=== PATIENT | female | born 1945 | race Caucasian/White ===

== ENCOUNTER → 2018-02-07 10:26 | Outpatient (CLI) | payer MEDICARE, MEDICAID, SELFPAY ==
[2018-02-07 11:43] LABS: Creatine Kinase 62 U/L (26-192)
[2018-02-07 11:50] LABS: Alanine Aminotransferase 19 U/L (12-78); Albumin Level 3.6 gm/dL (3.4-5.0); Albumin/Globulin Ratio 1.1 (1.1-1.8); Alkaline Phosphatase 76 U/L (46-116); Anion Gap 13.5 mEq/L (5-15); Aspartate Amino Transferase 15 U/L (15-37); Bilirubin,Total 0.4 mg/dL (0.2-1.0); Blood Urea Nitrogen 26 mg/dL (7-18); Calcium 8.5 mg/dL (8.5-10.1); Carbon Dioxide 26 mmol/L (21.0-32.0); Chloride 106 mmol/L (98-107); Chol/HDL Ratio 6.1 (1-3.5); Cholesterol 207 mg/dL (140-200); Creatinine,Serum 0.91 mg/dL (0.55-1.02); Estimated Glomerular Filt Rate 61 ml/min (>60); GFR (African American) 73 ML/MIN (>60); Globulin 3.3 gm/dl (1.3-3.2); Glucose 112 mg/dL (74-106); HDL Cholesterol 34 mg/dL (29-89); LDL Cholesterol 143 mg/dL (0-130); Potassium 4.5 mmoL/L (3.5-5.1); Sodium 141 mmol/L (136-145); Total Protein,Serum 6.9 gm/dL (6.4-8.2); Triglycerides 150 mg/dL (30-200); Uric Acid 8.5 mg/dL (2.6-7.2); VLDL Cholesterol 30 mg/dL (0-40)
[2018-02-07 13:13] LABS: Erythrocyte Sedimentation Rate 15 mm/hr (0-30)
[2018-02-08 18:13] LABS: RA Latex Turbid. <10.0 IU/mL (0.0-13.9)
[2018-02-11 09:02] LABS: Antinuclear Antibodies, IFA Negative (.)
== END ==
PROVIDERS: Visit Provider Family Medicine
DX: E03.9 Hypothyroidism, unspecified (principal); I10 Essential (primary) hypertension; M19.90 Unspecified osteoarthritis, unspecified site
CPT/HCPCS: 36415; 80053; 80061; 82550; 84436; 84443; 84550; 85651; 86038; 86431

== ENCOUNTER → 2018-03-10 12:50 | Outpatient (CLI) | payer MEDICARE, MEDICAID, SELFPAY ==
[2018-03-10 13:58] LABS: Basophils % 0.6 % (0.1-2.0); Eosinophils # 0.4 K/mm3 (0.0-0.4); Eosinophils % 7.1 % (0.1-12.0); Hematocrit 39.6 % (37.0-47.0); Hemoglobin 12.5 g/dL (12.2-16.2); Lymphocytes # 1.8 K/mm3 (0.7-4.5); Lymphocytes % 32.2 K/mm3 (10-50); Mean Corpuscular HGB Conc 31.7 g/dL (31.8-35.4); Mean Corpuscular Hemoglobin 26.9 pg (27.0-31.2); Mean Corpuscular Volume 84.8 fl (81-99); Mean Platelet Volume 8.9 fl (7.4-10.4); Monocytes # 0.3 K/mm3 (0.1-1.0); Monocytes % 6.1 % (1.7-9.3); Neutrophils # 2.9 K/mm3 (1.8-7.8); Platelet Count 172 K/mm3 (142-424); Red Blood Count 4.67 M/mm3 (4.20-5.40); Red Cell Distribution Width 16.3 % (11.5-17.5); White Blood Count 5.5 K/mm3 (4.8-10.8)
[2018-03-10 13:59] LABS: Alanine Aminotransferase 23 U/L (12-78); Albumin Level 3.8 gm/dL (3.4-5.0); Albumin/Globulin Ratio 1.2 (1.1-1.8); Alkaline Phosphatase 72 U/L (46-116); Anion Gap 10.7 mEq/L (5-15); Aspartate Amino Transferase 16 U/L (15-37); Bilirubin,Total 0.5 mg/dL (0.2-1.0); Blood Urea Nitrogen 15 mg/dL (7-18); Calcium 9.1 mg/dL (8.5-10.1); Carbon Dioxide 29 mmol/L (21.0-32.0); Chloride 107 mmol/L (98-107); Creatinine,Serum 0.86 mg/dL (0.55-1.02); Estimated Glomerular Filt Rate 65 ml/min (>60); GFR (African American) 78 ML/MIN (>60); Globulin 3.1 gm/dl (1.3-3.2); Glucose 102 mg/dL (74-106); Potassium 4.7 mmoL/L (3.5-5.1); Sodium 142 mmol/L (136-145); Total Protein,Serum 6.9 gm/dL (6.4-8.2)
[2018-03-10 14:54] LABS: Erythrocyte Sedimentation Rate 12 mm/hr (0-30)
[2018-03-11 15:28] LABS: Sjogren's Anti-SS-A <0.2 AI (0.0-0.9)
[2018-03-12 16:50] LABS: Antinuclear Antibodies, IFA Negative (.); RA Latex Turbid. <10.0 IU/mL (0.0-13.9); Sjogren's Anti-SS-B <0.2 AI (0.0-0.9)
== END ==
DX: R68.2 Dry mouth, unspecified (principal); K12.1 Other forms of stomatitis
CPT/HCPCS: 36415; 80053; 85025; 85651; 86038; 86235; 86431

== ENCOUNTER → 2018-11-07 15:35 | Outpatient (CLI) | payer MEDICARE, MEDICAID, SELFPAY ==
--- NOTE | 2018-11-07 15:43 | XR_ITS ---
EXAM: XR lumbar spine min 4V HISTORY: Low back pain ITS.REASON: L LUMBAR RADICULOPATHY ORDERING PHYSICIAN: Ted Matute MD PATIENT AGE: 73 years COMPARISON: 03/03/2009 FINDINGS: Mild levoscoliosis. There is degenerative disc disease from T12 to S1 at every level. Facet arthritic changes are present from L3 to S1. No acute fracture or dislocation evident. No lytic or blastic change. There is mild anterolisthesis of L5 on S1 of 9 mm. 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 IMPRESSION: Levoscoliosis with multilevel degenerative disc disease and facet arthritic change. These degenerative changes have progressed when compared to the previous exam. Tortuous and ectatic calcified splenic artery
--- NOTE | 2018-11-07 15:43 | XR_ITS ---
XR hip LT 2-3V w/pelvis HISTORY: ITS.REASON: L HIP PAIN ORDERING PHYSICIAN: Tde Matute MD PATIENT AGE: 73 years COMPARISON: None FINDINGS: Osteoarthritic changes involving both hips more severe on the right compared to left as seen on the AP view of the pelvis. There is a small sclerotic focus along the left ilium laterally at 10 mm possibly due to bone island. IMPRESSION: 1. No acute finding. 2. Osteoarthritic changes of the hips right more severe than left
== END ==
PROVIDERS: PCP Family Medicine; Visit Provider Family Medicine
DX: M54.16 Radiculopathy, lumbar region (principal)
CPT/HCPCS: 72110; 73502

== ENCOUNTER → 2018-11-20 11:59 | Outpatient (POV) | payer MEDICARE, MEDICAID, SELFPAY | PROVIDERS: Visit Provider Dentist | DX: Z00.00 Encounter for general adult medical examination without abnormal findings (principal) ==

== ENCOUNTER 2019-01-01 10:00 | Outpatient (RCR) | payer MEDICARE, MEDICAID, SELFPAY ==
--- NOTE | 2018-11-19 16:23 | HMH.PTOPEV ---
PT Outpatient Evaluation Rehab PT Outpatient Evaluation Start: 11/19/18 16:03 Freq: Status: Active Protocol: Document 11/19/18 16:03 TRISH (Rec: 11/19/18 16:18 PHORNE [id number]) Electronically Signed By Reno Ann, PT 11/19/18 16:03 Outpatient Therapy Subjective History Subjective History Pt is a 73 yowf with complaints of LBP. Pt reports pain began years ago for seemingly no reason and has gotten worse. Pt reports pain in the low back that shoots into BLEs L>R. Pt states pain is 2/10 at the moment, 2/10 at best and 10/10 at worst. Pain is dull and throbs from the low back into B feet. Pain is increased with all movements and decreased with rest and heat. Past surgeries include hysterectomy, rectal repair, sinus surgery, R TKA, bladder surgery and L knee torn ligament. Comorbidities include RA, osteoarthritis, history of breast cancer, and splenic aneurism. Pt demonstrates pain and swelling in BLEs. Chief Complaint Pain Symptom Type Throb Dull Numbness Symptoms Relieved By Rest/Positioning Heat Symptoms Aggravated By Prone Sitting Standing Bending/Stooping Physical Activity Twisting Walking Lifting Prior Functional Limitations Housework Sleeping Standing Sitting Recreation Activity Walking Stairs Balance Current Functional Limitations Housework Driving Sleeping Standing Sitting Squatting Recreation Activity
== END 2019-01-01 10:05 | disposition home or self-care (01) ==
LOC: PT 10:00
PROVIDERS: Visit Provider Family Medicine
DX: M54.16 Radiculopathy, lumbar region (principal)
CPT/HCPCS: 97010; 97033; 97110; 97140; 97163

== ENCOUNTER → 2019-02-17 12:59 | Outpatient (POV) | payer MEDICARE, MEDICAID, SELFPAY | PROVIDERS: Visit Provider Dermatology | DX: Z00.00 Encounter for general adult medical examination without abnormal findings (principal) ==

== ENCOUNTER → 2019-04-17 06:35 | Outpatient (CLI) | payer MEDICARE, MEDICAID, SELFPAY ==
--- NOTE | 2019-04-17 | CA_ITS ---
APPROVED REPORT Exam: Pharmacologic Technologist: Daya Canales, Ht: 5 ft 3 in Wt: 224 lbs BSA: 2.03 m2 HR: 47 bpm BP: 186/69 mmHg Medical History Medical History: CHEST PAIN,SOA,FATIGUE Medications: DITILAZEM,MOBIC,NADOLOL,LEVOTHYROXINE,ASA,ZYRTEC Allergies: NSAIDS,KEFELX,PAXIL,PCN,REGLAN Cardiac Risk Factors: HTN,FAMILY HX Stress Test Details Test: LEXISCAN HR Resting HR: 46 bpm Max Heart Rate (APMHR): 146 bpm Max HR Achieved: 61 bpm Target HR (85% APMHR): 124 bpm % of APMHR: 41 Recovery HR: 58 bpm BP Resting BP: 183/69 mmHg Max BP: 186/83 mmHg Recovery BP: 162.0/74.0 mmHg ECG Resting ECG: SINUS ANNA Clinical Exercise duration: 04:02 min Highest Stage Achieved: Exercise capacity: 1.0 METs Stress ECG Conclusion LEXISCAN PORTION COMPLETED. C/O STOMACH CRAMPS DURING PEAK INFUSION. NO CHEST PAIN OR SOA. STOMACH CRAMPS RESOLVED IN RECOVERY. OCCASIONAL PVC. OCCASIONAL PAC. LESS THAN 1.5MM ST DEPRESSION. IMAGES TO FOLLOW Electronically signed by : Harshal Alvarez, 04/17/2019 18:00:13
--- NOTE | 2019-04-17 06:42 | NM_ITS ---
APPROVED REPORT Exam: Nuclear Stress Test Indication: C.P., SOB, FATIQUE, FM HX, HTN Patient Location: C.P., SOB, FATIQUE, HTN, FM HX, Stress Tech: Carolee Canales [place] Tech:Nesha WellerRANDI hicks RT (R)(N)(M) Ht: 5 ft 3 in Wt: 224 lbs BSA: 2.03 m2 HR: 47 bpm BP: 186/69 mmHg BMI: 39.6 History: C.P., SOB, FATIQUE, FM HX, HTN Procedure: Patient received a 0.4 mg of intravenous Lexiscan, resting heart rate 47 bpm, resting blood pressure 186/69 mmHg, with Lexiscan maximum heart rate achived was 60 bpm which is Less than 85% % of the maximum predicted heart rate and blood pressure was 186/83 mmHg. With Lexiscan, patient denied any complaint of chest pain. Electrocardiogram Sinus rhythm, with Lexiscan there is less than 1.[address] segment depression noted from the baseline EKG. The EKG portion of the Lexiscan Myoview is nondiagnostic. Cardiac Stress and Resting SPECT Images: Cardiac Stress and Resting SPECT images were obtained using technetium 99m Myoview 29.4 mCi stress and 10.24 mCi at rest. Gated SPECT with analysis of segmental wall motion and calculation of the ejection fraction also done. Cardiac stress and resting SPECT images show a mild fixed defect in the anterior wall with normal perfusion of the apex and normal contractility on the gated SPECT is likely secondary to soft tissue attenuation, no reversible ischemia seen. Computer derived ejection fraction is 64% with no regional wall motion abnormality, right ventricle is normal size and contractility. Conclusion: 1. The EKG portion of the Lexiscan Myoview is nondiagnostic. 2. No scintigraphic evidence of reversible ischemia seen, a fixed defect in the anterior wall with normal perfusion of the apex and normal contractility and the gated SPECT is likely secondary to soft tissue attenuation. Computer derived ejection fraction is 64% with no regional wall motion abnormality, right ventricle is normal size and contractility. 3. Likely normal Lexiscan Myoview study. Electronically signed by : Harshal Alvarez, 04/17/2019 13:26:43
== END ==
PROVIDERS: PCP Family Medicine; Visit Provider Family Medicine
DX: R07.2 Precordial pain (principal)
CPT/HCPCS: 78452; 93017; A9502; J2785

== ENCOUNTER → 2019-05-15 10:25 | Outpatient (CLI) | payer MEDICARE, MEDICAID, SELFPAY ==
--- NOTE | 2019-05-15 10:27 | MM_ITS ---
PROCEDURE: MM DIG SCREENING MAMM BI W/CAD Patient Age:74Y CLINICAL INDICATION: SCREENING. No hormones but no new complaints. Noncontributory family history Previous excisional benign biopsy at the left breast. Scar beneath left breast, along the inferior left breast COMPARISON: [facility] DIG MAMM-SCREEN CONTRERAS from 03/13/2013 [facility] DIG MAMM-SCREEN CONTRERAS from 05/13/2014 [facility] DIG MAMM-SCREEN CONTRERAS from 05/18/2015 [facility] DIG MAMM-SCREEN CONTRERAS from 05/22/2016 TECHNIQUE: Standard CC and MLO images were obtained. R2 CAD reviewed. FINDINGS: Mild to moderate residual fibroglandular elements bilaterally extend towards upper-outer quadrant vascular calcifications bilateral. Right breast. Stable but follow-up 1 year recommended Left breast. Stable. No new areas of concern. Stable left axillary lymph node pattern Bilateral follow-up 1 year recommended IMPRESSION: Stable bilateral mammogram. No new areas of concern but follow-up 1 year recommended BI-RAD Category: 1 Negative FOLLOW-UP: 1YR 1 Year Follow-up (A letter has been sent to the patient regarding results of the study.) Dictated by: Primitivo Shelton MD 05/18/2019 16:00 Electronically signed by Primitivo Shelton MD in [place] 05/18/2019 16:00
== END ==
PROVIDERS: PCP Family Medicine; Visit Provider Family Medicine
DX: Z12.31 Encounter for screening mammogram for malignant neoplasm of breast (principal)
CPT/HCPCS: 77067

== ENCOUNTER → 2020-02-02 14:06 | Outpatient (CLI) | payer MEDICARE, MEDICAID, SELFPAY ==
--- NOTE | 2020-02-02 14:12 | CA_ITS ---
APPROVED REPORT EXAM: Comprehensive 2D, Doppler, and color-flow Echocardiogram Envelope Adjuster: Maday Acuna RDCS Ht: 5 ft 2 in Wt: 220lbs BSA: 1.99 BP: 130/74 mmHg Indications: MURMUR,PRE-OP,HTN,SOA TDS-PT UNABLE TO LAY ON SIDE 2D Dimensions LVOT 1.67 cm (M/F) 1.5-2.5 M-Mode Dimensions RVDd 3.48 cm (0.9-2.6) LVDd 4.64 cm (3.5-5.7) LVDs 3.22 cm (3.5-5.7) IVSd 1.47 cm (0.6-1.1) PWd 1.16 cm (0.6-1.1) EF (Teich) 58.10% FS 30.60% EDV (Teich) 99.30 mL ESV (Teich) 41.60 mL LV Diastology E/A Ratio 1.02 Aortic Valve LVOT Max 175.00 (70-110 cm/s) LVOT VTI 45.33 cm Mitral Valve MV A Velocity 90.00 (40-130 cm/s) Left Ventricle Left atrium is mildly enlarged, left ventricle is normal size, mild concentric left ventricular hypertrophy, visually estimated ejection fraction 55% with no regional wall motion abnormality, diastolic parameters are inconclusive. Right Ventricle Right atrium and right ventricular mildly enlarged with normal contractility. Aortic Valve Aortic valve is thickened and calcified leaflet chordae display mobility, the mean gradient across valve is 15 mmHg, valve area 1.5 cm??? represents mild aortic stenosis. There is no significant aortic insufficiency seen. Mitral Valve Mitral valve leaflets are minimally thickened, there is mild mitral regurgitation. Tricuspid Valve Tricuspid valve is grossly normal, there is mild tricuspid regurgitation, tricuspid regurgitation jet velocity is inadequate for calculation of the right ventricular systolic pressure. Pulmonic Valve Pulmonic valve is poorly visualized. Great Vessels Aortic root is normal size. Pericardium No significant pericardial effusion noted. Conclusion 1. Mildly enlarged left atrium, normal left ventricular size, mild concentric left ventricular hypertrophy, visually estimated ejection fraction 55% with no regional wall motion abnormality, diastolic parameters are inconclusive. 2. Thickened and calcified aortic valve with mild aortic stenosis, valve area is 1.5 cm???. There is no significant aortic insufficiency seen. 3. Mild mitral and tricuspid regurgitation. 4. No significant pericardial effusion noted. Electronically signed by : Harshal Alvarez, 02/02/2020 22:32:22
--- NOTE | 2020-02-02 14:12 | XR_ITS ---
PROCEDURE: XR CHEST 2V CLINICAL HISTORY: HTN COMPARISON: CXR CHEST(2 VIEWS-NOT PORTABLE) from 05/01/2014 FINDINGS: Heart enlarged and the lung roper are clear. There is mild degenerative scoliosis. Soft tissues are intact. IMPRESSION: Mild degenerative thoracic scoliosis, clear lung roper, cardiomegaly Dictated by: Juno Riley 02/02/2020 15:02 Electronically signed by Juno Riley in [place] 02/02/2020 15:02
--- NOTE | 2020-02-02 15:06 | ECG_ITS ---
APPROVED REPORT Exam: Resting ECG HR:52 bpm ECG Measurements Heart Rate 52 AXES IN 142 P -6 QRSd 78 QRS 1 QT 468 T 31 QTc 435 <Conclusion> Sinus bradycardia Late R-wave progression, previously noted Abnormal ECG Electronically signed by : Lance Santillan, 02/08/2020 12:07:54
[2020-02-02 15:32] LABS: Basophils # 0.1 K/mm3 (0-0.2); Basophils % 0.9 % (0.1-2.0); Eosinophils # 0.3 K/mm3 (0.0-0.4); Eosinophils % 4.4 % (0.1-12.0); Hematocrit 38.3 % (37.0-47.0); Hemoglobin 12.5 g/dL (12.2-16.2); Lymphocytes % 26.4 % (10-50); Mean Corpuscular HGB Conc 32.7 g/dL (31.8-35.4); Mean Corpuscular Hemoglobin 27.7 pg (27.0-31.2); Mean Corpuscular Volume 84.7 fl (81-99); Mean Platelet Volume 9.3 fl (7.4-10.4); Monocytes # 0.4 K/mm3 (0.1-1.0); Monocytes % 4.8 % (1.7-9.3); Neutrophils # 4.8 K/mm3 (1.8-7.8); Neutrophils % 63.6 % (37.0-80.0); Platelet Count 180 K/mm3 (142-424); Red Blood Count 4.52 M/mm3 (4.20-5.40); Red Cell Distribution Width 15.6 % (11.5-17.5); White Blood Count 7.5 K/mm3 (4.8-10.8)
[2020-02-02 15:48] LABS: Prothrombin Time 11.2 seconds (9.4-11.8)
[2020-02-02 15:49] LABS: Activated Partial Thrombo Time 23.6 seconds (23.6-34.0)
[2020-02-02 16:04] LABS: Alanine Aminotransferase 12 U/L (12-78); Albumin Level 4.1 g/dl (3.5-5.0); Albumin/Globulin Ratio 1.4 (1.1-1.8); Alkaline Phosphatase 81 U/L (38-126); Anion Gap 11.1 mEq/L (5-15); Aspartate Amino Transferase 20 U/L (14-36); Bilirubin,Total 0.7 mg/dl (0.2-1.3); Blood Urea Nitrogen 23 mg/dl (7-17); Calcium 9.9 mg/dl (8.4-10.2); Carbon Dioxide 29 mmol/L (22.0-30.0); Chloride 101 mmol/L (98-107); Estimated Glomerular Filt Rate 54 ml/min (>60); GFR (African American) 66 ML/MIN (>60); Globulin 2.9 g/dL (1.3-3.2); Glucose 111 mg/dl (74-100); Potassium 4.1 mmoL/L (3.5-5.1); Sodium 137 mmol/L (136-145)
[2020-02-02 16:21] LABS: T4 (Thyroxine) 9.9 ug/dl (5.53-11.0)
[2020-02-02 16:34] LABS: Thyroid Stimulating Hormone 1.21 uIU/mL (0.465-4.68)
== END ==
PROVIDERS: PCP Family Medicine; Visit Provider Family Medicine
DX: Z01.818 Encounter for other preprocedural examination (principal); R01.1 Cardiac murmur, unspecified; Z79.899 Other long term (current) drug therapy; Z51.81 Encounter for therapeutic drug level monitoring
CPT/HCPCS: 36415; 71046; 80053; 84436; 84443; 85025; 85610; 85730; 93005; 93306

== ENCOUNTER 2020-02-27 08:19 | Inpatient (IN) | payer MEDICARE, MEDICAID, SELFPAY ==
[2020-02-27] VITALS (9 sets, daily range): BP systolic 131–191; BP diastolic 50–75; PULSE 60–90; RESP 18–19; TEMP 36.6–37.8; O2SAT 90–97; BMI 38.9; BMI 39.4
--- NOTE | 2020-02-27 08:25 | PC.NURSE ---
Pt to restroom upon arrival to ED.
[2020-02-27 08:53] LABS: Basophils # 0.1 K/mm3 (0-0.2); Basophils % 0.7 % (0.1-2.0); Eosinophils # 0.1 K/mm3 (0.0-0.4); Eosinophils % 1.4 % (0.1-12.0); Hematocrit 37.9 % (37.0-47.0); Hemoglobin 12.4 g/dL (12.2-16.2); Lymphocytes # 1.1 K/mm3 (0.7-4.5); Lymphocytes % 12.3 % (10-50); Mean Corpuscular HGB Conc 32.8 g/dL (31.8-35.4); Mean Corpuscular Hemoglobin 27.9 pg (27.0-31.2); Mean Platelet Volume 9.4 fl (7.4-10.4); Monocytes # 0.5 K/mm3 (0.1-1.0); Monocytes % 5.6 % (1.7-9.3); Neutrophils # 7.2 K/mm3 (1.8-7.8); Neutrophils % 79.9 % (37.0-80.0); Platelet Count 156 K/mm3 (142-424); Red Blood Count 4.46 M/mm3 (4.20-5.40); Red Cell Distribution Width 15.5 % (11.5-17.5)
[2020-02-27 08:57] LABS: Chloride 101 mmol/L (98-107); Sodium 138 mmol/L (136-145)
--- NOTE | 2020-02-27 08:57 | HMH.EDGENADL ---
ED Disposition Clinical Impression: Weakness Community acquired pneumonia Qualifiers: Laterality: right Lung location: lower lobe of lung Qualified Code(s): J18.9 - Pneumonia, unspecified organism Vomiting Qualifiers: Vomiting type: unspecified Vomiting Intractability: non-intractable Nausea presence: with nausea Qualified Code(s): R11.2 - Nausea with vomiting, unspecified Disposition: Admitted as Observation Condition on Discharge: [facility] - Critical Care Critical Care Time: No Attestation: On 02/27/20, the high probability of a clinically significant, sudden or life threatening deterioration of the following system(s) required my full and direct attention, intervention and personal management. The time I documented below is in addition to time spent performing reported procedures but includes the following listed in this critical care notation. Medical Decision Making - [place] Inquiry Pt receiving controlled substance: No Vital Signs: 02/27/20 08:20 02/27/20 08:57 02/27/20 09:29 Temperature 100.1 F H Temperature Source Oral Pulse Rate Pulse Rate [Left Radial] 90 64 71 Respiratory Rate 18 Blood Pressure Blood Pressure [Right Arm] 191/75 H 140/50 L 146/55 H Blood Pressure Mean [Right Arm] 113 80 85 Blood Pressure Source [Right Arm] Automatic Cuff Automatic Cuff Blood Pressure Position Blood Pressure Position [Right Arm] Sitting Sitting Sitting 02 Sat by Pulse Oximetry 90 L 95 94 L Oxygen Delivery Method Room Air Room Air Room Air Oxygen Flow Rate (LPM) 02/27/20 10:13 02/27/20 10:33 02/27/20 14:00 Temperature Temperature Source Pulse Rate Pulse Rate [Left Radial] 64 64 Respiratory Rate Blood Pressure Blood Pressure [Right Arm] 137/53 L 162/63 H Blood Pressure Mean [Right Arm] 81 96 Blood Pressure Source [Right Arm] Automatic Cuff Automatic Cuff Blood Pressure Position Blood Pressure Position [Right Arm] Sitting Sitting 02 Sat by Pulse Oximetry 97 95 Oxygen Delivery Method Nasal Cannula Nasal Cannula Oxygen Flow Rate (LPM) 2 2 02/27/20 14:31 Temperature 98 F Temperature Source Oral Pulse Rate 78 Pulse Rate [Left Radial] Respiratory Rate 18 Blood Pressure 162/72 H Blood Pressure [Right Arm] Blood Pressure Mean [Right Arm] Blood Pressure Source [Right Arm] Blood Pressure Position Sitting Blood Pressure Position [Right Arm] 02 Sat by Pulse Oximetry Oxygen Delivery Method Nasal Cannula Oxygen Flow Rate (LPM) 2 - Lab Data Lab Results 02/27/20 08:40: WBC 9.0, RBC 4.46, Hgb 12.4, Hct 37.9, MCV 85.0, MCH 27.9, MCHC 32.8, RDW 15.5, Plt Count 156, MPV 9.4, Neut % (Auto) 79.9, Lymph % (Auto) 12.3, [place] % (Auto) 5.6, Eos % (Auto) 1.4, Baso % (Auto) 0.7, Neut # (Auto) 7.2, Lymph # (Auto) 1.1, [place] # (Auto) 0.5, Eos # (Auto) 0.1, Baso # (Auto) 0.1 02/27/20 08:40: Sodium 138, Potassium 4.2, Chloride 101, Carbon Dioxide 28, Anion Gap 13.2, BUN 22 H, Creatinine 0.80, Estimated Creat Clear 77, Estimated GFR 70, Est GFR ( Amer) 85, Glucose 127 H, Calcium 9.3, Total Bilirubin 0.7, AST 20, ALT 14, Alkaline Phosphatase 74, Total Protein 7.0, Albumin 4.0, Globulin 3.0, Albumin/Globulin Ratio 1.3 02/27/20 08:40: Lactate 1.0 02/27/20 08:40: SARS-CoV-2 IgG Ab (Rapid) Negative, SARS-CoV-2 IgM Ab (Rapid) Negative 02/27/20 09:47: Urine Color Yellow, Urine Appearance Clear, Urine pH 6.0, Ur Specific [place] 1.020, Urine Protein Negative, Urine Glucose (UA) Negative, Urine Ketones Negative, Urine Blood Trace-i, Urine Nitrate Positive, Urine Bilirubin Negative, Urine Urobilinogen 0.2, Ur Leukocyte Esterase Trace, Urine RBC 3-5, Urine WBC 3-5, Ur Squamous Epith Cells Occasional, Urine Bacteria 1+ 02/27/20 10:45: Chlamy pneumoniae PCR Not detected, Adenovirus (PCR) Not detected, B. pertussis DNA (PCR) Not detected, Coronavirus OC43 (PCR) Not detected, Coronavirus HKU1 (PCR) Not detected, Coronavirus 229E (PCR) Not detected, COVID-19 PCR Not detected, Coronavirus NL63 (PCR) N
[2020-02-27 08:58] LABS: Potassium 4.2 mmoL/L (3.5-5.1)
[2020-02-27 09:00] LABS: Alanine Aminotransferase 14 U/L (12-78); Albumin/Globulin Ratio 1.3 (1.1-1.8); Alkaline Phosphatase 74 U/L (38-126); Anion Gap 13.2 mEq/L (5-15); Aspartate Amino Transferase 20 U/L (14-36); Bilirubin,Total 0.7 mg/dl (0.2-1.3); Blood Urea Nitrogen 22 mg/dl (7-17); Calcium 9.3 mg/dl (8.4-10.2); Carbon Dioxide 28 mmol/L (22.0-30.0); Creatinine Clearance Estimated 77 mL/min (50-200); Estimated Glomerular Filt Rate 70 ml/min (>60); GFR (African American) 85 ML/MIN (>60); Glucose 127 mg/dl (74-100)
--- NOTE | 2020-02-27 09:03 | PC.NURSE ---
Pt's urine and stool sample mixed together, will attempt to collect again later.
--- NOTE | 2020-02-27 09:13 | ECG_ITS ---
APPROVED REPORT Exam: Resting ECG HR:68 bpm ECG Measurements Heart Rate [address] 160 P 33 QRSd 80 QRS -10 QT 428 T 26 QTc 455 <Conclusion> Normal sinus rhythm Nonspecific ST abnormality Abnormal ECG Electronically signed by : Lance Santillan, 02/27/2020 16:51:24
--- NOTE | 2020-02-27 09:15 | XR_ITS ---
PROCEDURE: XR CHEST PORTABLE CLINICAL INDICATION: cough, cp, fever COMPARISON: CXR CHEST(2 VIEWS-NOT PORTABLE) from 05/01/2014 XR CHEST 2V from 02/02/2020 FINDINGS: There is mild cardiomegaly without failure. There is increased density in the right lung base suggesting atelectasis or infiltrate. Upper lobes are clear. Degenerative changes are present in the shoulders. IMPRESSION: Right basilar atelectasis or infiltrate. Dictated by: Ghassan Beth MD 02/27/2020 09:46 Electronically signed by Ghassan Beth MD in [place] 02/27/2020 09:46
--- NOTE | 2020-02-27 09:36 | PC.NURSE ---
Rad at bedside
[2020-02-27 09:45] LABS: Coronavirus 19 IgG Antibody Negative (Negative); Coronavirus 19 IgM Antibody Negative (Negative)
[2020-02-27 09:54] LABS: Microscopic, Urine URINE MICROSCOPIC (MICROSCOPIC)
[2020-02-27 09:56] LABS: Appearance,Urine CLEAR (Clear); Bilirubin,Urine Negative (Negative); Blood, Urine TRACE-I (Negative); Color,Urine YELLOW (Yellow); Glucose,Urine (UA) Negative (Negative); Ketones,Urine Negative (Negative); Leukocyte Esterase,Urine TRACE (Negative); Nitrate,Urine POSITIVE (Negative); Protein,Urine Negative (Negative); Urobilinogen,Urine 0.2 EU/dl (0.2)
[2020-02-27 10:03] LABS: Bacteria,Urine 1+ /lpf; Squamous Epithelial Cell,Urine Occasional #/hpf (0-5)
--- NOTE | 2020-02-27 10:33 | PC.NURSE ---
Notified lab of inpatient covided swab as ordered per ER MD, spoke with sandra-asked if we have okayed this through house father. I stated we have not but I will contact her now and call back to the lab once I have spoken with yoselyn. contacted house father r/t okaying inpatient rapid covid swab as ordered per ER . travel information center supervisor okayed swab. Notified her we plan to admit pt, states she will get pt a tentative bed assignment and we will await swab results, I will notify her when swab is resulted. Notified lab that house has okayed covid swab.
--- NOTE | 2020-02-27 10:38 | PC.NURSE ---
Dr Ramos ley.
--- NOTE | 2020-02-27 10:43 | PC.NURSE ---
Dr Beasley returned call
[2020-02-27 10:49] LABS: Adenovirus,PCR Not Detected (NotDetected); Bordetella Pertussis Not Detected (NotDetected); Chlamydophila Pneumoniae, PCR Not Detected (NotDetected); Coronavirus 19, PCR Not Detected (NotDetected); Coronavirus 229E Not Detected (NotDetected); Coronavirus NL63 Not Detected (NotDetected); Coronavirus OC43 Not Detected (NotDetected); Coronovirus HKU1,PCR Not Detected (NotDetected); Human Metapneumovirus Not Detected (NotDetected); Influenza A, PCR Not Detected (NotDetected); Influenza AH1, 2009 Not Detected (NotDetected); Influenza AH1, PCR Not Detected (NotDetected); Influenza AH3,PCR Not Detected (NotDetected); Influenza B, PCR Not Detected (NotDetected); Mycoplasma Pneumoniae, PCR Not Detected (NotDected); Parainfluenza 1, PCR Not Detected (NotDetected); Parainfluenza 2, PCR Not Detected (NotDetected); Parainfluenza 3, PCR Not Detected (NotDetected); Parainfluenza 4, PCR Not Detected (NotDetected); Respiratory Syncytial Virus Not Detected (NotDetected); Rhinovirus/Enterovirus Not Detected (NotDetected)
--- NOTE | 2020-02-27 10:49 | PC.NURSE ---
Pt to be admitted pending COVID results.
--- NOTE | 2020-02-27 11:07 | PC.NURSE ---
Pt has removed her own v/s monitors stating that the cuff hurts her too bad.
--- NOTE | 2020-02-27 16:02 | PC.NURSE ---
Pt was poor historian with med hx. Did pharm aware and update as well as possible with info given. Pt alert and oriented and resting in bed at this time. 02 on 2 L NC at this time. No complaints currently. CB in reach. MX continues.
--- NOTE | 2020-02-27 18:25 | PC.NURSE ---
Spoke with Dr. Beasley whom ordered am labs for cristiane am. Also gave orders to change diludid to prn, as well as methocarbamol and meclizine per mar to prn. Have sent to pharmacy. Pt continues on 2 L NC. Has refused teds. CB in reach. NAD at this time. Will cont to mx.
[2020-02-28] VITALS (8 sets, daily range): BP systolic 145–180; BP diastolic 69–90; PULSE 56–95; RESP 17–20; TEMP 36.5–36.8; O2SAT 90–96; BMI 39.2
--- NOTE | 2020-02-28 04:05 | PC.NURSE ---
A&OX4. PT TOLERATING 2LNC WELL T/O SHIFT. PT HAS HAD NO C/O NA/VO/DI T/O THIS SHIFT. PT HAS AMBULATED WELL TO AND FROM BATHROOM WITH STANDBY ASSIST. PT RESTING COMFORTABLY IN BED T/O MAJORITY OF SHIFT. VSS WILL CONTINUE TO MONITOR.
[2020-02-28 07:12] LABS: Basophils % 0.3 % (0.1-2.0); Eosinophils # 0.2 K/mm3 (0.0-0.4); Hematocrit 33.1 % (37.0-47.0); Lymphocytes # 1.1 K/mm3 (0.7-4.5); Lymphocytes % 21.1 % (10-50); Mean Corpuscular HGB Conc 32.5 g/dL (31.8-35.4); Mean Corpuscular Hemoglobin 27.4 pg (27.0-31.2); Mean Corpuscular Volume 84.3 fl (81-99); Mean Platelet Volume 9.3 fl (7.4-10.4); Monocytes # 0.3 K/mm3 (0.1-1.0); Monocytes % 5.4 % (1.7-9.3); Neutrophils # 3.6 K/mm3 (1.8-7.8); Neutrophils % 69.1 % (37.0-80.0); Platelet Count 115 K/mm3 (142-424); Red Blood Count 3.92 M/mm3 (4.20-5.40); Red Cell Distribution Width 15.6 % (11.5-17.5); White Blood Count 5.1 K/mm3 (4.8-10.8)
[2020-02-28 07:17] LABS: Hemoglobin 10.7 g/dL (12.2-16.2)
[2020-02-28 07:29] LABS: Chloride 106 mmol/L (98-107); Potassium 4.1 mmoL/L (3.5-5.1); Sodium 139 mmol/L (136-145)
[2020-02-28 07:32] LABS: Anion Gap 10.1 mEq/L (5-15); Blood Urea Nitrogen 17 mg/dl (7-17); Calcium 8.7 mg/dl (8.4-10.2); Carbon Dioxide 27 mmol/L (22.0-30.0); Creatinine Clearance Estimated 77 mL/min (50-200); Estimated Glomerular Filt Rate 70 ml/min (>60); GFR (African American) 85 ML/MIN (>60); Glucose 114 mg/dl (74-100)
--- NOTE | 2020-02-28 09:06 | HMH.HP ---
*Admission Date: 02/27/20 *Chief complaint: vomiting and weakness *History of present illness: Lian is a 75-year-old white female who started 2 nights ago with nausea and vomiting with some diffuse abdominal pain. No diarrhea. She went to bed that night and rested fairly well but when she awoke yesterday morning she remained nauseated and was very weak and had difficulty getting around. At that point she had her family bring her to the hospital. She was evaluated in the ER. Labs were fairly unremarkable. Chest x-ray showed an area of atelectasis versus early pneumonia. COVID testing was negative. She was subsequently admitted for IV hydration and IV antibiotics. At the time of my exam this morning she still feels weak. She has had no further vomiting since admission and has been able to tolerate her diet. She complains of some pain in her right knee which limits her activity but this is been a chronic issue. [facility] History Medical History: Reports:: Aneurysm (of splenic artery), Anxiety, Arrhythmia, Cancer (skin), Heart Murmur, Kidney Stones Denies:: Atherosclerotic Heart Disease, Diabetes Mellitus Type 1, Diabetes Mellitus Type 2, MRSA *Have you ever received a pneumonia vaccine?: No *Have you received a flu vaccine this season?: No Other Medical History: Reports: Arthritis, Hypothyroidism, Other (Multiple medication allergies; Narcolepsy) Laterality Cases: Right: Total Knee Replacement (2007), Bilateral: Carpal Tunnel Release Other Surgeries: Yes: Cholecystectomy, Hysterectomy-Total, Other (sinus surgery 2011; bladder suspension) - *Social History Last grade of school completed: High school graduate Smoking Status: Never smoker Alcohol Intake: never *Occupational Status:: disabled Housing: other *Travel in the last 8 weeks: None - Psychiatric History Pschychiatric History:: Reports:: Anxiety Family Hx:: Coronary Artery Disease Review of Systems - Constitutional Reports daytime sleepiness, Denies body ache(s), Denies weight loss - Eyes Denies blurry vision, Denies change in vision - ENT Reports nasal obstruction (Follows with ENT for chronic sinus problems), Denies hearing loss - *Cardiovascular Reports chest pain at rest (History of normal stress test Apr 2019; recent echo with minor findings), Denies chest pain with activity, Denies generalized swelling, Denies shortness of breath when lying down - *Respiratory Reports cough, Denies coughing up blood - *Gastrointestinal Reports other (See HPI) - *Genitourinary Denies abnormal vaginal bleeding, Denies painful urination, Denies urinary incontinence - *Musculoskeletal Reports joint pain, Denies body aches - Integumentary/Breasts Denies hair loss, Denies skin ulcer - *Neurologic Reports dizziness, Reports weakness, Denies memory loss, Denies seizure-like activity - Psychiatric Reports abnormal sleep pattern, Reports lack of enjoyment - Endocrine Denies cold intolerance - Hematologic/Lymphatic Reports easy bruising - Allergic/Immunologic Reports seasonal runny nose Meds Home Medications Medication Instructions Recorded Confirmed Type aspirin 81 mg tablet,delayed 81 mg PO DAILY 02/16/20 02/27/20 History release cetirizine 10 mg capsule 10 mg PO DAILY cap 02/16/20 02/27/20 History diltiazem HCl 180 mg 180 mg PO DAILY 02/16/20 02/27/20 History capsule,extended release 24 hr furosemide 20 mg tablet 20 mg PO DAILY PRN 02/16/20 02/27/20 History hydrochlorothiazide 25 mg tablet 25 mg PO DAILY PRN 02/16/20 02/27/20 History hydromorphone 2 mg tablet 2 mg PO Q4H PRN 02/16/20 02/27/20 History levothyroxine 25 mcg tablet 25 mcg PO DAILY 02/16/20 02/27/20 History meclizine 25 mg tablet 25 mg PO TIDP PRN 02/16/20 02/28/20 History meloxicam 15 mg tablet 15 mg PO DAILY 02/16/20 02/27/20 History nadolol 80 mg tablet 80 mg PO DAILY 02/16/20 02/27/20 History sertraline 100 mg tablet 100 mg PO DAILY 02/16/20 02/27/20 History Allergies Allergy/Adv
--- NOTE | 2020-02-28 11:20 | P.CONPHA_ITS ---
[facility] Pharmacy VTE Monitoring - Patient Demographics Admission date: 02/28/20 Report Date: 02/28/20 Time: 11:20 Allergies/Adverse Reactions: Patient Allergies pseudoephedrine Allergy (Severe, Verified 02/16/20 14:45) Difficulty Breathing azithromycin Allergy (Unknown, Verified 02/16/20 14:45) Unknown allergy reaction Cephalosporins Allergy (Unknown, Verified 02/16/20 14:45) Gastrointestinal Upset chocolate flavor Allergy (Unknown, Verified 02/16/20 14:45) Unknown allergy reaction clarithromycin Allergy (Unknown, Verified 02/16/20 14:45) Unknown allergy reaction erythromycin base Allergy (Unknown, Verified 02/16/20 14:45) Rash guaifenesin Allergy (Unknown, Verified 02/16/20 14:45) Unknown allergy reaction montelukast Allergy (Unknown, Verified 02/16/20 14:45) Numbness nabumetone [From Relafen] Allergy (Unknown, Verified 02/16/20 14:45) Rash nitrofurantoin Allergy (Unknown, Verified 02/16/20 14:45) Unknown allergy reaction NSAIDS (Non-Steroidal Anti-Inflamma Allergy (Unknown, Verified 02/16/20 14:45) Unknown allergy reaction Penicillins Allergy (Unknown, Verified 02/16/20 14:45) Unknown allergy reaction prednisone Allergy (Unknown, Verified 02/16/20 14:45) Unknown allergy reaction Sulfa (Sulfonamide Antibiotics) Allergy (Unknown, Verified 02/16/20 14:45) Unknown allergy reaction clindamycin Adverse Reaction (Unknown, Verified 02/16/20 14:45) Gastrointestinal Upset codeine Adverse Reaction (Unknown, Verified 02/16/20 14:45) Gastrointestinal Upset doxycycline Adverse Reaction (Unknown, Verified 02/16/20 14:45) MAKES THE BACKS OF EYES HURT fexofenadine [From Sudha] Adverse Reaction (Unknown, Verified 02/16/20 14:45) INFLAMED INSIDE OF NOSE fluticasone [From Advair Diskus] Adverse Reaction (Unknown, Verified 02/16/20 14:45) HURTS IN THE INSIDE OF NOSE imipramine Adverse Reaction (Unknown, Verified 02/16/20 14:45) BLADDER PAIN/SLOW DRAINAGE metoclopramide [From Reglan] Adverse Reaction (Unknown, Verified 02/16/20 14:45) Gastrointestinal Upset mometasone furoate [From Nasonex] Adverse Reaction (Unknown, Verified 02/16/20 14:45) Cough paroxetine [From Paxil] Adverse Reaction (Unknown, Verified 02/16/20 14:45) Agitated salmeterol [From Advair Diskus] Adverse Reaction (Unknown, Verified 02/16/20 14:45) HURTS IN THE INSIDE OF NOSE tramadol Adverse Reaction (Unknown, Verified 02/16/20 14:45) Dizziness acetaminophen [From Lortab] Adverse Reaction (Verified 02/16/20 14:45) Gastrointestinal Upset hydrocodone [From Lortab] Adverse Reaction (Verified 02/16/20 14:45) Gastrointestinal Upset Height: 1.6 m Weight: 100.499 kg Patient Problems: Current Active Problems Community acquired pneumonia (Acute) Weakness (Acute) Vomiting (Acute) - VTE Risk Labs: VTE Related Lab Results Hgb 10.7 g/dL (12.2-16.2) L D 02/28/20 06:59 Hct 33.1 % (37.0-47.0) L 02/28/20 06:59 Plt Count 115 K/mm3 (142-424) L D 02/28/20 06:59 BUN 17 mg/dl (7-17) 02/28/20 06:59 Creatinine 0.80 mg/dl (0.52-1.04) 02/28/20 06:59 Estimated Creat Clear 77 mL/min (50-200) 02/28/20 06:59 - Prophylaxis Types of VTE Prophylaxis: TEDS Knee High (SHAINA HOSE ORDERED)
--- NOTE | 2020-02-28 15:58 | PC.NURSE ---
Pt alert and oriented and able to make needs known. RR even and unlabored. Has had no c/o this shift and states she is feeling better than she was. Have been unable to wean 02 to RA at this time and sats remain WNL. Pt did have a basin bath. Have applied powder to abd folds. Pt is sitting up to chair at this time. Have encouraged use of incentive spirometer. Will cont to mx this shift. VSS.
--- NOTE | 2020-02-28 17:45 | PC.NURSE ---
Spoke with Will RT and he stated he will come and give PRN neb. Primitivo from pharmacy called and wants to ensure md is ok with pt taking albuterol in RE to allergies listed in particular salmeterol and pseudoephedrine. Dr. Beasley has been made aware at this time and he stated it is ok to use albuterol. NOted and will make pharm aware.
[2020-02-29] VITALS (11 sets, daily range): BP systolic 130–184; BP diastolic 63–100; PULSE 56–70; RESP 16–20; TEMP 36.5–37.1; O2SAT 88–97; BMI 39.2; BMI 39.0
--- NOTE | 2020-02-29 03:16 | PC.NURSE ---
A&OX4. PT TOLERATING 2LNBC T/O SHIFT. PT ONLY C/O BOYD X1 THIS SHIFT TX WITH TYLENOL PER OCT. ON REASSESSMENT, PT RESTING IN BED WITH EYES CLOSED. PT ALSO C/O FEELING JITTERY AND JUST BAD AT BEGINNING OF SHIFT. I EXPLAINED THE EFFECTS OF ALBUTEROL TO PT. PT REPORTS THIS FEELING GOING AWAY T/O SHIFT. PT HAS NOT SLEPT WELL THIS SHIFT. HAS BEEN UP TO BATHROOM QUITE A FEW TIMES. NO OTHER C/O THUS FAR, VSS WILL CONTINUE TO MONITOR.
--- NOTE | 2020-02-29 06:23 | PC.NURSE ---
Patient refused prn breathing treatment for SOB. Respiratory therapist administered a sodium chloride neb but still unable to obtain a sputum at this time.
--- NOTE | 2020-02-29 08:16 | XR_ITS ---
PROCEDURE: XR CHEST 2V CLINICAL HISTORY: F/u pneumonia COMPARISON: CXR CHEST(2 VIEWS-NOT PORTABLE) from 05/01/2014 XR CHEST 2V from 02/02/2020 XR CHEST PORTABLE from 02/27/2020 FINDINGS: Borderline cardiomegaly without failure. There remains patchy density in the right lower lobe which may be due to an area of infiltrate or atelectasis.. No acute bony abnormalities. IMPRESSION: No change right basilar atelectasis or infiltrate Dictated by: Ghassan Beth MD 02/29/2020 11:20 Electronically signed by Ghassan Beth MD in [place] 02/29/2020 11:20
--- NOTE | 2020-02-29 08:29 | [facility].ACPN2 ---
<Nettie Jay - Last Filed: 02/29/20 08:29> Internal Medicine - PN: Subj *Date: 02/29/20 *Time: 08:29 Interval history: pt generally does not feel well. She is short of breath. O2 sat on RA is 88% this AM. She describes chest tightness. She has been able to eat. She continues to have nausea but no vomiting. Bowels have moved. She is complaining of a headache. Exam Vital signs and Labs for Last 24 Hours: Temp Pulse Resp BP Pulse Ox 98.5 F 61 16 130/75 88 L 02/29/20 03:38 02/29/20 03:38 02/29/20 03:38 02/29/20 03:38 02/29/20 04:52 I & O for Last 24 hours: Intake & Output 02/26/20 02/27/20 02/28/20 02/29/20 11:59 11:59 11:59 11:59 Intake Total 2289 / 2289 2291 / 2291 Output Total 1050 / 1050 1750 / 1750 Balance 1239 / 1239 541 / 541 Weight 220 lb 221 lb 9 oz 221 lb 9 oz - Constitutional no acute distress - *Routine Respiratory Exam Comments: crackles on the right with end expiratory wheeze throughout - *Routine Cardiovascular Exam Present: RRR - *Routine Abdominal Exam Present: soft, normoactive bowel sounds. Absent: tenderness, distended - *Routine Extremities Exam Absent: edema, calf tenderness - *Routine Neurological Exam Present: alert, oriented X3 Assessment and Plan (1) Community acquired pneumonia Current visit: Yes Status: Acute Qualifiers: Laterality: right Lung location: lower lobe of lung Qualified Code(s): J18.9 - Pneumonia, unspecified organism Category: Medical Code(s): J18.9 - Pneumonia, unspecified organism (2) Nausea and vomiting Current visit: Yes Status: Acute Category: Medical Code(s): R11.2 - Nausea with vomiting, unspecified (3) Hypothyroidism Current visit: Yes Status: Acute Category: Medical Code(s): E03.9 - Hypothyroidism, unspecified (4) Narcolepsy Current visit: Yes Status: Acute Category: Medical Code(s): G47.419 - Narcolepsy without cataplexy (5) Multiple drug allergies Current visit: Yes Status: Acute Category: Medical Code(s): Z88.9 - Allergy status to unspecified drugs, medicaments and biological substances status (6) Seasonal allergies Current visit: Yes Status: Acute Category: Medical Code(s): J30.2 - Other seasonal allergic rhinitis (7) Osteoarthritis Current visit: Yes Status: Acute Category: Medical Code(s): M19.90 - Unspecified osteoarthritis, unspecified site (8) Migraine headache Current visit: Yes Status: Acute Category: Medical Code(s): G43.909 - Migraine, unspecified, not intractable, without status migrainosus - Assessment and plan all Dx Assessment and Plan for all problems:: will repeat CXR today. <Ted Matute - Last Filed: 03/01/20 07:58> Internal Medicine - PN: Subj *Date: 03/01/20 *Time: 07:57 Exam Vital signs and Labs for Last 24 Hours: Temp Pulse Resp BP Pulse Ox 97.9 F 60 20 143/72 H 94 L 03/01/20 04:00 03/01/20 05:58 03/01/20 04:00 03/01/20 04:00 03/01/20 04:00 I & O for Last 24 hours: Intake & Output 02/27/20 02/28/20 02/29/20 03/01/20 11:59 11:59 11:59 11:59 Intake Total 2289 / 2289 2651 / 2651 1711 / 1711 Output Total 1050 / 1050 1750 / 1750 Balance 1239 / 1239 901 / 901 1711 / 1711 Weight 220 lb 221 lb 9 oz 221 lb 9 oz 223 lb 2 oz Microbiology Reports for the Last 24 Hours: Microbiology 02/29/20 06:35 Sputum - Expectorated Sputum Gram Stain - Final 02/29/20 06:35 Sputum - Expectorated Sputum Sputum Culture - Preliminary 02/27/20 08:40 Blood Blood Culture - Preliminary NO GROWTH AFTER 48 HOURS 02/27/20 08:40 Blood Blood Culture - Preliminary NO GROWTH AFTER 48 HOURS Assessment and Plan (1) Community acquired pneumonia Current visit: Yes Status: Acute Qualifiers: Laterality: right Lung location: lower lobe of lung Qualified Code(s): J18.9 - Pneumonia, unspecified org
--- NOTE | 2020-02-29 09:50 | SW/DCPLANNER ---
Addendum entered by Meli Gee 03/01/20 09:14: I have informed Maria Luz from [facility] that this patient will discharge home today. O2 will be delivered to [facility] and home. Addendum entered by Meli Gee 02/29/20 11:04: Patient will qualify for home O2 at this time per Maria Luz with [facility]. Maria Luz has stated that portable O2 will be delivered to [facility] and concentrator to home. [facility] will continue to monitor this patient after discharge. Addendum entered by Meli Gee 02/29/20 10:54: Patient is now at 91% RA. Patient does NOT have a qualifying diagnosis for insurance to cover home O2. Patient continues to be on RA. I have cancelled home O2 order. Original Note: Patient information has been faxed to [facility] for this patient to have home O2. Patient RA is 88%. I will follow up with [facility] and patient once order is reviewed.
--- NOTE | 2020-02-29 10:22 | PC.NURSE ---
Room air sat at rest 91%.
--- NOTE | 2020-02-29 15:37 | PC.NURSE ---
Pt has been pleasant and cooperative this shift. A&O X4. No complaints of pain or SOA. Pt wears O2 @ 2 LPM via NC prn. Room air saturation after ambulation/exertion is noted to be 87%. Pt ambulates with a stand-by assist to/from the bathroom and throughout the room. Pt reports 1 BM this shift. Pt sat up in the chair for a few hours today. Lungs CTA. Skin is c/d/i. Generalized edema noted to BLE. 20 G peripheral IV in the LT hand patent and infusing NS @ 75 ML/HR. B/P has been slightly elevated, although other VSS. Call light within reach. Will continue to monitor.
--- NOTE | 2020-02-29 19:09 | PC.NURSE ---
report given to jamil
--- NOTE | 2020-02-29 19:57 | PC.NURSE ---
RT monitored pt during RA sat=89% at rest
--- NOTE | 2020-02-29 21:05 | PC.NURSE ---
charted on wrong patient
[2020-03-01] VITALS: BP 140/70; PULSE 58; RESP 20; TEMP 36.8; O2SAT 95
--- NOTE | 2020-03-01 00:12 | ECG_ITS ---
APPROVED REPORT Exam: Resting ECG HR:57 bpm ECG Measurements Heart Rate 57 AXES UT 168 P 20 QRSd 82 QRS -25 QT 458 T 32 QTc 445 <Conclusion> Sinus bradycardia Otherwise normal ECG Electronically signed by : Lance Santillan, 03/05/2020 08:13:36
[2020-03-01 04:00] VITALS: BP 143/72; PULSE 60; RESP 20; TEMP 36.6; O2SAT 94
[2020-03-01 05:00] VITALS: BMI 39.5
[2020-03-01 05:58] VITALS: PULSE 60
[2020-03-01 08:00] VITALS: BP 167/72; PULSE 58; RESP 19; TEMP 37.1; O2SAT 91
--- NOTE | 2020-03-01 08:20 | [facility].ACPN2 ---
<Nettie Jay - Last Filed: 03/01/20 08:20> Internal Medicine - PN: Subj *Date: 03/01/20 *Time: 08:20 Interval history: Patient does feel better this a.m. She did not sleep again last night. She is anxious to go home. She states her breathing is better. She has been able to eat without problems. She has been out of bed. Exam Vital signs and Labs for Last 24 Hours: Temp Pulse Resp BP Pulse Ox 97.9 F 60 20 143/72 H 94 L 03/01/20 04:00 03/01/20 05:58 03/01/20 04:00 03/01/20 04:00 03/01/20 04:00 I & O for Last 24 hours: Intake & Output 02/27/20 02/28/20 02/29/20 03/01/20 11:59 11:59 11:59 11:59 Intake Total 2289 / 2289 2651 / 2651 1711 / 1711 Output Total 1050 / 1050 1750 / 1750 Balance 1239 / 1239 901 / 901 1711 / 1711 Weight 220 lb 221 lb 9 oz 221 lb 9 oz 223 lb 2 oz Microbiology Reports for the Last 24 Hours: Microbiology 02/29/20 06:35 Sputum - Expectorated Sputum Gram Stain - Final 02/29/20 06:35 Sputum - Expectorated Sputum Sputum Culture - Preliminary 02/27/20 08:40 Blood Blood Culture - Preliminary NO GROWTH AFTER 48 HOURS 02/27/20 08:40 Blood Blood Culture - Preliminary NO GROWTH AFTER 48 HOURS - Constitutional no acute distress - *Routine Respiratory Exam Comments: Few bibasilar crackles. Rare scattered expiratory wheeze - *Routine Cardiovascular Exam Present: RRR, murmur - *Routine Abdominal Exam Present: soft, normoactive bowel sounds, obese. Absent: tenderness, distended - *Routine Extremities Exam Absent: edema, calf tenderness - *Routine Neurological Exam Present: alert, oriented X3 Assessment and Plan (1) Community acquired pneumonia Status: Acute Qualifiers: Laterality: right Lung location: lower lobe of lung Qualified Code(s): J18.9 - Pneumonia, unspecified organism Category: Medical Code(s): J18.9 - Pneumonia, unspecified organism (2) Nausea and vomiting Status: Acute Category: Medical Code(s): R11.2 - Nausea with vomiting, unspecified (3) Hypothyroidism Status: Acute Category: Medical Code(s): E03.9 - Hypothyroidism, unspecified (4) Narcolepsy Status: Acute Category: Medical Code(s): G47.419 - Narcolepsy without cataplexy (5) Multiple drug allergies Status: Acute Category: Medical Code(s): Z88.9 - Allergy status to unspecified drugs, medicaments and biological substances status (6) Seasonal allergies Status: Acute Category: Medical Code(s): J30.2 - Other seasonal allergic rhinitis (7) Osteoarthritis Status: Acute Category: Medical Code(s): M19.90 - Unspecified osteoarthritis, unspecified site (8) Migraine headache Status: Acute Category: Medical Code(s): G43.909 - Migraine, unspecified, not intractable, without status migrainosus - Assessment and plan all Dx Assessment and Plan for all problems:: We will discharge home today. She will use oxygen as needed. <Ted Matute - Last Filed: 03/01/20 12:31> Internal Medicine - PN: Subj *Date: 03/01/20 *Time: 12:28 Exam Vital signs and Labs for Last 24 Hours: Temp Pulse Resp BP Pulse Ox 98.7 F 58 L 19 167/72 H 91 L 03/01/20 08:00 03/01/20 08:00 03/01/20 08:00 03/01/20 08:00 03/01/20 08:00 I & O for Last 24 hours: Intake & Output 02/28/20 02/29/20 03/01/20 03/02/20 11:59 11:59 11:59 11:59 Intake Total 2289 / 2289 2651 / 2651 2070 Output Total 1050 / 1050 1750 / 1750 Balance 1239 / 1239 901 / 901 2070 Weight 221 lb 9 oz 221 lb 9 oz 223 lb 2 oz Microbiology Reports for the Last 24 Hours: Microbiology 02/29/20 06:35 Sputum - Expectorated Sputum Gram Stain - Final 02/29/20 06:35 Sputum - Expectorated Sputum Sputum Culture - Preliminary 02/27/20 08:40 Blood Blood Culture - Preliminary NO GROWTH AFTER 48 HOURS 02/27/20 08:40 Blood Blood
--- NOTE | 2020-03-01 09:43 | [facility].PHAINT ---
PATIENT WAS COUNSELED ON NEW MEDICATION: LEVOFLOXACIN. THE PATIENT WILL CONTINUE ALL HOME MEDICATIONS. THE PATIENT DID NOT HAVE ANY QUESTIONS. RX SENT TO CLINIC PHARMACY.
--- NOTE | 2020-03-02 16:43 | [facility].DCSUM ---
General - General Admission date:: 02/27/20 <Ted Matute - 03/21/20 08:04> 02/27/20 <AlfredFabio lunaa - 03/02/20 16:48> Discharge date: 03/01/20 <Alexandra Nguyen - 03/02/20 16:48> HPI HPI: Lian is a 75-year-old white female who started 2 nights ago with nausea and vomiting with some diffuse abdominal pain. No diarrhea. She went to bed that night and rested fairly well, but when she awoke yesterday morning she remained nauseated and was very weak and had difficulty getting around. At that point she had her family bring her to the hospital. She was evaluated in the ER. Labs were fairly unremarkable. Chest x-ray showed an area of atelectasis versus early pneumonia. COVID testing was negative. She was subsequently admitted for IV hydration and IV antibiotics. <AlfredAlexandra luna - 03/02/20 16:48> Hospital Course Hospital Course: The patient's chest x-ray showed a right basilar atelectasis versus infiltrate. She was started on IV hydration and IV antibiotics. Her gastroenteritis had improved and she was able to tolerate a diet with no further diarrhea. She had a repeat chest x-ray on 02/29/2020 which showed no change in the right basilar atelectasis versus infiltrate. She generally did not feel well and had some shortness of breath. Her oxygen on room air was 88%. She did have some chest tightness. She was able to tolerate somewhat of a diet, but continued with nausea and a headache. By 03/01/2020, she felt a little better. She was anxious to go home and stated her shortness of breath improved. She had been up and out of bed. Her blood culture showed no growth and her sputum did grow yeast. She was discharged home on antibiotics as well as home oxygen and will follow-up in the office in 3 days. <AlfredFabio lunaa - 03/02/20 16:48> Objective Vital signs: Temp Pulse Resp BP Pulse Ox 98.7 F 58 L 19 167/72 H 91 L 03/01/20 08:00 03/01/20 08:00 03/01/20 08:00 03/01/20 08:00 03/01/20 08:00 <Ted Matute - 03/21/20 08:04> Temp Pulse Resp BP Pulse Ox 98.7 F 58 L 19 167/72 H 91 L 03/01/20 08:00 03/01/20 08:00 03/01/20 08:00 03/01/20 08:00 03/01/20 08:00 <Alexandra Nguyen - 03/02/20 16:48> Narrative: - Constitutional no acute distress - *Routine Respiratory Exam Comments: Few bibasilar crackles. Rare scattered expiratory wheeze - *Routine Cardiovascular Exam Present: RRR, murmur - *Routine Abdominal Exam Present: soft, normoactive bowel sounds, obese. Absent: tenderness, distended - *Routine Extremities Exam Absent: edema, calf tenderness - *Routine Neurological Exam Present: alert, oriented X3 <Alexandra Nguyen - 03/02/20 16:48> Results Labs on day of discharge: Preliminary micro results at discharge 02/27/20 08:40 Blood Culture - Preliminary Blood NO GROWTH AFTER 48 HOURS 02/27/20 08:40 Blood Culture - Preliminary Blood NO GROWTH AFTER 48 HOURS <Alexandra Nguyen - 03/02/20 16:48> DS: Diagnosis - Discharge Diagnosis (1) Community acquired pneumonia Status: Acute (2) Nausea and vomiting Status: Acute (3) Hypothyroidism Status: Acute (4) Narcolepsy Status: Acute (5) Multiple drug allergies Status: Acute (6) Seasonal allergies Status: Acute (7) Osteoarthritis Status: Acute (8) Migraine headache Status: Acute <Alexandra Nguyen - 03/02/20 16:43> (1) Community acquired pneumonia Status: Acute (2) Nausea and vomiting Status: Acute (3) Hypothyroidism Status: Acute (4) Narcolepsy Status: Acute (5) Multiple drug allergies Status: Acute (6) Seasonal allergies Status: Acute (7) Osteoarthritis Status: Acute (8) Migraine headache Status: Acute <Ted Matute - 03/21/20 08:04> Discharge Plan - Patient Discharge Instructions ACTIVITY: Continue current activity <Alexandra Nguyen - 03/02/20 16:48> DIET: continue same d
== END 2020-03-01 09:40 | disposition home or self-care (01) | DRG 195 ==
LOC: ER 10:49 → 2ND 16:56
PROVIDERS: Admitting Provider Family Medicine; Emergency Provider Emergency Medicine; PCP Family Medicine; Visit Provider Family Medicine
DX: J18.9 Pneumonia, unspecified organism (principal); G47.419 Narcolepsy without cataplexy; G43.909 Migraine, unspecified, not intractable, without status migrainosus; E03.9 Hypothyroidism, unspecified; Z79.899 Other long term (current) drug therapy; J30.2 Other seasonal allergic rhinitis; Z88.0 Allergy status to penicillin; Z88.1 Allergy status to other antibiotic agents; Z88.2 Allergy status to sulfonamides; Z88.8 Allergy status to other drugs, medicaments and biological substances; Z79.82 Long term (current) use of aspirin
CPT/HCPCS: 71045; 71046; 80048; 80053; 81001; 83605; 85025; 86328; 87040; 87070; 87205; 87581; 87633; 87798; 93005; 94640; 94760; 96365; 96366; 96367; 96375; 99285; J1956; J2405

== ENCOUNTER → 2020-06-02 15:21 | Outpatient (CLI) | payer MEDICARE, MEDICAID, SELFPAY ==
--- NOTE | 2020-06-02 | XR_ITS ---
PROCEDURE: XR LUMBAR SPINE MIN 4V CLINICAL INDICATION: PAIN IN UNSPECIFIED HIP Chronic pain COMPARISON: CR [id number] XR lumbar spine min 4V from 11/07/2018 FINDINGS: Levoscoliosis of the lumbar spine with multilevel degenerative disc disease. Degenerative disc disease is present from L1-S1 worse at L2-L3 and L3-L4. There is 13 mm anterolisthesis of L5 on S1. No acute fracture or dislocation is evident. Facet arthritic changes are present from L2-S1. There is diffuse calcification of the splenic artery. IMPRESSION: Lumbar spondylosis with scoliosis. These findings are slightly worse when compared to the previous exam. Dictated by: Ghassan Beth MD 06/02/2020 20:40 Ghassan Beth MD in [place] 06/02/2020 20:40
--- NOTE | 2020-06-02 | XR_ITS ---
PROCEDURE: XR KNEE RT 3V CLINICAL INDICATION: Prepatellar bursitis Pain COMPARISON: No exams were available for comparison FINDINGS: Good alignment status post total knee replacement. No evidence of orthopedic complication. No acute fracture or dislocation. No lytic or blastic change. There is generalized vascular calcification IMPRESSION: Status post total knee replacement, no acute finding Dictated by: Ghassan Beth MD 06/02/2020 20:43 Ghassan Beth MD in [facility] 06/02/2020 20:43
--- NOTE | 2020-06-02 | XR_ITS ---
PROCEDURE: XR HIP RT 2-3V W/PELVIS CLINICAL INDICATION: PAIN IN UNSPECIFIED HIP Chronic pain COMPARISON: CR [id number] XR hip LT 2-3V w/pelvis from 11/07/2018 FINDINGS: There is severe osteoarthritic changes of the right hip which have progressed compared to the previous exam. There is some mild flattening of the femoral head which has developed in the interval. Subarticular cystic changes are present in the acetabular roof and in the femoral head. Hypertrophic changes are present at the greater trochanter with some heterotopic ossification at the greater trochanter. There is mild lateral subluxation of the right femoral head. IMPRESSION: Severe osteoarthritis with subarticular cystic changes and dysplastic changes of the right hip. These findings have progressed compared to the previous exam Dictated by: Ghassan Beth MD 06/02/2020 20:42 Ghassan Beth MD in [place] 06/02/2020 20:42
== END ==
PROVIDERS: PCP Family Medicine; Visit Provider Family Medicine
DX: M25.551 Pain in right hip (principal); M70.41 Prepatellar bursitis, right knee
CPT/HCPCS: 72110; 73502; 73562

== ENCOUNTER → 2020-06-20 13:13 | Outpatient (CLI) | payer MEDICARE, MEDICAID, SELFPAY ==
--- NOTE | 2020-06-20 13:18 | MR_ITS ---
PROCEDURE: MR LUMBAR SPINE WO CON CLINICAL INDICATION: LUMBAR RADICULOPATHY LOW BACK PAIN INTO RIGHT LEG, PRIOR XRAYS 06-02-20 COMPARISON: CR XR LUMBAR SPINE MIN 4V from 06/02/2020 TECHNIQUE: Standard multiplanar multiecho sequences are performed without contrast. 3-D MIP and myelographic images are also rendered and reviewed FINDINGS: There is normal alignment. The spinal cord ends at the L2 level. There is levoscoliosis measuring 20 degrees. Multilevel lumbar spondylosis is present as described below. T11-T12: Mild bulging disc. T12-L1: Mild degenerative disc disease. L1-L2: Degenerative disc disease with anterior osteophytes. L2-L3: Degenerative disc disease with anterior osteophytes with bulging disc along with facet and ligamentum hypertrophy with bilateral lateral recess narrowing slightly greater on the right compared to the left. 3 mm retrolisthesis of L2 on the right. L3-L4: Degenerative disc disease with bulging disc along with moderate facet and ligamentum hypertrophy. There is transverse narrowing of the canal at 8 mm. Facet and ligamentum hypertrophy are present with severe right-sided foraminal narrowing. There is 3 mm retrolisthesis of L3 on the right. L4-5: Degenerative disc disease with bulging disc. There is facet and ligamentum hypertrophy. There is a small broad-based left paracentral disc protrusion. There is asymmetric severe facet hypertrophic change also on the left with severe left-sided foraminal narrowing and severe left lateral recess narrowing with impingement upon the left L5 nerve root and the exiting left L4 nerve root. There is canal stenosis at this level. There is 3 mm retrolisthesis of L4. L5-S1: 5 mm anterolisthesis of L5 with bulging disc along with severe facet and ligamentum hypertrophy with severe bilateral foraminal narrowing and severe bilateral lateral recess narrowing with impingement upon the S1 nerve roots on both sides. There is severe transverse canal stenosis of 6 mm. No extruded herniated disc is evident. IMPRESSION: Abnormal MRI of the lumbar spine. There is multilevel lumbar spondylosis with scoliosis. Bulging disc along with facet and ligamentum hypertrophy is present with multilevel lateral recess and foraminal narrowing some of which is severe. Please see above for detailed description at each level. Dictated by: Ghassan Beth MD 06/21/2020 15:38 Ghassan Beth MD in [place] 06/21/2020 15:38
== END ==
PROVIDERS: PCP Family Medicine; Visit Provider Family Medicine
DX: M54.16 Radiculopathy, lumbar region (principal)
CPT/HCPCS: 72148; 76376

== ENCOUNTER → 2020-07-04 10:32 | Outpatient (CLI) | payer MEDICARE, MEDICAID, SELFPAY ==
--- NOTE | 2020-07-04 10:36 | MM_ITS ---
PROCEDURE: MM DIG SCREENING MAMM BI W/CAD Referring Doctor: Ted Matute Patient Age:75Y CLINICAL INDICATION: History sheet now available SCREENING 75-year-old . No hormones. No new complaints. The Patient has scar under the left breast from previous benign surgical excisional biopsy. Patient had difficulty positioning move the today due to issues with in her back limited mobility. COMPARISON: MG DIGMAMMS MAMMOGRAM SCREEN-CATERING CONVENTION SERVICES MANAGER N/C from 11/22/2009 MG DMSB DIGITAL MAMM-SCREEN BILATERAL from 01/18/2011 MG DMSB DIGITAL MAMM-SCREEN BILATERAL from 02/22/2012 MG DMDXUAVR DIG MAMM-DX UNIL ADD VIEWS-RT from 03/11/2012 MG DMSB DIG MAMM-SCREEN CONTRERAS from 03/13/2013 MG DMSB DIG MAMM-SCREEN CONTRERAS from 05/13/2014 MG DMSB DIG MAMM-SCREEN CONTRERAS from 05/18/2015 MG DMSB DIG MAMM-SCREEN CONTRERAS from 05/22/2016 MG MM DIG SCREENING MAMM BI W/CAD from 05/15/2019 TECHNIQUE: Standard CC and MLO images were obtained. R2 CAD reviewed. Bilateral digital breast tomosynthesis included. FINDINGS: Low-density breast with moderate generalized progressive fatty replacement bilaterally. Minimal residual fibroglandular elements bilaterally. Stable appearance to the breast with no dominant nor suspicious mass. No suspicious calcifications but vascular calcifications bilaterally noted Bilateral follow-up 1 year recommended IMPRESSION: Stable mammogram. No new areas of significant concern. Routine annual bilateral Follow-up recommended BI-RAD Category: 1 Negative FOLLOW-UP: 1YR 1 Year Follow-up (A letter has been sent to the patient regarding results of the study.) Dictated by: Primitivo Shelton MD 07/22/2020 10:18 Primitivo Shelton MD in [place] 07/22/2020 10:18
== END ==
PROVIDERS: PCP Family Medicine; Visit Provider Family Medicine
DX: Z12.31 Encounter for screening mammogram for malignant neoplasm of breast (principal)
CPT/HCPCS: 77063; 77067

== ENCOUNTER → 2020-08-16 12:42 | Outpatient (CLI) | payer MEDICARE, MEDICAID, SELFPAY ==
[2020-08-16 13:08] LABS: Basophils # 0.1 K/mm3 (0-0.2); Basophils % 0.7 % (0.1-2.0); Eosinophils # 0.4 K/mm3 (0.0-0.4); Eosinophils % 4.5 % (0.1-12.0); Hematocrit 39.3 % (37.0-47.0); Hemoglobin 12.7 g/dL (12.2-16.2); Lymphocytes # 1.6 K/mm3 (0.7-4.5); Lymphocytes % 20.1 % (10-50); Mean Corpuscular HGB Conc 32.4 g/dL (31.8-35.4); Mean Corpuscular Hemoglobin 26.9 pg (27.0-31.2); Mean Platelet Volume 9.1 fl (7.4-10.4); Monocytes # 0.4 K/mm3 (0.1-1.0); Neutrophils # 5.5 K/mm3 (1.8-7.8); Neutrophils % 69.6 % (37.0-80.0); Platelet Count 190 K/mm3 (142-424); Red Blood Count 4.73 M/mm3 (4.20-5.40); Red Cell Distribution Width 15.5 % (11.5-17.5); White Blood Count 7.9 K/mm3 (4.8-10.8)
[2020-08-16 13:52] LABS: Activated Partial Thrombo Time 24.2 seconds (23.6-34.0); INR 1.03 (0.9-1.1); Prothrombin Time 11.4 seconds (9.4-11.8)
[2020-08-16 14:04] LABS: Alanine Aminotransferase 11 U/L (12-78); Albumin Level 4.3 g/dl (3.5-5.0); Albumin/Globulin Ratio 1.4 (1.1-1.8); Alkaline Phosphatase 85 U/L (38-126); Anion Gap 15.2 mEq/L (5-15); Aspartate Amino Transferase 18 U/L (14-36); Bilirubin,Total 0.6 mg/dl (0.2-1.3); Blood Urea Nitrogen 36 mg/dl (7-17); Calcium 10.3 mg/dl (8.4-10.2); Carbon Dioxide 26 mmol/L (22.0-30.0); Chloride 104 mmol/L (98-107); Estimated Glomerular Filt Rate 54 ml/min (>60); GFR (African American) 65 ML/MIN (>60); Globulin 3.1 g/dL (1.3-3.2); Glucose 111 mg/dl (74-100); Potassium 4.2 mmoL/L (3.5-5.1); Sodium 141 mmol/L (136-145); Total Protein,Serum 7.4 g/dl (6.3-8.2)
--- NOTE | 2020-08-16 14:11 | XR_ITS ---
PROCEDURE: XR CHEST 2V CLINICAL HISTORY: HIGH BLOOD PRESSURE, ASTHMA COMPARISON: CR CXR CHEST(2 VIEWS-NOT PORTABLE) from 05/01/2014 CR XR CHEST 2V from 02/02/2020 CR XR CHEST PORTABLE from 02/27/2020 CR XR CHEST 2V from 02/29/2020 FINDINGS: There is cardiomegaly without failure. There is elevated right hemidiaphragm with atelectatic changes in the right middle lobe. The remaining Lungs are clear. Thoracic kyphosis. IMPRESSION: Cardiomegaly with chronic right middle lobe atelectatic changes. Dictated by: Ghassan Beth MD 08/16/2020 17:14 Ghassan Beth MD in [place] 08/16/2020 17:14
== END ==
PROVIDERS: PCP Family Medicine; Visit Provider Family Medicine
DX: Z01.818 Encounter for other preprocedural examination (principal); M25.551 Pain in right hip; Z51.81 Encounter for therapeutic drug level monitoring
CPT/HCPCS: 36415; 71046; 80053; 85025; 85610; 85730

== ENCOUNTER → 2020-08-25 11:11 | Outpatient (CLI) | payer MEDICARE, MEDICAID, SELFPAY ==
--- NOTE | 2020-08-25 | CA_ITS ---
APPROVED REPORT Exam: Pharmacologic Technologist: Lian Tran, Ht: 5 ft 3 in Wt: 210 lbs BSA: 1.97 m2 HR: 53 bpm BP: 159/66 mmHg Rhythm: Bradycardia Indications: PreOp hip replacement Medical History Medications: Asa,,,,, HCTZ,,,,, Cetrizine,,,,, Meclizine,,,,, Nadolol,,,,, DilTiazem,,,,, HydroMORPHine,,,,, LevothROXINE,,,,, SertraliINE,,,,, Meeloxicam,,,,, Stress Test Details Test: LEXISCAN HR Resting HR: 54 bpm Max Heart Rate (APMHR): 145 bpm Max HR Achieved: 81 bpm Target HR (85% APMHR): 123 bpm % of APMHR: 55 BP Resting BP: 159/66 mmHg Max BP: 168/78 mmHg Recovery BP: 161.0/77.0 mmHg ECG Clinical Reason for Termination: Completed protocol Exercise duration: 04:01 min Highest Stage Achieved: Exercise capacity: 1.0 METs Stress ECG Conclusion Brief SOA, BOYD, malaise - no chest pain. Occ. PVC. No significant changes. Unremarkable Lexiscan stress. Myoview images reported separately. Electronically signed by : Harshal Alvarez, 08/25/2020 16:14:55
--- NOTE | 2020-08-25 11:17 | NM_ITS ---
APPROVED REPORT Exam: Nuclear Stress Test Indication: short of breath..palpitations..fatigue Patient Location: Outpatient Stress Tech: Lian Tran DE Tech:RANDI Flores RT(R)(N) Ht: 5 ft 3 in Wt: 210 lbs Bra Size: c HR: 53 bpm BP: 159/66 mmHg BSA: 1.97 m2 BMI: 37.1 History: short of breath..palpitations..fatigue it took 3 people to get the patient on the table..pt refused to lay on her belly Procedure: Patient received a 0.4 mg of intravenous Lexiscan, resting heart rate 53 bpm, resting blood pressure 159/66 mmHg, with Lexiscan maximum heart rate achived was 63 bpm which is Less than 85 % of the maximum predicted heart rate and blood pressure was 162/76 mmHg. With Lexiscan, patient denied any complaint of chest pain. Electrocardiogram Resting electrocardiogram showed sinus rhythm, with Lexiscan there is less than 1.[address] segment depression noted from the baseline EKG. The EKG portion of the Lexiscan is nondiagnostic. Cardiac Stress and Resting SPECT Images: Cardiac Stress and Resting SPECT images were obtained using technetium 99m Myoview 32.7 mCi stress and 10.46 mCi at rest. Gated SPECT for analysis of segmental wall motion abnormality and calculation of the ejection fraction also done, prone images were not obtained due to patient's refusal to lay on her belly. Cardiac stress and resting SPECT images show a mild fixed defect involving the mid anterior wall and posterolateral wall with normal contractility on the gated SPECT is likely secondary to soft tissue attenuation, no reversible ischemia seen, computer derived ejection fraction is 58% with no regional wall motion abnormality, right ventricle is normal size and contractility. Conclusion: 1. The EKG portion of the Lexiscan Myoview is nondiagnostic. 2. No scintigraphic evidence of reversible ischemia seen, fixed defect in the mid anterior wall and posterolateral wall with normal contractility on the gated SPECT is likely secondary to soft tissue attenuation, computer derived ejection fraction is 58% with no regional wall motion abnormality, right ventricle is normal size and contractility. 3. Likely normal Lexiscan Myoview study. Electronically signed by : Harshal Alvarez, 08/25/2020 16:19:37
== END ==
PROVIDERS: PCP Family Medicine; Visit Provider Urology
DX: I35.0 Nonrheumatic aortic (valve) stenosis (principal); Z01.810 Encounter for preprocedural cardiovascular examination
CPT/HCPCS: 78452; 93017; A9502; J2785

== ENCOUNTER → 2020-09-19 14:24 | Outpatient (CLI) | payer MEDICARE, MEDICAID, SELFPAY ==
--- NOTE | 2020-09-19 14:31 | XR_ITS ---
PROCEDURE: XR HIP RT 2-3V W/PELVIS CLINICAL INDICATION: RT hip pain/ surgery planning COMPARISON: CR XR HIP RT 2-3V W/PELVIS from 06/02/2020 FINDINGS: There remains severe osteoarthritic changes of the right with subarticular cystic changes and dysplastic changes of the right femoral head. There is cortical collapse of the superior lateral aspect of the right femoral head which has developed since the previous exam with mild lateral subluxation of the right hip. A marker device is in place for surgical planning. Hypertrophic changes are present at the greater trochanter. Subchondral cystic changes are present in the acetabular roof. IMPRESSION: Progressive osteoarthritic change of the right hip with interval development of cortical collapse of the right femoral head superiorly and laterally also with subchondral cystic changes of the acetabulum. Dictated by: Ghassan Beth MD 09/19/2020 16:41 Ghassan Beth MD in [place] 09/19/2020 16:41
[2020-09-19 16:08] LABS: MANUAL DIFFERENTIAL MANUAL DIFFERENTIAL (MANUAL DIFF)
[2020-09-19 17:46] LABS: Basophils # 0.1 K/mm3 (0-0.2); Basophils % 0.7 % (0.1-2.0); Eosinophils # 0.4 K/mm3 (0.0-0.4); Eosinophils % 5.7 % (0.1-12.0); Hematocrit 37.8 % (37.0-47.0); Hemoglobin 11.9 g/dL (12.2-16.2); Lymphocytes # 1.7 K/mm3 (0.7-4.5); Lymphocytes % 25.6 % (10-50); Mean Corpuscular HGB Conc 31.5 g/dL (31.8-35.4); Mean Corpuscular Hemoglobin 26.4 pg (27.0-31.2); Mean Corpuscular Volume 83.8 fl (81-99); Monocytes # 0.4 K/mm3 (0.1-1.0); Monocytes % 6.3 % (1.7-9.3); Neutrophils # 4.2 K/mm3 (1.8-7.8); Neutrophils % 61.7 % (37.0-80.0); Platelet Count 173 K/mm3 (142-424); Red Blood Count 4.52 M/mm3 (4.20-5.40); Red Cell Distribution Width 15.3 % (11.5-17.5); White Blood Count 6.7 K/mm3 (4.8-10.8)
[2020-09-19 17:49] LABS: Anion Gap 9.6 mEq/L (5-15); Blood Urea Nitrogen 25 mg/dl (7-17); Calcium 9.8 mg/dl (8.4-10.2); Carbon Dioxide 31 mmol/L (22.0-30.0); Chloride 103 mmol/L (98-107); Estimated Glomerular Filt Rate 61 ml/min (>60); GFR (African American) 74 ML/MIN (>60); Glucose 106 mg/dl (74-100); Potassium 4.6 mmoL/L (3.5-5.1); Sodium 139 mmol/L (136-145)
[2020-09-19 17:56] LABS: Activated Partial Thrombo Time 25.3 seconds (23.6-34.0); INR 1.02 (0.9-1.1); Prothrombin Time 11.3 seconds (9.4-11.8)
[2020-09-19 23:02] LABS: Eosinophils % 7 % (0-3); Lymphocytes % 26 % (10-50); Monocytes % 6 % (2-9); Neutrophils % 61 % (42-76); Platelet Estimate Normal; RBC Morphology Normal; Total Cells Counted 100
== END ==
PROVIDERS: PCP Family Medicine; Visit Provider Orthopaedic Surgery
DX: M25.551 Pain in right hip (principal)
CPT/HCPCS: 36415; 73502; 80048; 85007; 85014; 85018; 85048; 85049; 85610; 85730; 86850; 87081

== ENCOUNTER → 2020-09-19 16:01 | Outpatient (CLI) | payer MEDICARE, MEDICAID, SELFPAY | PROVIDERS: Visit Provider Orthopaedic Surgery | DX: Z01.818 Encounter for other preprocedural examination (principal); M16.11 Unilateral primary osteoarthritis, right hip; Z51.81 Encounter for therapeutic drug level monitoring | CPT/HCPCS: 36415; 73502; 80048; 85007; 85014; 85018; 85048; 85049; 85610; 85730; 86850; 87081 ==

== ENCOUNTER → 2020-10-14 14:08 | Outpatient (CLI) | payer MEDICARE, MEDICAID, SELFPAY ==
[2020-10-14 14:54] LABS: Basophils # 0.1 K/mm3 (0-0.2); Eosinophils # 0.3 K/mm3 (0.0-0.4); Eosinophils % 4.3 % (0.1-12.0); Hematocrit 36.3 % (37.0-47.0); Hemoglobin 11.8 g/dL (12.2-16.2); Lymphocytes # 1.6 K/mm3 (0.7-4.5); Lymphocytes % 25.3 % (10-50); Mean Corpuscular HGB Conc 32.5 g/dL (31.8-35.4); Mean Platelet Volume 9.7 fl (7.4-10.4); Monocytes # 0.4 K/mm3 (0.1-1.0); Neutrophils # 4.1 K/mm3 (1.8-7.8); Neutrophils % 63.5 % (37.0-80.0); Platelet Count 163 K/mm3 (142-424); Red Blood Count 4.38 M/mm3 (4.20-5.40); Red Cell Distribution Width 15.5 % (11.5-17.5); White Blood Count 6.5 K/mm3 (4.8-10.8)
[2020-10-14 15:11] LABS: C-Reactive Protein 3.9 mg/L (0-4)
[2020-10-14 15:18] LABS: Erythrocyte Sedimentation Rate 17 mm/hr (0-30)
[2020-10-14 15:49] LABS: Microscopic, Urine URINE MICROSCOPIC (MICROSCOPIC)
[2020-10-14 16:08] LABS: Appearance,Urine CLEAR (Clear); Bilirubin,Urine Negative (Negative); Blood, Urine Negative (Negative); Color,Urine YELLOW (Yellow); Glucose,Urine (UA) Negative (Negative); Ketones,Urine Negative (Negative); Leukocyte Esterase,Urine Negative (Negative); Nitrate,Urine POSITIVE (Negative); Protein,Urine Negative (Negative); Specific Gravity, Urine 1.025 (1.005-1.030); Urobilinogen,Urine 0.2 EU/dl (0.2)
[2020-10-14 16:19] LABS: Bacteria,Urine 2+ /lpf
== END ==
PROVIDERS: Visit Provider Orthopaedic Surgery
DX: Z01.818 Encounter for other preprocedural examination (principal); M16.11 Unilateral primary osteoarthritis, right hip; R30.9 Painful micturition, unspecified
CPT/HCPCS: 36415; 81001; 85025; 85651; 86140; 87086; 87088; 87186

== ENCOUNTER → 2020-10-20 15:52 | Outpatient (CLI) | payer MEDICARE, MEDICAID, SELFPAY ==
--- NOTE | 2020-10-20 16:02 | CT_ITS ---
PROCEDURE: CT HIP RT WO CON CLINICAL HISTORY: PREOP FOR TOTAL HIP Rt hip pain Total rt hip replacement for arthritis Pt unable to straighten right leg COMPARISON: CT ABDPELW/O CT ABD PELVIS W/O CONTRAST from 01/28/2014 CR XR HIP RT 2-3V W/PELVIS from 09/19/2020 TECHNIQUE: Axial images obtained with sagittal and coronal reformats. All CT scans at the facility use one or more dose reduction, viz: automated exposure control, ma/kV adjustment per patient size (including targeted exams where dose is matched to indication, i.e. head), or iterative reconstruction technique. FINDINGS: There are severe osteoarthritic changes of the right hip with loss of joint space and osteophyte formation. Severe subchondral cystic changes are present. There is some mild fragmentation of the femoral head superiorly with mild lateral subluxation. Subchondral cystic changes involve both the femoral head and the acetabulum. No acute fracture or dislocation is evident. There is a small hip joint effusion. There is diffuse vascular calcification. IMPRESSION: Severe osteoarthritic change of the right hip with subchondral cystic changes mild lateral femoral subluxation, mild fragmentation of the femoral head with small hip joint effusion Dictated by: Ghassan Beth MD 10/21/2020 09:42 Ghassan Beth MD in [place] 10/21/2020 09:42
== END ==
PROVIDERS: PCP Family Medicine; Visit Provider Orthopaedic Surgery
DX: M16.11 Unilateral primary osteoarthritis, right hip (principal); Z01.818 Encounter for other preprocedural examination
CPT/HCPCS: 73700

== ENCOUNTER → 2020-10-24 13:12 | Outpatient (CLI) | payer MEDICARE, MEDICAID, SELFPAY ==
[2020-10-24 16:35] LABS: INR 0.94 (0.9-1.1); Prothrombin Time 11.1 seconds (9.4-11.8)
== END ==
PROVIDERS: Visit Provider Orthopaedic Surgery
DX: Z01.818 Encounter for other preprocedural examination (principal); R06.02 Shortness of breath
CPT/HCPCS: 36415; 85610; 86850; U0003

== ENCOUNTER → 2020-10-24 13:23 | Outpatient (CLI) | payer MEDICARE, MEDICAID, SELFPAY | PROVIDERS: PCP Family Medicine; Visit Provider Orthopaedic Surgery | DX: Z20.822 Contact with and (suspected) exposure to COVID-19 (principal) ==

== ENCOUNTER 2020-10-25 10:50 | Inpatient (IN) | payer MEDICARE, MEDICAID, SELFPAY ==
--- NOTE | 2020-09-23 11:34 | SW/DCPLANNER ---
Addendum entered by [facility] 10/31/20 09:38: I have notified Heidi with [facility]: patient will discharge SNF level of care, COVID swab is NOT needed and will need to continue IV Invanz. Dr Hope has agreed to follow at [facility]. Heidi stated she will accept this patient for today. Patient will transport via ambulance. I have informed patients family. Addendum entered by [facility] 10/28/20 09:14: I have updated G[facility] regarding this patient: chest x ray and PICC line placement today. Patient will need IV antibiotics due to UTI at discharge. I will update patient and family as well. Addendum entered by [facility] 10/27/20 09:37: I have updated patients son this morning regarding acceptance to [facility]. I will speak with patient this morning. Patient continues to be a max assist per therapy. Addendum entered by [facility] 10/26/20 14:40: This patient has been accepted to [facility] per Ghislaine. Ghislaine has stated that she will not have a bed open till Saturday. I will relay information to patient/family. Discharge date is unknown. Addendum entered by [facility] 10/26/20 10:37: Patient is confused this morning: post op day 1 due to UTI. I have called and spoke with patients son regarding discharge plans. Son stated that patient does live alone but grandson lives close by patient. I explained to son that at this time therapy is stating that patient does not SNF level of care prior to returning home. Son is agreeable for me to fax patient information to [facility] at this time ofr Ghislaine to review. Patient information has been faxed to [facility]. Discharge date is unknown at this time. Original Note: I have spoke with this patient regarding discharge plans after her hip surgery scheduled for 09/27/20. Patient stated that she wants to return home after surgery. Patient stated that her son and his family lives within walking distance from her and checks in on her several times a day. Patient stated that she has a walker at home but may need a wheelchair. I did explain to patient that discharge plans would depend on how she does with PT after surgery. I will follow up with this patient once surgery and first PT evaluation is completed.
[2020-09-23 14:29] VITALS: BMI 37.2
[2020-10-24 10:15] VITALS: BMI 37.2
[2020-10-25] VITALS (17 sets, daily range): BP systolic 96–172; BP diastolic 40–76; PULSE 43–58; RESP 12–20; TEMP 35.7–38; O2SAT 89–100; BMI 38.9
--- NOTE | 2020-10-25 08:45 | HMH.ANESCL ---
[facility] Anesthesia Checklist - Patient Identification Patient Identification: Arm Band - Structural Data Admitted From: Home Planned Operative Procedure/s: Total hip arthroplasty Consent for Planned Operative Procedure(s) Verified: Yes - Additional verifications Anesthesia Reactions: No Hx Blood Transfusions: No Blood Transfusion Reaction: No - Airway Assessment C-Spine Mobility Assessed: Yes TMJ Mobility Assessed: Yes (Large tongue) Dentition: Edentulous - Neurological Assessment Level of Consciousness: Awake, Alert, Restless Hx Seizures: No Numbness or tingling in extremities: No - Anesthesia Plan Anesthesia Risk discussed: Yes Anesthesia Plan: Verified ASA Class: III Anesthesia Type: General [facility] History I have reviewed the patient's past medical history: Yes Medical History: Reports:: Aneurysm, Anxiety, Arrhythmia, 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 Denies: Blood Transfusion Reaction Comment:: AGUSTIN - No CPAP use Anesthesia experience/problems:: Spinal didn't take per patient Laterality Cases: Bilateral: Carpal Tunnel Release Other Surgeries: Yes: Cholecystectomy, Colonoscopy, Hysterectomy-Total, Other. No: Pacemaker Amputation: No Fractures: Yes (RIGHT ARM) - *Social History Last grade of school completed: High school graduate Smoking Status: Never smoker Alcohol Intake: never Substance Use Type: denies use *Occupational Status:: disabled Housing: apartment Household Members: other *Travel in the last 8 weeks: None - Psychiatric History Pschychiatric History:: Reports:: Anxiety Family Hx:: Diabetes, Heart Attack, Hypertension, Thyroid Disorder
[2020-10-25 09:13] LABS: Chloride 107 mmol/L (98-107); Potassium 3.9 mmoL/L (3.5-5.1); Sodium 138 mmol/L (136-145)
[2020-10-25 09:16] LABS: Anion Gap 8.9 mEq/L (5-15); Blood Urea Nitrogen 23 mg/dl (7-17); Carbon Dioxide 26 mmol/L (22.0-30.0); Creatinine Clearance Estimated 73 mL/min (50-200); Estimated Glomerular Filt Rate 61 ml/min (>60); GFR (African American) 74 ML/MIN (>60)
[2020-10-25 09:17] LABS: Calcium 9.3 mg/dl (8.4-10.2); Glucose 120 mg/dl (74-100)
--- NOTE | 2020-10-25 11:58 | SUR.OPER ---
1130-family updated at this time
--- NOTE | 2020-10-25 13:44 | P.CONPHA_ITS ---
[facility] Pharmacy VTE Monitoring - Patient Demographics Admission date: 10/25/20 Report Date: 10/25/20 Time: 13:44 Allergies/Adverse Reactions: Patient Allergies pseudoephedrine Allergy (Severe, Verified 10/25/20 08:32) Difficulty Breathing azithromycin Allergy (Unknown, Verified 10/25/20 08:32) Unknown allergy reaction Cephalosporins Allergy (Unknown, Verified 10/25/20 08:32) Gastrointestinal Upset chocolate flavor Allergy (Unknown, Verified 10/25/20 08:32) Unknown allergy reaction clarithromycin Allergy (Unknown, Verified 10/25/20 08:32) Unknown allergy reaction erythromycin base Allergy (Unknown, Verified 10/25/20 08:32) Rash guaifenesin Allergy (Unknown, Verified 10/25/20 08:32) Unknown allergy reaction montelukast Allergy (Unknown, Verified 10/25/20 08:32) Numbness nabumetone [From Relafen] Allergy (Unknown, Verified 10/25/20 08:32) Rash nitrofurantoin Allergy (Unknown, Verified 10/25/20 08:32) Unknown allergy reaction NSAIDS (Non-Steroidal Anti-Inflamma Allergy (Unknown, Verified 10/25/20 08:32) Unknown allergy reaction Penicillins Allergy (Unknown, Verified 10/25/20 08:32) Unknown allergy reaction prednisone Allergy (Unknown, Verified 10/25/20 08:32) Unknown allergy reaction Sulfa (Sulfonamide Antibiotics) Allergy (Unknown, Verified 10/25/20 08:32) Unknown allergy reaction clindamycin Adverse Reaction (Unknown, Verified 10/25/20 08:32) Gastrointestinal Upset codeine Adverse Reaction (Unknown, Verified 10/25/20 08:32) Gastrointestinal Upset doxycycline Adverse Reaction (Unknown, Verified 10/25/20 08:32) MAKES THE BACKS OF EYES HURT fexofenadine [From Sudha] Adverse Reaction (Unknown, Verified 10/25/20 08:32) INFLAMED INSIDE OF NOSE fluticasone [From Advair Diskus] Adverse Reaction (Unknown, Verified 10/25/20 08:32) HURTS IN THE INSIDE OF NOSE imipramine Adverse Reaction (Unknown, Verified 10/25/20 08:32) BLADDER PAIN/SLOW DRAINAGE metoclopramide [From Reglan] Adverse Reaction (Unknown, Verified 10/25/20 08:32) Gastrointestinal Upset mometasone furoate [From Nasonex] Adverse Reaction (Unknown, Verified 10/25/20 08:32) Cough paroxetine [From Paxil] Adverse Reaction (Unknown, Verified 10/25/20 08:32) Agitated salmeterol [From Advair Diskus] Adverse Reaction (Unknown, Verified 10/25/20 08:32) HURTS IN THE INSIDE OF NOSE tramadol Adverse Reaction (Unknown, Verified 10/25/20 08:32) Dizziness acetaminophen [From Lortab] Adverse Reaction (Verified 10/25/20 08:32) Gastrointestinal Upset hydrocodone [From Lortab] Adverse Reaction (Verified 10/25/20 08:32) Gastrointestinal Upset Height: 1.6 m Weight: 95.254 kg - VTE Risk Labs: VTE Related Lab Results BUN 23 mg/dl (7-17) H 10/25/20 09:02 Creatinine 0.90 mg/dl (0.52-1.04) 10/25/20 09:02 Estimated Creat Clear 73 mL/min (50-200) 10/25/20 09:02 Clinical Trial Participant: No - Prophylaxis VTE Prophylaxis Ordered?: Yes Types of VTE Prophylaxis: TEDS Knee High
--- NOTE | 2020-10-25 14:47 | SUR.OPER ---
1448- updated family at this time
--- NOTE | 2020-10-25 15:10 | XR_ITS ---
PROCEDURE: XR HIP RT 2-3V W/PELVIS CLINICAL INDICATION: post op right hip total arthroplasty COMPARISON: CR XR HIP RT 2-3V W/PELVIS from 09/19/2020 FINDINGS: S/p total hip replacement with good alignment. There is a cerclage wire at the trochanteric region. Postsurgical gas and clips are present. IMPRESSION: Good alignment status post total right hip replacement Dictated by: Ghassan Beth MD 10/25/2020 15:49 Ghassan Beth MD in [place] 10/25/2020 15:49
--- NOTE | 2020-10-25 15:25 | HMH.ANESI ---
[facility] Anesthesia Record Part I Intake, IV Amount: 2,500 Estimated blood loss (mL): 1,800 Urine output (mL): 250 Blood Pressure: 96/40 SaO2: 100 Pulse Rate: 43 Respiratory Rate: 12 Temperature: 97.5 F Patient is:: Awake, Stable Stable to PACU at:: 15:20
--- NOTE | 2020-10-25 15:30 | HMH.OPNOTE ---
Date of procedure: 10/25/20 Pre-op Diagnosis:: R hip degenerative joint disease Post-op Diagnosis:: R hip degenerative joint disease Procedure performed:: R total hip arthroplasty Surgeon:: Yuki Zavala MD Nuclear Physics Teacher(s):: Ramona Henson GOVERNMENT AFFAIRS FELLOW:: Dawood Landaverde Anesthesia: MAC, spinal Estimated blood loss (mL): 500 Clinical Note:: 75-year-old female with severe degenerative joint disease R hip, reports pain x1 year. No prior surgeries on this hip reported. She takes meloxicam and po dilaudid for pain relief, which is felt to be effective. She is on a daily aspirin but no anticoagulants. Past surgeries include tooth extraction and right total knee arthroplasty. She rates her current hip pain as 10 out of 10 both at rest and with activity. Ambulation, getting in and out of vehicles, on and off the toilet seat, as well as activities of daily living are becoming more of a struggle for her. I recommended total hip arthroplasty and she is in agreement with the procedure: she was medically cleared by both cardiology and her primary care physician. She denies any recent chest pain, shortness of breath, exposure to COVID-19. I discussed the risks and benefits of total hip arthroplasty with the pateint at length, in addition to the expected perioperative course, hospital stay and need for postoperative physical therapy. We also discussed the risks of surgery, which include but are not limited to: bleeding, infection, intraoperative fracture, neurovascular damage including postoperative foot drop, periprosthetic fracture postoperatively, postoperative hip dislocation, need for possible revision surgery in the future, wound healing complications, and the possibility of continued pain and/or disability despite surgery. The patient vocalized understanding and provided informed consent. Operative findings:: IMPLANTS: [employer] Redapt acetabular shell, 56mm OD OR3O bearings; 28mm +0 inner head Synergy stem, press fit size 14 standard neck/standard offset cable x1 suture anchor x3 (nair medical x1, arthrex x2) Operative note:: The patient was identified in preoperative holding and the R hip signed by myself. Consent was verified with the patient and all questions answered. She was then taken to the operating room where spinal anesthesia was administered by GOVERNMENT AFFAIRS FELLOW while the patient remained on her cart. After the spinal was completed she was transferred to the OR table and placed in the left lateral decubitus position; all bony prominences were well-padded. 1750mg vancomycin were infused intravenously and sedation administered to the patient. SCD was placed on the bottom non-operative leg, and the right hip was prepped and draped in the usual sterile fashion. Timeout was performed, identifying the correct patient, correct procedure and correct site. Just prior to incision, the first dose of tranexamic acid was administered. The procedure was begun by making a longitudinal, curvilinear incision over the posterolateral aspect the the R hip, centered over the greater trochanter. Subcutaneous tissue was dissected with cautery until fascia was encountered. The fascia was incised in line with the shaft of the femur distally and curved proximally; fibers of the gluteus holli were bluntly spread with finger dissection. Underlying abductors were scarred and adhered to the overlying fascia and they were inadvertently transected; they were repaired at the end of the case. Charnley retractor was placed under the fascia. The short external rotators were identified and the piriformis tagged and reflected off the femur. Capsulotomy was completed and leaflets tagged; the capsule was scarred to the femoral neck and there was a moderate sized hemorrhagic effusion. Femoral neck cut was made one fingerbreadth superior to the lesser trochanter, using the patient's natural neck angle. The head was removed intact and noted to be yellowish, soft, nearly rectangular and with mul
--- NOTE | 2020-10-25 15:31 | HMH.HP ---
*Admission Date: 10/25/20 *Chief complaint: R hip DJD *History of present illness: 75-year-old female with severe degenerative joint disease R hip, reports pain x1 year. No prior surgeries on this hip reported. She takes meloxicam and po dilaudid for pain relief, which is felt to be effective. She is on a daily aspirin but no anticoagulants. Past surgeries include tooth extraction and right total knee arthroplasty. She rates her current hip pain as 10 out of 10 both at rest and with activity. Ambulation, getting in and out of vehicles, on and off the toilet seat, as well as activities of daily living are becoming more of a struggle for her. I recommended total hip arthroplasty and she is in agreement with the procedure: she was medically cleared by both cardiology and her primary care physician. She denies any recent chest pain, shortness of breath, exposure to COVID-19. I discussed the risks and benefits of total hip arthroplasty with the pateint at length, in addition to the expected perioperative course, hospital stay and need for postoperative physical therapy. We also discussed the risks of surgery, which include but are not limited to: bleeding, infection, intraoperative fracture, neurovascular damage including postoperative foot drop, periprosthetic fracture postoperatively, postoperative hip dislocation, need for possible revision surgery in the future, wound healing complications, and the possibility of continued pain and/or disability despite surgery. The patient vocalized understanding and provided informed consent. 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 Denies: Blood Transfusion Reaction Anesthesia experience/problems:: Spinal didn't take per patient Laterality Cases: Bilateral: Carpal Tunnel Release Other Surgeries: Yes: Cholecystectomy, Colonoscopy, Hysterectomy-Total, Other. No: Pacemaker Amputation: No Fractures: Yes (RIGHT ARM) - *Social History Last grade of school completed: High school graduate Smoking Status: Never smoker Alcohol Intake: never Substance Use Type: denies use *Occupational Status:: disabled Housing: apartment Household Members: other *Travel in the last 8 weeks: None - Psychiatric History Pschychiatric History:: Reports:: Anxiety Family Hx:: Diabetes, Heart Attack, Hypertension, Thyroid Disorder Review of Systems - Review of Systems Review of systems:: pertinent systems reviewed and negative unless documented below Meds Home Medications Medication Instructions Recorded Confirmed Type aspirin 81 mg tablet,delayed 81 mg PO DAILY 02/16/20 10/25/20 History release cetirizine 10 mg capsule 10 mg PO DAILY cap 02/16/20 10/25/20 History diltiazem HCl 180 mg 180 mg PO DAILY 02/16/20 10/25/20 History capsule,extended release 24 hr hydrochlorothiazide 25 mg tablet 25 mg PO DAILY PRN 02/16/20 10/25/20 History hydromorphone 2 mg tablet 2 mg PO Q4H PRN 02/16/20 10/25/20 History levothyroxine 25 mcg tablet 25 mcg PO DAILY 02/16/20 10/25/20 History meclizine 25 mg tablet 25 mg PO TIDP PRN 02/16/20 10/25/20 History meloxicam 15 mg tablet 15 mg PO DAILY 02/16/20 10/25/20 History nadolol 80 mg tablet 80 mg PO DAILY 02/16/20 10/25/20 History sertraline 100 mg tablet 100 mg PO DAILY 02/16/20 10/25/20 History ciprofloxacin HCl 500 mg tablet 500 mg PO BID 7 Days #14 tab 10/15/20 10/25/20 Rx Allergies Allergy/AdvReac Type Severity Reaction Status
[2020-10-25 15:44] LABS: Hematocrit 28.3 % (37.0-47.0)
--- NOTE | 2020-10-25 15:57 | PC.NURSE ---
Pt arrived to the floor at this time.
[2020-10-25 16:07] LABS: Microscopic,Cath URINE MICROSCOPIC (MICROSCOPIC)
[2020-10-25 16:11] LABS: Appearance,Urine/Cath CLEAR (Clear); Bilirubin,Cath Negative (Negative); Blood, Urine/Cath Negative (Negative); Color,Urine/Cath YELLOW (Yellow); Glucose,Urine/Cath (UA) Negative (Negative); Ketones,Urine/Cath Negative (Negative); Leukocyte Esterase,Cath Negative (Negative); Nitrate,Cath Negative (Negative); Protein,Urine/Cath Negative (Negative); Urobilinogen,Cath 0.2 EU/dl (0.2)
--- NOTE | 2020-10-25 16:12 | SUR.PHASEI ---
1548: pt. stable in PACU. No complaints of pain. Pt. unable to wiggle toes or feel touch on feet. Right hip dressing remains CDI, and abduction pillow secure. reported H&H to Dr. Zavala. Pt responds well to questions asked but states she is sleepy. V/S stable. Report called to Jackeline Landry RN.
[2020-10-25 16:22] LABS: Bacteria,Urine/Cath 3+ /lpf
--- NOTE | 2020-10-25 20:01 | PC.NURSE ---
PT IS RESTING IN BED. WHEN PT ARRIVED TO THE FLOOR SHE HAD A LOW GRADE TEMP OF 96.3 AXILLARY. PT WAS COVERED WITH WARM BLANKETS. POLAR PACK WAS NOT APPLIED INITIALLY B/C TEMP WAS LOW. PT HAD A LARGE BOWEL MOVEMENT AT 1800 AND WAS MEDICATED FOR PAIN. ATTEMPTED TO APPLY POLAR PACK TO THE RT HIP AND PT STATED SHE DID NOT WANT IT RIGHT NOW B/C SHE WAS FREEZING. PT'S 1800 TEMP WAS 97.6. ABDUCTOR PILLOW IN PLACE. JOCELYN NOTED TO LLE. DRESSING TO THE RT HIP C/D/I. PT NEEDS ENCOURAGEMENT TO TURN AND REPOSITION IN BED. REPORT HAND OFF TO KANDI MIRELES RN.
[2020-10-26] VITALS (9 sets, daily range): BP systolic 100–139; BP diastolic 49–75; PULSE 54–65; RESP 16–20; TEMP 36.1–37.8; O2SAT 91–97
--- NOTE | 2020-10-26 03:24 | PC.NURSE ---
Pt A&O x4 and has slept well through the night. Adductor pillow is in place, pt has refused turns tonight. Pt has c/o of pain in the left hip, dilaudid has been given x1 with desired effects. lungs are CTA, on room air. bowel sounds x4, abd soft and nontender. pt is voiding clear/yellow urine via [place]. pt has been tolerating diet well. VSS, call light in reach, no concerns at this time.
--- NOTE | 2020-10-26 05:31 | PC.NURSE ---
PT IS IN A NON-WEIGHING BED . UNABLE TO OBTAIN WEIGHT
--- NOTE | 2020-10-26 08:51 | HMH.ACPN2 ---
<Nettie Jay - Last Filed: 10/26/20 11:50> Internal Medicine - PN: Subj *Date: 10/26/20 *Time: 11:50 Interval history: Ms thank. see is a 75-year-old female with a history of chronic sinusitis, migraine headache, anxiety, depression, osteoarthritis, left ventricular hypertrophy, mitral valve regurgitation, and narcolepsy who had a planned right total hip arthroplasty per Dr. Mendoza yesterday 10/25/2020.. This is postop day #1. She is noted to have multiple med and food allergies which are listed under summary. She has been receiving p.o. Dilaudid q4h prn at home for the pain. Patient currently is miserable. She states she is dying because she hurts so much around the right hip.. She denies chest pain and shortness of breath. Exam Vital signs and Labs for Last 24 Hours: Temp Pulse Resp BP Pulse Ox 100.0 F H 64 16 132/75 91 L 10/26/20 08:00 10/26/20 08:00 10/26/20 08:00 10/26/20 08:00 10/26/20 08:00 Laboratory Results - last 24 hr 10/25/20 09:02: Sodium 138, Potassium 3.9, Chloride 107, Carbon Dioxide 26, Anion Gap 8.9, BUN 23 H, Creatinine 0.90, Estimated Creat Clear 73, Estimated GFR 61, Est GFR ( Amer) 74, Glucose 120 H, Calcium 9.3 10/25/20 15:30: Hgb 9.0 L, Hct 28.3 L 10/25/20 : Urine Color Yellow, Urine Appearance Clear, Urine pH 6.0, Ur Specific [place] 1.020, Urine Protein Negative, Urine Glucose (UA) Negative, Urine Ketones Negative, Urine Blood Negative, Urine Nitrate Negative, Urine Bilirubin Negative, Urine Urobilinogen 0.2, Ur Leukocyte Esterase Negative, Urine RBC 5-10, Urine WBC 10-20 A, Ur Squamous Epith Cells 3-5, Urine Bacteria 3+ A I & O for Last 24 hours: Intake & Output 10/23/20 10/24/20 10/25/20 10/26/20 11:59 11:59 11:59 11:59 Intake Total 2740 / 2740 Output Total 700 / 700 Balance 2039 / 2039 Weight 210 lb 220 lb Microbiology Reports for the Last 24 Hours: Microbiology 10/25/20 Unknown Urine,Catheterized Urine Culture - Preliminary Gram Negative Rods - Constitutional no acute distress Comments: Sitting up in a chair with legs elevated with wedge between the legs. Constantly communicating that she is hurting. - *Routine Respiratory Exam Present: CTA bilaterally (Very poor inspiratory effort) - *Routine Cardiovascular Exam Present: RRR - *Routine Abdominal Exam Present: soft, normoactive bowel sounds. Absent: tenderness - *Routine Extremities Exam Present: pulses intact. Absent: edema Comments: Wedge between legs. Dressing over right hip is clean and dry. - *Routine Neurological Exam Present: alert, oriented X3 Assessment and Plan (1) Hypothyroidism Status: Acute Category: Medical Code(s): E03.9 - Hypothyroidism, unspecified (2) Osteoarthritis Status: Acute Category: Medical Code(s): M19.90 - Unspecified osteoarthritis, unspecified site (3) Atrial fibrillation Status: Chronic Qualifiers: Atrial fibrillation type: paroxysmal Qualified Code(s): I48.0 - Paroxysmal atrial fibrillation Category: Medical Code(s): I48.91 - Unspecified atrial fibrillation (4) Narcolepsy Status: Acute Category: Medical Code(s): G47.419 - Narcolepsy without cataplexy (5) Multiple drug allergies Status: Acute Category: Medical Code(s): Z88.9 - Allergy status to unspecified drugs, medicaments and biological substances (6) Anxiety Status: Acute Category: Medical Code(s): F41.9 - Anxiety disorder, unspecified (7) Pain due to total hip replacement Status: Acute Category: Medical Code(s): T84.84XA - Pain due to internal orthopedic prosthetic devices, implants and grafts, initial encounter; Z96.649 - Presence of unspecified artificial hip joint (8) Aftercare following hip joint replacement surgery Status: Acute Category: Medical Code(s): Z47.1 - Aftercare following joint replacement surgery; Z96.649 - Presence of unspecified artificial hip joint
--- NOTE | 2020-10-26 09:16 | HMH.OTEV ---
OT Inpatient Evaluation Rehab OT IP Evaluation Start: 10/25/20 15:20 Freq: ONCE Status: Complete Protocol: [facility]20 [facility] (Rec: 10/26/20 09:15 [facility] [id number]) Rehab OT IP Assessment Subjective History Pt oriented x2 on arrival. Pt agreeable to engage in therapy evaluation. Pt was admitted on 10/25/20 following a R hip total arthroplasty due to R hip DJD. Pt has a past medical history of Aneurysm, Anxiety, Arrhythmia, CA, GERD, HTN, and MRSA. Pt reports prior to surgery she lived in a house. Pt claims her family lives beside her and they check on her daily. Pt claims she is independent with ADLs such as feeding, sponge bathing, and dressing. Her family completes all IADLs. Pt did use a rolling walker prior to surgery. Subjective I'm in hell. Objective Patient Orientation Person,Birthday Upper Extremity Gross ROM WFL Bed Mobility bed mobility-scooting,bed mobility - supine/sit,bed mobility - rolling Assist Level Maximum x 2 (75% assist) Transfer Training Sit/Stand/Pivot Transfer Assist Level Maximum x 2 (75% assist) Chair Transfer Ability Maximum x 2 (75% assist) Chair Transfer Technique Squat Pivot Rehab OT IP prob,goals,plan Problems Date of Evaluation: 10/26/20 OT IP Problems Bed Mobility,Transfers,Gait, Balance,Self care,Safety Rehab Potential Rehab Potential Good Equipment Needs Assistive Devices Rolling / Wheeled Walker Plan OT intervention Plan Bed Mobility,Transfers,Gait, Balance,Self care,Safety, Therapeutic Exercise OT Plan Frequency Daily Duration LOS Discharge Goals Bed Mobility Ability Assistance x1 Sit to Stand Chair Transfer Ability Moderate x 1 (50% assist) Chair Transfer Ability Moderate x 1 (50% assist) Chair Transfer Technique Sit to/from Ambulatory Chair Transfer Assistive Devices Rolling Walker Feeding Ability Assist with Tray Set Up Lower Body Dressing Ability Assistance X1 Upper Body Dressing Ability
--- NOTE | 2020-10-26 09:20 | HMH.PTEV ---
Physical Therapy Evaluation Rehab PT IP Evaluation Start: 10/25/20 15:20 Freq: ONCE Status: Active Protocol: Document 10/26/20 09:11 [facility] (Rec: 10/26/20 09:20 [facility] [id number]) Subjective/History History History This is the initial IP PT evaluation for Lian Bliss. Pt is a 75 y/o female admitted to [facility] s/p R VISHAL due to severe degenerative changes and loss of function. Pt lives in home w/ family support from close by. Pt was very sarcastic and dfficult to get straight answers out of. Subjective Subjective Pt c/o severe pain Rehab PT IP Eval Objective Appearance Patient Behavior Dependent,Guarded Patient Orientation Name,Birthday Difficulty following instructions mild Speech Pattern Clear Ambulation Patient Able to Ambulate No Balance Ability to Arise Unable Sitting Balance Leans or slides in chair Standing Balance Unsteady Dynamic Sitting Balance Ability Fair Dynamic Standing Balance Ability Poor Transfers Bed Transfer Ability Maximum x 2 (75% assist) Chair Transfer Ability Maximum x 2 (75% assist) Sit to Stand Bed Transfer Ability Maximum x 2 (75% assist) Sit to Stand Chair Transfer Ability Maximum x 2 (75% assist) ROM RLE PT ROM Status ABN Abnormal ROM Comment severe limit due to pain MMT RLE PT MMT ABN Abnormal MMT Grade severe limit due to pain Rehab PT IP prob,goals,plan Problems Date of Evaluation: 10/26/20 PT IP Problems Bed Mobility,Transfers,Gait, Balance,Self care,Safety Rehab Potential Rehab Potential Poor Equipment Needs Assistive Devices Rolling / Wheeled Walker, Wheelchair Plan PT Intervention Plan Bed Mobility,Transfers,Gait, Balance,Self care,Safety, Therapeutic Exercise PT Plan Frequency BID Duration LOS Discharge Goals Bed Transfer Ability Maximum x 2 (75% assist) Sit to Stand Chair Transfer Ability Maximum x 2 (75% assist) Ambulation Assistive Device Rolling Walker Ambulation Distance (feet) 2 Discharge Plan PT Discharge Plan Pt to need skilled therapy at SNF for return to improved level of function and improved indepen
[2020-10-26 09:51] LABS: Basophils % 0.3 % (0.1-2.0); Eosinophils % 0.2 % (0.1-12.0); Hematocrit 26.9 % (37.0-47.0); Hemoglobin 8.8 g/dL (12.2-16.2); Lymphocytes # 1.1 K/mm3 (0.7-4.5); Lymphocytes % 10.2 % (10-50); Mean Corpuscular HGB Conc 32.5 g/dL (31.8-35.4); Mean Corpuscular Hemoglobin 26.5 pg (27.0-31.2); Mean Corpuscular Volume 81.4 fl (81-99); Mean Platelet Volume 9.7 fl (7.4-10.4); Monocytes # 0.7 K/mm3 (0.1-1.0); Neutrophils # 8.8 K/mm3 (1.8-7.8); Neutrophils % 82.4 % (37.0-80.0); Platelet Count 149 K/mm3 (142-424); Red Blood Count 3.31 M/mm3 (4.20-5.40); Red Cell Distribution Width 15.5 % (11.5-17.5); White Blood Count 10.6 K/mm3 (4.8-10.8)
[2020-10-26 10:00] LABS: Chloride 111 mmol/L (98-107); Potassium 3.8 mmoL/L (3.5-5.1); Sodium 136 mmol/L (136-145)
[2020-10-26 10:02] LABS: Alanine Aminotransferase 15 U/L (12-78); Aspartate Amino Transferase 32 U/L (14-36); Blood Urea Nitrogen 22 mg/dl (7-17); Creatinine Clearance Estimated 77 mL/min (50-200); Estimated Glomerular Filt Rate 61 ml/min (>60); GFR (African American) 74 ML/MIN (>60)
[2020-10-26 10:03] LABS: Albumin/Globulin Ratio 1.2 (1.1-1.8); Alkaline Phosphatase 57 U/L (38-126); Anion Gap 8.8 mEq/L (5-15); Bilirubin,Total 0.5 mg/dl (0.2-1.3); Calcium 8.4 mg/dl (8.4-10.2); Carbon Dioxide 20 mmol/L (22.0-30.0); Globulin 2.6 g/dL (1.3-3.2); Glucose 160 mg/dl (74-100); Total Protein,Serum 5.6 g/dl (6.3-8.2)
--- NOTE | 2020-10-26 13:11 | HMH.ORTHPN ---
Subjective Date: 10/26/20 Time: 12:30 Principal diagnosis: Status post total hip arthroplasty, right Interval history: Patient is status post right total hip arthroplasty post op day #1. Patient is sitting out in the chair. She says she is having a lot of pain around the right hip and at the back of the right knee. Nursing staff reports that they have been giving her regular IV Dilaudid which is making her drowsy. She has not been receiving any oral pain medication. No history of any nausea or vomiting. No history of any cough, chest pain, shortness of breath or palpitations. No history of any distal tingling or numbness. PN: Obj Ex Vital signs: Temp Pulse Resp BP Pulse Ox 98.4 F 64 16 125/49 L 91 L 10/26/20 11:12 10/26/20 11:12 10/26/20 11:12 10/26/20 11:12 10/26/20 11:12 Narrative: Laboratory Results - last 24 hr 10/25/20 15:30: Hgb 9.0 L, Hct 28.3 L 10/25/20 : Urine Color Yellow, Urine Appearance Clear, Urine pH 6.0, Ur Specific [place] 1.020, Urine Protein Negative, Urine Glucose (UA) Negative, Urine Ketones Negative, Urine Blood Negative, Urine Nitrate Negative, Urine Bilirubin Negative, Urine Urobilinogen 0.2, Ur Leukocyte Esterase Negative, Urine RBC 5-10, Urine WBC 10-20 A, Ur Squamous Epith Cells 3-5, Urine Bacteria 3+ A 10/26/20 09:40: WBC 10.6, RBC 3.31 L, Hgb 8.8 L, Hct 26.9 L, MCV 81.4, MCH 26.5 L, MCHC 32.5, RDW 15.5, Plt Count 149, MPV 9.7, Neut % (Auto) 82.4 H, Lymph % (Auto) 10.2, [place] % (Auto) 7.0, Eos % (Auto) 0.2, Baso % (Auto) 0.3, Neut # (Auto) 8.8 H, Lymph # (Auto) 1.1, [place] # (Auto) 0.7, Eos # (Auto) 0.0, Baso # (Auto) 0.0 10/26/20 09:40: Sodium 136, Potassium 3.8, Chloride 111 H, Carbon Dioxide 20 L D, Anion Gap 8.8, BUN 22 H, Creatinine 0.90, Estimated Creat Clear 77, Estimated GFR 61, Est GFR ( Amer) 74, Glucose 160 H, Calcium 8.4, Total Bilirubin 0.5, AST 32, ALT 15, Alkaline Phosphatase 57, Total Protein 5.6 L, Albumin 3.0 L, Globulin 2.6, Albumin/Globulin Ratio 1.2 Intake & Output 10/24/20 10/25/20 10/26/20 10/27/20 11:59 11:59 11:59 11:59 Intake Total 2740 / 2740 Output Total 700 / 700 Balance 2039 / 2039 Weight 210 lb 220 lb Exam General appearance: Drowsy; answering questions appropriately but dozing off between conversation; no acute distress Cardiovascular: regular rate & rhythm, normal peripheral pulses Respiratory: No respiratory distress noted ABD: soft and non tender Neuro: alert, drowsy but arousable easily On examination of the lower extremities the limb lengths are equal. Thigh and calf are soft and nontender. On examination of the right hip the dressings are clean, dry and intact. No soakage or strikethrough noted. Distal pulses are 2+. Distal sensation is intact to light touch throughout. Actively moving the foot and ankle bilaterally. - Urinary Catheter Management Condom Cath placed during this visit: no Ag Cath placed during this visit: no Progress Note: A&P (1) Hypothyroidism Status: Acute (2) Osteoarthritis Status: Acute (3) Atrial fibrillation Status: Chronic (4) Narcolepsy Status: Acute (5) Multiple drug allergies Status: Acute (6) Anxiety Status: Acute (7) Pain due to total hip replacement Status: Acute (8) Aftercare following hip joint replacement surgery Status: Acute (9) Migraine headache Status: Chronic Assessment and Plan for All Diagnoses:: I have reviewed the clinical findings and progress with the patient. Patient is overall doing well but reports significant right hip and right knee pain. She is getting IV Dilaudid almost every 3 hours but has not been receiving any oral pain medication. I have discussed the pain management with the nursing staff and recommended as needed oral pain medication along with as needed Tylenol. He should only get the IV pain medication for break through pain as needed in between her oral pain medication. Continue PT OT and toe-touch
--- NOTE | 2020-10-26 15:08 | PC.NURSE ---
SHE HAS REFUSED POLAR PACK MULTIPLE TIMES THIS SHIFT, SHE IS AOX4 IS DELAYED AT TIMES N HER RESPONDE IN HER RESPONSE, SHE HAS REQUIRED O2 SUPPORT T/O SHIFT, LUNGS REMAIN CTA, INCENTIVE SPIROMETER AT BEDSIDE AND PT WAS EDUCATED ON USE, HER ABDOMEN IS SOFT ROUND AND NON-TENDER WITH ACTIVE BOWEL SOUNDS ON AUSCULTATION, SHE HAS SLEPT FOR MOST OF THIS NURSES SHIFT, SHE DID GET UP TO THE CHAIR BUT WAS A MAX ASSIST AND DID NOT TAKE STEPS, LIFT PAD HAS BEEN PLACED UNDER PT RECOMMENDED BY PHYSICAL THERAPY DEPT.
--- NOTE | 2020-10-26 15:38 | HMH.PHAINT ---
VERIFIED HOME MED LIST USING OUTPATIENT PHARMACY LIST
--- NOTE | 2020-10-26 17:29 | P.PN_ITS ---
[facility] Anesthesia Record Part II Discharge Time: 15:50 Destination: Medical Surgical Department PACU nurse assessment reviewed?: Yes Patient Condition:: Good Anesthesia Complications:: None Swallowing reflex intact?: Yes Cyanosis?: No Blood Pressure: 100/52 Pulse Rate: 54 Temperature: 97 F Mental Status: Alert & Oriented Pain level:: 0 Nausea and/or vomitting:: None Intake, IV Amount: 0
--- NOTE | 2020-10-26 18:57 | PC.NURSE ---
PUREWICK APPLIED TO PROMOTE PT COMFORT.
--- NOTE | 2020-10-26 20:24 | PC.NURSE ---
RA SATS 83% . RETURN PT TO 2L N/C
[2020-10-27] VITALS (18 sets, daily range): BP systolic 120–148; BP diastolic 43–85; PULSE 62–68; RESP 17–19; TEMP 36.5–37.6; O2SAT 87–98
[2020-10-27 06:46] LABS: Basophils % 0.2 % (0.1-2.0); Eosinophils % 0.4 % (0.1-12.0); Lymphocytes # 1.1 K/mm3 (0.7-4.5); Mean Corpuscular HGB Conc 32.2 g/dL (31.8-35.4); Mean Corpuscular Hemoglobin 26.5 pg (27.0-31.2); Mean Corpuscular Volume 82.4 fl (81-99); Mean Platelet Volume 9.8 fl (7.4-10.4); Monocytes # 0.6 K/mm3 (0.1-1.0); Neutrophils # 7.4 K/mm3 (1.8-7.8); Neutrophils % 80.4 % (37.0-80.0); Platelet Count 126 K/mm3 (142-424); Red Blood Count 2.83 M/mm3 (4.20-5.40); Red Cell Distribution Width 15.8 % (11.5-17.5); White Blood Count 9.2 K/mm3 (4.8-10.8)
[2020-10-27 06:57] LABS: Anion Gap 9.6 mEq/L (5-15); Blood Urea Nitrogen 26 mg/dl (7-17); Calcium 8.3 mg/dl (8.4-10.2); Carbon Dioxide 22 mmol/L (22.0-30.0); Chloride 106 mmol/L (98-107); Creatinine Clearance Estimated 77 mL/min (50-200); Estimated Glomerular Filt Rate 54 ml/min (>60); GFR (African American) 65 ML/MIN (>60); Glucose 118 mg/dl (74-100); Potassium 3.6 mmoL/L (3.5-5.1); Sodium 134 mmol/L (136-145)
[2020-10-27 07:13] LABS: Hematocrit 23.3 % (37.0-47.0); Hemoglobin 7.5 g/dL (12.2-16.2)
--- NOTE | 2020-10-27 07:36 | PC.NURSE ---
@ [address] Zavala of critical HgB & Hct of 7.5 and 23.3. ordered 1 units of PRBC with 1 hr post H&H. order placed in computer and updated oncoming RN, Gaudencio Barone
--- NOTE | 2020-10-27 08:30 | HMH.ACPN2 ---
<Alexandra Nguyen - Last Filed: 10/27/20 08:30> Internal Medicine - PN: Subj *Date: 10/27/20 *Time: 08:30 Interval history: Patient states she feels very lethargic right now. She just had some pain medication and says her leg is not hurting. She was trying to eat breakfast before she received pain medication, but now just wants to sleep. Exam Vital signs and Labs for Last 24 Hours: Temp Pulse Resp BP Pulse Ox 97.7 F 68 19 127/56 L 97 10/27/20 07:21 10/27/20 07:21 10/27/20 07:21 10/27/20 07:21 10/27/20 07:21 Laboratory Results - last 24 hr 10/26/20 09:40: WBC 10.6, RBC 3.31 L, Hgb 8.8 L, Hct 26.9 L, MCV 81.4, MCH 26.5 L, MCHC 32.5, RDW 15.5, Plt Count 149, MPV 9.7, Neut % (Auto) 82.4 H, Lymph % (Auto) 10.2, [place] % (Auto) 7.0, Eos % (Auto) 0.2, Baso % (Auto) 0.3, Neut # (Auto) 8.8 H, Lymph # (Auto) 1.1, [place] # (Auto) 0.7, Eos # (Auto) 0.0, Baso # (Auto) 0.0 10/26/20 09:40: Sodium 136, Potassium 3.8, Chloride 111 H, Carbon Dioxide 20 L D, Anion Gap 8.8, BUN 22 H, Creatinine 0.90, Estimated Creat Clear 77, Estimated GFR 61, Est GFR ( Amer) 74, Glucose 160 H, Calcium 8.4, Total Bilirubin 0.5, AST 32, ALT 15, Alkaline Phosphatase 57, Total Protein 5.6 L, Albumin 3.0 L, Globulin 2.6, Albumin/Globulin Ratio 1.2 10/27/20 06:18: WBC 9.2, RBC 2.83 L, Hgb 7.5 L*, Hct 23.3 L*, MCV 82.4, MCH 26.5 L, MCHC 32.2, RDW 15.8, Plt Count 126 L, MPV 9.8, Neut % (Auto) 80.4 H, Lymph % (Auto) 12.0, [place] % (Auto) 7.0, Eos % (Auto) 0.4, Baso % (Auto) 0.2, Neut # (Auto) 7.4, Lymph # (Auto) 1.1, [place] # (Auto) 0.6, Eos # (Auto) 0.0, Baso # (Auto) 0.0 10/27/20 06:18: Sodium 134 L, Potassium 3.6, Chloride 106, Carbon Dioxide 22, Anion Gap 9.6, BUN 26 H, Creatinine 1.00, Estimated Creat Clear 77, Estimated GFR 54 L, Est GFR ( Amer) 65, Glucose 118 H D, Calcium 8.3 L I & O for Last 24 hours: Intake & Output 10/24/20 10/25/20 10/26/20 10/27/20 11:59 11:59 11:59 11:59 Intake Total 2740 / 2740 1780 / 1780 Output Total 700 / 700 700 / 700 Balance 2040 / 2040 1080 / 1080 Weight 210 lb 220 lb Microbiology Reports for the Last 24 Hours: Microbiology 10/25/20 Unknown Urine,Catheterized Urine Culture - Preliminary Gram Negative Rods - Constitutional no acute distress - *Routine Respiratory Exam Present: CTA bilaterally - *Routine Cardiovascular Exam Present: RRR - *Routine Abdominal Exam Present: soft, normoactive bowel sounds. Absent: tenderness - *Routine Extremities Exam Absent: cyanosis, clubbing, edema - *Routine Neurological Exam Present: alert, oriented X3 Assessment and Plan (1) Hypothyroidism Status: Acute Category: Medical Code(s): E03.9 - Hypothyroidism, unspecified (2) Osteoarthritis Status: Acute Category: Medical Code(s): M19.90 - Unspecified osteoarthritis, unspecified site (3) Atrial fibrillation Status: Chronic Qualifiers: Atrial fibrillation type: paroxysmal Qualified Code(s): I48.0 - Paroxysmal atrial fibrillation Category: Medical Code(s): I48.91 - Unspecified atrial fibrillation (4) Narcolepsy Status: Acute Category: Medical Code(s): G47.419 - Narcolepsy without cataplexy (5) Multiple drug allergies Status: Acute Category: Medical Code(s): Z88.9 - Allergy status to unspecified drugs, medicaments and biological substances (6) Anxiety Status: Acute Category: Medical Code(s): F41.9 - Anxiety disorder, unspecified (7) Pain due to total hip replacement Status: Acute Category: Medical Code(s): T84.84XA - Pain due to internal orthopedic prosthetic devices, implants and grafts, initial encounter; Z96.649 - Presence of unspecified artificial hip joint (8) Aftercare following hip joint replacement surgery Status: Acute Category: Medical Code(s): Z47.1 - Aftercare following joint replacement surgery; Z96.649 - Presence of unspecified artificial hip joint (9) Migraine headache Status
--- NOTE | 2020-10-27 08:32 | PC.NURSE ---
PT IS AGREEABLE TO TRANSFUSION OF PACKED RED BLOOD CELLS, SHE ASKED THAT HER SON LUISA CURRY BE INFORMED OF SITUATION AND VERBAL CONSENT WAS OBTAINED FROM HIM WELL.
--- NOTE | 2020-10-27 11:15 | HMH.ORTHPN ---
Subjective Date: 10/27/20 Time: 11:00 Principal diagnosis: Status post total hip arthroplasty, right Interval history: The patient has a hemoglobin of 7.5 this morning, transfusion started. UTI present, culture with E. Coli resistant to levofloxacin and ciprofloxacin. With her many drug allergies, there are no oral options for treating this; invanz has been ordered, levoquin stopped. PN: Obj Ex Vital signs: Temp Pulse Resp BP Pulse Ox 98.3 F 67 18 131/48 L 98 10/27/20 10:07 10/27/20 10:07 10/27/20 10:07 10/27/20 10:07 10/27/20 10:07 - Constitutional no acute distress - Routine HEENT Exam Head: Present: normocephalic Eye: Present: EOMI ENT: Present: mucous membranes moist - Routine Respiratory Exam Absent: respiratory distress, wheezes - Routine Cardiovascular Exam Present: RRR - Routine Abdominal Exam Present: soft. Absent: tenderness - Routine Extremities Exam Comments: R hip dressing c/d/i, no strikethrough +DF/PF/EHL RLE SILT distally RLE in all distributions palpable pedal pulses RLE, foot pink/warm R calf soft, non-tender; negative Homans - Routine Skin Exam Present: warm - Routine Neurological Exam Present: alert, oriented X3, moving all extremities, normal tone, vision grossly intact, hearing grossly intact, normal speech. Absent: sensory deficit, motor deficit, altered mental status - Urinary Catheter Management Condom Cath placed during this visit: no Ag Cath placed during this visit: no Progress Note: A&P (1) Hypothyroidism Status: Acute (2) Osteoarthritis Status: Acute (3) Atrial fibrillation Status: Chronic (4) Narcolepsy Status: Acute (5) Multiple drug allergies Status: Acute (6) Anxiety Status: Acute (7) Pain due to total hip replacement Status: Acute (8) Aftercare following hip joint replacement surgery Status: Acute (9) Migraine headache Status: Chronic (10) UTI (urinary tract infection) Status: Acute (11) Postoperative anemia Status: Acute Assessment and Plan for All Diagnoses:: 75yo F POD 2 s/p R VISHAL -- hemoglobin 7.5 this morning, 1 unit PRBC started -- out of bed with assistance, continue TTWB RLE and posterior hip precautions -- hip abduction pillow while in bed -- PT/OT to continue; TTWB RLE -- ice pack R hip as needed -- DVT prophy: continue aspirin x6 weeks -- pain control: IV dilaudid, oral oxy; if oxycodone not effective, may restart home oral dilaudid -- SCDs BLE -- encourage IS 10x/hr while awake -- Dr. Matute on consult for medical management -- d/c levofloxacin, started invanz for UTI -- care management consult for dispo planning; anticipate d/c to SNF possibly tomorrow
--- NOTE | 2020-10-27 13:58 | PC.NURSE ---
NADOLOL WAS ADMIN LATE AT PT REQUEST. DURING AM MED PASS PT DID NOT WANT IT. PT WAS ASKED LATER IN SHIFT AND AGREED TO TAKE MEDICATION.
[2020-10-27 14:28] LABS: Hematocrit 26.4 % (37.0-47.0)
[2020-10-27 14:35] LABS: Hemoglobin 8.5 g/dL (12.2-16.2)
--- NOTE | 2020-10-27 16:18 | PC.NURSE ---
SHE IS MORE ALERT AND RESPONSIVE TODAY THAN YESTERDAY, SHE HAS BEEN MEDICATED *2 WITH PRN OXYCODONE WITH GOOD EFFECTIVENESS NOTED, SHE WAS UP TO CHAIR SOME THIS SHIFT BUT WAS A TOTAL ASSIST TRANSFERRING FROM BED TO CHAIR, THE [employer] WAS UTILIZED BY PHYSICAL THERAPY TO PLACE PT BACK IN BED, PT WILL NOT ATTEMPT TO TAKE STEPS, SHE HAS TOLERATED DIET WELL AND HAS DRANK MORE TODAY, 1 UNIT PRBCS ADMIN AND PT TOLERATED WELL WITH NO COMPLICATIONS, PT DID REFUSE TO TAKE BP MEDS THIS AM BUT WHEN PT WAS ASKED THIS AFTERNOON SHE AGREED, SCDS REMAIN IN PLACE TO LEFT LEG WITH ABDUCTOR PILLOW IN PLACE WELL. PUREWICK IS IN PLACE TO PROMOTE PT COMFORT AND IS DRAINING CLEAR YELLOW URINE, SHE HAS REFUSED TO BE TURNED IN THE BED AND BECOMES AGITATED WHEN STAFF ATTEMPTS TO REPOSITION HER, O2 SUPPORT WAS TITRATED TO 1LNC, VITAL SIGNS HAVE BEEN WNL T/O SHIFT, NO NEEDS AT THIS TIME WILL CONTINUE TO MONITOR.
--- NOTE | 2020-10-27 18:28 | PC.NURSE ---
PT WAS ON 1L VIA N/C INCREASED TO 2L N/C
[2020-10-28] VITALS (7 sets, daily range): BP systolic 123–150; BP diastolic 54–65; PULSE 61–68; RESP 17–20; TEMP 36.7–37; O2SAT 90–96
--- NOTE | 2020-10-28 04:55 | PC.NURSE ---
Patient has been resting with eyes closed most of the shift with no complaints of pain; easily aroused, opens eyes with sound of voice but closes them immediately appearing to be drowsy. Patient more alert at 0400 stating she is hungry, snacks provided. Patient complains of pain 9 requesting pain medication. Oxycodone 10mg given at 0413; reassessed at 0443 patient resting with eyes closed with no c/o pain at this time. Patient needs encouragement to do things for herself; relies on staff to do simple tasks. Call light within reach, bed in lowest position for safety will continue to monitor.
--- NOTE | 2020-10-28 05:25 | PC.NURSE ---
pt is in a non weigh bed.
--- NOTE | 2020-10-28 08:21 | XR_ITS ---
PROCEDURE: XR CHEST PORTABLE CLINICAL HISTORY: hypoxemia COMPARISON: CR XR CHEST PORTABLE from 02/27/2020 CR XR CHEST 2V from 02/29/2020 DX XR CHEST 2V from 08/16/2020 FINDINGS: Cardiomegaly without failure. Right hemidiaphragm is elevated with right basilar atelectasis. The remaining lungs are clear. No acute bony finding. IMPRESSION: Cardiomegaly with right basilar atelectasis Dictated by: Ghassan Beth MD 10/28/2020 16:56 Ghassan Beth MD in [facility] 10/28/2020 16:56
--- NOTE | 2020-10-28 08:48 | XR_ITS ---
PROCEDURE: XR CHEST PORTABLE PICC PLAC CLINICAL HISTORY: Confirm PICC line placement COMPARISON: CR XR CHEST 2V from 02/29/2020 DX XR CHEST 2V from 08/16/2020 CR XR CHEST PORTABLE from 10/28/2020 FINDINGS: The cardiomediastinal silhouette and pulmonary vascularity are within normal limits.A PICC line has been inserted by the left subclavian approach. The tip is in satisfactory position in the region of the superior vena cava. There are low lung volumes with mild atelectatic changes in the lung bases. No acute bony abnormalities. IMPRESSION: A PICC line has been inserted by the left upper extremity approach. The tip is in satisfactory position in the region of the superior vena cava. Dictated by: Ghassan Beth MD 10/28/2020 14:30 Ghassan Beth MD in [facility] 10/28/2020 14:30
--- NOTE | 2020-10-28 08:49 | HMH.ACPN2 ---
<Alexandra Nguyen - Last Filed: 10/28/20 08:49> Internal Medicine - PN: Subj *Date: 10/28/20 *Time: 08:49 Interval history: Patient's oxygen saturations have decreased and oxygen was placed at 2 L nasal cannula. The patient states her pain is bad this morning. She states she feels awful. She slept off and on and only ate a few bites of her breakfast. Exam Vital signs and Labs for Last 24 Hours: Temp Pulse Resp BP Pulse Ox 98.1 F 65 17 130/65 90 L 10/28/20 04:00 10/28/20 04:00 10/28/20 04:00 10/28/20 04:00 10/28/20 04:00 Laboratory Results - last 24 hr 10/27/20 08:00: Blood Type O Negative, Antibody Screen Negative, Crossmatch (AHG) See Detail 10/27/20 13:50: Hgb 8.5 L D, Hct 26.4 L I & O for Last 24 hours: Intake & Output 10/25/20 10/26/20 10/27/20 10/28/20 11:59 11:59 11:59 11:59 Intake Total 2740 / 2740 1900 / 1900 932 / 932 Output Total 700 / 700 700 / 700 450 / 450 Balance 2040 / 2040 1200 / 1200 482 / 482 Weight 220 lb Microbiology Reports for the Last 24 Hours: Microbiology 10/25/20 Unknown Urine,Catheterized Urine Culture - Final Escherichia coli - Constitutional no acute distress - *Routine Respiratory Exam Present: decreased breath sounds - *Routine Cardiovascular Exam Present: RRR - *Routine Abdominal Exam Present: soft, normoactive bowel sounds. Absent: tenderness - *Routine Extremities Exam Absent: cyanosis, clubbing, edema - *Routine Skin Exam Present: warm. Absent: rash - *Routine Neurological Exam Present: alert, oriented X3 Assessment and Plan (1) Hypothyroidism Status: Acute Category: Medical Code(s): E03.9 - Hypothyroidism, unspecified (2) Osteoarthritis Status: Acute Category: Medical Code(s): M19.90 - Unspecified osteoarthritis, unspecified site (3) Atrial fibrillation Status: Chronic Qualifiers: Atrial fibrillation type: paroxysmal Qualified Code(s): I48.0 - Paroxysmal atrial fibrillation Category: Medical Code(s): I48.91 - Unspecified atrial fibrillation (4) Narcolepsy Status: Acute Category: Medical Code(s): G47.419 - Narcolepsy without cataplexy (5) Multiple drug allergies Status: Acute Category: Medical Code(s): Z88.9 - Allergy status to unspecified drugs, medicaments and biological substances (6) Anxiety Status: Acute Category: Medical Code(s): F41.9 - Anxiety disorder, unspecified (7) Pain due to total hip replacement Status: Acute Category: Medical Code(s): T84.84XA - Pain due to internal orthopedic prosthetic devices, implants and grafts, initial encounter; Z96.649 - Presence of unspecified artificial hip joint (8) Aftercare following hip joint replacement surgery Status: Acute Category: Medical Code(s): Z47.1 - Aftercare following joint replacement surgery; Z96.649 - Presence of unspecified artificial hip joint (9) Migraine headache Status: Chronic Category: Medical Code(s): G43.909 - Migraine, unspecified, not intractable, without status migrainosus (10) UTI (urinary tract infection) Status: Acute Category: Medical Code(s): N39.0 - Urinary tract infection, site not specified (11) Postoperative anemia Status: Acute Category: Medical Code(s): D64.9 - Anemia, unspecified (12) E. coli UTI Status: Acute Category: Medical Code(s): N39.0 - Urinary tract infection, site not specified; B96.20 - Unspecified Escherichia coli [E. coli] as the cause of diseases classified elsewhere - Assessment and plan all Dx Assessment and Plan for all problems:: H&H has improved slightly after transfusion. The patient's antibiotics had to be switched due to resistance with her urinary tract infection. Her oxygen saturations have been low. We will get a chest x-ray today. We will also place a PICC line for continued IV antibiotics. <Ted Matute - Last Filed: 10/28/20 16:55> Internal Medicine - P
[2020-10-28 08:52] LABS: Basophils % 0.2 % (0.1-2.0); Eosinophils # 0.1 K/mm3 (0.0-0.4); Eosinophils % 0.7 % (0.1-12.0); Hematocrit 24.6 % (37.0-47.0); Hemoglobin 8.1 g/dL (12.2-16.2); Lymphocytes # 1.3 K/mm3 (0.7-4.5); Mean Corpuscular HGB Conc 32.7 g/dL (31.8-35.4); Mean Corpuscular Hemoglobin 26.7 pg (27.0-31.2); Mean Corpuscular Volume 81.5 fl (81-99); Mean Platelet Volume 9.8 fl (7.4-10.4); Monocytes # 0.6 K/mm3 (0.1-1.0); Monocytes % 5.3 % (1.7-9.3); Neutrophils # 8.7 K/mm3 (1.8-7.8); Neutrophils % 81.8 % (37.0-80.0); Platelet Count 157 K/mm3 (142-424); Red Blood Count 3.02 M/mm3 (4.20-5.40); Red Cell Distribution Width 16.3 % (11.5-17.5); White Blood Count 10.6 K/mm3 (4.8-10.8)
--- NOTE | 2020-10-28 11:47 | PC.NURSE ---
Pt has been reminded hourly to use IS. IS @ best 250 cc's
--- NOTE | 2020-10-28 16:21 | HMH.ORTHPN ---
Subjective Date: 10/28/20 Time: 12:00 Principal diagnosis: Status post total hip arthroplasty, right Interval history: The patient reports feeling horrible this morning. She refused to get out of bed with physical therapy. She reports pain in the right hip and lower back. When asked to dorsiflex/plantarflex her R ankle she resists, saying it hurts the bottom of her foot. Her oxygen saturation decreased this morning, necessitating supplemental oxygen; currently on 2L via nasal cannula. She has occasionally used her incentive spirometer but has had some difficulty with using it. Continues to refuse polar care device because the cold is uncomfortable. UTI found to be resistant to cipro and levaquin; due to her multiple documented allergies there is very little left to treat the infection with, all IV. PICC line has been ordered. PN: Obj Ex Vital signs: Temp Pulse Resp BP Pulse Ox 98.2 F 68 20 150/60 H 91 L 10/28/20 15:59 10/28/20 15:59 10/28/20 15:59 10/28/20 15:59 10/28/20 15:59 - Constitutional no acute distress - Routine HEENT Exam Head: Present: normocephalic Eye: Present: EOMI ENT: Present: mucous membranes moist - Routine Neck Exam Present: trachea midline - Routine Respiratory Exam Absent: respiratory distress, wheezes - Routine Cardiovascular Exam Present: RRR - Routine Abdominal Exam Present: soft. Absent: tenderness - Routine Extremities Exam Comments: R hip dressing c/d/i, no strikethrough +DF/PF/EHL RLE SILT distally RLE in all distributions palpable pedal pulses RLE, foot pink/warm R calf soft, non-tender; negative Homans - Routine Skin Exam Present: warm - Routine Neurological Exam Present: alert, oriented X3, moving all extremities, normal tone, vision grossly intact, hearing grossly intact, normal speech. Absent: sensory deficit, motor deficit, altered mental status - Urinary Catheter Management Condom Cath placed during this visit: no Urethral indwelling: No Ag Cath placed during this visit: yes, but has since been removed by the nurse Urethral indwelling: No Insertion date: 10/25/20 Removal date: 10/26/20 Progress Note: A&P (1) Hypothyroidism Status: Acute (2) Osteoarthritis Status: Acute (3) Atrial fibrillation Status: Chronic (4) Narcolepsy Status: Acute (5) Multiple drug allergies Status: Acute (6) Anxiety Status: Acute (7) Pain due to total hip replacement Status: Acute (8) Aftercare following hip joint replacement surgery Status: Acute (9) Migraine headache Status: Chronic (10) UTI (urinary tract infection) Status: Acute (11) Postoperative anemia Status: Acute (12) E. coli UTI Status: Acute Assessment and Plan for All Diagnoses:: 75yo F POD 3 s/p R VISHAL -- acute blood loss anemia post-operatively: hemoglobin 7.5 yesterday, increased to 8.5 after 1 unit PRBC, 8.1 this morning. Continue to monitor. -- out of bed with assistance, continue TTWB RLE and posterior hip precautions --> strongly encouraged the patient to participate with physical therapy, and observed while nursing got the patient out of bed with a lift and into a bedside chair with a lift device -- hip abduction pillow while in bed -- PT/OT to continue; TTWB RLE, posterior hip precautions -- ice pack R hip as needed -- encouraged the patient to use her polar care device, as multiple modalities may better control her pain -- DVT prophy: continue aspirin x6 weeks -- pain control: IV dilaudid, oral oxy; if oxycodone not effective, may restart home oral dilaudid -- SCDs BLE -- encourage IS 10x/hr while awake -- Dr. Matute on consult for medical management -- continue invanz for UTI, continue via PICC after d/c; will leave length of treatment up to Dr. Matute -- care management consult for dispo planning; anticipate d/c to SNF but not today, possibly over weekend but likely Saturday
--- NOTE | 2020-10-28 17:47 | PC.NURSE ---
pt RA stat was 91%. placed pt back on 2L NC.
--- NOTE | 2020-10-28 18:25 | PC.NURSE ---
Pt has been oriented to self most of this shift. Ot has c/o of leg and hip pain the majority of the morning and has been medicated per OCT, pt has been very groggy and fatigued since PRN pain meds. VSS. Pt has been a total assist this shift, and has required the Iglesia lift for transfers. Pt currently has polar pack placed to rt hip. Pt has been encouraged to use IS hourly while awake, IS @ best remains 250 cc's. No other acute changes or complaints at this time.
[2020-10-29] VITALS (24 sets, daily range): BP systolic 132–186; BP diastolic 54–80; PULSE 18–92; RESP 16–21; TEMP 36.3–37.1; O2SAT 90–98
--- NOTE | 2020-10-29 03:53 | PC.NURSE ---
Pt has been alert to self for most of the night. She was able to name the month but did not know where she was or what procedure she had done. Pt has c/o hip and leg pain, 10 of Oxy has been given per mar. Pt has been unwilling to do simple tasks for herself and refuses turns. PT has been encouraged to move in bed and use IS every hour. PT has slept for most of the shift. Drsg on incision is c/d/i. Bowel sounds x4, and soft and nontender. Lungs CTA, on 2L NC. VSS, call light in reach, no concerns at this time.
--- NOTE | 2020-10-29 06:39 | PC.NURSE ---
Pt weight cannot be obtained due to pt being non-weight baring and not in a weigh bed. RN aware.
[2020-10-29 07:16] LABS: Basophils % 0.2 % (0.1-2.0); Eosinophils # 0.1 K/mm3 (0.0-0.4); Eosinophils % 1.4 % (0.1-12.0); Lymphocytes # 1.3 K/mm3 (0.7-4.5); Lymphocytes % 13.5 % (10-50); Mean Corpuscular HGB Conc 32.3 g/dL (31.8-35.4); Mean Corpuscular Hemoglobin 25.9 pg (27.0-31.2); Mean Corpuscular Volume 80.3 fl (81-99); Mean Platelet Volume 9.7 fl (7.4-10.4); Monocytes # 0.6 K/mm3 (0.1-1.0); Neutrophils # 7.5 K/mm3 (1.8-7.8); Neutrophils % 78.9 % (37.0-80.0); Platelet Count 179 K/mm3 (142-424); Red Blood Count 2.93 M/mm3 (4.20-5.40); Red Cell Distribution Width 16.4 % (11.5-17.5); White Blood Count 9.6 K/mm3 (4.8-10.8)
[2020-10-29 07:23] LABS: Hematocrit 23.5 % (37.0-47.0); Hemoglobin 7.6 g/dL (12.2-16.2)
[2020-10-29 07:34] LABS: Anion Gap 10.2 mEq/L (5-15); Blood Urea Nitrogen 22 mg/dl (7-17); Calcium 8.4 mg/dl (8.4-10.2); Carbon Dioxide 22 mmol/L (22.0-30.0); Chloride 108 mmol/L (98-107); Creatinine Clearance Estimated 77 mL/min (50-200); Estimated Glomerular Filt Rate 70 ml/min (>60); GFR (African American) 85 ML/MIN (>60); Glucose 102 mg/dl (74-100); Potassium 3.2 mmoL/L (3.5-5.1); Sodium 137 mmol/L (136-145)
--- NOTE | 2020-10-29 08:45 | HMH.ACPN2 ---
Internal Medicine - PN: Subj *Date: 10/29/20 *Time: 08:45 Interval history: She sat up for 2 hours in the chair yesterday but required a Iglesia lift for transfers as she would not stand or ambulate on her own. She denies shortness of breath, chest pain, abdominal pain, or nausea. She had 2 bowel movements yesterday. She is tolerating her diet. Exam Vital signs and Labs for Last 24 Hours: Temp Pulse Resp BP Pulse Ox 98.7 F 59 L 19 153/64 H 97 10/29/20 08:00 10/29/20 08:00 10/29/20 08:00 10/29/20 08:00 10/29/20 08:00 Laboratory Results - last 24 hr 10/28/20 08:43: WBC 10.6, RBC 3.02 L, Hgb 8.1 L, Hct 24.6 L, MCV 81.5, MCH 26.7 L, MCHC 32.7, RDW 16.3, Plt Count 157, MPV 9.8, Neut % (Auto) 81.8 H, Lymph % (Auto) 12.0, Hitchcock % (Auto) 5.3, Eos % (Auto) 0.7, Baso % (Auto) 0.2, Neut # (Auto) 8.7 H, Lymph # (Auto) 1.3, Hitchcock # (Auto) 0.6, Eos # (Auto) 0.1, Baso # (Auto) 0.0 10/29/20 06:50: WBC 9.6, RBC 2.93 L, Hgb 7.6 L*, Hct 23.5 L*, MCV 80.3 L, MCH 25.9 L, MCHC 32.3, RDW 16.4, Plt Count 179, MPV 9.7, Neut % (Auto) 78.9, Lymph % (Auto) 13.5, Hitchcock % (Auto) 6.0, Eos % (Auto) 1.4, Baso % (Auto) 0.2, Neut # (Auto) 7.5, Lymph # (Auto) 1.3, Hitchcock # (Auto) 0.6, Eos # (Auto) 0.1, Baso # (Auto) 0.0 10/29/20 06:50: Sodium 137, Potassium 3.2 L, Chloride 108 H, Carbon Dioxide 22, Anion Gap 10.2, BUN 22 H, Creatinine 0.80, Estimated Creat Clear 77, Estimated GFR 70, Est GFR ( Amer) 85 D, Glucose 102 H, Calcium 8.4 I & O for Last 24 hours: Intake & Output 10/26/20 10/27/20 10/28/20 10/29/20 11:59 11:59 11:59 11:59 Intake Total 2740 / 2740 1900 / 1900 1172 / 1172 360 / 360 Output Total 700 / 700 700 / 700 450 / 450 300 / 300 Balance 2040 / 2040 1200 / 1200 722 / 722 60 / 60 Weight 220 lb Microbiology Reports for the Last 24 Hours: Microbiology 10/28/20 11:06 Nasopharyngeal Coronavirus COVID-19 PCR - Final Narrative: She is lying in bed and appears in no distress. Color is slightly pale. Lungs are clear anteriorly. Heart is regular with no ectopy. Abdomen obese, soft, nontender. Extremities no edema. Hemoglobin decreased to 7.6 this morning Chest x-ray shows some right basilar atelectasis. Assessment and Plan (1) Hypothyroidism Status: Acute Category: Medical Code(s): E03.9 - Hypothyroidism, unspecified (2) Osteoarthritis Status: Acute Category: Medical Code(s): M19.90 - Unspecified osteoarthritis, unspecified site (3) Atrial fibrillation Status: Chronic Qualifiers: Atrial fibrillation type: paroxysmal Qualified Code(s): I48.0 - Paroxysmal atrial fibrillation Category: Medical Code(s): I48.91 - Unspecified atrial fibrillation (4) Narcolepsy Status: Acute Category: Medical Code(s): G47.419 - Narcolepsy without cataplexy (5) Multiple drug allergies Status: Acute Category: Medical Code(s): Z88.9 - Allergy status to unspecified drugs, medicaments and biological substances (6) Anxiety Status: Acute Category: Medical Code(s): F41.9 - Anxiety disorder, unspecified (7) Pain due to total hip replacement Status: Acute Category: Medical Code(s): T84.84XA - Pain due to internal orthopedic prosthetic devices, implants and grafts, initial encounter; Z96.649 - Presence of unspecified artificial hip joint (8) Aftercare following hip joint replacement surgery Status: Acute Category: Medical Code(s): Z47.1 - Aftercare following joint replacement surgery; Z96.649 - Presence of unspecified artificial hip joint (9) Migraine headache Status: Chronic Category: Medical Code(s): G43.909 - Migraine, unspecified, not intractable, without status migrainosus (10) UTI (urinary tract infection) Status: Acute Category: Medical Code(s): N39.0 - Urinary tract infection, site not specified (11) Postoperative anemia Status: Acute Category: Medical Code(s): D64.9 - Anemia, unspecified (12) E. coli UTI Status: Acute Category: Medical
--- NOTE | 2020-10-29 16:05 | PC.WOUNDNOTE ---
Wound Location: rt heel Length:1.5 in Width:1 in Inflammation/swelling Y/N:yes Pain and/or tenderness Y/N:yes Color: Clear purple
--- NOTE | 2020-10-29 17:56 | PC.NURSE ---
Addendum entered by Karolina Powell RN 10/29/20 18:41: Pt did receive x2 units of PRBC this shift. VSS the duration and post-transfusion. No SOB noted. Post H/H ordered for 1849 Original Note: Pt has been A&Ox4 most of this shift, but has been confused at times but easily redirected. Pt has been willing to work w/ PT more and has less pain while moving rt leg. Pt has only been medicated w/ Tylenol this shift for mild pain w/ favorable results. PICC line dressing was changed this shift and remains intact. Large blistered area noted to rt heel this shift. Dressing in place and heel floated in bed. Purewick remains in place for comfort, urine is dark flakita in color. No other acute changes or complaints.
--- NOTE | 2020-10-29 18:27 | HMH.ORTHPN ---
Subjective Date: 10/29/20 Time: 18:00 Principal diagnosis: Status post total hip arthroplasty, right Interval history: Patient is status post right total hip arthroplasty, post op day #4. Patient is lying down in the bed she says she is doing well. She says she has pain in both lower extremities, around the right hip and lower back. No history of any nausea or vomiting. No history of any cough, chest pain or palpitations. Nursing staff reports that she is eating and drinking well. They also report that she has been more alert today compared to yesterday and has been on room air for most of the day today. She received 2 units of PRBC earlier today for low H&H; repeat H&H awaited. PN: Obj Ex Vital signs: Temp Pulse Resp BP Pulse Ox 98.0 F 63 20 157/64 H 92 L 10/29/20 16:50 10/29/20 16:50 10/29/20 16:50 10/29/20 16:50 10/29/20 16:50 Narrative: Laboratory Results - last 24 hr 10/27/20 08:00: Blood Type O Negative, Antibody Screen Negative, Crossmatch (AHG) See Detail 10/29/20 06:50: WBC 9.6, RBC 2.93 L, Hgb 7.6 L*, Hct 23.5 L*, MCV 80.3 L, MCH 25.9 L, MCHC 32.3, RDW 16.4, Plt Count 179, MPV 9.7, Neut % (Auto) 78.9, Lymph % (Auto) 13.5, Barron % (Auto) 6.0, Eos % (Auto) 1.4, Baso % (Auto) 0.2, Neut # (Auto) 7.5, Lymph # (Auto) 1.3, Barron # (Auto) 0.6, Eos # (Auto) 0.1, Baso # (Auto) 0.0 10/29/20 06:50: Sodium 137, Potassium 3.2 L, Chloride 108 H, Carbon Dioxide 22, Anion Gap 10.2, BUN 22 H, Creatinine 0.80, Estimated Creat Clear 77, Estimated GFR 70, Est GFR ( Amer) 85 D, Glucose 102 H, Calcium 8.4 Exam General appearance: alert, active, awake, no acute distress Cardiovascular: regular rate & rhythm, normal peripheral pulses Respiratory: No respiratory distress noted, speaks in full sentences ABD: soft and non tender Neuro: alert, awake and oriented On examination of the lower extremities the limb lengths are equal. Thigh and calf are soft and nontender. On examination of the right hip, she has Silverlon surgical dressing in place. The dressings are clean, dry and intact. Distal pulses are 1+ bilaterally. Foot is warm and pink. Homans' sign negative. Distal sensation is intact to light touch throughout. She is able to actively wiggle the right foot and ankle. - Urinary Catheter Management Condom Cath placed during this visit: no Urethral indwelling: No Ag Cath placed during this visit: yes, but has since been removed by the nurse Urethral indwelling: No Insertion date: 10/25/20 Removal date: 10/26/20 Progress Note: A&P (1) Hypothyroidism Status: Acute (2) Osteoarthritis Status: Acute (3) Atrial fibrillation Status: Chronic (4) Narcolepsy Status: Acute (5) Multiple drug allergies Status: Acute (6) Anxiety Status: Acute (7) Pain due to total hip replacement Status: Acute (8) Aftercare following hip joint replacement surgery Status: Acute (9) Migraine headache Status: Chronic (10) UTI (urinary tract infection) Status: Acute (11) Postoperative anemia Status: Acute (12) E. coli UTI Status: Acute (13) Pulmonary atelectasis Status: Acute Assessment and Plan for All Diagnoses:: I have reviewed the clinical findings and progress with the patient. Patient is doing very well and reports no problems. Patient is still very slow with mobilization. She says she wants to sit up in a chair now. Continue DVT prophylaxis as ordered. Continue abduction pillow when in bed and continue standard precautions for the posterior approach hip replacement. Continue regular icing/polar pack device, as needed pain medication, incentive spirometry and antibiotics for UTI. Continue medical management as per Dr. Matute.
[2020-10-29 19:05] LABS: Hemoglobin 9.5 g/dL (12.2-16.2)
--- NOTE | 2020-10-30 01:08 | PC.WOUNDNOTE ---
Wound Location: right hip Inflammation/swelling Y/N: no Pain and/or tenderness Y/N: yes Exudate: serous blister Color: Clear Red Odor Y/N:
[2020-10-30 03:46] VITALS: BP 144/51; PULSE 64; RESP 27; TEMP 36.6; O2SAT 96
--- NOTE | 2020-10-30 03:47 | PC.NURSE ---
Pt has been alert to self for a majority of the shift. Pt was able to state the month but didnt know place or her situation. Lungs are diminished, on 2L NC. Pt has been turned q2h. Drsg on hip incision was redressed, skin under the previous dressing had serous blisters, pics in chart. Pt c/o of hip pain after being turned and bed changed, 10mg Oxy was administered with desired effects. Bowel sounds x4, abd soft and nontender. Pt incontinent of urine, purwick in place. Polar pac applied to rt hip. VSS, call light in reach, no concern at this time.
--- NOTE | 2020-10-30 05:08 | PC.NURSE ---
unable to weigh patient. patient in not ambulatory at this time and patient is not in a weigh bed. RN Aware.
[2020-10-30 06:36] LABS: Basophils % 0.3 % (0.1-2.0); Eosinophils # 0.2 K/mm3 (0.0-0.4); Eosinophils % 2.7 % (0.1-12.0); Hemoglobin 9.2 g/dL (12.2-16.2); Lymphocytes # 1.2 K/mm3 (0.7-4.5); Lymphocytes % 14.4 % (10-50); Mean Corpuscular Hemoglobin 26.3 pg (27.0-31.2); Mean Corpuscular Volume 82.2 fl (81-99); Mean Platelet Volume 9.1 fl (7.4-10.4); Monocytes # 0.6 K/mm3 (0.1-1.0); Monocytes % 7.2 % (1.7-9.3); Neutrophils # 6.1 K/mm3 (1.8-7.8); Neutrophils % 75.4 % (37.0-80.0); Platelet Count 188 K/mm3 (142-424); Red Blood Count 3.49 M/mm3 (4.20-5.40); Red Cell Distribution Width 16.5 % (11.5-17.5); White Blood Count 8.1 K/mm3 (4.8-10.8)
[2020-10-30 06:38] LABS: Chloride 109 mmol/L (98-107); Hematocrit 28.6 % (37.0-47.0); Potassium 3.6 mmoL/L (3.5-5.1); Sodium 137 mmol/L (136-145)
[2020-10-30 06:41] LABS: Anion Gap 7.6 mEq/L (5-15); Blood Urea Nitrogen 22 mg/dl (7-17); Calcium 8.4 mg/dl (8.4-10.2); Carbon Dioxide 24 mmol/L (22.0-30.0); Creatinine Clearance Estimated 77 mL/min (50-200); Estimated Glomerular Filt Rate 70 ml/min (>60); GFR (African American) 85 ML/MIN (>60); Glucose 108 mg/dl (74-100)
[2020-10-30 08:00] VITALS: BP 135/63; PULSE 52; RESP 16; TEMP 36.7; O2SAT 95; O2SAT 96
--- NOTE | 2020-10-30 08:55 | HMH.ACPN2 ---
Internal Medicine - PN: Subj *Date: 10/30/20 *Time: 08:16 Interval history: She rested better last night. No new complaints this morning. Pain seems better controlled. She received 2 units of blood yesterday Exam Vital signs and Labs for Last 24 Hours: Temp Pulse Resp BP Pulse Ox 98.1 F 52 L 16 135/63 95 10/30/20 08:00 10/30/20 08:00 10/30/20 08:00 10/30/20 08:00 10/30/20 08:00 Laboratory Results - last 24 hr 10/27/20 08:00: Blood Type O Negative, Antibody Screen Negative, Crossmatch (AHG) See Detail 10/29/20 18:50: Hgb 9.5 L D, Hct 30.0 L 10/30/20 06:05: WBC 8.1, RBC 3.49 L, Hgb 9.2 L, Hct 28.6 L, MCV 82.2, MCH 26.3 L, MCHC 32.0, RDW 16.5, Plt Count 188, MPV 9.1, Neut % (Auto) 75.4, Lymph % (Auto) 14.4, [place] % (Auto) 7.2, Eos % (Auto) 2.7, Baso % (Auto) 0.3, Neut # (Auto) 6.1, Lymph # (Auto) 1.2, [place] # (Auto) 0.6, Eos # (Auto) 0.2, Baso # (Auto) 0.0 10/30/20 06:05: Sodium 137, Potassium 3.6, Chloride 109 H, Carbon Dioxide 24, Anion Gap 7.6, BUN 22 H, Creatinine 0.80, Estimated Creat Clear 77, Estimated GFR 70, Est GFR ( Amer) 85, Glucose 108 H, Calcium 8.4 I & O for Last 24 hours: Intake & Output 10/27/20 10/28/20 10/29/20 10/30/20 11:59 11:59 11:59 11:59 Intake Total 1900 / 1900 1172 / 1172 590 / 590 2105.35 / 2105.35 Output Total 700 / 700 450 / 450 300 / 300 850 / 850 Balance 1200 / 1200 722 / 722 290 / 290 1255.35 / 1255.35 Narrative: She is awake and alert. Color is improved. Chest with occasional rhonchi. No wheezes. Heart tones are distant but regular. Abdomen is obese, soft, nondistended and nontender. Lower extremities show no edema. No calf tenderness. She has a decubitus of the right heel (see photos in chart) Assessment and Plan (1) Hypothyroidism Status: Acute Category: Medical Code(s): E03.9 - Hypothyroidism, unspecified (2) Osteoarthritis Status: Acute Category: Medical Code(s): M19.90 - Unspecified osteoarthritis, unspecified site (3) Atrial fibrillation Status: Chronic Qualifiers: Atrial fibrillation type: paroxysmal Qualified Code(s): I48.0 - Paroxysmal atrial fibrillation Category: Medical Code(s): I48.91 - Unspecified atrial fibrillation (4) Narcolepsy Status: Acute Category: Medical Code(s): G47.419 - Narcolepsy without cataplexy (5) Multiple drug allergies Status: Acute Category: Medical Code(s): Z88.9 - Allergy status to unspecified drugs, medicaments and biological substances (6) Anxiety Status: Acute Category: Medical Code(s): F41.9 - Anxiety disorder, unspecified (7) Pain due to total hip replacement Status: Acute Category: Medical Code(s): T84.84XA - Pain due to internal orthopedic prosthetic devices, implants and grafts, initial encounter; Z96.649 - Presence of unspecified artificial hip joint (8) Aftercare following hip joint replacement surgery Status: Acute Category: Medical Code(s): Z47.1 - Aftercare following joint replacement surgery; Z96.649 - Presence of unspecified artificial hip joint (9) Migraine headache Status: Chronic Category: Medical Code(s): G43.909 - Migraine, unspecified, not intractable, without status migrainosus (10) UTI (urinary tract infection) Status: Acute Category: Medical Code(s): N39.0 - Urinary tract infection, site not specified (11) Postoperative anemia Status: Acute Category: Medical Code(s): D64.9 - Anemia, unspecified (12) E. coli UTI Status: Acute Category: Medical Code(s): N39.0 - Urinary tract infection, site not specified; B96.20 - Unspecified Escherichia coli [E. coli] as the cause of diseases classified elsewhere (13) Pulmonary atelectasis Status: Acute Category: Medical Code(s): J98.11 - Atelectasis (14) Decubitus ulcer, heel Status: Acute Qualifiers: Laterality: right Category: Medical Code(s): L89.609 - Pressure ulcer of unspecified heel, unspecified stage - Assessment and plan all
--- NOTE | 2020-10-30 10:02 | HMH.ACPN ---
Internal Medicine - PN: Subj *Date: 10/30/20 *Time: 10:02 Exam Vital signs and Labs for Last 24 Hours: Temp Pulse Resp BP Pulse Ox 98.1 F 52 L 16 135/63 95 10/30/20 08:00 10/30/20 08:00 10/30/20 08:00 10/30/20 08:00 10/30/20 08:00 Laboratory Results - last 24 hr 10/27/20 08:00: Blood Type O Negative, Antibody Screen Negative, Crossmatch (AHG) See Detail 10/29/20 18:50: Hgb 9.5 L D, Hct 30.0 L 10/30/20 06:05: WBC 8.1, RBC 3.49 L, Hgb 9.2 L, Hct 28.6 L, MCV 82.2, MCH 26.3 L, MCHC 32.0, RDW 16.5, Plt Count 188, MPV 9.1, Neut % (Auto) 75.4, Lymph % (Auto) 14.4, [place] % (Auto) 7.2, Eos % (Auto) 2.7, Baso % (Auto) 0.3, Neut # (Auto) 6.1, Lymph # (Auto) 1.2, [place] # (Auto) 0.6, Eos # (Auto) 0.2, Baso # (Auto) 0.0 10/30/20 06:05: Sodium 137, Potassium 3.6, Chloride 109 H, Carbon Dioxide 24, Anion Gap 7.6, BUN 22 H, Creatinine 0.80, Estimated Creat Clear 77, Estimated GFR 70, Est GFR ( Amer) 85, Glucose 108 H, Calcium 8.4 I & O for Last 24 hours: Intake & Output 10/27/20 10/28/20 10/29/20 10/30/20 23:59 23:59 23:59 23:59 Intake Total 1435 / 1435 1292 / 1292 1975.35 / 1975.35 480 / 480 Output Total 700 / 700 450 / 750 750 / 1150 400 / 400 Balance 735 / 735 842 / 542 1225.35 / 825.35 80 / 80 Assessment and Plan (1) Hypothyroidism Status: Acute Category: Medical Code(s): E03.9 - Hypothyroidism, unspecified (2) Osteoarthritis Status: Acute Category: Medical Code(s): M19.90 - Unspecified osteoarthritis, unspecified site (3) Atrial fibrillation Status: Chronic Qualifiers: Atrial fibrillation type: paroxysmal Qualified Code(s): I48.0 - Paroxysmal atrial fibrillation Category: Medical Code(s): I48.91 - Unspecified atrial fibrillation (4) Narcolepsy Status: Acute Category: Medical Code(s): G47.419 - Narcolepsy without cataplexy (5) Multiple drug allergies Status: Acute Category: Medical Code(s): Z88.9 - Allergy status to unspecified drugs, medicaments and biological substances (6) Anxiety Status: Acute Category: Medical Code(s): F41.9 - Anxiety disorder, unspecified (7) Pain due to total hip replacement Status: Acute Category: Medical Code(s): T84.84XA - Pain due to internal orthopedic prosthetic devices, implants and grafts, initial encounter; Z96.649 - Presence of unspecified artificial hip joint (8) Aftercare following hip joint replacement surgery Status: Acute Category: Medical Code(s): Z47.1 - Aftercare following joint replacement surgery; Z96.649 - Presence of unspecified artificial hip joint (9) Migraine headache Status: Chronic Category: Medical Code(s): G43.909 - Migraine, unspecified, not intractable, without status migrainosus (10) UTI (urinary tract infection) Status: Acute Category: Medical Code(s): N39.0 - Urinary tract infection, site not specified (11) Postoperative anemia Status: Acute Category: Medical Code(s): D64.9 - Anemia, unspecified (12) E. coli UTI Status: Acute Category: Medical Code(s): N39.0 - Urinary tract infection, site not specified; B96.20 - Unspecified Escherichia coli [E. coli] as the cause of diseases classified elsewhere (13) Pulmonary atelectasis Status: Acute Category: Medical Code(s): J98.11 - Atelectasis (14) Decubitus ulcer, heel Status: Acute Qualifiers: Laterality: right Category: Medical Code(s): L89.609 - Pressure ulcer of unspecified heel, unspecified stage The patient's infection will respond to the chosen ABx?: Yes Is the patient receiving the right drug, dose, and route?: Yes Could a more targeted ABx be ordered?: No
[2020-10-30 12:00] VITALS: BP 145/57; PULSE 56; RESP 18; TEMP 36.6; O2SAT 92
[2020-10-30 16:00] VITALS: BP 157/62; PULSE 58; RESP 16; TEMP 36.8; O2SAT 95
--- NOTE | 2020-10-30 16:30 | PC.NURSE ---
PT IS SITTING UP IN THE CAHIR. IT TOOK THE LIFT TO GET PT OOB B/C PT STATES SHE CANNOT STAND AT ALL. WHEN THERAPY CAME PT WAS WILLING TO DO SOME EXERCISES IN THE BED WITH SOME ENCOURAGEMENT. PT HAS TO BE ENCOURAGED TO TURN AND REPOSITION IN BED FREQUENTLY. PT HAS BEEN EDUCATED ON WHY IT IS SO IMPORTANT TO BE OOB SITTING UP IN THE CHAIR AND AT LEAST ATTEMPTING TO AMBULATE AND SHE STATES I JUST CAN'T DO IT B/C IT HURTS AND YOU ALL ARE JUST MEAN PT HAS BEEN MEDICATED PER MAR FOR PAIN. INCISION NOTED TO THE RT HIP WITH DRESSING. PT HAS SOME BLISTERS NOTED AROUND INCISION WITH SOME DRAINAGE. PT HAS A WOUND NOTED TO THE RT HEEL THAT HAS BEEN KEPT FLOATED IN THE BED. PT YELLS WHENEVER STAFF ATTEMPTS TO MOVE HER LEGS. PT HAS BEEN USING THE PURWICK TO VOID AND HAS BEEN INCONTINENT OF STOOL. PT DID SIT ON THE BEDPAN ONE TIME THIS SHIFT AND WAS UNABLE TO TOLERATE. VSS. WILL CONTINUE TO MONITOR.
--- NOTE | 2020-10-30 19:24 | HMH.ORTHPN ---
Subjective Date: 10/30/20 Time: 18:30 Principal diagnosis: Status post total hip arthroplasty, right Interval history: Patient is status post right total hip arthroplasty, post op day # 5. Patient is lying down in the bed she says she is doing well. She says her pain is better controlled today. No history of any nausea or vomiting. No history of any cough, chest pain or palpitations. Nursing staff reports that she is eating and drinking well. They also report that she sat out in the chair for few hours today but still is not bearing weight on the right lower extremity. The dressings were changed overnight by the nursing staff. PN: Obj Ex Vital signs: Temp Pulse Resp BP Pulse Ox 98.2 F 58 L 16 157/62 H 95 10/30/20 16:00 10/30/20 16:00 10/30/20 16:00 10/30/20 16:00 10/30/20 16:00 Narrative: Laboratory Results - last 24 hr 10/30/20 06:05: WBC 8.1, RBC 3.49 L, Hgb 9.2 L, Hct 28.6 L, MCV 82.2, MCH 26.3 L, MCHC 32.0, RDW 16.5, Plt Count 188, MPV 9.1, Neut % (Auto) 75.4, Lymph % (Auto) 14.4, [place] % (Auto) 7.2, Eos % (Auto) 2.7, Baso % (Auto) 0.3, Neut # (Auto) 6.1, Lymph # (Auto) 1.2, [place] # (Auto) 0.6, Eos # (Auto) 0.2, Baso # (Auto) 0.0 10/30/20 06:05: Sodium 137, Potassium 3.6, Chloride 109 H, Carbon Dioxide 24, Anion Gap 7.6, BUN 22 H, Creatinine 0.80, Estimated Creat Clear 77, Estimated GFR 70, Est GFR ( Amer) 85, Glucose 108 H, Calcium 8.4 Exam General appearance: alert, active, awake, no acute distress Cardiovascular: regular rate & rhythm, normal peripheral pulses Respiratory: No respiratory distress noted, speaks in full sentences ABD: soft and non tender Neuro: alert, awake and oriented On examination of the lower extremities the limb lengths are equal. Thigh and calf are soft and nontender. On examination of the right hip, there is soakage of the dressings with serous fluid. I have changed the dressings today and noted multiple blisters. The blister at the proximal end of the incision has ruptured with the exposed area. The incision appears clean and healthy. There is small amount of serous fluid leaking from the suture line. Sterile dressings applied with Xeroform, 4 x 4, ABDs and transpore tape. Distal pulses are 1+ bilaterally. Foot is warm and pink. There is a large blister over the right heel. Homans' sign negative. Distal sensation is intact to light touch throughout. She is able to actively wiggle the right foot and ankle. - Urinary Catheter Management Condom Cath placed during this visit: no Urethral indwelling: No Ag Cath placed during this visit: yes, but has since been removed by the nurse Urethral indwelling: No Insertion date: 10/25/20 Removal date: 10/26/20 Progress Note: A&P (1) Hypothyroidism Status: Acute (2) Osteoarthritis Status: Acute (3) Atrial fibrillation Status: Chronic (4) Narcolepsy Status: Acute (5) Multiple drug allergies Status: Acute (6) Anxiety Status: Acute (7) Pain due to total hip replacement Status: Acute (8) Aftercare following hip joint replacement surgery Status: Acute (9) Migraine headache Status: Chronic (10) UTI (urinary tract infection) Status: Acute (11) Postoperative anemia Status: Acute (12) E. coli UTI Status: Acute (13) Pulmonary atelectasis Status: Acute (14) Decubitus ulcer, heel Status: Acute Assessment and Plan for All Diagnoses:: I have reviewed the clinical findings and progress with the patient. She has been sitting out in the chair intermittently and needing help with transfers. Continue PT/OT and mobilization toe-touch weightbearing on the right lower extremity as able. Continue DVT prophylaxis as ordered. Continue abduction pillow when in bed and continue standard precautions for the posterior approach hip replacement. Continue regular icing/polar pack device, as needed pain medication, incentive spirometry and antibiotics for UTI. Continue me
[2020-10-30 20:00] VITALS: BP 197/65; PULSE 64; RESP 25; TEMP 36.5; O2SAT 92
[2020-10-30 20:48] VITALS: BP 152/84
[2020-10-31 03:43] VITALS: BP 156/70; PULSE 61; RESP 23; TEMP 36.7; O2SAT 98
--- NOTE | 2020-10-31 05:16 | PC.NURSE ---
unable to weigh patient. patient in not ambulatory at this time and patient is not in a weigh bed. RN Aware.
--- NOTE | 2020-10-31 07:03 | PC.NURSE ---
Addendum entered by Yuliana Shoemaker RN 10/31/20 07:06: 0500- REPORT GIVEN TO Doyle CORNELL RN Original Note: PT. C/O PAIN X2, TX WITH OXY AND TYLENOL. PT. DID NOT C/O N/V/D, OR DIZZINESS. SOA REPORTED WITH O2 SAT 89-91% ON RA, PLACE 2L NC FOR COMFORT WITH O2 SAT 98%; EXPIRATORY WHEEZES NOTED BILAT LUNGS. Q2H T/R. BLE +2 PITTING EDEMA, ELEVATED. R HIP DSG IN PLACE C/D/I
[2020-10-31 07:55] LABS: Hematocrit 28.4 % (37.0-47.0)
[2020-10-31 08:00] VITALS: BP 157/63; PULSE 58; RESP 19; TEMP 37; O2SAT 97
--- NOTE | 2020-10-31 08:17 | HMH.ACPN2 ---
<Nettie Jay - Last Filed: 10/31/20 08:17> Internal Medicine - PN: Subj *Date: 10/31/20 *Time: 08:17 Interval history: Patient states she is having diarrhea now. She has a pure wick to catch her urine. She states she set up in a chair. She seemed very proud of this. Had to use the left because she states she could not bear weight. She states she will try to do this today. She uses her incentive spirometer very poorly. She was able to assist with exam. She feels she is eating okay. She continues with nasal oxygen. H&H this morning are 9.0 and 28.4. Exam Vital signs and Labs for Last 24 Hours: Temp Pulse Resp BP Pulse Ox 98.0 F 61 23 156/70 H 98 10/31/20 03:43 10/31/20 03:43 10/31/20 03:43 10/31/20 03:43 10/31/20 03:43 Laboratory Results - last 24 hr 10/31/20 06:58: Hgb 9.0 L, Hct 28.4 L I & O for Last 24 hours: Intake & Output 10/28/20 10/29/20 10/30/20 10/31/20 11:59 11:59 11:59 11:59 Intake Total 1172 / 1172 590 / 590 2105.35 / 2105.35 480 / 480 Output Total 450 / 450 300 / 300 850 / 850 Balance 722 / 722 290 / 290 1255.35 / 1255.35 480 / 480 - Constitutional no acute distress Comments: Talkative - *Routine Respiratory Exam Present: CTA bilaterally (Anteriorly and posteriorly) - *Routine Cardiovascular Exam Present: RRR - *Routine Abdominal Exam Present: soft, normoactive bowel sounds. Absent: tenderness - *Routine Extremities Exam Absent: edema Comments: Dressing on the right hip is clean and dry Assessment and Plan (1) Hypothyroidism Status: Acute Category: Medical Code(s): E03.9 - Hypothyroidism, unspecified (2) Osteoarthritis Status: Acute Category: Medical Code(s): M19.90 - Unspecified osteoarthritis, unspecified site (3) Atrial fibrillation Status: Chronic Qualifiers: Atrial fibrillation type: paroxysmal Qualified Code(s): I48.0 - Paroxysmal atrial fibrillation Category: Medical Code(s): I48.91 - Unspecified atrial fibrillation (4) Narcolepsy Status: Acute Category: Medical Code(s): G47.419 - Narcolepsy without cataplexy (5) Multiple drug allergies Status: Acute Category: Medical Code(s): Z88.9 - Allergy status to unspecified drugs, medicaments and biological substances (6) Anxiety Status: Acute Category: Medical Code(s): F41.9 - Anxiety disorder, unspecified (7) Pain due to total hip replacement Status: Acute Category: Medical Code(s): T84.84XA - Pain due to internal orthopedic prosthetic devices, implants and grafts, initial encounter; Z96.649 - Presence of unspecified artificial hip joint (8) Aftercare following hip joint replacement surgery Status: Acute Category: Medical Code(s): Z47.1 - Aftercare following joint replacement surgery; Z96.649 - Presence of unspecified artificial hip joint (9) Migraine headache Status: Chronic Category: Medical Code(s): G43.909 - Migraine, unspecified, not intractable, without status migrainosus (10) UTI (urinary tract infection) Status: Acute Category: Medical Code(s): N39.0 - Urinary tract infection, site not specified (11) Postoperative anemia Status: Acute Category: Medical Code(s): D64.9 - Anemia, unspecified (12) E. coli UTI Status: Acute Category: Medical Code(s): N39.0 - Urinary tract infection, site not specified; B96.20 - Unspecified Escherichia coli [E. coli] as the cause of diseases classified elsewhere (13) Pulmonary atelectasis Status: Acute Category: Medical Code(s): J98.11 - Atelectasis (14) Decubitus ulcer, heel Status: Acute Qualifiers: Laterality: right Category: Medical Code(s): L89.609 - Pressure ulcer of unspecified heel, unspecified stage - Assessment and plan all Dx Assessment and Plan for all problems:: Continue with current postop care. She is ready for discharge to [facility] for ongoing rehab. She will continue with IV antibiotics per PICC
[2020-10-31 08:40] LABS: Adenovirus F 40/41, stool Not Detected (NotDetected); Astrovirus Not Detected (NotDetected); Campylobacter Not Detected (NotDetected); Clostridium Difficile A/B, PCR Not Detected (NotDetected); Cryptosporidium Not Detected (NotDetected); Cyclospora Cayetanesis Not Detected (NotDetected); Entamoeba histolytica Not Detected (NotDetected); Enteroaggregative E coli Not Detected (NotDetected); Enteropathogenic E coli Not Detected (NotDetected); Enterotoxigenic E coli Not Detected (NotDetected); Giardia lamblia Not Detected (NotDetected); Norovirus Not Detected (NotDetected); Plesimonas Shigalloides, PCR Not Detected (NotDetected); Rotavirus A Not Detected (NotDetected); Salmonella, PCR Not Detected (NotDetected); Sapovirus Not Detected (NotDetected); Shiga-like toxin E coli Not Detected (NotDetected); Shigella Enterovasive E coli Not Detected (NotDetected); Vibrio Cholerae Not Detected (NotDetected); Vibrio, PCR Not Detected (NotDetected); Yersinia Entercolitica, PCR Not Detected (NotDetected)
--- NOTE | 2020-10-31 09:01 | HMH.DCSUM ---
General - General Admission date:: 10/25/20 <Ted Matute - 11/26/20 22:52> 10/25/20 <MistyNettie - 10/31/20 09:23> Discharge date: 10/31/20 <MistyCarinaNettie - 10/31/20 09:23> HPI HPI: 75-year-old female with severe degenerative joint disease R hip, reports pain x1 year. No prior surgeries on this hip reported. She takes meloxicam and po dilaudid for pain relief, which is felt to be effective. She is on a daily aspirin but no anticoagulants. Past surgeries include tooth extraction and right total knee arthroplasty. She rates her current hip pain as 10 out of 10 both at rest and with activity. Ambulation, getting in and out of vehicles, on and off the toilet seat, as well as activities of daily living are becoming more of a struggle for her. I recommended total hip arthroplasty and she is in agreement with the procedure: she was medically cleared by both cardiology and her primary care physician. She denies any recent chest pain, shortness of breath, exposure to COVID-19. I discussed the risks and benefits of total hip arthroplasty with the pateint at length, in addition to the expected perioperative course, hospital stay and need for postoperative physical therapy. We also discussed the risks of surgery, which include but are not limited to: bleeding, infection, intraoperative fracture, neurovascular damage including postoperative foot drop, periprosthetic fracture postoperatively, postoperative hip dislocation, need for possible revision surgery in the future, wound healing complications, and the possibility of continued pain and/or disability despite surgery. The patient vocalized understanding and provided informed consent. R VISHAL was performed this afternoon, EBL 500cc <MistyCarinaNettie - 10/31/20 09:23> Hospital Course Hospital Course: Patient had the following procedure: Date of procedure: 10/25/20 Pre-op Diagnosis:: R hip degenerative joint disease Post-op Diagnosis:: R hip degenerative joint disease Procedure performed:: R total hip arthroplasty Surgeon:: Yuki Zavala MD Program Evaluation Consultant(s):: Ramona Henson MOLD YARD WORKER:: Dawood Landaverde Anesthesia: MAC, spinal Estimated blood loss (mL): 500 Patient was found to have a urinary tract infection With E. coli and was initially started on Levaquin to which it was resistant and switched to Invanz. Please note patient's multiple allergies which limited antibiotic choices. She did require 3 units of packed red blood cells with stabilization of H&H at 928.4 today. She also had difficulty with pain management and received IV Dilaudid as well as p.o. oxycodone. PT/OT did get her out of bed on first postop day but after this she either refused or stated that she was unable to stand. Today she agrees to try and stand. She has been getting out of bed with a [place] left. Physical therapy has been working with her with exercises in the bed. She has been eating without difficulty. She did develop a diarrhea during the night. She is noted to have frequent diarrhea issues at home as well. Chest x-ray did show some atelectasis and incentive spirometer has been encouraged. On 10/31/2020 patient was stable to be discharged home. She will continue on IV antibiotics for 5 additional doses. She will have physical therapy and Occupational Therapy. She will be followed by physician at [facility]. She will also have a follow-up appointment with Dr. Navarro on 11/18/2020. See medication reconciliation sheet for other meds. She will need repeat CBC in 3 days. She was discharged [facility] in stable and satisfactory condition. <Nettie Jay - 10/31/20 09:23> Objective Vital signs: Temp Pulse Resp BP Pulse Ox 98.6 F 58 L 19 157/63 H 97 10/31/20 08:00 10/31/20 08:00 10/31/20 08:00 10/31/20 08:00 10/31/20 08:00 <Ted Matute - 11/26/20 22:52> Temp Pulse Resp BP Pulse Ox 98.6 F 58
--- NOTE | 2020-10-31 11:03 | HMH.ORTHPN ---
Subjective Date: 10/31/20 Time: 11:00 Principal diagnosis: Status post total hip arthroplasty, right Interval history: The patient appears comfortable, groggy/sedated. Reports horrible pain, has not been willing to participate with PT or transfers with nursing. Does not like ice pack on R hip because too cold. Received 2 units PRBC over the weekend. She's reported diarrhea, infectious panel this morning negative. PN: Obj Ex Vital signs: Temp Pulse Resp BP Pulse Ox 98.6 F 58 L 19 157/63 H 97 10/31/20 08:00 10/31/20 08:00 10/31/20 08:00 10/31/20 08:00 10/31/20 08:00 - Constitutional no acute distress, morbidly obese - Routine HEENT Exam Head: Present: normocephalic Eye: Present: EOMI ENT: Present: mucous membranes moist - Routine Neck Exam Present: trachea midline - Routine Respiratory Exam Absent: respiratory distress, wheezes - Routine Cardiovascular Exam Present: RRR - Routine Abdominal Exam Present: soft. Absent: tenderness - Routine Extremities Exam Comments: R hip dressing c/d/i, no strikethrough +DF/PF/EHL RLE SILT distally RLE in all distributions palpable pedal pulses RLE, foot pink/warm R calf soft, non-tender; negative Homans - Routine Skin Exam Present: warm - Urinary Catheter Management Condom Cath placed during this visit: no Urethral indwelling: No Ag Cath placed during this visit: yes, but has since been removed by the nurse Urethral indwelling: No Insertion date: 10/25/20 Removal date: 10/26/20 Progress Note: A&P (1) Hypothyroidism Status: Acute (2) Osteoarthritis Status: Acute (3) Atrial fibrillation Status: Chronic (4) Narcolepsy Status: Acute (5) Multiple drug allergies Status: Acute (6) Anxiety Status: Acute (7) Pain due to total hip replacement Status: Acute (8) Aftercare following hip joint replacement surgery Status: Acute (9) Migraine headache Status: Chronic (10) UTI (urinary tract infection) Status: Acute (11) Postoperative anemia Status: Acute (12) E. coli UTI Status: Acute (13) Pulmonary atelectasis Status: Acute (14) Decubitus ulcer, heel Status: Acute Assessment and Plan for All Diagnoses:: 75yo F POD 6 s/p R VISHAL -- out of bed with assistance, continue TTWB RLE and posterior hip precautions -- hip abduction pillow while in bed -- PT/OT to continue; TTWB RLE, posterior hip precautions -- ice pack R hip as needed -- DVT prophy: continue aspirin x6 weeks -- pain control: percocet 10/325mg Q4-6 hours PRN -- SCDs BLE -- encourage IS 10x/hr while awake -- Dr. Matute on consult for medical management -- continue invanz for UTI, continue via PICC after d/c; will leave length of treatment up to Dr. Matute -- care management consult for dispo planning; d/c to SNF today, follow-up with me in 2 weeks
== END 2020-10-31 16:02 | DRG 470 ==
LOC: 2ND 10:52
PROVIDERS: Nurse Practitioner Family; Admitting Provider Orthopaedic Surgery; PCP Family Medicine; Visit Provider Orthopaedic Surgery
PROC: 0SR904A Replacement of Right Hip Joint with Ceramic on Polyethylene Synthetic Substitute, Uncemented, Open Approach (ICD-10-PCS; CPT 27130; principal; 2020-10-25 09:45)
DX: M16.11 Unilateral primary osteoarthritis, right hip; G47.419 Narcolepsy without cataplexy; Z79.82 Long term (current) use of aspirin; Z79.899 Other long term (current) drug therapy; Z88.0 Allergy status to penicillin; Z88.1 Allergy status to other antibiotic agents; Z88.2 Allergy status to sulfonamides; E03.9 Hypothyroidism, unspecified; J98.11 Atelectasis; B96.20 Unspecified Escherichia coli [E. coli] as the cause of diseases classified elsewhere; I10 Essential (primary) hypertension; I48.0 Paroxysmal atrial fibrillation; Z91.018 Allergy to other foods; G43.909 Migraine, unspecified, not intractable, without status migrainosus; N39.0 Urinary tract infection, site not specified; Z88.8 Allergy status to other drugs, medicaments and biological substances; L89.619 Pressure ulcer of right heel, unspecified stage; D64.9 Anemia, unspecified
CPT/HCPCS: 27130; 36415; 36569; 71045; 73502; 80048; 80053; 81001; 85014; 85018; 85025; 85610; 86850; 87086; 87088; 87186; 87506; 94761; 97110; 97162; 97166; 97530; 97535; C1713; C1751; C1776; J1335; J1956; J3370; P9016; U0003

== ENCOUNTER 2020-11-17 08:27 | Outpatient (CLI) | payer MEDICARE, MEDICAID, SELFPAY ==
[2020-11-17] VITALS (22 sets, daily range): BP systolic 119–154; BP diastolic 62–90; PULSE 56–67; RESP 16–18; TEMP 36.3–36.8; O2SAT 96–99; BMI 37.3
[2020-11-17 09:09] LABS: Hemoglobin 8.4 g/dL (12.2-16.2)
--- NOTE | 2020-11-17 16:14 | PC.NURSE ---
1130 Initiation of transfusion of 1st unit of PRBC at this time. Instructed patient regarding s/s of transfusion reaction, with patient verbalizing understanding/will reinforce. IV patent. Resp easy/reg. O2 in use at 3lpm per nc/pt O2 dependent. Lungs slightly diminished in bilateral bases. Vital signs stable. 1230 Patient tolerating blood well with no s/s transfusion reaction noted. Patient states relief of R hip pain after receiving Oxycodone as ordered. Resp easy/reg. IV patent. vital signs stable. 1335 1st unit of PRBC complete at this time. Vital signs stable. Resp easy/reg. IV patent. IV patent. Lungs consistent with baseline assessment. Tolerated blood well with no s/s transfusion reaction or problems noted.
--- NOTE | 2020-11-17 16:21 | PC.NURSE ---
1358 Initiation of transfusion of 2nd unit PRBC at this time. Reviewed/reinforced s/s transfusion reaction at this time with patient verbalizing understanding/reinforcement as needed. IV patent. Resp easy/reg. O2 in use. IV patent. 1458 Patient tolerating blood well with no s/s transfusion reaction noted. VSS. IV patent. Resp easy/reg. Denies complaints at this time. Lungs consistent with baseline assessment. 1558 Patient tolerating blood well, almost complete at this time. No s/s transfusion reaction or problems noted. 1602 2nd unit PRBC complete/ VSS/ no problems noted. Will obtain one hour post transfusion H&H.
--- NOTE | 2020-11-17 17:08 | PC.NURSE ---
1702 One hour post transfusion H&H collected at this time. Patient has tolerated blood transfusion well with no s/s transfusion reaction. VSS. Resp easy/reg. Dressing to R hip CDI. Patient without complaints at this time. Lungs consistent with baseline assessment.
[2020-11-17 17:13] LABS: Hematocrit 32.1 % (37.0-47.0)
[2020-11-17 17:14] LABS: Hemoglobin 10.2 g/dL (12.2-16.2)
--- NOTE | 2020-11-17 17:33 | PC.NURSE ---
1728 Report called to Susan Vang RN at [facility]. Patient remains stable. VSS. No s/s transfusion reaction noted. Post transfusion H&H 10.2/32.1.
--- NOTE | 2020-11-17 18:18 | PC.NURSE ---
1810 Patient transported at this time return to [facility] via ambulance. VSS. Patient stable with no s/s transfusion reaction or problems noted. report given to EMS.
== END 2020-11-17 18:10 ==
LOC: INF 08:27
PROVIDERS: Visit Provider Nurse Practitioner Family
DX: D64.9 Anemia, unspecified (principal)
CPT/HCPCS: 36415; 36430; 85014; 85018; 86850; P9016

== ENCOUNTER 2020-11-18 16:45 | Inpatient (IN) | payer MEDICARE, MEDICAID, SELFPAY ==
[2020-11-18] VITALS (13 sets, daily range): BP systolic 157–187; BP diastolic 63–91; PULSE 56–68; RESP 18–20; TEMP 36.3–37; O2SAT 91–98; BMI 37.2; BMI 37.3
--- NOTE | 2020-11-18 | XR_ITS ---
PROCEDURE: XR HIP RT 2-3V W/PELVIS CLINICAL INDICATION: Prosthesis dislocation COMPARISON: No exams were available for comparison FINDINGS: There has been a prior total hip replacement. The femoral component of the prosthesis is dislocated superior to the acetabular cup not significantly changed from most recent exam 11/18/2020. Skin clips are present along the lateral thigh. No acute fractures evident. IMPRESSION: Dislocated right hip prosthesis Dictated by: Ghassan Beth MD 11/19/2020 07:28 Ghassan Beth MD in [place] 11/19/2020 07:28
--- NOTE | 2020-11-18 14:46 | XR_ITS ---
PROCEDURE: XR HIP RT 2-3V W/PELVIS CLINICAL INDICATION: s/p RT VISHAL Follow-up hip replacement COMPARISON: CR XR HIP RT 2-3V W/PELVIS from 10/25/2020 FINDINGS: There is superior dislocation of the right femoral stem. The femoral head lies 7 cm cephalad to the central aspect of the acetabular cup. Skin clips are present. No acute fracture apparent. There are mild osteoarthritic changes of the left hip with a small sclerotic focus overlying the left ilium laterally and diffuse vascular calcification. IMPRESSION: Status post total right hip replacement with superior dislocation of the femoral stem Dictated by: Ghassan Beth MD 11/18/2020 15:55 Ghassan Beth MD in [place] 11/18/2020 15:55
[2020-11-18 16:53] LABS: Adenovirus,PCR Not Detected (NotDetected); Bordetella Pertussis Not Detected (NotDetected); Chlamydophila Pneumoniae, PCR Not Detected (NotDetected); Coronavirus 19, PCR Not Detected (NotDetected); Coronavirus 229E Not Detected (NotDetected); Coronavirus NL63 Not Detected (NotDetected); Coronavirus OC43 Not Detected (NotDetected); Coronovirus HKU1,PCR Not Detected (NotDetected); Human Metapneumovirus Not Detected (NotDetected); Influenza A, PCR Not Detected (NotDetected); Influenza AH1, 2009 Not Detected (NotDetected); Influenza AH1, PCR Not Detected (NotDetected); Influenza AH3,PCR Not Detected (NotDetected); Influenza B, PCR Not Detected (NotDetected); Mycoplasma Pneumoniae, PCR Not Detected (NotDetected); Parainfluenza 1, PCR Not Detected (NotDetected); Parainfluenza 2, PCR Not Detected (NotDetected); Parainfluenza 3, PCR Not Detected (NotDetected); Parainfluenza 4, PCR Not Detected (NotDetected); Respiratory Syncytial Virus Not Detected (NotDetected); Rhinovirus/Enterovirus Not Detected (NotDetected)
--- NOTE | 2020-11-18 17:51 | PC.NURSE ---
Pt arrived to the floor at this time.
--- NOTE | 2020-11-18 18:17 | SUR.PHASEII ---
1740: decision to admit made by Dr. Zavala due to unsuccessful right hip closed reduction. Plans for surgery to follow. Report given to Jackeline Fernandez RN.
--- NOTE | 2020-11-18 18:57 | XR_ITS ---
PROCEDURE: XR CHEST PORTABLE CLINICAL HISTORY: pre-op COMPARISON: DX XR CHEST 2V from 08/16/2020 CR XR CHEST PORTABLE PICC PLAC from 10/28/2020 CR XR CHEST PORTABLE from 10/28/2020 FINDINGS: The cardiomediastinal silhouette and pulmonary vascularity are within normal limits. The lungs are clear without infiltrates, suspicious nodules, or pleural effusions. No acute bony abnormalities. IMPRESSION: No acute findings. Dictated by: Ghassan Beth MD 11/19/2020 07:38 Ghassan Beth MD in [place] 11/19/2020 07:38
--- NOTE | 2020-11-18 19:55 | HMH.HP ---
*Admission Date: 11/18/20 *Chief complaint: dislocation right hip, recent right hip replacement *History of present illness: Patient is a 75-year-old white female, status post right total hip arthroplasty on October 25. She was discharged to a residential for physical therapy. During the course of her stay there she sustained an injury during physical therapy. On follow-up today with Dr. Mendoza she was found to have a superior dislocation of the femoral stem on the right side. A closed reduction was attempted. The plan for her is to go to the OR for an open reduction. Patient is noted to have some cellulitis along the incision line on the right. This extends onto the right lateral buttocks. There is warmth and redness. Que remain in the skin. Patient also has a pressure decubitus to the right heel which was mentioned in progress notes during her stay here in October. She has been nonambulatory and bedbound. The patient had had a UTI on her previous stay, this cultured E. coli. The patient was transfused in the previous postoperative period. Patient has multiple drug allergies. [facility] History Medical History: Reports:: Aneurysm, Anxiety, Arrhythmia, Atrial Fibrillation, Gastroesophageal Reflux Disease(GERD), Heart Murmur, Hypertension, Kidney Stones, MRSA, Palpitations Denies:: Atherosclerotic Heart Disease, Cancer, Diabetes Mellitus Type 1, Diabetes Mellitus Type 2, Internal Pacemaker, Seizures *Have you ever received a pneumonia vaccine?: No *Have you received a flu vaccine this season?: No Other Medical History: Reports: Anemia, Arthritis, Hypothyroidism, Sinus Problems, Thyroid Disease, Other. Denies: Blood Transfusion Reaction Laterality Cases: Left: Arthroscopy Knee, Right: Total Hip Replacement, Bilateral: Carpal Tunnel Release Other Surgeries: Yes: Appendectomy, Cholecystectomy, Colonoscopy, Hysterectomy-Total, Other. No: Pacemaker Amputation: No Fractures: Yes (RIGHT ARM) - *Social History Smoking Status: Never smoker Alcohol Intake: never Substance Use Type: denies use *Occupational Status:: disabled Housing: residential Household Members: other *Travel in the last 8 weeks: None - Psychiatric History Pschychiatric History:: Reports:: Anxiety Family Hx:: Diabetes, Heart Attack, Hypertension Review of Systems - Constitutional Reports weakness - Eyes Denies change in vision - ENT Denies abnormal hearing - *Cardiovascular Reports leg sores, Denies chest pain, Denies chest pain at rest, Denies shortness of breath when lying down - *Respiratory Denies chest congestion, Denies shortness of breath - *Gastrointestinal Denies abdominal pain - *Genitourinary Denies painful urination - *Musculoskeletal Reports abnormal walking, Reports joint pain, Reports decreased muscle mass, Reports muscle weakness - Integumentary/Breasts Reports change in skin color, Reports redness, Reports lesions, Reports skin ulcer, Denies yellowing of the skin - *Neurologic Reports weakness - Psychiatric Reports anxiety - Endocrine Denies increased thirst, Denies increased hunger - Hematologic/Lymphatic Denies easy bleeding - Allergic/Immunologic Denies hives Meds Home Medications Medication Instructions Recorded Confirmed Type aspirin 81 mg tablet,delayed 81 mg PO DAILY 02/16/20 11/18/20 History release hydrochlorothiazide 25 mg tablet 25 mg PO DAILY PRN 02/16/20 11/18/20 History meloxicam 15 mg tablet 15 mg PO DAILY 02/16/20 11/18/20 History Aspirin [Aspirin 81mg EC Tab] 81 mg PO BID tablet. 10/31/20 11/18/20 Rx Ertapenem Sodium [Invanz 1gm Vial] 1 gm IV Q24H 5 Days #5 vial 10/31/20 11/18/20 Rx oxycodone 10 mg tablet 10 mg PO Q6H PRN #120 tab 11/07/20 11/18/20 Rx acetaminophen 500 mg tablet 500 mg PO Q6HP PRN 30 Days #90 tab 11/18/20 Rx cetirizine 10 mg capsule 10 mg PO DAILY #30 cap 11/18/20 Rx diltiazem HCl 180 mg 180 mg PO DAILY #30 cap 11/18/20 Rx capsule,extended release 24 hr levoth
[2020-11-18 20:33] LABS: Chloride 102 mmol/L (98-107)
[2020-11-18 20:34] LABS: Potassium 4.2 mmoL/L (3.5-5.1); Sodium 135 mmol/L (136-145)
[2020-11-18 20:35] LABS: Basophils % 0.4 % (0.1-2.0); Eosinophils # 0.4 K/mm3 (0.0-0.4); Eosinophils % 5.2 % (0.1-12.0); Hematocrit 33.6 % (37.0-47.0); Hemoglobin 10.8 g/dL (12.2-16.2); Lymphocytes # 1.2 K/mm3 (0.7-4.5); Mean Corpuscular Hemoglobin 26.3 pg (27.0-31.2); Mean Platelet Volume 9.2 fl (7.4-10.4); Monocytes # 0.5 K/mm3 (0.1-1.0); Monocytes % 5.9 % (1.7-9.3); Neutrophils # 5.5 K/mm3 (1.8-7.8); Neutrophils % 72.5 % (37.0-80.0); Platelet Count 220 K/mm3 (142-424); White Blood Count 7.6 K/mm3 (4.8-10.8)
[2020-11-18 20:36] LABS: Blood Urea Nitrogen 19 mg/dl (7-17); Creatinine Clearance Estimated 73 mL/min (50-200); Estimated Glomerular Filt Rate 82 ml/min (>60); GFR (African American) 99 ML/MIN (>60)
[2020-11-18 20:37] LABS: Alanine Aminotransferase 9 U/L (12-78); Albumin Level 3.1 g/dl (3.5-5.0); Alkaline Phosphatase 92 U/L (38-126); Anion Gap 8.2 mEq/L (5-15); Aspartate Amino Transferase 22 U/L (14-36); Bilirubin,Total 1.2 mg/dl (0.2-1.3); Calcium 8.8 mg/dl (8.4-10.2); Carbon Dioxide 29 mmol/L (22.0-30.0); Glucose 115 mg/dl (74-100); Total Protein,Serum 6.1 g/dl (6.3-8.2)
[2020-11-18 20:46] LABS: INR 1.07 (0.9-1.1); Prothrombin Time 12.6 seconds (10.1-12.5)
--- NOTE | 2020-11-18 21:26 | PC.NURSE ---
Med req done 3 meds unable to confirm per oct.Dr. Carrillo has been in and ordered meds on pt this evening. This RN did request orders on pt per Dr. Zavala and she stated she plans to put in surgery oeders this evening. Dr. Carrillo did place some orders as well. Pt is alert with confusion and does c/o of pain in R hip. Heels floated and pt encouraged to turn as able. CB in reach.
--- NOTE | 2020-11-18 21:49 | HMH.OPNOTE ---
Date of procedure: 11/18/20 Pre-op Diagnosis:: R total hip arthroplasty (VISHAL) dislocation Post-op Diagnosis:: R total hip arthroplasty (VISHAL) dislocation Procedure performed:: closed reduction R hip Surgeon:: Yuki Zavala MD Game Operator(s):: none PET CARE ASSISTANT:: Dawood Landaverde Anesthesia: MAC Estimated blood loss (mL): 0 Clinical Note:: 75-year-old female status post right total hip arthroplasty performed 10/25/2020. Arthroplasty was uncomplicated but a small fracture of the greater trochanter was encountered, nondisplaced and treated with a single cable. Weightbearing was protected postoperatively but the patient refused to walk with physical therapy. She was transferred to a SNF for PT was to be continued, but the patient says she has not been walking. It is thought that she fell on 11/12/2020, but the circumstances around this event are unclear. She presented today to the outpatient clinic for routine postoperative follow-up, and no reports were sent from the senior living about her fall. No x-ray was done at the senior living after her fall. She is neurovascularly intact. The decision was made to take her immediately from clinic to the surgical department for close reduction of the right hip with sedation. I discussed the importance of prompt reduction of her hip, and if this is unsuccessful and the need for open reduction possible VISHAL revision. I discussed the risks of the procedure with the patient, including respiratory depression necessitating intubation, failure of closed reduction of the hip, possible acetabular femoral fracture, possible loosening of VISHAL components. The patient vocalized understanding and provided informed consent for the procedure. Operative findings:: unable to reduce R VISHAL Operative note:: The patient was identified in preoperative holding and the right hip identified and marked by myself. Consent was reviewed and discussed with the patient, all questions answered. Timeout was performed. Sedation was administered by the PET CARE ASSISTANT; for drug cocktail please see his detailed records. Once the patient was appropriately sedated, closed reduction of the right hip was attempted. Particularly, longitudinal traction was applied, in addition to internal/external rotation of the hip and anteriorly directed traction. Despite forceful traction and counterpressure from the second assistant warehouse manager, I was unable to reduce the hip. Further attempts were aborted and plans made for open reduction with possible revision VISHAL tomorrow. The patient then emerged from her sedation with no complications and was transferred to the MedSurg floor for admission. Tourniquet time (min): 0 Condition: stable Disposition: floor Specimens:: none Complications:: unable to reduce hip
--- NOTE | 2020-11-18 21:55 | PC.WOUNDNOTE ---
Wound Location: R Heel Length:5.5 Width:5.5 Depth: Undermining Y/N: Tunneling cm: Granulation %: Slough/necrotic tissue %: Inflammation/swelling Y/N: Pain and/or tenderness Y/N: Exudate: No Serosanguinous Sanguinous Serosanguinous Seropurulent Purulent Color:Black Clear Tara Cloudy/milky [place] Red Green Yellow Brown Qiu Blue Consistency: Thick Thin Amount: None Scant Small Moderate Large Odor Y/N:
--- NOTE | 2020-11-18 21:57 | HMH.ORTHOCON ---
*Admission Date: 11/18/20 *Reason for consult:: R VISHAL dislocation *History of present illness: 75 year-old female admitted this evening after failed attempt at closed reduction of a R VISHAL dislocation. She presented to my office this afternoon for her first postoperative follow-up status post right total hip arthroplasty performed 10/25/2020. Postoperatively she did require transfusion of packed red blood cells due to acute blood loss anemia. She had a small fracture of the greater trochanter that was cabled and weightbearing was protected. Due to pain, she refused to participate with physical therapy while admitted, saying it hurt too much to move. A lift was needed to get her out of bed and she put forth minimal effort in doing anything after surgery. We had a long discussion about goals of treatment and participation with therapy, and she was adamant she would do therapy at the nursing facility she was transferred to. Over the last 2 weeks we had not heard anything from the assisted and have assumed she has been doing well. Today she says she is still not walking because it hurts to put weight on her leg. No information was transferred with her from the assisted today, and aid with her does not know about her history. X-rays today were reviewed and showed a dislocated prosthesis. The patient denies any falls at the assisted, but phone calls to the assisted today reveal a story that the patient attempted to get out of bed to use the bathroom and fell. According to her nurse, her admitting physician was notified and no new orders were given. The patient denies this, and says instead, an aide was attempting to lift her when he fell backward, and pulled her down with him. It is thought that this is when the hip dislocated, and this was on around 11/12/2020. The patient also reports pain on her right heel and says she is started to develop a wound there from laying in bed at the assisted. Despite all of the above, it has been communicated to me that there are plans to discharge her home from the assisted on Saturday. It is unclear if she has been seen by medical provider during her stay there. Attempt was made to close reduction of the right hip this afternoon with sedation, but I was unable to reduce the prosthesis. This is a modular dual mobility implant and as such, reduction in a closed fashion may be very difficult. Also, she has likely been dislocated around 6 days and there is likely muscular contracture around the implant making reduction difficult. She will require open reduction with possible revision of her components tomorrow. [facility] History I have reviewed the patient's past medical history: Yes Medical History: Reports:: Aneurysm, Anxiety, Arrhythmia, Atrial Fibrillation, Gastroesophageal Reflux Disease(GERD), Heart Murmur, Hypertension, Kidney Stones, MRSA, Palpitations Denies:: Atherosclerotic Heart Disease, Cancer, Diabetes Mellitus Type 1, Diabetes Mellitus Type 2, Internal Pacemaker, Seizures *Have you ever received a pneumonia vaccine?: No *Have you received a flu vaccine this season?: No Other Medical History: Reports: Anemia, Arthritis, Hypothyroidism, Sinus Problems, Thyroid Disease, Other. Denies: Blood Transfusion Reaction Laterality Cases: Left: Arthroscopy Knee, Right: Total Hip Replacement, Bilateral: Carpal Tunnel Release Other Surgeries: Yes: Appendectomy, Cholecystectomy, Colonoscopy, Hysterectomy-Total, Other. No: Pacemaker Amputation: No Fractures: Yes (RIGHT ARM) - *Social History Smoking Status: Never smoker Alcohol Intake: never Substance Use Type: denies use *Occupational Status:: disabled Housing: assisted Household Members: other *Travel in the last 8 weeks: None - Psychiatric History Pschychiatric History:: Reports:: Anxiety Family Hx:: Diabetes, Heart Attack, Hypertension Review of Systems - Review of Systems Review of systems:: pertinent systems reviewed and negative unless documented
--- NOTE | 2020-11-18 22:03 | PC.WOUNDNOTE ---
Wound Location: Abd folds R side Length: Width: Depth: Undermining Y/N: N Tunneling cm: Granulation %: Slough/necrotic tissue %: Inflammation/swelling Y/N:Y Pain and/or tenderness Y/N:N Exudate:No Serosanguinous Sanguinous Serosanguinous Seropurulent Purulent Color: Red -pink/irritated Clear Tara Cloudy/milky [place] Red Green Yellow Brown Qiu Blue Consistency: Thick Thin Amount: None NO Scant Small Moderate Large Odor Y/N:NO
--- NOTE | 2020-11-18 22:04 | PC.WOUNDNOTE ---
Wound Location: R hip, sutures in place Length: Width: Depth: Undermining Y/N: No Tunneling cm: Granulation %:No Slough/necrotic tissue %: Inflammation/swelling Y/N: Pain and/or tenderness Y/N: Exudate: NO Serosanguinous Sanguinous Serosanguinous Seropurulent Purulent Color: Red Clear Tara Cloudy/milky [place] Red Green Yellow Brown Qiu Blue Consistency: Thick Thin Amount:N None None Scant Small Moderate Large Odor Y/N:N
--- NOTE | 2020-11-18 22:28 | ECG_ITS ---
APPROVED REPORT Exam: Resting ECG HR:70 bpm ECG Measurements Heart Rate 70 AXES MD 136 P 27 QRSd 82 QRS -23 QT 418 T 42 QTc 451 Conclusion Normal sinus rhythm Normal ECG Electronically signed by : Lance Santillan, 11/19/2020 08:39:10
[2020-11-18 23:52] LABS: Microscopic, Urine URINE MICROSCOPIC (MICROSCOPIC)
--- NOTE | 2020-11-18 23:58 | PC.NURSE ---
Received call from Gaudencio in the lab and he stated that the patient has 2 units of blood available for patient's surgery 11/19/20.
[2020-11-19] VITALS (25 sets, daily range): BP systolic 107–182; BP diastolic 41–81; PULSE 49–69; RESP 14–20; TEMP 35.8–36.9; O2SAT 91–100; BMI 36.8
[2020-11-19 00:06] LABS: Appearance,Urine SL CLOUDY (Clear); Bilirubin,Urine Negative (Negative); Blood, Urine Negative (Negative); Color,Urine YELLOW (Yellow); Glucose,Urine (UA) Negative (Negative); Ketones,Urine Negative (Negative); Leukocyte Esterase,Urine TRACE (Negative); Nitrate,Urine POSITIVE (Negative); Protein,Urine TRACE (Negative)
[2020-11-19 00:20] LABS: Bacteria,Urine 4+ /lpf; WBC,Urine 20-50 #/hpf (0-3)
[2020-11-19 07:15] LABS: Basophils % 0.4 % (0.1-2.0); Eosinophils # 0.4 K/mm3 (0.0-0.4); Eosinophils % 5.9 % (0.1-12.0); Hematocrit 32.9 % (37.0-47.0); Hemoglobin 10.7 g/dL (12.2-16.2); Lymphocytes # 1.2 K/mm3 (0.7-4.5); Lymphocytes % 17.9 % (10-50); Mean Corpuscular HGB Conc 32.5 g/dL (31.8-35.4); Mean Corpuscular Hemoglobin 26.8 pg (27.0-31.2); Mean Corpuscular Volume 82.5 fl (81-99); Mean Platelet Volume 8.7 fl (7.4-10.4); Monocytes # 0.4 K/mm3 (0.1-1.0); Monocytes % 6.4 % (1.7-9.3); Neutrophils # 4.5 K/mm3 (1.8-7.8); Neutrophils % 69.5 % (37.0-80.0); Platelet Count 199 K/mm3 (142-424); Red Blood Count 3.99 M/mm3 (4.20-5.40); Red Cell Distribution Width 16.1 % (11.5-17.5); White Blood Count 6.4 K/mm3 (4.8-10.8)
--- NOTE | 2020-11-19 07:39 | PC.NURSE ---
PT left the floor for Surgery at 0700 escorted by Anesthesiology.
--- NOTE | 2020-11-19 07:56 | SUR.PREOP ---
Pt's son called. Son stated he was not aware that his mother would be going to surgery today. Pt spoke to him on the phone. Told son that I would update him once we started her surgery.
--- NOTE | 2020-11-19 08:38 | PC.NURSE ---
THIS RN LEFT MESSAGES FOR PT EVALUATION ON THE FOLLOWIN: LORE 0817: RAMYA 0820: ZABRINA. NO CALL BACKS
--- NOTE | 2020-11-19 09:09 | HMH.ANESCL ---
[facility] Anesthesia Checklist - Patient Identification Patient Identification: Arm Band - Structural Data Admitted From: Inpatient Planned Operative Procedure/s: Right Hip Open Reduction, Possible VISHAL Consent for Planned Operative Procedure(s) Verified: Yes Verified Documents: Surgical Consent, History and Physical - NPO Status Verified Time NPO: 00:00 - Additional verifications Anesthesia Reactions: No Hx Blood Transfusions: No Blood Transfusion Reaction: No - Airway Assessment C-Spine Mobility Assessed: Yes (mp2) TMJ Mobility Assessed: Yes Dentition: Edentulous - Neurological Assessment Level of Consciousness: Awake, Alert - Anesthesia Plan Anesthesia Risk discussed: Yes Anesthesia Plan: Verified ASA Class: III Anesthesia Type: General [facility] History I have reviewed the patient's past medical history: Yes Medical History: Reports:: Aneurysm, Anxiety, Arrhythmia, Atrial Fibrillation, Gastroesophageal Reflux Disease(GERD), Heart Murmur, Hypertension, Kidney Stones, MRSA, Palpitations Denies:: Atherosclerotic Heart Disease, Cancer, Diabetes Mellitus Type 1, Diabetes Mellitus Type 2, Internal Pacemaker, Seizures *Have you ever received a pneumonia vaccine?: No *Have you received a flu vaccine this season?: No Other Medical History: Reports: Anemia, Arthritis, Hypothyroidism, Sinus Problems, Thyroid Disease, Other. Denies: Blood Transfusion Reaction Anesthesia experience/problems:: nac Laterality Cases: Left: Arthroscopy Knee, Right: Total Hip Replacement, Bilateral: Carpal Tunnel Release Other Surgeries: Yes: Appendectomy, Cholecystectomy, Colonoscopy, Hysterectomy-Total, Other. No: Pacemaker Amputation: No Fractures: Yes (RIGHT ARM) - *Social History Smoking Status: Never smoker Alcohol Intake: never Substance Use Type: denies use *Occupational Status:: disabled Housing: assisted Household Members: other *Travel in the last 8 weeks: None - Psychiatric History Pschychiatric History:: Reports:: Anxiety Family Hx:: Diabetes, Heart Attack, Hypertension
--- NOTE | 2020-11-19 10:21 | PC.NURSE ---
Pt down for surgery at 0722. Made Hudson aware paper work hadnt been completed, he stated [facility] would take care of it.
--- NOTE | 2020-11-19 10:31 | SUR.OPER ---
reddened open areas along right buttocks and near incision sites. see pictures in chart. Blackened right heel---pictures taken placed in chart
[2020-11-19 10:52] LABS: Chloride 102 mmol/L (98-107); Potassium 4.1 mmoL/L (3.5-5.1); Sodium 136 mmol/L (136-145)
[2020-11-19 10:55] LABS: Blood Urea Nitrogen 15 mg/dl (7-17); Creatinine Clearance Estimated 72 mL/min (50-200); Estimated Glomerular Filt Rate 82 ml/min (>60); GFR (African American) 99 ML/MIN (>60)
[2020-11-19 10:56] LABS: Anion Gap 9.1 mEq/L (5-15); Calcium 8.7 mg/dl (8.4-10.2); Carbon Dioxide 29 mmol/L (22.0-30.0); Glucose 85 mg/dl (74-100)
--- NOTE | 2020-11-19 11:20 | P.PN_ITS ---
[facility] Anesthesia Record Part I Intake, IV Amount: 1,000 Estimated blood loss (mL): 200 Urine output (mL): 500 Blood Pressure: 166/79 SaO2: 99 Pulse Rate: 54 Respiratory Rate: 16 Temperature: 98.1 F Patient is:: Drowsy, Stable Stable to PACU at:: 11:15
--- NOTE | 2020-11-19 11:33 | XR_ITS ---
PROCEDURE: XR HIP RT 2-3V W/PELVIS CLINICAL INDICATION: s/p R VISHAL revision COMPARISON: CR XR HIP RT 2-3V W/PELVIS from 11/18/2020 FINDINGS: There has been interval revision of the right hip the femoral stem with a larger femoral head prosthesis. Femoral head has been relocated. Postsurgical gas is noted. There is good alignment. IMPRESSION: Revision a relocation of the right femoral head prosthesis Dictated by: Ghassan Beth MD 11/19/2020 12:33 Ghassan Beth MD in [place] 11/19/2020 12:33
--- NOTE | 2020-11-19 11:49 | SUR.PHASEI ---
1115-pt to pacu via bed. Report received from Lilly NINO. Pt is sleeping comfortably. Easy to arouse. 1125- @ bs. No new orders. 1145-xray @ bedside for ap/lateral right hip. Pt cooperative and tolerated well. 1150-attempted report called. nurse will call back.
--- NOTE | 2020-11-19 12:12 | HMH.OPNOTE ---
Date of procedure: 11/19/20 Pre-op Diagnosis:: R total hip arthroplasty (VISHAL) dislocation Post-op Diagnosis:: R total hip arthroplasty (VISHAL) dislocation Procedure performed:: R total hip arthroplasty (VISHAL) revision (revision of bearing surface only, no change to acetabular or femoral components) Surgeon:: Yuki Zavala MD Zinc Etcher(s):: Ramona Jansen [employer] OPERATOR:: Loki Melton Anesthesia: GETA Estimated blood loss (mL): 200 Clinical Note:: 75 year-old female admitted last night after failed attempt at closed reduction of a R VISHAL dislocation. She presented to my office that afternoon for her first postoperative follow-up status post right total hip arthroplasty performed 10/25/2020. Postoperatively she did require transfusion of packed red blood cells due to acute blood loss anemia. She had a small fracture of the greater trochanter that was cabled and weightbearing was protected. Due to pain, she refused to participate with physical therapy while admitted, saying it hurt too much to move. A lift was needed to get her out of bed and she put forth minimal effort in doing anything after surgery. We had a long discussion about goals of treatment and participation with therapy, and she was adamant she would do therapy at the nursing facility she was transferred to. Over the last 2 weeks we had not heard anything from the half-way and have assumed she has been doing well. Today she says she is still not walking because it hurts to put weight on her leg. I spoke with her son this morning and he says she was participating with PT until 1 week ago, when she started to have severe pain and inability to ambulate. No information was transferred with her from the half-way yesterday. X-rays yesterday showed a dislocated prosthesis. The patient denies any falls at the half-way, but the half-way reports a fall on 11/12/20 when the patient attempted to use the bathroom unassisted. The patient says instead, an aide was attempting to lift her when he fell backward, and pulled her down with him. It is thought that this is when the hip dislocated, and this was on around 11/12/2020. The patient also reports pain on her right heel and says she is started to develop a wound there from laying in bed at the half-way. Attempt was made at closed reduction of the right hip last night but I was unable to reduce the prosthesis. I discussed the importance of prosthesis reduction with the patient; she cannot stay dislocated and I was unable to reduce this in a closed fashion. As such, she will require open reduction with possible revision of her VISHAL components. I discussed the risks of the procedure with the patient, including bleeding, infection, fracture, repeat dislocation, possible need for hip abduction orthosis, risk of DVT/PE, risk of persistent pain and risks of anesthesia. The patient vocalized understanding and provided informed consent for the procedure. Operative findings:: [employer] OR3O oxinium head, polyethylene insert and metal acetabular liner were all removed implanted: [employer] 56mm constrained liner, 22 +0 oxinium head Operative note:: The patient was identified in preoperative holding and the R hip signed by myself. Consent was verified with the patient and all questions answered. She was then taken to the operating room where she was transferred to the operative table. 2 grams vancomycin was infused intravenously and general anesthesia induced. The patient was then placed in the left lateral decubitus position; all bony prominences were well-padded. SCD was placed on the bottom non-operative leg, and the right hip was prepped and draped in the usual sterile fashion. Prior to prepping her daniele were removed. It should be noted that the incision was intact without drainage but mild erythema around staple holes. The posterior buttock was red and raw, consistent with an early decubitus ulcer. Red rashes were noted in her skin folds at the pannus
--- NOTE | 2020-11-19 12:26 | SUR.PHASEI ---
1200-detailed report called to gian hall RN. Pt transported via bed to 2nd floor per Zeinab CORRALES & Cherri. Datascope and ipc hooked to pt. VSS. Left in care of Kuldeep CORRALES. Son @ .
--- NOTE | 2020-11-19 12:40 | HMH.PHAVTE ---
[facility] Pharmacy VTE Monitoring - Patient Demographics Admission date: 11/18/20 Report Date: 11/19/20 Time: 12:40 Allergies/Adverse Reactions: Patient Allergies pseudoephedrine Allergy (Severe, Verified 11/18/20 15:47) Difficulty Breathing azithromycin Allergy (Unknown, Verified 11/18/20 15:47) Unknown allergy reaction Cephalosporins Allergy (Unknown, Verified 11/18/20 15:47) Gastrointestinal Upset chocolate flavor Allergy (Unknown, Verified 11/18/20 15:47) Unknown allergy reaction clarithromycin Allergy (Unknown, Verified 11/18/20 15:47) Unknown allergy reaction erythromycin base Allergy (Unknown, Verified 11/18/20 15:47) Rash guaifenesin Allergy (Unknown, Verified 11/18/20 15:47) Unknown allergy reaction montelukast Allergy (Unknown, Verified 11/18/20 15:47) Numbness nabumetone [From Relafen] Allergy (Unknown, Verified 11/18/20 15:47) Rash nitrofurantoin Allergy (Unknown, Verified 11/18/20 15:47) Unknown allergy reaction NSAIDS (Non-Steroidal Anti-Inflamma Allergy (Unknown, Verified 11/18/20 15:47) Unknown allergy reaction Penicillins Allergy (Unknown, Verified 11/18/20 15:47) Unknown allergy reaction prednisone Allergy (Unknown, Verified 11/18/20 15:47) Unknown allergy reaction Sulfa (Sulfonamide Antibiotics) Allergy (Unknown, Verified 11/18/20 15:47) Unknown allergy reaction clindamycin Adverse Reaction (Unknown, Verified 11/18/20 15:47) Gastrointestinal Upset codeine Adverse Reaction (Unknown, Verified 11/18/20 15:47) Gastrointestinal Upset doxycycline Adverse Reaction (Unknown, Verified 11/18/20 15:47) MAKES THE BACKS OF EYES HURT fexofenadine [From Sudha] Adverse Reaction (Unknown, Verified 11/18/20 15:47) INFLAMED INSIDE OF NOSE fluticasone [From Advair Diskus] Adverse Reaction (Unknown, Verified 11/18/20 15:47) HURTS IN THE INSIDE OF NOSE imipramine Adverse Reaction (Unknown, Verified 11/18/20 15:47) BLADDER PAIN/SLOW DRAINAGE metoclopramide [From Reglan] Adverse Reaction (Unknown, Verified 11/18/20 15:47) Gastrointestinal Upset mometasone furoate [From Nasonex] Adverse Reaction (Unknown, Verified 11/18/20 15:47) Cough paroxetine [From Paxil] Adverse Reaction (Unknown, Verified 11/18/20 15:47) Agitated salmeterol [From Advair Diskus] Adverse Reaction (Unknown, Verified 11/18/20 15:47) HURTS IN THE INSIDE OF NOSE tramadol Adverse Reaction (Unknown, Verified 11/18/20 15:47) Dizziness acetaminophen [From Lortab] Adverse Reaction (Verified 11/18/20 15:47) Gastrointestinal Upset hydrocodone [From Lortab] Adverse Reaction (Verified 11/18/20 15:47) Gastrointestinal Upset Height: 1.6 m Weight: 94.376 kg Patient Problems: Current Active Problems Weakness (Chronic) Hypothyroidism (Chronic) Multiple drug allergies (Chronic) Osteoarthritis (Chronic) Anxiety (Chronic) Aftercare following hip joint replacement surgery (Acute) Decubitus ulcer, heel (Acute) Dislocation closed, hip (Acute) Cellulitis (Acute) History of hip replacement (Acute) History of knee joint replacement (Chronic) Atrial fibrillation (Chronic) - VTE Risk Labs: VTE Related Lab Results Hgb 10.7 g/dL (12.2-16.2) L 11/19/20 07:00 Hct 32.9 % (37.0-47.0) L 11/19/20 07:00 Plt Count 199 K/mm3 (142-424) 11/19/20 07:00 PT 12.6 seconds (10.1-12.5) H 11/18/20 20:20 INR 1.07 (0.9-1.1) 11/18/20 20:20 BUN 15 mg/dl (7-17) 11/19/20 07:00 Creatinine 0.70 mg/dl (0.52-1.04) 11/19/20 07:00 Estimated Creat Clear 72 mL/min (50-200) 11/19/20 07:00 - Prophylaxis VTE Prophylaxis Ordered?: Yes Types of VTE Prophylaxis: IPCS Thigh High Location of Applied Device: Bilateral Lower Extremeties
--- NOTE | 2020-11-19 12:51 | HMH.ORTHPN ---
Subjective Date: 11/19/20 Time: 12:30 Principal diagnosis: R VISHAL dislocation Interval history: The patient underwent R VISHAL revision this morning without complication. The previous MDM bearings were removed and a constrained liner placed. EBL 200cc. PN: Obj Ex Vital signs: Temp Pulse Resp BP Pulse Ox 96.5 F L 49 L 20 149/69 H 98 11/19/20 12:15 11/19/20 12:15 11/19/20 12:15 11/19/20 12:15 11/19/20 12:15 - Constitutional no acute distress - Routine HEENT Exam Head: Present: normocephalic Eye: Present: EOMI ENT: Present: mucous membranes moist - Routine Neck Exam Present: trachea midline - Routine Respiratory Exam Absent: respiratory distress, wheezes - Routine Cardiovascular Exam Present: RRR - Routine Abdominal Exam Present: soft. Absent: tenderness - Routine Extremities Exam Comments: R hip dressing c/d/i, no strikethrough +DF/PF/EHL RLE SILT distally RLE in all distributions palpable pedal pulses RLE, foot pink/warm R calf soft, non-tender; negative Homans - Routine Skin Exam Present: warm - Routine Neurological Exam Present: alert, oriented X3, moving all extremities. Absent: sensory deficit, motor deficit - Urinary Catheter Management Ag Cath placed during this visit: no Progress Note: A&P (1) Dislocation closed, hip Status: Acute (2) Cellulitis Status: Acute (3) Aftercare following hip joint replacement surgery Status: Acute (4) Anxiety Status: Chronic (5) Decubitus ulcer, heel Status: Acute (6) Hypothyroidism Status: Chronic (7) Multiple drug allergies Status: Chronic (8) Osteoarthritis Status: Chronic (9) Weakness Status: Chronic (10) Atrial fibrillation Status: Chronic (11) History of hip replacement Status: Acute (12) History of knee joint replacement Status: Chronic Assessment and Plan for All Diagnoses:: 75yo F POD 0 s/p R VISHAL revision for irreducible dislocation; primary VISHAL 10/25/20 -- WBAT RLE, out of bed with assistance -- PT to eval; posterior hip precautions -- hip abduction pillow while in bed -- ice pack R hip as needed -- DVT prophy: restart aspirin, continue SCDs -- pain control, encourage IS -- continue IV antibiotics pending blood/urine cultures and intraoperative cultures -- medical management per Dr. Carrillo -- care management consult for dispo planning
--- NOTE | 2020-11-19 13:22 | HMH.PHACONS ---
- Pharmacy Consult Date: 11/19/20 Time: 13:22 Referring provider: DR. DAVIS Reason for Consult:: VANCOMYCIN DOSING Allergies and ADEs:: Allergies Allergy/AdvReac Type Severity Reaction Status Date / Time pseudoephedrine Allergy Severe Difficulty Verified 11/18/20 15:47 Breathing azithromycin Allergy Unknown Unknown Verified 11/18/20 15:47 allergy reaction Cephalosporins Allergy Unknown Gastrointestinal Verified 11/18/20 15:47 Upset chocolate flavor Allergy Unknown Unknown Verified 11/18/20 15:47 allergy reaction clarithromycin Allergy Unknown Unknown Verified 11/18/20 15:47 allergy reaction erythromycin base Allergy Unknown Rash Verified 11/18/20 15:47 guaifenesin Allergy Unknown Unknown Verified 11/18/20 15:47 allergy reaction montelukast Allergy Unknown Numbness Verified 11/18/20 15:47 nabumetone [From Relafen] Allergy Unknown Rash Verified 11/18/20 15:47 nitrofurantoin Allergy Unknown Unknown Verified 11/18/20 15:47 allergy reaction NSAIDS (Non-Steroidal Allergy Unknown Unknown Verified 11/18/20 15:47 Anti-Inflamma allergy reaction Penicillins Allergy Unknown Unknown Verified 11/18/20 15:47 allergy reaction prednisone Allergy Unknown Unknown Verified 11/18/20 15:47 allergy reaction Sulfa (Sulfonamide Allergy Unknown Unknown Verified 11/18/20 15:47 Antibiotics) allergy reaction clindamycin AdvReac Unknown Gastrointestinal Verified 11/18/20 15:47 Upset codeine AdvReac Unknown Gastrointestinal Verified 11/18/20 15:47 Upset doxycycline AdvReac Unknown MAKES THE Verified 11/18/20 15:47 BACKS OF EYES HURT fexofenadine [From Sudha] AdvReac Unknown INFLAMED Verified 11/18/20 15:47 INSIDE OF NOSE fluticasone AdvReac Unknown HURTS IN Verified 11/18/20 15:47 [From Advair Diskus] THE INSIDE OF NOSE imipramine AdvReac Unknown BLADDER Verified 11/18/20 15:47 PAIN/SLOW DRAINAGE metoclopramide [From Reglan] AdvReac Unknown Gastrointestinal Verified 11/18/20 15:47 Upset mometasone furoate AdvReac Unknown Cough Verified 11/18/20 15:47 [From Nasonex] paroxetine [From Paxil] AdvReac Unknown Agitated Verified 11/18/20 15:47 salmeterol AdvReac Unknown HURTS IN Verified 11/18/20 15:47 [From Advair Diskus] THE INSIDE OF NOSE tramadol AdvReac Unknown Dizziness Verified 11/18/20 15:47 acetaminophen [From Lortab] AdvReac Gastrointestinal Verified 11/18/20 15:47 Upset hydrocodone [From Lortab] AdvReac Gastrointestinal Verified 11/18/20 15:47 Upset Home Medications:: Home Medications Medication Instructions Recorded Confirmed Type aspirin 81 mg tablet,delayed 81 mg PO DAILY 02/16/20 11/18/20 History release hydrochlorothiazide 25 mg tablet 25 mg PO DAILY PRN 02/16/20 11/18/20 History meloxicam 15 mg tablet 15 mg PO DAILY 02/16/20 11/18/20 History Aspirin [Aspirin 81mg EC Tab] 81 mg PO BID tablet. 10/31/20 11/18/20 Rx Ertapenem Sodium [Invanz 1gm Vial] 1 gm IV Q24H 5 Days #5 vial 10/31/20 11/18/20 Rx oxycodone 10 mg tablet 10 mg PO Q6H PRN #120 tab 11/07/20 11/18/20 Rx acetaminophen 500 mg tablet 500 mg PO Q6HP PRN 30 Days #90 tab 11/18/20 11/18/20 Rx cetirizine 10 mg capsule 10 mg PO DAILY #30 cap 11/18/20 11/18/20 Rx diltiazem HCl 180 mg 180 mg PO DAILY #30 cap 11/18/20 Rx capsule,extended release 24 hr levothyroxine 25 mcg tablet 25 mcg PO DAILY #30 tab 11/18/20 11/18/20 Rx nadolol 80 mg tablet 80 mg PO DAILY #30 tab 11/18/20 Rx sertraline 100 mg tablet 150 mg PO DAILY #45 tab 11/18/20 11/18/20 Rx Height: 1.6 m Weight: 94.376 kg Laboratory Results:: Laboratory Results - last 24 hr 11/18/20 16:49: Chlamy pneumoniae PCR Not detected, Adenovirus (PCR) Not detected, B. pertussis DNA (PCR) Not detected, Coronavirus OC43 (PCR) Not detected, Coronavirus HKU1 (PCR) Not detected, Coronavirus 229E (PCR) Not detected, SARS-CoV-2 (PCR) Not detected,
--- NOTE | 2020-11-19 13:30 | HMH.PHAINT ---
MEDICATION RECONCILIATION COMPLETED ON PATIENT USING EXTERNAL FILL HISTORY FROM PHARMACY AND DISCHARGE SUMMARY FROM PREVIOUS ADMISSION. -FARHAD MCLAUGHLIND
--- NOTE | 2020-11-19 14:12 | HMH.ACPN2 ---
Internal Medicine - PN: Subj *Date: 11/19/20 *Time: 14:15 Interval history: Patient went to the operating room this morning, operative notes are reviewed. She is groggy from the anesthesia but speaking clearly. Ag is in place, appearance of the urine is suggestive for UTI. Urine culture is pending. Invanz is on board, as well as vancomycin. Exam Vital signs and Labs for Last 24 Hours: Temp Pulse Resp BP Pulse Ox 97.9 F 53 L 18 156/54 H 99 11/19/20 12:45 11/19/20 12:45 11/19/20 12:45 11/19/20 12:45 11/19/20 12:45 Laboratory Results - last 24 hr 11/18/20 16:49: Chlamy pneumoniae PCR Not detected, Adenovirus (PCR) Not detected, B. pertussis DNA (PCR) Not detected, Coronavirus OC43 (PCR) Not detected, Coronavirus HKU1 (PCR) Not detected, Coronavirus 229E (PCR) Not detected, SARS-CoV-2 (PCR) Not detected, Coronavirus NL63 (PCR) Not detected, Human Metapneumovir PCR Not detected, Influenza A (H1) PCR Not detected, Influ A (H1N1/09) PCR Not detected, Influenza A (H3) PCR Not detected, Influenza Type A (PCR) Not detected, Influenza Type B (PCR) Not detected, M. pneumoniae (PCR) Not detected, Parainfluenza 1 (PCR) Not detected, Parainfluenza 2 (PCR) Not detected, Parainfluenza 3 (PCR) Not detected, Parainfluenza 4 (PCR) Not detected, RSV (PCR) Not detected, Entero/Rhino (PCR) Not detected 11/18/20 20:20: WBC 7.6, RBC 4.10 L, Hgb 10.8 L, Hct 33.6 L, MCV 82.0, MCH 26.3 L, MCHC 32.0, RDW 16.0, Plt Count 220, MPV 9.2, Neut % (Auto) 72.5, Lymph % (Auto) 16.0, [place] % (Auto) 5.9, Eos % (Auto) 5.2, Baso % (Auto) 0.4, Neut # (Auto) 5.5, Lymph # (Auto) 1.2, [place] # (Auto) 0.5, Eos # (Auto) 0.4, Baso # (Auto) 0.0 11/18/20 20:20: PT 12.6 H, INR 1.07 11/18/20 20:20: Sodium 135 L, Potassium 4.2, Chloride 102, Carbon Dioxide 29, Anion Gap 8.2, BUN 19 H, Creatinine 0.70, Estimated Creat Clear 73, Estimated GFR 82, Est GFR ( Amer) 99, Glucose 115 H, Calcium 8.8, Total Bilirubin 1.2, AST 22, ALT 9 L, Alkaline Phosphatase 92, Total Protein 6.1 L, Albumin 3.1 L, Globulin 3.0, Albumin/Globulin Ratio 1.0 L 11/18/20 22:30: Blood Type O Negative, Antibody Screen Negative, Crossmatch (AHG) See Detail 11/18/20 23:18: Urine Color Yellow, Urine Appearance Sl cloudy, Urine pH 7.0, Ur Specific [place] 1.020, Urine Protein Trace, Urine Glucose (UA) Negative, Urine Ketones Negative, Urine Blood Negative, Urine Nitrate Positive, Urine Bilirubin Negative, Urine Urobilinogen 4.0, Ur Leukocyte Esterase Trace, Urine RBC None, Urine WBC 20-50, Ur Squamous Epith Cells 5-10, Urine Bacteria 4+ 11/19/20 07:00: WBC 6.4, RBC 3.99 L, Hgb 10.7 L, Hct 32.9 L, MCV 82.5, MCH 26.8 L, MCHC 32.5, RDW 16.1, Plt Count 199, MPV 8.7, Neut % (Auto) 69.5, Lymph % (Auto) 17.9, [place] % (Auto) 6.4, Eos % (Auto) 5.9, Baso % (Auto) 0.4, Neut # (Auto) 4.5, Lymph # (Auto) 1.2, [place] # (Auto) 0.4, Eos # (Auto) 0.4, Baso # (Auto) 0.0 11/19/20 07:00: Sodium 136, Potassium 4.1, Chloride 102, Carbon Dioxide 29, Anion Gap 9.1, BUN 15, Creatinine 0.70, Estimated Creat Clear 72, Estimated GFR 82, Est GFR ( Amer) 99, Glucose 85 D, Calcium 8.7 I & O for Last 24 hours: Intake & Output 11/16/20 11/17/20 11/18/20 11/19/20 23:59 23:59 23:59 23:59 Intake Total 1610 / 1610 Output Total 700 / 700 Balance 910 / 910 Weight 211 lb 208 lb 1 oz Microbiology Reports for the Last 24 Hours: Microbiology 11/19/20 Unknown Hip,Right - Right Gram Stain - Final 11/19/20 Unknown Hip,Right Gram Stain - Final 11/18/20 23:18 Urine,Clean Catch Urine Culture - Preliminary - Constitutional no acute distress, morbidly obese - *Routine HEENT Exam Head: Present: normocephalic Eye: Present: EOMI, PERRL ENT: Present: mucous membranes moist - *Routine Neck Exam Present: supple. Absent: lymphadenopathy - *Routine Respiratory Exam Present: CTA bilaterally - *Routine Cardiovascular Exam Present: RRR, murmur - *Routine Abdominal Exam Present: soft, normoactive bowel sounds. Ab
--- NOTE | 2020-11-19 14:18 | HMH.ANESII ---
[facility] Anesthesia Record Part II Discharge Time: 12:05 Destination: Medical Surgical Department PACU nurse assessment reviewed?: Yes Patient Condition:: Good Anesthesia Complications:: None Swallowing reflex intact?: Yes Cyanosis?: No Blood Pressure: 115/48 Pulse Rate: 56 Temperature: 98.2 F Mental Status: Alert & Oriented Pain level:: 0 Nausea and/or vomitting:: None Intake, IV Amount: 0
--- NOTE | 2020-11-19 17:16 | HMH.PTEV ---
Physical Therapy Evaluation Rehab PT IP Evaluation Start: 11/19/20 12:02 Freq: ONCE Status: Active Protocol: Document 11/19/20 12:02 ADALID (Rec: 11/19/20 17:16 ADALID [id number]) Subjective/History History History Patient is 75 year old female admitted to [facility] 11/18/20. She was transported from [facility] to [facility] for follow-up after R VISHAL performed 10/25/20. It was found that her prosthesis had dislocated. Closed reduction unsuccessful. ORIF performed 11/19/20. She has been non- ambulatory since initial VISHAL. Subjective Subjective My hip hurts and I'm reall drowsy. Rehab PT IP Eval Objective Appearance Patient Behavior Cooperative Patient Orientation Person,Place,Birthday Difficulty following instructions mild Speech Pattern Slurred Ambulation Patient Able to Ambulate No Balance Ability to Arise Unable Sitting Balance Leans or slides in chair Dynamic Sitting Balance Ability Fair Transfers Bed Transfer Ability Maximum x 1 (75% assist) Pain right hip Pain Intensity 8 ROM RLE PT ROM Status ABN Abnormal ROM Comment 90 deg hip flex ortho precaution MMT RLE PT MMT ABN Abnormal MMT Grade 3-/5 Rehab PT IP prob,goals,plan Problems Date of Evaluation: 11/19/20 PT IP Problems Bed Mobility,Transfers,Gait, Balance,Self care,Safety Rehab Potential Rehab Potential Fair Plan PT Intervention Plan Bed Mobility,Transfers,Gait, Balance,Self care,Safety, Therapeutic Exercise PT Plan Frequency BID Duration LOS Discharge Goals Bed Transfer Ability Moderate x 1 (50% assist) Sit to Stand Chair Transfer Ability Moderate x 1 (50% assist) Ambulation Assistive Device Rolling Walker Ambulation Distance (feet) 10 Discharge Plan PT Discharge Plan Patient to discharge back to SNF for continued rehab services once medically stable . G -code Required No Eval Complexity Eval Charge Codes 33367 - High Complexity PHYSICIAN CERTIFICATION: I certify the specified therapy services for
--- NOTE | 2020-11-19 18:17 | PC.NURSE ---
Pt post op from R hip surgery. Dsg cdi. Pt has slept and been slighty drowsy since returning to the floor at 1215. Pt will wake up and speak and is currently now eating supper. VSS. Pt was seen by PT this afternoon- see their notes. CB in reach. Have turned and repositioned, and heels floated. Ag in place and draining yellow urine without difficulty. Mx continues.
--- NOTE | 2020-11-19 19:23 | PC.NURSE ---
THIS RN PROVIDED REPORT TO JIHAN, SRNA
--- NOTE | 2020-11-19 21:00 | PC.NURSE ---
DID ROUNDING WITH THE TECHS,EMPYTIED TRASH,AND LINENS,PASSED SNACKS. PATIENT HAD NO NEEDS AT THIS TIME.SamaraM
[2020-11-20] VITALS (7 sets, daily range): BP systolic 111–155; BP diastolic 41–59; PULSE 64–71; RESP 16–18; TEMP 36.5–36.9; O2SAT 89–97; BMI 37.0
--- NOTE | 2020-11-20 04:13 | PC.NURSE ---
Pt had Sx to Repair RLE hip hardware that had become dislodged. Pt remains anxious regarding rehab and walking on RLE. Patient is had Invanv and Vanc during this shift, no reaction noted. Patient received pain Rx X 2. Inquired about additional doses of pain medicine and patient refused. Educated patient on the importance of pain medicine/relief and that break through pain was difficult to control. Patient verbalized understanding. Will continue to monitor for any acute changes.
--- NOTE | 2020-11-20 05:00 | PC.NURSE ---
EMPTIED TRASH AND LINENS REFILLED ICE PITCHERS. PT HAD NO NEEDS AT THIS TIME.Maxim
[2020-11-20 07:40] LABS: Basophils % 0.3 % (0.1-2.0); Eosinophils # 0.2 K/mm3 (0.0-0.4); Hematocrit 27.6 % (37.0-47.0); Hemoglobin 8.8 g/dL (12.2-16.2); Lymphocytes # 1.1 K/mm3 (0.7-4.5); Mean Corpuscular HGB Conc 31.9 g/dL (31.8-35.4); Mean Corpuscular Hemoglobin 26.6 pg (27.0-31.2); Mean Corpuscular Volume 83.3 fl (81-99); Monocytes # 0.5 K/mm3 (0.1-1.0); Monocytes % 7.7 % (1.7-9.3); Neutrophils # 4.5 K/mm3 (1.8-7.8); Neutrophils % 72.1 % (37.0-80.0); Platelet Count 225 K/mm3 (142-424); Red Blood Count 3.31 M/mm3 (4.20-5.40); Red Cell Distribution Width 16.2 % (11.5-17.5); White Blood Count 6.2 K/mm3 (4.8-10.8)
[2020-11-20 07:42] LABS: Chloride 103 mmol/L (98-107)
[2020-11-20 07:43] LABS: Potassium 3.8 mmoL/L (3.5-5.1); Sodium 134 mmol/L (136-145)
[2020-11-20 07:45] LABS: Alanine Aminotransferase 9 U/L (12-78); Alkaline Phosphatase 82 U/L (38-126); Aspartate Amino Transferase 20 U/L (14-36); Bilirubin,Total 0.8 mg/dl (0.2-1.3); Blood Urea Nitrogen 17 mg/dl (7-17); Creatinine Clearance Estimated 73 mL/min (50-200); Estimated Glomerular Filt Rate 82 ml/min (>60); GFR (African American) 99 ML/MIN (>60)
[2020-11-20 07:46] LABS: Albumin Level 2.6 g/dl (3.5-5.0); Anion Gap 5.8 mEq/L (5-15); Calcium 7.9 mg/dl (8.4-10.2); Carbon Dioxide 29 mmol/L (22.0-30.0); Globulin 2.6 g/dL (1.3-3.2); Glucose 104 mg/dl (74-100); Total Protein,Serum 5.2 g/dl (6.3-8.2)
--- NOTE | 2020-11-20 10:49 | HMH.ORTHPN ---
Subjective Date: 11/20/20 Time: 10:30 Principal diagnosis: R VISHAL dislocation Interval history: The patient is doing well this morning. No acute events reported overnight. Afebrile, vitals stable, though HR in the 50's a good portion of yesterday. The patient complains of some dizziness. Hgb 8.8 this morning. No drainage from the hip, no numbness or tingling in the RLE. She participated with PT yesterday and put forth very good effort, though still needed quite a bit of help. She still has pain in the R hip today, though it is improved from pre-operatively. She appears to still have a UTI; she has chronic UTIs and incontinence, 2 prior surgeries on her bladded. Her urologist is Dr. Munroe. PN: Obj Ex Vital signs: Temp Pulse Resp BP Pulse Ox 98.0 F 71 18 122/58 L 96 11/20/20 07:29 11/20/20 07:29 11/20/20 07:29 11/20/20 07:29 11/20/20 07:29 - Constitutional no acute distress, morbidly obese - Routine HEENT Exam Head: Present: normocephalic Eye: Present: EOMI ENT: Present: mucous membranes moist - Routine Neck Exam Present: supple, trachea midline - Routine Respiratory Exam Absent: respiratory distress, wheezes - Routine Cardiovascular Exam Present: RRR - Routine Abdominal Exam Present: soft. Absent: tenderness - Routine Extremities Exam Comments: R hip dressing c/d/i, no strikethrough +DF/PF/EHL RLE SILT distally RLE in all distributions palpable pedal pulses RLE, foot pink/warm R calf soft, non-tender; negative Homans - Routine Skin Exam Present: warm - Routine Neurological Exam Present: alert, oriented X3, moving all extremities, normal tone, vision grossly intact, hearing grossly intact, normal speech. Absent: sensory deficit, motor deficit, altered mental status - Routine Psychiatric Exam Present: normal affect - Urinary Catheter Management Ag Cath placed during this visit: yes Urethral indwelling: Yes Reason for continuing: Surgical procedure Insertion date: 11/18/20 Progress Note: A&P (1) Dislocation closed, hip Status: Acute (2) Cellulitis Status: Acute (3) Aftercare following hip joint replacement surgery Status: Acute (4) Anxiety Status: Chronic (5) Decubitus ulcer, heel Status: Acute (6) Hypothyroidism Status: Chronic (7) Multiple drug allergies Status: Chronic (8) Osteoarthritis Status: Chronic (9) Weakness Status: Chronic (10) Atrial fibrillation Status: Chronic (11) History of hip replacement Status: Acute (12) History of knee joint replacement Status: Chronic (13) UTI (urinary tract infection) Status: Acute Assessment and Plan for All Diagnoses:: 75yo F POD 1 s/p R VISHAL revision for irreducible dislocation; primary VISHAL 10/25/20 -- WBAT RLE, out of bed with assistance -- PT to continue, posterior hip precautions -- hip abduction pillow while in bed -- ice pack R hip as needed; encouraged cryotherapy -- DVT prophy: restart aspirin today, continue SCDs -- pain control, encourage IS -- continue IV antibiotics pending blood/urine cultures and intraoperative cultures; preliminary urine culture GNR -- medical management per Dr. Carrillo -- care management consult for dispo planning
--- NOTE | 2020-11-20 13:28 | HMH.ACPN2 ---
Internal Medicine - PN: Subj *Date: 11/20/20 *Time: 13:28 Interval history: Conferred with Dr. Mendoza earlier this morning. She is pleased with the course of her surgery yesterday. Patient is more alert today. Diminished appetite. Good pain control. UTI, currently on Invanz. She is growing a gram-negative sara. Previous urine culture sprouted E. coli. Hemoglobin today is 8.8. Exam Vital signs and Labs for Last 24 Hours: Temp Pulse Resp BP Pulse Ox 98.4 F 64 18 130/51 L 89 L 11/20/20 11:30 11/20/20 11:30 11/20/20 11:30 11/20/20 11:30 11/20/20 11:30 Laboratory Results - last 24 hr 11/18/20 23:18: Urine Color Yellow, Urine Appearance Sl cloudy, Urine pH 7.0, Ur Specific [place] 1.020, Urine Protein Trace, Urine Glucose (UA) Negative, Urine Ketones Negative, Urine Blood Negative, Urine Nitrate Positive, Urine Bilirubin Negative, Urine Urobilinogen 4.0, Ur Leukocyte Esterase Trace, Urine RBC None, Urine WBC 20-50, Ur Squamous Epith Cells 5-10, Urine Bacteria 4+ 11/20/20 07:12: WBC 6.2, RBC 3.31 L, Hgb 8.8 L, Hct 27.6 L, MCV 83.3, MCH 26.6 L, MCHC 31.9, RDW 16.2, Plt Count 225, MPV 9.0, Neut % (Auto) 72.1, Lymph % (Auto) 17.0, [place] % (Auto) 7.7, Eos % (Auto) 3.0, Baso % (Auto) 0.3, Neut # (Auto) 4.5, Lymph # (Auto) 1.1, [place] # (Auto) 0.5, Eos # (Auto) 0.2, Baso # (Auto) 0.0 11/20/20 07:12: Sodium 134 L, Potassium 3.8, Chloride 103, Carbon Dioxide 29, Anion Gap 5.8, BUN 17, Creatinine 0.70, Estimated Creat Clear 73, Estimated GFR 82, Est GFR ( Amer) 99, Glucose 104 H, Calcium 7.9 L, Total Bilirubin 0.8, AST 20, ALT 9 L, Alkaline Phosphatase 82, Total Protein 5.2 L, Albumin 2.6 L D, Globulin 2.6, Albumin/Globulin Ratio 1.0 L I & O for Last 24 hours: Intake & Output 11/17/20 11/18/20 11/19/20 11/20/20 23:59 23:59 23:59 23:59 Intake Total 1970 / 2445 1555 / 1555 Output Total 800 / 1250 750 / 750 Balance 1170 / 1195 805 / 805 Weight 211 lb 208 lb 1 oz 209 lb 7.026 oz Microbiology Reports for the Last 24 Hours: Microbiology 11/19/20 Unknown Hip,Right Gram Stain - Final 11/19/20 Unknown Hip,Right Wound Culture - Preliminary NO GROWTH AFTER 24 HOURS 11/19/20 Unknown Hip,Right - Right Gram Stain - Final 11/19/20 Unknown Hip,Right - Right Wound Culture - Preliminary NO GROWTH AFTER 24 HOURS 11/19/20 Unknown Hip,Right Gram Stain - Final 11/18/20 23:18 Urine,Clean Catch Urine Culture - Preliminary Gram Negative Rods - Constitutional no acute distress, obese, cooperative - *Routine HEENT Exam Head: Present: normocephalic Eye: Present: EOMI, PERRL ENT: Present: mucous membranes moist - *Routine Neck Exam Present: supple. Absent: lymphadenopathy - *Routine Respiratory Exam Present: CTA bilaterally - *Routine Cardiovascular Exam Present: RRR, murmur - *Routine Abdominal Exam Present: soft, normoactive bowel sounds. Absent: tenderness - *Routine Extremities Exam Present: tenderness - *Routine Skin Exam Present: lesions, wounds. Absent: pallor, jaundice - *Routine Neurological Exam Present: alert, vision grossly intact, hearing grossly intact. Absent: facial asymmetry Assessment and Plan (1) Dislocation closed, hip Status: Acute Category: Medical Code(s): S73.006A - Unspecified dislocation of unspecified hip, initial encounter (2) Cellulitis Status: Acute Qualifiers: Site of cellulitis: extremity Laterality: right Category: Medical Code(s): L03.90 - Cellulitis, unspecified (3) Aftercare following hip joint replacement surgery Status: Acute Qualifiers: Laterality: right Qualified Code(s): Z47.1 - Aftercare following joint replacement surgery; Z96.641 - Presence of right artificial hip joint Category: Medical Code(s): Z47.1 - Aftercare following joint replacement surgery; Z96.649 - Presence of unspecified artificial hip
--- NOTE | 2020-11-20 15:47 | PC.NURSE ---
Pt is alert and oriented and able to make needs known. Pts tejada was removed this am, awaiting pt to void. Dsg to R hip is cdi. Abductor pillow in place. Educated pt on importance of positioning and no 90 degree bending. Scud to LLE. Have floated heels. Pt has a cardiac consult for tomorrow. Heart murmur noted. Lungs cta. VSS. Turned q 2 hrs.
--- NOTE | 2020-11-20 18:28 | PC.NURSE ---
Pt's catheter removed and hasnt voided at this point. Abd soft and non tender at this time. Mx continues
--- NOTE | 2020-11-20 19:11 | PC.NURSE ---
THIS RN PROVIDED WC REPORT TO KENNETH WHITE.
[2020-11-21] VITALS (25 sets, daily range): BP systolic 109–154; BP diastolic 46–82; PULSE 51–66; RESP 16–18; TEMP 36.4–36.9; O2SAT 90–97; BMI 37.0
--- NOTE | 2020-11-21 04:50 | PC.NURSE ---
pt stated pain through most of shift. prn med given with some relief. pt is on a pressure relieving mattress. heels are floated. abductor pillow in place, but was removed at times for patient comfort. ice pack applied per patient request. iv patent and infusing per order. vss. pt currently resting after iv pain medication. call light in reach. will continue to monitor
[2020-11-21 06:05] LABS: Basophils % 0.6 % (0.1-2.0); Eosinophils # 0.3 K/mm3 (0.0-0.4); Eosinophils % 4.4 % (0.1-12.0); Lymphocytes # 1.3 K/mm3 (0.7-4.5); Lymphocytes % 22.7 % (10-50); Mean Corpuscular HGB Conc 31.7 g/dL (31.8-35.4); Mean Corpuscular Hemoglobin 26.3 pg (27.0-31.2); Mean Corpuscular Volume 83.1 fl (81-99); Mean Platelet Volume 8.9 fl (7.4-10.4); Monocytes # 0.5 K/mm3 (0.1-1.0); Monocytes % 8.2 % (1.7-9.3); Neutrophils # 3.7 K/mm3 (1.8-7.8); Neutrophils % 64.1 % (37.0-80.0); Platelet Count 201 K/mm3 (142-424); Red Blood Count 2.86 M/mm3 (4.20-5.40); Red Cell Distribution Width 16.2 % (11.5-17.5); White Blood Count 5.7 K/mm3 (4.8-10.8)
[2020-11-21 06:08] LABS: Chloride 104 mmol/L (98-107); Sodium 134 mmol/L (136-145)
[2020-11-21 06:09] LABS: Potassium 3.9 mmoL/L (3.5-5.1)
[2020-11-21 06:11] LABS: Alanine Aminotransferase 7 U/L (12-78); Albumin Level 2.4 g/dl (3.5-5.0); Alkaline Phosphatase 75 U/L (38-126); Anion Gap 5.9 mEq/L (5-15); Aspartate Amino Transferase 18 U/L (14-36); Bilirubin,Total 0.6 mg/dl (0.2-1.3); Blood Urea Nitrogen 16 mg/dl (7-17); Calcium 7.8 mg/dl (8.4-10.2); Carbon Dioxide 28 mmol/L (22.0-30.0); Creatinine Clearance Estimated 73 mL/min (50-200); Estimated Glomerular Filt Rate 82 ml/min (>60); GFR (African American) 99 ML/MIN (>60); Globulin 2.5 g/dL (1.3-3.2); Glucose 93 mg/dl (74-100); Total Protein,Serum 4.9 g/dl (6.3-8.2)
[2020-11-21 06:41] LABS: Thyroid Stimulating Hormone 1.33 uIU/mL (0.465-4.68)
[2020-11-21 07:04] LABS: Hematocrit 23.7 % (37.0-47.0); Hemoglobin 7.5 g/dL (12.2-16.2)
--- NOTE | 2020-11-21 08:16 | XR_ITS ---
PROCEDURE: XR CHEST PORTABLE PICC PLAC CLINICAL HISTORY: Confirm PICC line placement COMPARISON: CR XR CHEST PORTABLE PICC PLAC from 10/28/2020 CR XR CHEST PORTABLE from 10/28/2020 CR XR CHEST PORTABLE from 11/18/[address] ANGIO CHEST from 11/21/2020 FINDINGS: A PICC line has been inserted by the left subclavian approach. The tip is in satisfactory position in the region of the superior vena cava Borderline cardiomegaly without failure. Lungs are clear. Degenerative changes are present in the right AC joint IMPRESSION: A PICC line has been inserted by the left subclavian approach. The tip is in satisfactory position in the region of the superior vena cava Dictated by: Ghassan Beth MD 11/21/2020 14:29 Ghassan Beth MD in [facility] 11/21/2020 14:29
--- NOTE | 2020-11-21 09:14 | CT_ITS ---
PROCEDURE: CT ANGIO CHEST CLINCIAL INDICATION: needing o2,hip repair Shortness of air, recent hip surgery COMPARISON: No exams were available for comparison TECHNIQUE: IV Contrast: 70ML Isovue 370 Axial images obtained with sagittal and coronal reformats. All CT scans at the facility use one or more dose reduction, viz: automated exposure control, ma/kV adjustment per patient size (including targeted exams where dose is matched to indication, i.e. head), or iterative reconstruction technique. FINDINGS: HEART AND MEDIASTINAL STRUCTURES: No evidence of pulmonary embolus, aortic aneurysm, or aortic dissection. There are mildly prominent lymph nodes in the subcarinal region nonspecific measuring up to 1.5 x 0.8 cm. There is mild cardiomegaly. Coronary artery calcifications are present LUNGS AND PLEURAL SPACES: Subpleural nodule noted in the right lower lobe anteriorly and laterally at 6 mm possibly due to an area of subpleural atelectasis or scarring. Atelectatic changes are present in the lower lobes, right middle lobe and lingula. Parenchymal opacity is present within the right middle lobe somewhat irregular in nature measuring 2 x 1.3 cm. This may only be due to an area of atelectatic change. Follow-up may confirm stability. No pleural effusions. No lobar consolidation or collapse. BONY STRUCTURES: Mild degenerative changes thoracic spine UPPER ABDOMEN: Borderline splenomegaly. 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 ADDITIONAL FINDINGS: No other significant abnormalities. IMPRESSION: 1. No evidence of acute pulmonary embolus. 2. Bilateral lower lobe atelectatic changes. 3. Parenchymal opacity within the lingula which may be due to an area of atelectatic or fibrotic change. Follow-up suggested to confirm stability as pulmonary nodule cannot be excluded 4. Cardiomegaly with coronary artery calcifications. 5. Mild subcarinal adenopathy Dictated by: Ghassan Beth MD 11/21/2020 11:21 Ghassan Beth MD in [facility] 11/21/2020 11:21
--- NOTE | 2020-11-21 09:14 | CA_ITS ---
APPROVED REPORT EXAM: Comprehensive 2D, Doppler, and color-flow Echocardiogram Card Puncher: Agnes Euceda RT(R) Ht: 5 ft 3 in Wt: 210lbs BSA: 1.97 BP: 131/54 mmHg Indications: Murmur, HTN, palpitations, AFIB, GERD 2D Dimensions LVOT 2.03 cm (M/F) 1.5-2.5 M-Mode Dimensions RVDd 3.02 cm (0.9-2.6) LA Diam 4.20 cm (1.9-4.0) LVDd 4.47 cm (3.5-5.7) Ao Diam 1.98 cm (2.0-3.7) LVDs 3.50 cm (3.5-5.7) IVSd 1.29 cm (0.6-1.1) PWd 1.09 cm (0.6-1.1) EF (Teich) 44.10% FS 21.70% EDV (Teich) 91.00 mL ESV (Teich) 50.90 mL LV Diastology E Decel Time 350.00 (160-240 msec) E/A Ratio 0.90 MED E' 8.70 (< 7 cm/sec) E'/MED E' Ratio 12.21 (>14) LAT E' 8.90 (<10 cm/sec) E/LAT E' Ratio 11.93 (>14) Aortic Valve LVOT Max 128.00 (70-110 cm/s) LVOT VTI 28.13 cm AoV Peak Pravin. 266.00 (50-130 cm/s) AO Peak GR. 28.50 mmHg AO Mean GR. 13.90 (<5 mmHg) AO VTI 55.32 (18-25 cm) ABHI (VTI) 1.65 (2.5-4.5 cm2) Mitral Valve MV A Velocity 117.00 (40-130 cm/s) E/A Ratio 0.90 MV Decel. Time 350.00 (160-240 ms) Tricuspid Valve TR P. Velocity 252.00 cm/s RAP Estimate 10.00 mmHg RVSP 35.40 mmHg Left Ventricle Left atrium is mildly enlarged, left ventricle is normal size, mild concentric left ventricular hypertrophy, grade 2 diastolic dysfunction seen visually estimated ejection fraction 55%, there is no tissue Doppler evidence of raise left atrial pressure. Right Ventricle Right atrium right ventricle mildly enlarged with normal contractility. Aortic Valve Aortic valve is thickened and calcified with mean gradient across valve of 15 mmHg represents mild reticulocyte stenosis, there is no aortic insufficiency. Mitral Valve Mitral valve leaflets are minimally thickened, there is mild mitral regurgitation. Tricuspid Valve Tricuspid grossly normal, there is mild tricuspid regurgitation, tricuspid regurgitation jet velocity is inadequate for calculation of the right ventricular systolic pressure. Pulmonic Valve Pulmonic valve is poorly visualized. Great Vessels Aortic root is normal size. Pericardium No significant pericardial effusion noted. Conclusion 1. Mild biatrial alignment, normal left ventricular size, mild concentric left ventricular hypertrophy, visually estimated ejection fraction 55% with no regional wall motion abnormality, grade 2 diastolic dysfunction seen without tissue Doppler evidence of raise left atrial pressure. 2. Mildly enlarged right ventricle with normal contractility. 3. Thickened and calcified aortic valve with mean gradient across valve of 15 mmHg, represents mild aortic stenosis, there is no aortic insufficiency. 4. Mild mitral and tricuspid regurgitation. 5. No significant pericardial effusion noted. Electronically signed by : Harshal Alvarez, 11/21/2020 21:45:02
--- NOTE | 2020-11-21 09:16 | HMH.ACPN2 ---
Internal Medicine - PN: Subj *Date: 11/21/20 *Time: 09:16 Interval history: pt laying in bed, pt cries when spoken to, pt asking if she has pneumonia r/t needing o2. Exam Vital signs and Labs for Last 24 Hours: Temp Pulse Resp BP Pulse Ox 98.2 F 62 16 131/54 L 95 11/21/20 07:44 11/21/20 07:44 11/21/20 07:44 11/21/20 07:44 11/21/20 07:44 Laboratory Results - last 24 hr 11/18/20 22:30: Crossmatch (AHG) See Detail 11/21/20 05:45: WBC 5.7, RBC 2.86 L, Hgb 7.5 L*, Hct 23.7 L*, MCV 83.1, MCH 26.3 L, MCHC 31.7 L, RDW 16.2, Plt Count 201, MPV 8.9, Neut % (Auto) 64.1, Lymph % (Auto) 22.7, [place] % (Auto) 8.2, Eos % (Auto) 4.4, Baso % (Auto) 0.6, Neut # (Auto) 3.7, Lymph # (Auto) 1.3, [place] # (Auto) 0.5, Eos # (Auto) 0.3, Baso # (Auto) 0.0 11/21/20 05:45: Sodium 134 L, Potassium 3.9, Chloride 104, Carbon Dioxide 28, Anion Gap 5.9, BUN 16, Creatinine 0.70, Estimated Creat Clear 73, Estimated GFR 82, Est GFR ( Amer) 99, Glucose 93, Calcium 7.8 L, Total Bilirubin 0.6, AST 18, ALT 7 L, Alkaline Phosphatase 75, Total Protein 4.9 L, Albumin 2.4 L, Globulin 2.5, Albumin/Globulin Ratio 1.0 L, TSH 1.33 I & O for Last 24 hours: Intake & Output 11/18/20 11/19/20 11/20/20 11/21/20 11:59 11:59 11:59 11:59 Intake Total 1250 / 1250 2925 / 2925 1730 / 1730 Output Total 700 / 700 850 / 850 Balance 550 / 550 2075 / 2075 1730 / 1730 Weight 208 lb 1 oz 209 lb 7.026 oz 209 lb 7.026 oz Microbiology Reports for the Last 24 Hours: Microbiology 11/19/20 Unknown Hip,Right Gram Stain - Final 11/19/20 Unknown Hip,Right Surgical Biopsy Culture - Preliminary 11/18/20 23:18 Urine,Clean Catch Urine Culture - Final Escherichia coli 11/18/20 20:20 Blood Blood Culture - Preliminary NO GROWTH AFTER 48 HOURS 11/18/20 20:20 Blood Blood Culture - Preliminary NO GROWTH AFTER 48 HOURS 11/19/20 Unknown Hip,Right Gram Stain - Final 11/19/20 Unknown Hip,Right Wound Culture - Preliminary NO GROWTH AFTER 24 HOURS 11/19/20 Unknown Hip,Right - Right Gram Stain - Final 11/19/20 Unknown Hip,Right - Right Wound Culture - Preliminary NO GROWTH AFTER 24 HOURS - Constitutional no acute distress, obese - *Routine HEENT Exam Head: Present: normocephalic Eye: Present: PERRL ENT: Present: mucous membranes moist - *Routine Neck Exam Present: supple. Absent: lymphadenopathy - *Routine Respiratory Exam Present: decreased breath sounds, CTA bilaterally - *Routine Cardiovascular Exam Present: RRR, murmur - *Routine Abdominal Exam Present: soft, normoactive bowel sounds. Absent: tenderness - *Routine Extremities Exam Present: normal capillary refill. Absent: cyanosis, clubbing, edema - *Routine Skin Exam Present: warm, wounds. Absent: rash Comments: dressing to rt hip. rt heel with large purple unstagable - *Routine Neurological Exam Present: alert, oriented X3 - Routine Psychiatric Exam Present: depressed Assessment and Plan (1) Dislocation closed, hip Status: Acute Category: Medical Code(s): S73.006A - Unspecified dislocation of unspecified hip, initial encounter (2) Cellulitis Status: Acute Qualifiers: Site of cellulitis: extremity Laterality: right Category: Medical Code(s): L03.90 - Cellulitis, unspecified (3) Aftercare following hip joint replacement surgery Status: Acute Qualifiers: Laterality: right Qualified Code(s): Z47.1 - Aftercare following joint replacement surgery; Z96.641 - Presence of right artificial hip joint Category: Medical Code(s): Z47.1 - Aftercare following joint replacement surgery; Z96.649 - Presence of unspecified artificial hip joint (4) Anxiety Status: Chronic Category: Medical Code(s): F41.9 - Anxiety disorder, unspecified (5) Decubitus ulcer, heel Status:
--- NOTE | 2020-11-21 09:35 | HMH.CNCARD ---
History of Present Illness Consult date: 11/21/20 Requesting physician: Sylvester Carrillo Chief complaint: Murmur, atrial fib History of present illness: 75-year-old male presented to [facility] with dislocated right femoral on 11/18/2020. Patient had a recent right hip replacement in October 2019 and had been recuperating at a local facility. While at this facility patient fell landing on her right hip. Patient was taken to the OR for open reduction by Ortho. Cardiology was consulted due to patient having history of atrial fibrillation and heart murmur. Patient is alert and oriented x2. Patient denies chest pain, tightness or pressure. Patient denies shortness of breath. Swelling noted of the lower extremities. Patient states she had recently had some pain medication was feeling drowsy. Patient states history of paroxysmal atrial fibrillation. Patient is not on anticoagulation due to history of falls. Patient does have history of heart murmur. History of hypertension. Patient noted to be in sinus rhythm with heart rate of 70 bpm. BP is stable. Discussed plan of care with Dr. Barbosa. Will obtain echocardiogram to assess for LV function and valve status. Patient does have history of a heart murmur and PAF. Pending on the results of the echocardiogram, medications and therapy changes may be recommended. Thank you for allowing cardiology to participate in the care of this patient. [facility] History I have reviewed the patient's past medical history: Yes Medical History: Reports:: Aneurysm, Anxiety, Arrhythmia, Atrial Fibrillation, Gastroesophageal Reflux Disease(GERD), Heart Murmur, Hypertension, Kidney Stones, MRSA, Palpitations Denies:: Atherosclerotic Heart Disease, Cancer, Diabetes Mellitus Type 1, Diabetes Mellitus Type 2, Internal Pacemaker, Seizures *Have you ever received a pneumonia vaccine?: No *Have you received a flu vaccine this season?: No Other Medical History: Reports: Anemia, Arthritis, Hypothyroidism, Sinus Problems, Thyroid Disease, Other. Denies: Blood Transfusion Reaction Anesthesia experience/problems:: nac Laterality Cases: Left: Arthroscopy Knee, Right: Total Hip Replacement, Bilateral: Carpal Tunnel Release Other Surgeries: Yes: Appendectomy, Cholecystectomy, Colonoscopy, Hysterectomy-Total, Other. No: Pacemaker Amputation: No Fractures: Yes (RIGHT ARM) - *Social History Smoking Status: Never smoker Alcohol Intake: never Substance Use Type: denies use *Occupational Status:: disabled Housing: [facility] Household Members: other *Travel in the last 8 weeks: None - Psychiatric History Pschychiatric History:: Reports:: Anxiety Family Hx:: Diabetes, Heart Attack, Hypertension Meds Home Medications Medication Instructions Recorded Confirmed Type hydrochlorothiazide 25 mg tablet 25 mg PO DAILYP PRN 02/16/20 11/19/20 History meloxicam 15 mg tablet 15 mg PO DAILY 02/16/20 11/18/20 History Aspirin [Aspirin 81mg EC Tab] 81 mg PO BID tablet. 10/31/20 11/18/20 Rx oxycodone 10 mg tablet 10 mg PO Q6H PRN #120 tab 11/07/20 11/18/20 Rx acetaminophen 500 mg tablet 500 mg PO Q6HP PRN 30 Days #90 tab 11/18/20 11/18/20 Rx cetirizine 10 mg capsule 10 mg PO DAILY #30 cap 11/18/20 11/18/20 Rx diltiazem HCl 180 mg 180 mg PO DAILY #30 cap 11/18/20 11/19/20 Rx capsule,extended release 24 hr levothyroxine 25 mcg tablet 25 mcg PO DAILY #30 tab 11/18/20 11/18/20 Rx nadolol 80 mg tablet 80 mg PO DAILY #30 tab 11/18/20 11/19/20 Rx sertraline 100 mg tablet 150 mg PO DAILY #45 tab 11/18/20 11/18/20 Rx Allergies Allergy/AdvReac Type Severity Reaction Status Date / Time pseudoephedrine Allergy Severe Difficulty Verified 11/18/20 15:47 Breathing azithromycin Allergy Unknown Unknown Verified 11/18/20 15:47 allergy reaction Cephalosporins Allergy Unknown Gastrointestinal Verified 11/18/20 15:47 Upset chocolate flavor Allergy Unknown Unknown Verified 11/18/20 15:47 allergy
--- NOTE | 2020-11-21 10:39 | SW/DCPLANNER ---
Addendum entered by Meli Gee 11/23/20 10:15: This patient will discharge to [facility] today. Tara with [facility] and family are agreeable with plan. COVID is negative. Discharge information will be faxed to Tara with [facility]. Addendum entered by Meli Gee 11/22/20 11:18: This patient has been accepted to [facility] pending negative COVID. COVID has been ordered. Shawn is planning to discharge this patient tomorrow pending no setbacks. Tara with [facility] is aware: I will also inform patient/family of situation. Addendum entered by Meli Gee 11/22/20 09:51: Tara with [facility] is continuing to review patient information. Addendum entered by Meli [facility] 11/21/20 12:14: I have spoke with patients son (Jarrod). Jarrod stated that he does not want this patient to return to [facility] at time of discharge. Jarrod has stated that if patient shows improvement during hospital stay he would like to take her home. Jarrod is also agreeable for me to fax patient information to Tara at [facility] incase of further placement is needed at time of discharge. I will continue to follow up with: patient, MD, family and Tara with [facility]. Original Note: This patient was admitted from [facility]. I spoke with patient regarding plans once ready for discharge: patient stated that she intends on returning home with family. I have also spoke with Ghislaine from [facility] whom states family wants patient to return at time of discharge. I have attempted to contact patients son (Jarrod) regarding plans: no answer VM left. I will follow up with patient once I speak with her son. Discharge date is unknown at this time.
--- NOTE | 2020-11-21 11:52 | HMH.PTWOUND ---
Rehab Inpt Wound Evaluation Rehab IP Wound Evaluation Start: 11/18/20 22:12 Freq: ONCE Status: Active Protocol: Document 11/21/20 11:24 KIRILL (Rec: 11/21/20 11:27 [email or web address] [id number]) Rehab PT Wound Assessment Patient Status Premedicated Prior to Dressing Change No Subjective Subjective Pt has no complaints of wound - reports she has pain in L hip Wound Right Heel Wound Type Pressure Ulcer Wound Staging Unstageable Query Text:Stage I - Unbroken, red skin, no blanching. Stage II - Skin broken, superficial skin loss involving epidermis alone or also dermis. Partial loss of skin layers. Stage III - Pressure area involves epidermis, dermis and subcutaneous tissue, full thickness skin loss. Stage IV - Pressure area involves epidermis, subcutaneous tissue, bone and other supportive tissue. Full thickness skin loss with extensive destruction of underlying tissue and structures. Wound Length (cm) 8.0 Wound Width (cm) 8.0 Wound Bed Appearance Eschar Percentage Granulated (%) 0 Percentage of Slough (%) 100 Percentage of Eschar (Black) (%) 100 Wound Margins Description Well Defined Surrounding Tissue Temperature Warm Wound Drainage Description None Drainage Amount None Drainage Odor No Odor Dressing Status Open to Air Plan/Recommendation Comment off load heel w/ heel protectors - place silver polymem to soften eschar change Q3D Eval Complexity Eval Charge Codes 21193 - Moderate Complexity G-codes PT Current Status Other PT/OT Status PT Current Status Modifier CN-At least 100% impaired, limited or restricted PT Goal Status Other PT/OT Status PT Goal Status Modifer CN-At least 100% impaired, limited or restricted PHYSICIAN CERTIFICATION: I certify the specified therapy services for Lian Bliss are required, authorized, and reviewed every 30 days.
--- NOTE | 2020-11-21 12:16 | PC.WOUNDNOTE ---
Wound Location: right heel, after debriedment by pt/wound care
--- NOTE | 2020-11-21 13:35 | HMH.ORTHPN ---
Subjective Date: 11/21/20 Time: 11:30 Principal diagnosis: R VISHAL dislocation Interval history: The patient is doing well today. She is sitting in the bedside chair awaiting lunch. Hemoglobin is 7.5 this morning, she is currently being transfused. Pain is still present in the right hip, though it remains improved from preoperatively. Her heel wound is currently being evaluated by the wound care service. PN: Obj Ex Vital signs: Temp Pulse Resp BP Pulse Ox 97.8 F 51 L 16 111/47 L 97 11/21/20 11:45 11/21/20 11:45 11/21/20 11:45 11/21/20 11:45 11/21/20 11:45 - Constitutional no acute distress, morbidly obese - Routine HEENT Exam Head: Present: normocephalic Eye: Present: EOMI ENT: Present: mucous membranes moist - Routine Neck Exam Present: supple, trachea midline - Routine Respiratory Exam Absent: respiratory distress, wheezes - Routine Cardiovascular Exam Present: RRR - Routine Abdominal Exam Present: soft. Absent: tenderness - Routine Extremities Exam Comments: R hip dressing c/d/i, no strikethrough +DF/PF/EHL RLE SILT distally RLE in all distributions palpable pedal pulses RLE, foot pink/warm R calf soft, non-tender; negative Homans R heel wound = appears consistent with blister filled with coagulated blood, dry skin dry skin peeled back by myself and wound care, hematoma evacuated; dressed by WC - Routine Skin Exam Present: warm - Routine Neurological Exam Present: alert, oriented X3, moving all extremities, normal tone, vision grossly intact, hearing grossly intact, normal speech. Absent: sensory deficit, motor deficit, altered mental status - Urinary Catheter Management Ag Cath placed during this visit: yes, but has since been removed by the nurse Urethral indwelling: No Insertion date: 11/18/20 Removal date: 11/20/20 Progress Note: A&P (1) Dislocation closed, hip Status: Acute (2) Cellulitis Status: Acute (3) Aftercare following hip joint replacement surgery Status: Acute (4) Anxiety Status: Chronic (5) Decubitus ulcer, heel Status: Acute (6) Hypothyroidism Status: Chronic (7) Multiple drug allergies Status: Chronic (8) Osteoarthritis Status: Chronic (9) Weakness Status: Chronic (10) Atrial fibrillation Status: Chronic (11) History of hip replacement Status: Acute (12) History of knee joint replacement Status: Chronic (13) UTI (urinary tract infection) Status: Acute (14) Depression Status: Acute Assessment and Plan for All Diagnoses:: 75yo F POD 2 s/p R VISHAL revision for irreducible dislocation; primary VISHAL 10/25/20 -- acute blood loss anemia from surgery; being transfused currently -- continue wound care for R heel -- offload B/L heels, turn patient frequently in bed; encourage ambulation and frequent motion -- WBAT RLE, out of bed with assistance -- PT to continue, posterior hip precautions -- hip abduction pillow while in bed -- ice pack R hip as needed; encouraged cryotherapy -- DVT prophy: continue aspirin + SCDs -- pain control, encourage IS -- continue IV antibiotics pending blood/urine cultures and intraoperative cultures; urine culture positive for E. coli, hip cultures no growth to date -- medical management per Dr. Carrillo -- care management consult for dispo planning
--- NOTE | 2020-11-21 13:42 | PC.NURSE ---
Atif Curry RN here to insert PICC
[2020-11-21 14:14] LABS: Vancomycin,Trough 18.5 ug/mL (5.0-10.0)
--- NOTE | 2020-11-21 14:37 | HMH.PHACONS ---
- Pharmacy Consult Date: 11/21/20 Time: 14:37 Referring provider: DR. DAVIS Reason for Consult:: VANCOMYCIN TROUGH LEVEL Allergies and ADEs:: Allergies Allergy/AdvReac Type Severity Reaction Status Date / Time pseudoephedrine Allergy Severe Difficulty Verified 11/18/20 15:47 Breathing azithromycin Allergy Unknown Unknown Verified 11/18/20 15:47 allergy reaction Cephalosporins Allergy Unknown Gastrointestinal Verified 11/18/20 15:47 Upset chocolate flavor Allergy Unknown Unknown Verified 11/18/20 15:47 allergy reaction clarithromycin Allergy Unknown Unknown Verified 11/18/20 15:47 allergy reaction erythromycin base Allergy Unknown Rash Verified 11/18/20 15:47 guaifenesin Allergy Unknown Unknown Verified 11/18/20 15:47 allergy reaction montelukast Allergy Unknown Numbness Verified 11/18/20 15:47 nabumetone [From Relafen] Allergy Unknown Rash Verified 11/18/20 15:47 nitrofurantoin Allergy Unknown Unknown Verified 11/18/20 15:47 allergy reaction NSAIDS (Non-Steroidal Allergy Unknown Unknown Verified 11/18/20 15:47 Anti-Inflamma allergy reaction Penicillins Allergy Unknown Unknown Verified 11/18/20 15:47 allergy reaction prednisone Allergy Unknown Unknown Verified 11/18/20 15:47 allergy reaction Sulfa (Sulfonamide Allergy Unknown Unknown Verified 11/18/20 15:47 Antibiotics) allergy reaction clindamycin AdvReac Unknown Gastrointestinal Verified 11/18/20 15:47 Upset codeine AdvReac Unknown Gastrointestinal Verified 11/18/20 15:47 Upset doxycycline AdvReac Unknown MAKES THE Verified 11/18/20 15:47 BACKS OF EYES HURT fexofenadine [From Sudha] AdvReac Unknown INFLAMED Verified 11/18/20 15:47 INSIDE OF NOSE fluticasone AdvReac Unknown HURTS IN Verified 11/18/20 15:47 [From Advair Diskus] THE INSIDE OF NOSE imipramine AdvReac Unknown BLADDER Verified 11/18/20 15:47 PAIN/SLOW DRAINAGE metoclopramide [From Reglan] AdvReac Unknown Gastrointestinal Verified 11/18/20 15:47 Upset mometasone furoate AdvReac Unknown Cough Verified 11/18/20 15:47 [From Nasonex] paroxetine [From Paxil] AdvReac Unknown Agitated Verified 11/18/20 15:47 salmeterol AdvReac Unknown HURTS IN Verified 11/18/20 15:47 [From Advair Diskus] THE INSIDE OF NOSE tramadol AdvReac Unknown Dizziness Verified 11/18/20 15:47 acetaminophen [From Lortab] AdvReac Gastrointestinal Verified 11/18/20 15:47 Upset hydrocodone [From Lortab] AdvReac Gastrointestinal Verified 11/18/20 15:47 Upset Home Medications:: Home Medications Medication Instructions Recorded Confirmed Type hydrochlorothiazide 25 mg tablet 25 mg PO DAILYP PRN 02/16/20 11/19/20 History meloxicam 15 mg tablet 15 mg PO DAILY 02/16/20 11/18/20 History Aspirin [Aspirin 81mg EC Tab] 81 mg PO BID tablet. 10/31/20 11/18/20 Rx oxycodone 10 mg tablet 10 mg PO Q6H PRN #120 tab 11/07/20 11/18/20 Rx acetaminophen 500 mg tablet 500 mg PO Q6HP PRN 30 Days #90 tab 11/18/20 11/18/20 Rx cetirizine 10 mg capsule 10 mg PO DAILY #30 cap 11/18/20 11/18/20 Rx diltiazem HCl 180 mg 180 mg PO DAILY #30 cap 11/18/20 11/19/20 Rx capsule,extended release 24 hr levothyroxine 25 mcg tablet 25 mcg PO DAILY #30 tab 11/18/20 11/18/20 Rx nadolol 80 mg tablet 80 mg PO DAILY #30 tab 11/18/20 11/19/20 Rx sertraline 100 mg tablet 150 mg PO DAILY #45 tab 11/18/20 11/18/20 Rx Height: 1.6 m Weight: 95 kg Laboratory Results:: Laboratory Results - last 24 hr 11/18/20 22:30: Blood Type O Negative, Antibody Screen Negative, Crossmatch (AHG) See Detail 11/21/20 05:45: WBC 5.7, RBC 2.86 L, Hgb 7.5 L*, Hct 23.7 L*, MCV 83.1, MCH 26.3 L, MCHC 31.7 L, RDW 16.2, Plt Count 201, MPV 8.9, Neut % (Auto) 64.1, Lymph % (Auto) 22.7, Phillips % (Auto) 8.2, Eos % (Auto) 4.4, Baso % (Auto) 0.6, Neut # (Auto) 3.7, Lymph # (Auto) 1.3, Phillips # (Auto) 0.5, Eos # (Auto) 0.3, Baso # (Auto)
--- NOTE | 2020-11-21 17:18 | PC.NURSE ---
Pt was alert and oriented x4 on morning assessment. As the shift went on pt slowly became more confused. webfed offset press operator MD (Lucinda) notified. Pt had been given 2 doses of prn pain meds per mar for report of severe hip pain. She has her 2nd unit of PRBC's transfusing at this time. Son is at bedside. MD requested to be updated on pts neurological status and notified of changes. She has been using a brief due to incontinence. She was up to the chair for a few hours and tolerated fair. Dressing to right hip and dressing to rt heel are clean, dry and intact. Abductor pillow is in place and bilateral heels are floated. Nystatin applied to folds per oct. Will continue to monitor.
[2020-11-21 18:56] LABS: Hematocrit 29.3 % (37.0-47.0)
[2020-11-21 19:09] LABS: Hemoglobin 9.5 g/dL (12.2-16.2)
[2020-11-22 03:38] VITALS: BP 144/59; PULSE 60; RESP 19; TEMP 36.8; O2SAT 90
--- NOTE | 2020-11-22 03:45 | PC.NURSE ---
Pt resting comfortably with eyes closed and in no acute distress. Patient requested pain medicine X 1 which was effective AEB pti resting with eyes closed and no c.o of additional pain. Patient on 50 ml maintenance fluids and reced 1 GRAM INVANZ. Will continue to monitor for any acute changes.
[2020-11-22 05:00] VITALS: BMI 38.2
[2020-11-22 05:25] LABS: Chloride 103 mmol/L (98-107); Sodium 134 mmol/L (136-145)
[2020-11-22 05:26] LABS: Basophils % 0.5 % (0.1-2.0); Eosinophils # 0.4 K/mm3 (0.0-0.4); Eosinophils % 5.8 % (0.1-12.0); Hematocrit 29.6 % (37.0-47.0); Hemoglobin 9.4 g/dL (12.2-16.2); Lymphocytes # 1.2 K/mm3 (0.7-4.5); Lymphocytes % 19.3 % (10-50); Mean Corpuscular HGB Conc 31.7 g/dL (31.8-35.4); Mean Corpuscular Volume 85.3 fl (81-99); Mean Platelet Volume 8.7 fl (7.4-10.4); Monocytes # 0.4 K/mm3 (0.1-1.0); Monocytes % 5.6 % (1.7-9.3); Neutrophils # 4.3 K/mm3 (1.8-7.8); Neutrophils % 68.9 % (37.0-80.0); Platelet Count 209 K/mm3 (142-424); Red Blood Count 3.47 M/mm3 (4.20-5.40); White Blood Count 6.2 K/mm3 (4.8-10.8)
[2020-11-22 05:28] LABS: Blood Urea Nitrogen 15 mg/dl (7-17); Creatinine Clearance Estimated 75 mL/min (50-200); Estimated Glomerular Filt Rate 97 ml/min (>60); GFR (African American) 118 ML/MIN (>60)
[2020-11-22 05:29] LABS: Calcium 7.9 mg/dl (8.4-10.2); Carbon Dioxide 28 mmol/L (22.0-30.0); Glucose 96 mg/dl (74-100)
[2020-11-22 07:44] VITALS: BP 138/52; PULSE 62; RESP 18; TEMP 37.2; O2SAT 92
--- NOTE | 2020-11-22 09:29 | HMH.PNCARD ---
Subjective Date: 11/22/20 Time: 09:00 Principal diagnosis: R VISHAL dislocation Interval history: Cardiology was consulted yesterday due to patient having history of atrial fibrillation and heart murmur. Patient is alert and oriented x2. Patient denies chest pain, tightness or pressure. Patient denies shortness of breath. Swelling noted of the lower extremities. Patient states she had recently had some pain medication was feeling drowsy. Patient states history of paroxysmal atrial fibrillation. Patient is not on anticoagulation due to history of falls. Patient does have history of heart murmur. History of hypertension. Patient noted to be in sinus rhythm with heart rate of 75 bpm. BP is stable. Echocardiogram was performed. Conclusion 1. Mild biatrial alignment, normal left ventricular size, mild concentric left ventricular hypertrophy, visually estimated ejection fraction 55% with no regional wall motion abnormality, grade 2 diastolic dysfunction seen without tissue Doppler evidence of raise left atrial pressure. 2. Mildly enlarged right ventricle with normal contractility. 3. Thickened and calcified aortic valve with mean gradient across valve of 15 mmHg, represents mild aortic stenosis, there is no aortic insufficiency. 4. Mild mitral and tricuspid regurgitation. 5. No significant pericardial effusion noted. Discussed plan of care with Dr. Barbosa. No further cardiac testing is recommended at this time. Continue current medications. Please notify cardiology of any changes in patient status. Thank you for allowing cardiology to participate in the care of this patient. Exam Vital signs and Labs for Last 24 Hours: Temp Pulse Resp BP Pulse Ox 99.0 F 62 18 138/52 L 92 L 11/22/20 07:44 11/22/20 07:44 11/22/20 07:44 11/22/20 07:44 11/22/20 07:44 Laboratory Results - last 24 hr 11/18/20 22:30: Blood Type O Negative, Antibody Screen Negative, Crossmatch (AHG) See Detail 11/21/20 13:12: Vancomycin Trough 18.5 H 11/21/20 18:36: Hgb 9.5 L D, Hct 29.3 L 11/22/20 05:00: WBC 6.2, RBC 3.47 L, Hgb 9.4 L, Hct 29.6 L, MCV 85.3, MCH 27.0, MCHC 31.7 L, RDW 16.0, Plt Count 209, MPV 8.7, Neut % (Auto) 68.9, Lymph % (Auto) 19.3, [place]cleod % (Auto) 5.6, Eos % (Auto) 5.8, Baso % (Auto) 0.5, Neut # (Auto) 4.3, Lymph # (Auto) 1.2, Mcleod # (Auto) 0.4, Eos # (Auto) 0.4, Baso # (Auto) 0.0 11/22/20 05:00: Sodium 134 L, Potassium 4.0, Chloride 103, Carbon Dioxide 28, Anion Gap 7.0, BUN 15, Creatinine 0.60, Estimated Creat Clear 75, Estimated GFR 97, Est GFR ( Amer) 118, Glucose 96, Calcium 7.9 L I & O for Last 24 hours: Intake & Output 11/19/20 11/20/20 11/21/20 11/22/20 23:59 23:59 23:59 23:59 Intake Total 2620 / 3095 2925 / 3285 1794 / 2319 1525 / 1525 Output Total 800 / 1250 750 / 750 200 / 200 Balance 1820 / 1845 2175 / 2535 1794 / 2319 1325 / 1325 Weight 208 lb 1 oz 209 lb 7.026 oz 209 lb 7.026 oz 216 lb Microbiology Reports for the Last 24 Hours: Microbiology 11/19/20 Unknown Hip,Right Gram Stain - Final 11/19/20 Unknown Hip,Right Surgical Biopsy Culture - Preliminary 11/19/20 Unknown Hip,Right - Right Gram Stain - Final 11/19/20 Unknown Hip,Right - Right Wound Culture - Preliminary NO GROWTH AFTER 48 HOURS 11/19/20 Unknown Hip,Right Gram Stain - Final 11/19/20 Unknown Hip,Right Wound Culture - Preliminary NO GROWTH AFTER 48 HOURS 11/18/20 23:18 Urine,Clean Catch Urine Culture - Final Escherichia coli - Constitutional no acute distress, obese, cooperative - *Routine HEENT Exam Head: Present: normocephalic ENT: Present: mucous membranes moist - *Routine Neck Exam Present: supple, full ROM, normal carotid upstroke. Absent: JVD, carotid bruit, lymphadenopathy - *Routine Respiratory Exam Present: accessory muscle use, CTA bilaterally. Absent: wheezes, crackles - *Routine Cardio
[2020-11-22 11:01] VITALS: RESP 16
--- NOTE | 2020-11-22 11:12 | HMH.ACPN ---
Internal Medicine - PN: Subj *Date: 11/22/20 *Time: 11:12 Exam Vital signs and Labs for Last 24 Hours: Temp Pulse Resp BP Pulse Ox 99.0 F 62 16 138/52 L 92 L 11/22/20 07:44 11/22/20 07:44 11/22/20 11:01 11/22/20 07:44 11/22/20 07:44 Laboratory Results - last 24 hr 11/18/20 22:30: Blood Type O Negative, Antibody Screen Negative, Crossmatch (AHG) See Detail 11/21/20 13:12: Vancomycin Trough 18.5 H 11/21/20 18:36: Hgb 9.5 L D, Hct 29.3 L 11/22/20 05:00: WBC 6.2, RBC 3.47 L, Hgb 9.4 L, Hct 29.6 L, MCV 85.3, MCH 27.0, MCHC 31.7 L, RDW 16.0, Plt Count 209, MPV 8.7, Neut % (Auto) 68.9, Lymph % (Auto) 19.3, [place] % (Auto) 5.6, Eos % (Auto) 5.8, Baso % (Auto) 0.5, Neut # (Auto) 4.3, Lymph # (Auto) 1.2, [place] # (Auto) 0.4, Eos # (Auto) 0.4, Baso # (Auto) 0.0 11/22/20 05:00: Sodium 134 L, Potassium 4.0, Chloride 103, Carbon Dioxide 28, Anion Gap 7.0, BUN 15, Creatinine 0.60, Estimated Creat Clear 75, Estimated GFR 97, Est GFR ( Amer) 118, Glucose 96, Calcium 7.9 L I & O for Last 24 hours: Intake & Output 11/19/20 11/20/20 11/21/20 11/22/20 23:59 23:59 23:59 23:59 Intake Total 2620 / 3095 2925 / 3285 1794 / 2319 1525 / 1525 Output Total 800 / 1250 750 / 750 200 / 200 Balance 1820 / 1845 2175 / 2535 1794 / 2319 1325 / 1325 Weight 94.376 kg 95 kg 95 kg 97.976 kg Microbiology Reports for the Last 24 Hours: Microbiology 11/19/20 Unknown Hip,Right Gram Stain - Final 11/19/20 Unknown Hip,Right Surgical Biopsy Culture - Preliminary 11/19/20 Unknown Hip,Right - Right Gram Stain - Final 11/19/20 Unknown Hip,Right - Right Wound Culture - Preliminary NO GROWTH AFTER 48 HOURS 11/19/20 Unknown Hip,Right Gram Stain - Final 11/19/20 Unknown Hip,Right Wound Culture - Preliminary NO GROWTH AFTER 48 HOURS Assessment and Plan (1) Dislocation closed, hip Status: Acute Category: Medical Code(s): S73.006A - Unspecified dislocation of unspecified hip, initial encounter (2) Cellulitis Status: Acute Qualifiers: Site of cellulitis: extremity Laterality: right Category: Medical Code(s): L03.90 - Cellulitis, unspecified (3) Aftercare following hip joint replacement surgery Status: Acute Qualifiers: Laterality: right Qualified Code(s): Z47.1 - Aftercare following joint replacement surgery; Z96.641 - Presence of right artificial hip joint Category: Medical Code(s): Z47.1 - Aftercare following joint replacement surgery; Z96.649 - Presence of unspecified artificial hip joint (4) Anxiety Status: Chronic Category: Medical Code(s): F41.9 - Anxiety disorder, unspecified (5) Decubitus ulcer, heel Status: Acute Qualifiers: Pressure injury stage: unspecified pressure injury stage Laterality: right Qualified Code(s): L89.619 - Pressure ulcer of right heel, unspecified stage Category: Medical Code(s): L89.609 - Pressure ulcer of unspecified heel, unspecified stage (6) Hypothyroidism Status: Chronic Qualifiers: Hypothyroidism type: acquired Qualified Code(s): E03.9 - Hypothyroidism, unspecified Category: Medical Code(s): E03.9 - Hypothyroidism, unspecified (7) Multiple drug allergies Status: Chronic Category: Medical Code(s): Z88.9 - Allergy status to unspecified drugs, medicaments and biological substances (8) Osteoarthritis Status: Chronic Qualifiers: Osteoarthritis location: multiple joints Category: Medical Code(s): M19.90 - Unspecified osteoarthritis, unspecified site (9) Weakness Status: Chronic Category: Medical Code(s): R53.1 - Weakness (10) Atrial fibrillation Status: Chronic Qualifiers: Atrial fibrillation type: paroxysmal Qualified Code(s): I48.0 - Paroxysmal atrial fibrillation Category: Medical Code(s): I48.91 - Unspecified atrial fibrillation (11) History of hip replacement Status: Acute Qualifiers
--- NOTE | 2020-11-22 11:50 | HMH.ACPN2 ---
Internal Medicine - PN: Subj *Date: 11/22/20 *Time: 09:04 Interval history: 75-year-old female patient resting in bed quietly, respirations easy even. Hemoglobin this morning 9.5 after 2 units of packed red blood cells yesterday. She reports she is feeling better today than yesterday. Elastoplast dressing clean,dry, and intact to right hip. Wedge between patient's bilateral lower extremities in place. She does report pain is at a tolerable level. Exam Vital signs and Labs for Last 24 Hours: Temp Pulse Resp BP Pulse Ox 99.0 F 62 16 138/52 L 92 L 11/22/20 07:44 11/22/20 07:44 11/22/20 11:01 11/22/20 07:44 11/22/20 07:44 Laboratory Results - last 24 hr 11/18/20 22:30: Blood Type O Negative, Antibody Screen Negative, Crossmatch (AHG) See Detail 11/21/20 13:12: Vancomycin Trough 18.5 H 11/21/20 18:36: Hgb 9.5 L D, Hct 29.3 L 11/22/20 05:00: WBC 6.2, RBC 3.47 L, Hgb 9.4 L, Hct 29.6 L, MCV 85.3, MCH 27.0, MCHC 31.7 L, RDW 16.0, Plt Count 209, MPV 8.7, Neut % (Auto) 68.9, Lymph % (Auto) 19.3, [place] % (Auto) 5.6, Eos % (Auto) 5.8, Baso % (Auto) 0.5, Neut # (Auto) 4.3, Lymph # (Auto) 1.2, [place] # (Auto) 0.4, Eos # (Auto) 0.4, Baso # (Auto) 0.0 11/22/20 05:00: Sodium 134 L, Potassium 4.0, Chloride 103, Carbon Dioxide 28, Anion Gap 7.0, BUN 15, Creatinine 0.60, Estimated Creat Clear 75, Estimated GFR 97, Est GFR ( Amer) 118, Glucose 96, Calcium 7.9 L I & O for Last 24 hours: Intake & Output 11/19/20 11/20/20 11/21/20 11/22/20 23:59 23:59 23:59 23:59 Intake Total 2620 / 3095 2925 / 3285 1794 / 2319 1525 / 1525 Output Total 800 / 1250 750 / 750 200 / 200 Balance 1820 / 1845 2175 / 2535 1794 / 2319 1325 / 1325 Weight 208 lb 1 oz 209 lb 7.026 oz 209 lb 7.026 oz 216 lb Microbiology Reports for the Last 24 Hours: Microbiology 11/19/20 Unknown Hip,Right Gram Stain - Final 11/19/20 Unknown Hip,Right Surgical Biopsy Culture - Preliminary 11/19/20 Unknown Hip,Right - Right Gram Stain - Final 11/19/20 Unknown Hip,Right - Right Wound Culture - Preliminary NO GROWTH AFTER 48 HOURS 11/19/20 Unknown Hip,Right Gram Stain - Final 11/19/20 Unknown Hip,Right Wound Culture - Preliminary NO GROWTH AFTER 48 HOURS - Constitutional no acute distress - *Routine HEENT Exam Head: Present: normocephalic Eye: Present: EOMI ENT: Present: mucous membranes moist - *Routine Respiratory Exam Present: CTA bilaterally. Absent: accessory muscle use - *Routine Cardiovascular Exam Present: RRR, murmur - *Routine Abdominal Exam Present: soft, normoactive bowel sounds. Absent: tenderness, rigid - *Routine Extremities Exam Present: pulses intact, calf tenderness. Absent: cyanosis, clubbing - *Routine Skin Exam Present: dry, warm, wounds. Absent: cyanosis, erythema Comments: Elastoplast dressing to right hip clean, dry, and intact - *Routine Neurological Exam Present: alert, oriented X3. Absent: altered mental status, hemineglect - Routine Psychiatric Exam Present: normal affect, normal thought process. Absent: auditory hallucinations, visual hallucinations Assessment and Plan (1) Dislocation closed, hip Status: Acute Category: Medical Code(s): S73.006A - Unspecified dislocation of unspecified hip, initial encounter (2) Cellulitis Status: Acute Qualifiers: Site of cellulitis: extremity Laterality: right Category: Medical Code(s): L03.90 - Cellulitis, unspecified (3) Aftercare following hip joint replacement surgery Status: Acute Qualifiers: Laterality: right Qualified Code(s): Z47.1 - Aftercare following joint replacement surgery; Z96.641 - Presence of right artificial hip joint Category: Medical Code(s): Z47.1 - Aftercare following joint replacement surgery; Z96.649 - Presence of unspecified artificial hip joint (4) Anxiety Status: Chronic Category: Medical Code(s): F41.9 - An
--- NOTE | 2020-11-22 12:05 | HMH.ORTHPN ---
Subjective Date: 11/22/20 Time: 11:30 Principal diagnosis: R VISHAL dislocation Interval history: The patient appears well this morning. Hemoglobin is stabilized after transfusion and vitals remained stable. She reports some subjective dizziness. Was unable to do therapy this morning because echocardiogram was being done during her therapy time. PN: Obj Ex Vital signs: Temp Pulse Resp BP Pulse Ox 99.0 F 62 16 138/52 L 92 L 11/22/20 07:44 11/22/20 07:44 11/22/20 11:01 11/22/20 07:44 11/22/20 07:44 - Constitutional no acute distress - Routine HEENT Exam Head: Present: normocephalic Eye: Present: EOMI ENT: Present: mucous membranes moist - Routine Neck Exam Present: trachea midline - Routine Respiratory Exam Absent: respiratory distress - Routine Cardiovascular Exam Present: RRR - Routine Abdominal Exam Present: soft - Routine Extremities Exam Comments: R hip dressing c/d/i, no strikethrough Dressing removed and changed, Prineo dressing has peeled off the wound, mild serous drainage No periwound erythema, no foul odor or purulence +DF/PF/EHL RLE SILT distally RLE in all distributions palpable pedal pulses RLE, foot pink/warm R calf soft, non-tender; negative Homans - Routine Skin Exam Present: warm - Routine Neurological Exam Present: alert, oriented X3 - Urinary Catheter Management Ag Cath placed during this visit: yes, but has since been removed by the nurse Urethral indwelling: No Insertion date: 11/18/20 Removal date: 11/20/20 Progress Note: A&P (1) Dislocation closed, hip Status: Acute (2) Cellulitis Status: Acute (3) Aftercare following hip joint replacement surgery Status: Acute (4) Anxiety Status: Chronic (5) Decubitus ulcer, heel Status: Acute (6) Hypothyroidism Status: Chronic (7) Multiple drug allergies Status: Chronic (8) Osteoarthritis Status: Chronic (9) Weakness Status: Chronic (10) Atrial fibrillation Status: Chronic (11) History of hip replacement Status: Acute (12) History of knee joint replacement Status: Chronic (13) UTI (urinary tract infection) Status: Acute (14) Depression Status: Acute Assessment and Plan for All Diagnoses:: 75yo F POD 3 s/p R VISHAL revision for irreducible dislocation; primary VISHAL 10/25/20 -- continue wound care for R heel -- offload B/L heels, turn patient frequently in bed; encourage ambulation and frequent motion -- WBAT RLE, out of bed with assistance -- PT to continue, posterior hip precautions -- hip abduction pillow while in bed -- ice pack R hip as needed; encouraged cryotherapy -- DVT prophy: continue aspirin + SCDs -- pain control, encourage IS -- continue IV antibiotics pending blood/urine cultures and intraoperative cultures; urine culture positive for E. coli, hip cultures no growth to date -- medical management per Dr. Carrillo -- care management consult for dispo planning; okay to DC to SNF from Ortho standpoint whenever medically cleared
--- NOTE | 2020-11-22 14:21 | PC.NURSE ---
Pt transferred back to bed by physical therapy. SRNA states that it took four attempts to get pt up from chair, w/ use of walker to get pt back in bed. When repositioned in bed, and rolled to left side noted that pt's dressing was saturated and serosang drainage was oozing out of dressing. Dr. Zavala notified of this. MD states to remove dressing and replace w/ new island dressing, may also use gauze and foam tape to reinforce if needed.
[2020-11-22 14:46] VITALS: RESP 16
--- NOTE | 2020-11-22 14:50 | HMH.BHCONS ---
*Admission Date: 11/18/20 *Reason for consult:: depression *History of present illness: Patient interviewed at bedside on 11/21/2020. Her nurse is in the room administering blood at this time. -Patient is not alert and oriented -she states that she is at [employer] -she is not sure of the year -not sure of the date -not sure of the day of week -states that the president is Honey; then says no not honey; it is bider. -she nods off several times in the session and I have to keep saying her name or repeating the question -she states that she is really tired -she states that she was at a snf but it was not a good place so she will not be going back there -she did come from [employer] -when asked how she feels she will reply that she is tired; or she is in pain -when asked about depression she states that 'wouldn't anyone have it in my condition' -it is hard to obtain any information from her -not sure if this is memory deficit or groggy from medications -nurse says that she did give her oxycontin 10mg about 20 minutes ago I am unable to do an assessment on her related to sedation. Would be more than happy to attempt at a later date. TIME IN: 1629 TIME OUT: 1644 [facility] History Medical History: Reports:: Aneurysm, Anxiety, Arrhythmia, Atrial Fibrillation, Gastroesophageal Reflux Disease(GERD), Heart Murmur, Hypertension, Kidney Stones, MRSA, Palpitations Denies:: Atherosclerotic Heart Disease, Cancer, Diabetes Mellitus Type 1, Diabetes Mellitus Type 2, Internal Pacemaker, Seizures *Have you ever received a pneumonia vaccine?: No *Have you received a flu vaccine this season?: No Other Medical History: Reports: Anemia, Arthritis, Hypothyroidism, Sinus Problems, Thyroid Disease, Other. Denies: Blood Transfusion Reaction Anesthesia experience/problems:: nac Laterality Cases: Left: Arthroscopy Knee, Right: Total Hip Replacement, Bilateral: Carpal Tunnel Release Other Surgeries: Yes: Appendectomy, Cholecystectomy, Colonoscopy, Hysterectomy-Total, Other. No: Pacemaker Amputation: No Fractures: Yes (RIGHT ARM) - *Social History Smoking Status: Never smoker Alcohol Intake: never Substance Use Type: denies use *Occupational Status:: disabled Housing: snf Household Members: other *Travel in the last 8 weeks: None - Psychiatric History Pschychiatric History:: Reports:: Anxiety Family Hx:: Diabetes, Heart Attack, Hypertension Review of Systems - *Neurologic Reports abnormal walking, Reports weakness, Denies abnormal hearing Meds Home Medications Medication Instructions Recorded Confirmed Type hydrochlorothiazide 25 mg tablet 25 mg PO DAILYP PRN 02/16/20 11/19/20 History meloxicam 15 mg tablet 15 mg PO DAILY 02/16/20 11/18/20 History Aspirin [Aspirin 81mg EC Tab] 81 mg PO BID tablet. 10/31/20 11/18/20 Rx oxycodone 10 mg tablet 10 mg PO Q6H PRN #120 tab 11/07/20 11/18/20 Rx acetaminophen 500 mg tablet 500 mg PO Q6HP PRN 30 Days #90 tab 11/18/20 11/18/20 Rx cetirizine 10 mg capsule 10 mg PO DAILY #30 cap 11/18/20 11/18/20 Rx diltiazem HCl 180 mg 180 mg PO DAILY #30 cap 11/18/20 11/19/20 Rx capsule,extended release 24 hr levothyroxine 25 mcg tablet 25 mcg PO DAILY #30 tab 11/18/20 11/18/20 Rx nadolol 80 mg tablet 80 mg PO DAILY #30 tab 11/18/20 11/19/20 Rx sertraline 100 mg tablet 150 mg PO DAILY #45 tab 11/18/20 11/18/20 Rx Allergies Allergy/AdvReac Type Severity Reaction Status Date / Time pseudoephedrine Allergy Severe Difficulty Verified 11/18/20 15:47 Breathing azithromycin Allergy Unknown Unknown Verified 11/18/20 15:47 allergy reaction Cephalosporins Allergy Unknown Gastrointestinal Verified 11/18/20 15:47 Upset chocolate flavor Allergy Unknown Unknown Verified 11/18/20 15:47 allergy reaction clarithromycin Allergy Unknown Unknown Verified 11/18/20 15:47 allergy reaction erythromycin base Allergy Unknown Rash Verified 11/18/20 15:47 guaifenesin All
[2020-11-22 15:03] VITALS: BP 127/47; PULSE 57; RESP 20; TEMP 36.6; O2SAT 92
--- NOTE | 2020-11-22 16:15 | PC.NURSE ---
Addendum entered by Edelmira Sheldon RN 11/22/20 16:52: Pt more alert this shift, is able to tell me her name, , location, month and year. Original Note: No acute changes. Pt remains on room air. No c/o being SOA. Abdomen soft, non-tender w/ active BS in all quads. No BM this shift, is passing flatus. Continues to be incontinent of urine, purewick in place.Urine is clear and flakita in color. No edema present. (R) ankle dressed and covered w/ jesse wrap, is C/D/I. Bilat pulses palpable, cap refill <3 sec. Dressing to (R) hip is intact this time w/ shadowing noted at top of island dressing. R Buttock noted to be excoriated in appearance, not open @ this time. Pt was a mas assist up to chair this shift. Pt c/o dizziness and overall weakness w/ transfers, aware as she was @ bedside @ time of transfer. PT sat up for about 1.5 hours, tolerating well, she at her lunch up in chair. Pt was medicated per OCT for pain. Call brar is w/in reach. Pt lying in bed watching tv @ this time.
[2020-11-22 20:00] VITALS: BP 137/63; PULSE 64; RESP 20; TEMP 36.8; O2SAT 92
[2020-11-23 00:46] LABS: Vancomycin,Trough 21.7 ug/mL (5.0-10.0)
--- NOTE | 2020-11-23 03:22 | PC.NURSE ---
No acute changes overnight. Pt A&O x4, but has periods of confusion and believes she is still in the residential. Lungs are diminished, on room air. pt has c/o incision pain, pain meds given per mar with desired effects. Incision on right hip and RLE are CDI. Bowel sounds x4, abd soft and nontender. Adductor pillow in place while in bed. VSS, call light in reach, no concerns at this time.
[2020-11-23 04:00] VITALS: BP 130/48; PULSE 58; RESP 19; TEMP 36.8; O2SAT 91
[2020-11-23 05:00] VITALS: BMI 38.3
[2020-11-23 06:32] LABS: Chloride 102 mmol/L (98-107); Potassium 3.9 mmoL/L (3.5-5.1); Sodium 133 mmol/L (136-145)
[2020-11-23 06:35] LABS: Anion Gap 6.9 mEq/L (5-15); Blood Urea Nitrogen 11 mg/dl (7-17); Carbon Dioxide 28 mmol/L (22.0-30.0); Creatinine Clearance Estimated 75 mL/min (50-200); Estimated Glomerular Filt Rate 97 ml/min (>60); GFR (African American) 118 ML/MIN (>60)
[2020-11-23 06:36] LABS: Calcium 8.1 mg/dl (8.4-10.2); Glucose 100 mg/dl (74-100)
[2020-11-23 06:37] LABS: Basophils % 0.5 % (0.1-2.0); Eosinophils # 0.4 K/mm3 (0.0-0.4); Eosinophils % 6.4 % (0.1-12.0); Hematocrit 28.7 % (37.0-47.0); Hemoglobin 9.3 g/dL (12.2-16.2); Lymphocytes # 1.4 K/mm3 (0.7-4.5); Mean Corpuscular HGB Conc 32.4 g/dL (31.8-35.4); Mean Corpuscular Hemoglobin 26.7 pg (27.0-31.2); Mean Corpuscular Volume 82.5 fl (81-99); Monocytes # 0.4 K/mm3 (0.1-1.0); Monocytes % 6.8 % (1.7-9.3); Neutrophils # 4.3 K/mm3 (1.8-7.8); Neutrophils % 65.3 % (37.0-80.0); Platelet Count 245 K/mm3 (142-424); Red Blood Count 3.48 M/mm3 (4.20-5.40); Red Cell Distribution Width 15.8 % (11.5-17.5); White Blood Count 6.5 K/mm3 (4.8-10.8)
[2020-11-23 08:00] VITALS: BP 117/48; PULSE 57; RESP 19; TEMP 36.9; O2SAT 92
--- NOTE | 2020-11-23 08:16 | HMH.DCSUM ---
General - General Admission date:: 11/18/20 Discharge date: 11/23/20 HPI HPI: Patient is a 75-year-old white female, status post right total hip arthroplasty on October 25. She was discharged to a care home for physical therapy. During the course of her stay there she sustained an injury during physical therapy. On follow-up today with Dr. Mendoza she was found to have a superior dislocation of the femoral stem on the right side. A closed reduction was attempted. The plan for her is to go to the OR for an open reduction. Patient is noted to have some cellulitis along the incision line on the right. This extends onto the right lateral buttocks. There is warmth and redness. Que remain in the skin. Patient also has a pressure decubitus to the right heel which was mentioned in progress notes during her stay here in October. She has been nonambulatory and bedbound. The patient had had a UTI on her previous stay, this cultured E. coli. The patient was transfused in the previous postoperative period. Patient has multiple drug allergies. Hospital Course Hospital Course: Patient is a 75-year-old white female, status post right total hip arthroplasty on October 25. She was discharged to a care home for physical therapy. During the course of her stay there she sustained an injury during physical therapy. On follow-up today with Dr. Mendoza she was found to have a superior dislocation of the femoral stem on the right side. A closed reduction was attempted. The plan for her is to go to the OR for an open reduction. Patient is noted to have some cellulitis along the incision line on the right. This extends onto the right lateral buttocks. There is warmth and redness. [place] remain in the skin. Patient also has a pressure decubitus to the right heel which was mentioned in progress notes during her stay here in October. She has been nonambulatory and bedbound. 11/19/20 R total hip arthroplasty (VISHAL) revision During her stay H&H dropped to 7.5/23.7, after 2 units of packed red blood cells hemoglobin/hematocrit josé to 9.5/29.3 Ortho has seen and Rec: -- continue wound care for R heel -- offload B/L heels, turn patient frequently in bed; encourage ambulation and frequent motion -- WBAT RLE, out of bed with assistance -- PT to continue, posterior hip precautions. Limit hip flexion to 90 degrees due to constrained liner. -- hip abduction pillow while in bed -- ice pack R hip as needed; encouraged cryotherapy -- DVT prophy: continue aspirin + SCDs -- pain control, encourage IS -- continue IV antibiotics pending blood/urine cultures and intraoperative cultures; urine culture positive for E. coli, hip cultures no growth to date --> continuation of IV antibiotics at discharge per Dr. Carrillo, will f/u hip cultures -- care management consult for dispo planning; to d/c to SNF today, follow-up with me in the office 11/01/20 35-year-old female patient sitting up in bed resting quietly with eyes closed, awakens to verbal stimuli. She denies any chest pain or shortness of breath over the night, reports pain is at a tolerable level. Discussed discharge to [facility] she is in agreement to this. Again explained importance of wedge between legs, she verbalizes understanding and will maintain as ordered. PLAN: 1. We will discharge to [facility] 2. Follow-up with Ortho, appointment scheduled 3. Follow-up with PCP in 2 weeks 4. Continue Invanz and vancomycin IV x4 days Objective Vital signs: Temp Pulse Resp BP Pulse Ox 98.3 F 58 L 19 130/48 L 91 L 11/23/20 04:00 11/23/20 04:00 11/23/20 04:00 11/23/20 04:00 11/23/20 04:00 no acute distress, obese - *Routine HEENT Exam Head: Present: normocephalic Eye: Present: EOMI ENT: Present: mucous membranes moist - *Routine Neck Exam Present: supple, trachea midline. Absent: JVD, tracheal deviation - *Routine Respiratory Exam Present: CTA bila
--- NOTE | 2020-11-23 10:02 | HMH.ORTHPN ---
Subjective Date: 11/23/20 Time: 10:00 Principal diagnosis: R VISHAL dislocation Interval history: The patient is doing well this morning, pain controlled with medication. She is to be discharged to SNF today. No fevers or chills, no chest pain or shortness of breath. PN: Obj Ex Vital signs: Temp Pulse Resp BP Pulse Ox 98.4 F 57 L 19 117/48 L 92 L 11/23/20 08:00 11/23/20 08:00 11/23/20 08:00 11/23/20 08:00 11/23/20 08:00 - Constitutional no acute distress - Routine HEENT Exam Head: Present: normocephalic Eye: Present: EOMI ENT: Present: mucous membranes moist - Routine Neck Exam Present: trachea midline - Routine Respiratory Exam Absent: respiratory distress, wheezes - Routine Cardiovascular Exam Present: RRR - Routine Abdominal Exam Present: soft. Absent: tenderness - Routine Extremities Exam Comments: R hip dressing c/d/i, no strikethrough +DF/PF/EHL RLE SILT distally RLE in all distributions palpable pedal pulses RLE, foot pink/warm R calf soft, non-tender; negative Homans - Routine Skin Exam Present: warm - Routine Neurological Exam Present: alert, oriented X3, moving all extremities, normal tone, vision grossly intact, hearing grossly intact, normal speech. Absent: sensory deficit, motor deficit, altered mental status - Routine Psychiatric Exam Present: normal affect - Urinary Catheter Management Ag Cath placed during this visit: yes, but has since been removed by the nurse Urethral indwelling: No Insertion date: 11/18/20 Removal date: 11/20/20 Progress Note: A&P (1) Dislocation closed, hip Status: Acute (2) Cellulitis Status: Acute (3) Aftercare following hip joint replacement surgery Status: Acute (4) Anxiety Status: Chronic (5) Decubitus ulcer, heel Status: Acute (6) Hypothyroidism Status: Chronic (7) Multiple drug allergies Status: Chronic (8) Osteoarthritis Status: Chronic (9) Weakness Status: Chronic (10) Atrial fibrillation Status: Chronic (11) History of hip replacement Status: Acute (12) History of knee joint replacement Status: Chronic (13) UTI (urinary tract infection) Status: Acute (14) Depression Status: Acute Assessment and Plan for All Diagnoses:: 75yo F POD 4 s/p R VISHAL revision for irreducible dislocation; primary VISHAL 10/25/20 -- continue wound care for R heel -- offload B/L heels, turn patient frequently in bed; encourage ambulation and frequent motion -- WBAT RLE, out of bed with assistance -- PT to continue, posterior hip precautions. Limit hip flexion to 90 degrees due to constrained liner. -- hip abduction pillow while in bed -- ice pack R hip as needed; encouraged cryotherapy -- DVT prophy: continue aspirin + SCDs -- pain control, encourage IS -- continue IV antibiotics pending blood/urine cultures and intraoperative cultures; urine culture positive for E. coli, hip cultures no growth to date --> continuation of IV antibiotics at discharge per Dr. Carrillo, will f/u hip cultures -- care management consult for dispo planning; to d/c to SNF today, follow-up with me in the office 11/01/20
--- NOTE | 2020-11-23 10:49 | HMH.PHACONS ---
- Pharmacy Consult Date: 11/23/20 Time: 10:49 Referring provider: DR. DAVIS Reason for Consult:: VANCOMYCIN TROUGH LEVEL Allergies and ADEs:: Allergies Allergy/AdvReac Type Severity Reaction Status Date / Time pseudoephedrine Allergy Severe Difficulty Verified 11/18/20 15:47 Breathing azithromycin Allergy Unknown Unknown Verified 11/18/20 15:47 allergy reaction Cephalosporins Allergy Unknown Gastrointestinal Verified 11/18/20 15:47 Upset chocolate flavor Allergy Unknown Unknown Verified 11/18/20 15:47 allergy reaction clarithromycin Allergy Unknown Unknown Verified 11/18/20 15:47 allergy reaction erythromycin base Allergy Unknown Rash Verified 11/18/20 15:47 guaifenesin Allergy Unknown Unknown Verified 11/18/20 15:47 allergy reaction montelukast Allergy Unknown Numbness Verified 11/18/20 15:47 nabumetone [From Relafen] Allergy Unknown Rash Verified 11/18/20 15:47 nitrofurantoin Allergy Unknown Unknown Verified 11/18/20 15:47 allergy reaction NSAIDS (Non-Steroidal Allergy Unknown Unknown Verified 11/18/20 15:47 Anti-Inflamma allergy reaction Penicillins Allergy Unknown Unknown Verified 11/18/20 15:47 allergy reaction prednisone Allergy Unknown Unknown Verified 11/18/20 15:47 allergy reaction Sulfa (Sulfonamide Allergy Unknown Unknown Verified 11/18/20 15:47 Antibiotics) allergy reaction clindamycin AdvReac Unknown Gastrointestinal Verified 11/18/20 15:47 Upset codeine AdvReac Unknown Gastrointestinal Verified 11/18/20 15:47 Upset doxycycline AdvReac Unknown MAKES THE Verified 11/18/20 15:47 BACKS OF EYES HURT fexofenadine [From Sudha] AdvReac Unknown INFLAMED Verified 11/18/20 15:47 INSIDE OF NOSE fluticasone AdvReac Unknown HURTS IN Verified 11/18/20 15:47 [From Advair Diskus] THE INSIDE OF NOSE imipramine AdvReac Unknown BLADDER Verified 11/18/20 15:47 PAIN/SLOW DRAINAGE metoclopramide [From Reglan] AdvReac Unknown Gastrointestinal Verified 11/18/20 15:47 Upset mometasone furoate AdvReac Unknown Cough Verified 11/18/20 15:47 [From Nasonex] paroxetine [From Paxil] AdvReac Unknown Agitated Verified 11/18/20 15:47 salmeterol AdvReac Unknown HURTS IN Verified 11/18/20 15:47 [From Advair Diskus] THE INSIDE OF NOSE tramadol AdvReac Unknown Dizziness Verified 11/18/20 15:47 acetaminophen [From Lortab] AdvReac Gastrointestinal Verified 11/18/20 15:47 Upset hydrocodone [From Lortab] AdvReac Gastrointestinal Verified 11/18/20 15:47 Upset Home Medications:: Home Medications Medication Instructions Recorded Confirmed Type hydrochlorothiazide 25 mg tablet 25 mg PO DAILYP PRN 02/16/20 11/19/20 History meloxicam 15 mg tablet 15 mg PO DAILY 02/16/20 11/18/20 History Aspirin [Aspirin 81mg EC Tab] 81 mg PO BID tablet. 10/31/20 11/18/20 Rx oxycodone 10 mg tablet 10 mg PO Q6H PRN #120 tab 11/07/20 11/18/20 Rx acetaminophen 500 mg tablet 500 mg PO Q6HP PRN 30 Days #90 tab 11/18/20 11/18/20 Rx cetirizine 10 mg capsule 10 mg PO DAILY #30 cap 11/18/20 11/18/20 Rx diltiazem HCl 180 mg 180 mg PO DAILY #30 cap 11/18/20 11/19/20 Rx capsule,extended release 24 hr levothyroxine 25 mcg tablet 25 mcg PO DAILY #30 tab 11/18/20 11/18/20 Rx nadolol 80 mg tablet 80 mg PO DAILY #30 tab 11/18/20 11/19/20 Rx sertraline 100 mg tablet 150 mg PO DAILY #45 tab 11/18/20 11/18/20 Rx Oxycodone HCl/Acetaminophen 1 each PO Q4-6H PRN #30 tab 11/23/20 Rx [Percocet 7.5-325 mg Tablet] Height: 1.6 m Weight: 98.118 kg Laboratory Results:: Laboratory Results - last 24 hr 11/23/20 00:12: Vancomycin Trough 21.7 H 11/23/20 06:14: WBC 6.5, RBC 3.48 L, Hgb 9.3 L, Hct 28.7 L, MCV 82.5, MCH 26.7 L, MCHC 32.4, RDW 15.8, Plt Count 245, MPV 9.0, Neut % (Auto) 65.3, Lymph % (Auto) 21.0, [place] % (Auto) 6.8, Eos % (Auto) 6.4, Baso % (Auto) 0.5, Neut # (Auto) 4.3, Lymph # (Auto) 1
--- NOTE | 2020-11-23 16:29 | PC.NURSE ---
PT HAS BEEN RESTING IN BED T/O THE SHIFT. MEDICATED FOR PAIN NEEDED. PT NEEDS CONSTANT ENCOURAGEMENT TO TURN AND REPOSITION IN BED. DRESSING TO THE RIGHT HIP WAS CHANGED THIS SHIFT. PT HAD SOME MILD DRAINAGE NOTED. NOTIFIED BEFORE PT WAS DISCHARGED TO ASK IF A MORE ABSORBENT DRESSING COULD BE APPLIED AND SHE STATED YES. DRESSING IS 4X4/ABD PADS/TAPE. SWELLING/REDNESS NOTED AROUND INCISION. DRESSING TO THE RT HEEL C/D/I. HEELS WERE KEPT ELEVATED T/O THE SHIFT. ABDUCTOR PILLOW IN PLACE AND WAS SENT WITH AMBULANCE TO TAKE TO [facility]. PT HAD A TOTAL BATH BEFORE DISCHARGE. NYSTATIN CREAM AND POWDER APPLIED. VSS. PT WAS AN AMBULANCE TRANSPORT TO [facility].
== END 2020-11-23 15:30 | DRG 467 ==
LOC: 2ND 16:51
PROVIDERS: Nurse Practitioner Family; Admitting Provider Family Medicine; PCP Family Medicine; Referring Provider Orthopaedic Surgery; Visit Provider Family Medicine
PROC: 0SWRXJZ Revision of Synthetic Substitute in Right Hip Joint, Femoral Surface, External Approach (ICD-10-PCS; principal; 2020-11-18 17:00)
PROC: (CPT 27130; principal; 2020-11-19 08:00)
DX: T84.020A Dislocation of internal right hip prosthesis, initial encounter (principal); N39.0 Urinary tract infection, site not specified; D62 Acute posthemorrhagic anemia; L03.317 Cellulitis of buttock; L03.115 Cellulitis of right lower limb; Z91.81 History of falling; I10 Essential (primary) hypertension; I25.10 Atherosclerotic heart disease of native coronary artery without angina pectoris; K21.9 Gastro-esophageal reflux disease without esophagitis; E03.9 Hypothyroidism, unspecified; Z79.82 Long term (current) use of aspirin; Z88.1 Allergy status to other antibiotic agents; Z88.8 Allergy status to other drugs, medicaments and biological substances; Z91.018 Allergy to other foods; Z88.5 Allergy status to narcotic agent; Z88.0 Allergy status to penicillin; Z88.2 Allergy status to sulfonamides; F41.9 Anxiety disorder, unspecified; M19.90 Unspecified osteoarthritis, unspecified site; L89.619 Pressure ulcer of right heel, unspecified stage; R32 Unspecified urinary incontinence; F32.9 Major depressive disorder, single episode, unspecified; Z96.651 Presence of right artificial knee joint; Z74.01 Bed confinement status; W19.XXXA Unspecified fall, initial encounter; I48.0 Paroxysmal atrial fibrillation; M89.49 Other hypertrophic osteoarthropathy, multiple sites; B96.20 Unspecified Escherichia coli [E. coli] as the cause of diseases classified elsewhere
CPT/HCPCS: 27137; 27266; 36415; 36430; 36569; 71045; 71275; 73502; 80048; 80053; 80202; 81001; 84443; 85014; 85018; 85025; 85610; 86850; 87040; 87070; 87075; 87086; 87088; 87186; 87205; 87581; 87633; 87798; 93005; 93306; 97110; 97163; 97530; C1751; C1776; J0131; J1335; J2405; J3370; P9016; Q9967; U0003

== ENCOUNTER 2020-11-30 17:03 | Emergency (ER) | payer MEDICARE, MEDICAID, SELFPAY ==
[2020-11-30] VITALS (8 sets, daily range): BP systolic 125–137; BP diastolic 42–84; PULSE 54–87; RESP 16–18; TEMP 36.8; O2SAT 93–98; BMI 35.4
--- NOTE | 2020-11-30 17:28 | HMH.EDGENADL ---
ED Disposition Condition on Discharge: Good - Critical Care Critical Care Time: No <Emir Calvert - Last Filed: 11/30/20 20:19> <Denton Hope - Last Filed: 11/30/20 21:42> Clinical Impression: Wound dehiscence Disposition: Xfer SNF Instructions: DI for Wound Infection Additional Instructions: Prevena wound vac placed per orthopedic surgery. This should remain plugged-in unless patient is mobile or battery pack will continue our unit. If any issues call Ted the rep at [phone]. You should be contacted by orthopedic surgery to confirm follow-up. This does not require dressing changes or other maintenance per detention staff. Please have patient brought back to the emergency department if issues with wound VAC after talking to Ted, fever/chills, worsening pain to right hip, or other new concerning symptoms. Needs to be on antifungals until told to stop. Prescription provided. Prescriptions: Fluconazole 400 mg PO DAILY 13 Days #26 tab Prescription Printed Referrals: PCP,No [Non-Staff] - Attestation: On 11/30/20, the high probability of a clinically significant, sudden or life threatening deterioration of the following system(s) required my full and direct attention, intervention and personal management. The time I documented below is in addition to time spent performing reported procedures but includes the following listed in this critical care notation. Medical Decision Making - Medical Records Medical records reviewed: Yes: I reviewed the patient's medical records. - [place] Inquiry Pt receiving controlled substance: No <Emir Calvert - Last Filed: 11/30/20 20:19> - Lab Data Result diagrams: 11/30/20 20:05 11/30/20 20:05 <Denton Hope - Last Filed: 11/30/20 21:42> Vital Signs: 11/30/20 17:03 11/30/20 18:04 11/30/20 20:31 Temperature 98.3 F Temperature Source Oral Pulse Rate 54 L 54 L Pulse Rate [Right] 87 Respiratory Rate 18 16 Blood Pressure 134/55 L 134/49 L Blood Pressure [Right Arm] 136/46 L Blood Pressure Mean 66 Blood Pressure Mean [Right Arm] 76 Blood Pressure Source Automatic Cuff 02 Sat by Pulse Oximetry 98 93 L 95 Oxygen Delivery Method Room Air 11/30/20 20:45 Temperature Temperature Source Pulse Rate 56 L Pulse Rate [Right] Respiratory Rate 18 Blood Pressure 134/49 L Blood Pressure [Right Arm] Blood Pressure Mean Blood Pressure Mean [Right Arm] Blood Pressure Source 02 Sat by Pulse Oximetry 95 Oxygen Delivery Method - Lab Data Lab Results 11/30/20 20:05: WBC 11.3 H, RBC 4.07 L, Hgb 10.6 L, Hct 33.9 L, MCV 83.4, MCH 26.1 L, MCHC 31.3 L, RDW 16.1, Plt Count 276, MPV 8.7, Neut % (Auto) 71.1, Lymph % (Auto) 19.7, [place] % (Auto) 5.7, Eos % (Auto) 3.0, Baso % (Auto) 0.6, Neut # (Auto) 8.0 H, Lymph # (Auto) 2.2, [place] # (Auto) 0.6, Eos # (Auto) 0.3, Baso # (Auto) 0.1 11/30/20 20:05: Sodium 135 L, Potassium 3.2 L, Chloride 104, Carbon Dioxide 25, Anion Gap 9.2, BUN 21 H, Creatinine 0.80, Estimated Creat Clear 70, Estimated GFR 70, Est GFR ( Amer) 85, Glucose 109 H, Calcium 8.9, C-Reactive Protein 58.2 H Orders (Tests/Meds): ED MEDICATIONS Discontinued Medications Generic Name Dose Route Start Last Admin Trade Name Freq PRN Reason Stop Dose Admin Fluconazole 800 mg 11/30/20 20:29 11/30/20 20:44 Fluconazole 100mg Tablet PO 11/30/20 20:30 800 mg ONCE ONE Administration Protocol ORDERS Category Date Time Status XR hip RT 2-3V w/pelvis Stat Exams 11/30/20 18:50 Taken Complete Blood Count Auto Diff Stat Lab 11/30/20 20:05 Results Erythrocyte Sedimentation Rate Stat Lab 11/30/20 20:05 Results Medical Decision Narrative: Patient presents the emergency department due to concern for right hip wound dehiscence. Patient had a total hip replacement done that had to be revised secondary to dislocation. Orthopedic surgery aware of patient's presentation to the emergency departm
--- NOTE | 2020-11-30 17:32 | PC.NURSE ---
MD Mendoza at bedside
--- NOTE | 2020-11-30 18:17 | PC.NURSE ---
request to speak with stephan at [facility] about this pt.
--- NOTE | 2020-11-30 18:38 | HMH.ORTHOCON ---
*Admission Date: 11/30/20 *Reason for consult:: R hip incisional redness, drainage *History of present illness: 75-year-old female well-known to me, status post right total hip arthroplasty 10/25/2020, followed by revision to a constrained liner for dislocation on 11/18/2020. She was transferred to the ER this evening for persistent drainage and redness around her incision. Drainage has been described as bloody and serosanguineous, no purulence or foul odor. No increased erythema about the incision, but there has been some erythema even prior to her revision due to persistent pressure from lying in bed. There has been some superficial skin breakdown but nothing that appears infectious. No fevers or chills reported at the long-term, no nausea, vomiting or diarrhea. She is participating physical therapy but has not had the strength to walk yet. She reports having been out of bed and into a bedside chair. No significant complaints of pain at this time. [facility] History I have reviewed the patient's past medical history: Yes Medical History: Reports:: Aneurysm, Anxiety, Arrhythmia, Atrial Fibrillation, Gastroesophageal Reflux Disease(GERD), Heart Murmur, Hypertension, Kidney Stones, MRSA, Palpitations Denies:: Atherosclerotic Heart Disease, Cancer, Diabetes Mellitus Type 1, Diabetes Mellitus Type 2, Internal Pacemaker, Seizures *Have you ever received a pneumonia vaccine?: No *Have you received a flu vaccine this season?: Yes Other Medical History: Reports: Anemia, Arthritis, Hypothyroidism, Sinus Problems, Thyroid Disease, Other. Denies: Blood Transfusion Reaction Laterality Cases: Left: Arthroscopy Knee, Right: Total Hip Replacement, Bilateral: Carpal Tunnel Release Other Surgeries: Yes: Appendectomy, Cholecystectomy, Colonoscopy, Hysterectomy-Total, Other. No: Pacemaker Amputation: No Fractures: Yes (RIGHT ARM) - *Social History Smoking Status: Never smoker Alcohol Intake: never Substance Use Type: denies use *Occupational Status:: disabled Housing: long-term Household Members: other *Travel in the last 8 weeks: None - Psychiatric History Pschychiatric History:: Reports:: Anxiety Family Hx:: Diabetes, Heart Attack, Hypertension Review of Systems - Constitutional Reports headache(s), Reports weakness, Denies anorexia, Denies chills, Denies fever(s) - Eyes Denies blurry vision, Denies change in vision - ENT Denies abnormal hearing - *Cardiovascular Denies chest pain, Denies shortness of breath - *Respiratory Denies cough, Denies shortness of breath - *Gastrointestinal Reports loose stools, Denies abdominal pain - *Musculoskeletal Reports muscle weakness Meds Home Medications Medication Instructions Recorded Confirmed Type hydrochlorothiazide 25 mg tablet 25 mg PO DAILYP PRN 02/16/20 11/19/20 History acetaminophen 500 mg tablet 500 mg PO Q6HP PRN 30 Days #90 tab 11/18/20 11/18/20 Rx cetirizine 10 mg capsule 10 mg PO DAILY #30 cap 11/18/20 11/18/20 Rx diltiazem HCl 180 mg 180 mg PO DAILY #30 cap 11/18/20 11/19/20 Rx capsule,extended release 24 hr levothyroxine 25 mcg tablet 25 mcg PO DAILY #30 tab 11/18/20 11/18/20 Rx nadolol 80 mg tablet 80 mg PO DAILY #30 tab 11/18/20 11/19/20 Rx sertraline 100 mg tablet 150 mg PO DAILY #45 tab 11/18/20 11/18/20 Rx Aspirin [Aspirin 325mg Tab] 325 mg PO DAILY tab 11/23/20 Rx Ertapenem Sodium [Invanz 1gm Vial] 1 gm IV Q24H 4 Days #4 vial 11/23/20 Rx Nystatin [Nystatin Cr 100,000 0 gm TP QID tube 11/23/20 Rx Units/GM 30GM] Oxycodone HCl/Acetaminophen 1 each PO Q4-6H PRN #30 tab 11/23/20 Rx [Percocet 7.5-325 mg Tablet] Vancomycin HCl [Vancomycin 1000mg 1,750 mg IV Q24H 4 Days #8 vial 11/23/20 Rx vial] Fluconazole 400 mg PO DAILY 13 Days #26 tab 11/30/20 Rx Allergies Allergy/AdvReac Type Severity Reaction Status Date / Time pseudoephedrine Allergy Severe Difficulty Verified 11/18/20 15:47 Breathing azithromycin Allergy Unknown Unknown Verified 11/18
--- NOTE | 2020-11-30 18:50 | XR_ITS ---
PROCEDURE: XR HIP RT 2-3V W/PELVIS CLINICAL INDICATION: s/p R hip revision Pain COMPARISON: CR XR HIP RT 2-3V W/PELVIS from 11/18/2020 CR XR HIP RT 2-3V W/PELVIS from 11/19/2020 FINDINGS: Total right hip prosthesis is present which appears to be in good position. No evidence of dislocation or acute fracture. There is some soft tissue gas noted in the proximal laterally. Vascular calcification noted. IMPRESSION: Status post total right hip prosthesis placement. No evidence dislocation. There is some soft tissue gas in the proximal thigh laterally which may be residual from the previous surgery. The soft tissue gas has decreased in amount compared to the previous exam. Please correlate with clinical parameters as 1 cannot exclude the possibility of infection. Dictated by: Ghassan Beth MD 12/01/2020 05:36 Ghassan Beth MD in [place] 12/01/2020 05:36
[2020-11-30 20:19] LABS: Basophils # 0.1 K/mm3 (0-0.2); Basophils % 0.6 % (0.1-2.0); Eosinophils # 0.3 K/mm3 (0.0-0.4); Hematocrit 33.9 % (37.0-47.0); Hemoglobin 10.6 g/dL (12.2-16.2); Lymphocytes # 2.2 K/mm3 (0.7-4.5); Lymphocytes % 19.7 % (10-50); Mean Corpuscular HGB Conc 31.3 g/dL (31.8-35.4); Mean Corpuscular Hemoglobin 26.1 pg (27.0-31.2); Mean Corpuscular Volume 83.4 fl (81-99); Mean Platelet Volume 8.7 fl (7.4-10.4); Monocytes # 0.6 K/mm3 (0.1-1.0); Monocytes % 5.7 % (1.7-9.3); Neutrophils % 71.1 % (37.0-80.0); Platelet Count 276 K/mm3 (142-424); Red Blood Count 4.07 M/mm3 (4.20-5.40); Red Cell Distribution Width 16.1 % (11.5-17.5); White Blood Count 11.3 K/mm3 (4.8-10.8)
[2020-11-30 20:22] LABS: Chloride 104 mmol/L (98-107)
[2020-11-30 20:23] LABS: Potassium 3.2 mmoL/L (3.5-5.1); Sodium 135 mmol/L (136-145)
[2020-11-30 20:25] LABS: Blood Urea Nitrogen 21 mg/dl (7-17); Creatinine Clearance Estimated 70 mL/min (50-200); Estimated Glomerular Filt Rate 70 ml/min (>60); GFR (African American) 85 ML/MIN (>60)
[2020-11-30 20:26] LABS: Anion Gap 9.2 mEq/L (5-15); Calcium 8.9 mg/dl (8.4-10.2); Carbon Dioxide 25 mmol/L (22.0-30.0); Glucose 109 mg/dl (74-100)
[2020-11-30 20:31] LABS: C-Reactive Protein 58.2 mg/L (0-4)
[2020-11-30 22:41] LABS: Erythrocyte Sedimentation Rate 44 mm/hr (0-30)
== END 2020-11-30 23:02 ==
PROVIDERS: Emergency Provider Emergency Medicine; PCP Family Medicine
DX: T81.31XA Disruption of external operation (surgical) wound, not elsewhere classified, initial encounter (principal); Z96.641 Presence of right artificial hip joint; I48.91 Unspecified atrial fibrillation; K21.9 Gastro-esophageal reflux disease without esophagitis; I10 Essential (primary) hypertension; F41.9 Anxiety disorder, unspecified; E03.9 Hypothyroidism, unspecified; Z88.0 Allergy status to penicillin; Z88.2 Allergy status to sulfonamides; Z88.5 Allergy status to narcotic agent; Z88.8 Allergy status to other drugs, medicaments and biological substances
CPT/HCPCS: 73502; 80048; 85025; 85651; 86140; 99282

== ENCOUNTER → 2020-12-08 13:56 | Outpatient (CLI) | payer MEDICARE, MEDICAID, SELFPAY ==
--- NOTE | 2020-12-08 14:00 | XR_ITS ---
PROCEDURE: XR HIP RT 2-3V W/PELVIS CLINICAL INDICATION: s/p RT hip revision COMPARISON: CT ABDPELW/O CT ABD PELVIS W/O CONTRAST from 01/28/2014 CR XR HIP RT 2-3V W/PELVIS from 11/30/2020 FINDINGS: S/p total hip replacement. Good alignment. No evidence of orthopedic complication. There is generalized vascular calcification and mild osteoarthritic changes of the left hip. Sclerotic density overlies the left ilium laterally nonspecific as previously described IMPRESSION: No acute findings. S/p total hip replacement. Good alignment. No evidence of orthopedic complication. Dictated by: Ghassan Beth MD 12/08/2020 17:44 Ghassan Beth MD in [place] 12/08/2020 17:44
== END ==
PROVIDERS: PCP Family Medicine; Visit Provider Orthopaedic Surgery
DX: T84.028A Dislocation of other internal joint prosthesis, initial encounter (principal); Z09 Encounter for follow-up examination after completed treatment for conditions other than malignant neoplasm; Z96.649 Presence of unspecified artificial hip joint
CPT/HCPCS: 73502

== ENCOUNTER 2020-12-19 17:27 | Observation (INO) | payer MEDICARE, MEDICAID, SELFPAY ==
--- NOTE | 2020-12-19 17:47 | P.PCN_ITS ---
[facility] Procedure Note Procedure Note:: Date of Procedure: December 19, 2020 Pre-procedure diagnosis: persistent wound drainage s/p R VISHAL revision, r/o periprosthetic joint infection Post-procedure diagnosis: same Procedure: R hip aspiration Performed by: Yuki Zavala MD Commercial Energy Auditor/s: none Anesthesia: none Estimated Blood Loss: none Procedure Note: The patient presented to the radiology department and changed into a gown, exposing the affected R hip. Consent was reviewed and signed by both myself and the patient, all questions were answered. The patient was placed supine on the fluoroscopy table and the R hip exposed. The anterior groin/hip and proximal thigh were prepped with chlorhexidine. Timeout was performed. Next, the fluoro machine was brought in over the patient?s hip and a picture taken to confirm adequate visualization of the joint. I donned a pair of sterile surgical gloves; the remainder of the procedure was performed in a sterile fashion. An 18G spinal needle was held over the hip to approximate my desired entry point on the skin. Once this was established, a 25G needle was used to infiltrate injection site and estimated needle track with 5cc 1% lidocaine w/o epinephrine. Once the injection site was anesthetized, the spinal needle was advanced through the same puncture site and deeper towards the hip joint. Using fluoro, it was confirmed that the needle was advanced until it was at the level of the femoral prosthesis neck. The stylus was removed from the spinal needle and a 20cc syringe attached to the needle. The plunger of the syringe was drawn back but no fluid returned. The needle was repositioned several times, at the level of the head, neck and greater trochanter, but no fluid obtained. The procedure was aborted and the decision made to proceed with ultrasound of the R hip tomorrow with aspiration of fluid collection if seen. The spinal needle was removed and a band-aid was placed over the aspiration site. Specimens: none Condition/Disposition: good / admit to surgical floor Complications: none
--- NOTE | 2020-12-19 17:47 | HMH.HP ---
*Admission Date: 12/19/20 *Chief complaint: persistent drainage R VISHAL incision *History of present illness: 75yo F who presented to my office this afternoon for postoperative follow-up status post right total hip arthroplasty revision performed 11/19/20. This was preceded by a primary VISHAL on 10/25/2020 that dislocated at the custodial postoperatively. She was revised to a constrained liner. During the first week after revision, she had a superficial wound dehiscence with wound drainage, which was treated with a incisional wound VAC. She has had persistent drainage despite continued use of the VAC. No fevers or chills have been reported at the custodial. Her most recent set of labs show a white blood cell count of 8.3, hemoglobin 10.8, ESR 36, CRP 82.7 mg/L. Intraoperative cultures were taken during the revision, of both the superficial seroma and deep hematoma seen time; both were negative for bacterial growth. Deep tissue culture was positive for yeast, but the specimen was discarded prior to requesting speciation. I saw her for wound VAC placement in the ER on 11/30/2020; at that time I requested initiation of fluconazole, but this was never done. She currently does not report significant pain in the hip but has been unable to ambulate. She has yet to ambulate since prior to her initial surgery in October. 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 She currently reports being unable to ambulate due to nausea and weakness. She has had skin breakdown in the folds of her pannus in the skin around her incision has been of poor quality as well. Right heel ulcer has developed, in addition to a sacral decubitus ulcer. 10/25/20 primary R VISHAL; [employer] (synergy stem, redapt cup, OR3O bearing) 11/12/20 fall [facility]; unreported to my office, no XR 11/18/20 routine post-operative follow-up, XR reveals R VISHAL dislocation. Closed reduction attempted, unsuccessful. 11/19/20 R VISHAL revision; [employer] (kept stem/cup; swapped OR3O for constrained liner) 11/30/20 presented to ER with serous wound drainage and superficial dehiscence; Prevena incisional wound vac applied by myself. 12/08/20 new prevena applied The patient's wound continues to drain 1 month after her total hip revision and I am now very concerned she may be infected. If the wound is continuing to during this far out from surgery washout may be indicated, and very likely two-stage revision. Prior to considering any further surgical intervention, however, I would like to confirm the diagnosis of periprosthetic joint infection as well as try to isolate an organism prior to initiation of antibiotic therapy. The patient was taken to radiology today, where the right hip was aspirated using sterile technique. I was unable to aspirate any fluid from the hip. This was done with an 18-gauge spinal needle placed directly at level of the neck of the prosthesis, intracapsular. No fluid was returned. I will admit the patient to the hospital overnight and have radiology do an ultrasound-guided aspiration in the morning. After that broad-spectrum antibiotics will be started and she will be discharged back to the assisted facility. I have spoken with a colleague in [place], Dr. Schmid, who is a revision arthroplasty specialist and has agreed to evaluate the patient. We will be referring the patient to Dr. Schmid on an outpatient basis and transferring her records to him; once culture results are available they will be forwarded as well. This has also been communicated to Dr. Santillan. [facility] History I have reviewed the patient's past medical history: Yes Medical History: Reports:: Aneurysm, Anxiety, Arrhythmia, Atrial Fibrillation, Gastroesophageal Reflux Disease(GERD), Heart Murmur, Hypertension, Kidney Stones, MRSA, Palpitations Denies:: Atherosclerotic Heart Disease, Cancer, Diabetes Mellitus Type 1, Diabetes Mellitus
--- NOTE | 2020-12-19 17:54 | XR_ITS ---
PROCEDURE INFORMATION: Exam: XR Right Hip Exam date and time: 12/19/2020 5:54 PM Age: 75 years old Clinical indication: Swelling or effusion of joint; Prior surgery; Surgery date: 1-6 months; Surgery type: Right joshua; Additional info: R joshua; R/O infection TECHNIQUE: Imaging protocol: XR Right hip. Views: 2 or 3 views hip with pelvis when performed. COMPARISON: CR XR HIP RT 2-3V W/PELVIS 12/08/2020 2:12 PM FINDINGS: Bones/joints: There is a unipolar right hip arthroplasty in position. No periprosthetic fracture or dislocation is seen. The visualized bony pelvic structures are grossly intact. Soft tissues: Unremarkable. IMPRESSION: Unipolar right hip arthroplasty in position without an acute fracture or dislocation identified.
[2020-12-19 18:02] VITALS: BP 140/69; PULSE 57; RESP 17; TEMP 36.6; O2SAT 96; BMI 31.4
[2020-12-19 18:42] LABS: Adenovirus,PCR Not Detected (NotDetected); Bordetella Pertussis Not Detected (NotDetected); Chlamydophila Pneumoniae, PCR Not Detected (NotDetected); Coronavirus 19, PCR Not Detected (NotDetected); Coronavirus 229E Not Detected (NotDetected); Coronavirus NL63 Not Detected (NotDetected); Coronavirus OC43 Not Detected (NotDetected); Coronovirus HKU1,PCR Not Detected (NotDetected); Human Metapneumovirus Not Detected (NotDetected); Influenza A, PCR Not Detected (NotDetected); Influenza AH1, 2009 Not Detected (NotDetected); Influenza AH1, PCR Not Detected (NotDetected); Influenza AH3,PCR Not Detected (NotDetected); Influenza B, PCR Not Detected (NotDetected); Mycoplasma Pneumoniae, PCR Not Detected (NotDetected); Parainfluenza 1, PCR Not Detected (NotDetected); Parainfluenza 2, PCR Not Detected (NotDetected); Parainfluenza 3, PCR Not Detected (NotDetected); Parainfluenza 4, PCR Not Detected (NotDetected); Respiratory Syncytial Virus Not Detected (NotDetected); Rhinovirus/Enterovirus Not Detected (NotDetected)
[2020-12-19 18:45] LABS: Basophils # 0.1 K/mm3 (0-0.2); Basophils % 0.5 % (0.1-2.0); Eosinophils # 0.4 K/mm3 (0.0-0.4); Eosinophils % 2.8 % (0.1-12.0); Hematocrit 35.2 % (37.0-47.0); Hemoglobin 11.1 g/dL (12.2-16.2); Lymphocytes # 1.9 K/mm3 (0.7-4.5); Lymphocytes % 14.7 % (10-50); Mean Corpuscular HGB Conc 31.5 g/dL (31.8-35.4); Mean Corpuscular Hemoglobin 24.9 pg (27.0-31.2); Mean Platelet Volume 8.6 fl (7.4-10.4); Monocytes # 0.6 K/mm3 (0.1-1.0); Monocytes % 4.9 % (1.7-9.3); Neutrophils # 9.8 K/mm3 (1.8-7.8); Platelet Count 329 K/mm3 (142-424); Red Blood Count 4.45 M/mm3 (4.20-5.40); Red Cell Distribution Width 16.1 % (11.5-17.5); White Blood Count 12.8 K/mm3 (4.8-10.8)
[2020-12-19 18:52] LABS: Alanine Aminotransferase 8 U/L (12-78); Albumin Level 2.9 g/dl (3.5-5.0); Albumin/Globulin Ratio 0.9 (1.1-1.8); Alkaline Phosphatase 138 U/L (38-126); Anion Gap 11.5 mEq/L (5-15); Aspartate Amino Transferase 23 U/L (14-36); Bilirubin,Total 0.5 mg/dl (0.2-1.3); Blood Urea Nitrogen 14 mg/dl (7-17); Carbon Dioxide 23 mmol/L (22.0-30.0); Chloride 102 mmol/L (98-107); Creatinine Clearance Estimated 62 mL/min (50-200); Estimated Glomerular Filt Rate 97 ml/min (>60); GFR (African American) 118 ML/MIN (>60); Globulin 3.3 g/dL (1.3-3.2); Glucose 125 mg/dl (74-100); Lactic Acid 0.8 mmol/L (0.7-2.1); Magnesium 1.4 mg/dl (1.6-2.3); Phosphorous 3.4 mg/dl (2.5-4.5); Potassium 3.5 mmoL/L (3.5-5.1); Sodium 133 mmol/L (136-145); Total Protein,Serum 6.2 g/dl (6.3-8.2)
[2020-12-19 18:57] LABS: C-Reactive Protein 56.3 mg/L (0-4)
[2020-12-19 18:58] LABS: Hemoglobin A1C 5.3 % (4.0-6.0)
[2020-12-19 19:20] LABS: Erythrocyte Sedimentation Rate 56 mm/hr (0-30)
[2020-12-19 20:00] VITALS: BP 129/66; PULSE 56; RESP 24; TEMP 36.8; O2SAT 94
[2020-12-19 20:50] LABS: POC Glucose,Bedside 98 (70-110)
--- NOTE | 2020-12-20 | US_ITS ---
PROCEDURE: US EXTREMITY RT LIMITED CLINICAL INDICATION: R VISHAL fluid collection COMPARISON: No exams were available for comparison FINDINGS: There is a focal fluid collection noted adjacent to the right hip prosthesis measuring approximately 10.7 times 2.8 centimeters. Heterogeneous echogenicity is noted within the joint space. After explanation of the risks and benefits to the patient. A 20 gauge spinal needle was utilized to aspirate 2 mL of slightly blood stained fluid from the collection in conjunction with Dr. Zavala. Patient tolerated the procedure well. No immediate complications. IMPRESSION: FNA of the soft tissue fluid collection adjacent to the surgical site. Dictated by: Radha Novak 12/20/2020 15:36 Radha Novak in [place] 12/20/2020 15:36 CORRINE
--- NOTE | 2020-12-20 03:46 | PC.NURSE ---
pt stated minimal discomfort and prn given. pt sleeping at this time. turned q2h. iv infiltrated and pt refused to have new iv placed. stated that this last iv was the most painful yet. IS given and instructed on use and frequency. vss. call light in reach. pt is alert and oriented. incontinent. bm this shift. will continue to monitor
[2020-12-20 04:00] VITALS: BP 130/60; PULSE 54; RESP 24; TEMP 36.8; O2SAT 95
[2020-12-20 05:20] VITALS: BMI 31.2
[2020-12-20 06:13] LABS: POC Glucose,Bedside 93 (70-110)
--- NOTE | 2020-12-20 07:25 | HMH.PHAVTE ---
[facility] Pharmacy VTE Monitoring - Patient Demographics Admission date: 12/19/20 Report Date: 12/20/20 Time: 07:25 Allergies/Adverse Reactions: Patient Allergies pseudoephedrine Allergy (Severe, Verified 12/19/20 15:02) Difficulty Breathing azithromycin Allergy (Unknown, Verified 12/19/20 15:02) Unknown allergy reaction Cephalosporins Allergy (Unknown, Verified 12/19/20 15:02) Gastrointestinal Upset chocolate flavor Allergy (Unknown, Verified 12/19/20 15:02) Unknown allergy reaction clarithromycin Allergy (Unknown, Verified 12/19/20 15:02) Unknown allergy reaction erythromycin base Allergy (Unknown, Verified 12/19/20 15:02) Rash guaifenesin Allergy (Unknown, Verified 12/19/20 15:02) Unknown allergy reaction montelukast Allergy (Unknown, Verified 12/19/20 15:02) Numbness nabumetone [From Relafen] Allergy (Unknown, Verified 12/19/20 15:02) Rash nitrofurantoin Allergy (Unknown, Verified 12/19/20 15:02) Unknown allergy reaction NSAIDS (Non-Steroidal Anti-Inflamma Allergy (Unknown, Verified 12/19/20 15:02) Unknown allergy reaction Penicillins Allergy (Unknown, Verified 12/19/20 15:02) Unknown allergy reaction prednisone Allergy (Unknown, Verified 12/19/20 15:02) Unknown allergy reaction Sulfa (Sulfonamide Antibiotics) Allergy (Unknown, Verified 12/19/20 15:02) Unknown allergy reaction clindamycin Adverse Reaction (Unknown, Verified 12/19/20 15:02) Gastrointestinal Upset codeine Adverse Reaction (Unknown, Verified 12/19/20 15:02) Gastrointestinal Upset doxycycline Adverse Reaction (Unknown, Verified 12/19/20 15:02) MAKES THE BACKS OF EYES HURT fexofenadine [From Sudha] Adverse Reaction (Unknown, Verified 12/19/20 15:02) INFLAMED INSIDE OF NOSE fluticasone [From Advair Diskus] Adverse Reaction (Unknown, Verified 12/19/20 15:02) HURTS IN THE INSIDE OF NOSE imipramine Adverse Reaction (Unknown, Verified 12/19/20 15:02) BLADDER PAIN/SLOW DRAINAGE metoclopramide [From Reglan] Adverse Reaction (Unknown, Verified 12/19/20 15:02) Gastrointestinal Upset mometasone furoate [From Nasonex] Adverse Reaction (Unknown, Verified 12/19/20 15:02) Cough paroxetine [From Paxil] Adverse Reaction (Unknown, Verified 12/19/20 15:02) Agitated salmeterol [From Advair Diskus] Adverse Reaction (Unknown, Verified 12/19/20 15:02) HURTS IN THE INSIDE OF NOSE tramadol Adverse Reaction (Unknown, Verified 12/19/20 15:02) Dizziness acetaminophen [From Lortab] Adverse Reaction (Verified 12/19/20 15:02) Gastrointestinal Upset hydrocodone [From Lortab] Adverse Reaction (Verified 12/19/20 15:02) Gastrointestinal Upset Height: 1.6 m Weight: 80.059 kg Patient Problems: Current Active Problems Multiple drug allergies (Chronic) Decubitus ulcer, heel (Acute) History of revision of total hip arthroplasty (Acute) Postoperative wound dehiscence (Acute) - VTE Risk Labs: VTE Related Lab Results Hgb 11.1 g/dL (12.2-16.2) L 12/19/20 18:30 Hct 35.2 % (37.0-47.0) L 12/19/20 18:30 Plt Count 329 K/mm3 (142-424) 12/19/20 18:30 BUN 14 mg/dl (7-17) 12/19/20 18:30 Creatinine 0.60 mg/dl (0.52-1.04) 12/19/20 18:30 Estimated Creat Clear 62 mL/min (50-200) 12/19/20 18:30 VTE Score: 6 VTE Risk Level: Moderate Risk - Prophylaxis VTE Prophylaxis Ordered?: Yes Types of VTE Prophylaxis: IPCS Thigh High Location of Applied Device: Bilateral Lower Extremeties
--- NOTE | 2020-12-20 07:39 | XR_ITS ---
PROCEDURE: XR CHEST PORTABLE PICC PLAC CLINICAL HISTORY: Confirm PICC line placement COMPARISON: CR XR CHEST PORTABLE PICC PLAC from 10/28/2020 CR XR CHEST PORTABLE from 11/18/2020 CR XR CHEST PORTABLE PICC PLAC from 11/21/[address] ANGIO CHEST from 11/21/2020 FINDINGS: Left subclavian PICC line with its tip overlying the SVC is noted. No focal consolidation, pleural effusions or pneumothorax. The cardiac size and central pulmonary vasculature within normal limits. Tortuous descending thoracic aorta is noted. Degenerative changes of the visualized thoracic spine. IMPRESSION: No acute abnormality. Dictated by: Radha Novak 12/20/2020 14:05 Radha Novak in [place] 12/20/2020 14:05
[2020-12-20 08:00] VITALS: BP 149/66; PULSE 55; RESP 19; TEMP 36.5; O2SAT 94
--- NOTE | 2020-12-20 11:13 | HMH.ORTHPN ---
Subjective Date: 12/20/20 Time: 07:30 Principal diagnosis: drainage R VISHAL incision Interval history: The patient is well this morning though her IV infiltrated overnight. That was placed under ultrasound guidance; the patient has issues with difficult access. Repeat IV was refused by the patient. She reports nausea this morning and says she believes she has thrush; her throat is sore. Otherwise no new complaints. PN: Obj Ex Vital signs: Temp Pulse Resp BP Pulse Ox 97.7 F 55 L 19 149/66 H 94 L 12/20/20 08:00 12/20/20 08:00 12/20/20 08:00 12/20/20 08:00 12/20/20 08:00 - Constitutional no acute distress - Routine HEENT Exam Head: Present: normocephalic Eye: Present: EOMI ENT: Present: mucous membranes moist - Routine Neck Exam Present: supple - Routine Respiratory Exam Absent: respiratory distress - Routine Cardiovascular Exam Present: RRR - Routine Abdominal Exam Present: soft. Absent: tenderness - Routine Extremities Exam Comments: Awake, alert, oriented, in no obvious distress the patient presents via wheelchair with her son R hip surgical incision closed, 2-3 pinpoint areas of drainage c/w sinus tracts periwound skin irritation/pink; no cellulitis or clinical suspicion for infection. R hip ROM 0-90 degrees without pain +DF/PF/EHL RLE SILT all distributions L3-S1, normal reflexes RLE Palpable pedal pulses, warm well-perfused extremity RLE R heel with dark red/black eschar, smaller in size than previous exam stage 1-2 decub sacrum - Routine Skin Exam Present: warm - Routine Neurological Exam Present: alert, oriented X3 Progress Note: A&P (1) Decubitus ulcer, heel Status: Acute (2) History of revision of total hip arthroplasty Status: Acute (3) Postoperative wound dehiscence Status: Acute (4) Multiple drug allergies Status: Chronic Assessment and Plan for All Diagnoses:: 75yo F with persistently draining wound s/p R VISHAL revision 11/19/20; preceded by primary VISHAL 10/25/20 complicated by post-operative dislocation. -- PICC line ordered, straight cath for urine cx -- continue accuchecks + SSI -- SCDs BLE -- encourage IS 10x/hr while awake -- WBC mildly elevated; ESR mildly elevated, CRP significantly elevated -- offload B/L heels at all times -- wound care R heel -- keep R VISHAL incision covered with ABD + paper tape, change as needed -- restart home meds NO antibiotics until after hip aspirated -- continue percocet for pain control, IV PRN for breakthrough -- Dr. Santillan/Lucinda on consult for medical management -- to radiology for ultrasound of R hip this morning and aspiration of fluid collection if present
--- NOTE | 2020-12-20 12:11 | PC.NURSE ---
spoke with rom burnett this morning regarding PICC line placement, she stated it would be this afternoon.
--- NOTE | 2020-12-20 13:01 | CT_ITS ---
PROCEDURE: CT HIP RT WO/W CON CLINICAL HISTORY: fluid collection R VISHAL COMPARISON: CT CT HIP RT WO CON from 10/20/2020 TECHNIQUE: Axial images obtained with sagittal and coronal reformats. All CT scans at the facility use one or more dose reduction, viz: automated exposure control, ma/kV adjustment per patient size (including targeted exams where dose is matched to indication, i.e. head), or iterative reconstruction technique. FINDINGS: Total right hip arthroplasty is noted. There is beam hardening artifact from the right hip prosthesis limits evaluation. There is a focal collection noted in the subcutaneous soft tissues of adjacent to the right hip measuring approximately 4.8 x 2.6 x 16 cm This is incompletely evaluated on the current study. On the background of extensive beam hardening artifact it is difficult to evaluate for joint effusion. Minor subcutaneous soft tissue stranding, likely secondary to recent surgery. The intrapelvic structures are unremarkable. Vascular calcification is noted. IMPRESSION: Focal collection in the right subcutaneous soft tissues measuring 4.8 x 2.6 x 16 centimeters. Beam hardening artifact limits evaluation for extension into the joint space. Dictated by: Radha Novak 12/20/2020 14:42 Radha Novak in [place] 12/20/2020 14:42
--- NOTE | 2020-12-20 13:03 | P.PCN_ITS ---
[facility] Procedure Note Procedure Note:: Date of Procedure: December 20, 2020 Pre-procedure diagnosis: persistent wound drainage s/p R VISHAL revision, r/o periprosthetic joint infection Post-procedure diagnosis: same Procedure: ultrasound-guided aspiration fluid collection R hip Performed by: Yuki Zavala MD Book Jacket Cover Machine Operator/s: none Anesthesia: none Estimated Blood Loss: none Procedure Note: The patient presented to the radiology department and changed into a gown, exposing the affected R hip. Consent was reviewed and signed by the patient, all questions were answered. The patient was placed into left lateral decubitus position and ultrasound examination of the R hip performed. A 6-7cm fluid collection was seen in the subcutaneous tissues around 7cm deep to the incision. No deep fluid collection or collection adjacent to or communicating with the hip or prosthesis was seen. The lateral R hip/buttock was prepped with chlorhexidine and betadine. Timeout was performed. Next, the ultrasound was used to visualize the fluid collection and an 18G spinal needle inserted using sterild technique until it was seen within the fluid collection. A 20cc syringe was attached and aspirated, with return of 2cc bloody fluid. The needle was repositioned but no further fluid was aspirated. No purulence seen; the fluid was bloody with a slightly cloudy tint, no foul odor. The needle was withdrawn and band-aid was placed over the aspiration site. The patient tolerated the procedure well. Specimens: fluid aspirate R hip, sent for culture Condition/Disposition: good / return to surgical floor Complications: none
--- NOTE | 2020-12-20 13:55 | HMH.PHAINT ---
MEDICATION RECONCILIATION COMPLETED ON PATIENT USING MAR FROM [facility]. -ELIO MARTINEZ, FARHADD
[2020-12-20 15:33] LABS: Microscopic, Urine URINE MICROSCOPIC (MICROSCOPIC)
[2020-12-20 15:36] LABS: Appearance,Urine CLEAR (Clear); Blood, Urine Negative (Negative); Color,Urine YELLOW (Yellow); Glucose,Urine (UA) Negative (Negative); Ketones,Urine TRACE (Negative); Leukocyte Esterase,Urine TRACE (Negative); Nitrate,Urine Negative (Negative); Protein,Urine TRACE (Negative); Specific Gravity, Urine 1.025 (1.005-1.030); Urobilinogen,Urine 0.2 EU/dl (0.2)
[2020-12-20 15:45] LABS: Bilirubin,Urine 2+ (Negative)
[2020-12-20 15:46] LABS: Bacteria,Urine 1+ /lpf; Mucus,Urine 1+ /lpf; RBC,Urine Occasional #/hpf (0-3); Squamous Epithelial Cell,Urine Occasional #/hpf (0-5)
[2020-12-20 15:58] VITALS: BP 154/60; PULSE 61; RESP 19; TEMP 36.8; O2SAT 96
[2020-12-20 16:08] LABS: POC Glucose,Bedside 85 (70-110)
--- NOTE | 2020-12-20 17:16 | PC.NURSE ---
NO C/O PAIN OR NAUSEA THIS SHIFT. PT TURNED Q2HR WHEN SHE ALLOWS STAFF. HEELS ARE FLOATED OFF BED. PICC TO BEKA IS PATENT. NS INFUSING AT 50ML/HR PER ORDER. CALL LIGHT WITHIN REACH. VSS.
--- NOTE | 2020-12-20 17:39 | HMH.ACPN2 ---
Internal Medicine - PN: Subj *Date: 12/20/20 *Time: 17:39 Interval history: Note serves as medical consult to assist in comanagement of patient. Medicine consulted by orthopedic surgery to assist with management of chronic conditions, infectious conditions, and nonsurgical complaints. On assessment this morning, Ms. Bliss is pleasant and appeared comfortable. Continues to have complaint of oral pain and sore throat. Voice is hoarse on interview and this has been going on for several weeks per her report. She reports previously being treated for thrush at her assisted but not having resolution of her sore throat or mouth tenderness. Is currently n.p.o. awaiting ultrasound-guided aspiration of her right hip. Patient is afebrile, denies chest pain or shortness of breath. Continues to have right hip pain. No diarrhea or vomiting. Exam Vital signs and Labs for Last 24 Hours: Temp Pulse Resp BP Pulse Ox 98.2 F 61 19 154/60 H 96 12/20/20 15:58 12/20/20 15:58 12/20/20 15:58 12/20/20 15:58 12/20/20 15:58 Laboratory Results - last 24 hr 12/19/20 18:30: WBC 12.8 H, RBC 4.45, Hgb 11.1 L, Hct 35.2 L, MCV 79.0 L, MCH 24.9 L, MCHC 31.5 L, RDW 16.1, Plt Count 329, MPV 8.6, Neut % (Auto) 77.0, Lymph % (Auto) 14.7, [place] % (Auto) 4.9, Eos % (Auto) 2.8, Baso % (Auto) 0.5, Neut # (Auto) 9.8 H, Lymph # (Auto) 1.9, [place] # (Auto) 0.6, Eos # (Auto) 0.4, Baso # (Auto) 0.1 12/19/20 18:30: Sodium 133 L, Potassium 3.5, Chloride 102, Carbon Dioxide 23, Anion Gap 11.5, BUN 14, Creatinine 0.60, Estimated Creat Clear 62, Estimated GFR 97, Est GFR ( Amer) 118, Glucose 125 H, Calcium 9.0, Phosphorus 3.4, Magnesium 1.4 L, Total Bilirubin 0.5, AST 23, ALT 8 L, Alkaline Phosphatase 138 H, C-Reactive Protein 56.3 H, Total Protein 6.2 L D, Albumin 2.9 L, Globulin 3.3 H, Albumin/Globulin Ratio 0.9 L 12/19/20 18:30: Lactate 0.8 12/19/20 18:30: ESR 56 H 12/19/20 18:30: Hemoglobin A1c 5.3 12/19/20 18:30: Chlamy pneumoniae PCR Not detected, Adenovirus (PCR) Not detected, B. pertussis DNA (PCR) Not detected, Coronavirus OC43 (PCR) Not detected, Coronavirus HKU1 (PCR) Not detected, Coronavirus 229E (PCR) Not detected, SARS-CoV-2 (PCR) Not detected, Coronavirus NL63 (PCR) Not detected, Human Metapneumovir PCR Not detected, Influenza A (H1) PCR Not detected, Influ A (H1N1/09) PCR Not detected, Influenza A (H3) PCR Not detected, Influenza Type A (PCR) Not detected, Influenza Type B (PCR) Not detected, M. pneumoniae (PCR) Not detected, Parainfluenza 1 (PCR) Not detected, Parainfluenza 2 (PCR) Not detected, Parainfluenza 3 (PCR) Not detected, Parainfluenza 4 (PCR) Not detected, RSV (PCR) Not detected, Entero/Rhino (PCR) Not detected 12/19/20 20:31: POC Glucose 98 12/20/20 06:00: POC Glucose 93 12/20/20 15:56: POC Glucose 85 12/20/20 : Urine Color Yellow, Urine Appearance Clear, Urine pH 6.0, Ur Specific [place] 1.025, Urine Protein Trace, Urine Glucose (UA) Negative, Urine Ketones Trace, Urine Blood Negative, Urine Nitrate Negative, Urine Bilirubin 2+ A, Urine Urobilinogen 0.2, Ur Leukocyte Esterase Trace, Urine RBC Occasional, Urine WBC 3-5, Ur Squamous Epith Cells Occasional, Urine Bacteria 1+, Urine Mucus 1+ I & O for Last 24 hours: Intake & Output 12/17/20 12/18/20 12/19/20 12/20/20 23:59 23:59 23:59 23:59 Intake Total 110 / 110 Output Total 0 / 0 Balance 110 / 110 Weight 80.428 kg 80.059 kg - Constitutional no acute distress, obese, chronically ill appearing, cooperative - *Routine HEENT Exam Head: Present: normocephalic Eye: Present: EOMI, PERRL ENT: Present: mucous membranes dry. Absent: dentition normal Comments: Erythema of oral mucosa, multiple patchy wounds on tongue and palate, cheilitis bilaterally. - *Routine Neck Exam Present: supple. Absent: lymphadenopathy - *Routine Respiratory Exam Present: CTA bilaterally - *Routine Cardiovascular Exam Present: RRR - *Routine Abdominal Exam Present: soft, normoactive b
[2020-12-20 20:00] VITALS: BP 152/62; PULSE 62; RESP 26; TEMP 36.6; O2SAT 95
[2020-12-21 00:37] LABS: POC Glucose,Bedside 109 (70-110)
--- NOTE | 2020-12-21 03:22 | PC.NURSE ---
shift summary pts lung sounds are clear with sats maintained 95% or above on room air, with a rate ranging from 18-26. pt is alert and oriented X4. pt is able to void per bedpan. pt denies any pain, nausea, vomiting, or diarrhea. dressing in place are cdi.
[2020-12-21 04:00] VITALS: BP 139/65; PULSE 69; RESP 24; TEMP 37.1; O2SAT 92
[2020-12-21 05:46] VITALS: BMI 31.9
[2020-12-21 06:18] LABS: POC Glucose,Bedside 91 (70-110)
[2020-12-21 07:50] LABS: Basophils # 0.1 K/mm3 (0-0.2); Basophils % 0.7 % (0.1-2.0); Eosinophils # 0.3 K/mm3 (0.0-0.4); Eosinophils % 2.8 % (0.1-12.0); Hematocrit 33.2 % (37.0-47.0); Hemoglobin 10.5 g/dL (12.2-16.2); Lymphocytes # 1.9 K/mm3 (0.7-4.5); Lymphocytes % 17.2 % (10-50); Mean Corpuscular HGB Conc 31.8 g/dL (31.8-35.4); Mean Corpuscular Hemoglobin 25.6 pg (27.0-31.2); Mean Corpuscular Volume 80.4 fl (81-99); Mean Platelet Volume 9.2 fl (7.4-10.4); Monocytes # 0.4 K/mm3 (0.1-1.0); Neutrophils # 8.2 K/mm3 (1.8-7.8); Neutrophils % 75.4 % (37.0-80.0); Platelet Count 293 K/mm3 (142-424); Red Blood Count 4.12 M/mm3 (4.20-5.40); Red Cell Distribution Width 16.1 % (11.5-17.5); White Blood Count 10.9 K/mm3 (4.8-10.8)
[2020-12-21 07:56] LABS: Alanine Aminotransferase 7 U/L (12-78); Albumin Level 2.7 g/dl (3.5-5.0); Albumin/Globulin Ratio 0.9 (1.1-1.8); Alkaline Phosphatase 122 U/L (38-126); Anion Gap 10.2 mEq/L (5-15); Aspartate Amino Transferase 18 U/L (14-36); Bilirubin,Total 0.4 mg/dl (0.2-1.3); Blood Urea Nitrogen 10 mg/dl (7-17); Calcium 8.5 mg/dl (8.4-10.2); Carbon Dioxide 25 mmol/L (22.0-30.0); Chloride 104 mmol/L (98-107); Creatinine Clearance Estimated 63 mL/min (50-200); Estimated Glomerular Filt Rate 97 ml/min (>60); GFR (African American) 118 ML/MIN (>60); Glucose 97 mg/dl (74-100); Magnesium 1.5 mg/dl (1.6-2.3); Potassium 3.2 mmoL/L (3.5-5.1); Sodium 136 mmol/L (136-145); Total Protein,Serum 5.7 g/dl (6.3-8.2)
[2020-12-21 08:00] VITALS: BP 165/74; PULSE 69; RESP 17; TEMP 36.9; O2SAT 96
--- NOTE | 2020-12-21 08:17 | HMH.ACPN2 ---
Internal Medicine - PN: Subj *Date: 12/21/20 *Time: 08:17 Interval history: Internal medicine follow-up consult note: Patient is alert, pleasant and talkative. States that she feels nauseated. This is been a chronic problem for her over the past couple of weeks. Receiving doxycycline intravenously and fluconazole intravenously. Awaiting results of hip aspiration that will occur later today. Exam Vital signs and Labs for Last 24 Hours: Temp Pulse Resp BP Pulse Ox 98.8 F 69 24 139/65 92 L 12/21/20 04:00 12/21/20 04:00 12/21/20 04:00 12/21/20 04:00 12/21/20 04:00 Laboratory Results - last 24 hr 12/20/20 15:56: POC Glucose 85 12/20/20 21:24: POC Glucose 109 12/20/20 : Urine Color Yellow, Urine Appearance Clear, Urine pH 6.0, Ur Specific [place] 1.025, Urine Protein Trace, Urine Glucose (UA) Negative, Urine Ketones Trace, Urine Blood Negative, Urine Nitrate Negative, Urine Bilirubin 2+ A, Urine Urobilinogen 0.2, Ur Leukocyte Esterase Trace, Urine RBC Occasional, Urine WBC 3-5, Ur Squamous Epith Cells Occasional, Urine Bacteria 1+, Urine Mucus 1+ 12/21/20 06:10: POC Glucose 91 12/21/20 07:42: WBC 10.9 H, RBC 4.12 L, Hgb 10.5 L, Hct 33.2 L, MCV 80.4 L, MCH 25.6 L, MCHC 31.8, RDW 16.1, Plt Count 293, MPV 9.2, Neut % (Auto) 75.4, Lymph % (Auto) 17.2, Iron % (Auto) 4.0, Eos % (Auto) 2.8, Baso % (Auto) 0.7, Neut # (Auto) 8.2 H, Lymph # (Auto) 1.9, Iron # (Auto) 0.4, Eos # (Auto) 0.3, Baso # (Auto) 0.1 12/21/20 07:42: Sodium 136, Potassium 3.2 L, Chloride 104, Carbon Dioxide 25, Anion Gap 10.2, BUN 10 D, Creatinine 0.60, Estimated Creat Clear 63, Estimated GFR 97, Est GFR ( Amer) 118, Glucose 97, Calcium 8.5, Magnesium 1.5 L, Total Bilirubin 0.4, AST 18, ALT 7 L, Alkaline Phosphatase 122, Total Protein 5.7 L, Albumin 2.7 L, Globulin 3.0, Albumin/Globulin Ratio 0.9 L I & O for Last 24 hours: Intake & Output 12/18/20 12/19/20 12/20/20 12/21/20 11:59 11:59 11:59 11:59 Intake Total 110 / 110 360 / 360 Output Total 0 / 0 0 / 0 Balance 110 / 110 360 / 360 Weight 176 lb 8 oz 180 lb 3 oz Narrative: Lungs with good air movement, heart rate regular. Abdomen is soft. No distal edema. PICC line looks good. Assessment and Plan (1) Decubitus ulcer, heel Status: Acute Qualifiers: Pressure injury stage: unspecified pressure injury stage Laterality: right Qualified Code(s): L89.619 - Pressure ulcer of right heel, unspecified stage Category: Medical Code(s): L89.609 - Pressure ulcer of unspecified heel, unspecified stage (2) History of revision of total hip arthroplasty Status: Acute Category: Surgical Code(s): Z96.649 - Presence of unspecified artificial hip joint (3) Postoperative wound dehiscence Status: Acute Category: Medical Code(s): T81.31XA - Disruption of external operation (surgical) wound, not elsewhere classified, initial encounter (4) Multiple drug allergies Status: Chronic Category: Medical Code(s): Z88.9 - Allergy status to unspecified drugs, medicaments and biological substances (5) Hypothyroidism Status: Chronic Qualifiers: Hypothyroidism type: acquired Qualified Code(s): E03.9 - Hypothyroidism, unspecified Category: Medical Code(s): E03.9 - Hypothyroidism, unspecified (6) Anxiety Status: Chronic Category: Medical Code(s): F41.9 - Anxiety disorder, unspecified (7) Atrial fibrillation Status: Chronic Qualifiers: Atrial fibrillation type: paroxysmal Qualified Code(s): I48.0 - Paroxysmal atrial fibrillation Category: Medical Code(s): I48.91 - Unspecified atrial fibrillation (8) Oral ulceration Status: Acute Category: Medical Code(s): K12.1 - Other forms of stomatitis - Assessment and plan all Dx Assessment and Plan for all problems:: Agree with orthopedic plan, continue IV fluconazole on discharge at 200 mg IV daily. Would add proton pump inhibitor on discharge, would recommend Protonix 40 m
--- NOTE | 2020-12-21 09:39 | HMH.ORTHPN ---
Subjective Date: 12/21/20 Time: 09:00 Principal diagnosis: drainage R VISHAL incision Interval history: The patient is well this morning, no fevers or chills reported overnight. Chief complaint remains nausea and difficulty eating. No results on her fluid cultures thus far. No leukocytosis. PN: Obj Ex Vital signs: Temp Pulse Resp BP Pulse Ox 98.8 F 69 24 139/65 92 L 12/21/20 04:00 12/21/20 04:00 12/21/20 04:00 12/21/20 04:00 12/21/20 04:00 - Constitutional no acute distress, morbidly obese - Routine HEENT Exam Head: Present: normocephalic Eye: Present: EOMI ENT: Present: mucous membranes moist - Routine Neck Exam Present: trachea midline - Routine Respiratory Exam Absent: respiratory distress - Routine Cardiovascular Exam Present: RRR - Routine Abdominal Exam Present: soft. Absent: tenderness - Routine Extremities Exam Comments: Awake, alert, oriented, in no obvious distress the patient presents via wheelchair with her son R hip surgical incision closed, 2-3 pinpoint areas of drainage c/w sinus tracts periwound skin irritation/pink; no cellulitis or clinical suspicion for infection. R hip ROM 0-90 degrees without pain +DF/PF/EHL RLE SILT all distributions L3-S1, normal reflexes RLE Palpable pedal pulses, warm well-perfused extremity RLE R heel with dark red/black eschar, smaller in size than previous exam stage 1-2 decub sacrum - Routine Skin Exam Present: warm - Routine Neurological Exam Present: alert, oriented X3, moving all extremities, normal tone, vision grossly intact, hearing grossly intact, normal speech. Absent: sensory deficit, motor deficit, altered mental status Progress Note: A&P (1) Decubitus ulcer, heel Status: Acute (2) History of revision of total hip arthroplasty Status: Acute (3) Postoperative wound dehiscence Status: Acute (4) Multiple drug allergies Status: Chronic (5) Hypothyroidism Status: Chronic (6) Anxiety Status: Chronic (7) Atrial fibrillation Status: Chronic (8) Oral ulceration Status: Acute Assessment and Plan for All Diagnoses:: 75yo F with persistently draining wound s/p R VISHAL revision 11/19/20; preceded by primary VISHAL 10/25/20 complicated by post-operative dislocation. -- ultrasound yesterday did identify a fluid collection but only 2cc bloody fluid aspirated from the region; sent for culture but results pending -- CT scan with contrast confirms fluid collection but difficult to discern whether or not this communicated with the prosthesis or is confined to subcutaneous, extra-fascial tissue plane. -- IV doxycycline and fluconazole started, continue at skilled nursing. doxycycline IV 100mg q12 hours; fluocnazole 400mg IV daily. -- monitor weekly CBC, BMP, ESR, CRP -- SCDs BLE, encourage IS 10x/hr while awake -- offload B/L heels at all times, continue wound care R heel -- keep R VISHAL incision covered with ABD + paper tape, change as needed -- continue percocet for pain control, IV PRN for breakthrough -- Dr. Santillan/Lucinda on consult for medical management -- will d/c back to SNF today and arrange outpatient follow-up with infectious disease and revision arthroplasty specialists
--- NOTE | 2020-12-21 09:47 | HMH.DCSUM ---
General - General Admission date:: 12/19/20 Discharge date: 12/21/20 HPI HPI: 75yo F who presented to my office this afternoon for postoperative follow-up status post right total hip arthroplasty revision performed 11/19/20. This was preceded by a primary VISHAL on 10/25/2020 that dislocated at the assisted postoperatively. She was revised to a constrained liner. During the first week after revision, she had a superficial wound dehiscence with wound drainage, which was treated with a incisional wound VAC. She has had persistent drainage despite continued use of the VAC. No fevers or chills have been reported at the assisted. Her most recent set of labs show a white blood cell count of 8.3, hemoglobin 10.8, ESR 36, CRP 82.7 mg/L. Intraoperative cultures were taken during the revision, of both the superficial seroma and deep hematoma seen time; both were negative for bacterial growth. Deep tissue culture was positive for yeast, but the specimen was discarded prior to requesting speciation. I saw her for wound VAC placement in the ER on 11/30/2020; at that time I requested initiation of fluconazole, but this was never done. She currently does not report significant pain in the hip but has been unable to ambulate. She has yet to ambulate since prior to her initial surgery in October. 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 She currently reports being unable to ambulate due to nausea and weakness. She has had skin breakdown in the folds of her pannus in the skin around her incision has been of poor quality as well. Right heel ulcer has developed, in addition to a sacral decubitus ulcer. 10/25/20 primary R VISHAL; [employer] (synergy stem, redapt cup, OR3O bearing) 11/12/20 fall at SNF; unreported to my office, no XR 11/18/20 routine post-operative follow-up, XR reveals R VISHAL dislocation. Closed reduction attempted, unsuccessful. 11/19/20 R VISHAL revision; [employer] (kept stem/cup; swapped OR3O for constrained liner) 11/30/20 presented to ER with serous wound drainage and superficial dehiscence; Prevena incisional wound vac applied by myself. 12/08/20 new prevena applied The patient's wound continues to drain 1 month after her total hip revision and I am now very concerned she may be infected. If the wound is continuing to during this far out from surgery washout may be indicated, and very likely two-stage revision. Prior to considering any further surgical intervention, however, I would like to confirm the diagnosis of periprosthetic joint infection as well as try to isolate an organism prior to initiation of antibiotic therapy. The patient was taken to radiology today, where the right hip was aspirated using sterile technique. I was unable to aspirate any fluid from the hip. This was done with an 18-gauge spinal needle placed directly at level of the neck of the prosthesis, intracapsular. No fluid was returned. I will admit the patient to the hospital overnight and have radiology do an ultrasound-guided aspiration in the morning. After that broad-spectrum antibiotics will be started and she will be discharged back to the snf facility. I have spoken with a colleague in [place], Dr. Schmid, who is a revision arthroplasty specialist and has agreed to evaluate the patient. We will be referring the patient to Dr. Schmid on an outpatient basis and transferring her records to him; once culture results are available they will be forwarded as well. This has also been communicated to Dr. Santillan. Hospital Course Hospital Course: Patient was admitted to the medical/surgical floor and pain medication restarted. Bilateral heels were offloaded and SCDs placed on bilateral lower extremities. Incentive spirometry was encouraged frequently. No antibiotics were started until after fluid was aspirated from the hip. On the morning of 12/20/2020 ultrasound
[2020-12-21 14:18] LABS: Prealbumin 11 mg/dL (9-32)
--- NOTE | 2020-12-22 06:44 | SW/DCPLANNER ---
THIS PATIENT DISCHARGED TO [facility] WHERE SHE WAS ALREADY ESTABLISHED... SHE WILL BE SKILLED UNDER HER MEDICARE BENEFIT.... PATIENT AND FAMILY AWARE OF DISCHARGE...
== END 2020-12-21 11:44 ==
LOC: 2ND 17:27
PROVIDERS: Internal Medicine Adolescent Medicine; Admitting Provider Orthopaedic Surgery; PCP Internal Medicine Adolescent Medicine; Visit Provider Orthopaedic Surgery
DX: T81.31XA Disruption of external operation (surgical) wound, not elsewhere classified, initial encounter (principal); T81.89XA Other complications of procedures, not elsewhere classified, initial encounter; E03.9 Hypothyroidism, unspecified; Z87.442 Personal history of urinary calculi; I10 Essential (primary) hypertension; Y83.1 Surgical operation with implant of artificial internal device as the cause of abnormal reaction of the patient, or of later complication, without mention of misadventure at the time of the procedure; L89.610 Pressure ulcer of right heel, unstageable; I48.0 Paroxysmal atrial fibrillation; F41.9 Anxiety disorder, unspecified; F32.9 Major depressive disorder, single episode, unspecified; K12.1 Other forms of stomatitis; L89.151 Pressure ulcer of sacral region, stage 1; K21.9 Gastro-esophageal reflux disease without esophagitis; Z79.899 Other long term (current) drug therapy; Z88.8 Allergy status to other drugs, medicaments and biological substances
CPT/HCPCS: 20610 ×2; 10005; 36415; 36569; 71045; 73502; 73702; 76882; 77002; 80053; 81001; 82962; 83036; 83605; 83735; 84100; 84134; 85025; 85651; 86140; 87040; 87070; 87086; 87581; 87633; 87798; C1751; G0378; J1450; J2405

== ENCOUNTER → 2021-07-19 14:23 | Outpatient (CLI) | payer MEDICARE, MEDICAID, SELFPAY | PROVIDERS: Visit Provider Otolaryngology | DX: J32.9 Chronic sinusitis, unspecified (principal); B95.8 Unspecified staphylococcus as the cause of diseases classified elsewhere | CPT/HCPCS: 87070; 87077; 87186 ==

== ENCOUNTER 2021-09-06 06:40 | Emergency (ER) | payer MEDICARE, MEDICAID, SELFPAY ==
[2021-09-06] VITALS (8 sets, daily range): BP systolic 115–177; BP diastolic 52–94; PULSE 51–64; RESP 17–24; TEMP 37.2–37.3; O2SAT 90–95; BMI 42.5
--- NOTE | 2021-09-06 06:44 | ECG_ITS ---
APPROVED REPORT Exam: Resting ECG HR:57 bpm ECG Measurements Heart Rate 57 AXES AZ 139 P 30 QRSd 87 QRS -19 QT 406 T 33 QTc 400 Conclusion SINUS BRADYCARDIA NONSPECIFIC T-WAVE ABNORMALITY BORDERLINE ECG UNCONFIRMED REPORT Electronically signed by : Lance Santillan MD 09/11/2021 17:35:58
--- NOTE | 2021-09-06 07:15 | XR_ITS ---
FINAL REPORT CLINICAL HISTORY: chest pain COMPARISON: December 20, 2020 FINDINGS: The heart size is normal. The mediastinum is normal. There is elevation of the right hemidiaphragm. There is patchy airspace opacity in the right perihilar region. There is atelectasis in the right lung base. There is no pneumothorax. There is no osseous abnormality. IMPRESSION: Elevated right hemidiaphragm with right lower lobe atelectasis. Patchy airspace opacity in the right perihilar region. Reviewed, Interpreted and Dictated by Nadir Hall MD Transcribed by Rony Barrios Authenticated by Nadir Hall MD on 09/06/2021 08:27:03 AM [facility]
[2021-09-06 07:19] LABS: Influenza A, PCR Not Detected (NotDetected); Influenza B, PCR Not Detected (NotDetected)
--- NOTE | 2021-09-06 07:20 | HMH.EDCP ---
ED Disposition Clinical Impression: COVID-19 Chest pain Qualifiers: Chest pain type: unspecified Qualified Code(s): R07.9 - Chest pain, unspecified Aortic stenosis Qualifiers: Cardiac valve disease etiology: nonrheumatic Qualified Code(s): I35.0 - Nonrheumatic aortic (valve) stenosis Disposition: Home, Self-Care Condition on Discharge: Good Instructions: DI for Atypical Chest Pain, DI for COVID-19 (Suspected or Confirmed ) Additional Instructions: resume prev care at [facility] Referrals: Lance Santillan MD [Primary Care Provider] - - Critical Care Critical Care Time: No Attestation: On 09/06/21, the high probability of a clinically significant, sudden or life threatening deterioration of the following system(s) required my full and direct attention, intervention and personal management. The time I documented below is in addition to time spent performing reported procedures but includes the following listed in this critical care notation. Medical Decision Making - Medical Records Medical records reviewed: Yes: I reviewed the patient's medical records. - [place] Inquiry Pt receiving controlled substance: No Vital Signs: 09/06/21 06:25 09/06/21 07:46 09/06/21 08:00 Temperature 99.1 F Temperature Source Rectal Pulse Rate 56 L 51 L Pulse Rate [Apical] 51 L Respiratory Rate 20 Blood Pressure 165/58 H 150/56 H Blood Pressure [Right Arm] 177/52 H Blood Pressure Mean Blood Pressure Mean [Right Arm] 93 Blood Pressure Source Automatic Cuff Blood Pressure Source [Right Arm] Automatic Cuff Blood Pressure Position Sitting Blood Pressure Position [Right Arm] Sitting 02 Sat by Pulse Oximetry 92 L 91 L 90 L Oxygen Delivery Method Room Air Room Air 09/06/21 08:30 09/06/21 09:00 09/06/21 10:15 Temperature Temperature Source Pulse Rate 64 57 L 55 L Pulse Rate [Apical] Respiratory Rate 24 Blood Pressure 133/76 143/94 H 150/60 H Blood Pressure [Right Arm] Blood Pressure Mean Blood Pressure Mean [Right Arm] Blood Pressure Source Blood Pressure Source [Right Arm] Blood Pressure Position Blood Pressure Position [Right Arm] 02 Sat by Pulse Oximetry 93 L 90 L 95 Oxygen Delivery Method 09/06/21 11:00 Temperature Temperature Source Pulse Rate 58 L Pulse Rate [Apical] Respiratory Rate 18 Blood Pressure 155/55 H Blood Pressure [Right Arm] Blood Pressure Mean 110 Blood Pressure Mean [Right Arm] Blood Pressure Source Blood Pressure Source [Right Arm] Blood Pressure Position Blood Pressure Position [Right Arm] 02 Sat by Pulse Oximetry 95 Oxygen Delivery Method - Lab Data Lab results reviewed: Yes: I reviewed the patient's lab results. Lab Results 09/06/21 06:52: WBC 3.4 L, RBC 4.26, Hgb 11.6 L, Hct 37.1, MCV 87.1, MCH 27.3, MCHC 31.3 L, RDW 16.6, Plt Count 132 L, MPV 10.4, Neut % (Auto) 53.5, Lymph % (Auto) 32.5, [place] % (Auto) 9.2, Eos % (Auto) 4.9, Baso % (Auto) 4.6 H, Neut # (Auto) 1.8, Lymph # (Auto) 1.1, [place] # (Auto) 0.3, Eos # (Auto) 0.2, Baso # (Auto) 0.2, ESR 24 09/06/21 06:52: Sodium 140, Potassium 4.4, Chloride 105, Carbon Dioxide 30, Anion Gap 9.4, BUN 24 H, Creatinine 1.00, Estimated Creat Clear 40, Estimated GFR 54 L, Est GFR ( Amer) 65, Glucose 98, Calcium 9.0, Total Bilirubin 0.3, AST 33, ALT 18, Alkaline Phosphatase 64, Troponin I < 0.01, C-Reactive Protein 13.7 H, Total Protein 6.9, Albumin 4.1, Globulin 2.8, Albumin/Globulin Ratio 1.5, Procalcitonin 0.090, TSH 2.58, Thyroxine (T4) 5.5 L 09/06/21 06:52: SARS-CoV-2 (PCR) Detected A, Influenza A Untype (PCR) Not detected, Influenza Type B (PCR) Not detected 09/06/21 10:30: Troponin I < 0.01 Result diagrams: 09/06/21 06:52 09/06/21 06:52 Orders (Tests/Meds): ED MEDICATIONS Discontinued Medications Generic Name Dose Route Start Last Admin Trade Name Freq PRN Reason Stop Dose Admin Aspirin 324 mg 09/06/21 07:14 09/06/21 07:48 Aspirin 81mg Chewable Tabl
[2021-09-06 07:35] LABS: Basophils # 0.2 K/mm3 (0-0.2); Basophils % 4.6 % (0.1-2.0); Eosinophils # 0.2 K/mm3 (0.0-0.4); Eosinophils % 4.9 % (0.1-12.0); Hematocrit 37.1 % (37.0-47.0); Hemoglobin 11.6 g/dL (12.2-16.2); Lymphocytes # 1.1 K/mm3 (0.7-4.5); Lymphocytes % 32.5 % (10-50); Mean Corpuscular HGB Conc 31.3 g/dL (31.8-35.4); Mean Corpuscular Hemoglobin 27.3 pg (27.0-31.2); Mean Corpuscular Volume 87.1 fl (81-99); Mean Platelet Volume 10.4 fl (7.4-10.4); Monocytes # 0.3 K/mm3 (0.1-1.0); Monocytes % 9.2 % (1.7-9.3); Neutrophils # 1.8 K/mm3 (1.8-7.8); Neutrophils % 53.5 % (37.0-80.0); Platelet Count 132 K/mm3 (142-424); Red Blood Count 4.26 M/mm3 (4.20-5.40); Red Cell Distribution Width 16.6 % (11.5-17.5); White Blood Count 3.4 K/mm3 (4.8-10.8)
[2021-09-06 07:40] LABS: Alanine Aminotransferase 18 U/L (12-78); Albumin Level 4.1 g/dl (3.5-5.0); Albumin/Globulin Ratio 1.5 (1.1-1.8); Alkaline Phosphatase 64 U/L (38-126); Anion Gap 9.4 mEq/L (5-15); Aspartate Amino Transferase 33 U/L (14-36); Bilirubin,Total 0.3 mg/dl (0.2-1.3); Blood Urea Nitrogen 24 mg/dl (7-17); Carbon Dioxide 30 mmol/L (22.0-30.0); Chloride 105 mmol/L (98-107); Creatinine Clearance Estimated 40 mL/min (50-200); Estimated Glomerular Filt Rate 54 ml/min (>60); GFR (African American) 65 ML/MIN (>60); Globulin 2.8 g/dL (1.3-3.2); Glucose 98 mg/dl (74-100); Potassium 4.4 mmoL/L (3.5-5.1); Sodium 140 mmol/L (136-145); Total Protein,Serum 6.9 g/dl (6.3-8.2)
[2021-09-06 07:45] LABS: C-Reactive Protein 13.7 mg/L (0-4)
--- NOTE | 2021-09-06 07:55 | CT_ITS ---
PROCEDURE INFORMATION: Exam: CTA Chest With Contrast Exam date and time: 09/06/2021 7:55 AM Age: 76 years old Clinical indication: Pain; Angina pectoris; Additional info: Covid +, chest pain TECHNIQUE: Imaging protocol: Computed tomographic angiography of the chest with contrast. 3D rendering (Not supervised by radiologist): MIP and/or 3D reconstructed images were created by the technologist. Radiation optimization: All CT scans at this facility use at least one of these dose optimization techniques: automated exposure control; mA and/or kV adjustment per patient size (includes targeted exams where dose is matched to clinical indication); or iterative reconstruction. Contrast material: ISOVUE 370; Contrast volume: 75 ml; Contrast route: INTRAVENOUS (IV); COMPARISON: CT ANGIO CHEST 11/21/2020 10:04 AM FINDINGS: Pulmonary arteries: Normal. No pulmonary emboli. Aorta: Unremarkable. No aortic aneurysm. No aortic dissection. 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 Lungs: No focal airspace consolidation. Stable 6 mm subpleural right lower lobe pulmonary nodule on series 5, image 43. Pleural spaces: Unremarkable. No pneumothorax. No pleural effusion. Heart: Unremarkable. No cardiomegaly. No pericardial effusion. Lymph nodes: Unremarkable. No enlarged lymph nodes. Gallbladder and bile ducts: Cholecystectomy. Bones/joints: Unremarkable. No acute fracture. Soft tissues: Unremarkable. IMPRESSION: No pulmonary emboli or other acute cardiopulmonary pathology identified.
--- NOTE | 2021-09-06 07:57 | PC.NURSE ---
notified rad of CT order, spoke with amita
[2021-09-06 08:00] LABS: T4 (Thyroxine) 5.5 ug/dl (5.53-11.0)
--- NOTE | 2021-09-06 08:06 | PC.NURSE ---
Pt to rad.
[2021-09-06 08:13] LABS: Thyroid Stimulating Hormone 2.58 uIU/mL (0.465-4.68)
--- NOTE | 2021-09-06 08:26 | PC.NURSE ---
back from CT
[2021-09-06 08:27] LABS: Coronavirus 19, PCR Detected (NotDetected); Erythrocyte Sedimentation Rate 24 mm/hr (0-30)
[2021-09-06 08:38] LABS: Troponin I < 0.01 ng/ml (0.00-0.034)
[2021-09-06 11:09] LABS: Troponin I < 0.01 ng/ml (0.00-0.034)
== END 2021-09-06 11:59 | disposition home or self-care (01) ==
PROVIDERS: Emergency Provider Emergency Medicine; PCP Internal Medicine Adolescent Medicine
DX: U07.1 COVID-19 (principal); R07.9 Chest pain, unspecified; I35.0 Nonrheumatic aortic (valve) stenosis; E11.9 Type 2 diabetes mellitus without complications; K21.9 Gastro-esophageal reflux disease without esophagitis; E78.5 Hyperlipidemia, unspecified; I10 Essential (primary) hypertension; I48.0 Paroxysmal atrial fibrillation
CPT/HCPCS: 36415; 71045; 71275; 80053; 84145; 84436; 84443; 84484; 85025; 85651; 86140; 93005; 96365; 99283; C9803; Q9967; U0003; U0005

== ENCOUNTER → 2021-10-13 09:21 | Outpatient (CLI) | payer MEDICARE, MEDICAID, SELFPAY ==
--- NOTE | 2021-10-13 09:31 | MR_ITS ---
FINAL REPORT CLINICAL HISTORY: CELLULITIS OF RT HEEL. UNABLE TO HEAL. FINDINGS: Multiplanar MR imaging of the right foot was performed without contrast. There are moderate degenerative changes. Calcaneal spurs are identified. There is mild bone marrow edema in the inferior calcaneal tuberosity, favor reactive. There is no evidence of marrow replacement to suggest osteomyelitis. There is soft tissue edema or cellulitis involving the posterior heel pad. No fluid collection is seen to suggest an abscess. The flexor and extensor tendons are intact. No ligamentous injury is identified. The musculature is intact. The plantar aponeurosis is intact. No soft tissue mass or cyst is identified. IMPRESSION: No MR evidence to suggest osteomyelitis. Soft tissue edema or cellulitis of the heel pad. Reviewed, Interpreted and Dictated by Ulises Izaguirre III, MD Transcribed by Nettie Cornell Authenticated by Ulises Izaguirre III, MD on 10/13/2021 01:13:25 PM [facility]
== END ==
PROVIDERS: PCP Internal Medicine Adolescent Medicine; Visit Provider Internal Medicine Adolescent Medicine
DX: L03.115 Cellulitis of right lower limb (principal)
CPT/HCPCS: 73718

== ENCOUNTER 2021-12-05 11:35 | Emergency (ER) | payer MEDICARE, MEDICAID, SELFPAY ==
[2021-12-05 11:21] VITALS: BP 149/56; PULSE 66; RESP 24; TEMP 36.7; O2SAT 96; BMI 34.2
--- NOTE | 2021-12-05 11:30 | ECG_ITS ---
APPROVED REPORT Exam: Resting ECG HR:65 bpm ECG Measurements Heart Rate 65 AXES QRSd 84 QRS -20 QT 389 T 25 QTc 400 Conclusion ATRIAL FIBRILLATION ABNORMAL RHYTHM ECG UNCONFIRMED REPORT Electronically signed by : Lance Santillan MD 12/07/2021 08:04:46
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
--- NOTE | 2021-12-05 11:47 | PC.NURSE ---
radiology at bedside
--- NOTE | 2021-12-05 11:48 | PC.NURSE ---
radiology done at bedside
[2021-12-05 11:58] LABS: Chloride 111 mmol/L (98-107); Potassium 4.7 mmoL/L (3.5-5.1); Sodium 140 mmol/L (136-145)
[2021-12-05 12:01] LABS: Alanine Aminotransferase 15 U/L (12-78); Albumin Level 3.8 g/dl (3.5-5.0); Albumin/Globulin Ratio 1.3 (1.1-1.8); Alkaline Phosphatase 84 U/L (38-126); Anion Gap 9.7 mEq/L (5-15); Aspartate Amino Transferase 21 U/L (14-36); Basophils % 0.4 % (0.1-2.0); Bilirubin,Total 0.6 mg/dl (0.2-1.3); Blood Urea Nitrogen 25 mg/dl (7-17); Carbon Dioxide 24 mmol/L (22.0-30.0); Creatinine Clearance Estimated 66 mL/min (50-200); Eosinophils # 0.2 K/mm3 (0.0-0.4); Eosinophils % 3.8 % (0.1-12.0); Estimated Glomerular Filt Rate 54 ml/min (>60); GFR (African American) 65 ML/MIN (>60); Globulin 2.9 g/dL (1.3-3.2); Hematocrit 37.7 % (37.0-47.0); Lymphocytes # 1.1 K/mm3 (0.7-4.5); Lymphocytes % 17.6 % (10-50); Mean Corpuscular HGB Conc 31.9 g/dL (31.8-35.4); Mean Corpuscular Hemoglobin 27.4 pg (27.0-31.2); Mean Corpuscular Volume 85.9 fl (81-99); Mean Platelet Volume 9.1 fl (7.4-10.4); Monocytes # 0.4 K/mm3 (0.1-1.0); Neutrophils # 4.5 K/mm3 (1.8-7.8); Neutrophils % 72.3 % (37.0-80.0); Platelet Count 162 K/mm3 (142-424); Red Blood Count 4.38 M/mm3 (4.20-5.40); Red Cell Distribution Width 15.9 % (11.5-17.5); Total Protein,Serum 6.7 g/dl (6.3-8.2); White Blood Count 6.2 K/mm3 (4.8-10.8)
[2021-12-05 12:02] LABS: Calcium 9.5 mg/dl (8.4-10.2); Glucose 116 mg/dl (74-100)
--- NOTE | 2021-12-05 12:06 | PC.NURSE ---
notified RT of orders on pt
--- NOTE | 2021-12-05 12:11 | PC.WOUNDNOTE ---
RT at BS
[2021-12-05 12:21] VITALS: BP 150/76; PULSE 72; RESP 20; O2SAT 94
[2021-12-05 12:23] LABS: Carboxyhemoglobin 0.6 (0.0-5.0)
[2021-12-05 12:39] LABS: Troponin I < 0.01 ng/ml (0.00-0.034)
--- NOTE | 2021-12-05 12:43 | PC.NURSE ---
pt voided per bedpan at this time. ordered pt lunch tray (okayed per ER MD) will continue to monitor
--- NOTE | 2021-12-05 13:12 | PC.NURSE ---
pt eating lunch tray
--- NOTE | 2021-12-05 13:43 | PC.NURSE ---
pt sitting up in wheelchair, waiting on family to pick her up. Pt states no needs at this time
[2021-12-05 14:37] VITALS: BP 150/76; PULSE 68; RESP 20; TEMP 36.8; O2SAT 98
== END 2021-12-05 14:39 | disposition home or self-care (01) ==
PROVIDERS: Emergency Provider Emergency Medicine; PCP Emergency Medicine
DX: T59.811A Toxic effect of smoke, accidental (unintentional), initial encounter (principal); I48.91 Unspecified atrial fibrillation; Z88.0 Allergy status to penicillin; Z88.1 Allergy status to other antibiotic agents; Z88.3 Allergy status to other anti-infective agents; Z88.5 Allergy status to narcotic agent; Z88.6 Allergy status to analgesic agent; Z88.8 Allergy status to other drugs, medicaments and biological substances; Z91.018 Allergy to other foods
CPT/HCPCS: 71045; 80053; 82375; 84484; 85025; 93005; 99285

== ENCOUNTER → 2022-02-14 13:33 | Outpatient (CLI) | payer MEDICARE, MEDICAID, SELFPAY ==
--- NOTE | 2022-02-14 13:41 | XR_ITS ---
FINAL REPORT CLINICAL HISTORY: heel ulcer FINDINGS: RIGHT ANKLE: Three views of the right ankle were obtained. There is no acute fracture or dislocation. The bones are osteopenic. There is mild degenerative change. There are calcaneal spurs. Soft tissue swelling is present. There is vascular calcification. IMPRESSION: Soft tissue swelling with mild degenerative change. Reviewed, Interpreted and Dictated by Ulises Izaguirre III, MD Transcribed by Rony Barrios Authenticated and [facility]
--- NOTE | 2022-02-14 13:41 | XR_ITS ---
FINAL REPORT CLINICAL HISTORY: heel ulcer FINDINGS: 3 cm elated weight-bearing views of the right foot were obtained. There is no acute fracture or dislocation. The bones are osteopenic. There are mild degenerative changes. There are no bony erosions. There are calcaneal spurs. Vascular calcifications are present. IMPRESSION: Mild degenerative change. No bony erosions. Reviewed, Interpreted and Dictated by Ulises Izaguirre III, MD Transcribed by Rony Barrios Authenticated and [facility]
[2022-02-14 14:29] LABS: Basophils % 0.4 % (0.1-2.0); Eosinophils # 0.4 K/mm3 (0.0-0.4); Hematocrit 36.2 % (37.0-47.0); Hemoglobin 11.7 g/dL (12.2-16.2); Lymphocytes % 17.2 % (10-50); Mean Corpuscular HGB Conc 32.3 g/dL (31.8-35.4); Mean Corpuscular Hemoglobin 26.3 pg (27.0-31.2); Mean Corpuscular Volume 81.4 fl (81-99); Mean Platelet Volume 9.2 fl (7.4-10.4); Monocytes # 0.3 K/mm3 (0.1-1.0); Monocytes % 5.8 % (1.7-9.3); Neutrophils # 4.1 K/mm3 (1.8-7.8); Neutrophils % 70.6 % (37.0-80.0); Platelet Count 178 K/mm3 (142-424); Red Blood Count 4.45 M/mm3 (4.20-5.40); White Blood Count 5.8 K/mm3 (4.8-10.8)
[2022-02-14 14:56] LABS: Alanine Aminotransferase 11 U/L (12-78); Albumin Level 3.7 g/dl (3.5-5.0); Albumin/Globulin Ratio 1.3 (1.1-1.8); Alkaline Phosphatase 88 U/L (38-126); Anion Gap 9.6 mEq/L (5-15); Aspartate Amino Transferase 17 U/L (14-36); Bilirubin,Total 0.2 mg/dl (0.2-1.3); Blood Urea Nitrogen 23 mg/dl (7-17); Calcium 8.9 mg/dl (8.4-10.2); Carbon Dioxide 27 mmol/L (22.0-30.0); Chloride 108 mmol/L (98-107); Estimated Glomerular Filt Rate 54 ml/min (>60); GFR (African American) 65 ML/MIN (>60); Globulin 2.8 g/dL (1.3-3.2); Glucose 106 mg/dl (74-100); Potassium 4.6 mmoL/L (3.5-5.1); Sodium 140 mmol/L (136-145); Total Protein,Serum 6.5 g/dl (6.3-8.2)
[2022-02-14 15:01] LABS: C-Reactive Protein 5.9 mg/L (0-4)
[2022-02-14 15:43] LABS: Erythrocyte Sedimentation Rate 17 mm/hr (0-30)
== END ==
PROVIDERS: PCP Internal Medicine Adolescent Medicine; Visit Provider Nurse Practitioner Family
DX: Z51.89 Encounter for other specified aftercare (principal); T59.811A Toxic effect of smoke, accidental (unintentional), initial encounter
CPT/HCPCS: 36415; 73610; 73630; 80053; 85025; 85651; 86140; 87070; 87077; 87186; 87205

== ENCOUNTER → 2022-02-14 16:56 | Outpatient (CLI) | payer MEDICARE, MEDICAID, SELFPAY | PROVIDERS: Visit Provider Podiatrist | DX: L03.115 Cellulitis of right lower limb (principal) ==

== ENCOUNTER → 2022-02-15 14:18 | Outpatient (CLI) | payer MEDICARE, MEDICAID, SELFPAY | PROVIDERS: PCP Physician Assistant; Visit Provider Physician Assistant | DX: R06.02 Shortness of breath (principal) | CPT/HCPCS: 93306 ==

== ENCOUNTER 2022-02-18 12:46 | Observation (INO) | payer MEDICARE, MEDICAID, SELFPAY ==
[2022-02-18] VITALS (10 sets, daily range): BP systolic 97–180; BP diastolic 53–139; PULSE 52–60; RESP 17–22; TEMP 36.7–37.1; O2SAT 94–99; BMI 42.5; BMI 37.2
--- NOTE | 2022-02-18 12:44 | ECG_ITS ---
APPROVED REPORT Exam: Resting ECG HR:55 bpm ECG Measurements Heart Rate 55 AXES AZ 181 P 56 QRSd 89 QRS -18 QT 423 T 30 QTc 411 Conclusion SINUS BRADYCARDIA BORDERLINE ECG UNCONFIRMED REPORT Electronically signed by : Lance Santillan MD 02/19/2022 14:01:28
--- NOTE | 2022-02-18 12:48 | HMH.EDGENADL ---
ED Disposition Clinical Impression: Chronic wound of extremity, Wound infection Congestive heart failure Qualifiers: Heart failure type: unspecified Heart failure chronicity: acute Qualified Code(s): I50.9 - Heart failure, unspecified Disposition: Admitted as Observation Condition on Discharge: Fair - Critical Care Critical Care Time: No Attestation: On , the high probability of a clinically significant, sudden or life threatening deterioration of the following system(s) required my full and direct attention, intervention and personal management. The time I documented below is in addition to time spent performing reported procedures but includes the following listed in this critical care notation. Medical Decision Making - Medical Records Medical records reviewed: Yes: I reviewed the patient's medical records. MR Comment: Reviewed clinic note from [facility] 02/06/2022. Patient presented with shortness of breath, congestion, nonhealing wound on her right heel. Referred to podiatry and wound care. Echocardiogram ordered. Started on Levaquin for congestion. She did follow-up with podiatry on 02/15/2022. Note reviewed. Wound culture obtained at that time. Reviewed result. Positive for Pseudomonas, sensitive to Levaquin. - [place] Inquiry Pt receiving controlled substance: No Vital Signs: 02/18/22 12:47 02/18/22 13:01 02/18/22 13:31 Temperature 98.8 F Temperature Source Oral Pulse Rate 57 L 54 L Pulse Rate [Right] 57 L Respiratory Rate 22 Blood Pressure 142/60 H 148/62 H Blood Pressure [Right Arm] 160/53 H Blood Pressure Mean 116 105 Blood Pressure Mean [Right Arm] 88 Blood Pressure Source [Right Arm] Automatic Cuff Blood Pressure Position [Right Arm] Sitting 02 Sat by Pulse Oximetry 94 L 98 99 Oxygen Delivery Method Room Air Oxygen Flow Rate (LPM) 02/18/22 14:01 02/18/22 14:30 02/18/22 15:01 Temperature Temperature Source Pulse Rate 52 L 58 L 60 Pulse Rate [Right] Respiratory Rate Blood Pressure 146/59 H 157/68 H 155/64 H Blood Pressure [Right Arm] Blood Pressure Mean 108 97 94 Blood Pressure Mean [Right Arm] Blood Pressure Source [Right Arm] Blood Pressure Position [Right Arm] 02 Sat by Pulse Oximetry 97 97 98 Oxygen Delivery Method Nasal Cannula Oxygen Flow Rate (LPM) 2 02/18/22 16:01 Temperature Temperature Source Pulse Rate 57 L Pulse Rate [Right] Respiratory Rate Blood Pressure 167/139 H Blood Pressure [Right Arm] Blood Pressure Mean 148 Blood Pressure Mean [Right Arm] Blood Pressure Source [Right Arm] Blood Pressure Position [Right Arm] 02 Sat by Pulse Oximetry 95 Oxygen Delivery Method Oxygen Flow Rate (LPM) - Lab Data Lab Results 02/18/22 12:54: SARS-CoV-2 (PCR) Not detected, Influenza A Untype (PCR) Not detected, Influenza Type B (PCR) Not detected 02/18/22 13:00: WBC 5.7, RBC 4.35, Hgb 11.4 L, Hct 37.5, MCV 86.3, MCH 26.1 L, MCHC 30.3 L, RDW 16.1, Plt Count 174, MPV 9.8, Neut % (Auto) 67.8, Lymph % (Auto) 18.3, [place] % (Auto) 6.2, Eos % (Auto) 6.3, Baso % (Auto) 1.6, Neut # (Auto) 3.8, Lymph # (Auto) 1.0, [place] # (Auto) 0.4, Eos # (Auto) 0.4, Baso # (Auto) 0.1 02/18/22 13:00: Sodium 138, Potassium 5.2 H, Chloride 108 H, Carbon Dioxide 26, Anion Gap 9.2, BUN 20 H, Creatinine 1.10 H, Estimated Creat Clear 35, Estimated GFR 48 L, Est GFR ( Amer) 58 L, Glucose 132 H, Calcium 8.9, Total Bilirubin 0.4, AST 19, ALT 11 L, Alkaline Phosphatase 76, Troponin I < 0.01, Total Protein 6.5, Albumin 3.7, Globulin 2.8, Albumin/Globulin Ratio 1.3 02/18/22 13:00: Lactate 0.8 02/18/22 16:15: Troponin I < 0.01 02/18/22 16:15: NT-Pro-B Natriuret Pep 1110 H Result diagrams: 02/18/22 13:00 02/18/22 13:00 Orders (Tests/Meds): ED MEDICATIONS Generic Name Dose Route Start Last Admin Trade Name Freq PRN Reason Stop Dose Admin Sodium Chloride 10 ml 02/18/22 12:57 02/18/22 13:01 Sodium Chloride 0.9% 10ml Flush Syringe I
--- NOTE | 2022-02-18 12:57 | XR_ITS ---
PROCEDURE INFORMATION: Exam: XR Chest Exam date and time: 02/18/2022 1:04 PM Age: 77 years old Clinical indication: Cough and shortness of breath; Additional info: Soa/cough TECHNIQUE: Imaging protocol: Radiologic exam of the chest. Views: 1 view. COMPARISON: CR XR CHEST PORTABLE 12/05/2021 11:42 AM FINDINGS: Lungs: Chronic elevation of the right hemidiaphragm with contiguous atelectasis. Atelectasis or infiltrate in the left lung base. Pleural spaces: Unremarkable. No pleural effusion. No pneumothorax. Heart/Mediastinum: Heart is enlarged. Vasculature: Calcification within thoracic aorta. Bones/joints: Acromioclavicular arthropathy. IMPRESSION: 1. Chronic elevation of the right hemidiaphragm with contiguous atelectasis. 2. Atelectasis or infiltrate in the left lung base. 3. Cardiomegaly.
--- NOTE | 2022-02-18 12:58 | PC.NURSE ---
Entered room to assess patient and noted she had audible wheezing. Duoneb administered per ER staff, pt advises she is feeling somewhat better during and after treatment. Pt legs are bandaged and she advises that they are tender and painful. Pt lower legs propped up on pillow for comfort.
[2022-02-18 13:03] LABS: Coronavirus 19, PCR Not Detected (NotDetected); Influenza A, PCR Not Detected (NotDetected); Influenza B, PCR Not Detected (NotDetected)
[2022-02-18 13:23] LABS: Chloride 108 mmol/L (98-107); Potassium 5.2 mmoL/L (3.5-5.1); Sodium 138 mmol/L (136-145)
[2022-02-18 13:26] LABS: Alanine Aminotransferase 11 U/L (12-78); Albumin Level 3.7 g/dl (3.5-5.0); Albumin/Globulin Ratio 1.3 (1.1-1.8); Alkaline Phosphatase 76 U/L (38-126); Anion Gap 9.2 mEq/L (5-15); Aspartate Amino Transferase 19 U/L (14-36); Bilirubin,Total 0.4 mg/dl (0.2-1.3); Blood Urea Nitrogen 20 mg/dl (7-17); Calcium 8.9 mg/dl (8.4-10.2); Carbon Dioxide 26 mmol/L (22.0-30.0); Creatinine Clearance Estimated 35 mL/min (50-200); Estimated Glomerular Filt Rate 48 ml/min (>60); GFR (African American) 58 ML/MIN (>60); Globulin 2.8 g/dL (1.3-3.2); Glucose 132 mg/dl (74-100); Total Protein,Serum 6.5 g/dl (6.3-8.2)
[2022-02-18 13:27] LABS: Lactic Acid 0.8 mmol/L (0.7-2.1)
--- NOTE | 2022-02-18 13:28 | PC.NURSE ---
Assisted pt with use of BSC. Pt had BM and urinated. Assisted pt back into bed. Warm blankets provided. No other needs at this time
[2022-02-18 13:30] LABS: Basophils # 0.1 K/mm3 (0-0.2); Basophils % 1.6 % (0.1-2.0); Eosinophils # 0.4 K/mm3 (0.0-0.4); Eosinophils % 6.3 % (0.1-12.0); Hematocrit 37.5 % (37.0-47.0); Hemoglobin 11.4 g/dL (12.2-16.2); Lymphocytes % 18.3 % (10-50); Mean Corpuscular HGB Conc 30.3 g/dL (31.8-35.4); Mean Corpuscular Hemoglobin 26.1 pg (27.0-31.2); Mean Corpuscular Volume 86.3 fl (81-99); Mean Platelet Volume 9.8 fl (7.4-10.4); Monocytes # 0.4 K/mm3 (0.1-1.0); Monocytes % 6.2 % (1.7-9.3); Neutrophils # 3.8 K/mm3 (1.8-7.8); Neutrophils % 67.8 % (37.0-80.0); Platelet Count 174 K/mm3 (142-424); Red Blood Count 4.35 M/mm3 (4.20-5.40); Red Cell Distribution Width 16.1 % (11.5-17.5); White Blood Count 5.7 K/mm3 (4.8-10.8)
[2022-02-18 13:40] LABS: Troponin I < 0.01 ng/ml (0.00-0.034)
--- NOTE | 2022-02-18 13:46 | PC.NURSE ---
Family at BS
--- NOTE | 2022-02-18 13:49 | PC.NURSE ---
Updated son and pt on results that have returned
--- NOTE | 2022-02-18 14:27 | CT_ITS ---
PROCEDURE INFORMATION: Exam: CTA Chest With Contrast Exam date and time: 02/18/2022 2:44 PM Age: 77 years old Clinical indication: Shortness of breath; Additional info: SOA TECHNIQUE: Imaging protocol: Computed tomographic angiography of the chest with contrast. 3D rendering (Not supervised by radiologist): MIP and/or 3D reconstructed images were created by the technologist. Radiation optimization: All CT scans at this facility use at least one of these dose optimization techniques: automated exposure control; mA and/or kV adjustment per patient size (includes targeted exams where dose is matched to clinical indication); or iterative reconstruction. Contrast material: ISOVUE; Contrast volume: 70 ml; Contrast route: INTRAVENOUS (IV); COMPARISON: CR XR CHEST PORTABLE 02/18/2022 1:04 PM FINDINGS: Pulmonary arteries: There is no filling defect within the main pulmonary trunk, main right or left pulmonary arteries or their 1st order branches. Distal to this, artifact precludes precise exclusion of pulmonary embolism. Aorta: No evidence of aortic dissection. Ascending thoracic aorta is 3.5 cm in cross-section. Descending thoracic aorta is 3.3 cm in cross a.m.. There are calcifications within thoracic aorta, carotid and coronary arteries. Celiac trunk and mesenteric arteries: Densely calcified splenic artery aneurysms. Thyroid: 1.8 cm nodule left lobe of thyroid. Follow-up with thyroid ultrasound. Lungs: Evaluation of the lung parenchyma reveals patchy ground-glass infiltrates scattered throughout the bilateral lungs concerning for multifocal pneumonia as can be seen with viral infection and Covid 19. Fluid overload or congestive failure mechanism could present in a similar fashion. Clinical correlation is needed. Follow-up is recommended. Elevated right hemidiaphragm with contiguous atelectasis. Pleural spaces: Unremarkable. No pneumothorax. No pleural effusion. Heart: The heart is enlarged. Lymph nodes: A few prominent prevascular and pretracheal lymph nodes without nika mediastinal adenopathy. Diaphragm: Sliding hiatal hernia. Gallbladder and bile ducts: Gallbladder is surgically absent. No pathologic dilation of the biliary tree is appreciated. Spleen: Punctate calcified granulomas within the otherwise unremarkable spleen. Stomach and bowel: Diverticular disease is present within the descending colon. No surrounding inflammation or fluid. Bones/joints: Degenerative spondylosis, mild rotoscoliosis and facet arthropathy within the spine. Diffuse bone demineralization. Soft tissues: Ovoid soft tissue prominence of the anterior superior aspect of the right kidney is suspicious for underlying mass lesion. Follow-up with contrast-enhanced CT, MRI or ultrasound. IMPRESSION: 1. Patchy ground-glass infiltrates scattered throughout the bilateral lungs concerning for multifocal pneumonia as can be seen with viral infection and Covid 19. Fluid overload or congestive failure mechanism could present in a similar fashion. Clinical correlation is needed. Follow-up is recommended. 2. There is no filling defect within the main pulmonary trunk, main right or left pulmonary arteries or their 1st order branches. Distal to this, artifact precludes precise exclusion of pulmonary embolism. 3. No evidence of aortic dissection. Ascending thoracic aorta is 3.5 cm in cross-section. Descending thoracic aorta is 3.3 cm in cross-section. 4. 1.8 cm nodule left lobe of thyroid. Follow-up with thyroid ultrasound. 5. Cardiomegaly. 6. Ovoid soft tissue prominence of the anterior superior aspect of the right kidney is suspicious for underlying mass lesion. Follow-up with c
--- NOTE | 2022-02-18 14:42 | PC.NURSE ---
pt to CT with bradley linebacker crewmember by juliette
--- NOTE | 2022-02-18 15:14 | PC.NURSE ---
pt resting in bed at this time. No new needs.
--- NOTE | 2022-02-18 15:31 | PC.NURSE ---
pt was uncomfortable in the bed and asked to sit in a wheelchair. Assisted patient to a wheelchair and she was hooked back up to the monitor. She is on her phone at this time, no other needs. Call light within reach
--- NOTE | 2022-02-18 15:57 | PC.NURSE ---
Updated son and pt that MD would be reviewing all results and be in to speak with them and go over POC. Both agreeable. Warm blankets given to pt. No other needs at this time
--- NOTE | 2022-02-18 16:11 | PC.NURSE ---
notified lab of the added bnp
[2022-02-18 17:06] LABS: NT Pro Brain Natriuretic Pep. 1110 pg/mL (0-450)
[2022-02-18 17:07] LABS: Troponin I < 0.01 ng/ml (0.00-0.034)
--- NOTE | 2022-02-18 17:15 | PC.NURSE ---
speaking with Dr. Carrillo
--- NOTE | 2022-02-18 17:29 | PC.NURSE ---
Spoke to DEREJE Shah regarding patient admission
--- NOTE | 2022-02-18 17:33 | PC.NURSE ---
MD at bedside discussing POC with pt
--- NOTE | 2022-02-18 17:39 | PC.NURSE ---
speaking with Dr. Matute
--- NOTE | 2022-02-18 18:19 | PC.NURSE ---
Went in with list of meds that were in the computer, pt confirmed these were the correct medications with the correct doses, updated MED REC
--- NOTE | 2022-02-18 18:31 | PC.NURSE ---
Dietary brought tray to patient; helped assist her setting it up
--- NOTE | 2022-02-18 18:42 | PC.NURSE ---
Called report to Lian Florez
[2022-02-18 19:44] LABS: Troponin I < 0.01 ng/ml (0.00-0.034)
--- NOTE | 2022-02-18 22:58 | PC.WOUNDNOTE ---
Right heel chronic ulcer
--- NOTE | 2022-02-18 22:59 | PC.WOUNDNOTE ---
Scar on right hip from previous surgery
[2022-02-19 04:00] VITALS: BP 137/54; PULSE 52; RESP 18; TEMP 36.6; O2SAT 96
--- NOTE | 2022-02-19 04:53 | PC.NURSE ---
Pt is A/O x4. Pt has rested well throughout shift. Pt had 1,250ml in output thus far in shift. Urine has been clear and yellow. Lung sounds have improved at reassessment, no wheezing present. Pt remains on 2L NC, tolerating well with O2 96-98%. Pictures of wounds in chart. Reapplied dressing to right heel, 4x4 with betadine and kerlix wrap.
[2022-02-19 05:00] VITALS: BMI 37.2
[2022-02-19 07:08] LABS: Anion Gap 9.7 mEq/L (5-15); Blood Urea Nitrogen 21 mg/dl (7-17); Calcium 8.6 mg/dl (8.4-10.2); Carbon Dioxide 28 mmol/L (22.0-30.0); Chloride 106 mmol/L (98-107); Creatinine Clearance Estimated 64 mL/min (50-200); Estimated Glomerular Filt Rate 48 ml/min (>60); GFR (African American) 58 ML/MIN (>60); Glucose 101 mg/dl (74-100); Potassium 4.7 mmoL/L (3.5-5.1); Sodium 139 mmol/L (136-145)
--- NOTE | 2022-02-19 07:25 | P.CONPHA_ITS ---
[facility] Pharmacy VTE Monitoring - Patient Demographics Admission date: 02/19/22 Report Date: 02/19/22 Time: 07:25 Allergies/Adverse Reactions: Patient Allergies azithromycin Allergy (Verified 02/14/22 13:06) cefdinir Allergy (Verified 02/14/22 13:06) rash, itching Cephalosporins Allergy (Verified 02/14/22 13:06) chocolate flavor Allergy (Verified 02/14/22 13:06) clarithromycin Allergy (Verified 02/14/22 13:06) clindamycin Allergy (Verified 02/14/22 13:06) codeine Allergy (Verified 02/14/22 13:06) doxycycline Allergy (Verified 02/14/22 13:06) erythromycin base Allergy (Verified 02/14/22 13:06) fexofenadine Allergy (Verified 02/14/22 13:06) fluticasone [From Advair Diskus] Allergy (Verified 02/14/22 13:06) guaifenesin Allergy (Verified 02/14/22 13:06) hydrocodone Allergy (Verified 02/14/22 13:06) imipramine Allergy (Verified 02/14/22 13:06) metoclopramide [From Reglan] Allergy (Verified 02/14/22 13:06) mometasone furoate [From Nasonex] Allergy (Verified 02/14/22 13:06) montelukast [From Singulair] Allergy (Verified 02/14/22 13:06) nabumetone Allergy (Verified 02/14/22 13:06) nitrofurantoin Allergy (Verified 02/14/22 13:06) NSAIDS (Non-Steroidal Anti-Inflamma Allergy (Verified 02/14/22 13:06) paroxetine [From Paxil] Allergy (Verified 02/14/22 13:06) Penicillins Allergy (Verified 02/14/22 13:06) prednisone Allergy (Verified 02/14/22 13:06) pseudoephedrine Allergy (Verified 02/14/22 13:06) salmeterol [From Advair Diskus] Allergy (Verified 02/14/22 13:06) Sulfa (Sulfonamide Antibiotics) Allergy (Verified 02/14/22 13:06) tramadol Allergy (Verified 02/14/22 13:06) Height: 1.6 m Weight: 95.3 kg Patient Problems: Current Active Problems Congestive heart failure (Acute) Chronic wound of extremity (Acute) Wound infection (Acute) - VTE Risk Labs: VTE Related Lab Results Hgb 11.4 g/dL (12.2-16.2) L 02/18/22 13:00 Hct 37.5 % (37.0-47.0) 02/18/22 13:00 Plt Count 174 K/mm3 (142-424) 02/18/22 13:00 BUN 21 mg/dl (7-17) H 02/19/22 06:38 Creatinine 1.10 mg/dl (0.52-1.04) H 02/19/22 06:38 Estimated Creat Clear 64 mL/min (50-200) 02/19/22 06:38 VTE Score: 4 VTE Risk Level: Low Risk Clinical Trial Participant: No - Prophylaxis VTE Prophylaxis Ordered?: Yes Types of VTE Prophylaxis: TEDS Knee High
[2022-02-19 08:00] VITALS: BP 153/68; PULSE 62; RESP 18; TEMP 36.9; O2SAT 95
--- NOTE | 2022-02-19 08:45 | US_ITS ---
FINAL REPORT CLINICAL HISTORY: decreases pedal pulses, non healing wound FINDINGS: ANKLE-BRACHIAL PRESSURE INDICES Pressure indices are as follows: RIGHT LOWER EXTREMITY: Ankle-brachial pressure index: 1.05 Comments: Normal LEFT LOWER EXTREMITY: Ankle-brachial pressure index: 1.20 Comments: Normal IMPRESSION: No evidence of significant obstructive peripheral vascular disease of the lower extremities Reviewed, Interpreted and Dictated by Nadir Hall MD Transcribed by Noni Overton Authenticated and [facility]
--- NOTE | 2022-02-19 08:50 | MR_ITS ---
FINAL REPORT CLINICAL HISTORY: right heel pain, non healing wound, FINDINGS: Multiplanar MR imaging of the right foot was performed without contrast. The bony structures are intact without evidence of fracture, bone bruise or marrow edema. The flexor and extensor tendons are intact. The musculature is intact. The plantar aponeurosis is intact. There is soft tissue inflammation posterior to the calcaneus consistent with a history of a nonhealing wound. A moderate plantar spur is present. IMPRESSION: Soft tissue ulceration posterior to the calcaneus. No evidence of underlying osteomyelitis. Reviewed, Interpreted and Dictated by Nadir Hall MD Transcribed by Rony Barrios Authenticated and [facility]
--- NOTE | 2022-02-19 08:54 | P.CONS_ITS ---
*Admission Date: 02/19/22 <Laura Banegas 02/19/22 09:30> *Reason for consult:: infected chronic wound right foot/heel <Laura Banegas 02/19/22 09:30> *History of present illness: Patient is a 77 -year-old female who was seen and evaluated by podiatry on 02/14/22 for right heel chronic wound. She was admitted on 02/18/22 for heart failure and infected chronic wound right foot. PCP team consulted podiatry for continued ongoing wound management of her right heel. Patient is resting in bed. Alert and oriented. No acute distress noted. Right foot and ankle x-rays results discussed with pain at bedside, she continues to have pain with palpation on right foot and heel, we will obtain MRI /without contrast of right foot, patient has decreased pedal pulses and skin changes to b/l lower extremities, we will obtain KRISS. Labs and wound culture results discusses with patient. No wound debridement until MRI and X-ray results obtained. <UliаннаcarlotaLaura 02/19/22 10:32> [facility] History Medical History: Reports:: Anxiety, Arrhythmia, Cancer (skin cancer), Congestive Heart Failure, Coronary Artery Disease, Depression, Gastroesophageal Reflux Disease(GERD), Heart Murmur Denies:: Diabetes Mellitus Type 1, Diabetes Mellitus Type 2, MRSA <UliаннаcarlotaLaura 02/19/22 09:30> *Have you ever received a pneumonia vaccine?: No <UlimichaelLaura 02/19/22 0 9:30> *Have you received a flu vaccine this season?: No <UlimichaelLaura 02/19/22 09:30> Other Medical History: Reports: Arthritis, Sinus Problems, Thyroid Disease <UlimichaelLaura 02/19/22 09:30> Laterality Cases: Left: Lumpectomy, Right: Total Hip Replacement, Total Knee Replacement, Bilateral: Carpal Tunnel Release <DaLaura andujar 02/19/22 09:30> Other Surgeries: Yes: Cholecystectomy, Hysterectomy-Total, Other <DaLaura andujar 02/19/22 09:30> Amputation: No <Laura Banegas 02/19/22 09:30> [facility]ures: Yes [facility] 09:30> - *Social History Last grade of school completed: High school graduate <[facility] 02/19/22 09:30> Smoking Status: Never smoker <[facility] 02/19/22 09:30> Alcohol Intake: never <[facility] 02/19/22 09:30> *Occupational Status:: retired <[facility] 02/19/22 09:30> Housing: house <[facility] 02/19/22 09:30> *Travel in the last 8 weeks: None <[facility] 02/19/22 09:30> - Psychiatric History Pschychiatric History:: Reports:: Anxiety, Depression <[facility] 02/19/22 09:30> Family Hx:: Coronary Artery Disease, Diabetes, Hypertension, Kidney Disease <[facility] 02/19/22 09:30> Meds Home Medications Medication Instructions Recorded Confirmed Type furosemide 20 mg tablet 20 mg PO DAILY PRN #30 tab 02/07/22 02/18/22 Rx potassium chloride 10 mEq 10 meq PO DAILY 02/14/22 02/19/22 History tablet,extended release Buspirone HCl [Buspirone 7.5mg 7.5 mg PO BID 02/18/22 02/18/22 History tablets] Cetirizine HCl 10 mg PO DAILY 02/18/22 02/18/22 History Famotidine [Acid Insurance Premium Auditor] 20 mg PO DAILY 02/18/22 02/18/22 History Levothyroxine Sodium [Synthroid 25 mcg PO DAILY 02/18/22 02/18/22 History 25mcg (0.025mg) tablet] Mirtazapine 15 mg PO HS 02/18/22 02/19/22 History Pantoprazole Sodium 40 mg PO DAILY 02/18/22 02/18/22 History Sertraline HCl [Zoloft] 100 mg PO DAILY 02/18/22 02/18/22 History dilTIAZem HCl [Diltiazem 180mg 180 mg PO DAILY 02/18/22 02/18/22 History 24Hr ER Cap] nadoloL [Nadolol] 80 mg PO DAILY 02/18/22 02/18/22 History <Melvi Virgen - Vic
--- NOTE | 2022-02-19 08:54 | HMH.ORTHOCON ---
*Admission Date: 02/19/22 <Laura Bangeas 02/19/22 09:30> *Reason for consult:: infected chronic wound right foot/heel <UliаннаLaura van 02/19/22 09:30> *History of present illness: Patient is a 77 -year-old female who was seen and evaluated by podiatry on 02/14/22 for right heel chronic wound. She was admitted on 02/18/22 for heart failure and infected chronic wound right foot. PCP team consulted podiatry for continued ongoing wound management of her right heel. Patient is resting in bed. Alert and oriented. No acute distress noted. Right foot and ankle x-rays results discussed with pain at bedside, she continues to have pain with palpation on right foot and heel, we will obtain MRI /without contrast of right foot, patient has decreased pedal pulses and skin changes to b/l lower extremities, we will obtain KRISS. Labs and wound culture results discusses with patient. No wound debridement until MRI and X-ray results obtained. <DalucascarlotaLaura 02/19/22 10:32> [facility] History Medical History: Reports:: Anxiety, Arrhythmia, Cancer (skin cancer), Congestive Heart Failure, Coronary Artery Disease, Depression, Gastroesophageal Reflux Disease(GERD), Heart Murmur Denies:: Diabetes Mellitus Type 1, Diabetes Mellitus Type 2, MRSA <DaconLaura 02/19/22 09:30> *Have you ever received a pneumonia vaccine?: No <DaLaura andujar 02/19/22 09:30> *Have you received a flu vaccine this season?: No <Laura Banegas 02/19/22 09:30> Other Medical History: Reports: Arthritis, Sinus Problems, Thyroid Disease <Laura Banegas 02/19/22 09:30> Laterality Cases: Left: Lumpectomy, Right: Total Hip Replacement, Total Knee Replacement, Bilateral: Carpal Tunnel Release <Laura Banegas 02/19/22 09:30> Other Surgeries: Yes: Cholecystectomy, Hysterectomy-Total, Other <Laura Banegas 02/19/22 09:30> Amputation: No <Laura Banegas 02/19/22 09:30> Fractures: Yes <Pebbles Banegasher 02/19/22 09:30> - *Social History Last grade of school completed: High school graduate <[facility] 02/19/22 09:30> Smoking Status: Never smoker <[facility] 02/19/22 09:30> Alcohol Intake: never <[facility] 02/19/22 09:30> *Occupational Status:: retired <[facility] 02/19/22 09:30> Housing: house <[facility] 02/19/22 09:30> *Travel in the last 8 weeks: None <[facility] 02/19/22 09:30> - Psychiatric History Pschychiatric History:: Reports:: Anxiety, Depression <[facility] 02/19/22 09:30> Family Hx:: Coronary Artery Disease, Diabetes, Hypertension, Kidney Disease <[facility] 02/19/22 09:30> Meds Home Medications Medication Instructions Recorded Confirmed Type furosemide 20 mg tablet 20 mg PO DAILY PRN #30 tab 02/07/22 02/18/22 Rx potassium chloride 10 mEq 10 meq PO DAILY 02/14/22 02/19/22 History tablet,extended release Buspirone HCl [Buspirone 7.5mg 7.5 mg PO BID 02/18/22 02/18/22 History tablets] Cetirizine HCl 10 mg PO DAILY 02/18/22 02/18/22 History Famotidine [Acid Fabric Worker Fitter] 20 mg PO DAILY 02/18/22 02/18/22 History Levothyroxine Sodium [Synthroid 25 mcg PO DAILY 02/18/22 02/18/22 History 25mcg (0.025mg) tablet] Mirtazapine 15 mg PO HS 02/18/22 02/19/22 History Pantoprazole Sodium 40 mg PO DAILY 02/18/22 02/18/22 History Sertraline HCl [Zoloft] 100 mg PO DAILY 02/18/22 02/18/22 History dilTIAZem HCl [Diltiazem 180mg 180 mg PO DAILY 02/18/22 02/18/22 History 24Hr ER Cap] nadoloL [Nadolol] 80 mg PO DAILY 02/18/22 02/18/22 History <Melvi Virgen - 02/19/22 11:47> Allergies Allergy/AdvReac Type Severity Reaction Status Date / Time azithromycin Allergy Verified 02/14/22 13:06 cefdinir Allergy rash, Verified 02/14/22 13:06 itching Cephalosporins Allergy Verified 02/14/22 13:06 chocolate flavor Allergy Verified 02/14/22 13:06 clarithromycin Allergy Verified 02/14/22 13:06 clindamycin Allergy Verified 02/14/22 13:06 codeine Allergy Verified 02/14/22 13:06
--- NOTE | 2022-02-19 08:57 | HMH.HP ---
*Admission Date: 02/19/22 <Nettie Jay - 02/19/22 08:58> *Chief complaint: Shortness of breath <Nettie Jay - 02/19/22 08:58> *History of present illness: Ms. Hickman is a 77-year-old female with a history of anxiety/depression, osteoarthritis, left ventricular hypertrophy, mitral valve regurgitation, narcolepsy, and history of right hip postoperative infection who presented to [facility] emergency room with increasing shortness of breath. Patient gives a history of being in a nursing facility for greater than a year after revisions of her right hip and ultimate removal due to infection for ongoing rehabilitation. She has been out of the rehab center for greater than a month and living in a small home with her son and grandson caring for her. She also has an ongoing chronic heel wound which has persisted since her hip surgery about a year ago. She did have a podiatry appointment last week for evaluation of the heel wound. With evaluation in the emergency room she had a CTA of the chest which revealed the following: IMPRESSION: 1. Patchy ground-glass infiltrates scattered throughout the bilateral lungs concerning for multifocal pneumonia as can be seen with viral infection and Covid 19. Fluid overload or congestive failure mechanism could present in a similar fashion. Clinical correlation is needed. Follow-up is recommended. 2. There is no filling defect within the main pulmonary trunk, main right or left pulmonary arteries or their 1st order branches. Distal to this, artifact precludes precise exclusion of pulmonary embolism. 3. No evidence of aortic dissection. Ascending thoracic aorta is 3.5 cm in cross-section. Descending thoracic aorta is 3.3 cm in cross-section. 4. 1.8 cm nodule left lobe of thyroid. Follow-up with thyroid ultrasound. 5. Cardiomegaly. 6. Ovoid soft tissue prominence of the anterior superior aspect of the right kidney is suspicious for underlying mass lesion. Follow-up with contrast-enhanced CT, MRI or ultrasound. 7. Diverticular disease is present within the descending colon. No surrounding inflammation or fluid. 8. Gallbladder is surgically absent. No pathologic dilation of the biliary tree is appreciated. COVID test was negative. CBC showed a normal white blood cell count of 5700. Blood chemistries show a potassium of 5.2 with a BUN of 20 and creatinine of 1.10. BNP was 1110. She received 40 mg of Lasix IV and DuoNeb treatment and started on IV Levaquin in the ER. Patient is noted to have multiple medication allergies and/or intolerances. This a.m. Dr. Virgen is currently evaluating the wound with application of dressing. Patient states she is breathing much better since receiving the Lasix. <Nettie Jay 02/19/22 15:25> [facility] History Medical History: Reports:: Anxiety, Arrhythmia, Cancer (skin cancer), Congestive Heart Failure, Coronary Artery Disease, Depression, Gastroesophageal Reflux Disease(GERD), Heart Murmur, Migraine Denies:: Diabetes Mellitus Type 1, Diabetes Mellitus Type 2, MRSA <Nettie Jay 02/19/22 15:16> *Have you ever received a pneumonia vaccine?: No <Nettie Jay 02/19/22 08:58> *Have you received a flu vaccine this season?: No <Nettie Jay 02/19/22 08:58> Other Medical History: Reports: Arthritis, Sinus Problems, Thyroid Disease <Nettie Jay 02/19/22 08:58> Laterality Cases: Left: Lumpectomy, Right: Total Hip Replacement, Total Knee Replacement, Bilateral: Carpal Tunnel Release <Nettie Jay 02/19/22 08:58> Other Surgeries: Yes: Cholecystectomy, Hysterectomy-Total, Other <Nettie Jay 02/19/22 08:58> Amputation: No <Nettie Jay 02/19/22 08:58> Fractures: Yes <Nettie Jay 02/19/22 08:58> Comment: 3 right hip surgeries; kidney stone extraction. <Nettie Jay 02/19/22 15:16> - *Social History Last grade of school completed: High school graduate <Nettie Jay 02/19/22 08:58> Smoking Status: Rich
--- NOTE | 2022-02-19 09:17 | HMH.PHAINT ---
home medication list verified using list from outpatient pharmacy
[2022-02-19 11:26] VITALS: BMI 37.2
[2022-02-19 16:00] VITALS: BP 135/64; PULSE 54; RESP 19; TEMP 36.7; O2SAT 96
[2022-02-19 20:00] VITALS: BP 110/44; PULSE 75; RESP 16; TEMP 37.1; O2SAT 96
[2022-02-20 04:00] VITALS: BP 157/83; PULSE 51; RESP 16; TEMP 36.6; O2SAT 94
--- NOTE | 2022-02-20 05:38 | PC.NURSE ---
pt rested some through the night with mild complaints of pain to BLE; dressing to right foot CDI, no drainage noted; pt up to chair this evening requiring 2 assist and non weight bearing to RLE; pt x&o x4; lung sounds diminished with 02 at 2L pnc, and sats 94-96%; no changes from previous assessment, VSS; no other issues or concerns at this time.
[2022-02-20 05:45] VITALS: BMI 36.6
[2022-02-20 08:00] VITALS: BP 130/57; PULSE 57; RESP 18; TEMP 36.8; O2SAT 93
--- NOTE | 2022-02-20 08:07 | INFXCTL.NOTE ---
Spoke with Stephania Fernandez RN regarding patients recent outpatient leg wound culture results that are positive for MRSA. Placed patient in contact precautions.
--- NOTE | 2022-02-20 08:22 | HMH.ORTHPN ---
Subjective Date: 02/20/22 <Laura Banegas 02/20/22 08:55> Time: 08:00 <Laura Banegas 02/20/22 08:55> Principal diagnosis: Infected chronic wound right foot <Laura Banegas 02/20/22 08:55> Interval history: I was present for bedside wound evaluation and debridement. All orders per Dr. Virgen. Recommend adding Vanco for MRSA coverage, Wcx from 02/14/22. <Melvi Virgen - 02/20/22 13:18> Patient lying in bed alert and oriented. No acute distress noted. Complaining of leg cramps and b/l calf tenderness with palpation. Right foot MRI and KRISS results discussed with patient. Patient made no request. <Laura Banegas - 02/20/22 08:55> PN: Obj Ex Vital signs: Temp Pulse Resp BP Pulse Ox 98.2 F 62 18 130/57 L 93 L 02/20/22 08:00 02/20/22 10:01 02/20/22 08:00 02/20/22 08:00 02/20/22 08:00 <PromiseMelvi - 02/20/22 13:18> Temp Pulse Resp BP Pulse Ox 97.8 F 51 L 16 157/83 H 94 L 02/20/22 04:00 02/20/22 04:00 02/20/22 04:00 02/20/22 04:00 02/20/22 04:00 <Laura Banegas 02/20/22 08:55> - Constitutional no acute distress <Laura Banegas 02/20/22 08:55> - Routine HEENT Exam Head: Present: normocephalic <Laura Banegas 02/20/22 08:55> Eye: Present: EOMI, PERRL <Laura Banegas 02/20/22 08:55> ENT: Present: mucous membranes moist <Laura Banegas 02/20/22 08:55> - Routine Neck Exam Present: supple <Laura Banegas 02/20/22 08:55> - Routine Respiratory Exam Absent: accessory muscle use <Laura Banegas 02/20/22 08:55> - Routine Cardiovascular Exam Present: RRR <Pebbles Banegasher 02/20/22 08:55> - Routine Abdominal Exam Present: soft <Pebbles Banegasher 02/20/22 08:55> - Routine Extremities Exam Present: edema, pulses intact, calf tenderness <Laura Banegas 02/20/22 08:55> - Detailed Lower Extremity Exam Lower leg: Bilateral swelling, Bilateral tenderness <MakenzieLaura 02/20/22 08:55> Foot/Toes: Right calcaneal tenderness, Right erythema, Right swelling, Right tenderness, Right wound (posterior calcaneus), Right pain with passive ROM, Bilateral nail abnormalities <Pebbles Banegasher 02/20/22 08:55> Leg image: 1 - Right posterior calcaneus chronic open wound cleansed, utilizing a curette, the wound was excisionally debrided through skin into sub q layer. Biofilm and fibrotic slough were debrided. There was no drainage or purulence noted. Post debridement the wound measured 2.0 cm x 1.8 cm x 0.3 cm, wound bed was 30 % granular and 70 % yellow fibrotic. <Laura Banegas 02/20/22 08:55> Progress Note: A&P (1) Congestive heart failure Status: Acute (2) Hypothyroidism Status: Acute (3) Pneumonia Status: Acute (4) Cellulitis of right heel Start date: 02/20/22 Start time: 08:00 Status: Acute (5) Renal mass Status: Acute (6) Chronic wound of extremity Start date: 02/20/22 Start time: 08:00 Status: Acute <Laura Banegas 02/20/22 08:22> (1) Congestive heart failure Status: Acute (2) Hypothyroidism Status: Acute (3) Pneumonia Status: Acute (4) Cellulitis of right heel Status: Acute (5) Renal mass Status: Acute (6) Chronic wound of extremity Status: Acute <Melvi Virgen - 02/20/22 13:18> Assessment and Plan for All Diagnoses:: Date of Service: 02/19/22. Procedure(s): MR foot RT wo con. FINDINGS: Multiplanar MR imaging of the right foot was performed without contrast. The bony structures are intact without evidence of fracture, bone bruise or marrow edema. The flexor and extensor tendons are intact. The musculature is intact. The plantar aponeurosis is intact. There is soft tissue inflammation posterior to the calcaneus consistent with a history of a nonhealing wound. A moderate plantar spur is present. IMPRESSION: Soft tissue ulceration posterior to the calcaneus. No evidence of underlying os
--- NOTE | 2022-02-20 09:03 | HMH.PHACONS ---
- Pharmacy Consult Date: 02/20/22 Time: 09:03 Referring provider: DR SYLVESTER Reason for Consult:: VANCOMYCIN DOSING CONSULT Allergies and ADEs:: Allergies Allergy/AdvReac Type Severity Reaction Status Date / Time azithromycin Allergy Verified 02/14/22 13:06 cefdinir Allergy rash, Verified 02/14/22 13:06 itching Cephalosporins Allergy Verified 02/14/22 13:06 chocolate flavor Allergy Verified 02/14/22 13:06 clarithromycin Allergy Verified 02/14/22 13:06 clindamycin Allergy Verified 02/14/22 13:06 codeine Allergy Verified 02/14/22 13:06 doxycycline Allergy Verified 02/14/22 13:06 erythromycin base Allergy Verified 02/14/22 13:06 fexofenadine Allergy Verified 02/14/22 13:06 fluticasone Allergy Verified 02/14/22 13:06 [From Advair Diskus] guaifenesin Allergy Verified 02/14/22 13:06 hydrocodone Allergy Verified 02/14/22 13:06 imipramine Allergy Verified 02/14/22 13:06 metoclopramide [From Reglan] Allergy Verified 02/14/22 13:06 mometasone furoate Allergy Verified 02/14/22 13:06 [From Nasonex] montelukast [From Singulair] Allergy Verified 02/14/22 13:06 nabumetone Allergy Verified 02/14/22 13:06 nitrofurantoin Allergy Verified 02/14/22 13:06 NSAIDS (Non-Steroidal Allergy Verified 02/14/22 13:06 Anti-Inflamma paroxetine [From Paxil] Allergy Verified 02/14/22 13:06 Penicillins Allergy Verified 02/14/22 13:06 prednisone Allergy Verified 02/14/22 13:06 pseudoephedrine Allergy Verified 02/14/22 13:06 salmeterol Allergy Verified 02/14/22 13:06 [From Advair Diskus] Sulfa (Sulfonamide Allergy Verified 02/14/22 13:06 Antibiotics) tramadol Allergy Verified 02/14/22 13:06 Home Medications:: Home Medications Medication Instructions Recorded Confirmed Type furosemide 20 mg tablet 20 mg PO DAILY PRN #30 tab 02/07/22 02/18/22 Rx potassium chloride 10 mEq 10 meq PO DAILY 02/14/22 02/19/22 History tablet,extended release Buspirone HCl [Buspirone 7.5mg 7.5 mg PO BID 02/18/22 02/18/22 History tablets] Cetirizine HCl 10 mg PO DAILY 02/18/22 02/18/22 History Famotidine [Acid Epitaxial Reactor Operator] 20 mg PO DAILY 02/18/22 02/18/22 History Levothyroxine Sodium [Synthroid 25 mcg PO DAILY 02/18/22 02/18/22 History 25mcg (0.025mg) tablet] Mirtazapine 15 mg PO HS 02/18/22 02/19/22 History Pantoprazole Sodium 40 mg PO DAILY 02/18/22 02/18/22 History Sertraline HCl [Zoloft] 100 mg PO DAILY 02/18/22 02/18/22 History dilTIAZem HCl [Diltiazem 180mg 180 mg PO DAILY 02/18/22 02/18/22 History 24Hr ER Cap] nadoloL [Nadolol] 80 mg PO DAILY 02/18/22 02/18/22 History Height: 1.6 m Weight: 93.758 kg Medical History: Reports:: Anxiety, Arrhythmia, Cancer (skin cancer), Congestive Heart Failure, Coronary Artery Disease, Depression, Gastroesophageal Reflux Disease(GERD), Heart Murmur, Migraine Denies:: Diabetes Mellitus Type 1, Diabetes Mellitus Type 2, MRSA Assessment and Plan (1) Congestive heart failure Status: Acute Qualifiers: Heart failure type: unspecified Heart failure chronicity: acute Qualified Code(s): I50.9 - Heart failure, unspecified Category: Medical Code(s): I50.9 - Heart failure, unspecified (2) Hypothyroidism Status: Acute Category: Medical Code(s): E03.9 - Hypothyroidism, unspecified (3) Pneumonia Status: Acute Category: Medical Code(s): J18.9 - Pneumonia, unspecified organism (4) Cellulitis of right heel Start date: 02/20/22 Start time: 08:00 Status: Acute Category: Medical Code(s): L03.115 - Cellulitis of right lower limb (5) Renal mass Status: Acute Category: Medical Code(s): N28.89 - Other specified disorders of kidney and ureter (6) Chronic wound of extremity Start date: 07/12/22 Start time: 08:00 Status: Acute Category: Medical - Assessment and plan all Dx Assessment and Plan for all problems:: Pharmacokinetic dosing service Objective:
--- NOTE | 2022-02-20 09:05 | US_ITS ---
FINAL REPORT TECHNIQUE: Ultrasound images of the kidneys and bladder were obtained. CLINICAL HISTORY: right renal mass FINDINGS: The right kidney measures 10.9 cm in length. It is normal in echogenicity. There is no hydronephrosis. The left kidney measures 9.3 cm in length. It is normal in echogenicity. There is no hydronephrosis. The spleen measures 14.7 cm. IMPRESSION: Splenomegaly. Reviewed, Interpreted and Dictated by Nadir Hall MD Transcribed by Nettie Cornell Authenticated and [facility]
--- NOTE | 2022-02-20 09:06 | XR_ITS ---
FINAL REPORT CLINICAL HISTORY: f/u, atelectasis COMPARISON: 02/18/2022 FINDINGS: TWO-VIEW CHEST The heart size is normal. The mediastinum is normal. The lungs are underinflated with bibasilar scar or atelectasis, stable. There is no pneumothorax. IMPRESSION: Stable bibasilar scar or atelectasis. Reviewed, Interpreted and Dictated by Nadir Hall MD Transcribed by Nettie Cornell Authenticated and [facility]
--- NOTE | 2022-02-20 09:30 | HMH.ACPN2 ---
<Nettie Jay - Last Filed: 02/20/22 09:30> Internal Medicine - PN: Subj *Date: 02/20/22 *Time: 09:30 Interval history: Patient states her right heel aches. She also has a headache this morning. She was able to eat a little breakfast. She has had no respiratory distress. She continues to diurese with the Lasix. She was out of bed and sat in the wheelchair yesterday. Renal function is stable and electrolytes are normal This a.m..MRI of the right foot showed soft tissue ulceration posterior to the calcaneus with no evidence of underlying osteomyelitis. Extremity KRISS reveals no evidence of significant obstruction of the peripheral vascular of the lower extremities. Patient has been seen this a.m. by podiatry with dressing changes.Patient has been started on vancomycin for previous cultures revealing MRSA. Exam Vital signs and Labs for Last 24 Hours: Temp Pulse Resp BP Pulse Ox 98.2 F 57 L 18 130/57 L 93 L 02/20/22 08:00 02/20/22 08:00 02/20/22 08:00 02/20/22 08:00 02/20/22 08:00 I & O for Last 24 hours: Intake & Output 02/17/22 02/18/22 02/19/22 02/20/22 11:59 11:59 11:59 11:59 Intake Total 120 / 120 960 / 960 Output Total 1250 / 1250 500 / 500 Balance -1130 / -1130 460 / 460 Weight 210 lb 1.608 oz 206 lb 11.2 oz - Constitutional no acute distress - *Routine Respiratory Exam Present: crackles (Bibasilar) - *Routine Cardiovascular Exam Present: RRR - *Routine Abdominal Exam Present: soft, normoactive bowel sounds. Absent: tenderness, distended - *Routine Extremities Exam Absent: edema Comments: Right heel dressing is new and is clean and dry - *Routine Neurological Exam Present: alert, oriented X3 Assessment and Plan (1) Congestive heart failure Status: Acute Qualifiers: Heart failure type: unspecified Heart failure chronicity: acute Qualified Code(s): I50.9 - Heart failure, unspecified Category: Medical Code(s): I50.9 - Heart failure, unspecified (2) Hypothyroidism Status: Acute Category: Medical Code(s): E03.9 - Hypothyroidism, unspecified (3) Pneumonia Status: Acute Category: Medical Code(s): J18.9 - Pneumonia, unspecified organism (4) Cellulitis of right heel Start date: 02/20/22 Start time: 08:00 Status: Acute Category: Medical Code(s): L03.115 - Cellulitis of right lower limb (5) Renal mass Status: Acute Category: Medical Code(s): N28.89 - Other specified disorders of kidney and ureter (6) Chronic wound of extremity Start date: 02/20/22 Start time: 08:00 Status: Acute Category: Medical - Assessment and plan all Dx Assessment and Plan for all problems:: To continue with wound care. We will have a repeat chest x-ray today. <Ted Matute - Last Filed: 02/20/22 17:45> Internal Medicine - PN: Subj *Date: 02/20/22 *Time: 17:42 Exam Vital signs and Labs for Last 24 Hours: Temp Pulse Resp BP Pulse Ox 98.6 F 48 L 18 132/52 L 96 02/20/22 15:36 02/20/22 15:36 02/20/22 15:36 02/20/22 15:36 02/20/22 15:36 I & O for Last 24 hours: Intake & Output 02/18/22 02/19/22 02/20/22 02/21/22 11:59 11:59 11:59 11:59 Intake Total 120 / 120 960 / 960 420 / 420 Output Total 1250 / 1250 500 / 500 700 / 700 Balance -1130 / -1130 460 / 460 -280 / -280 Weight 210 lb 1.608 oz 206 lb 11.2 oz Microbiology Reports for the Last 24 Hours: Microbiology 02/18/22 13:00 Blood Blood Culture - Preliminary NO GROWTH AFTER 48 HOURS 02/18/22 13:04 Blood Blood Culture - Preliminary NO GROWTH AFTER 48 HOURS Assessment and Plan (1) Congestive heart failure Status: Acute Qualifiers: Heart failure type: unspecified Heart failure chronicity: acute Qualified Code(s): I50.9 - Heart failure, unspecified Category: Medical Code(s): I50.9 - Heart failure, unspecified (2) Hypothyroidism St
[2022-02-20 10:01] VITALS: PULSE 62
--- NOTE | 2022-02-20 10:25 | PC.NURSE ---
Pt off floor for cxr at this time.
[2022-02-20 15:36] VITALS: BP 132/52; PULSE 48; RESP 18; TEMP 37; O2SAT 96
--- NOTE | 2022-02-20 19:33 | PC.NURSE ---
Pt a/o x 4. NAD at this time. Pt placed in contact precautions for MRSA. Sign on door. Pt's dsg to rle was changed this shift. Pt did have a BM as well this shift and has been up out of bed. CB in reach. VSS
[2022-02-20 20:00] VITALS: BP 124/56; PULSE 61; RESP 20; TEMP 37; O2SAT 95
[2022-02-21 04:00] VITALS: BP 101/72; PULSE 56; RESP 18; TEMP 36.7; O2SAT 97
[2022-02-21 04:28] VITALS: BMI 36.1
--- NOTE | 2022-02-21 05:25 | PC.NURSE ---
pt has been restless most of the night and has been up on side of bed reading her bible for quite some time; pt very pleasant and conversational; pt has been up and down several times through the night; pt stated that tylenol makes her that way but she wanted it for pain; VSS; dressing to RLE CDI; + pedal pulses noted; pt with purewick in place for stress and urge incontinence; pt alert and oriented x4; skin pwd; moderate 2+ edema noted to BLE; no other issues or concerns noted at this time.
[2022-02-21 06:55] LABS: MANUAL DIFFERENTIAL MANUAL DIFFERENTIAL (MANUAL DIFF)
[2022-02-21 07:00] LABS: Basophils # 0.1 K/mm3 (0-0.2); Eosinophils # 0.3 K/mm3 (0.0-0.4); Eosinophils % 6.4 % (0.1-12.0); Hematocrit 34.6 % (37.0-47.0); Hemoglobin 10.6 g/dL (12.2-16.2); Lymphocytes # 1.2 K/mm3 (0.7-4.5); Lymphocytes % 23.1 % (10-50); Mean Corpuscular HGB Conc 30.8 g/dL (31.8-35.4); Mean Corpuscular Hemoglobin 26.3 pg (27.0-31.2); Mean Corpuscular Volume 85.3 fl (81-99); Mean Platelet Volume 9.7 fl (7.4-10.4); Monocytes # 0.4 K/mm3 (0.1-1.0); Monocytes % 8.3 % (1.7-9.3); Neutrophils # 3.2 K/mm3 (1.8-7.8); Neutrophils % 61.1 % (37.0-80.0); Platelet Count 165 K/mm3 (142-424); Red Blood Count 4.05 M/mm3 (4.20-5.40); Red Cell Distribution Width 16.3 % (11.5-17.5); White Blood Count 5.3 K/mm3 (4.8-10.8)
[2022-02-21 07:05] LABS: Chloride 104 mmol/L (98-107)
[2022-02-21 07:06] LABS: Potassium 4.4 mmoL/L (3.5-5.1); Sodium 138 mmol/L (136-145)
[2022-02-21 07:09] LABS: Anion Gap 9.4 mEq/L (5-15); Blood Urea Nitrogen 25 mg/dl (7-17); Calcium 8.7 mg/dl (8.4-10.2); Carbon Dioxide 29 mmol/L (22.0-30.0); Creatinine Clearance Estimated 53 mL/min (50-200); Estimated Glomerular Filt Rate 40 ml/min (>60); GFR (African American) 48 ML/MIN (>60); Glucose 140 mg/dl (74-100)
[2022-02-21 07:59] LABS: Anisocytosis 1+; Hypochromasia 1+; Lymphocytes % 28 % (10-50); Monocytes % 2 % (2-9); Neutrophils % 70 % (42-76); Platelet Estimate Normal; Total Cells Counted 100
[2022-02-21 08:00] VITALS: BP 154/64; PULSE 55; RESP 18; TEMP 36.9; O2SAT 94
--- NOTE | 2022-02-21 08:10 | HMH.ACPN2 ---
<Alexandra Nguyen - Last Filed: 02/21/22 08:10> Internal Medicine - PN: Subj *Date: 02/21/22 *Time: 08:10 Interval history: Patient states she is discombobulated this morning. She states she is having pain in her right hip and leg, she has been agitated all morning, and she is just generally not feeling well. Exam Vital signs and Labs for Last 24 Hours: Temp Pulse Resp BP Pulse Ox 98.0 F 56 L 18 101/72 L 97 02/21/22 04:00 02/21/22 04:00 02/21/22 04:00 02/21/22 04:00 02/21/22 04:00 Laboratory Results - last 24 hr 02/21/22 06:40: WBC 5.3, RBC 4.05 L, Hgb 10.6 L, Hct 34.6 L, MCV 85.3, MCH 26.3 L, MCHC 30.8 L, RDW 16.3, Plt Count 165, MPV 9.7, Neut % (Auto) 61.1, Lymph % (Auto) 23.1, Mason % (Auto) 8.3, Eos % (Auto) 6.4, Baso % (Auto) 1.0, Neut # (Auto) 3.2, Lymph # (Auto) 1.2, Mason # (Auto) 0.4, Eos # (Auto) 0.3, Baso # (Auto) 0.1, Total Counted 100, Neutrophils % (Manual) 70, Lymphocytes % (Manual) 28, Monocytes % (Manual) 2, Platelet Estimate Normal, Hypochromasia 1+, Anisocytosis 1+ 02/21/22 06:40: Sodium 138, Potassium 4.4, Chloride 104, Carbon Dioxide 29, Anion Gap 9.4, BUN 25 H, Creatinine 1.30 H, Estimated Creat Clear 53, Estimated GFR 40 L, Est GFR ( Amer) 48 L, Glucose 140 H, Calcium 8.7 I & O for Last 24 hours: Intake & Output 02/18/22 02/19/22 02/20/22 02/21/22 11:59 11:59 11:59 11:59 Intake Total 120 / 120 960 / 960 660 / 660 Output Total 1250 / 1250 500 / 500 700 / 700 Balance -1130 / -1130 460 / 460 -40 / -40 Weight 210 lb 1.608 oz 206 lb 11.2 oz 203 lb 9 oz Microbiology Reports for the Last 24 Hours: Microbiology 02/18/22 13:00 Blood Blood Culture - Preliminary NO GROWTH AFTER 48 HOURS 02/18/22 13:04 Blood Blood Culture - Preliminary NO GROWTH AFTER 48 HOURS - Constitutional no acute distress - *Routine Respiratory Exam Present: CTA bilaterally - *Routine Cardiovascular Exam Present: RRR - *Routine Abdominal Exam Present: soft, normoactive bowel sounds. Absent: tenderness - *Routine Extremities Exam Present: edema. Absent: cyanosis, clubbing - *Routine Skin Exam Present: warm. Absent: rash Comments: Dressing in place on right foot - *Routine Neurological Exam Present: alert, oriented X3 Assessment and Plan (1) Congestive heart failure Status: Acute Qualifiers: Heart failure type: unspecified Heart failure chronicity: acute Qualified Code(s): I50.9 - Heart failure, unspecified Category: Medical Code(s): I50.9 - Heart failure, unspecified (2) Hypothyroidism Status: Acute Category: Medical Code(s): E03.9 - Hypothyroidism, unspecified (3) Pneumonia Status: Acute Category: Medical Code(s): J18.9 - Pneumonia, unspecified organism (4) Cellulitis of right heel Start date: 02/20/22 Start time: 08:00 Status: Acute Category: Medical Code(s): L03.115 - Cellulitis of right lower limb (5) Renal mass Status: Acute Category: Medical Code(s): N28.89 - Other specified disorders of kidney and ureter (6) Chronic wound of extremity Start date: 02/20/22 Start time: 08:00 Status: Acute Category: Medical - Assessment and plan all Dx Assessment and Plan for all problems:: Respiratory status is stable. Renal function has increased slightly. Blood cultures have showed no growth at 48 hours. Renal ultrasound showed only splenomegaly. Chest x-ray showed stable bibasilar scarring versus atelectasis. Will discuss further care with Dr. Matute. <Ted Matute - Last Filed: 02/21/22 12:11> Internal Medicine - PN: Subj *Date: 02/21/22 *Time: 12:10 Exam Vital signs and Labs for Last 24 Hours: Temp Pulse Resp BP Pulse Ox 98.4 F 55 L 18 154/64 H 94 L 02/21/22 08:00 02/21/22 08:00 02/21/22 08:00 02/21/22 08:00 02/21/22 08:00 Laboratory Results - last 24 hr 02/21/22 06:40: WBC 5.3, RBC 4.05 L, Hgb 10.6 L
--- NOTE | 2022-02-21 09:04 | HMH.ORTHPN ---
Subjective Date: 02/21/22 <Laura Banegas - 02/21/22 09:30> Time: 08:00 <Laura Banegas - 02/21/22 09:30> Principal diagnosis: Infected chronic wound right foot <Laura Banegas - 02/21/22 09:30> Interval history: Patient seen and evaluated by SLIDE DEVELOPER and myself. Nails trimmed x10. Wound debrided sharply excisionally with curette through skin only. See wound measurements for details. Stable for podiatry discharge. Has follow-up scheduled 03/01/[address] Virgen. Home health care orders: Optifoam silver (dispensed remaining packaged to patient) apply to right heel wound followed by dry sterile dressing. Dressing changes Saturday/3 times weekly. Okay to weight-bear as tolerated in a postop surgical shoe with walker. <Melvi Virgen - 02/21/22 10:51> Patient resting in bed. Has no complaints this morning. No acute distress noted. Right heel wound care and toenails trimmed. Discharge instruction on wound dressing change done by . Patient made no request. <Laura Banegas - 02/21/22 09:30> PN: Obj Ex Vital signs: Temp Pulse Resp BP Pulse Ox 98.4 F 55 L 18 154/64 H 94 L 02/21/22 08:00 02/21/22 08:00 02/21/22 08:00 02/21/22 08:00 02/21/22 08:00 <Melvi Virgen - 02/21/22 10:51> Temp Pulse Resp BP Pulse Ox 98.4 F 55 L 18 154/64 H 94 L 02/21/22 08:00 02/21/22 08:00 02/21/22 08:00 02/21/22 08:00 02/21/22 08:00 <Laura Banegas - 02/21/22 09:30> - Constitutional no acute distress <Laura Banegas - 02/21/22 09:30> - Routine HEENT Exam Head: Present: normocephalic <UliаннаLaura van - 02/21/22 09:30> - Routine Neck Exam Present: supple <Laura Banegas 02/21/22 09:30> - Routine Respiratory Exam Absent: accessory muscle use <Pebbles Banegasher 02/21/22 09:30> - Routine Cardiovascular Exam Present: RRR <Pebbles Banegasher 02/21/22 09:30> - Routine Abdominal Exam Present: soft <Pebbles Banegasher 02/21/22 09:30> - Routine Extremities Exam Present: pulses intact, tenderness. Absent: cyanosis <Pebbles Banegasher 02/21/22 09:30> - Detailed Lower Extremity Exam Foot/Toes: Right calcaneal tenderness (right heel wound), Right wound, Right pain with passive ROM, Bilateral nail abnormalities <Laura Banegas 02/21/22 09:30> Leg image: 1 - Right posterior calcaneus chronic open wound cleansed, utilizing a curette, the wound was excisionally debrided through skin into sub q layer. Biofilm and fibrotic slough were debrided. There was no drainage or purulence noted. Post debridement the wound measured 2.0 cm x 1.8 cm x 0.3 cm, wound bed was 50% granular and 50 % yellow fibrotic. Silver Ag+ dressing applied. <Laura Banegas 02/21/22 09:30> Progress Note: A&P (1) Congestive heart failure Status: Acute (2) Hypothyroidism Status: Acute (3) Pneumonia Status: Acute (4) Cellulitis of right heel Start date: 02/21/22 Start time: 08:00 Status: Acute (5) Renal mass Status: Acute (6) Chronic wound of extremity Start date: 02/21/22 Start time: 08:00 Status: Acute (7) Onychodystrophy Start date: 02/21/22 Start time: 08:00 Status: Acute (8) Cellulitis of left anterior lower leg Start date: 02/21/22 Start time: 08:00 Status: Acute (9) Open wound of left lower leg Start date: 02/21/22 Start time: 08:00 Status: Acute (10) Edema of both lower extremities Start date: 02/21/22 Start time: 08:00 Status: Acute (11) Open wound of right heel Start date: 02/21/22 Start time: 08:00 Status: Acute <Laura Banegas - 02/21/22 10:09> (1) Congestive heart failure Status: Acute (2) Hypothyroidism Status: Acute (3) Pneumonia Status: Acute (4) Cellulitis of right heel Status: Acute (5) Renal mass Status: Acute (6) Chronic wound of extremity Status: Acute (7) Onychodystr
--- NOTE | 2022-02-21 09:06 | SW/DCPLANNER ---
Addendum entered by Meli Gee 02/21/22 10:38: Mojgan stated that patient information/order has been reviewed and services will be resumed and dressing changes started. Original Note: [facility] The plan is for this patient to return back home today. Dr Virgen stated that patient will require dressing changes at time of discharge. Patient information/order for dressing changes will be faxed to Mojgan whyte/ [employer] I will follow up with Mojgan when patient information/order is reviewed.
--- NOTE | 2022-02-21 09:51 | PC.NURSE ---
pt recieving iv abx prior to dc
--- NOTE | 2022-02-21 11:50 | PC.NURSE ---
thoroughly went over dc packet with pt, questions and concerns addressed, pharmacy spoke with pt also. awaiting for pts ride
--- NOTE | 2022-02-21 12:11 | PC.NURSE ---
pt took to vehicle via wheelchair
--- NOTE | 2022-02-21 12:16 | PC.NURSE ---
Pt sent home with optical silver and post op shoe.
--- NOTE | 2022-02-21 12:18 | CARE MANAGER ---
I spoke with patient this morning in regards to needing a walker. Patient states that she has a rollator, but the seat is broken. I spoke with Jordy [facility], insurance paid for the rollator in 2018 so insurance will not pay for another walker of any kind at this time. Rolling Walker is $65 and rollator is $80. Patient states that she will not be able to purchase, she will try to use her rollator that she has at home. Jordy is looking into what a seat will cost to replace the broken one that she has. Patient is discharged, Jordy will contact patient with seat cost.
--- NOTE | 2022-02-22 14:41 | CARE MANAGER ---
Contacted patient related to follow up from hospital discharge. Patient states she is having shortness of breath but not as bad as it was. She hasn't picked up her antibiotics yet, but will today. She is aware of her follow up appointments and denies any questions or concerns. SAVANNA Shields
--- NOTE | 2022-02-22 23:44 | HMH.DCSUM ---
General - General Admission date:: 02/18/22 <Ted Matute - 02/27/22 22:05> 02/18/22 <Alexandra Nguyen - 02/22/22 23:53> Discharge date: 02/21/22 <Alexandra Nguyen - 02/22/22 23:53> HPI HPI: Ms. Bliss is a 77-year-old female with a history of anxiety/depression, osteoarthritis, left ventricular hypertrophy, mitral valve regurgitation, narcolepsy, and history of right hip postoperative infection who presented to [facility] emergency room with increasing shortness of breath. Patient gives a history of being in a nursing facility for greater than a year after revisions of her right hip and ultimate removal due to infection for ongoing rehabilitation. She has been out of the rehab center for greater than a month and living in a small home with her son and grandson caring for her. She also has an ongoing chronic heel wound which has persisted since her hip surgery about a year ago. She did have a podiatry appointment last week for evaluation of the heel wound. With evaluation in the emergency room she had a CTA of the chest which revealed the following: IMPRESSION: 1. Patchy ground-glass infiltrates scattered throughout the bilateral lungs concerning for multifocal pneumonia as can be seen with viral infection and Covid 19. Fluid overload or congestive failure mechanism could present in a similar fashion. Clinical correlation is needed. Follow-up is recommended. 2. There is no filling defect within the main pulmonary trunk, main right or left pulmonary arteries or their 1st order branches. Distal to this, artifact precludes precise exclusion of pulmonary embolism. 3. No evidence of aortic dissection. Ascending thoracic aorta is 3.5 cm in cross-section. Descending thoracic aorta is 3.3 cm in cross-section. 4. 1.8 cm nodule left lobe of thyroid. Follow-up with thyroid ultrasound. 5. Cardiomegaly. 6. Ovoid soft tissue prominence of the anterior superior aspect of the right kidney is suspicious for underlying mass lesion. Follow-up with contrast-enhanced CT, MRI or ultrasound. 7. Diverticular disease is present within the descending colon. No surrounding inflammation or fluid. 8. Gallbladder is surgically absent. No pathologic dilation of the biliary tree is appreciated. COVID test was negative. CBC showed a normal white blood cell count of 5700. Blood chemistries show a potassium of 5.2 with a BUN of 20 and creatinine of 1.10. BNP was 1110. She received 40 mg of Lasix IV and DuoNeb treatment and started on IV Levaquin in the ER. Patient is noted to have multiple medication allergies and/or intolerances. This a.m. Dr. Virgen is currently evaluating the wound with application of dressing. Patient states she is breathing much better since receiving the Lasix. <Alexandra Nguyen - 02/22/22 23:53> Hospital Course Hospital Course: An KRISS and additional imaging was ordered of her right heel wound and she was continued on antibiotics for pneumonia. She did feel better after diuresis with Lasix. Her outpatient echocardiogram report is still pending. Dr. Matute reviewed the CT of her chest and felt the infiltrates were likely from pulmonary edema rather than from a pneumonia as she was afebrile and her white count was normal. Her COVID test was negative. She was on Levaquin primarily for her heel wound. Her CT scan also suggested a mass in the right kidney, therefore an ultrasound was ordered. Dr. Virgen performed a wound evaluation and debridement and recommended adding vancomycin for MRSA coverage. The MRI of her foot showed no evidence of fracture, bone bruise, or marrow edema. There was soft tissue inflammation posterior to the calcaneus consistent with a history of a nonhealing wound. There was no underlying osteomyelitis. Her KRISS showed no evidence of significant obstructive peripheral vascular disease. She had a renal ultrasound which showed splenomegaly but no kidney
== END 2022-02-21 12:12 | disposition home health service (06) ==
LOC: ER 13:25 → 2ND 18:10
PROVIDERS: Podiatrist; Admitting Provider Family Medicine; Emergency Provider Emergency Medicine; PCP Physician Assistant; Visit Provider Family Medicine
DX: J18.9 Pneumonia, unspecified organism (principal); I51.7 Cardiomegaly; G47.419 Narcolepsy without cataplexy; I50.9 Heart failure, unspecified; I25.10 Atherosclerotic heart disease of native coronary artery without angina pectoris; I34.1 Nonrheumatic mitral (valve) prolapse; I11.0 Hypertensive heart disease with heart failure; K21.9 Gastro-esophageal reflux disease without esophagitis; E03.9 Hypothyroidism, unspecified; L03.115 Cellulitis of right lower limb; Z79.899 Other long term (current) drug therapy; L97.411 Non-pressure chronic ulcer of right heel and midfoot limited to breakdown of skin; Z88.8 Allergy status to other drugs, medicaments and biological substances; Z82.49 Family history of ischemic heart disease and other diseases of the circulatory system; Z20.822 Contact with and (suspected) exposure to COVID-19
CPT/HCPCS: 11042; G0378; 36415; 71045; 71046; 71275; 73718; 76770; 80048; 80053; 83605; 83880; 84484; 85007; 85014; 85018; 85025; 85048; 85049; 87040; 93005; 93923; 99285; C9803; J1956; Q9967; U0003; U0005

== ENCOUNTER 2022-05-25 14:38 | Emergency (ER) | payer MEDICARE, MEDICAID, SELFPAY ==
[2022-05-25] VITALS (9 sets, daily range): BP systolic 151–167; BP diastolic 52–72; PULSE 52–57; RESP 16–20; TEMP 37; O2SAT 93–95; BMI 36.3
--- NOTE | 2022-05-25 14:38 | ECG_ITS ---
APPROVED REPORT Exam: Resting ECG HR:53 bpm ECG Measurements Heart Rate 53 AXES SC 162 P 39 QRSd 85 QRS -17 QT 442 T 14 QTc 425 Conclusion SINUS BRADYCARDIA BORDERLINE ECG UNCONFIRMED REPORT Electronically signed by : Lance Santillan MD 05/26/2022 08:30:07
--- NOTE | 2022-05-25 14:53 | HMH.EDGENADL ---
Discharge Plan Disposition Patient Disposition: Home, Self-Care Condition: Good Prescriptions Prescriptions: New levofloxacin 500 mg tablet 500 mg PO DAILY 7 Days Qty: 7 0RF No Action gabapentin 100 mg capsule 100 mg PO DAILY loratadine 10 mg tablet 10 mg PO DAILY famotidine 20 mg tablet 20 mg PO DAILY levothyroxine [Synthroid] 25 mcg tablet 25 mcg PO DAILY Qty: 30 0RF sertraline 100 mg tablet 150 mg PO DAILY Qty: 45 0RF buspirone 5 MG tablet 5 mg PO BID mirtazapine 15 MG tablet 7.5 mg PO HS diltiazem HCl 180 MG capsule,extended release 24hr 180 mg PO DAILY nadolol 80 MG tablet 80 mg PO DAILY pantoprazole 40 MG tablet,delayed release (DR/EC) 40 mg PO DAILY Referrals Follow up/Referrals: Alexandra Nguyen PA [Primary Care Provider] - See instructions Activity Restrictions/Add. Instructions Additional Instructions/Restrictions: Levaquin as prescribed. Follow-up with primary care provider next week, call Saturday to make appointment. Additional instructions for CHEST PAIN: See your physician as soon as possible for further evaluation. Return immediately if worsening chest pain, vomiting, shortness of breath, fever, coughing of blood. Clinical Impressions Clinical Impression: Atypical chest pain, Congestive heart failure, Acute left otitis media Discharge ED Provider: Jerad Davila General Adult HPI General Chief complaint: Chest Pain Stated complaint: cp Time Seen by Provider: 05/25/22 15:40 History of Present Illness HPI narrative: The patient is sent to the emergency department by Alexandra Nguyen for chest pain. Patient states that my heart has been hurting for 2 to 3 weeks. She says she has a constant hurt in her left inframammary area. She also says that she has a left earache for the past 2 to 3 weeks, a cough, and a sore throat. Denies fever. Denies sputum production. States that she has chronic sinus problems and has to get her nose cleaned out by her ENT every month but the last time she missed it because she was in the hospital. She says that she was hospitalized a month ago for congestive heart failure. Related Data Home Medications Medication Instructions Recorded Confirmed buspirone 5 mg tablet 5 mg PO BID Anxiety 12/20/20 12/20/21 diltiazem HCl 180 mg 180 mg PO DAILY afib 12/20/20 12/20/21 capsule,extended release 24 hr mirtazapine 15 mg tablet 7.5 mg PO HS Appetite suppressant 12/20/20 12/20/21 nadolol 80 mg tablet 80 mg PO DAILY Hypertension 12/20/20 12/20/21 pantoprazole 40 mg tablet,delayed 40 mg PO DAILY GERD 09/06/21 12/20/21 release famotidine 20 mg tablet 20 mg PO DAILY 12/20/21 12/20/21 gabapentin 100 mg capsule 100 mg PO DAILY 12/20/21 12/20/21 loratadine 10 mg tablet 10 mg PO DAILY 12/20/21 12/20/21 Previous Rx's Medication Instructions Recorded levothyroxine 25 mcg tablet 25 mcg PO DAILY hypothyroidism #30 11/18/20 (Synthroid) tabs sertraline 100 mg tablet 150 mg PO DAILY Depression #45 tabs 11/18/20 levofloxacin 500 mg tablet 500 mg PO DAILY 7 days #7 tabs 05/25/22 Allergies Allergy/AdvReac Type Severity Reaction Status Date / Time pseudoephedrine Allergy Severe Difficulty Verified 12/20/21 13:31 Breathing azithromycin Allergy Unknown Unknown Verified 12/20/21 13:31 allergy reaction Cephalosporins Allergy Unknown Gastrointestinal Verified 12/20/21 13:31 Upset chocolate flavor Allergy Unknown Unknown Verified 12/20/21 13:31 allergy reaction clarithromycin Allergy Unknown Unknown Verified 12/20/21 13:31 allergy reaction erythromycin base Allergy Unknown Rash Verified 12/20/21 13:31 guaifenesin Allergy Unknown Unknown Verified 12/20/21 13:31 allergy reaction montelukast Allergy Unknown Numbness Verified 12/20/21 13:31 nabumetone [From Relafen] Allergy Unknown Rash Verified 12/20/21 13:31 nitrofurantoin Allergy Unknown Unknown Verif
--- NOTE | 2022-05-25 14:57 | XR_ITS ---
FINAL REPORT CLINICAL HISTORY: chest pain COMPARISON: 02/20/2022 FINDINGS: ABDOMEN SINGLE VIEW There is cardiomegaly with worsening pulmonary vascular congestion. An elevated right hemidiaphragm is again identified. There are right base opacities, favor atelectasis. No abnormal calcification is seen. IMPRESSION: Cardiomegaly with worsening pulmonary vascular congestion. Right base opacities, favor atelectasis. Reviewed, Interpreted and Dictated by Ulises Izaguirre III, MD Transcribed by Nettie Cornell Authenticated and [facility]
--- NOTE | 2022-05-25 14:57 | PC.NURSE ---
IV established and blood sent to the lab
[2022-05-25 15:03] LABS: Basophils # 0.1 K/mm3 (0-0.2); Eosinophils # 0.4 K/mm3 (0.0-0.4); Eosinophils % 6.4 % (0.1-12.0); Hematocrit 35.7 % (37.0-47.0); Hemoglobin 11.6 g/dL (12.2-16.2); Lymphocytes # 1.3 K/mm3 (0.7-4.5); Lymphocytes % 20.8 % (10-50); Mean Corpuscular HGB Conc 32.3 g/dL (31.8-35.4); Mean Corpuscular Volume 80.5 fl (81-99); Mean Platelet Volume 9.8 fl (7.4-10.4); Monocytes # 0.4 K/mm3 (0.1-1.0); Monocytes % 5.7 % (1.7-9.3); Neutrophils # 4.2 K/mm3 (1.8-7.8); Neutrophils % 66.1 % (37.0-80.0); Platelet Count 189 K/mm3 (142-424); Red Blood Count 4.44 M/mm3 (4.20-5.40); Red Cell Distribution Width 17.1 % (11.5-17.5); White Blood Count 6.3 K/mm3 (4.8-10.8)
[2022-05-25 15:04] LABS: Chloride 103 mmol/L (98-107); Sodium 141 mmol/L (136-145)
[2022-05-25 15:07] LABS: Blood Urea Nitrogen 24 mg/dl (7-17); Carbon Dioxide 30 mmol/L (22.0-30.0); Creatinine Clearance Estimated 69 mL/min (50-200); Estimated Glomerular Filt Rate 61 ml/min (>60); GFR (African American) 73 ML/MIN (>60)
[2022-05-25 15:08] LABS: Calcium 8.7 mg/dl (8.4-10.2); Glucose 99 mg/dl (74-100)
[2022-05-25 15:30] LABS: Troponin I < 0.01 ng/ml (0.00-0.034)
--- NOTE | 2022-05-25 15:55 | PC.NURSE ---
PT SITTING UP ON SIDE OF BED PER PT REQUEST
[2022-05-25 16:40] LABS: NT Pro Brain Natriuretic Pep. 995 pg/mL (0-450)
--- NOTE | 2022-05-25 16:53 | PC.NURSE ---
TALKING TO DR PATEL ABOUT PT
[2022-05-25 18:14] LABS: Troponin I < 0.01 ng/ml (0.00-0.034)
== END 2022-05-25 19:03 | disposition home or self-care (01) ==
PROVIDERS: Emergency Provider Emergency Medicine; PCP Physician Assistant
DX: I50.9 Heart failure, unspecified; H66.92 Otitis media, unspecified, left ear
CPT/HCPCS: 71045; 80048; 83880; 84484; 85025; 93005; 96374; 99284

== ENCOUNTER 2022-07-17 12:11 | Inpatient (IN) | payer MEDICARE, MEDICAID, SELFPAY ==
[2022-07-17] VITALS (10 sets, daily range): BP systolic 129–168; BP diastolic 55–98; PULSE 50–86; RESP 16–21; TEMP 36.7–36.9; O2SAT 88–96; BMI 41.6; BMI 39.4
--- NOTE | 2022-07-17 12:12 | ECG_ITS ---
APPROVED REPORT Exam: Resting ECG HR:57 bpm ECG Measurements Heart Rate 57 AXES CA 167 P 46 QRSd 100 QRS -20 QT 420 T 39 QTc 415 Conclusion SINUS BRADYCARDIA WITH SINUS ARRHYTHMIA BORDERLINE ECG UNCONFIRMED REPORT Electronically signed by : Lance Santillan MD 07/17/2022 20:55:28
--- NOTE | 2022-07-17 12:14 | XR_ITS ---
FINAL REPORT CLINICAL HISTORY: chest pain COMPARISON: 05/25/2022 FINDINGS: A single portable view of the chest was obtained. The heart size and pulmonary vascularity are within normal limits. The mediastinum is within normal limits. There is right lung base opacity, favor atelectasis. The bony thorax is intact. IMPRESSION: Right lung base opacity, favor atelectasis. Reviewed, Interpreted and Dictated by Ulises Izaguirre III, MD Transcribed by Maryjo Baltazar Authenticated and [facility]
--- NOTE | 2022-07-17 12:21 | XR_ITS ---
FINAL REPORT CLINICAL HISTORY: leg wounds, swelling reddness FINDINGS: Two views of the right tibia-fibula demonstrate no acute fracture or dislocation. The bones are osteopenic. There are mild degenerative changes. There is no acute bony erosion. There has been knee arthroplasty. Vascular calcifications are present. IMPRESSION: Degenerative and postoperative changes. Reviewed, Interpreted and Dictated by Ulises Izaguirre III, MD Transcribed by Rony Barrios Authenticated and . [facility]
--- NOTE | 2022-07-17 12:21 | XR_ITS ---
FINAL REPORT CLINICAL HISTORY: leg wounds, redness swelling, edema FINDINGS: LEFT TIBIA FIBULA 2 views were obtained. There is no acute fracture or dislocation. There are mild degenerative changes in the knee. There are vascular calcifications. There is no acute bony erosion. IMPRESSION: No acute bony erosion. Reviewed, Interpreted and Dictated by Ulises Izaguirre III, MD Transcribed by Maryjo Baltazar Authenticated and . [facility]
[2022-07-17 12:25] LABS: Basophils # 0.1 K/mm3 (0-0.2); Basophils % 1.1 % (0.1-2.0); Eosinophils # 0.6 K/mm3 (0.0-0.4); Eosinophils % 8.7 % (0.1-12.0); Hematocrit 34.7 % (37.0-47.0); Hemoglobin 10.9 g/dL (12.2-16.2); Lymphocytes # 1.1 K/mm3 (0.7-4.5); Lymphocytes % 15.8 % (10-50); Mean Corpuscular HGB Conc 31.6 g/dL (31.8-35.4); Mean Corpuscular Hemoglobin 26.3 pg (27.0-31.2); Mean Corpuscular Volume 83.4 fl (81-99); Mean Platelet Volume 9.6 fl (7.4-10.4); Monocytes # 0.3 K/mm3 (0.1-1.0); Monocytes % 4.3 % (1.7-9.3); Neutrophils % 70.1 % (37.0-80.0); Platelet Count 197 K/mm3 (142-424); Red Blood Count 4.16 M/mm3 (4.20-5.40); Red Cell Distribution Width 17.2 % (11.5-17.5); White Blood Count 7.1 K/mm3 (4.8-10.8)
--- NOTE | 2022-07-17 12:25 | PC.NURSE ---
called RT for abg
[2022-07-17 12:39] LABS: ABG Base Excess -4.7 mmol/L (-2.4-2.3); ABG HCO3 21.7 mmhg (22.0-26.0); ABG Oxygen Saturation 90 % (90-100); ABG PCO2 44.3 mmhg (35.0-45.0); ABG PH 7.31 mmol/L (7.35-7.45); ABG PO2 59.3 mmhg (80-100)
[2022-07-17 12:39] LABS: Chloride 111 mmol/L (98-107); Sodium 139 mmol/L (136-145)
[2022-07-17 12:40] LABS: Potassium 4.4 mmoL/L (3.5-5.1)
[2022-07-17 12:42] LABS: Alanine Aminotransferase 10 U/L (12-78); Albumin Level 3.8 g/dl (3.5-5.0); Albumin/Globulin Ratio 1.3 (1.1-1.8); Alkaline Phosphatase 99 U/L (38-126); Anion Gap 7.4 mEq/L (5-15); Aspartate Amino Transferase 18 U/L (14-36); Bilirubin,Total 0.3 mg/dl (0.2-1.3); Blood Urea Nitrogen 26 mg/dl (7-17); Carbon Dioxide 25 mmol/L (22.0-30.0); Creatinine Clearance Estimated 32 mL/min (50-200); Estimated Glomerular Filt Rate 44 ml/min (>60); GFR (African American) 53 ML/MIN (>60); Globulin 2.9 g/dL (1.3-3.2); Glucose 98 mg/dl (74-100); Total Protein,Serum 6.7 g/dl (6.3-8.2)
[2022-07-17 12:42] LABS: Oxygen Room Air %
[2022-07-17 12:43] LABS: Allen's Test Acceptable; Source Left Radial
[2022-07-17 12:52] LABS: NT Pro Brain Natriuretic Pep. 1640 pg/mL (0-450)
--- NOTE | 2022-07-17 12:52 | HMH.EDGENADL ---
Discharge Plan Disposition Patient Disposition: Admitted As Inpatient Condition: Good Clinical Impressions Clinical Impression: CHF (congestive heart failure) Discharge ED Provider: Melba Vaughn Adult HPI General Chief complaint: PAIN Stated complaint: chest pain Time Seen by Provider: 07/17/22 12:12 Mode of Arrival: Wheelchair Source of Information: Patient Limitations: No Limitations Description of Symptoms (Recalled from ER Triage Doc. by RN): pt to ed c/o pain all over her chest and back. pt states she has been hurting all week. pt reports she has been short of air all week. History of Present Illness HPI narrative: Ms. Bliss is a 77-year-old female past medical history for A. fib, CHF, aortic stenosis, mitral valve regurgitation, venous insufficiency, presenting to the emergency department with chest pain and dyspnea for two weeks. Also reports progressively worsening BLE swelling. Patient reports due to the increased fluids in her LE, she now has wounds on her legs that appeared 2 weeks prior. + non productive cough, but denies fevers or other infectious like symptoms. Patient takes her diuretic as prescribed w/ copious urine output. MD complaint: dyspnea, LE swelling Related Data Home Medications Medication Instructions Recorded Confirmed nadolol 80 mg tablet 80 mg PO DAILY Hypertension 12/20/20 07/18/22 diltiazem HCl 180 mg 180 mg PO DAILY heart rate 02/18/22 07/18/22 capsule,extended release 24 hr famotidine 20 mg tablet 20 mg PO DAILY acid reflux 02/18/22 07/18/22 mirtazapine 15 mg tablet 15 mg PO HS MOOD 02/18/22 07/18/22 pantoprazole 40 mg tablet,delayed 40 mg PO DAILY GERD 02/18/22 07/18/22 release sertraline 100 mg tablet 150 mg PO DAILY MOOD 02/18/22 07/18/22 buspirone 7.5 mg tablet 7.5 mg PO BID Anxiety 06/06/22 07/18/22 cetirizine 10 mg tablet 10 mg PO DAILY Allergy symptoms 06/06/22 07/18/22 furosemide 20 mg tablet 20 mg PO DAILY Fluid 06/06/22 07/18/22 meloxicam 7.5 mg tablet 7.5 mg PO DAILY Pain 06/06/22 07/18/22 potassium chloride 10 mEq 10 meq PO DAILY Supplement 06/06/22 07/18/22 tablet,extended release Previous Rx's Medication Instructions Recorded levothyroxine 25 mcg tablet 25 mcg PO DAILY hypothyroidism #30 11/18/20 (Synthroid) tabs Allergies Allergy/AdvReac Type Severity Reaction Status Date / Time pseudoephedrine Allergy Severe Difficulty Verified 06/27/22 15:22 Breathing azithromycin Allergy Unknown Unknown Verified 06/27/22 15:22 allergy reaction Cephalosporins Allergy Unknown Gastrointestinal Verified 06/27/22 15:22 Upset chocolate flavor Allergy Unknown Unknown Verified 06/27/22 15:22 allergy reaction clarithromycin Allergy Unknown Unknown Verified 06/27/22 15:22 allergy reaction erythromycin base Allergy Unknown Rash Verified 06/27/22 15:22 guaifenesin Allergy Unknown Unknown Verified 06/27/22 15:22 allergy reaction montelukast Allergy Unknown Numbness Verified 06/27/22 15:22 nabumetone [From Relafen] Allergy Unknown Rash Verified 06/27/22 15:22 nitrofurantoin Allergy Unknown Unknown Verified 06/27/22 15:22 allergy reaction NSAIDS (Non-Steroidal Allergy Unknown Unknown Verified 06/27/22 15:22 Anti-Inflamma allergy reaction Penicillins Allergy Unknown Unknown Verified 06/27/22 15:22 allergy reaction prednisone Allergy Unknown Unknown Verified 06/27/22 15:22 allergy reaction Sulfa (Sulfonamide Allergy Unknown Unknown Verified 06/27/22 15:22 Antibiotics) allergy reaction cefdinir Allergy rash, Verified 06/27/22 15:22 itching clindamycin AdvReac Unknown Gastrointestinal Verified 06/27/22 15:22 Upset codeine AdvReac Unknown Gastrointestinal Verified 06/27/22 15:22 Upset doxycycline AdvReac Unknown MAKES THE Verified 06/27/22 15:22 BACKS OF EYES HURT fexofenadine [From Sudha] AdvReac Unknown INFLAMED Verified 06/27/22 15:22 INS
[2022-07-17 12:59] LABS: Troponin I < 0.01 ng/ml (0.00-0.034)
[2022-07-17 13:06] LABS: Coronavirus 19, PCR Not Detected (NotDetected); Influenza A, PCR Not Detected (NotDetected); Influenza B, PCR Not Detected (NotDetected)
--- NOTE | 2022-07-17 14:29 | PC.NURSE ---
DR CM SPEAKING WITH DR PATEL FOR POSSIBLE ADMISSION OF DR FRIED'S PT
[2022-07-17 15:41] LABS: Troponin I < 0.01 ng/ml (0.00-0.034)
--- NOTE | 2022-07-17 15:53 | PC.NURSE ---
called report to lex springer
--- NOTE | 2022-07-17 17:48 | EXP.HP ---
History of Present Illness *Admission Date: 07/17/22 *Reason for visit:: Chest pain and congestive heart failure *History of present illness: Ms. Bliss is a 77-year-old female with a history of chronic sinusitis, migraine headache, anxiety, depression, osteoarthritis, moderate MR, left ventricular hypertrophy, mitral valve regurgitation, splenic artery aneurysm, narcolepsy who presented to the office of [facility] today complaining of a 2-week history of left-sided chest pain associated with increasing shortness of breath, dyspnea on exertion and swelling in her legs. She also described a slight cough but no fever. She had developed sores on her legs from the swelling. She had had no source of transportation to get to the office until today. On exam and [facility] she feels mildly dyspneic. She was noted to have a grade 1/6 systolic murmur. Lungs had slightly diminished breath sounds in the bases. Extremities reveal 2-3+ pretibial edema. Legs were wrapped with Christian bandages. Left leg showed 2 to 4 cm areas of denuded skin when bandage was removed. She was thus sent to the emergency room for probable admission. With evaluation in the ER she was found to be afebrile with a blood pressure 145/61. O2 sats were 95%. Laboratory data showed white blood cell count of 7100 with a hemoglobin of 10.9 hematocrit of 34.7. BUN and creatinine were elevated at 26/1.20. Potassium was 4.4. ABGs on room air showed a pH of 7.31 PCO2 of 44.3 PO2 of 59.3 with a bicarb of 21.7. COVID and flu were negative. Troponin I was 0.01. Chest x-ray showed right lung base opacity favoring atelectasis she had an x-ray of her left tibia-fibula which showed no acute bony erosion right tibia-fibula x-ray showed degenerative and postop changes. [facility] Disclaimer: The information contained in this section may have been updated after the patient was seen, as this information can be updated by other users. Medical History Aneurysm Anxiety Anxiety Arrhythmia Arrhythmia Atrial fibrillation Cancer Cancer Chronic sinusitis Congestive heart failure Coronary artery disease Depression GERD (gastroesophageal reflux disease) GERD (gastroesophageal reflux disease) Heart murmur Heart murmur HLD (hyperlipidemia) HTN (hypertension), benign Kidney stone Migraine Palpitations T2DM (type 2 diabetes mellitus) Surgical History H/O arthroscopy of left knee H/O total hysterectomy History of carpal tunnel release of both wrists History of carpal tunnel release of both wrists History of cholecystectomy History of lumpectomy of left breast History of total right hip replacement History of total right hip replacement Family History Other Coronary artery disease Diabetes Hypertension Kidney disease Social History (Updated 07/17/22 @ 17:10 by Amisha Durant RN) Smoking Status: Never smoker second hand exposure: No alcohol intake: never substance use type: denies use current occupational status: retired and disabled Travel in the last 8 weeks: None household members: other housing: house caffeine: Yes Review of Systems Constitutional Constitutional: Denies chills, Reports fatigue, Denies fever(s) and Denies headache(s) Eyes Eyes: Denies change in vision ENT Ears, Nose, Mouth, and Throat: Denies otalgia, Denies headache(s), Reports post nasal drip (Chronic) and Denies sore throat *Cardiovascular Cardiovascular: Reports chest pain (Left anterior chest discomfort), Reports chest pain at rest, Reports dyspnea and Reports leg edema *Respiratory Respiratory: Reports chest congestion, Reports cough and Reports dyspnea *Gastrointestinal Gastrointestinal: Reports diarrhea, Reports heartburn, Reports hematemesis, Reports nausea and Reports vomiting *Genitourinary Genitou
[2022-07-17 19:18] LABS: Troponin I < 0.01 ng/ml (0.00-0.034)
--- NOTE | 2022-07-17 20:17 | PC.NURSE ---
Pt new admit. 2 L NC applied for sats in low 's. VSS. CB in reach. Dsg's applied to ble.
[2022-07-18] VITALS (9 sets, daily range): BP systolic 101–143; BP diastolic 46–70; PULSE 48–70; RESP 17–20; TEMP 36.4–37.1; O2SAT 93–97; BMI 35.4; BMI 35.2
--- NOTE | 2022-07-18 00:29 | PC.NURSE ---
spoke with MD Kailash guerrero pt c/o pain in hip and chest. ordered tylenol. acetaminophen (from lortab) is in the pt allergy list, pt states she can take tylenol.
[2022-07-18 06:32] LABS: MANUAL DIFFERENTIAL MANUAL DIFFERENTIAL (MANUAL DIFF)
[2022-07-18 06:46] LABS: Basophils # 0.1 K/mm3 (0-0.2); Basophils % 0.8 % (0.1-2.0); Eosinophils # 0.5 K/mm3 (0.0-0.4); Eosinophils % 8.2 % (0.1-12.0); Hematocrit 32.3 % (37.0-47.0); Hemoglobin 10.3 g/dL (12.2-16.2); Lymphocytes # 1.1 K/mm3 (0.7-4.5); Lymphocytes % 18.9 % (10-50); Mean Corpuscular Hemoglobin 26.2 pg (27.0-31.2); Mean Corpuscular Volume 81.8 fl (81-99); Mean Platelet Volume 9.2 fl (7.4-10.4); Monocytes # 0.4 K/mm3 (0.1-1.0); Neutrophils % 66.1 % (37.0-80.0); Platelet Count 166 K/mm3 (142-424); Red Blood Count 3.94 M/mm3 (4.20-5.40); Red Cell Distribution Width 17.1 % (11.5-17.5)
[2022-07-18 06:49] LABS: Chloride 108 mmol/L (98-107); Potassium 4.6 mmoL/L (3.5-5.1); Sodium 141 mmol/L (136-145)
[2022-07-18 06:52] LABS: Alanine Aminotransferase 8 U/L (12-78); Albumin Level 3.3 g/dl (3.5-5.0); Albumin/Globulin Ratio 1.3 (1.1-1.8); Alkaline Phosphatase 87 U/L (38-126); Anion Gap 8.6 mEq/L (5-15); Aspartate Amino Transferase 17 U/L (14-36); Bilirubin,Total 0.4 mg/dl (0.2-1.3); Blood Urea Nitrogen 24 mg/dl (7-17); Carbon Dioxide 29 mmol/L (22.0-30.0); Creatinine Clearance Estimated 68 mL/min (50-200); Estimated Glomerular Filt Rate 54 ml/min (>60); GFR (African American) 65 ML/MIN (>60); Globulin 2.6 g/dL (1.3-3.2); Total Protein,Serum 5.9 g/dl (6.3-8.2)
[2022-07-18 06:53] LABS: Calcium 8.9 mg/dl (8.4-10.2); Glucose 94 mg/dl (74-100)
[2022-07-18 07:58] LABS: Erythrocyte Sedimentation Rate 18 mm/hr (0-30)
[2022-07-18 08:01] LABS: C-Reactive Protein 11.4 mg/L (0-4)
--- NOTE | 2022-07-18 08:02 | EXP.ACUTE.PN ---
Subjective *Date: 07/18/22 *Time: 08:15 Interval history: Patient states she is feeling about the same today. She denies any shortness of breath. She states she did not sleep all night but she is trying to eat this morning. She denies any pain. She has multiple abrasions on her legs and is unsure where they came from. Medical Exam Vital signs and Labs for Last 24 Hours: Vital Signs Temp Pulse Pulse Resp BP BP Pulse Ox 07/18/22 07:45 98.4 F 53 L 17 137/69 94 L 07/18/22 04:00 50 L 07/18/22 04:00 98.2 F 64 18 143/47 H 93 L 07/18/22 00:00 70 07/17/22 20:00 50 L 07/17/22 23:45 98.5 F 66 16 129/59 L 92 L 07/17/22 20:00 98.0 F 86 16 136/70 94 L 07/17/22 17:33 98.5 F 58 L 16 162/55 H 92 L 07/17/22 16:56 98.2 F 59 L 20 146/56 H 07/17/22 15:01 56 L 20 160/87 H 96 07/17/22 14:31 61 18 133/98 H 95 07/17/22 14:03 61 20 168/84 H 96 07/17/22 13:00 60 16 151/60 H 95 07/17/22 12:31 59 L 21 145/61 H 88 L 07/17/22 12:18 98.2 F 60 20 144/78 H 92 L Intake and Output 07/17/22 07/18/22 07/18/22 19:59 03:59 11:59 Intake Total 360 / 480 120 / 480 Output Total 1200 / 2000 800 / 2000 Balance 360 / -1520 -1200 / -1520 -680 / -1520 Intake: Intake, Oral Amount 360 / 480 120 / 480 Output: Output, Urine Amount 1200 / 2000 800 / 2000 Other: Number of Unmeasured Voids 0 Weight 222 lb 7 oz 200 lb 5 oz Patient Weight 07/18/22 11:59 Weight 200 lb 5 oz Laboratory Results - last 24 hr 07/17/22 12:15: WBC 7.1, RBC 4.16 L, Hgb 10.9 L, Hct 34.7 L, MCV 83.4, MCH 26.3 L, MCHC 31.6 L, RDW 17.2, Plt Count 197, MPV 9.6, Neut % (Auto) 70.1, Lymph % (Auto) 15.8, [place] % (Auto) 4.3, Eos % (Auto) 8.7, Baso % (Auto) 1.1, Neut # (Auto) 5.0, Lymph # (Auto) 1.1, [place] # (Auto) 0.3, Eos # (Auto) 0.6 H, Baso # (Auto) 0.1 07/17/22 12:15: Sodium 139, Potassium 4.4, Chloride 111 H, Carbon Dioxide 25, Anion Gap 7.4, BUN 26 H, Creatinine 1.20 H, Estimated Creat Clear 32, Estimated GFR 44 L, Est GFR ( Amer) 53 L, Glucose 98, Calcium 9.0, Total Bilirubin 0.3, AST 18, ALT 10 L, Alkaline Phosphatase 99, Troponin I < 0.01, Total Protein 6.7, Albumin 3.8, Globulin 2.9, Albumin/Globulin Ratio 1.3 07/17/22 12:15: NT-Pro-B Natriuret Pep 1640 H 07/17/22 12:20: Specimen Source Left radial, O2 % Room air, ABG pH 7.31 L, ABG pCO2 44.3, ABG pO2 59.3 L, ABG HCO3 21.7 L, ABG Total CO2 23.0, ABG O2 Saturation 90, ABG Base Excess -4.7 L, Ghassan Test Acceptable 07/17/22 12:45: SARS-CoV-2 (PCR) Not detected, Influenza A Untype (PCR) Not detected, Influenza Type B (PCR) Not detected 07/17/22 15:06: Troponin I < 0.01 07/17/22 18:20: Troponin I < 0.01 07/18/22 06:24: WBC 6.0, RBC 3.94 L, Hgb 10.3 L, Hct 32.3 L, MCV 81.8, MCH 26.2 L, MCHC 32.0, RDW 17.1, Plt Count 166, MPV 9.2, Neut % (Auto) 66.1, Lymph % (Auto) 18.9, [place] % (Auto) 6.0, Eos % (Auto) 8.2, Baso % (Auto) 0.8, Neut # (Auto) 4.0, Lymph # (Auto) 1.1, [place] # (Auto) 0.4, Eos # (Auto) 0.5 H, Baso # (Auto) 0.1 07/18/22 06:24: Sodium 141, Potassium 4.6, Chloride 108 H, Carbon Dioxide 29, Anion Gap 8.6, BUN 24 H, Creatinine 1.00, Estimated Creat Clear 68, Estimated GFR 54 L, Est GFR ( Amer) 65 D, Glucose 94, Calcium 8.9, Total Bilirubin 0.4, AST 17, ALT 8 L, Alkaline Phosphatase 87, Total Protein 5.9 L, Albumin 3.3 L D, Globulin 2.6, Albumin/Globulin Ratio 1.3 07/18/22 06:24: ESR 18 I & O for Labs for Last 24 Hours: Intake & Output 07/15/22 07/16/22 07/17/22 07/18/22 11:59 11:59 11:59 11:59 Intake Total 480 / 480 Output Total 1999 / 1999 Balance -1520 / -1520 Weight 200 lb 5 oz Constitutional: Present no acute distress Respiratory: Present decreased breath sounds Cardiac: Present Reg Rate and Rhythm GI: Present soft; Absent distention, tenderness or guarding Extremities: Present edema (Less edema, multiple open wounds on the lower legs) Neuro: Present alert and awake Assess
--- NOTE | 2022-07-18 08:11 | HMH.PHAINT1 ---
Pharmacy Intervention Comments: MEDICATION RECONCILIATION COMPLETED ON PATIENT USING EXTERNAL FILL HISTORY FROM PHARMACY AND LIST FROM [facility] OFFICE. -FARHAD MCLAUGHLIND
--- NOTE | 2022-07-18 08:32 | EXP.ORTH.CON ---
Documented by User: Laura Banegas, JONES 07/18/22 10:39 History of Present Illness *Admission Date: 07/17/22 *History of present illness: Patient is a 77-year-old non diabetic female past medical history for A. fib, CHF, aortic stenosis presenting to the emergency department with chest pain, back pain and dyspnea for the last week. Patient was admitted for inpatient management of congestive heart failure. Patient was also found to have b/l lower extremity edema, ulcers, mild cellulitis and right heel chronic pressure ulcer. Podiatry was consulted for an evaluation and treatment of lower legs and right heel ulcer. Patient is well known to podiatry, last office visit was 06/27/22. The wound to right heel was healed. Last MRI of right foot did not show osteomyelitis. Patient was sitting up in bed alert and oriented and eating breakfast. We will obtain wound culture and order labs: ESR and CRP and treat accordingly. [facility] Disclaimer: The information contained in this section may have been updated after the patient was seen, as this information can be updated by other users. Medical History Aneurysm Anxiety Anxiety Arrhythmia Arrhythmia Atrial fibrillation Cancer Cancer Chronic sinusitis Congestive heart failure Coronary artery disease Depression GERD (gastroesophageal reflux disease) GERD (gastroesophageal reflux disease) Heart murmur Heart murmur HLD (hyperlipidemia) HTN (hypertension), benign Kidney stone Migraine Palpitations T2DM (type 2 diabetes mellitus) Surgical History H/O arthroscopy of left knee H/O total hysterectomy History of carpal tunnel release of both wrists History of carpal tunnel release of both wrists History of cholecystectomy History of lumpectomy of left breast History of total right hip replacement History of total right hip replacement Family History Other Coronary artery disease Diabetes Hypertension Kidney disease Social History Smoking Status: Never smoker second hand exposure: No alcohol intake: never substance use type: denies use current occupational status: retired and disabled Travel in the last 8 weeks: None household members: other housing: house caffeine: Yes Review of Systems Constitutional Constitutional: Denies headache(s) ENT Ears, Nose, Mouth, and Throat: Denies headache(s) *Musculoskeletal Musculoskeletal: Reports abnormal gait (Uses motorized wheelchair for ambulation) *Neurologic Neurologic: Reports abnormal gait (Uses motorized wheelchair for ambulation) and Denies headache(s) Meds Home Medications and Allergies Home Medications Medication Instructions Recorded Confirmed Type levothyroxine 25 mcg tablet 25 mcg PO DAILY hypothyroidism #30 11/18/20 07/18/22 Rx (Synthroid) tabs nadolol 80 mg tablet 80 mg PO DAILY Hypertension 12/20/20 07/18/22 History diltiazem HCl 180 mg 180 mg PO DAILY heart rate 02/18/22 07/18/22 History capsule,extended release 24 hr famotidine 20 mg tablet 20 mg PO DAILY acid reflux 02/18/22 07/18/22 History mirtazapine 15 mg tablet 15 mg PO HS MOOD 02/18/22 07/18/22 History pantoprazole 40 mg tablet,delayed 40 mg PO DAILY GERD 02/18/22 07/18/22 History release sertraline 100 mg tablet 150 mg PO DAILY MOOD 02/18/22 07/18/22 History buspirone 7.5 mg tablet 7.5 mg PO BID Anxiety 06/06/22 07/18/22 History cetirizine 10 mg tablet 10 mg PO DAILY Allergy symptoms 06/06/22 07/18/22 History furosemide 20 mg tablet 20 mg PO DAILY Fluid 06/06/22 07/18/22 History meloxicam 7.5 mg tablet 7.5 mg PO DAILY Pain 06/06/22 07/18/22 History potassium chloride 10 mEq 10 meq PO DAILY Supplement 06/06/22 07/18/22 History tablet,extended release New Prescriptions to Start Prescriptions: Allergies Allergy/Adv
[2022-07-18 10:24] LABS: Eosinophils % 5 % (0-3); Hypochromasia 1+; Lymphocytes % 23 % (10-50); Monocytes % 6 % (2-9); Neutrophils % 65 % (42-76); Platelet Estimate Normal; Total Cells Counted 100
[2022-07-18 10:25] LABS: Microcytosis 1+
--- NOTE | 2022-07-18 16:57 | PC.NURSE ---
gian noble called rt @ 16:50 for and ekg
--- NOTE | 2022-07-18 17:16 | ECG_ITS ---
APPROVED REPORT Exam: Resting ECG HR:48 bpm ECG Measurements Heart Rate 48 AXES OK 107 P -70 QRSd 102 QRS -28 QT 435 T 56 QTc 403 Conclusion JUNCTIONAL BRADYCARDIA BORDERLINE LEFT AXIS DEVIATION [QRS AXIS < -20] ABNORMAL RHYTHM ECG UNCONFIRMED REPORT Electronically signed by : Lance Santillan MD 07/19/2022 20:17:24
--- NOTE | 2022-07-18 22:47 | PC.NURSE ---
Pt is A/Ox4. She had a Bm in [facility]. She has tolerated diet well this shift. She complained of itching and was given vistaril. She has no complaints nor issues at this time.
[2022-07-19] VITALS (7 sets, daily range): BP systolic 110–155; BP diastolic 32–67; PULSE 48–59; RESP 16–20; TEMP 36.4–37.1; O2SAT 90–97; BMI 35.1
--- NOTE | 2022-07-19 06:03 | PC.NURSE ---
WOUND CARE TO BLE XERFORMAND HERMINIO DRSG. 02 AT 2LNC. 02 SATS AT 97%. NO C/O SOA. NO COUGH. NO RESP DISTRESS.TELE MONOTORING SINUS ANNA ALTERNATING WITH JUNCTIONAL RHYTHM ON OCCASSION. LUNGS C/D BILAT. MEDICATED WITH TYLENOL FOR ACHING IN LEGS AND HYDROXYZINE FOR ITCHING.
--- NOTE | 2022-07-19 07:23 | EXP.ACUTE.PN ---
Subjective *Date: 07/19/22 *Time: 07:23 Interval history: Patient reports itching of skin that started yesterday, hydoxyzine helps a little. Medical Exam Vital signs and Labs for Last 24 Hours: Vital Signs Temp Pulse Pulse Resp BP Pulse Ox 07/19/22 04:00 50 L 07/19/22 04:00 97.9 F 48 L 18 110/32 L 97 07/19/22 00:00 56 L 07/19/22 00:00 97.9 F 52 L 20 120/47 L 94 L 07/18/22 20:00 48 L 07/18/22 20:00 94 L 07/18/22 20:00 97.5 F L 56 L 20 101/46 L 94 L 07/18/22 16:00 51 L 07/18/22 12:00 62 07/18/22 08:00 63 07/18/22 15:36 98.7 F 53 L 18 139/70 97 07/18/22 11:12 98.8 F 56 L 17 143/68 H 97 07/18/22 07:45 98.4 F 53 L 17 137/69 94 L Intake and Output 07/18/22 07/18/22 07/19/22 15:59 23:59 07:59 Intake Total 480 / 840 240 / 840 Output Total 1000 / 2650 850 / 2650 0 / 0 Balance -520 / -1810 -610 / -1810 0 / 0 Intake: Intake, Oral Amount 480 / 840 240 / 840 Output: Output, Urine Amount 1000 / 2650 850 / 2650 0 / 0 Other: Number of Unmeasured Voids 0 0 Weight 198 lb 6.656 oz 198 lb 2 oz Patient Weight 07/19/22 23:59 Weight 198 lb 2 oz Laboratory Results - last 24 hr 07/18/22 06:24: Total Counted 100, Neutrophils % (Manual) 65, Band Neutrophils % 1.0, Lymphocytes % (Manual) 23, Monocytes % (Manual) 6, Eosinophils % (Manual) 5 H, Platelet Estimate Normal, Hypochromasia 1+, Microcytosis 1+ 07/18/22 06:24: ESR 18 07/18/22 06:24: C-Reactive Protein 11.4 H I & O for Labs for Last 24 Hours: Intake & Output 07/16/22 07/17/22 07/18/22 12/08/22 23:59 23:59 23:59 23:59 Intake Total 360 / 360 840 / 840 Output Total 1200 / 1200 2650 / 2650 0 / 0 Balance -840 / -840 -1810 / -1810 0 / 0 Weight 222 lb 7 oz 198 lb 6.656 oz 198 lb 2 oz Microbiology Reports for the Last 24 Hours: Microbiology 07/18/22 Unknown Leg,Right Gram Stain - Final 07/18/22 Unknown Leg,Left Gram Stain - Final Constitutional: Present no acute distress Respiratory: Present decreased breath sounds Cardiac: Present Reg Rate and Rhythm GI: Present soft; Absent distention, tenderness or guarding Extremities: Present edema (Less edema, dressings in place over wounds) Neuro: Present alert and awake Assessment and Plan *Assessment and plan (1) CHF (congestive heart failure): Status: Acute Category: Medical Code(s): I50.9 - Heart failure, unspecified (2) Edema of both lower extremities: Status: Acute Category: Medical Code(s): R60.0 - Localized edema (3) Open wound of right heel: Status: Acute Qualifiers: Encounter type: subsequent encounter Qualified Code(s): S91.301D - Unspecified open wound, right foot, subsequent encounter Category: Medical Code(s): S91.301A - Unspecified open wound, right foot, initial encounter (4) Chronic wound of extremity: Status: Acute Category: Medical (5) Hypothyroidism: Status: Acute Category: Medical Code(s): E03.9 - Hypothyroidism, unspecified (6) Chronic sinusitis: Status: Acute Category: Medical Code(s): J32.9 - Chronic sinusitis, unspecified (7) Narcolepsy: Status: Acute Category: Medical Code(s): G47.419 - Narcolepsy without cataplexy (8) Osteoarthritis: Status: Chronic Qualifiers: Osteoarthritis location: multiple joints Category: Medical Code(s): M19.90 - Unspecified osteoarthritis, unspecified site (9) Migraine headache: Status: Chronic Category: Medical Code(s): G43.909 - Migraine, unspecified, not intractable, without status migrainosus (10) Depression: Status: Acute Qualifiers: Depression Type: reactive depression Qualified Code(s): F32.9 - Major depressive disorder, single episode, unspecified Category: Medical Code(s): F32.9 - Major depressive di
[2022-07-19 08:06] LABS: Basophils # 0.1 K/mm3 (0-0.2); Basophils % 0.9 % (0.1-2.0); Eosinophils # 0.6 K/mm3 (0.0-0.4); Eosinophils % 9.4 % (0.1-12.0); Hematocrit 33.9 % (37.0-47.0); Hemoglobin 10.9 g/dL (12.2-16.2); Lymphocytes # 1.5 K/mm3 (0.7-4.5); Lymphocytes % 23.2 % (10-50); Mean Corpuscular HGB Conc 32.2 g/dL (31.8-35.4); Mean Corpuscular Hemoglobin 26.2 pg (27.0-31.2); Mean Corpuscular Volume 81.5 fl (81-99); Mean Platelet Volume 9.5 fl (7.4-10.4); Monocytes # 0.3 K/mm3 (0.1-1.0); Monocytes % 5.1 % (1.7-9.3); Neutrophils % 61.4 % (37.0-80.0); Platelet Count 174 K/mm3 (142-424); Red Blood Count 4.16 M/mm3 (4.20-5.40); Red Cell Distribution Width 17.1 % (11.5-17.5); White Blood Count 6.5 K/mm3 (4.8-10.8)
[2022-07-19 08:26] LABS: Chloride 102 mmol/L (98-107); Sodium 140 mmol/L (136-145)
[2022-07-19 08:27] LABS: Potassium 4.3 mmoL/L (3.5-5.1)
[2022-07-19 08:30] LABS: Anion Gap 13.3 mEq/L (5-15); Blood Urea Nitrogen 31 mg/dl (7-17); Calcium 8.7 mg/dl (8.4-10.2); Carbon Dioxide 29 mmol/L (22.0-30.0); Creatinine Clearance Estimated 61 mL/min (50-200); Estimated Glomerular Filt Rate 48 ml/min (>60); GFR (African American) 58 ML/MIN (>60); Glucose 113 mg/dl (74-100)
--- NOTE | 2022-07-19 19:47 | PC.NURSE ---
pt left the floor at 1946.
--- NOTE | 2022-07-23 14:21 | CARE MANAGER ---
Attempted to contact patient related to hospital discharge x 2. Left VM. SAVANNA Shields
--- NOTE | 2022-07-23 15:12 | EXP.DC.SUM ---
General Admission date:: 07/17/22 Discharge date: 07/19/22 HPI HPI HPI: History of present illness: Ms. Bliss is a 77-year-old female with a history of chronic sinusitis, migraine headache, anxiety, depression, osteoarthritis, moderate MR, left ventricular hypertrophy, mitral valve regurgitation, splenic artery aneurysm, narcolepsy who presented to the office of [facility] complaining of a 2-week history of left-sided chest pain associated with increasing shortness of breath, dyspnea on exertion and swelling in her legs.? She also described a slight cough but no fever.? She had developed sores on her legs from the swelling.? She had no source of transportation to get to the office until this presentation.? On exam in [facility] she felt mildly dyspneic.? She was noted to have a grade 1/6 systolic murmur.? Lungs had slightly diminished breath sounds in the bases.? Extremities revealed 2-3+ pretibial edema.? Legs were wrapped with Christian bandages.? Left leg showed 2 to 4 cm areas of denuded skin when bandage was removed.? She was thus sent to the emergency room for probable admission. With evaluation in the ER she was found to be afebrile with a blood pressure 145/61.? O2 sats were 95%.? Laboratory data showed white blood cell count of 7100 with a hemoglobin of 10.9 hematocrit of 34.7.? BUN and creatinine were elevated at 26/1.20.? Potassium was 4.4.? ABGs on room air showed a pH of 7.31 PCO2 of 44.3 PO2 of 59.3 with a bicarb of 21.7.? COVID and flu were negative.? Troponin I was 0.01.? Chest x-ray showed right lung base opacity favoring atelectasis. She had an x-ray of her left tibia-fibula which showed no acute bony erosion;' right tibia-fibula x-ray showed degenerative and postop changes. Missy nirav was seen by Podiatry with the following notation: Patient is a 77-year-old non diabetic female past medical history for A. fib, CHF, aortic stenosis presenting to the emergency department with chest pain, back pain and dyspnea for the last week. Patient was admitted for inpatient management of congestive heart failure. Patient was also found to have b/l lower extremity edema, ulcers, mild cellulitis and right heel chronic pressure ulcer. Podiatry was consulted for an evaluation and treatment of lower legs and right heel ulcer. Patient is well known to podiatry, last office visit was 06/27/22. The wound to right heel was healed. Last MRI of right foot did not show osteomyelitis. Patient was sitting up in bed alert and oriented and eating breakfast. We will obtain wound culture and order labs: ESR and CRP and treat accordingly. Hospital Course Hospital Course Hospital Course: Patient was given IV Lasix in the emergency room and she did diurese from this. She was seen by wound care podiatry who treated multiple open wounds on bilateral lower legs. It is noted that this was caused by scratching itchy skin with fingernails. Yellow drainage was noted and wound culture was taken. Edema and cellulitis were noted. Right heel chronic pressure area callus was debrided. Patient was weaned off her supplemental oxygen. Labs were satisfactory. She did have some itchy skin for which hydroxyzine helped. Preliminary echocardiogram showed normal EF. On 07/19/2022 patient was stable to be discharged home. She was to follow-up with Dr. Matute in [address] Byers in 2 weeks. Exam Data for Last 24 hours Vital signs and Labs for Last 24 Hours: Temp Pulse Resp BP Pulse Ox 98.7 F 57 L 18 126/52 L 90 L 07/19/22 15:34 07/19/22 16:00 07/19/22 15:34 07/19/22 15:34 07/19/22 15:34 Microbiology Reports for the Last 24 Hours: Microbiology 07/18/22 Unknown Leg,Left Gram Stain - Final 07/18/22 Unknown Leg,Left Wound Culture - Final Staphylococcus aureus 07/18/22 Unknown Leg,Right Gram Stain - Final 07/18/22 Unknown Leg,Right Wound Culture - Final Staphylo
== END 2022-07-19 19:46 | disposition home or self-care (01) | DRG 264 ==
LOC: ER 13:13 → 2ND 15:28
PROVIDERS: Nurse Practitioner Family; Podiatrist; Admitting Provider Family Medicine; Emergency Provider Student in an Organized Health Care Education/Training Program; PCP Family Medicine; Visit Provider Family Medicine
DX: I11.0 Hypertensive heart disease with heart failure (principal); L89.613 Pressure ulcer of right heel, stage 3; I50.31 Acute diastolic (congestive) heart failure; L03.115 Cellulitis of right lower limb; L03.116 Cellulitis of left lower limb; I48.91 Unspecified atrial fibrillation; I08.0 Rheumatic disorders of both mitral and aortic valves; E78.5 Hyperlipidemia, unspecified; K21.9 Gastro-esophageal reflux disease without esophagitis; I25.10 Atherosclerotic heart disease of native coronary artery without angina pectoris; E11.9 Type 2 diabetes mellitus without complications; Z96.641 Presence of right artificial hip joint; G47.419 Narcolepsy without cataplexy; M15.9 Polyosteoarthritis, unspecified; F32.9 Major depressive disorder, single episode, unspecified; F41.9 Anxiety disorder, unspecified; E78.49 Other hyperlipidemia; E03.9 Hypothyroidism, unspecified; S91.301A Unspecified open wound, right foot, initial encounter; L89.519 Pressure ulcer of right ankle, unspecified stage
CPT/HCPCS: 11042; 36415; 71045; 73590; 80048; 80053; 82803; 83880; 84484; 85007; 85014; 85018; 85025; 85048; 85049; 85651; 86140; 87070; 87077; 87186; 87205; 93005; 93306; 94760; 94761; 99285; C9803; U0003; U0005

== ENCOUNTER → 2022-11-14 13:11 | Outpatient (CLI) | payer MEDICARE, MEDICAID, SELFPAY ==
[2022-11-14 13:19] LABS: Microscopic,Cath URINE MICROSCOPIC (MICROSCOPIC)
[2022-11-14 13:40] LABS: Appearance,Urine/Cath CLEAR (Clear); Bilirubin,Cath Negative (Negative); Blood, Urine/Cath Negative (Negative); Color,Urine/Cath YELLOW (Yellow); Glucose,Urine/Cath (UA) Negative (Negative); Ketones,Urine/Cath Negative (Negative); Leukocyte Esterase,Cath 1+ (Negative); Nitrate,Cath Negative (Negative); Protein,Urine/Cath Negative (Negative); Specific Gravity, Urine/Cath >= 1.030 (1.005-1.030); Urobilinogen,Cath 0.2 EU/dl (0.2)
== END ==
PROVIDERS: PCP Family Medicine; Visit Provider Family Medicine
DX: R30.0 Dysuria (principal); B96.4 Proteus (mirabilis) (morganii) as the cause of diseases classified elsewhere
CPT/HCPCS: 81001; 87086; 87088; 87186

== ENCOUNTER 2022-11-20 12:50 | Emergency (ER) | payer MEDICARE, MEDICAID, SELFPAY ==
[2022-11-20] VITALS (8 sets, daily range): BP systolic 129–150; BP diastolic 46–100; PULSE 48–82; RESP 17–26; TEMP 36.7–36.8; O2SAT 92–95; BMI 37.2
--- NOTE | 2022-11-20 12:46 | ECG_ITS ---
APPROVED REPORT Exam: Resting ECG HR:48 bpm ECG Measurements Heart Rate 48 AXES OH 159 P 52 QRSd 84 QRS -23 QT 463 T 6 QTc 429 Conclusion SINUS BRADYCARDIA BORDERLINE LEFT AXIS DEVIATION [QRS AXIS < -20] BORDERLINE ECG UNCONFIRMED REPORT Electronically signed by : Lance Santillan MD 11/24/2022 08:35:21
--- NOTE | 2022-11-20 13:01 | XR_ITS ---
FINAL REPORT CLINICAL HISTORY: soa COMPARISON: 07/17/2022 FINDINGS: A single portable view of the chest was obtained. The heart size and pulmonary vascularity are within normal limits. The mediastinum is within normal limits. There are low lung volumes. There are bibasilar opacities favoring atelectasis over pneumonia. The bony thorax is intact. IMPRESSION: Low lung volumes with bibasilar opacities, favor atelectasis over pneumonia. Reviewed, Interpreted and Dictated by Ulises Izaguirre III, MD Transcribed by Maryjo Baltazar Authenticated and . [facility]
[2022-11-20 13:35] LABS: Basophils % 0.5 % (0.1-2.0); Eosinophils # 0.7 K/mm3 (0.0-0.4); Eosinophils % 11.2 % (0.1-12.0); Hematocrit 37.2 % (37.0-47.0); Hemoglobin 11.3 g/dL (12.2-16.2); Lymphocytes # 1.2 K/mm3 (0.7-4.5); Lymphocytes % 18.1 % (10-50); Mean Corpuscular HGB Conc 30.4 g/dL (31.8-35.4); Mean Corpuscular Hemoglobin 25.6 pg (27.0-31.2); Mean Corpuscular Volume 84.2 fl (81-99); Mean Platelet Volume 9.5 fl (7.4-10.4); Monocytes # 0.3 K/mm3 (0.1-1.0); Monocytes % 4.3 % (1.7-9.3); Neutrophils # 4.3 K/mm3 (1.8-7.8); Neutrophils % 65.8 % (37.0-80.0); Platelet Count 175 K/mm3 (142-424); Red Blood Count 4.42 M/mm3 (4.20-5.40); Red Cell Distribution Width 17.2 % (11.5-17.5); White Blood Count 6.6 K/mm3 (4.8-10.8)
[2022-11-20 13:40] LABS: Chloride 108 mmol/L (98-107); Potassium 4.8 mmoL/L (3.5-5.1); Sodium 141 mmol/L (136-145)
[2022-11-20 13:42] LABS: Blood Urea Nitrogen 30 mg/dl (7-17); Creatinine Clearance Estimated 64 mL/min (50-200); Estimated Glomerular Filt Rate 48 ml/min (>60); GFR (African American) 58 ML/MIN (>60)
[2022-11-20 13:43] LABS: Alanine Aminotransferase 9 U/L (12-78); Albumin Level 3.6 g/dl (3.5-5.0); Albumin/Globulin Ratio 1.2 (1.1-1.8); Alkaline Phosphatase 80 U/L (38-126); Anion Gap 10.8 mEq/L (5-15); Aspartate Amino Transferase 15 U/L (14-36); Bilirubin,Total 0.3 mg/dl (0.2-1.3); Carbon Dioxide 27 mmol/L (22.0-30.0); Globulin 2.9 g/dL (1.3-3.2); Glucose 101 mg/dl (74-100); Total Protein,Serum 6.5 g/dl (6.3-8.2)
[2022-11-20 13:57] LABS: NT Pro Brain Natriuretic Pep. 1130 pg/mL (0-450)
[2022-11-20 14:25] LABS: Microscopic, Urine URINE MICROSCOPIC (MICROSCOPIC)
[2022-11-20 14:42] LABS: Appearance,Urine CLEAR (Clear); Bilirubin,Urine Negative (Negative); Blood, Urine Negative (Negative); Color,Urine YELLOW (Yellow); Glucose,Urine (UA) Negative (Negative); Ketones,Urine Negative (Negative); Leukocyte Esterase,Urine Negative (Negative); Nitrate,Urine Negative (Negative); PH,Urine 5.5 (5.0-8.5); Protein,Urine Negative (Negative); Specific Gravity, Urine >= 1.030 (1.005-1.030); Urobilinogen,Urine 0.2 EU/dl (0.2)
[2022-11-20 15:04] LABS: Squamous Epithelial Cell,Urine Occasional #/hpf (0-5); WBC,Urine Occasional #/hpf (0-3)
--- NOTE | 2022-11-20 15:12 | HMH.EDGENADL ---
Discharge Plan Disposition Patient Disposition: Home, Self-Care Chief Complaint: Shortness of Breath/Dyspnea Prescriptions Prescriptions: No Action meloxicam 7.5 mg tablet 7.5 mg PO DAILY Label Comments: TAKE ONE TABLET BY MOUTH EVERY DAY --TAKE WITH FOOD-- furosemide 20 mg tablet 20 mg PO DAILY buspirone 7.5 mg tablet 7.5 mg PO BID Label Comments: TAKE ONE TABLET BY MOUTH TWICE DAILY potassium chloride 10 mEq tablet extended release 10 meq PO DAILY cetirizine 10 mg tablet 10 mg PO DAILY Label Comments: TAKE ONE TABLET BY MOUTH DAILY levothyroxine [Synthroid] 25 mcg tablet 25 mcg PO DAILY Qty: 30 0RF diltiazem HCl 180 MG capsule,extended release 24hr 180 mg PO DAILY sertraline 100 MG tablet 150 mg PO DAILY famotidine 20 MG tablet 20 mg PO DAILY pantoprazole 40 MG tablet,delayed release (DR/EC) 40 mg PO DAILY mirtazapine 15 MG tablet 15 mg PO HS nadolol 80 MG tablet 80 mg PO DAILY Activity Restrictions/Add. Instructions Additional Instructions/Restrictions: Follow-up with Dr. Munroe with urology in [place] in the next week or so for removal of the Ag catheter. Call [phone] for appointment. Clinical Impressions Clinical Impression: Acute urinary retention Discharge ED Provider: Trae Rutledge General Adult HPI General Chief complaint: Shortness of Breath/Dyspnea Stated complaint: shortness of air Time Seen by Provider: 11/20/22 13:00 Mode of Arrival: EMS Source of Information: Patient Limitations: No Limitations Description of Symptoms (Recalled from ER Triage Doc. by RN): pt to ED via EMS form home with SOB and urinary pain and retention x 2 weeks. pt stated i just dribble all day and cant get a good stream. pt reports its making me SOB. History of Present Illness HPI narrative: 77-year-old female presents with urinary retention for 2 weeks. She says she has had dribbling. She dribbles on herself all day. She has mild shortness of breath but this is stable over the last several weeks. She has known aortic stenosis and is being evaluated in the outpatient setting for echocardiogram. She has no chest pain today fever chills or cough. No nausea vomiting diarrhea abdominal pain. No dysuria or hematuria. Related Data Home Medications Medication Instructions Recorded Confirmed nadolol 80 mg tablet 80 mg PO DAILY Hypertension 12/20/20 11/14/22 diltiazem HCl 180 mg 180 mg PO DAILY heart rate 02/18/22 11/14/22 capsule,extended release 24 hr famotidine 20 mg tablet 20 mg PO DAILY acid reflux 02/18/22 11/14/22 mirtazapine 15 mg tablet 15 mg PO HS MOOD 02/18/22 11/14/22 pantoprazole 40 mg tablet,delayed 40 mg PO DAILY GERD 02/18/22 11/14/22 release sertraline 100 mg tablet 150 mg PO DAILY MOOD 02/18/22 11/14/22 buspirone 7.5 mg tablet 7.5 mg PO BID Anxiety 06/06/22 11/14/22 cetirizine 10 mg tablet 10 mg PO DAILY Allergy symptoms 06/06/22 11/14/22 furosemide 20 mg tablet 20 mg PO DAILY Fluid 06/06/22 11/14/22 meloxicam 7.5 mg tablet 7.5 mg PO DAILY Pain 06/06/22 11/14/22 potassium chloride 10 mEq 10 meq PO DAILY Supplement 06/06/22 11/14/22 tablet,extended release Previous Rx's Medication Instructions Recorded levothyroxine 25 mcg tablet 25 mcg PO DAILY hypothyroidism #30 11/18/20 (Synthroid) tabs Allergies Allergy/AdvReac Type Severity Reaction Status Date / Time pseudoephedrine Allergy Severe Difficulty Verified 11/14/22 16:30 Breathing azithromycin Allergy Unknown Unknown Verified 11/14/22 16:30 allergy reaction Cephalosporins Allergy Unknown Gastrointestinal Verified 11/14/22 16:30 Upset chocolate flavor Allergy Unknown Unknown Verified 11/14/22 16:30 allergy reaction clarithromycin Allergy Unknown Unknown Verified 11/14/22 16:30 allergy reaction erythromycin base Allergy Unknown Rash Verified 11/14/22 16:30 guaifenesin Allergy Unknown Un
--- NOTE | 2022-11-20 16:01 | PC.NURSE ---
pt is to be sent home with indwelling catheter per MD. pt offered leg bag but stated she wanted to keep the large tejada bag on because she doesnt want to have to empty it that much. pt reports she doesnt go many places and takes a fluid pill so she would like the bigger bag. this nurse sent pt home with 10ml syringe and educated the pt and pt family on how to use it to remove the catheter if needed before her follow up next week.
== END 2022-11-20 16:28 | disposition home or self-care (01) ==
PROVIDERS: Emergency Provider Emergency Medicine; PCP Family Medicine
DX: R06.02 Shortness of breath (principal); R33.9 Retention of urine, unspecified
CPT/HCPCS: 51702; 71045; 80053; 81001; 83880; 85025; 93005; 96374; 99284; 99285

== ENCOUNTER → 2022-12-05 12:27 | Outpatient (CLI) | payer MEDICARE, MEDICAID, SELFPAY | PROVIDERS: PCP Family Medicine; Visit Provider Physician Assistant | DX: R06.02 Shortness of breath (principal); R07.9 Chest pain, unspecified; I35.0 Nonrheumatic aortic (valve) stenosis; I50.30 Unspecified diastolic (congestive) heart failure | CPT/HCPCS: 78452; 93017; 93306; A9502; J0280; J2785 ==

== ENCOUNTER → 2022-12-22 08:42 | Outpatient (CLI) | payer MEDICARE, MEDICAID, SELFPAY ==
[2022-12-22 10:18] LABS: Anion Gap 16.5 mEq/L (5-15); Blood Urea Nitrogen 27 mg/dl (7-17); Calcium 8.6 mg/dl (8.4-10.2); Carbon Dioxide 26 mmol/L (22.0-30.0); Chloride 102 mmol/L (98-107); Estimated Glomerular Filt Rate 48 ml/min (>60); GFR (African American) 58 ML/MIN (>60); Glucose 96 mg/dl (74-100); Potassium 4.5 mmoL/L (3.5-5.1); Sodium 140 mmol/L (136-145)
== END ==
PROVIDERS: PCP Family Medicine; Visit Provider Physician Assistant
DX: E78.5 Hyperlipidemia, unspecified (principal); I50.9 Heart failure, unspecified; R06.02 Shortness of breath
CPT/HCPCS: 36415; 80048

== ENCOUNTER → 2023-02-07 12:21 | Outpatient (CLI) | payer MEDICARE, MEDICAID, SELFPAY ==
--- NOTE | 2023-02-07 12:40 | US_ITS ---
FINAL REPORT CLINICAL HISTORY: PVE, bilateral leg pain and edema, bilateral oozing wounds, HLD, HTN, CAD, FINDINGS: BILATERAL ANKLE BRACHIAL INDICES Pressure indices are as follows are: RIGHT LOWER EXTREMITY Ankle brachial pressure index: 1.8 Toe brachial pressure index: 0.8 LEFT LOWER EXTREMITY Ankle brachial pressure index: 1.8 Toe brachial pressure index: 0.8 IMPRESSION: Ankle-brachial indices consistent with noncompressible vessels. Reviewed, Interpreted and Dictated by Ulises Izaguirre III, MD Transcribed by Karena Wiseman Authenticated and [facility]
== END ==
PROVIDERS: PCP Family Medicine; Visit Provider Family Medicine
DX: R09.89 Other specified symptoms and signs involving the circulatory and respiratory systems (principal)
CPT/HCPCS: 93923

== ENCOUNTER 2023-03-26 06:48 | Day surgery (SDC) | payer MEDICARE, MEDICAID, SELFPAY ==
[2023-03-26] VITALS (12 sets, daily range): BP systolic 110–158; BP diastolic 38–80; PULSE 51–91; RESP 17–24; O2SAT 92–96; BMI 36.3
--- NOTE | 2023-03-26 07:03 | IR_ITS ---
APPROVED REPORT Patient Location: Outpatient PROCEDURES Right radial arterial access Catheter placement in the left external iliac artery Left external iliac artery antegrade angiogram with unilateral runoff to the left foot Catheter placement in the right common femoral artery Right common femoral artery antegrade angiogram with unilateral runoff to the right foot INDICATION Poorly healing lower extremity ulcers, Abnormal KRISS Informed consent was obtained prior to the procedure. COMPLICATIONS None Estimated Blood Loss: Less than 10 ml TECHNIQUE One percent lidocaine used to anesthetize the right anterior aspect of the wrist. The right radial artery was accessed via the Seldinger technique. A 6 Syriac sheath was placed in the right radial artery. 2.5 mg of Verapamil, 800 mcg of nitroglycerin, 1mg Lidocaine and 5000 U Heparin were given through the arterial sheath. A 5 Syriac trap catheter was placed in the transverse aorta and an advantage wire was placed in the descending aorta under fluoroscopic guidance. Following this a PV multi curve catheter was placed into the left external iliac artery were left external iliac artery antegrade angiography was performed with unilateral runoff to the left foot. Left common femoral artery was noted to have a +2 pulse therefore contrast was spared and aorta iliac angiography was not performed. This technique was repeated with the catheter being advanced into the right common femoral artery. After bilateral runoff was performed the apparatus was removed the sheath was removed and hemostasis was achieved using TR banding and the patient was transferred the postop putting in stable condition ANGIOGRAPHIC RESULTS By physical exam the bilateral common iliac arteries are noted to be widely patent Left internal and external iliac arteries are patent. Left common femoral arteries patent. Left profunda femoris artery is patent. Left superficial femoral artery is widely patent into the popliteal artery with three-vessel runoff below the knee on the left side Right common femoral artery, profunda femoris artery, superficial femoral artery, popliteal arteries are widely patent. There is three-vessel runoff below the right side IMPRESSION Patent arterial vasculature as described above Etiology for ulcers likely stems from venous insufficiency PLAN 1. Treatment of venous insufficiency Electronically signed by : Wild Barbosa MD 03/26/2023 13:32:53
[2023-03-26 08:17] LABS: Basophils % 0.2 % (0.1-2.0); Eosinophils # 0.6 K/mm3 (0.0-0.4); Eosinophils % 7.1 % (0.1-12.0); Hematocrit 34.4 % (37.0-47.0); Hemoglobin 10.9 g/dL (12.2-16.2); Lymphocytes # 1.2 K/mm3 (0.7-4.5); Lymphocytes % 13.7 % (10-50); Mean Corpuscular HGB Conc 31.8 g/dL (31.8-35.4); Mean Corpuscular Hemoglobin 25.4 pg (27.0-31.2); Mean Corpuscular Volume 80.1 fl (81-99); Mean Platelet Volume 9.1 fl (7.4-10.4); Monocytes # 0.4 K/mm3 (0.1-1.0); Monocytes % 4.6 % (1.7-9.3); Neutrophils # 6.4 K/mm3 (1.8-7.8); Neutrophils % 74.4 % (37.0-80.0); Platelet Count 193 K/mm3 (142-424); Red Blood Count 4.29 M/mm3 (4.20-5.40); Red Cell Distribution Width 18.1 % (11.5-17.5); White Blood Count 8.6 K/mm3 (4.8-10.8)
[2023-03-26 08:28] LABS: Anion Gap 16.8 mEq/L (5-15); Blood Urea Nitrogen 43 mg/dl (7-17); Calcium 8.8 mg/dl (8.4-10.2); Carbon Dioxide 21 mmol/L (22.0-30.0); Chloride 110 mmol/L (98-107); Creatinine Clearance Estimated 45 mL/min (50-200); Estimated Glomerular Filt Rate 34 ml/min (>60); GFR (African American) 41 ML/MIN (>60); Glucose 105 mg/dl (74-100); Potassium 5.8 mmoL/L (3.5-5.1); Sodium 142 mmol/L (136-145)
--- NOTE | 2023-03-26 14:21 | SUR.PHASEII ---
bilateral lower extremity dressing changes performed by Judi and Kalin. wounds irrigated and dressed with nonadherent bandages, kerlex and jesse wrap. PMS+ after dressig change. tolerated well
--- NOTE | 2023-03-26 14:41 | SUR.PHASEII ---
spoke with Faiza in care management about pt needing home health and wound care. reported they would come down and speak to her at bedside at this time
--- NOTE | 2023-03-26 14:54 | SW/DCPLANNER ---
[facility] is currently working to set this patient up with [facility].
== END 2023-03-26 14:50 | disposition home or self-care (01) ==
PROVIDERS: PCP Family Medicine; Visit Provider Internal Medicine
DX: I11.0 Hypertensive heart disease with heart failure (principal); E78.5 Hyperlipidemia, unspecified; I35.0 Nonrheumatic aortic (valve) stenosis; I48.91 Unspecified atrial fibrillation; I50.30 Unspecified diastolic (congestive) heart failure; I89.0 Lymphedema, not elsewhere classified; L03.115 Cellulitis of right lower limb; L03.116 Cellulitis of left lower limb; R06.02 Shortness of breath; R60.9 Edema, unspecified; I70.213 Atherosclerosis of native arteries of extremities with intermittent claudication, bilateral legs; Z79.899 Other long term (current) drug therapy; I77.1 Stricture of artery
CPT/HCPCS: 36247; 36248; 75716; 80048; 85025; 99152; 99153; C1725; C1769; C1894; J1644; Q9966

== ENCOUNTER → 2023-04-26 14:00 | Outpatient (CLI) | payer MEDICARE, MEDICAID, SELFPAY ==
--- NOTE | 2023-04-26 14:03 | US_ITS ---
FINAL REPORT TECHNIQUE: Real-time grayscale and color ultrasound of the thyroid was performed. CLINICAL HISTORY: THYROMEGALY COMPARISON: None FINDINGS: The thyroid gland measures 25 mm on the right and 38 mm on the left. The isthmus measures 3 mm. Nodules: Right 3 x 3 x 2 mm cystic TR 1 nodule. Left 25 x 16 x 16 cystic and solid isoechoic TR 2 nodule. IMPRESSION: Bilateral thyroid nodules with no follow-up required per TI-RADS criteria. Reviewed, Interpreted and Dictated by Ulises Izaguirre III, MD Transcribed by Faiza Morales Authenticated and . [facility]
== END ==
PROVIDERS: PCP Family Medicine; Visit Provider Family Medicine
DX: E01.0 Iodine-deficiency related diffuse (endemic) goiter (principal)
CPT/HCPCS: 76536

== ENCOUNTER 2023-05-29 15:30 | Outpatient (RCR) | payer MEDICARE, MEDICAID, SELFPAY ==
--- NOTE | 2023-04-22 16:02 | HMH.PTOPWND ---
Rehab Outpt Wound Evaluation Rehab OP Wound Evaluation Start: 04/22/23 14:09 Freq: Status: Active Protocol: Document 04/22/23 15:47 PHORJASMYN (Rec: 04/22/23 16:02 PHORNE [id number]) E-signed By Reno Ann, PT Subjective/History History History This is the initial PT eval for Lian Bliss, 78 yowf who presents with c/o B LE wounds and swelling x ~ 2 yrs with insidious onset of symptoms. She reports significant decrease in overall mobility due to mutliple medical problems, which compunds her problems with her legs. She reports significant pain in B LE. She also reports she spends most of her time sitting and can only stand for , long enough to get my clothes on or get over to the toilet. She reports she uses paper towels to cover her wounds due to the large amounts of weeping drainage. She has PMH of CHF, anxiety, a -fib, HLD, HTN, DM, PARVIZ, CCY, R VISHAL, R TKA, L breast lumpectomy. Subjective Subjective Pt presents with c/o 9/10 pain in B LE this date. 2+ pitting edema and 3/4 TTP noted to B lower legs. Severe blanchable erythema to B LE with multiple open sores noted. Only the largest of ~25 open wounds on each leg were measured. New diagnosis of cancer in past 12 No months? Wound Eval Wound Left Lower Leg Wound Type Stasis Ulcer Is This a Chronic Wound Yes Wound Length (cm) 2.0 Wound Width (cm) 1.3 Wound Depth (cm) 0.1 Wound Bed Appearance Beefy Red Wound Margins Description Indistinct Surrounding Tissue Appearance Bright Red Edema Type Pitting Edema Degree 2+ Query Text:1+ Trace, Barely Detectable, Rebound 15-30 seconds 2+ Moderate, Slight Indentation, Rebound 10-20 seconds 3+ Deep, Deeper Indentation, Rebound > 30 seconds 4+ Very Deep, Rebound > 60 seconds
--- NOTE | 2023-05-29 16:13 | HMH.RHREAS ---
Rehab Reassessment Rehab OP Re-assessment Start: 04/22/23 14:09 Freq: Status: Active Protocol: Document 05/29/23 16:07 TRISH (Rec: 05/29/23 16:13 PHORJASMYN [id number]) E-signed By Reno Ann, PT Rehab Re-assessment Subjective Subjective Pt reports, I couldn't make it because my buggy wouldn't drive for a while, it wouldn't charge the battery. She reports feeling better overall , but continued wound to the posterior R calf and new blister on the lateral L malagon. Objective Objective Notes R posterior calf wound: L= 1.2 cm, W= 1.0 cm, D= 0.1 cm Wound with minimal partial thickness depth and only mild serous drainage noted. L lateral malagon blister: L= 1.5 cm, W= 1.1 cm, D= 0 cm No open sore at this time, bullous area only noted without drainage. Assessment Progress Assessment Progressing as Expected Assessment Notes Pt has shown significant improvement in overall wound surface area. She has difficulty following HEP due to her baseline mobility issues. She continues to need skilled intervention to return to prior level of function. Patient goals met ST,2,3,4 LT,3,5 Goals Not Met LT,4,6,7 Plan Plan Cotninue per initial POC. Frequency of Therapy 1-2 x/wk Duration of therapy 4 wks Time and Billing Re-Eval Time 13 Re-Eval Billing Units 1 PHYSICIAN CERTIFICATION: I certify the specified therapy services for Lian Bliss are required, authorized, and reviewed every 30 days.
== END 2023-05-29 15:35 | disposition home or self-care (01) ==
LOC: PT 15:30
PROVIDERS: PCP Family Medicine; Visit Provider Nurse Practitioner Family
DX: I89.0 Lymphedema, not elsewhere classified (principal); L03.115 Cellulitis of right lower limb; L03.116 Cellulitis of left lower limb
CPT/HCPCS: 29580; 97140; 97163; 97164; 97597

== ENCOUNTER → 2023-06-28 11:49 | Outpatient (CLI) | payer MEDICARE, MEDICAID, SELFPAY ==
--- NOTE | 2023-06-28 11:54 | XR_ITS ---
FINAL REPORT CLINICAL HISTORY: BRONCHITIS COMPARISON: 11/20/2022 FINDINGS: 2 views of the chest were obtained . The heart is normal in size. There is been interval removal of PICC line. The mediastinum is within normal limits. The lungs are underinflated with right lower lobe atelectasis.. There is no pneumothorax. Osseous structures are unremarkable. IMPRESSION: Underinflation with right lower lobe atelectasis. Reviewed, Interpreted and Dictated by Nadir Hall MD Transcribed by Noni Overton Authenticated and [facility]
== END ==
PROVIDERS: PCP Family Medicine; Visit Provider Physician Assistant
DX: J40 Bronchitis, not specified as acute or chronic (principal)
CPT/HCPCS: 71046

== ENCOUNTER 2023-09-04 21:01 | Emergency (ER) | payer MEDICARE, MEDICAID, SELFPAY ==
[2023-09-04] VITALS (7 sets, daily range): BP systolic 126–156; BP diastolic 46–77; PULSE 73–82; RESP 16–20; TEMP 36.7; O2SAT 89–94; BMI 35.0
--- NOTE | 2023-09-04 21:08 | XR_ITS ---
PROCEDURE INFORMATION: Exam: XR Chest Exam date and time: 09/04/2023 9:12 PM Age: 78 years old Clinical indication: Pain; Chest pressure; Additional info: Cp TECHNIQUE: Imaging protocol: Radiologic exam of the chest. Views: 1 view. COMPARISON: CR XR CHEST 2V 06/28/2023 11:57 AM FINDINGS: Lungs: Low lung volumes with elevated right hemidiaphragm and mild right lung base atelectasis is unchanged. Pleural spaces: Normal No pleural effusion. No pneumothorax. Heart/Mediastinum: Mildly enlarged cardiac silhouette is likely artifactual and related to low lung volumes. Vasculature: Tortuous atherosclerotic thoracic aorta. Bones/joints: Thoracic spine and bilateral acromioclavicular joint degenerative change. IMPRESSION: Low lung volumes with elevated right hemidiaphragm and mild right lung base atelectasis is unchanged.
--- NOTE | 2023-09-04 21:11 | ECG_ITS ---
APPROVED REPORT Exam: Resting ECG HR:69 bpm ECG Measurements Heart Rate 69 AXES W[place] 161 P 71 QRSd 83 QRS -20 QT 386 T 43 QTc 406 Conclusion SINUS RHYTHM NORMAL ECG UNCONFIRMED REPORT Electronically signed by : Lance Santillan MD 09/06/2023 14:38:46
[2023-09-04 21:29] LABS: Basophils % 0.6 % (0.1-2.0); Eosinophils # 0.4 K/mm3 (0.0-0.4); Eosinophils % 7.6 % (0.1-12.0); Hemoglobin 10.9 g/dL (12.2-16.2); Lymphocytes % 18.1 % (10-50); Mean Corpuscular HGB Conc 32.1 g/dL (31.8-35.4); Mean Corpuscular Hemoglobin 27.1 pg (27.0-31.2); Mean Corpuscular Volume 84.4 fl (81-99); Mean Platelet Volume 10.8 fl (7.4-10.4); Monocytes # 0.3 K/mm3 (0.1-1.0); Monocytes % 5.6 % (1.7-9.3); Neutrophils # 3.9 K/mm3 (1.8-7.8); Neutrophils % 68.2 % (37.0-80.0); Platelet Count 145 K/mm3 (142-424); Red Blood Count 4.03 M/mm3 (4.20-5.40); Red Cell Distribution Width 18.1 % (11.5-17.5); White Blood Count 5.7 K/mm3 (4.8-10.8)
[2023-09-04 21:45] LABS: Chloride 107 mmol/L (98-107); Potassium 4.5 mmoL/L (3.5-5.1); Sodium 140 mmol/L (136-145)
[2023-09-04 21:48] LABS: Alanine Aminotransferase 14 U/L (12-78); Albumin Level 3.8 g/dl (3.5-5.0); Albumin/Globulin Ratio 1.3 (1.1-1.8); Anion Gap 12.5 mEq/L (5-15); Aspartate Amino Transferase 25 U/L (14-36); Blood Urea Nitrogen 20 mg/dl (7-17); Carbon Dioxide 25 mmol/L (22.0-30.0); Creatinine Clearance Estimated 55 mL/min (50-200); Estimated Glomerular Filt Rate 43 ml/min (>60); GFR (African American) 53 ML/MIN (>60); Total Protein,Serum 6.8 g/dl (6.3-8.2)
[2023-09-04 21:49] LABS: Calcium 8.7 mg/dl (8.4-10.2); Glucose 105 mg/dl (74-100)
[2023-09-04 22:03] LABS: Troponin I < 0.01 ng/ml (0.00-0.034)
[2023-09-04 22:44] LABS: Alkaline Phosphatase 74 U/L (38-126); Bilirubin,Total 0.6 mg/dl (0.2-1.3)
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
[2023-09-04] MEDS: ONDANSETRON 4MG/2ML VIAL 4 MG IV (23:56)
[2023-09-04] MEDS: MORPHINE 4MG/ML SYRINGE 2 MG IV (23:56)
[2023-09-04] MEDS: ACETAMINOPHEN 1,000MG/100ML VIAL 1000 MG IV (23:56)
[2023-09-05 00:02] VITALS: BP 178/75; PULSE 85; RESP 20; O2SAT 93
[2023-09-05 00:31] VITALS: BP 122/52; PULSE 77; O2SAT 95
[2023-09-05 00:38] LABS: Troponin I < 0.01 ng/ml (0.00-0.034)
[2023-09-05 01:04] VITALS: BP 132/43; PULSE 86; O2SAT 94
[2023-09-05 01:08] VITALS: BP 129/51; PULSE 78; RESP 16; TEMP 36.7; O2SAT 93
== END 2023-09-05 01:12 | disposition home or self-care (01) ==
PROVIDERS: Emergency Provider Emergency Medicine; PCP Family Medicine
DX: R07.9 Chest pain, unspecified (principal); M79.602 Pain in left arm; I11.0 Hypertensive heart disease with heart failure; I50.30 Unspecified diastolic (congestive) heart failure; I48.91 Unspecified atrial fibrillation; K21.9 Gastro-esophageal reflux disease without esophagitis; R01.1 Cardiac murmur, unspecified; E78.5 Hyperlipidemia, unspecified; E03.9 Hypothyroidism, unspecified; E11.9 Type 2 diabetes mellitus without complications
CPT/HCPCS: 71045; 80053; 84484; 85025; 93005; 96374; 96375; 99285; J0131; J2405

== ENCOUNTER 2024-03-13 09:07 | Outpatient (CLI) | payer MEDICARE, MEDICAID, SELFPAY ==
--- NOTE | 2024-03-13 09:14 | US_ITS ---
FINAL REPORT CLINICAL HISTORY: WOUNDS BILATERAL CALFS,WOUND RT HEEL X 2 YEARS,HTN,REST PAIN,CLAUDICATION COMPARISON: None FINDINGS: ANKLE-BRACHIAL PRESSURE INDICES This exam is extremely limited secondary to the patient's inability to tolerate examination of the calf and thigh indices. The exam compares ankle and toe indices. Pressure indices are as follows: RIGHT LOWER EXTREMITY: Ankle-brachial pressure index: 1.55 Comments: Normal LEFT LOWER EXTREMITY: Ankle-brachial pressure index: 1.41 Comments: Normal CONCLUSION: Extremely limited study as described, only evaluating the ankle and toe indices secondary to patient's inability to tolerate the procedure. No significant arterial disease is seen in the lower extremities at the level of the distal calf and foot. Reviewed, Interpreted and Dictated by Nadir Hall MD Transcribed by Cherelle Horowitz Authenticated and [facility]
== END 2024-03-13 23:59 | disposition home or self-care (01) ==
LOC: RT 09:10
PROVIDERS: PCP Nurse Practitioner Family; Visit Provider Nurse Practitioner
DX: I73.9 Peripheral vascular disease, unspecified (principal)
CPT/HCPCS: 93923

== ENCOUNTER 2024-07-03 12:33 | Inpatient (IN) | payer MEDICARE, SELFPAY ==
[2024-07-03] VITALS (16 sets, daily range): BP systolic 103–161; BP diastolic 40–77; PULSE 64–98; RESP 15–24; TEMP 36.4–37; O2SAT 90–100; BMI 31.8
--- NOTE | 2024-07-03 12:35 | ECG_ITS ---
APPROVED REPORT Exam: Resting ECG HR:75 bpm ECG Measurements Heart Rate 75 AXES VT 160 P 71 QRSd 87 QRS -22 QT 385 T 84 QTc 415 Conclusion SINUS RHYTHM WITH SINUS ARRHYTHMIA BORDERLINE LEFT AXIS DEVIATION [QRS AXIS < -20] NONSPECIFIC T-WAVE ABNORMALITY BORDERLINE ECG UNCONFIRMED REPORT Electronically signed by : LENIN ASHFORD, 07/04/2024 23:11:59
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
[2024-07-03 12:53] LABS: Adenovirus,PCR Not Detected (NotDetected); Bordetella Pertussis Not Detected (NotDetected); Chlamydophila Pneumoniae, PCR Not Detected (NotDetected); Coronavirus 19, PCR Not Detected (NotDetected); Coronavirus 229E Not Detected (NotDetected); Coronavirus NL63 Not Detected (NotDetected); Coronavirus OC43 Not Detected (NotDetected); Coronovirus HKU1,PCR Not Detected (NotDetected); Human Metapneumovirus Not Detected (NotDetected); Influenza A, PCR Not Detected (NotDetected); Influenza AH1, 2009 Not Detected (NotDetected); Influenza AH1, PCR Not Detected (NotDetected); Influenza AH3,PCR Not Detected (NotDetected); Influenza B, PCR Not Detected (NotDetected); Mycoplasma Pneumoniae, PCR Not Detected (NotDetected); Parainfluenza 1, PCR Not Detected (NotDetected); Parainfluenza 2, PCR Not Detected (NotDetected); Parainfluenza 3, PCR Not Detected (NotDetected); Parainfluenza 4, PCR Not Detected (NotDetected); Respiratory Syncytial Virus Not Detected (NotDetected); Rhinovirus/Enterovirus Not Detected (NotDetected)
[2024-07-03 12:55] LABS: Albumin Level 3.7 g/dl (3.5-5.0); Chloride 113 mmol/L (98-107); Potassium 4.9 mmoL/L (3.5-5.1); Sodium 142 mmol/L (136-145)
[2024-07-03 12:55] LABS: Lactate Venous 1.1 mmol/L (0.4-2.0); VBG Base Excess -6.8 mmol/L (-2.4-2.3); VBG HCO3 20.6 mmol/L (23-30); VBG Oxygen Saturation 87.3 % (50-70); VBG PCO2 49.2 mmol/L (35-51); VBG PH 7.24 mmol/L (7.31-7.41); VBG PO2 59.3 mmol/L (28-40); VBG Total CO2 22.1 mmol/L (23-27)
[2024-07-03 12:56] LABS: Basophils % 0.5 % (0.1-2.0); Eosinophils # 0.2 K/mm3 (0.0-0.4); Eosinophils % 3.2 % (0.1-12.0); Hematocrit 30.9 % (37.0-47.0); Hemoglobin 9.6 g/dL (12.2-16.2); Lymphocytes % 18.7 % (10-50); Mean Corpuscular HGB Conc 30.9 g/dL (31.8-35.4); Mean Corpuscular Hemoglobin 26.5 pg (27.0-31.2); Mean Corpuscular Volume 85.8 fl (81-99); Monocytes # 0.3 K/mm3 (0.1-1.0); Monocytes % 5.5 % (1.7-9.3); Neutrophils % 72.1 % (37.0-80.0); Platelet Count 138 K/mm3 (142-424); Red Cell Distribution Width 17.7 % (11.5-17.5); White Blood Count 5.5 K/mm3 (4.8-10.8)
[2024-07-03 12:57] LABS: Blood Urea Nitrogen 26 mg/dl (7-17); Creatinine Clearance Estimated 42 mL/min (50-200); Estimated Glomerular Filt Rate 36 ml/min (>60); GFR (African American) 44 ML/MIN (>60)
[2024-07-03] MEDS: IPRATROPIUM/ALBUTEROL 3 ML NEB IH ×2 (12:57→15:10)
[2024-07-03 12:58] LABS: Alanine Aminotransferase 9 U/L (12-78); Albumin/Globulin Ratio 1.4 (1.1-1.8); Alkaline Phosphatase 67 U/L (38-126); Anion Gap 8.9 mEq/L (5-15); Aspartate Amino Transferase 14 U/L (14-36); Bilirubin,Total 0.4 mg/dl (0.2-1.3); Calcium 8.7 mg/dl (8.4-10.2); Carbon Dioxide 25 mmol/L (22.0-30.0); Globulin 2.7 g/dL (1.3-3.2); Glucose 97 mg/dl (74-100); Total Protein,Serum 6.4 g/dl (6.3-8.2)
[2024-07-03 13:00] LABS: INR 0.98 (0.9-1.1)
[2024-07-03 13:08] LABS: NT Pro Brain Natriuretic Pep. 4940 pg/mL (0-450)
[2024-07-03 13:11] LABS: Troponin I 0.02 ng/ml (0.00-0.034)
--- NOTE | 2024-07-03 13:15 | XR_ITS ---
PROCEDURE INFORMATION: Exam: XR Chest Exam date and time: 07/03/2024 1:39 PM Age: 79 years old Clinical indication: Shortness of breath; Additional info: Acute hypoxemic respiratory failure TECHNIQUE: Imaging protocol: Radiologic exam of the chest. Views: 1 view. COMPARISON: CR XR CHEST PORTABLE 09/04/2023 9:12 PM FINDINGS: Lungs: Opacities in the left upper lobe and medial right lower lobe may represent multifocal pneumonia.. Pleural spaces: Unremarkable. No pleural effusion. No pneumothorax. Heart/Mediastinum: Mild cardiomegaly and prominent interstitial densities may represent interstitial edema.. Vasculature: Calcifications in the abdomen may represent splenic artery calcifications Bones/joints: Unremarkable. IMPRESSION: 1. Opacities in the left upper lobe and medial right lower lobe may represent multifocal pneumonia.. 2. Mild cardiomegaly and prominent interstitial densities may represent interstitial edema..
[2024-07-03 13:42] LABS: Procalcitonin 0.054 ng/mL (0.0-2.0)
[2024-07-03] MEDS: FUROSEMIDE 40MG/4ML VIAL 80 MG IV (14:09)
--- NOTE | 2024-07-03 14:13 | CA_ITS ---
APPROVED REPORT EXAM: Comprehensive 2D, Doppler, and color-flow Echocardiogram Client Service And Consulting Manager: Graciela Aggarwal RVT Ht: 5 ft 3 in Wt: 180lbs BSA: 1.85 BP: 132/48 mmHg Indications: SOA,CHF,HTN,HLD,DM,MURMUR 2D Dimensions IVSd 1.76 cm F: 0.6-1.0 LVEF (Visual) 84.70 % PWd 1.10 cm F: 0.6 - 1.0 LA Volume 122.80 mL LVDd 4.12 cm F: 3.9 - 5.3 LA Volume Index 66.38 mL/m2 (M/F) 16-34 LVDs 1.92 cm F: 2.2 - 3.5 M-Mode Dimensions RVDd 2.72 cm (0.9-2.6) LA Diam 5.25 cm (1.9-4.0) LVDd 4.02 cm (3.5-5.7) LVDs 2.55 cm (3.5-5.7) IVSd 1.25 cm (0.6-1.1) PWd 0.94 cm (0.6-1.1) EF (Teich) 66.90% FS 36.60% EDV (Teich) 70.80 mL TAPSE 2.35 (<1.7) ESV (Teich) 23.40 mL LV Diastology E Decel Time 187 (160-240 msec) E/A Ratio 1.1 Aortic Valve ABHI Index 0.74 cm2/m2 AoV Peak Pravin. 318.0 (50-130 cm/s) AO Peak GR. 40.60 mmHg AO Mean GR. 22.90 (<5 mmHg) AO VTI 77.3 (18-25 cm) ABHI (VTI) 1.39 (2.5-4.5 cm2) Mitral Valve MV E Max Pravin. 115.0 (40-130 cm/s) MV A Velocity 106.0 (40-130 cm/s) E/A Ratio 1.08 MV Mean Gr. 3.40 (<2mmHg) MV PHT 55.0 ms Tricuspid Valve TR P. Velocity 352.00 cm/s RAP Estimate 10.00 mmHg RVSP 59.60 mmHg Left Ventricle The left ventricle is normal size. The left ventricular systolic function is mildly reduced. There is increased LV wall thickness. Grade 2 diastolic dysfunction is present. LVEF is 45%. Right Ventricle The right ventricle is mildly dilated. Right ventricle is mildly hypokinetic. Atria Left atrium is moderately dilated. The right atrium size is normal. There is no Doppler evidence of interatrial shunt. Aortic Valve Aortic valve is moderately thickened. Moderate aortic stenosis is present. ABHI by continuity equation is 1.3 cm2. Peak velocity 3.0 m/s. Mean AV gradient 20 mmHg. Max AV gradient 35 mmHg. Mild aortic regurgitation. Mitral Valve The mitral valve leaflets are mildly thickened. No evidence of mitral valve stenosis. Mild mitral regurgitation. Tricuspid Valve The tricuspid valve leaflets are thin and pliable. Mild to moderate tricuspid regurgitation. RVSP is 50-55 mmHg. Pulmonic Valve The pulmonary valve is normal in structure. Mild pulmonic regurgitation. Great Vessels The aortic root is normal in size. The ascending aorta is not well-visualized. The IVC is dilated. Pericardium There is no pericardial effusion. Other Information Study Quality: Fair Conclusion Mild reduction in LV systolic function (LVEF 45%). Grade 2 diastolic dysfunction. Mild RV dilation with mild reduction in RV function. Biatrial dilation. Moderate (BAHI by continuity equation is 1.3 cm2. Peak velocity 3.0 m/s. Mean AV gradient 20 mmHg. Max AV gradient 35 mmHg). Mild to moderate TR. Mild AI, mild MR, mild PI. Markedly elevated RVSP 50-55 mmHg. Electronically signed by : Joceline Smyth MD 07/06/2024 00:45:25
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
--- NOTE | 2024-07-03 14:14 | PC.NURSE ---
HS aware of admission
[2024-07-03 15:06] LABS: Thyroid Stimulating Hormone 1.97 uIU/mL (0.465-4.68)
--- NOTE | 2024-07-03 15:16 | PC.NURSE ---
pt to 2nd floor via stretcher with Nurse and tech and RT.
--- NOTE | 2024-07-03 15:17 | PC.NURSE ---
arrived by stretcher from ED
[2024-07-03 15:37] LABS: Microscopic, Urine URINE MICROSCOPIC (MICROSCOPIC)
[2024-07-03 15:39] LABS: Appearance,Urine CLEAR (Clear); Bilirubin,Urine Negative (Negative); Blood, Urine Negative (Negative); Color,Urine YELLOW (Yellow); Glucose,Urine (UA) Negative (Negative); Ketones,Urine Negative (Negative); Leukocyte Esterase,Urine Negative (Negative); Nitrate,Urine POSITIVE (Negative); Protein,Urine Negative (Negative); Specific Gravity, Urine 1.025 (1.005-1.030); Urobilinogen,Urine 0.2 EU/dl (0.2)
[2024-07-03 15:55] LABS: Bacteria,Urine 4+ /lpf; Squamous Epithelial Cell,Urine Occasional #/hpf (0-5); WBC,Urine 20-50 #/hpf (0-3)
[2024-07-03 16:29] LABS: Lactate Venous 1.4 mmol/L (0.4-2.0); VBG Base Excess -2.1 mmol/L (-2.4-2.3); VBG HCO3 24.2 mmol/L (23-30); VBG Oxygen Saturation 58.8 % (50-70); VBG PH 7.31 mmol/L (7.31-7.41); VBG PO2 30.8 mmol/L (28-40); VBG Total CO2 25.7 mmol/L (23-27)
--- NOTE | 2024-07-03 16:37 | PC.WOUNDNOTE ---
right top calf
--- NOTE | 2024-07-03 16:37 | PC.WOUNDNOTE ---
right medial calf
[2024-07-03 16:51] LABS: Troponin I 0.02 ng/ml (0.00-0.034)
[2024-07-03] MEDS: ACETAMINOPHEN 325MG TAB 650 MG PO (17:39)
[2024-07-03] MEDS: CEFTRIAXONE SODIUM 1 GM in 0.9 % SODIUM CHLORIDE 50 ML IV (17:41)
[2024-07-03] MEDS: NYSTATIN TOPICAL POWDER 30GM TP ×2 (17:41→21:27)
[2024-07-03] MEDS: BUMETANIDE 1MG/4ML VIAL 2 MG IV (17:41)
[2024-07-03 18:48] LABS: HIV (1&2) Antibody Rapid NONREACTIVE (NONREACTIVE)
[2024-07-03 19:22] LABS: Troponin I 0.02 ng/ml (0.00-0.034)
[2024-07-03] MEDS: BUSPIRONE HCL 5 MG TABLET 7.5 MG PO (21:23)
[2024-07-03] MEDS: MIRTAZAPINE 15 MG TABLET PO (21:26)
[2024-07-03] MEDS: FAMOTIDINE 20MG TABLET 20 MG PO (21:26)
[2024-07-04] VITALS (9 sets, daily range): BP systolic 106–148; BP diastolic 49–78; PULSE 70–87; RESP 17–20; TEMP 36.4–37; O2SAT 90–94; BMI 33.0
[2024-07-04] MEDS: ACETAMINOPHEN 325MG TAB 650 MG PO (00:43)
[2024-07-04 06:32] LABS: Basophils % 0.4 % (0.1-2.0); Eosinophils # 0.2 K/mm3 (0.0-0.4); Eosinophils % 3.9 % (0.1-12.0); Hematocrit 31.2 % (37.0-47.0); Hemoglobin 9.7 g/dL (12.2-16.2); Lymphocytes % 18.7 % (10-50); Mean Corpuscular HGB Conc 30.9 g/dL (31.8-35.4); Mean Corpuscular Hemoglobin 26.2 pg (27.0-31.2); Mean Corpuscular Volume 84.8 fl (81-99); Mean Platelet Volume 10.2 fl (7.4-10.4); Monocytes # 0.3 K/mm3 (0.1-1.0); Monocytes % 6.1 % (1.7-9.3); Neutrophils # 3.9 K/mm3 (1.8-7.8); Neutrophils % 70.9 % (37.0-80.0); Platelet Count 141 K/mm3 (142-424); Red Blood Count 3.68 M/mm3 (4.20-5.40); Red Cell Distribution Width 17.7 % (11.5-17.5); White Blood Count 5.5 K/mm3 (4.8-10.8)
[2024-07-04] MEDS: LEVOTHYROXINE 25MCG (0.025MG) TAB 25 MCG PO (06:37)
--- NOTE | 2024-07-04 06:42 | PC.NURSE ---
Pt A/O x4. Pt has voiced c/o generalized pain and aching 1 x during shift. Tylenol administered. Pt continues to require 2 L nc, tolerating well with sat >90%. Pt was offered bath during shift multiple times but pt continually refused stating I will dirty. Ag catheter in place draining clear pale urine. Pt has had a total of 1470cc of urine output during shift. Call light within reach.
[2024-07-04 06:54] LABS: Alanine Aminotransferase 7 U/L (12-78); Albumin Level 3.4 g/dl (3.5-5.0); Albumin/Globulin Ratio 1.4 (1.1-1.8); Alkaline Phosphatase 67 U/L (38-126); Aspartate Amino Transferase 15 U/L (14-36); Bilirubin,Total 0.5 mg/dl (0.2-1.3); Blood Urea Nitrogen 27 mg/dl (7-17); Calcium 8.4 mg/dl (8.4-10.2); Carbon Dioxide 29 mmol/L (22.0-30.0); Chloride 110 mmol/L (98-107); Creatinine Clearance Estimated 44 mL/min (50-200); Estimated Glomerular Filt Rate 36 ml/min (>60); GFR (African American) 44 ML/MIN (>60); Globulin 2.4 g/dL (1.3-3.2); Glucose 89 mg/dl (74-100); Magnesium 1.8 mg/dl (1.6-2.3); Sodium 143 mmol/L (136-145); Total Protein,Serum 5.8 g/dl (6.3-8.2)
[2024-07-04 07:14] LABS: HCV Ab Non Reactive (Non Reactive)
--- NOTE | 2024-07-04 08:00 | P.PN_ITS ---
Subjective *Date: 07/04/24 *Time: 11:51 Interval history: Patient has diuresed well. Down 3 L since admission. Weaning oxygen. On 1 L this morning on rounds. O2 sat at rest on room air of 88%. Denies nausea or vomiting. Ag still in place, will remove today. Patient lives at home by herself, has a power chair. Family lives next-door. Therapy to evaluate today. Medical Exam Vital signs and Labs for Last 24 Hours: Vital Signs Temp Pulse Pulse Resp BP BP Pulse Ox 07/04/24 06:41 07/04/24 05:00 07/04/24 04:00 71 07/04/24 04:00 98.6 F 81 18 134/49 L 90 L 07/04/24 03:00 07/04/24 00:54 07/04/24 00:00 87 07/03/24 23:38 98.6 F 87 22 127/65 92 L 07/03/24 23:00 07/03/24 21:00 07/03/24 20:00 76 07/03/24 20:00 94 L 07/03/24 19:41 92 L 07/03/24 19:18 98.5 F 81 18 106/54 L 90 L 07/03/24 18:53 07/03/24 16:50 07/03/24 16:41 07/03/24 16:00 80 07/03/24 15:41 97.5 F L 71 15 121/69 100 07/03/24 15:28 80 07/03/24 15:26 98 H 24 161/77 H 93 L 07/03/24 15:02 70 103/40 L 93 L 07/03/24 14:45 98.4 F 68 18 103/40 L 07/03/24 14:31 74 123/50 L 93 L 07/03/24 14:01 78 150/72 H 93 L 07/03/24 13:31 64 132/48 L 96 07/03/24 13:30 07/03/24 13:01 73 132/46 L 99 07/03/24 12:33 97.9 F 81 20 136/58 L 92 L O2 Del Method O2 Flow Rate FiO2 07/04/24 06:41 Nasal Cannula 2 07/04/24 05:00 Nasal Cannula 2 07/04/24 04:00 07/04/24 04:00 Nasal Cannula 2 07/04/24 03:00 Nasal Cannula 07/04/24 00:54 Nasal Cannula 2 07/04/24 00:00 07/03/24 23:38 Nasal Cannula 2 07/03/24 23:00 Nasal Cannula 2 07/03/24 21:00 Nasal Cannula 2 07/03/24 20:00 07/03/24 20:00 Nasal Cannula 2 07/03/24 19:41 Nasal Cannula 2 07/03/24 19:18 Nasal Cannula 2 07/03/24 18:53 Nasal Cannula 2 07/03/24 16:50 Nasal Cannula 2 07/03/24 16:41 Nasal Cannula 2 07/03/24 16:00 07/03/24 15:41 Nasal Cannula 2 07/03/24 15:28 07/03/24 15:26 Nasal Cannula 2 07/03/24 15:02 Room Air 07/03/24 14:45 Room Air 07/03/24 14:31 Room Air 07/03/24 14:01 Room Air 07/03/24 13:31 Nasal Cannula 2 07/03/24 13:30 40 07/03/24 13:01 Nasal Cannula 2 07/03/24 12:33 Room Air Intake and Output 07/03/24 07/04/24 07/04/24 23:59 07:59 15:59 Intake Total 350 / 350 Output Total 1670 / 3520 1000 / 1000 Balance -1320 / -3170 -1000 / -1000 Intake: Intake, Oral Amount 350 / 350 Output: Output, Urine Amount 200 / 2050 850 / 850 Output, Urine Amount (Catheter) 1470 / 1470 150 / 150 Ag 1470 / 1470 150 / 150 Other: Number of Unmeasured Voids 0 0 Number of Bowel Movements 1 Weight 84.731 kg Patient Weight 07/04/24 23:59 Weight 84.731 kg Laboratory Results - last 24 hr 07/03/24 12:30: WBC 5.5, RBC 3.60 L, Hgb 9.6 L, Hct 30.9 L, MCV 85.8, MCH 26.5 L , MCHC 30.9 L, RDW 17.7 H, Plt Count 138 L, MPV 10.0, Neut % (Auto) 72.1, Lymph % (Auto) 18.7, [place] % (Auto) 5.5, Eos % (Auto) 3.2, Baso % (Auto) 0.5, Neut # (Auto) 4.0, Lymph # (Auto) 1.0, [place] # (Auto) 0.3, Eos # (Auto) 0.2, Baso # (A uto) 0.0, PT 11.0, INR 0.98, Sodium 142, Potassium 4.9, Chloride 113 H, Carbon Dioxide 25, Anion Gap 8.9, BUN 26 H, Creatinine 1.40 H, Estimated Creat Clear 42, Estimated GFR 36 L, Est GFR ( Amer) 44 L, Glucose 97, Calcium 8.7, Magnesium 2.0, Total Bilirubin 0.4, AST 14, ALT 9 L, Alkaline Phosphatase 67, Troponin I 0.02, NT-Pro-B Natriuret Pep 4940 H, Total Protein 6.4, Albumin 3.7, Globulin 2.7, Albumin/Globulin Ratio 1.4, Procalcitonin 0.054, TSH 1.97 07/03/24 12:48: VBG pH 7.24 L, VBG pCO2 49.2, VBG pO2 59.3 H, VBG HCO3 20.6 L, VBG Total CO2 22.1 L, VBG O2 Saturation 87.3 H, VBG Base Excess -6.8 L, VBG Lactic Acid 1.1 07/03/24 12:49: Chlamy pneumoniae PCR Not detected, Adenovirus (PCR) Not detected, B. pertussis DNA (PCR) Not detected, Coronavirus OC43 (PCR) Not detected, Coronavirus HKU1 (PCR) Not detected, Coronavirus 229E (PCR) Not detected, SARS-CoV-2 (PCR) Not detected, Coronavirus NL63 (PCR) Not detected, Human Metapneumovir PCR Not detected, Influenza A (H1) PCR Not detected, Influ A (H1N1/09) PCR Not detected, Influenza A (H3) PCR Not detected, Influenza Type A (PCR) Not detected, Influenza Type B (PCR) Not detected, M. pneumoniae (PCR) Not detected, Parainfluenza 1 (PCR) Not detected, Parainfluenza 2 (PCR) Not detect ed, Parainfluenza 3 (PCR) Not detected, Parainfluenza 4 (PCR) Not detected, RSV (PCR) Not detected, Entero/Rhino (PCR) Not detected 07/03/24 14:25: Urine Color Yellow, Urine Appearance Clear, Urine pH 6.0, Ur Specific [place] 1.025, Urine Protein Negative, Urine Glucose (UA) Negative, Urine Ketones Negative, Urine Blood Negative, Urine Nitrate Positive A, Urine Bilirubin Negative, Urine Urobilinogen 0.2, Ur Leukocyte Esterase Negative, Urine RBC 3-5, Urine WBC 20-50, Ur Squamous Epith Cells Occasional, Urine Bacteria 4+ 07/03/24 16:20: Troponin I 0.02, Hepatitis C Antibody Non reactive, HIV 1&2 Antibody Rapid Nonreactive 07/03/24 16:30: VBG pH 7.31, VBG pCO2 49.0, VBG pO2 30.8, VBG HCO3 24.2, VBG To archana CO2 25.7, VBG O2 Saturation 58.8, VBG Base Excess -2.1, VBG Lactic Acid 1.4 07/03/24 18:55: Troponin I 0.02 07/04/24 05:48: WBC 5.5, RBC 3.68 L, Hgb 9.7 L, Hct 31.2 L, MCV 84.8, MCH 26.2 L , MCHC 30.9 L, RDW 17.7 H, Plt Count 141 L, MPV 10.2, Neut % (Auto) 70.9, Lymph % (Auto) 18.7, [place] % (Auto) 6.1, Eos % (Auto) 3.9, Baso % (Auto) 0.4, Neut # (Auto) 3.9, Lymph # (Auto) 1.0, [place] # (Auto) 0.3, Eos # (Auto) 0.2, Baso # (Auto) 0.0, Sodium 143, Potassium 5.0, Chloride 110 H, Carbon Dioxide 29, Anion Gap 9.0, BUN 27 H, Creatinine 1.40 H, Estimated Creat Clear 44, Estimated GFR 36 L, Est GFR ( Amer) 44 L, Glucose 89, Calcium 8.4, Magnesium 1.8, Total Bilirubin 0.5, AST 15, ALT 7 L, Alkaline Phosphatase 67, Total Protein 5.8 L, Albumin 3.4 L, Globulin 2.4, Albumin/Globulin Ratio 1.4 I & O for Labs for Last 24 Hours: Intake & Output 07/01/24 07/02/24 07/03/24 07/04/24 23:59 23:59 23:59 23:59 Intake Total 350 / 350 Output Total 2670 / 3520 1000 / 1000 Balance -2320 / -3170 -1000 / -1000 Weight 81.647 kg 84.731 kg Constitutional: Present no acute distress, obese, chronically ill appearing and cooperative Head: Present atraumatic ENT: Present normal exam Comment:: edentulous Respiratory: Present crackles (Bases posterior lung field) and normal respiratory effort; Absent rhonchi or wheezes Cardiac: Present Reg Rate and Rhythm GI: Present soft and normal bowel sounds; Absent distention or tenderness Extremities: Present normal inspection, full ROM and edema (1+ bilateral lower extremities from knee down) Skin: Present intact; Absent erythema Comment:: Lesions on shins bilateral Neuro: Present Grossly Intact, alert, awake, oriented x 3 and moves all extremities Assessment and Plan *Assessment and plan (1) Acute on chronic heart failure with preserved ejection fraction: Status: Acute Category: Medical Code(s): I50.33 - Acute on chronic diastolic (congestive) heart failure (2) Acute hypoxemic respiratory failure: Status: Acute Category: Medical Code(s): J96.01 - Acute respiratory failure with hypoxia (3) Lymphedema: Status: Acute Category: Medical Code(s): I89.0 - Lymphedema, not elsewhere classified (4) Aortic stenosis: Status: Acute Qualifiers: Cardiac valve disease etiology: nonrheumatic Qualified Code(s): I35.0 - Nonrheumatic aortic (valve) stenosis Category: Medical Code(s): I35.0 - Nonrheumatic aortic (valve) stenosis (5) Open wound of right heel: Status: Acute Qualifiers: Encounter type: subsequent encounter Qualified Code(s): S91.301D - Unspecified open wound, right foot, subsequent encounter Category: Medical Code(s): S91.301A - Unspecified open wound, right foot, initial encounter (6) Hypothyroidism: Status: Acute Category: Medical Code(s): E03.9 - Hypothyroidism, unspecified (7) Anxiety: Status: Chronic Category: Medical Code(s): F41.9 - Anxiety disorder, unspecified Plan 79-year-old female with diastolic heart failure who presented with worsening shortness of breath over the past 2 months. Found to be in acute respiratory failure with new oxygen requirement. Workup in the ER concerning for CHF exacerbation. Discussed case with ER physician, request admission for diuresis and further management. I agreed to admit for further treatment. Echo obtained in the ER prior to admission, awaiting formal read. Responding to diuresis. Continue Bumex. Continues to require inpatient management. Problems addressed as follows: Acute on chronic heart failure with preserved ejection fraction Acute hypoxemic respiratory failure with hypercapnia -Reviewed patient's previous echo from 11/2022. Had grade 2 diastolic dysfun ction. Concern for aortic stenosis with her systolic murmur. -Repeat echo obtained, formal read pending -BNP elevated at 4940, troponin stable at 0.02 on serial monitoring. - Continue Bumex IV 1 mg twice daily - Repeat VBG yesterday afternoon showed improvement in pH to 7.3. pCO2 normal at 49. -Continue supplemental oxygen as needed for goal sats greater 90%. Currently on 1 L. -Holding on antibiotics given normal white count 5.5, low concern for infection. Dyspnea likely related to heart failure UTI: Urine growing gram-negative rods, speciation and sensitivity pending. Continue ceftriaxone 1 g daily SILVIA versus CKD -BUN 27, creatinine 1.4. Appears to be around patient's baseline. Monitor closely with diuresis. Electrolytes normal with potassium 5.0, no indication for replacement at this time. -Close monitoring with diuresis, repeat CBC, CMP, magnesium ordered for the morning. Anemia: Hemoglobin 9.7, platelets 141. Monitor for change with diuresis. No active sign of bleeding. Iron labs suggestive of deficiency, will consider iron infusion prior to discharge Hypothyroid: TSH 1.97. Continue levothyroxine 25 mcg daily. GERD: Continue famotidine 20 mg p.o. twice daily Anxiety/mood disorder: Continue Remeron 15 mg nightly, Zoloft 150 mg daily and BuSpar 7.5 mg twice daily Nystatin for rash Full code Lovenox 40 mg subcu daily
[2024-07-04] MEDS: IRBESARTAN 75MG TABLET 75 MG PO (08:42)
[2024-07-04] MEDS: BUMETANIDE 1MG/4ML VIAL 1 MG IV (08:42)
[2024-07-04] MEDS: SERTRALINE 100MG TABLET 150 MG PO (08:43)
[2024-07-04] MEDS: NYSTATIN TOPICAL POWDER 30GM TP ×4 (08:45→20:43)
[2024-07-04] MEDS: ENOXAPARIN 40MG/0.4ML SYRINGE 40 MG SUBCUT (08:45)
[2024-07-04] MEDS: BUSPIRONE HCL 5 MG TABLET 7.5 MG PO ×2 (08:56→20:42)
[2024-07-04 09:14] LABS: Iron 38 ug/dL (37-170)
[2024-07-04 09:23] LABS: Total Iron Binding Capacity 311 ug/dL (265-497)
[2024-07-04 09:50] LABS: Ferritin 16.1 ng/ml (11.1-264)
--- NOTE | 2024-07-04 10:33 | HMH.PTEV ---
Physical Therapy Evaluation Rehab PT IP Evaluation Start: 07/04/24 07:24 Freq: ONCE Status: Active Protocol: Document 07/04/24 10:15 BRIAN (Rec: 07/04/24 10:28 BRIAN [id number]) Subjective/History History History Per H&P: Ms. Bliss is a 79- year-old female who presented via EMS from her primary care provider's office. Patient was found to be hypoxemic and in acute respiratory distress. She has been having breathing difficulty for about 2 months per her report. Denies any history of nausea, vomiting, fever, productive cough. States she sees cardiology but has not seen them in about a year. Does not take a water pill regularly. Has been seeing wound care for lower extremity stasis wounds and edema. Has wraps on her legs at this time. Workup in the ER, patient found to be dyspneic with hypoxemia, respiratory acidosis. Initiated on BiPAP but intolerant of BiPAP. Workup concerning for CHF exacerbation with elevated BNP of 4900 and chest x-ray showing bilateral pulmonary edema. Medicine consulted for admission and further management. Received 80 mg Lasix IV x 1 in the ER. On evaluation after arriving to the floor, patient is currently on 2 L nasal cannula oxygen. Alert and oriented x 3. Poor insight into her heart function and heart failure. Voiding impressively with her first dose of diuretic, negative a liter already since administration of Lasix. Legs are sore and weeping. Currently has paper towels on her leg wounds that she cannot afford bandaging per her report. Afebrile. States that she is also been having some dysuria over the past few days to week. Thinks she might have a urinary tract infection. Ag draining clear urine. Crackles on bilateral lung exams. Subjective Subjective PLOF: Pt reports she was non- ambulatory prior to admission. Pt uses an electric w/c and was IND with transfers <> w/c. Pt IND with all w/c mobility as well. Home: Pt lives in a single- story home with no VANNA. Pt has a raised toilet seat and sleeps in a lift chair. Available assistance: Lives alone but reports her grandson is able to stay with her if needed. Pt reports her grandson lives next door and usually does her cooking and cleaning. New diagnosis of cancer in past 12 No months? Rehab PT IP Eval Objective Appearance Patient Behavior Appropriate,Cooperative Patient Orientation Person,Place,Situation Difficulty following instructions none Speech Pattern Clear Ambulation Patient Able to Ambulate No Balance Ability to Arise Able, uses arms to help Sitting Balance Steady, safe Standing Balance Steady, wide stance Dynamic Sitting Balance Ability Normal Dynamic Standing Balance Ability Fair Transfers Bed Transfer Ability Supervision/Stand by Chair Transfer Ability Supervision/Stand by Sit to Stand Bed Transfer Ability Supervision/Stand by Sit to Stand Chair Transfer Ability Supervision/Stand by Rehab PT IP prob,goals,plan Problems Date of Evaluation: 07/04/24 PT IP Problems Gait,Balance,Other Other Pt Problem Impaired LE strength and impaired endurance Rehab Potential Rehab Potential Good Plan PT Intervention Plan Gait,Balance,Therapeutic Exercise Other Intervention Plan 1-2 times PT Plan Frequency Daily Duration LOS Discharge Goals Bed Transfer Ability Independent Sit to Stand Chair Transfer Ability Independent Discharge Plan PT Discharge Plan Initial PT evaluation performed. Pt reports she was w/c level prior to admission and was able to perform transfers from chairs<>w/c without assistance. Pt is at baseline with her transfer mobility as she demonstrated ability to perform stand-step transfer EOB>recliner with supervision. Pt demo'd good safety awareness as she checked the recliner brakes and organized her lines and tubes prior to transfer without cueing. Pt safe to d/c home with care as needed by her grandson. PT recommending HH to address pt's strength deficits. Pt would benefit from skilled acute care PT to educate on repositioning and address her generalized strength and endurance deficits. Eval Complexity Eval Charge Codes 41848 - Moderate Complexity PHYSICIAN CERTIFICATION: I certify the specified therapy services for Lian Bliss are required, authorized, and reviewed every 30 days.
[2024-07-04] MEDS: CEFTRIAXONE SODIUM 1 GM in 0.9 % SODIUM CHLORIDE 50 ML IV (16:13)
[2024-07-04] MEDS: BUMETANIDE 1MG/4ML VIAL 2 MG IV (16:19)
--- NOTE | 2024-07-04 16:28 | PC.NURSE ---
PT IS SITTING UP IN THE CHAIR. ALERT AND ORIENTED X4. EATING AND DRINKING WELL. PT HAS TOLERATED SITTING UP IN THE CHAIR FOR MOST OF THE SHIFT. BATH AND LINEN CHANGE THIS SHIFT. PT HAS VOIDED SINCE CATHETER WAS DC'D AT 1330. 1 ASSIST TO GET OOB AND FROM CHAIR TO BSC. ULCERS NOTED TO BLE. DRESSING CHANGED THIS SHIFT. REDNESS NOTED TO ABDOMINAL FOLD. REDNESS/SMALL OPEN AREA NOTED TO BUTTOCKS. LUNG SOUNDS DIMINISHED WITH RT SIDED CRACKLES. ABDOMEN SOFT/NON TENDER WITH ACTIVE BOWEL SOUNDS. O2 SATURATION HAS MAINTAINED 90-92% ON 1 L NC. WILL CONTINUE TO MONITOR.
[2024-07-04] MEDS: FAMOTIDINE 20MG TABLET 20 MG PO (20:42)
[2024-07-04] MEDS: MIRTAZAPINE 15 MG TABLET PO (20:42)
[2024-07-05] VITALS: BP 136/74; PULSE 73; PULSE 77; RESP 18; TEMP 36.7; O2SAT 91
[2024-07-05] MEDS: ACETAMINOPHEN 325MG TAB 650 MG PO (00:03)
[2024-07-05 04:00] VITALS: BP 140/74; PULSE 61; PULSE 68; RESP 18; TEMP 36.8; O2SAT 97; BMI 32.1
--- NOTE | 2024-07-05 05:44 | PC.NURSE ---
Alert and oriented. Complained of leg pain one time, treated per oct. Purewick in place. Legs dressed, CDI. Lung sounds crackles in bases. Call light in reach. Bed alarm on.
[2024-07-05] MEDS: LEVOTHYROXINE 25MCG (0.025MG) TAB 25 MCG PO (06:24)
[2024-07-05 06:46] LABS: Basophils % 0.7 % (0.1-2.0); Eosinophils # 0.3 K/mm3 (0.0-0.4); Eosinophils % 5.2 % (0.1-12.0); Hematocrit 34.6 % (37.0-47.0); Lymphocytes # 1.5 K/mm3 (0.7-4.5); Mean Corpuscular HGB Conc 30.8 g/dL (31.8-35.4); Mean Corpuscular Volume 84.3 fl (81-99); Mean Platelet Volume 10.2 fl (7.4-10.4); Monocytes # 0.4 K/mm3 (0.1-1.0); Monocytes % 6.1 % (1.7-9.3); Neutrophils # 3.5 K/mm3 (1.8-7.8); Neutrophils % 61.9 % (37.0-80.0); Platelet Count 137 K/mm3 (142-424); Red Cell Distribution Width 17.4 % (11.5-17.5); White Blood Count 5.7 K/mm3 (4.8-10.8)
[2024-07-05 07:07] LABS: Albumin Level 3.3 g/dl (3.5-5.0); Chloride 102 mmol/L (98-107); Potassium 4.8 mmoL/L (3.5-5.1); Sodium 139 mmol/L (136-145)
[2024-07-05 07:10] LABS: Alanine Aminotransferase 6 U/L (12-78); Albumin/Globulin Ratio 1.3 (1.1-1.8); Anion Gap 12.8 mEq/L (5-15); Aspartate Amino Transferase 13 U/L (14-36); Blood Urea Nitrogen 35 mg/dl (7-17); Calcium 8.7 mg/dl (8.4-10.2); Carbon Dioxide 29 mmol/L (22.0-30.0); Creatinine Clearance Estimated 46 mL/min (50-200); Estimated Glomerular Filt Rate 40 ml/min (>60); GFR (African American) 48 ML/MIN (>60); Globulin 2.5 g/dL (1.3-3.2); Glucose 96 mg/dl (74-100); Total Protein,Serum 5.8 g/dl (6.3-8.2)
[2024-07-05 07:11] LABS: Alkaline Phosphatase 61 U/L (38-126); Bilirubin,Total 0.5 mg/dl (0.2-1.3); Magnesium 1.7 mg/dl (1.6-2.3)
--- NOTE | 2024-07-05 07:30 | P.DS_ITS ---
General Admission date:: 07/03/24 Discharge date: 07/05/24 HPI HPI HPI: Ms. Bliss is a 79-year-old female who presented via EMS from her primary care provider's office. Patient was found to be hypoxemic and in acute respiratory distress. She has been having breathing difficulty for about 2 months per her report. Denies any history of nausea, vomiting, fever, productive cough. States she sees cardiology but has not seen them in about a year. Does not take a water pill regularly. Has been seeing wound care for lower extremity stasis wounds and edema. Has wraps on her legs at this time. Workup in the ER, patient found to be dyspneic with hypoxemia, respiratory acidosis. Initiated on BiPAP but intolerant of BiPAP. Workup concerning for CHF exacerbation with elevated BNP of 4900 and chest x-ray showing bilateral pulmonary edema. Medicine consulted for admission and further management. Received 80 mg Lasix IV x 1 in the ER. On evaluation after arriving to the floor, patient is currently on 2 L nasal cannula oxygen. Alert and oriented x 3. Poor insight into her heart function and heart failure. Voiding impressively with her first dose of diuretic, negative a liter already since administration of Lasix. Legs are sore and weeping. Currently has paper towels on her leg wounds that she cannot afford bandaging per her report. Afebrile. States that she is also been having some dysuria over the past few days to week. Thinks she might have a urinary tract infection. Ag draining clear urine. Crackles on bilateral lung exams. Hospital Course Hospital Course Hospital Course: 79-year-old female with diastolic heart failure who presented with worsening shortness of breath over the past 2 months. Found to be in acute respiratory failure with new oxygen requirement. Workup in the ER concerning for CHF exacerbation. Discussed case with ER physician, request admission for diuresis and further management. I agreed to admit for further treatment. Echo obtained in the ER prior to admission, Mild reduction in EF of 45%. Grade 2 diastolic dysfunction with elevated RVSP of 50 to 55%. Responded well to diuresis. Weaned to 1 to 2 L oxygen. Continues to necessitate oxygen at discharge as her room air saturation at rest was 87%. Will continue 2 L via nasal cannula continuously. Continue Bumex. Recommend close outpatient follow-up with cardiology. Problems addressed as follows: Acute on chronic heart failure with preserved ejection fraction Acute hypoxemic respiratory failure with hypercapnia -Reviewed patient's previous echo from 11/2022. Had grade 2 diastolic dysfunction. Concern for aortic stenosis with her systolic murmur. Mild on echo with area of 1.3 cm2. Remainder of echo as above with slight reduction in EF of 45% and grade 2 diastolic dysfunction with elevated RVSP 50 to 55%. Initiated on aggressive diuresis due to BNP of 4900. Responded well, negative at least 4 L since admission. Oxygen requirement able to wean to 2 L by day of discharge. Patient very comfortable with no respiratory distress. Hypercapnia resolved. Referred to cardiology for follow-up. UTI: Urine growing gram-negative rods, speciation and sensitivity with Klebsiella. Transitioned from ceftriaxone to levofloxacin based on sensitivity to complete 7 days total of antibiotics. SILVIA versus CKD -BUN 27-35 and creatinine 1.3-1.5 during admission. This appears to be her baseline. Responding well to diuresis. Electrolytes otherwise stable with potassium 4.8, magnesium 1.7 on morning of discharge. Will need repeat labs at follow-up with PCP or cardiology given adjustment in diuretics. Anemia: Hemoglobin 9.7, platelets 141. Remained stable. No active signs of bleeding. Benefit from oral iron supplementation as an outpatient. Hypothyroid: TSH 1.97. Continue levothyroxine 25 mcg daily. GERD: Continue famotidine 20 mg p.o. twice daily Anxiety/mood disorder: Continue Remeron 15 mg nightly, Zoloft 150 mg daily and BuSpar 7.5 mg twice daily Nystatin for rash High risk for readmission. Patient adamant she is going home however and has what she needs with family close by, power chair, phone attached to her chair and a small 1 room house. No interest in placement. Total time spent on discharge 36 minutes in counseling, documentation, chart review, and direct care with patient. Exam Data for Last 24 hours Vital signs and Labs for Last 24 Hours: Temp Pulse Resp BP Pulse Ox O2 Del Method O2 Flow Rate 98.2 F 68 18 140/74 97 Nasal Cannula 2 07/05/24 04:00 07/05/24 04:00 07/05/24 04:00 07/05/24 04:00 07/05/24 04:00 07/05/24 06:45 07/05/24 06:45 FiO2 40 07/03/24 13:30 Laboratory Results - last 24 hr 07/03/24 14:25: Urine Color Yellow, Urine Appearance Clear, Urine pH 6.0, Ur Specific [place] 1.025, Urine Protein Negative, Urine Glucose (UA) Negative, Urine Ketones Negative, Urine Blood Negative, Urine Nitrate Positive A, Urine Bilirubin Negative, Urine Urobilinogen 0.2, Ur Leukocyte Esterase Negative, Urine RBC 3-5, Urine WBC 20-50, Ur Squamous Epith Cells Occasional, Urine Bacteria 4+ 07/04/24 05:48: Iron 38, TIBC 311, Iron Saturation 12.39107 L, Ferritin 16.1 07/05/24 05:42: WBC 5.7, RBC 4.10 L, Hct 34.6 L, MCV 84.3, MCH 26.0 L, MCHC 30.8 L, RDW 17.4, Plt Count 137 L, MPV 10.2, Neut % (Auto) 61.9, Lymph % (Auto) 26.0, [place] % (Auto) 6.1, Eos % (Auto) 5.2, Baso % (Auto) 0.7, Neut # (Auto) 3.5, Lymph # (Auto) 1.5, [place] # (Auto) 0.4, Eos # (Auto) 0.3, Baso # (Auto) 0.0, Sodium 139, Potassium 4.8, Chloride 102, Carbon Dioxide 29, Anion Gap 12.8, BUN 35 H D, Creatinine 1.30 H, Estimated Creat Clear 46, Estimated GFR 40 L, Est GFR (Afr ican Amer) 48 L, Glucose 96, Calcium 8.7, Magnesium 1.7, Total Bilirubin 0.5, AST 13 L, ALT 6 L, Alkaline Phosphatase 61, Total Protein 5.8 L, Albumin 3.3 L, Globulin 2.5, Albumin/Globulin Ratio 1.3 I & O for Last 24 hours: Intake & Output 07/02/24 07/03/24 07/04/24 07/05/24 23:59 23:59 23:59 23:59 Intake Total 350 / 350 1270 / 1270 Output Total 2670 / 3520 2100 / 2800 700 / 700 Balance -2320 / -3170 -830 / -1530 -700 / -700 Weight 81.647 kg 84.731 kg 82.236 kg Microbiology Reports for the Last 24 Hours: Microbiology 07/03/24 14:25 Urine,Clean Catch Urine Culture - Preliminary Gram Negative Rods Constitutional Constitutional: no acute distress, obese, chronically ill appearing and cooperative *Routine HEENT Exam Head: Present normocephalic Eye: Present EOMI and PERRL ENT: Present mucous membranes moist Comments: Edentulous *Routine Neck Exam Neck: Present supple; Absent lymphadenopathy *Routine Respiratory Exam Respiratory: Present prolonged expiratory phase, wheezes and crackles (Bases); Absent rhonchi *Routine Cardiovascular Exam Cardiovascular: Present RRR *Routine Abdominal Exam Abdominal: Present soft and normoactive bowel sounds; Absent tenderness *Routine Rectal Exam Patient deferred: visual exam *Routine Exam Patient deferred: external exam *Routine Extremities Exam Extremities: Present edema (1+ lower extremities.); Absent cyanosis or clubbing *Routine Skin Exam Skin: Present warm; Absent intact or rash Comments: Stasis wounds worse on right leg compared to left. Wraps in place. No signs of infection. *Routine Neurological Exam Neurological: Present alert, oriented X3 and moving all extremities; Absent altered mental status Results Data Completed and Pending Labs on day of discharge: Labs from last 24 hours 07/05/24 07/04/24 07/03/24 05:42 05:48 14:25 WBC 5.7 RBC 4.10 L Hct 34.6 L MCV 84.3 MCH 26.0 L MCHC 30.8 L RDW 17.4 Plt Count 137 L MPV 10.2 Neut % (Auto) 61.9 Lymph % (Auto) 26.0 [place] % (Auto) 6.1 Eos % (Auto) 5.2 Baso % (Auto) 0.7 Neut # (Auto) 3.5 Lymph # (Auto) 1.5 [place] # (Auto) 0.4 Eos # (Auto) 0.3 Baso # (Auto) 0.0 Sodium 139 Potassium 4.8 Chloride 102 Carbon Dioxide 29 Anion Gap 12.8 BUN 35 H D Creatinine 1.30 H Estimated Creat Clear 46 Estimated GFR 40 L Est GFR ( Amer) 48 L Glucose 96 Calcium 8.7 Magnesium 1.7 Iron 38 TIBC 311 Iron Saturation 12.95651 L Ferritin 16.1 Total Bilirubin 0.5 AST 13 L ALT 6 L Alkaline Phosphatase 61 Total Protein 5.8 L Albumin 3.3 L Globulin 2.5 Albumin/Globulin Ratio 1.3 Urine Color Yellow Urine Appearance Clear Urine pH 6.0 Ur Specific [place] 1.025 Urine Protein Negative Urine Glucose (UA) Negative Urine Ketones Negative Urine Blood Negative Urine Nitrate Positive A Urine Bilirubin Negative Urine Urobilinogen 0.2 Ur Leukocyte Esterase Negative Urine RBC 3-5 Urine WBC 20-50 Ur Squamous Epith Cells Occasional Urine Bacteria 4+ Preliminary micro results at discharge 07/03/24 14:25 Urine Culture - Preliminary Urine,Clean Catch Gram Negative Rods DS: Diagnosis Discharge Diagnosis (1) Acute on chronic heart failure with preserved ejection fraction: Status: Acute Code(s): I50.33 - Acute on chronic diastolic (congestive) heart failure (2) Acute hypoxemic respiratory failure: Status: Acute Code(s): J96.01 - Acute respiratory failure with hypoxia (3) Lymphedema: Status: Acute Code(s): I89.0 - Lymphedema, not elsewhere classified (4) Aortic stenosis: Status: Acute Code(s): I35.0 - Nonrheumatic aortic (valve) stenosis Qualifiers: Cardiac valve disease etiology: nonrheumatic Qualified Code(s): I35.0 - Nonrheumatic aortic (valve) stenosis (5) Open wound of right heel: Status: Acute Code(s): S91.301A - Unspecified open wound, right foot, initial encounter Qualifiers: Encounter type: subsequent encounter Qualified Code(s): S91.301D - Unspecified open wound, right foot, subsequent encounter (6) Hypothyroidism: Status: Acute Code(s): E03.9 - Hypothyroidism, unspecified (7) Anxiety: Status: Chronic Code(s): F41.9 - Anxiety disorder, unspecified Meds Home Medications and Allergies Home Medications ?Medication ?Instructions ?Recorded ?Confirmed ?Type famotidine 20 mg tablet 20 mg PO BID 02/18/22 07/03/24 History mirtazapine 15 mg tablet 15 mg PO HS 02/18/22 07/03/24 History pantoprazole 40 mg tablet,delayed 40 mg PO HS 02/18/22 07/03/24 History release sertraline 100 mg tablet 150 mg PO DAILY 02/18/22 07/03/24 History buspirone 7.5 mg tablet 7.5 mg PO BID 06/06/22 07/03/24 History meloxicam 7.5 mg tablet 7.5 mg PO DAILY 06/06/22 07/03/24 History levothyroxine 25 mcg tablet 25 mcg PO DAILY 07/03/24 07/03/24 History (Synthroid) valsartan 160 mg tablet 160 mg PO DAILY 07/03/24 07/03/24 History bumetanide 1 mg tablet 1 mg PO DAILY #30 tabs 07/05/24 Rx levofloxacin 750 mg tablet 750 mg PO ONCE #1 tab 07/05/24 Rx nystatin 100,000 unit/gram topical 1 applic topical QID 30 days #60 07/05/24 Rx powder grams New Prescriptions to Start Prescriptions: bumetanide Ryne Jane levofloxacin Lucinda,Ryne nystatin Lucinda,Ryne Allergies Allergy/AdvReac Type Severity Reaction Status Date / Time pseudoephedrine Allergy Severe Difficulty Verified 05/12/24 14:38 Breathing azithromycin Allergy Unknown Unknown Verified 05/12/24 14:38 allergy reaction Cephalosporins Allergy Unknown Gastrointestinal Verified 05/12/24 14:38 Upset chocolate flavor Allergy Unknown Unknown Verified 05/12/24 14:38 allergy reaction clarithromycin Allergy Unknown Unknown Verified 05/12/24 14:38 allergy reaction erythromycin base Allergy Unknown Rash Verified 05/12/24 14:38 guaifenesin Allergy Unknown Unknown Verified 05/12/24 14:38 allergy reaction montelukast Allergy Unknown Numbness Verified 05/12/24 14:38 nabumetone (From Relafen) Allergy Unknown Rash Verified 05/12/24 14:38 nitrofurantoin Allergy Unknown Unknown Verified 05/12/24 14:38 allergy reaction NSAIDS (Non-Steroidal Allergy Unknown Unknown Verified 05/12/24 14:38 Anti-Inflamma allergy reaction Penicillins Allergy Unknown Unknown Verified 05/12/24 14:38 allergy reaction prednisone Allergy Unknown Unknown Verified 05/12/24 14:38 allergy reaction Sulfa (Sulfonamide Allergy Unknown Unknown Verified 05/12/24 14:38 Antibiotics) allergy reaction cefdinir Allergy rash, Verified 05/12/24 14:38 itching clindamycin AdvReac Unknown Gastrointestinal Verified 05/12/24 14:38 Upset codeine AdvReac Unknown Gastrointestinal Verified 05/12/24 14:38 Upset doxycycline AdvReac Unknown MAKES THE Verified 05/12/24 14:38 BACKS OF EYES HURT fexofenadine (From Sudha) AdvReac Unknown INFLAMED Verified 05/12/24 14:38 INSIDE OF NOSE fluticasone (From Advair AdvReac Unknown HURTS IN Verified 05/12/24 14:38 Diskus) THE INSIDE OF NOSE imipramine AdvReac Unknown BLADDER Verified 05/12/24 14:38 PAIN/SLOW DRAINAGE metoclopramide (From Reglan) AdvReac Unknown Gastrointestinal Verified 05/12/24 14:38 Upset mometasone furoate (From AdvReac Unknown Cough Verified 05/12/24 14:38 Nasonex) paroxetine (From Paxil) AdvReac Unknown Agitated Verified 05/12/24 14:38 salmeterol (From Advair AdvReac Unknown HURTS IN Verified 05/12/24 14:38 Diskus) THE INSIDE OF NOSE tramadol AdvReac Unknown Dizziness Verified 05/12/24 14:38 acetaminophen (From Lortab) AdvReac Gastrointestinal Verified 05/12/24 14:38 Upset hydrocodone (From Lortab) AdvReac Gastrointestinal Verified 05/12/24 14:38 Upset Discharge Plan Disposition Patient Disposition: Home Health Service Discharge Order Discharge Orders: Discharge Order (Routine); Ordered 07/05/24 Ordered By: Ryne Jane Follow up Plan Follow up with: Maria Luz Johnson APRN [Primary Care Provider] - Enter time for follow up Lei Smyth MD [Staff Physician] - Enter time for follow up Prescriptions/Medication Reconciliation: New nystatin 100,000 unit/gram Powder 1 applic topical QID 30 Days Qty: 60 1RF bumetanide 1 mg tablet 1 mg PO DAILY Qty: 30 0RF levofloxacin 750 mg tablet 750 mg PO ONCE Qty: 1 0RF Rx Instructions: please take 07/07/24 Continued meloxicam 7.5 mg tablet 7.5 mg PO DAILY Patient Comments: TAKE ONE TABLET BY MOUTH EVERY DAY --TAKE WITH FOOD-- buspirone 7.5 mg tablet 7.5 mg PO BID Patient Comments: TAKE ONE TABLET BY MOUTH TWICE DAILY sertraline 100 MG tablet 150 mg PO DAILY famotidine 20 MG tablet 20 mg PO BID pantoprazole 40 MG tablet,delayed release (DR/EC) 40 mg PO HS mirtazapine 15 MG tablet 15 mg PO HS valsartan 160 mg tablet 160 mg PO DAILY Rx Instructions: TAKE ONE TABLET BY MOUTH EVERY DAY levothyroxine [Synthroid] 25 mcg tablet 25 mcg PO DAILY Problem Reconciliation Problems Reviewed?: Yes Patient Discharge Instructions ACTIVITY: Continue current activity DIET: continue same diet Patient Instructions: DI for Heart Failure, DI for Respiratory Failure Print Language: Sami Providers Primary Care Provider: Maria Luz Johnson Admit Provider: Ryne Jane Attending Provider: Ryne Jane
[2024-07-05 07:54] VITALS: BP 139/77; PULSE 78; RESP 20; TEMP 36.6; O2SAT 95
[2024-07-05 08:00] VITALS: PULSE 75
[2024-07-05 08:05] LABS: Hemoglobin 10.7 g/dL (12.2-16.2)
[2024-07-05] MEDS: ENOXAPARIN 40MG/0.4ML SYRINGE 40 MG SUBCUT (08:16)
[2024-07-05] MEDS: SERTRALINE 100MG TABLET 150 MG PO (08:17)
[2024-07-05] MEDS: IRBESARTAN 75MG TABLET 75 MG PO (08:17)
[2024-07-05] MEDS: BUSPIRONE HCL 5 MG TABLET 7.5 MG PO (08:17)
[2024-07-05] MEDS: BUMETANIDE 1MG/4ML VIAL 2 MG IV (08:33)
[2024-07-05] MEDS: NYSTATIN TOPICAL POWDER 30GM TP ×2 (08:33→12:06)
[2024-07-05] MEDS: LEVOFLOXACIN/D5W 750 MG/150 ML 750 MG/150 ML PIGGYBACK 100 MG IV (10:50)
[2024-07-05 12:00] VITALS: PULSE 85
--- NOTE | 2024-07-06 09:32 | SW/DCPLANNER ---
Addendum entered by Meli Gee 07/06/24 11:13: Patient information/order faxed to [facility]. Per Mojgan whyte/ [employer] services will start this week for this patient. Original Note: Spoke with patient on the phone. Talked to her about home health agencys and patient had no preference. Patient stated that things are going good and that she had no concerns or questions at this time. Rick Ambrocio
== END 2024-07-05 14:02 | disposition home health service (06) | DRG 291 ==
LOC: ER 13:02 → 2ND 14:18
PROVIDERS: Internal Medicine Pulmonary Disease; Physician Assistant; Admitting Provider Internal Medicine Adolescent Medicine; Emergency Provider Student in an Organized Health Care Education/Training Program; PCP Nurse Practitioner; Visit Provider Internal Medicine Adolescent Medicine
DX: I13.0 Hypertensive heart and chronic kidney disease with heart failure and stage 1 through stage 4 chronic kidney disease, or unspecified chronic kidney disease (principal); I50.33 Acute on chronic diastolic (congestive) heart failure; J96.01 Acute respiratory failure with hypoxia; J96.02 Acute respiratory failure with hypercapnia; N17.9 Acute kidney failure, unspecified; N39.0 Urinary tract infection, site not specified; N18.9 Chronic kidney disease, unspecified; I35.0 Nonrheumatic aortic (valve) stenosis; E03.9 Hypothyroidism, unspecified; F41.9 Anxiety disorder, unspecified; K21.9 Gastro-esophageal reflux disease without esophagitis; F32.A Depression, unspecified; E11.9 Type 2 diabetes mellitus without complications; D63.1 Anemia in chronic kidney disease
CPT/HCPCS: 36415; 51702; 71045; 80053; 81001; 82728; 82803; 83540; 83550; 83735; 83880; 84145; 84443; 84484; 85025; 85610; 86803; 87081; 87086; 87088; 87186; 87389; 87633; 93005; 93306; 97162; 99291; J0696; J1650; J1939; J1940; J1956; J7620

== ENCOUNTER 2024-10-01 17:14 | Emergency (ER) | payer MEDICARE, SELFPAY ==
[2024-10-01 17:20] VITALS: BP 127/69; PULSE 71; RESP 18; TEMP 36.9; O2SAT 97; BMI 32.9
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
--- NOTE | 2024-10-01 17:57 | PC.NURSE ---
PETEY Ramos at [facility] for pt eval
[2024-10-01 18:01] VITALS: BP 135/67; PULSE 87; O2SAT 93
[2024-10-01 18:36] VITALS: BP 134/73; PULSE 73; O2SAT 91
[2024-10-01 18:46] VITALS: BP 134/73; PULSE 76; RESP 19; TEMP 36.7
== END 2024-10-01 18:47 | disposition home or self-care (01) ==
LOC: ER 17:28
PROVIDERS: Emergency Provider Emergency Medicine
DX: I83.008 Varicose veins of unspecified lower extremity with ulcer other part of lower leg (principal); R89.5 Abnormal microbiological findings in specimens from other organs, systems and tissues
CPT/HCPCS: 87070; 87077; 87186; 87205; 99283

== ENCOUNTER 2024-10-02 10:41 | Outpatient (RCR) | payer MEDICARE, SELFPAY | END 2024-10-02 23:59 | disposition home or self-care (01) | LOC: PT 10:41 | PROVIDERS: PCP Nurse Practitioner; Visit Provider Nurse Practitioner | DX: L97.919 Non-pressure chronic ulcer of unspecified part of right lower leg with unspecified severity (principal); L97.929 Non-pressure chronic ulcer of unspecified part of left lower leg with unspecified severity | CPT/HCPCS: 97163 ==

== ENCOUNTER 2024-12-17 12:24 | Outpatient (CLI) | payer MEDICARE, MEDICAID, SELFPAY ==
--- NOTE | 2024-12-17 | CA_ITS ---
APPROVED REPORT Exam: Pharmacologic Technologist: Day Dumont Ht: 5 ft 2 in Wt: 185 lbs BSA: 1.85 m2 HR: 64 bpm BP: 154/67 mmHg Medical History Medical History: HTN, Hyperlipidemia, Diabetes Cardiac Risk Factors: HTN, Hyperlipidemia, Diabetes, FHX of CAD Stress Test Details Test: Lexiscan HR Resting HR: 64 bpm Max Heart Rate (APMHR): 141.652123 bpm Target HR (85% APMHR): 119.073869 bpm Recovery HR: 82 bpm BP Resting BP: 154.0/67.0 mmHg Max BP: 154.0/67.0 mmHg Recovery BP: 152.0/72.0 mmHg ECG Stress ECG Conclusion Pt had soa with Lexiscan Unremarkable with Lexiscan Electronically signed by : Joceline Smyth MD 12/20/2024 22:34:02
--- OUTSIDE RECORDS SUMMARY | 2024-12-17 12:27 | XMS_ITS | Data Portability ---
Author Organization [facility] [place], [facility] Lissie Address [address] [address] [place] [address] Assessment No assessment recorded. Plan of Treatment Reminders Order Date Submit Date Provider Last Modified By Organization Details Last Modified Time Details Appointments None recorded. Lab None recorded. Referral None recorded. Procedures None recorded. Surgeries None recorded. Imaging None recorded. Medication Orders Gemtesa 75 mg tablet 2022 023 [facility], [address] [place] [address] [address] [address] [place], [place], [id number], 4 16:34:23 oxybutynin chloride ER 15 mg tablet,exte nded release 24 hr [email or web address] [facility], [address] [place] [address] [facility] [place], [place], [id number], 3 12:46:59 Patient TargetsNo targets recorded. Patient InstructionsNo instructions recorded. Reason for Referral None Reported. Results Created Date Observation Date Name Description Value Unit Range Abnormal Flag Note LastModifiedBy Organization Detail LastModifiedTime Result Notes None recorded. Problems Name Problem SNOMED Code Status Onset Date Resolution Date Notes Provider Name and Address Organization Details Recorded Time Hypertensive disorder 21173297 Active 2022 HEENA Beasley [facility] [place] 3 11:52:53 Heart irregularly irregular 593173119 Active 2022 HEENA Beasley [facility] [place] 3 11:53:03 Thyroid eye disease 838624642 Active 2022 Cris gandara, HEE[facility] - [facility] [place] [facility] [place] 3 11:53:27 Environmental allergy 093344140 Active 2022 Cris gandara, [facility]EENA - [facility] [place] [facility] [place] 3 11:54:02 Sleep apnea 90963604 Active 2022 Cris gandara, [facility]EENA - [facility] [place] [facility] [place] 3 11:54:13 Gastroesophage al reflux disease 604456763 Active 2022 Cris gandara, [place] - [facility] [place] [facility] [place] 3 11:54:20 Gastric ulcer 225603579 Active 2022 Cris gandara, [facility]EENA - [facility] - [place] [facility] [place] 3 11:54:30 Kidney stone 35379355 Active 2022 Cris gandara, HEENA - [facility] - [place] [facility] [place] 3 11:54:41 Arthritis 7989604 Active 2022 Cris gandara, [place] - [facility] [place] [facility] [place] 3 11:54:50 Asthma 466029922 Active 2022 Cris gandara, HEENA - [facility] - [place] [facility] [place] 3 11:54:59 Problem Notes None recorded. Medical Equipment None Reported. Allergies Allergen ID Allergen Name Allergen Category Reaction Reaction Severity Criticality Documentation Date Start Date Code Code System Note Provider Name and Address Organization Details Recorded Time 62892 pseudoeph edrine Not available Not available Not available Not available 11/30/2022 8896 RxNorm Cris gandara, [facility] - [facility] [place] [facility] [place] 3 11:42:06 16083 azithromy quan medicatio n Not available Not available Not available 11/30/2022 15340 RxNorm Cris gandara, [facility] - [facility] - [place] [facility] [place] 3 11:42:16 36283 Medicinal product containin g cephalosp gibson and acting as antibacte rial agent (product) medicatio n Not available Not available Not available 11/30/2022 21721 9009 SNOMED Cris gandara, [place] - [facility] - [place] [facility] [place] 3 11:42:25 55914 chocolate flavor food,medi cation Not available Not available Not available 11/30/2022 86520 UNK Cris gandara, [place] - [facility] - [facility] & [place] 3 11:42:34 49380 clarithro mycin medicatio n Not available Not available Not available 11/30/2022 95787 RxNorm Cris gandara, [place] - [facility] - [facility] & [place] 3 11:42:46 33143 erythromy quan medicatio n Not available Not available Not available 11/30/2022 4053 RxNorm Cris gandara, [place] - [facility] - [facility] [place] 3 11:42:59 69870 guaifenes in medicatio n Not available Not available Not available 11/30/2022 5032 RxNorm Cris gandara, [place] - [facility] [place] [facility] [place] 3 11:43:[address] medicatio n Not available Not available Not available 11/30/2022 07839 RxNorm Cris gandara, [place] [facility] [place] [facility] [place] 3 11:43:25 65238 nabumeton e medicatio n Not available Not available Not available 11/30/2022 59315 RxNorm Cris gandara, [facility] - [facility] - [place] [facility] [place] 3 11:43:34 41171 nitrofura ntoin medicatio n Not available Not available Not available 11/30/2022 7454 RxNorm Cris gandara, [place] - [facility] - [place] [facility] [place] 3 11:44:13 52416 Non-stero idal anti-infl ammatory agent (product) medicatio n Not available Not available Not available 11/30/2022 13345 005 SNOMED Cris gandara, [place] - [facility] [place] [facility] [place] 3 11:44:28 25422 Product containin g penicilli n (product) medicatio n Not available Not available Not available 11/30/2022 15575 8001 SNOMED HEENA Beasley [facility] [place] 3 11:45:03 30826 prednison e medicatio n Not available Not available Not available 11/30/2022 8640 RxNorm HEENA Beasley [facility] [place] 3 11:45:21 56951 Substance with sulfonami de structure and antibacte rial mechanism of action (substanc e) medicatio n Not available Not available Not available 11/30/2022 08087 8003 SNOMED HEENA Beasley [facility] [place] 3 11:45:32 51812 cefdinir medicatio n Not available Not available Not available 11/30/2022 64769 RxNorm HEENA Beasley [facility] [place] 3 11:46:00 71091 clindamyc in Not available Not available Not available Not available 11/30/2022 2582 RxNorm HEENA Beasley [facility] [place] 3 11:47:22 69479 codeine medicatio n Not available Not available Not available 11/30/2022 2670 RxNorm HEENA Beasley [facility] [place] 3 11:47:39 68607 doxycycli ne Not available Not available Not available Not available 11/30/2022 3640 RxNorm HEENA Beasley [facility] [place] 3 11:47:52 03905 fexofenad ine medicatio n Not available Not available Not available 11/30/2022 36708 RxNorm HEENA Beasley [facility] [place] 3 11:49:06 47901 fluticaso ne Not available Not available Not available Not available 11/30/2022 05976 RxNorm HEENA Beasley [facility] [place] 3 11:49:17 81217 imipramin e Not available Not available Not available Not available 11/30/2022 5691 RxNorm HEENA Beasley [facility] [place] 3 11:50:02 81837 metoclopr amide Not available Not available Not available Not available 11/30/2022 6915 RxNorm HEENA Beasley [facility] [place] 3 11:50:17 71566 mometason e furoate medicatio n Not available Not available Not available 11/30/2022 15027 RxNorm HEENA Beasley [facility] [place] 3 11:50:34 87941 salmetero l medicatio n Not available Not available Not available 11/30/2022 41021 RxNorm HEENA Beasley [facility] [place] 3 11:51:00 82760 tramadol medicatio n Not available Not available Not available 11/30/2022 54761 RxNorm HEENA Beasley [facility] [place] 3 11:51:21 90545 acetamino phen medicatio n Not available Not available Not available 11/30/2022 161 RxNorm HEENA Beasley [facility] [place] 3 11:51:36 52414 hydrocodo ne Not available Not available Not available Not available 11/30/2022 5489 RxNorm HEENA Beasley [facility] [place] 3 11:51:53 Medications Name Sig Start Date Stop Date Status Note LastModified by Organization Details LastModified Time vit b12 1000mcg tr tab 75ct aba panfilo TAKE ONE TABLET BY MOUTH EVERY DAY active Not Available Not Available No t Available fluconazole 100 mg tablet TAKE ONE TABLET BY MOUTH ONCE DAILY FOR 7 DAYS -- FINISH ALL MEDICINE -- active Not Available Not Available No t Available oxybutynin chloride ER 15 mg tablet,exte nded release 24 hr Take 1 tablet every day by oral route. 2022 active Not Available Not Available Not Avai lable ipratropium 0.5 mg-albutero l 3 mg (2.5 mg base)/3 mL nebulizatio n soln USE 1 AMPULE IN NEBULIZER EVERY 6 HOURS NEEDED active Not Available Not Available No t Available nadolol 80 mg tablet TAKE ONE TABLET BY MOUTH EVERY DAY active Not Available Not Available No t Available cetirizine 10 mg tablet TAKE ONE TABLET BY MOUTH EVERY DAY active Not Available Not Available No t Available diltiazem CD 180 mg capsule,ext ended release 24 hr TAKE ONE CAPSULE BY MOUTH EVERY DAY active Not Available Not Available No t Available fluconazole 150 mg tablet TAKE ONE TABLET BY MOUTH A ONE-TIME DOSE active Not Available Not Available No t Available benzonatate 200 mg capsule TAKE ONE CAPSULE BY MOUTH THREE TIMES DAILY NEEDED -SWALLOW WHOLE. DO NOT CRUSH OR CHEW- active Not Available Not Available No t Available sertraline 100 mg tablet TAKE 1 AND 1/2 TABLET BY MOUTH EVERY DAY active Not Available Not Available No t Available potassium chloride ER 10 mEq tablet,exte nded release TAKE ONE TABLET BY MOUTH ONCE DAILY with furosemid e active Not Available Not Available No t Available levofloxaci n 250 mg tablet TAKE ONE TABLET BY MOUTH EVERY DAY FOR 7 DAYS -- FINISH ALL MEDICINE -- active Not Available Not Available No t Available ciprofloxac in 500 mg tablet TAKE ONE TABLET BY MOUTH EVERY TWELVE HOURS FOR 3 DAYS -- FINISH ALL MEDICINE -- active Not Available Not Available No t Available triamcinolo ne acetonide 0.1 % topical cream APPLY TOPICALLY TO THE AFFECTED AREA(S) TWICE DAILY -- FOR EXTERNAL USE ONLY-- active Not Available Not Available No t Available levothyroxi ne 25 mcg tablet TAKE ONE TABLET BY MOUTH EVERY DAY active Not Available Not Available No t Available meloxicam 7.5 mg tablet TAKE ONE TABLET BY MOUTH EVERY DAY --TAKE WITH FOOD-- active Not Available Not Available No t Available hydromorpho ne 2 mg tablet TAKE 1/2 TABLET BY MOUTH THREE TIMES DAILY NEEDED MAY CAUSE DROWSINES S active Not Available Not Available No t Available famotidine 20 mg tablet TAKE ONE TABLET BY MOUTH EVERY DAY active Not Available Not Available No t Available phenazopyri dine 100 mg tablet TAKE ONE TABLET BY MOUTH TWICE DAILY active Not Available Not Available No t Available pantoprazol e 40 mg tablet,matty yed release TAKE ONE TABLET BY MOUTH EVERY DAY active Not Available Not Available No t Available nystatin 100,000 unit/gram topical cream APPLY TOPICALLY TO THE AFFECTED AREA(S) THREE TIMES DAILY active Not Available Not Available No t Available buspirone 7.5 mg tablet TAKE ONE TABLET BY MOUTH TWICE DAILY active Not Available Not Available No t Available folic acid 1 mg tablet TAKE ONE TABLET BY MOUTH EVERY DAY active Not Available Not Available No t Available mupirocin 2 % topical ointment APPLY TOPICALLY TO THE AFFECTED AREA(S) EVERY DAY active Not Available Not Available No t Available furosemide 20 mg tablet TAKE TWO TABLETS BY MOUTH EVERY DAY FOR fluid active Not Available Not Available No t Available mirtazapine 15 mg tablet TAKE ONE TABLET BY MOUTH ONCE DAILY AT BEDTIME active Not Available Not Available No t Available nystatin 100,000 unit/gram topical powder APPLY TOPICALLY TO THE AFFECTED AREA(S) THREE TIMES DAILY DIRECTED -- FOR EXTERNAL USE ONLY-- active Not Available Not Available No t Available cefuroxime axetil 500 mg tablet TAKE ONE TABLET BY MOUTH EVERY TWELVE HOURS FOR 7 DAYS -- FINISH ALL MEDICINE -- active Not Available Not Available No t Available levofloxaci n 500 mg tablet TAKE ONE TABLET BY MOUTH EVERY DAY FOR 7 DAYS -- FINISH ALL MEDICINE -- active Not Available Not Available No t Available levofloxaci n 750 mg tablet TAKE ONE TABLET BY MOUTH EVERY DAY active Not Available Not Available No t Available albuterol sulfate HFA 90 mcg/actuati on aerosol inhaler INHALE 1 PUFF BY MOUTH EVERY 4 TO 6 HOURS NEEDED active Not Available Not Available No t Available cefdinir 300 mg capsule TAKE ONE CAPSULE BY MOUTH EVERY TWELVE HOURS FOR 10 DAYS -- FINISH ALL MEDICINE -- active Not Available Not Available No t Available sertraline 50 mg tablet TAKE ONE TABLET BY MOUTH EVERY DAY 02/06 completed Not Available Not Available Not Available cholecalcif richard (vitamin D3) 125 mcg (5,000 unit) capsule TAKE ONE CAPSULE BY MOUTH EVERY DAY active Not Available Not Available No t Available loratadine 10 mg tablet TAKE ONE TABLET BY MOUTH EVERY DAY active Not Available Not Available No t Available valsartan 160 mg tablet TAKE ONE TABLET BY MOUTH EVERY DAY active Not Available Not Available No t Available FeroSul 325 mg (65 mg iron) tablet TAKE ONE TABLET BY MOUTH 3 times a WEEK active Not Available Not Available No t Available Gemtesa 75 mg tablet TAKE ONE TABLET BY MOUTH EVERY DAY active Not Available Not Available No t Available Vitals Date Recorded Body height Body mass index (BMI) Body weight Body temperature Provider Name and Address Organization Details Last Updated DateTime 11/30/2022 160.02 cm 36.3 kg/m2 98747.44 g 97.1 [degF] Cris NAIK [facility] [place] 11/30/2022 11:40:11 Date Recorded Body height Body mass index (BMI) Body weight Body temperature Provider Name and Address Organization Details Last Updated DateTime 02/06/2023 160.02 cm 36.3 kg/m2 35979.44 g 97.5 [degF] Cris NAIK [facility] [place] 02/06/2023 10:54:02 Social History None recorded. Functional Status None recorded. Mental Status None recorded. Family History Relationship Description Onset Age of this Age Resolved Age Notes LastModified by Organization Details LastModified Time Father No current problems or disability [email or web address] Not available 11/30 11:52:00 Mother No current problems or disability [email or web address] Not available 11/30 11:52:00 Medical History No medical history recorded. Gynecological HistoryNo gynecological history recorded. Obstetrics History GPAL:G 0 P 0 0 0 0 Past Encounters Encounter ID Performer Location Encounter Start Date Encounter Closed Date Diagnosis/Indication Diagnosis SNOMED-CT Code Diagnosis ICD10 Code Diagnosis Note [id number] Iron Munroe Jr, [facility] [address] [address] 11/30/2022 11:24:47 11/30/2022 13:03:56 Mixed urinary incontinence 214251232 N39.46 patient is 77-year-ol d white female with recent lower urinary tract symptoms. Do not believe she had urinary retention at the time of her ER visit. She has mixed urinary incontinen ce some going to treat the urge component with oxybutynin 15 mg and we will see her back in the office in 6 weeks. We discussed that the stress incontinen ce component is a surgical fix. [id number] Iron Munroe Jr, MD [facility] [address] [address] 02/06/2023 10:50:33 02/06/2023 11:27:09 Urge incontinence of urine 68631172 N39.41 Patient with urge incontinen ce. She had some recent side effects 2 weeks ago where she felt dry and lost her sense of taste in urine output fell off. She stopped the oxybutynin in her incontinen ce has returned but the side effects resolved. It is robyn liz that she had no problems until 2 weeks ago. We will change her over to [place]. Health Concerns Section Related Observation LastModified by Organization Detai ls LastModified Time None Recorded Concern Status LastModified by Organization Details LastModified Time None Recorded Advance Directives Directive None Recorded Payers Insurance Date Sequence Insurance Name Policy Number Policy Mayorga Covered Member ID Mayorga Member ID Guarantor Name 08/18/2023 1 MEDICARE[place] (MEDICARE[place] Lian Bliss [id number] Lian Bliss 02/23/2023 2 MEDICAID-[facility] CHOICES - FFS/TRADITIO NAL Lian Bliss [id number] Lian Bliss Notes Date Note Type Note Provider Name and Address Organization Details Recorded Time 11/30/2022 text/html patient is a 77-year-old female with recent difficulty voiding. She was in the emergency room last week and a Ag catheter was placed. Postvoid residual not available. She states that she was just dribbling all day with a weak stream prior to her ER visit. her renal function is normal with creatinine is 1.1. Her urinalysis was unremarkable in the emergency room. Iron Munroe Jr, MD [address] [place] [address], [address], [place], [address], [place] - [facility] 12/13/2022 12:49:32 02/06/2023 text/html patient is a 78-year-old white female with history of urge incontinence. her oxybutynin was increased to 15 mg in November and she states that her leaking resolved at that time and was doing well. Two weeks ago however she had decreased urine output and lost her taste and smell and was very dry so she stopped the oxybutynin and her symptoms resolved. She has stayed off the oxybutynin and states that the leakage has returned. She is currently wearing 4 pull-ups a day. Iron Munroe Jr, MD [address] [place] [address], [address], [place], [address], [facility] [place] [facility] [place] 02/06/2023 12:10:21 OBGyn Episode No OBEpisode recorded.
--- NOTE | 2024-12-17 12:30 | NM_ITS ---
APPROVED REPORT Exam: Nuclear Stress Test Indication: Chest pain, SOB, HTN, High cholesterol, Family history Patient Location: Outpatient Stress Tech: Day Dumont [place] Tech:Alyssa Ponce RANDI RT(R)(N) Ht: 5 ft 2 in Wt: 185 lbs Bra Size: 42B HR: 75 bpm BP: 154/67 mmHg BSA: 1.85 m2 TID: 1.10 BMI: 33.8 History: Chest pain, SOB, HTN, High cholesterol, Family history Procedure: Patient received 0.4 mg of intravenous Lexiscan, resting heart rate 75 bpm, resting blood pressure 154/67 mmHg, with Lexiscan maximum heart rate achieved was 91 bpm which is % of the maximum predicted heart rate and blood pressure was 147/66 mmHg. With Lexiscan, patient denied any complaint of chest pain. Cardiac Stress and Resting SPECT Images: Cardiac Stress and Resting SPECT images were obtained using technetium 99m Myoview 30.9 mCi stress and 10.01 mCi at rest. The patient is unable to lie on her abdomen. Therefore, prone stress imaging could not be performed. This may affect the diagnostic interpretation of the study findings. Resting and stress imaging in supine positions demonstrate a medium sized, moderate, reversible perfusion defect in the basal to mid lateral LV alicea. Gated imaging demonstrates mild reduction in global LV systolic function. There is moderate hypokinesis of the basal lateral LV wall. LVEF is calculated 47%. Conclusion: Medium sized, moderate, reversible perfusion defect in the basal to mid lateral LV alicea. Findings are suggestive of reversible ischemia. Gated imaging demonstrates mild reduction in global LV systolic function. There is moderate hypokinesis of the basal lateral LV wall. LVEF is calculated 47%. Correlation of LV systolic function with new or recent TTE is suggested. Electronically signed by : Joceline Smyth MD 12/20/2024 22:31:37
[2024-12-17] MEDS: REGADENOSON 0.4MG/5ML SYRINGE 0.4 MG IV (14:35)
[2024-12-17] MEDS: ISOTOPE MYOVIEW (PER STUDY) 1 DOSE IV (14:35)
[2024-12-17] MEDS: SODIUM CHLORIDE 0.9% 10ML SYR (RAD ONLY) 10 ML IV ×2 (14:35)
== END 2024-12-17 23:59 | disposition home or self-care (01) ==
LOC: RAD 12:25
PROVIDERS: PCP Nurse Practitioner; Visit Provider Nurse Practitioner Family
DX: R07.9 Chest pain, unspecified (principal); I50.20 Unspecified systolic (congestive) heart failure; R60.9 Edema, unspecified; I48.0 Paroxysmal atrial fibrillation; I10 Essential (primary) hypertension; I35.0 Nonrheumatic aortic (valve) stenosis; I50.30 Unspecified diastolic (congestive) heart failure; I89.0 Lymphedema, not elsewhere classified; R06.02 Shortness of breath; E03.9 Hypothyroidism, unspecified
CPT/HCPCS: 78452; 93017; 93018; A9502; J2785

== ENCOUNTER 2024-12-21 11:03 | Outpatient (CLI) | payer MEDICARE, MEDICAID, SELFPAY ==
--- NOTE | 2024-12-21 11:05 | CA_ITS ---
APPROVED REPORT EXAM: Comprehensive 2D, Doppler, and color-flow Echocardiogram Mask Design Engineer: Graciela Aggarwal RVT Ht: 5 ft 2 in Wt: 190lbs BSA: 1.87 BP: 140/61 mmHg Indications: CP,HFrEF,A-FIB,,HTN,HLD,SOA,EDEMA TDS-PT CHEST VERY TENDER 2D Dimensions LA Volume 89.10 mL LA Volume Index 47.65 mL/m2 (M/F) 16-34 M-Mode Dimensions RVDd 3.38 cm (0.9-2.6) LA Diam 4.96 cm (1.9-4.0) LVDd 4.82 cm (3.5-5.7) LVDs 2.92 cm (3.5-5.7) IVSd 1.40 cm (0.6-1.1) PWd 0.38 cm (0.6-1.1) EF (Teich) 69.80% FS 39.40% EDV (Teich) 108.60 mL TAPSE 2.69 (<1.7) ESV (Teich) 32.80 mL LV Diastology E Decel Time 270 (160-240 msec) E/A Ratio 0.8 Aortic Valve ABHI Index 0.80 cm2/m2 AoV Peak Pravin. 342.0 (50-130 cm/s) AO Peak GR. 46.80 mmHg AO Mean GR. 26.50 (<5 mmHg) AO VTI 74.2 (18-25 cm) ABHI (VTI) 1.54 (2.5-4.5 cm2) Mitral Valve MV E Max Pravin. 106.0 (40-130 cm/s) MV A Velocity 133.0 (40-130 cm/s) E/A Ratio 0.80 MV PHT 79.0 ms Pulmonary Valve PV Peak Velocity 141.0 (50-150 cm/s) Tricuspid Valve TR P. Velocity 322.00 cm/s RAP Estimate 10.00 mmHg RVSP 51.60 mmHg Left Ventricle The left ventricle is normal size. The left ventricular systolic function is mildly reduced. There is increased LV wall thickness. There is severe hypokinesis of the LV apex. Grade 2 diastolic dysfunction is present. LVEF is 45-50%. Right Ventricle The right ventricle is not very well-visualized, but grossly appears mildly dilated with normal RV function. Atria The left ventricle is severely dilated. Right ventricle is mildly dilated. There is no Doppler evidence of interatrial shunt. Aortic Valve The aortic valve is moderately thickened. Moderate aortic stenosis is present. ABHI by continuity equation is 1.4 cm???. Mean peak velocity 3.4 m/s. Mean AV gradient 28 mmHg. Max AV gradient 47 mmHg. Trace aortic regurgitation. Mitral Valve The mitral valve leaflets are mildly thickened. No evidence of mitral valve stenosis. Trace mitral regurgitation. Tricuspid Valve Tricuspid valve is grossly normal in structure and function. Mild tricuspid regurgitation. RVSP is 30-35 mmHg. Pulmonic Valve The pulmonary valve is normal in structure. Trace pulmonic regurgitation. Great Vessels The aortic root is normal in size. IVC is normal in size and collapses >50% with inspiration. He Pericardium There is no pericardial effusion. Other Information Study Quality: Fair Conclusion Mild reduction in LV systolic function (LVEF 45-50%). Severe hypokinesis of the LV apical wall. Grade 2 diastolic dysfunction. Mild RV dilation with normal RV function. Biatrial dilation. Moderate (ABHI by continuity equation is 1.4 cm???. Mean peak velocity 3.4 m/s. Mean AV gradient 28 mmHg. Max AV gradient 47 mmHg). Mild TR. Electronically signed by : Joceline Smyth MD 12/24/2024 00:15:12
--- OUTSIDE RECORDS SUMMARY | 2024-12-21 11:05 | XMS_ITS | Data Portability ---
Author Organization [facility] [place], [facility] [place] Address [facility] [place] [address] Assessment No assessment recorded. Plan of Treatment Reminders Order Date Submit Date Provider Last Modified By Organization Details Last Modified Time Details Appointments None recorded. Lab None recorded. Referral None recorded. Procedures None recorded. Surgeries None recorded. Imaging None recorded. Medication Orders Gemtesa 75 mg tablet 2022 023 [facility], [address] [place] [address] [address] [address] [place], [place], [id number], 4 16:34:23 oxybutynin chloride ER 15 mg tablet,exte nded release 24 hr [email or web address] [facility], [address] [place] [address] [facility] [place], [place], [id number], 3 12:46:59 Patient TargetsNo targets recorded. Patient InstructionsNo instructions recorded. Reason for Referral None Reported. Results Created Date Observation Date Name Description Value Unit Range Abnormal Flag Note LastModifiedBy Organization Detail LastModifiedTime Result Notes None recorded. Problems Name Problem SNOMED Code Status Onset Date Resolution Date Notes Provider Name and Address Organization Details Recorded Time Hypertensive disorder 62807555 Active 2022 HEENA Beasley [facility] & [place] 3 11:52:53 Heart irregularly irregular 582008528 Active 2022 HEENA Beasley [facility] & [place] 3 11:53:03 Thyroid eye disease 342299524 Active 2022 Cris gandara, HEENA - [facility] [place] [facility] [place] 3 11:53:27 Environmental allergy 204316591 Active 2022 Cris gandara, HEENA - [facility] [place] [facility] [place] 3 11:54:02 Sleep apnea 82355563 Active 2022 Cris gandara, [place]EENA - [facility] - [place] [facility] [place] 3 11:54:13 Gastroesophage al reflux disease 172883901 Active 2022 Cris gandara, [place] - [facility] [place] [facility] [place] 3 11:54:20 Gastric ulcer 582788661 Active 2022 Cris gandara, [place]EENA - [facility] - [place] [facility] [place] 3 11:54:30 Kidney stone 54726387 Active 2022 Cris gandara, HEENA - [facility] - [place] [facility] [place] 3 11:54:41 Arthritis 9467830 Active 2022 Cris gandara, [place] - [facility] [place] [facility] [place] 3 11:54:50 Asthma 515051030 Active 2022 Cris gandara, HEENA - [facility] - [place] & [place] 3 11:54:59 Problem Notes None recorded. Medical Equipment None Reported. Allergies Allergen ID Allergen Name Allergen Category Reaction Reaction Severity Criticality Documentation Date Start Date Code Code System Note Provider Name and Address Organization Details Recorded Time 41546 pseudoeph edrine Not available Not available Not available Not available 11/30/2022 8896 RxNorm Cris gandara, [place]EE[place] - [facility] [place] [facility] [place] 3 11:42:06 97234 azithromy quan medicatio n Not available Not available Not available 11/30/2022 79997 RxNorm Cris gandara, [place]EE[place] - [facility] - [place] & [place] 3 11:42:16 61522 Medicinal product containin g cephalosp gibson and acting as antibacte rial agent (product) medicatio n Not available Not available Not available 11/30/2022 96471 9009 SNOMED Cris gandara, [place] - [facility] - [place] & [place] 3 11:42:25 95227 chocolate flavor food,medi cation Not available Not available Not available 11/30/2022 77586 UNK Cris gandara, [place] - [facility] - [facility] & [place] 3 11:42:34 50353 clarithro mycin medicatio n Not available Not available Not available 11/30/2022 16214 RxNorm Cris g[place]ara, [place] - [facility] [place] 3 11:42:46 77555 erythromy quan medicatio n Not available Not available Not available 11/30/2022 4053 RxNorm Cris gandara, [place]EE[place] - [facility] - [facility] & [place] 3 11:42:59 21012 guaifenes in medicatio n Not available Not available Not available 11/30/2022 5032 RxNorm Cris g[place]ara, [place] [facility] [place] [facility] [place] 3 11:43:[address] medicatio n Not available Not available Not available 11/30/2022 82334 RxNorm Cris g[place]ara[place] [facility] [place] [facility] [place] 3 11:43:25 86518 nabumeton e medicatio n Not available Not available Not available 11/30/2022 34366 RxNorm Cris gandara, [place]EE[place] - [facility] - [place] & [place] 3 11:43:34 73512 nitrofura ntoin medicatio n Not available Not available Not available 11/30/2022 7454 RxNorm Cris gandara, [place]EE[place] - [facility] - [place] & [place] 3 11:44:13 08741 Non-stero idal anti-infl ammatory agent (product) medicatio n Not available Not available Not available 11/30/2022 12731 005 SNOMED Cris g[place]ara, [place] [facility] [place] [facility] [place] 3 11:44:28 71196 Product containin g penicilli n (product) medicatio n Not available Not available Not available 11/30/2022 86315 8001 SNOMED HEENA Beasley [facility] [place] 3 11:45:03 13793 prednison e medicatio n Not available Not available Not available 11/30/2022 8640 RxNorm HEENA Beasley [facility] [place] 3 11:45:21 32470 Substance with sulfonami de structure and antibacte rial mechanism of action (substanc e) medicatio n Not available Not available Not available 11/30/2022 20617 8003 SNOMED HEENA Beasley [facility] [place] 3 11:45:32 30031 cefdinir medicatio n Not available Not available Not available 11/30/2022 73147 RxNorm HEENA Beasley [facility] [place] 3 11:46:00 83496 clindamyc in Not available Not available Not available Not available 11/30/2022 2582 RxNorm HEENA Beasley [facility] [place] 3 11:47:22 82238 codeine medicatio n Not available Not available Not available 11/30/2022 2670 RxNorm HEENA Beasley [facility] [place] 3 11:47:39 17515 doxycycli ne Not available Not available Not available Not available 11/30/2022 3640 RxNorm HEENA Beasley [facility] [place] 3 11:47:52 18200 fexofenad ine medicatio n Not available Not available Not available 11/30/2022 43170 RxNorm HEENA Beasley [facility] [place] 3 11:49:06 43243 fluticaso ne Not available Not available Not available Not available 11/30/2022 08918 RxNorm HEENA Beasley [facility] [place] 3 11:49:17 10121 imipramin e Not available Not available Not available Not available 11/30/2022 5691 RxNorm HEENA Beasley [facility] [place] 3 11:50:02 63619 metoclopr amide Not available Not available Not available Not available 11/30/2022 6915 RxNorm HEENA Beasley [facility] [place] 3 11:50:17 06215 mometason e furoate medicatio n Not available Not available Not available 11/30/2022 92604 RxNorm HEENA Beasley [facility] [place] 3 11:50:34 81547 salmetero l medicatio n Not available Not available Not available 11/30/2022 28744 RxNorm HEENA Beasley [facility] [place] 3 11:51:00 17009 tramadol medicatio n Not available Not available Not available 11/30/2022 79281 RxNorm HEENA Beasley [facility] [place] 3 11:51:21 48500 acetamino phen medicatio n Not available Not available Not available 11/30/2022 161 RxNorm HEENA Beasley [facility] [place] 3 11:51:36 26470 hydrocodo ne Not available Not available Not available Not available 11/30/2022 5489 RxNorm HEENA Beasley [facility] [place] 3 11:51:53 Medications Name Sig Start Date [...] Updated DateTime 11/30/2022 160.02 cm 36.3 kg/m2 49473.44 g 97.1 [degF] Cris NAIK [facility] [place] 11/30/2022 11:40:11 Date Recorded Body height Body mass index (BMI) Body weight Body temperature Provider Name and Address Organization Details Last Updated DateTime 02/06/2023 160.02 cm 36.3 kg/m2 21872.44 g 97.5 [degF] Cris NAIK [facility] [place] 02/06/2023 10:54:02 Social History None recorded. Functional Status None recorded. Mental Status None recorded. Family History Relationship Description Onset Age of this Age Resolved Age Notes LastModified by Organization Details LastModified Time Father No current problems or disability [email or web address] Not available 11/30 11:52:00 Mother No current problems or disability [email or web address] Not available 11/30 11:52:00 Medical History No medical history recorded. Gynecological HistoryNo gynecological history recorded. Obstetrics History GPAL:G 0 P 0 0 0 0 Past Encounters Encounter ID Performer Location Encounter Start Date Encounter Closed Date Diagnosis/Indication Diagnosis SNOMED-CT Code Diagnosis ICD10 Code Diagnosis Note [id number] [facility] [address] [address] 11/30/2022 11:24:47 11/30/2022 13:03:56 Mixed urinary incontinence 605737898 N39.46 patient is 77-year-ol d white female [...] incontinen ce component is a surgical fix. [id number] Iron Munroe Jr, MD [facility] [address] [address] 02/06/2023 10:50:33 02/06/2023 11:27:09 Urge incontinence of urine 74164772 N39.41 Patient with urge incontinen ce. She [...] Mayorga Member ID Guarantor Name 08/18/2023 1 [place] Lian Bliss [id number] Lian Bliss 02/23/2023 2 MEDICAID-[facility] CHOICES - FFS/TRADITIO NAL Lian Bliss [id number] Lian Bliss Notes Date Note Type Note [...] the emergency room. Iron Munroe Jr, MD [address] [place] [address], [address], [place], [address], [place] - [facility] 12/13/2022 12:49:32 02/06/2023 text/html patient is [...] pull-ups a day. Iron Munroe Jr, MD [address] [place] [address], [address], [place], [address], [facility] [place] & [place] 02/06/2023 12:10:21 OBGyn Episode No OBEpisode recorded.
== END 2024-12-21 23:59 | disposition home or self-care (01) ==
LOC: RT 11:03
PROVIDERS: PCP Nurse Practitioner; Visit Provider Nurse Practitioner Family
DX: I08.2 Rheumatic disorders of both aortic and tricuspid valves (principal); I11.0 Hypertensive heart disease with heart failure; I50.20 Unspecified systolic (congestive) heart failure; I50.30 Unspecified diastolic (congestive) heart failure; I89.0 Lymphedema, not elsewhere classified; E03.9 Hypothyroidism, unspecified; I48.91 Unspecified atrial fibrillation; E78.5 Hyperlipidemia, unspecified
CPT/HCPCS: 93306

== ENCOUNTER → 2025-01-06 09:05 | Day surgery (SDC) | payer MEDICARE, MEDICAID, SELFPAY ==
[2025-01-06] VITALS (10 sets, daily range): BP systolic 109–144; BP diastolic 47–94; PULSE 61–79; RESP 18–20; O2SAT 90–93; BMI 31.8
--- NOTE | 2025-01-06 07:40 | IR_ITS ---
APPROVED REPORT Patient Location: Outpatient PROCEDURES Left heart catheterization Left ventriculogram Selective coronary angiogram INDICATION Abnormal Myoview, Angina pectoris Informed consent was obtained prior to the procedure. COMPLICATIONS none Estimated Blood Loss: less than 10ml TECHNIQUE One percent lidocaine used to anesthetize the right anterior aspect of the wrist. The right radial artery was accessed via the Seldinger technique. A long hydrophilic 23 cm 6 Malay sheath was placed in the right radial artery. 2.5 mg of Verapamil, 800 mcg of nitroglycerin, 1mg Lidocaine and 5000 U Heparin were given through the arterial sheath. The JL3 catheter was also used to perform left heart catheterization, left ventriculogram and selective coronary angiogram. At the end of the procedure the sheath was removed good hemostasis was achieved using Traclet band, patient was transferred to the postop holding area in stable condition. ANGIOGRAPHIC RESULTS The left main artery Normal The left anterior descending artery Has proximal and mid vessel 10% diffuse luminal irregularities The circumflex artery Nondominant with diffuse 10 to 20% luminal irregularities The right coronary artery Dominant with proximal and mid vessel 10 to 20% luminal irregularities The FRANKLIN ventriculogram reveals Normal 65% The left ventricular end-diastolic pressure 15 to 20 mmHg IMPRESSION Mild nonflow limiting coronary artery disease Normal ejection fraction Borderline elevated LVEDP PLAN 1. Medical management with risk factor modification Electronically signed by : Wild Barbosa MD 01/06/2025 12:52:43
[2025-01-06 09:48] LABS: Anion Gap 9.7 mEq/L (5-15); Blood Urea Nitrogen 41 mg/dl (7-17); Calcium 8.5 mg/dl (8.4-10.2); Carbon Dioxide 26 mmol/L (22.0-30.0); Chloride 110 mmol/L (98-107); Creatinine Clearance Estimated 33 mL/min (50-200); Estimated Glomerular Filt Rate 29 ml/min (>60); GFR (African American) 35 ML/MIN (>60); Glucose 89 mg/dl (74-100); Potassium 5.7 mmoL/L (3.5-5.1); Sodium 140 mmol/L (136-145)
[2025-01-06 10:12] LABS: Basophils % 0.2 % (0.1-2.0); Eosinophils # 0.2 Kmm3 (0.0-0.4); Eosinophils % 4.1 % (0.1-12.0); Hematocrit 29.7 % (37.0-47.0); Immature Granulocytes # 0.02 10^3uL; Immature Granulocytes % 0.4 %; Lymphocytes # 0.9 K/mm3 (0.7-4.5); Lymphocytes % 15.5 % (10-50); Mean Corpuscular HGB Conc 30.3 g/dL (31.8-35.4); Mean Corpuscular Hemoglobin 27.6 pg (27.0-31.2); Mean Corpuscular Volume 91.1 fl (81-99); Mean Platelet Volume 13.2 fl (7.4-10.4); Monocytes # 0.5 K/mm3 (0.1-1.0); Monocytes % 8.1 % (1.7-9.3); Neutrophils % 71.7 % (37.0-80.0); Nucleated Red Blood Cells # 0 10^3/uL; Nucleated Red Blood Cells % 0 %; Platelet Count 142 K/mm3 (142-424); Red Blood Count 3.26 M/mm3 (4.20-5.40); Red Cell Distribution Width 16.8 % (11.5-17.5); Red Cell Distribution Width-SD 56.5 fL; White Blood Count 5.6 K/mm3 (4.8-10.8)
[2025-01-06] MEDS: HEPARIN 1,000 UNITS/500ML NS (CATH LAB) 3000 UNIT IV (11:44)
[2025-01-06] MEDS: VERAPAMIL 2.5MG/ML 2ML VIAL 2.5 MG IV (11:44)
[2025-01-06] MEDS: NITROGLYCERIN 800MCG/8ML SYR (CATH LAB) 800 MCG IA (11:44)
[2025-01-06] MEDS: LIDOCAINE 1% 10ML MDV 10 ML IJ (11:44)
[2025-01-06] MEDS: diphenhydrAMINE 50MG/ML VIAL 50 MG IV (11:45)
[2025-01-06] MEDS: 0.9 % SODIUM CHLORIDE 500 ML 25 ML IV (11:45)
[2025-01-06] MEDS: HEPARIN 1,000 UNITS/ML 10ML VIAL (CATH LAB) 5000 UNIT IV (11:45)
[2025-01-06] MEDS: MIDAZOLAM HCL 1MG/ML 5ML VIAL 1 MG IV (12:27)
[2025-01-06] MEDS: FENTANYL 100MCG/2ML VIAL 50 MCG IV (12:28)
[2025-01-06] MEDS: IOPAMIDOL-370 (76%);100ML BOTTLE 100 ML IV (13:34)
== END | disposition home or self-care (01) ==
PROVIDERS: PCP Nurse Practitioner; Visit Provider Internal Medicine
PROC: 4A023N7 Measurement of Cardiac Sampling and Pressure, Left Heart, Percutaneous Approach (ICD-10-PCS; CPT 93452; principal; 2025-01-06 09:15)
DX: I25.118 Atherosclerotic heart disease of native coronary artery with other forms of angina pectoris (principal); R93.1 Abnormal findings on diagnostic imaging of heart and coronary circulation; I50.42 Chronic combined systolic (congestive) and diastolic (congestive) heart failure; I13.0 Hypertensive heart and chronic kidney disease with heart failure and stage 1 through stage 4 chronic kidney disease, or unspecified chronic kidney disease; E11.22 Type 2 diabetes mellitus with diabetic chronic kidney disease; Z96.641 Presence of right artificial hip joint; I89.0 Lymphedema, not elsewhere classified; I35.0 Nonrheumatic aortic (valve) stenosis; I48.0 Paroxysmal atrial fibrillation; L03.115 Cellulitis of right lower limb; L03.116 Cellulitis of left lower limb; N18.2 Chronic kidney disease, stage 2 (mild); Z79.899 Other long term (current) drug therapy; Z88.0 Allergy status to penicillin; Z88.1 Allergy status to other antibiotic agents; Z88.2 Allergy status to sulfonamides; Z88.6 Allergy status to analgesic agent; Z88.5 Allergy status to narcotic agent; Z88.8 Allergy status to other drugs, medicaments and biological substances
CPT/HCPCS: 80048; 85025; 93458; 99152; C1725; C1769; J1200; J1644; J3010; Q9967

== ENCOUNTER 2025-01-13 10:47 | Outpatient (CLI) | payer MEDICARE, MEDICAID, SELFPAY ==
--- OUTSIDE RECORDS SUMMARY | 2025-01-13 10:50 | XMS_ITS | Data Portability ---
Author Organization [facility] & [place], [facility] [place] Address [facility] [place] [address] Assessment No assessment recorded. Plan of Treatment Reminders Order Date Submit Date Provider Last Modified By Organization Details Last Modified Time Details Appointments None recorded. Lab None recorded. Referral None recorded. Procedures None recorded. Surgeries None recorded. Imaging None recorded. Medication Orders Gemtesa 75 mg tablet 2022 023 [facility], [address] [place] [address] [address] [address] [place], [place], [id number], 4 16:34:23 oxybutynin chloride ER 15 mg tablet,exte nded release 24 hr [email or web address] [facility] [address] [facility], [address] [place] [address] [facility] [place], [place], [id number], 3 12:46:59 Patient TargetsNo targets recorded. Patient InstructionsNo instructions recorded. Reason for Referral None Reported. Results Created Date Observation Date Name Description Value Unit Range Abnormal Flag Note LastModifiedBy Organization Detail LastModifiedTime Result Notes None recorded. Problems Name Problem SNOMED Code Status Onset Date Resolution Date Notes Provider Name and Address Organization Details Recorded Time Hypertensive disorder 78319169 Active 2022 HEENA Beasley [facility] & [place] 3 11:52:53 Heart irregularly irregular 671330810 Active 2022 HEENA Beasley [facility] & [place] 3 11:53:03 Thyroid eye disease 471571833 Active 2022 Cris gandara, HEE[facility] - [facility] - [place] & [place] 3 11:53:27 Environmental allergy 235718238 Active 2022 Cris gandara, HEENA - [facility] - [place] & [place] 3 11:54:02 Sleep apnea 03939207 Active 2022 Cris gandara, HEENA - [facility] - [place] & [place] 3 11:54:13 Gastroesophage al reflux disease 561218675 Active 2022 Cris gandara, [place] - [facility] - [place] & [place] 3 11:54:20 Gastric ulcer 991594320 Active 2022 Cris gandara, HEENA - [facility] - [place] & [place] 3 11:54:30 Kidney stone 34523458 Active 2022 Cris gandara, HEENA - [facility] - [place] & [place] 3 11:54:41 Arthritis 3975128 Active 2022 Cris gandara, [place] - [facility] - [place] & [place] 3 11:54:50 Asthma 709194335 Active 2022 Cris gandara, HEENA - [facility] - [place] & [place] 3 11:54:59 Problem Notes None recorded. Medical Equipment None Reported. Allergies Allergen ID Allergen Name Allergen Category Reaction Reaction Severity Criticality Documentation Date Start Date Code Code System Note Provider Name and Address Organization Details Recorded Time 02809 pseudoeph edrine Not available Not available Not available Not available 11/30/2022 8896 RxNorm Cris gandara, [facility]EE[place] - [facility] - [place] & [place] 3 11:42:06 75440 azithromy quan medicatio n Not available Not available Not available 11/30/2022 82616 RxNorm Cris gandara, [place]EE[place] - [facility] - [place] & [place] 3 11:42:16 79795 Medicinal product containin g cephalosp gibson and acting as antibacte rial agent (product) medicatio n Not available Not available Not available 11/30/2022 60985 9009 SNOMED Cris gandara, [place] - [facility] - [place] & [place] 3 11:42:25 62519 chocolate flavor food,medi cation Not available Not available Not available 11/30/2022 86673 UNK Cris gandara, [place] - [facility] - [facility] & [place] 3 11:42:34 28335 clarithro mycin medicatio n Not available Not available Not available 11/30/2022 84150 RxNorm Cris gandara, [place] - [facility] - [facility] [place] & [place] 3 11:42:46 55174 erythromy quan medicatio n Not available Not available Not available 11/30/2022 4053 RxNorm Cris gandara, [place]EE[place] - [facility] - [facility] [place] & [place] 3 11:42:59 37083 guaifenes in medicatio n Not available Not available Not available 11/30/2022 5032 RxNorm Cris gandara, [place] - [facility] - [place] & [place] 3 11:43:[address] medicatio n Not available Not available Not available 11/30/2022 80490 RxNorm Cris gandara, [place] [facility] [place] & [place] 3 11:43:25 95013 nabumeton e medicatio n Not available Not available Not available 11/30/2022 52635 RxNorm Cris gandara, [place]EE[place] - [facility] - [place] & [place] 3 11:43:34 26916 nitrofura ntoin medicatio n Not available Not available Not available 11/30/2022 7454 RxNorm Cris gandara, [place]EE[place] - [facility] - [place] & [place] 3 11:44:13 72777 Non-stero idal anti-infl ammatory agent (product) medicatio n Not available Not available Not available 11/30/2022 25340 005 SNOMED Cris gandara, [place] - [facility] - [place] & [place] 3 11:44:28 11778 Product containin g penicilli n (product) medicatio n Not available Not available Not available 11/30/2022 08585 8001 SNOMED HEENA Beasley [facility] & [place] 3 11:45:03 86756 prednison e medicatio n Not available Not available Not available 11/30/2022 8640 RxNorm HEENA Beasley [facility] & [place] 3 11:45:21 37184 Substance with sulfonami de structure and antibacte rial mechanism of action (substanc e) medicatio n Not available Not available Not available 11/30/2022 66770 8003 SNOMED HEENA Beasley [facility] & [place] 3 11:45:32 10799 cefdinir medicatio n Not available Not available Not available 11/30/2022 70835 RxNorm HEENA Beasley [facility] & [place] 3 11:46:00 57548 clindamyc in Not available Not available Not available Not available 11/30/2022 2582 RxNorm HEENA Beasley [facility] & [place] 3 11:47:22 89265 codeine medicatio n Not available Not available Not available 11/30/2022 2670 RxNorm HEENA Beasley [facility] & [place] 3 11:47:39 55670 doxycycli ne Not available Not available Not available Not available 11/30/2022 3640 RxNorm HEENA Beasley [facility] & [place] 3 11:47:52 91097 fexofenad ine medicatio n Not available Not available Not available 11/30/2022 70608 RxNorm HEENA Beasley [facility] & [place] 3 11:49:06 52857 fluticaso ne Not available Not available Not available Not available 11/30/2022 51223 RxNorm HEENA Beasley [facility] & [place] 3 11:49:17 43846 imipramin e Not available Not available Not available Not available 11/30/2022 5691 RxNorm HEENA Beasley [facility] & [place] 3 11:50:02 83576 metoclopr amide Not available Not available Not available Not available 11/30/2022 6915 RxNorm HEENA Beasley [facility] & [place] 3 11:50:17 89366 mometason e furoate medicatio n Not available Not available Not available 11/30/2022 72284 RxNorm HEENA Beasley [facility] & [place] 3 11:50:34 51684 salmetero l medicatio n Not available Not available Not available 11/30/2022 51029 RxNorm HEENA Beasley [facility] & [place] 3 11:51:00 45662 tramadol medicatio n Not available Not available Not available 11/30/2022 55920 RxNorm HEENA Beasley [facility] & [place] 3 11:51:21 34105 acetamino phen medicatio n Not available Not available Not available 11/30/2022 161 RxNorm HEENA Beasley [facility] & [place] 3 11:51:36 39896 hydrocodo ne Not available Not available Not available Not available 11/30/2022 5489 RxNorm HEENA Beasley [facility] & [place] 3 11:51:53 Medications Name Sig Start Date [...] Updated DateTime 11/30/2022 160.02 cm 36.3 kg/m2 41259.44 g 97.1 [degF] Cris NAIK [facility] & [place] 11/30/2022 11:40:11 Date Recorded Body height Body mass index (BMI) Body weight Body temperature Provider Name and Address Organization Details Last Updated DateTime 02/06/2023 160.02 cm 36.3 kg/m2 39774.44 g 97.5 [degF] Cris NAIK [facility] & [place] 02/06/2023 10:54:02 Social History None recorded. Functional Status None recorded. Mental Status None recorded. Family History Relationship Description Onset Age of this Age Resolved Age Notes LastModified by Organization Details LastModified Time Father No current problems or disability [email or web address] Not available 11/30 11:52:00 Mother No current problems or disability [email or web address] Not available 11/30 11:52:00 Medical History No medical history recorded. Gynecological HistoryNo gynecological history recorded. Obstetrics History GPAL:G 0 P 0 0 0 0 Past Encounters Encounter ID Performer Location Encounter Start Date Encounter Closed Date Diagnosis/Indication Diagnosis SNOMED-CT Code Diagnosis ICD10 Code Diagnosis Note [id number] Iron Munroe Jr, MD [facility]3]y [address] [address] 11/30/2022 11:24:47 11/30/2022 13:03:56 Mixed urinary incontinence 981638087 N39.46 patient is 77-year-ol d white female [...] incontinen ce component is a surgical fix. [id number] Iron Munroe Jr, MD [facility] [address] [address] 02/06/2023 10:50:33 02/06/2023 11:27:09 Urge incontinence of urine 72189836 N39.41 Patient with urge incontinen ce. She [...] Mayorga Member ID Guarantor Name 08/18/2023 1 [place] Lian Bliss [id number] Lian Bliss 02/23/2023 2 MEDICAID-[facility] CHOICES - FFS/TRADITIO NAL Lian Bliss [id number] Lina Bliss Notes Date Note Type Note Provider [...] the emergency room. Iron Munroe Jr, MD [address] [place] [address], [address], [place], [address], [place] - [facility] 12/13/2022 12:49:32 02/06/2023 text/html patient is a [...] pull-ups a day. Iron Munroe Jr, MD [address] [place] [address], [address], [place], [address], [facility] - [place] & [place] 02/06/2023 12:10:21 OBGyn Episode No OBEpisode recorded.
[2025-01-13 11:14] LABS: Basophils % 0.5 % (0.1-2.0); Eosinophils # 0.3 Kmm3 (0.0-0.4); Eosinophils % 4.3 % (0.1-12.0); Hematocrit 29.6 % (37.0-47.0); Hemoglobin 8.8 g/dL (12.2-16.2); Immature Granulocytes # 0.03 10^3uL; Immature Granulocytes % 0.5 %; Lymphocytes # 1.1 K/mm3 (0.7-4.5); Lymphocytes % 17.7 % (10-50); Mean Corpuscular HGB Conc 29.7 g/dL (31.8-35.4); Mean Corpuscular Hemoglobin 26.9 pg (27.0-31.2); Mean Corpuscular Volume 90.5 fl (81-99); Mean Platelet Volume 12.3 fl (7.4-10.4); Monocytes # 0.4 K/mm3 (0.1-1.0); Monocytes % 6.6 % (1.7-9.3); Neutrophils # 4.5 K/mm3 (1.8-7.8); Neutrophils % 70.4 % (37.0-80.0); Nucleated Red Blood Cells # 0 10^3/uL; Nucleated Red Blood Cells % 0 %; Platelet Count 158 K/mm3 (142-424); Red Blood Count 3.27 M/mm3 (4.20-5.40); Red Cell Distribution Width 16.2 % (11.5-17.5); Red Cell Distribution Width-SD 54.4 fL; White Blood Count 6.3 K/mm3 (4.8-10.8)
[2025-01-13 11:38] LABS: Chloride 110 mmol/L (98-107); Sodium 140 mmol/L (136-145)
[2025-01-13 11:40] LABS: Blood Urea Nitrogen 44 mg/dl (7-17); Estimated Glomerular Filt Rate 24 ml/min (>60); GFR (African American) 29 ML/MIN (>60)
[2025-01-13 11:41] LABS: Alanine Aminotransferase 8 U/L (12-78); Alkaline Phosphatase 81 U/L (38-126); Aspartate Amino Transferase 16 U/L (14-36); Bilirubin,Direct 0.3 mg/dl (0.0-0.4); Bilirubin,Indirect 0.1 mg/dL (0.0-0.9); Bilirubin,Total 0.4 mg/dl (0.2-1.3); Bilirubin,Unconjugated 0.1 mg/dL (0.0-1.1); Calcium 8.7 mg/dl (8.4-10.2); Carbon Dioxide 24 mmol/L (22.0-30.0); Cholesterol 128 mg/dl (140-200); Glucose 91 mg/dl (74-100); Total Protein,Serum 6.8 g/dl (6.3-8.2); Triglycerides 102 mg/dl (30-150); VLDL Cholesterol 20 mg/dL (0-40)
[2025-01-13 11:42] LABS: HDL Cholesterol 32 mg/dl (40-60)
[2025-01-13 11:46] LABS: Anion Gap 13.3 mEq/L (5-15); Potassium 7.3 mmoL/L (3.5-5.1)
[2025-01-13 11:52] LABS: Direct LDL Cholesterol 65.75 mg/dL (100-129)
[2025-01-13 11:58] LABS: Free T4 (Free Thyroxine) 1.01 ng/dl (0.78-2.19)
[2025-01-13 12:13] LABS: Thyroid Stimulating Hormone 2.07 uIU/mL (0.465-4.68)
[2025-01-13 13:34] LABS: Potassium 6.7 mmoL/L (3.5-5.1)
== END 2025-01-13 23:59 | disposition home or self-care (01) ==
LOC: LAB 12:57
PROVIDERS: PCP Nurse Practitioner Family; Visit Provider Nurse Practitioner Family
DX: I35.0 Nonrheumatic aortic (valve) stenosis (principal); I10 Essential (primary) hypertension; E78.5 Hyperlipidemia, unspecified; E87.5 Hyperkalemia; R06.02 Shortness of breath
CPT/HCPCS: 36415; 80048; 80061; 80076; 83735; 84132; 84439; 84443; 85025

== ENCOUNTER 2025-01-13 13:41 | Inpatient (IN) | payer MEDICARE, SELFPAY ==
[2025-01-13] VITALS (8 sets, daily range): BP systolic 113–138; BP diastolic 50–81; PULSE 69–134; RESP 13–26; TEMP 36.7–37; O2SAT 90–100; BMI 31.8; BMI 31.0
--- NOTE | 2025-01-13 13:59 | ECG_ITS ---
APPROVED REPORT Exam: Resting ECG HR:65 bpm ECG Measurements Heart Rate 65 AXES TN 166 P 64 QRSd 89 QRS -19 QT 404 T 61 QTc 416 Conclusion SINUS RHYTHM WITH MARKED SINUS ARRHYTHMIA MODERATE ST DEPRESSION [0.05+ mV ST DEPRESSION] ABNORMAL ECG No STEMI Electronically signed by : MIA RAMIREZ, 01/14/2025 06:43:29
--- NOTE | 2025-01-13 14:04 | [facility]H.EDGENADL ---
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 Vital Signs: 01/13/25 13:44 01/13/25 14:30 01/13/25 15:00 Temperature 98.2 F Temperature Source Oral Pulse Rate 74 72 Pulse Rate [Right] 69 Respiratory Rate 18 18 15 Blood Pressure 130/80 132/67 Blood Pressure [Right Arm] 134/64 Blood Pressure Mean 96 88 Blood Pressure Mean [Right Arm] 87 Blood Pressure Source Blood Pressure Source [Right Arm] Blood Pressure Position 02 Sat by Pulse Oximetry 92 L 94 L 94 L Oxygen Delivery Method Room Air Oxygen Flow Rate (LPM) 01/13/25 15:31 01/13/25 15:50 01/13/25 16:00 Temperature Temperature Source Pulse Rate 85 129 H Pulse Rate [Right] Respiratory Rate 20 22 Blood Pressure 113/81 116/66 Blood Pressure [Right Arm] Blood Pressure Mean 89 82 Blood Pressure Mean [Right Arm] Blood Pressure Source Blood Pressure Source [Right Arm] Blood Pressure Position 02 Sat by Pulse Oximetry 100 90 L Oxygen Delivery Method Nasal Cannula Nasal Cannula Oxygen Flow Rate (LPM) 3 2 01/13/25 16:00 01/13/25 16:13 01/13/25 16:30 Temperature 98.4 F 98.1 F Temperature Source Oral Oral Pulse Rate 86 118 H Pulse Rate [Right] 134 H Respiratory Rate 26 H 19 22 Blood Pressure 116/66 116/50 L Blood Pressure [Right Arm] 116/50 L Blood Pressure Mean 72 Blood Pressure Mean [Right Arm] 72 Blood Pressure Source Automatic Cuff Blood Pressure Source [Right Arm] Automatic Cuff Blood Pressure Position Supine 02 Sat by Pulse Oximetry 95 91 L Oxygen Delivery Method Nasal Cannula Room Air Nasal Cannula Oxygen Flow Rate (LPM) 3 2 Lab Data Lab Results 01/13/25 14:12: WBC 6.6, RBC 3.24 L, Hgb 8.9 L, Hct 29.2 L, MCV 90.1, MCH 27.5, MCHC 30.5 L, RDW 16.4, Plt Count 140 L, MPV 13.3 H, Neut % (Auto) 69.9, Lymph % (Auto) 19.4, Mitchell % (Auto) 5.9, Eos % (Auto) 3.8, Baso % (Auto) 0.5, Neut # (Auto) 4.6, Lymph # (Auto) 1.3, Mitchell # (Auto) 0.4, Eos # (Auto) 0.3, Baso # (Auto) 0.0, Sodium 141, Potassium 6.8 H* 01/13/25 14:12: Potassium 7.1 H*, Chloride 110 H, Carbon Dioxide 23, Anion Gap 14.8, BUN 43 H, Creatinine 2.00 H, Estimated Creat Clear 29, Estimated GFR 24 L, Est GFR ( Amer) 29 L, Glucose 86, Uric Acid 9.6 H, Calcium 8.9, Phosphorus 3.4 01/13/25 14:12: Phosphorus 3.4, Magnesium 1.9, Total Bilirubin 0.5, AST 16, ALT 9 L, Alkaline Phosphatase 87, Lactate Dehydrogenase 194 L, Total Creatine Kinase 40, Total Protein 7.4, Albumin 4.1, Globulin 3.3 H, Albumin/Globulin Ratio 1.2, Lipase 144 01/13/25 14:21: VBG pH 7.28 L, VBG pCO2 46.7, VBG pO2 61.2 H, VBG HCO3 21.2 L, VBG Total CO2 22.6 L, VBG O2 Saturation 90.1 H, VBG Base Excess -5.6 L, VBG Lactic Acid 1.4 01/13/25 14:26: APTT 26.5 Orders (Tests/Meds): ED MEDICATIONS Generic Name Dose Route Start Last Admin Trade Name Freq PRN Reason Stop Dose Admin Aspirin 81 mg 01/14/25 09:00 Aspirin Ec 81mg Tablet PO 02/13/25 08:59 DAILY GLENNY Bumetanide 2 mg 01/14/25 09:00 Bumetanide 1 Mg Tablet PO 02/13/25 08:59 DAILY GLENNY Empagliflozin 10 mg 01/14/25 09:00 Empagliflozin 10mg Tablet PO 02/13/25 08:59 DAILY GLENNY Enoxaparin Sodium 30 mg 01/14/25 09:00 Enoxaparin 40mg/0.4ml Syringe SUBCUT 02/13/25 08:59 DAILY GLENNY Levothyroxine Sodium 25 mcg 01/14/25 09:00 Levothyroxine 25mcg (0.025mg) Tab PO 02/13/25 08:59 DAILY GLENNY Loratadine 10 mg 01/14/25 09:00 Loratadine 10mg Tablet PO 02/13/25 08:59 DAILY GLENNY Mirtazapine 15 mg 01/13/25 21:00 01/13/25 20:42 Mirtazapine 15 Mg Tablet PO 02/12/25 20:59 15 mg HS GLENNY Administration Non-Formulary Medication 75 mg 01/14/25 09:00 Vibegron [Gemtesa] PO 02/13/25 08:59 DAILY GLENNY Non-Formulary Medication 7.5 mg 01/13/25 21:00 01/13/25 20:41 Buspirone PO 02/12/25 20:59 7.5 mg BID GLENNY Administration Ondansetron HCl 4 mg 01/13/25 17:39 Ondansetron 4mg/2ml Vial IV 02/12/25 17:38 Q6HP PRN Nausea Pantoprazole Sodium 40 mg 01/13/25 21:00 01/13/25 20:43 Pantoprazole 40mg Tablet PO 02/12/25 20:59 40 mg HS GLENNY Administration Sertraline HCl 150 mg 01/14/25 09:00 Sertraline 100mg Tablet PO 02/13/25 08:59 DAILY GLENNY Sodium Bicarbonate 650 mg 01/13/25 17:45 01/13/25 20:43 Sodium Bicarbonate 650mg Tablet PO 02/12/25 17:44 Not Given TID GLENNY Sodium Polystyrene Sulfonate 15 gm 01/13/25 17:25 01/13/25 20:43 Sodium Poly Sulfon 15gm/60ml Oral.Susp RC 01/14/25 17:24 15 gm QID GLENNY Administration Sodium Zirconium Cyclosilicate 10 gm 01/13/25 15:45 01/13/25 16:11 Lokelma 5gm Packet PO 01/14/25 15:44 10 gm DAILY GLENNY Administration Discontinued Medications Generic Name Dose Route Start Last Admin Trade Name Freq PRN Reason Stop Dose Admin Albuterol Sulfate 10 mg 01/13/25 14:20 01/13/25 14:43 Albuterol 0.083% 2.5 Mg/3 Ml Neb IH 01/13/25 14:21 10 mg ONCE ONE Administration Bumetanide 1 mg 01/13/25 17:45 01/13/25 17:46 Bumetanide 1mg/4ml Vial IV 01/13/25 17:46 1 mg ONCE ONE Administration Dextrose 25 ml 01/13/25 14:20 01/13/25 14:43 Dextrose 50% 50ml Syringe (Crash Cart) IVP 01/13/25 14:21 25 ml ONCE ONE Administration Dextrose 50 ml 01/13/25 17:45 01/13/25 17:46 Dextrose 50% 50ml Syringe (Crash Cart) IV 01/13/25 17:46 50 ml ONCE ONE Administration Sodium Chloride 1,000 mls @ 999 mls/hr 01/13/25 14:07 01/13/25 14:44 Sod Chlor 0.9% 1000ml Bag IV 01/13/25 15:07 999 mls/hr .Q1H1M ONE Administration Calcium Gluconate/Sodium Chloride 1 gm in 50 mls @ 50 mls/hr 01/13/25 14:20 01/13/25 14:43 Calcium Gluconate 1,000mg/50ml Nacl Premix IV 01/13/25 15:19 50 mls/hr ONCE ONE Administration Insulin Human Lispro 10 unit 01/13/25 14:39 01/13/25 14:43 Humalog 100 Units/Ml 10ml Vial (Ssi) IV 01/13/25 14:40 10 unit ONCE ONE Administration Insulin Human Lispro 10 unit 01/13/25 17:30 01/13/25 17:45 Humalog 100 Units/Ml 10ml Vial (Ssi) IV 01/13/25 17:31 10 unit ONCE ONE Administration Morphine Sulfate 4 mg 01/13/25 16:04 01/13/25 16:12 Morphine 4mg/Ml Syringe IV 01/13/25 16:05 4 mg ONCE ONE Administration Ondansetron HCl 4 mg 01/13/25 16:04 01/13/25 16:12 Ondansetron 4mg/2ml Vial IV 01/13/25 16:05 4 mg ONCE ONE Administration ORDERS Category Date Time Status XR chest portable Stat Exams 01/13/25 15:13 Completed CBC [Complete Blood Count Auto Diff] Stat Lab 01/13/25 14:12 Completed Comprehensive Metabolic Panel Stat Lab 01/13/25 14:12 Completed Lipase Stat Lab 01/13/25 14:12 Completed Magnesium Stat Lab 01/13/25 14:12 Completed PHOS [Phosphorous] Stat Lab 01/13/25 14:12 Completed PTT [Activated Partial Thrombo Time] Stat Lab 01/13/25 14:26 Completed VBG [Venous Blood Gas] Stat RT 01/13/25 14:21 Completed ECG Data Tracing #1: I reviewed this ECG and interpreted as documented below: Sinus rhythm with sinus arrhythmia with a ventricular to [address] changes concerning for ischemia. No peaked T waves. Normal intervals ECG initial impression date: 01/13/25 ECG initial impression time: 14:10 Medical Decision Narrative: patient is a 79-year-old female presenting to the emergency department for evaluation of elevated potassium. She was sent from Dr. Barbosa's office for potassium of 6.7. Patient is hemodynamically stable and nontoxic-appearing upon arrival, afebrile. Differential diagnosis includes hyperkalemia, heart failure, COPD among other things. Workup will be conducted with hematologic labs, specific imaging due to cough. Initial inventions include calcium,, regular insulin, albuterol and dextrose to bring down her potassium. Initial workup reviewed by me potassium was 6.8, BUN and creatinine were 43 and 2 with a GFR of 29. Patient did asked me to look at her legs as they were painful. She has lesions, open wounds on her right leg that have been wrapped by home health. She says these have been like that for months. We have also given Lokelma here in the ED. Discussed with hospital medicine who accepted patient for hyperkalemia and SILVIA. Patient safe for admission. DO Joel: I was consulted by the JOSE GUADALUPE, and we discussed the complexity of the problems being addressed. I approved the treatment and management plan for this patient's care in the emergency department, thus performing a substantive portion of the medical decision making. Tara Maldonado DO Critical Care <Gill Galvez (ED), [facility] - Last Filed: 01/13/25 16:43> Critical Care Time Critical Care Time: No <Tara Maldonado DO - Last Filed: 01/14/25 07:07> Critical Care Time Critical Care Time: Yes Attestation: On 01/13/25, the high probability of a clinically significant, sudden or life threatening deterioration of the following system(s) required my full and direct attention, intervention and personal management. The time I documented below is in addition to time spent performing reported procedures but includes the following listed in this critical care notation. Total Time Total Critical Care Time: 35
[2025-01-13 14:27] LABS: Lactate Venous 1.4 mmol/L (0.4-2.0); VBG Base Excess -5.6 mmol/L (-2.4-2.3); VBG HCO3 21.2 mmol/L (23-30); VBG Oxygen Saturation 90.1 % (50-70); VBG PCO2 46.7 mmol/L (35-51); VBG PH 7.28 mmol/L (7.31-7.41); VBG PO2 61.2 mmol/L (28-40); VBG Total CO2 22.6 mmol/L (23-27)
[2025-01-13 14:29] LABS: Basophils % 0.5 % (0.1-2.0); Eosinophils # 0.3 Kmm3 (0.0-0.4); Eosinophils % 3.8 % (0.1-12.0); Hematocrit 29.2 % (37.0-47.0); Hemoglobin 8.9 g/dL (12.2-16.2); Immature Granulocytes # 0.03 10^3uL; Immature Granulocytes % 0.5 %; Lymphocytes # 1.3 K/mm3 (0.7-4.5); Lymphocytes % 19.4 % (10-50); Mean Corpuscular HGB Conc 30.5 g/dL (31.8-35.4); Mean Corpuscular Hemoglobin 27.5 pg (27.0-31.2); Mean Corpuscular Volume 90.1 fl (81-99); Mean Platelet Volume 13.3 fl (7.4-10.4); Monocytes # 0.4 K/mm3 (0.1-1.0); Monocytes % 5.9 % (1.7-9.3); Neutrophils # 4.6 K/mm3 (1.8-7.8); Neutrophils % 69.9 % (37.0-80.0); Nucleated Red Blood Cells # 0 10^3/uL; Nucleated Red Blood Cells % 0 %; Platelet Count 140 K/mm3 (142-424); Red Blood Count 3.24 M/mm3 (4.20-5.40); Red Cell Distribution Width 16.4 % (11.5-17.5); Red Cell Distribution Width-SD 54.3 fL; White Blood Count 6.6 K/mm3 (4.8-10.8)
[2025-01-13 14:40] LABS: Phosphorous 3.4 mg/dl (2.5-4.5)
[2025-01-13 14:41] LABS: Alanine Aminotransferase 9 U/L (12-78); Albumin Level 4.1 g/dl (3.5-5.0); Albumin/Globulin Ratio 1.2 (1.1-1.8); Alkaline Phosphatase 87 U/L (38-126); Anion Gap 14.8 mEq/L (5-15); Aspartate Amino Transferase 16 U/L (14-36); Bilirubin,Total 0.5 mg/dl (0.2-1.3); Blood Urea Nitrogen 43 mg/dl (7-17); Calcium 8.9 mg/dl (8.4-10.2); Carbon Dioxide 23 mmol/L (22.0-30.0); Chloride 110 mmol/L (98-107); Creatinine Clearance Estimated 29 mL/min (50-200); Estimated Glomerular Filt Rate 24 ml/min (>60); GFR (African American) 29 ML/MIN (>60); Globulin 3.3 g/dL (1.3-3.2); Glucose 86 mg/dl (74-100); Lipase 144 U/L (23-300); Magnesium 1.9 mg/dl (1.6-2.3); Sodium 141 mmol/L (136-145); Total Protein,Serum 7.4 g/dl (6.3-8.2)
[2025-01-13] MEDS: CALCIUM GLUC IN NACL, ISO-OSM 1 GM/50 ML BAG IV (14:43)
[2025-01-13] MEDS: humaLOG 100 UNITS/ML 10ML VIAL (SSI) 10 UNIT IV ×2 (14:43→17:45)
[2025-01-13] MEDS: DEXTROSE 50% 50ML SYRINGE (CRASH CART) 25 ML IVP (14:43)
[2025-01-13] MEDS: ALBUTEROL 0.083% 2.5 MG/3 ML NEB 10 MG IH (14:43)
[2025-01-13] MEDS: 0.9 % SODIUM CHLORIDE 1000ML 1,000 ML 999 ML IV (14:44)
[2025-01-13 14:46] LABS: Potassium 6.8 mmoL/L (3.5-5.1)
[2025-01-13 14:56] LABS: Activated Partial Thrombo Time 26.5 seconds (22.8-30.6)
--- NOTE | 2025-01-13 15:08 | PC.NURSE ---
wound dressed to rightm lower extremity, dressed with vaseline gauze and kerlex
--- NOTE | 2025-01-13 15:10 | PC.NURSE ---
patient also has open wound on right heel
--- NOTE | 2025-01-13 15:13 | XR_ITS ---
FINAL REPORT TECHNIQUE: Single view chest CLINICAL HISTORY: cough COMPARISON: 09/05/2023 FINDINGS: A single view of the chest was obtained. The heart and mediastinum are within normal limits. There are persistent low lung volumes. Bibasilar opacities likely represent atelectasis. There are questionable small pleural effusions. There is no pneumothorax. IMPRESSION: Bibasilar opacities, likely atelectasis with small pleural effusions. Reviewed, Interpreted and Dictated by Gayathri Brooks MD Transcribed by Noni Overton Authenticated and [facility]
--- NOTE | 2025-01-13 15:43 | PC.NURSE ---
HS notified of the need for a bed to admit to the hospitalist.
[2025-01-13] MEDS: LOKELMA 5GM PACKET 10 GM PO (16:11)
[2025-01-13] MEDS: ONDANSETRON 4MG/2ML VIAL 4 MG IV (16:12)
[2025-01-13] MEDS: MORPHINE 4MG/ML SYRINGE 4 MG IV (16:12)
--- NOTE | 2025-01-13 16:12 | PC.NURSE ---
report given [id number]
--- NOTE | 2025-01-13 16:28 | ECG_ITS ---
APPROVED REPORT Exam: Resting ECG HR:87 bpm ECG Measurements Heart Rate 87 AXES OR 147 P 76 QRSd 101 QRS -32 QT 342 T 76 QTc 386 Conclusion SINUS RHYTHM LEFT AXIS DEVIATION [QRS AXIS < -30] NONSPECIFIC ST & T-WAVE ABNORMALITY ABNORMAL ECG UNCONFIRMED REPORT Electronically signed by : Ryne Schaefer, 01/15/2025 23:05:02
--- NOTE | 2025-01-13 16:47 | PC.NURSE ---
went in to round on patient calcium gluc was locked and not infusing, started that back and patient was given morphine and zofran, shortly after she became 88%on room air heart rate irregular going to 130s- 80s, stopped the calcium gluc, applied 2 liters NC, she does report wearing 2liters NC at home when she needs to
[2025-01-13 17:00] LABS: Potassium 7.1 mmoL/L (3.5-5.1)
[2025-01-13] MEDS: SODIUM POLY SULFON 15GM/60ML ORAL.SUSP 15 GM RC ×2 (17:45→20:43)
[2025-01-13] MEDS: DEXTROSE 50% 50ML SYRINGE (CRASH CART) 50 ML IV (17:46)
[2025-01-13] MEDS: BUMETANIDE 1MG/4ML VIAL 1 MG IV (17:46)
--- NOTE | 2025-01-13 18:20 | PC.WOUNDNOTE ---
(R) heel with 3/4 in ulceration ulceration to RLE multiple ulcerations to RLE ulceration to RLE ulceration to LLE
[2025-01-13 18:21] LABS: POC Glucose,Bedside 96 (70-110)
[2025-01-13 18:31] LABS: Creatine Kinase 40 U/L (30-135); Phosphorous 3.4 mg/dl (2.5-4.5); Uric Acid 9.6 mg/dl (2.5-6.2)
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
--- NOTE | 2025-01-13 19:25 | PC.NURSE ---
Sodium bicarb not administered d/t med being unavailable. Roger aware and okayed it not being administered.
[2025-01-13] MEDS: PATIENT'S OWN HOME MEDICATION (Buspirone 7.5 mg tablet) 7.5 EACH PO (20:41)
[2025-01-13] MEDS: MIRTAZAPINE 15 MG TABLET PO (20:42)
[2025-01-13] MEDS: PANTOPRAZOLE 40MG TABLET 40 MG PO (20:43)
--- NOTE | 2025-01-13 20:59 | ECG_ITS ---
APPROVED REPORT Exam: Resting ECG HR:119 bpm ECG Measurements Heart Rate 119 AXES QRSd 90 QRS -45 QT 320 T 82 QTc 391 Conclusion ATRIAL FIBRILLATION WITH RAPID VENTRICULAR RESPONSE LEFT ANTERIOR FASCICULAR BLOCK [QRS AXIS <= -45, QR IN I, RS IN II] NONSPECIFIC ST & T-WAVE ABNORMALITY ABNORMAL ECG UNCONFIRMED REPORT Electronically signed by : Lance Santillan MD 01/14/2025 08:35:20
--- NOTE | 2025-01-13 21:00 | PC.NURSE ---
this RN noticed patient appeared to be in Afib with RVR on the tele monitor - primary nurse notified, EKG obtained and Afib confirmed per EKG.
[2025-01-13 21:55] LABS: Anion Gap 10.4 mEq/L (5-15); Blood Urea Nitrogen 39 mg/dl (7-17); Calcium 8.4 mg/dl (8.4-10.2); Carbon Dioxide 24 mmol/L (22.0-30.0); Chloride 112 mmol/L (98-107); Creatinine Clearance Estimated 30 mL/min (50-200); Estimated Glomerular Filt Rate 26 ml/min (>60); GFR (African American) 31 ML/MIN (>60); Glucose 95 mg/dl (74-100); Potassium 5.4 mmoL/L (3.5-5.1); Sodium 141 mmol/L (136-145)
[2025-01-13 22:28] LABS: Lactate Dehydrogenase 194 U/L (313-618)
--- NOTE | 2025-01-13 22:34 | PC.NURSE ---
EKG obtained by respiratory showing AFIB w/RVR. Notified provider by phone of rhythm change. Notified provider of pt history of AFIB and that 400mg PO amiodarone had been administered as scheduled on the OCT. Received no new orders from provider. Pt resting in bed with eyes closed, low, locked bed, and call light is in reach.
[2025-01-14] VITALS (11 sets, daily range): BP systolic 94–126; BP diastolic 52–89; PULSE 80–140; RESP 15–22; TEMP 36.6–37.1; O2SAT 92–95; BMI 30.5
--- NOTE | 2025-01-14 03:48 | PC.NURSE ---
Pt AOx4. Fine crackles throughout lungs upon auscultation. Pt is on 4L O2. Purewick in place and draining. 20g L wrist. Resting in bed with eyes closed at this time. Respirations even and unlabored. Bed is low, locked, and call light is in reach.
[2025-01-14 06:39] LABS: Albumin Level 3.3 g/dl (3.5-5.0); Chloride 112 mmol/L (98-107); Sodium 140 mmol/L (136-145)
[2025-01-14 06:41] LABS: Blood Urea Nitrogen 33 mg/dl (7-17); Creatinine Clearance Estimated 31 mL/min (50-200); Estimated Glomerular Filt Rate 27 ml/min (>60); GFR (African American) 33 ML/MIN (>60)
[2025-01-14 06:42] LABS: Alanine Aminotransferase 7 U/L (12-78); Albumin/Globulin Ratio 1.2 (1.1-1.8); Alkaline Phosphatase 73 U/L (38-126); Anion Gap 9.3 mEq/L (5-15); Aspartate Amino Transferase 18 U/L (14-36); Bilirubin,Total 0.3 mg/dl (0.2-1.3); Calcium 7.9 mg/dl (8.4-10.2); Carbon Dioxide 25 mmol/L (22.0-30.0); Globulin 2.7 g/dL (1.3-3.2); Glucose 99 mg/dl (74-100); Magnesium 1.8 mg/dl (1.6-2.3)
[2025-01-14 06:44] LABS: Basophils % 0.3 % (0.1-2.0); Eosinophils # 0.1 Kmm3 (0.0-0.4); Eosinophils % 2.3 % (0.1-12.0); Hematocrit 27.6 % (37.0-47.0); Hemoglobin 8.1 g/dL (12.2-16.2); Immature Granulocytes # 0.02 10^3uL; Immature Granulocytes % 0.3 %; Lymphocytes # 0.8 K/mm3 (0.7-4.5); Lymphocytes % 12.2 % (10-50); Mean Corpuscular HGB Conc 29.3 g/dL (31.8-35.4); Mean Platelet Volume 13.1 fl (7.4-10.4); Monocytes # 0.4 K/mm3 (0.1-1.0); Monocytes % 6.7 % (1.7-9.3); Neutrophils # 4.8 K/mm3 (1.8-7.8); Neutrophils % 78.2 % (37.0-80.0); Nucleated Red Blood Cells # 0 10^3/uL; Nucleated Red Blood Cells % 0 %; Platelet Count 146 K/mm3 (142-424); Red Cell Distribution Width 16.2 % (11.5-17.5); Red Cell Distribution Width-SD 54.5 fL; White Blood Count 6.1 K/mm3 (4.8-10.8)
[2025-01-14 06:47] LABS: Potassium 6.3 mmoL/L (3.5-5.1)
--- NOTE | 2025-01-14 07:38 | HMH.PHAINT1 ---
Pharmacy Intervention Comments: MEDICATION RECONCILIATION COMPLETED ON PATIENT USING EXTERNAL FILL HISTORY FROM PHARMACY AND LIST FROM CARDIOLOGY OFFICE. -ELIO MARTINEZ, FARHADD
--- NOTE | 2025-01-14 08:04 | SW/DCPLANNER ---
Addendum entered by Day Wilkes 01/14/25 11:07: Patient is established with [facility]. Rick Ambrocio Original Note: I spoke w/ patient this AM regarding discharge planning. Patient stated that she currently resides at home alone, wears home O2 and is established w/ home health. Patient is unsure of home health agency name but stated they are out of [facility]. PT has been ordered to evaluate patient today. I will follow up once evaluation is completed. Discharge date is unknown at this time.
[2025-01-14] MEDS: ENOXAPARIN 40MG/0.4ML SYRINGE 40 MG SUBCUT (08:55)
[2025-01-14] MEDS: LORATADINE 10MG TABLET 10 MG PO (08:56)
[2025-01-14] MEDS: BUMETANIDE 1 MG TABLET 2 MG PO (08:56)
[2025-01-14] MEDS: ASPIRIN EC 81MG TABLET 81 MG PO (08:56)
[2025-01-14] MEDS: SERTRALINE 100MG TABLET 150 MG PO (08:56)
[2025-01-14] MEDS: BUSPIRONE HCL 5 MG TABLET 7.5 MG PO ×2 (08:56→20:05)
[2025-01-14] MEDS: SODIUM POLY SULFON 15GM/60ML ORAL.SUSP 15 GM RC ×3 (08:57→16:02)
[2025-01-14] MEDS: EMPAGLIFLOZIN 10MG TABLET 10 MG PO (08:57)
[2025-01-14] MEDS: SODIUM BICARBONATE 650MG TABLET 650 MG PO ×3 (08:57→20:05)
[2025-01-14] MEDS: LOKELMA 5GM PACKET 10 GM PO (09:01)
[2025-01-14] MEDS: LEVOTHYROXINE 25MCG (0.025MG) TAB 25 MCG PO (09:04)
--- NOTE | 2025-01-14 09:35 | HMH.PTEV ---
Physical Therapy Evaluation Rehab PT IP Evaluation Start: 01/13/25 18:05 Freq: ONCE Status: Active Protocol: Document 01/14/25 09:27 BRIAN (Rec: 01/14/25 09:33 BRIAN Desktop) Subjective/History History History Per H&P: This is a 79-year-old female who has a past medical history significant for anemia, angina, heart failure reduced ejection fracture, hypertension, chronic wounds of lower extremities, migraine headache, heart murmur, GERD, depression, coronary artery disease, cancer, arrhythmia, anxiety, renal mass, COPD with as needed home O2 at 2 L, hyperlipidemia, hypertension, nephrolithiasis, diabetes , anxiety, osteoarthritis, narcolepsy, and hypothyroidism who presents due to abnormal lab values. Patient recently underwent left heart cath by Dr. Barbosa which revealed minimal coronary artery disease and borderline elevated left ventricular end-diastolic pressures. She was called by her primary cardiac interventionalists and was informed that her potassium was supratherapeutic. She presented to the emergency room for evaluation where she was found to have a potassium of 7. She was given Kevin cocktail and hospital medicine was contacted for further management. During my evaluation of the patient, patient states she has had no symptoms. She does mention that she was recently prescribed spironolactone and has taken it for the last 7 days. Patient has been prescribed valsartan for the last 3 months. She does mentions that she has been followed by wound care therapy and home health for bilateral lower extremity wounds. She states she has had a ultrasound performed that did not reveal any limited lower extremity flow. She does endorse having some wheezing and lightheadedness that is no more than normal. Currently, she denies any chest pain, dizziness, fever, chills, rigors, nausea, vomiting, or diarrhea. Review of chest x-ray shows small pleural effusion bilaterally. Additional pertinent labs obtained include a red blood cell count of 3.24, hemoglobin 8.9, hematocrit of 29.2, platelet count of 140, potassium of 7.1, chloride of 110, BUN of 43, creatinine of 2, GFR 24, and uric acid 9.6. EKG reveals a sinus arrhythmia, QTc of 496, left axis shift Subjective Subjective Pt lives at home alone. Pt reports she uses an electric w/c for all mobility. Pt is not ambulatory. Pt reports she sleeps in a recliner. Pt has a ramp. Pt uses an elevated toilet seat. Pt reports she is IND with w/c mobility, dressing, and transfers to/from w/c. Pt reports her grandson lives nearby and can check in as needed. New diagnosis of No cancer in past 12 months? [facility] How much help from another person do you currently need... Turning from your None back to your side while in a flat bed without using bedrails? Moving from lying on None back to sitting on the side of a flat bed without using bedrails? Moving to and from a None bed to a chair ( including a wheelchair)? Standing up from a None chair using your arms? (e.g., wheelchair, bedside chair) Walking in hospital A lot room? Climbing 3-5 steps A lot with a railing? Mobility Score [address] [facility] Mobility 6 Walk 10 steps or more Mobility Calculator Rehab PT IP Eval Objective Appearance Patient Behavior Appropriate,Cooperative Patient Orientation Person Difficulty following none instructions Speech Pattern Clear Ambulation Patient Able to No Ambulate Balance Ability to Arise Able, uses arms to help Sitting Balance Steady, safe Standing Balance Steady, wide stance Transfers Bed Transfer Ability Supervision/Stand by Sit to Stand Bed Supervision/Stand by,Contact Guard/Hand Hold Transfer Ability Sit to Stand Chair Contact Guard/Hand Hold Transfer Ability Rehab PT IP prob,goals,plan Problems Date of Evaluation: 01/14/25 PT IP Problems Bed Mobility,Transfers,Gait,Balance,Self care,Safety Rehab Potential Rehab Potential Good Plan PT Intervention Plan Bed Mobility,Transfers,Gait,Balance,Self care,Safety, Therapeutic Exercise Other Intervention 1-2 times Plan PT Plan Frequency Daily Duration LOS Discharge Goals Bed Transfer Ability Independent Sit to Stand Chair Independent Transfer Ability Discharge Plan PT Discharge Plan Pt presents near her baseline with mobility. Pt was able to transfer to chair with supervision and performed bed mobility without assistance. Pt performed 2 brief changes while standing and did not demo LOB. Pt reports she does well using her electric w/c at home . Pt would benefit from skilled acute care PT to encourage mobility and address generalized strength deficits. Pt most appropriate to d/c home with supervision or assistance as needed from family d/t mobility being at baseline. Recommending PT. Eval Complexity Eval Charge Codes 72643 - Moderate Complexity PHYSICIAN CERTIFICATION: I certify the specified therapy services for Lian Keenan Bliss are required, authorized, and reviewed every 30 days.
[2025-01-14 10:48] LABS: POC Glucose,Bedside 99 (70-110)
--- NOTE | 2025-01-14 11:52 | ECG_ITS ---
APPROVED REPORT Exam: Resting ECG HR:122 bpm ECG Measurements Heart Rate 122 AXES QRSd 122 QRS -39 QT 313 T 98 QTc 385 Conclusion ATRIAL FIBRILLATION WITH RAPID VENTRICULAR RESPONSE LEFT AXIS DEVIATION [QRS AXIS < -30] LEFT BUNDLE BRANCH BLOCK [120+ ms QRS DURATION, 80+ ms Q/S IN V1/V2, 85+ ms R IN I/aVL/V5/V6] Marked artifact ABNORMAL ECG UNCONFIRMED REPORT Electronically signed by : Lance Santillan MD 01/15/2025 08:22:50
[2025-01-14] MEDS: humaLOG 100 UNITS/ML 10ML VIAL (SSI) 10 UNIT SUBCUT (12:30)
[2025-01-14] MEDS: METOPROLOL TARTRATE 5MG/5ML VIAL 5 MG IV (12:30)
[2025-01-14] MEDS: DEXTROSE 50% 50ML SYRINGE (CRASH CART) 50 ML IVP ×3 (12:30→15:54)
[2025-01-14 12:46] LABS: POC Glucose,Bedside 111 (70-110)
[2025-01-14 13:09] LABS: POC Glucose,Bedside 168 (70-110)
[2025-01-14] MEDS: INSULIN HUMAN REGULAR 100 UNITS/ML 10ML VIAL 10 UNIT IVP (13:28)
[2025-01-14 14:28] LABS: POC Glucose,Bedside 70 (70-110)
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
[2025-01-14 15:30] LABS: Blood Urea Nitrogen 32 mg/dl (7-17); Calcium 8.2 mg/dl (8.4-10.2); Carbon Dioxide 28 mmol/L (22.0-30.0); Chloride 106 mmol/L (98-107); Creatinine Clearance Estimated 31 mL/min (50-200); Estimated Glomerular Filt Rate 27 ml/min (>60); GFR (African American) 33 ML/MIN (>60); Sodium 141 mmol/L (136-145)
[2025-01-14 15:33] LABS: Glucose 39 mg/dl (74-100)
[2025-01-14 15:49] LABS: POC Glucose,Bedside 51 (70-110)
[2025-01-14] MEDS: METOPROLOL SUCCINATE XL 25MG TABLET 12.5 MG PO (15:54)
[2025-01-14 16:36] LABS: POC Glucose,Bedside 150 (70-110)
--- NOTE | 2025-01-14 17:05 | PC.NURSE ---
Pt is A&Ox4. Vital signs stable on 3L NC at this time. Pt's HR elevated throughout shift. notified. EKG ordered showing a-fib RVR. Cardiology consulted. See MAR for medications ordered and given for HR and potassium level. Notified by lab of a critical glucose of 39 at 1532. Patient immediately assessed and given two orange juices. FSBS checked with glucometer showing 51. Dr. Duran notified of critical value and glucometer reading. D50 IVP ordered and administered- see MAR. Pt FSBS re-checked again at 1630 showing 150. Pt has been up to the [facility] this shift with assistance. Bilateral legs with ulcerations- dressings in place. Attempted to remove dressings and re-dress legs, pt did not want dressings changed. Pt resting comfortably with no further complaints voiced at this time. Call light within reach.
[2025-01-14 18:21] LABS: POC Glucose,Bedside 117 (70-110)
--- NOTE | 2025-01-14 18:21 | P.PN_ITS ---
Subjective *Date: 01/14/25 *Time: 18:21 Exam Data for Last 24 hours Vital signs and Labs for Last 24 Hours: Temp Pulse Resp BP Pulse Ox O2 Del Method O2 Flow Rate 97.8 F 90 18 124/66 93 L Nasal Cannula 3 01/14/25 15:58 01/14/25 16:00 01/14/25 15:58 01/14/25 15:58 01/14/25 15:58 01/14/25 17:00 01/14/25 17:00 Laboratory Results - last 24 hr 01/13/25 14:12: Uric Acid 9.6 H, Phosphorus 3.4, Lactate Dehydrogenase 194 L, Total Creatine Kinase 40 01/13/25 17:10: POC Glucose 96 01/13/25 21:18: Sodium 141, Potassium 5.4 H D, Chloride 112 H, Carbon Dioxide 24, Anion Gap 10.4, BUN 39 H, Creatinine 1.90 H, Estimated Creat Clear 30, Estimated GFR 26 L, Est GFR ( Amer) 31 L, Glucose 95, Calcium 8.4 01/14/25 05:55: WBC 6.1, RBC 3.00 L, Hgb 8.1 L, Hct 27.6 L, MCV 92.0, MCH 27.0, MCHC 29.3 L, RDW 16.2, Plt Count 146, MPV 13.1 H, Neut % (Auto) 78.2, Lymph % (Auto) 12.2, [place] % (Auto) 6.7, Eos % (Auto) 2.3, Baso % (Auto) 0.3, Neut # (Auto) 4.8, Lymph # (Auto) 0.8, [place] # (Auto) 0.4, Eos # (Auto) 0.1, Baso # (Auto) 0.0, Sodium 140, Potassium 6.3 H*, Chloride 112 H, Carbon Dioxide 25, Anion Gap 9.3, BUN 33 H, Creatinine 1.80 H, Estimated Creat Clear 31, Estimated GFR 27 L, Est GFR ( Amer) 33 L, Glucose 99, Calcium 7.9 L, Magnesium 1.8, Total Bilirubin 0.3, AST 18, ALT 7 L, Alkaline Phosphatase 73, Total Protein 6.0 L, Albumin 3.3 L D, Globulin 2.7, Albumin/Globulin Ratio 1.2 01/14/25 10:41: POC Glucose 99 01/14/25 12:29: POC Glucose 111 H 01/14/25 13:02: POC Glucose 168 H 01/14/25 14:22: POC Glucose 70 01/14/25 14:38: Sodium 141, Potassium 5.0 D, Chloride 106, Carbon Dioxide 28, Anion Gap 12.0, BUN 32 H, Creatinine 1.80 H, Estimated Creat Clear 31, Estimated GFR 27 L, Est GFR ( Amer) 33 L, Glucose 39 L* D, Calcium 8.2 L 01/14/25 15:35: POC Glucose 51 L 01/14/25 16:28: POC Glucose 150 H I & O for Last 24 hours: Intake & Output 01/11/25 01/12/25 01/13/25 01/14/25 23:59 23:59 23:59 23:59 Intake Total 700 / 700 Output Total 0 / 0 550 / 550 Balance 0 / 0 150 / 150 Weight 79.469 kg 78.16 kg Assessment and Plan *Assessment and plan (1) Acute hyperkalemia: Status: Acute Category: Medical Code(s): E87.5 - Hyperkalemia (2) Anemia: Status: Acute Qualifiers: Anemia type: unspecified type Qualified Code(s): D64.9 - Anemia, unspecified Category: Medical Code(s): D64.9 - Anemia, unspecified (3) Thrombocytopenia: Status: Acute Category: Medical Code(s): D69.6 - Thrombocytopenia, unspecified Plan Lian Bliss is a 79-year-old female who presented after found to be hyperkalemic to 7.3 on outpatient cardiology labs and was admitted for the same. #Paroxysmal A-fib RVR #Hyperkalemia ? Initially presented with potassium 7.3. In the setting of spironolactone, valsartan. Has been somewhat resistant to conventional treatments, but improving. ? Improved to 6.3 this morning, given additional regular insulin with D50 with improvement to 5.0. ? However, during this course patient went into A-fib RVR. Likely exacerbated by hyperkalemia but possibly also from overdiuresis, possible pneumonia. ? Will give 500 mL bolus challenge and follow-up on A-fib RVR response. ? Cardiology consulted, started metoprolol succinate 12.5 mg after HR improved to 90s earlier this afternoon, however back to RVR now. Has been in and out this afternoon. ? Will consider increasing metoprolol to tartrate 25 mg twice daily. Will hold on anticoagulation due to high fall risk. ? Continue Lokelma, Kayexalate, sodium bicarb. Wean as potassium continues to be downtrending. ? Follow-up TFTs. ? Follow-up repeat potassium at 9 PM. #Suspected pneumonia ? CXR shows bibasilar opacities which could be atelectasis, however patient has been feeling weak with cough recently. Will treat empirically. ? Started levofloxacin day 1. ? Follow-up sputum, blood cultures. #History of HFrEF #Moderate aortic stenosis ? Will reduce Bumex to 1 mg daily due to possible overdiuresis, continue Jardiance 10 mg. Continue metoprolol succinate. #Chronic normocytic anemia ? Hemoglobin 8.1, MCV 92. Around baseline. #CKD stage III ? Creatinine 1.8, GFR 27. Around baseline. #Suspected COPD ? Started on Anoro Ellipta. #GERD ? Continue home PPI. #Hypothyroidism ? Continue levothyroxine 25 mcg. Follow-up TFTs. Full code DVT prophylaxis: Lovenox 40 mg
[2025-01-14 19:51] LABS: POC Glucose,Bedside 119 (70-110)
[2025-01-14] MEDS: MIRTAZAPINE 15 MG TABLET PO (20:04)
[2025-01-14] MEDS: PANTOPRAZOLE 40MG TABLET 40 MG PO (20:05)
[2025-01-14] MEDS: 0.9 % SODIUM CHLORIDE 1000ML 500 ML 250 ML IV (20:06)
[2025-01-14] MEDS: levoFLOXacin 750 MG TABLET PO (21:46)
[2025-01-14 22:07] LABS: Potassium 4.8 mmoL/L (3.5-5.1)
[2025-01-14] MEDS: SODIUM CHLORIDE 3% 15ML NEB 3 ML IH (23:20)
[2025-01-15] VITALS: BP 91/56; PULSE 71; RESP 17; TEMP 37.9; O2SAT 96
[2025-01-15 01:33] VITALS: BP 103/54; TEMP 37.8
[2025-01-15 01:57] VITALS: BMI 29.8
--- NOTE | 2025-01-15 03:43 | PC.NURSE ---
Pt AOx4. 3L nasal cannula, potassium has decreased to 4.8. Pt had normal blood glucose of 119 HS. Pt has some wheezing upon auscultation. She is currently resting in bed with her eyes closed, respirations even and unlabored. Bed is low, locked, and call light is in reach.
[2025-01-15 03:59] LABS: Microscopic, Urine URINE MICROSCOPIC (MICROSCOPIC)
[2025-01-15 04:00] VITALS: BP 117/69; PULSE 62; RESP 15; TEMP 36.9; O2SAT 93
[2025-01-15 04:02] LABS: Appearance,Urine CLEAR (Clear); Bilirubin,Urine Negative (Negative); Blood, Urine Negative (Negative); Color,Urine YELLOW (Yellow); Glucose,Urine (UA) 1+ (Negative); Ketones,Urine Negative (Negative); Leukocyte Esterase,Urine Negative (Negative); Nitrate,Urine Negative (Negative); Protein,Urine Negative (Negative); Specific Gravity, Urine 1.015 (1.005-1.030); Urobilinogen,Urine 0.2 EU/dl (0.2)
[2025-01-15 04:06] LABS: Bacteria,Urine Trace /lpf; Squamous Epithelial Cell,Urine Occasional #/hpf (0-5)
[2025-01-15] MEDS: LEVOTHYROXINE 25MCG (0.025MG) TAB 25 MCG PO (06:05)
[2025-01-15 06:12] LABS: POC Glucose,Bedside 97 (70-110)
[2025-01-15 06:28] LABS: Basophils % 0.3 % (0.1-2.0); Eosinophils # 0.1 Kmm3 (0.0-0.4); Eosinophils % 1.6 % (0.1-12.0); Hemoglobin 7.9 g/dL (12.2-16.2); Immature Granulocytes # 0.04 10^3uL; Immature Granulocytes % 0.6 %; Lymphocytes # 0.8 K/mm3 (0.7-4.5); Lymphocytes % 11.9 % (10-50); Mean Corpuscular HGB Conc 29.3 g/dL (31.8-35.4); Mean Corpuscular Hemoglobin 26.7 pg (27.0-31.2); Mean Corpuscular Volume 91.2 fl (81-99); Mean Platelet Volume 13.2 fl (7.4-10.4); Monocytes # 0.6 K/mm3 (0.1-1.0); Monocytes % 8.1 % (1.7-9.3); Neutrophils # 5.4 K/mm3 (1.8-7.8); Neutrophils % 77.5 % (37.0-80.0); Nucleated Red Blood Cells # 0 10^3/uL; Nucleated Red Blood Cells % 0 %; Platelet Count 124 K/mm3 (142-424); Red Blood Count 2.96 M/mm3 (4.20-5.40); Red Cell Distribution Width-SD 53.5 fL
[2025-01-15 06:39] LABS: Chloride 107 mmol/L (98-107)
[2025-01-15 06:40] LABS: Albumin Level 3.1 g/dl (3.5-5.0); Potassium 4.7 mmoL/L (3.5-5.1); Sodium 137 mmol/L (136-145)
[2025-01-15 06:42] LABS: Anion Gap 4.7 mEq/L (5-15); Blood Urea Nitrogen 27 mg/dl (7-17); Carbon Dioxide 30 mmol/L (22.0-30.0); Creatinine Clearance Estimated 34 mL/min (50-200); Estimated Glomerular Filt Rate 31 ml/min (>60); GFR (African American) 38 ML/MIN (>60)
[2025-01-15 06:43] LABS: Alanine Aminotransferase 6 U/L (12-78); Albumin/Globulin Ratio 1.1 (1.1-1.8); Alkaline Phosphatase 73 U/L (38-126); Aspartate Amino Transferase 16 U/L (14-36); Bilirubin,Total 0.3 mg/dl (0.2-1.3); Calcium 8.1 mg/dl (8.4-10.2); Globulin 2.8 g/dL (1.3-3.2); Glucose 96 mg/dl (74-100); Magnesium 1.5 mg/dl (1.6-2.3); Total Protein,Serum 5.9 g/dl (6.3-8.2)
[2025-01-15 08:00] VITALS: BP 152/56; PULSE 90; RESP 18; TEMP 36.9; O2SAT 94
[2025-01-15] MEDS: MAGNESIUM SULFATE IN WATER 2 GM/50 ML PIGGYBACK IV (08:16)
[2025-01-15] MEDS: ENOXAPARIN 40MG/0.4ML SYRINGE 40 MG SUBCUT (08:18)
[2025-01-15] MEDS: SERTRALINE 100MG TABLET 150 MG PO (08:18)
[2025-01-15] MEDS: BUSPIRONE HCL 5 MG TABLET 7.5 MG PO (08:18)
[2025-01-15] MEDS: LORATADINE 10MG TABLET 10 MG PO (08:19)
[2025-01-15] MEDS: ASPIRIN EC 81MG TABLET 81 MG PO (08:19)
[2025-01-15] MEDS: EMPAGLIFLOZIN 10MG TABLET 10 MG PO (08:19)
[2025-01-15] MEDS: METOPROLOL SUCCINATE XL 25MG TABLET 12.5 MG PO ×2 (08:20→10:39)
--- NOTE | 2025-01-15 08:32 | PC.NURSE ---
Roger given only one dose of magnesium iv.
[2025-01-15] MEDS: UMECLIDINIUM/VILANTEROL 62.5/25MCG INHALER 1 PUFF IH (09:08)
[2025-01-15 09:09] VITALS: O2SAT 81
[2025-01-15 09:11] LABS: Adenovirus,PCR Not Detected (NotDetected); Bordetella Pertussis Not Detected (NotDetected); Chlamydophila Pneumoniae, PCR Not Detected (NotDetected); Coronavirus 19, PCR Not Detected (NotDetected); Coronavirus 229E Not Detected (NotDetected); Coronavirus NL63 Not Detected (NotDetected); Coronavirus OC43 Not Detected (NotDetected); Coronovirus HKU1,PCR Not Detected (NotDetected); Human Metapneumovirus Not Detected (NotDetected); Influenza A, PCR Not Detected (NotDetected); Influenza AH1, 2009 Not Detected (NotDetected); Influenza AH1, PCR Not Detected (NotDetected); Influenza AH3,PCR Not Detected (NotDetected); Influenza B, PCR Not Detected (NotDetected); Mycoplasma Pneumoniae, PCR Not Detected (NotDetected); Parainfluenza 1, PCR Not Detected (NotDetected); Parainfluenza 2, PCR Not Detected (NotDetected); Parainfluenza 3, PCR Not Detected (NotDetected); Parainfluenza 4, PCR Not Detected (NotDetected); Respiratory Syncytial Virus Not Detected (NotDetected); Rhinovirus/Enterovirus Not Detected (NotDetected)
--- NOTE | 2025-01-15 10:21 | P.PN_ITS ---
Subjective Subjective Date: 01/15/25 Time: 08:30 Principal diagnosis: Hyperkalemia and A-fib RVR Interval history: Patient sitting up on side of bed this morning asking to go home. She denies chest pain reports shortness of breath feels at baseline. Morning labs reviewed. Patient is in normal sinus rhythm this morning. Exam Data for Last 24 hours Vital signs and Labs for Last 24 Hours: Temp Pulse Resp BP Pulse Ox O2 Del Method O2 Flow Rate 98.4 F 90 18 152/56 H 81 L Nasal Cannula 2 01/15/25 08:00 01/15/25 08:00 01/15/25 08:00 01/15/25 08:00 01/15/25 09:09 01/15/25 09:54 01/15/25 09:54 Laboratory Results - last 24 hr 01/14/25 03:56: Urine Color Yellow, Urine Appearance Clear, Urine pH 6.0, Ur Specific [place] 1.015, Urine Protein Negative, Urine Glucose (UA) 1+, Urine Ketones Negative, Urine Blood Negative, Urine Nitrate Negative, Urine Bilirubin Negative, Urine Urobilinogen 0.2, Ur Leukocyte Esterase Negative, Ur Squamous Epith Cells Occasional, Urine Bacteria Trace 01/14/25 10:41: POC Glucose 99 01/14/25 12:29: POC Glucose 111 H 01/14/25 13:02: POC Glucose 168 H 01/14/25 14:22: POC Glucose 70 01/14/25 14:38: Sodium 141, Potassium 5.0 D, Chloride 106, Carbon Dioxide 28, Anion Gap 12.0, BUN 32 H, Creatinine 1.80 H, Estimated Creat Clear 31, Estimated GFR 27 L, Est GFR ( Amer) 33 L, Glucose 39 L* D, Calcium 8.2 L 01/14/25 15:35: POC Glucose 51 L 01/14/25 16:28: POC Glucose 150 H 01/14/25 18:14: POC Glucose 117 H 01/14/25 19:44: POC Glucose 119 H 01/14/25 21:35: Potassium 4.8 01/15/25 06:04: POC Glucose 97 01/15/25 06:06: WBC 7.0, RBC 2.96 L, Hgb 7.9 L, Hct 27.0 L, MCV 91.2, MCH 26.7 L , MCHC 29.3 L, RDW 16.0, Plt Count 124 L, MPV 13.2 H, Neut % (Auto) 77.5, Lymph % (Auto) 11.9, [place] % (Auto) 8.1, Eos % (Auto) 1.6, Baso % (Auto) 0.3, Neut # (Auto) 5.4, Lymph # (Auto) 0.8, [place] # (Auto) 0.6, Eos # (Auto) 0.1, Baso # (Auto) 0.0, Sodium 137, Potassium 4.7, Chloride 107, Carbon Dioxide 30, Anion Gap 4.7 L, BUN 27 H, Creatinine 1.60 H, Estimated Creat Clear 34, Estimated GFR 31 L, Est GFR ( Amer) 38 L, Glucose 96 D, Calcium 8.1 L, Magnesium 1.5 L D, Total Bilirubin 0.3, AST 16, ALT 6 L, Alkaline Phosphatase 73, Total Protein 5.9 L, Albumin 3.1 L, Globulin 2.8, Albumin/Globulin Ratio 1.1 I & O for Last 24 hours: Intake & Output 01/12/25 01/13/25 01/14/25 01/15/25 23:59 23:59 23:59 23:59 Intake Total 700 / 700 50 / 50 Output Total 0 / 0 550 / 800 500 / 500 Balance 0 / 0 150 / -100 -450 / -450 Weight 175 lb 3.2 oz 172 lb 5 oz 168 lb 8 oz Constitutional Constitutional: no acute distress *Routine Respiratory Exam Respiratory: Present CTA bilaterally, wheezes and symmetric chest movement *Routine Cardiovascular Exam Cardiovascular: Present RRR, Normal S1 and Normal S2 *Routine Abdominal Exam Abdominal: Present soft and normoactive bowel sounds; Absent tenderness *Routine Extremities Exam Extremities: Present full ROM and normal capillary refill; Absent edema *Routine Skin Exam Skin: Present intact, dry and warm Detailed Neck Exam: Thyroids Thyroid: Absent bruit Progress Note: A&P Assessment and plan (1) Acute hyperkalemia: Status: Acute (2) Anemia: Status: Acute (3) Thrombocytopenia: Status: Acute Assessment and Plan Assessment and Plan for All Diagnoses:: Acute hyperkalemia Aldactone and valsartan on hold Defer to primary care service Potassium was 7.3 and has trended down to 4.7 Restart irbesartan 75 mg p.o. daily Afib RVR, chadsvasc score 6 History of PAF Previously not on OAC Increase Toprol to 25 mg p.o. daily Start Eliquis 5 mg p.o. twice daily-patient family states that she usually is in a wheelchair and is not up walking around very much. It is documented that patient previously was not on anticoagulation due to fall risk, however, the risk of stroke is high. Cardiology recommends patient start OAC. History of HFrEF Moderate aortic stenosis Echo 12/2024 shows an EF of 45 to 50%, grade 2 diastolic dysfunction, mild RV dilation with mild RV function and moderate aortic stenosis Small pleural effusions noted on chest x-ray Patient was on guideline directed medical therapy and became hyperkalemic. Valsartan and Aldactone on hold Continue beta-cesilia Continue Bumex 2 mg p.o. daily Continue Jardiance 10 mg p.o. daily History of chronic anemia Thrombocytopenia Stable, no active bleeding noted History of chronic anemia noted Recommend outpatient evaluation with hematology Defer to primary care Acute on chronic kidney injury Creatinine 2 on admission down to 1.6 today Monitor CV summary 01/15/2025: Increase Toprol to 25 mg p.o. daily for A-fib rate control and add back irbesartan 75 mg p.o. daily for blood pressure control. Cardiology does recommend to start Eliquis despite concern for falls. Patient is at high risk for stroke.
--- NOTE | 2025-01-15 10:49 | ECG_ITS ---
APPROVED REPORT Exam: Resting ECG HR:66 bpm ECG Measurements Heart Rate 66 AXES IL 136 P 79 QRSd 85 QRS -27 QT 368 T 24 QTc 382 Conclusion SINUS RHYTHM BORDERLINE LEFT AXIS DEVIATION [QRS AXIS < -20] LEFT VENTRICULAR HYPERTROPHY AND ST-T CHANGE [VOLTAGE CRITERIA PLUS ST/T ABNORMALITY] ABNORMAL ECG UNCONFIRMED REPORT Electronically signed by : Lance Santillan MD 01/18/2025 08:44:48
[2025-01-15] MEDS: APIXABAN 5MG TABLET 5 MG PO (11:58)
[2025-01-15 12:00] VITALS: BP 118/51; PULSE 75; RESP 18; TEMP 37.1; O2SAT 95
--- NOTE | 2025-01-15 13:43 | EXP.DC.SUM ---
General Admission date:: 01/13/25 HPI HPI HPI: This is a 79-year-old female who has a past medical history significant for anemia, angina, heart failure reduced ejection fracture, hypertension, chronic wounds of lower extremities, migraine headache, heart murmur, GERD, depression, coronary artery disease, cancer, arrhythmia, anxiety, renal mass, COPD with as needed home O2 at 2 L, hyperlipidemia, hypertension, nephrolithiasis, diabetes, anxiety, osteoarthritis, narcolepsy, and hypothyroidism who presents due to abnormal lab values. Patient recently underwent left heart cath by Dr. Barbosa which revealed minimal coronary artery disease and borderline elevated left ventricular end-diastolic pressures. She was called by her primary cardiac interventionalists and was informed that her potassium was supratherapeutic. She presented to the emergency room for evaluation where she was found to have a potassium of 7. She was given Kevin cocktail and hospital medicine was contacted for further management. During my evaluation of the patient, patient states she has had no symptoms. She does mention that she was recently prescribed spironolactone and has taken it for the last 7 days. Patient has been prescribed valsartan for the last 3 months. She does mentions that she has been followed by wound care therapy and home health for bilateral lower extremity wounds. She states she has had a ultrasound performed that did not reveal any limited lower extremity flow. She does endorse having some wheezing and lightheadedness that is no more than normal. Currently, she denies any chest pain, dizziness, fever, chills, rigors, nausea, vomiting, or diarrhea. Review of chest x-ray shows small pleural effusion bilaterally. Additional pertinent labs obtained include a red blood cell count of 3.24, hemoglobin 8.9, hematocrit of 29.2, platelet count of 140, potassium of 7.1, chloride of 110, BUN of 43, creatinine of 2, GFR 24, and uric acid 9.6. EKG reveals a sinus arrhythmia, QTc of 496, left axis shift Hospital Course Hospital Course Hospital Course: Lian Bliss is a 79-year-old female who presented after found to be hyperkalemic to 7.3 on outpatient cardiology labs and was admitted for the same. #Paroxysmal A-fib RVR #Hyperkalemia ? Initially presented with potassium 7.3. In the setting of spironolactone, valsartan. Improved to 4.7 with insulin, Lokelma, Kayexalate, sodium bicarb, Bumex. ? However, during this course patient went into A-fib RVR. Likely exacerbated by hyperkalemia but possibly also from overdiuresis, possible pneumonia. ? RVR improved with fluid bolus, correcting hyperkalemia, treating pneumonia, and started metoprolol succinate 25 mg. ? Cardiology consulted, discharged with metoprolol succinate 25 mg daily and Eliquis 5 mg twice daily. Placed event monitor. Will follow-up with cardiology within 2 week. #Suspected pneumonia ? CXR shows bibasilar with fever of 100.3. Improved after starting levofloxacin. ? Discharged with levofloxacin 750 mg for 4 more days. ? Will follow-up on sputum culture. #History of HFrEF #Moderate aortic stenosis #Hypertension ? Continue Bumex 2 mg daily, Jardiance 10 mg. Continue metoprolol succinate. ? Will continue to hold valsartan in the setting of recent hyperkalemia, BP also stable at 118/51. #Chronic normocytic anemia ? Hemoglobin 7.9, MCV 92. Around baseline. #CKD stage III ? Creatinine 1.6, GFR 31. Around baseline. #Suspected COPD ? Started on Anoro Ellipta. #GERD ? Continue home PPI. #Hypothyroidism ? Continue levothyroxine 25 mcg. Total time spent on discharge: 32 minutes on chart review, counseling, documentation, and direct care with patient. Exam Data for Last 24 hours Vital signs and Labs for Last 24 Hours: Temp Pulse Resp BP Pulse Ox O2 Del Method O2 Flow Rate 98.8 F 75 18 118/51 L 95 Nasal Cannula 2 01/15/25 12:00 01/15/25 12:00 01/15/25 12:00 01/15/25 12:00 01/15/25 12:00 01/15/25 12:21 01/15/25 12:21 Laboratory Results - last 24 hr 01/14/25 03:56: Urine Color Yellow, Urine Appearance Clear, Urine pH 6.0, Ur Specific [place] 1.015, Urine Protein Negative, Urine Glucose (UA) 1+, Urine Ketones Negative, Urine Blood Negative, Urine Nitrate Negative, Urine Bilirubin Negative, Urine Urobilinogen 0.2, Ur Leukocyte Esterase Negative, Ur Squamous Epith Cells Occasional, Urine Bacteria Trace 01/14/25 14:22: POC Glucose 70 01/14/25 14:38: Sodium 141, Potassium 5.0 D, Chloride 106, Carbon Dioxide 28, Anion Gap 12.0, BUN 32 H, Creatinine 1.80 H, Estimated Creat Clear 31, Estimated GFR 27 L, Est GFR ( Amer) 33 L, Glucose 39 L* D, Calcium 8.2 L 01/14/25 15:35: POC Glucose 51 L 01/14/25 16:28: POC Glucose 150 H 01/14/25 18:14: POC Glucose 117 H 01/14/25 19:44: POC Glucose 119 H 01/14/25 21:35: Potassium 4.8 01/15/25 06:04: POC Glucose 97 01/15/25 06:06: WBC 7.0, RBC 2.96 L, Hgb 7.9 L, Hct 27.0 L, MCV 91.2, MCH 26.7 L, MCHC 29.3 L, RDW 16.0, Plt Count 124 L, MPV 13.2 H, Neut % (Auto) 77.5, Lymph % (Auto) 11.9, [place] % (Auto) 8.1, Eos % (Auto) 1.6, Baso % (Auto) 0.3, Neut # (Auto) 5.4, Lymph # (Auto) 0.8, [place] # (Auto) 0.6, Eos # (Auto) 0.1, Baso # (Auto) 0.0, Sodium 137, Potassium 4.7, Chloride 107, Carbon Dioxide 30, Anion Gap 4.7 L, BUN 27 H, Creatinine 1.60 H, Estimated Creat Clear 34, Estimated GFR 31 L, Est GFR ( Amer) 38 L, Glucose 96 D, Calcium 8.1 L, Magnesium 1.5 L D, Total Bilirubin 0.3, AST 16, ALT 6 L, Alkaline Phosphatase 73, Total Protein 5.9 L, Albumin 3.1 L, Globulin 2.8, Albumin/Globulin Ratio 1.1, Procalcitonin 0.120 01/15/25 09:07: Chlamy pneumoniae PCR Not detected, Adenovirus (PCR) Not detected, B. pertussis DNA (PCR) Not detected, Coronavirus OC43 (PCR) Not detected, Coronavirus HKU1 (PCR) Not detected, Coronavirus 229E (PCR) Not detected, SARS-CoV-2 (PCR) Not detected, Coronavirus NL63 (PCR) Not detected, Human Metapneumovir PCR Not detected, Influenza A (H1) PCR Not detected, Influ A (H1N1/09) PCR Not detected, Influenza A (H3) PCR Not detected, Influenza Type A (PCR) Not detected, Influenza Type B (PCR) Not detected, M. pneumoniae (PCR) Not detected, Parainfluenza 1 (PCR) Not detected, Parainfluenza 2 (PCR) Not detected, Parainfluenza 3 (PCR) Not detected, Parainfluenza 4 (PCR) Not detected, RSV (PCR) Not detected, Entero/Rhino (PCR) Not detected I & O for Last 24 hours: Intake & Output 01/12/25 01/13/25 01/14/25 01/15/25 23:59 23:59 23:59 23:59 Intake Total 700 / 700 550 / 550 Output Total 0 / 0 550 / 800 500 / 500 Balance 0 / 0 150 / -100 50 / 50 Weight 79.469 kg 78.16 kg 76.43 kg Constitutional Constitutional: no acute distress *Routine Respiratory Exam Respiratory: Present CTA bilaterally, wheezes and symmetric chest movement *Routine Cardiovascular Exam Cardiovascular: Present RRR, Normal S1 and Normal S2 *Routine Abdominal Exam Abdominal: Present soft and normoactive bowel sounds; Absent tenderness *Routine Extremities Exam Extremities: Present full ROM and normal capillary refill; Absent edema *Routine Skin Exam Skin: Present intact, dry and warm Detailed Neck Exam: Thyroids Thyroid: Absent bruit Results Data Completed and Pending Labs on day of discharge: Labs from last 24 hours 01/15/25 01/15/25 01/15/25 09:07 06:06 06:04 WBC 7.0 RBC 2.96 L Hgb 7.9 L Hct 27.0 L MCV 91.2 MCH 26.7 L MCHC 29.3 L RDW 16.0 Plt Count 124 L MPV 13.2 H Neut % (Auto) 77.5 Lymph % (Auto) 11.9 [place] % (Auto) 8.1 Eos % (Auto) 1.6 Baso % (Auto) 0.3 Neut # (Auto) 5.4 Lymph # (Auto) 0.8 [place] # (Auto) 0.6 Eos # (Auto) 0.1 Baso # (Auto) 0.0 Sodium 137 Potassium 4.7 Chloride 107 Carbon Dioxide 30 Anion Gap 4.7 L BUN 27 H Creatinine 1.60 H Estimated Creat Clear 34 Estimated GFR 31 L Est GFR ( Amer) 38 L Glucose 96 D POC Glucose 97 Calcium 8.1 L Magnesium 1.5 L D Total Bilirubin 0.3 AST 16 ALT 6 L Alkaline Phosphatase 73 Total Protein 5.9 L Albumin 3.1 L Globulin 2.8 Albumin/Globulin Ratio 1.1 Procalcitonin 0.120 Urine Color Urine Appearance Urine pH Ur Specific [place] Urine Protein Urine Glucose (UA) Urine Ketones Urine Blood Urine Nitrate Urine Bilirubin Urine Urobilinogen Ur Leukocyte Esterase Ur Squamous Epith Cells Urine Bacteria Chlamy pneumoniae PCR Not detected Adenovirus (PCR) Not detected B. pertussis DNA (PCR) Not detected Coronavirus OC43 (PCR) Not detected Coronavirus HKU1 (PCR) Not detected Coronavirus 229E (PCR) Not detected SARS-CoV-2 (PCR) Not detected Coronavirus NL63 (PCR) Not detected Human Metapneumovir PCR Not detected Influenza A (H1) PCR Not detected Influ A (H1N1/09) PCR Not detected Influenza A (H3) PCR Not detected Influenza Type A (PCR) Not detected Influenza Type B (PCR) Not detected M. pneumoniae (PCR) Not detected Parainfluenza 1 (PCR) Not detected Parainfluenza 2 (PCR) Not detected Parainfluenza 3 (PCR) Not detected Parainfluenza 4 (PCR) Not detected RSV (PCR) Not detected Entero/Rhino (PCR) Not detected 01/14/25 01/14/25 01/14/25 21:35 19:44 18:14 WBC RBC Hgb Hct MCV MCH MCHC RDW Plt Count MPV Neut % (Auto) Lymph % (Auto) [place] % (Auto) Eos % (Auto) Baso % (Auto) Neut # (Auto) Lymph # (Auto) [place] # (Auto) Eos # (Auto) Baso # (Auto) Sodium Potassium 4.8 Chloride Carbon Dioxide Anion Gap BUN Creatinine Estimated Creat Clear Estimated GFR Est GFR ( Amer) Glucose POC Glucose 119 H 117 H Calcium Magnesium Total Bilirubin AST ALT Alkaline Phosphatase Total Protein Albumin Globulin Albumin/Globulin Ratio Procalcitonin Urine Color Urine Appearance Urine pH Ur Specific [place] Urine Protein Urine Glucose (UA) Urine Ketones Urine Blood Urine Nitrate Urine Bilirubin Urine Urobilinogen Ur Leukocyte Esterase Ur Squamous Epith Cells Urine Bacteria Chlamy pneumoniae PCR Adenovirus (PCR) B. pertussis DNA (PCR) Coronavirus OC43 (PCR) Coronavirus HKU1 (PCR) Coronavirus 229E (PCR) SARS-CoV-2 (PCR) Coronavirus NL63 (PCR) Human Metapneumovir PCR Influenza A (H1) PCR Influ A () PCR Influenza A (H3) PCR Influenza Type A (PCR) Influenza Type B (PCR) M. pneumoniae (PCR) Parainfluenza 1 (PCR) Parainfluenza 2 (PCR) Parainfluenza 3 (PCR) Parainfluenza 4 (PCR) RSV (PCR) Entero/Rhino (PCR) 01/14/25 01/14/25 01/14/25 16:28 15:35 14:38 WBC RBC Hgb Hct MCV MCH MCHC RDW Plt Count MPV Neut % (Auto) Lymph % (Auto) [place] % (Auto) Eos % (Auto) Baso % (Auto) Neut # (Auto) Lymph # (Auto) [place] # (Auto) Eos # (Auto) Baso # (Auto) Sodium 141 Potassium 5.0 D Chloride 106 Carbon Dioxide 28 Anion Gap 12.0 BUN 32 H Creatinine 1.80 H Estimated Creat Clear 31 Estimated GFR 27 L Est GFR ( Amer) 33 L Glucose 39 L* D POC Glucose 150 H 51 L Calcium 8.2 L Magnesium Total Bilirubin AST ALT Alkaline Phosphatase Total Protein Albumin Globulin Albumin/Globulin Ratio Procalcitonin Urine Color Urine Appearance Urine pH Ur Specific [place] Urine Protein Urine Glucose (UA) Urine Ketones Urine Blood Urine Nitrate Urine Bilirubin Urine Urobilinogen Ur Leukocyte Esterase Ur Squamous Epith Cells Urine Bacteria Chlamy pneumoniae PCR Adenovirus (PCR) B. pertussis DNA (PCR) Coronavirus OC43 (PCR) Coronavirus HKU1 (PCR) Coronavirus 229E (PCR) SARS-CoV-2 (PCR) Coronavirus NL63 (PCR) Human Metapneumovir PCR Influenza A (H1) PCR Influ A () PCR Influenza A (H3) PCR Influenza Type A (PCR) Influenza Type B (PCR) M. pneumoniae (PCR) Parainfluenza 1 (PCR) Parainfluenza 2 (PCR) Parainfluenza 3 (PCR) Parainfluenza 4 (PCR) RSV (PCR) Entero/Rhino (PCR) 01/14/25 01/14/25 14:22 03:56 WBC RBC Hgb Hct MCV MCH MCHC RDW Plt Count MPV Neut % (Auto) Lymph % (Auto) [place] % (Auto) Eos % (Auto) Baso % (Auto) Neut # (Auto) Lymph # (Auto) [place] # (Auto) Eos # (Auto) Baso # (Auto) Sodium Potassium Chloride Carbon Dioxide Anion Gap BUN Creatinine Estimated Creat Clear Estimated GFR Est GFR ( Amer) Glucose POC Glucose 70 Calcium Magnesium Total Bilirubin AST ALT Alkaline Phosphatase Total Protein Albumin Globulin Albumin/Globulin Ratio Procalcitonin Urine Color Yellow Urine Appearance Clear Urine pH 6.0 Ur Specific [place] 1.015 Urine Protein Negative Urine Glucose (UA) 1+ Urine Ketones Negative Urine Blood Negative Urine Nitrate Negative Urine Bilirubin Negative Urine Urobilinogen 0.2 Ur Leukocyte Esterase Negative Ur Squamous Epith Cells Occasional Urine Bacteria Trace Chlamy pneumoniae PCR Adenovirus (PCR) B. pertussis DNA (PCR) Coronavirus OC43 (PCR) Coronavirus HKU1 (PCR) Coronavirus 229E (PCR) SARS-CoV-2 (PCR) Coronavirus NL63 (PCR) Human Metapneumovir PCR Influenza A (H1) PCR Influ A (H1N1/09) PCR Influenza A (H3) PCR Influenza Type A (PCR) Influenza Type B (PCR) M. pneumoniae (PCR) Parainfluenza 1 (PCR) Parainfluenza 2 (PCR) Parainfluenza 3 (PCR) Parainfluenza 4 (PCR) RSV (PCR) Entero/Rhino (PCR) DS: Diagnosis Discharge Diagnosis (1) Acute hyperkalemia: Status: Acute Code(s): E87.5 - Hyperkalemia (2) Anemia: Status: Acute Code(s): D64.9 - Anemia, unspecified Qualifiers: Anemia type: unspecified type Qualified Code(s): D64.9 - Anemia, unspecified (3) Thrombocytopenia: Status: Acute Code(s): D69.6 - Thrombocytopenia, unspecified Meds Home Medications and Allergies Home Medications ?Medication ?Instructions ?Recorded ?Confirmed ?Type famotidine 20 mg tablet 20 mg PO BID 02/18/22 01/13/25 History mirtazapine 15 mg tablet 15 mg PO HS 02/18/22 01/13/25 History pantoprazole 40 mg tablet,delayed 40 mg PO HS 02/18/22 01/13/25 History release sertraline 100 mg tablet 150 mg PO DAILY 02/18/22 01/13/25 History buspirone 7.5 mg tablet 7.5 mg PO BID 06/06/22 01/13/25 History meloxicam 7.5 mg tablet 7.5 mg PO DAILYP PRN Mild Pain 06/06/22 01/14/25 History (Scale Score 1-4) levothyroxine 25 mcg tablet 25 mcg PO DAILY 07/03/24 01/13/25 History (Synthroid) cetirizine 10 mg tablet 10 mg PO DAILY 12/02/24 01/13/25 History vibegron 75 mg tablet (Gemtesa) 75 mg PO DAILY 12/02/24 01/13/25 History aspirin 81 mg tablet,delayed 81 mg PO DAILY #30 tabs 12/24/24 01/13/25 Rx release (Adult Low Dose Aspirin) empagliflozin 10 mg tablet 10 mg PO DAILY #30 tabs 01/13/25 01/13/25 Rx (Jardiance) atorvastatin 20 mg tablet 20 mg PO DAILY 01/14/25 01/14/25 History apixaban 5 mg tablet (Eliquis) 5 mg PO BID 30 days #60 tabs 01/15/25 Rx bumetanide 1 mg tablet 2 mg (2 x 1 mg) PO DAILY #180 tabs 01/15/25 01/13/25 Rx levofloxacin 750 mg tablet 750 mg PO Q48H 4 days #2 tabs 01/15/25 Rx metoprolol succinate 25 mg 25 mg PO DAILY 30 days #30 tabs 01/15/25 Rx tablet,extended release 24 hr umeclidinium 62.5 mcg-vilanterol 1 inh inhalation DAILY 30 days #60 01/15/25 Rx 25 mcg/actuation powdr for ea inhalation (Anoro Ellipta) New Prescriptions to Start Prescriptions: apixaban [Eliquis] Gaudencio Duran levofloxacin Gaudencio Duran metoprolol succinate Gaudencio Duran umeclidinium-vilanterol [Anoro Ellipta] Gaudencio Duran Allergies Allergy/AdvReac Type Severity Reaction Status Date / Time pseudoephedrine Allergy Severe Difficulty Verified 01/13/25 10:12 Breathing azithromycin Allergy Unknown Unknown Verified 01/13/25 10:12 allergy reaction Cephalosporins Allergy Unknown Gastrointestinal Verified 01/13/25 10:12 Upset chocolate flavor Allergy Unknown Unknown Verified 01/13/25 10:12 allergy reaction clarithromycin Allergy Unknown Unknown Verified 01/13/25 10:12 allergy reaction erythromycin base Allergy Unknown Rash Verified 01/13/25 10:12 guaifenesin Allergy Unknown Unknown Verified 01/13/25 10:12 allergy reaction montelukast Allergy Unknown Numbness Verified 01/13/25 10:12 nabumetone (From Relafen) Allergy Unknown Rash Verified 01/13/25 10:12 nitrofurantoin Allergy Unknown Unknown Verified 01/13/25 10:12 allergy reaction NSAIDS (Non-Steroidal Allergy Unknown Unknown Verified 01/13/25 10:12 Anti-Inflamma allergy reaction Penicillins Allergy Unknown Unknown Verified 01/13/25 10:12 allergy reaction prednisone Allergy Unknown Unknown Verified 01/13/25 10:12 allergy reaction Sulfa (Sulfonamide Allergy Unknown Unknown Verified 01/13/25 10:12 Antibiotics) allergy reaction cefdinir Allergy rash, Verified 01/13/25 10:12 itching spironolactone AdvReac Severe Severe Verified 01/15/25 18:28 hyperkalemia clindamycin AdvReac Unknown Gastrointestinal Verified 01/13/25 10:12 Upset codeine AdvReac Unknown Gastrointestinal Verified 01/13/25 10:12 Upset doxycycline AdvReac Unknown MAKES THE Verified 01/13/25 10:12 BACKS OF EYES HURT fexofenadine (From Sudha) AdvReac Unknown INFLAMED Verified 01/13/25 10:12 INSIDE OF NOSE fluticasone (From Advair AdvReac Unknown HURTS IN Verified 01/13/25 10:12 Diskus) THE INSIDE OF NOSE imipramine AdvReac Unknown BLADDER Verified 01/13/25 10:12 PAIN/SLOW DRAINAGE metoclopramide (From Reglan) AdvReac Unknown Gastrointestinal Verified 01/13/25 10:12 Upset mometasone furoate (From AdvReac Unknown Cough Verified 01/13/25 10:12 Nasonex) paroxetine (From Paxil) AdvReac Unknown Agitated Verified 01/13/25 10:12 salmeterol (From Advair AdvReac Unknown HURTS IN Verified 01/13/25 10:12 Diskus) THE INSIDE OF NOSE tramadol AdvReac Unknown Dizziness Verified 01/13/25 10:12 acetaminophen (From Lortab) AdvReac Gastrointestinal Verified 01/13/25 10:12 Upset hydrocodone (From Lortab) AdvReac Gastrointestinal Verified 01/13/25 10:12 Upset Discharge Plan Disposition Patient Disposition: Home Health Service Condition: Fair Discharge Order Discharge Orders: Discharge Order (Routine); Ordered 01/15/25 Ordered By: Gaudencio Duran Follow up Plan Follow up with: Jennifer Arnold APRN [Nurse Practitioner, Cardiology] - 1 week Maria Luz Johnson APRN [Referring, Medical] - 01/22/25 11:00 am Prescriptions/Medication Reconciliation: New levofloxacin 750 mg Tablet 750 mg PO Q48H 4 Days Qty: 2 0RF Eliquis 5 mg Tablet 5 mg PO BID 30 Days Qty: 60 0RF metoprolol succinate 25 mg Tablet Extended Release 24 Hr 25 mg PO DAILY 30 Days Qty: 30 0RF umeclidinium-vilanterol [Anoro Ellipta] 62.5-25 mcg/actuation Blister With Device 1 inh inhalation DAILY 30 Days Qty: 60 0RF Continued meloxicam 7.5 mg tablet 7.5 mg PO DAILYP PRN (Reason: Mild Pain (Scale Score 1-4)) Patient Comments: TAKE ONE TABLET BY MOUTH EVERY DAY --TAKE WITH FOOD-- buspirone 7.5 mg tablet 7.5 mg PO BID Patient Comments: TAKE ONE TABLET BY MOUTH TWICE DAILY cetirizine 10 mg tablet 10 mg PO DAILY Patient Comments: TAKE ONE TABLET BY MOUTH EVERY DAY Gemtesa 75 mg tablet 75 mg PO DAILY Patient Comments: TAKE ONE TABLET BY MOUTH ONCE DAILY FOR 90 DAYS aspirin [Adult Low Dose Aspirin] 81 mg tablet,delayed release (DR/EC) 81 mg PO DAILY Qty: 30 5RF Jardiance 10 mg tablet 10 mg PO DAILY Qty: 30 5RF sertraline 100 MG tablet 150 mg PO DAILY famotidine 20 MG tablet 20 mg PO BID pantoprazole 40 MG tablet,delayed release (DR/EC) 40 mg PO HS mirtazapine 15 MG tablet 15 mg PO HS atorvastatin 20 mg tablet 20 mg PO DAILY bumetanide 1 mg tablet 2 mg PO DAILY Qty: 180 1RF levothyroxine [Synthroid] 25 mcg tablet 25 mcg PO DAILY Discontinued spironolactone [Aldactone] 25 mg tablet 25 mg PO DAILY Qty: 90 1RF valsartan 160 mg tablet 160 mg PO DAILY Problem Reconciliation Problems Reviewed?: Yes Patient Discharge Instructions Patient Instructions: DI for Hyperkalemia, DI for Acute Kidney Injury, Stop Light Pneumonia, Stop Light COPD, Stop Light Heart Failure Print Language: [place]itan Providers Primary Care Provider: Surekha Gordon Admit Provider: Gaudencio Duran Attending Provider: Gaudencio Duran
--- NOTE | 2025-01-15 15:04 | PC.NURSE ---
Pt. refused oxygen to wear off the floor and states she will be home soon.
--- NOTE | 2025-01-19 11:17 | SW/DCPLANNER ---
Phoned patient x2. No answer and left message with name and call back number. Rick IZAGUIRRE [employer] Worker
== END 2025-01-15 15:10 | disposition home health service (06) | DRG 640 ==
LOC: ER 14:11 → 2ND 15:49
PROVIDERS: Nurse Practitioner; Nurse Practitioner Family; Admitting Provider Student in an Organized Health Care Education/Training Program; Emergency Provider Emergency Medicine; PCP Nurse Practitioner Family; Visit Provider Student in an Organized Health Care Education/Training Program
DX: E87.5 Hyperkalemia (principal); J15.211 Pneumonia due to Methicillin susceptible Staphylococcus aureus; I13.0 Hypertensive heart and chronic kidney disease with heart failure and stage 1 through stage 4 chronic kidney disease, or unspecified chronic kidney disease; I50.22 Chronic systolic (congestive) heart failure; J44.0 Chronic obstructive pulmonary disease with (acute) lower respiratory infection; N17.9 Acute kidney failure, unspecified; Z16.11 Resistance to penicillins; Z16.29 Resistance to other single specified antibiotic; I48.0 Paroxysmal atrial fibrillation; N18.30 Chronic kidney disease, stage 3 unspecified; I35.0 Nonrheumatic aortic (valve) stenosis; D63.1 Anemia in chronic kidney disease; J44.9 Chronic obstructive pulmonary disease, unspecified; K21.9 Gastro-esophageal reflux disease without esophagitis; E03.9 Hypothyroidism, unspecified; D69.6 Thrombocytopenia, unspecified; F32.A Depression, unspecified; I25.10 Atherosclerotic heart disease of native coronary artery without angina pectoris; E11.22 Type 2 diabetes mellitus with diabetic chronic kidney disease; F41.9 Anxiety disorder, unspecified; Z99.81 Dependence on supplemental oxygen; Z79.82 Long term (current) use of aspirin; Z79.890 Hormone replacement therapy; Z79.899 Other long term (current) drug therapy; Z88.0 Allergy status to penicillin; Z88.2 Allergy status to sulfonamides; Z88.8 Allergy status to other drugs, medicaments and biological substances; Z88.6 Allergy status to analgesic agent; Z88.1 Allergy status to other antibiotic agents; Z91.02 Food additives allergy status; Z85.9 Personal history of malignant neoplasm, unspecified
CPT/HCPCS: 36415; 71045; 80048; 80053; 81001; 82550; 82803; 82962; 83615; 83690; 83735; 84100; 84132; 84145; 84550; 85025; 85730; 87040; 87070; 87077; 87186; 87205; 87633; 93005; 94640; 94761; 97162; 97530; J1650; J1939; J2270; J2405; J3475; J7030

== ENCOUNTER 2025-02-09 12:32 | Outpatient (CLI) | payer MEDICARE, SELFPAY ==
[2025-02-09 13:16] LABS: Hematocrit 29.7 % (37.0-47.0); Hemoglobin 8.6 g/dL (12.2-16.2); Immature Granulocytes % 0.4 %; Mean Corpuscular HGB Conc 29.0 g/dL (31.8-35.4); Mean Corpuscular Hemoglobin 26.0 pg (27.0-31.2); Mean Corpuscular Volume 89.7 fl (81-99); Nucleated Red Blood Cells % 0 %; Platelet Count 162 K/mm3 (142-424); Red Blood Count 3.31 M/mm3 (4.20-5.40); Red Cell Distribution Width-SD 51.1 fL; Reticulocyte % (Auto) 1.7 % (0.9-3.2); White Blood Count 7.4 K/mm3 (4.8-10.8)
[2025-02-09 13:42] LABS: Albumin Level 4.2 g/dl (3.5-5.0); Chloride 97 mmol/L (98-107); Potassium 4.9 mmoL/L (3.5-5.1); Sodium 138 mmol/L (136-145)
[2025-02-09 13:44] LABS: Blood Urea Nitrogen 55 mg/dl (7-17); Creatinine,Serum 2.10 mg/dl (0.52-1.04); Estimated Glomerular Filt Rate 23 ml/min (>60); GFR (African American) 27 ML/MIN (>60)
[2025-02-09 13:45] LABS: Alanine Aminotransferase 8 U/L (12-78); Albumin/Globulin Ratio 1.5 (1.1-1.8); Alkaline Phosphatase 72 U/L (38-126); Anion Gap 14.9 mEq/L (5-15); Aspartate Amino Transferase 20 U/L (14-36); Bilirubin,Total 0.6 mg/dl (0.2-1.3); Calcium 8.8 mg/dl (8.4-10.2); Carbon Dioxide 31 mmol/L (22.0-30.0); Globulin 2.8 g/dL (1.3-3.2); Glucose 94 mg/dl (74-100); Iron 46 ug/dL (37-170); Total Protein,Serum 7.0 g/dl (6.3-8.2)
[2025-02-09 13:56] LABS: Total Iron Binding Capacity 289 ug/dL (265-497)
[2025-02-09 14:20] LABS: Ferritin 49.7 ng/ml (11.1-264)
[2025-02-09 15:05] LABS: Folate 5.36 ng/mL
[2025-02-09 18:02] LABS: Vitamin B12 337 pg/mL (239-931)
== END 2025-02-09 23:59 | disposition home or self-care (01) ==
LOC: LAB 12:33
PROVIDERS: PCP Nurse Practitioner; Visit Provider Internal Medicine Medical Oncology
DX: D64.9 Anemia, unspecified (principal)
CPT/HCPCS: 36415; 80053; 81596; 82607; 82728; 82746; 83540; 83550; 83615; 85025; 85044; 86880

== ENCOUNTER 2025-04-07 20:14 | Inpatient (IN) | payer MEDICARE, SELFPAY ==
--- OUTSIDE RECORDS SUMMARY | 2025-03-08 20:00 | XMS_ITS | Clinical Summary ---
Author Organization Unknown Care Team Providers Care Farm Management Adviser Name Role Phone STEPHNO SHOE STOCK ASSOCIATE, ALBERTO Unavailable Unavailable JILL PT, MARK Unavailable Unavailable ROSHAN CAMPAIGN ADVISOR, REMI Unavailable Unavailable ROSSI OT, ROXANE Unavailable Unavailable AMINAH MERINO/BEVERLY, ABE Unavailable Un available LEE RN, JANET Unavailable Unavailable Payers Payer Name Policy Type Policy Number Effective Date Expira tion Date [facility] [id number] Problems Condition Name Condition Details Condition Category Status Onset Date Resolution Date Last Treatment Date Treating Clinician Comments VENOUS INSUFFICIENC Y (CHRONIC) (PERIPHERAL) Active 2023-08 00:00: 00 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 Active 09-07 00:00: 00 NON-PRS CHR ULCER OTH PRT L LOW LEG LIMITED TO BRKDWN SKIN Active 08-24 00:00: 00 NON-PRS CHRONIC ULCER OTH PRT R LOW LEG W FAT LAYER EXPOSED Active 2023-08 00:00: 00 LYMPHEDEMA, NOT ELSEWHERE CLASSIFIED Active 2023-08 00:00: 00 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-4/UNSP CHR KDNY Active 2023-08 00:00: 00 ACUTE ON CHRONIC DIASTOLIC (CONGESTIVE) HEART FAILURE Active 2023-08 00:00: 00 TYPE 2 DIABETES MELLITUS W DIABETIC CHRONIC KIDNEY DISEASE Active 2023-08 00:00: 00 CHRONIC KIDNEY DISEASE, STAGE 3 UNSPECIFIED Active 2023-08 00:00: 00 ANEMIA IN CHRONIC KIDNEY DISEASE Active 08-12 00:00: 00 CHRONIC OBSTRUCTIVE PULMONARY DISEASE, UNSPECIFIED Active 02-02 00:00: 00 ACUTE AND CHRONIC RESPIRATORY FAILURE WITH HYPERCAPNIA Active 2023-08 00:00: 00 ACUTE AND CHRONIC RESPIRATORY FAILURE WITH HYPOXIA Active 2023-08 00:00: 00 THROMBOCYTOP ENIA, UNSPECIFIED Active 02-02 00:00: 00 NONRHEUMATIC AORTIC (VALVE) STENOSIS Active 2023-08 00:00: 00 ATHSCL HEART DISEASE OF [place] CORONARY ARTERY W/O ANG PCTRS Active 08-12 00:00: 00 PAROXYSMAL ATRIAL FIBRILLATION Active 08-12 00:00: 00 ANXIETY DISORDER, UNSPECIFIED Active 08-12 00:00: 00 DEPRESSION, UNSPECIFIED Active 08-12 00:00: 00 PRIMARY OSTEOARTHRIT IS, UNSPECIFIED SITE Active 08-12 00:00: 00 GASTRO-ESOPH AGEAL REFLUX DISEASE WITHOUT ESOPHAGITIS Active 08-12 00:00: 00 HYPOTHYROIDI SM, UNSPECIFIED Active 08-12 00:00: 00 DEPENDENCE ON SUPPLEMENTAL OXYGEN Active 2023-08 00:00: 00 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 Active 02-02 00:00: 00 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 DRUGS Active 02-02 00:00: 00 Allergies, Adverse Reactions, Alerts Allergy Name Allergy Type Status Severity Reaction(s) Onset Date Inactive Date Treating Clinician Comments AZITHROMYCIN Propensity to adverse reactions Active 2023-08 16:05: 53 CEFDINIR Propensity to adverse reactions Active 2023-08 16:06: 02 CEPHALOSPORI NS Propensity to adverse reactions Active 2023-08 16:06: 08 CHOCOLATE FLAVOR Propensity to adverse reactions Active 2023-08 16:06: 17 CLARITHROMYC IN Propensity to adverse reactions Active 2023-08 16:06: 25 CLINDAMYCIN Propensity to adverse reactions Active 2023-08 16:06: 39 CODEINE Propensity to adverse reactions Active 2023-08 16:06: 45 DOXYCYCLINE Propensity to adverse reactions Active 2023-08 16:06: 56 ERTHROMYCIN BASE Propensity to adverse reactions Active 2023-08 16:07: 04 FEXOFENADINE Propensity to adverse reactions Active 2023-08 16:07: 11 FLUTICASONE Propensity to adverse reactions Active 2023-08 16:07: 19 GUAIFENESIN Propensity to adverse reactions Active 2023-08 16:07: 31 HYDROCODONE Propensity to adverse reactions Active 2023-08 16:07: 39 IMIPRAMINE Propensity to adverse reactions Active 2023-08 16:08: 06 METOCLOPRAMI DE Propensity to adverse reactions Active 2023-08 16:08: 13 MOMETASONE FUROATE Propensity to adverse reactions Active 2023-08 16:08: 32 MONTELUKAST Propensity to adverse reactions Active 2023-08 16:08: 39 NABUMETONE Propensity to adverse reactions Active 2023-08 16:08: 45 NSAIDS Propensity to adverse reactions Active 2023-08 16:08: 53 NITROFURANTO IN Propensity to adverse reactions Active 2023-08 16:08: 59 PAROXETINE Propensity to adverse reactions Active 2023-08 16:09: 06 PENICILLIN.. ...... Propensity to adverse reactions Active 2023-08 16:09: 14 PREDNISONE Propensity to adverse reactions Active 2023-08 16:09: 23 PSEUDOEPHEDR INE Propensity to adverse reactions Active 2023-08 16:09: 32 SALMETEROL Propensity to adverse reactions Active 2023-08 16:09: 45 SULFA DRUGS... Propensity to adverse reactions Active 2023-08 16:09: 55 TRAMADOL Propensity to adverse reactions Active 2023-08 16:10: 01 Medications Ordered Medication Name Filled Medication Name Start Date Stop Date Current Medication? Ordering Clinician Indication Dosage Frequency Signature (SIG) Comments Components vancomycin 1,000 mg intravenous injection 10-30 00:00: 00 11-07 23:59 :00 No [id number] INFECTION Per instruc tions DAILY Per instructio ns DAILY (route: intravenou s) Med Classific ation: Anti-Infe ctive Agents sertraline 100 mg tablet 11-14 00:00: 00 07-05 23:59 :00 No [id number] DEPRESSION 1 tablet DAILY 1 tablet DAILY (route: oral) Med Classific ation: Central Nervous System Agents levothyroxi ne 25 mcg tablet 11-14 00:00: 00 07-05 23:59 :00 No [id number] SUPPLEMENTA L 1 tablet DAILY 1 tablet DAILY (route: oral) Med Classific ation: Endocrine nadolol 40 mg tablet 11-14 00:00: 00 07-05 23:59 :00 No [id number] BP 1 tablet DAILY 1 tablet DAILY (route: oral) Med Classific ation: Cardiovas cular Therapy Agents diltiazem CD 180 mg capsule,ext ended release 24 hr 11-14 00:00: 00 07-05 23:59 :00 No [id number] BP 1 capsule DAILY 1 capsule DAILY (route: oral) Med Classific ation: Cardiovas cular Therapy Agents pantoprazol e 40 mg tablet,matty yed release 11-14 00:00: 00 07-05 23:59 :00 No [id number] STOMACH 1 tablet DAILY 1 tablet DAILY (route: oral) Med Classific ation: Gastroint estinal Therapy Agents famotidine 20 mg tablet 11-14 00:00: 00 07-05 23:59 :00 No [id number] STOMACH Per instruc tions DAILY Per instructio ns DAILY (route: oral) Med Classific ation: Gastroint estinal Therapy Agents sertraline 50 mg tablet 11-14 00:00: 00 07-05 23:59 :00 No [id number] ANXIETY 1 tablet DAILY 1 tablet DAILY (route: oral) Med Classific ation: Central Nervous System Agents gabapentin 100 mg capsule 11-14 00:00: 00 01-09 23:59 :00 No [id number] NERVE PAIN 1 capsule 2 TIMES DAILY 1 capsule 2 TIMES DAILY (route: oral) Med Classific ation: Central Nervous System Agents buspirone 7.5 mg tablet 11-14 00:00: 00 07-05 23:59 :00 No [id number] ANXIETY 1 tablet DAILY 1 tablet DAILY (route: oral) Med Classific ation: Central Nervous System Agents mirtazapine 15 mg tablet 11-14 00:00: 00 07-05 23:59 :00 No [id number] SLEEP 1 tablet 2 TIMES A WEEK 1 tablet 2 TIMES A WEEK (route: oral) Med Classific ation: Central Nervous System Agents cefdinir 300 mg capsule 01-02 00:00: 00 01-03 23:59 :00 No [id number] for cellulits/ infection to leg 1 capsule 2 TIMES DAILY 1 capsule 2 TIMES DAILY (route: oral) Med Classific ation: Anti-Infe ctive Agents Breo Ellipta 100 mcg-25 mcg/dose powder for inhalation 2021-08 00:00: 00 07-05 23:59 :00 No [id number] LUNGS 1 inhalat ion DAILY 1 inhalation DAILY (route: inhalation ) Med Classific ation: Respirato ry Therapy Agents nystatin 100,000 unit/gram topical powder 2023-08 00:00: 00 Yes [id number] UNDER BREAST AND ABDOMEN 1 unit 4 TIMES DAILY 1 unit 4 TIMES DAILY (route: topical) Med Classific ation: Dermatolo gical oxygen gas for inhalation 2023-08 00:00: 00 Yes [id number] SOA 2 Liter O2 - CONTINUOUS 2 Liter O2 - CONTINUOUS (route: inhalation ) Med Classific ation: Medical Supplies and Durable Medical Equipment (DME) bumetanide 1 mg tablet 2023-08 00:00: 00 Yes [id number] WATER PILL 1 tablet DAILY 1 tablet DAILY (route: oral) Med Classific ation: Cardiovas cular Therapy Agents buspirone 7.5 mg tablet 2020-08 00:00: 00 Yes [id number] MOOD 1 tablet 2 TIMES DAILY 1 tablet 2 TIMES DAILY (route: oral) Med Classific ation: Central Nervous System Agents Gemtesa 75 mg tablet 2020-08 00:00: 00 Yes [id number] URINARY 1 tablet DAILY 1 tablet DAILY (route: oral) Med Classific ation: Genitouri nary Therapy levothyroxi ne 25 mcg tablet 2020-08 00:00: 00 Yes [id number] THYROID 1 tablet DAILY 1 tablet DAILY (route: oral) Med Classific ation: Endocrine meloxicam 7.5 mg tablet 2020-08 00:00: 00 02-02 23:59 :00 No [id number] PAIN 1 tablet DAILY 1 tablet DAILY (route: oral) Med Classific ation: Analgesic , Anti-infl ammatory or Antipyret ic mirtazapine 15 mg tablet 2021-08 00:00: 00 Yes [id number] RLS 1 tablet BEDTIME 1 tablet BEDTIME (route: oral) Med Classific ation: Central Nervous System Agents pantoprazol e 40 mg tablet,matty yed release 2020-08 00:00: 00 Yes [id number] GERD 1 tablet BEDTIME 1 tablet BEDTIME (route: oral) Med Classific ation: Gastroint estinal Therapy Agents Pepcid 20 mg tablet 2021-08 00:00: 00 Yes [id number] GERD 1 tablet 2 TIMES DAILY 1 tablet 2 TIMES DAILY (route: oral) Med Classific ation: Gastroint estinal Therapy Agents sertraline 150 mg capsule 2020-08 00:00: 00 Yes [id number] MOOD 1 capsule DAILY 1 capsule DAILY (route: oral) Med Classific ation: Central Nervous System Agents valsartan 160 mg tablet 2021-08 00:00: 00 02-02 23:59 :00 No [id number] HEART 1 tablet DAILY 1 tablet DAILY (route: oral) Med Classific ation: Cardiovas cular Therapy Agents cyclobenzap rine 10 mg tablet 09-10 00:00: 00 02-02 23:59 :00 No [id number] PAIN 1 tablet 3 TIMES DAILY 1 tablet 3 TIMES DAILY (route: oral) Med Classific ation: Locomotor System Aspirin Childrens 81 mg chewable tablet 02-02 00:00: 00 Yes [id number] HEART 1 tablet DAILY 1 tablet DAILY (route: oral) Med Classific ation: Hematolog ical Agents atorvastati n 20 mg tablet 02-02 00:00: 00 Yes [id number] CHOLESTEROL 1 tablet DAILY 1 tablet DAILY (route: oral) Med Classific ation: Cardiovas cular Therapy Agents cetirizine 10 mg tablet 02-02 00:00: 00 Yes [id number] ALLERGIES 1 tablet BEDTIME 1 tablet BEDTIME (route: oral) Med Classific ation: Respirato ry Therapy Agents Eliquis 5 mg tablet 02-02 00:00: 00 Yes [id number] HEART 1 tablet 2 TIMES DAILY 1 tablet 2 TIMES DAILY (route: oral) Med Classific ation: Hematolog ical Agents Jardiance 10 mg tablet 02-02 00:00: 00 Yes [id number] DIABETES 1 tablet DAILY 1 tablet DAILY (route: oral) Med Classific ation: Endocrine metoprolol succinate ER 25 mg tablet,exte nded release 24 hr 02-02 00:00: 00 Yes [id number] HEART 1 tablet DAILY 1 tablet DAILY (route: oral) Med Classific ation: Cardiovas cular Therapy Agents Vital Signs Vital Name Observation Time Observation Value Commen ts Temperature 2025-03-09 14:17:00.000 98.3 [degF] Temperature 2025-03-04 17:34:00.000 97.2 [degF] Temperature 2025-03-01 10:41:00.000 97.9 [degF] Temperature 2025-02-26 09:33:00.000 97.9 [degF] Temperature 2025-02-22 10:23:00.000 97.8 [degF] Temperature 2025-02-20 11:18:00.000 97.8 [degF] Temperature 2025-02-13 09:20:00.000 97.8 [degF] Temperature 2025-02-11 13:11:00.000 97.8 [degF] Temperature 2025-02-02 10:58:00.000 98.6 [degF] Temperature 2025-01-11 09:27:00.000 97.8 [degF] Height 2025-02-02 10:18:40.000 63 [in_us] Pulse 2025-03-09 14:17:00.000 72 /min Pulse 2025-03-04 17:34:00.000 76 /min Pulse 2025-03-01 10:41:00.000 77 /min Pulse 2025-02-26 09:33:00.000 74 /min Pulse 2025-02-22 10:23:00.000 88 /min Pulse 2025-02-20 11:18:00.000 70 /min Pulse 2025-02-13 09:20:00.000 66 /min Pulse 2025-02-11 13:11:00.000 63 /min Pulse 2025-02-02 10:58:00.000 58 /min Pulse 2025-01-11 09:27:00.000 66 /min O2 Saturation (%) 2025-03-09 14:17:00.000 98 % O2 Saturation (%) 2025-03-04 17:34:00.000 93 % O2 Saturation (%) 2025-03-01 10:41:00.000 95 % O2 Saturation (%) 2025-02-26 09:33:00.000 94 % O2 Saturation (%) 2025-02-22 10:23:00.000 94 % O2 Saturation (%) 2025-02-20 11:18:00.000 91 % O2 Saturation (%) 2025-02-13 09:20:00.000 90 % O2 Saturation (%) 2025-02-11 13:11:00.000 93 % O2 Saturation (%) 2025-02-02 10:58:00.000 93 % O2 Saturation (%) 2025-01-11 09:27:00.000 95 % Respirations 2025-03-09 14:17:00.000 18 /min Respirations 2025-03-04 17:34:00.000 18 /min Respirations 2025-03-01 10:41:00.000 18 /min Respirations 2025-02-26 09:33:00.000 18 /min Respirations 2025-02-22 10:23:00.000 18 /min Respirations 2025-02-20 11:18:00.000 18 /min Respirations 2025-02-13 09:20:00.000 18 /min Respirations 2025-02-11 13:11:00.000 18 /min Respirations 2025-02-02 10:58:00.000 18 /min Respirations 2025-01-11 09:27:00.000 18 /min Weight (lbs) 2025-02-26 09:33:00.000 166.2 [lb_av] Weight (lbs) 2025-01-11 09:28:00.000 180 [lb_av] Systolic Blood Pressure 2025-03-09 14:17:00.000 126 mm [Hg] Systolic Blood Pressure 2025-03-04 17:34:00.000 128 mm [Hg] Systolic Blood Pressure 2025-03-01 10:41:00.000 132 mm [Hg] Systolic Blood Pressure 2025-02-26 09:33:00.000 128 mm [Hg] Systolic Blood Pressure 2025-02-22 10:23:00.000 136 mm [Hg] Systolic Blood Pressure 2025-02-20 11:18:00.000 138 mm [Hg] Systolic Blood Pressure 2025-02-13 09:20:00.000 152 mm [Hg] Systolic Blood Pressure 2025-02-11 13:11:00.000 119 mm [Hg] Systolic Blood Pressure 2025-02-02 10:58:00.000 135 mm [Hg] Systolic Blood Pressure 2025-01-11 09:27:00.000 117 mm [Hg] Diastolic Blood Pressure 2025-03-09 14:17:00.000 88 mm [Hg] Diastolic Blood Pressure 2025-03-04 17:34:00.000 76 mm [Hg] Diastolic Blood Pressure 2025-03-01 10:41:00.000 78 mm [Hg] Diastolic Blood Pressure 2025-02-26 09:33:00.000 72 mm [Hg] Diastolic Blood Pressure 2025-02-22 10:23:00.000 78 mm [Hg] Diastolic Blood Pressure 2025-02-20 11:18:00.000 82 mm [Hg] Diastolic Blood Pressure 2025-02-13 09:20:00.000 74 mm [Hg] Diastolic Blood Pressure 2025-02-11 13:11:00.000 50 mm [Hg] Diastolic Blood Pressure 2025-02-02 10:58:00.000 66 mm [Hg] Diastolic Blood Pressure 2025-01-11 09:27:00.000 65 mm [Hg] Plan of Treatment Planned Activity Planned Date Details Comments Future Scheduled Test RN TO OBSE RVE, ASSESS, EVALUATE, AND DEVELOP AN INDIVIDUALIZED PLAN OF CARE. AGENCY MAY ACCEPT ORDERS FROM CONSULTING PHYSICIANS ALBERTO SZYMANSKI. RN TO OBSERVE AND ASSESS, HEALTH SAFETY INSTRUCTOR/PROCEDURE MANAGER TO OBSERVE FOR RISK FOR FALLS AND INSTRUCT IN FALL PREVENTION, HOME SAFETY, MEDICATION MANAGEMENT, INFECTION PREVENTION, AND NUTRITION MANAGEMENT. RN/HEALTH SAFETY INSTRUCTOR/PROCEDURE MANAGER NURSE MAY PERFORM O2 SATURATION LEVEL ON ADMISSION AND PRN FOR DYSPNEA FOR RN TO ASSESS/HEALTH SAFETY INSTRUCTOR TO OBSERVE PATIENT, WITH NOTIFICATION TO THE PHYSICIAN IF SATURATION IS 90% IN THE ABSENCE OF MORE SPECIFIC PARAMETERS FROM THE PHYSICIAN. AGENCY MAY PERFORM A RESUMPTION OF CARE VISIT FOLLOWING ANY HOSPITAL ADMISSION. RN/HEALTH SAFETY INSTRUCTOR/PROCEDURE MANAGER TO MONITOR CO-MORBID CONDITIONS LISTED ON THE PLAN OF CARE AND ANY NEW CONDITIONS THAT PRESENT THEMSELVES DURING THIS EPISODE TO IDENTIFY CHANGES AND INTERVENE TO MINIMIZE COMPLICATIONS. [code = RN TO OBSERVE, ASSESS, EVALUATE, AND DEVELOP AN INDIVIDUALIZED PLAN OF CARE. AGENCY MAY ACCEPT ORDERS FROM CONSULTING PHYSICIANS ALBERTO SZYMANSKI. RN TO OBSERVE AND ASSESS, HEALTH SAFETY INSTRUCTOR/PROCEDURE MANAGER TO OBSERVE FOR RISK FOR FALLS AND INSTRUCT IN FALL PREVENTION, HOME SAFETY, MEDICATION MANAGEMENT, INFECTION PREVENTION, AND NUTRITION MANAGEMENT. RN/HEALTH SAFETY INSTRUCTOR/PROCEDURE MANAGER NURSE MAY PERFORM O2 SATURATION LEVEL ON ADMISSION AND PRN FOR DYSPNEA FOR RN TO ASSESS/HEALTH SAFETY INSTRUCTOR TO OBSERVE PATIENT, WITH NOTIFICATION TO THE PHYSICIAN IF SATURATION IS 90% IN THE ABSENCE OF MORE SPECIFIC PARAMETERS FROM THE PHYSICIAN. AGENCY MAY PERFORM A RESUMPTION OF CARE VISIT FOLLOWING ANY HOSPITAL ADMISSION. RN/HEALTH SAFETY INSTRUCTOR/PROCEDURE MANAGER TO MONITOR CO-MORBID CONDITIONS LISTED ON THE PLAN OF CARE AND ANY NEW CONDITIONS THAT PRESENT THEMSELVES DURING THIS EPISODE TO IDENTIFY CHANGES AND INTERVENE TO MINIMIZE COMPLICATIONS.] Future Scheduled Test RISK FOR H OSPITALIZATION; RN TO ASSESS/TEACH, PROCEDURE MANAGER/HEALTH SAFETY INSTRUCTOR TO OBSERVE/TEACH PATIENT/CAREGIVER ON RISK FOR HOSPITALIZATION/EMERGENCY ROOM VISITS, TEACH SIGNS AND SYMPTOMS THAT PUT PATIENT AT RISK, WHEN TO NOTIFY NURSE/PHYSICIAN OF COMPLICATIONS/DECLINE, AND WHEN TO CALL 911. [code = RISK FOR HOSPITALIZATION; RN TO ASSESS/TEACH, PROCEDURE MANAGER/HEALTH SAFETY INSTRUCTOR TO OBSERVE/TEACH PATIENT/CAREGIVER ON RISK FOR HOSPITALIZATION/EMERGENCY ROOM VISITS, TEACH SIGNS AND SYMPTOMS THAT PUT PATIENT AT RISK, WHEN TO NOTIFY NURSE/PHYSICIAN OF COMPLICATIONS/DECLINE, AND WHEN TO CALL 911.] Future Scheduled Test CARDIOVASC ULAR SYSTEM; RN TO ASSESS/TEACH, HEALTH SAFETY INSTRUCTOR/PROCEDURE MANAGER TO OBSERVE/TEACH RELATED TO ALTERED CARDIOVASCULAR STATUS TO MINIMIZE COMPLICATIONS AND REDUCE HOSPITALIZATION. [code = CARDIOVASCULAR SYSTEM; RN TO ASSESS/TEACH, HEALTH SAFETY INSTRUCTOR/PROCEDURE MANAGER TO OBSERVE/TEACH RELATED TO ALTERED CARDIOVASCULAR STATUS TO MINIMIZE COMPLICATIONS AND REDUCE HOSPITALIZATION.] Future Scheduled Test HEART FAIL URE; RN TO ASSESS/TEACH, HEALTH SAFETY INSTRUCTOR/PROCEDURE MANAGER TO OBSERVE/TEACH CARDIOPULMONARY SYSTEM TO IDENTIFY SIGNS OF DECOMPENSATION AND INTERVENE TO MINIMIZE THE SEVERITY OF FLUID OVERLOAD. OBSERVE PATIENT ABILITY TO MONITOR AND RECORD DAILY WEIGHTS AND VITAL SIGNS, INCLUDING PULSE AND BLOOD PRESSURE; RECORD PATIENT REPORTED WEIGHT, OR WEIGH PATIENT NEEDED. REPORT INCREASED EDEMA OR WEIGHT GAIN OF >2 LBS IN 1 DAY OR >5 LBS IN 1 WEEK OR 5LBS OR MORE OVER TARGET WEIGHT. MAY MEASURE ABDOMINAL GIRTH IF UNABLE TO WEIGH. SCALES AND BP MONITOR TO BE PROVIDED IF NEEDED. [code = HEART FAILURE; RN TO ASSESS/TEACH, HEALTH SAFETY INSTRUCTOR/PROCEDURE MANAGER TO OBSERVE/TEACH CARDIOPULMONARY SYSTEM TO IDENTIFY SIGNS OF DECOMPENSATION AND INTERVENE TO MINIMIZE THE SEVERITY OF FLUID OVERLOAD. OBSERVE PATIENT ABILITY TO MONITOR AND RECORD DAILY WEIGHTS AND VITAL SIGNS, INCLUDING PULSE AND BLOOD PRESSURE; RECORD PATIENT REPORTED WEIGHT, OR WEIGH PATIENT NEEDED. REPORT INCREASED EDEMA OR WEIGHT GAIN OF >2 LBS IN 1 DAY OR >5 LBS IN 1 WEEK OR 5LBS OR MORE OVER TARGET WEIGHT. MAY MEASURE ABDOMINAL GIRTH IF UNABLE TO WEIGH. SCALES AND BP MONITOR TO BE PROVIDED IF NEEDED.] Future Scheduled Test ARRHYTHMIA MANAGEMENT; RN TO ASSESS AND TEACH, HEALTH SAFETY INSTRUCTOR/PROCEDURE MANAGER TO OBSERVE AND TEACH WARNING SIGNS AND SYMPTOMS TO AVOID HOSPITALIZATION. [code = ARRHYTHMIA MANAGEMENT; RN TO ASSESS AND TEACH, HEALTH SAFETY INSTRUCTOR/PROCEDURE MANAGER TO OBSERVE AND TEACH WARNING SIGNS AND SYMPTOMS TO AVOID HOSPITALIZATION.] Future Scheduled Test RESPIRATOR Y SYSTEM MANAGEMENT; RN TO ASSESS AND TEACH, HEALTH SAFETY INSTRUCTOR/PROCEDURE MANAGER TO OBSERVE AND TEACH RELATED TO ALTERED RESPIRATORY STATUS TO MINIMIZE COMPLICATIONS AND REDUCE HOSPITALIZATION. [code = RESPIRATORY SYSTEM MANAGEMENT; RN TO ASSESS AND TEACH, HEALTH SAFETY INSTRUCTOR/PROCEDURE MANAGER TO OBSERVE AND TEACH RELATED TO ALTERED RESPIRATORY STATUS TO MINIMIZE COMPLICATIONS AND REDUCE HOSPITALIZATION.] Future Scheduled Test COPD MANAG EMENT; RN TO ASSESS AND TEACH, HEALTH SAFETY INSTRUCTOR/PROCEDURE MANAGER TO OBSERVE AND TEACH SIGNS/SYMPTOMS OF COPD EXACERBATION AND PROVIDE EARLY INTERVENTIONS TO MINIMIZE RISK OF HOSPITALIZATION. RN/HEALTH SAFETY INSTRUCTOR/PROCEDURE MANAGER TO INSTRUCT ON SELF-CARE MANAGEMENT INCLUDING BREATHING TECHNIQUES, AIRWAY CLEARANCE, AND PROPER USE OF COPD MEDICATIONS. RN TO ASSESS AND TEACH, HEALTH SAFETY INSTRUCTOR/PROCEDURE MANAGER TO OBSERVE AND TEACH PATIENT/CAREGIVER ABILITY TO MONITOR AND RECORD VITAL SIGNS INCLUDING PULSE OXIMETRY AND BLOOD PRESSURE. PULSE OXIMETER AND BP MONITOR TO BE PROVIDED IF NEEDED [code = COPD MANAGEMENT; RN TO ASSESS AND TEACH, HEALTH SAFETY INSTRUCTOR/PROCEDURE MANAGER TO OBSERVE AND TEACH SIGNS/SYMPTOMS OF COPD EXACERBATION AND PROVIDE EARLY INTERVENTIONS TO MINIMIZE RISK OF HOSPITALIZATION. RN/HEALTH SAFETY INSTRUCTOR/PROCEDURE MANAGER TO INSTRUCT ON SELF-CARE MANAGEMENT INCLUDING BREATHING TECHNIQUES, AIRWAY CLEARANCE, AND PROPER USE OF COPD MEDICATIONS. RN TO ASSESS AND TEACH, HEALTH SAFETY INSTRUCTOR/PROCEDURE MANAGER TO OBSERVE AND TEACH PATIENT/CAREGIVER ABILITY TO MONITOR AND RECORD VITAL SIGNS INCLUDING PULSE OXIMETRY AND BLOOD PRESSURE. PULSE OXIMETER AND BP MONITOR TO BE PROVIDED IF NEEDED ] Future Scheduled Test OXYGEN THE RAPY; RN/HEALTH SAFETY INSTRUCTOR/PROCEDURE MANAGER TO INSTRUCT ON OXYGEN MANAGEMENT INCLUDING: ADMINISTRATION AT 2 L/MIN VIA NC CONTINUOUS/PRN FOR , CARE OF EQUIPMENT AND SAFETY. [code = OXYGEN THERAPY; RN/HEALTH SAFETY INSTRUCTOR/PROCEDURE MANAGER TO INSTRUCT ON OXYGEN MANAGEMENT INCLUDING: ADMINISTRATION AT 2 L/MIN VIA NC CONTINUOUS/PRN FOR , CARE OF EQUIPMENT AND SAFETY.] Future Scheduled Test RN/HEALTH SAFETY INSTRUCTOR/PROCEDURE MANAGER TO PERFORM/TEACH VENOUS STASIS ULCER CARE TO BLE AREA: IRRIGATE/CLEANSE WITH NS APPLY VASELINE GAUZE, MAY APPLY SKIN BARRIER TO PERIWOUND AREA PRN TO PREVENT SKIN MACERATION AND PROTECT PERIWOUND COVER WITH 4X4 GAUZE SECURE WITH KERLIX, EVELIO BANDAGE. CHANGE DRESSING EVERY OTHER DAYS AND PRN FOR DISLODGED AND SOILED DRESSING CAREGIVER TO CHANGE BETWEEN SN VISITS [code = RN/HEALTH SAFETY INSTRUCTOR/PROCEDURE MANAGER TO PERFORM/TEACH VENOUS STASIS ULCER CARE TO BLE AREA: IRRIGATE/CLEANSE WITH NS APPLY VASELINE GAUZE, MAY APPLY SKIN BARRIER TO PERIWOUND AREA PRN TO PREVENT SKIN MACERATION AND PROTECT PERIWOUND COVER WITH 4X4 GAUZE SECURE WITH KERLIX, EVELIO BANDAGE. CHANGE DRESSING EVERY OTHER DAYS AND PRN FOR DISLODGED AND SOILED DRESSING CAREGIVER TO CHANGE BETWEEN SN VISITS ] Future Scheduled Test PAIN MANAG EMENT; RN TO ASSESS AND TEACH, PROCEDURE MANAGER/HEALTH SAFETY INSTRUCTOR TO OBSERVE AND TEACH AND PROVIDE EDUCATION ON PAIN MANAGEMENT TECHNIQUES. [code = PAIN MANAGEMENT; RN TO ASSESS AND TEACH, PROCEDURE MANAGER/HEALTH SAFETY INSTRUCTOR TO OBSERVE AND TEACH AND PROVIDE EDUCATION ON PAIN MANAGEMENT TECHNIQUES.] Future Scheduled Test DIABETES M ANAGEMENT; RN TO ASSESS AND TEACH, PROCEDURE MANAGER/HEALTH SAFETY INSTRUCTOR TO OBSERVE AND TEACH INSTRUCTIONS OF DIABETIC CARE TO INCLUDE: DIET LOW CARB SKIN CARE, SIGNS AND SYMPTOMS OF HYPO/HYPERGLYCEMIA, PROPER ADMINISTRATION OF DIABETIC MEDICATION. RN/PROCEDURE MANAGER/HEALTH SAFETY INSTRUCTOR TO INSTRUCT ON DIABETIC FOOT CARE AND MONITOR FOR SKIN LESIONS ON LOWER EXTREMITIES. BLOOD GLUCOSE TESTING DAILY FREQ. RN TO ASSESS AND TEACH, PROCEDURE MANAGER/HEALTH SAFETY INSTRUCTOR TO OBSERVE AND TEACH PATIENT/CAREGIVER ABILITY TO PERFORM AND RECORD BLOOD GLUCOSE TESTING ORDERED AND TO REPORT ABNORMAL FINDINGS TO PHYSICIAN. RN/PROCEDURE MANAGER/HEALTH SAFETY INSTRUCTOR MAY PERFORM BLOOD GLUCOSE TEST NEEDED. RN/PROCEDURE MANAGER/HEALTH SAFETY INSTRUCTOR TO REPORT TO PHYSICIAN BLOOD GLUCOSE READINGS GREATER THAN 400 OR LESS THAN 60 RN/PROCEDURE MANAGER/HEALTH SAFETY INSTRUCTOR TO INSTRUCT PATIENT ON IMPORTANCE OF HGBA1C MONITORING, KIDNEY FUNCTION TEST, EYE AND FOOT EXAMS. [code = DIABETES MANAGEMENT; RN TO ASSESS AND TEACH, PROCEDURE MANAGER/HEALTH SAFETY INSTRUCTOR TO OBSERVE AND TEACH INSTRUCTIONS OF DIABETIC CARE TO INCLUDE: DIET LOW CARB SKIN CARE, SIGNS AND SYMPTOMS OF HYPO/HYPERGLYCEMIA, PROPER ADMINISTRATION OF DIABETIC MEDICATION. RN/PROCEDURE MANAGER/HEALTH SAFETY INSTRUCTOR TO INSTRUCT ON DIABETIC FOOT CARE AND MONITOR FOR SKIN LESIONS ON LOWER EXTREMITIES. BLOOD GLUCOSE TESTING DAILY FREQ. RN TO ASSESS AND TEACH, PROCEDURE MANAGER/HEALTH SAFETY INSTRUCTOR TO OBSERVE AND TEACH PATIENT/CAREGIVER ABILITY TO PERFORM AND RECORD BLOOD GLUCOSE TESTING ORDERED AND TO REPORT ABNORMAL FINDINGS TO PHYSICIAN. RN/PROCEDURE MANAGER/HEALTH SAFETY INSTRUCTOR MAY PERFORM BLOOD GLUCOSE TEST NEEDED. RN/PROCEDURE MANAGER/HEALTH SAFETY INSTRUCTOR TO REPORT TO PHYSICIAN BLOOD GLUCOSE READINGS GREATER THAN 400 OR LESS THAN 60 RN/PROCEDURE MANAGER/HEALTH SAFETY INSTRUCTOR TO INSTRUCT PATIENT ON IMPORTANCE OF HGBA1C MONITORING, KIDNEY FUNCTION TEST, EYE AND FOOT EXAMS.] Future Scheduled Test FALL REDUC TION MANAGEMENT; RN TO ASSESS AND OBSERVE, HEALTH SAFETY INSTRUCTOR/PROCEDURE MANAGER TO OBSERVE FALL RISK FACTORS AND EDUCATE PATIENT/CAREGIVER ON STRATEGIES TO MINIMIZE THE RISK OF FALLING. [code = FALL REDUCTION MANAGEMENT; RN TO ASSESS AND OBSERVE, HEALTH SAFETY INSTRUCTOR/PROCEDURE MANAGER TO OBSERVE FALL RISK FACTORS AND EDUCATE PATIENT/CAREGIVER ON STRATEGIES TO MINIMIZE THE RISK OF FALLING.] Future Scheduled Test PRN VISITS ; NUMBER OF RN/HEALTH SAFETY INSTRUCTOR/PROCEDURE MANAGER VISITS: 2 RN/HEALTH SAFETY INSTRUCTOR/PROCEDURE MANAGER TO PERFORM: CARDIOPULMONARY ASSESSMENT AND WOUND ASSESSMENT FOR THE FOLLOWING REASONS: WOUND INFECTION, ODOR, REDDNESS [code = PRN VISITS; NUMBER OF RN/HEALTH SAFETY INSTRUCTOR/PROCEDURE MANAGER VISITS: 2 RN/HEALTH SAFETY INSTRUCTOR/PROCEDURE MANAGER TO PERFORM: CARDIOPULMONARY ASSESSMENT AND WOUND ASSESSMENT FOR THE FOLLOWING REASONS: WOUND INFECTION, ODOR, REDDNESS ] Goal 2025-03-09 Patient Goal - BREATH BETTER AND WALK Goal 2024-09-07 Patient Goal - BREATH BETTER AND WALK Goal 2024-11-06 Patient Goal - BREATH BETTER AND WALK Goal 2025-01-05 Patient Goal - BREATH BETTER AND WALK Goal 2025-02-02 Patient Goal - BREATH BETTER AND WALK Goal Provider Goal - A PLAN OF CARE WILL BE ESTABLISHED THAT MEETS THE PATIENTS NEEDS. PATIENT WILL DEMONSTRATE OXYGEN SATURATION WITHIN NORMAL LIMITS OR PATIENTS OPTIMAL LEVEL ESTABLISHED BY THE PHYSICIAN THROUGHOUT CARE. CHANGES TO CO-MORBID CONDITIONS AND ANY NEW CONDITIONS WILL BE IDENTIFIED AND REPORTED TO THE PHYSICIAN. Goal Provider Goal - PATIENT/CAREGIVER WILL VERBALIZE UNDERSTANDING OF SIGNS AND SYMPTOMS THAT PUT THE PATIENT AT RISK FOR HOSPITALIZATION /EMERGENCY ROOM VISITS, WHEN TO NOTIFY NURSE/PHYSICIAN OF COMPLICATIONS/DECLINE AND WHEN TO CALL 911. Goal Provider Goal - PATIENT / CAREGIVER WILL VERBALIZE/DEMONSTRATE UNDERSTANDING OF MEASURES TO MANAGE ALTERED CARDIOVASCULAR STATUS BY WEEK OF 03/07/25 Goal Provider Goal - PATIENT / CAREGIVER WILL VERBALIZE/DEMONSTRATE AN ABILITY TO ADHERE TO SELF-MANAGEMENT OF HF TO MINIMIZE COMPLICATIONS AND AVOID HOSPITALIZATION BY WEEK OF 03/07/25 Goal Provider Goal - PATIENT / CAREGIVER WILL VERBALIZE/DEMONSTRATE AN ABILITY TO ADHERE TO SELF-MANAGEMENT OF HEART ARRHYTHMIA TO MINIMIZE COMPLICATIONS AND AVOID HOSPITALIZATION BY WEEK OF 03/07/25 Goal Provider Goal - PATIENT / CAREGIVER WILL VERBALIZE/DEMONSTRATE UNDERSTANDING OF MEASURES TO MANAGE ALTERED RESPIRATORY STATUS BY WEEK OF 03/07/25 Goal Provider Goal - PATIENT / CAREGIVER WILL VERBALIZE/DEMONSTRATE AN ABILITY TO ADHERE TO SELF-MANAGEMENT OF COPD TO MINIMIZE COMPLICATIONS AND AVOID HOSPITALIZATION BY WEEK 03/07/25 Goal Provider Goal - PATIENT/CAREGIVER WILL VERBALIZE/DEMONSTRATE UNDERSTANDING OF CARE AND MANAGEMENT OF OXYGEN THERAPY BY WEEK OF 03/07/25 Goal Provider Goal - PATIENT / CAREGIVER WILL VERBALIZE UNDERSTANDING OF VENOUS STASIS ULCER INCLUDING BUT NOT LIMITED TO DEFINITION, SIGNS AND SYMPTOMS OF COMPLICATIONS AND PRESCRIBED TREATMENT REGIME BY WEEK OF 03/07/25 Goal Provider Goal - PATIENT / CAREGIVER WILL VERBALIZE / DEMONSTRATE UNDERSTANDING OF PAIN CONTROL MEASURES BY WEEK OF 03/07/25 Goal Provider Goal - PATIENT / CAREGIVER WILL VERBALIZE / DEMONSTRATE AN ABILITY TO ADHERE TO SELF-MANAGEMENT OF DIABETES MANAGEMENT BY WEEK OF 03/07/25 Goal Provider Goal - PATIENT/CAREGIVER WILL VERBALIZE/DEMONSTRATE UNDERSTANDING OF FALL RISK FACTORS AND IMPLEMENT STRATEGIES TO MINIMIZE FALL RISK. PATIENT/CAREGIVER WILL VERBALIZE/DEMONSTRATE AN ABILITY TO ADHERE TO FALL REDUCTION SELF-MANAGEMENT AND LIFE-STYLE CHANGES BY WEEK OF 03/07/25 Goal Provider Goal - Reason for Visit [facility] THE COMM[facility]ITY Encounters Start Date/Time End Date/Time Encounter Type Admission Type Attending [facility] Care Department Encounter ID Discharge Date Discharge Status Discharge Condition Discharge Reason Percent Goals Met 2025-01-10 00:00:00 2025-03-09 00:00:00 Outpatient RECERTIFIC ATION JANET [facility] [id number] 2025-03-09 00:00:00 DISCHARGE TO HOME OR SELF CARE [facility]DEPENDEN T IN THE COMMUNITY HH - NON COMPLIANT WITH PLAN OF TREATMENT 94.12
--- OUTSIDE RECORDS SUMMARY | 2025-03-08 20:00 | XMS_ITS | Clinical Summary ---
Author Organization Unknown Care Team Providers Care Oil Painter Name Role Phone STEPHON GARNETT FEEDER, ALBERTO Unavailable Unavailable JILL PT, MARK Unavailable Unavailable ROSHAN IT TRAINER, REMI Unavailable Unavailable ROSSI OT, ROXANE Unavailable Unavailable AMINAH MERINO/BEVERLY, ABE Unavailable Un available LEE RN, JANET Unavailable Unavailable Payers Payer Name Policy Type Policy Number Effective Date Expira tion Date [facility] [id number] Problems Condition Name Condition Details Condition Category [...] 2023-08 00:00: 00 ATHSCL HEART DISEASE OF [place] CORONARY ARTERY W/O ANG PCTRS Active 08-12 00:00: 00 PAROXYSMAL ATRIAL FIBRILLATION Active 08-12 00:00: 00 ANXIETY DISORDER, UNSPECIFIED Active 08-12 00:00: 00 DEPRESSION, UNSPECIFIED Active 08-12 00:00: 00 PRIMARY OSTEOARTHRIT IS, UNSPECIFIED SITE Active 08-12 00:00: 00 GASTRO-ESOPH AGEAL REFLUX DISEASE WITHOUT ESOPHAGITIS Active 08-12 00:00: 00 HYPOTHYROIDI SM, UNSPECIFIED Active 08-12 00:00: 00 DEPENDENCE ON SUPPLEMENTAL OXYGEN Active 2023-08 00:00: 00 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 Active 02-02 00:00: 00 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 Active [...] 10-30 00:00: 00 11-07 23:59 :00 No [id number] INFECTION Per instruc tions DAILY Per instructio ns DAILY (route: intravenou s) Med Classific ation: Anti-Infe ctive Agents sertraline 100 mg tablet 11-14 00:00: 00 07-05 23:59 :00 No [id number] DEPRESSION 1 tablet DAILY 1 tablet DAILY (route: oral) Med Classific ation: Central Nervous System Agents levothyroxi ne 25 mcg tablet 11-14 00:00: 00 07-05 23:59 :00 No [id number] SUPPLEMENTA L 1 tablet DAILY 1 tablet DAILY (route: oral) Med Classific ation: Endocrine nadolol 40 mg tablet 11-14 00:00: 00 07-05 23:59 :00 No [id number] BP 1 tablet DAILY 1 tablet DAILY (route: oral) Med Classific ation: Cardiovas cular Therapy Agents diltiazem CD 180 mg capsule,ext ended release 24 hr 11-14 00:00: 00 07-05 23:59 :00 No [id number] BP 1 capsule DAILY 1 capsule DAILY (route: oral) Med Classific ation: Cardiovas cular Therapy Agents pantoprazol e 40 mg tablet,matty yed release 11-14 00:00: 00 07-05 23:59 :00 No [id number] STOMACH 1 tablet DAILY 1 tablet DAILY (route: oral) Med Classific ation: Gastroint estinal Therapy Agents famotidine 20 mg tablet 11-14 00:00: 00 07-05 23:59 :00 No [id number] STOMACH Per instruc tions DAILY Per instructio ns DAILY (route: oral) Med Classific ation: Gastroint estinal Therapy Agents sertraline 50 mg tablet 11-14 00:00: 00 07-05 23:59 :00 No [id number] ANXIETY 1 tablet DAILY 1 tablet DAILY (route: oral) Med Classific ation: Central Nervous System Agents gabapentin 100 mg capsule 11-14 00:00: 00 01-09 23:59 :00 No [id number] NERVE PAIN 1 capsule 2 TIMES DAILY 1 capsule 2 TIMES DAILY (route: oral) Med Classific ation: Central Nervous System Agents buspirone 7.5 mg tablet 11-14 00:00: 00 07-05 23:59 :00 No [id number] ANXIETY 1 tablet DAILY 1 tablet DAILY (route: oral) Med Classific ation: Central Nervous System Agents mirtazapine 15 mg tablet 11-14 00:00: 00 07-05 23:59 :00 No [id number] SLEEP 1 tablet 2 TIMES A WEEK 1 tablet 2 TIMES A WEEK (route: oral) Med Classific ation: Central Nervous System Agents cefdinir 300 mg capsule 01-02 00:00: 00 01-03 23:59 :00 No [id number] for cellulits/ infection to leg 1 capsule 2 TIMES DAILY 1 capsule 2 TIMES DAILY (route: oral) Med Classific ation: Anti-Infe ctive Agents Breo Ellipta 100 mcg-25 mcg/dose powder for inhalation 2021-08 00:00: 00 07-05 23:59 :00 No [id number] LUNGS 1 inhalat ion DAILY 1 inhalation DAILY (route: inhalation ) Med Classific ation: Respirato ry Therapy Agents nystatin 100,000 unit/gram topical powder 2023-08 00:00: 00 Yes [id number] UNDER BREAST AND ABDOMEN 1 unit 4 TIMES DAILY 1 unit 4 TIMES DAILY (route: topical) Med Classific ation: Dermatolo gical oxygen gas for inhalation 2023-08 00:00: 00 Yes [id number] SOA 2 Liter O2 - CONTINUOUS 2 Liter O2 - CONTINUOUS (route: inhalation ) Med Classific ation: Medical Supplies and Durable Medical Equipment (DME) bumetanide 1 mg tablet 2023-08 00:00: 00 Yes [id number] WATER PILL 1 tablet DAILY 1 tablet DAILY (route: oral) Med Classific ation: Cardiovas cular Therapy Agents buspirone 7.5 mg tablet 2020-08 00:00: 00 Yes [id number] MOOD 1 tablet 2 TIMES DAILY 1 tablet 2 TIMES DAILY (route: oral) Med Classific ation: Central Nervous System Agents Gemtesa 75 mg tablet 2020-08 00:00: 00 Yes [id number] URINARY 1 tablet DAILY 1 tablet DAILY (route: oral) Med Classific ation: Genitouri nary Therapy levothyroxi ne 25 mcg tablet 2020-08 00:00: 00 Yes [id number] THYROID 1 tablet DAILY 1 tablet DAILY (route: oral) Med Classific ation: Endocrine meloxicam 7.5 mg tablet 2020-08 00:00: 00 02-02 23:59 :00 No [id number] PAIN 1 tablet DAILY 1 tablet DAILY (route: oral) Med Classific ation: Analgesic , Anti-infl ammatory or Antipyret ic mirtazapine 15 mg tablet 2021-08 00:00: 00 Yes [id number] RLS 1 tablet BEDTIME 1 tablet BEDTIME (route: oral) Med Classific ation: Central Nervous System Agents pantoprazol e 40 mg tablet,matty yed release 2020-08 00:00: 00 Yes [id number] GERD 1 tablet BEDTIME 1 tablet BEDTIME (route: oral) Med Classific ation: Gastroint estinal Therapy Agents Pepcid 20 mg tablet 2021-08 00:00: 00 Yes [id number] GERD 1 tablet 2 TIMES DAILY 1 tablet 2 TIMES DAILY (route: oral) Med Classific ation: Gastroint estinal Therapy Agents sertraline 150 mg capsule 2020-08 00:00: 00 Yes [id number] MOOD 1 capsule DAILY 1 capsule DAILY (route: oral) Med Classific ation: Central Nervous System Agents valsartan 160 mg tablet 2021-08 00:00: 00 02-02 23:59 :00 No [id number] HEART 1 tablet DAILY 1 tablet DAILY (route: oral) Med Classific ation: Cardiovas cular Therapy Agents cyclobenzap rine 10 mg tablet 09-10 00:00: 00 02-02 23:59 :00 No [id number] PAIN 1 tablet 3 TIMES DAILY 1 tablet 3 TIMES DAILY (route: oral) Med Classific ation: Locomotor System Aspirin Childrens 81 mg chewable tablet 02-02 00:00: 00 Yes [id number] HEART 1 tablet DAILY 1 tablet DAILY (route: oral) Med Classific ation: Hematolog ical Agents atorvastati n 20 mg tablet 02-02 00:00: 00 Yes [id number] CHOLESTEROL 1 tablet DAILY 1 tablet DAILY (route: oral) Med Classific ation: Cardiovas cular Therapy Agents cetirizine 10 mg tablet 02-02 00:00: 00 Yes [id number] ALLERGIES 1 tablet BEDTIME 1 tablet BEDTIME (route: oral) Med Classific ation: Respirato ry Therapy Agents Eliquis 5 mg tablet 02-02 00:00: 00 Yes [id number] HEART 1 tablet 2 TIMES DAILY 1 tablet 2 TIMES DAILY (route: oral) Med Classific ation: Hematolog ical Agents Jardiance 10 mg tablet 02-02 00:00: 00 Yes [id number] DIABETES 1 tablet DAILY 1 tablet DAILY (route: oral) Med Classific ation: Endocrine metoprolol succinate ER 25 mg tablet,exte nded release 24 hr 02-02 00:00: 00 Yes [id number] HEART 1 tablet DAILY 1 tablet DAILY [...] ALBERTO SZYMANSKI. RN TO OBSERVE AND ASSESS, NSH TEACHER/PROTOTYPE CARPENTER TO OBSERVE FOR RISK FOR FALLS AND INSTRUCT IN FALL PREVENTION, HOME SAFETY, MEDICATION MANAGEMENT, INFECTION PREVENTION, AND NUTRITION MANAGEMENT. RN/NSH TEACHER/PROTOTYPE CARPENTER NURSE MAY PERFORM O2 SATURATION LEVEL ON ADMISSION AND PRN FOR DYSPNEA FOR RN TO ASSESS/NSH TEACHER TO OBSERVE PATIENT, WITH NOTIFICATION TO THE PHYSICIAN IF SATURATION IS 90% IN THE ABSENCE OF MORE SPECIFIC PARAMETERS FROM THE PHYSICIAN. AGENCY MAY PERFORM A RESUMPTION OF CARE VISIT FOLLOWING ANY HOSPITAL ADMISSION. RN/NSH TEACHER/PROTOTYPE CARPENTER TO MONITOR CO-MORBID CONDITIONS LISTED ON THE PLAN OF CARE AND ANY NEW CONDITIONS THAT PRESENT THEMSELVES DURING THIS EPISODE TO IDENTIFY CHANGES AND INTERVENE TO MINIMIZE COMPLICATIONS. [code = RN TO OBSERVE, ASSESS, EVALUATE, AND DEVELOP AN INDIVIDUALIZED PLAN OF CARE. AGENCY MAY ACCEPT ORDERS FROM CONSULTING PHYSICIANS ALBERTO SZYMANSKI. RN TO OBSERVE AND ASSESS, NSH TEACHER/PROTOTYPE CARPENTER TO OBSERVE FOR RISK FOR FALLS AND INSTRUCT IN FALL PREVENTION, HOME SAFETY, MEDICATION MANAGEMENT, INFECTION PREVENTION, AND NUTRITION MANAGEMENT. RN/NSH TEACHER/PROTOTYPE CARPENTER NURSE MAY PERFORM O2 SATURATION LEVEL ON ADMISSION AND PRN FOR DYSPNEA FOR RN TO ASSESS/NSH TEACHER TO OBSERVE PATIENT, WITH NOTIFICATION TO THE PHYSICIAN IF SATURATION IS 90% IN THE ABSENCE OF MORE SPECIFIC PARAMETERS FROM THE PHYSICIAN. AGENCY MAY PERFORM A RESUMPTION OF CARE VISIT FOLLOWING ANY HOSPITAL ADMISSION. RN/NSH TEACHER/PROTOTYPE CARPENTER TO MONITOR CO-MORBID CONDITIONS LISTED ON THE PLAN OF CARE AND ANY NEW CONDITIONS THAT PRESENT THEMSELVES DURING THIS EPISODE TO IDENTIFY CHANGES AND INTERVENE TO MINIMIZE COMPLICATIONS.] Future Scheduled Test RISK FOR H OSPITALIZATION; RN TO ASSESS/TEACH, PROTOTYPE CARPENTER/NSH TEACHER TO OBSERVE/TEACH PATIENT/CAREGIVER ON RISK FOR HOSPITALIZATION/EMERGENCY ROOM VISITS, TEACH SIGNS AND SYMPTOMS THAT PUT PATIENT AT RISK, WHEN TO NOTIFY NURSE/PHYSICIAN OF COMPLICATIONS/DECLINE, AND WHEN TO CALL 911. [code = RISK FOR HOSPITALIZATION; RN TO ASSESS/TEACH, PROTOTYPE CARPENTER/NSH TEACHER TO OBSERVE/TEACH PATIENT/CAREGIVER ON RISK FOR HOSPITALIZATION/EMERGENCY ROOM VISITS, TEACH SIGNS AND SYMPTOMS THAT PUT PATIENT AT RISK, WHEN TO NOTIFY NURSE/PHYSICIAN OF COMPLICATIONS/DECLINE, AND WHEN TO CALL 911.] Future Scheduled Test CARDIOVASC ULAR SYSTEM; RN TO ASSESS/TEACH, NSH TEACHER/PROTOTYPE CARPENTER TO OBSERVE/TEACH RELATED TO ALTERED CARDIOVASCULAR STATUS TO MINIMIZE COMPLICATIONS AND REDUCE HOSPITALIZATION. [code = CARDIOVASCULAR SYSTEM; RN TO ASSESS/TEACH, NSH TEACHER/PROTOTYPE CARPENTER TO OBSERVE/TEACH RELATED TO ALTERED CARDIOVASCULAR STATUS TO MINIMIZE COMPLICATIONS AND REDUCE HOSPITALIZATION.] Future Scheduled Test HEART FAIL URE; RN TO ASSESS/TEACH, NSH TEACHER/PROTOTYPE CARPENTER TO OBSERVE/TEACH CARDIOPULMONARY SYSTEM TO IDENTIFY SIGNS [...] [code = HEART FAILURE; RN TO ASSESS/TEACH, NSH TEACHER/PROTOTYPE CARPENTER TO OBSERVE/TEACH CARDIOPULMONARY SYSTEM TO IDENTIFY SIGNS [...] ARRHYTHMIA MANAGEMENT; RN TO ASSESS AND TEACH, NSH TEACHER/PROTOTYPE CARPENTER TO OBSERVE AND TEACH WARNING SIGNS AND SYMPTOMS TO AVOID HOSPITALIZATION. [code = ARRHYTHMIA MANAGEMENT; RN TO ASSESS AND TEACH, NSH TEACHER/PROTOTYPE CARPENTER TO OBSERVE AND TEACH WARNING SIGNS AND SYMPTOMS TO AVOID HOSPITALIZATION.] Future Scheduled Test RESPIRATOR Y SYSTEM MANAGEMENT; RN TO ASSESS AND TEACH, NSH TEACHER/PROTOTYPE CARPENTER TO OBSERVE AND TEACH RELATED TO ALTERED RESPIRATORY STATUS TO MINIMIZE COMPLICATIONS AND REDUCE HOSPITALIZATION. [code = RESPIRATORY SYSTEM MANAGEMENT; RN TO ASSESS AND TEACH, NSH TEACHER/PROTOTYPE CARPENTER TO OBSERVE AND TEACH RELATED TO ALTERED RESPIRATORY STATUS TO MINIMIZE COMPLICATIONS AND REDUCE HOSPITALIZATION.] Future Scheduled Test COPD MANAG EMENT; RN TO ASSESS AND TEACH, NSH TEACHER/PROTOTYPE CARPENTER TO OBSERVE AND TEACH SIGNS/SYMPTOMS OF COPD EXACERBATION AND PROVIDE EARLY INTERVENTIONS TO MINIMIZE RISK OF HOSPITALIZATION. RN/NSH TEACHER/PROTOTYPE CARPENTER TO INSTRUCT ON SELF-CARE MANAGEMENT INCLUDING BREATHING TECHNIQUES, AIRWAY CLEARANCE, AND PROPER USE OF COPD MEDICATIONS. RN TO ASSESS AND TEACH, NSH TEACHER/PROTOTYPE CARPENTER TO OBSERVE AND TEACH PATIENT/CAREGIVER ABILITY TO MONITOR AND RECORD VITAL SIGNS INCLUDING PULSE OXIMETRY AND BLOOD PRESSURE. PULSE OXIMETER AND BP MONITOR TO BE PROVIDED IF NEEDED [code = COPD MANAGEMENT; RN TO ASSESS AND TEACH, NSH TEACHER/PROTOTYPE CARPENTER TO OBSERVE AND TEACH SIGNS/SYMPTOMS OF COPD EXACERBATION AND PROVIDE EARLY INTERVENTIONS TO MINIMIZE RISK OF HOSPITALIZATION. RN/NSH TEACHER/PROTOTYPE CARPENTER TO INSTRUCT ON SELF-CARE MANAGEMENT INCLUDING BREATHING TECHNIQUES, AIRWAY CLEARANCE, AND PROPER USE OF COPD MEDICATIONS. RN TO ASSESS AND TEACH, NSH TEACHER/PROTOTYPE CARPENTER TO OBSERVE AND TEACH PATIENT/CAREGIVER ABILITY TO MONITOR AND RECORD VITAL SIGNS INCLUDING PULSE OXIMETRY AND BLOOD PRESSURE. PULSE OXIMETER AND BP MONITOR TO BE PROVIDED IF NEEDED] Future Scheduled Test OXYGEN THE RAPY; RN/NSH TEACHER/PROTOTYPE CARPENTER TO INSTRUCT ON OXYGEN MANAGEMENT INCLUDING: ADMINISTRATION AT 2 L/MIN VIA NC CONTINUOUS/PRN FOR , CARE OF EQUIPMENT AND SAFETY. [code = OXYGEN THERAPY; RN/NSH TEACHER/PROTOTYPE CARPENTER TO INSTRUCT ON OXYGEN MANAGEMENT INCLUDING: ADMINISTRATION AT 2 L/MIN VIA NC CONTINUOUS/PRN FOR , CARE OF EQUIPMENT AND SAFETY.] Future Scheduled Test RN/NSH TEACHER/PROTOTYPE CARPENTER TO PERFORM/TEACH VENOUS STASIS ULCER CARE TO BLE AREA: IRRIGATE/CLEANSE WITH NS APPLY VASELINE GAUZE, MAY APPLY SKIN BARRIER TO PERIWOUND AREA PRN TO PREVENT SKIN MACERATION AND PROTECT PERIWOUND COVER WITH 4X4 GAUZE SECURE WITH KERLIX, EVELIO BANDAGE. CHANGE DRESSING EVERY OTHER DAYS AND PRN FOR DISLODGED AND SOILED DRESSING CAREGIVER TO CHANGE BETWEEN SN VISITS [code = RN/NSH TEACHER/PROTOTYPE CARPENTER TO PERFORM/TEACH VENOUS STASIS ULCER CARE TO BLE AREA: IRRIGATE/CLEANSE WITH NS APPLY VASELINE GAUZE, MAY APPLY SKIN BARRIER TO PERIWOUND AREA PRN TO PREVENT SKIN MACERATION AND PROTECT PERIWOUND COVER WITH 4X4 GAUZE SECURE WITH KERLIX, EVELIO BANDAGE. CHANGE DRESSING EVERY OTHER DAYS AND PRN FOR DISLODGED AND SOILED DRESSING CAREGIVER TO CHANGE BETWEEN SN VISITS] Future Scheduled Test PAIN MANAG EMENT; RN TO ASSESS AND TEACH, PROTOTYPE CARPENTER/NSH TEACHER TO OBSERVE AND TEACH AND PROVIDE EDUCATION ON PAIN MANAGEMENT TECHNIQUES. [code = PAIN MANAGEMENT; RN TO ASSESS AND TEACH, PROTOTYPE CARPENTER/NSH TEACHER TO OBSERVE AND TEACH AND PROVIDE EDUCATION ON PAIN MANAGEMENT TECHNIQUES.] Future Scheduled Test DIABETES M ANAGEMENT; RN TO ASSESS AND TEACH, PROTOTYPE CARPENTER/NSH TEACHER TO OBSERVE AND TEACH INSTRUCTIONS OF DIABETIC CARE TO INCLUDE: DIET LOW CARB SKIN CARE, SIGNS AND SYMPTOMS OF HYPO/HYPERGLYCEMIA, PROPER ADMINISTRATION OF DIABETIC MEDICATION. RN/PROTOTYPE CARPENTER/NSH TEACHER TO INSTRUCT ON DIABETIC FOOT CARE AND MONITOR FOR SKIN LESIONS ON LOWER EXTREMITIES. BLOOD GLUCOSE TESTING DAILY FREQ. RN TO ASSESS AND TEACH, PROTOTYPE CARPENTER/NSH TEACHER TO OBSERVE AND TEACH PATIENT/CAREGIVER ABILITY TO PERFORM AND RECORD BLOOD GLUCOSE TESTING ORDERED AND TO REPORT ABNORMAL FINDINGS TO PHYSICIAN. RN/PROTOTYPE CARPENTER/NSH TEACHER MAY PERFORM BLOOD GLUCOSE TEST NEEDED. RN/PROTOTYPE CARPENTER/NSH TEACHER TO REPORT TO PHYSICIAN BLOOD GLUCOSE READINGS GREATER THAN 400 OR LESS THAN 60 RN/PROTOTYPE CARPENTER/NSH TEACHER TO INSTRUCT PATIENT ON IMPORTANCE OF HGBA1C MONITORING, KIDNEY FUNCTION TEST, EYE AND FOOT EXAMS. [code = DIABETES MANAGEMENT; RN TO ASSESS AND TEACH, PROTOTYPE CARPENTER/NSH TEACHER TO OBSERVE AND TEACH INSTRUCTIONS OF DIABETIC CARE TO INCLUDE: DIET LOW CARB SKIN CARE, SIGNS AND SYMPTOMS OF HYPO/HYPERGLYCEMIA, PROPER ADMINISTRATION OF DIABETIC MEDICATION. RN/PROTOTYPE CARPENTER/NSH TEACHER TO INSTRUCT ON DIABETIC FOOT CARE AND MONITOR FOR SKIN LESIONS ON LOWER EXTREMITIES. BLOOD GLUCOSE TESTING DAILY FREQ. RN TO ASSESS AND TEACH, PROTOTYPE CARPENTER/NSH TEACHER TO OBSERVE AND TEACH PATIENT/CAREGIVER ABILITY TO PERFORM AND RECORD BLOOD GLUCOSE TESTING ORDERED AND TO REPORT ABNORMAL FINDINGS TO PHYSICIAN. RN/PROTOTYPE CARPENTER/NSH TEACHER MAY PERFORM BLOOD GLUCOSE TEST NEEDED. RN/PROTOTYPE CARPENTER/NSH TEACHER TO REPORT TO PHYSICIAN BLOOD GLUCOSE READINGS GREATER THAN 400 OR LESS THAN 60 RN/PROTOTYPE CARPENTER/NSH TEACHER TO INSTRUCT PATIENT ON IMPORTANCE OF HGBA1C MONITORING, KIDNEY FUNCTION TEST, EYE AND FOOT EXAMS.] Future Scheduled Test FALL REDUC TION MANAGEMENT; RN TO ASSESS AND OBSERVE, NSH TEACHER/PROTOTYPE CARPENTER TO OBSERVE FALL RISK FACTORS AND EDUCATE PATIENT/CAREGIVER ON STRATEGIES TO MINIMIZE THE RISK OF FALLING. [code = FALL REDUCTION MANAGEMENT; RN TO ASSESS AND OBSERVE, NSH TEACHER/PROTOTYPE CARPENTER TO OBSERVE FALL RISK FACTORS AND EDUCATE PATIENT/CAREGIVER ON STRATEGIES TO MINIMIZE THE RISK OF FALLING.] Future Scheduled Test PRN VISITS ; NUMBER OF RN/NSH TEACHER/PROTOTYPE CARPENTER VISITS: 2 RN/NSH TEACHER/PROTOTYPE CARPENTER TO PERFORM: CARDIOPULMONARY ASSESSMENT AND WOUND ASSESSMENT FOR THE FOLLOWING REASONS: WOUND INFECTION, ODOR, REDDNESS [code = PRN VISITS; NUMBER OF RN/NSH TEACHER/PROTOTYPE CARPENTER VISITS: 2 RN/NSH TEACHER/PROTOTYPE CARPENTER TO PERFORM: CARDIOPULMONARY ASSESSMENT AND WOUND ASSESSMENT FOR THE FOLLOWING REASONS: WOUND INFECTION, ODOR, REDDNESS] Goal 2025-03-09 Patient Goal - BREATH BETTER AND WALK Goal 2024-09-07 Patient Goal - BREATH BETTER AND WALK Goal 2024-11-06 Patient Goal - BREATH BETTER AND WALK Goal 2025-01-05 Patient Goal - BREATH BETTER AND WALK Goal 2025-02-02 Patient Goal - BREATH BETTER AND WALK Goal Provider Goal - A PLAN OF CARE WILL BE ESTABLISHED THAT MEETS THE PATIENT S NEEDS. PATIENT WILL DEMONSTRATE OXYGEN SATURATION WITHIN NORMAL LIMITS OR PATIENT S OPTIMAL LEVEL ESTABLISHED BY THE PHYSICIAN THROUGHOUT [...] End Date/Time Encounter Type Admission Type Attending [facility] Care Department Encounter ID Discharge Date Discharge Status Discharge Condition Discharge Reason Percent Goals Met 2025-01-10 00:00:00 2025-03-09 00:00:00 Outpatient RECERTIFIC JANET [facility] [id number] 2025-03-09 00:00:00 DISCHARGE TO HOME OR SELF CARE INDEPENDEN T IN THE COMMUNITY HH - NON COMPLIANT WITH PLAN OF TREATMENT 94.12
--- OUTSIDE RECORDS SUMMARY | 2025-03-08 20:00 | XMS_ITS | Clinical Summary ---
Author Organization Unknown Care Team Providers Care Book Author Name Role Phone STE[employer]ON [employer] COMMUNICATIONS MANAGER, ALBERTO Unavailable Unavailable JILL PT, MARK Unavailable Unavailable ROSHAN CERTIFIED OPHTHALMIC MEDICAL TECHNICIAN, REMI Unavailable Unavailable ROSSI OT, ROXANE Unavailable Unavailable AMINAH MERINO/BEVERLY, ABE Unavailable Un available LEE RN, JANET Unavailable Unavailable Payers Payer Name Policy Type Policy Number Effective Date Expira tion Date [employer] [id number] Problems Condition Name Condition Details Condition Category [...] 2023-08 00:00: 00 ATHSCL HEART DISEASE OF [place] CORONARY ARTERY W/O ANG PCTRS Active 08-12 00:00: 00 PAROXYSMAL ATRIAL FIBRILLATION Active 08-12 00:00: 00 ANXIETY DISORDER, UNSPECIFIED Active 08-12 00:00: 00 DEPRESSION, UNSPECIFIED Active 08-12 00:00: 00 PRIMARY OSTEOARTHRIT IS, UNSPECIFIED SITE Active 08-12 00:00: 00 GASTRO-ESOPH AGEAL REFLUX DISEASE WITHOUT ESOPHAGITIS Active 08-12 00:00: 00 HYPOTHYROIDI SM, UNSPECIFIED Active 08-12 00:00: 00 DEPENDENCE ON SUPPLEMENTAL OXYGEN Active 2023-08 00:00: 00 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 Active 02-02 00:00: 00 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 ORAL 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 DRUGS [...] 10-30 00:00: 00 11-07 23:59 :00 No [id number] INFECTION Per instruc tions DAILY Per instructio ns DAILY (route: intravenou s) Med Classific ation: Anti-Infe ctive Agents sertraline 100 mg tablet 11-14 00:00: 00 07-05 23:59 :00 No [id number] DEPRESSION 1 tablet DAILY 1 tablet DAILY (route: oral) Med Classific ation: Central Nervous System Agents levothyroxi ne 25 mcg tablet 11-14 00:00: 00 07-05 23:59 :00 No [id number] SUPPLEMENTA L 1 tablet DAILY 1 tablet DAILY (route: oral) Med Classific ation: Endocrine nadolol 40 mg tablet 11-14 00:00: 00 07-05 23:59 :00 No [id number] BP 1 tablet DAILY 1 tablet DAILY (route: oral) Med Classific ation: Cardiovas cular Therapy Agents diltiazem CD 180 mg capsule,ext ended release 24 hr 11-14 00:00: 00 07-05 23:59 :00 No [id number] BP 1 capsule DAILY 1 capsule DAILY (route: oral) Med Classific ation: Cardiovas cular Therapy Agents pantoprazol e 40 mg tablet,matty yed release 11-14 00:00: 00 07-05 23:59 :00 No [id number] STOMACH 1 tablet DAILY 1 tablet DAILY (route: oral) Med Classific ation: Gastroint estinal Therapy Agents famotidine 20 mg tablet 11-14 00:00: 00 07-05 23:59 :00 No [id number] STOMACH Per instruc tions DAILY Per instructio ns DAILY (route: oral) Med Classific ation: Gastroint estinal Therapy Agents sertraline 50 mg tablet 11-14 00:00: 00 07-05 23:59 :00 No [id number] ANXIETY 1 tablet DAILY 1 tablet DAILY (route: oral) Med Classific ation: Central Nervous System Agents gabapentin 100 mg capsule 11-14 00:00: 00 01-09 23:59 :00 No [id number] NERVE PAIN 1 capsule 2 TIMES DAILY 1 capsule 2 TIMES DAILY (route: oral) Med Classific ation: Central Nervous System Agents buspirone 7.5 mg tablet 11-14 00:00: 00 07-05 23:59 :00 No [id number] ANXIETY 1 tablet DAILY 1 tablet DAILY (route: oral) Med Classific ation: Central Nervous System Agents mirtazapine 15 mg tablet 11-14 00:00: 00 07-05 23:59 :00 No [id number] SLEEP 1 tablet 2 TIMES A WEEK 1 tablet 2 TIMES A WEEK (route: oral) Med Classific ation: Central Nervous System Agents cefdinir 300 mg capsule 01-02 00:00: 00 01-03 23:59 :00 No [id number] for cellulits/ infection to leg 1 capsule 2 TIMES DAILY 1 capsule 2 TIMES DAILY (route: oral) Med Classific ation: Anti-Infe ctive Agents Breo Ellipta 100 mcg-25 mcg/dose powder for inhalation 2021-08 00:00: 00 07-05 23:59 :00 No [id number] LUNGS 1 inhalat ion DAILY 1 inhalation DAILY (route: inhalation ) Med Classific ation: Respirato ry Therapy Agents nystatin 100,000 unit/gram topical powder 2023-08 00:00: 00 Yes [id number] UNDER BREAST AND ABDOMEN 1 unit 4 TIMES DAILY 1 unit 4 TIMES DAILY (route: topical) Med Classific ation: Dermatolo gical oxygen gas for inhalation 2023-08 00:00: 00 Yes [id number] SOA 2 Liter O2 - CONTINUOUS 2 Liter O2 - CONTINUOUS (route: inhalation ) Med Classific ation: Medical Supplies and Durable Medical Equipment (DME) bumetanide 1 mg tablet 2023-08 00:00: 00 Yes [id number] WATER PILL 1 tablet DAILY 1 tablet DAILY (route: oral) Med Classific ation: Cardiovas cular Therapy Agents buspirone 7.5 mg tablet 2020-08 00:00: 00 Yes [id number] MOOD 1 tablet 2 TIMES DAILY 1 tablet 2 TIMES DAILY (route: oral) Med Classific ation: Central Nervous System Agents Gemtesa 75 mg tablet 2020-08 00:00: 00 Yes [id number] URINARY 1 tablet DAILY 1 tablet DAILY (route: oral) Med Classific ation: Genitouri nary Therapy levothyroxi ne 25 mcg tablet 2020-08 00:00: 00 Yes [id number] THYROID 1 tablet DAILY 1 tablet DAILY (route: oral) Med Classific ation: Endocrine meloxicam 7.5 mg tablet 2020-08 00:00: 00 02-02 23:59 :00 No [id number] PAIN 1 tablet DAILY 1 tablet DAILY (route: oral) Med Classific ation: Analgesic , Anti-infl ammatory or Antipyret ic mirtazapine 15 mg tablet 2021-08 00:00: 00 Yes [id number] RLS 1 tablet BEDTIME 1 tablet BEDTIME (route: oral) Med Classific ation: Central Nervous System Agents pantoprazol e 40 mg tablet,matty yed release 2020-08 00:00: 00 Yes [id number] GERD 1 tablet BEDTIME 1 tablet BEDTIME (route: oral) Med Classific ation: Gastroint estinal Therapy Agents Pepcid 20 mg tablet 2021-08 00:00: 00 Yes [id number] GERD 1 tablet 2 TIMES DAILY 1 tablet 2 TIMES DAILY (route: oral) Med Classific ation: Gastroint estinal Therapy Agents sertraline 150 mg capsule 2020-08 00:00: 00 Yes [id number] MOOD 1 capsule DAILY 1 capsule DAILY (route: oral) Med Classific ation: Central Nervous System Agents valsartan 160 mg tablet 2021-08 00:00: 00 02-02 23:59 :00 No [id number] HEART 1 tablet DAILY 1 tablet DAILY (route: oral) Med Classific ation: Cardiovas cular Therapy Agents cyclobenzap rine 10 mg tablet 09-10 00:00: 00 02-02 23:59 :00 No [id number] PAIN 1 tablet 3 TIMES DAILY 1 tablet 3 TIMES DAILY (route: oral) Med Classific ation: Locomotor System Aspirin Childrens 81 mg chewable tablet 02-02 00:00: 00 Yes [id number] HEART 1 tablet DAILY 1 tablet DAILY (route: oral) Med Classific ation: Hematolog ical Agents atorvastati n 20 mg tablet 02-02 00:00: 00 Yes [id number] CHOLESTEROL 1 tablet DAILY 1 tablet DAILY (route: oral) Med Classific ation: Cardiovas cular Therapy Agents cetirizine 10 mg tablet 02-02 00:00: 00 Yes [id number] ALLERGIES 1 tablet BEDTIME 1 tablet BEDTIME (route: oral) Med Classific ation: Respirato ry Therapy Agents Eliquis 5 mg tablet 02-02 00:00: 00 Yes [id number] HEART 1 tablet 2 TIMES DAILY 1 tablet 2 TIMES DAILY (route: oral) Med Classific ation: Hematolog ical Agents Jardiance 10 mg tablet 02-02 00:00: 00 Yes [id number] DIABETES 1 tablet DAILY 1 tablet DAILY (route: oral) Med Classific ation: Endocrine metoprolol succinate ER 25 mg tablet,exte nded release 24 hr 02-02 00:00: 00 Yes [id number] HEART 1 tablet DAILY 1 tablet DAILY [...] ALBERTO SZYMANSKI. RN TO OBSERVE AND ASSESS, ONLINE PRODUCER/ELEMENTARY SCHOOL PROFESSIONAL TO OBSERVE FOR RISK FOR FALLS AND INSTRUCT IN FALL PREVENTION, HOME SAFETY, MEDICATION MANAGEMENT, INFECTION PREVENTION, AND NUTRITION MANAGEMENT. RN/ONLINE PRODUCER/ELEMENTARY SCHOOL PROFESSIONAL NURSE MAY PERFORM O2 SATURATION LEVEL ON ADMISSION AND PRN FOR DYSPNEA FOR RN TO ASSESS/ONLINE PRODUCER TO OBSERVE PATIENT, WITH NOTIFICATION TO THE PHYSICIAN IF SATURATION IS 90% IN THE ABSENCE OF MORE SPECIFIC PARAMETERS FROM THE PHYSICIAN. AGENCY MAY PERFORM A RESUMPTION OF CARE VISIT FOLLOWING ANY HOSPITAL ADMISSION. RN/ONLINE PRODUCER/ELEMENTARY SCHOOL PROFESSIONAL TO MONITOR CO-MORBID CONDITIONS LISTED ON THE PLAN OF CARE AND ANY NEW CONDITIONS THAT PRESENT THEMSELVES DURING THIS EPISODE TO IDENTIFY CHANGES AND INTERVENE TO MINIMIZE COMPLICATIONS. [code = RN TO OBSERVE, ASSESS, EVALUATE, AND DEVELOP AN INDIVIDUALIZED PLAN OF CARE. AGENCY MAY ACCEPT ORDERS FROM CONSULTING PHYSICIANS ALBERTO SZYMANSKI. RN TO OBSERVE AND ASSESS, ONLINE PRODUCER/ELEMENTARY SCHOOL PROFESSIONAL TO OBSERVE FOR RISK FOR FALLS AND INSTRUCT IN FALL PREVENTION, HOME SAFETY, MEDICATION MANAGEMENT, INFECTION PREVENTION, AND NUTRITION MANAGEMENT. RN/ONLINE PRODUCER/ELEMENTARY SCHOOL PROFESSIONAL NURSE MAY PERFORM O2 SATURATION LEVEL ON ADMISSION AND PRN FOR DYSPNEA FOR RN TO ASSESS/ONLINE PRODUCER TO OBSERVE PATIENT, WITH NOTIFICATION TO THE PHYSICIAN IF SATURATION IS 90% IN THE ABSENCE OF MORE SPECIFIC PARAMETERS FROM THE PHYSICIAN. AGENCY MAY PERFORM A RESUMPTION OF CARE VISIT FOLLOWING ANY HOSPITAL ADMISSION. RN/ONLINE PRODUCER/ELEMENTARY SCHOOL PROFESSIONAL TO MONITOR CO-MORBID CONDITIONS LISTED ON THE PLAN OF CARE AND ANY NEW CONDITIONS THAT PRESENT THEMSELVES DURING THIS EPISODE TO IDENTIFY CHANGES AND INTERVENE TO MINIMIZE COMPLICATIONS.] Future Scheduled Test RISK FOR H OSPITALIZATION; RN TO ASSESS/TEACH, ELEMENTARY SCHOOL PROFESSIONAL/ONLINE PRODUCER TO OBSERVE/TEACH PATIENT/CAREGIVER ON RISK FOR HOSPITALIZATION/EMERGENCY ROOM VISITS, TEACH SIGNS AND SYMPTOMS THAT PUT PATIENT AT RISK, WHEN TO NOTIFY NURSE/PHYSICIAN OF COMPLICATIONS/DECLINE, AND WHEN TO CALL 911. [code = RISK FOR HOSPITALIZATION; RN TO ASSESS/TEACH, ELEMENTARY SCHOOL PROFESSIONAL/ONLINE PRODUCER TO OBSERVE/TEACH PATIENT/CAREGIVER ON RISK FOR HOSPITALIZATION/EMERGENCY ROOM VISITS, TEACH SIGNS AND SYMPTOMS THAT PUT PATIENT AT RISK, WHEN TO NOTIFY NURSE/PHYSICIAN OF COMPLICATIONS/DECLINE, AND WHEN TO CALL 911.] Future Scheduled Test CARDIOVASC ULAR SYSTEM; RN TO ASSESS/TEACH, ONLINE PRODUCER/ELEMENTARY SCHOOL PROFESSIONAL TO OBSERVE/TEACH RELATED TO ALTERED CARDIOVASCULAR STATUS TO MINIMIZE COMPLICATIONS AND REDUCE HOSPITALIZATION. [code = CARDIOVASCULAR SYSTEM; RN TO ASSESS/TEACH, ONLINE PRODUCER/ELEMENTARY SCHOOL PROFESSIONAL TO OBSERVE/TEACH RELATED TO ALTERED CARDIOVASCULAR STATUS TO MINIMIZE COMPLICATIONS AND REDUCE HOSPITALIZATION.] Future Scheduled Test HEART FAIL URE; RN TO ASSESS/TEACH, ONLINE PRODUCER/ELEMENTARY SCHOOL PROFESSIONAL TO OBSERVE/TEACH CARDIOPULMONARY SYSTEM TO IDENTIFY SIGNS [...] [code = HEART FAILURE; RN TO ASSESS/TEACH, ONLINE PRODUCER/ELEMENTARY SCHOOL PROFESSIONAL TO OBSERVE/TEACH CARDIOPULMONARY SYSTEM TO IDENTIFY SIGNS [...] ARRHYTHMIA MANAGEMENT; RN TO ASSESS AND TEACH, ONLINE PRODUCER/ELEMENTARY SCHOOL PROFESSIONAL TO OBSERVE AND TEACH WARNING SIGNS AND SYMPTOMS TO AVOID HOSPITALIZATION. [code = ARRHYTHMIA MANAGEMENT; RN TO ASSESS AND TEACH, ONLINE PRODUCER/ELEMENTARY SCHOOL PROFESSIONAL TO OBSERVE AND TEACH WARNING SIGNS AND SYMPTOMS TO AVOID HOSPITALIZATION.] Future Scheduled Test RESPIRATOR Y SYSTEM MANAGEMENT; RN TO ASSESS AND TEACH, ONLINE PRODUCER/ELEMENTARY SCHOOL PROFESSIONAL TO OBSERVE AND TEACH RELATED TO ALTERED RESPIRATORY STATUS TO MINIMIZE COMPLICATIONS AND REDUCE HOSPITALIZATION. [code = RESPIRATORY SYSTEM MANAGEMENT; RN TO ASSESS AND TEACH, ONLINE PRODUCER/ELEMENTARY SCHOOL PROFESSIONAL TO OBSERVE AND TEACH RELATED TO ALTERED RESPIRATORY STATUS TO MINIMIZE COMPLICATIONS AND REDUCE HOSPITALIZATION.] Future Scheduled Test COPD MANAG EMENT; RN TO ASSESS AND TEACH, ONLINE PRODUCER/ELEMENTARY SCHOOL PROFESSIONAL TO OBSERVE AND TEACH SIGNS/SYMPTOMS OF COPD EXACERBATION AND PROVIDE EARLY INTERVENTIONS TO MINIMIZE RISK OF HOSPITALIZATION. RN/ONLINE PRODUCER/ELEMENTARY SCHOOL PROFESSIONAL TO INSTRUCT ON SELF-CARE MANAGEMENT INCLUDING BREATHING TECHNIQUES, AIRWAY CLEARANCE, AND PROPER USE OF COPD MEDICATIONS. RN TO ASSESS AND TEACH, ONLINE PRODUCER/ELEMENTARY SCHOOL PROFESSIONAL TO OBSERVE AND TEACH PATIENT/CAREGIVER ABILITY TO MONITOR AND RECORD VITAL SIGNS INCLUDING PULSE OXIMETRY AND BLOOD PRESSURE. PULSE OXIMETER AND BP MONITOR TO BE PROVIDED IF NEEDED [code = COPD MANAGEMENT; RN TO ASSESS AND TEACH, ONLINE PRODUCER/ELEMENTARY SCHOOL PROFESSIONAL TO OBSERVE AND TEACH SIGNS/SYMPTOMS OF COPD EXACERBATION AND PROVIDE EARLY INTERVENTIONS TO MINIMIZE RISK OF HOSPITALIZATION. RN/ONLINE PRODUCER/ELEMENTARY SCHOOL PROFESSIONAL TO INSTRUCT ON SELF-CARE MANAGEMENT INCLUDING BREATHING TECHNIQUES, AIRWAY CLEARANCE, AND PROPER USE OF COPD MEDICATIONS. RN TO ASSESS AND TEACH, ONLINE PRODUCER/ELEMENTARY SCHOOL PROFESSIONAL TO OBSERVE AND TEACH PATIENT/CAREGIVER ABILITY TO MONITOR AND RECORD VITAL SIGNS INCLUDING PULSE OXIMETRY AND BLOOD PRESSURE. PULSE OXIMETER AND BP MONITOR TO BE PROVIDED IF NEEDED ] Future Scheduled Test OXYGEN THE RAPY; RN/ONLINE PRODUCER/ELEMENTARY SCHOOL PROFESSIONAL TO INSTRUCT ON OXYGEN MANAGEMENT INCLUDING: ADMINISTRATION AT 2 L/MIN VIA NC CONTINUOUS/PRN FOR , CARE OF EQUIPMENT AND SAFETY. [code = OXYGEN THERAPY; RN/ONLINE PRODUCER/ELEMENTARY SCHOOL PROFESSIONAL TO INSTRUCT ON OXYGEN MANAGEMENT INCLUDING: ADMINISTRATION AT 2 L/MIN VIA NC CONTINUOUS/PRN FOR , CARE OF EQUIPMENT AND SAFETY.] Future Scheduled Test RN/ONLINE PRODUCER/ELEMENTARY SCHOOL PROFESSIONAL TO PERFORM/TEACH VENOUS STASIS ULCER CARE TO BLE AREA: IRRIGATE/CLEANSE WITH NS APPLY VASELINE GAUZE, MAY APPLY SKIN BARRIER TO PERIWOUND AREA PRN TO PREVENT SKIN MACERATION AND PROTECT PERIWOUND COVER WITH 4X4 GAUZE SECURE WITH KERLIX, EVELIO BANDAGE. CHANGE DRESSING EVERY OTHER DAYS AND PRN FOR DISLODGED AND SOILED DRESSING CAREGIVER TO CHANGE BETWEEN SN VISITS [code = RN/ONLINE PRODUCER/ELEMENTARY SCHOOL PROFESSIONAL TO PERFORM/TEACH VENOUS STASIS ULCER CARE TO [...] MANAG EMENT; RN TO ASSESS AND TEACH, ELEMENTARY SCHOOL PROFESSIONAL/ONLINE PRODUCER TO OBSERVE AND TEACH AND PROVIDE EDUCATION ON PAIN MANAGEMENT TECHNIQUES. [code = PAIN MANAGEMENT; RN TO ASSESS AND TEACH, ELEMENTARY SCHOOL PROFESSIONAL/ONLINE PRODUCER TO OBSERVE AND TEACH AND PROVIDE EDUCATION ON PAIN MANAGEMENT TECHNIQUES.] Future Scheduled Test DIABETES M ANAGEMENT; RN TO ASSESS AND TEACH, ELEMENTARY SCHOOL PROFESSIONAL/ONLINE PRODUCER TO OBSERVE AND TEACH INSTRUCTIONS OF DIABETIC CARE TO INCLUDE: DIET LOW CARB SKIN CARE, SIGNS AND SYMPTOMS OF HYPO/HYPERGLYCEMIA, PROPER ADMINISTRATION OF DIABETIC MEDICATION. RN/ELEMENTARY SCHOOL PROFESSIONAL/ONLINE PRODUCER TO INSTRUCT ON DIABETIC FOOT CARE AND MONITOR FOR SKIN LESIONS ON LOWER EXTREMITIES. BLOOD GLUCOSE TESTING DAILY FREQ. RN TO ASSESS AND TEACH, ELEMENTARY SCHOOL PROFESSIONAL/ONLINE PRODUCER TO OBSERVE AND TEACH PATIENT/CAREGIVER ABILITY TO PERFORM AND RECORD BLOOD GLUCOSE TESTING ORDERED AND TO REPORT ABNORMAL FINDINGS TO PHYSICIAN. RN/ELEMENTARY SCHOOL PROFESSIONAL/ONLINE PRODUCER MAY PERFORM BLOOD GLUCOSE TEST NEEDED. RN/ELEMENTARY SCHOOL PROFESSIONAL/ONLINE PRODUCER TO REPORT TO PHYSICIAN BLOOD GLUCOSE READINGS GREATER THAN 400 OR LESS THAN 60 RN/ELEMENTARY SCHOOL PROFESSIONAL/ONLINE PRODUCER TO INSTRUCT PATIENT ON IMPORTANCE OF HGBA1C MONITORING, KIDNEY FUNCTION TEST, EYE AND FOOT EXAMS. [code = DIABETES MANAGEMENT; RN TO ASSESS AND TEACH, ELEMENTARY SCHOOL PROFESSIONAL/ONLINE PRODUCER TO OBSERVE AND TEACH INSTRUCTIONS OF DIABETIC CARE TO INCLUDE: DIET LOW CARB SKIN CARE, SIGNS AND SYMPTOMS OF HYPO/HYPERGLYCEMIA, PROPER ADMINISTRATION OF DIABETIC MEDICATION. RN/ELEMENTARY SCHOOL PROFESSIONAL/ONLINE PRODUCER TO INSTRUCT ON DIABETIC FOOT CARE AND MONITOR FOR SKIN LESIONS ON LOWER EXTREMITIES. BLOOD GLUCOSE TESTING DAILY FREQ. RN TO ASSESS AND TEACH, ELEMENTARY SCHOOL PROFESSIONAL/ONLINE PRODUCER TO OBSERVE AND TEACH PATIENT/CAREGIVER ABILITY TO PERFORM AND RECORD BLOOD GLUCOSE TESTING ORDERED AND TO REPORT ABNORMAL FINDINGS TO PHYSICIAN. RN/ELEMENTARY SCHOOL PROFESSIONAL/ONLINE PRODUCER MAY PERFORM BLOOD GLUCOSE TEST NEEDED. RN/ELEMENTARY SCHOOL PROFESSIONAL/ONLINE PRODUCER TO REPORT TO PHYSICIAN BLOOD GLUCOSE READINGS GREATER THAN 400 OR LESS THAN 60 RN/ELEMENTARY SCHOOL PROFESSIONAL/ONLINE PRODUCER TO INSTRUCT PATIENT ON IMPORTANCE OF HGBA1C MONITORING, KIDNEY FUNCTION TEST, EYE AND FOOT EXAMS.] Future Scheduled Test FALL REDUC TION MANAGEMENT; RN TO ASSESS AND OBSERVE, ONLINE PRODUCER/ELEMENTARY SCHOOL PROFESSIONAL TO OBSERVE FALL RISK FACTORS AND EDUCATE PATIENT/CAREGIVER ON STRATEGIES TO MINIMIZE THE RISK OF FALLING. [code = FALL REDUCTION MANAGEMENT; RN TO ASSESS AND OBSERVE, ONLINE PRODUCER/ELEMENTARY SCHOOL PROFESSIONAL TO OBSERVE FALL RISK FACTORS AND EDUCATE PATIENT/CAREGIVER ON STRATEGIES TO MINIMIZE THE RISK OF FALLING.] Future Scheduled Test PRN VISITS ; NUMBER OF RN/ONLINE PRODUCER/ELEMENTARY SCHOOL PROFESSIONAL VISITS: 2 RN/ONLINE PRODUCER/ELEMENTARY SCHOOL PROFESSIONAL TO PERFORM: CARDIOPULMONARY ASSESSMENT AND WOUND ASSESSMENT FOR THE FOLLOWING REASONS: WOUND INFECTION, ODOR, REDDNESS [code = PRN VISITS; NUMBER OF RN/ONLINE PRODUCER/ELEMENTARY SCHOOL PROFESSIONAL VISITS: 2 RN/ONLINE PRODUCER/ELEMENTARY SCHOOL PROFESSIONAL TO PERFORM: CARDIOPULMONARY ASSESSMENT AND WOUND ASSESSMENT [...] 2025-03-09 00:00:00 Outpatient RECERTIFIC ATION JANET HOWARD [facility] [place] [id number] 2025-03-09 00:00:00 DISCHARGE TO HOME OR SELF CARE INDEPENDEN T IN THE [facility] - NON COMPLIANT WITH PLAN OF TREATMENT 94.12
--- OUTSIDE RECORDS SUMMARY | 2025-03-08 20:00 | XMS_ITS | Clinical Summary ---
Author Organization Unknown Care Team Providers Care Watch Case Polisher Name Role Phone STEPHON DESKTOP OPERATOR, ALBERTO Unavailable Unavailable JILL PT, MARK Unavailable Unavailable ROSHAN DOMESTIC HOUSEKEEPER, REMI Unavailable Unavailable ROSSI OT, ROXANE Unavailable Unavailable AMINAH MERINO/BEVERLY, ABE Unavailable Un available LEE RN, JANET Unavailable Unavailable Payers Payer Name Policy Type Policy Number Effective Date Expira tion Date [employer] .[id number] Problems Condition Name Condition Details Condition Category [...] 2023-08 00:00: 00 ATHSCL HEART DISEASE OF [place] CORONARY ARTERY W/O ANG PCTRS Active 08-12 00:00: 00 PAROXYSMAL ATRIAL FIBRILLATION Active 08-12 00:00: 00 ANXIETY DISORDER, UNSPECIFIED Active 08-12 00:00: 00 DEPRESSION, UNSPECIFIED Active 08-12 00:00: 00 PRIMARY OSTEOARTHRIT IS, UNSPECIFIED SITE Active 08-12 00:00: 00 GASTRO-ESOPH AGEAL REFLUX DISEASE WITHOUT ESOPHAGITIS Active 08-12 00:00: 00 HYPOTHYROIDI SM, UNSPECIFIED Active 08-12 00:00: 00 DEPENDENCE ON SUPPLEMENTAL OXYGEN Active 2023-08 00:00: 00 DOOR MANAGER (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 OF ANTICOAGULAN TS Active 02-02 00:00: 00 DOOR MANAGER (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 OF ORAL 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 DRUGS Active [...] 10-30 00:00: 00 11-07 23:59 :00 No [id number] INFECTION Per instruc tions DAILY Per instructio ns DAILY (route: intravenou s) Med Classific ation: Anti-Infe ctive Agents sertraline 100 mg tablet 11-14 00:00: 00 07-05 23:59 :00 No [id number] DEPRESSION 1 tablet DAILY 1 tablet DAILY (route: oral) Med Classific ation: Central Nervous System Agents levothyroxi ne 25 mcg tablet 11-14 00:00: 00 07-05 23:59 :00 No [id number] SUPPLEMENTA L 1 tablet DAILY 1 tablet DAILY (route: oral) Med Classific ation: Endocrine nadolol 40 mg tablet 11-14 00:00: 00 07-05 23:59 :00 No [id number] BP 1 tablet DAILY 1 tablet DAILY (route: oral) Med Classific ation: Cardiovas cular Therapy Agents diltiazem CD 180 mg capsule,ext ended release 24 hr 11-14 00:00: 00 07-05 23:59 :00 No [id number] BP 1 capsule DAILY 1 capsule DAILY (route: oral) Med Classific ation: Cardiovas cular Therapy Agents pantoprazol e 40 mg tablet,matty yed release 11-14 00:00: 00 07-05 23:59 :00 No [id number] STOMACH 1 tablet DAILY 1 tablet DAILY (route: oral) Med Classific ation: Gastroint estinal Therapy Agents famotidine 20 mg tablet 11-14 00:00: 00 07-05 23:59 :00 No [id number] STOMACH Per instruc tions DAILY Per instructio ns DAILY (route: oral) Med Classific ation: Gastroint estinal Therapy Agents sertraline 50 mg tablet 11-14 00:00: 00 07-05 23:59 :00 No [id number] ANXIETY 1 tablet DAILY 1 tablet DAILY (route: oral) Med Classific ation: Central Nervous System Agents gabapentin 100 mg capsule 11-14 00:00: 00 01-09 23:59 :00 No [id number] NERVE PAIN 1 capsule 2 TIMES DAILY 1 capsule 2 TIMES DAILY (route: oral) Med Classific ation: Central Nervous System Agents buspirone 7.5 mg tablet 11-14 00:00: 00 07-05 23:59 :00 No [id number] ANXIETY 1 tablet DAILY 1 tablet DAILY (route: oral) Med Classific ation: Central Nervous System Agents mirtazapine 15 mg tablet 11-14 00:00: 00 07-05 23:59 :00 No [id number] SLEEP 1 tablet 2 TIMES A WEEK 1 tablet 2 TIMES A WEEK (route: oral) Med Classific ation: Central Nervous System Agents cefdinir 300 mg capsule 01-02 00:00: 00 01-03 23:59 :00 No [id number] for cellulits/ infection to leg 1 capsule 2 TIMES DAILY 1 capsule 2 TIMES DAILY (route: oral) Med Classific ation: Anti-Infe ctive Agents Breo Ellipta 100 mcg-25 mcg/dose powder for inhalation 2021-08 00:00: 00 07-05 23:59 :00 No [id number] LUNGS 1 inhalat ion DAILY 1 inhalation DAILY (route: inhalation ) Med Classific ation: Respirato ry Therapy Agents nystatin 100,000 unit/gram topical powder 2023-08 00:00: 00 Yes [id number] UNDER BREAST AND ABDOMEN 1 unit 4 TIMES DAILY 1 unit 4 TIMES DAILY (route: topical) Med Classific ation: Dermatolo gical oxygen gas for inhalation 2023-08 00:00: 00 Yes [id number] SOA 2 Liter O2 - CONTINUOUS 2 Liter O2 - CONTINUOUS (route: inhalation ) Med Classific ation: Medical Supplies and Durable Medical Equipment (DME) bumetanide 1 mg tablet 2023-08 00:00: 00 Yes [id number] WATER PILL 1 tablet DAILY 1 tablet DAILY (route: oral) Med Classific ation: Cardiovas cular Therapy Agents buspirone 7.5 mg tablet 2020-08 00:00: 00 Yes [id number] MOOD 1 tablet 2 TIMES DAILY 1 tablet 2 TIMES DAILY (route: oral) Med Classific ation: Central Nervous System Agents Gemtesa 75 mg tablet 2020-08 00:00: 00 Yes [id number] URINARY 1 tablet DAILY 1 tablet DAILY (route: oral) Med Classific ation: Genitouri nary Therapy levothyroxi ne 25 mcg tablet 2020-08 00:00: 00 Yes [id number] THYROID 1 tablet DAILY 1 tablet DAILY (route: oral) Med Classific ation: Endocrine meloxicam 7.5 mg tablet 2020-08 00:00: 00 02-02 23:59 :00 No [id number] PAIN 1 tablet DAILY 1 tablet DAILY (route: oral) Med Classific ation: Analgesic , Anti-infl ammatory or Antipyret ic mirtazapine 15 mg tablet 2021-08 00:00: 00 Yes [id number] RLS 1 tablet BEDTIME 1 tablet BEDTIME (route: oral) Med Classific ation: Central Nervous System Agents pantoprazol e 40 mg tablet,matty yed release 2020-08 00:00: 00 Yes [id number] GERD 1 tablet BEDTIME 1 tablet BEDTIME (route: oral) Med Classific ation: Gastroint estinal Therapy Agents Pepcid 20 mg tablet 2021-08 00:00: 00 Yes [id number] GERD 1 tablet 2 TIMES DAILY 1 tablet 2 TIMES DAILY (route: oral) Med Classific ation: Gastroint estinal Therapy Agents sertraline 150 mg capsule 2020-08 00:00: 00 Yes [id number] MOOD 1 capsule DAILY 1 capsule DAILY (route: oral) Med Classific ation: Central Nervous System Agents valsartan 160 mg tablet 2021-08 00:00: 00 02-02 23:59 :00 No [id number] HEART 1 tablet DAILY 1 tablet DAILY (route: oral) Med Classific ation: Cardiovas cular Therapy Agents cyclobenzap rine 10 mg tablet 09-10 00:00: 00 02-02 23:59 :00 No [id number] PAIN 1 tablet 3 TIMES DAILY 1 tablet 3 TIMES DAILY (route: oral) Med Classific ation: Locomotor System Aspirin Childrens 81 mg chewable tablet 02-02 00:00: 00 Yes [id number] HEART 1 tablet DAILY 1 tablet DAILY (route: oral) Med Classific ation: Hematolog ical Agents atorvastati n 20 mg tablet 02-02 00:00: 00 Yes [id number] CHOLESTEROL 1 tablet DAILY 1 tablet DAILY (route: oral) Med Classific ation: Cardiovas cular Therapy Agents cetirizine 10 mg tablet 02-02 00:00: 00 Yes [id number] ALLERGIES 1 tablet BEDTIME 1 tablet BEDTIME (route: oral) Med Classific ation: Respirato ry Therapy Agents Eliquis 5 mg tablet 02-02 00:00: 00 Yes [id number] HEART 1 tablet 2 TIMES DAILY 1 tablet 2 TIMES DAILY (route: oral) Med Classific ation: Hematolog ical Agents Jardiance 10 mg tablet 02-02 00:00: 00 Yes [id number] DIABETES 1 tablet DAILY 1 tablet DAILY (route: oral) Med Classific ation: Endocrine metoprolol succinate ER 25 mg tablet,exte nded release 24 hr 02-02 00:00: 00 Yes [id number] HEART 1 tablet DAILY 1 tablet DAILY [...] ALBERTO SZYMANSKI. RN TO OBSERVE AND ASSESS, WELL SERVICES OPERATOR/STEERER TO OBSERVE FOR RISK FOR FALLS AND INSTRUCT IN FALL PREVENTION, HOME SAFETY, MEDICATION MANAGEMENT, INFECTION PREVENTION, AND NUTRITION MANAGEMENT. RN/WELL SERVICES OPERATOR/STEERER NURSE MAY PERFORM O2 SATURATION LEVEL ON ADMISSION AND PRN FOR DYSPNEA FOR RN TO ASSESS/WELL SERVICES OPERATOR TO OBSERVE PATIENT, WITH NOTIFICATION TO THE PHYSICIAN IF SATURATION IS 90% IN THE ABSENCE OF MORE SPECIFIC PARAMETERS FROM THE PHYSICIAN. AGENCY MAY PERFORM A RESUMPTION OF CARE VISIT FOLLOWING ANY HOSPITAL ADMISSION. RN/WELL SERVICES OPERATOR/STEERER TO MONITOR CO-MORBID CONDITIONS LISTED ON THE PLAN OF CARE AND ANY NEW CONDITIONS THAT PRESENT THEMSELVES DURING THIS EPISODE TO IDENTIFY CHANGES AND INTERVENE TO MINIMIZE COMPLICATIONS. [code = RN TO OBSERVE, ASSESS, EVALUATE, AND DEVELOP AN INDIVIDUALIZED PLAN OF CARE. AGENCY MAY ACCEPT ORDERS FROM CONSULTING PHYSICIANS ALBERTO SZYMANSKI. RN TO OBSERVE AND ASSESS, WELL SERVICES OPERATOR/STEERER TO OBSERVE FOR RISK FOR FALLS AND INSTRUCT IN FALL PREVENTION, HOME SAFETY, MEDICATION MANAGEMENT, INFECTION PREVENTION, AND NUTRITION MANAGEMENT. RN/WELL SERVICES OPERATOR/STEERER NURSE MAY PERFORM O2 SATURATION LEVEL ON ADMISSION AND PRN FOR DYSPNEA FOR RN TO ASSESS/WELL SERVICES OPERATOR TO OBSERVE PATIENT, WITH NOTIFICATION TO THE PHYSICIAN IF SATURATION IS 90% IN THE ABSENCE OF MORE SPECIFIC PARAMETERS FROM THE PHYSICIAN. AGENCY MAY PERFORM A RESUMPTION OF CARE VISIT FOLLOWING ANY HOSPITAL ADMISSION. RN/WELL SERVICES OPERATOR/STEERER TO MONITOR CO-MORBID CONDITIONS LISTED ON THE PLAN OF CARE AND ANY NEW CONDITIONS THAT PRESENT THEMSELVES DURING THIS EPISODE TO IDENTIFY CHANGES AND INTERVENE TO MINIMIZE COMPLICATIONS.] Future Scheduled Test RISK FOR H OSPITALIZATION; RN TO ASSESS/TEACH, STEERER/WELL SERVICES OPERATOR TO OBSERVE/TEACH PATIENT/CAREGIVER ON RISK FOR HOSPITALIZATION/EMERGENCY ROOM VISITS, TEACH SIGNS AND SYMPTOMS THAT PUT PATIENT AT RISK, WHEN TO NOTIFY NURSE/PHYSICIAN OF COMPLICATIONS/DECLINE, AND WHEN TO CALL 911. [code = RISK FOR HOSPITALIZATION; RN TO ASSESS/TEACH, STEERER/WELL SERVICES OPERATOR TO OBSERVE/TEACH PATIENT/CAREGIVER ON RISK FOR HOSPITALIZATION/EMERGENCY ROOM VISITS, TEACH SIGNS AND SYMPTOMS THAT PUT PATIENT AT RISK, WHEN TO NOTIFY NURSE/PHYSICIAN OF COMPLICATIONS/DECLINE, AND WHEN TO CALL 911.] Future Scheduled Test CARDIOVASC ULAR SYSTEM; RN TO ASSESS/TEACH, WELL SERVICES OPERATOR/STEERER TO OBSERVE/TEACH RELATED TO ALTERED CARDIOVASCULAR STATUS TO MINIMIZE COMPLICATIONS AND REDUCE HOSPITALIZATION. [code = CARDIOVASCULAR SYSTEM; RN TO ASSESS/TEACH, WELL SERVICES OPERATOR/STEERER TO OBSERVE/TEACH RELATED TO ALTERED CARDIOVASCULAR STATUS TO MINIMIZE COMPLICATIONS AND REDUCE HOSPITALIZATION.] Future Scheduled Test HEART FAIL URE; RN TO ASSESS/TEACH, WELL SERVICES OPERATOR/STEERER TO OBSERVE/TEACH CARDIOPULMONARY SYSTEM TO IDENTIFY SIGNS [...] [code = HEART FAILURE; RN TO ASSESS/TEACH, WELL SERVICES OPERATOR/STEERER TO OBSERVE/TEACH CARDIOPULMONARY SYSTEM TO IDENTIFY SIGNS [...] ARRHYTHMIA MANAGEMENT; RN TO ASSESS AND TEACH, WELL SERVICES OPERATOR/STEERER TO OBSERVE AND TEACH WARNING SIGNS AND SYMPTOMS TO AVOID HOSPITALIZATION. [code = ARRHYTHMIA MANAGEMENT; RN TO ASSESS AND TEACH, WELL SERVICES OPERATOR/STEERER TO OBSERVE AND TEACH WARNING SIGNS AND SYMPTOMS TO AVOID HOSPITALIZATION.] Future Scheduled Test RESPIRATOR Y SYSTEM MANAGEMENT; RN TO ASSESS AND TEACH, WELL SERVICES OPERATOR/STEERER TO OBSERVE AND TEACH RELATED TO ALTERED RESPIRATORY STATUS TO MINIMIZE COMPLICATIONS AND REDUCE HOSPITALIZATION. [code = RESPIRATORY SYSTEM MANAGEMENT; RN TO ASSESS AND TEACH, WELL SERVICES OPERATOR/STEERER TO OBSERVE AND TEACH RELATED TO ALTERED RESPIRATORY STATUS TO MINIMIZE COMPLICATIONS AND REDUCE HOSPITALIZATION.] Future Scheduled Test COPD MANAG EMENT; RN TO ASSESS AND TEACH, WELL SERVICES OPERATOR/STEERER TO OBSERVE AND TEACH SIGNS/SYMPTOMS OF COPD EXACERBATION AND PROVIDE EARLY INTERVENTIONS TO MINIMIZE RISK OF HOSPITALIZATION. RN/WELL SERVICES OPERATOR/STEERER TO INSTRUCT ON SELF-CARE MANAGEMENT INCLUDING BREATHING TECHNIQUES, AIRWAY CLEARANCE, AND PROPER USE OF COPD MEDICATIONS. RN TO ASSESS AND TEACH, WELL SERVICES OPERATOR/STEERER TO OBSERVE AND TEACH PATIENT/CAREGIVER ABILITY TO MONITOR AND RECORD VITAL SIGNS INCLUDING PULSE OXIMETRY AND BLOOD PRESSURE. PULSE OXIMETER AND BP MONITOR TO BE PROVIDED IF NEEDED [code = COPD MANAGEMENT; RN TO ASSESS AND TEACH, WELL SERVICES OPERATOR/STEERER TO OBSERVE AND TEACH SIGNS/SYMPTOMS OF COPD EXACERBATION AND PROVIDE EARLY INTERVENTIONS TO MINIMIZE RISK OF HOSPITALIZATION. RN/WELL SERVICES OPERATOR/STEERER TO INSTRUCT ON SELF-CARE MANAGEMENT INCLUDING BREATHING TECHNIQUES, AIRWAY CLEARANCE, AND PROPER USE OF COPD MEDICATIONS. RN TO ASSESS AND TEACH, WELL SERVICES OPERATOR/STEERER TO OBSERVE AND TEACH PATIENT/CAREGIVER ABILITY TO MONITOR AND RECORD VITAL SIGNS INCLUDING PULSE OXIMETRY AND BLOOD PRESSURE. PULSE OXIMETER AND BP MONITOR TO BE PROVIDED IF NEEDED] Future Scheduled Test OXYGEN THE RAPY; RN/WELL SERVICES OPERATOR/STEERER TO INSTRUCT ON OXYGEN MANAGEMENT INCLUDING: ADMINISTRATION AT 2 L/MIN VIA NC CONTINUOUS/PRN FOR , CARE OF EQUIPMENT AND SAFETY. [code = OXYGEN THERAPY; RN/WELL SERVICES OPERATOR/STEERER TO INSTRUCT ON OXYGEN MANAGEMENT INCLUDING: ADMINISTRATION AT 2 L/MIN VIA NC CONTINUOUS/PRN FOR , CARE OF EQUIPMENT AND SAFETY.] Future Scheduled Test RN/WELL SERVICES OPERATOR/STEERER TO PERFORM/TEACH VENOUS STASIS ULCER CARE TO BLE AREA: IRRIGATE/CLEANSE WITH NS APPLY VASELINE GAUZE, MAY APPLY SKIN BARRIER TO PERIWOUND AREA PRN TO PREVENT SKIN MACERATION AND PROTECT PERIWOUND COVER WITH 4X4 GAUZE SECURE WITH KERLIX, EVELIO BANDAGE. CHANGE DRESSING EVERY OTHER DAYS AND PRN FOR DISLODGED AND SOILED DRESSING CAREGIVER TO CHANGE BETWEEN SN VISITS [code = RN/WELL SERVICES OPERATOR/STEERER TO PERFORM/TEACH VENOUS STASIS ULCER CARE TO [...] MANAG EMENT; RN TO ASSESS AND TEACH, STEERER/WELL SERVICES OPERATOR TO OBSERVE AND TEACH AND PROVIDE EDUCATION ON PAIN MANAGEMENT TECHNIQUES. [code = PAIN MANAGEMENT; RN TO ASSESS AND TEACH, STEERER/WELL SERVICES OPERATOR TO OBSERVE AND TEACH AND PROVIDE EDUCATION ON PAIN MANAGEMENT TECHNIQUES.] Future Scheduled Test DIABETES M ANAGEMENT; RN TO ASSESS AND TEACH, STEERER/WELL SERVICES OPERATOR TO OBSERVE AND TEACH INSTRUCTIONS OF DIABETIC CARE TO INCLUDE: DIET LOW CARB SKIN CARE, SIGNS AND SYMPTOMS OF HYPO/HYPERGLYCEMIA, PROPER ADMINISTRATION OF DIABETIC MEDICATION. RN/STEERER/WELL SERVICES OPERATOR TO INSTRUCT ON DIABETIC FOOT CARE AND MONITOR FOR SKIN LESIONS ON LOWER EXTREMITIES. BLOOD GLUCOSE TESTING DAILY FREQ. RN TO ASSESS AND TEACH, STEERER/WELL SERVICES OPERATOR TO OBSERVE AND TEACH PATIENT/CAREGIVER ABILITY TO PERFORM AND RECORD BLOOD GLUCOSE TESTING ORDERED AND TO REPORT ABNORMAL FINDINGS TO PHYSICIAN. RN/STEERER/WELL SERVICES OPERATOR MAY PERFORM BLOOD GLUCOSE TEST NEEDED. RN/STEERER/WELL SERVICES OPERATOR TO REPORT TO PHYSICIAN BLOOD GLUCOSE READINGS GREATER THAN 400 OR LESS THAN 60 RN/STEERER/WELL SERVICES OPERATOR TO INSTRUCT PATIENT ON IMPORTANCE OF HGBA1C MONITORING, KIDNEY FUNCTION TEST, EYE AND FOOT EXAMS. [code = DIABETES MANAGEMENT; RN TO ASSESS AND TEACH, STEERER/WELL SERVICES OPERATOR TO OBSERVE AND TEACH INSTRUCTIONS OF DIABETIC CARE TO INCLUDE: DIET LOW CARB SKIN CARE, SIGNS AND SYMPTOMS OF HYPO/HYPERGLYCEMIA, PROPER ADMINISTRATION OF DIABETIC MEDICATION. RN/STEERER/WELL SERVICES OPERATOR TO INSTRUCT ON DIABETIC FOOT CARE AND MONITOR FOR SKIN LESIONS ON LOWER EXTREMITIES. BLOOD GLUCOSE TESTING DAILY FREQ. RN TO ASSESS AND TEACH, STEERER/WELL SERVICES OPERATOR TO OBSERVE AND TEACH PATIENT/CAREGIVER ABILITY TO PERFORM AND RECORD BLOOD GLUCOSE TESTING ORDERED AND TO REPORT ABNORMAL FINDINGS TO PHYSICIAN. RN/STEERER/WELL SERVICES OPERATOR MAY PERFORM BLOOD GLUCOSE TEST NEEDED. RN/STEERER/WELL SERVICES OPERATOR TO REPORT TO PHYSICIAN BLOOD GLUCOSE READINGS GREATER THAN 400 OR LESS THAN 60 RN/STEERER/WELL SERVICES OPERATOR TO INSTRUCT PATIENT ON IMPORTANCE OF HGBA1C MONITORING, KIDNEY FUNCTION TEST, EYE AND FOOT EXAMS.] Future Scheduled Test FALL REDUC TION MANAGEMENT; RN TO ASSESS AND OBSERVE, WELL SERVICES OPERATOR/STEERER TO OBSERVE FALL RISK FACTORS AND EDUCATE PATIENT/CAREGIVER ON STRATEGIES TO MINIMIZE THE RISK OF FALLING. [code = FALL REDUCTION MANAGEMENT; RN TO ASSESS AND OBSERVE, WELL SERVICES OPERATOR/STEERER TO OBSERVE FALL RISK FACTORS AND EDUCATE PATIENT/CAREGIVER ON STRATEGIES TO MINIMIZE THE RISK OF FALLING.] Future Scheduled Test PRN VISITS ; NUMBER OF RN/WELL SERVICES OPERATOR/STEERER VISITS: 2 RN/WELL SERVICES OPERATOR/STEERER TO PERFORM: CARDIOPULMONARY ASSESSMENT AND WOUND ASSESSMENT FOR THE FOLLOWING REASONS: WOUND INFECTION, ODOR, REDDNESS [code = PRN VISITS; NUMBER OF RN/WELL SERVICES OPERATOR/STEERER VISITS: 2 RN/WELL SERVICES OPERATOR/STEERER TO PERFORM: CARDIOPULMONARY ASSESSMENT AND WOUND ASSESSMENT [...] End Date/Time Encounter Type Admission Type Attending [facility] Care Department Encounter ID Discharge Date Discharge Status Discharge Condition Discharge Reason Percent Goals Met 2025-01-10 00:00:00 2025-03-09 00:00:00 Outpatient RECERTIFIC JANET RAJAN [facility] [id number] 2025-03-09 00:00:00 DISCHARGE TO HOME OR SELF CARE INDEPENDEN T IN THE [facility] - NON COMPLIANT WITH PLAN OF TREATMENT 94.12
[2025-04-07] VITALS (16 sets, daily range): BP systolic 131–156; BP diastolic 55–107; PULSE 60–75; RESP 12–33; TEMP 37.3–37.4; O2SAT 94–99; BMI 29.2
--- NOTE | 2025-04-07 20:14 | ECG_ITS ---
APPROVED REPORT Exam: Resting ECG HR:69 bpm ECG Measurements Heart Rate 69 AXES ME 168 P 66 QRSd 84 QRS -21 QT 393 T 8 QTc 413 Conclusion SINUS RHYTHM WITH OCCASIONAL SUPRAVENTRICULAR PREMATURE COMPLEXES BORDERLINE LEFT AXIS DEVIATION [QRS AXIS < -20] NONSPECIFIC T-WAVE ABNORMALITY BORDERLINE ECG UNCONFIRMED REPORT Electronically signed by : LENIN ASHFORD, 04/08/2025 06:56:51
--- NOTE | 2025-04-07 20:17 | HMH.EDGENADL ---
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 result showing a pH of 7.27 with a pCO2 of 57. On my examination of the patient she did have increased work of breathing even though she is still mentating properly and maintaining her airway. I placed the patient on 4 L of nasal cannula, her baseline is 2 L nasal cannula. This was for work of breathing not hypoxia. Given her VBG results I also contacted the respiratory therapy team to initiate BiPAP for the patient. In addition to this, I did perform a cardiac POCUS assessment of the patient and found that she had B-lines in her bilateral lung roper. No evidence of pleural effusion at this time. Limited cardiac echo was relatively unremarkable. My overall impression is this patient is likely experiencing a COPD exacerbation in conjunction with a congestive heart failure exacerbation with acute hypoxic respiratory failure. I ultimately had an interactive discussion with the internal medicine service who agreed to evaluate the patient in the emergency department. After our discussion of their evaluation they agreed to admit the patient to their service and accept primary responsibility of the patient moving forward. Procedures <Kelvin Roblero DO - Last Filed: 04/08/25 00:23> Miscellaneous Procedure Procedure Performed: Limited cardiac ultrasound note Indication: Shortness of breath Identified cardiac views: Cardiac parasternal long Cardiac parasternal short Cardiac apical four-chamber Findings: Cardiac activity: Present Gross wall motion: Normal Pericardial effusion: Absent Right heart strain: Absent Impression: Normal limited cardiac POCUS without evidence of pericardial effusion Images were saved to permanent archive This study was technically adequate CPT: 02789 This study was performed by me and I personally interpreted all images/videos. Based on my clinical judgment these images were adequate and did not necessitate further imaging. Limited lung ultrasound A focused ultrasound exam of the pleural spaces was performed to evaluate for pneumothorax, pulmonary edema, pleural effusion, and/or consolidation. The ultrasound was performed with the following indications as noted in the H&P: Dyspnea Identified structures: Right and left thoracic cavities were examined. Findings Lung sliding: Left and right present B-lines: Present left anterior and lateral Present right anterior and lateral Pleural effusion: Absent Impression: Pneumothorax left and right absent Pleural effusion left and right absent B-lines left and right present Patient does have B-lines in her bilateral lung roper. Images were saved to permanent archive This study was technically adequate CPT: 02513-57 This study was performed by me and I personally interpreted all images/videos. Based on my clinical judgment these images were adequate and did necessitate further imaging. Critical Care <Day Humphrey - Last Filed: 04/07/25 22:04> Critical Care Time Critical Care Time: No
--- OUTSIDE RECORDS SUMMARY | 2025-04-07 20:27 | XMS_ITS | Clinical Summary ---
Author Organization [facility] Address [address] [place] [address] Phone Care Team Providers Care Driveway Attendant Name Role Phone Unavailable Unavailable Conditions or Problems No information available. Medications No information available. Medications Administered No information available. Allergies, Adverse Reactions, Alerts No information available. Results No information available. Plan of Care No information available. Procedures No information available. Vital Signs No information available. Immunizations No information available. Advance Directives No information available.
--- OUTSIDE RECORDS SUMMARY | 2025-04-07 20:27 | XMS_ITS | Encounter Summary ---
Author Organization [employer] ([place], [place], [place], [place]) Address [address] [address] Care Team Providers Care Fisher Hand Line Name Role Phone Ted Matute MD Primary Care Provider [phone]- [phone] Ted Matute MD Unavailable [phone] Encounter Details Date Type Department Care Team (Late st Contact Info) Description 09/28/2024 Lab Requisition [facility] [address] [place] [address] Maria Luz Johnson, WEB PUBLISHER [address] [phone] Sepsis, unspecified organism (HCC) Social History Tobacco Use Types Packs/Day Years Used Date Smoking Tobacco: Never Assessed Comments Unknown Sex and Gender Information Value Date Recorded Sex Assigned at Not on file Legal Sex Female 3:57 PM CDT Gender Identity Not on file Sexual Orientation Not on file documented as of this encounter Plan of Treatment Scheduled Orders Name Type Priority Associated Diagnoses Orde r Schedule Wound Culture + Gram Stain Microbiology Sepsis, unspecified organism (HCC) Ordered: 09/28/2024 documented as of this encounter Visit Diagnoses Diagnosis Sepsis, unspecified organism (HCC) documented in this encounter Care Teams Fisher Hand Line Relationship Specialty Start Date End Date Ted Matute MD [facility] [address] [place] [id number] PCP - General Family Medicine 05/20/23 Ted Matute MD [address] [facility] [address] [place] [phone] Referring Physician Family Medicine 05/20/23 documented as of this encounter
--- OUTSIDE RECORDS SUMMARY | 2025-04-07 20:27 | XMS_ITS | Encounter Summary ---
Author Organization [employer] ([place], [place], [place], [place]) Address [address] [place] [address] Care Team Providers Care Physical Scientist Name Role Phone Ted Matute MD Primary Care Provider [phone] Ted Matute MD Unavailable [phone] Encounter Details Date Type Department Care Team (Late st Contact Info) Description 09/28/2024 Outside Orders [facility] Admitting [address] [place] [address] Maria Luz Johnson D, HOSPICE REGISTERED NURSE [address] [phone] Systemic infection (HCC) (Primary Dx) Social History Tobacco Use Types Packs/Day Years Used Date Smoking Tobacco: Never Assessed Comments Unknown Sex and Gender Information Value Date Recorded Sex Assigned at Not on file Legal Sex Female 3:57 PM CDT Gender Identity Not on file Sexual Orientation Not on file documented as of this encounter Plan of Treatment Not on file documented as of this encounter Procedures Procedure Name Priority Date/Time Associated Diagnosis Comments WOUND CULTURE + GRAM STAIN Routine 09/28/2024 12:00 PM EST Systemic infection (HCC) documented in this encounter Results * (ABNORMAL) Wound Culture + Gram Stain (09/28/2024 12:00 PM EST) Result Heavy Growth Enterobacter cloacae(A) 10/02/2024 7:43 AM EST [facility] Result Heavy Growth Staphylococcus aureus(A) 10/02/2024 7:43 AM EST [facility] Result Heavy Growth Streptococcus agalactiae(A) 10/02/2024 7:43 AM [facility] Result Heavy Growth Corynebacterium species(A) 10/02/2024 7:43 AM [facility] Comment: No further identification No susceptibility performed Gram Stain Result Moderate gram positive cocci in pairs 10/02/2024 7:43 AM EST [facility] Gram Stain Result Few gram positive rods 10/02/2024 7:43 AM EST [facility] Gram Stain Result Rare WBCs 025 7:43 AM [facility] Wound ABDOMEN / Unknown Collection / Unknown 09/28/2024 12:00 PM EST 09/28/2024 6:26 PM EST Narrative Organism Antibiotic Method Susceptibility Enterobacter cloacae Amikacin <=16: Susceptible Enterobacter cloacae Amoxicillin + Clavulanate >16/8: Resistant Enterobacter cloacae Ampicillin >16: Resistant Enterobacter cloacae Ampicillin + Sulbactam 16/8: Resistant Enterobacter cloacae Aztreonam <=4: Susceptible Enterobacter cloacae Cefazolin >16: Resistant Enterobacter cloacae Cefepime <=2: Susceptible Enterobacter cloacae Cefoxitin >16: Resistant Enterobacter cloacae Cefuroxime >16: Resistant Enterobacter cloacae Ciprofloxacin 1: Resistant Enterobacter cloacae Ertapenem <=0.5: Susceptible Enterobacter cloacae Gentamicin <=2: Susceptible Enterobacter cloacae Imipenem <=1: Susceptible Enterobacter cloacae Levofloxacin 1: Intermediate Enterobacter cloacae Meropenem <=1: Susceptible Enterobacter cloacae Minocycline 8: Intermediate Enterobacter cloacae Moxifloxacin >4: Resistant Enterobacter cloacae Piperacillin + Tazobactam <=8: Susceptible Enterobacter cloacae Tetracycline >8: Resistant Enterobacter cloacae Tigecycline <=2: Susceptible Enterobacter cloacae Tobramycin <=2: Susceptible Enterobacter cloacae Trimethoprim + Sulfamethoxazole <=0.5/9.5: Susceptible Staphylococcus aureus Amoxicillin + Clavulanate <=4/2: Susceptible Staphylococcus aureus Ampicillin >8: Beta-Lactamase Positive Staphylococcus aureus Ampicillin + Sulbactam <=8/4: Susceptible Staphylococcus aureus Azithromycin >4: Resistant Staphylococcus aureus Cefazolin <=8: Susceptible Staphylococcus aureus Cefepime <=4: Susceptible Staphylococcus aureus Cefotaxime <=8: Susceptible Staphylococcus aureus Cefoxitin Screen <=4: Negative Staphylococcus aureus Ceftaroline <=0.5: Susceptible Staphylococcus aureus Ceftriaxone <=4: Susceptible Staphylococcus aureus Ciprofloxacin >2: Resistant Staphylococcus aureus Clindamycin <=0.25: Susceptible Staphylococcus aureus Daptomycin <=0.5: Susceptible Staphylococcus aureus Erythromycin >4: Resistant Staphylococcus aureus Gentamicin <=4: Susceptible Staphylococcus aureus Imipenem <=4: Susceptible Staphylococcus aureus Inducible Clindamycin <=4/0.5: Negative Staphylococcus aureus Levofloxacin >4: Resistant Staphylococcus aureus Meropenem <=2: Susceptible Staphylococcus aureus Oxacillin 0.5: Susceptible Staphylococcus aureus Penicillin >2: Beta-Lactamase Positive Staphylococcus aureus Piperacillin + Tazobactam <=8: Susceptible Staphylococcus aureus Rifampin <=1: Susceptible Staphylococcus aureus Tetracycline <=4: Susceptible Staphylococcus aureus Trimethoprim + Sulfamethoxazole <=0.5/9.5: Susceptible Staphylococcus aureus Vancomycin 1: Susceptible Maria Luz Johnson HOSPICE REGISTERED NURSE MICROBIOLOGY - GENERAL ORD ERABLES Final Result [facility] [address] [place] [address], [facility] [[email or web address]] [phone] [facility] [address] [place] [address], [facility] [[email or web address]] [phone] documented in this encounter Visit Diagnoses Diagnosis Systemic infection (HCC)- Primary Unspecified septicemia documented in this encounter Care Teams Physical Scientist Relationship Specialty Start Date End Date Ted Matute MD [address] [facility] [address] [place] [phone] PCP - General Family Medicine 05/20/23 Ted Matute MD [address] [facility] [address] [place] [phone] Referring Physician Family Medicine 05/20/23 documented as of this encounter
--- OUTSIDE RECORDS SUMMARY | 2025-04-07 20:27 | XMS_ITS | Referral Summary ---
Author Organization [employer] ([place], [place], [place], [place]) Address [address] [place] [address] Care Team Providers Care Community Health Worker Name Role Phone Ted Matute MD Primary Care Provider [phone] Ted Matute MD Unavailable [phone] Social History Tobacco Use Types Packs/Day Years Used Date Smoking Tobacco: Never Assessed Comments Unknown Sex and Gender Information Value Date Recorded Sex Assigned at Not on file Legal Sex Female 3:57 PM CDT Gender Identity Not on file Sexual Orientation Not on file Plan of Treatment Not on file Insurance MEDICAID OF [place] [facility] Care Teams Community Health Worker Relationship Specialty Start Date End Date Ted Matute MD [address] [place] [address] PCP - General Family Medicine 05/20/23 Ted Matute MD [address] [facility] [facility] [address] [place] [phone] Referring Physician Family Medicine 05/20/23
--- OUTSIDE RECORDS SUMMARY | 2025-04-07 20:27 | XMS_ITS | Clinical Summary ---
Author Organization [employer] ([place], [place], [place], [place]) Address [address] [place] [address] Care Team Providers Care Pattern Hand Name Role Phone Ted Matute MD Primary Care Provider [phone] Ted Matute MD Unavailable [phone] Social History Tobacco Use Types Packs/Day Years Used Date Smoking Tobacco: Never Assessed Comments Unknown Sex and Gender Information Value Date Recorded Sex Assigned at Not on file Legal Sex Female 3:57 PM CDT Gender Identity Not on file Sexual Orientation Not on file Plan of Treatment Health Maintenance Due Date Last Done Comments DXA SCAN 1945 Depression Screening (12+) 1957 Tobacco Cessation Counseling and Screening (12+) 1957 DTAP/TDAP/TD VACCINES (1 - Tdap) 02/05/1964 Pneumococcal 50+ years (1 of 1 - PCV) 1995 Shingles Vaccine (Zoster) (1 of 2) 1995 Medicare Initial AWV [id number] 08/13/2005 Respiratory Syncytial Virus (RSV) Adult or (1 - 1-dose 75+ series) 02/05/2020 COVID-19 VACCINE (3 - season) 04/12/202402/2021, 11/15/2020 Falls Risk Screening 08/12/2024 Influenza Vaccine (#1) 2025 Insurance [place]ICAID [place] [id number] [facility] ADV Care Teams Pattern Hand Relationship Specialty Start Date End Date Ted Matute MD [address] [facility] [address] [place] [address] PCP - General Family Medicine 05/20/23 Ted Matute MD [address] [facility] [address] [place] [address] Referring Physician Family Medicine 05/20/23
--- OUTSIDE RECORDS SUMMARY | 2025-04-07 20:27 | XMS_ITS | Clinical Summary ---
Author Organization [facility] Address [address] [place] [address] Care Team Providers Care Roof Plumber Name Role Phone Ted Matute MD Primary Care Provider [phone] Family History Medical History Relation Name Comments Cardiac disorder Father Diabetes Father Hypertension Father Cardiac disorder Mother Conversions - Other Mother Hearing deficit Diabetes Mother Hypertension Mother Thyroid disease Mother Diabetes Sibling 1 Hypertension Sibling 2 Hypertension Sister 1 Thyroid disease Sister 2 Relation Name Status Comments Father Mother Sibling 1 Sibling 2 Sister 1 Sister 2 Social History Tobacco Use Types Packs/Day Years Used Date Smoking Tobacco: Never Alcohol Use Standard Drinks/Week Comments No 0 (1 standard drink = 0.6 oz pur e alcohol) Comments Unknown Sex and Gender Information Value Date Recorded Sex Assigned at Not on file Legal Sex Female 8:53 PM EDT Gender Identity Not on file Sexual Orientation Not on file Last Filed Vital Signs Vital Sign Reading Time Taken Comments Blood Pressure 188/84 07/23/2019 11:03 AM EST Pulse 51 07/23/2019 11:03 AM EST Temperature - - Respiratory Rate - - Oxygen Saturation - - Inhaled Oxygen Concentration - - Weight 102 kg (225 lb) 07/23/2019 11:03 AM EST Height 160 cm (5' 3 ) 07/23/2019 11:03 AM EST Body Mass Index 39.86 07/23/2019 11:03 AM EST Plan of Treatment Health Maintenance Due Date Last Done Comments [facility]-Bone Density Scan 1945 [facility]-Depression Screening 1945 [facility]-Infant/Child/Adol SDOH Screenings 1945 [facility]- SDOH Screenings 1963 [facility]-Adult SDOH Screenings 1963 [facility]-DTaP,Tdap,and Td Vaccine s (1 - Tdap) 02/05/1964 [facility]-Pneumococcal Vaccine: 50 + Years (1 of 1 - PCV) 1995 [facility]-Zoster Vaccines (1 of 2) 1995 [facility]-RSV Vaccine: 60+ Years o r (1 - 1-dose 75+ series) 02/05/2020 [id number] Vaccine (1 - 20 24-25 season) 2024 [facility]-Influenza Vaccine (#1) 2025 HPV Vaccines Aged Out No longer eligi ble based on patient's age to complete this topic [facility]-HIB Vaccines Aged Out No longer e ligible based on patient's age to complete this topic [facility]-Hepatitis A Vaccines Aged Out No longer eligible based on patient's age to complete this topic [facility]-IPV Vaccines Aged Out No longer e ligible based on patient's age to complete this topic [facility]-Rotavirus Vaccines Aged Out No lo nger eligible based on patient's age to complete this topic Insurance [place] MEDICARE Care Teams Roof Plumber Relationship Specialty Start Date End Date Ted Matute MD [facility] [place] [address] [facility] - General 12/23/20
--- OUTSIDE RECORDS SUMMARY | 2025-04-07 20:28 | XMS_ITS | Clinical Summary ---
Author Organization [facility] Address [address] [place] [address] Care Team Providers Care Application Lead Name Role Phone Lance Santillan MD Primary Care Provider [phone] Allergies Active Allergy Reactions Criticality Noted Date Comments Allopurinol Other (See Comments) Low 12/29/2020 Loss of control of bladder Azithromycin Unknown - Low Severity Low 12/27/2020 Baclofen Other (See Comments) Low 12/29/2020 Loss of control of bladder Cephalosporins Nausea And Vomiting Low 12/27/2020 Tolerated Ceftriaxone Clarithromycin Other (See Comments) Low 12/27/2020 nervousness Clindamycin/Lincomycin GI Intolerance,Provide r Review Needed Low 12/27/2020 Codeine Anxiety Low 12/27/2020 Colchicine Diarrhea Low 12/29/2020 Erythromycin Rash Low 12/27/2020 Fexofenadine Unknown - Low Severity Low 12/27/2020 Fluticasone Other (See Comments) Low 12/27/2020 makes arthritis worse Gabapentin Swelling Medium 12/29/2020 Leg swelling Guaifenesin & Derivatives Unknown - Low Severity Low 12/27/2020 Hydrocodone Anxiety Low 12/27/2020 Imipramine Other (See Comments) Low 12/27/2020 urinary retention Lisinopril Cough Low 12/29/2020 Montelukast Other (See Comments) Medium 12/27/2020 face red and numb Ibuprofen GI Intolerance Low 12/29/2020 Guaifenesin Er GI Intolerance Low 12/29/2020 Naproxen GI Intolerance Low 12/29/2020 Mometasone Other (See Comments) Low 12/27/2020 cough and sore throat Nitrofuran Derivatives Unknown - Low Severity Low 12/27/2020 Other Other (See Comments) Low 12/29/2020 Steroids - turns skin red Paroxetine Anxiety Low 12/27/2020 Penicillins Other (See Comments) Low 12/27/2020 Makes her bladder raw Prednisone Unknown - Low Severity Low 12/27/2020 Pseudoephedrine Unknown - Low Severity Low 12/27/2020 Metoclopramide Other (See Comments) Low 12/27/2020 Constipation Nabumetone GI Intolerance Low 12/27/2020 Sulfa Antibiotics Nausea And Vomiting Low Gatifloxacin GI Intolerance Low 12/29/2020 Tramadol Dizziness Low 12/27/2020 Febuxostat Other (See Comments) Low 12/29/2020 Weakness Medications cetirizine (zyrTEC) 10 MG tablet Take 10 mg by mouth Daily. Active dilTIAZem CD (CARDIZEM CD) 180 MG 24 hr capsule Take 180 mg by mouth Daily. Active docusate sodium (COLACE) 100 MG capsule Take 100 mg by mouth Daily. Active levothyroxine (SYNTHROID, LEVOTHROID) 25 MCG tablet Take 25 mcg by mouth Daily. Active nadolol (CORGARD) 80 MG tablet Take 80 mg by mouth Daily. Active sertraline (ZOLOFT) 100 MG tablet Take 100 mg by mouth Daily. Active sertraline (ZOLOFT) 50 MG tablet Take 50 mg by mouth Daily. Active busPIRone (BUSPAR) 5 MG tablet Take 5 mg by mouth 2 (two) times a day. Active ondansetron (ZOFRAN) 4 MG tablet Take 4 mg by mouth Every 8 (Eight) Hours As Needed for Nausea or Vomiting. Active mirtazapine (Remeron) 15 MG tablet Take 2 tablets by mouth Every Night. 1 Active pantoprazole (PROTONIX) 40 MG EC tablet Take 1 tablet by mouth 2 (Two) Times a Day. 1 Active lactobacillus acidophilus (RISAQUAD) capsule capsule Take 1 capsule by mouth Daily. 1 Active calcium carbonate (TUMS) 500 MG chewable tablet Chew 1,000 mg 3 (Three) Times a Day As Needed for Indigestion or Heartburn. 1 Active ondansetron (Zofran) 4 MG tablet Take 1 tablet by mouth Every 8 (Eight) Hours As Needed for Nausea or Vomiting. 1 Active miconazole (MICOTIN) 2 % powder Apply topically to the appropriate area as directed Every 12 (Twelve) Hours. 1 Active oxyCODONE (Roxicodone) 5 MG immediate release tabletIndication s:Infection of right prosthetic hip joint Take 2 tablets by mouth Every 4 (Four) Hours As Needed for Moderate Pain . 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 Never 12/27/2020 Average Number of Drinks Not on file 021 Frequency of Binge Drinking Not on file 12/10 Abuse Screen Answer Date Recorded Unsafe at Home or Work/School Not on file Feels Threatened by Someone? Not on file 06/2023 Does Anyone Keep You from Co ntacting Others or Doint Things Outside the Home? Not on file 05/22/2023 Physical Sign of Abuse Present Not on file 1 Housing Stability Answer Date Recorded Current Living Arrangements Not on file 05/12 Potentially Unsafe Housing Conditions Not on myesha e 05/22/2023 Family and Community Support Answer Geovani e Recorded Help with Day-to-Day Activities Not on file 05/22/2023 Lonely or Isolated Not on file 05/22/2023 Employment Answer Date Recorded Do you want help finding or keeping work or a genet b? Not on file 05/22/2023 Disabilities Answer Date Recorded Concentrating, Remembering, or Making Decisions Difficulty Not on file 05/22/2023 Doing Errands Independently Difficulty Not on fi le 05/22/2023 Education Answer Date Recorded Help with school or training? Not on file Preferred Language Not on file 05/22/2023 Comments No Sex and Gender Information Value Date Recorded Sex Assigned at Not on file Legal Sex Female 11:46 AM EDT Gender Identity Not on file Sexual Orientation Not on file Last Filed Vital Signs Vital Sign Reading Time Taken Comments Blood Pressure 165/92 01/12/2021 9:44 AM EDT Pulse 68 01/12/2021 9:44 AM EDT Temperature 36.6 C (97.9 F) 01/12/2021 8:32 AM EDT Respiratory Rate 18 01/12/2021 8:32 AM EDT Oxygen Saturation 94% 01/12/2021 8:32 AM EDT Inhaled Oxygen Concentration - - Weight 77.1 kg (170 lb) 12/29/2020 1:10 PM EDT Height 160 cm (5' 3 ) 12/29/2020 1:10 PM EDT Body Mass Index 30.11 12/29/2020 1:10 PM EDT Plan of Treatment Health Maintenance Due Date Last Done Comments DXA SCAN 1945 TDAP/TD VACCINES (1 - Tdap) 02/05/1964 Pneumococcal Vaccine 50+ (1 of 1 - PCV) 1995 ZOSTER VACCINE (1 of 2) 1995 RSV Vaccine - Adults (1 - 1-dose 75+ series) 0 ANNUAL PHYSICAL 12/27/2020 COVID-19 Vaccine (2 - season) 04/12/202402/2021 INFLUENZA VACCINE 05/12/2025 Medical Devices Implanted Type Area Oven Baker Device Identifier Shelf Expiration Date Model / Serial / Lot Implant Implant Description:Right hip and ri ght knee Sut Contrl Tiss Stratafix Spiral Pdo Bidir 1 [id number] - [id number] Implanted:Qty : 1 on 12/29/2020 by Seymour Schmid MD at [facility] Implant Right: Hip [employer] J AND J [id number] / / Cmt Bone Simplex/P Full Dose 10/Pk - [id number] Implanted:Qty : 3 on 12/29/2020 by Seymour Schmid MD at [facility] Implant Right: Hip AMARJIT ISI [id number] / / Description:Each batch mixed with 3 G vancomycin and 3.6 G tobramycin Stem Fem/Hip Versys Advocate Nonvlign Std/Offst Sz11 120mm - [id number] Implanted:Qty : 1 on 12/29/2020 by Seymour Schmid MD at [facility] Implant Right: Hip [employer] [id number] 05/11/2026 [id number] / / [id number] Hd Fem/Hip [place] Cocr 07/25tpr 36mm Pls6 Strl - [id number] Implanted:Qty : 1 on 12/29/2020 by Seymour Schmid MD at [facility] Implant Right: Hip [employer] [id number] 01/09/2030 [id number] / / [id number] Liner Hip [place] Cnstr Allpoly Std Face 54mm - [id number] Implanted:Qty : 1 on 12/29/2020 by Seymour Schmid MD at [facility] Implant Right: Hip [employer] [id number] / / [id number] Additional Health Concerns Infection Onset Date 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 12/27/2020 Insurance MEDICARE A & B [place] MEDICAID [place] Advance Directives * CPR (Attempt to Resuscitate) (Latest Code Status on File) Date Activated Date Inactivated Comments 12/29/2020 9:03 PM 01/12/2021 6:04 PM Question Answer Comments Code Status (Patient has no pulse and is not breathing): CPR (Attempt to Resuscitate) Medical Interventions (Patie nt has pulse or is breathing): Full Level Of Support Discussed With: Patient Care Teams Application Lead Relationship Specialty Start Date End Date Lance Santillan MD [address] [facility] [address] [facility] [place] [id number] PCP - General Adolescent Medicine 12/27/20
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
[2025-04-07 20:51] LABS: Hematocrit 26.7 % (37.0-47.0); Hemoglobin 7.9 g/dL (12.2-16.2); Immature Granulocytes % 0.4 %; Mean Corpuscular HGB Conc 29.6 g/dL (31.8-35.4); Mean Corpuscular Hemoglobin 25.6 pg (27.0-31.2); Mean Corpuscular Volume 86.7 fl (81-99); Nucleated Red Blood Cells % 0 %; Platelet Count 202 K/mm3 (142-424); Red Blood Count 3.08 M/mm3 (4.20-5.40); Red Cell Distribution Width-SD 51.2 fL; White Blood Count 6.7 K/mm3 (4.8-10.8)
[2025-04-07 20:57] LABS: Magnesium 2.1 mg/dl (1.6-2.3)
[2025-04-07 21:03] LABS: Coronavirus 19, PCR Not Detected (NotDetected); Influenza A, PCR Not Detected (NotDetected); Influenza B, PCR Not Detected (NotDetected)
[2025-04-07 21:07] LABS: NT Pro Brain Natriuretic Pep. 3760 pg/mL (0-450)
[2025-04-07 21:14] LABS: Troponin I < 0.01 ng/ml (0.00-0.034)
[2025-04-07 21:32] LABS: Lactate Venous 1.0 mmol/L (0.4-2.0); VBG HCO3 25.5 mmol/L (23-30); VBG PH 7.27 mmol/L (7.31-7.41); VBG PO2 62.1 mmol/L (28-40)
[2025-04-07] MEDS: IPRATROPIUM/ALBUTEROL 3 ML NEB IH (21:32)
[2025-04-07] MEDS: BACITRACIN ZINC OINT 30GM TUBE TP (21:33)
[2025-04-07 21:35] LABS: VBG PCO2 57.2 mmol/L (35-51)
[2025-04-07 22:11] LABS: Albumin Level 3.6 g/dl (3.5-5.0); Chloride 110 mmol/L (98-107); Potassium 5.0 mmoL/L (3.5-5.1); Sodium 141 mmol/L (136-145)
[2025-04-07 22:14] LABS: Alanine Aminotransferase 8 U/L (12-78); Albumin/Globulin Ratio 1.2 (1.1-1.8); Alkaline Phosphatase 78 U/L (38-126); Anion Gap 10.0 mEq/L (5-15); Aspartate Amino Transferase 29 U/L (14-36); Bilirubin,Total 0.3 mg/dl (0.2-1.3); Blood Urea Nitrogen 30 mg/dl (7-17); Carbon Dioxide 26 mmol/L (22.0-30.0); Creatinine Clearance Estimated 41 mL/min (50-200); Creatinine,Serum 1.30 mg/dl (0.52-1.04); Estimated Glomerular Filt Rate 39 ml/min (>60); GFR (African American) 48 ML/MIN (>60); Globulin 3.1 g/dL (1.3-3.2); Total Protein,Serum 6.7 g/dl (6.3-8.2)
[2025-04-07 22:15] LABS: Calcium 8.2 mg/dl (8.4-10.2); Glucose 123 mg/dl (74-100)
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
[2025-04-08] VITALS (19 sets, daily range): BP systolic 101–139; BP diastolic 42–90; PULSE 54–82; RESP 14–24; TEMP 36.7–37.2; O2SAT 91–96; BMI 31.0
--- NOTE | 2025-04-08 00:08 | PC.NURSE ---
pt to icu unit via stretcher at [id number]
[2025-04-08] MEDS: IPRATROPIUM/ALBUTEROL 3 ML NEB IH ×4 (00:30→19:11)
[2025-04-08] MEDS: SODIUM CHLORIDE 3% 15ML NEB 3 ML IH (00:30)
[2025-04-08 02:01] LABS: Troponin I < 0.01 ng/ml (0.00-0.034)
[2025-04-08 02:11] LABS: Lactate Venous 0.8 mmol/L (0.4-2.0); VBG HCO3 22.4 mmol/L (23-30); VBG PCO2 36.9 mmol/L (35-51); VBG PH 7.40 mmol/L (7.31-7.41); VBG PO2 157.6 mmol/L (28-40)
[2025-04-08 05:42] LABS: Hematocrit 24.6 % (37.0-47.0); Hemoglobin 7.2 g/dL (12.2-16.2); Immature Granulocytes % 0.5 %; Mean Corpuscular HGB Conc 29.3 g/dL (31.8-35.4); Mean Corpuscular Hemoglobin 25.3 pg (27.0-31.2); Mean Corpuscular Volume 86.3 fl (81-99); Nucleated Red Blood Cells % 0 %; Platelet Count 145 K/mm3 (142-424); Red Blood Count 2.85 M/mm3 (4.20-5.40); Red Cell Distribution Width-SD 50.6 fL; Reticulocyte % (Auto) 1.4 % (0.9-3.2); White Blood Count 6.1 K/mm3 (4.8-10.8)
[2025-04-08 05:53] LABS: Chloride 111 mmol/L (98-107); Potassium 4.9 mmoL/L (3.5-5.1); Sodium 143 mmol/L (136-145)
[2025-04-08 05:55] LABS: Blood Urea Nitrogen 27 mg/dl (7-17); Creatinine Clearance Estimated 43 mL/min (50-200); Creatinine,Serum 1.30 mg/dl (0.52-1.04); Estimated Glomerular Filt Rate 39 ml/min (>60); GFR (African American) 48 ML/MIN (>60); Iron 26 ug/dL (37-170)
[2025-04-08 05:56] LABS: Anion Gap 8.9 mEq/L (5-15); Calcium 8.3 mg/dl (8.4-10.2); Carbon Dioxide 28 mmol/L (22.0-30.0); Glucose 109 mg/dl (74-100)
[2025-04-08 06:06] LABS: Total Iron Binding Capacity 287 ug/dL (265-497)
[2025-04-08 06:12] LABS: POC Glucose,Bedside 127 gm/dL (70-110)
[2025-04-08 06:15] LABS: Procalcitonin 0.068 ng/mL (0.0-2.0)
[2025-04-08 06:32] LABS: Ferritin 17.7 ng/ml (11.1-264)
[2025-04-08 06:46] LABS: Vitamin B12 290 pg/mL (239-931)
[2025-04-08 07:11] LABS: Folate 3.90 ng/mL
[2025-04-08] MEDS: BUMETANIDE 1MG/4ML VIAL 1 MG IV ×2 (09:15→16:03)
--- NOTE | 2025-04-08 10:19 | HMH.PTEV ---
Physical Therapy Evaluation Rehab PT IP Evaluation Start: 04/08/25 00:46 Freq: ONCE Status: Active Protocol: Document 04/08/25 09:48 BRIAN (Rec: 04/08/25 10:19 BRIAN [id number]) Subjective/History History History Per H&P: This is an 80-year-old female who is well-known to our service line and has a past medical history significant for anemia, angina, HFrEF, hypertension, heart murmur, GERD, depression, coronary artery disease, cancer, arrhythmia, anxiety, renal mass , hyperlipidemia, hypertension, nephrolithiasis, type 2 diabetes, COVID-19 infection, depression, hypothyroidism, atrial fibrillation, and aortic stenosis who presents with a chief complaint of shortness of breath. Due to patient's symptoms, she presented to the emergency room for evaluation. While in emergency room, patient's venous blood gas revealed an elevated CO2 and chest x-ray revealed bibasilar atelectasis/pulmonary fibrosis. Patient was placed on the BiPAP and hospital medicine was consulted for further management. During my evaluation of the patient, patient states that she has had a 3-day history of worsening shortness of breath. She normally wears home O2 at 2 L intermittently. She reports taking her Bumex as prescribed. She also states that she has been having some lower edema swelling and difficulty laying flat. She is currently denying any chest pain, lightheadedness, dizziness, fever, chills, rigors, nausea, vomiting, or diarrhea. Additional pertinent values obtained include a red blood cell count of 3.08, hemoglobin is 7.9, hematocrit 26.7, pH is 7.27, pCO2 of 57.2, bicarb of 25.5, chloride of 110, BUN of 30, creatinine 1.30, GFR of 39, blood glucose 123, calcium 8.2, and BNP of 3760. Subjective Subjective Pt reports she normally uses an electric w/c for all functional mobility. Pt sleeps in a lift chair rather than a bed. Pt is normally IND with all functional transfers. Pt's family lives next door and they check in on her daily. New diagnosis of No cancer in past 12 months? [facility] How much help from another person do you currently need... Turning from your None back to your side while in a flat bed without using bedrails? Moving from lying on None back to sitting on the side of a flat bed without using bedrails? Moving to and from a None bed to a chair ( including a wheelchair)? Standing up from a None chair using your arms? (e.g., wheelchair, bedside chair) Walking in hospital A lot room? Climbing 3-5 steps A lot with a railing? Mobility Score 20 Mobility Level [facility] Mobility 6 Walk 10 steps or more Mobility Calculator Rehab PT IP Eval Objective Appearance Patient Behavior Appropriate,Cooperative Patient Orientation Person,Situation Difficulty following none instructions Speech Pattern Clear Ambulation Patient Able to No Ambulate Balance Ability to Arise Able, uses arms to help Sitting Balance Steady, safe Standing Balance Steady, wide stance Transfers Bed Transfer Ability Supervision/Stand by Sit to Stand Bed Supervision/Stand by Transfer Ability Rehab PT IP prob,goals,plan Problems Date of Evaluation: 04/08/25 Rehab Potential Rehab Potential Innapropriate for Skilled Therapy Discharge Plan PT Discharge Plan Pt presents at her baseline with mobility. Pt able to demo bed mobility and functional STS with IND-SUP. PT most appropriate to d/c home with assistance provided by family as needed. PT recommending PT services to address impaired strength/endurance. Eval Complexity Eval Charge Codes 44208 - Moderate Complexity PHYSICIAN CERTIFICATION: I certify the specified therapy services for Lian lBiss are required, authorized, and reviewed every 30 days.
--- NOTE | 2025-04-08 10:42 | HMH.OTEV ---
OT Inpatient Evaluation Rehab OT IP Evaluation Start: 04/08/25 00:46 Freq: ONCE Status: Active Protocol: Document 04/08/25 09:50 YOKO (Rec: 04/08/25 10:42 YOKO [id number]) Rehab OT IP Assessment Subjective History Per HPI narrative: 80-year-old female with a history of COPD and heart failure presents to the emergency department with complaints of shortness of breath. Patient wears 2 L nasal cannula intermittently as needed at home. Reports has been taking all of her medications including Bumex as prescribed. She denies fevers, nausea, vomiting, diarrhea. She also denies chest pain . Subjective They live pretty close. Pt supine in bed when therapy entered room. Pt orient x3. pt agreed to initial OT eval this AM. Pt reports they live 50 ft from grandson and mx family members check on her daily. Pt reports she normally uses an electric w/c for all functional mobility. Pt sleeps in a lift chair rather than a bed. Pt is normally IND with all functional transfers. Pt reports ind in ADLs and IADLs with some assist needed at times. Pt reports they do not drive and have family and a transportation service that will drive them to grocery and apts. Pt reports they are norm on 2 L O2 when needed. Pt reports they have a ramp entrance. Pt reports they have shower chair, but typically washes off with sponge bath due to mx sores on LE at times and fear of falling. Pt agreed to FM task. Pt went from supine to EOB with SUP. Pt then completed STS with SUP. Pt then sat back on EOB and went to supine position with SBA. Pt left with call light and all other needs within reach and nursing present upon therapy exiting room. Objective Patient Orientation Person,Place,Birthday Right Upper WFL Extremity Gross ROM Left Upper Extremity WFL Gross ROM Bed Mobility bed mobility-scooting,bed mobility - supine/sit Assist Level Supervision/Stand by Transfer Training Sit/Stand Transfer Assist Level Supervision/Stand by Chair Transfer Sit to/from Ambulatory Technique Chair Transfer None Assistive Devices Decrease in No Endurance Rehab OT IP prob,goals,plan Problems Date of Evaluation: 04/08/25 Rehab Potential Rehab Potential Innapropriate for Skilled Therapy Discharge Plan OT Discharge Plan At this time, Pt presents at her baseline with functional mobility and transfers and occupational performance. Pt most appropriate to d/c home with assistance provided by family as needed once medically stable. OT recommending OT services to address impaired strength/endurance further for improvement in QOL and to reach optimal occupational performance . Eval Complexity Eval Charge Codes 00515 - Moderate Complexity PHYSICIAN CERTIFICATION: I certify the specified therapy services for Lian Bliss are required, authorized, and reviewed every 30 days.
--- NOTE | 2025-04-08 11:14 | SW/DCPLANNER ---
Addendum entered by Day Wilkes 04/08/25 15:24: [facility] is able to accept patient. Rick IZAGUIRRE [facility] Superintendent Original Note: Spoke with patient regarding home health services once she is medically stable and ready for discharge. Patient stated that she was using [facility] and that they stopped coming. Spoke with a family member and she stated that she believes that the patient was refusing their services. Stated to the family member that it could be hard to sit the patient up with home health since she is refusing their services. I faxed patient's information to [facility] and will update once i hear back if they can accept patient or not. Rick Ambrocio
--- NOTE | 2025-04-08 11:29 | CA_ITS ---
APPROVED REPORT EXAM: Comprehensive 2D, Doppler, and color-flow Echocardiogram Lead Person: Agnes Euceda RT(R) Ht: 5 ft 2 in Wt: 175lbs BSA: 1.81 BP: 132/48 mmHg Indications: ordered as limited, CHF, SOA, hx mod . 2D Dimensions EF AP4 65.80 % GL Strain -19.3 % M-Mode Dimensions RVDd 3.95 cm (0.9-2.6) LVDd 5.09 cm (3.5-5.7) LVDs 3.76 cm (3.5-5.7) IVSd 0.99 cm (0.6-1.1) PWd 0.99 cm (0.6-1.1) EF (Teich) 51.00% FS 26.10% EDV (Teich) 123.20 mL ESV (Teich) 60.40 mL LV Diastology E Decel Time 200 (160-240 msec) E/A Ratio 1.1 Aortic Valve ABHI Index 0.61 cm2/m2 AoV Peak Pravin. 376.0 (50-130 cm/s) AO Peak GR. 56.60 mmHg AO Mean GR. 27.50 (<5 mmHg) AO VTI 91.7 (18-25 cm) ABHI (VTI) 1.12 (2.5-4.5 cm2) Mitral Valve MV E Max Pravin. 142.0 (40-130 cm/s) MV A Velocity 133.0 (40-130 cm/s) E/A Ratio 1.07 MV PHT 59.0 ms Other Information Study Quality: Fair Conclusion This is a limited TTE to evaluate for LV systolic function and severity of aortic stenosis. Limited windows are obtained. The left ventricle is normal in size. There is increased LV wall thickness. There is low-normal global LV systolic function. LVEF is 50%. Moderate aortic stenosis is present. ABHI by continuity equation is 1.2 cm2. Peak velocity 3.7 m/s. Mean AV gradient is 27 mmHg. Max AV gradient is 57 mmHg. Compared to prior study from 12/21/2024, the LV systolic function is unchanged. The moderate severity of is unchanged, but the peak velocity/gradients are slightly higher on this TTE. Electronically signed by : Joceline Smyth MD 04/08/2025 18:55:23
--- NOTE | 2025-04-08 11:44 | EXP.ACUTE.PN ---
Subjective *Date: 04/08/25 *Time: 11:44 Interval history: Patient resting in bed this morning. States that she feels very tired. Denies chest pain, abdominal pain. Patient appears to be chronically anemic, denies coffee-ground emesis, dark stools, bright red bleeding per rectum. Will give dose of Venofer IV. Will continue to diurese Bumex 1 mg twice daily. Pulmonology consulted for further respiratory recommendations. Patient is back to baseline 2 L nasal cannula. Patient does have venous stasis wounds bilateral lower extremity, wound care consulted. Medical Exam Vital signs and Labs for Last 24 Hours: Vital Signs Temp Pulse Pulse Resp BP BP Pulse Ox 04/08/25 11:18 66 04/08/25 11:18 68 04/08/25 11:18 95 04/08/25 11:00 04/08/25 10:01 98.3 F 60 17 116/90 96 04/08/25 08:27 04/08/25 08:00 61 04/08/25 08:00 112/62 04/08/25 08:00 63 20 92 L 04/08/25 08:00 92 L 04/08/25 07:01 59 L 20 94 L 04/08/25 07:01 102/46 L 04/08/25 07:00 04/08/25 06:38 82 04/08/25 06:38 65 04/08/25 06:38 94 L 04/08/25 06:00 63 16 125/63 94 L 04/08/25 05:00 04/08/25 04:00 54 L 14 110/50 L 93 L 04/08/25 04:00 55 L 14 110/50 L 92 L 04/08/25 04:00 54 L 04/08/25 03:00 04/08/25 02:55 94 L 04/08/25 02:00 57 L 18 101/57 L 94 L 04/08/25 02:00 57 L 18 101/57 L 94 L 04/08/25 02:00 93 L 04/08/25 01:00 04/08/25 00:30 62 18 04/08/25 00:30 62 04/08/25 00:30 56 L 04/08/25 00:30 95 04/08/25 00:08 98.5 F 62 24 123/81 91 L 04/07/25 23:46 60 04/07/25 23:24 99.3 F 70 14 132/107 H 04/07/25 23:16 94 L 04/07/25 23:15 66 20 96 04/07/25 23:12 04/07/25 23:00 70 14 132/107 H 97 04/07/25 22:31 29 H 135/55 L 04/07/25 22:00 131/73 04/07/25 21:35 131/60 04/07/25 21:35 73 19 94 L 04/07/25 21:30 14 04/07/25 21:15 68 16 96 04/07/25 21:01 156/60 H 04/07/25 20:32 75 04/07/25 20:31 152/67 H 04/07/25 20:30 70 12 96 04/07/25 20:25 99.2 F 75 14 155/61 H 95 O2 Del Method O2 Flow Rate FiO2 04/08/25 11:18 04/08/25 11:18 04/08/25 11:18 Nasal Cannula 2 04/08/25 11:00 Nasal Cannula 2 04/08/25 10:01 Nasal Cannula 2 04/08/25 08:27 Nasal Cannula 2 04/08/25 08:00 04/08/25 08:00 04/08/25 08:00 04/08/25 08:00 Nasal Cannula 2 04/08/25 07:01 04/08/25 07:01 04/08/25 07:00 Nasal Cannula 2 04/08/25 06:38 04/08/25 06:38 04/08/25 06:38 Nasal Cannula 2 04/08/25 06:00 Nasal Cannula 2 04/08/25 05:00 Nasal Cannula 2 04/08/25 04:00 Nasal Cannula 2 04/08/25 04:00 Nasal Cannula 2 04/08/25 04:00 04/08/25 03:00 Nasal Cannula 2 04/08/25 02:55 Nasal Cannula 2 04/08/25 02:00 BiPAP 04/08/25 02:00 BiPAP 04/08/25 02:00 BiPAP 04/08/25 01:00 BiPAP 04/08/25 00:30 04/08/25 00:30 04/08/25 00:30 04/08/25 00:30 BiPAP 04/08/25 00:08 Nasal Cannula 2 04/07/25 23:46 04/07/25 23:24 BiPAP 04/07/25 23:16 Nasal Cannula 2 04/07/25 23:15 04/07/25 23:12 30 04/07/25 23:00 04/07/25 22:31 04/07/25 22:00 04/07/25 21:35 04/07/25 21:35 04/07/25 21:30 04/07/25 21:15 04/07/25 21:01 04/07/25 20:32 04/07/25 20:31 04/07/25 20:30 04/07/25 20:25 Nasal Cannula Intake and Output 04/07/25 04/08/25 04/08/25 23:59 07:59 15:59 Intake Total 120 / 120 Output Total 0 / 0 400 / 400 Balance 0 / 0 -280 / -280 Intake: Intake, Oral Amount 120 / 120 Output: Output, Urine Amount 0 / 0 400 / 400 Other: Number of Unmeasured Voids 1 0 Number of Bowel Movements 1 Weight 74.843 kg 79.5 kg Patient Weight 04/08/25 23:59 Weight 79.5 kg Laboratory Results - last 24 hr 04/07/25 20:19: WBC 6.7, RBC 3.08 L, Hgb 7.9 L, Hct 26.7 L, MCV 86.7, MCH 25.6 L, MCHC 29.6 L, RDW 16.4, Plt Count 202, MPV 12.7 H, Neut % (Auto) 72.3, Lymph % (Auto) 14.6, [place] % (Auto) 7.1, Eos % (Auto) 5.3, Baso % (Auto) 0.3, Neut # (Auto) 4.9, Lymph # (Auto) 1.0, [place] # (Auto) 0.5, Eos # (Auto) 0.4, Baso # (Auto) 0.0, Sodium 141, Potassium 5.0, Chloride 110 H, Carbon Dioxide 26, Anion Gap 10.0, BUN 30 H, Creatinine 1.30 H, Estimated Creat Clear 41, Estimated GFR 39 L, Est GFR ( Amer) 48 L, Glucose 123 H, Lactate 1.0, Calcium 8.2 L, Magnesium 2.1, Total Bilirubin 0.3, AST 29, ALT 8 L, Alkaline Phosphatase 78, Troponin I < 0.01, NT-Pro-B Natriuret Pep 3760 H, Total Protein 6.7, Albumin 3.6, Globulin 3.1, Albumin/Globulin Ratio 1.2 04/07/25 21:00: VBG pH 7.27 L, VBG pCO2 57.2 H, VBG pO2 62.1 H, VBG HCO3 25.5, VBG Total CO2 27.3 H, VBG O2 Saturation 87.1 H, VBG Base Excess -1.5, VBG Lactic Acid 1.0, SARS-CoV-2 (PCR) Not detected, Influenza A Untype (PCR) Not detected, Influenza Type B (PCR) Not detected 04/08/25 00:12: Troponin I < 0.01 04/08/25 02:05: VBG pH 7.40, VBG pCO2 36.9, VBG pO2 157.6 H, VBG HCO3 22.4 L, VBG Total CO2 23.5, VBG O2 Saturation 99.2 H, VBG Base Excess -2.4, VBG Lactic Acid 0.8 04/08/25 05:15: WBC 6.1, RBC 2.85 L, Hgb 7.2 L, Hct 24.6 L, MCV 86.3, MCH 25.3 L, MCHC 29.3 L, RDW 16.2, Plt Count 145 D, MPV 12.7 H, Neut % (Auto) 71.3, Lymph % (Auto) 15.7, [place] % (Auto) 7.8, Eos % (Auto) 4.2, Baso % (Auto) 0.5, Neut # (Auto) 4.4, Lymph # (Auto) 1.0, [place] # (Auto) 0.5, Eos # (Auto) 0.3, Baso # (Auto) 0.0, Retic Count (auto) 1.4, Sodium 143, Potassium 4.9, Chloride 111 H, Carbon Dioxide 28, Anion Gap 8.9, BUN 27 H, Creatinine 1.30 H, Estimated Creat Clear 43, Estimated GFR 39 L, Est GFR ( Amer) 48 L, Glucose 109 H, Calcium 8.3 L, Iron 26 L, TIBC 287, Iron Saturation 9.21965 L, Ferritin 17.7 D, Vitamin B12 290, Folate 3.90, Procalcitonin 0.068 04/08/25 06:00: POC Glucose 127 H I & O for Labs for Last 24 Hours: Intake & Output 04/05/25 04/06/25 04/07/25 04/08/25 23:59 23:59 23:59 23:59 Intake Total 120 / 120 Output Total 0 / 0 400 / 400 Balance 0 / 0 -280 / -280 Weight 74.843 kg 79.5 kg Constitutional: Present no acute distress, chronically ill appearing and cooperative Head: Present atraumatic Eyes: Present as per HPI ENT: Present normal exam Neck: Present normal inspection and full ROM Respiratory: Present wheezes (Expiratory), crackles (Bilateral bases), normal respiratory effort, able to speak in complete sentences and symmetric chest movement Cardiac: Present Reg Rate and Rhythm and Audible Murmur GI: Present soft and normal bowel sounds; Absent distention or tenderness Rectal (female): Present deferred (female): Present deferred Extremities: Present full ROM and normal capillary refill; Absent edema or calf tenderness Comment:: Venous stasis wounds bilateral lower extremities, draining Skin: Present dry and wounds Comment:: Scattered scratches, bruising, Neuro: Present Weakness, oriented x 3 and moves all extremities Assessment and Plan *Assessment and plan (1) Acute on chronic systolic heart failure: Status: Acute Category: Medical Code(s): I50.23 - Acute on chronic systolic (congestive) heart failure (2) Acute on chronic respiratory failure with hypoxia and hypercapnia: Status: Acute Category: Medical Code(s): J96.21 - Acute and chronic respiratory failure with hypoxia; J96.22 - Acute and chronic respiratory failure with hypercapnia (3) COPD exacerbation: Status: Acute Category: Medical Code(s): J44.1 - Chronic obstructive pulmonary disease with (acute) exacerbation (4) CKD (chronic kidney disease): Status: Acute Qualifiers: Chronic kidney disease stage: unspecified stage Qualified Code(s): N18.9 - Chronic kidney disease, unspecified Category: Medical Code(s): N18.9 - Chronic kidney disease, unspecified (5) Hypervolemia: Status: Acute Qualifiers: Hypervolemia type: unspecified Qualified Code(s): E87.70 - Fluid overload, unspecified Category: Medical Code(s): E87.70 - Fluid overload, unspecified (6) Elevated brain natriuretic peptide (BNP) level: Status: Acute Category: Medical Code(s): R79.89 - Other specified abnormal findings of blood chemistry (7) Venous stasis ulcer: Status: Acute Category: Medical Code(s): I83.009 - Varicose veins of unspecified lower extremity with ulcer of unspecified site; L97.909 - Non-pressure chronic ulcer of unspecified part of unspecified lower leg with unspecified severity Plan Ms. Bliss is a 80-year-old female who came to the emergency department overnight due to respiratory distress and hypoxic respiratory failure. She does wear 2 L of oxygen as needed at baseline. She has a substantial medical history of chronic kidney disease, chronic respiratory failure, A-fib, lymphedema, aortic stenosis, venous stasis wounds bilateral lower extremities, hypothyroidism, anxiety, hyperlipidemia, hypothyroidism, HFrEF, COPD, and GERD. Patient states that she has been feeling worsening shortness of breath for approximately 3 days, she reports taking her Bumex 1 mg daily as prescribed. VBG was significant for pH of 7.27, pCO2 57.2, bicarb 25.5. Elevated kidney function BUN of 30, creatinine 1.30. Elevated BNP of 3760. Patient was initially placed on BiPAP and repeat VBG normalized. Patient transition to baseline of 2 L nasal cannula. The ER physician consulted hospital medicine for admission, plan of care was as follows: #Acute on chronic systolic heart failure, reduced EF of 45% #COPD exacerbation #Elevated BNP ? Patient currently on baseline 2 L nasal cannula, O2 saturation remains above 92%. ? Pulmonary consulted for further recommendations. DuoNebs every 6 hours, holding on steroids due to allergy. Sputum culture pending. ? Levaquin 500 milligrams daily. Procalcitonin 0.068. ? Chest x-ray shows poor lung expansion, bibasilar atelectasis, and pulmonary fibrosis. No leukocytosis, blood cultures pending. ? Patient BNP on admission 3760, crackles noted in lung bases. Increased Bumex 1 mg to twice daily. Patient is down approximately 1 L since admission, no edema noted in bilateral lower extremities. ? Echo in December 2024 shows LVEF 45 to 50%. Repeat limited echo pending. #Paroxysmal A-fib: Continue Eliquis 5 mg twice daily, aspirin 81 mg daily, metoprolol 25 mg daily #CKD: Patient baseline creatinine 1.3, continue to monitor. Continue Jardiance 10 mg daily. #Venous stasis ulcers ? Patient has bilateral lower extremity draining venous stasis ulcers. Patient states she did have home health coming, but she refused treatment. ? She is open to resuming home health. Wound consult pending. #Acute on chronic anemia:Patient hemoglobin 7.2, hematocrit 24.6. Patient does follow with hematology, iron 26, iron saturation 9.05. Ferritin low normal. Will transfuse Venofer IV. #Diabetes mellitus, type II: ACHS fingersticks, SSI. #Mood disorder: Continue sertraline 150 mg daily, Remeron 15 mg at bedtime, BuSpar 7.5 mg twice daily #GERD: Continue pantoprazole 40 mg at bedtime, continue Pepcid 20 mg twice daily #Hypothyroidism: Continue levothyroxine 25 mcg daily Full code Ambulate as tolerated VTE?Eliquis Diabetic diet
[2025-04-08 11:50] LABS: POC Glucose,Bedside 102 gm/dL (70-110)
[2025-04-08] MEDS: IRON SUCROSE COMPLEX 200 MG in 0.9 % SODIUM CHLORIDE 100 ML 220 MG IV (12:37)
--- OUTSIDE RECORDS SUMMARY | 2025-04-08 14:25 | XMS_ITS | Encounter Summary ---
Author Organization [employer] ([place], [place], [place], [place]) Address [address] [place] [address] Care Team Providers Care Stock Manager Name Role Phone Ted Matute MD Primary Care Provider [phone]- [phone] Ted Matute MD Unavailable [phone] Encounter Details Date Type Department Care Team (Late st Contact Info) Description 09/28/2024 Lab Requisition [facility] [address] [place] [address] Maria Luz Johnson, POUNCER [address] [phone] Sepsis, unspecified organism (HCC) Social History Tobacco [...] (HCC) documented in this encounter Care Teams Stock Manager Relationship Specialty Start Date End Date Ted Matute MD [facility] [address] [place] [id number] PCP - General Family Medicine 05/20/23 Ted Matute MD [address] [facility] [address] [place] [phone] Referring Physician Family Medicine 05/20/23 documented as of this encounter
--- OUTSIDE RECORDS SUMMARY | 2025-04-08 14:25 | XMS_ITS | Clinical Summary ---
Author Organization [facility] Address [address] [place] [address] Care Team Providers Care Frame Bender Name Role Phone Ted Matute MD Primary Care Provider [phone] Family History Medical History Relation Name Comments [...] r (1 - 1-dose 75+ series) 02/05/2020 [id number] Vaccine (1 - 20 24-25 season) 2024 [...] this topic Insurance [place] MEDICARE Care Teams Frame Bender Relationship Specialty Start Date End Date Ted Matute MD [facility] [place] [address] [facility] - General 12/23/20
--- OUTSIDE RECORDS SUMMARY | 2025-04-08 14:25 | XMS_ITS | Referral Summary ---
Author Organization [employer] ([place], [place], [place], [place]) Address [address] [place] [address] Care Team Providers Care Heel Cementer Name Role Phone Ted Matute MD Primary Care Provider [phone] Ted Matute MD Unavailable [phone] Social History Tobacco Use Types Packs/Day Years Used Date Smoking Tobacco: Never Assessed Comments Unknown Sex and Gender Information Value Date Recorded Sex Assigned at Not on file Legal Sex Female 3:57 PM CDT Gender Identity Not on file Sexual Orientation Not on file Plan of Treatment Not on file Insurance MEDICAID OF [place] [facility] Care Teams Heel Cementer Relationship Specialty Start Date End Date Ted Matute MD [address] [place] [id number] PCP - General Family Medicine 05/20/23 Ted Matute MD [address] [facility] [address] [place] [phone] Referring Physician Family Medicine 05/20/23
--- OUTSIDE RECORDS SUMMARY | 2025-04-08 14:25 | XMS_ITS | Encounter Summary ---
Author Organization [employer] ([place], [place], [place], [place]) Address [address] [place] [address] Care Team Providers Care Bell Ringer Name Role Phone Ted Matute MD Primary Care Provider [phone] Ted Matute MD Unavailable [phone] Encounter Details Date Type Department Care Team (Late st Contact Info) Description 09/28/2024 Outside Orders [facility] [address] [place] [address] Maria Luz Johnson D, ASSISTANT FOREMAN [address] [phone] Systemic infection (HCC) (Primary Dx) Social History [...] Growth Enterobacter cloacae(A) 10/02/2024 7:43 AM EST [facility] Result Heavy Growth Staphylococcus aureus(A) 10/02/2024 7:43 AM EST [facility] Result Heavy Growth Streptococcus agalactiae(A) 10/02/2024 7:43 AM [facility] Result Heavy Growth Corynebacterium species(A) 10/02/2024 7:43 AM [facility] Comment: No further identification No susceptibility performed Gram Stain Result Moderate gram positive cocci in pairs 10/02/2024 7:43 AM EST [facility] Gram Stain Result Few gram positive rods 10/02/2024 7:43 AM EST [facility] Gram Stain Result Rare WBCs 025 7:43 AM [facility] Wound ABDOMEN / Unknown Collection / [...] aureus Vancomycin 1: Susceptible Maria Luz Johnson ASSISTANT FOREMAN MICROBIOLOGY - GENERAL ORD ERABLES Final Result [facility] [address] [place] [address], [facility] [phone] [facility] [address] [place] [address], [facility] [phone] documented in this encounter Visit Diagnoses Diagnosis Systemic infection (HCC)- Primary Unspecified septicemia documented in this encounter Care Teams Bell Ringer Relationship Specialty Start Date End Date Ted Matute MD [address] [facility] [address] [place] [phone] PCP - General Family Medicine 05/20/23 Ted Matute MD [address] [facility] [address] [place] [phone] Referring Physician Family Medicine 05/20/23 documented as of this encounter
--- OUTSIDE RECORDS SUMMARY | 2025-04-08 14:25 | XMS_ITS | Clinical Summary ---
Author Organization [employer] ([place], [place], [place], [place]) Address [address] [place] [address] Care Team Providers Care Bridge Contractor Name Role Phone Ted Matute MD Primary Care Provider [phone] Ted Matute MD Unavailable [phone] Social History Tobacco Use Types Packs/Day Years [...] Vaccine (#1) 2025 Insurance [place] OF [place] [facility] Care Teams Bridge Contractor Relationship Specialty Start Date End Date Ted Matute MD [address] [facility] [address] [place] [id number] PCP - General Family Medicine 05/20/23 Ted Matute MD [address] [facility] [address] [place] [phone] Referring Physician Family Medicine 05/20/23
--- OUTSIDE RECORDS SUMMARY | 2025-04-08 14:25 | XMS_ITS | Clinical Summary ---
Author Organization [facility] Address [address] [place] [address] Care Team Providers Care Manager Universal Name Role Phone Lance Santillan MD Primary Care Provider [phone] Allergies Active Allergy Reactions Criticality Noted Date [...] VACCINE 05/12/2025 Medical Devices Implanted Type Area Director Clinical Research Device Identifier Shelf Expiration Date Model / Serial / Lot Implant Implant Description:Right hip and ri ght knee Sut Contrl Tiss Stratafix Spiral Pdo Bidir 1 [id number] - [id number] Implanted:Qty : 1 on 12/29/2020 by Seymour Schmid MD at [facility] Implant Right: Hip [employer] J AND J [id number] / / Cmt Bone Simplex/P Full Dose 10/Pk - [id number] Implanted:Qty : 3 on 12/29/2020 by Seymour Schmid MD at [facility] Implant Right: Hip AMARJIT ISI [id number] / / Description:Each batch mixed with 3 G vancomycin and 3.6 G tobramycin Stem Fem/Hip Versys Advocate Nonvlign Std/Offst Sz11 120mm - [id number] Implanted:Qty : 1 on 12/29/2020 by Seymour Schmid MD at [facility] Implant Right: Hip [employer] [id number] 05/11/2026 [id number] / / [id number] Hd Fem/Hip [place] Cocr 07/25tpr 36mm Pls6 Strl - [id number] Implanted:Qty : 1 on 12/29/2020 by Seymour Schmid MD at [facility] Implant Right: Hip [employer] [id number] 01/09/2030 [id number] / / [id number] Liner Hip Halifax Cnstr Allpoly Std Face 54mm - [id number] Implanted:Qty : 1 on 12/29/2020 by Seymour Schmid MD at [facility] Implant Right: Hip [employer] [id number] / / [id number] Additional Health Concerns Infection Onset Date Last [...] Of Support Discussed With: Patient Care Teams Manager Universal Relationship Specialty Start Date End Date Lance Santillan MD [address] [facility] [address] [facility] [place] [address] PCP - General Adolescent Medicine 12/27/20
--- OUTSIDE RECORDS SUMMARY | 2025-04-08 14:25 | XMS_ITS | Clinical Summary ---
Author Organization [facility] Address [address] [facility] [place] [address] Phone Care Team Providers Care Boilermaker Fitter Name Role Phone Unavailable Unavailable Conditions or Problems No information available. Medications No information available. Medications Administered No information available. Allergies, Adverse Reactions, Alerts No information available. Results No information available. Plan of Care No information available. Procedures No information available. Vital Signs No information available. Immunizations No information available. Advance Directives No information available.
[2025-04-08 16:20] LABS: POC Glucose,Bedside 94 gm/dL (70-110)
[2025-04-08 19:04] LABS: Microscopic, Urine URINE MICROSCOPIC (MICROSCOPIC)
[2025-04-08 19:05] LABS: Bilirubin,Urine Negative (Negative); Color,Urine YELLOW (Yellow); Glucose,Urine (UA) TRACE (Negative); Ketones,Urine Negative (Negative); Leukocyte Esterase,Urine TRACE (Negative); PH,Urine 5.5 (5.0-8.5); Protein,Urine Negative (Negative); Specific Gravity, Urine 1.010 (1.005-1.030); Urobilinogen,Urine 0.2 EU/dl (0.2)
[2025-04-08 19:18] LABS: Bacteria,Urine 4+ /lpf
[2025-04-08] MEDS: APIXABAN 5MG TABLET 5 MG PO (20:18)
[2025-04-08] MEDS: MIRTAZAPINE 15 MG TABLET PO (20:19)
[2025-04-08] MEDS: PANTOPRAZOLE 40MG TABLET 40 MG PO (20:19)
[2025-04-08] MEDS: FAMOTIDINE 20MG TABLET 20 MG PO (20:19)
[2025-04-08] MEDS: BUSPIRONE HCL 5 MG TABLET 7.5 MG PO (20:20)
[2025-04-08 20:45] LABS: POC Glucose,Bedside 137 gm/dL (70-110)
[2025-04-08] MEDS: ACETAMINOPHEN 325MG TAB 650 MG PO (22:48)
[2025-04-09] VITALS (8 sets, daily range): BP systolic 111–124; BP diastolic 54–82; PULSE 63–79; RESP 18–24; TEMP 36.6–37.1; O2SAT 86–99; BMI 30.1
[2025-04-09] MEDS: IPRATROPIUM/ALBUTEROL 3 ML NEB IH ×3 (00:45→11:36)
--- NOTE | 2025-04-09 05:06 | PC.NURSE ---
Pt. was transferred from the ICU to Med/surg at change of shift. Pt. was admitted for CHF exacerbation. Pt. is alert and orientated x 4. Pt. is on oxygen 2-3 liters per NC. Pt. has been anxious at times. Pt. very short of breath with any movements. Pt. attempted to get up to the BSC at start of this shift and Pt. was quite respiratory distressed, Pt was on 2 liters of oxygen and it was turned up to 3 liters. Pt. has BLE ulcers. Legs wrapped in dressings. Dressing clean, dry and intact. BLE extremities swollen . Pt. getting oral antibiotics. Personal items and call light in reach. Bed in low and locked position. safety measures in place.
[2025-04-09 06:11] LABS: POC Glucose,Bedside 101 gm/dL (70-110)
[2025-04-09 06:12] LABS: Hematocrit 26.7 % (37.0-47.0); Hemoglobin 7.6 g/dL (12.2-16.2); Immature Granulocytes % 0.7 %; Mean Corpuscular HGB Conc 28.5 g/dL (31.8-35.4); Mean Corpuscular Hemoglobin 24.6 pg (27.0-31.2); Mean Corpuscular Volume 86.4 fl (81-99); Nucleated Red Blood Cells % 0 %; Platelet Count 174 K/mm3 (142-424); Red Blood Count 3.09 M/mm3 (4.20-5.40); Red Cell Distribution Width-SD 50.9 fL; White Blood Count 5.7 K/mm3 (4.8-10.8)
[2025-04-09 06:22] LABS: Chloride 104 mmol/L (98-107); Sodium 138 mmol/L (136-145)
[2025-04-09 06:23] LABS: Potassium 4.3 mmoL/L (3.5-5.1)
[2025-04-09 06:25] LABS: Blood Urea Nitrogen 23 mg/dl (7-17); Creatinine Clearance Estimated 42 mL/min (50-200); Creatinine,Serum 1.30 mg/dl (0.52-1.04); Estimated Glomerular Filt Rate 39 ml/min (>60); GFR (African American) 48 ML/MIN (>60)
[2025-04-09 06:26] LABS: Anion Gap 5.3 mEq/L (5-15); Calcium 8.3 mg/dl (8.4-10.2); Carbon Dioxide 33 mmol/L (22.0-30.0); Glucose 97 mg/dl (74-100)
[2025-04-09] MEDS: METOPROLOL SUCCINATE XL 25MG TABLET 25 MG PO (09:03)
[2025-04-09] MEDS: LEVOTHYROXINE 25MCG (0.025MG) TAB 25 MCG PO (09:04)
[2025-04-09] MEDS: APIXABAN 5MG TABLET 5 MG PO (09:04)
[2025-04-09] MEDS: SERTRALINE 100MG TABLET 150 MG PO (09:04)
[2025-04-09] MEDS: BUMETANIDE 1MG/4ML VIAL 1 MG IV (09:04)
[2025-04-09] MEDS: BUSPIRONE HCL 5 MG TABLET 7.5 MG PO (09:04)
[2025-04-09] MEDS: ASPIRIN EC 81MG TABLET 81 MG PO (09:07)
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
[2025-04-09] MEDS: DOXYCYCLINE HYCL 100 MG TABLET PO (11:13)
[2025-04-09 11:24] LABS: POC Glucose,Bedside 111 gm/dL (70-110)
--- NOTE | 2025-04-09 11:56 | EXP.DC.SUM ---
General Admission date:: 04/07/25 HPI HPI HPI: This is an 80-year-old female who is well-known to our service line and has a past medical history significant for anemia, angina, HFrEF, hypertension, heart murmur, GERD, depression, coronary artery disease, cancer, arrhythmia, anxiety, renal mass, hyperlipidemia, hypertension, nephrolithiasis, type 2 diabetes, COVID-19 infection, depression, hypothyroidism, atrial fibrillation, and aortic stenosis who presents with a chief complaint of shortness of breath. Due to patient's symptoms, she presented to the emergency room for evaluation. While in emergency room, patient's venous blood gas revealed an elevated CO2 and chest x-ray revealed bibasilar atelectasis/pulmonary fibrosis. Patient was placed on the BiPAP and hospital medicine was consulted for further management. During my evaluation of the patient, patient states that she has had a 3-day history of worsening shortness of breath. She normally wears home O2 at 2 L intermittently. She reports taking her Bumex as prescribed. She also states that she has been having some lower edema swelling and difficulty laying flat. She is currently denying any chest pain, lightheadedness, dizziness, fever, chills, rigors, nausea, vomiting, or diarrhea. Additional pertinent values obtained include a red blood cell count of 3.08, hemoglobin is 7.9, hematocrit 26.7, pH is 7.27, pCO2 of 57.2, bicarb of 25.5, chloride of 110, BUN of 30, creatinine 1.30, GFR of 39, blood glucose 123, calcium 8.2, and BNP of 3760. Hospital Course Hospital Course Hospital Course: Patient states Ovidio makes her nose burn, will trial Symbicort. Exam Data for Last 24 hours Vital signs and Labs for Last 24 Hours: Temp Pulse Resp BP Pulse Ox O2 Del Method O2 Flow Rate 97.9 F 73 20 118/63 96 Nasal Cannula 3 04/09/25 08:00 04/09/25 11:37 04/09/25 08:00 04/09/25 08:00 04/09/25 11:37 04/09/25 11:37 04/09/25 11:37 FiO2 30 04/07/25 23:12 Laboratory Results - last 24 hr 04/07/25 18:19: Urine Color Yellow, Urine Appearance Clear, Urine pH 5.5, Ur Specific Trent 1.010, Urine Protein Negative, Urine Glucose (UA) Trace, Urine Ketones Negative, Urine Blood Negative, Urine Nitrate Positive A, Urine Bilirubin Negative, Urine Urobilinogen 0.2, Ur Leukocyte Esterase Trace, Urine RBC None, Urine WBC 3-5, Ur Squamous Epith Cells 3-5, Urine Bacteria 4+ 04/08/25 16:13: POC Glucose 94 04/08/25 20:31: POC Glucose 137 H 04/09/25 05:36: POC Glucose 101 04/09/25 05:46: WBC 5.7, RBC 3.09 L, Hgb 7.6 L, Hct 26.7 L, MCV 86.4, MCH 24.6 L, MCHC 28.5 L, RDW 16.2, Plt Count 174, MPV 12.9 H, Neut % (Auto) 74.6, Lymph % (Auto) 13.1, [place] % (Auto) 7.3, Eos % (Auto) 3.8, Baso % (Auto) 0.5, Neut # (Auto) 4.3, Lymph # (Auto) 0.8, [place] # (Auto) 0.4, Eos # (Auto) 0.2, Baso # (Auto) 0.0, Sodium 138, Potassium 4.3, Chloride 104, Carbon Dioxide 33 H, Anion Gap 5.3, BUN 23 H, Creatinine 1.30 H, Estimated Creat Clear 42, Estimated GFR 39 L, Est GFR ( Amer) 48 L, Glucose 97, Calcium 8.3 L 04/09/25 11:15: POC Glucose 111 H I & O for Last 24 hours: Intake & Output 04/06/25 04/07/25 04/08/25 04/09/25 23:59 23:59 23:59 23:59 Intake Total 430 / 680 490 / 490 Output Total 0 / 0 1500 / 1500 900 / 900 Balance 0 / 0 -1070 / -820 -410 / -410 Weight 74.843 kg 79.5 kg 77.111 kg Microbiology Reports for the Last 24 Hours: Microbiology 04/07/25 18:19 Urine,Clean Catch Urine Culture - Preliminary Gram Negative Rods 04/07/25 23:11 Blood Blood Culture - Preliminary NO GROWTH AFTER 24 HOURS 04/07/25 21:17 Blood Blood Culture - Preliminary NO GROWTH AFTER 24 HOURS Results Data Completed and Pending Labs on day of discharge: Labs from last 24 hours 04/09/25 04/09/25 04/09/25 11:15 05:46 05:36 WBC 5.7 RBC 3.09 L Hgb 7.6 L Hct 26.7 L MCV 86.4 MCH 24.6 L MCHC 28.5 L RDW 16.2 Plt Count 174 MPV 12.9 H Neut % (Auto) 74.6 Lymph % (Auto) 13.1 [place] % (Auto) 7.3 Eos % (Auto) 3.8 Baso % (Auto) 0.5 Neut # (Auto) 4.3 Lymph # (Auto) 0.8 [place] # (Auto) 0.4 Eos # (Auto) 0.2 Baso # (Auto) 0.0 Sodium 138 Potassium 4.3 Chloride 104 Carbon Dioxide 33 H Anion Gap 5.3 BUN 23 H Creatinine 1.30 H Estimated Creat Clear 42 Estimated GFR 39 L Est GFR ( Amer) 48 L Glucose 97 POC Glucose 111 H 101 Calcium 8.3 L Urine Color Urine Appearance Urine pH Ur Specific Trent Urine Protein Urine Glucose (UA) Urine Ketones Urine Blood Urine Nitrate Urine Bilirubin Urine Urobilinogen Ur Leukocyte Esterase Urine RBC Urine WBC Ur Squamous Epith Cells Urine Bacteria 04/08/25 04/08/25 04/07/25 20:31 16:13 18:19 WBC RBC Hgb Hct MCV MCH MCHC RDW Plt Count MPV Neut % (Auto) Lymph % (Auto) [place] % (Auto) Eos % (Auto) Baso % (Auto) Neut # (Auto) Lymph # (Auto) [place] # (Auto) Eos # (Auto) Baso # (Auto) Sodium Potassium Chloride Carbon Dioxide Anion Gap BUN Creatinine Estimated Creat Clear Estimated GFR Est GFR ( Amer) Glucose POC Glucose 137 H 94 Calcium Urine Color Yellow Urine Appearance Clear Urine pH 5.5 Ur Specific Trent 1.010 Urine Protein Negative Urine Glucose (UA) Trace Urine Ketones Negative Urine Blood Negative Urine Nitrate Positive A Urine Bilirubin Negative Urine Urobilinogen 0.2 Ur Leukocyte Esterase Trace Urine RBC None Urine WBC 3-5 Ur Squamous Epith Cells 3-5 Urine Bacteria 4+ Preliminary micro results at discharge 04/07/25 18:19 Urine Culture - Preliminary Urine,Clean Catch Gram Negative Rods 04/07/25 23:11 Blood Culture - Preliminary Blood NO GROWTH AFTER 24 HOURS 04/07/25 21:17 Blood Culture - Preliminary Blood NO GROWTH AFTER 24 HOURS DS: Diagnosis Discharge Diagnosis (1) Acute on chronic systolic heart failure: Status: Acute Code(s): I50.23 - Acute on chronic systolic (congestive) heart failure (2) Acute on chronic respiratory failure with hypoxia and hypercapnia: Status: Acute Code(s): J96.21 - Acute and chronic respiratory failure with hypoxia; J96.22 - Acute and chronic respiratory failure with hypercapnia (3) COPD exacerbation: Status: Acute Code(s): J44.1 - Chronic obstructive pulmonary disease with (acute) exacerbation (4) CKD (chronic kidney disease): Status: Acute Code(s): N18.9 - Chronic kidney disease, unspecified Qualifiers: Chronic kidney disease stage: unspecified stage Qualified Code(s): N18.9 - Chronic kidney disease, unspecified (5) Hypervolemia: Status: Acute Code(s): E87.70 - Fluid overload, unspecified Qualifiers: Hypervolemia type: unspecified Qualified Code(s): E87.70 - Fluid overload, unspecified (6) Elevated brain natriuretic peptide (BNP) level: Status: Acute Code(s): R79.89 - Other specified abnormal findings of blood chemistry (7) Venous stasis ulcer: Status: Acute Code(s): I83.009 - Varicose veins of unspecified lower extremity with ulcer of unspecified site; L97.909 - Non-pressure chronic ulcer of unspecified part of unspecified lower leg with unspecified severity Meds Home Medications and Allergies Home Medications ?Medication ?Instructions ?Recorded ?Confirmed ?Type famotidine 20 mg tablet 20 mg PO BID 02/18/22 04/08/25 History mirtazapine 15 mg tablet 15 mg PO HS 02/18/22 04/08/25 History pantoprazole 40 mg tablet,delayed 40 mg PO HS 02/18/22 04/08/25 History release sertraline 100 mg tablet 150 mg PO DAILY 02/18/22 04/08/25 History buspirone 7.5 mg tablet 7.5 mg PO BID 06/06/22 04/08/25 History levothyroxine 25 mcg tablet 25 mcg PO DAILY 07/03/24 04/08/25 History (Synthroid) aspirin 81 mg tablet,delayed 81 mg PO DAILY #30 tabs 12/24/24 04/08/25 Rx release (Adult Low Dose Aspirin) empagliflozin 10 mg tablet 10 mg PO DAILY #30 tabs 01/13/25 04/08/25 Rx (Jardiance) Held on 04/09/25. Instructions: Resume on 04/16/25. This medication can cause UTI, please follow-up with your PCP before restarting this medication. apixaban 5 mg tablet (Eliquis) 5 mg PO BID 30 days #60 tabs 01/15/25 04/08/25 Rx bumetanide 1 mg tablet 1 mg PO DAILY #90 tabs 01/26/25 04/08/25 Rx ergocalciferol (vitamin D2) 1,250 1,250 mcg PO MONTHLY 02/09/25 04/08/25 History mcg (50,000 unit) capsule (Vitamin D2) allopurinol 100 mg tablet 100 mg PO DAILY 03/03/25 04/08/25 History metoprolol succinate 25 mg 25 mg PO DAILY #30 tabs 03/03/25 04/08/25 Rx tablet,extended release 24 hr budesonide-formoterol HFA 80 1 puff inhalation BID #10.2 grams 04/09/25 Rx mcg-4.5 mcg/actuation aerosol inhaler (Symbicort) doxycycline hyclate 100 mg tablet 100 mg PO BID 7 days #13 tabs 04/09/25 Rx ferrous sulfate 325 mg (65 mg 325 mg PO BID #60 tabs 04/09/25 Rx iron) tablet levofloxacin 750 mg tablet 750 mg PO Q48H 4 days #3 tabs 04/09/25 Rx multivitamin 1 tab PO DAILY #30 tabs 04/09/25 Rx polyethylene glycol 3350 17 17 g PO DAILY #510 grams 04/09/25 Rx gram/dose oral powder (Miralax) spironolactone 25 mg tablet 25 mg PO DAILY #30 tabs 04/09/25 Rx New Prescriptions to Start Prescriptions: budesonide-formoterol [Symbicort] Gaudencio Duran doxycycline hyclate Gaudencio Duran ferrous sulfate Gaudencio Duran levofloxacin Gaudencio Duran multivitamin Roger,Gaudencio polyethylene glycol 3350 [Miralax] Gaudencio Duran spironolactGaudencio Gale Allergies Allergy/AdvReac Type Severity Reaction Status Date / Time pseudoephedrine Allergy Severe Difficulty Verified 04/07/25 20:31 Breathing azithromycin Allergy Unknown Unknown Verified 04/07/25 20:31 allergy reaction Cephalosporins Allergy Unknown Gastrointestinal Verified 04/07/25 20:31 Upset chocolate flavor Allergy Unknown Unknown Verified 04/07/25 20:31 allergy reaction clarithromycin Allergy Unknown Unknown Verified 04/07/25 20:31 allergy reaction erythromycin base Allergy Unknown Rash Verified 04/07/25 20:31 guaifenesin Allergy Unknown Unknown Verified 04/07/25 20:31 allergy reaction montelukast Allergy Unknown Numbness Verified 04/07/25 20:31 nabumetone (From Relafen) Allergy Unknown Rash Verified 04/07/25 20:31 nitrofurantoin Allergy Unknown Unknown Verified 04/07/25 20:31 allergy reaction NSAIDS (Non-Steroidal Allergy Unknown Unknown Verified 04/07/25 20:31 Anti-Inflamma allergy reaction Penicillins Allergy Unknown Unknown Verified 04/07/25 20:31 allergy reaction prednisone Allergy Unknown Unknown Verified 04/07/25 20:31 allergy reaction Sulfa (Sulfonamide Allergy Unknown Unknown Verified 04/07/25 20:31 Antibiotics) allergy reaction cefdinir Allergy rash, Verified 04/07/25 20:31 itching methylprednisolone (From Allergy Rash Verified 04/07/25 23:13 Solu-Medrol) spironolactone AdvReac Severe Severe Verified 04/07/25 20:31 hyperkalemia atorvastatin AdvReac Intermediate Muscle Pain Verified 04/09/25 14:42 clindamycin AdvReac Unknown Gastrointestinal Verified 04/07/25 20:31 Upset codeine AdvReac Unknown Gastrointestinal Verified 04/07/25 20:31 Upset doxycycline AdvReac Unknown MAKES THE Verified 04/07/25 20:31 BACKS OF EYES HURT fexofenadine (From Sudha) AdvReac Unknown INFLAMED Verified 04/07/25 20:31 INSIDE OF NOSE fluticasone (From Advair AdvReac Unknown HURTS IN Verified 04/07/25 20:31 Diskus) THE INSIDE OF NOSE imipramine AdvReac Unknown BLADDER Verified 04/07/25 20:31 PAIN/SLOW DRAINAGE metoclopramide (From Reglan) AdvReac Unknown Gastrointestinal Verified 04/07/25 20:31 Upset mometasone furoate (From AdvReac Unknown Cough Verified 04/07/25 20:31 Nasonex) paroxetine (From Paxil) AdvReac Unknown Agitated Verified 04/07/25 20:31 salmeterol (From Advair AdvReac Unknown HURTS IN Verified 04/07/25 20:31 Diskus) THE INSIDE OF NOSE tramadol AdvReac Unknown Dizziness Verified 04/07/25 20:31 acetaminophen (From Lortab) AdvReac Gastrointestinal Verified 04/07/25 20:31 Upset hydrocodone (From Lortab) AdvReac Gastrointestinal Verified 04/07/25 20:31 Upset Discharge Plan Disposition Patient Disposition: Home Health Service Condition: Fair Discharge Order Discharge Orders: Discharge Order (Routine); Ordered 04/09/25 Ordered By: Gaudencio Duran Follow up Plan Follow up with: Maria Luz Johnson APRN [Primary Care Provider, Medical] - 04/20/25 11:00 am Kolby Britton MD [Physician, Pulmonology] - 05/13/25 1:00 pm Prescriptions/Medication Reconciliation: New doxycycline hyclate 100 mg Tablet 100 mg PO BID 7 Days Qty: 13 0RF levofloxacin 750 mg tablet 750 mg PO Q48H 4 Days Qty: 3 0RF ferrous sulfate 325 mg (65 mg iron) tablet 325 mg PO BID Qty: 60 0RF polyethylene glycol 3350 [Miralax] 17 gram/dose powder 17 g PO DAILY Qty: 510 0RF spironolactone 25 mg tablet 25 mg PO DAILY Qty: 30 0RF multivitamin Tablet 1 tab PO DAILY Qty: 30 0RF budesonide-formoterol [Symbicort] 80-4.5 mcg/actuation HFA aerosol inhaler 1 puff inhalation BID Qty: 10.2 0RF Continued buspirone 7.5 mg tablet 7.5 mg PO BID Patient Comments: TAKE ONE TABLET BY MOUTH TWICE DAILY aspirin [Adult Low Dose Aspirin] 81 mg tablet,delayed release (DR/EC) 81 mg PO DAILY Qty: 30 5RF allopurinol 100 mg tablet 100 mg PO DAILY Patient Comments: TAKE ONE TABLET BY MOUTH EVERY DAY metoprolol succinate 25 mg tablet extended release 24 hr 25 mg PO DAILY Qty: 30 5RF ergocalciferol (vitamin D2) [Vitamin D2] 1,250 mcg (50,000 unit) capsule 1,250 mcg PO MONTHLY Patient Comments: Take 1 capsule by mouth once a month bumetanide 1 mg tablet 1 mg PO DAILY Qty: 90 1RF sertraline 100 MG tablet 150 mg PO DAILY famotidine 20 MG tablet 20 mg PO BID pantoprazole 40 MG tablet,delayed release (DR/EC) 40 mg PO HS mirtazapine 15 MG tablet 15 mg PO HS Eliquis 5 mg Tablet 5 mg PO BID 30 Days Qty: 60 0RF levothyroxine [Synthroid] 25 mcg tablet 25 mcg PO DAILY Held Jardiance 10 mg tablet 10 mg PO DAILY Qty: 30 5RF Hold Instructions: Resume on 04/16/25. This medication can cause UTI, please follow-up with your PCP before restarting this medication. Problem Reconciliation Problems Reviewed?: Yes Patient Discharge Instructions Patient Instructions: Heart Failure, Chronic Kidney Disease, Stop Light COPD, Stop Light Heart Failure Print Language: Nepali Providers Primary Care Provider: Maria Luz Johnson Admit Provider: Gaudencio Duran Attending Provider: Gaudencio Duran
--- NOTE | 2025-04-09 13:49 | HMH.PTWOUND ---
Rehab Inpt Wound Evaluation Rehab IP Wound Evaluation Start: 04/08/25 13:39 Freq: ONCE Status: Active Protocol: Document 04/09/25 13:43 TRISH (Rec: 04/09/25 13:49 TRISH [id number]) Rehab PT Wound Assessment Subjective Subjective 80-year-old female who is well-known to our service line and has a past medical history significant for anemia, angina, HFrEF, hypertension, heart murmur, GERD, depression, coronary artery disease, cancer, arrhythmia, anxiety, renal mass, hyperlipidemia, hypertension, nephrolithiasis, type 2 diabetes, COVID- 19 infection, depression, hypothyroidism, atrial fibrillation, and aortic stenosis who presents with a chief complaint of shortness of breath. Due to patient 's symptoms, she presented to the emergency room for evaluation. While in emergency room, patient's venous blood gas revealed an elevated CO2 and chest x-ray revealed bibasilar atelectasis/pulmonary fibrosis. Patient was placed on the BiPAP and hospital medicine was consulted for further management. Pt presents with B lower leg wounds upon admission. Wound Right Posterior Lateral Calf Wound Type Stasis Ulcer Is This a Chronic Yes Wound Wound Length (cm) 7.0 Wound Width (cm) 5.0 Wound Depth (cm) 0.1 Wound Bed Appearance Beefy Red Wound Margins Well Defined Description Surrounding Tissue Debary Appearance Edema Type Pitting Edema Degree 1+ Query Text:1+ Trace, Barely Detectable, Rebound 15-30 seconds 2+ Moderate, Slight Indentation, Rebound 10-20 seconds 3+ Deep, Deeper Indentation, Rebound > 30 seconds 4+ Very Deep, Rebound > 60 seconds Wound Drainage Yellow Description Drainage Amount Moderate Primary Dressing Biosynthetic Dressing Comment bordered foam Wound Secondary Gauze Roll/Wrap,Elastic Bandage Dressing Type Wound Debridement Gauze,Mechanical Method Wound Debridement Minimal Amount of Tissue Removed Dressing Change Tolerated Well Patient Tolerance Right Posterior Medial Calf Wound Type Stasis Ulcer Is This a Chronic Yes Wound Wound Length (cm) 7.4 Wound Width (cm) 3.4 Wound Depth (cm) 0.1 Wound Bed Appearance Beefy Red Wound Margins Well Defined Description Surrounding Tissue Debary Appearance Edema Type Pitting Edema Degree 1+ Query Text:1+ Trace, Barely Detectable, Rebound 15-30 seconds 2+ Moderate, Slight Indentation, Rebound 10-20 seconds 3+ Deep, Deeper Indentation, Rebound > 30 seconds 4+ Very Deep, Rebound > 60 seconds Wound Drainage Yellow Description Drainage Amount Moderate Wound Topical Saline Irrigant Solution/Irrigant Primary Dressing Composite Comment bordered foam Wound Secondary Gauze Roll/Wrap,Elastic Bandage Dressing Type Wound Debridement Gauze,Mechanical Method Wound Debridement Minimal Amount of Tissue Removed Dressing Change Tolerated Well Patient Tolerance Right Anterior Inferior Deal Wound Type Stasis Ulcer Is This a Chronic Yes Wound Wound Length (cm) 2.5 Wound Width (cm) 2.0 Wound Depth (cm) 0.1 Wound Bed Appearance Beefy Red Percentage 100 Granulated (%) Wound Margins Well Defined Description Edema Type Pitting Edema Degree 1+ Query Text:1+ Trace, Barely Detectable, Rebound 15-30 seconds 2+ Moderate, Slight Indentation, Rebound 10-20 seconds 3+ Deep, Deeper Indentation, Rebound > 30 seconds 4+ Very Deep, Rebound > 60 seconds Edema Appearance Weeping Wound Drainage Serosanguineous Description Drainage Amount Moderate Wound Topical Saline Irrigant Solution/Irrigant Primary Dressing Non-Adherent Gauze Pad Wound Secondary Gauze Roll/Wrap,Elastic Bandage Dressing Type Wound Debridement Gauze,Mechanical Method Dressing Change Tolerated Well Patient Tolerance Plan/Recommendation Comment Current dressings are appropriate at this time. Pt is minimally ambulatory and sis in her wheelchair with B LE in dependent position most of the time during the day. Recommend continued dressing changes with overlying compression from elastic bandage. Thank you for involving the wound care team in the care of this patient. Eval Complexity Eval Charge Codes 35359 - High Complexity PHYSICIAN CERTIFICATION: I certify the specified therapy services for Lian Bliss are required, authorized, and reviewed every 30 days.
== END 2025-04-09 14:30 | disposition home health service (06) | DRG 189 ==
LOC: ER 20:41 → ICU 04-08 06:09 → 2ND 04-08 17:44
PROVIDERS: Nurse Practitioner Family; Admitting Provider Student in an Organized Health Care Education/Training Program; Emergency Provider Student in an Organized Health Care Education/Training Program; PCP Nurse Practitioner; Visit Provider Student in an Organized Health Care Education/Training Program
DX: J96.22 Acute and chronic respiratory failure with hypercapnia (principal); I50.23 Acute on chronic systolic (congestive) heart failure; J44.1 Chronic obstructive pulmonary disease with (acute) exacerbation; I13.0 Hypertensive heart and chronic kidney disease with heart failure and stage 1 through stage 4 chronic kidney disease, or unspecified chronic kidney disease; L97.919 Non-pressure chronic ulcer of unspecified part of right lower leg with unspecified severity; L97.929 Non-pressure chronic ulcer of unspecified part of left lower leg with unspecified severity; N39.0 Urinary tract infection, site not specified; J96.21 Acute and chronic respiratory failure with hypoxia; I35.0 Nonrheumatic aortic (valve) stenosis; K21.9 Gastro-esophageal reflux disease without esophagitis; E78.5 Hyperlipidemia, unspecified; I25.10 Atherosclerotic heart disease of native coronary artery without angina pectoris; N18.9 Chronic kidney disease, unspecified; I48.0 Paroxysmal atrial fibrillation; Z86.16 Personal history of COVID-19; E03.9 Hypothyroidism, unspecified; F41.9 Anxiety disorder, unspecified; E11.22 Type 2 diabetes mellitus with diabetic chronic kidney disease; I83.009 Varicose veins of unspecified lower extremity with ulcer of unspecified site; D63.1 Anemia in chronic kidney disease; Z79.899 Other long term (current) drug therapy; Z79.890 Hormone replacement therapy; Z11.52 Encounter for screening for COVID-19; Z99.81 Dependence on supplemental oxygen; Z79.84 Long term (current) use of oral hypoglycemic drugs; Z79.82 Long term (current) use of aspirin
CPT/HCPCS: 71045; 80048; 80053; 81001; 82607; 82728; 82746; 82803; 82962; 83540; 83550; 83605; 83735; 83880; 84145; 84484; 84630; 85025; 85044; 87040; 87086; 87088; 87636; 89220; 93005; 93308; 94640; 94660; 94761; 97162; 97166; 99285; J1756; J1939

== ENCOUNTER 2025-05-05 11:34 | Outpatient (CLI) | payer MEDICARE, SELFPAY ==
--- OUTSIDE RECORDS SUMMARY | 2025-05-05 11:36 | XMS_ITS | Encounter Summary ---
Author Organization [employer] ([place], [place], [place], [place]) Address [address] [place] [address] Care Team Providers Care Paring Machine Operator Name Role Phone Ted Matute MD Primary Care Provider [phone]- [phone] Ted Matute MD Unavailable [phone] Encounter Details Date Type Department Care Team (Late st Contact Info) Description 09/28/2024 Lab Requisition [facility] [address] [place] [address] Maria Luz Johnson, PIGMENT AND LACQUER MIXER [address] [phone] Sepsis, unspecified organism (HCC) Social History Tobacco [...] (HCC) documented in this encounter Care Teams Paring Machine Operator Relationship Specialty Start Date End Date Ted Matute MD [facility]0 [facility] [address] [place] [id number] PCP - General Family Medicine 05/20/23 Ted Matute MD [address] [facility] [address] [place] [phone] Referring Physician Family Medicine 05/20/23 documented as of this encounter
--- OUTSIDE RECORDS SUMMARY | 2025-05-05 11:36 | XMS_ITS | Referral Summary ---
Author Organization [employer] ([place], [place], [place], [place]) Address [address] [place] [address] Care Team Providers Care Project Specialist Name Role Phone Ted Matute MD Primary Care Provider [phone] Ted Matute MD Unavailable [phone] Social History Tobacco Use Types Packs/Day Years Used Date Smoking Tobacco: Never Assessed Comments Unknown Sex and Gender Information Value Date Recorded Sex Assigned at Not on file Legal Sex Female 3:57 PM CDT Gender Identity Not on file Sexual Orientation Not on file Plan of Treatment Not on file Insurance MEDICA[place] OF [place] [facility] Care Teams Project Specialist Relationship Specialty Start Date End Date Ted Matute MD [address] [place] [id number] PCP - General Family Medicine 05/20/23 Ted Matute MD [address] [facility] [address] [place] [phone] Referring Physician Family Medicine 05/20/23
--- OUTSIDE RECORDS SUMMARY | 2025-05-05 11:36 | XMS_ITS | Clinical Summary ---
Author Organization [employer] ([place], [place], [place], [place]) Address [address] [place] [address] Care Team Providers Care Knockdown Worker Name Role Phone Ted Matute MD Primary Care Provider [phone] Ted Matute MD Unavailable [phone] Social History Tobacco Use Types Packs/Day Years [...] or (1 - 1-dose 75+ series) 02/05/2020 Falls Risk Screening 08/12/2024 COVID-19 VACCINE (3 - season) 04/12/202502/2021, 11/15/2020 Influenza Vaccine (#1) 2025 Insurance [place]ICA[place] OF [place] [facility] [place] [address] Care Teams Knockdown Worker Relationship Specialty Start Date End Date Ted Matute MD [address] [facility] [address] [place] [phone] PCP - General Family Medicine 05/20/23 Ted Matute MD [address] [facility] [address] [place] [address] Referring Physician Family Medicine 05/20/23
--- OUTSIDE RECORDS SUMMARY | 2025-05-05 11:36 | XMS_ITS | Encounter Summary ---
Author Organization [employer] ([place], [place], [place], [place]) Address [address] [place] [address] Care Team Providers Care Melter Supervisor Oxygen Furnace Name Role Phone Ted Matute MD Primary Care Provider [phone] Ted Matute MD Unavailable [phone] Encounter Details Date Type Department Care Team (Late st Contact Info) Description 09/28/2024 Outside Orders [facility] Admitting [address] [place] [address] Maria Luz Johnson D, FITNESS TEACHER [address] [phone] Systemic infection (HCC) (Primary Dx) Social History [...] Growth Enterobacter cloacae(A) 10/02/2024 7:43 AM EST [facility] Result Heavy Growth Staphylococcus aureus(A) 10/02/2024 7:43 AM EST [facility] Result Heavy Growth Streptococcus agalactiae(A) 10/02/2024 7:43 AM [facility] Result Heavy Growth Corynebacterium species(A) 10/02/2024 7:43 AM [facility] Comment: No further identification No susceptibility performed Gram Stain Result Moderate gram positive cocci in pairs 10/02/2024 7:43 AM EST [facility] Gram Stain Result Few gram positive rods 10/02/2024 7:43 AM EST [facility] Gram Stain Result Rare WBCs 025 7:43 AM [facility] Wound ABDOMEN / Unknown Collection [...] aureus Vancomycin 1: Susceptible Maria Luz Johnson FITNESS TEACHER MICROBIOLOGY - GENERAL ORD ERABLES Final Result [facility] [address] [place] [address], [facility] [phone] [facility] [address] [place] [address], [facility] [phone] documented in this encounter Visit Diagnoses Diagnosis Systemic infection (HCC)- Primary Unspecified septicemia documented in this encounter Care Teams Melter Supervisor Oxygen Furnace Relationship Specialty Start Date End Date Ted Matute MD [address] [facility] [address] [place] [phone] PCP - General Family Medicine 05/20/23 Ted Matute MD [address] [facility] [address] [place] [phone] Referring Physician Family Medicine 05/20/23 documented as of this encounter
--- OUTSIDE RECORDS SUMMARY | 2025-05-05 11:36 | XMS_ITS | Clinical Summary ---
Author Organization [facility] Address [address] [facility] [address] [place] [address] Phone Care Team Providers Care Preparation Department Supervisor Name Role Phone Unavailable Unavailable Conditions or Problems No information available. Medications No information available. Medications Administered No information available. Allergies, Adverse Reactions, Alerts No information available. Results No information available. Plan of Care No information available. Procedures No information available. Vital Signs No information available. Immunizations No information available. Advance Directives No information available.
--- NOTE | 2025-05-05 11:37 | XR_ITS ---
FINAL REPORT CLINICAL HISTORY: shortness of breath / BEST IMAGES POS DUE TO PT UNABLE TO STAND STILL COMPARISON: 04/07/2025 FINDINGS: PA and lateral views of the chest were obtained. The heart is mildly enlarged but stable. Lung volumes are very low. Pulmonary vascular congestion appears similar to the prior study. There is no pleural effusion or pneumothorax. There are several age-indeterminate thoracic compression deformities.. IMPRESSION: Stable exam. Reviewed, Interpreted and Dictated by Gayathri Brooks MD Transcribed by Faiza Morales Authenticated and [facility]
--- OUTSIDE RECORDS SUMMARY | 2025-05-05 11:37 | XMS_ITS | Clinical Summary ---
Author Organization Healthcare Address [address] [place] [address] Care Team Providers Care Cage Supervisor Name Role Phone Ted Matute MD Primary Care Provider [phone] Family History Medical History Relation Name Comments [...] r (1 - 1-dose 75+ series) 02/05/2020 [id number] Vaccine (1 - 20 24-25 season) 2025 [facility]-Influenza Vaccine (#1) 2025 HPV Vaccines Aged [...] this topic Insurance [place] MEDICARE Care Teams Cage Supervisor Relationship Specialty Start Date End Date Ted Matute MD [facility] [place] [address] [facility] - General 12/23/20
--- OUTSIDE RECORDS SUMMARY | 2025-05-05 11:37 | XMS_ITS | Clinical Summary ---
Author Organization [facility] Address [address] [place] [address] Care Team Providers Care School Services Officer Name Role Phone Lance Santillan MD Primary Care Provider [phone] Allergies Active Allergy Reactions Criticality Noted Date [...] 1-dose 75+ series) 0 ANNUAL PHYSICAL 12/27/2020 INFLUENZA VACCINE 03/12/2025 COVID-19 Vaccine (2 - season) 04/12/202502/2021 Medical Devices Implanted Type Area Renal Dialysis Technician Device Identifier Shelf Expiration Date Model / Serial / Lot Implant Implant Description:Right hip and ri ght knee Sut Contrl Tiss Stratafix Spiral Pdo Bidir 1 [id number] - [id number] Implanted:Qty : 1 on 12/29/2020 by Seymour Schmid MD at [facility] Implant Right: Hip [employer] DIV OF J AND J [id number] / / Cmt Bone Simplex/P Full Dose 10/Pk - [id number] Implanted:Qty : 3 on 12/29/2020 by Seymour Schmid MD at [facility] Implant Right: Hip AMARJIT ISI [id number] / / Description:Each batch mixed with 3 G vancomycin and 3.6 G tobramycin Stem Fem/Hip Versys Advocate Nonvlign Std/Offst Sz11 120mm - [id number] Implanted:Qty : 1 on 12/29/2020 by Seymour Schmid MD at [facility] Implant Right: Hip [employer] [id number] 05/11/2026 [id number] / / [id number] Hd Fem/Hip [place] Cocr 07/25tpr 36mm Pls6 Strl - [id number] Implanted:Qty : 1 on 12/29/2020 by Seymour Schmid MD at [facility] Implant Right: Hip [employer] [id number] 01/09/2030 [id number] / / [id number] Liner Hip [place] Cnstr Allpoly Std Face 54mm - [id number] Implanted:Qty : 1 on 12/29/2020 by Seymour Schmid MD at [facility] Implant Right: Hip [employer] [id number] / / [id number] Additional Health Concerns Infection Onset Date Last [...] Of Support Discussed With: Patient Care Teams School Services Officer Relationship Specialty Start Date End Date Lance Santillan MD [address] [facility] [address] [facility] [place] [address] PCP - General Adolescent Medicine 12/27/20
[2025-05-05 13:00] LABS: Iron 30 ug/dL (37-170)
[2025-05-05 13:09] LABS: Total Iron Binding Capacity 305 ug/dL (265-497)
[2025-05-05 13:10] LABS: Hematocrit 28.7 % (37.0-47.0); Hemoglobin 8.4 g/dL (12.2-16.2); Immature Granulocytes % 0.2 %; Mean Corpuscular HGB Conc 29.3 g/dL (31.8-35.4); Mean Corpuscular Hemoglobin 25.1 pg (27.0-31.2); Mean Corpuscular Volume 85.7 fl (81-99); Nucleated Red Blood Cells % 0 %; Platelet Count 188 K/mm3 (142-424); Red Blood Count 3.35 M/mm3 (4.20-5.40); Red Cell Distribution Width-SD 57.5 fL; White Blood Count 4.9 K/mm3 (4.8-10.8)
[2025-05-05 13:37] LABS: Ferritin 31.0 ng/ml (11.1-264)
== END 2025-05-05 23:59 | disposition home or self-care (01) ==
LOC: LAB 11:35
PROVIDERS: PCP Nurse Practitioner; Visit Provider Internal Medicine Medical Oncology
DX: D64.9 Anemia, unspecified (principal); R06.02 Shortness of breath; D69.6 Thrombocytopenia, unspecified
CPT/HCPCS: 36415; 71046; 82728; 83540; 83550; 85025

== ENCOUNTER 2025-06-07 11:54 | Observation (INO) | payer MEDICARE, SELFPAY ==
[2025-06-07] VITALS (24 sets, daily range): BP systolic 126–177; BP diastolic 52–128; PULSE 55–72; RESP 14–31; TEMP 36.7–36.9; O2SAT 91–98; BMI 29.4
--- OUTSIDE RECORDS SUMMARY | 2025-06-07 12:03 | XMS_ITS | Clinical Summary ---
Author Organization [facility] Address [address] [facility] [address] [place] [address] Phone Care Team Providers Care Filler Spreader Name Role Phone Unavailable Unavailable Conditions or Problems No information available. Medications No information available. Medications Administered No information available. Allergies, Adverse Reactions, Alerts No information available. Results No information available. Plan of Care No information available. Procedures No information available. Vital Signs No information available. Immunizations No information available. Advance Directives No information available.
--- OUTSIDE RECORDS SUMMARY | 2025-06-07 12:03 | XMS_ITS | Clinical Summary ---
Author Organization [facility] Address [address] [place] [address] Care Team Providers Care Therapeutic Consultant Name Role Phone Ted Matute MD Primary Care Provider [phone] Family History Medical History Relation Name Comments [...] [facility]-Bone Density Scan 1945 [facility]-Depression Screening 1945 [facility]-/Child/Adol SDOH Screenings 1945 [facility]- SDOH Screenings 1963 [facility]-Adult SDOH Screenings 1963 [facility]-DTaP,Tdap,and Td Vaccine s (1 - Tdap) 02/05/1964 [facility]-Pneumococcal Vaccine: 50 + Years (1 of 1 - PCV) 1995 [facility]-Zoster Vaccines (1 of 2) 1995 [facility]-RSV Vaccine: 60+ Years o r (1 - 1-dose 75+ series) 02/05/2020 [id number] Vaccine (1 - 20 24-25 season) 2025 [...] this topic Insurance [place] Care Teams Therapeutic Consultant Relationship Specialty Start Date End Date Ted Matute MD [facility] [place] [address] [facility] - General 12/23/20
--- OUTSIDE RECORDS SUMMARY | 2025-06-07 12:03 | XMS_ITS | Patient Health Record ---
Author Organization [facility] Address [address] [facility] [address] [place] [id number] Care Team Providers Care Merchandise Handler Name Role Phone Josee Matute Primary Care Provider [phone] Allergies Allergen (clinical drug ingredient) Drug/Non Drug Allergy documented on EMR Reaction Allergy Type Onset Date Status MIDRIN (uncoded) Unknown Allergy Act britney SELDANE (uncoded) Unknown Allergy Ac tive Steroids STEROIDS (uncoded) turns skin red Allergy Active Acetaminophen-Codei ne #3 GI Drug Allergy Active fluticasone / salmeterol Advair Diskus hurts nose Drug Allergy Active Sudha Allergy Unknown Drug Allergy A ctive allopurinol Allopurinol urinary incontinence Drug Allergy Active baclofen Baclofen unable to contro l bladder Drug Allergy Active Uqrrzearnb-UDR-Oamx eine Unknown Drug Allergy Active cephalexin Cephalexin Unknown Drug Allergy Activ e clarithromycin Clarithromycin nervousness Drug Allergy Active Claritin Unknown Drug Allergy Active colchicine Colcrys diarrhea Drug Allergy Active doxycycline Doxycycline Unknown Drug Allergy Act britney erythromycin Erythromycin rash Drug Allergy A ctive gabapentin Gabapentin swelling of legs Drug Allergy Active gatifloxacin Gatifloxacin GI Drug Allergy A ctive acetaminophen / hydrocodone HYDROcodone-Acetami nophen Unknown Drug Allergy Active Iodine Unknown Drug Allergy Active lisinopril Lisinopril cough Drug Allergy Activ e nitrofurantoin, macrocrystals / nitrofurantoin, monohydrate Macrobid Unknown Drug Allergy Active ibuprofen Motrin IB GI Drug Allergy Active guaifenesin Mucinex GI Drug Allergy Activ e naproxen Naprosyn GI Drug Allergy Active paroxetine Paxil nervousness Drug Allergy Acti ve probenecid Probenecid upset stomach Drug Allergy A ctive Pseudoephedrine-gua iFENesin Unknown Drug Allergy Active metoclopramide Reglan extreme constipation Drug Allergy Active nabumetone Relafen DS GI Drug Allergy Activ e montelukast Singulair red face and numb Drug Allergy Active febuxostat Uloric weakness Drug Allergy Active azithromycin Zithromax Unknown Drug Allergy Acti ve clindamycin Clindamycin GI Drug Allergy Act britney codeine Codeine nervous Drug Allergy Active fluticasone Fluticasone makes arthritis worse Drug Allergy Active imipramine Imipramine urinary retention Drug Allergy Active mometasone Mometasone cough and sore throat Drug Allergy Active Penicillin Unknown Drug Allergy Active propoxyphene Propoxyphene Unknown Drug Allergy A ctive Substance with sulfonamide structure and antibacterial mechanism of action (substance) Sulfa Antibiotics Unknown Drug Allergy Active tetracycline Tetracycline Unknown Drug Allergy A ctive tramadol traMADol dizzy Drug Allergy Active Medications Medication SIG (Take, Route, Frequency, Duration) Notes Start Date End Date Status Ferrous Sulfate 325 (65 Fe) MG 1 tablet Orally Three times a Week 08/12/2023 Active Benzonatate 200 MG 1 capsule Orally Thr ee times a day, prn 08/09/2023 Active Nebulizer - as directed 07/30/2023 Activ e Full Kit Nebulizer Set - as directed 07/30/2023 Active Adult Mask - as directed 07/30/2023 Acti ve Ipratropium-Albuterol 0.5-2.5 (3) MG/3ML 3 mL as needed Inhalation every 6 hrs 07/30/2023 Active Synthroid 25 MCG 1 tab(s) orally once a day; Duration: 90 Active Albuterol Sulfate HFA 108 (90 Base) MCG/ACT 1 puff as needed Inhalation every 4-6 hours prn 06/28/2023 Active Aspirin Adult Low Dose 81 MG 1 tab(s) orally once daily Active busPIRone HCl 7.5 MG 1 tab(s) orally 2 times a day; Duration: 90 days Active ROLLATOR WALKER DIRECTED DIRECTED 02/06/2018 Active Sertraline HCl 100 mg TAKE 1 AND 1/2 TAB LET BY MOUTH EVERY DAY; Duration: 90 Active Pantoprazole Sodium 40 mg TAKE ONE TABLE T BY MOUTH EVERY DAY; Duration: 30 Active Cetirizine HCl 10 mg TAKE ONE TABLET BY MOUTH DAILY; Duration: 30 Active Furosemide 20 MG 1 tab(s) orally once a day Active Triamcinolone Acetonide 0.1 % 1 heri applied topically 2 times a day 10/01/2022 Active Fluconazole 100 MG 1 tablet Orally once daily; Duration: 7 days 06/28/2023 Not-Taking Nyamyc 055168 UNIT/GM 1 heri applied topically 3 times a day 11/02/2022 Active Benzonatate 200 MG 1 capsule Orally Thr ee times a day, prn 06/28/2023 Not-Taking Nadolol 80 MG 1 tab(s) orally once daily Active Cipro 500 MG 1 tablet Orally ever y 12 hrs; Duration: 3 day(s) 07/30/2023 Not-Taking PRESSURE RELIEVING CUSHION DIRECTED 08/30/2022 Active HYDROmorphone HCl 2 MG 1/2 tab(s) orally three times a day as needed 11/01/2022 Not-Taking Wheelchair DIRECTED 08/30/2022 Active Multivitamin - 1 tab(s) orally once a day Not-Taking Nystatin 377840 UNIT/GM 1 heri applied topically 2 times a day 07/31/2022 Active Meloxicam 7.5 mg TAKE ONE TABLET BY MOUTH EVERY DAY --TAKE WITH FOOD--; Duration: 30 Active Breo Ellipta 100-25 MCG/ACT 1 puff(s) inhaled once a day 05/30/2022 Active Vitamin D3 125 MCG (5000 UT) 1 capsule Orally Once a day 08/12/2023 Active Vitamin B12 1000 MCG 1 tablet Orally Onc e a day; Duration: 30 day(s) 08/12/2023 Active Folic Acid 1 MG 1 tablet Orally Once a day 08/12/2023 Active Immunizations Vaccine Route Administration Date Status Comme nts COVID 19 Mily Unknown 11/16/2020 Administered Problems Problem Type SNOMED Code ICD Code Onset Dates Problem Status W/U Status Risk Notes Problem Anemia (604522455) Anemia (D64.9) Active confirmed Problem Peripheral venous insufficiency (74399970) Venous insufficiency (I87.2) Active confirmed Problem Skin ulcer (01658647) Skin ulcer (L98.499) Active confirmed Problem Skin ulcer of calf (216812458) 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) Active confirmed Problem Non-pressure chronic ulcer of unspecified part of right lower leg limited to breakdown of skin (L97.911) Active confirmed Problem Chronic ulcer of skin of lower leg (disorder) (5768603261020750 4) Non-pressure chronic ulcer of unspecified part of left lower leg limited to breakdown of skin (L97.921) Active confirmed Problem Peripheral vascular disease (512072093) Peripheral vascular disease (I73.9) Active confirmed Problem Sciatica (14504554) Sciatica of right side (M54.31) Active confirmed Problem Acquired hypothyroidism (995468199) Acquired hypothyroidism (E03.9) Active confirmed Problem Renal insufficiency (647393024) Renal insufficiency (N28.9) Active confirmed Problem Migraine (32488843) Migraine without status migrainosus, not intractable, unspecified migraine type (G43.909) Active confirmed Problem Herpes zoster without complication (439918211) Herpes zoster without complication (B02.9) Active confirmed Problem Osteoarthritis of knee (790597628) Primary osteoarthritis of both knees (M17.0) Active confirmed Problem Methicillin resistant Staphylococcus aureus infection (854047232) MRSA infection (A49.02) Active confirmed Problem Hypothyroidism (94378674) Hypothyroidism, unspecified type (E03.9) Active confirmed Problem Pulmonary atelectasis (28365020) Pulmonary atelectasis (J98.11) Active confirmed Problem Leg ulcer (74715311) Leg ulcer (L97.909) Active confirmed Problem Migraine variant with headache (disorder) (487938461) Migraine headache (G43.909) Active confirmed Problem Localized, primary osteoarthritis of the pelvic region and thigh (035488403) Primary osteoarthritis of right hip (M16.11) Active confirmed Problem Narcolepsy (76220485) 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) Active confirmed Problem Chronic sinusitis (06866773) Sinusitis, unspecified chronicity, unspecified location (J32.9) Active confirmed Problem Osteoarthritis (120582103) Osteoarthritis, unspecified osteoarthritis type, unspecified site (M19.90) Active confirmed Problem Allergic rhinitis (12350187) Perennial allergic rhinitis, unspecified allergic rhinitis trigger (J30.89) Active confirmed Problem Gingivitis (55104659) Gingivitis (K05.10) Active confirmed Problem Seasonal allergic rhinitis (511361460) Chronic seasonal allergic rhinitis, unspecified trigger (J30.2) Active confirmed Problem Heart failure (82262365) Congestive heart failure, unspecified HF chronicity, unspecified heart failure type (I50.9) Active confirmed Problem Narcolepsy without cataplexy (56908759829870) 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) Active confirmed Problem Drug allergy (511636208) Multiple drug allergies (Z88.9) Active confirmed Problem Arthritis of knee (680923142) Arthritis of knee (M17.10) Active confirmed Problem Pressure injury of right heel, stage 2 (L89.612) Active confirmed Plan Of Treatment No Information Insurance Providers Payer Name Payer Address Payer Phone Subscriber Number Group Number Insured Name Patient Relationship to Insured Coverage Start Date Coverage End Date MEDICARE PART B [address] [address] [place] [address] [id number] RUPESH CURRY Self - patient is the insured MEDICAID [employer] [address] [place] [address] [id number] RUPESH CURRY Self - patient is the insured Medications Administered Medication Instructions Date of Administration Dosage Notes Depo- Medrol 40 mg/ml 10/25/2015 1.5 mL Depo- Medrol 40 mg/ml 06/20/2018 1 mL Depo- Medrol 40 mg/ml 06/02/2020 1.5 mL Depo- Medrol 40 mg/ml 07/01/2020 1 mL Medical (General) History Medical History History ICD Code chronic sinusitis migraine headache anxiety depression OA Moderate MR by echo 06/12 cystocele carpal tunnel knee sx 05-11-08 Left Ventricular Hypertrophy mitral valve regurgitation splenic artery anuerysm, Dx 1998 Shingles 11/25, Shingles 03/27 Narcolepsy/ Dr. Ornelas Surgical History Surgery Date(Month/Year) Cholecystectomy bladder tuck x3 colon tacked up arthroscopy R knee right TKA 05-11-08 right and left carpal tunnel surgery Kidney stone removal R side but could no t find it 01-18 Sinus Endoscopy, repair of nasal Septum, ablation of turbinate 01/08/12 Hospitalization History Reason Date(Month/Year) migraine [facility] ER-nose bleeds 01/09/12 [facility] ER-nose bleed-transferred to [place], [facility] rt rate lowered 01/28/12 [facility] ER-Evaluation for DVT's 07/24/12 [facility] ER-mouth swollen [facility]-Pneumonia 02/26 to 03/01/2020
--- NOTE | 2025-06-07 12:04 | ECG_ITS ---
APPROVED REPORT Exam: Resting ECG HR:67 bpm ECG Measurements Heart Rate 67 AXES IL 141 P 51 QRSd 84 QRS -34 QT 381 T 56 QTc 397 Conclusion SINUS RHYTHM LEFT AXIS DEVIATION [QRS AXIS < -30] ABNORMAL ECG UNCONFIRMED REPORT Electronically signed by : LENIN ASHFORD, 06/08/2025 06:27:17
--- OUTSIDE RECORDS SUMMARY | 2025-06-07 12:04 | XMS_ITS | Clinical Summary ---
Author Organization [facility] Address [address] [place] [address] Care Team Providers Care School Cafeteria Cook Name Role Phone Lance Santlilan MD Primary Care Provider [phone] Allergies Active Allergy Reactions Criticality Noted Date [...] season) 04/12/202502/2021 Medical Devices Implanted Type Area Sliver Lapper Device Identifier Shelf Expiration Date Model / Serial / Lot Implant Implant Description:Right hip and ri ght knee Sut Contrl Tiss Stratafix Spiral Pdo Bidir 1 [id number] - [id number] Implanted:Qty : 1 on 12/29/2020 by Seymour Schmid MD at [facility] Implant Right: Hip [employer] DIV OF J AND J [id number] / / Cmt Bone Simplex/P Full Dose 10/Pk - [id number] Implanted:Qty : 3 on 12/29/2020 by Seymour Schmid MD at [facility] Implant Right: Hip AMARJIT ISI [id number] / / Description:Each batch mixed with 3 G vancomycin and 3.6 G tobramycin Stem Fem/Hip Versys Advocate Nonvlign Std/Offst Sz11 120mm - [id number] Implanted:Qty : 1 on 12/29/2020 by Seymour Schmid MD at [facility] Implant Right: Hip [employer] [id number] 05/11/2026 [id number] / / [id number] Hd Fem/Hip [place] Cocr 07/25tpr 36mm Pls6 Strl - [id number] Implanted:Qty : 1 on 12/29/2020 by Seymour Schmid MD at [facility] Implant Right: Hip [employer] [id number] 01/09/2030 [id number] / / [id number] Liner Hip [place] Cnstr Allpoly Std Face 54mm - [id number] Implanted:Qty : 1 on 12/29/2020 by Seymour Schmid MD at [facility] Implant Right: Hip [employer] [id number] / / [id number] Additional Health Concerns Infection Onset Date Last [...] Support Discussed With: Patient Care Teams School Cafeteria Cook Relationship Specialty Start Date End Date Lance Snatillan MD [address] [facility] [address] [facility] [place] [address] PCP - General Adolescent Medicine 12/27/20
--- NOTE | 2025-06-07 12:06 | XR_ITS ---
FINAL REPORT TECHNIQUE: Single view chest CLINICAL HISTORY: shortness of breath FINDINGS: A single view of the chest was obtained. The heart is mildly enlarged. The lungs are underinflated with chronic changes in the perihilar regions. There is no pneumothorax. IMPRESSION: Underinflation with chronic changes in the perihilar regions. Reviewed, Interpreted and Dictated by Nadir Hall MD Transcribed by Noni Overton Authenticated and [facility]
--- NOTE | 2025-06-07 12:08 | HMH.EDCP ---
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 Rate 59 L Pulse Rate [Right] Respiratory Rate 21 Blood Pressure 153/66 H Blood Pressure [Right Arm] Blood Pressure Mean 128 Blood Pressure Mean [Right Arm] Blood Pressure Source [Right Arm] Blood Pressure Position [Right Arm] 02 Sat by Pulse Oximetry 98 Oxygen Delivery Method Oxygen Flow Rate (LPM) Fraction of Inspired Oxygen Lab Data Labs: Lab Results 06/07/25 12:05: WBC 4.6 L, RBC 3.29 L, Hgb 8.1 L, Hct 27.8 L, MCV 84.5, MCH 24.6 L, MCHC 29.1 L, RDW 18.8 H, Plt Count 181, MPV 13.4 H, Neut % (Auto) 64.9, Lymph % (Auto) 19.2, Bureau % (Auto) 8.0, Eos % (Auto) 7.1, Baso % (Auto) 0.6, Neut # (Auto) 3.0, Lymph # (Auto) 0.9, Bureau # (Auto) 0.4, Eos # (Auto) 0.3, Baso # (Auto) 0.0, Sodium 137, Potassium 4.5, Chloride 104, Carbon Dioxide 30, Anion Gap 7.5, BUN 30 H, Creatinine 1.50 H, Estimated Creat Clear 36, Estimated GFR 33 L, Est GFR ( Amer) 40 L, Glucose 94, Calcium 8.3 L, Total Bilirubin 0.4, AST 19, ALT 10 L, Alkaline Phosphatase 98, Troponin I 0.01, NT-Pro-B Natriuret Pep 2730 H, Total Protein 6.8, Albumin 2.8 L, Globulin 4.0 H, Albumin/Globulin Ratio 0.7 L 06/07/25 12:15: VBG pH 7.29 L, VBG pCO2 56.8 H, VBG pO2 43.5 H, VBG HCO3 26.4, VBG Total CO2 28.1 H, VBG O2 Saturation 76.3 H, VBG Base Excess -0.3, VBG Lactic Acid 1.2 06/07/25 13:40: SARS-CoV-2 (PCR) Not detected, Influenza A Untype (PCR) Not detected, Influenza Type B (PCR) Not detected 06/07/25 14:30: VBG pH 7.29 L, VBG pCO2 52.0 H, VBG pO2 65.5 H, VBG HCO3 24.5, VBG Total CO2 26.1, VBG O2 Saturation 89.9 H, VBG Base Excess -2.1, VBG Lactic Acid 0.8 Response Orders (Tests/Meds): ED MEDICATIONS Generic Name Dose Route Start Last Admin Trade Name Freq PRN Reason Stop Dose Admin Acetaminophen 1,000 mg 06/07/25 15:14 Acetaminophen 325mg Tab PO 07/07/25 15:13 Q4HP PRN Fever or Mild Pain (1-3) Albuterol/Ipratropium 3 ml 06/07/25 18:00 06/07/25 18:05 Ipratropium/Albuterol 3 Ml Neb 07/07/25 17:59 3 ml Q4HWA GLENNY Administration Allopurinol 100 mg 06/08/25 09:00 Allopurinol 100mg Tablet PO 07/08/25 08:59 DAILY [facility] Apixaban 5 mg 06/07/25 21:00 Apixaban 5mg Tablet PO 07/07/25 20:59 BID GLENNY Ascorbic Acid 500 mg 06/08/25 09:00 Ascorbic Acid 500mg Tab PO 07/08/25 08:59 DAILY [facility] Aspirin 81 mg 06/08/25 09:00 Aspirin Ec 81mg Tablet PO 07/08/25 08:59 DAILY [facility] Bumetanide 1 mg 06/08/25 09:00 Bumetanide 1 Mg Tablet PO 07/08/25 08:59 DAILY [facility] Buspirone HCl 7.5 mg 06/07/25 21:00 Buspirone Hcl 5 Mg Tablet PO 07/07/25 20:59 BID [facility] Empagliflozin 10 mg 06/08/25 09:00 Empagliflozin 10mg Tablet PO 07/08/25 08:59 DAILY [facility] Ferrous Sulfate 325 mg 06/08/25 09:00 Ferrous Sulfate 325mg Tablet PO 07/08/25 08:59 DAILY [facility] Fluticasone/Umeclidinium/Vilanterol 1 puff 06/08/25 09:00 Fluticasone/Umeclidin/Vilanter 200/62.5/25mcg Inhaler IH 07/08/25 08:59 DAILY GLENNY Levothyroxine Sodium 25 mcg 06/08/25 07:00 Levothyroxine 25mcg (0.025mg) Tab PO 07/08/25 06:59 DAILYDM GLENNY Metoprolol Succinate 25 mg 06/08/25 09:00 Metoprolol Succinate Xl 25mg Tablet PO 07/08/25 08:59 DAILY GLENNY Pantoprazole Sodium 40 mg 06/07/25 21:00 Pantoprazole 40mg Tablet PO 07/07/25 20:59 HS GLENNY Discontinued Medications Generic Name Dose Route Start Last Admin Trade Name Freq PRN Reason Stop Dose Admin Albuterol/Ipratropium 9 ml 06/07/25 12:06 06/07/25 12:47 Ipratropium/Albuterol 3 Ml Neb IH 06/07/25 12:07 9 ml ONCE ONE Administration Magnesium Sulfate 2 gm in 50 mls @ 50 mls/hr 06/07/25 12:06 06/07/25 15:10 Magnesium Sulfate 2gm/50ml Premix IV 06/07/25 13:05 Infused ONCE ONE Infusion Irbesartan 75 mg 06/07/25 15:29 06/07/25 17:49 Irbesartan 75mg Tablet PO 06/07/25 15:30 75 mg ONCE ONE Administration ORDERS Category Date Time Status CXR --portable [XR chest portable] Stat Exams 06/07/25 12:06 Completed BNP [NT Pro Brain Natriuretic Pep.] Stat Lab 06/07/25 12:05 Completed Basic Metabolic Panel AMLAB Lab 06/08/25 06:00 Ordered CBC w/Auto Diff [Complete Blood Count Auto Diff] Stat Lab 06/07/25 12:05 Completed CMP [Comprehensive Metabolic Panel] Stat Lab 06/07/25 12:05 Completed Complete Blood Count Auto Diff AMLAB Lab 06/08/25 06:00 Ordered Magnesium AMLAB Lab 06/08/25 06:00 Ordered Rapid PCR Covid and Flu A/B Stat Lab 06/07/25 13:40 Completed Trop I [Troponin I] Stat Lab 06/07/25 12:05 Completed Troponin I Q3H Lab 06/07/25 16:24 Completed Troponin I Q3H Lab 06/07/25 19:44 Received VBG [Venous Blood Gas] Stat RT 06/07/25 12:15 Completed VBG [Venous Blood Gas] Stat RT 06/07/25 14:30 Completed
--- NOTE | 2025-06-07 12:16 | PC.NURSE ---
XR AT BEDSIDE
[2025-06-07 12:22] LABS: Hematocrit 27.8 % (37.0-47.0); Hemoglobin 8.1 g/dL (12.2-16.2); Immature Granulocytes % 0.2 %; Mean Corpuscular HGB Conc 29.1 g/dL (31.8-35.4); Mean Corpuscular Hemoglobin 24.6 pg (27.0-31.2); Mean Corpuscular Volume 84.5 fl (81-99); Nucleated Red Blood Cells % 0 %; Platelet Count 181 K/mm3 (142-424); Red Blood Count 3.29 M/mm3 (4.20-5.40); Red Cell Distribution Width-SD 58.0 fL; White Blood Count 4.6 K/mm3 (4.8-10.8)
[2025-06-07 12:22] LABS: Lactate Venous 1.2 mmol/L (0.4-2.0); VBG HCO3 26.4 mmol/L (23-30); VBG PH 7.29 mmol/L (7.31-7.41); VBG PO2 43.5 mmol/L (28-40)
[2025-06-07 12:25] LABS: VBG PCO2 56.8 mmol/L (35-51)
[2025-06-07 12:26] LABS: Albumin Level 2.8 g/dl (3.5-5.0); Chloride 104 mmol/L (98-107)
[2025-06-07 12:27] LABS: Potassium 4.5 mmoL/L (3.5-5.1); Sodium 137 mmol/L (136-145)
[2025-06-07 12:29] LABS: Blood Urea Nitrogen 30 mg/dl (7-17); Creatinine Clearance Estimated 36 mL/min (50-200); Creatinine,Serum 1.50 mg/dl (0.52-1.04); Estimated Glomerular Filt Rate 33 ml/min (>60); GFR (African American) 40 ML/MIN (>60)
[2025-06-07 12:30] LABS: Alanine Aminotransferase 10 U/L (12-78); Albumin/Globulin Ratio 0.7 (1.1-1.8); Alkaline Phosphatase 98 U/L (38-126); Anion Gap 7.5 mEq/L (5-15); Aspartate Amino Transferase 19 U/L (14-36); Bilirubin,Total 0.4 mg/dl (0.2-1.3); Calcium 8.3 mg/dl (8.4-10.2); Carbon Dioxide 30 mmol/L (22.0-30.0); Globulin 4.0 g/dL (1.3-3.2); Glucose 94 mg/dl (74-100); Total Protein,Serum 6.8 g/dl (6.3-8.2)
--- NOTE | 2025-06-07 12:34 | PC.NURSE ---
RESPIRATORY NOTIFIED OF BI-PAP ORDER
[2025-06-07 12:39] LABS: NT Pro Brain Natriuretic Pep. 2730 pg/mL (0-450)
[2025-06-07 12:47] LABS: Troponin I 0.01 ng/ml (0.00-0.034)
[2025-06-07] MEDS: IPRATROPIUM/ALBUTEROL 3 ML NEB 9 ML IH (12:47)
[2025-06-07] MEDS: MAGNESIUM SULFATE IN WATER 2 GM/50 ML PIGGYBACK IV (12:47)
[2025-06-07 13:46] LABS: Coronavirus 19, PCR Not Detected (NotDetected); Influenza A, PCR Not Detected (NotDetected); Influenza B, PCR Not Detected (NotDetected)
[2025-06-07 14:38] LABS: Lactate Venous 0.8 mmol/L (0.4-2.0); VBG HCO3 24.5 mmol/L (23-30); VBG PH 7.29 mmol/L (7.31-7.41); VBG PO2 65.5 mmol/L (28-40)
[2025-06-07 14:42] LABS: VBG PCO2 52.0 mmol/L (35-51)
--- NOTE | 2025-06-07 15:09 | PC.NURSE ---
DIRECTOR OF ROTC NOTIFIED OF ADMISSION
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
--- NOTE | 2025-06-07 16:05 | PC.NURSE ---
REPORT GIVEN TO SAVANNA FALLON FOR ROOM 261 IN ICU
[2025-06-07 17:21] LABS: Troponin I 0.02 ng/ml (0.00-0.034)
[2025-06-07] MEDS: IRBESARTAN 75MG TABLET 75 MG PO (17:49)
[2025-06-07] MEDS: IPRATROPIUM/ALBUTEROL 3 ML NEB IH ×2 (18:05→22:06)
--- NOTE | 2025-06-07 18:37 | PC.WOUNDNOTE ---
Right lower leg.
--- NOTE | 2025-06-07 18:38 | PC.WOUNDNOTE ---
width of sore on right lower leg
--- NOTE | 2025-06-07 18:39 | PC.WOUNDNOTE ---
right leg on the back side
--- NOTE | 2025-06-07 18:40 | PC.WOUNDNOTE ---
left leg width of sore
--- NOTE | 2025-06-07 20:05 | PC.NURSE ---
BLE wounds cleaned, non-adherent dsg applied to ulcerations, wrapped in kerlex with name/date/time. Redness noted to bottom, area is closed, optifoam in place for prevention. Yeasty, open reddened area under right abd fold - cleaned and powdered. Patient requested BiPAP back on.
[2025-06-07 20:30] LABS: Troponin I 0.02 ng/ml (0.00-0.034)
[2025-06-07] MEDS: PANTOPRAZOLE 40MG TABLET 40 MG PO (21:49)
[2025-06-07] MEDS: BUSPIRONE HCL 5 MG TABLET 7.5 MG PO (21:49)
[2025-06-07] MEDS: APIXABAN 5MG TABLET 5 MG PO (21:49)
[2025-06-08] VITALS (17 sets, daily range): BP systolic 111–141; BP diastolic 53–65; PULSE 55–70; RESP 13–31; TEMP 36.7–37.1; O2SAT 92–98; BMI 30.6; BMI 28.5
--- NOTE | 2025-06-08 05:28 | PC.NURSE ---
patient wanted to take BiPAP off - currently on 3L NC @ 93%
[2025-06-08] MEDS: IPRATROPIUM/ALBUTEROL 3 ML NEB IH (06:02)
[2025-06-08] MEDS: FLUTICASONE/UMECLIDIN/VILANTER 200/62.5/25MCG INHALER 1 PUFF IH (06:05)
[2025-06-08 06:20] LABS: Anion Gap 5.7 mEq/L (5-15); Blood Urea Nitrogen 27 mg/dl (7-17); Calcium 8.2 mg/dl (8.4-10.2); Carbon Dioxide 31 mmol/L (22.0-30.0); Chloride 106 mmol/L (98-107); Creatinine Clearance Estimated 40 mL/min (50-200); Creatinine,Serum 1.40 mg/dl (0.52-1.04); Estimated Glomerular Filt Rate 36 ml/min (>60); GFR (African American) 44 ML/MIN (>60); Glucose 93 mg/dl (74-100); Hematocrit 26.0 % (37.0-47.0); Hemoglobin 7.6 g/dL (12.2-16.2); Immature Granulocytes % 0.4 %; Magnesium 2.3 mg/dl (1.6-2.3); Mean Corpuscular HGB Conc 29.2 g/dL (31.8-35.4); Mean Corpuscular Hemoglobin 24.7 pg (27.0-31.2); Mean Corpuscular Volume 84.4 fl (81-99); Nucleated Red Blood Cells % 0 %; Platelet Count 158 K/mm3 (142-424); Potassium 5.7 mmoL/L (3.5-5.1); Red Blood Count 3.08 M/mm3 (4.20-5.40); Red Cell Distribution Width-SD 57.8 fL; Sodium 137 mmol/L (136-145); White Blood Count 4.5 K/mm3 (4.8-10.8)
[2025-06-08 06:27] LABS: C-Reactive Protein 8.3 mg/L (0-4)
[2025-06-08] MEDS: LEVOTHYROXINE 25MCG (0.025MG) TAB 25 MCG PO (07:19)
[2025-06-08 07:58] LABS: Lactate Venous 0.9 mmol/L (0.4-2.0); VBG HCO3 28.0 mmol/L (23-30); VBG PH 7.34 mmol/L (7.31-7.41); VBG PO2 142.1 mmol/L (28-40)
[2025-06-08 08:00] LABS: VBG PCO2 53.3 mmol/L (35-51)
[2025-06-08] MEDS: FERROUS SULFATE 325MG TABLET 325 MG PO (08:31)
[2025-06-08] MEDS: EMPAGLIFLOZIN 10MG TABLET 10 MG PO (08:31)
[2025-06-08] MEDS: ASPIRIN EC 81MG TABLET 81 MG PO (08:32)
[2025-06-08] MEDS: BUMETANIDE 1MG/4ML VIAL 2 MG IV ×2 (08:32→16:04)
[2025-06-08] MEDS: ALLOPURINOL 100MG TABLET 100 MG PO (08:32)
[2025-06-08] MEDS: BUSPIRONE HCL 5 MG TABLET 7.5 MG PO ×2 (08:32→21:59)
[2025-06-08] MEDS: APIXABAN 5MG TABLET 5 MG PO ×2 (08:33→21:59)
[2025-06-08] MEDS: METOPROLOL SUCCINATE XL 25MG TABLET 25 MG PO (09:01)
--- NOTE | 2025-06-08 09:04 | HMH.PTEV ---
Physical Therapy Evaluation Rehab PT IP Evaluation Start: 06/07/25 17:29 Freq: ONCE Status: Active Protocol: Document 06/08/25 08:59 BRIAN (Rec: 06/08/25 09:04 BRIAN [id number]) Subjective/History History History Per H&P: The patient is an 80-year-old female that presented to [facility] emergency department with shortness of air over several days not improving with home therapy. Her past medical history significant for COPD with 2 L of oxygen at baseline. It also includes congestive heart failure with reduced ejection fraction, hypertension and previously identified lung nodule. She reports dyspnea made worse with exertion associated croupy cough with no production. She denies hemoptysis, fever, chills, nausea, vomiting or diarrhea. She reports that she is out of her albuterol inhaler. Her ED provider identified and we discussed her greater than 25 medications on her allergy list with several of them prescribed currently. She declined IV or p.o. steroid therapy in the ED. Her admission VBG identified hypercapnia. Hospital medicine was asked to admit for presenting hypercapnia and COPD exacerbation. Subjective Subjective Pt reports she lives alone in a single-story home with ramped entrance. Pt normally IND with transfers to/from her electric w/c . Pt uses her electric w/c for all mobility. Pt reports one fall in the past 6 months d/t w/c getting caught. Pt reports I don't need any help getting around [facility] How much help from another person do you currently need... Turning from your None back to your side while in a flat bed without using bedrails? Moving from lying on None back to sitting on the side of a flat bed without using bedrails? Moving to and from a None bed to a chair ( including a wheelchair)? Standing up from a None chair using your arms? (e.g., wheelchair, bedside chair) Walking in hospital A lot room? Climbing 3-5 steps A lot with a railing? Mobility Score 20 Mobility Level [facility] Mobility 6 Walk 10 steps or more Mobility Calculator Rehab PT IP Eval Objective Appearance Patient Behavior Appropriate,Cooperative Patient Orientation Person,Place Difficulty following none instructions Speech Pattern Clear Ambulation Patient Able to No Ambulate Balance Ability to Arise Able, uses arms to help Sitting Balance Steady, safe Standing Balance Unsteady Dynamic Sitting Good Balance Ability Dynamic Standing Fair Balance Ability Transfers Bed Transfer Ability Supervision/Stand by Sit to Stand Bed Supervision/Stand by Transfer Ability Rehab PT IP prob,goals,plan Problems Date of Evaluation: 06/08/25 PT IP Problems Bed Mobility,Transfers,Gait,Balance,Self care,Safety Rehab Potential Rehab Potential Good Plan PT Intervention Plan Bed Mobility,Transfers,Gait,Balance,Self care,Safety, Therapeutic Exercise Other Intervention 1-2 times Plan PT Plan Frequency Daily Duration LOS Discharge Goals Bed Transfer Ability Independent Sit to Stand Chair Independent Transfer Ability Discharge Plan PT Discharge Plan Pt presents mildly below baseline in mobility and would benefit from skilled acute care therapy to address strength deficits and prevent further functional decline. Pt most appropriate for PT upon d/c from [facility]. Eval Complexity Eval Charge Codes 65947 - Moderate Complexity PHYSICIAN CERTIFICATION: I certify the specified therapy services for Lian Bliss are required, authorized, and reviewed every 30 days.
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
[2025-06-08 09:40] LABS: Hemoglobin A1C 4.7 % (4.0-6.0)
--- NOTE | 2025-06-08 09:59 | HMH.OTEV ---
OT Evaluation Rehab OT IP Evaluation Start: 06/07/25 17:29 Freq: ONCE Status: Active Protocol: Document 06/08/25 09:52 YOKO (Rec: 06/08/25 09:59 YOKO [id number]) Rehab OT IP Assessment Subjective History Per H&P: The patient is an 80-year-old female that presented to [facility] emergency department with shortness of air over several days not improving with home therapy. Her past medical history significant for COPD with 2 L of oxygen at baseline. It also includes congestive heart failure with reduced ejection fraction, hypertension and previously identified lung nodule. She reports dyspnea made worse with exertion associated croupy cough with no production. She denies hemoptysis, fever, chills, nausea, vomiting or diarrhea. She reports that she is out of her albuterol inhaler. Her ED provider identified and we discussed her greater than 25 medications on her allergy list with several of them prescribed currently. She declined IV or p.o. steroid therapy in the ED. Her admission VBG identified hypercapnia. Hospital medicine was asked to admit for presenting hypercapnia and COPD exacerbation. Subjective I do not have home health right now. Pt supine in bed when therapy arrived. Pt agreed to OT eval this AM. Pt reports she lives alone in a single- story home with ramped entrance. Pt reported normally IND with functional mobility and transfers to/from her electric w/c. Pt uses her electric w/c for all functional mobility. Pt reports one fall in the past 6 months d/t w/c getting caught with blanket and w/c. Pt went from supine to EOB with SUP/SBA. Pt then completed STS with SUP/SBA. Pt presented with unsteady balance and unable to tolerate static standing balance for over 30 secs. Pt then sat on EOB and went to supine position with SBA . Pt left supine in bed with call light and all other needs within reach. Objective Patient Orientation Person,Place,Birthday Right Upper WFL Extremity Gross ROM Left Upper Extremity WFL Gross ROM Bed Mobility bed mobility-scooting,bed mobility - supine/sit Assist Level Supervision/Stand by Transfer Training Sit/Stand Transfer Assist Level Supervision/Stand by Chair Transfer Sit to/from Ambulatory Technique Chair Transfer None Assistive Devices Feeding Ability Assist with Tray Set Up Decrease in Yes Endurance Rehab OT IP prob,goals,plan Problems Date of Evaluation: 06/08/25 OT IP Problems Bed Mobility,Transfers,Balance,Self care,Safety Rehab Potential Rehab Potential Good Equipment Needs Assistive Devices Wheelchair Plan OT intervention Plan Bed Mobility,Transfers,Balance,Self care,Safety, Therapeutic Exercise OT Plan Frequency Daily Duration LOS Discharge Goals Bed Mobility Ability Independent Sit to Stand Chair Independent Transfer Ability Chair Transfer Independent Ability Chair Transfer Sit to/from Ambulatory Technique Feeding Ability Assist with Tray Set Up Decrease in No Endurance Discharge Plan OT Discharge Plan At this time, pt would benefit from skilled acute OT services while admitted at [facility] to address functional decline in occupational performance. Once DC from [facility], pt could benefit from OT services to improve optimal occupational performance. Eval Complexity Eval Charge Codes 51767 - Moderate Complexity PHYSICIAN CERTIFICATION: I certify the specified therapy services for Lian Bliss are required, authorized, and reviewed every 30 days.
--- NOTE | 2025-06-08 10:11 | HMH.PHAINT1 ---
Pharmacy Intervention Comments: MEDICATION RECONCILIATION COMPLETED ON PATIENT USING EXTERNAL FILL HISTORY FROM PHARMACY, DISCHARGE SUMMARY FROM PREVIOUS ADMISSION, AND LIST FROM ONCOLOGY OFFICE. -ELIO MARTINEZ, PHARMD
--- NOTE | 2025-06-08 10:39 | CA_ITS ---
FINAL REPORT TECHNIQUE: Bilateral lower extremity venous duplex was performed with augmentation and compression. CLINICAL HISTORY: COPD, SOA FINDINGS: Proper flow is seen throughout the deep venous systems bilaterally. There is no evidence of deep venous thrombosis. IMPRESSION: No evidence of deep venous thrombosis. Reviewed, Interpreted and Dictated by Nadir Hall MD Transcribed by Noni Overton Authenticated and [facility]
--- NOTE | 2025-06-08 11:57 | CT_ITS ---
FINAL REPORT TECHNIQUE: The patient was injected with IV contrast. Axial images were obtained through the chest in a PE protocol. 3-D reconstruction images were also performed. Individualized dose reduction techniques using automated exposure control or adjustment of the MA and/or KV according to patient's size were employed. CLINICAL HISTORY: Hypoxia COMPARISON: 09/06/2021 FINDINGS: Mediastinal vasculature is adequately opacified. No pulmonary artery filling defects are identified to suggest PE. There is no aortic dissection. There is no axillary adenopathy. There is no hilar or mediastinal adenopathy. The heart size is normal. There are small bilateral effusions. Minimal pericardial effusion is identified. There is patchy bibasilar consolidation. Atelectasis seen at the bases. Limited images of the upper abdomen are unremarkable. IMPRESSION: No pulmonary embolism or dissection. Patchy bibasilar consolidation with small bilateral effusions. Reviewed, Interpreted and Dictated by Nadir Hall MD Transcribed by Nettie Cornell Authenticated and . [facility]
--- NOTE | 2025-06-08 11:59 | SW/DCPLANNER ---
Addendum entered by Day Wilkes 06/08/25 15:00: [facility] has accepted patient. Rick Ambrocio Original Note: Spoke with patient regarding home health once she is medically stable and ready for discharge. Patient stated that she is interested in home health and does not have a preference in what agency i send her information to. I will fax patient's information to [facility] and will update once i hear back if they can accept. Rick Ambrocio
[2025-06-08] MEDS: SODIUM CHLORIDE 0.9% 10ML SYR (RAD ONLY) 10 ML IV (13:03)
[2025-06-08] MEDS: 0.9 % SODIUM CHLORIDE 50 ML VIAL IV (13:03)
[2025-06-08] MEDS: IOPAMIDOL-370 (76%);100ML BOTTLE 70 ML IV (13:03)
--- NOTE | 2025-06-08 13:41 | HMH.SLDYSPHA ---
Speech & Language Evaluation Speech/Language Dysphagia Evaluation Start: 06/08/25 13:26 Freq: ONCE Status: Active Protocol: Document 06/08/25 13:26 ARSALANRAY (Rec: 06/08/25 13:41 [facility] [id number]) Dysphagia Assess/Goals/Plan Assessment Date of Evaluation: 06/08/25 Evaluation Type Initial Certification Assessment/Problems dysphagia per MD order Does Patient Qualify No for Service Qualify/Failure Based on clinical observation made throughout CSE, pt's Comment mastication and manipulation of bolus and swallowing were WFL given age and lack of dentition. Pt would benefit from downgraded diet 2' edentulous status, however, she was disagreeable to the clinical recommendation given by CAREER EDUCATION TEACHER therefore no further skilled speech therapy services are warranted at this time 2' noncompliance. Recommendations PHYSICIAN CERTIFICATION: The specified therapy services are required, authorized, and reviewed every 30 days. Diet Recommendations rec: MS sanchez, but pt noncomplaint and wishes to stay on regular Liquid Type Normal/Thin Recommendations SL Swallow Alt bite w/sip thru meal,Standard Aspiration Prec.,Eat Guidelines at slow rate,Reflux precautions Dysphagia Swallow Sitting Upright (90 deg),Small Bites and Sips,Alternate Precautions/ Liquids/Solids Strategies Plan Pt/Guardian verbally Yes ack understanding of dx/prognosis/ goals G -code Required No Education Instructions Discussed CSE results and diet recommendations with pt, provided nursing, and care management all of which expressed understanding. Pt/Caregiver able to Able to recall/restate recall information Reinforcement needed No Speech & Language HPI History Present Illness Description of CAREER EDUCATION TEACHER pulled following information from chart review and Patient Problem H&P, patient is an 80-year-old female that presented to [facility] emergency department with shortness of air over several days not improving with home therapy. Her past medical history significant for COPD with 2 L of oxygen at baseline. It also includes congestive heart failure with reduced ejection fraction, hypertension and previously identified lung nodule. She reports dyspnea made worse with exertion associated croupy cough with no production. She denies hemoptysis, fever, chills, nausea, vomiting or diarrhea. She reports that she is out of her albuterol inhaler. Her ED provider identified and we discussed her greater than 25 medications on her allergy list with several of them prescribed currently. She declined IV or p.o. steroid therapy in the ED. Her admission VBG identified hypercapnia. Hospital medicine was asked to admit for presenting hypercapnia and COPD exacerbation. CXR reports, FINDINGS: A single view of the chest was obtained. The heart is mildly enlarged. The lungs are underinflated with chronic changes in the perihilar regions. There is no pneumothorax. IMPRESSION: Underinflation with chronic changes in the perihilar regions. Nursing reports hiatal hernia Pt/Caregiver States she is only able to take pills in cheese and Concerns regurgitates. Reports hx of GERD. Rehab Services Speech therapy Assessed Language Primary Language Slovenian General Information General Current Food Regular,Thin Liquids Consistancy Dentition Edentulous Patient Orientation Person,Place,Time Ability to Follow Good Directions Communication Mild Impairment Ability Dysphagia:Food Presentation Evaluation Food Type Pureed,Mechanical Soft,Regular,Liquid Dysphagia Evaluation Pt was seen sitting upright in her chair this afternoon Summary eating her lunch. She was A&Ox3. She was observed drinking tea, pepsi, and water with both open cup and straw sips, chips, baked potato, peas, and pork. She also was observed eating ice cream. No overt s/sxs of aspiration were noted throughout the CSE. Pt was observed to have difficulty masticating and manipulating meat bolus. CAREER EDUCATION TEACHER attempted education for various diet texture types including mechanical soft chopped and ground meat diets that would be easier to chew. Pt was disagreeable and stated she would be noncompliant with these diets and wished to stay on regular diet. CAREER EDUCATION TEACHER provided education on standard aspiration precautions and pt expressed understanding. At this time, no further skilled speech therapy services are warranted at this time. Stroke Dysphagia Assessment PHYSICIAN CERTIFICATION: I certify the specified therapy services for Lian Bliss are required, authorized, and reviewed every 30 days.
--- NOTE | 2025-06-08 14:52 | PC.NURSE ---
Hospitalist Stefan Duran wanted a walk test done on patient. Patient does not walk she gets around in a motorized wheel chair at home. Stefan Duran is aware
--- NOTE | 2025-06-08 16:33 | EXP.PN ---
Subjective *Date: 06/08/25 *Time: 16:33 Interval history: Patient feels better today, will continue diuresis acute HFrEF. Started levofloxacin for lower extremity draining wounds. Exam Data for Last 24 hours Vital signs and Labs for Last 24 Hours: Temp Pulse Resp BP Pulse Ox O2 Del Method O2 Flow Rate 98.1 F 60 21 137/58 L 94 L Nasal Cannula 2 06/08/25 16:06 06/08/25 16:00 06/08/25 12:00 06/08/25 16:03 06/08/25 16:00 06/08/25 16:00 06/08/25 16:00 FiO2 30 06/08/25 04:01 Laboratory Results - last 24 hr 06/07/25 16:24: Troponin I 0.02 06/07/25 19:44: Troponin I 0.02 06/08/25 04:39: WBC 4.5 L, RBC 3.08 L, Hgb 7.6 L, Hct 26.0 L, MCV 84.4, MCH 24.7 L, MCHC 29.2 L, RDW 18.9 H, Plt Count 158, MPV TNP, Neut % (Auto) 69.2, Lymph % (Auto) 17.2, Gilmer % (Auto) 8.8, Eos % (Auto) 4.0, Baso % (Auto) 0.4, Neut # (Auto) 3.1, Lymph # (Auto) 0.8, Gilmer # (Auto) 0.4, Eos # (Auto) 0.2, Baso # (Auto) 0.0, ESR 23, Sodium 137, Potassium 5.7 H D, Chloride 106, Carbon Dioxide 31 H, Anion Gap 5.7, BUN 27 H, Creatinine 1.40 H, Estimated Creat Clear 40, Estimated GFR 36 L, Est GFR ( Amer) 44 L, Glucose 93, Hemoglobin A1c 4.7, Calcium 8.2 L, Magnesium 2.3, C-Reactive Protein 8.3 H 06/08/25 07:35: VBG pH 7.34, VBG pCO2 53.3 H, VBG pO2 142.1 H, VBG HCO3 28.0, VBG Total CO2 29.6 H, VBG O2 Saturation 98.7 H, VBG Base Excess 2.2, VBG Lactic Acid 0.9 I & O for Last 24 hours: Intake & Output 06/05/25 06/06/25 06/07/25 06/08/25 23:59 23:59 23:59 23:59 Intake Total 50 / 180 770 / 770 Output Total 120 / 120 1999 Balance -70 / 60 -1230 / -1230 Weight 75.296 kg 78.426 kg Constitutional Constitutional: no acute distress *Routine HEENT Exam Head: Present normocephalic Eye: Present EOMI and PERRL ENT: Present mucous membranes moist *Routine Neck Exam Neck: Present supple; Absent lymphadenopathy *Routine Respiratory Exam Respiratory: Present CTA bilaterally *Routine Cardiovascular Exam Cardiovascular: Present RRR *Routine Abdominal Exam Abdominal: Present soft and normoactive bowel sounds; Absent tenderness *Routine Extremities Exam Extremities: Present edema; Absent cyanosis or clubbing Comments: Lower extremity venous stasis wounds, open, draining. *Routine Skin Exam Skin: Present warm and lesions; Absent rash *Routine Neurological Exam Neurological: Present alert and oriented X3 Assessment and Plan *Assessment and plan (1) Acute on chronic respiratory failure with hypoxia and hypercapnia: Status: Acute Category: Medical Code(s): J96.21 - Acute and chronic respiratory failure with hypoxia; J96.22 - Acute and chronic respiratory failure with hypercapnia (2) COPD exacerbation: Status: Acute Category: Medical Code(s): J44.1 - Chronic obstructive pulmonary disease with (acute) exacerbation (3) Acute on chronic systolic heart failure: Status: Acute Category: Medical Code(s): I50.23 - Acute on chronic systolic (congestive) heart failure (4) Atrial fibrillation: Status: Acute Qualifiers: Atrial fibrillation type: paroxysmal Qualified Code(s): I48.0 - Paroxysmal atrial fibrillation Category: Medical Code(s): I48.91 - Unspecified atrial fibrillation (5) Hypothyroidism: Status: Acute Category: Medical Code(s): E03.9 - Hypothyroidism, unspecified (6) Chronic wound of extremity: Status: Acute Category: Medical (7) Lymphedema of both lower extremities: Status: Acute Category: Medical Code(s): I89.0 - Lymphedema, not elsewhere classified Plan This is an 80-year-old female who presents to the ED with shortness of air with chronic COPD on home oxygen 2 L. She reports running out of her medications and describes multiple allergies to medications. Problems addressed as follows: Of note, patient at baseline does not ambulate. She uses motorized wheelchair to get around at home. Acute on chronic hypoxic and hypercapnic respiratory failure COPD exacerbation Pulse oximetry monitoring Initial ED VBG with pH = 7.29, pCO2 = 52, pO2 = 65.5 ED chest x-ray with no acute disease and chronic changes noted Oxygen therapy to maintain appropriate oxygen saturations Currently requiring 3 L via nasal cannula (home O2 requirement 2 L) Initially was placed on BiPAP, no longer needed. Saturating appropriately on home 2 L nasal cannula with no respiratory distress. Kaia/Jimi inhalation therapy ICS/LABA/LAMA therapy ? Pulmonology consulted, advised to continue Trelegy 100. Obtained CTA chest which was suggestive of acute HFrEF. Will continue diuresis as below. Acute on chronic HFrEF (stage C/NYHA IV) Telemetry monitoring Accurate I's and O's Routine weights Sodium and fluid restriction LHC (01/06/2025: Normal ejection fraction with nonobstructive coronary artery disease Echo(04/08/2025): EF 50%, LVH, moderate aortic stenosis ECG: Sinus rhythm, LAD, rate 67 with QTc 397 MS ? Started IV Bumex 2 mg twice daily, has already had 2 L urine output. Follow-up electrolytes, RFT's. SGLT2 inhibitor therapy Beta-cesilia therapy ARB therapy MAR therapy precluded by patient reported allergen Trending labs and inflammatory markers ? Anticipate discharge in the morning once more euvolemic. #Dysphagia ? Patient states she often regurgitates, has dysphagia symptoms. Speech therapy consulted, recommended mechanical ground the patient refuses and instead wants regular meals. Atrial fibrillation Chronically anticoagulated with Eliquis Telemetry monitoring ECG with sinus rhythm Beta-cesilia therapy Hypothyroidism Levothyroxine replacement therapy Chronic RLE wound Chronic venous stasis Wound care Trending labs and inflammatory markers ? Started levofloxacin 750 mg daily, wound care consulted, pending recommendations.
--- NOTE | 2025-06-08 20:12 | PC.NURSE ---
Contacted respiratory about using BiPAP at night, stated she is not using the BiPAP at night.
--- NOTE | 2025-06-08 20:50 | PC.NURSE ---
Patient transfered to [facility] via wheelchair from ICU unit @20:22
[2025-06-08] MEDS: PANTOPRAZOLE 40MG TABLET 40 MG PO (21:59)
[2025-06-09] VITALS: BP 140/65; PULSE 64; RESP 16; TEMP 36.8; O2SAT 91
--- NOTE | 2025-06-09 00:50 | PC.NURSE ---
replaced dsg to BLE - applied nonadherent dsg to ulcerations to prevent sticking, kerlex with tape/name/date/time. Pending wound eval for guidance.
[2025-06-09] MEDS: MELATONIN 5MG TABLET 5 MG PO (02:48)
[2025-06-09] MEDS: ACETAMINOPHEN 325MG TAB 1000 MG PO (02:49)
[2025-06-09 04:00] VITALS: BP 128/56; PULSE 59; RESP 18; TEMP 36.8; O2SAT 92; BMI 28.8
[2025-06-09 06:18] LABS: Hematocrit 27.1 % (37.0-47.0); Hemoglobin 7.8 g/dL (12.2-16.2); Immature Granulocytes % 0.2 %; Mean Corpuscular HGB Conc 28.8 g/dL (31.8-35.4); Mean Corpuscular Hemoglobin 24.3 pg (27.0-31.2); Mean Corpuscular Volume 84.4 fl (81-99); Nucleated Red Blood Cells % 0 %; Platelet Count 165 K/mm3 (142-424); Red Blood Count 3.21 M/mm3 (4.20-5.40); Red Cell Distribution Width-SD 57.5 fL; White Blood Count 4.8 K/mm3 (4.8-10.8)
[2025-06-09 06:20] LABS: Alanine Aminotransferase 8 U/L (12-78); Albumin Level 2.5 g/dl (3.5-5.0); Anion Gap 8.4 mEq/L (5-15); Aspartate Amino Transferase 21 U/L (14-36); Bilirubin,Total 0.4 mg/dl (0.2-1.3); Blood Urea Nitrogen 35 mg/dl (7-17); Calcium 8.4 mg/dl (8.4-10.2); Carbon Dioxide 35 mmol/L (22.0-30.0); Chloride 98 mmol/L (98-107); Creatinine Clearance Estimated 35 mL/min (50-200); Creatinine,Serum 1.50 mg/dl (0.52-1.04); Estimated Glomerular Filt Rate 33 ml/min (>60); GFR (African American) 40 ML/MIN (>60); Glucose 95 mg/dl (74-100); Magnesium 1.9 mg/dl (1.6-2.3); Potassium 4.4 mmoL/L (3.5-5.1); Sodium 137 mmol/L (136-145); Total Protein,Serum 6.1 g/dl (6.3-8.2)
[2025-06-09 06:21] LABS: Albumin/Globulin Ratio 0.7 (1.1-1.8); Alkaline Phosphatase 88 U/L (38-126); Globulin 3.6 g/dL (1.3-3.2)
[2025-06-09] MEDS: LEVOTHYROXINE 25MCG (0.025MG) TAB 25 MCG PO (06:46)
[2025-06-09 08:00] VITALS: BP 113/49; PULSE 108; RESP 16; TEMP 36.7; O2SAT 91
[2025-06-09] MEDS: ASPIRIN EC 81MG TABLET 81 MG PO (08:44)
[2025-06-09] MEDS: BUMETANIDE 1 MG TABLET 2 MG PO (08:44)
[2025-06-09] MEDS: BUSPIRONE HCL 5 MG TABLET 7.5 MG PO (08:45)
[2025-06-09] MEDS: EMPAGLIFLOZIN 10MG TABLET 10 MG PO (08:45)
[2025-06-09] MEDS: ALLOPURINOL 100MG TABLET 100 MG PO (08:45)
[2025-06-09] MEDS: METOPROLOL SUCCINATE XL 25MG TABLET 25 MG PO (08:45)
[2025-06-09] MEDS: APIXABAN 5MG TABLET 5 MG PO (08:45)
[2025-06-09] MEDS: FERROUS SULFATE 325MG TABLET 325 MG PO (08:45)
[2025-06-09] MEDS: FLUTICASONE/UMECLIDIN/VILANTER 200/62.5/25MCG INHALER 1 PUFF IH (10:13)
--- NOTE | 2025-06-09 12:05 | EXP.DC.SUM ---
General Admission date:: 06/07/25 HPI HPI HPI: The patient is an 80-year-old female that presented to [facility] emergency department with shortness of air over several days not improving with home therapy. Her past medical history significant for COPD with 2 L of oxygen at baseline. It also includes congestive heart failure with reduced ejection fraction, hypertension and previously identified lung nodule. She reports dyspnea made worse with exertion associated croupy cough with no production. She denies hemoptysis, fever, chills, nausea, vomiting or diarrhea. She reports that she is out of her albuterol inhaler. Her ED provider identified and we discussed her greater than 25 medications on her allergy list with several of them prescribed currently. She declined IV or p.o. steroid therapy in the ED. Her admission [facility] identified hypercapnia. Hospital medicine was asked to admit for presenting hypercapnia and COPD exacerbation. Hospital Course Hospital Course Hospital Course: This is an 80-year-old female who presents to the ED with shortness of air with chronic COPD on home oxygen 2 L. She reports running out of her medications and describes multiple allergies to medications. Problems addressed as follows: Of note, patient at baseline does not ambulate. She uses motorized wheelchair to get around at home. Acute on chronic hypoxic and hypercapnic respiratory failure COPD exacerbation ? Presented with shortness of breath, found to be in acute hypercapnic respiratory failure which improved with breathing treatments. ? Clinically improved with DuoNebs, Pulmicort, steroids, levofloxacin. ? Pulmonology consulted, advised to continue Trelegy 100. CTA chest was obtained which showed acute HFpEF. ? Will follow-up with pulmonology within 2 weeks. Acute on chronic HFpEF (stage C/NYHA IV) ? Presented with shortness of breath, also found to be in acute HFpEF. ? Diuresed well with IV Bumex 2 mg twice daily. ? Discharged with increasing home Bumex from 1 mg to 2 mg daily, continue Jardiance 10 mg. #Dysphagia ? Patient states she often regurgitates, has dysphagia symptoms. Speech therapy consulted, recommended mechanical ground the patient refuses and instead wants regular meals. However, patient refused this diet. Atrial fibrillation Chronically anticoagulated with Eliquis ? Continue home metoprolol, Eliquis. Hypothyroidism Continue home levothyroxine 25 mcg. Chronic RLE open wounds Chronic venous stasis Discharged with levofloxacin 750 mg for 3 more doses. Follow-up home health with wound care. Total time spent on discharge: 32 minutes on chart review, counseling, documentation, and direct care with patient. Exam Data for Last 24 hours Vital signs and Labs for Last 24 Hours: Temp Pulse Resp BP Pulse Ox O2 Del Method O2 Flow Rate 98.1 F 108 H 16 113/49 L 91 L Nasal Cannula 2 06/09/25 08:00 06/09/25 08:00 06/09/25 08:00 06/09/25 08:00 06/09/25 08:00 06/09/25 11:53 06/09/25 11:53 FiO2 30 06/08/25 04:01 Laboratory Results - last 24 hr 06/09/25 05:27: WBC 4.8, RBC 3.21 L, Hgb 7.8 L, Hct 27.1 L, MCV 84.4, MCH 24.3 L, MCHC 28.8 L, RDW 18.9 H, Plt Count 165, MPV TNP, Neut % (Auto) 65.6, Lymph % (Auto) 18.6, Arthur % (Auto) 9.6 H, Eos % (Auto) 5.6, Baso % (Auto) 0.4, Neut # (Auto) 3.1, Lymph # (Auto) 0.9, Arthur # (Auto) 0.5, Eos # (Auto) 0.3, Baso # (Auto) 0.0, Sodium 137, Potassium 4.4 D, Chloride 98, Carbon Dioxide 35 H, Anion Gap 8.4, BUN 35 H D, Creatinine 1.50 H, Estimated Creat Clear 35, Estimated GFR 33 L, Est GFR ( Amer) 40 L, Glucose 95, Calcium 8.4, Magnesium 1.9 D, Total Bilirubin 0.4, AST 21, ALT 8 L, Alkaline Phosphatase 88, Total Protein 6.1 L, Albumin 2.5 L, Globulin 3.6 H, Albumin/Globulin Ratio 0.7 L I & O for Last 24 hours: Intake & Output 06/06/25 06/07/25 06/08/25 06/09/25 23:59 23:59 23:59 23:59 Intake Total 50 / 180 1510 / 1510 Output Total 120 / 120 3300 / 3300 75 / 75 Balance -70 / 60 -1790 / -1790 -75 / -75 Weight 75.296 kg 72.892 kg 73.709 kg Microbiology Reports for the Last 24 Hours: Microbiology 06/08/25 13:15 Leg,Right - Wound Gram Stain - Final 06/08/25 13:15 Leg,Right - Wound Wound Culture - Preliminary Constitutional Constitutional: no acute distress *Routine HEENT Exam Head: Present normocephalic Eye: Present EOMI and PERRL ENT: Present mucous membranes moist *Routine Neck Exam Neck: Present supple; Absent lymphadenopathy *Routine Respiratory Exam Respiratory: Present CTA bilaterally *Routine Cardiovascular Exam Cardiovascular: Present RRR *Routine Abdominal Exam Abdominal: Present soft and normoactive bowel sounds; Absent tenderness *Routine Extremities Exam Extremities: Present edema; Absent cyanosis or clubbing Comments: Lower extremity venous stasis wounds, open, draining. *Routine Skin Exam Skin: Present warm and lesions; Absent rash *Routine Neurological Exam Neurological: Present alert and oriented X3 Results Data Completed and Pending Labs on day of discharge: Labs from last 24 hours 06/09/25 05:27 WBC 4.8 RBC 3.21 L Hgb 7.8 L Hct 27.1 L MCV 84.4 MCH 24.3 L MCHC 28.8 L RDW 18.9 H Plt Count 165 MPV TNP Neut % (Auto) 65.6 Lymph % (Auto) 18.6 Arthur % (Auto) 9.6 H Eos % (Auto) 5.6 Baso % (Auto) 0.4 Neut # (Auto) 3.1 Lymph # (Auto) 0.9 Arthur # (Auto) 0.5 Eos # (Auto) 0.3 Baso # (Auto) 0.0 Sodium 137 Potassium 4.4 D Chloride 98 Carbon Dioxide 35 H Anion Gap 8.4 BUN 35 H D Creatinine 1.50 H Estimated Creat Clear 35 Estimated GFR 33 L Est GFR ( Amer) 40 L Glucose 95 Calcium 8.4 Magnesium 1.9 D Total Bilirubin 0.4 AST 21 ALT 8 L Alkaline Phosphatase 88 Total Protein 6.1 L Albumin 2.5 L Globulin 3.6 H Albumin/Globulin Ratio 0.7 L Preliminary micro results at discharge 06/08/25 13:15 Wound Culture - Preliminary Leg,Right - Wound DS: Diagnosis Discharge Diagnosis (1) Acute on chronic respiratory failure with hypoxia and hypercapnia: Status: Acute Code(s): J96.21 - Acute and chronic respiratory failure with hypoxia; J96.22 - Acute and chronic respiratory failure with hypercapnia (2) COPD exacerbation: Status: Acute Code(s): J44.1 - Chronic obstructive pulmonary disease with (acute) exacerbation (3) Acute on chronic systolic heart failure: Status: Acute Code(s): I50.23 - Acute on chronic systolic (congestive) heart failure (4) Atrial fibrillation: Status: Acute Code(s): I48.91 - Unspecified atrial fibrillation Qualifiers: Atrial fibrillation type: paroxysmal Qualified Code(s): I48.0 - Paroxysmal atrial fibrillation (5) Hypothyroidism: Status: Acute Code(s): E03.9 - Hypothyroidism, unspecified (6) Chronic wound of extremity: Status: Acute (7) Lymphedema of both lower extremities: Status: Acute Code(s): I89.0 - Lymphedema, not elsewhere classified Meds Home Medications and Allergies Home Medications ?Medication ?Instructions ?Recorded ?Confirmed ?Type famotidine 20 mg tablet 20 mg PO BID 02/18/22 06/07/25 History mirtazapine 15 mg tablet 15 mg PO HS 02/18/22 06/07/25 History pantoprazole 40 mg tablet,delayed 40 mg PO HS 02/18/22 06/07/25 History release buspirone 7.5 mg tablet 7.5 mg PO BID 06/06/22 06/07/25 History levothyroxine 25 mcg tablet 25 mcg PO DAILY 07/03/24 06/07/25 History (Synthroid) aspirin 81 mg tablet,delayed 81 mg PO DAILY #30 tabs 12/24/24 06/07/25 Rx release (Adult Low Dose Aspirin) apixaban 5 mg tablet (Eliquis) 5 mg PO BID 30 days #60 tabs 01/15/25 06/07/25 Rx ergocalciferol (vitamin D2) 1,250 1,250 mcg PO MONTHLY 02/09/25 06/07/25 History mcg (50,000 unit) capsule (Vitamin D2) allopurinol 100 mg tablet 100 mg PO DAILY 03/03/25 06/07/25 History metoprolol succinate 25 mg 25 mg PO DAILY #30 tabs 03/03/25 06/07/25 Rx tablet,extended release 24 hr ferrous sulfate 325 mg (65 mg 325 mg PO BID #60 tabs 04/09/25 06/07/25 Rx iron) tablet multivitamin 1 tab PO DAILY #30 tabs 04/09/25 06/07/25 Rx polyethylene glycol 3350 17 17 g PO DAILY #510 grams 04/09/25 06/07/25 Rx gram/dose oral powder (Miralax) fluticasone 100 mcg-salmeterol 50 1 inh inhalation BID #60 ea 04/15/25 06/07/25 Rx mcg/dose blistr powdr for inhalation (Advair Diskus) sodium ferric gluconate complex in 125 mg IV WEEKLY 4 weeks 05/11/25 06/07/25 Rx sucrose 62.5 mg/5 mL intravenous (Ferrlecit) empagliflozin 10 mg tablet 10 mg PO DAILY 06/08/25 06/08/25 History (Jardiance) bumetanide 2 mg tablet 2 mg PO DAILY 30 days #30 tabs 06/09/25 Rx levofloxacin 750 mg tablet 750 mg PO Q48H 5 days #3 tabs 06/09/25 Rx sertraline 100 mg tablet 100 mg PO DAILY 30 days #0 tabs 06/09/25 06/07/25 Rx New Prescriptions to Start Prescriptions: bumetanide Gaudencio Duran levofloxacin Gaudencio Duran Allergies Allergy/AdvReac Type Severity Reaction Status Date / Time pseudoephedrine Allergy Severe Difficulty Verified 05/18/25 14:37 Breathing azithromycin Allergy Unknown Unknown Verified 05/18/25 14:37 allergy reaction Cephalosporins Allergy Unknown Gastrointestinal Verified 05/18/25 14:37 Upset chocolate flavor Allergy Unknown Unknown Verified 05/18/25 14:37 allergy reaction clarithromycin Allergy Unknown Unknown Verified 05/18/25 14:37 allergy reaction erythromycin base Allergy Unknown Rash Verified 05/18/25 14:37 guaifenesin Allergy Unknown Unknown Verified 05/18/25 14:37 allergy reaction montelukast Allergy Unknown Numbness Verified 05/18/25 14:37 nabumetone (From Relafen) Allergy Unknown Rash Verified 05/18/25 14:37 nitrofurantoin Allergy Unknown Unknown Verified 05/18/25 14:37 allergy reaction NSAIDS (Non-Steroidal Allergy Unknown Unknown Verified 05/18/25 14:37 Anti-Inflamma allergy reaction Penicillins Allergy Unknown Unknown Verified 05/18/25 14:37 allergy reaction prednisone Allergy Unknown Unknown Verified 05/18/25 14:37 allergy reaction Sulfa (Sulfonamide Allergy Unknown Unknown Verified 05/18/25 14:37 Antibiotics) allergy reaction cefdinir Allergy rash, Verified 05/18/25 14:37 itching methylprednisolone (From Allergy Rash Verified 05/18/25 14:37 Solu-Medrol) spironolactone AdvReac Severe Severe Verified 05/18/25 14:37 hyperkalemia atorvastatin AdvReac Intermediate Muscle Pain Verified 05/18/25 14:37 clindamycin AdvReac Unknown Gastrointestinal Verified 05/18/25 14:37 Upset codeine AdvReac Unknown Gastrointestinal Verified 05/18/25 14:37 Upset doxycycline AdvReac Unknown MAKES THE Verified 05/18/25 14:37 BACKS OF EYES HURT fexofenadine (From Sudha) AdvReac Unknown INFLAMED Verified 05/18/25 14:37 INSIDE OF NOSE fluticasone (From Advair AdvReac Unknown HURTS IN Verified 05/18/25 14:37 Diskus) THE INSIDE OF NOSE imipramine AdvReac Unknown BLADDER Verified 05/18/25 14:37 PAIN/SLOW DRAINAGE metoclopramide (From Reglan) AdvReac Unknown Gastrointestinal Verified 05/18/25 14:37 Upset mometasone furoate (From AdvReac Unknown Cough Verified 05/18/25 14:37 Nasonex) paroxetine (From Paxil) AdvReac Unknown Agitated Verified 05/18/25 14:37 salmeterol (From Advair AdvReac Unknown HURTS IN Verified 05/18/25 14:37 Diskus) THE INSIDE OF NOSE tramadol AdvReac Unknown Dizziness Verified 05/18/25 14:37 acetaminophen (From Lortab) AdvReac Gastrointestinal Verified 05/18/25 14:37 Upset hydrocodone (From Lortab) AdvReac Gastrointestinal Verified 05/18/25 14:37 Upset Discharge Plan Disposition Patient Disposition: Home Health Service Condition: Fair Discharge Order Discharge Orders: Discharge Order (Routine); Ordered 06/09/25 Ordered By: Gaudencio Duran Follow up Plan Follow up with: Murphy Arnold PA [Physician [employer], Cardiology] - 06/16/25 1:15 pm Referral Note: Call for follow up Prescriptions/Medication Reconciliation: New levofloxacin 750 mg Tablet 750 mg PO Q48H 5 Days Qty: 3 0RF bumetanide 2 mg tablet 2 mg PO DAILY 30 Days Qty: 30 0RF Continued buspirone 7.5 mg tablet 7.5 mg PO BID Patient Comments: TAKE ONE TABLET BY MOUTH TWICE DAILY aspirin [Adult Low Dose Aspirin] 81 mg tablet,delayed release (DR/EC) 81 mg PO DAILY Qty: 30 5RF allopurinol 100 mg tablet 100 mg PO DAILY Patient Comments: TAKE ONE TABLET BY MOUTH EVERY DAY metoprolol succinate 25 mg tablet extended release 24 hr 25 mg PO DAILY Qty: 30 5RF ergocalciferol (vitamin D2) [Vitamin D2] 1,250 mcg (50,000 unit) capsule 1,250 mcg PO MONTHLY Patient Comments: Take 1 capsule by mouth once a month fluticasone propion-salmeterol [Advair Diskus] 100-50 mcg/dose blister with device 1 inh inhalation BID Qty: 60 3RF sodium ferric gluconat-sucrose [Ferrlecit] 62.5 mg/5 mL solution 125 mg IV WEEKLY 28 Days famotidine 20 MG tablet 20 mg PO BID pantoprazole 40 MG tablet,delayed release (DR/EC) 40 mg PO HS mirtazapine 15 MG tablet 15 mg PO HS Eliquis 5 mg Tablet 5 mg PO BID 30 Days Qty: 60 0RF levothyroxine [Synthroid] 25 mcg tablet 25 mcg PO DAILY ferrous sulfate 325 mg (65 mg iron) tablet 325 mg PO BID Qty: 60 0RF polyethylene glycol 3350 [Miralax] 17 gram/dose powder 17 g PO DAILY Qty: 510 0RF multivitamin Tablet 1 tab PO DAILY Qty: 30 0RF Jardiance 10 mg tablet 10 mg PO DAILY Patient Comments: TAKE ONE TABLET BY MOUTH EVERY DAY Changed sertraline 100 MG tablet 100 mg PO DAILY 30 Days Qty: 0 0RF Discontinued bumetanide 1 mg tablet 1 mg PO DAILY Qty: 90 1RF Problem Reconciliation Problems Reviewed?: Yes Patient Discharge Instructions Patient Instructions: DI for Chronic Obstructive Pulmonary Disease, Stop Light COPD Print Language: Romansh Providers Primary Care Provider: Maria Luz Johnson Admit Provider: Cuco Elizabeth Attending Provider: Cuco Elizabeth
--- NOTE | 2025-06-10 10:43 | SW/DCPLANNER ---
Spoke with patient on the phone. Patient stated that she is doing good. Patient's daughter jorge stated that she was able to get her new medicine picked up. Patient's daughter jorge stated that she is aware of her upcoming appointments. Patient's daughter jorge stated that she has no concerns or questions at this time. Rick Ambrocio
== END 2025-06-09 13:10 | disposition home health service (06) ==
LOC: ER 12:01 → ICU 16:09 → 2ND 06-08 19:54
PROVIDERS: Student in an Organized Health Care Education/Training Program; Admitting Provider Family Medicine; Emergency Provider Student in an Organized Health Care Education/Training Program; PCP Nurse Practitioner; Visit Provider Family Medicine
DX: J96.21 Acute and chronic respiratory failure with hypoxia (principal); J96.22 Acute and chronic respiratory failure with hypercapnia; J44.1 Chronic obstructive pulmonary disease with (acute) exacerbation; E03.9 Hypothyroidism, unspecified; I13.0 Hypertensive heart and chronic kidney disease with heart failure and stage 1 through stage 4 chronic kidney disease, or unspecified chronic kidney disease; I50.43 Acute on chronic combined systolic (congestive) and diastolic (congestive) heart failure; S81.801A Unspecified open wound, right lower leg, initial encounter; I25.10 Atherosclerotic heart disease of native coronary artery without angina pectoris; I89.0 Lymphedema, not elsewhere classified; R13.10 Dysphagia, unspecified; I48.0 Paroxysmal atrial fibrillation; R91.8 Other nonspecific abnormal finding of lung field; E87.5 Hyperkalemia; E87.4 Mixed disorder of acid-base balance; G43.909 Migraine, unspecified, not intractable, without status migrainosus; J44.89 Other specified chronic obstructive pulmonary disease; Z79.82 Long term (current) use of aspirin; Z79.51 Long term (current) use of inhaled steroids; Z79.01 Long term (current) use of anticoagulants; Z79.890 Hormone replacement therapy; Z79.899 Other long term (current) drug therapy; Z88.0 Allergy status to penicillin; Z88.1 Allergy status to other antibiotic agents; Z88.2 Allergy status to sulfonamides; Z88.5 Allergy status to narcotic agent; Z88.6 Allergy status to analgesic agent; Z88.8 Allergy status to other drugs, medicaments and biological substances; Z91.018 Allergy to other foods; Z91.02 Food additives allergy status; F32.9 Major depressive disorder, single episode, unspecified; I48.91 Unspecified atrial fibrillation; Z90.710 Acquired absence of both cervix and uterus; Z90.49 Acquired absence of other specified parts of digestive tract; Z96.641 Presence of right artificial hip joint; Z82.49 Family history of ischemic heart disease and other diseases of the circulatory system; R94.31 Abnormal electrocardiogram [ECG] [EKG]; Z96.652 Presence of left artificial knee joint
CPT/HCPCS: 36415; 71045; 71275; 80048; 80053; 82803; 83036; 83735; 83880; 84484; 85025; 85651; 86140; 87070; 87077; 87186; 87205; 87636; 92610; 93005; 93970; 94640; 96365; 96366; 96375; 96376; 97110; 97162; 97166; 99285; G0378; J1939; J3475; Q9967

== ENCOUNTER 2025-06-30 11:29 | Outpatient (CLI) | payer MEDICARE, SELFPAY ==
--- OUTSIDE RECORDS SUMMARY | 2025-06-23 19:00 | XMS_ITS | Clinical Summary ---
Author Organization Unknown Care Team Providers Care Tool And Die Technician Name Role Phone STEPHON LACEWORKER, ALBERTO Unavailable Unavailable SILVA RN, GALLO Unavailable Unavailable KODY PT, KILEY Unavailable Unavailable ARABELLA DURHAMN, JOSE ENRIQUE Unavailable Unavailable SALAZAR PARA PROFESSIONAL, RAMYA Unavailable Unavailabl e ROSSI OT, ROXANE Unavailable Unavailable ROMEL ANGELIQUE/PAUL, MARIEA Unavailable Unavail able Payers Payer Name Policy Type Policy Number Effective Date Expira tion Date [facility] [id number] Problems Condition Name Condition Details Condition Category Status Onset Date Resolution Date Last Treatment Date Treating Clinician Comments ACUTE AND CHRONIC RESPIRATORY FAILURE WITH HYPOXIA Active 2024-08 00:00: 00 CHRONIC OBSTRUCTIVE PULMONARY DISEASE W (ACUTE) EXACERBATION Active 2024-08 00:00: 00 Allergies, Adverse Reactions, Alerts Allergy Name Allergy Type Status Severity Reaction(s) Onset Date Inactive Date Treating Clinician Comments AZITHROMYCIN Propensity to adverse reactions Active 2024-08 19:46: 13 CEPHALOSPORI NS Propensity to adverse reactions Active 2024-08 19:46: 23 CLARITHROMYC IN Propensity to adverse reactions Active 2024-08 19:46: 34 ERYTHROMYCIN BASE Propensity to adverse reactions Active 2024-08 19:47: 08 GUAIFENESIN Propensity to adverse reactions Active 2024-08 19:47: 50 MONTELUKAST Propensity to adverse reactions Active 2024-08 19:47: 58 NSAIDS Propensity to adverse reactions Active 2024-08 19:48: 06 CEFDINIR Propensity to adverse reactions Active 2024-08 19:48: 19 SULFA DRUGS-- Propensity to adverse reactions Active 2024-08 19:48: 45 METHLPREDNIS OLONE Propensity to adverse reactions Active 2024-08 19:48: 58 METHYLPREDIS OLONE Propensity to adverse reactions Active 2024-08 19:49: 24 PENICILINS Propensity to adverse reactions Active 2024-08 19:49: 32 Medications Ordered Medication Name Filled Medication Name Start Date Stop Date Current Medication? Ordering Clinician Indication Dosage Frequency Signature (SIG) Comments Components vancomycin 1,000 mg intravenous injection 10-30 00:00: 00 11-07 23:59 :00 No [id number] INFECTION Per instruc tions DAILY Per instructio ns DAILY (route: intravenou s) Med Classific ation: Anti-Infe ctive Agents sertraline 100 mg tablet 11-14 00:00: 00 07-05 23:59 :00 No [id number] DEPRESSION 1 tablet DAILY 1 tablet DAILY (route: oral) Med Classific ation: Central Nervous System Agents levothyroxi ne 25 mcg tablet 11-14 00:00: 00 07-05 23:59 :00 No [id number] SUPPLEMENTA L 1 tablet DAILY 1 tablet DAILY (route: oral) Med Classific ation: Endocrine nadolol 40 mg tablet 11-14 00:00: 00 07-05 23:59 :00 No [id number] BP 1 tablet DAILY 1 tablet DAILY (route: oral) Med Classific ation: Cardiovas cular Therapy Agents diltiazem CD 180 mg capsule,ext ended release 24 hr 11-14 00:00: 00 07-05 23:59 :00 No [id number] BP 1 capsule DAILY 1 capsule DAILY (route: oral) Med Classific ation: Cardiovas cular Therapy Agents pantoprazol e 40 mg tablet,matty yed release 11-14 00:00: 00 07-05 23:59 :00 No [id number] STOMACH 1 tablet DAILY 1 tablet DAILY (route: oral) Med Classific ation: Gastroint estinal Therapy Agents famotidine 20 mg tablet 11-14 00:00: 00 07-05 23:59 :00 No [id number] STOMACH Per instruc tions DAILY Per instructio ns DAILY (route: oral) Med Classific ation: Gastroint estinal Therapy Agents sertraline 50 mg tablet 11-14 00:00: 00 07-05 23:59 :00 No [id number] ANXIETY 1 tablet DAILY 1 tablet DAILY (route: oral) Med Classific ation: Central Nervous System Agents gabapentin 100 mg capsule 11-14 00:00: 00 01-09 23:59 :00 No [id number] NERVE PAIN 1 capsule 2 TIMES DAILY 1 capsule 2 TIMES DAILY (route: oral) Med Classific ation: Central Nervous System Agents buspirone 7.5 mg tablet 11-14 00:00: 00 07-05 23:59 :00 No [id number] ANXIETY 1 tablet DAILY 1 tablet DAILY (route: oral) Med Classific ation: Central Nervous System Agents mirtazapine 15 mg tablet 11-14 00:00: 00 07-05 23:59 :00 No [id number] SLEEP 1 tablet 2 TIMES A WEEK 1 tablet 2 TIMES A WEEK (route: oral) Med Classific ation: Central Nervous System Agents cefdinir 300 mg capsule 01-02 00:00: 00 01-03 23:59 :00 No [id number] for cellulits/ infection to leg 1 capsule 2 TIMES DAILY 1 capsule 2 TIMES DAILY (route: oral) Med Classific ation: Anti-Infe ctive Agents Breo Ellipta 100 mcg-25 mcg/dose powder for inhalation 2021-08 00:00: 00 07-05 23:59 :00 No [id number] LUNGS 1 inhalat ion DAILY 1 inhalation DAILY (route: inhalation ) Med Classific ation: Respirato ry Therapy Agents nystatin 100,000 unit/gram topical powder 2023-08 00:00: 00 Yes [id number] UNDER BREAST AND ABDOMEN 1 unit 4 TIMES DAILY 1 unit 4 TIMES DAILY (route: topical) Med Classific ation: Dermatolo gical oxygen gas for inhalation 2023-08 00:00: 00 Yes [id number] SOA 2 Liter O2 - CONTINUOUS 2 Liter O2 - CONTINUOUS (route: inhalation ) Med Classific ation: Medical Supplies and Durable Medical Equipment (DME) bumetanide 1 mg tablet 2023-08 00:00: 00 Yes [id number] WATER PILL 1 tablet DAILY 1 tablet DAILY (route: oral) Med Classific ation: Cardiovas cular Therapy Agents buspirone 7.5 mg tablet 2020-08 00:00: 00 Yes [id number] MOOD 1 tablet 2 TIMES DAILY 1 tablet 2 TIMES DAILY (route: oral) Med Classific ation: Central Nervous System Agents Gemtesa 75 mg tablet 2020-08 00:00: 00 Yes [id number] URINARY 1 tablet DAILY 1 tablet DAILY (route: oral) Med Classific ation: Genitouri nary Therapy levothyroxi ne 25 mcg tablet 2020-08 00:00: 00 Yes [id number] THYROID 1 tablet DAILY 1 tablet DAILY (route: oral) Med Classific ation: Endocrine meloxicam 7.5 mg tablet 2020-08 00:00: 00 02-02 23:59 :00 No [id number] PAIN 1 tablet DAILY 1 tablet DAILY (route: oral) Med Classific ation: Analgesic , Anti-infl ammatory or Antipyret ic mirtazapine 15 mg tablet 2021-08 00:00: 00 Yes [id number] RLS 1 tablet BEDTIME 1 tablet BEDTIME (route: oral) Med Classific ation: Central Nervous System Agents pantoprazol e 40 mg tablet,matty yed release 2020-08 00:00: 00 Yes [id number] GERD 1 tablet BEDTIME 1 tablet BEDTIME (route: oral) Med Classific ation: Gastroint estinal Therapy Agents Pepcid 20 mg tablet 2021-08 00:00: 00 Yes [id number] GERD 1 tablet 2 TIMES DAILY 1 tablet 2 TIMES DAILY (route: oral) Med Classific ation: Gastroint estinal Therapy Agents sertraline 150 mg capsule 2020-08 00:00: 00 Yes [id number] MOOD 1 capsule DAILY 1 capsule DAILY (route: oral) Med Classific ation: Central Nervous System Agents valsartan 160 mg tablet 2021-08 00:00: 00 02-02 23:59 :00 No [id number] HEART 1 tablet DAILY 1 tablet DAILY (route: oral) Med Classific ation: Cardiovas cular Therapy Agents cyclobenzap rine 10 mg tablet 09-10 00:00: 00 02-02 23:59 :00 No [id number] PAIN 1 tablet 3 TIMES DAILY 1 tablet 3 TIMES DAILY (route: oral) Med Classific ation: Locomotor System Aspirin Childrens 81 mg chewable tablet 02-02 00:00: 00 Yes [id number] HEART 1 tablet DAILY 1 tablet DAILY (route: oral) Med Classific ation: Hematolog ical Agents atorvastati n 20 mg tablet 02-02 00:00: 00 Yes [id number] CHOLESTEROL 1 tablet DAILY 1 tablet DAILY (route: oral) Med Classific ation: Cardiovas cular Therapy Agents cetirizine 10 mg tablet 02-02 00:00: 00 Yes [id number] ALLERGIES 1 tablet BEDTIME 1 tablet BEDTIME (route: oral) Med Classific ation: Respirato ry Therapy Agents Eliquis 5 mg tablet 02-02 00:00: 00 Yes [id number] HEART 1 tablet 2 TIMES DAILY 1 tablet 2 TIMES DAILY (route: oral) Med Classific ation: Hematolog ical Agents Jardiance 10 mg tablet 02-02 00:00: 00 Yes [id number] DIABETES 1 tablet DAILY 1 tablet DAILY (route: oral) Med Classific ation: Endocrine metoprolol succinate ER 25 mg tablet,exte nded release 24 hr 02-02 00:00: 00 Yes [id number] HEART 1 tablet DAILY 1 tablet DAILY (route: oral) Med Classific ation: Cardiovas cular Therapy Agents Vital Signs Vital Name Observation Time Observation Value Commen ts Temperature 2025-06-24 15:47:00.000 97.5 [degF] Temperature 2025-06-21 16:42:00.000 98.9 [degF] Temperature 2025-06-18 13:56:00.000 98.4 [degF] Temperature 2025-06-17 15:16:00.000 97.8 [degF] Temperature 2025-06-17 14:22:00.000 97.8 [degF] Temperature 2025-06-16 16:42:00.000 97.9 [degF] Height 2025-06-16 16:42:00.000 63 [in_us] Pulse 2025-06-24 15:47:00.000 72 /min Pulse 2025-06-21 16:42:00.000 64 /min Pulse 2025-06-18 13:56:00.000 65 /min Pulse 2025-06-17 15:16:00.000 63 /min Pulse 2025-06-17 14:22:00.000 67 /min Pulse 2025-06-16 16:42:00.000 78 /min O2 Saturation (%) 2025-06-24 15:47:00.000 96 % O2 Saturation (%) 2025-06-21 16:42:00.000 95 % O2 Saturation (%) 2025-06-18 13:56:00.000 94 % O2 Saturation (%) 2025-06-17 15:16:00.000 98 % O2 Saturation (%) 2025-06-17 14:22:00.000 95 % O2 Saturation (%) 2025-06-16 16:42:00.000 97 % Respirations 2025-06-24 15:47:00.000 16 /min Respirations 2025-06-21 16:42:00.000 16 /min Respirations 2025-06-18 13:56:00.000 16 /min Respirations 2025-06-17 15:16:00.000 18 /min Respirations 2025-06-17 14:22:00.000 18 /min Respirations 2025-06-16 16:42:00.000 18 /min Weight (lbs) 2025-06-17 15:16:00.000 166 [lb_av] Weight (lbs) 2025-06-16 16:42:00.000 Systolic Blood Pressure 2025-06-24 15:47:00.000 112 mm [Hg] Systolic Blood Pressure 2025-06-21 16:42:00.000 114 mm [Hg] Systolic Blood Pressure 2025-06-18 13:56:00.000 122 mm [Hg] Systolic Blood Pressure 2025-06-17 15:16:00.000 120 mm [Hg] Systolic Blood Pressure 2025-06-17 14:22:00.000 121 mm [Hg] Systolic Blood Pressure 2025-06-16 16:42:00.000 125 mm [Hg] Diastolic Blood Pressure 2025-06-24 15:47:00.000 75 mm [Hg] Diastolic Blood Pressure 2025-06-21 16:42:00.000 62 mm [Hg] Diastolic Blood Pressure 2025-06-18 13:56:00.000 64 mm [Hg] Diastolic Blood Pressure 2025-06-17 15:16:00.000 70 mm [Hg] Diastolic Blood Pressure 2025-06-17 14:22:00.000 69 mm [Hg] Diastolic Blood Pressure 2025-06-16 16:42:00.000 70 mm [Hg] Plan of Treatment Planned Activity Planned Date Details Comments Future Scheduled Test RN TO OBSE RVE, ASSESS, EVALUATE, AND DEVELOP AN INDIVIDUALIZED PLAN OF CARE. AGENCY MAY ACCEPT ORDERS FROM CONSULTING PHYSICIANS ALBERTO SZYMANSKI RN TO OBSERVE AND ASSESS, HIDE CURER/ERP DEVELOPER TO OBSERVE FOR RISK FOR FALLS AND INSTRUCT IN FALL PREVENTION, HOME SAFETY, MEDICATION MANAGEMENT, INFECTION PREVENTION, AND NUTRITION MANAGEMENT. RN/HIDE CURER/ERP DEVELOPER NURSE MAY PERFORM O2 SATURATION LEVEL ON ADMISSION AND PRN FOR RN TO ASSESS/HIDE CURER TO OBSERVE PATIENT, WITH NOTIFICATION TO THE PHYSICIAN IF SATURATION IS 90% IN THE ABSENCE OF MORE SPECIFIC PARAMETERS FROM THE PHYSICIAN. AGENCY MAY PERFORM A RESUMPTION OF CARE VISIT FOLLOWING ANY HOSPITAL ADMISSION. RN/HIDE CURER/ERP DEVELOPER TO MONITOR CO-MORBID CONDITIONS LISTED ON THE PLAN OF CARE AND ANY NEW CONDITIONS THAT PRESENT THEMSELVES DURING THIS EPISODE TO IDENTIFY CHANGES AND INTERVENE TO MINIMIZE COMPLICATIONS. [code = RN TO OBSERVE, ASSESS, EVALUATE, AND DEVELOP AN INDIVIDUALIZED PLAN OF CARE. AGENCY MAY ACCEPT ORDERS FROM CONSULTING PHYSICIANS ALBERTO SZYMANSKI RN TO OBSERVE AND ASSESS, HIDE CURER/ERP DEVELOPER TO OBSERVE FOR RISK FOR FALLS AND INSTRUCT IN FALL PREVENTION, HOME SAFETY, MEDICATION MANAGEMENT, INFECTION PREVENTION, AND NUTRITION MANAGEMENT. RN/HIDE CURER/ERP DEVELOPER NURSE MAY PERFORM O2 SATURATION LEVEL ON ADMISSION AND PRN FOR RN TO ASSESS/HIDE CURER TO OBSERVE PATIENT, WITH NOTIFICATION TO THE PHYSICIAN IF SATURATION IS 90% IN THE ABSENCE OF MORE SPECIFIC PARAMETERS FROM THE PHYSICIAN. AGENCY MAY PERFORM A RESUMPTION OF CARE VISIT FOLLOWING ANY HOSPITAL ADMISSION. RN/HIDE CURER/ERP DEVELOPER TO MONITOR CO-MORBID CONDITIONS LISTED ON THE PLAN OF CARE AND ANY NEW CONDITIONS THAT PRESENT THEMSELVES DURING THIS EPISODE TO IDENTIFY CHANGES AND INTERVENE TO MINIMIZE COMPLICATIONS.] Future Scheduled Test MEDICATION MANAGEMENT; RN/HIDE CURER/ERP DEVELOPER TO REVIEW MEDICATIONS FOR INTERACTIONS, EFFECTIVENESS OF DRUG THERAPY, AND SIGNS/SYMPTOMS OF ADVERSE REACTIONS. MAY INSTRUCT AND REINFORCE MEDICATION TEACHING RELATED TO THE USE OF MEDICATIONS, DOSAGE, FREQUENCY, PURPOSE, SIDE EFFECTS, AND TO REPORT COMPLICATIONS. [code = MEDICATION MANAGEMENT; RN/HIDE CURER/ERP DEVELOPER TO REVIEW MEDICATIONS FOR INTERACTIONS, EFFECTIVENESS OF DRUG THERAPY, AND SIGNS/SYMPTOMS OF ADVERSE REACTIONS. MAY INSTRUCT AND REINFORCE MEDICATION TEACHING RELATED TO THE USE OF MEDICATIONS, DOSAGE, FREQUENCY, PURPOSE, SIDE EFFECTS, AND TO REPORT COMPLICATIONS.] Future Scheduled Test RESPIRATOR Y SYSTEM MANAGEMENT; RN TO ASSESS AND TEACH, HIDE CURER/ERP DEVELOPER TO OBSERVE AND TEACH RELATED TO ALTERED RESPIRATORY STATUS TO MINIMIZE COMPLICATIONS AND REDUCE HOSPITALIZATION. [code = RESPIRATORY SYSTEM MANAGEMENT; RN TO ASSESS AND TEACH, HIDE CURER/ERP DEVELOPER TO OBSERVE AND TEACH RELATED TO ALTERED RESPIRATORY STATUS TO MINIMIZE COMPLICATIONS AND REDUCE HOSPITALIZATION.] Future Scheduled Test COPD MANAG EMENT; RN TO ASSESS AND TEACH, HIDE CURER/ERP DEVELOPER TO OBSERVE AND TEACH SIGNS/SYMPTOMS OF COPD EXACERBATION AND PROVIDE EARLY INTERVENTIONS TO MINIMIZE RISK OF HOSPITALIZATION. RN/HIDE CURER/ERP DEVELOPER TO INSTRUCT ON SELF-CARE MANAGEMENT INCLUDING BREATHING TECHNIQUES, AIRWAY CLEARANCE, AND PROPER USE OF COPD MEDICATIONS. RN TO ASSESS AND TEACH, HIDE CURER/ERP DEVELOPER TO OBSERVE AND TEACH PATIENT/CAREGIVER ABILITY TO MONITOR AND RECORD VITAL SIGNS INCLUDING PULSE OXIMETRY AND BLOOD PRESSURE. PULSE OXIMETER AND BP MONITOR TO BE PROVIDED IF NEEDED [code = COPD MANAGEMENT; RN TO ASSESS AND TEACH, HIDE CURER/ERP DEVELOPER TO OBSERVE AND TEACH SIGNS/SYMPTOMS OF COPD EXACERBATION AND PROVIDE EARLY INTERVENTIONS TO MINIMIZE RISK OF HOSPITALIZATION. RN/HIDE CURER/ERP DEVELOPER TO INSTRUCT ON SELF-CARE MANAGEMENT INCLUDING BREATHING TECHNIQUES, AIRWAY CLEARANCE, AND PROPER USE OF COPD MEDICATIONS. RN TO ASSESS AND TEACH, HIDE CURER/ERP DEVELOPER TO OBSERVE AND TEACH PATIENT/CAREGIVER ABILITY TO MONITOR AND RECORD VITAL SIGNS INCLUDING PULSE OXIMETRY AND BLOOD PRESSURE. PULSE OXIMETER AND BP MONITOR TO BE PROVIDED IF NEEDED] Future Scheduled Test OXYGEN THE RAPY; RN/HIDE CURER/ERP DEVELOPER TO INSTRUCT ON OXYGEN MANAGEMENT INCLUDING: ADMINISTRATION AT 2L/MIN VIA CONTINUOUS/PRN FOR , CARE OF EQUIPMENT AND SAFETY. [code = OXYGEN THERAPY; RN/HIDE CURER/ERP DEVELOPER TO INSTRUCT ON OXYGEN MANAGEMENT INCLUDING: ADMINISTRATION AT 2L/MIN VIA CONTINUOUS/PRN FOR , CARE OF EQUIPMENT AND SAFETY.] Future Scheduled Test PHYSICAL T HERAPIST TO EVALUATE FOR STRENGTH, ENDURANCE, GAIT, BALANCE [code = PHYSICAL THERAPIST TO EVALUATE FOR STRENGTH, ENDURANCE, GAIT, BALANCE] Future Scheduled Test OCCUPATION AL THERAPIST TO EVALUATE FOR ADLS AND IADLS [code = OCCUPATIONAL THERAPIST TO EVALUATE FOR ADLS AND IADLS] Future Scheduled Test PRN VISITS ; NUMBER OF RN/HIDE CURER/ERP DEVELOPER VISITS: 2 RN/HIDE CURER/ERP DEVELOPER TO PERFORM: WOUND EVALUATE FOR THE FOLLOWING REASONS: OBSERVATION [code = PRN VISITS; NUMBER OF RN/HIDE CURER/ERP DEVELOPER VISITS: 2 RN/HIDE CURER/ERP DEVELOPER TO PERFORM: WOUND EVALUATE FOR THE FOLLOWING REASONS: OBSERVATION] Future Scheduled Test RN/HIDE CURER/ERP DEVELOPER TO PERFORM/TEACH ARTERIAL ULCER CARE TO RIGHT AND LEFT LEGS IRRIGATE/CLEANSE WITH WOUND CLEANZER APPLY CALCIUM SILVER ALGINATE SECURE WITH 4XR BORDER GAUZE CHANGE DRESSING EVERY 3 DAYS A WEEK FOR TWO WEEKS THEN 2 DAYS A WEEK TILL EOE DATE AND CHANGE PRN FOR DISLODGED DRESSING OR SOILING BY CAREGIVER AND PT IN BETWEEN NURSING VISITS [code = RN/HIDE CURER/ERP DEVELOPER TO PERFORM/TEACH ARTERIAL ULCER CARE TO RIGHT AND LEFT LEGS IRRIGATE/CLEANSE WITH WOUND CLEANZER APPLY CALCIUM SILVER ALGINATE SECURE WITH 4XR BORDER GAUZE CHANGE DRESSING EVERY 3 DAYS A WEEK FOR TWO WEEKS THEN 2 DAYS A WEEK TILL EOE DATE AND CHANGE PRN FOR DISLODGED DRESSING OR SOILING BY CAREGIVER AND PT IN BETWEEN NURSING VISITS] Future Scheduled Test OCCUPATION AL THERAPY EVALUATION PERFORMED. NO ADDITIONAL VISITS REQUIRED. PROVIDED SKILLED INTERVENTION INCLUDING ADL PERFORMANCE [code = OCCUPATIONAL THERAPY EVALUATION PERFORMED. NO ADDITIONAL VISITS REQUIRED. PROVIDED SKILLED INTERVENTION INCLUDING ADL PERFORMANCE] Future Scheduled Test PHYSICAL T HERAPY EVALUATION PERFORMED. NO ADDITIONAL VISITS REQUIRED. PROVIDED SKILLED INTERVENTION [code = PHYSICAL THERAPY EVALUATION PERFORMED. NO ADDITIONAL VISITS REQUIRED. PROVIDED SKILLED INTERVENTION] Goal 2025-06-24 Patient Goal - WOUNDS HEALED Goal Provider Goal - A PLAN OF CARE WILL BE ESTABLISHED THAT MEETS THE PATIENT S NEEDS. PATIENT WILL DEMONSTRATE OXYGEN SATURATION WITHIN NORMAL LIMITS OR PATIENT S OPTIMAL LEVEL ESTABLISHED BY THE PHYSICIAN THROUGHOUT CARE. CHANGES TO CO-MORBID CONDITIONS AND ANY NEW CONDITIONS WILL BE IDENTIFIED AND REPORTED TO THE PHYSICIAN. Goal Provider Goal - PATIENT/CAREGIVER TO VERBALIZE, AND CONSISTENTLY DEMONSTRATE EFFECTIVE, SAFE MANAGEMENT OF MEDICATION INCLUDING KNOWLEDGE OF EFFECTIVENESS, POTENTIAL SIDE EFFECTS AND DRUG REACTIONS AND WHEN TO CONTACT THE APPROPRIATE CARE PROVIDER. PATIENT/CAREGIVER WILL BE ABLE TO VERBALIZE UNDERSTANDING OF MEDICATION REGIMEN AND ACCURATELY TAKE MEDICATIONS PRESCRIBED WITHOUT ADVERSE EFFECTS BY 08/14/25 Goal Provider Goal - PATIENT / CAREGIVER WILL VERBALIZE/DEMONSTRATE UNDERSTANDING OF MEASURES TO MANAGE ALTERED RESPIRATORY STATUS BY 08/14/25 Goal Provider Goal - PATIENT / CAREGIVER WILL VERBALIZE/DEMONSTRATE AN ABILITY TO ADHERE TO SELF-MANAGEMENT OF COPD TO MINIMIZE COMPLICATIONS AND AVOID HOSPITALIZATION BY 08/14/25. Goal Provider Goal - PATIENT/CAREGIVER WILL VERBALIZE/DEMONSTRATE UNDERSTANDING OF CARE AND MANAGEMENT OF OXYGEN THERAPY BY 08/14/25 Goal Provider Goal - Goal Provider Goal - Goal Provider Goal - Goal Provider Goal - PATIENT / CAREGIVER WILL VERBALIZE UNDERSTANDING OF ARTERIAL ULCER CARE INCLUDING BUT NOT LIMITED TO DEFINITION, SIGNS AND SYMPTOMS OF COMPLICATIONS AND PRESCRIBED TREATMENT REGIME BY 08/14/25 Goal Provider Goal - PATIENT / CAREGIVER WITHIN 1 VISIT WILL BE ABLE TO VERBALIZE / DEMONSTRATE UNDERSTANDING OF SAFE ADL PERFORMANCE Goal Provider Goal - PATIENT / CAREGIVER WITHIN 1 VISIT WILL BE ABLE TO VERBALIZE / DEMONSTRATE UNDERSTANDING OF SAFE TRANSFERS Reason for Visit INDEPENDENT IN THE HOME Encounters Start Date/Time End Date/Time Encounter Type Admission Type Attending [facility] Care Department Encounter ID Discharge Date Discharge Status Discharge Condition Discharge Reason Percent Goals Met 2025-06-16 00:00:00 2025-06-24 00:00:00 Outpatient GALLO MOSELEY [facility] [id number] 2025-06-24 00:00:00 DISCHARGE TO HOME OR SELF CARE INDEPENDEN T IN THE HOME HH - NON COMPLIANT WITH PLAN OF TREATMENT 100.00
--- OUTSIDE RECORDS SUMMARY | 2025-06-23 19:00 | XMS_ITS | Clinical Summary ---
Author Organization Unknown Care Team Providers Care Bag Inspector Name Role Phone STEPHON DIE SET UP WORKER, ALBERTO Unavailable Unavailable SILVA RN, GALLO Unavailable Unavailable KODY PT, KILEY Unavailable Unavailable ARABELLA DURHAMN, JOSE ENRIQUE Unavailable Unavailable SALAZAR PHYSICS INSTRUCTOR, RAMYA Unavailable Unavailabl e ROSSI OT, ROXANE Unavailable Unavailable ROMEL ANGELIQUE/PAUL, MARIEA Unavailable Unavail able Payers Payer Name Policy Type Policy Number Effective Date Expira tion Date [facility] [id number] Problems Condition Name Condition Details Condition Category [...] 10-30 00:00: 00 11-07 23:59 :00 No [id number] INFECTION Per instruc tions DAILY Per instructio ns DAILY (route: intravenou s) Med Classific ation: Anti-Infe ctive Agents sertraline 100 mg tablet 11-14 00:00: 00 07-05 23:59 :00 No [id number] DEPRESSION 1 tablet DAILY 1 tablet DAILY (route: oral) Med Classific ation: Central Nervous System Agents levothyroxi ne 25 mcg tablet 11-14 00:00: 00 07-05 23:59 :00 No [id number] SUPPLEMENTA L 1 tablet DAILY 1 tablet DAILY (route: oral) Med Classific ation: Endocrine nadolol 40 mg tablet 11-14 00:00: 00 07-05 23:59 :00 No [id number] BP 1 tablet DAILY 1 tablet DAILY (route: oral) Med Classific ation: Cardiovas cular Therapy Agents diltiazem CD 180 mg capsule,ext ended release 24 hr 11-14 00:00: 00 07-05 23:59 :00 No [id number] BP 1 capsule DAILY 1 capsule DAILY (route: oral) Med Classific ation: Cardiovas cular Therapy Agents pantoprazol e 40 mg tablet,matty yed release 11-14 00:00: 00 07-05 23:59 :00 No [id number] STOMACH 1 tablet DAILY 1 tablet DAILY (route: oral) Med Classific ation: Gastroint estinal Therapy Agents famotidine 20 mg tablet 11-14 00:00: 00 07-05 23:59 :00 No [id number] STOMACH Per instruc tions DAILY Per instructio ns DAILY (route: oral) Med Classific ation: Gastroint estinal Therapy Agents sertraline 50 mg tablet 11-14 00:00: 00 07-05 23:59 :00 No [id number] ANXIETY 1 tablet DAILY 1 tablet DAILY (route: oral) Med Classific ation: Central Nervous System Agents gabapentin 100 mg capsule 11-14 00:00: 00 01-09 23:59 :00 No [id number] NERVE PAIN 1 capsule 2 TIMES DAILY 1 capsule 2 TIMES DAILY (route: oral) Med Classific ation: Central Nervous System Agents buspirone 7.5 mg tablet 11-14 00:00: 00 07-05 23:59 :00 No [id number] ANXIETY 1 tablet DAILY 1 tablet DAILY (route: oral) Med Classific ation: Central Nervous System Agents mirtazapine 15 mg tablet 11-14 00:00: 00 07-05 23:59 :00 No [id number] SLEEP 1 tablet 2 TIMES A WEEK 1 tablet 2 TIMES A WEEK (route: oral) Med Classific ation: Central Nervous System Agents cefdinir 300 mg capsule 01-02 00:00: 00 01-03 23:59 :00 No [id number] for cellulits/ infection to leg 1 capsule 2 TIMES DAILY 1 capsule 2 TIMES DAILY (route: oral) Med Classific ation: Anti-Infe ctive Agents Breo Ellipta 100 mcg-25 mcg/dose powder for inhalation 2021-08 00:00: 00 07-05 23:59 :00 No [id number] LUNGS 1 inhalat ion DAILY 1 inhalation DAILY (route: inhalation ) Med Classific ation: Respirato ry Therapy Agents nystatin 100,000 unit/gram topical powder 2023-08 00:00: 00 Yes [id number] UNDER BREAST AND ABDOMEN 1 unit 4 TIMES DAILY 1 unit 4 TIMES DAILY (route: topical) Med Classific ation: Dermatolo gical oxygen gas for inhalation 2023-08 00:00: 00 Yes [id number] SOA 2 Liter O2 - CONTINUOUS 2 Liter O2 - CONTINUOUS (route: inhalation ) Med Classific ation: Medical Supplies and Durable Medical Equipment (DME) bumetanide 1 mg tablet 2023-08 00:00: 00 Yes [id number] WATER PILL 1 tablet DAILY 1 tablet DAILY (route: oral) Med Classific ation: Cardiovas cular Therapy Agents buspirone 7.5 mg tablet 2020-08 00:00: 00 Yes [id number] MOOD 1 tablet 2 TIMES DAILY 1 tablet 2 TIMES DAILY (route: oral) Med Classific ation: Central Nervous System Agents Gemtesa 75 mg tablet 2020-08 00:00: 00 Yes [id number] URINARY 1 tablet DAILY 1 tablet DAILY (route: oral) Med Classific ation: Genitouri nary Therapy levothyroxi ne 25 mcg tablet 2020-08 00:00: 00 Yes [id number] THYROID 1 tablet DAILY 1 tablet DAILY (route: oral) Med Classific ation: Endocrine meloxicam 7.5 mg tablet 2020-08 00:00: 00 02-02 23:59 :00 No [id number] PAIN 1 tablet DAILY 1 tablet DAILY (route: oral) Med Classific ation: Analgesic , Anti-infl ammatory or Antipyret ic mirtazapine 15 mg tablet 2021-08 00:00: 00 Yes [id number] RLS 1 tablet BEDTIME 1 tablet BEDTIME (route: oral) Med Classific ation: Central Nervous System Agents pantoprazol e 40 mg tablet,matty yed release 2020-08 00:00: 00 Yes [id number] GERD 1 tablet BEDTIME 1 tablet BEDTIME (route: oral) Med Classific ation: Gastroint estinal Therapy Agents Pepcid 20 mg tablet 2021-08 00:00: 00 Yes [id number] GERD 1 tablet 2 TIMES DAILY 1 tablet 2 TIMES DAILY (route: oral) Med Classific ation: Gastroint estinal Therapy Agents sertraline 150 mg capsule 2020-08 00:00: 00 Yes [id number] MOOD 1 capsule DAILY 1 capsule DAILY (route: oral) Med Classific ation: Central Nervous System Agents valsartan 160 mg tablet 2021-08 00:00: 00 02-02 23:59 :00 No [id number] HEART 1 tablet DAILY 1 tablet DAILY (route: oral) Med Classific ation: Cardiovas cular Therapy Agents cyclobenzap rine 10 mg tablet 09-10 00:00: 00 02-02 23:59 :00 No [id number] PAIN 1 tablet 3 TIMES DAILY 1 tablet 3 TIMES DAILY (route: oral) Med Classific ation: Locomotor System Aspirin Childrens 81 mg chewable tablet 02-02 00:00: 00 Yes [id number] HEART 1 tablet DAILY 1 tablet DAILY (route: oral) Med Classific ation: Hematolog ical Agents atorvastati n 20 mg tablet 02-02 00:00: 00 Yes [id number] CHOLESTEROL 1 tablet DAILY 1 tablet DAILY (route: oral) Med Classific ation: Cardiovas cular Therapy Agents cetirizine 10 mg tablet 02-02 00:00: 00 Yes [id number] ALLERGIES 1 tablet BEDTIME 1 tablet BEDTIME (route: oral) Med Classific ation: Respirato ry Therapy Agents Eliquis 5 mg tablet 02-02 00:00: 00 Yes [id number] HEART 1 tablet 2 TIMES DAILY 1 tablet 2 TIMES DAILY (route: oral) Med Classific ation: Hematolog ical Agents Jardiance 10 mg tablet 02-02 00:00: 00 Yes [id number] DIABETES 1 tablet DAILY 1 tablet DAILY (route: oral) Med Classific ation: Endocrine metoprolol succinate ER 25 mg tablet,exte nded release 24 hr 02-02 00:00: 00 Yes [id number] HEART 1 tablet DAILY 1 tablet DAILY [...] ALBERTO SZYMANSKI RN TO OBSERVE AND ASSESS, EVP OF [employer]ER/LEAD SOFTWARE QA ENGINEER TO OBSERVE FOR RISK FOR FALLS AND INSTRUCT IN FALL PREVENTION, HOME SAFETY, MEDICATION MANAGEMENT, INFECTION PREVENTION, AND NUTRITION MANAGEMENT. RN/EVP [employer]OUNDER/LEAD SOFTWARE QA ENGINEER NURSE MAY PERFORM O2 SATURATION LEVEL ON ADMISSION AND PRN FOR RN TO ASSESS/EVP OF [employer] FOUNDER TO OBSERVE PATIENT, WITH NOTIFICATION TO THE PHYSICIAN IF SATURATION IS 90% IN THE ABSENCE OF MORE SPECIFIC PARAMETERS FROM THE PHYSICIAN. AGENCY MAY PERFORM A RESUMPTION OF CARE VISIT FOLLOWING ANY HOSPITAL ADMISSION. RN/EVP OF [employer] FOUNDER/LEAD SOFTWARE QA ENGINEER TO MONITOR CO-MORBID CONDITIONS LISTED ON THE PLAN OF CARE AND ANY NEW CONDITIONS THAT PRESENT THEMSELVES DURING THIS EPISODE TO IDENTIFY CHANGES AND INTERVENE TO MINIMIZE COMPLICATIONS. [code = RN TO OBSERVE, ASSESS, EVALUATE, AND DEVELOP AN INDIVIDUALIZED PLAN OF CARE. AGENCY MAY ACCEPT ORDERS FROM CONSULTING PHYSICIANS ALBERTO SZYMANSKI RN TO OBSERVE AND ASSESS, EVP OF [employer] FOUNDER/LEAD SOFTWARE QA ENGINEER TO OBSERVE FOR RISK FOR FALLS AND INSTRUCT IN FALL PREVENTION, HOME SAFETY, MEDICATION MANAGEMENT, INFECTION PREVENTION, AND NUTRITION MANAGEMENT. RN/EVP OF [employer] FOUNDER/LEAD SOFTWARE QA ENGINEER NURSE MAY PERFORM O2 SATURATION LEVEL ON ADMISSION AND PRN FOR RN TO ASSESS/EVP OF [employer] FOUNDER TO OBSERVE PATIENT, WITH NOTIFICATION TO THE PHYSICIAN IF SATURATION IS 90% IN THE ABSENCE OF MORE SPECIFIC PARAMETERS FROM THE PHYSICIAN. AGENCY MAY PERFORM A RESUMPTION OF CARE VISIT FOLLOWING ANY HOSPITAL ADMISSION. RN/EVP OF [employer] FOUNDER/LEAD SOFTWARE QA ENGINEER TO MONITOR CO-MORBID CONDITIONS LISTED ON THE PLAN OF CARE AND ANY NEW CONDITIONS THAT PRESENT THEMSELVES DURING THIS EPISODE TO IDENTIFY CHANGES AND INTERVENE TO MINIMIZE COMPLICATIONS.] Future Scheduled Test MEDICATION MANAGEMENT; RN/EVP OF [employer]OUNDER/LEAD SOFTWARE QA ENGINEER TO REVIEW MEDICATIONS FOR INTERACTIONS, EFFECTIVENESS OF DRUG THERAPY, AND SIGNS/SYMPTOMS OF ADVERSE REACTIONS. MAY INSTRUCT AND REINFORCE MEDICATION TEACHING RELATED TO THE USE OF MEDICATIONS, DOSAGE, FREQUENCY, PURPOSE, SIDE EFFECTS, AND TO REPORT COMPLICATIONS. [code = MEDICATION MANAGEMENT; RN/EVP OF [employer] FOUNDER/LEAD SOFTWARE QA ENGINEER TO REVIEW MEDICATIONS FOR INTERACTIONS, EFFECTIVENESS OF DRUG THERAPY, AND SIGNS/SYMPTOMS OF ADVERSE REACTIONS. MAY INSTRUCT AND REINFORCE MEDICATION TEACHING RELATED TO THE USE OF MEDICATIONS, DOSAGE, FREQUENCY, PURPOSE, SIDE EFFECTS, AND TO REPORT COMPLICATIONS.] Future Scheduled Test RESPIRATOR Y SYSTEM MANAGEMENT; RN TO ASSESS AND TEACH, EVP OF [employer] FOUNDER/LEAD SOFTWARE QA ENGINEER TO OBSERVE AND TEACH RELATED TO ALTERED RESPIRATORY STATUS TO MINIMIZE COMPLICATIONS AND REDUCE HOSPITALIZATION. [code = RESPIRATORY SYSTEM MANAGEMENT; RN TO ASSESS AND TEACH, EVP OF [employer] FOUNDER/LEAD SOFTWARE QA ENGINEER TO OBSERVE AND TEACH RELATED TO ALTERED RESPIRATORY STATUS TO MINIMIZE COMPLICATIONS AND REDUCE HOSPITALIZATION.] Future Scheduled Test COPD MANAG EMENT; RN TO ASSESS AND TEACH, EVP OF [employer] FOUNDER/LEAD SOFTWARE QA ENGINEER TO OBSERVE AND TEACH SIGNS/SYMPTOMS OF COPD EXACERBATION AND PROVIDE EARLY INTERVENTIONS TO MINIMIZE RISK OF HOSPITALIZATION. RN/EVP OF [employer] FOUNDER/LEAD SOFTWARE QA ENGINEER TO INSTRUCT ON SELF-CARE MANAGEMENT INCLUDING BREATHING TECHNIQUES, AIRWAY CLEARANCE, AND PROPER USE OF COPD MEDICATIONS. RN TO ASSESS AND TEACH, EVP OF [employer] FOUNDER/LEAD SOFTWARE QA ENGINEER TO OBSERVE AND TEACH PATIENT/CAREGIVER ABILITY TO MONITOR AND RECORD VITAL SIGNS INCLUDING PULSE OXIMETRY AND BLOOD PRESSURE. PULSE OXIMETER AND BP MONITOR TO BE PROVIDED IF NEEDED [code = COPD MANAGEMENT; RN TO ASSESS AND TEACH, EVP OF [employer] FOUNDER/LEAD SOFTWARE QA ENGINEER TO OBSERVE AND TEACH SIGNS/SYMPTOMS OF COPD EXACERBATION AND PROVIDE EARLY INTERVENTIONS TO MINIMIZE RISK OF HOSPITALIZATION. RN/EVP OF [employer] FOUNDER/LEAD SOFTWARE QA ENGINEER TO INSTRUCT ON SELF-CARE MANAGEMENT INCLUDING BREATHING TECHNIQUES, AIRWAY CLEARANCE, AND PROPER USE OF COPD MEDICATIONS. RN TO ASSESS AND TEACH, EVP OF [employer] FOUNDER/LEAD SOFTWARE QA ENGINEER TO OBSERVE AND TEACH PATIENT/CAREGIVER ABILITY TO MONITOR AND RECORD VITAL SIGNS INCLUDING PULSE OXIMETRY AND BLOOD PRESSURE. PULSE OXIMETER AND BP MONITOR TO BE PROVIDED IF NEEDED] Future Scheduled Test OXYGEN THE RAPY; RN/EVP OF [employer] FOUNDER/LEAD SOFTWARE QA ENGINEER TO INSTRUCT ON OXYGEN MANAGEMENT INCLUDING: ADMINISTRATION AT 2L/MIN VIA CONTINUOUS/PRN FOR , CARE OF EQUIPMENT AND SAFETY. [code = OXYGEN THERAPY; RN/EVP OF [employer] FOUNDER/LEAD SOFTWARE QA ENGINEER TO INSTRUCT ON OXYGEN MANAGEMENT INCLUDING: ADMINISTRATION [...] Scheduled Test PRN VISITS ; NUMBER OF RN/EVP OF [employer] FOUNDER/LEAD SOFTWARE QA ENGINEER VISITS: 2 RN/EVP OF [employer] FOUNDER/LEAD SOFTWARE QA ENGINEER TO PERFORM: WOUND EVALUATE FOR THE FOLLOWING REASONS: OBSERVATION [code = PRN VISITS; NUMBER OF RN/EVP OF [employer] FOUNDER/LEAD SOFTWARE QA ENGINEER VISITS: 2 RN/EVP OF [employer] FOUNDER/LEAD SOFTWARE QA ENGINEER TO PERFORM: WOUND EVALUATE FOR THE FOLLOWING REASONS: OBSERVATION] Future Scheduled Test RN/EVP OF [employer] FOUNDER/LEAD SOFTWARE QA ENGINEER TO PERFORM/TEACH ARTERIAL ULCER CARE TO RIGHT AND LEFT LEGS IRRIGATE/CLEANSE WITH WOUND CLEANZER APPLY CALCIUM SILVER ALGINATE SECURE WITH 4XR BORDER GAUZE CHANGE DRESSING EVERY 3 DAYS A WEEK FOR TWO WEEKS THEN 2 DAYS A WEEK TILL EOE DATE AND CHANGE PRN FOR DISLODGED DRESSING OR SOILING BY CAREGIVER AND PT IN BETWEEN NURSING VISITS [code = RN/EVP OF [employer] FOUNDER/LEAD SOFTWARE QA ENGINEER TO PERFORM/TEACH ARTERIAL ULCER CARE TO RIGHT [...] End Date/Time Encounter Type Admission Type Attending [facility] Care Department Encounter ID Discharge Date Discharge Status Discharge Condition Discharge Reason Percent Goals Met 2025-06-16 00:00:00 2025-06-24 00:00:00 Outpatient [facility] [id number] 2025-06-24 00:00:00 DISCHARGE TO HOME OR SELF CARE INDEPENDEN T IN THE HOME HH - NON COMPLIANT WITH PLAN OF TREATMENT [id number]
--- OUTSIDE RECORDS SUMMARY | 2025-06-23 19:00 | XMS_ITS | Clinical Summary ---
Author Organization Unknown Care Team Providers Care Visiting Housekeeper Name Role Phone STEPHON STORE CLERK CHECKER, ALBERTO Unavailable Unavailable SILVA RN, GALLO Unavailable Unavailable KODY PT, KILEY Unavailable Unavailable ARABELLA DURHAMN, JOSE ENRIQUE Unavailable Unavailable SALAZAR RETAIL MANAGER IN TRAINING, RAMYA Unavailable Unavailabl e ROSSI OT, ROXANE Unavailable Unavailable ROMEL ANGELIQUE/PAUL, MARIEA Unavailable Unavail able Payers Payer Name Policy Type Policy Number Effective Date [facility]pira [facility]ion Date [facility] [id number] Problems Condition Name Condition Details Condition Category [...] 10-30 00:00: 00 11-07 23:59 :00 No [id number] INFECTION Per instruc tions DAILY Per instructio ns DAILY (route: intravenou s) Med Classific ation: Anti-Infe ctive Agents sertraline 100 mg tablet 11-14 00:00: 00 07-05 23:59 :00 No [id number] DEPRESSION 1 tablet DAILY 1 tablet DAILY (route: oral) Med Classific ation: Central Nervous System Agents levothyroxi ne 25 mcg tablet 11-14 00:00: 00 07-05 23:59 :00 No [id number] SUPPLEMENTA L 1 tablet DAILY 1 tablet DAILY (route: oral) Med Classific ation: Endocrine nadolol 40 mg tablet 11-14 00:00: 00 07-05 23:59 :00 No [id number] BP 1 tablet DAILY 1 tablet DAILY (route: oral) Med Classific ation: Cardiovas cular Therapy Agents diltiazem CD 180 mg capsule,ext ended release 24 hr 11-14 00:00: 00 07-05 23:59 :00 No [id number] BP 1 capsule DAILY 1 capsule DAILY (route: oral) Med Classific ation: Cardiovas cular Therapy Agents pantoprazol e 40 mg tablet,matty yed release 11-14 00:00: 00 07-05 23:59 :00 No [id number] STOMACH 1 tablet DAILY 1 tablet DAILY (route: oral) Med Classific ation: Gastroint estinal Therapy Agents famotidine 20 mg tablet 11-14 00:00: 00 07-05 23:59 :00 No [id number] STOMACH Per instruc tions DAILY Per instructio ns DAILY (route: oral) Med Classific ation: Gastroint estinal Therapy Agents sertraline 50 mg tablet 11-14 00:00: 00 07-05 23:59 :00 No [id number] ANXIETY 1 tablet DAILY 1 tablet DAILY (route: oral) Med Classific ation: Central Nervous System Agents gabapentin 100 mg capsule 11-14 00:00: 00 01-09 23:59 :00 No [id number] NERVE PAIN 1 capsule 2 TIMES DAILY 1 capsule 2 TIMES DAILY (route: oral) Med Classific ation: Central Nervous System Agents buspirone 7.5 mg tablet 11-14 00:00: 00 07-05 23:59 :00 No [id number] ANXIETY 1 tablet DAILY 1 tablet DAILY (route: oral) Med Classific ation: Central Nervous System Agents mirtazapine 15 mg tablet 11-14 00:00: 00 07-05 23:59 :00 No [id number] SLEEP 1 tablet 2 TIMES A WEEK 1 tablet 2 TIMES A WEEK (route: oral) Med Classific ation: Central Nervous System Agents cefdinir 300 mg capsule 01-02 00:00: 00 01-03 23:59 :00 No [id number] for cellulits/ infection to leg 1 capsule 2 TIMES DAILY 1 capsule 2 TIMES DAILY (route: oral) Med Classific ation: Anti-Infe ctive Agents Breo Ellipta 100 mcg-25 mcg/dose powder for inhalation 2021-08 00:00: 00 07-05 23:59 :00 No [id number] LUNGS 1 inhalat ion DAILY 1 inhalation DAILY (route: inhalation ) Med Classific ation: Respirato ry Therapy Agents nystatin 100,000 unit/gram topical powder 2023-08 00:00: 00 Yes [id number] UNDER BREAST AND ABDOMEN 1 unit 4 TIMES DAILY 1 unit 4 TIMES DAILY (route: topical) Med Classific ation: Dermatolo gical oxygen gas for inhalation 2023-08 00:00: 00 Yes [id number] SOA 2 Liter O2 - CONTINUOUS 2 Liter O2 - CONTINUOUS (route: inhalation ) Med Classific ation: Medical Supplies and Durable Medical Equipment (DME) bumetanide 1 mg tablet 2023-08 00:00: 00 Yes [id number] WATER PILL 1 tablet DAILY 1 tablet DAILY (route: oral) Med Classific ation: Cardiovas cular Therapy Agents buspirone 7.5 mg tablet 2020-08 00:00: 00 Yes [id number] MOOD 1 tablet 2 TIMES DAILY 1 tablet 2 TIMES DAILY (route: oral) Med Classific ation: Central Nervous System Agents Gemtesa 75 mg tablet 2020-08 00:00: 00 Yes [id number] URINARY 1 tablet DAILY 1 tablet DAILY (route: oral) Med Classific ation: Genitouri nary Therapy levothyroxi ne 25 mcg tablet 2020-08 00:00: 00 Yes [id number] THYROID 1 tablet DAILY 1 tablet DAILY (route: oral) Med Classific ation: Endocrine meloxicam 7.5 mg tablet 2020-08 00:00: 00 02-02 23:59 :00 No [id number] PAIN 1 tablet DAILY 1 tablet DAILY (route: oral) Med Classific ation: Analgesic , Anti-infl ammatory or Antipyret ic mirtazapine 15 mg tablet 2021-08 00:00: 00 Yes [id number] RLS 1 tablet BEDTIME 1 tablet BEDTIME (route: oral) Med Classific ation: Central Nervous System Agents pantoprazol e 40 mg tablet,matty yed release 2020-08 00:00: 00 Yes [id number] GERD 1 tablet BEDTIME 1 tablet BEDTIME (route: oral) Med Classific ation: Gastroint estinal Therapy Agents Pepcid 20 mg tablet 2021-08 00:00: 00 Yes [id number] GERD 1 tablet 2 TIMES DAILY 1 tablet 2 TIMES DAILY (route: oral) Med Classific ation: Gastroint estinal Therapy Agents sertraline 150 mg capsule 2020-08 00:00: 00 Yes [id number] MOOD 1 capsule DAILY 1 capsule DAILY (route: oral) Med Classific ation: Central Nervous System Agents valsartan 160 mg tablet 2021-08 00:00: 00 02-02 23:59 :00 No [id number] HEART 1 tablet DAILY 1 tablet DAILY (route: oral) Med Classific ation: Cardiovas cular Therapy Agents cyclobenzap rine 10 mg tablet 09-10 00:00: 00 02-02 23:59 :00 No [id number] PAIN 1 tablet 3 TIMES DAILY 1 tablet 3 TIMES DAILY (route: oral) Med Classific ation: Locomotor System Aspirin Childrens 81 mg chewable tablet 02-02 00:00: 00 Yes [id number] HEART 1 tablet DAILY 1 tablet DAILY (route: oral) Med Classific ation: Hematolog ical Agents atorvastati n 20 mg tablet 02-02 00:00: 00 Yes [id number] CHOLESTEROL 1 tablet DAILY 1 tablet DAILY (route: oral) Med Classific ation: Cardiovas cular Therapy Agents cetirizine 10 mg tablet 02-02 00:00: 00 Yes [id number] ALLERGIES 1 tablet BEDTIME 1 tablet BEDTIME (route: oral) Med Classific ation: Respirato ry Therapy Agents Eliquis 5 mg tablet 02-02 00:00: 00 Yes [id number] HEART 1 tablet 2 TIMES DAILY 1 tablet 2 TIMES DAILY (route: oral) Med Classific ation: Hematolog ical Agents Jardiance 10 mg tablet 02-02 00:00: 00 Yes [id number] DIABETES 1 tablet DAILY 1 tablet DAILY (route: oral) Med Classific ation: Endocrine metoprolol succinate ER 25 mg tablet,exte nded release 24 hr 02-02 00:00: 00 Yes [id number] HEART 1 tablet DAILY 1 tablet DAILY [...] ALBERTO SZYMANSKI RN TO OBSERVE AND ASSESS, SHALLOT CLEANER/JAMMER HOOKER TO OBSERVE FOR RISK FOR FALLS AND INSTRUCT IN FALL PREVENTION, HOME SAFETY, MEDICATION MANAGEMENT, INFECTION PREVENTION, AND NUTRITION MANAGEMENT. RN/SHALLOT CLEANER/JAMMER HOOKER NURSE MAY PERFORM O2 SATURATION LEVEL ON ADMISSION AND PRN FOR RN TO ASSESS/SHALLOT CLEANER TO OBSERVE PATIENT, WITH NOTIFICATION TO THE PHYSICIAN IF SATURATION IS 90% IN THE ABSENCE OF MORE SPECIFIC PARAMETERS FROM THE PHYSICIAN. AGENCY MAY PERFORM A RESUMPTION OF CARE VISIT FOLLOWING ANY HOSPITAL ADMISSION. RN/SHALLOT CLEANER/JAMMER HOOKER TO MONITOR CO-MORBID CONDITIONS LISTED ON THE PLAN OF CARE AND ANY NEW CONDITIONS THAT PRESENT THEMSELVES DURING THIS EPISODE TO IDENTIFY CHANGES AND INTERVENE TO MINIMIZE COMPLICATIONS. [code = RN TO OBSERVE, ASSESS, EVALUATE, AND DEVELOP AN INDIVIDUALIZED PLAN OF CARE. AGENCY MAY ACCEPT ORDERS FROM CONSULTING PHYSICIANS ALBERTO SZYMANSKI RN TO OBSERVE AND ASSESS, SHALLOT CLEANER/JAMMER HOOKER TO OBSERVE FOR RISK FOR FALLS AND INSTRUCT IN FALL PREVENTION, HOME SAFETY, MEDICATION MANAGEMENT, INFECTION PREVENTION, AND NUTRITION MANAGEMENT. RN/SHALLOT CLEANER/JAMMER HOOKER NURSE MAY PERFORM O2 SATURATION LEVEL ON ADMISSION AND PRN FOR RN TO ASSESS/SHALLOT CLEANER TO OBSERVE PATIENT, WITH NOTIFICATION TO THE PHYSICIAN IF SATURATION IS 90% IN THE ABSENCE OF MORE SPECIFIC PARAMETERS FROM THE PHYSICIAN. AGENCY MAY PERFORM A RESUMPTION OF CARE VISIT FOLLOWING ANY HOSPITAL ADMISSION. RN/SHALLOT CLEANER/JAMMER HOOKER TO MONITOR CO-MORBID CONDITIONS LISTED ON THE PLAN OF CARE AND ANY NEW CONDITIONS THAT PRESENT THEMSELVES DURING THIS EPISODE TO IDENTIFY CHANGES AND INTERVENE TO MINIMIZE COMPLICATIONS.] Future Scheduled Test MEDICATION MANAGEMENT; RN/SHALLOT CLEANER/JAMMER HOOKER TO REVIEW MEDICATIONS FOR INTERACTIONS, EFFECTIVENESS OF DRUG THERAPY, AND SIGNS/SYMPTOMS OF ADVERSE REACTIONS. MAY INSTRUCT AND REINFORCE MEDICATION TEACHING RELATED TO THE USE OF MEDICATIONS, DOSAGE, FREQUENCY, PURPOSE, SIDE EFFECTS, AND TO REPORT COMPLICATIONS. [code = MEDICATION MANAGEMENT; RN/SHALLOT CLEANER/JAMMER HOOKER TO REVIEW MEDICATIONS FOR INTERACTIONS, EFFECTIVENESS OF DRUG THERAPY, AND SIGNS/SYMPTOMS OF ADVERSE REACTIONS. MAY INSTRUCT AND REINFORCE MEDICATION TEACHING RELATED TO THE USE OF MEDICATIONS, DOSAGE, FREQUENCY, PURPOSE, SIDE EFFECTS, AND TO REPORT COMPLICATIONS.] Future Scheduled Test RESPIRATOR Y SYSTEM MANAGEMENT; RN TO ASSESS AND TEACH, SHALLOT CLEANER/JAMMER HOOKER TO OBSERVE AND TEACH RELATED TO ALTERED RESPIRATORY STATUS TO MINIMIZE COMPLICATIONS AND REDUCE HOSPITALIZATION. [code = RESPIRATORY SYSTEM MANAGEMENT; RN TO ASSESS AND TEACH, SHALLOT CLEANER/JAMMER HOOKER TO OBSERVE AND TEACH RELATED TO ALTERED RESPIRATORY STATUS TO MINIMIZE COMPLICATIONS AND REDUCE HOSPITALIZATION.] Future Scheduled Test COPD MANAG EMENT; RN TO ASSESS AND TEACH, SHALLOT CLEANER/JAMMER HOOKER TO OBSERVE AND TEACH SIGNS/SYMPTOMS OF COPD EXACERBATION AND PROVIDE EARLY INTERVENTIONS TO MINIMIZE RISK OF HOSPITALIZATION. RN/SHALLOT CLEANER/JAMMER HOOKER TO INSTRUCT ON SELF-CARE MANAGEMENT INCLUDING BREATHING TECHNIQUES, AIRWAY CLEARANCE, AND PROPER USE OF COPD MEDICATIONS. RN TO ASSESS AND TEACH, SHALLOT CLEANER/JAMMER HOOKER TO OBSERVE AND TEACH PATIENT/CAREGIVER ABILITY TO MONITOR AND RECORD VITAL SIGNS INCLUDING PULSE OXIMETRY AND BLOOD PRESSURE. PULSE OXIMETER AND BP MONITOR TO BE PROVIDED IF NEEDED [code = COPD MANAGEMENT; RN TO ASSESS AND TEACH, SHALLOT CLEANER/JAMMER HOOKER TO OBSERVE AND TEACH SIGNS/SYMPTOMS OF COPD EXACERBATION AND PROVIDE EARLY INTERVENTIONS TO MINIMIZE RISK OF HOSPITALIZATION. RN/SHALLOT CLEANER/JAMMER HOOKER TO INSTRUCT ON SELF-CARE MANAGEMENT INCLUDING BREATHING TECHNIQUES, AIRWAY CLEARANCE, AND PROPER USE OF COPD MEDICATIONS. RN TO ASSESS AND TEACH, SHALLOT CLEANER/JAMMER HOOKER TO OBSERVE AND TEACH PATIENT/CAREGIVER ABILITY TO MONITOR AND RECORD VITAL SIGNS INCLUDING PULSE OXIMETRY AND BLOOD PRESSURE. PULSE OXIMETER AND BP MONITOR TO BE PROVIDED IF NEEDED] Future Scheduled Test OXYGEN THE RAPY; RN/SHALLOT CLEANER/JAMMER HOOKER TO INSTRUCT ON OXYGEN MANAGEMENT INCLUDING: ADMINISTRATION AT 2L/MIN VIA CONTINUOUS/PRN FOR , CARE OF EQUIPMENT AND SAFETY. [code = OXYGEN THERAPY; RN/SHALLOT CLEANER/JAMMER HOOKER TO INSTRUCT ON OXYGEN MANAGEMENT INCLUDING: ADMINISTRATION [...] Scheduled Test PRN VISITS ; NUMBER OF RN/SHALLOT CLEANER/JAMMER HOOKER VISITS: 2 RN/SHALLOT CLEANER/JAMMER HOOKER TO PERFORM: WOUND EVALUATE FOR THE FOLLOWING REASONS: OBSERVATION [code = PRN VISITS; NUMBER OF RN/SHALLOT CLEANER/JAMMER HOOKER VISITS: 2 RN/SHALLOT CLEANER/JAMMER HOOKER TO PERFORM: WOUND EVALUATE FOR THE FOLLOWING REASONS: OBSERVATION] Future Scheduled Test RN/SHALLOT CLEANER/JAMMER HOOKER TO PERFORM/TEACH ARTERIAL ULCER CARE TO RIGHT AND LEFT LEGS IRRIGATE/CLEANSE WITH WOUND CLEANZER APPLY CALCIUM SILVER ALGINATE SECURE WITH 4XR BORDER GAUZE CHANGE DRESSING EVERY 3 DAYS A WEEK FOR TWO WEEKS THEN 2 DAYS A WEEK TILL EOE DATE AND CHANGE PRN FOR DISLODGED DRESSING OR SOILING BY CAREGIVER AND PT IN BETWEEN NURSING VISITS [code = RN/SHALLOT CLEANER/JAMMER HOOKER TO PERFORM/TEACH ARTERIAL ULCER CARE TO RIGHT [...] End Date/Time Encounter Type Admission Type Attending [facility] Care Department Encounter ID Discharge Date Discharge Status Discharge Condition Discharge Reason Percent Goals Met 2025-06-16 00:00:00 2025-06-24 00:00:00 Outpatient [facility] [id number] 2025-06-24 00:00:00 DISCHARGE TO HOME OR SELF CARE INDEPENDEN T IN THE HOME HH - NON COMPLIANT WITH PLAN OF TREATMENT 100.00
--- OUTSIDE RECORDS SUMMARY | 2025-06-23 19:00 | XMS_ITS | Clinical Summary ---
Author Organization Unknown Care Team Providers Care Supervisor [employer]penters Name Role Phone TSEPHON PBX INSPECTOR, ALBERTO Unavailable Unavailable SILVA RN, GALLO Unavailable Unavailable KODY PT, KILEY Unavailable Unavailable ARABELLA DURHAMN, JOSE ENRIQUE Unavailable Unavailable SALAZAR TAIL SAWYER, RAMYA Unavailable Unavailabl e ROSSI OT, ROXANE Unavailable Unavailable ROMEL ANGELIQUE/PAUL, MARIEA Unavailable Unavail able Payers Payer Name Policy Type Policy Number Effective Date Expira tion Date [facility] [id number] Problems Condition Name Condition Details Condition Category [...] 10-30 00:00: 00 11-07 23:59 :00 No [id number] INFECTION Per instruc tions DAILY Per instructio ns DAILY (route: intravenou s) Med Classific ation: Anti-Infe ctive Agents sertraline 100 mg tablet 11-14 00:00: 00 07-05 23:59 :00 No [id number] DEPRESSION 1 tablet DAILY 1 tablet DAILY (route: oral) Med Classific ation: Central Nervous System Agents levothyroxi ne 25 mcg tablet 11-14 00:00: 00 07-05 23:59 :00 No [id number] SUPPLEMENTA L 1 tablet DAILY 1 tablet DAILY (route: oral) Med Classific ation: Endocrine nadolol 40 mg tablet 11-14 00:00: 00 07-05 23:59 :00 No [id number] BP 1 tablet DAILY 1 tablet DAILY (route: oral) Med Classific ation: Cardiovas cular Therapy Agents diltiazem CD 180 mg capsule,ext ended release 24 hr 11-14 00:00: 00 07-05 23:59 :00 No [id number] BP 1 capsule DAILY 1 capsule DAILY (route: oral) Med Classific ation: Cardiovas cular Therapy Agents pantoprazol e 40 mg tablet,matty yed release 11-14 00:00: 00 07-05 23:59 :00 No [id number] STOMACH 1 tablet DAILY 1 tablet DAILY (route: oral) Med Classific ation: Gastroint estinal Therapy Agents famotidine 20 mg tablet 11-14 00:00: 00 07-05 23:59 :00 No [id number] STOMACH Per instruc tions DAILY Per instructio ns DAILY (route: oral) Med Classific ation: Gastroint estinal Therapy Agents sertraline 50 mg tablet 11-14 00:00: 00 07-05 23:59 :00 No [id number] ANXIETY 1 tablet DAILY 1 tablet DAILY (route: oral) Med Classific ation: Central Nervous System Agents gabapentin 100 mg capsule 11-14 00:00: 00 01-09 23:59 :00 No [id number] NERVE PAIN 1 capsule 2 TIMES DAILY 1 capsule 2 TIMES DAILY (route: oral) Med Classific ation: Central Nervous System Agents buspirone 7.5 mg tablet 11-14 00:00: 00 07-05 23:59 :00 No [id number] ANXIETY 1 tablet DAILY 1 tablet DAILY (route: oral) Med Classific ation: Central Nervous System Agents mirtazapine 15 mg tablet 11-14 00:00: 00 07-05 23:59 :00 No [id number] SLEEP 1 tablet 2 TIMES A WEEK 1 tablet 2 TIMES A WEEK (route: oral) Med Classific ation: Central Nervous System Agents cefdinir 300 mg capsule 01-02 00:00: 00 01-03 23:59 :00 No [id number] for cellulits/ infection to leg 1 capsule 2 TIMES DAILY 1 capsule 2 TIMES DAILY (route: oral) Med Classific ation: Anti-Infe ctive Agents Breo Ellipta 100 mcg-25 mcg/dose powder for inhalation 2021-08 00:00: 00 07-05 23:59 :00 No [id number] LUNGS 1 inhalat ion DAILY 1 inhalation DAILY (route: inhalation ) Med Classific ation: Respirato ry Therapy Agents nystatin 100,000 unit/gram topical powder 2023-08 00:00: 00 Yes [id number] UNDER BREAST AND ABDOMEN 1 unit 4 TIMES DAILY 1 unit 4 TIMES DAILY (route: topical) Med Classific ation: Dermatolo gical oxygen gas for inhalation 2023-08 00:00: 00 Yes [id number] SOA 2 Liter O2 - CONTINUOUS 2 Liter O2 - CONTINUOUS (route: inhalation ) Med Classific ation: Medical Supplies and Durable Medical Equipment (DME) bumetanide 1 mg tablet 2023-08 00:00: 00 Yes [id number] WATER PILL 1 tablet DAILY 1 tablet DAILY (route: oral) Med Classific ation: Cardiovas cular Therapy Agents buspirone 7.5 mg tablet 2020-08 00:00: 00 Yes [id number] MOOD 1 tablet 2 TIMES DAILY 1 tablet 2 TIMES DAILY (route: oral) Med Classific ation: Central Nervous System Agents Gemtesa 75 mg tablet 2020-08 00:00: 00 Yes [id number] URINARY 1 tablet DAILY 1 tablet DAILY (route: oral) Med Classific ation: Genitouri nary Therapy levothyroxi ne 25 mcg tablet 2020-08 00:00: 00 Yes [id number] THYROID 1 tablet DAILY 1 tablet DAILY (route: oral) Med Classific ation: Endocrine meloxicam 7.5 mg tablet 2020-08 00:00: 00 02-02 23:59 :00 No [id number] PAIN 1 tablet DAILY 1 tablet DAILY (route: oral) Med Classific ation: Analgesic , Anti-infl ammatory or Antipyret ic mirtazapine 15 mg tablet 2021-08 00:00: 00 Yes [id number] RLS 1 tablet BEDTIME 1 tablet BEDTIME (route: oral) Med Classific ation: Central Nervous System Agents pantoprazol e 40 mg tablet,matty yed release 2020-08 00:00: 00 Yes [id number] GERD 1 tablet BEDTIME 1 tablet BEDTIME (route: oral) Med Classific ation: Gastroint estinal Therapy Agents Pepcid 20 mg tablet 2021-08 00:00: 00 Yes [id number] GERD 1 tablet 2 TIMES DAILY 1 tablet 2 TIMES DAILY (route: oral) Med Classific ation: Gastroint estinal Therapy Agents sertraline 150 mg capsule 2020-08 00:00: 00 Yes [id number] MOOD 1 capsule DAILY 1 capsule DAILY (route: oral) Med Classific ation: Central Nervous System Agents valsartan 160 mg tablet 2021-08 00:00: 00 02-02 23:59 :00 No [id number] HEART 1 tablet DAILY 1 tablet DAILY (route: oral) Med Classific ation: Cardiovas cular Therapy Agents cyclobenzap rine 10 mg tablet 09-10 00:00: 00 02-02 23:59 :00 No [id number] PAIN 1 tablet 3 TIMES DAILY 1 tablet 3 TIMES DAILY (route: oral) Med Classific ation: Locomotor System Aspirin Childrens 81 mg chewable tablet 02-02 00:00: 00 Yes [id number] HEART 1 tablet DAILY 1 tablet DAILY (route: oral) Med Classific ation: Hematolog ical Agents atorvastati n 20 mg tablet 02-02 00:00: 00 Yes [id number] CHOLESTEROL 1 tablet DAILY 1 tablet DAILY (route: oral) Med Classific ation: Cardiovas cular Therapy Agents cetirizine 10 mg tablet 02-02 00:00: 00 Yes [id number] ALLERGIES 1 tablet BEDTIME 1 tablet BEDTIME (route: oral) Med Classific ation: Respirato ry Therapy Agents Eliquis 5 mg tablet 02-02 00:00: 00 Yes [id number] HEART 1 tablet 2 TIMES DAILY 1 tablet 2 TIMES DAILY (route: oral) Med Classific ation: Hematolog ical Agents Jardiance 10 mg tablet 02-02 00:00: 00 Yes [id number] DIABETES 1 tablet DAILY 1 tablet DAILY (route: oral) Med Classific ation: Endocrine metoprolol succinate ER 25 mg tablet,exte nded release 24 hr 02-02 00:00: 00 Yes [id number] HEART 1 tablet DAILY 1 tablet DAILY [...] ALBERTO SZYMANSKI RN TO OBSERVE AND ASSESS, RISK LEAD/CASH APPLICATIONS ANALYST TO OBSERVE FOR RISK FOR FALLS AND INSTRUCT IN FALL PREVENTION, HOME SAFETY, MEDICATION MANAGEMENT, INFECTION PREVENTION, AND NUTRITION MANAGEMENT. RN/RISK LEAD/CASH APPLICATIONS ANALYST NURSE MAY PERFORM O2 SATURATION LEVEL ON ADMISSION AND PRN FOR RN TO ASSESS/RISK LEAD TO OBSERVE PATIENT, WITH NOTIFICATION TO THE PHYSICIAN IF SATURATION IS 90% IN THE ABSENCE OF MORE SPECIFIC PARAMETERS FROM THE PHYSICIAN. AGENCY MAY PERFORM A RESUMPTION OF CARE VISIT FOLLOWING ANY HOSPITAL ADMISSION. RN/RISK LEAD/CASH APPLICATIONS ANALYST TO MONITOR CO-MORBID CONDITIONS LISTED ON THE PLAN OF CARE AND ANY NEW CONDITIONS THAT PRESENT THEMSELVES DURING THIS EPISODE TO IDENTIFY CHANGES AND INTERVENE TO MINIMIZE COMPLICATIONS. [code = RN TO OBSERVE, ASSESS, EVALUATE, AND DEVELOP AN INDIVIDUALIZED PLAN OF CARE. AGENCY MAY ACCEPT ORDERS FROM CONSULTING PHYSICIANS ALBERTO SZYMANSKI RN TO OBSERVE AND ASSESS, RISK LEAD/CASH APPLICATIONS ANALYST TO OBSERVE FOR RISK FOR FALLS AND INSTRUCT IN FALL PREVENTION, HOME SAFETY, MEDICATION MANAGEMENT, INFECTION PREVENTION, AND NUTRITION MANAGEMENT. RN/RISK LEAD/CASH APPLICATIONS ANALYST NURSE MAY PERFORM O2 SATURATION LEVEL ON ADMISSION AND PRN FOR RN TO ASSESS/RISK LEAD TO OBSERVE PATIENT, WITH NOTIFICATION TO THE PHYSICIAN IF SATURATION IS 90% IN THE ABSENCE OF MORE SPECIFIC PARAMETERS FROM THE PHYSICIAN. AGENCY MAY PERFORM A RESUMPTION OF CARE VISIT FOLLOWING ANY HOSPITAL ADMISSION. RN/RISK LEAD/CASH APPLICATIONS ANALYST TO MONITOR CO-MORBID CONDITIONS LISTED ON THE PLAN OF CARE AND ANY NEW CONDITIONS THAT PRESENT THEMSELVES DURING THIS EPISODE TO IDENTIFY CHANGES AND INTERVENE TO MINIMIZE COMPLICATIONS.] Future Scheduled Test MEDICATION MANAGEMENT; RN/RISK LEAD/CASH APPLICATIONS ANALYST TO REVIEW MEDICATIONS FOR INTERACTIONS, EFFECTIVENESS OF DRUG THERAPY, AND SIGNS/SYMPTOMS OF ADVERSE REACTIONS. MAY INSTRUCT AND REINFORCE MEDICATION TEACHING RELATED TO THE USE OF MEDICATIONS, DOSAGE, FREQUENCY, PURPOSE, SIDE EFFECTS, AND TO REPORT COMPLICATIONS. [code = MEDICATION MANAGEMENT; RN/RISK LEAD/CASH APPLICATIONS ANALYST TO REVIEW MEDICATIONS FOR INTERACTIONS, EFFECTIVENESS OF DRUG THERAPY, AND SIGNS/SYMPTOMS OF ADVERSE REACTIONS. MAY INSTRUCT AND REINFORCE MEDICATION TEACHING RELATED TO THE USE OF MEDICATIONS, DOSAGE, FREQUENCY, PURPOSE, SIDE EFFECTS, AND TO REPORT COMPLICATIONS.] Future Scheduled Test RESPIRATOR Y SYSTEM MANAGEMENT; RN TO ASSESS AND TEACH, RISK LEAD/CASH APPLICATIONS ANALYST TO OBSERVE AND TEACH RELATED TO ALTERED RESPIRATORY STATUS TO MINIMIZE COMPLICATIONS AND REDUCE HOSPITALIZATION. [code = RESPIRATORY SYSTEM MANAGEMENT; RN TO ASSESS AND TEACH, RISK LEAD/CASH APPLICATIONS ANALYST TO OBSERVE AND TEACH RELATED TO ALTERED RESPIRATORY STATUS TO MINIMIZE COMPLICATIONS AND REDUCE HOSPITALIZATION.] Future Scheduled Test COPD MANAG EMENT; RN TO ASSESS AND TEACH, RISK LEAD/CASH APPLICATIONS ANALYST TO OBSERVE AND TEACH SIGNS/SYMPTOMS OF COPD EXACERBATION AND PROVIDE EARLY INTERVENTIONS TO MINIMIZE RISK OF HOSPITALIZATION. RN/RISK LEAD/CASH APPLICATIONS ANALYST TO INSTRUCT ON SELF-CARE MANAGEMENT INCLUDING BREATHING TECHNIQUES, AIRWAY CLEARANCE, AND PROPER USE OF COPD MEDICATIONS. RN TO ASSESS AND TEACH, RISK LEAD/CASH APPLICATIONS ANALYST TO OBSERVE AND TEACH PATIENT/CAREGIVER ABILITY TO MONITOR AND RECORD VITAL SIGNS INCLUDING PULSE OXIMETRY AND BLOOD PRESSURE. PULSE OXIMETER AND BP MONITOR TO BE PROVIDED IF NEEDED [code = COPD MANAGEMENT; RN TO ASSESS AND TEACH, RISK LEAD/CASH APPLICATIONS ANALYST TO OBSERVE AND TEACH SIGNS/SYMPTOMS OF COPD EXACERBATION AND PROVIDE EARLY INTERVENTIONS TO MINIMIZE RISK OF HOSPITALIZATION. RN/RISK LEAD/CASH APPLICATIONS ANALYST TO INSTRUCT ON SELF-CARE MANAGEMENT INCLUDING BREATHING TECHNIQUES, AIRWAY CLEARANCE, AND PROPER USE OF COPD MEDICATIONS. RN TO ASSESS AND TEACH, RISK LEAD/CASH APPLICATIONS ANALYST TO OBSERVE AND TEACH PATIENT/CAREGIVER ABILITY TO MONITOR AND RECORD VITAL SIGNS INCLUDING PULSE OXIMETRY AND BLOOD PRESSURE. PULSE OXIMETER AND BP MONITOR TO BE PROVIDED IF NEEDED] Future Scheduled Test OXYGEN THE RAPY; RN/RISK LEAD/CASH APPLICATIONS ANALYST TO INSTRUCT ON OXYGEN MANAGEMENT INCLUDING: ADMINISTRATION AT 2L/MIN VIA CONTINUOUS/PRN FOR , CARE OF EQUIPMENT AND SAFETY. [code = OXYGEN THERAPY; RN/RISK LEAD/CASH APPLICATIONS ANALYST TO INSTRUCT ON OXYGEN MANAGEMENT INCLUDING: ADMINISTRATION [...] Scheduled Test PRN VISITS ; NUMBER OF RN/RISK LEAD/CASH APPLICATIONS ANALYST VISITS: 2 RN/RISK LEAD/CASH APPLICATIONS ANALYST TO PERFORM: WOUND EVALUATE FOR THE FOLLOWING REASONS: OBSERVATION [code = PRN VISITS; NUMBER OF RN/RISK LEAD/CASH APPLICATIONS ANALYST VISITS: 2 RN/RISK LEAD/CASH APPLICATIONS ANALYST TO PERFORM: WOUND EVALUATE FOR THE FOLLOWING REASONS: OBSERVATION] Future Scheduled Test RN/RISK LEAD/CASH APPLICATIONS ANALYST TO PERFORM/TEACH ARTERIAL ULCER CARE TO RIGHT AND LEFT LEGS IRRIGATE/CLEANSE WITH WOUND CLEANZER APPLY CALCIUM SILVER ALGINATE SECURE WITH 4XR BORDER GAUZE CHANGE DRESSING EVERY 3 DAYS A WEEK FOR TWO WEEKS THEN 2 DAYS A WEEK TILL EOE DATE AND CHANGE PRN FOR DISLODGED DRESSING OR SOILING BY CAREGIVER AND PT IN BETWEEN NURSING VISITS [code = RN/RISK LEAD/CASH APPLICATIONS ANALYST TO PERFORM/TEACH ARTERIAL ULCER CARE TO RIGHT [...] End Date/Time Encounter Type Admission Type Attending [facility] Care Department Encounter ID Discharge Date Discharge Status Discharge Condition Discharge Reason Percent Goals Met 2025-06-16 00:00:00 2025-06-24 00:00:00 Outpatient GALLO MOSELEY [facility] [id number] 2025-06-24 00:00:00 DISCHARGE TO HOME OR SELF CARE INDEPENDEN T IN THE HOME HH - NON COMPLIANT WITH PLAN OF TREATMENT [id number]
--- OUTSIDE RECORDS SUMMARY | 2025-06-23 19:00 | XMS_ITS | Clinical Summary ---
Author Organization Unknown Care Team Providers Care Risk Management Analyst Name Role Phone STEPHON MODEL BUILDER, ALBERTO Unavailable Unavailable SILVA RN, GALLO Unavailable Unavailable KODY PT, KILEY Unavailable Unavailable ARABELLA DURHAMN, JOSE ENRIQUE Unavailable Unavailable SALAZAR FIELD CREW CHIEF, RAMYA Unavailable Unavailabl e ROSSI OT, ROXANE Unavailable Unavailable ROMEL ANGELIQUE/PAUL, MARIEA Unavailable Unavail able Payers Payer Name Policy Type Policy Number Effective Date [facility]pira tion Date [facility] [id number] Problems Condition Name Condition Details Condition Category [...] 10-30 00:00: 00 11-07 23:59 :00 No [id number] INFECTION Per instruc tions DAILY Per instructio ns DAILY (route: intravenou s) Med Classific ation: Anti-Infe ctive Agents sertraline 100 mg tablet 11-14 00:00: 00 07-05 23:59 :00 No [id number] DEPRESSION 1 tablet DAILY 1 tablet DAILY (route: oral) Med Classific ation: Central Nervous System Agents levothyroxi ne 25 mcg tablet 11-14 00:00: 00 07-05 23:59 :00 No [id number] SUPPLEMENTA L 1 tablet DAILY 1 tablet DAILY (route: oral) Med Classific ation: Endocrine nadolol 40 mg tablet 11-14 00:00: 00 07-05 23:59 :00 No [id number] BP 1 tablet DAILY 1 tablet DAILY (route: oral) Med Classific ation: Cardiovas cular Therapy Agents diltiazem CD 180 mg capsule,ext ended release 24 hr 11-14 00:00: 00 07-05 23:59 :00 No [id number] BP 1 capsule DAILY 1 capsule DAILY (route: oral) Med Classific ation: Cardiovas cular Therapy Agents pantoprazol e 40 mg tablet,matty yed release 11-14 00:00: 00 07-05 23:59 :00 No [id number] STOMACH 1 tablet DAILY 1 tablet DAILY (route: oral) Med Classific ation: Gastroint estinal Therapy Agents famotidine 20 mg tablet 11-14 00:00: 00 07-05 23:59 :00 No [id number] STOMACH Per instruc tions DAILY Per instructio ns DAILY (route: oral) Med Classific ation: Gastroint estinal Therapy Agents sertraline 50 mg tablet 11-14 00:00: 00 07-05 23:59 :00 No [id number] ANXIETY 1 tablet DAILY 1 tablet DAILY (route: oral) Med Classific ation: Central Nervous System Agents gabapentin 100 mg capsule 11-14 00:00: 00 01-09 23:59 :00 No [id number] NERVE PAIN 1 capsule 2 TIMES DAILY 1 capsule 2 TIMES DAILY (route: oral) Med Classific ation: Central Nervous System Agents buspirone 7.5 mg tablet 11-14 00:00: 00 07-05 23:59 :00 No [id number] ANXIETY 1 tablet DAILY 1 tablet DAILY (route: oral) Med Classific ation: Central Nervous System Agents mirtazapine 15 mg tablet 11-14 00:00: 00 07-05 23:59 :00 No [id number] SLEEP 1 tablet 2 TIMES A WEEK 1 tablet 2 TIMES A WEEK (route: oral) Med Classific ation: Central Nervous System Agents cefdinir 300 mg capsule 01-02 00:00: 00 01-03 23:59 :00 No [id number] for cellulits/ infection to leg 1 capsule 2 TIMES DAILY 1 capsule 2 TIMES DAILY (route: oral) Med Classific ation: Anti-Infe ctive Agents Breo Ellipta 100 mcg-25 mcg/dose powder for inhalation 2021-08 00:00: 00 07-05 23:59 :00 No [id number] LUNGS 1 inhalat ion DAILY 1 inhalation DAILY (route: inhalation ) Med Classific ation: Respirato ry Therapy Agents nystatin 100,000 unit/gram topical powder 2023-08 00:00: 00 Yes [id number] UNDER BREAST AND ABDOMEN 1 unit 4 TIMES DAILY 1 unit 4 TIMES DAILY (route: topical) Med Classific ation: Dermatolo gical oxygen gas for inhalation 2023-08 00:00: 00 Yes [id number] SOA 2 Liter O2 - CONTINUOUS 2 Liter O2 - CONTINUOUS (route: inhalation ) Med Classific ation: Medical Supplies and Durable Medical Equipment (DME) bumetanide 1 mg tablet 2023-08 00:00: 00 Yes [id number] WATER PILL 1 tablet DAILY 1 tablet DAILY (route: oral) Med Classific ation: Cardiovas cular Therapy Agents buspirone 7.5 mg tablet 2020-08 00:00: 00 Yes [id number] MOOD 1 tablet 2 TIMES DAILY 1 tablet 2 TIMES DAILY (route: oral) Med Classific ation: Central Nervous System Agents Gemtesa 75 mg tablet 2020-08 00:00: 00 Yes [id number] URINARY 1 tablet DAILY 1 tablet DAILY (route: oral) Med Classific ation: Genitouri nary Therapy levothyroxi ne 25 mcg tablet 2020-08 00:00: 00 Yes [id number] THYROID 1 tablet DAILY 1 tablet DAILY (route: oral) Med Classific ation: Endocrine meloxicam 7.5 mg tablet 2020-08 00:00: 00 02-02 23:59 :00 No [id number] PAIN 1 tablet DAILY 1 tablet DAILY (route: oral) Med Classific ation: Analgesic , Anti-infl ammatory or Antipyret ic mirtazapine 15 mg tablet 2021-08 00:00: 00 Yes [id number] RLS 1 tablet BEDTIME 1 tablet BEDTIME (route: oral) Med Classific ation: Central Nervous System Agents pantoprazol e 40 mg tablet,matty yed release 2020-08 00:00: 00 Yes [id number] GERD 1 tablet BEDTIME 1 tablet BEDTIME (route: oral) Med Classific ation: Gastroint estinal Therapy Agents Pepcid 20 mg tablet 2021-08 00:00: 00 Yes [id number] GERD 1 tablet 2 TIMES DAILY 1 tablet 2 TIMES DAILY (route: oral) Med Classific ation: Gastroint estinal Therapy Agents sertraline 150 mg capsule 2020-08 00:00: 00 Yes [id number] MOOD 1 capsule DAILY 1 capsule DAILY (route: oral) Med Classific ation: Central Nervous System Agents valsartan 160 mg tablet 2021-08 00:00: 00 02-02 23:59 :00 No [id number] HEART 1 tablet DAILY 1 tablet DAILY (route: oral) Med Classific ation: Cardiovas cular Therapy Agents cyclobenzap rine 10 mg tablet 09-10 00:00: 00 02-02 23:59 :00 No [id number] PAIN 1 tablet 3 TIMES DAILY 1 tablet 3 TIMES DAILY (route: oral) Med Classific ation: Locomotor System Aspirin Childrens 81 mg chewable tablet 02-02 00:00: 00 Yes [id number] HEART 1 tablet DAILY 1 tablet DAILY (route: oral) Med Classific ation: Hematolog ical Agents atorvastati n 20 mg tablet 02-02 00:00: 00 Yes [id number] CHOLESTEROL 1 tablet DAILY 1 tablet DAILY (route: oral) Med Classific ation: Cardiovas cular Therapy Agents cetirizine 10 mg tablet 02-02 00:00: 00 Yes [id number] ALLERGIES 1 tablet BEDTIME 1 tablet BEDTIME (route: oral) Med Classific ation: Respirato ry Therapy Agents Eliquis 5 mg tablet 02-02 00:00: 00 Yes [id number] HEART 1 tablet 2 TIMES DAILY 1 tablet 2 TIMES DAILY (route: oral) Med Classific ation: Hematolog ical Agents Jardiance 10 mg tablet 02-02 00:00: 00 Yes [id number] DIABETES 1 tablet DAILY 1 tablet DAILY (route: oral) Med Classific ation: Endocrine metoprolol succinate ER 25 mg tablet,exte nded release 24 hr 02-02 00:00: 00 Yes [id number] HEART 1 tablet DAILY 1 tablet DAILY [...] ALBERTO SZYMANSKI RN TO OBSERVE AND ASSESS, BALLER TENDER/BANQUET LINE COOK TO OBSERVE FOR RISK FOR FALLS AND INSTRUCT IN FALL PREVENTION, HOME SAFETY, MEDICATION MANAGEMENT, INFECTION PREVENTION, AND NUTRITION MANAGEMENT. RN/BALLER TENDER/BANQUET LINE COOK NURSE MAY PERFORM O2 SATURATION LEVEL ON ADMISSION AND PRN FOR RN TO ASSESS/BALLER TENDER TO OBSERVE PATIENT, WITH NOTIFICATION TO THE PHYSICIAN IF SATURATION IS 90% IN THE ABSENCE OF MORE SPECIFIC PARAMETERS FROM THE PHYSICIAN. AGENCY MAY PERFORM A RESUMPTION OF CARE VISIT FOLLOWING ANY HOSPITAL ADMISSION. RN/BALLER TENDER/BANQUET LINE COOK TO MONITOR CO-MORBID CONDITIONS LISTED ON THE PLAN OF CARE AND ANY NEW CONDITIONS THAT PRESENT THEMSELVES DURING THIS EPISODE TO IDENTIFY CHANGES AND INTERVENE TO MINIMIZE COMPLICATIONS. [code = RN TO OBSERVE, ASSESS, EVALUATE, AND DEVELOP AN INDIVIDUALIZED PLAN OF CARE. AGENCY MAY ACCEPT ORDERS FROM CONSULTING PHYSICIANS ALBERTO SZYMANSKI RN TO OBSERVE AND ASSESS, BALLER TENDER/BANQUET LINE COOK TO OBSERVE FOR RISK FOR FALLS AND INSTRUCT IN FALL PREVENTION, HOME SAFETY, MEDICATION MANAGEMENT, INFECTION PREVENTION, AND NUTRITION MANAGEMENT. RN/BALLER TENDER/BANQUET LINE COOK NURSE MAY PERFORM O2 SATURATION LEVEL ON ADMISSION AND PRN FOR RN TO ASSESS/BALLER TENDER TO OBSERVE PATIENT, WITH NOTIFICATION TO THE PHYSICIAN IF SATURATION IS 90% IN THE ABSENCE OF MORE SPECIFIC PARAMETERS FROM THE PHYSICIAN. AGENCY MAY PERFORM A RESUMPTION OF CARE VISIT FOLLOWING ANY HOSPITAL ADMISSION. RN/BALLER TENDER/BANQUET LINE COOK TO MONITOR CO-MORBID CONDITIONS LISTED ON THE PLAN OF CARE AND ANY NEW CONDITIONS THAT PRESENT THEMSELVES DURING THIS EPISODE TO IDENTIFY CHANGES AND INTERVENE TO MINIMIZE COMPLICATIONS.] Future Scheduled Test MEDICATION MANAGEMENT; RN/BALLER TENDER/BANQUET LINE COOK TO REVIEW MEDICATIONS FOR INTERACTIONS, EFFECTIVENESS OF DRUG THERAPY, AND SIGNS/SYMPTOMS OF ADVERSE REACTIONS. MAY INSTRUCT AND REINFORCE MEDICATION TEACHING RELATED TO THE USE OF MEDICATIONS, DOSAGE, FREQUENCY, PURPOSE, SIDE EFFECTS, AND TO REPORT COMPLICATIONS. [code = MEDICATION MANAGEMENT; RN/BALLER TENDER/BANQUET LINE COOK TO REVIEW MEDICATIONS FOR INTERACTIONS, EFFECTIVENESS OF DRUG THERAPY, AND SIGNS/SYMPTOMS OF ADVERSE REACTIONS. MAY INSTRUCT AND REINFORCE MEDICATION TEACHING RELATED TO THE USE OF MEDICATIONS, DOSAGE, FREQUENCY, PURPOSE, SIDE EFFECTS, AND TO REPORT COMPLICATIONS.] Future Scheduled Test RESPIRATOR Y SYSTEM MANAGEMENT; RN TO ASSESS AND TEACH, BALLER TENDER/BANQUET LINE COOK TO OBSERVE AND TEACH RELATED TO ALTERED RESPIRATORY STATUS TO MINIMIZE COMPLICATIONS AND REDUCE HOSPITALIZATION. [code = RESPIRATORY SYSTEM MANAGEMENT; RN TO ASSESS AND TEACH, BALLER TENDER/BANQUET LINE COOK TO OBSERVE AND TEACH RELATED TO ALTERED RESPIRATORY STATUS TO MINIMIZE COMPLICATIONS AND REDUCE HOSPITALIZATION.] Future Scheduled Test COPD MANAG EMENT; RN TO ASSESS AND TEACH, BALLER TENDER/BANQUET LINE COOK TO OBSERVE AND TEACH SIGNS/SYMPTOMS OF COPD EXACERBATION AND PROVIDE EARLY INTERVENTIONS TO MINIMIZE RISK OF HOSPITALIZATION. RN/BALLER TENDER/BANQUET LINE COOK TO INSTRUCT ON SELF-CARE MANAGEMENT INCLUDING BREATHING TECHNIQUES, AIRWAY CLEARANCE, AND PROPER USE OF COPD MEDICATIONS. RN TO ASSESS AND TEACH, BALLER TENDER/BANQUET LINE COOK TO OBSERVE AND TEACH PATIENT/CAREGIVER ABILITY TO MONITOR AND RECORD VITAL SIGNS INCLUDING PULSE OXIMETRY AND BLOOD PRESSURE. PULSE OXIMETER AND BP MONITOR TO BE PROVIDED IF NEEDED [code = COPD MANAGEMENT; RN TO ASSESS AND TEACH, BALLER TENDER/BANQUET LINE COOK TO OBSERVE AND TEACH SIGNS/SYMPTOMS OF COPD EXACERBATION AND PROVIDE EARLY INTERVENTIONS TO MINIMIZE RISK OF HOSPITALIZATION. RN/BALLER TENDER/BANQUET LINE COOK TO INSTRUCT ON SELF-CARE MANAGEMENT INCLUDING BREATHING TECHNIQUES, AIRWAY CLEARANCE, AND PROPER USE OF COPD MEDICATIONS. RN TO ASSESS AND TEACH, BALLER TENDER/BANQUET LINE COOK TO OBSERVE AND TEACH PATIENT/CAREGIVER ABILITY TO MONITOR AND RECORD VITAL SIGNS INCLUDING PULSE OXIMETRY AND BLOOD PRESSURE. PULSE OXIMETER AND BP MONITOR TO BE PROVIDED IF NEEDED] Future Scheduled Test OXYGEN THE RAPY; RN/BALLER TENDER/BANQUET LINE COOK TO INSTRUCT ON OXYGEN MANAGEMENT INCLUDING: ADMINISTRATION AT 2L/MIN VIA CONTINUOUS/PRN FOR , CARE OF EQUIPMENT AND SAFETY. [code = OXYGEN THERAPY; RN/BALLER TENDER/BANQUET LINE COOK TO INSTRUCT ON OXYGEN MANAGEMENT INCLUDING: ADMINISTRATION [...] Scheduled Test PRN VISITS ; NUMBER OF RN/BALLER TENDER/BANQUET LINE COOK VISITS: 2 RN/BALLER TENDER/BANQUET LINE COOK TO PERFORM: WOUND EVALUATE FOR THE FOLLOWING REASONS: OBSERVATION [code = PRN VISITS; NUMBER OF RN/BALLER TENDER/BANQUET LINE COOK VISITS: 2 RN/BALLER TENDER/BANQUET LINE COOK TO PERFORM: WOUND EVALUATE FOR THE FOLLOWING REASONS: OBSERVATION] Future Scheduled Test RN/BALLER TENDER/BANQUET LINE COOK TO PERFORM/TEACH ARTERIAL ULCER CARE TO RIGHT AND LEFT LEGS IRRIGATE/CLEANSE WITH WOUND CLEANZER APPLY CALCIUM SILVER ALGINATE SECURE WITH 4XR BORDER GAUZE CHANGE DRESSING EVERY 3 DAYS A WEEK FOR TWO WEEKS THEN 2 DAYS A WEEK TILL EOE DATE AND CHANGE PRN FOR DISLODGED DRESSING OR SOILING BY CAREGIVER AND PT IN BETWEEN NURSING VISITS [code = RN/BALLER TENDER/BANQUET LINE COOK TO PERFORM/TEACH ARTERIAL ULCER CARE TO RIGHT [...] End Date/Time Encounter Type Admission Type Attending [facility] Care Department Encounter ID Discharge Date Discharge Status Discharge Condition Discharge Reason Percent Goals Met 2025-06-16 00:00:00 2025-06-24 00:00:00 Outpatient G[facility] [id number] 2025-06-24 00:00:00 DISCHARGE TO HOME OR SELF CARE INDEPENDEN T IN THE HOME HH - NON COMPLIANT WITH PLAN OF TREATMENT [id number]
--- OUTSIDE RECORDS SUMMARY | 2025-06-23 19:00 | XMS_ITS | Clinical Summary ---
Author Organization Unknown Care Team Providers Care Healthcare Technician Name Role Phone STEPHON BOOM CONVEYOR OPERATOR, ALBERTO Unavailable Unavailable SILVA RN, GALLO Unavailable Unavailable KODY PT, KILEY Unavailable Unavailable ARABELLA DURHAMN, JOSE ENRIQUE Unavailable Unavailable SALAZAR DOCTOR ASSISTANT, RAMYA Unavailable Unavailabl e ROSSI OT, ROXANE Unavailable Unavailable ROMEL ANGELIQUE/PAUL, MARIEA Unavailable Unavail able Payers Payer Name Policy Type Policy Number Effective Date Expira tion Date [facility] [id number] Problems Condition Name Condition Details Condition Category [...] 10-30 00:00: 00 11-07 23:59 :00 No [id number] INFECTION Per instruc tions DAILY Per instructio ns DAILY (route: intravenou s) Med Classific ation: Anti-Infe ctive Agents sertraline 100 mg tablet 11-14 00:00: 00 07-05 23:59 :00 No [id number] DEPRESSION 1 tablet DAILY 1 tablet DAILY (route: oral) Med Classific ation: Central Nervous System Agents levothyroxi ne 25 mcg tablet 11-14 00:00: 00 07-05 23:59 :00 No [id number] SUPPLEMENTA L 1 tablet DAILY 1 tablet DAILY (route: oral) Med Classific ation: Endocrine nadolol 40 mg tablet 11-14 00:00: 00 07-05 23:59 :00 No [id number] BP 1 tablet DAILY 1 tablet DAILY (route: oral) Med Classific ation: Cardiovas cular Therapy Agents diltiazem CD 180 mg capsule,ext ended release 24 hr 11-14 00:00: 00 07-05 23:59 :00 No [id number] BP 1 capsule DAILY 1 capsule DAILY (route: oral) Med Classific ation: Cardiovas cular Therapy Agents pantoprazol e 40 mg tablet,matty yed release 11-14 00:00: 00 07-05 23:59 :00 No [id number] STOMACH 1 tablet DAILY 1 tablet DAILY (route: oral) Med Classific ation: Gastroint estinal Therapy Agents famotidine 20 mg tablet 11-14 00:00: 00 07-05 23:59 :00 No [id number] STOMACH Per instruc tions DAILY Per instructio ns DAILY (route: oral) Med Classific ation: Gastroint estinal Therapy Agents sertraline 50 mg tablet 11-14 00:00: 00 07-05 23:59 :00 No [id number] ANXIETY 1 tablet DAILY 1 tablet DAILY (route: oral) Med Classific ation: Central Nervous System Agents gabapentin 100 mg capsule 11-14 00:00: 00 01-09 23:59 :00 No [id number] NERVE PAIN 1 capsule 2 TIMES DAILY 1 capsule 2 TIMES DAILY (route: oral) Med Classific ation: Central Nervous System Agents buspirone 7.5 mg tablet 11-14 00:00: 00 07-05 23:59 :00 No [id number] ANXIETY 1 tablet DAILY 1 tablet DAILY (route: oral) Med Classific ation: Central Nervous System Agents mirtazapine 15 mg tablet 11-14 00:00: 00 07-05 23:59 :00 No [id number] SLEEP 1 tablet 2 TIMES A WEEK 1 tablet 2 TIMES A WEEK (route: oral) Med Classific ation: Central Nervous System Agents cefdinir 300 mg capsule 01-02 00:00: 00 01-03 23:59 :00 No [id number] for cellulits/ infection to leg 1 capsule 2 TIMES DAILY 1 capsule 2 TIMES DAILY (route: oral) Med Classific ation: Anti-Infe ctive Agents Breo Ellipta 100 mcg-25 mcg/dose powder for inhalation 2021-08 00:00: 00 07-05 23:59 :00 No [id number] LUNGS 1 inhalat ion DAILY 1 inhalation DAILY (route: inhalation ) Med Classific ation: Respirato ry Therapy Agents nystatin 100,000 unit/gram topical powder 2023-08 00:00: 00 Yes [id number] UNDER BREAST AND ABDOMEN 1 unit 4 TIMES DAILY 1 unit 4 TIMES DAILY (route: topical) Med Classific ation: Dermatolo gical oxygen gas for inhalation 2023-08 00:00: 00 Yes [id number] SOA 2 Liter O2 - CONTINUOUS 2 Liter O2 - CONTINUOUS (route: inhalation ) Med Classific ation: Medical Supplies and Durable Medical Equipment (DME) bumetanide 1 mg tablet 2023-08 00:00: 00 Yes [id number] WATER PILL 1 tablet DAILY 1 tablet DAILY (route: oral) Med Classific ation: Cardiovas cular Therapy Agents buspirone 7.5 mg tablet 2020-08 00:00: 00 Yes [id number] MOOD 1 tablet 2 TIMES DAILY 1 tablet 2 TIMES DAILY (route: oral) Med Classific ation: Central Nervous System Agents Gemtesa 75 mg tablet 2020-08 00:00: 00 Yes [id number] URINARY 1 tablet DAILY 1 tablet DAILY (route: oral) Med Classific ation: Genitouri nary Therapy levothyroxi ne 25 mcg tablet 2020-08 00:00: 00 Yes [id number] THYROID 1 tablet DAILY 1 tablet DAILY (route: oral) Med Classific ation: Endocrine meloxicam 7.5 mg tablet 2020-08 00:00: 00 02-02 23:59 :00 No [id number] PAIN 1 tablet DAILY 1 tablet DAILY (route: oral) Med Classific ation: Analgesic , Anti-infl ammatory or Antipyret ic mirtazapine 15 mg tablet 2021-08 00:00: 00 Yes [id number] RLS 1 tablet BEDTIME 1 tablet BEDTIME (route: oral) Med Classific ation: Central Nervous System Agents pantoprazol e 40 mg tablet,matty yed release 2020-08 00:00: 00 Yes [id number] GERD 1 tablet BEDTIME 1 tablet BEDTIME (route: oral) Med Classific ation: Gastroint estinal Therapy Agents Pepcid 20 mg tablet 2021-08 00:00: 00 Yes [id number] GERD 1 tablet 2 TIMES DAILY 1 tablet 2 TIMES DAILY (route: oral) Med Classific ation: Gastroint estinal Therapy Agents sertraline 150 mg capsule 2020-08 00:00: 00 Yes [id number] MOOD 1 capsule DAILY 1 capsule DAILY (route: oral) Med Classific ation: Central Nervous System Agents valsartan 160 mg tablet 2021-08 00:00: 00 02-02 23:59 :00 No [id number] HEART 1 tablet DAILY 1 tablet DAILY (route: oral) Med Classific ation: Cardiovas cular Therapy Agents cyclobenzap rine 10 mg tablet 09-10 00:00: 00 02-02 23:59 :00 No [id number] PAIN 1 tablet 3 TIMES DAILY 1 tablet 3 TIMES DAILY (route: oral) Med Classific ation: Locomotor System Aspirin Childrens 81 mg chewable tablet 02-02 00:00: 00 Yes [id number] HEART 1 tablet DAILY 1 tablet DAILY (route: oral) Med Classific ation: Hematolog ical Agents atorvastati n 20 mg tablet 02-02 00:00: 00 Yes [id number] CHOLESTEROL 1 tablet DAILY 1 tablet DAILY (route: oral) Med Classific ation: Cardiovas cular Therapy Agents cetirizine 10 mg tablet 02-02 00:00: 00 Yes [id number] ALLERGIES 1 tablet BEDTIME 1 tablet BEDTIME (route: oral) Med Classific ation: Respirato ry Therapy Agents Eliquis 5 mg tablet 02-02 00:00: 00 Yes [id number] HEART 1 tablet 2 TIMES DAILY 1 tablet 2 TIMES DAILY (route: oral) Med Classific ation: Hematolog ical Agents Jardiance 10 mg tablet 02-02 00:00: 00 Yes [id number] DIABETES 1 tablet DAILY 1 tablet DAILY (route: oral) Med Classific ation: Endocrine metoprolol succinate ER 25 mg tablet,exte nded release 24 hr 02-02 00:00: 00 Yes [id number] HEART 1 tablet DAILY 1 tablet DAILY [...] ALBERTO SZYMANSKI RN TO OBSERVE AND ASSESS, CEMENT FINISHER HELPER/ELECTRICAL PROSPECTING OPERATOR TO OBSERVE FOR RISK FOR FALLS AND INSTRUCT IN FALL PREVENTION, HOME SAFETY, MEDICATION MANAGEMENT, INFECTION PREVENTION, AND NUTRITION MANAGEMENT. RN/CEMENT FINISHER HELPER/ELECTRICAL PROSPECTING OPERATOR NURSE MAY PERFORM O2 SATURATION LEVEL ON ADMISSION AND PRN FOR RN TO ASSESS/CEMENT FINISHER HELPER TO OBSERVE PATIENT, WITH NOTIFICATION TO THE PHYSICIAN IF SATURATION IS 90% IN THE ABSENCE OF MORE SPECIFIC PARAMETERS FROM THE PHYSICIAN. AGENCY MAY PERFORM A RESUMPTION OF CARE VISIT FOLLOWING ANY HOSPITAL ADMISSION. RN/CEMENT FINISHER HELPER/ELECTRICAL PROSPECTING OPERATOR TO MONITOR CO-MORBID CONDITIONS LISTED ON THE PLAN OF CARE AND ANY NEW CONDITIONS THAT PRESENT THEMSELVES DURING THIS EPISODE TO IDENTIFY CHANGES AND INTERVENE TO MINIMIZE COMPLICATIONS. [code = RN TO OBSERVE, ASSESS, EVALUATE, AND DEVELOP AN INDIVIDUALIZED PLAN OF CARE. AGENCY MAY ACCEPT ORDERS FROM CONSULTING PHYSICIANS ALBERTO SZYMANSKI RN TO OBSERVE AND ASSESS, CEMENT FINISHER HELPER/ELECTRICAL PROSPECTING OPERATOR TO OBSERVE FOR RISK FOR FALLS AND INSTRUCT IN FALL PREVENTION, HOME SAFETY, MEDICATION MANAGEMENT, INFECTION PREVENTION, AND NUTRITION MANAGEMENT. RN/CEMENT FINISHER HELPER/ELECTRICAL PROSPECTING OPERATOR NURSE MAY PERFORM O2 SATURATION LEVEL ON ADMISSION AND PRN FOR RN TO ASSESS/CEMENT FINISHER HELPER TO OBSERVE PATIENT, WITH NOTIFICATION TO THE PHYSICIAN IF SATURATION IS 90% IN THE ABSENCE OF MORE SPECIFIC PARAMETERS FROM THE PHYSICIAN. AGENCY MAY PERFORM A RESUMPTION OF CARE VISIT FOLLOWING ANY HOSPITAL ADMISSION. RN/CEMENT FINISHER HELPER/ELECTRICAL PROSPECTING OPERATOR TO MONITOR CO-MORBID CONDITIONS LISTED ON THE PLAN OF CARE AND ANY NEW CONDITIONS THAT PRESENT THEMSELVES DURING THIS EPISODE TO IDENTIFY CHANGES AND INTERVENE TO MINIMIZE COMPLICATIONS.] Future Scheduled Test MEDICATION MANAGEMENT; RN/CEMENT FINISHER HELPER/ELECTRICAL PROSPECTING OPERATOR TO REVIEW MEDICATIONS FOR INTERACTIONS, EFFECTIVENESS OF DRUG THERAPY, AND SIGNS/SYMPTOMS OF ADVERSE REACTIONS. MAY INSTRUCT AND REINFORCE MEDICATION TEACHING RELATED TO THE USE OF MEDICATIONS, DOSAGE, FREQUENCY, PURPOSE, SIDE EFFECTS, AND TO REPORT COMPLICATIONS. [code = MEDICATION MANAGEMENT; RN/CEMENT FINISHER HELPER/ELECTRICAL PROSPECTING OPERATOR TO REVIEW MEDICATIONS FOR INTERACTIONS, EFFECTIVENESS OF DRUG THERAPY, AND SIGNS/SYMPTOMS OF ADVERSE REACTIONS. MAY INSTRUCT AND REINFORCE MEDICATION TEACHING RELATED TO THE USE OF MEDICATIONS, DOSAGE, FREQUENCY, PURPOSE, SIDE EFFECTS, AND TO REPORT COMPLICATIONS.] Future Scheduled Test RESPIRATOR Y SYSTEM MANAGEMENT; RN TO ASSESS AND TEACH, CEMENT FINISHER HELPER/ELECTRICAL PROSPECTING OPERATOR TO OBSERVE AND TEACH RELATED TO ALTERED RESPIRATORY STATUS TO MINIMIZE COMPLICATIONS AND REDUCE HOSPITALIZATION. [code = RESPIRATORY SYSTEM MANAGEMENT; RN TO ASSESS AND TEACH, CEMENT FINISHER HELPER/ELECTRICAL PROSPECTING OPERATOR TO OBSERVE AND TEACH RELATED TO ALTERED RESPIRATORY STATUS TO MINIMIZE COMPLICATIONS AND REDUCE HOSPITALIZATION.] Future Scheduled Test COPD MANAG EMENT; RN TO ASSESS AND TEACH, CEMENT FINISHER HELPER/ELECTRICAL PROSPECTING OPERATOR TO OBSERVE AND TEACH SIGNS/SYMPTOMS OF COPD EXACERBATION AND PROVIDE EARLY INTERVENTIONS TO MINIMIZE RISK OF HOSPITALIZATION. RN/CEMENT FINISHER HELPER/ELECTRICAL PROSPECTING OPERATOR TO INSTRUCT ON SELF-CARE MANAGEMENT INCLUDING BREATHING TECHNIQUES, AIRWAY CLEARANCE, AND PROPER USE OF COPD MEDICATIONS. RN TO ASSESS AND TEACH, CEMENT FINISHER HELPER/ELECTRICAL PROSPECTING OPERATOR TO OBSERVE AND TEACH PATIENT/CAREGIVER ABILITY TO MONITOR AND RECORD VITAL SIGNS INCLUDING PULSE OXIMETRY AND BLOOD PRESSURE. PULSE OXIMETER AND BP MONITOR TO BE PROVIDED IF NEEDED [code = COPD MANAGEMENT; RN TO ASSESS AND TEACH, CEMENT FINISHER HELPER/ELECTRICAL PROSPECTING OPERATOR TO OBSERVE AND TEACH SIGNS/SYMPTOMS OF COPD EXACERBATION AND PROVIDE EARLY INTERVENTIONS TO MINIMIZE RISK OF HOSPITALIZATION. RN/CEMENT FINISHER HELPER/ELECTRICAL PROSPECTING OPERATOR TO INSTRUCT ON SELF-CARE MANAGEMENT INCLUDING BREATHING TECHNIQUES, AIRWAY CLEARANCE, AND PROPER USE OF COPD MEDICATIONS. RN TO ASSESS AND TEACH, CEMENT FINISHER HELPER/ELECTRICAL PROSPECTING OPERATOR TO OBSERVE AND TEACH PATIENT/CAREGIVER ABILITY TO MONITOR AND RECORD VITAL SIGNS INCLUDING PULSE OXIMETRY AND BLOOD PRESSURE. PULSE OXIMETER AND BP MONITOR TO BE PROVIDED IF NEEDED] Future Scheduled Test OXYGEN THE RAPY; RN/CEMENT FINISHER HELPER/ELECTRICAL PROSPECTING OPERATOR TO INSTRUCT ON OXYGEN MANAGEMENT INCLUDING: ADMINISTRATION AT 2L/MIN VIA CONTINUOUS/PRN FOR , CARE OF EQUIPMENT AND SAFETY. [code = OXYGEN THERAPY; RN/CEMENT FINISHER HELPER/ELECTRICAL PROSPECTING OPERATOR TO INSTRUCT ON OXYGEN MANAGEMENT INCLUDING: ADMINISTRATION [...] Scheduled Test PRN VISITS ; NUMBER OF RN/CEMENT FINISHER HELPER/ELECTRICAL PROSPECTING OPERATOR VISITS: 2 RN/CEMENT FINISHER HELPER/ELECTRICAL PROSPECTING OPERATOR TO PERFORM: WOUND EVALUATE FOR THE FOLLOWING REASONS: OBSERVATION [code = PRN VISITS; NUMBER OF RN/CEMENT FINISHER HELPER/ELECTRICAL PROSPECTING OPERATOR VISITS: 2 RN/CEMENT FINISHER HELPER/ELECTRICAL PROSPECTING OPERATOR TO PERFORM: WOUND EVALUATE FOR THE FOLLOWING REASONS: OBSERVATION] Future Scheduled Test RN/CEMENT FINISHER HELPER/ELECTRICAL PROSPECTING OPERATOR TO PERFORM/TEACH ARTERIAL ULCER CARE TO RIGHT AND LEFT LEGS IRRIGATE/CLEANSE WITH WOUND CLEANZER APPLY CALCIUM SILVER ALGINATE SECURE WITH 4XR BORDER GAUZE CHANGE DRESSING EVERY 3 DAYS A WEEK FOR TWO WEEKS THEN 2 DAYS A WEEK TILL EOE DATE AND CHANGE PRN FOR DISLODGED DRESSING OR SOILING BY CAREGIVER AND PT IN BETWEEN NURSING VISITS [code = RN/CEMENT FINISHER HELPER/ELECTRICAL PROSPECTING OPERATOR TO PERFORM/TEACH ARTERIAL ULCER CARE TO RIGHT [...] Date/Time Encounter Type Admission Type Attending [facility] Care Department Encounter ID Discharge Date Discharge Status Discharge Condition Discharge Reason Percent Goals Met 2025-06-16 00:00:00 2025-06-24 00:00:00 Outpatient [facility] [id number] 2025-06-24 00:00:00 DISCHARGE TO HOME OR SELF CARE INDEPENDEN T IN THE HOME HH - NON COMPLIANT WITH PLAN OF TREATMENT [id number]
--- OUTSIDE RECORDS SUMMARY | 2025-06-23 19:00 | XMS_ITS | Clinical Summary ---
Author Organization Unknown Care Team Providers Care Cash Register Mechanic Name Role Phone STEPHON FISH CLEANER, ALBERTO Unavailable Unavailable SILVA RN, GALLO Unavailable Unavailable KODY PT, KILEY Unavailable Unavailable ARABELLA DURHAMN, JOSE ENRIQUE Unavailable Unavailable SALAZAR [employer] PIPE MANUFACTURING SUPERVISOR, RAMYA Unavailable Unavailabl e ROSSI OT, ROXANE Unavailable Unavailable ROMEL ANGELIQUE/PAUL, MARIEA Unavailable Unavail able Payers Payer Name Policy Type Policy Number Effective Date Expira [facility]ion Date [facility] [id number] Problems Condition Name Condition Details Condition Category [...] 10-30 00:00: 00 11-07 23:59 :00 No [id number] INFECTION Per instruc tions DAILY Per instructio ns DAILY (route: intravenou s) Med Classific ation: Anti-Infe ctive Agents sertraline 100 mg tablet 11-14 00:00: 00 07-05 23:59 :00 No [id number] DEPRESSION 1 tablet DAILY 1 tablet DAILY (route: oral) Med Classific ation: Central Nervous System Agents levothyroxi ne 25 mcg tablet 11-14 00:00: 00 07-05 23:59 :00 No [id number] SUPPLEMENTA L 1 tablet DAILY 1 tablet DAILY (route: oral) Med Classific ation: Endocrine nadolol 40 mg tablet 11-14 00:00: 00 07-05 23:59 :00 No [id number] BP 1 tablet DAILY 1 tablet DAILY (route: oral) Med Classific ation: Cardiovas cular Therapy Agents diltiazem CD 180 mg capsule,ext ended release 24 hr 11-14 00:00: 00 07-05 23:59 :00 No [id number] BP 1 capsule DAILY 1 capsule DAILY (route: oral) Med Classific ation: Cardiovas cular Therapy Agents pantoprazol e 40 mg tablet,matty yed release 11-14 00:00: 00 07-05 23:59 :00 No [id number] STOMACH 1 tablet DAILY 1 tablet DAILY (route: oral) Med Classific ation: Gastroint estinal Therapy Agents famotidine 20 mg tablet 11-14 00:00: 00 07-05 23:59 :00 No [id number] STOMACH Per instruc tions DAILY Per instructio ns DAILY (route: oral) Med Classific ation: Gastroint estinal Therapy Agents sertraline 50 mg tablet 11-14 00:00: 00 07-05 23:59 :00 No [id number] ANXIETY 1 tablet DAILY 1 tablet DAILY (route: oral) Med Classific ation: Central Nervous System Agents gabapentin 100 mg capsule 11-14 00:00: 00 01-09 23:59 :00 No [id number] NERVE PAIN 1 capsule 2 TIMES DAILY 1 capsule 2 TIMES DAILY (route: oral) Med Classific ation: Central Nervous System Agents buspirone 7.5 mg tablet 11-14 00:00: 00 07-05 23:59 :00 No [id number] ANXIETY 1 tablet DAILY 1 tablet DAILY (route: oral) Med Classific ation: Central Nervous System Agents mirtazapine 15 mg tablet 11-14 00:00: 00 07-05 23:59 :00 No [id number] SLEEP 1 tablet 2 TIMES A WEEK 1 tablet 2 TIMES A WEEK (route: oral) Med Classific ation: Central Nervous System Agents cefdinir 300 mg capsule 01-02 00:00: 00 01-03 23:59 :00 No [id number] for cellulits/ infection to leg 1 capsule 2 TIMES DAILY 1 capsule 2 TIMES DAILY (route: oral) Med Classific ation: Anti-Infe ctive Agents Breo Ellipta 100 mcg-25 mcg/dose powder for inhalation 2021-08 00:00: 00 07-05 23:59 :00 No [id number] LUNGS 1 inhalat ion DAILY 1 inhalation DAILY (route: inhalation ) Med Classific ation: Respirato ry Therapy Agents nystatin 100,000 unit/gram topical powder 2023-08 00:00: 00 Yes [id number] UNDER BREAST AND ABDOMEN 1 unit 4 TIMES DAILY 1 unit 4 TIMES DAILY (route: topical) Med Classific ation: Dermatolo gical oxygen gas for inhalation 2023-08 00:00: 00 Yes [id number] SOA 2 Liter O2 - CONTINUOUS 2 Liter O2 - CONTINUOUS (route: inhalation ) Med Classific ation: Medical Supplies and Durable Medical Equipment (DME) bumetanide 1 mg tablet 2023-08 00:00: 00 Yes [id number] WATER PILL 1 tablet DAILY 1 tablet DAILY (route: oral) Med Classific ation: Cardiovas cular Therapy Agents buspirone 7.5 mg tablet 2020-08 00:00: 00 Yes [id number] MOOD 1 tablet 2 TIMES DAILY 1 tablet 2 TIMES DAILY (route: oral) Med Classific ation: Central Nervous System Agents Gemtesa 75 mg tablet 2020-08 00:00: 00 Yes [id number] URINARY 1 tablet DAILY 1 tablet DAILY (route: oral) Med Classific ation: Genitouri nary Therapy levothyroxi ne 25 mcg tablet 2020-08 00:00: 00 Yes [id number] THYROID 1 tablet DAILY 1 tablet DAILY (route: oral) Med Classific ation: Endocrine meloxicam 7.5 mg tablet 2020-08 00:00: 00 02-02 23:59 :00 No [id number] PAIN 1 tablet DAILY 1 tablet DAILY (route: oral) Med Classific ation: Analgesic , Anti-infl ammatory or Antipyret ic mirtazapine 15 mg tablet 2021-08 00:00: 00 Yes [id number] RLS 1 tablet BEDTIME 1 tablet BEDTIME (route: oral) Med Classific ation: Central Nervous System Agents pantoprazol e 40 mg tablet,matty yed release 2020-08 00:00: 00 Yes [id number] GERD 1 tablet BEDTIME 1 tablet BEDTIME (route: oral) Med Classific ation: Gastroint estinal Therapy Agents Pepcid 20 mg tablet 2021-08 00:00: 00 Yes [id number] GERD 1 tablet 2 TIMES DAILY 1 tablet 2 TIMES DAILY (route: oral) Med Classific ation: Gastroint estinal Therapy Agents sertraline 150 mg capsule 2020-08 00:00: 00 Yes [id number] MOOD 1 capsule DAILY 1 capsule DAILY (route: oral) Med Classific ation: Central Nervous System Agents valsartan 160 mg tablet 2021-08 00:00: 00 02-02 23:59 :00 No [id number] HEART 1 tablet DAILY 1 tablet DAILY (route: oral) Med Classific ation: Cardiovas cular Therapy Agents cyclobenzap rine 10 mg tablet 09-10 00:00: 00 02-02 23:59 :00 No [id number] PAIN 1 tablet 3 TIMES DAILY 1 tablet 3 TIMES DAILY (route: oral) Med Classific ation: Locomotor System Aspirin Childrens 81 mg chewable tablet 02-02 00:00: 00 Yes [id number] HEART 1 tablet DAILY 1 tablet DAILY (route: oral) Med Classific ation: Hematolog ical Agents atorvastati n 20 mg tablet 02-02 00:00: 00 Yes [id number] CHOLESTEROL 1 tablet DAILY 1 tablet DAILY (route: oral) Med Classific ation: Cardiovas cular Therapy Agents cetirizine 10 mg tablet 02-02 00:00: 00 Yes [id number] ALLERGIES 1 tablet BEDTIME 1 tablet BEDTIME (route: oral) Med Classific ation: Respirato ry Therapy Agents Eliquis 5 mg tablet 02-02 00:00: 00 Yes [id number] HEART 1 tablet 2 TIMES DAILY 1 tablet 2 TIMES DAILY (route: oral) Med Classific ation: Hematolog ical Agents Jardiance 10 mg tablet 02-02 00:00: 00 Yes [id number] DIABETES 1 tablet DAILY 1 tablet DAILY (route: oral) Med Classific ation: Endocrine metoprolol succinate ER 25 mg tablet,exte nded release 24 hr 02-02 00:00: 00 Yes [id number] HEART 1 tablet DAILY 1 tablet DAILY [...] ALBERTO SZYMANSKI RN TO OBSERVE AND ASSESS, ORANGE PEEL OPERATOR/SENIOR SOFTWARE QUALITY ANALYST TO OBSERVE FOR RISK FOR FALLS AND INSTRUCT IN FALL PREVENTION, HOME SAFETY, MEDICATION MANAGEMENT, INFECTION PREVENTION, AND NUTRITION MANAGEMENT. RN/ORANGE PEEL OPERATOR/SENIOR SOFTWARE QUALITY ANALYST NURSE MAY PERFORM O2 SATURATION LEVEL ON ADMISSION AND PRN FOR RN TO ASSESS/ORANGE PEEL OPERATOR TO OBSERVE PATIENT, WITH NOTIFICATION TO THE PHYSICIAN IF SATURATION IS 90% IN THE ABSENCE OF MORE SPECIFIC PARAMETERS FROM THE PHYSICIAN. AGENCY MAY PERFORM A RESUMPTION OF CARE VISIT FOLLOWING ANY HOSPITAL ADMISSION. RN/ORANGE PEEL OPERATOR/SENIOR SOFTWARE QUALITY ANALYST TO MONITOR CO-MORBID CONDITIONS LISTED ON THE PLAN OF CARE AND ANY NEW CONDITIONS THAT PRESENT THEMSELVES DURING THIS EPISODE TO IDENTIFY CHANGES AND INTERVENE TO MINIMIZE COMPLICATIONS. [code = RN TO OBSERVE, ASSESS, EVALUATE, AND DEVELOP AN INDIVIDUALIZED PLAN OF CARE. AGENCY MAY ACCEPT ORDERS FROM CONSULTING PHYSICIANS ALBERTO SZYMANSKI RN TO OBSERVE AND ASSESS, ORANGE PEEL OPERATOR/SENIOR SOFTWARE QUALITY ANALYST TO OBSERVE FOR RISK FOR FALLS AND INSTRUCT IN FALL PREVENTION, HOME SAFETY, MEDICATION MANAGEMENT, INFECTION PREVENTION, AND NUTRITION MANAGEMENT. RN/ORANGE PEEL OPERATOR/SENIOR SOFTWARE QUALITY ANALYST NURSE MAY PERFORM O2 SATURATION LEVEL ON ADMISSION AND PRN FOR RN TO ASSESS/ORANGE PEEL OPERATOR TO OBSERVE PATIENT, WITH NOTIFICATION TO THE PHYSICIAN IF SATURATION IS 90% IN THE ABSENCE OF MORE SPECIFIC PARAMETERS FROM THE PHYSICIAN. AGENCY MAY PERFORM A RESUMPTION OF CARE VISIT FOLLOWING ANY HOSPITAL ADMISSION. RN/ORANGE PEEL OPERATOR/SENIOR SOFTWARE QUALITY ANALYST TO MONITOR CO-MORBID CONDITIONS LISTED ON THE PLAN OF CARE AND ANY NEW CONDITIONS THAT PRESENT THEMSELVES DURING THIS EPISODE TO IDENTIFY CHANGES AND INTERVENE TO MINIMIZE COMPLICATIONS.] Future Scheduled Test MEDICATION MANAGEMENT; RN/ORANGE PEEL OPERATOR/SENIOR SOFTWARE QUALITY ANALYST TO REVIEW MEDICATIONS FOR INTERACTIONS, EFFECTIVENESS OF DRUG THERAPY, AND SIGNS/SYMPTOMS OF ADVERSE REACTIONS. MAY INSTRUCT AND REINFORCE MEDICATION TEACHING RELATED TO THE USE OF MEDICATIONS, DOSAGE, FREQUENCY, PURPOSE, SIDE EFFECTS, AND TO REPORT COMPLICATIONS. [code = MEDICATION MANAGEMENT; RN/ORANGE PEEL OPERATOR/SENIOR SOFTWARE QUALITY ANALYST TO REVIEW MEDICATIONS FOR INTERACTIONS, EFFECTIVENESS OF DRUG THERAPY, AND SIGNS/SYMPTOMS OF ADVERSE REACTIONS. MAY INSTRUCT AND REINFORCE MEDICATION TEACHING RELATED TO THE USE OF MEDICATIONS, DOSAGE, FREQUENCY, PURPOSE, SIDE EFFECTS, AND TO REPORT COMPLICATIONS.] Future Scheduled Test RESPIRATOR Y SYSTEM MANAGEMENT; RN TO ASSESS AND TEACH, ORANGE PEEL OPERATOR/SENIOR SOFTWARE QUALITY ANALYST TO OBSERVE AND TEACH RELATED TO ALTERED RESPIRATORY STATUS TO MINIMIZE COMPLICATIONS AND REDUCE HOSPITALIZATION. [code = RESPIRATORY SYSTEM MANAGEMENT; RN TO ASSESS AND TEACH, ORANGE PEEL OPERATOR/SENIOR SOFTWARE QUALITY ANALYST TO OBSERVE AND TEACH RELATED TO ALTERED RESPIRATORY STATUS TO MINIMIZE COMPLICATIONS AND REDUCE HOSPITALIZATION.] Future Scheduled Test COPD MANAG EMENT; RN TO ASSESS AND TEACH, ORANGE PEEL OPERATOR/SENIOR SOFTWARE QUALITY ANALYST TO OBSERVE AND TEACH SIGNS/SYMPTOMS OF COPD EXACERBATION AND PROVIDE EARLY INTERVENTIONS TO MINIMIZE RISK OF HOSPITALIZATION. RN/ORANGE PEEL OPERATOR/SENIOR SOFTWARE QUALITY ANALYST TO INSTRUCT ON SELF-CARE MANAGEMENT INCLUDING BREATHING TECHNIQUES, AIRWAY CLEARANCE, AND PROPER USE OF COPD MEDICATIONS. RN TO ASSESS AND TEACH, ORANGE PEEL OPERATOR/SENIOR SOFTWARE QUALITY ANALYST TO OBSERVE AND TEACH PATIENT/CAREGIVER ABILITY TO MONITOR AND RECORD VITAL SIGNS INCLUDING PULSE OXIMETRY AND BLOOD PRESSURE. PULSE OXIMETER AND BP MONITOR TO BE PROVIDED IF NEEDED [code = COPD MANAGEMENT; RN TO ASSESS AND TEACH, ORANGE PEEL OPERATOR/SENIOR SOFTWARE QUALITY ANALYST TO OBSERVE AND TEACH SIGNS/SYMPTOMS OF COPD EXACERBATION AND PROVIDE EARLY INTERVENTIONS TO MINIMIZE RISK OF HOSPITALIZATION. RN/ORANGE PEEL OPERATOR/SENIOR SOFTWARE QUALITY ANALYST TO INSTRUCT ON SELF-CARE MANAGEMENT INCLUDING BREATHING TECHNIQUES, AIRWAY CLEARANCE, AND PROPER USE OF COPD MEDICATIONS. RN TO ASSESS AND TEACH, ORANGE PEEL OPERATOR/SENIOR SOFTWARE QUALITY ANALYST TO OBSERVE AND TEACH PATIENT/CAREGIVER ABILITY TO MONITOR AND RECORD VITAL SIGNS INCLUDING PULSE OXIMETRY AND BLOOD PRESSURE. PULSE OXIMETER AND BP MONITOR TO BE PROVIDED IF NEEDED] Future Scheduled Test OXYGEN THE RAPY; RN/ORANGE PEEL OPERATOR/SENIOR SOFTWARE QUALITY ANALYST TO INSTRUCT ON OXYGEN MANAGEMENT INCLUDING: ADMINISTRATION AT 2L/MIN VIA CONTINUOUS/PRN FOR , CARE OF EQUIPMENT AND SAFETY. [code = OXYGEN THERAPY; RN/ORANGE PEEL OPERATOR/SENIOR SOFTWARE QUALITY ANALYST TO INSTRUCT ON OXYGEN MANAGEMENT INCLUDING: [...] Scheduled Test PRN VISITS ; NUMBER OF RN/ORANGE PEEL OPERATOR/SENIOR SOFTWARE QUALITY ANALYST VISITS: 2 RN/ORANGE PEEL OPERATOR/SENIOR SOFTWARE QUALITY ANALYST TO PERFORM: WOUND EVALUATE FOR THE FOLLOWING REASONS: OBSERVATION [code = PRN VISITS; NUMBER OF RN/ORANGE PEEL OPERATOR/SENIOR SOFTWARE QUALITY ANALYST VISITS: 2 RN/ORANGE PEEL OPERATOR/SENIOR SOFTWARE QUALITY ANALYST TO PERFORM: WOUND EVALUATE FOR THE FOLLOWING REASONS: OBSERVATION] Future Scheduled Test RN/ORANGE PEEL OPERATOR/SENIOR SOFTWARE QUALITY ANALYST TO PERFORM/TEACH ARTERIAL ULCER CARE TO RIGHT AND LEFT LEGS IRRIGATE/CLEANSE WITH WOUND CLEANZER APPLY CALCIUM SILVER ALGINATE SECURE WITH 4XR BORDER GAUZE CHANGE DRESSING EVERY 3 DAYS A WEEK FOR TWO WEEKS THEN 2 DAYS A WEEK TILL EOE DATE AND CHANGE PRN FOR DISLODGED DRESSING OR SOILING BY CAREGIVER AND PT IN BETWEEN NURSING VISITS [code = RN/ORANGE PEEL OPERATOR/SENIOR SOFTWARE QUALITY ANALYST TO PERFORM/TEACH ARTERIAL ULCER CARE TO [...] Date/Time Encounter Type Admission Type Attending [facility] Care Department Encounter ID Discharge Date Discharge Status Discharge Condition Discharge Reason Percent Goals Met 2025-06-16 00:00:00 2025-06-24 00:00:00 Outpatient [facility] [id number] 2025-06-24 00:00:00 DISCHARGE TO HOME OR SELF CARE INDEPENDEN T IN THE HOME HH - NON COMPLIANT WITH PLAN OF TREATMENT 100.00
--- OUTSIDE RECORDS SUMMARY | 2025-06-23 19:00 | XMS_ITS | Clinical Summary ---
Author Organization Unknown Care Team Providers [employer] Test Technician Name Role Phone STEPHON TECHNICIAN [facility], ALBERTO Unavailable Unavailable SILVA RN, GALLO Unavailable Unavailable KODY PT, KILEY Unavailable Unavailable ARABELLA DURHAMN, JOSE ENRIQUE Unavailable Unavailable SALAZAR INDUSTRIAL ENG, RAMYA Unavailable Unavailabl e ROSSI OT, ROXANE Unavailable Unavailable ROMEL ANGELIQUE/PAUL, MARIEA Unavailable Unavail able Payers Payer Name Policy Type Policy Number Effective Date Expira [facility]ion Date [facility] [id number] Problems Condition Name Condition Details Condition Category [...] 10-30 00:00: 00 11-07 23:59 :00 No [id number] INFECTION Per instruc tions DAILY Per instructio ns DAILY (route: intravenou s) Med Classific ation: Anti-Infe ctive Agents sertraline 100 mg tablet 11-14 00:00: 00 07-05 23:59 :00 No [id number] DEPRESSION 1 tablet DAILY 1 tablet DAILY (route: oral) Med Classific ation: Central Nervous System Agents levothyroxi ne 25 mcg tablet 11-14 00:00: 00 07-05 23:59 :00 No [id number] SUPPLEMENTA L 1 tablet DAILY 1 tablet DAILY (route: oral) Med Classific ation: Endocrine nadolol 40 mg tablet 11-14 00:00: 00 07-05 23:59 :00 No [id number] BP 1 tablet DAILY 1 tablet DAILY (route: oral) Med Classific ation: Cardiovas cular Therapy Agents diltiazem CD 180 mg capsule,ext ended release 24 hr 11-14 00:00: 00 07-05 23:59 :00 No [id number] BP 1 capsule DAILY 1 capsule DAILY (route: oral) Med Classific ation: Cardiovas cular Therapy Agents pantoprazol e 40 mg tablet,matty yed release 11-14 00:00: 00 07-05 23:59 :00 No [id number] STOMACH 1 tablet DAILY 1 tablet DAILY (route: oral) Med Classific ation: Gastroint estinal Therapy Agents famotidine 20 mg tablet 11-14 00:00: 00 07-05 23:59 :00 No [id number] STOMACH Per instruc tions DAILY Per instructio ns DAILY (route: oral) Med Classific ation: Gastroint estinal Therapy Agents sertraline 50 mg tablet 11-14 00:00: 00 07-05 23:59 :00 No [id number] ANXIETY 1 tablet DAILY 1 tablet DAILY (route: oral) Med Classific ation: Central Nervous System Agents gabapentin 100 mg capsule 11-14 00:00: 00 01-09 23:59 :00 No [id number] NERVE PAIN 1 capsule 2 TIMES DAILY 1 capsule 2 TIMES DAILY (route: oral) Med Classific ation: Central Nervous System Agents buspirone 7.5 mg tablet 11-14 00:00: 00 07-05 23:59 :00 No [id number] ANXIETY 1 tablet DAILY 1 tablet DAILY (route: oral) Med Classific ation: Central Nervous System Agents mirtazapine 15 mg tablet 11-14 00:00: 00 07-05 23:59 :00 No [id number] SLEEP 1 tablet 2 TIMES A WEEK 1 tablet 2 TIMES A WEEK (route: oral) Med Classific ation: Central Nervous System Agents cefdinir 300 mg capsule 01-02 00:00: 00 01-03 23:59 :00 No [id number] for cellulits/ infection to leg 1 capsule 2 TIMES DAILY 1 capsule 2 TIMES DAILY (route: oral) Med Classific ation: Anti-Infe ctive Agents Breo Ellipta 100 mcg-25 mcg/dose powder for inhalation 2021-08 00:00: 00 07-05 23:59 :00 No [id number] LUNGS 1 inhalat ion DAILY 1 inhalation DAILY (route: inhalation ) Med Classific ation: Respirato ry Therapy Agents nystatin 100,000 unit/gram topical powder 2023-08 00:00: 00 Yes [id number] UNDER BREAST AND ABDOMEN 1 unit 4 TIMES DAILY 1 unit 4 TIMES DAILY (route: topical) Med Classific ation: Dermatolo gical oxygen gas for inhalation 2023-08 00:00: 00 Yes [id number] SOA 2 Liter O2 - CONTINUOUS 2 Liter O2 - CONTINUOUS (route: inhalation ) Med Classific ation: Medical Supplies and Durable Medical Equipment (DME) bumetanide 1 mg tablet 2023-08 00:00: 00 Yes [id number] WATER PILL 1 tablet DAILY 1 tablet DAILY (route: oral) Med Classific ation: Cardiovas cular Therapy Agents buspirone 7.5 mg tablet 2020-08 00:00: 00 Yes [id number] MOOD 1 tablet 2 TIMES DAILY 1 tablet 2 TIMES DAILY (route: oral) Med Classific ation: Central Nervous System Agents Gemtesa 75 mg tablet 2020-08 00:00: 00 Yes [id number] URINARY 1 tablet DAILY 1 tablet DAILY (route: oral) Med Classific ation: Genitouri nary Therapy levothyroxi ne 25 mcg tablet 2020-08 00:00: 00 Yes [id number] THYROID 1 tablet DAILY 1 tablet DAILY (route: oral) Med Classific ation: Endocrine meloxicam 7.5 mg tablet 2020-08 00:00: 00 02-02 23:59 :00 No [id number] PAIN 1 tablet DAILY 1 tablet DAILY (route: oral) Med Classific ation: Analgesic , Anti-infl ammatory or Antipyret ic mirtazapine 15 mg tablet 2021-08 00:00: 00 Yes [id number] RLS 1 tablet BEDTIME 1 tablet BEDTIME (route: oral) Med Classific ation: Central Nervous System Agents pantoprazol e 40 mg tablet,matty yed release 2020-08 00:00: 00 Yes [id number] GERD 1 tablet BEDTIME 1 tablet BEDTIME (route: oral) Med Classific ation: Gastroint estinal Therapy Agents Pepcid 20 mg tablet 2021-08 00:00: 00 Yes [id number] GERD 1 tablet 2 TIMES DAILY 1 tablet 2 TIMES DAILY (route: oral) Med Classific ation: Gastroint estinal Therapy Agents sertraline 150 mg capsule 2020-08 00:00: 00 Yes [id number] MOOD 1 capsule DAILY 1 capsule DAILY (route: oral) Med Classific ation: Central Nervous System Agents valsartan 160 mg tablet 2021-08 00:00: 00 02-02 23:59 :00 No [id number] HEART 1 tablet DAILY 1 tablet DAILY (route: oral) Med Classific ation: Cardiovas cular Therapy Agents cyclobenzap rine 10 mg tablet 09-10 00:00: 00 02-02 23:59 :00 No [id number] PAIN 1 tablet 3 TIMES DAILY 1 tablet 3 TIMES DAILY (route: oral) Med Classific ation: Locomotor System Aspirin Childrens 81 mg chewable tablet 02-02 00:00: 00 Yes [id number] HEART 1 tablet DAILY 1 tablet DAILY (route: oral) Med Classific ation: Hematolog ical Agents atorvastati n 20 mg tablet 02-02 00:00: 00 Yes [id number] CHOLESTEROL 1 tablet DAILY 1 tablet DAILY (route: oral) Med Classific ation: Cardiovas cular Therapy Agents cetirizine 10 mg tablet 02-02 00:00: 00 Yes [id number] ALLERGIES 1 tablet BEDTIME 1 tablet BEDTIME (route: oral) Med Classific ation: Respirato ry Therapy Agents Eliquis 5 mg tablet 02-02 00:00: 00 Yes [id number] HEART 1 tablet 2 TIMES DAILY 1 tablet 2 TIMES DAILY (route: oral) Med Classific ation: Hematolog ical Agents Jardiance 10 mg tablet 02-02 00:00: 00 Yes [id number] DIABETES 1 tablet DAILY 1 tablet DAILY (route: oral) Med Classific ation: Endocrine metoprolol succinate ER 25 mg tablet,exte nded release 24 hr 02-02 00:00: 00 Yes [id number] HEART 1 tablet DAILY 1 tablet DAILY [...] ALBERTO SZYMANSKI RN TO OBSERVE AND ASSESS, RECTIFIER OPERATOR/STRUCTURAL TEST ENGINEER TO OBSERVE FOR RISK FOR FALLS AND INSTRUCT IN FALL PREVENTION, HOME SAFETY, MEDICATION MANAGEMENT, INFECTION PREVENTION, AND NUTRITION MANAGEMENT. RN/RECTIFIER OPERATOR/STRUCTURAL TEST ENGINEER NURSE MAY PERFORM O2 SATURATION LEVEL ON ADMISSION AND PRN FOR RN TO ASSESS/RECTIFIER OPERATOR TO OBSERVE PATIENT, WITH NOTIFICATION TO THE PHYSICIAN IF SATURATION IS 90% IN THE ABSENCE OF MORE SPECIFIC PARAMETERS FROM THE PHYSICIAN. AGENCY MAY PERFORM A RESUMPTION OF CARE VISIT FOLLOWING ANY HOSPITAL ADMISSION. RN/RECTIFIER OPERATOR/STRUCTURAL TEST ENGINEER TO MONITOR CO-MORBID CONDITIONS LISTED ON THE PLAN OF CARE AND ANY NEW CONDITIONS THAT PRESENT THEMSELVES DURING THIS EPISODE TO IDENTIFY CHANGES AND INTERVENE TO MINIMIZE COMPLICATIONS. [code = RN TO OBSERVE, ASSESS, EVALUATE, AND DEVELOP AN INDIVIDUALIZED PLAN OF CARE. AGENCY MAY ACCEPT ORDERS FROM CONSULTING PHYSICIANS ALBERTO SZYMANSKI RN TO OBSERVE AND ASSESS, RECTIFIER OPERATOR/STRUCTURAL TEST ENGINEER TO OBSERVE FOR RISK FOR FALLS AND INSTRUCT IN FALL PREVENTION, HOME SAFETY, MEDICATION MANAGEMENT, INFECTION PREVENTION, AND NUTRITION MANAGEMENT. RN/RECTIFIER OPERATOR/STRUCTURAL TEST ENGINEER NURSE MAY PERFORM O2 SATURATION LEVEL ON ADMISSION AND PRN FOR RN TO ASSESS/RECTIFIER OPERATOR TO OBSERVE PATIENT, WITH NOTIFICATION TO THE PHYSICIAN IF SATURATION IS 90% IN THE ABSENCE OF MORE SPECIFIC PARAMETERS FROM THE PHYSICIAN. AGENCY MAY PERFORM A RESUMPTION OF CARE VISIT FOLLOWING ANY HOSPITAL ADMISSION. RN/RECTIFIER OPERATOR/STRUCTURAL TEST ENGINEER TO MONITOR CO-MORBID CONDITIONS LISTED ON THE PLAN OF CARE AND ANY NEW CONDITIONS THAT PRESENT THEMSELVES DURING THIS EPISODE TO IDENTIFY CHANGES AND INTERVENE TO MINIMIZE COMPLICATIONS.] Future Scheduled Test MEDICATION MANAGEMENT; RN/RECTIFIER OPERATOR/STRUCTURAL TEST ENGINEER TO REVIEW MEDICATIONS FOR INTERACTIONS, EFFECTIVENESS OF DRUG THERAPY, AND SIGNS/SYMPTOMS OF ADVERSE REACTIONS. MAY INSTRUCT AND REINFORCE MEDICATION TEACHING RELATED TO THE USE OF MEDICATIONS, DOSAGE, FREQUENCY, PURPOSE, SIDE EFFECTS, AND TO REPORT COMPLICATIONS. [code = MEDICATION MANAGEMENT; RN/RECTIFIER OPERATOR/STRUCTURAL TEST ENGINEER TO REVIEW MEDICATIONS FOR INTERACTIONS, EFFECTIVENESS OF DRUG THERAPY, AND SIGNS/SYMPTOMS OF ADVERSE REACTIONS. MAY INSTRUCT AND REINFORCE MEDICATION TEACHING RELATED TO THE USE OF MEDICATIONS, DOSAGE, FREQUENCY, PURPOSE, SIDE EFFECTS, AND TO REPORT COMPLICATIONS.] Future Scheduled Test RESPIRATOR Y SYSTEM MANAGEMENT; RN TO ASSESS AND TEACH, RECTIFIER OPERATOR/STRUCTURAL TEST ENGINEER TO OBSERVE AND TEACH RELATED TO ALTERED RESPIRATORY STATUS TO MINIMIZE COMPLICATIONS AND REDUCE HOSPITALIZATION. [code = RESPIRATORY SYSTEM MANAGEMENT; RN TO ASSESS AND TEACH, RECTIFIER OPERATOR/STRUCTURAL TEST ENGINEER TO OBSERVE AND TEACH RELATED TO ALTERED RESPIRATORY STATUS TO MINIMIZE COMPLICATIONS AND REDUCE HOSPITALIZATION.] Future Scheduled Test COPD MANAG EMENT; RN TO ASSESS AND TEACH, RECTIFIER OPERATOR/STRUCTURAL TEST ENGINEER TO OBSERVE AND TEACH SIGNS/SYMPTOMS OF COPD EXACERBATION AND PROVIDE EARLY INTERVENTIONS TO MINIMIZE RISK OF HOSPITALIZATION. RN/RECTIFIER OPERATOR/STRUCTURAL TEST ENGINEER TO INSTRUCT ON SELF-CARE MANAGEMENT INCLUDING BREATHING TECHNIQUES, AIRWAY CLEARANCE, AND PROPER USE OF COPD MEDICATIONS. RN TO ASSESS AND TEACH, RECTIFIER OPERATOR/STRUCTURAL TEST ENGINEER TO OBSERVE AND TEACH PATIENT/CAREGIVER ABILITY TO MONITOR AND RECORD VITAL SIGNS INCLUDING PULSE OXIMETRY AND BLOOD PRESSURE. PULSE OXIMETER AND BP MONITOR TO BE PROVIDED IF NEEDED [code = COPD MANAGEMENT; RN TO ASSESS AND TEACH, RECTIFIER OPERATOR/STRUCTURAL TEST ENGINEER TO OBSERVE AND TEACH SIGNS/SYMPTOMS OF COPD EXACERBATION AND PROVIDE EARLY INTERVENTIONS TO MINIMIZE RISK OF HOSPITALIZATION. RN/RECTIFIER OPERATOR/STRUCTURAL TEST ENGINEER TO INSTRUCT ON SELF-CARE MANAGEMENT INCLUDING BREATHING TECHNIQUES, AIRWAY CLEARANCE, AND PROPER USE OF COPD MEDICATIONS. RN TO ASSESS AND TEACH, RECTIFIER OPERATOR/STRUCTURAL TEST ENGINEER TO OBSERVE AND TEACH PATIENT/CAREGIVER ABILITY TO MONITOR AND RECORD VITAL SIGNS INCLUDING PULSE OXIMETRY AND BLOOD PRESSURE. PULSE OXIMETER AND BP MONITOR TO BE PROVIDED IF NEEDED] Future Scheduled Test OXYGEN THE RAPY; RN/RECTIFIER OPERATOR/STRUCTURAL TEST ENGINEER TO INSTRUCT ON OXYGEN MANAGEMENT INCLUDING: ADMINISTRATION AT 2L/MIN VIA CONTINUOUS/PRN FOR , CARE OF EQUIPMENT AND SAFETY. [code = OXYGEN THERAPY; RN/RECTIFIER OPERATOR/STRUCTURAL TEST ENGINEER TO INSTRUCT ON OXYGEN MANAGEMENT INCLUDING: [...] Scheduled Test PRN VISITS ; NUMBER OF RN/RECTIFIER OPERATOR/STRUCTURAL TEST ENGINEER VISITS: 2 RN/RECTIFIER OPERATOR/STRUCTURAL TEST ENGINEER TO PERFORM: WOUND EVALUATE FOR THE FOLLOWING REASONS: OBSERVATION [code = PRN VISITS; NUMBER OF RN/RECTIFIER OPERATOR/STRUCTURAL TEST ENGINEER VISITS: 2 RN/RECTIFIER OPERATOR/STRUCTURAL TEST ENGINEER TO PERFORM: WOUND EVALUATE FOR THE FOLLOWING REASONS: OBSERVATION] Future Scheduled Test RN/RECTIFIER OPERATOR/STRUCTURAL TEST ENGINEER TO PERFORM/TEACH ARTERIAL ULCER CARE TO RIGHT AND LEFT LEGS IRRIGATE/CLEANSE WITH WOUND CLEANZER APPLY CALCIUM SILVER ALGINATE SECURE WITH 4XR BORDER GAUZE CHANGE DRESSING EVERY 3 DAYS A WEEK FOR TWO WEEKS THEN 2 DAYS A WEEK TILL EOE DATE AND CHANGE PRN FOR DISLODGED DRESSING OR SOILING BY CAREGIVER AND PT IN BETWEEN NURSING VISITS [code = RN/RECTIFIER OPERATOR/STRUCTURAL TEST ENGINEER TO PERFORM/TEACH ARTERIAL ULCER CARE TO [...] 2025-06-16 00:00:00 2025-06-24 00:00:00 Outpatient GALLO MOSELEY [facility] [id number] 2025-06-24 00:00:00 DISCHARGE TO HOME OR SELF CARE INDEPENDEN T IN THE HOME HH - NON COMPLIANT WITH PLAN OF TREATMENT 100.00
--- OUTSIDE RECORDS SUMMARY | 2025-06-23 19:00 | XMS_ITS | Clinical Summary ---
Author Organization Unknown Care Team Providers Care Devil Dog Name Role Phone STEPHON MASON FOREMAN/SUPERINTENDANT, ALBERTO Unavailable Unavailable SILVA RN, GALLO Unavailable Unavailable KODY PT, KILEY Unavailable Unavailable ARABELLA DURHAMN, JOSE ENRIQUE Unavailable Unavailable [employer]ENT, RAMYA Unavailable Unavailabl e ROSSI OT, ROXANE Unavailable Unavailable ROMEL ANGELIQUE/PAUL, MARIEA Unavailable Unavail able Payers Payer Name Policy Type Policy Number Effective Date Expira tion Date [facility] [id number] Problems Condition Name Condition Details Condition Category [...] 10-30 00:00: 00 11-07 23:59 :00 No [id number] INFECTION Per instruc tions DAILY Per instructio ns DAILY (route: intravenou s) Med Classific ation: Anti-Infe ctive Agents sertraline 100 mg tablet 11-14 00:00: 00 07-05 23:59 :00 No [id number] DEPRESSION 1 tablet DAILY 1 tablet DAILY (route: oral) Med Classific ation: Central Nervous System Agents levothyroxi ne 25 mcg tablet 11-14 00:00: 00 07-05 23:59 :00 No [id number] SUPPLEMENTA L 1 tablet DAILY 1 tablet DAILY (route: oral) Med Classific ation: Endocrine nadolol 40 mg tablet 11-14 00:00: 00 07-05 23:59 :00 No [id number] BP 1 tablet DAILY 1 tablet DAILY (route: oral) Med Classific ation: Cardiovas cular Therapy Agents diltiazem CD 180 mg capsule,ext ended release 24 hr 11-14 00:00: 00 07-05 23:59 :00 No [id number] BP 1 capsule DAILY 1 capsule DAILY (route: oral) Med Classific ation: Cardiovas cular Therapy Agents pantoprazol e 40 mg tablet,matty yed release 11-14 00:00: 00 07-05 23:59 :00 No [id number] STOMACH 1 tablet DAILY 1 tablet DAILY (route: oral) Med Classific ation: Gastroint estinal Therapy Agents famotidine 20 mg tablet 11-14 00:00: 00 07-05 23:59 :00 No [id number] STOMACH Per instruc tions DAILY Per instructio ns DAILY (route: oral) Med Classific ation: Gastroint estinal Therapy Agents sertraline 50 mg tablet 11-14 00:00: 00 07-05 23:59 :00 No [id number] ANXIETY 1 tablet DAILY 1 tablet DAILY (route: oral) Med Classific ation: Central Nervous System Agents gabapentin 100 mg capsule 11-14 00:00: 00 01-09 23:59 :00 No [id number] NERVE PAIN 1 capsule 2 TIMES DAILY 1 capsule 2 TIMES DAILY (route: oral) Med Classific ation: Central Nervous System Agents buspirone 7.5 mg tablet 11-14 00:00: 00 07-05 23:59 :00 No [id number] ANXIETY 1 tablet DAILY 1 tablet DAILY (route: oral) Med Classific ation: Central Nervous System Agents mirtazapine 15 mg tablet 11-14 00:00: 00 07-05 23:59 :00 No [id number] SLEEP 1 tablet 2 TIMES A WEEK 1 tablet 2 TIMES A WEEK (route: oral) Med Classific ation: Central Nervous System Agents cefdinir 300 mg capsule 01-02 00:00: 00 01-03 23:59 :00 No [id number] for cellulits/ infection to leg 1 capsule 2 TIMES DAILY 1 capsule 2 TIMES DAILY (route: oral) Med Classific ation: Anti-Infe ctive Agents Breo Ellipta 100 mcg-25 mcg/dose powder for inhalation 2021-08 00:00: 00 07-05 23:59 :00 No [id number] LUNGS 1 inhalat ion DAILY 1 inhalation DAILY (route: inhalation ) Med Classific ation: Respirato ry Therapy Agents nystatin 100,000 unit/gram topical powder 2023-08 00:00: 00 Yes [id number] UNDER BREAST AND ABDOMEN 1 unit 4 TIMES DAILY 1 unit 4 TIMES DAILY (route: topical) Med Classific ation: Dermatolo gical oxygen gas for inhalation 2023-08 00:00: 00 Yes [id number] SOA 2 Liter O2 - CONTINUOUS 2 Liter O2 - CONTINUOUS (route: inhalation ) Med Classific ation: Medical Supplies and Durable Medical Equipment (DME) bumetanide 1 mg tablet 2023-08 00:00: 00 Yes [id number] WATER PILL 1 tablet DAILY 1 tablet DAILY (route: oral) Med Classific ation: Cardiovas cular Therapy Agents buspirone 7.5 mg tablet 2020-08 00:00: 00 Yes [id number] MOOD 1 tablet 2 TIMES DAILY 1 tablet 2 TIMES DAILY (route: oral) Med Classific ation: Central Nervous System Agents Gemtesa 75 mg tablet 2020-08 00:00: 00 Yes [id number] URINARY 1 tablet DAILY 1 tablet DAILY (route: oral) Med Classific ation: Genitouri nary Therapy levothyroxi ne 25 mcg tablet 2020-08 00:00: 00 Yes [id number] THYROID 1 tablet DAILY 1 tablet DAILY (route: oral) Med Classific ation: Endocrine meloxicam 7.5 mg tablet 2020-08 00:00: 00 02-02 23:59 :00 No [id number] PAIN 1 tablet DAILY 1 tablet DAILY (route: oral) Med Classific ation: Analgesic , Anti-infl ammatory or Antipyret ic mirtazapine 15 mg tablet 2021-08 00:00: 00 Yes [id number] RLS 1 tablet BEDTIME 1 tablet BEDTIME (route: oral) Med Classific ation: Central Nervous System Agents pantoprazol e 40 mg tablet,matty yed release 2020-08 00:00: 00 Yes [id number] GERD 1 tablet BEDTIME 1 tablet BEDTIME (route: oral) Med Classific ation: Gastroint estinal Therapy Agents Pepcid 20 mg tablet 2021-08 00:00: 00 Yes [id number] GERD 1 tablet 2 TIMES DAILY 1 tablet 2 TIMES DAILY (route: oral) Med Classific ation: Gastroint estinal Therapy Agents sertraline 150 mg capsule 2020-08 00:00: 00 Yes [id number] MOOD 1 capsule DAILY 1 capsule DAILY (route: oral) Med Classific ation: Central Nervous System Agents valsartan 160 mg tablet 2021-08 00:00: 00 02-02 23:59 :00 No [id number] HEART 1 tablet DAILY 1 tablet DAILY (route: oral) Med Classific ation: Cardiovas cular Therapy Agents cyclobenzap rine 10 mg tablet 09-10 00:00: 00 02-02 23:59 :00 No [id number] PAIN 1 tablet 3 TIMES DAILY 1 tablet 3 TIMES DAILY (route: oral) Med Classific ation: Locomotor System Aspirin Childrens 81 mg chewable tablet 02-02 00:00: 00 Yes [id number] HEART 1 tablet DAILY 1 tablet DAILY (route: oral) Med Classific ation: Hematolog ical Agents atorvastati n 20 mg tablet 02-02 00:00: 00 Yes [id number] CHOLESTEROL 1 tablet DAILY 1 tablet DAILY (route: oral) Med Classific ation: Cardiovas cular Therapy Agents cetirizine 10 mg tablet 02-02 00:00: 00 Yes [id number] ALLERGIES 1 tablet BEDTIME 1 tablet BEDTIME (route: oral) Med Classific ation: Respirato ry Therapy Agents Eliquis 5 mg tablet 02-02 00:00: 00 Yes [id number] HEART 1 tablet 2 TIMES DAILY 1 tablet 2 TIMES DAILY (route: oral) Med Classific ation: Hematolog ical Agents Jardiance 10 mg tablet 02-02 00:00: 00 Yes [id number] DIABETES 1 tablet DAILY 1 tablet DAILY (route: oral) Med Classific ation: Endocrine metoprolol succinate ER 25 mg tablet,exte nded release 24 hr 02-02 00:00: 00 Yes [id number] HEART 1 tablet DAILY 1 tablet DAILY [...] ALBERTO SZYMANSKI RN TO OBSERVE AND ASSESS, CHIEF MERCHANDISING OFFICER/ENVIRONMENTAL OFFICER TO OBSERVE FOR RISK FOR FALLS AND INSTRUCT IN FALL PREVENTION, HOME SAFETY, MEDICATION MANAGEMENT, INFECTION PREVENTION, AND NUTRITION MANAGEMENT. RN/CHIEF MERCHANDISING OFFICER/ENVIRONMENTAL OFFICER NURSE MAY PERFORM O2 SATURATION LEVEL ON ADMISSION AND PRN FOR RN TO ASSESS/CHIEF MERCHANDISING OFFICER TO OBSERVE PATIENT, WITH NOTIFICATION TO THE PHYSICIAN IF SATURATION IS 90% IN THE ABSENCE OF MORE SPECIFIC PARAMETERS FROM THE PHYSICIAN. AGENCY MAY PERFORM A RESUMPTION OF CARE VISIT FOLLOWING ANY HOSPITAL ADMISSION. RN/CHIEF MERCHANDISING OFFICER/ENVIRONMENTAL OFFICER TO MONITOR CO-MORBID CONDITIONS LISTED ON THE PLAN OF CARE AND ANY NEW CONDITIONS THAT PRESENT THEMSELVES DURING THIS EPISODE TO IDENTIFY CHANGES AND INTERVENE TO MINIMIZE COMPLICATIONS. [code = RN TO OBSERVE, ASSESS, EVALUATE, AND DEVELOP AN INDIVIDUALIZED PLAN OF CARE. AGENCY MAY ACCEPT ORDERS FROM CONSULTING PHYSICIANS ALBERTO SZYMANSKI RN TO OBSERVE AND ASSESS, CHIEF MERCHANDISING OFFICER/ENVIRONMENTAL OFFICER TO OBSERVE FOR RISK FOR FALLS AND INSTRUCT IN FALL PREVENTION, HOME SAFETY, MEDICATION MANAGEMENT, INFECTION PREVENTION, AND NUTRITION MANAGEMENT. RN/CHIEF MERCHANDISING OFFICER/ENVIRONMENTAL OFFICER NURSE MAY PERFORM O2 SATURATION LEVEL ON ADMISSION AND PRN FOR RN TO ASSESS/CHIEF MERCHANDISING OFFICER TO OBSERVE PATIENT, WITH NOTIFICATION TO THE PHYSICIAN IF SATURATION IS 90% IN THE ABSENCE OF MORE SPECIFIC PARAMETERS FROM THE PHYSICIAN. AGENCY MAY PERFORM A RESUMPTION OF CARE VISIT FOLLOWING ANY HOSPITAL ADMISSION. RN/CHIEF MERCHANDISING OFFICER/ENVIRONMENTAL OFFICER TO MONITOR CO-MORBID CONDITIONS LISTED ON THE PLAN OF CARE AND ANY NEW CONDITIONS THAT PRESENT THEMSELVES DURING THIS EPISODE TO IDENTIFY CHANGES AND INTERVENE TO MINIMIZE COMPLICATIONS.] Future Scheduled Test MEDICATION MANAGEMENT; RN/CHIEF MERCHANDISING OFFICER/ENVIRONMENTAL OFFICER TO REVIEW MEDICATIONS FOR INTERACTIONS, EFFECTIVENESS OF DRUG THERAPY, AND SIGNS/SYMPTOMS OF ADVERSE REACTIONS. MAY INSTRUCT AND REINFORCE MEDICATION TEACHING RELATED TO THE USE OF MEDICATIONS, DOSAGE, FREQUENCY, PURPOSE, SIDE EFFECTS, AND TO REPORT COMPLICATIONS. [code = MEDICATION MANAGEMENT; RN/CHIEF MERCHANDISING OFFICER/ENVIRONMENTAL OFFICER TO REVIEW MEDICATIONS FOR INTERACTIONS, EFFECTIVENESS OF DRUG THERAPY, AND SIGNS/SYMPTOMS OF ADVERSE REACTIONS. MAY INSTRUCT AND REINFORCE MEDICATION TEACHING RELATED TO THE USE OF MEDICATIONS, DOSAGE, FREQUENCY, PURPOSE, SIDE EFFECTS, AND TO REPORT COMPLICATIONS.] Future Scheduled Test RESPIRATOR Y SYSTEM MANAGEMENT; RN TO ASSESS AND TEACH, CHIEF MERCHANDISING OFFICER/ENVIRONMENTAL OFFICER TO OBSERVE AND TEACH RELATED TO ALTERED RESPIRATORY STATUS TO MINIMIZE COMPLICATIONS AND REDUCE HOSPITALIZATION. [code = RESPIRATORY SYSTEM MANAGEMENT; RN TO ASSESS AND TEACH, CHIEF MERCHANDISING OFFICER/ENVIRONMENTAL OFFICER TO OBSERVE AND TEACH RELATED TO ALTERED RESPIRATORY STATUS TO MINIMIZE COMPLICATIONS AND REDUCE HOSPITALIZATION.] Future Scheduled Test COPD MANAG EMENT; RN TO ASSESS AND TEACH, CHIEF MERCHANDISING OFFICER/ENVIRONMENTAL OFFICER TO OBSERVE AND TEACH SIGNS/SYMPTOMS OF COPD EXACERBATION AND PROVIDE EARLY INTERVENTIONS TO MINIMIZE RISK OF HOSPITALIZATION. RN/CHIEF MERCHANDISING OFFICER/ENVIRONMENTAL OFFICER TO INSTRUCT ON SELF-CARE MANAGEMENT INCLUDING BREATHING TECHNIQUES, AIRWAY CLEARANCE, AND PROPER USE OF COPD MEDICATIONS. RN TO ASSESS AND TEACH, CHIEF MERCHANDISING OFFICER/ENVIRONMENTAL OFFICER TO OBSERVE AND TEACH PATIENT/CAREGIVER ABILITY TO MONITOR AND RECORD VITAL SIGNS INCLUDING PULSE OXIMETRY AND BLOOD PRESSURE. PULSE OXIMETER AND BP MONITOR TO BE PROVIDED IF NEEDED [code = COPD MANAGEMENT; RN TO ASSESS AND TEACH, CHIEF MERCHANDISING OFFICER/ENVIRONMENTAL OFFICER TO OBSERVE AND TEACH SIGNS/SYMPTOMS OF COPD EXACERBATION AND PROVIDE EARLY INTERVENTIONS TO MINIMIZE RISK OF HOSPITALIZATION. RN/CHIEF MERCHANDISING OFFICER/ENVIRONMENTAL OFFICER TO INSTRUCT ON SELF-CARE MANAGEMENT INCLUDING BREATHING TECHNIQUES, AIRWAY CLEARANCE, AND PROPER USE OF COPD MEDICATIONS. RN TO ASSESS AND TEACH, CHIEF MERCHANDISING OFFICER/ENVIRONMENTAL OFFICER TO OBSERVE AND TEACH PATIENT/CAREGIVER ABILITY TO MONITOR AND RECORD VITAL SIGNS INCLUDING PULSE OXIMETRY AND BLOOD PRESSURE. PULSE OXIMETER AND BP MONITOR TO BE PROVIDED IF NEEDED] Future Scheduled Test OXYGEN THE RAPY; RN/CHIEF MERCHANDISING OFFICER/ENVIRONMENTAL OFFICER TO INSTRUCT ON OXYGEN MANAGEMENT INCLUDING: ADMINISTRATION AT 2L/MIN VIA CONTINUOUS/PRN FOR , CARE OF EQUIPMENT AND SAFETY. [code = OXYGEN THERAPY; RN/CHIEF MERCHANDISING OFFICER/ENVIRONMENTAL OFFICER TO INSTRUCT ON OXYGEN MANAGEMENT INCLUDING: ADMINISTRATION [...] Scheduled Test PRN VISITS ; NUMBER OF RN/CHIEF MERCHANDISING OFFICER/ENVIRONMENTAL OFFICER VISITS: 2 RN/CHIEF MERCHANDISING OFFICER/ENVIRONMENTAL OFFICER TO PERFORM: WOUND EVALUATE FOR THE FOLLOWING REASONS: OBSERVATION [code = PRN VISITS; NUMBER OF RN/CHIEF MERCHANDISING OFFICER/ENVIRONMENTAL OFFICER VISITS: 2 RN/CHIEF MERCHANDISING OFFICER/ENVIRONMENTAL OFFICER TO PERFORM: WOUND EVALUATE FOR THE FOLLOWING REASONS: OBSERVATION] Future Scheduled Test RN/CHIEF MERCHANDISING OFFICER/ENVIRONMENTAL OFFICER TO PERFORM/TEACH ARTERIAL ULCER CARE TO RIGHT AND LEFT LEGS IRRIGATE/CLEANSE WITH WOUND CLEANZER APPLY CALCIUM SILVER ALGINATE SECURE WITH 4XR BORDER GAUZE CHANGE DRESSING EVERY 3 DAYS A WEEK FOR TWO WEEKS THEN 2 DAYS A WEEK TILL EOE DATE AND CHANGE PRN FOR DISLODGED DRESSING OR SOILING BY CAREGIVER AND PT IN BETWEEN NURSING VISITS [code = RN/CHIEF MERCHANDISING OFFICER/ENVIRONMENTAL OFFICER TO PERFORM/TEACH ARTERIAL ULCER CARE TO RIGHT [...] End Date/Time Encounter Type Admission Type Attending [facility] Care Department Encounter ID Discharge Date Discharge Status Discharge Condition Discharge Reason Percent Goals Met 2025-06-16 00:00:00 2025-06-24 00:00:00 Outpatient GALLO [facility] [id number] 2025-06-24 00:00:00 DISCHARGE TO HOME OR SELF CARE INDEPENDEN T IN THE HOME HH - NON COMPLIANT WITH PLAN OF TREATMENT 100.00
--- OUTSIDE RECORDS SUMMARY | 2025-06-23 19:00 | XMS_ITS | Clinical Summary ---
Author Organization Unknown Care Team Providers Care Skill Training Program Coordinator Name Role Phone STEPHON ETHNOLOGY PROFESSOR, ALBERTO Unavailable Unavailable SILVA RN, GALLO Unavailable Unavailable KODY PT, KILEY Unavailable Unavailable ARABELLA DURHAMN, JOSE ENRIQUE Unavailable Unavailable SALAZAR CHASER HELPER, RAMYA Unavailable Unavailabl e ROSSI OT, ROXANE Unavailable Unavailable ROMEL ANGELIQUE/PAUL, MARIEA Unavailable Unavail able Payers Payer Name Policy Type Policy Number Effective Date Expira tion Date [facility] .C[facility] [id number] Problems Condition Name Condition Details Condition Category [...] 10-30 00:00: 00 11-07 23:59 :00 No [id number] INFECTION Per instruc tions DAILY Per instructio ns DAILY (route: intravenou s) Med Classific ation: Anti-Infe ctive Agents sertraline 100 mg tablet 11-14 00:00: 00 07-05 23:59 :00 No [id number] DEPRESSION 1 tablet DAILY 1 tablet DAILY (route: oral) Med Classific ation: Central Nervous System Agents levothyroxi ne 25 mcg tablet 11-14 00:00: 00 07-05 23:59 :00 No [id number] SUPPLEMENTA L 1 tablet DAILY 1 tablet DAILY (route: oral) Med Classific ation: Endocrine nadolol 40 mg tablet 11-14 00:00: 00 07-05 23:59 :00 No [id number] BP 1 tablet DAILY 1 tablet DAILY (route: oral) Med Classific ation: Cardiovas cular Therapy Agents diltiazem CD 180 mg capsule,ext ended release 24 hr 11-14 00:00: 00 07-05 23:59 :00 No [id number] BP 1 capsule DAILY 1 capsule DAILY (route: oral) Med Classific ation: Cardiovas cular Therapy Agents pantoprazol e 40 mg tablet,matty yed release 11-14 00:00: 00 07-05 23:59 :00 No [id number] STOMACH 1 tablet DAILY 1 tablet DAILY (route: oral) Med Classific ation: Gastroint estinal Therapy Agents famotidine 20 mg tablet 11-14 00:00: 00 07-05 23:59 :00 No [id number] STOMACH Per instruc tions DAILY Per instructio ns DAILY (route: oral) Med Classific ation: Gastroint estinal Therapy Agents sertraline 50 mg tablet 11-14 00:00: 00 07-05 23:59 :00 No [id number] ANXIETY 1 tablet DAILY 1 tablet DAILY (route: oral) Med Classific ation: Central Nervous System Agents gabapentin 100 mg capsule 11-14 00:00: 00 01-09 23:59 :00 No [id number] NERVE PAIN 1 capsule 2 TIMES DAILY 1 capsule 2 TIMES DAILY (route: oral) Med Classific ation: Central Nervous System Agents buspirone 7.5 mg tablet 11-14 00:00: 00 07-05 23:59 :00 No [id number] ANXIETY 1 tablet DAILY 1 tablet DAILY (route: oral) Med Classific ation: Central Nervous System Agents mirtazapine 15 mg tablet 11-14 00:00: 00 07-05 23:59 :00 No [id number] SLEEP 1 tablet 2 TIMES A WEEK 1 tablet 2 TIMES A WEEK (route: oral) Med Classific ation: Central Nervous System Agents cefdinir 300 mg capsule 01-02 00:00: 00 01-03 23:59 :00 No [id number] for cellulits/ infection to leg 1 capsule 2 TIMES DAILY 1 capsule 2 TIMES DAILY (route: oral) Med Classific ation: Anti-Infe ctive Agents Breo Ellipta 100 mcg-25 mcg/dose powder for inhalation 2021-08 00:00: 00 07-05 23:59 :00 No [id number] LUNGS 1 inhalat ion DAILY 1 inhalation DAILY (route: inhalation ) Med Classific ation: Respirato ry Therapy Agents nystatin 100,000 unit/gram topical powder 2023-08 00:00: 00 Yes [id number] UNDER BREAST AND ABDOMEN 1 unit 4 TIMES DAILY 1 unit 4 TIMES DAILY (route: topical) Med Classific ation: Dermatolo gical oxygen gas for inhalation 2023-08 00:00: 00 Yes [id number] SOA 2 Liter O2 - CONTINUOUS 2 Liter O2 - CONTINUOUS (route: inhalation ) Med Classific ation: Medical Supplies and Durable Medical Equipment (DME) bumetanide 1 mg tablet 2023-08 00:00: 00 Yes [id number] WATER PILL 1 tablet DAILY 1 tablet DAILY (route: oral) Med Classific ation: Cardiovas cular Therapy Agents buspirone 7.5 mg tablet 2020-08 00:00: 00 Yes [id number] MOOD 1 tablet 2 TIMES DAILY 1 tablet 2 TIMES DAILY (route: oral) Med Classific ation: Central Nervous System Agents Gemtesa 75 mg tablet 2020-08 00:00: 00 Yes [id number] URINARY 1 tablet DAILY 1 tablet DAILY (route: oral) Med Classific ation: Genitouri nary Therapy levothyroxi ne 25 mcg tablet 2020-08 00:00: 00 Yes [id number] THYROID 1 tablet DAILY 1 tablet DAILY (route: oral) Med Classific ation: Endocrine meloxicam 7.5 mg tablet 2020-08 00:00: 00 02-02 23:59 :00 No [id number] PAIN 1 tablet DAILY 1 tablet DAILY (route: oral) Med Classific ation: Analgesic , Anti-infl ammatory or Antipyret ic mirtazapine 15 mg tablet 2021-08 00:00: 00 Yes [id number] RLS 1 tablet BEDTIME 1 tablet BEDTIME (route: oral) Med Classific ation: Central Nervous System Agents pantoprazol e 40 mg tablet,matty yed release 2020-08 00:00: 00 Yes [id number] GERD 1 tablet BEDTIME 1 tablet BEDTIME (route: oral) Med Classific ation: Gastroint estinal Therapy Agents Pepcid 20 mg tablet 2021-08 00:00: 00 Yes [id number] GERD 1 tablet 2 TIMES DAILY 1 tablet 2 TIMES DAILY (route: oral) Med Classific ation: Gastroint estinal Therapy Agents sertraline 150 mg capsule 2020-08 00:00: 00 Yes [id number] MOOD 1 capsule DAILY 1 capsule DAILY (route: oral) Med Classific ation: Central Nervous System Agents valsartan 160 mg tablet 2021-08 00:00: 00 02-02 23:59 :00 No [id number] HEART 1 tablet DAILY 1 tablet DAILY (route: oral) Med Classific ation: Cardiovas cular Therapy Agents cyclobenzap rine 10 mg tablet 09-10 00:00: 00 02-02 23:59 :00 No [id number] PAIN 1 tablet 3 TIMES DAILY 1 tablet 3 TIMES DAILY (route: oral) Med Classific ation: Locomotor System Aspirin Childrens 81 mg chewable tablet 02-02 00:00: 00 Yes [id number] HEART 1 tablet DAILY 1 tablet DAILY (route: oral) Med Classific ation: Hematolog ical Agents atorvastati n 20 mg tablet 02-02 00:00: 00 Yes [id number] CHOLESTEROL 1 tablet DAILY 1 tablet DAILY (route: oral) Med Classific ation: Cardiovas cular Therapy Agents cetirizine 10 mg tablet 02-02 00:00: 00 Yes [id number] ALLERGIES 1 tablet BEDTIME 1 tablet BEDTIME (route: oral) Med Classific ation: Respirato ry Therapy Agents Eliquis 5 mg tablet 02-02 00:00: 00 Yes [id number] HEART 1 tablet 2 TIMES DAILY 1 tablet 2 TIMES DAILY (route: oral) Med Classific ation: Hematolog ical Agents Jardiance 10 mg tablet 02-02 00:00: 00 Yes [id number] DIABETES 1 tablet DAILY 1 tablet DAILY (route: oral) Med Classific ation: Endocrine metoprolol succinate ER 25 mg tablet,exte nded release 24 hr 02-02 00:00: 00 Yes [id number] HEART 1 tablet DAILY 1 tablet DAILY [...] ALBERTO SZYMANSKI RN TO OBSERVE AND ASSESS, GROUNDMAN/LINEMAN/CUT OFF TENDER GLASS TO OBSERVE FOR RISK FOR FALLS AND INSTRUCT IN FALL PREVENTION, HOME SAFETY, MEDICATION MANAGEMENT, INFECTION PREVENTION, AND NUTRITION MANAGEMENT. RN/GROUNDMAN/LINEMAN/CUT OFF TENDER GLASS NURSE MAY PERFORM O2 SATURATION LEVEL ON ADMISSION AND PRN FOR RN TO ASSESS/GROUNDMAN/LINEMAN TO OBSERVE PATIENT, WITH NOTIFICATION TO THE PHYSICIAN IF SATURATION IS 90% IN THE ABSENCE OF MORE SPECIFIC PARAMETERS FROM THE PHYSICIAN. AGENCY MAY PERFORM A RESUMPTION OF CARE VISIT FOLLOWING ANY HOSPITAL ADMISSION. RN/GROUNDMAN/LINEMAN/CUT OFF TENDER GLASS TO MONITOR CO-MORBID CONDITIONS LISTED ON THE PLAN OF CARE AND ANY NEW CONDITIONS THAT PRESENT THEMSELVES DURING THIS EPISODE TO IDENTIFY CHANGES AND INTERVENE TO MINIMIZE COMPLICATIONS. [code = RN TO OBSERVE, ASSESS, EVALUATE, AND DEVELOP AN INDIVIDUALIZED PLAN OF CARE. AGENCY MAY ACCEPT ORDERS FROM CONSULTING PHYSICIANS ALBERTO SZYMANSKI RN TO OBSERVE AND ASSESS, GROUNDMAN/LINEMAN/CUT OFF TENDER GLASS TO OBSERVE FOR RISK FOR FALLS AND INSTRUCT IN FALL PREVENTION, HOME SAFETY, MEDICATION MANAGEMENT, INFECTION PREVENTION, AND NUTRITION MANAGEMENT. RN/GROUNDMAN/LINEMAN/CUT OFF TENDER GLASS NURSE MAY PERFORM O2 SATURATION LEVEL ON ADMISSION AND PRN FOR RN TO ASSESS/GROUNDMAN/LINEMAN TO OBSERVE PATIENT, WITH NOTIFICATION TO THE PHYSICIAN IF SATURATION IS 90% IN THE ABSENCE OF MORE SPECIFIC PARAMETERS FROM THE PHYSICIAN. AGENCY MAY PERFORM A RESUMPTION OF CARE VISIT FOLLOWING ANY HOSPITAL ADMISSION. RN/GROUNDMAN/LINEMAN/CUT OFF TENDER GLASS TO MONITOR CO-MORBID CONDITIONS LISTED ON THE PLAN OF CARE AND ANY NEW CONDITIONS THAT PRESENT THEMSELVES DURING THIS EPISODE TO IDENTIFY CHANGES AND INTERVENE TO MINIMIZE COMPLICATIONS.] Future Scheduled Test MEDICATION MANAGEMENT; RN/GROUNDMAN/LINEMAN/CUT OFF TENDER GLASS TO REVIEW MEDICATIONS FOR INTERACTIONS, EFFECTIVENESS OF DRUG THERAPY, AND SIGNS/SYMPTOMS OF ADVERSE REACTIONS. MAY INSTRUCT AND REINFORCE MEDICATION TEACHING RELATED TO THE USE OF MEDICATIONS, DOSAGE, FREQUENCY, PURPOSE, SIDE EFFECTS, AND TO REPORT COMPLICATIONS. [code = MEDICATION MANAGEMENT; RN/GROUNDMAN/LINEMAN/CUT OFF TENDER GLASS TO REVIEW MEDICATIONS FOR INTERACTIONS, EFFECTIVENESS OF DRUG THERAPY, AND SIGNS/SYMPTOMS OF ADVERSE REACTIONS. MAY INSTRUCT AND REINFORCE MEDICATION TEACHING RELATED TO THE USE OF MEDICATIONS, DOSAGE, FREQUENCY, PURPOSE, SIDE EFFECTS, AND TO REPORT COMPLICATIONS.] Future Scheduled Test RESPIRATOR Y SYSTEM MANAGEMENT; RN TO ASSESS AND TEACH, GROUNDMAN/LINEMAN/CUT OFF TENDER GLASS TO OBSERVE AND TEACH RELATED TO ALTERED RESPIRATORY STATUS TO MINIMIZE COMPLICATIONS AND REDUCE HOSPITALIZATION. [code = RESPIRATORY SYSTEM MANAGEMENT; RN TO ASSESS AND TEACH, GROUNDMAN/LINEMAN/CUT OFF TENDER GLASS TO OBSERVE AND TEACH RELATED TO ALTERED RESPIRATORY STATUS TO MINIMIZE COMPLICATIONS AND REDUCE HOSPITALIZATION.] Future Scheduled Test COPD MANAG EMENT; RN TO ASSESS AND TEACH, GROUNDMAN/LINEMAN/CUT OFF TENDER GLASS TO OBSERVE AND TEACH SIGNS/SYMPTOMS OF COPD EXACERBATION AND PROVIDE EARLY INTERVENTIONS TO MINIMIZE RISK OF HOSPITALIZATION. RN/GROUNDMAN/LINEMAN/CUT OFF TENDER GLASS TO INSTRUCT ON SELF-CARE MANAGEMENT INCLUDING BREATHING TECHNIQUES, AIRWAY CLEARANCE, AND PROPER USE OF COPD MEDICATIONS. RN TO ASSESS AND TEACH, GROUNDMAN/LINEMAN/CUT OFF TENDER GLASS TO OBSERVE AND TEACH PATIENT/CAREGIVER ABILITY TO MONITOR AND RECORD VITAL SIGNS INCLUDING PULSE OXIMETRY AND BLOOD PRESSURE. PULSE OXIMETER AND BP MONITOR TO BE PROVIDED IF NEEDED [code = COPD MANAGEMENT; RN TO ASSESS AND TEACH, GROUNDMAN/LINEMAN/CUT OFF TENDER GLASS TO OBSERVE AND TEACH SIGNS/SYMPTOMS OF COPD EXACERBATION AND PROVIDE EARLY INTERVENTIONS TO MINIMIZE RISK OF HOSPITALIZATION. RN/GROUNDMAN/LINEMAN/CUT OFF TENDER GLASS TO INSTRUCT ON SELF-CARE MANAGEMENT INCLUDING BREATHING TECHNIQUES, AIRWAY CLEARANCE, AND PROPER USE OF COPD MEDICATIONS. RN TO ASSESS AND TEACH, GROUNDMAN/LINEMAN/CUT OFF TENDER GLASS TO OBSERVE AND TEACH PATIENT/CAREGIVER ABILITY TO MONITOR AND RECORD VITAL SIGNS INCLUDING PULSE OXIMETRY AND BLOOD PRESSURE. PULSE OXIMETER AND BP MONITOR TO BE PROVIDED IF NEEDED] Future Scheduled Test OXYGEN THE RAPY; RN/GROUNDMAN/LINEMAN/CUT OFF TENDER GLASS TO INSTRUCT ON OXYGEN MANAGEMENT INCLUDING: ADMINISTRATION AT 2L/MIN VIA CONTINUOUS/PRN FOR , CARE OF EQUIPMENT AND SAFETY. [code = OXYGEN THERAPY; RN/GROUNDMAN/LINEMAN/CUT OFF TENDER GLASS TO INSTRUCT ON OXYGEN MANAGEMENT INCLUDING: ADMINISTRATION [...] Scheduled Test PRN VISITS ; NUMBER OF RN/GROUNDMAN/LINEMAN/CUT OFF TENDER GLASS VISITS: 2 RN/GROUNDMAN/LINEMAN/CUT OFF TENDER GLASS TO PERFORM: WOUND EVALUATE FOR THE FOLLOWING REASONS: OBSERVATION [code = PRN VISITS; NUMBER OF RN/GROUNDMAN/LINEMAN/CUT OFF TENDER GLASS VISITS: 2 RN/GROUNDMAN/LINEMAN/CUT OFF TENDER GLASS TO PERFORM: WOUND EVALUATE FOR THE FOLLOWING REASONS: OBSERVATION] Future Scheduled Test RN/GROUNDMAN/LINEMAN/CUT OFF TENDER GLASS TO PERFORM/TEACH ARTERIAL ULCER CARE TO RIGHT AND LEFT LEGS IRRIGATE/CLEANSE WITH WOUND CLEANZER APPLY CALCIUM SILVER ALGINATE SECURE WITH 4XR BORDER GAUZE CHANGE DRESSING EVERY 3 DAYS A WEEK FOR TWO WEEKS THEN 2 DAYS A WEEK TILL EOE DATE AND CHANGE PRN FOR DISLODGED DRESSING OR SOILING BY CAREGIVER AND PT IN BETWEEN NURSING VISITS [code = RN/GROUNDMAN/LINEMAN/CUT OFF TENDER GLASS TO PERFORM/TEACH ARTERIAL ULCER CARE TO RIGHT [...] End Date/Time Encounter Type Admission Type Attending [facility] Care Department Encounter ID Discharge Date Discharge Status Discharge Condition Discharge Reason Percent Goals Met 2025-06-16 00:00:00 2025-06-24 00:00:00 Outpatient [facility] [id number] 2025-06-24 00:00:00 DISCHARGE TO HOME OR SELF CARE INDEPENDEN T IN THE HOME HH - NON COMPLIANT WITH PLAN OF TREATMENT 100.00
--- OUTSIDE RECORDS SUMMARY | 2025-06-23 19:00 | XMS_ITS | Clinical Summary ---
Author Organization Unknown Care Team Providers Care Stone Banker Name Role Phone STEPHON MASTER COOK, ALBERTO Unavailable Unavailable SILVA RN, GALLO Unavailable Unavailable KODY PT, KILEY Unavailable Unavailable ARABELLA DURHAMN, JOSE ENRIQUE Unavailable Unavailable SALAZAR CHILD CARE AIDE, RAMYA Unavailable Unavailabl e ROSSI OT, ROXANE Unavailable Unavailable ROMEL ANGELIQUE/PAUL, MARIEA Unavailable Unavail able Payers Payer Name Policy Type Policy Number Effective Date [facility]pira [facility]ion Date [facility] [id number] Problems Condition Name Condition Details Condition Category [...] 10-30 00:00: 00 11-07 23:59 :00 No [id number] INFECTION Per instruc tions DAILY Per instructio ns DAILY (route: intravenou s) Med Classific ation: Anti-Infe ctive Agents sertraline 100 mg tablet 11-14 00:00: 00 07-05 23:59 :00 No [id number] DEPRESSION 1 tablet DAILY 1 tablet DAILY (route: oral) Med Classific ation: Central Nervous System Agents levothyroxi ne 25 mcg tablet 11-14 00:00: 00 07-05 23:59 :00 No [id number] SUPPLEMENTA L 1 tablet DAILY 1 tablet DAILY (route: oral) Med Classific ation: Endocrine nadolol 40 mg tablet 11-14 00:00: 00 07-05 23:59 :00 No [id number] BP 1 tablet DAILY 1 tablet DAILY (route: oral) Med Classific ation: Cardiovas cular Therapy Agents diltiazem CD 180 mg capsule,ext ended release 24 hr 11-14 00:00: 00 07-05 23:59 :00 No [id number] BP 1 capsule DAILY 1 capsule DAILY (route: oral) Med Classific ation: Cardiovas cular Therapy Agents pantoprazol e 40 mg tablet,matty yed release 11-14 00:00: 00 07-05 23:59 :00 No [id number] STOMACH 1 tablet DAILY 1 tablet DAILY (route: oral) Med Classific ation: Gastroint estinal Therapy Agents famotidine 20 mg tablet 11-14 00:00: 00 07-05 23:59 :00 No [id number] STOMACH Per instruc tions DAILY Per instructio ns DAILY (route: oral) Med Classific ation: Gastroint estinal Therapy Agents sertraline 50 mg tablet 11-14 00:00: 00 07-05 23:59 :00 No [id number] ANXIETY 1 tablet DAILY 1 tablet DAILY (route: oral) Med Classific ation: Central Nervous System Agents gabapentin 100 mg capsule 11-14 00:00: 00 01-09 23:59 :00 No [id number] NERVE PAIN 1 capsule 2 TIMES DAILY 1 capsule 2 TIMES DAILY (route: oral) Med Classific ation: Central Nervous System Agents buspirone 7.5 mg tablet 11-14 00:00: 00 07-05 23:59 :00 No [id number] ANXIETY 1 tablet DAILY 1 tablet DAILY (route: oral) Med Classific ation: Central Nervous System Agents mirtazapine 15 mg tablet 11-14 00:00: 00 07-05 23:59 :00 No [id number] SLEEP 1 tablet 2 TIMES A WEEK 1 tablet 2 TIMES A WEEK (route: oral) Med Classific ation: Central Nervous System Agents cefdinir 300 mg capsule 01-02 00:00: 00 01-03 23:59 :00 No [id number] for cellulits/ infection to leg 1 capsule 2 TIMES DAILY 1 capsule 2 TIMES DAILY (route: oral) Med Classific ation: Anti-Infe ctive Agents Breo Ellipta 100 mcg-25 mcg/dose powder for inhalation 2021-08 00:00: 00 07-05 23:59 :00 No [id number] LUNGS 1 inhalat ion DAILY 1 inhalation DAILY (route: inhalation ) Med Classific ation: Respirato ry Therapy Agents nystatin 100,000 unit/gram topical powder 2023-08 00:00: 00 Yes [id number] UNDER BREAST AND ABDOMEN 1 unit 4 TIMES DAILY 1 unit 4 TIMES DAILY (route: topical) Med Classific ation: Dermatolo gical oxygen gas for inhalation 2023-08 00:00: 00 Yes [id number] SOA 2 Liter O2 - CONTINUOUS 2 Liter O2 - CONTINUOUS (route: inhalation ) Med Classific ation: Medical Supplies and Durable Medical Equipment (DME) bumetanide 1 mg tablet 2023-08 00:00: 00 Yes [id number] WATER PILL 1 tablet DAILY 1 tablet DAILY (route: oral) Med Classific ation: Cardiovas cular Therapy Agents buspirone 7.5 mg tablet 2020-08 00:00: 00 Yes [id number] MOOD 1 tablet 2 TIMES DAILY 1 tablet 2 TIMES DAILY (route: oral) Med Classific ation: Central Nervous System Agents Gemtesa 75 mg tablet 2020-08 00:00: 00 Yes [id number] URINARY 1 tablet DAILY 1 tablet DAILY (route: oral) Med Classific ation: Genitouri nary Therapy levothyroxi ne 25 mcg tablet 2020-08 00:00: 00 Yes [id number] THYROID 1 tablet DAILY 1 tablet DAILY (route: oral) Med Classific ation: Endocrine meloxicam 7.5 mg tablet 2020-08 00:00: 00 02-02 23:59 :00 No [id number] PAIN 1 tablet DAILY 1 tablet DAILY (route: oral) Med Classific ation: Analgesic , Anti-infl ammatory or Antipyret ic mirtazapine 15 mg tablet 2021-08 00:00: 00 Yes [id number] RLS 1 tablet BEDTIME 1 tablet BEDTIME (route: oral) Med Classific ation: Central Nervous System Agents pantoprazol e 40 mg tablet,matty yed release 2020-08 00:00: 00 Yes [id number] GERD 1 tablet BEDTIME 1 tablet BEDTIME (route: oral) Med Classific ation: Gastroint estinal Therapy Agents Pepcid 20 mg tablet 2021-08 00:00: 00 Yes [id number] GERD 1 tablet 2 TIMES DAILY 1 tablet 2 TIMES DAILY (route: oral) Med Classific ation: Gastroint estinal Therapy Agents sertraline 150 mg capsule 2020-08 00:00: 00 Yes [id number] MOOD 1 capsule DAILY 1 capsule DAILY (route: oral) Med Classific ation: Central Nervous System Agents valsartan 160 mg tablet 2021-08 00:00: 00 02-02 23:59 :00 No [id number] HEART 1 tablet DAILY 1 tablet DAILY (route: oral) Med Classific ation: Cardiovas cular Therapy Agents cyclobenzap rine 10 mg tablet 09-10 00:00: 00 02-02 23:59 :00 No [id number] PAIN 1 tablet 3 TIMES DAILY 1 tablet 3 TIMES DAILY (route: oral) Med Classific ation: Locomotor System Aspirin Childrens 81 mg chewable tablet 02-02 00:00: 00 Yes [id number] HEART 1 tablet DAILY 1 tablet DAILY (route: oral) Med Classific ation: Hematolog ical Agents atorvastati n 20 mg tablet 02-02 00:00: 00 Yes [id number] CHOLESTEROL 1 tablet DAILY 1 tablet DAILY (route: oral) Med Classific ation: Cardiovas cular Therapy Agents cetirizine 10 mg tablet 02-02 00:00: 00 Yes [id number] ALLERGIES 1 tablet BEDTIME 1 tablet BEDTIME (route: oral) Med Classific ation: Respirato ry Therapy Agents Eliquis 5 mg tablet 02-02 00:00: 00 Yes [id number] HEART 1 tablet 2 TIMES DAILY 1 tablet 2 TIMES DAILY (route: oral) Med Classific ation: Hematolog ical Agents Jardiance 10 mg tablet 02-02 00:00: 00 Yes [id number] DIABETES 1 tablet DAILY 1 tablet DAILY (route: oral) Med Classific ation: Endocrine metoprolol succinate ER 25 mg tablet,exte nded release 24 hr 02-02 00:00: 00 Yes [id number] HEART 1 tablet DAILY 1 tablet DAILY [...] ALBERTO SZYMANSKI RN TO OBSERVE AND ASSESS, CLINICAL RESEARCH TECHNICIAN/LANGUAGE ASSISTANT TO OBSERVE FOR RISK FOR FALLS AND INSTRUCT IN FALL PREVENTION, HOME SAFETY, MEDICATION MANAGEMENT, INFECTION PREVENTION, AND NUTRITION MANAGEMENT. RN/CLINICAL RESEARCH TECHNICIAN/LANGUAGE ASSISTANT NURSE MAY PERFORM O2 SATURATION LEVEL ON ADMISSION AND PRN FOR RN TO ASSESS/CLINICAL RESEARCH TECHNICIAN TO OBSERVE PATIENT, WITH NOTIFICATION TO THE PHYSICIAN IF SATURATION IS 90% IN THE ABSENCE OF MORE SPECIFIC PARAMETERS FROM THE PHYSICIAN. AGENCY MAY PERFORM A RESUMPTION OF CARE VISIT FOLLOWING ANY HOSPITAL ADMISSION. RN/CLINICAL RESEARCH TECHNICIAN/LANGUAGE ASSISTANT TO MONITOR CO-MORBID CONDITIONS LISTED ON THE PLAN OF CARE AND ANY NEW CONDITIONS THAT PRESENT THEMSELVES DURING THIS EPISODE TO IDENTIFY CHANGES AND INTERVENE TO MINIMIZE COMPLICATIONS. [code = RN TO OBSERVE, ASSESS, EVALUATE, AND DEVELOP AN INDIVIDUALIZED PLAN OF CARE. AGENCY MAY ACCEPT ORDERS FROM CONSULTING PHYSICIANS ALBERTO SZYMANSKI RN TO OBSERVE AND ASSESS, CLINICAL RESEARCH TECHNICIAN/LANGUAGE ASSISTANT TO OBSERVE FOR RISK FOR FALLS AND INSTRUCT IN FALL PREVENTION, HOME SAFETY, MEDICATION MANAGEMENT, INFECTION PREVENTION, AND NUTRITION MANAGEMENT. RN/CLINICAL RESEARCH TECHNICIAN/LANGUAGE ASSISTANT NURSE MAY PERFORM O2 SATURATION LEVEL ON ADMISSION AND PRN FOR RN TO ASSESS/CLINICAL RESEARCH TECHNICIAN TO OBSERVE PATIENT, WITH NOTIFICATION TO THE PHYSICIAN IF SATURATION IS 90% IN THE ABSENCE OF MORE SPECIFIC PARAMETERS FROM THE PHYSICIAN. AGENCY MAY PERFORM A RESUMPTION OF CARE VISIT FOLLOWING ANY HOSPITAL ADMISSION. RN/CLINICAL RESEARCH TECHNICIAN/LANGUAGE ASSISTANT TO MONITOR CO-MORBID CONDITIONS LISTED ON THE PLAN OF CARE AND ANY NEW CONDITIONS THAT PRESENT THEMSELVES DURING THIS EPISODE TO IDENTIFY CHANGES AND INTERVENE TO MINIMIZE COMPLICATIONS.] Future Scheduled Test MEDICATION MANAGEMENT; RN/CLINICAL RESEARCH TECHNICIAN/LANGUAGE ASSISTANT TO REVIEW MEDICATIONS FOR INTERACTIONS, EFFECTIVENESS OF DRUG THERAPY, AND SIGNS/SYMPTOMS OF ADVERSE REACTIONS. MAY INSTRUCT AND REINFORCE MEDICATION TEACHING RELATED TO THE USE OF MEDICATIONS, DOSAGE, FREQUENCY, PURPOSE, SIDE EFFECTS, AND TO REPORT COMPLICATIONS. [code = MEDICATION MANAGEMENT; RN/CLINICAL RESEARCH TECHNICIAN/LANGUAGE ASSISTANT TO REVIEW MEDICATIONS FOR INTERACTIONS, EFFECTIVENESS OF DRUG THERAPY, AND SIGNS/SYMPTOMS OF ADVERSE REACTIONS. MAY INSTRUCT AND REINFORCE MEDICATION TEACHING RELATED TO THE USE OF MEDICATIONS, DOSAGE, FREQUENCY, PURPOSE, SIDE EFFECTS, AND TO REPORT COMPLICATIONS.] Future Scheduled Test RESPIRATOR Y SYSTEM MANAGEMENT; RN TO ASSESS AND TEACH, CLINICAL RESEARCH TECHNICIAN/LANGUAGE ASSISTANT TO OBSERVE AND TEACH RELATED TO ALTERED RESPIRATORY STATUS TO MINIMIZE COMPLICATIONS AND REDUCE HOSPITALIZATION. [code = RESPIRATORY SYSTEM MANAGEMENT; RN TO ASSESS AND TEACH, CLINICAL RESEARCH TECHNICIAN/LANGUAGE ASSISTANT TO OBSERVE AND TEACH RELATED TO ALTERED RESPIRATORY STATUS TO MINIMIZE COMPLICATIONS AND REDUCE HOSPITALIZATION.] Future Scheduled Test COPD MANAG EMENT; RN TO ASSESS AND TEACH, CLINICAL RESEARCH TECHNICIAN/LANGUAGE ASSISTANT TO OBSERVE AND TEACH SIGNS/SYMPTOMS OF COPD EXACERBATION AND PROVIDE EARLY INTERVENTIONS TO MINIMIZE RISK OF HOSPITALIZATION. RN/CLINICAL RESEARCH TECHNICIAN/LANGUAGE ASSISTANT TO INSTRUCT ON SELF-CARE MANAGEMENT INCLUDING BREATHING TECHNIQUES, AIRWAY CLEARANCE, AND PROPER USE OF COPD MEDICATIONS. RN TO ASSESS AND TEACH, CLINICAL RESEARCH TECHNICIAN/LANGUAGE ASSISTANT TO OBSERVE AND TEACH PATIENT/CAREGIVER ABILITY TO MONITOR AND RECORD VITAL SIGNS INCLUDING PULSE OXIMETRY AND BLOOD PRESSURE. PULSE OXIMETER AND BP MONITOR TO BE PROVIDED IF NEEDED [code = COPD MANAGEMENT; RN TO ASSESS AND TEACH, CLINICAL RESEARCH TECHNICIAN/LANGUAGE ASSISTANT TO OBSERVE AND TEACH SIGNS/SYMPTOMS OF COPD EXACERBATION AND PROVIDE EARLY INTERVENTIONS TO MINIMIZE RISK OF HOSPITALIZATION. RN/CLINICAL RESEARCH TECHNICIAN/LANGUAGE ASSISTANT TO INSTRUCT ON SELF-CARE MANAGEMENT INCLUDING BREATHING TECHNIQUES, AIRWAY CLEARANCE, AND PROPER USE OF COPD MEDICATIONS. RN TO ASSESS AND TEACH, CLINICAL RESEARCH TECHNICIAN/LANGUAGE ASSISTANT TO OBSERVE AND TEACH PATIENT/CAREGIVER ABILITY TO MONITOR AND RECORD VITAL SIGNS INCLUDING PULSE OXIMETRY AND BLOOD PRESSURE. PULSE OXIMETER AND BP MONITOR TO BE PROVIDED IF NEEDED] Future Scheduled Test OXYGEN THE RAPY; RN/CLINICAL RESEARCH TECHNICIAN/LANGUAGE ASSISTANT TO INSTRUCT ON OXYGEN MANAGEMENT INCLUDING: ADMINISTRATION AT 2L/MIN VIA CONTINUOUS/PRN FOR , CARE OF EQUIPMENT AND SAFETY. [code = OXYGEN THERAPY; RN/CLINICAL RESEARCH TECHNICIAN/LANGUAGE ASSISTANT TO INSTRUCT ON OXYGEN MANAGEMENT INCLUDING: ADMINISTRATION [...] Scheduled Test PRN VISITS ; NUMBER OF RN/CLINICAL RESEARCH TECHNICIAN/LANGUAGE ASSISTANT VISITS: 2 RN/CLINICAL RESEARCH TECHNICIAN/LANGUAGE ASSISTANT TO PERFORM: WOUND EVALUATE FOR THE FOLLOWING REASONS: OBSERVATION [code = PRN VISITS; NUMBER OF RN/CLINICAL RESEARCH TECHNICIAN/LANGUAGE ASSISTANT VISITS: 2 RN/CLINICAL RESEARCH TECHNICIAN/LANGUAGE ASSISTANT TO PERFORM: WOUND EVALUATE FOR THE FOLLOWING REASONS: OBSERVATION] Future Scheduled Test RN/CLINICAL RESEARCH TECHNICIAN/LANGUAGE ASSISTANT TO PERFORM/TEACH ARTERIAL ULCER CARE TO RIGHT AND LEFT LEGS IRRIGATE/CLEANSE WITH WOUND CLEANZER APPLY CALCIUM SILVER ALGINATE SECURE WITH 4XR BORDER GAUZE CHANGE DRESSING EVERY 3 DAYS A WEEK FOR TWO WEEKS THEN 2 DAYS A WEEK TILL EOE DATE AND CHANGE PRN FOR DISLODGED DRESSING OR SOILING BY CAREGIVER AND PT IN BETWEEN NURSING VISITS [code = RN/CLINICAL RESEARCH TECHNICIAN/LANGUAGE ASSISTANT TO PERFORM/TEACH ARTERIAL ULCER CARE TO RIGHT [...] 2025-06-16 00:00:00 2025-06-24 00:00:00 Outpatient GALLO [facility]SE[facility] [id number] 2025-06-24 00:00:00 DISCHARGE TO HOME OR SELF CARE INDEPENDEN T IN THE HOME HH - NON COMPLIANT WITH PLAN OF TREATMENT 100.00
--- OUTSIDE RECORDS SUMMARY | 2025-06-23 19:00 | XMS_ITS | Clinical Summary ---
Author Organization Unknown Care Team Providers Care Production Maintenance Mechanic Name Role Phone [employer] COMPUTER SYSTEM VALIDATION SPECIALIST, ALBERTO Unavailable Unavailable SILVA RN, GALLO Unavailable Unavailable KODY PT, IKLEY Unavailable Unavailable ARABELLA DURHAMN, JOSE ENRIQUE Unavailable Unavailable SALAZAR PICKLE PROCESSOR, RAMYA Unavailable Unavailabl e ROSSI OT, ROXANE Unavailable Unavailable ROMEL ANGELIQUE/PAUL, MARIEA Unavailable Unavail able Payers Payer Name Policy Type Policy Number Effective Date Expira tion Date [facility] [id number] Problems Condition Name Condition Details Condition Category [...] 10-30 00:00: 00 11-07 23:59 :00 No [id number] INFECTION Per instruc tions DAILY Per instructio ns DAILY (route: intravenou s) Med Classific ation: Anti-Infe ctive Agents sertraline 100 mg tablet 11-14 00:00: 00 07-05 23:59 :00 No [id number] DEPRESSION 1 tablet DAILY 1 tablet DAILY (route: oral) Med Classific ation: Central Nervous System Agents levothyroxi ne 25 mcg tablet 11-14 00:00: 00 07-05 23:59 :00 No [id number] SUPPLEMENTA L 1 tablet DAILY 1 tablet DAILY (route: oral) Med Classific ation: Endocrine nadolol 40 mg tablet 11-14 00:00: 00 07-05 23:59 :00 No [id number] BP 1 tablet DAILY 1 tablet DAILY (route: oral) Med Classific ation: Cardiovas cular Therapy Agents diltiazem CD 180 mg capsule,ext ended release 24 hr 11-14 00:00: 00 07-05 23:59 :00 No [id number] BP 1 capsule DAILY 1 capsule DAILY (route: oral) Med Classific ation: Cardiovas cular Therapy Agents pantoprazol e 40 mg tablet,matty yed release 11-14 00:00: 00 07-05 23:59 :00 No [id number] STOMACH 1 tablet DAILY 1 tablet DAILY (route: oral) Med Classific ation: Gastroint estinal Therapy Agents famotidine 20 mg tablet 11-14 00:00: 00 07-05 23:59 :00 No [id number] STOMACH Per instruc tions DAILY Per instructio ns DAILY (route: oral) Med Classific ation: Gastroint estinal Therapy Agents sertraline 50 mg tablet 11-14 00:00: 00 07-05 23:59 :00 No [id number] ANXIETY 1 tablet DAILY 1 tablet DAILY (route: oral) Med Classific ation: Central Nervous System Agents gabapentin 100 mg capsule 11-14 00:00: 00 01-09 23:59 :00 No [id number] NERVE PAIN 1 capsule 2 TIMES DAILY 1 capsule 2 TIMES DAILY (route: oral) Med Classific ation: Central Nervous System Agents buspirone 7.5 mg tablet 11-14 00:00: 00 07-05 23:59 :00 No [id number] ANXIETY 1 tablet DAILY 1 tablet DAILY (route: oral) Med Classific ation: Central Nervous System Agents mirtazapine 15 mg tablet 11-14 00:00: 00 07-05 23:59 :00 No [id number] SLEEP 1 tablet 2 TIMES A WEEK 1 tablet 2 TIMES A WEEK (route: oral) Med Classific ation: Central Nervous System Agents cefdinir 300 mg capsule 01-02 00:00: 00 01-03 23:59 :00 No [id number] for cellulits/ infection to leg 1 capsule 2 TIMES DAILY 1 capsule 2 TIMES DAILY (route: oral) Med Classific ation: Anti-Infe ctive Agents Breo Ellipta 100 mcg-25 mcg/dose powder for inhalation 2021-08 00:00: 00 07-05 23:59 :00 No [id number] LUNGS 1 inhalat ion DAILY 1 inhalation DAILY (route: inhalation ) Med Classific ation: Respirato ry Therapy Agents nystatin 100,000 unit/gram topical powder 2023-08 00:00: 00 Yes [id number] UNDER BREAST AND ABDOMEN 1 unit 4 TIMES DAILY 1 unit 4 TIMES DAILY (route: topical) Med Classific ation: Dermatolo gical oxygen gas for inhalation 2023-08 00:00: 00 Yes [id number] SOA 2 Liter O2 - CONTINUOUS 2 Liter O2 - CONTINUOUS (route: inhalation ) Med Classific ation: Medical Supplies and Durable Medical Equipment (DME) bumetanide 1 mg tablet 2023-08 00:00: 00 Yes [id number] WATER PILL 1 tablet DAILY 1 tablet DAILY (route: oral) Med Classific ation: Cardiovas cular Therapy Agents buspirone 7.5 mg tablet 2020-08 00:00: 00 Yes [id number] MOOD 1 tablet 2 TIMES DAILY 1 tablet 2 TIMES DAILY (route: oral) Med Classific ation: Central Nervous System Agents Gemtesa 75 mg tablet 2020-08 00:00: 00 Yes [id number] URINARY 1 tablet DAILY 1 tablet DAILY (route: oral) Med Classific ation: Genitouri nary Therapy levothyroxi ne 25 mcg tablet 2020-08 00:00: 00 Yes [id number] THYROID 1 tablet DAILY 1 tablet DAILY (route: oral) Med Classific ation: Endocrine meloxicam 7.5 mg tablet 2020-08 00:00: 00 02-02 23:59 :00 No [id number] PAIN 1 tablet DAILY 1 tablet DAILY (route: oral) Med Classific ation: Analgesic , Anti-infl ammatory or Antipyret ic mirtazapine 15 mg tablet 2021-08 00:00: 00 Yes [id number] RLS 1 tablet BEDTIME 1 tablet BEDTIME (route: oral) Med Classific ation: Central Nervous System Agents pantoprazol e 40 mg tablet,matty yed release 2020-08 00:00: 00 Yes [id number] GERD 1 tablet BEDTIME 1 tablet BEDTIME (route: oral) Med Classific ation: Gastroint estinal Therapy Agents Pepcid 20 mg tablet 2021-08 00:00: 00 Yes [id number] GERD 1 tablet 2 TIMES DAILY 1 tablet 2 TIMES DAILY (route: oral) Med Classific ation: Gastroint estinal Therapy Agents sertraline 150 mg capsule 2020-08 00:00: 00 Yes [id number] MOOD 1 capsule DAILY 1 capsule DAILY (route: oral) Med Classific ation: Central Nervous System Agents valsartan 160 mg tablet 2021-08 00:00: 00 02-02 23:59 :00 No [id number] HEART 1 tablet DAILY 1 tablet DAILY (route: oral) Med Classific ation: Cardiovas cular Therapy Agents cyclobenzap rine 10 mg tablet 09-10 00:00: 00 02-02 23:59 :00 No [id number] PAIN 1 tablet 3 TIMES DAILY 1 tablet 3 TIMES DAILY (route: oral) Med Classific ation: Locomotor System Aspirin Childrens 81 mg chewable tablet 02-02 00:00: 00 Yes [id number] HEART 1 tablet DAILY 1 tablet DAILY (route: oral) Med Classific ation: Hematolog ical Agents atorvastati n 20 mg tablet 02-02 00:00: 00 Yes [id number] CHOLESTEROL 1 tablet DAILY 1 tablet DAILY (route: oral) Med Classific ation: Cardiovas cular Therapy Agents cetirizine 10 mg tablet 02-02 00:00: 00 Yes [id number] ALLERGIES 1 tablet BEDTIME 1 tablet BEDTIME (route: oral) Med Classific ation: Respirato ry Therapy Agents Eliquis 5 mg tablet 02-02 00:00: 00 Yes [id number] HEART 1 tablet 2 TIMES DAILY 1 tablet 2 TIMES DAILY (route: oral) Med Classific ation: Hematolog ical Agents Jardiance 10 mg tablet 02-02 00:00: 00 Yes [id number] DIABETES 1 tablet DAILY 1 tablet DAILY (route: oral) Med Classific ation: Endocrine metoprolol succinate ER 25 mg tablet,exte nded release 24 hr 02-02 00:00: 00 Yes [id number] HEART 1 tablet DAILY 1 tablet DAILY [...] ALBERTO SZYMANSKI RN TO OBSERVE AND ASSESS, CAR REPAIRER/LITHOGRAPHERS PRINTER TO OBSERVE FOR RISK FOR FALLS AND INSTRUCT IN FALL PREVENTION, HOME SAFETY, MEDICATION MANAGEMENT, INFECTION PREVENTION, AND NUTRITION MANAGEMENT. RN/CAR REPAIRER/LITHOGRAPHERS PRINTER NURSE MAY PERFORM O2 SATURATION LEVEL ON ADMISSION AND PRN FOR RN TO ASSESS/CAR REPAIRER TO OBSERVE PATIENT, WITH NOTIFICATION TO THE PHYSICIAN IF SATURATION IS 90% IN THE ABSENCE OF MORE SPECIFIC PARAMETERS FROM THE PHYSICIAN. AGENCY MAY PERFORM A RESUMPTION OF CARE VISIT FOLLOWING ANY HOSPITAL ADMISSION. RN/CAR REPAIRER/LITHOGRAPHERS PRINTER TO MONITOR CO-MORBID CONDITIONS LISTED ON THE PLAN OF CARE AND ANY NEW CONDITIONS THAT PRESENT THEMSELVES DURING THIS EPISODE TO IDENTIFY CHANGES AND INTERVENE TO MINIMIZE COMPLICATIONS. [code = RN TO OBSERVE, ASSESS, EVALUATE, AND DEVELOP AN INDIVIDUALIZED PLAN OF CARE. AGENCY MAY ACCEPT ORDERS FROM CONSULTING PHYSICIANS ALBERTO SZYMANSKI RN TO OBSERVE AND ASSESS, CAR REPAIRER/LITHOGRAPHERS PRINTER TO OBSERVE FOR RISK FOR FALLS AND INSTRUCT IN FALL PREVENTION, HOME SAFETY, MEDICATION MANAGEMENT, INFECTION PREVENTION, AND NUTRITION MANAGEMENT. RN/CAR REPAIRER/LITHOGRAPHERS PRINTER NURSE MAY PERFORM O2 SATURATION LEVEL ON ADMISSION AND PRN FOR RN TO ASSESS/CAR REPAIRER TO OBSERVE PATIENT, WITH NOTIFICATION TO THE PHYSICIAN IF SATURATION IS 90% IN THE ABSENCE OF MORE SPECIFIC PARAMETERS FROM THE PHYSICIAN. AGENCY MAY PERFORM A RESUMPTION OF CARE VISIT FOLLOWING ANY HOSPITAL ADMISSION. RN/CAR REPAIRER/LITHOGRAPHERS PRINTER TO MONITOR CO-MORBID CONDITIONS LISTED ON THE PLAN OF CARE AND ANY NEW CONDITIONS THAT PRESENT THEMSELVES DURING THIS EPISODE TO IDENTIFY CHANGES AND INTERVENE TO MINIMIZE COMPLICATIONS.] Future Scheduled Test MEDICATION MANAGEMENT; RN/CAR REPAIRER/LITHOGRAPHERS PRINTER TO REVIEW MEDICATIONS FOR INTERACTIONS, EFFECTIVENESS OF DRUG THERAPY, AND SIGNS/SYMPTOMS OF ADVERSE REACTIONS. MAY INSTRUCT AND REINFORCE MEDICATION TEACHING RELATED TO THE USE OF MEDICATIONS, DOSAGE, FREQUENCY, PURPOSE, SIDE EFFECTS, AND TO REPORT COMPLICATIONS. [code = MEDICATION MANAGEMENT; RN/CAR REPAIRER/LITHOGRAPHERS PRINTER TO REVIEW MEDICATIONS FOR INTERACTIONS, EFFECTIVENESS OF DRUG THERAPY, AND SIGNS/SYMPTOMS OF ADVERSE REACTIONS. MAY INSTRUCT AND REINFORCE MEDICATION TEACHING RELATED TO THE USE OF MEDICATIONS, DOSAGE, FREQUENCY, PURPOSE, SIDE EFFECTS, AND TO REPORT COMPLICATIONS.] Future Scheduled Test RESPIRATOR Y SYSTEM MANAGEMENT; RN TO ASSESS AND TEACH, CAR REPAIRER/LITHOGRAPHERS PRINTER TO OBSERVE AND TEACH RELATED TO ALTERED RESPIRATORY STATUS TO MINIMIZE COMPLICATIONS AND REDUCE HOSPITALIZATION. [code = RESPIRATORY SYSTEM MANAGEMENT; RN TO ASSESS AND TEACH, CAR REPAIRER/LITHOGRAPHERS PRINTER TO OBSERVE AND TEACH RELATED TO ALTERED RESPIRATORY STATUS TO MINIMIZE COMPLICATIONS AND REDUCE HOSPITALIZATION.] Future Scheduled Test COPD MANAG EMENT; RN TO ASSESS AND TEACH, CAR REPAIRER/LITHOGRAPHERS PRINTER TO OBSERVE AND TEACH SIGNS/SYMPTOMS OF COPD EXACERBATION AND PROVIDE EARLY INTERVENTIONS TO MINIMIZE RISK OF HOSPITALIZATION. RN/CAR REPAIRER/LITHOGRAPHERS PRINTER TO INSTRUCT ON SELF-CARE MANAGEMENT INCLUDING BREATHING TECHNIQUES, AIRWAY CLEARANCE, AND PROPER USE OF COPD MEDICATIONS. RN TO ASSESS AND TEACH, CAR REPAIRER/LITHOGRAPHERS PRINTER TO OBSERVE AND TEACH PATIENT/CAREGIVER ABILITY TO MONITOR AND RECORD VITAL SIGNS INCLUDING PULSE OXIMETRY AND BLOOD PRESSURE. PULSE OXIMETER AND BP MONITOR TO BE PROVIDED IF NEEDED [code = COPD MANAGEMENT; RN TO ASSESS AND TEACH, CAR REPAIRER/LITHOGRAPHERS PRINTER TO OBSERVE AND TEACH SIGNS/SYMPTOMS OF COPD EXACERBATION AND PROVIDE EARLY INTERVENTIONS TO MINIMIZE RISK OF HOSPITALIZATION. RN/CAR REPAIRER/LITHOGRAPHERS PRINTER TO INSTRUCT ON SELF-CARE MANAGEMENT INCLUDING BREATHING TECHNIQUES, AIRWAY CLEARANCE, AND PROPER USE OF COPD MEDICATIONS. RN TO ASSESS AND TEACH, CAR REPAIRER/LITHOGRAPHERS PRINTER TO OBSERVE AND TEACH PATIENT/CAREGIVER ABILITY TO MONITOR AND RECORD VITAL SIGNS INCLUDING PULSE OXIMETRY AND BLOOD PRESSURE. PULSE OXIMETER AND BP MONITOR TO BE PROVIDED IF NEEDED] Future Scheduled Test OXYGEN THE RAPY; RN/CAR REPAIRER/LITHOGRAPHERS PRINTER TO INSTRUCT ON OXYGEN MANAGEMENT INCLUDING: ADMINISTRATION AT 2L/MIN VIA CONTINUOUS/PRN FOR , CARE OF EQUIPMENT AND SAFETY. [code = OXYGEN THERAPY; RN/CAR REPAIRER/LITHOGRAPHERS PRINTER TO INSTRUCT ON OXYGEN MANAGEMENT INCLUDING: ADMINISTRATION [...] Scheduled Test PRN VISITS ; NUMBER OF RN/CAR REPAIRER/LITHOGRAPHERS PRINTER VISITS: 2 RN/CAR REPAIRER/LITHOGRAPHERS PRINTER TO PERFORM: WOUND EVALUATE FOR THE FOLLOWING REASONS: OBSERVATION [code = PRN VISITS; NUMBER OF RN/CAR REPAIRER/LITHOGRAPHERS PRINTER VISITS: 2 RN/CAR REPAIRER/LITHOGRAPHERS PRINTER TO PERFORM: WOUND EVALUATE FOR THE FOLLOWING REASONS: OBSERVATION] Future Scheduled Test RN/CAR REPAIRER/LITHOGRAPHERS PRINTER TO PERFORM/TEACH ARTERIAL ULCER CARE TO RIGHT AND LEFT LEGS IRRIGATE/CLEANSE WITH WOUND CLEANZER APPLY CALCIUM SILVER ALGINATE SECURE WITH 4XR BORDER GAUZE CHANGE DRESSING EVERY 3 DAYS A WEEK FOR TWO WEEKS THEN 2 DAYS A WEEK TILL EOE DATE AND CHANGE PRN FOR DISLODGED DRESSING OR SOILING BY CAREGIVER AND PT IN BETWEEN NURSING VISITS [code = RN/CAR REPAIRER/LITHOGRAPHERS PRINTER TO PERFORM/TEACH ARTERIAL ULCER CARE TO RIGHT [...] Date/Time Encounter Type Admission Type Attending [facility] Care Department Encounter ID Discharge Date Discharge Status Discharge Condition Discharge Reason Percent Goals Met 2025-06-16 00:00:00 2025-06-24 00:00:00 Outpatient GALLO MOSELEY [facility] [id number] 2025-06-24 00:00:00 DISCHARGE TO HOME OR SELF CARE INDEPENDEN T IN THE HOME HH - NON COMPLIANT WITH PLAN OF TREATMENT 100.00
--- OUTSIDE RECORDS SUMMARY | 2025-06-23 19:00 | XMS_ITS | Clinical Summary ---
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 TRUCK DRIVER, RAMYA Unavailable Unavailabl e ROSSI OT, ROXANE Unavailable Unavailable ROMEL ANGELIQUE/PAUL, MARIEA Unavailable Unavail able Payers Payer Name Policy Type Policy Number Effective Date Expira tion Date [facility] [id number] Problems Condition Name Condition Details Condition Category [...] 10-30 00:00: 00 11-07 23:59 :00 No [id number] INFECTION Per instruc tions DAILY Per instructio ns DAILY (route: intravenou s) Med Classific ation: Anti-Infe ctive Agents sertraline 100 mg tablet 11-14 00:00: 00 07-05 23:59 :00 No [id number] DEPRESSION 1 tablet DAILY 1 tablet DAILY (route: oral) Med Classific ation: Central Nervous System Agents levothyroxi ne 25 mcg tablet 11-14 00:00: 00 07-05 23:59 :00 No [id number] SUPPLEMENTA L 1 tablet DAILY 1 tablet DAILY (route: oral) Med Classific ation: Endocrine nadolol 40 mg tablet 11-14 00:00: 00 07-05 23:59 :00 No [id number] BP 1 tablet DAILY 1 tablet DAILY (route: oral) Med Classific ation: Cardiovas cular Therapy Agents diltiazem CD 180 mg capsule,ext ended release 24 hr 11-14 00:00: 00 07-05 23:59 :00 No [id number] BP 1 capsule DAILY 1 capsule DAILY (route: oral) Med Classific ation: Cardiovas cular Therapy Agents pantoprazol e 40 mg tablet,matty yed release 11-14 00:00: 00 07-05 23:59 :00 No [id number] STOMACH 1 tablet DAILY 1 tablet DAILY (route: oral) Med Classific ation: Gastroint estinal Therapy Agents famotidine 20 mg tablet 11-14 00:00: 00 07-05 23:59 :00 No [id number] STOMACH Per instruc tions DAILY Per instructio ns DAILY (route: oral) Med Classific ation: Gastroint estinal Therapy Agents sertraline 50 mg tablet 11-14 00:00: 00 07-05 23:59 :00 No [id number] ANXIETY 1 tablet DAILY 1 tablet DAILY (route: oral) Med Classific ation: Central Nervous System Agents gabapentin 100 mg capsule 11-14 00:00: 00 01-09 23:59 :00 No [id number] NERVE PAIN 1 capsule 2 TIMES DAILY 1 capsule 2 TIMES DAILY (route: oral) Med Classific ation: Central Nervous System Agents buspirone 7.5 mg tablet 11-14 00:00: 00 07-05 23:59 :00 No [id number] ANXIETY 1 tablet DAILY 1 tablet DAILY (route: oral) Med Classific ation: Central Nervous System Agents mirtazapine 15 mg tablet 11-14 00:00: 00 07-05 23:59 :00 No [id number] SLEEP 1 tablet 2 TIMES A WEEK 1 tablet 2 TIMES A WEEK (route: oral) Med Classific ation: Central Nervous System Agents cefdinir 300 mg capsule 01-02 00:00: 00 01-03 23:59 :00 No [id number] for cellulits/ infection to leg 1 capsule 2 TIMES DAILY 1 capsule 2 TIMES DAILY (route: oral) Med Classific ation: Anti-Infe ctive Agents Breo Ellipta 100 mcg-25 mcg/dose powder for inhalation 2021-08 00:00: 00 07-05 23:59 :00 No [id number] LUNGS 1 inhalat ion DAILY 1 inhalation DAILY (route: inhalation ) Med Classific ation: Respirato ry Therapy Agents nystatin 100,000 unit/gram topical powder 2023-08 00:00: 00 Yes [id number] UNDER BREAST AND ABDOMEN 1 unit 4 TIMES DAILY 1 unit 4 TIMES DAILY (route: topical) Med Classific ation: Dermatolo gical oxygen gas for inhalation 2023-08 00:00: 00 Yes [id number] SOA 2 Liter O2 - CONTINUOUS 2 Liter O2 - CONTINUOUS (route: inhalation ) Med Classific ation: Medical Supplies and Durable Medical Equipment (DME) bumetanide 1 mg tablet 2023-08 00:00: 00 Yes [id number] WATER PILL 1 tablet DAILY 1 tablet DAILY (route: oral) Med Classific ation: Cardiovas cular Therapy Agents buspirone 7.5 mg tablet 2020-08 00:00: 00 Yes [id number] MOOD 1 tablet 2 TIMES DAILY 1 tablet 2 TIMES DAILY (route: oral) Med Classific ation: Central Nervous System Agents Gemtesa 75 mg tablet 2020-08 00:00: 00 Yes [id number] URINARY 1 tablet DAILY 1 tablet DAILY (route: oral) Med Classific ation: Genitouri nary Therapy levothyroxi ne 25 mcg tablet 2020-08 00:00: 00 Yes [id number] THYROID 1 tablet DAILY 1 tablet DAILY (route: oral) Med Classific ation: Endocrine meloxicam 7.5 mg tablet 2020-08 00:00: 00 02-02 23:59 :00 No [id number] PAIN 1 tablet DAILY 1 tablet DAILY (route: oral) Med Classific ation: Analgesic , Anti-infl ammatory or Antipyret ic mirtazapine 15 mg tablet 2021-08 00:00: 00 Yes [id number] RLS 1 tablet BEDTIME 1 tablet BEDTIME (route: oral) Med Classific ation: Central Nervous System Agents pantoprazol e 40 mg tablet,matty yed release 2020-08 00:00: 00 Yes [id number] GERD 1 tablet BEDTIME 1 tablet BEDTIME (route: oral) Med Classific ation: Gastroint estinal Therapy Agents Pepcid 20 mg tablet 2021-08 00:00: 00 Yes [id number] GERD 1 tablet 2 TIMES DAILY 1 tablet 2 TIMES DAILY (route: oral) Med Classific ation: Gastroint estinal Therapy Agents sertraline 150 mg capsule 2020-08 00:00: 00 Yes [id number] MOOD 1 capsule DAILY 1 capsule DAILY (route: oral) Med Classific ation: Central Nervous System Agents valsartan 160 mg tablet 2021-08 00:00: 00 02-02 23:59 :00 No [id number] HEART 1 tablet DAILY 1 tablet DAILY (route: oral) Med Classific ation: Cardiovas cular Therapy Agents cyclobenzap rine 10 mg tablet 09-10 00:00: 00 02-02 23:59 :00 No [id number] PAIN 1 tablet 3 TIMES DAILY 1 tablet 3 TIMES DAILY (route: oral) Med Classific ation: Locomotor System Aspirin Childrens 81 mg chewable tablet 02-02 00:00: 00 Yes [id number] HEART 1 tablet DAILY 1 tablet DAILY (route: oral) Med Classific ation: Hematolog ical Agents atorvastati n 20 mg tablet 02-02 00:00: 00 Yes [id number] CHOLESTEROL 1 tablet DAILY 1 tablet DAILY (route: oral) Med Classific ation: Cardiovas cular Therapy Agents cetirizine 10 mg tablet 02-02 00:00: 00 Yes [id number] ALLERGIES 1 tablet BEDTIME 1 tablet BEDTIME (route: oral) Med Classific ation: Respirato ry Therapy Agents Eliquis 5 mg tablet 02-02 00:00: 00 Yes [id number] HEART 1 tablet 2 TIMES DAILY 1 tablet 2 TIMES DAILY (route: oral) Med Classific ation: Hematolog ical Agents Jardiance 10 mg tablet 02-02 00:00: 00 Yes [id number] DIABETES 1 tablet DAILY 1 tablet DAILY (route: oral) Med Classific ation: Endocrine metoprolol succinate ER 25 mg tablet,exte nded release 24 hr 02-02 00:00: 00 Yes [id number] HEART 1 tablet DAILY 1 tablet DAILY [...] ALBERTO SZYMANSKI RN TO OBSERVE AND ASSESS, HAND CROCHETER/PATENT LEATHER SORTER TO OBSERVE FOR RISK FOR FALLS AND INSTRUCT IN FALL PREVENTION, HOME SAFETY, MEDICATION MANAGEMENT, INFECTION PREVENTION, AND NUTRITION MANAGEMENT. RN/HAND CROCHETER/PATENT LEATHER SORTER NURSE MAY PERFORM O2 SATURATION LEVEL ON ADMISSION AND PRN FOR RN TO ASSESS/HAND CROCHETER TO OBSERVE PATIENT, WITH NOTIFICATION TO THE PHYSICIAN IF SATURATION IS 90% IN THE ABSENCE OF MORE SPECIFIC PARAMETERS FROM THE PHYSICIAN. AGENCY MAY PERFORM A RESUMPTION OF CARE VISIT FOLLOWING ANY HOSPITAL ADMISSION. RN/HAND CROCHETER/PATENT LEATHER SORTER TO MONITOR CO-MORBID CONDITIONS LISTED ON THE PLAN OF CARE AND ANY NEW CONDITIONS THAT PRESENT THEMSELVES DURING THIS EPISODE TO IDENTIFY CHANGES AND INTERVENE TO MINIMIZE COMPLICATIONS. [code = RN TO OBSERVE, ASSESS, EVALUATE, AND DEVELOP AN INDIVIDUALIZED PLAN OF CARE. AGENCY MAY ACCEPT ORDERS FROM CONSULTING PHYSICIANS ALBERTO SZYMANSKI RN TO OBSERVE AND ASSESS, HAND CROCHETER/PATENT LEATHER SORTER TO OBSERVE FOR RISK FOR FALLS AND INSTRUCT IN FALL PREVENTION, HOME SAFETY, MEDICATION MANAGEMENT, INFECTION PREVENTION, AND NUTRITION MANAGEMENT. RN/HAND CROCHETER/PATENT LEATHER SORTER NURSE MAY PERFORM O2 SATURATION LEVEL ON ADMISSION AND PRN FOR RN TO ASSESS/HAND CROCHETER TO OBSERVE PATIENT, WITH NOTIFICATION TO THE PHYSICIAN IF SATURATION IS 90% IN THE ABSENCE OF MORE SPECIFIC PARAMETERS FROM THE PHYSICIAN. AGENCY MAY PERFORM A RESUMPTION OF CARE VISIT FOLLOWING ANY HOSPITAL ADMISSION. RN/HAND CROCHETER/PATENT LEATHER SORTER TO MONITOR CO-MORBID CONDITIONS LISTED ON THE PLAN OF CARE AND ANY NEW CONDITIONS THAT PRESENT THEMSELVES DURING THIS EPISODE TO IDENTIFY CHANGES AND INTERVENE TO MINIMIZE COMPLICATIONS.] Future Scheduled Test MEDICATION MANAGEMENT; RN/HAND CROCHETER/PATENT LEATHER SORTER TO REVIEW MEDICATIONS FOR INTERACTIONS, EFFECTIVENESS OF DRUG THERAPY, AND SIGNS/SYMPTOMS OF ADVERSE REACTIONS. MAY INSTRUCT AND REINFORCE MEDICATION TEACHING RELATED TO THE USE OF MEDICATIONS, DOSAGE, FREQUENCY, PURPOSE, SIDE EFFECTS, AND TO REPORT COMPLICATIONS. [code = MEDICATION MANAGEMENT; RN/HAND CROCHETER/PATENT LEATHER SORTER TO REVIEW MEDICATIONS FOR INTERACTIONS, EFFECTIVENESS OF DRUG THERAPY, AND SIGNS/SYMPTOMS OF ADVERSE REACTIONS. MAY INSTRUCT AND REINFORCE MEDICATION TEACHING RELATED TO THE USE OF MEDICATIONS, DOSAGE, FREQUENCY, PURPOSE, SIDE EFFECTS, AND TO REPORT COMPLICATIONS.] Future Scheduled Test RESPIRATOR Y SYSTEM MANAGEMENT; RN TO ASSESS AND TEACH, HAND CROCHETER/PATENT LEATHER SORTER TO OBSERVE AND TEACH RELATED TO ALTERED RESPIRATORY STATUS TO MINIMIZE COMPLICATIONS AND REDUCE HOSPITALIZATION. [code = RESPIRATORY SYSTEM MANAGEMENT; RN TO ASSESS AND TEACH, HAND CROCHETER/PATENT LEATHER SORTER TO OBSERVE AND TEACH RELATED TO ALTERED RESPIRATORY STATUS TO MINIMIZE COMPLICATIONS AND REDUCE HOSPITALIZATION.] Future Scheduled Test COPD MANAG EMENT; RN TO ASSESS AND TEACH, HAND CROCHETER/PATENT LEATHER SORTER TO OBSERVE AND TEACH SIGNS/SYMPTOMS OF COPD EXACERBATION AND PROVIDE EARLY INTERVENTIONS TO MINIMIZE RISK OF HOSPITALIZATION. RN/HAND CROCHETER/PATENT LEATHER SORTER TO INSTRUCT ON SELF-CARE MANAGEMENT INCLUDING BREATHING TECHNIQUES, AIRWAY CLEARANCE, AND PROPER USE OF COPD MEDICATIONS. RN TO ASSESS AND TEACH, HAND CROCHETER/PATENT LEATHER SORTER TO OBSERVE AND TEACH PATIENT/CAREGIVER ABILITY TO MONITOR AND RECORD VITAL SIGNS INCLUDING PULSE OXIMETRY AND BLOOD PRESSURE. PULSE OXIMETER AND BP MONITOR TO BE PROVIDED IF NEEDED [code = COPD MANAGEMENT; RN TO ASSESS AND TEACH, HAND CROCHETER/PATENT LEATHER SORTER TO OBSERVE AND TEACH SIGNS/SYMPTOMS OF COPD EXACERBATION AND PROVIDE EARLY INTERVENTIONS TO MINIMIZE RISK OF HOSPITALIZATION. RN/HAND CROCHETER/PATENT LEATHER SORTER TO INSTRUCT ON SELF-CARE MANAGEMENT INCLUDING BREATHING TECHNIQUES, AIRWAY CLEARANCE, AND PROPER USE OF COPD MEDICATIONS. RN TO ASSESS AND TEACH, HAND CROCHETER/PATENT LEATHER SORTER TO OBSERVE AND TEACH PATIENT/CAREGIVER ABILITY TO MONITOR AND RECORD VITAL SIGNS INCLUDING PULSE OXIMETRY AND BLOOD PRESSURE. PULSE OXIMETER AND BP MONITOR TO BE PROVIDED IF NEEDED] Future Scheduled Test OXYGEN THE RAPY; RN/HAND CROCHETER/PATENT LEATHER SORTER TO INSTRUCT ON OXYGEN MANAGEMENT INCLUDING: ADMINISTRATION AT 2L/MIN VIA CONTINUOUS/PRN FOR , CARE OF EQUIPMENT AND SAFETY. [code = OXYGEN THERAPY; RN/HAND CROCHETER/PATENT LEATHER SORTER TO INSTRUCT ON OXYGEN MANAGEMENT INCLUDING: ADMINISTRATION [...] Scheduled Test PRN VISITS ; NUMBER OF RN/HAND CROCHETER/PATENT LEATHER SORTER VISITS: 2 RN/HAND CROCHETER/PATENT LEATHER SORTER TO PERFORM: WOUND EVALUATE FOR THE FOLLOWING REASONS: OBSERVATION [code = PRN VISITS; NUMBER OF RN/HAND CROCHETER/PATENT LEATHER SORTER VISITS: 2 RN/HAND CROCHETER/PATENT LEATHER SORTER TO PERFORM: WOUND EVALUATE FOR THE FOLLOWING REASONS: OBSERVATION] Future Scheduled Test RN/HAND CROCHETER/PATENT LEATHER SORTER TO PERFORM/TEACH ARTERIAL ULCER CARE TO RIGHT AND LEFT LEGS IRRIGATE/CLEANSE WITH WOUND CLEANZER APPLY CALCIUM SILVER ALGINATE SECURE WITH 4XR BORDER GAUZE CHANGE DRESSING EVERY 3 DAYS A WEEK FOR TWO WEEKS THEN 2 DAYS A WEEK TILL EOE DATE AND CHANGE PRN FOR DISLODGED DRESSING OR SOILING BY CAREGIVER AND PT IN BETWEEN NURSING VISITS [code = RN/HAND CROCHETER/PATENT LEATHER SORTER TO PERFORM/TEACH ARTERIAL ULCER CARE TO RIGHT [...] End Date/Time Encounter Type Admission Type Attending [facility] [place] Care Department Encounter ID Discharge Date Discharge Status Discharge Condition Discharge Reason Percent Goals Met 2025-06-16 00:00:00 2025-06-24 00:00:00 Outpatient GALLO [facility]SE[facility] [id number] 2025-06-24 00:00:00 DISCHARGE TO HOME OR SELF CARE INDEPENDEN T IN THE HOME HH - NON COMPLIANT WITH PLAN OF TREATMENT 100.00
--- OUTSIDE RECORDS SUMMARY | 2025-06-23 19:00 | XMS_ITS | Clinical Summary ---
Author Organization Unknown Care Team Providers Care Pan Cleaner Name Role Phone STEPHON CONSTRUCTION LABORER, ALBERTO Unavailable Unavailable SILVA RN, GALLO Unavailable Unavailable KODY PT, KILEY Unavailable Unavailable ARABELLA DURHAMN, JOSE ENRIQUE Unavailable Unavailable SALAZAR POLLUTION CONTROL TECHNICIAN, RAMYA Unavailable Unavailabl e ROSSI OT, ROXANE Unavailable Unavailable ROMEL ANGELIQUE/PAUL, MARIEA Unavailable Unavail able Payers Payer Name Policy Type Policy Number Effective Date Expira tion Date [facility] [id number] Problems Condition Name Condition Details Condition Category [...] 10-30 00:00: 00 11-07 23:59 :00 No [id number] INFECTION Per instruc tions DAILY Per instructio ns DAILY (route: intravenou s) Med Classific ation: Anti-Infe ctive Agents sertraline 100 mg tablet 11-14 00:00: 00 07-05 23:59 :00 No [id number] DEPRESSION 1 tablet DAILY 1 tablet DAILY (route: oral) Med Classific ation: Central Nervous System Agents levothyroxi ne 25 mcg tablet 11-14 00:00: 00 07-05 23:59 :00 No [id number] SUPPLEMENTA L 1 tablet DAILY 1 tablet DAILY (route: oral) Med Classific ation: Endocrine nadolol 40 mg tablet 11-14 00:00: 00 07-05 23:59 :00 No [id number] BP 1 tablet DAILY 1 tablet DAILY (route: oral) Med Classific ation: Cardiovas cular Therapy Agents diltiazem CD 180 mg capsule,ext ended release 24 hr 11-14 00:00: 00 07-05 23:59 :00 No [id number] BP 1 capsule DAILY 1 capsule DAILY (route: oral) Med Classific ation: Cardiovas cular Therapy Agents pantoprazol e 40 mg tablet,matty yed release 11-14 00:00: 00 07-05 23:59 :00 No [id number] STOMACH 1 tablet DAILY 1 tablet DAILY (route: oral) Med Classific ation: Gastroint estinal Therapy Agents famotidine 20 mg tablet 11-14 00:00: 00 07-05 23:59 :00 No [id number] STOMACH Per instruc tions DAILY Per instructio ns DAILY (route: oral) Med Classific ation: Gastroint estinal Therapy Agents sertraline 50 mg tablet 11-14 00:00: 00 07-05 23:59 :00 No [id number] ANXIETY 1 tablet DAILY 1 tablet DAILY (route: oral) Med Classific ation: Central Nervous System Agents gabapentin 100 mg capsule 11-14 00:00: 00 01-09 23:59 :00 No [id number] NERVE PAIN 1 capsule 2 TIMES DAILY 1 capsule 2 TIMES DAILY (route: oral) Med Classific ation: Central Nervous System Agents buspirone 7.5 mg tablet 11-14 00:00: 00 07-05 23:59 :00 No [id number] ANXIETY 1 tablet DAILY 1 tablet DAILY (route: oral) Med Classific ation: Central Nervous System Agents mirtazapine 15 mg tablet 11-14 00:00: 00 07-05 23:59 :00 No [id number] SLEEP 1 tablet 2 TIMES A WEEK 1 tablet 2 TIMES A WEEK (route: oral) Med Classific ation: Central Nervous System Agents cefdinir 300 mg capsule 01-02 00:00: 00 01-03 23:59 :00 No [id number] for cellulits/ infection to leg 1 capsule 2 TIMES DAILY 1 capsule 2 TIMES DAILY (route: oral) Med Classific ation: Anti-Infe ctive Agents Breo Ellipta 100 mcg-25 mcg/dose powder for inhalation 2021-08 00:00: 00 07-05 23:59 :00 No [id number] LUNGS 1 inhalat ion DAILY 1 inhalation DAILY (route: inhalation ) Med Classific ation: Respirato ry Therapy Agents nystatin 100,000 unit/gram topical powder 2023-08 00:00: 00 Yes [id number] UNDER BREAST AND ABDOMEN 1 unit 4 TIMES DAILY 1 unit 4 TIMES DAILY (route: topical) Med Classific ation: Dermatolo gical oxygen gas for inhalation 2023-08 00:00: 00 Yes [id number] SOA 2 Liter O2 - CONTINUOUS 2 Liter O2 - CONTINUOUS (route: inhalation ) Med Classific ation: Medical Supplies and Durable Medical Equipment (DME) bumetanide 1 mg tablet 2023-08 00:00: 00 Yes [id number] WATER PILL 1 tablet DAILY 1 tablet DAILY (route: oral) Med Classific ation: Cardiovas cular Therapy Agents buspirone 7.5 mg tablet 2020-08 00:00: 00 Yes [id number] MOOD 1 tablet 2 TIMES DAILY 1 tablet 2 TIMES DAILY (route: oral) Med Classific ation: Central Nervous System Agents Gemtesa 75 mg tablet 2020-08 00:00: 00 Yes [id number] URINARY 1 tablet DAILY 1 tablet DAILY (route: oral) Med Classific ation: Genitouri nary Therapy levothyroxi ne 25 mcg tablet 2020-08 00:00: 00 Yes [id number] THYROID 1 tablet DAILY 1 tablet DAILY (route: oral) Med Classific ation: Endocrine meloxicam 7.5 mg tablet 2020-08 00:00: 00 02-02 23:59 :00 No [id number] PAIN 1 tablet DAILY 1 tablet DAILY (route: oral) Med Classific ation: Analgesic , Anti-infl ammatory or Antipyret ic mirtazapine 15 mg tablet 2021-08 00:00: 00 Yes [id number] RLS 1 tablet BEDTIME 1 tablet BEDTIME (route: oral) Med Classific ation: Central Nervous System Agents pantoprazol e 40 mg tablet,matty yed release 2020-08 00:00: 00 Yes [id number] GERD 1 tablet BEDTIME 1 tablet BEDTIME (route: oral) Med Classific ation: Gastroint estinal Therapy Agents Pepcid 20 mg tablet 2021-08 00:00: 00 Yes [id number] GERD 1 tablet 2 TIMES DAILY 1 tablet 2 TIMES DAILY (route: oral) Med Classific ation: Gastroint estinal Therapy Agents sertraline 150 mg capsule 2020-08 00:00: 00 Yes [id number] MOOD 1 capsule DAILY 1 capsule DAILY (route: oral) Med Classific ation: Central Nervous System Agents valsartan 160 mg tablet 2021-08 00:00: 00 02-02 23:59 :00 No [id number] HEART 1 tablet DAILY 1 tablet DAILY (route: oral) Med Classific ation: Cardiovas cular Therapy Agents cyclobenzap rine 10 mg tablet 09-10 00:00: 00 02-02 23:59 :00 No [id number] PAIN 1 tablet 3 TIMES DAILY 1 tablet 3 TIMES DAILY (route: oral) Med Classific ation: Locomotor System Aspirin Childrens 81 mg chewable tablet 02-02 00:00: 00 Yes [id number] HEART 1 tablet DAILY 1 tablet DAILY (route: oral) Med Classific ation: Hematolog ical Agents atorvastati n 20 mg tablet 02-02 00:00: 00 Yes [id number] CHOLESTEROL 1 tablet DAILY 1 tablet DAILY (route: oral) Med Classific ation: Cardiovas cular Therapy Agents cetirizine 10 mg tablet 02-02 00:00: 00 Yes [id number] ALLERGIES 1 tablet BEDTIME 1 tablet BEDTIME (route: oral) Med Classific ation: Respirato ry Therapy Agents Eliquis 5 mg tablet 02-02 00:00: 00 Yes [id number] HEART 1 tablet 2 TIMES DAILY 1 tablet 2 TIMES DAILY (route: oral) Med Classific ation: Hematolog ical Agents Jardiance 10 mg tablet 02-02 00:00: 00 Yes [id number] DIABETES 1 tablet DAILY 1 tablet DAILY (route: oral) Med Classific ation: Endocrine metoprolol succinate ER 25 mg tablet,exte nded release 24 hr 02-02 00:00: 00 Yes [id number] HEART 1 tablet DAILY 1 tablet DAILY [...] ALBERTO SZYMANSKI RN TO OBSERVE AND ASSESS, HEMATOLOGY ONCOLOGY CONSULTANT/WINDOW DRESSER TO OBSERVE FOR RISK FOR FALLS AND INSTRUCT IN FALL PREVENTION, HOME SAFETY, MEDICATION MANAGEMENT, INFECTION PREVENTION, AND NUTRITION MANAGEMENT. RN/HEMATOLOGY ONCOLOGY CONSULTANT/WINDOW DRESSER NURSE MAY PERFORM O2 SATURATION LEVEL ON ADMISSION AND PRN FOR RN TO ASSESS/HEMATOLOGY ONCOLOGY CONSULTANT TO OBSERVE PATIENT, WITH NOTIFICATION TO THE PHYSICIAN IF SATURATION IS 90% IN THE ABSENCE OF MORE SPECIFIC PARAMETERS FROM THE PHYSICIAN. AGENCY MAY PERFORM A RESUMPTION OF CARE VISIT FOLLOWING ANY HOSPITAL ADMISSION. RN/HEMATOLOGY ONCOLOGY CONSULTANT/WINDOW DRESSER TO MONITOR CO-MORBID CONDITIONS LISTED ON THE PLAN OF CARE AND ANY NEW CONDITIONS THAT PRESENT THEMSELVES DURING THIS EPISODE TO IDENTIFY CHANGES AND INTERVENE TO MINIMIZE COMPLICATIONS. [code = RN TO OBSERVE, ASSESS, EVALUATE, AND DEVELOP AN INDIVIDUALIZED PLAN OF CARE. AGENCY MAY ACCEPT ORDERS FROM CONSULTING PHYSICIANS ALBERTO SZYMANSKI RN TO OBSERVE AND ASSESS, HEMATOLOGY ONCOLOGY CONSULTANT/WINDOW DRESSER TO OBSERVE FOR RISK FOR FALLS AND INSTRUCT IN FALL PREVENTION, HOME SAFETY, MEDICATION MANAGEMENT, INFECTION PREVENTION, AND NUTRITION MANAGEMENT. RN/HEMATOLOGY ONCOLOGY CONSULTANT/WINDOW DRESSER NURSE MAY PERFORM O2 SATURATION LEVEL ON ADMISSION AND PRN FOR RN TO ASSESS/HEMATOLOGY ONCOLOGY CONSULTANT TO OBSERVE PATIENT, WITH NOTIFICATION TO THE PHYSICIAN IF SATURATION IS 90% IN THE ABSENCE OF MORE SPECIFIC PARAMETERS FROM THE PHYSICIAN. AGENCY MAY PERFORM A RESUMPTION OF CARE VISIT FOLLOWING ANY HOSPITAL ADMISSION. RN/HEMATOLOGY ONCOLOGY CONSULTANT/WINDOW DRESSER TO MONITOR CO-MORBID CONDITIONS LISTED ON THE PLAN OF CARE AND ANY NEW CONDITIONS THAT PRESENT THEMSELVES DURING THIS EPISODE TO IDENTIFY CHANGES AND INTERVENE TO MINIMIZE COMPLICATIONS.] Future Scheduled Test MEDICATION MANAGEMENT; RN/HEMATOLOGY ONCOLOGY CONSULTANT/WINDOW DRESSER TO REVIEW MEDICATIONS FOR INTERACTIONS, EFFECTIVENESS OF DRUG THERAPY, AND SIGNS/SYMPTOMS OF ADVERSE REACTIONS. MAY INSTRUCT AND REINFORCE MEDICATION TEACHING RELATED TO THE USE OF MEDICATIONS, DOSAGE, FREQUENCY, PURPOSE, SIDE EFFECTS, AND TO REPORT COMPLICATIONS. [code = MEDICATION MANAGEMENT; RN/HEMATOLOGY ONCOLOGY CONSULTANT/WINDOW DRESSER TO REVIEW MEDICATIONS FOR INTERACTIONS, EFFECTIVENESS OF DRUG THERAPY, AND SIGNS/SYMPTOMS OF ADVERSE REACTIONS. MAY INSTRUCT AND REINFORCE MEDICATION TEACHING RELATED TO THE USE OF MEDICATIONS, DOSAGE, FREQUENCY, PURPOSE, SIDE EFFECTS, AND TO REPORT COMPLICATIONS.] Future Scheduled Test RESPIRATOR Y SYSTEM MANAGEMENT; RN TO ASSESS AND TEACH, HEMATOLOGY ONCOLOGY CONSULTANT/WINDOW DRESSER TO OBSERVE AND TEACH RELATED TO ALTERED RESPIRATORY STATUS TO MINIMIZE COMPLICATIONS AND REDUCE HOSPITALIZATION. [code = RESPIRATORY SYSTEM MANAGEMENT; RN TO ASSESS AND TEACH, HEMATOLOGY ONCOLOGY CONSULTANT/WINDOW DRESSER TO OBSERVE AND TEACH RELATED TO ALTERED RESPIRATORY STATUS TO MINIMIZE COMPLICATIONS AND REDUCE HOSPITALIZATION.] Future Scheduled Test COPD MANAG EMENT; RN TO ASSESS AND TEACH, HEMATOLOGY ONCOLOGY CONSULTANT/WINDOW DRESSER TO OBSERVE AND TEACH SIGNS/SYMPTOMS OF COPD EXACERBATION AND PROVIDE EARLY INTERVENTIONS TO MINIMIZE RISK OF HOSPITALIZATION. RN/HEMATOLOGY ONCOLOGY CONSULTANT/WINDOW DRESSER TO INSTRUCT ON SELF-CARE MANAGEMENT INCLUDING BREATHING TECHNIQUES, AIRWAY CLEARANCE, AND PROPER USE OF COPD MEDICATIONS. RN TO ASSESS AND TEACH, HEMATOLOGY ONCOLOGY CONSULTANT/WINDOW DRESSER TO OBSERVE AND TEACH PATIENT/CAREGIVER ABILITY TO MONITOR AND RECORD VITAL SIGNS INCLUDING PULSE OXIMETRY AND BLOOD PRESSURE. PULSE OXIMETER AND BP MONITOR TO BE PROVIDED IF NEEDED [code = COPD MANAGEMENT; RN TO ASSESS AND TEACH, HEMATOLOGY ONCOLOGY CONSULTANT/WINDOW DRESSER TO OBSERVE AND TEACH SIGNS/SYMPTOMS OF COPD EXACERBATION AND PROVIDE EARLY INTERVENTIONS TO MINIMIZE RISK OF HOSPITALIZATION. RN/HEMATOLOGY ONCOLOGY CONSULTANT/WINDOW DRESSER TO INSTRUCT ON SELF-CARE MANAGEMENT INCLUDING BREATHING TECHNIQUES, AIRWAY CLEARANCE, AND PROPER USE OF COPD MEDICATIONS. RN TO ASSESS AND TEACH, HEMATOLOGY ONCOLOGY CONSULTANT/WINDOW DRESSER TO OBSERVE AND TEACH PATIENT/CAREGIVER ABILITY TO MONITOR AND RECORD VITAL SIGNS INCLUDING PULSE OXIMETRY AND BLOOD PRESSURE. PULSE OXIMETER AND BP MONITOR TO BE PROVIDED IF NEEDED] Future Scheduled Test OXYGEN THE RAPY; RN/HEMATOLOGY ONCOLOGY CONSULTANT/WINDOW DRESSER TO INSTRUCT ON OXYGEN MANAGEMENT INCLUDING: ADMINISTRATION AT 2L/MIN VIA CONTINUOUS/PRN FOR , CARE OF EQUIPMENT AND SAFETY. [code = OXYGEN THERAPY; RN/HEMATOLOGY ONCOLOGY CONSULTANT/WINDOW DRESSER TO INSTRUCT ON OXYGEN MANAGEMENT INCLUDING: ADMINISTRATION [...] Scheduled Test PRN VISITS ; NUMBER OF RN/HEMATOLOGY ONCOLOGY CONSULTANT/WINDOW DRESSER VISITS: 2 RN/HEMATOLOGY ONCOLOGY CONSULTANT/WINDOW DRESSER TO PERFORM: WOUND EVALUATE FOR THE FOLLOWING REASONS: OBSERVATION [code = PRN VISITS; NUMBER OF RN/HEMATOLOGY ONCOLOGY CONSULTANT/WINDOW DRESSER VISITS: 2 RN/HEMATOLOGY ONCOLOGY CONSULTANT/WINDOW DRESSER TO PERFORM: WOUND EVALUATE FOR THE FOLLOWING REASONS: OBSERVATION] Future Scheduled Test RN/HEMATOLOGY ONCOLOGY CONSULTANT/WINDOW DRESSER TO PERFORM/TEACH ARTERIAL ULCER CARE TO RIGHT AND LEFT LEGS IRRIGATE/CLEANSE WITH WOUND CLEANZER APPLY CALCIUM SILVER ALGINATE SECURE WITH 4XR BORDER GAUZE CHANGE DRESSING EVERY 3 DAYS A WEEK FOR TWO WEEKS THEN 2 DAYS A WEEK TILL EOE DATE AND CHANGE PRN FOR DISLODGED DRESSING OR SOILING BY CAREGIVER AND PT IN BETWEEN NURSING VISITS [code = RN/HEMATOLOGY ONCOLOGY CONSULTANT/WINDOW DRESSER TO PERFORM/TEACH ARTERIAL ULCER CARE TO RIGHT [...] End Date/Time Encounter Type Admission Type Attending [facility] Care Department Encounter ID Discharge Date Discharge Status Discharge Condition Discharge Reason Percent Goals Met 2025-06-16 00:00:00 2025-06-24 00:00:00 Outpatient [facility] [id number] 2025-06-24 00:00:00 DISCHARGE TO HOME OR SELF CARE INDEPENDEN T IN THE HOME HH - NON COMPLIANT WITH PLAN OF TREATMENT 100.00
--- OUTSIDE RECORDS SUMMARY | 2025-06-23 19:00 | XMS_ITS | Clinical Summary ---
Author Organization Unknown Care Team Providers Care Human Resources Officer Name Role Phone STEPHON OUTDOOR EDUCATION TEACHER, ALBERTO Unavailable Unavailable SILVA RN, GALLO Unavailable Unavailable KODY PT, KILEY Unavailable Unavailable ARABELLA DURHAMN, JOSE ENRIQUE Unavailable Unavailable SALAZAR DOCUMENT MANAGEMENT ANALYST, RAMYA Unavailable Unavailabl e ROSSI OT, ROXANE Unavailable Unavailable ROMEL ANGELIQUE/PAUL, MARIEA Unavailable Unavail able Payers Payer Name Policy Type Policy Number Effective Date Expira tion Date [facility] [id number] Problems Condition Name Condition Details Condition Category [...] 10-30 00:00: 00 11-07 23:59 :00 No [id number] INFECTION Per instruc tions DAILY Per instructio ns DAILY (route: intravenou s) Med Classific ation: Anti-Infe ctive Agents sertraline 100 mg tablet 11-14 00:00: 00 07-05 23:59 :00 No [id number] DEPRESSION 1 tablet DAILY 1 tablet DAILY (route: oral) Med Classific ation: Central Nervous System Agents levothyroxi ne 25 mcg tablet 11-14 00:00: 00 07-05 23:59 :00 No [id number] SUPPLEMENTA L 1 tablet DAILY 1 tablet DAILY (route: oral) Med Classific ation: Endocrine nadolol 40 mg tablet 11-14 00:00: 00 07-05 23:59 :00 No [id number] BP 1 tablet DAILY 1 tablet DAILY (route: oral) Med Classific ation: Cardiovas cular Therapy Agents diltiazem CD 180 mg capsule,ext ended release 24 hr 11-14 00:00: 00 07-05 23:59 :00 No [id number] BP 1 capsule DAILY 1 capsule DAILY (route: oral) Med Classific ation: Cardiovas cular Therapy Agents pantoprazol e 40 mg tablet,matty yed release 11-14 00:00: 00 07-05 23:59 :00 No [id number] STOMACH 1 tablet DAILY 1 tablet DAILY (route: oral) Med Classific ation: Gastroint estinal Therapy Agents famotidine 20 mg tablet 11-14 00:00: 00 07-05 23:59 :00 No [id number] STOMACH Per instruc tions DAILY Per instructio ns DAILY (route: oral) Med Classific ation: Gastroint estinal Therapy Agents sertraline 50 mg tablet 11-14 00:00: 00 07-05 23:59 :00 No [id number] ANXIETY 1 tablet DAILY 1 tablet DAILY (route: oral) Med Classific ation: Central Nervous System Agents gabapentin 100 mg capsule 11-14 00:00: 00 01-09 23:59 :00 No [id number] NERVE PAIN 1 capsule 2 TIMES DAILY 1 capsule 2 TIMES DAILY (route: oral) Med Classific ation: Central Nervous System Agents buspirone 7.5 mg tablet 11-14 00:00: 00 07-05 23:59 :00 No [id number] ANXIETY 1 tablet DAILY 1 tablet DAILY (route: oral) Med Classific ation: Central Nervous System Agents mirtazapine 15 mg tablet 11-14 00:00: 00 07-05 23:59 :00 No [id number] SLEEP 1 tablet 2 TIMES A WEEK 1 tablet 2 TIMES A WEEK (route: oral) Med Classific ation: Central Nervous System Agents cefdinir 300 mg capsule 01-02 00:00: 00 01-03 23:59 :00 No [id number] for cellulits/ infection to leg 1 capsule 2 TIMES DAILY 1 capsule 2 TIMES DAILY (route: oral) Med Classific ation: Anti-Infe ctive Agents Breo Ellipta 100 mcg-25 mcg/dose powder for inhalation 2021-08 00:00: 00 07-05 23:59 :00 No [id number] LUNGS 1 inhalat ion DAILY 1 inhalation DAILY (route: inhalation ) Med Classific ation: Respirato ry Therapy Agents nystatin 100,000 unit/gram topical powder 2023-08 00:00: 00 Yes [id number] UNDER BREAST AND ABDOMEN 1 unit 4 TIMES DAILY 1 unit 4 TIMES DAILY (route: topical) Med Classific ation: Dermatolo gical oxygen gas for inhalation 2023-08 00:00: 00 Yes [id number] SOA 2 Liter O2 - CONTINUOUS 2 Liter O2 - CONTINUOUS (route: inhalation ) Med Classific ation: Medical Supplies and Durable Medical Equipment (DME) bumetanide 1 mg tablet 2023-08 00:00: 00 Yes [id number] WATER PILL 1 tablet DAILY 1 tablet DAILY (route: oral) Med Classific ation: Cardiovas cular Therapy Agents buspirone 7.5 mg tablet 2020-08 00:00: 00 Yes [id number] MOOD 1 tablet 2 TIMES DAILY 1 tablet 2 TIMES DAILY (route: oral) Med Classific ation: Central Nervous System Agents Gemtesa 75 mg tablet 2020-08 00:00: 00 Yes [id number] URINARY 1 tablet DAILY 1 tablet DAILY (route: oral) Med Classific ation: Genitouri nary Therapy levothyroxi ne 25 mcg tablet 2020-08 00:00: 00 Yes [id number] THYROID 1 tablet DAILY 1 tablet DAILY (route: oral) Med Classific ation: Endocrine meloxicam 7.5 mg tablet 2020-08 00:00: 00 02-02 23:59 :00 No [id number] PAIN 1 tablet DAILY 1 tablet DAILY (route: oral) Med Classific ation: Analgesic , Anti-infl ammatory or Antipyret ic mirtazapine 15 mg tablet 2021-08 00:00: 00 Yes [id number] RLS 1 tablet BEDTIME 1 tablet BEDTIME (route: oral) Med Classific ation: Central Nervous System Agents pantoprazol e 40 mg tablet,matty yed release 2020-08 00:00: 00 Yes [id number] GERD 1 tablet BEDTIME 1 tablet BEDTIME (route: oral) Med Classific ation: Gastroint estinal Therapy Agents Pepcid 20 mg tablet 2021-08 00:00: 00 Yes [id number] GERD 1 tablet 2 TIMES DAILY 1 tablet 2 TIMES DAILY (route: oral) Med Classific ation: Gastroint estinal Therapy Agents sertraline 150 mg capsule 2020-08 00:00: 00 Yes [id number] MOOD 1 capsule DAILY 1 capsule DAILY (route: oral) Med Classific ation: Central Nervous System Agents valsartan 160 mg tablet 2021-08 00:00: 00 02-02 23:59 :00 No [id number] HEART 1 tablet DAILY 1 tablet DAILY (route: oral) Med Classific ation: Cardiovas cular Therapy Agents cyclobenzap rine 10 mg tablet 09-10 00:00: 00 02-02 23:59 :00 No [id number] PAIN 1 tablet 3 TIMES DAILY 1 tablet 3 TIMES DAILY (route: oral) Med Classific ation: Locomotor System Aspirin Childrens 81 mg chewable tablet 02-02 00:00: 00 Yes [id number] HEART 1 tablet DAILY 1 tablet DAILY (route: oral) Med Classific ation: Hematolog ical Agents atorvastati n 20 mg tablet 02-02 00:00: 00 Yes [id number] CHOLESTEROL 1 tablet DAILY 1 tablet DAILY (route: oral) Med Classific ation: Cardiovas cular Therapy Agents cetirizine 10 mg tablet 02-02 00:00: 00 Yes [id number] ALLERGIES 1 tablet BEDTIME 1 tablet BEDTIME (route: oral) Med Classific ation: Respirato ry Therapy Agents Eliquis 5 mg tablet 02-02 00:00: 00 Yes [id number] HEART 1 tablet 2 TIMES DAILY 1 tablet 2 TIMES DAILY (route: oral) Med Classific ation: Hematolog ical Agents Jardiance 10 mg tablet 02-02 00:00: 00 Yes [id number] DIABETES 1 tablet DAILY 1 tablet DAILY (route: oral) Med Classific ation: Endocrine metoprolol succinate ER 25 mg tablet,exte nded release 24 hr 02-02 00:00: 00 Yes [id number] HEART 1 tablet DAILY 1 tablet DAILY [...] ALBERTO SZYMANSKI RN TO OBSERVE AND ASSESS, SUPERVISOR SAMPLE PREPARATION/MECHANIC DRIVER TO OBSERVE FOR RISK FOR FALLS AND INSTRUCT IN FALL PREVENTION, HOME SAFETY, MEDICATION MANAGEMENT, INFECTION PREVENTION, AND NUTRITION MANAGEMENT. RN/SUPERVISOR SAMPLE PREPARATION/MECHANIC DRIVER NURSE MAY PERFORM O2 SATURATION LEVEL ON ADMISSION AND PRN FOR RN TO ASSESS/SUPERVISOR SAMPLE PREPARATION TO OBSERVE PATIENT, WITH NOTIFICATION TO THE PHYSICIAN IF SATURATION IS 90% IN THE ABSENCE OF MORE SPECIFIC PARAMETERS FROM THE PHYSICIAN. AGENCY MAY PERFORM A RESUMPTION OF CARE VISIT FOLLOWING ANY HOSPITAL ADMISSION. RN/SUPERVISOR SAMPLE PREPARATION/MECHANIC DRIVER TO MONITOR CO-MORBID CONDITIONS LISTED ON THE PLAN OF CARE AND ANY NEW CONDITIONS THAT PRESENT THEMSELVES DURING THIS EPISODE TO IDENTIFY CHANGES AND INTERVENE TO MINIMIZE COMPLICATIONS. [code = RN TO OBSERVE, ASSESS, EVALUATE, AND DEVELOP AN INDIVIDUALIZED PLAN OF CARE. AGENCY MAY ACCEPT ORDERS FROM CONSULTING PHYSICIANS ALBERTO SZYMANSKI RN TO OBSERVE AND ASSESS, SUPERVISOR SAMPLE PREPARATION/MECHANIC DRIVER TO OBSERVE FOR RISK FOR FALLS AND INSTRUCT IN FALL PREVENTION, HOME SAFETY, MEDICATION MANAGEMENT, INFECTION PREVENTION, AND NUTRITION MANAGEMENT. RN/SUPERVISOR SAMPLE PREPARATION/MECHANIC DRIVER NURSE MAY PERFORM O2 SATURATION LEVEL ON ADMISSION AND PRN FOR RN TO ASSESS/SUPERVISOR SAMPLE PREPARATION TO OBSERVE PATIENT, WITH NOTIFICATION TO THE PHYSICIAN IF SATURATION IS 90% IN THE ABSENCE OF MORE SPECIFIC PARAMETERS FROM THE PHYSICIAN. AGENCY MAY PERFORM A RESUMPTION OF CARE VISIT FOLLOWING ANY HOSPITAL ADMISSION. RN/SUPERVISOR SAMPLE PREPARATION/MECHANIC DRIVER TO MONITOR CO-MORBID CONDITIONS LISTED ON THE PLAN OF CARE AND ANY NEW CONDITIONS THAT PRESENT THEMSELVES DURING THIS EPISODE TO IDENTIFY CHANGES AND INTERVENE TO MINIMIZE COMPLICATIONS.] Future Scheduled Test MEDICATION MANAGEMENT; RN/SUPERVISOR SAMPLE PREPARATION/MECHANIC DRIVER TO REVIEW MEDICATIONS FOR INTERACTIONS, EFFECTIVENESS OF DRUG THERAPY, AND SIGNS/SYMPTOMS OF ADVERSE REACTIONS. MAY INSTRUCT AND REINFORCE MEDICATION TEACHING RELATED TO THE USE OF MEDICATIONS, DOSAGE, FREQUENCY, PURPOSE, SIDE EFFECTS, AND TO REPORT COMPLICATIONS. [code = MEDICATION MANAGEMENT; RN/SUPERVISOR SAMPLE PREPARATION/MECHANIC DRIVER TO REVIEW MEDICATIONS FOR INTERACTIONS, EFFECTIVENESS OF DRUG THERAPY, AND SIGNS/SYMPTOMS OF ADVERSE REACTIONS. MAY INSTRUCT AND REINFORCE MEDICATION TEACHING RELATED TO THE USE OF MEDICATIONS, DOSAGE, FREQUENCY, PURPOSE, SIDE EFFECTS, AND TO REPORT COMPLICATIONS.] Future Scheduled Test RESPIRATOR Y SYSTEM MANAGEMENT; RN TO ASSESS AND TEACH, SUPERVISOR SAMPLE PREPARATION/MECHANIC DRIVER TO OBSERVE AND TEACH RELATED TO ALTERED RESPIRATORY STATUS TO MINIMIZE COMPLICATIONS AND REDUCE HOSPITALIZATION. [code = RESPIRATORY SYSTEM MANAGEMENT; RN TO ASSESS AND TEACH, SUPERVISOR SAMPLE PREPARATION/MECHANIC DRIVER TO OBSERVE AND TEACH RELATED TO ALTERED RESPIRATORY STATUS TO MINIMIZE COMPLICATIONS AND REDUCE HOSPITALIZATION.] Future Scheduled Test COPD MANAG EMENT; RN TO ASSESS AND TEACH, SUPERVISOR SAMPLE PREPARATION/MECHANIC DRIVER TO OBSERVE AND TEACH SIGNS/SYMPTOMS OF COPD EXACERBATION AND PROVIDE EARLY INTERVENTIONS TO MINIMIZE RISK OF HOSPITALIZATION. RN/SUPERVISOR SAMPLE PREPARATION/MECHANIC DRIVER TO INSTRUCT ON SELF-CARE MANAGEMENT INCLUDING BREATHING TECHNIQUES, AIRWAY CLEARANCE, AND PROPER USE OF COPD MEDICATIONS. RN TO ASSESS AND TEACH, SUPERVISOR SAMPLE PREPARATION/MECHANIC DRIVER TO OBSERVE AND TEACH PATIENT/CAREGIVER ABILITY TO MONITOR AND RECORD VITAL SIGNS INCLUDING PULSE OXIMETRY AND BLOOD PRESSURE. PULSE OXIMETER AND BP MONITOR TO BE PROVIDED IF NEEDED [code = COPD MANAGEMENT; RN TO ASSESS AND TEACH, SUPERVISOR SAMPLE PREPARATION/MECHANIC DRIVER TO OBSERVE AND TEACH SIGNS/SYMPTOMS OF COPD EXACERBATION AND PROVIDE EARLY INTERVENTIONS TO MINIMIZE RISK OF HOSPITALIZATION. RN/SUPERVISOR SAMPLE PREPARATION/MECHANIC DRIVER TO INSTRUCT ON SELF-CARE MANAGEMENT INCLUDING BREATHING TECHNIQUES, AIRWAY CLEARANCE, AND PROPER USE OF COPD MEDICATIONS. RN TO ASSESS AND TEACH, SUPERVISOR SAMPLE PREPARATION/MECHANIC DRIVER TO OBSERVE AND TEACH PATIENT/CAREGIVER ABILITY TO MONITOR AND RECORD VITAL SIGNS INCLUDING PULSE OXIMETRY AND BLOOD PRESSURE. PULSE OXIMETER AND BP MONITOR TO BE PROVIDED IF NEEDED] Future Scheduled Test OXYGEN THE RAPY; RN/SUPERVISOR SAMPLE PREPARATION/MECHANIC DRIVER TO INSTRUCT ON OXYGEN MANAGEMENT INCLUDING: ADMINISTRATION AT 2L/MIN VIA CONTINUOUS/PRN FOR , CARE OF EQUIPMENT AND SAFETY. [code = OXYGEN THERAPY; RN/SUPERVISOR SAMPLE PREPARATION/MECHANIC DRIVER TO INSTRUCT ON OXYGEN MANAGEMENT INCLUDING: ADMINISTRATION [...] Scheduled Test PRN VISITS ; NUMBER OF RN/SUPERVISOR SAMPLE PREPARATION/MECHANIC DRIVER VISITS: 2 RN/SUPERVISOR SAMPLE PREPARATION/MECHANIC DRIVER TO PERFORM: WOUND EVALUATE FOR THE FOLLOWING REASONS: OBSERVATION [code = PRN VISITS; NUMBER OF RN/SUPERVISOR SAMPLE PREPARATION/MECHANIC DRIVER VISITS: 2 RN/SUPERVISOR SAMPLE PREPARATION/MECHANIC DRIVER TO PERFORM: WOUND EVALUATE FOR THE FOLLOWING REASONS: OBSERVATION] Future Scheduled Test RN/SUPERVISOR SAMPLE PREPARATION/MECHANIC DRIVER TO PERFORM/TEACH ARTERIAL ULCER CARE TO RIGHT AND LEFT LEGS IRRIGATE/CLEANSE WITH WOUND CLEANZER APPLY CALCIUM SILVER ALGINATE SECURE WITH 4XR BORDER GAUZE CHANGE DRESSING EVERY 3 DAYS A WEEK FOR TWO WEEKS THEN 2 DAYS A WEEK TILL EOE DATE AND CHANGE PRN FOR DISLODGED DRESSING OR SOILING BY CAREGIVER AND PT IN BETWEEN NURSING VISITS [code = RN/SUPERVISOR SAMPLE PREPARATION/MECHANIC DRIVER TO PERFORM/TEACH ARTERIAL ULCER CARE TO RIGHT [...] 2025-06-16 00:00:00 2025-06-24 00:00:00 Outpatient [facility] [id number] 2025-06-24 00:00:00 DISCHARGE TO HOME OR SELF CARE INDEPENDEN T IN THE HOME HH - NON COMPLIANT WITH PLAN OF TREATMENT 100.00
--- OUTSIDE RECORDS SUMMARY | 2025-06-23 19:00 | XMS_ITS | Clinical Summary ---
Author Organization Unknown Care Team Providers Care Supervisor Power Reactor Name Role Phone STEPHON MICROBIAL SPECIALIST, ALBERTO Unavailable Unavailable SILVA RN, GALLO Unavailable Unavailable KODY PT, KILEY Unavailable Unavailable ARABELLA DURHAMN, JOSE ENRIQUE Unavailable Unavailable [employer] T[employer] PRINCIPAL, RAMYA Unavailable Unavailabl e ROSSI OT, ROXANE Unavailable Unavailable ROMEL ANGELIQUE/PAUL, MARIEA Unavailable Unavail able Payers Payer Name Policy Type Policy Number Effective Date Expira tion Date [facility] [id number] Problems Condition Name Condition Details Condition Category [...] 10-30 00:00: 00 11-07 23:59 :00 No [id number] INFECTION Per instruc tions DAILY Per instructio ns DAILY (route: intravenou s) Med Classific ation: Anti-Infe ctive Agents sertraline 100 mg tablet 11-14 00:00: 00 07-05 23:59 :00 No [id number] DEPRESSION 1 tablet DAILY 1 tablet DAILY (route: oral) Med Classific ation: Central Nervous System Agents levothyroxi ne 25 mcg tablet 11-14 00:00: 00 07-05 23:59 :00 No [id number] SUPPLEMENTA L 1 tablet DAILY 1 tablet DAILY (route: oral) Med Classific ation: Endocrine nadolol 40 mg tablet 11-14 00:00: 00 07-05 23:59 :00 No [id number] BP 1 tablet DAILY 1 tablet DAILY (route: oral) Med Classific ation: Cardiovas cular Therapy Agents diltiazem CD 180 mg capsule,ext ended release 24 hr 11-14 00:00: 00 07-05 23:59 :00 No [id number] BP 1 capsule DAILY 1 capsule DAILY (route: oral) Med Classific ation: Cardiovas cular Therapy Agents pantoprazol e 40 mg tablet,matty yed release 11-14 00:00: 00 07-05 23:59 :00 No [id number] STOMACH 1 tablet DAILY 1 tablet DAILY (route: oral) Med Classific ation: Gastroint estinal Therapy Agents famotidine 20 mg tablet 11-14 00:00: 00 07-05 23:59 :00 No [id number] STOMACH Per instruc tions DAILY Per instructio ns DAILY (route: oral) Med Classific ation: Gastroint estinal Therapy Agents sertraline 50 mg tablet 11-14 00:00: 00 07-05 23:59 :00 No [id number] ANXIETY 1 tablet DAILY 1 tablet DAILY (route: oral) Med Classific ation: Central Nervous System Agents gabapentin 100 mg capsule 11-14 00:00: 00 01-09 23:59 :00 No [id number] NERVE PAIN 1 capsule 2 TIMES DAILY 1 capsule 2 TIMES DAILY (route: oral) Med Classific ation: Central Nervous System Agents buspirone 7.5 mg tablet 11-14 00:00: 00 07-05 23:59 :00 No [id number] ANXIETY 1 tablet DAILY 1 tablet DAILY (route: oral) Med Classific ation: Central Nervous System Agents mirtazapine 15 mg tablet 11-14 00:00: 00 07-05 23:59 :00 No [id number] SLEEP 1 tablet 2 TIMES A WEEK 1 tablet 2 TIMES A WEEK (route: oral) Med Classific ation: Central Nervous System Agents cefdinir 300 mg capsule 01-02 00:00: 00 01-03 23:59 :00 No [id number] for cellulits/ infection to leg 1 capsule 2 TIMES DAILY 1 capsule 2 TIMES DAILY (route: oral) Med Classific ation: Anti-Infe ctive Agents Breo Ellipta 100 mcg-25 mcg/dose powder for inhalation 2021-08 00:00: 00 07-05 23:59 :00 No [id number] LUNGS 1 inhalat ion DAILY 1 inhalation DAILY (route: inhalation ) Med Classific ation: Respirato ry Therapy Agents nystatin 100,000 unit/gram topical powder 2023-08 00:00: 00 Yes [id number] UNDER BREAST AND ABDOMEN 1 unit 4 TIMES DAILY 1 unit 4 TIMES DAILY (route: topical) Med Classific ation: Dermatolo gical oxygen gas for inhalation 2023-08 00:00: 00 Yes [id number] SOA 2 Liter O2 - CONTINUOUS 2 Liter O2 - CONTINUOUS (route: inhalation ) Med Classific ation: Medical Supplies and Durable Medical Equipment (DME) bumetanide 1 mg tablet 2023-08 00:00: 00 Yes [id number] WATER PILL 1 tablet DAILY 1 tablet DAILY (route: oral) Med Classific ation: Cardiovas cular Therapy Agents buspirone 7.5 mg tablet 2020-08 00:00: 00 Yes [id number] MOOD 1 tablet 2 TIMES DAILY 1 tablet 2 TIMES DAILY (route: oral) Med Classific ation: Central Nervous System Agents Gemtesa 75 mg tablet 2020-08 00:00: 00 Yes [id number] URINARY 1 tablet DAILY 1 tablet DAILY (route: oral) Med Classific ation: Genitouri nary Therapy levothyroxi ne 25 mcg tablet 2020-08 00:00: 00 Yes [id number] THYROID 1 tablet DAILY 1 tablet DAILY (route: oral) Med Classific ation: Endocrine meloxicam 7.5 mg tablet 2020-08 00:00: 00 02-02 23:59 :00 No [id number] PAIN 1 tablet DAILY 1 tablet DAILY (route: oral) Med Classific ation: Analgesic , Anti-infl ammatory or Antipyret ic mirtazapine 15 mg tablet 2021-08 00:00: 00 Yes [id number] RLS 1 tablet BEDTIME 1 tablet BEDTIME (route: oral) Med Classific ation: Central Nervous System Agents pantoprazol e 40 mg tablet,matty yed release 2020-08 00:00: 00 Yes [id number] GERD 1 tablet BEDTIME 1 tablet BEDTIME (route: oral) Med Classific ation: Gastroint estinal Therapy Agents Pepcid 20 mg tablet 2021-08 00:00: 00 Yes [id number] GERD 1 tablet 2 TIMES DAILY 1 tablet 2 TIMES DAILY (route: oral) Med Classific ation: Gastroint estinal Therapy Agents sertraline 150 mg capsule 2020-08 00:00: 00 Yes [id number] MOOD 1 capsule DAILY 1 capsule DAILY (route: oral) Med Classific ation: Central Nervous System Agents valsartan 160 mg tablet 2021-08 00:00: 00 02-02 23:59 :00 No [id number] HEART 1 tablet DAILY 1 tablet DAILY (route: oral) Med Classific ation: Cardiovas cular Therapy Agents cyclobenzap rine 10 mg tablet 09-10 00:00: 00 02-02 23:59 :00 No [id number] PAIN 1 tablet 3 TIMES DAILY 1 tablet 3 TIMES DAILY (route: oral) Med Classific ation: Locomotor System Aspirin Childrens 81 mg chewable tablet 02-02 00:00: 00 Yes [id number] HEART 1 tablet DAILY 1 tablet DAILY (route: oral) Med Classific ation: Hematolog ical Agents atorvastati n 20 mg tablet 02-02 00:00: 00 Yes [id number] CHOLESTEROL 1 tablet DAILY 1 tablet DAILY (route: oral) Med Classific ation: Cardiovas cular Therapy Agents cetirizine 10 mg tablet 02-02 00:00: 00 Yes [id number] ALLERGIES 1 tablet BEDTIME 1 tablet BEDTIME (route: oral) Med Classific ation: Respirato ry Therapy Agents Eliquis 5 mg tablet 02-02 00:00: 00 Yes [id number] HEART 1 tablet 2 TIMES DAILY 1 tablet 2 TIMES DAILY (route: oral) Med Classific ation: Hematolog ical Agents Jardiance 10 mg tablet 02-02 00:00: 00 Yes [id number] DIABETES 1 tablet DAILY 1 tablet DAILY (route: oral) Med Classific ation: Endocrine metoprolol succinate ER 25 mg tablet,exte nded release 24 hr 02-02 00:00: 00 Yes [id number] HEART 1 tablet DAILY 1 tablet DAILY [...] ALBERTO SZYMANSKI RN TO OBSERVE AND ASSESS, PRODUCTION TROUBLESHOOTER/SPIRITS MODEL TO OBSERVE FOR RISK FOR FALLS AND INSTRUCT IN FALL PREVENTION, HOME SAFETY, MEDICATION MANAGEMENT, INFECTION PREVENTION, AND NUTRITION MANAGEMENT. RN/PRODUCTION TROUBLESHOOTER/SPIRITS MODEL NURSE MAY PERFORM O2 SATURATION LEVEL ON ADMISSION AND PRN FOR RN TO ASSESS/PRODUCTION TROUBLESHOOTER TO OBSERVE PATIENT, WITH NOTIFICATION TO THE PHYSICIAN IF SATURATION IS 90% IN THE ABSENCE OF MORE SPECIFIC PARAMETERS FROM THE PHYSICIAN. AGENCY MAY PERFORM A RESUMPTION OF CARE VISIT FOLLOWING ANY HOSPITAL ADMISSION. RN/PRODUCTION TROUBLESHOOTER/SPIRITS MODEL TO MONITOR CO-MORBID CONDITIONS LISTED ON THE PLAN OF CARE AND ANY NEW CONDITIONS THAT PRESENT THEMSELVES DURING THIS EPISODE TO IDENTIFY CHANGES AND INTERVENE TO MINIMIZE COMPLICATIONS. [code = RN TO OBSERVE, ASSESS, EVALUATE, AND DEVELOP AN INDIVIDUALIZED PLAN OF CARE. AGENCY MAY ACCEPT ORDERS FROM CONSULTING PHYSICIANS ALBERTO SZYMANSKI RN TO OBSERVE AND ASSESS, PRODUCTION TROUBLESHOOTER/SPIRITS MODEL TO OBSERVE FOR RISK FOR FALLS AND INSTRUCT IN FALL PREVENTION, HOME SAFETY, MEDICATION MANAGEMENT, INFECTION PREVENTION, AND NUTRITION MANAGEMENT. RN/PRODUCTION TROUBLESHOOTER/SPIRITS MODEL NURSE MAY PERFORM O2 SATURATION LEVEL ON ADMISSION AND PRN FOR RN TO ASSESS/PRODUCTION TROUBLESHOOTER TO OBSERVE PATIENT, WITH NOTIFICATION TO THE PHYSICIAN IF SATURATION IS 90% IN THE ABSENCE OF MORE SPECIFIC PARAMETERS FROM THE PHYSICIAN. AGENCY MAY PERFORM A RESUMPTION OF CARE VISIT FOLLOWING ANY HOSPITAL ADMISSION. RN/PRODUCTION TROUBLESHOOTER/SPIRITS MODEL TO MONITOR CO-MORBID CONDITIONS LISTED ON THE PLAN OF CARE AND ANY NEW CONDITIONS THAT PRESENT THEMSELVES DURING THIS EPISODE TO IDENTIFY CHANGES AND INTERVENE TO MINIMIZE COMPLICATIONS.] Future Scheduled Test MEDICATION MANAGEMENT; RN/PRODUCTION TROUBLESHOOTER/SPIRITS MODEL TO REVIEW MEDICATIONS FOR INTERACTIONS, EFFECTIVENESS OF DRUG THERAPY, AND SIGNS/SYMPTOMS OF ADVERSE REACTIONS. MAY INSTRUCT AND REINFORCE MEDICATION TEACHING RELATED TO THE USE OF MEDICATIONS, DOSAGE, FREQUENCY, PURPOSE, SIDE EFFECTS, AND TO REPORT COMPLICATIONS. [code = MEDICATION MANAGEMENT; RN/PRODUCTION TROUBLESHOOTER/SPIRITS MODEL TO REVIEW MEDICATIONS FOR INTERACTIONS, EFFECTIVENESS OF DRUG THERAPY, AND SIGNS/SYMPTOMS OF ADVERSE REACTIONS. MAY INSTRUCT AND REINFORCE MEDICATION TEACHING RELATED TO THE USE OF MEDICATIONS, DOSAGE, FREQUENCY, PURPOSE, SIDE EFFECTS, AND TO REPORT COMPLICATIONS.] Future Scheduled Test RESPIRATOR Y SYSTEM MANAGEMENT; RN TO ASSESS AND TEACH, PRODUCTION TROUBLESHOOTER/SPIRITS MODEL TO OBSERVE AND TEACH RELATED TO ALTERED RESPIRATORY STATUS TO MINIMIZE COMPLICATIONS AND REDUCE HOSPITALIZATION. [code = RESPIRATORY SYSTEM MANAGEMENT; RN TO ASSESS AND TEACH, PRODUCTION TROUBLESHOOTER/SPIRITS MODEL TO OBSERVE AND TEACH RELATED TO ALTERED RESPIRATORY STATUS TO MINIMIZE COMPLICATIONS AND REDUCE HOSPITALIZATION.] Future Scheduled Test COPD MANAG EMENT; RN TO ASSESS AND TEACH, PRODUCTION TROUBLESHOOTER/SPIRITS MODEL TO OBSERVE AND TEACH SIGNS/SYMPTOMS OF COPD EXACERBATION AND PROVIDE EARLY INTERVENTIONS TO MINIMIZE RISK OF HOSPITALIZATION. RN/PRODUCTION TROUBLESHOOTER/SPIRITS MODEL TO INSTRUCT ON SELF-CARE MANAGEMENT INCLUDING BREATHING TECHNIQUES, AIRWAY CLEARANCE, AND PROPER USE OF COPD MEDICATIONS. RN TO ASSESS AND TEACH, PRODUCTION TROUBLESHOOTER/SPIRITS MODEL TO OBSERVE AND TEACH PATIENT/CAREGIVER ABILITY TO MONITOR AND RECORD VITAL SIGNS INCLUDING PULSE OXIMETRY AND BLOOD PRESSURE. PULSE OXIMETER AND BP MONITOR TO BE PROVIDED IF NEEDED [code = COPD MANAGEMENT; RN TO ASSESS AND TEACH, PRODUCTION TROUBLESHOOTER/SPIRITS MODEL TO OBSERVE AND TEACH SIGNS/SYMPTOMS OF COPD EXACERBATION AND PROVIDE EARLY INTERVENTIONS TO MINIMIZE RISK OF HOSPITALIZATION. RN/PRODUCTION TROUBLESHOOTER/SPIRITS MODEL TO INSTRUCT ON SELF-CARE MANAGEMENT INCLUDING BREATHING TECHNIQUES, AIRWAY CLEARANCE, AND PROPER USE OF COPD MEDICATIONS. RN TO ASSESS AND TEACH, PRODUCTION TROUBLESHOOTER/SPIRITS MODEL TO OBSERVE AND TEACH PATIENT/CAREGIVER ABILITY TO MONITOR AND RECORD VITAL SIGNS INCLUDING PULSE OXIMETRY AND BLOOD PRESSURE. PULSE OXIMETER AND BP MONITOR TO BE PROVIDED IF NEEDED] Future Scheduled Test OXYGEN THE RAPY; RN/PRODUCTION TROUBLESHOOTER/SPIRITS MODEL TO INSTRUCT ON OXYGEN MANAGEMENT INCLUDING: ADMINISTRATION AT 2L/MIN VIA CONTINUOUS/PRN FOR , CARE OF EQUIPMENT AND SAFETY. [code = OXYGEN THERAPY; RN/PRODUCTION TROUBLESHOOTER/SPIRITS MODEL TO INSTRUCT ON OXYGEN MANAGEMENT INCLUDING: ADMINISTRATION [...] Scheduled Test PRN VISITS ; NUMBER OF RN/PRODUCTION TROUBLESHOOTER/SPIRITS MODEL VISITS: 2 RN/PRODUCTION TROUBLESHOOTER/SPIRITS MODEL TO PERFORM: WOUND EVALUATE FOR THE FOLLOWING REASONS: OBSERVATION [code = PRN VISITS; NUMBER OF RN/PRODUCTION TROUBLESHOOTER/SPIRITS MODEL VISITS: 2 RN/PRODUCTION TROUBLESHOOTER/SPIRITS MODEL TO PERFORM: WOUND EVALUATE FOR THE FOLLOWING REASONS: OBSERVATION] Future Scheduled Test RN/PRODUCTION TROUBLESHOOTER/SPIRITS MODEL TO PERFORM/TEACH ARTERIAL ULCER CARE TO RIGHT AND LEFT LEGS IRRIGATE/CLEANSE WITH WOUND CLEANZER APPLY CALCIUM SILVER ALGINATE SECURE WITH 4XR BORDER GAUZE CHANGE DRESSING EVERY 3 DAYS A WEEK FOR TWO WEEKS THEN 2 DAYS A WEEK TILL EOE DATE AND CHANGE PRN FOR DISLODGED DRESSING OR SOILING BY CAREGIVER AND PT IN BETWEEN NURSING VISITS [code = RN/PRODUCTION TROUBLESHOOTER/SPIRITS MODEL TO PERFORM/TEACH ARTERIAL ULCER CARE TO RIGHT [...] Date/Time Encounter Type Admission Type [facility]ending [facility] Care Department Encounter ID Discharge Date Discharge Status Discharge Condition Discharge Reason Percent Goals Met 2025-06-16 00:00:00 2025-06-24 00:00:00 Outpatient GALLO [facility]SE[facility] [id number] 2025-06-24 00:00:00 DISCHARGE TO HOME OR SELF CARE INDEPENDEN T IN THE HOME HH - NON COMPLIANT WITH PLAN OF TREATMENT [id number]
--- OUTSIDE RECORDS SUMMARY | 2025-06-23 19:00 | XMS_ITS | Clinical Summary ---
Author Organization Unknown Care Team Providers Care Aeronautical Products Sales Engineer Name Role Phone STEPHON COSTUME SEAMSTRESS, ALBERTO Unavailable Unavailable SILVA RN, GALLO Unavailable Unavailable KODY PT, KILEY Unavailable Unavailable ARABELLA DURHAMN, JOSE ENRIQUE Unavailable Unavailable SALAZAR STORE CLERK CHECKER, RAMYA Unavailable Unavailabl e ROSSI OT, ROXANE Unavailable Unavailable ROMEL ANGELIQUE/PAUL, MARIEA Unavailable Unavail able Payers Payer Name Policy Type Policy Number Effective Date Expira tion Date [facility] [id number] Problems Condition Name Condition Details Condition Category [...] 10-30 00:00: 00 11-07 23:59 :00 No [id number] INFECTION Per instruc tions DAILY Per instructio ns DAILY (route: intravenou s) Med Classific ation: Anti-Infe ctive Agents sertraline 100 mg tablet 11-14 00:00: 00 07-05 23:59 :00 No [id number] DEPRESSION 1 tablet DAILY 1 tablet DAILY (route: oral) Med Classific ation: Central Nervous System Agents levothyroxi ne 25 mcg tablet 11-14 00:00: 00 07-05 23:59 :00 No [id number] SUPPLEMENTA L 1 tablet DAILY 1 tablet DAILY (route: oral) Med Classific ation: Endocrine nadolol 40 mg tablet 11-14 00:00: 00 07-05 23:59 :00 No [id number] BP 1 tablet DAILY 1 tablet DAILY (route: oral) Med Classific ation: Cardiovas cular Therapy Agents diltiazem CD 180 mg capsule,ext ended release 24 hr 11-14 00:00: 00 07-05 23:59 :00 No [id number] BP 1 capsule DAILY 1 capsule DAILY (route: oral) Med Classific ation: Cardiovas cular Therapy Agents pantoprazol e 40 mg tablet,matty yed release 11-14 00:00: 00 07-05 23:59 :00 No [id number] STOMACH 1 tablet DAILY 1 tablet DAILY (route: oral) Med Classific ation: Gastroint estinal Therapy Agents famotidine 20 mg tablet 11-14 00:00: 00 07-05 23:59 :00 No [id number] STOMACH Per instruc tions DAILY Per instructio ns DAILY (route: oral) Med Classific ation: Gastroint estinal Therapy Agents sertraline 50 mg tablet 11-14 00:00: 00 07-05 23:59 :00 No [id number] ANXIETY 1 tablet DAILY 1 tablet DAILY (route: oral) Med Classific ation: Central Nervous System Agents gabapentin 100 mg capsule 11-14 00:00: 00 01-09 23:59 :00 No [id number] NERVE PAIN 1 capsule 2 TIMES DAILY 1 capsule 2 TIMES DAILY (route: oral) Med Classific ation: Central Nervous System Agents buspirone 7.5 mg tablet 11-14 00:00: 00 07-05 23:59 :00 No [id number] ANXIETY 1 tablet DAILY 1 tablet DAILY (route: oral) Med Classific ation: Central Nervous System Agents mirtazapine 15 mg tablet 11-14 00:00: 00 07-05 23:59 :00 No [id number] SLEEP 1 tablet 2 TIMES A WEEK 1 tablet 2 TIMES A WEEK (route: oral) Med Classific ation: Central Nervous System Agents cefdinir 300 mg capsule 01-02 00:00: 00 01-03 23:59 :00 No [id number] for cellulits/ infection to leg 1 capsule 2 TIMES DAILY 1 capsule 2 TIMES DAILY (route: oral) Med Classific ation: Anti-Infe ctive Agents Breo Ellipta 100 mcg-25 mcg/dose powder for inhalation 2021-08 00:00: 00 07-05 23:59 :00 No [id number] LUNGS 1 inhalat ion DAILY 1 inhalation DAILY (route: inhalation ) Med Classific ation: Respirato ry Therapy Agents nystatin 100,000 unit/gram topical powder 2023-08 00:00: 00 Yes [id number] UNDER BREAST AND ABDOMEN 1 unit 4 TIMES DAILY 1 unit 4 TIMES DAILY (route: topical) Med Classific ation: Dermatolo gical oxygen gas for inhalation 2023-08 00:00: 00 Yes [id number] SOA 2 Liter O2 - CONTINUOUS 2 Liter O2 - CONTINUOUS (route: inhalation ) Med Classific ation: Medical Supplies and Durable Medical Equipment (DME) bumetanide 1 mg tablet 2023-08 00:00: 00 Yes [id number] WATER PILL 1 tablet DAILY 1 tablet DAILY (route: oral) Med Classific ation: Cardiovas cular Therapy Agents buspirone 7.5 mg tablet 2020-08 00:00: 00 Yes [id number] MOOD 1 tablet 2 TIMES DAILY 1 tablet 2 TIMES DAILY (route: oral) Med Classific ation: Central Nervous System Agents Gemtesa 75 mg tablet 2020-08 00:00: 00 Yes [id number] URINARY 1 tablet DAILY 1 tablet DAILY (route: oral) Med Classific ation: Genitouri nary Therapy levothyroxi ne 25 mcg tablet 2020-08 00:00: 00 Yes [id number] THYROID 1 tablet DAILY 1 tablet DAILY (route: oral) Med Classific ation: Endocrine meloxicam 7.5 mg tablet 2020-08 00:00: 00 02-02 23:59 :00 No [id number] PAIN 1 tablet DAILY 1 tablet DAILY (route: oral) Med Classific ation: Analgesic , Anti-infl ammatory or Antipyret ic mirtazapine 15 mg tablet 2021-08 00:00: 00 Yes [id number] RLS 1 tablet BEDTIME 1 tablet BEDTIME (route: oral) Med Classific ation: Central Nervous System Agents pantoprazol e 40 mg tablet,matty yed release 2020-08 00:00: 00 Yes [id number] GERD 1 tablet BEDTIME 1 tablet BEDTIME (route: oral) Med Classific ation: Gastroint estinal Therapy Agents Pepcid 20 mg tablet 2021-08 00:00: 00 Yes [id number] GERD 1 tablet 2 TIMES DAILY 1 tablet 2 TIMES DAILY (route: oral) Med Classific ation: Gastroint estinal Therapy Agents sertraline 150 mg capsule 2020-08 00:00: 00 Yes [id number] MOOD 1 capsule DAILY 1 capsule DAILY (route: oral) Med Classific ation: Central Nervous System Agents valsartan 160 mg tablet 2021-08 00:00: 00 02-02 23:59 :00 No [id number] HEART 1 tablet DAILY 1 tablet DAILY (route: oral) Med Classific ation: Cardiovas cular Therapy Agents cyclobenzap rine 10 mg tablet 09-10 00:00: 00 02-02 23:59 :00 No [id number] PAIN 1 tablet 3 TIMES DAILY 1 tablet 3 TIMES DAILY (route: oral) Med Classific ation: Locomotor System Aspirin Childrens 81 mg chewable tablet 02-02 00:00: 00 Yes [id number] HEART 1 tablet DAILY 1 tablet DAILY (route: oral) Med Classific ation: Hematolog ical Agents atorvastati n 20 mg tablet 02-02 00:00: 00 Yes [id number] CHOLESTEROL 1 tablet DAILY 1 tablet DAILY (route: oral) Med Classific ation: Cardiovas cular Therapy Agents cetirizine 10 mg tablet 02-02 00:00: 00 Yes [id number] ALLERGIES 1 tablet BEDTIME 1 tablet BEDTIME (route: oral) Med Classific ation: Respirato ry Therapy Agents Eliquis 5 mg tablet 02-02 00:00: 00 Yes [id number] HEART 1 tablet 2 TIMES DAILY 1 tablet 2 TIMES DAILY (route: oral) Med Classific ation: Hematolog ical Agents Jardiance 10 mg tablet 02-02 00:00: 00 Yes [id number] DIABETES 1 tablet DAILY 1 tablet DAILY (route: oral) Med Classific ation: Endocrine metoprolol succinate ER 25 mg tablet,exte nded release 24 hr 02-02 00:00: 00 Yes [id number] HEART 1 tablet DAILY 1 tablet DAILY [...] ALBERTO SZYMANSKI RN TO OBSERVE AND ASSESS, FOUNTAIN WORKER/ELECTRICAL MACHINE BUILDER TO OBSERVE FOR RISK FOR FALLS AND INSTRUCT IN FALL PREVENTION, HOME SAFETY, MEDICATION MANAGEMENT, INFECTION PREVENTION, AND NUTRITION MANAGEMENT. RN/FOUNTAIN WORKER/ELECTRICAL MACHINE BUILDER NURSE MAY PERFORM O2 SATURATION LEVEL ON ADMISSION AND PRN FOR RN TO ASSESS/FOUNTAIN WORKER TO OBSERVE PATIENT, WITH NOTIFICATION TO THE PHYSICIAN IF SATURATION IS 90% IN THE ABSENCE OF MORE SPECIFIC PARAMETERS FROM THE PHYSICIAN. AGENCY MAY PERFORM A RESUMPTION OF CARE VISIT FOLLOWING ANY HOSPITAL ADMISSION. RN/FOUNTAIN WORKER/ELECTRICAL MACHINE BUILDER TO MONITOR CO-MORBID CONDITIONS LISTED ON THE PLAN OF CARE AND ANY NEW CONDITIONS THAT PRESENT THEMSELVES DURING THIS EPISODE TO IDENTIFY CHANGES AND INTERVENE TO MINIMIZE COMPLICATIONS. [code = RN TO OBSERVE, ASSESS, EVALUATE, AND DEVELOP AN INDIVIDUALIZED PLAN OF CARE. AGENCY MAY ACCEPT ORDERS FROM CONSULTING PHYSICIANS ALBERTO SZYMANSKI RN TO OBSERVE AND ASSESS, FOUNTAIN WORKER/ELECTRICAL MACHINE BUILDER TO OBSERVE FOR RISK FOR FALLS AND INSTRUCT IN FALL PREVENTION, HOME SAFETY, MEDICATION MANAGEMENT, INFECTION PREVENTION, AND NUTRITION MANAGEMENT. RN/FOUNTAIN WORKER/ELECTRICAL MACHINE BUILDER NURSE MAY PERFORM O2 SATURATION LEVEL ON ADMISSION AND PRN FOR RN TO ASSESS/FOUNTAIN WORKER TO OBSERVE PATIENT, WITH NOTIFICATION TO THE PHYSICIAN IF SATURATION IS 90% IN THE ABSENCE OF MORE SPECIFIC PARAMETERS FROM THE PHYSICIAN. AGENCY MAY PERFORM A RESUMPTION OF CARE VISIT FOLLOWING ANY HOSPITAL ADMISSION. RN/FOUNTAIN WORKER/ELECTRICAL MACHINE BUILDER TO MONITOR CO-MORBID CONDITIONS LISTED ON THE PLAN OF CARE AND ANY NEW CONDITIONS THAT PRESENT THEMSELVES DURING THIS EPISODE TO IDENTIFY CHANGES AND INTERVENE TO MINIMIZE COMPLICATIONS.] Future Scheduled Test MEDICATION MANAGEMENT; RN/FOUNTAIN WORKER/ELECTRICAL MACHINE BUILDER TO REVIEW MEDICATIONS FOR INTERACTIONS, EFFECTIVENESS OF DRUG THERAPY, AND SIGNS/SYMPTOMS OF ADVERSE REACTIONS. MAY INSTRUCT AND REINFORCE MEDICATION TEACHING RELATED TO THE USE OF MEDICATIONS, DOSAGE, FREQUENCY, PURPOSE, SIDE EFFECTS, AND TO REPORT COMPLICATIONS. [code = MEDICATION MANAGEMENT; RN/FOUNTAIN WORKER/ELECTRICAL MACHINE BUILDER TO REVIEW MEDICATIONS FOR INTERACTIONS, EFFECTIVENESS OF DRUG THERAPY, AND SIGNS/SYMPTOMS OF ADVERSE REACTIONS. MAY INSTRUCT AND REINFORCE MEDICATION TEACHING RELATED TO THE USE OF MEDICATIONS, DOSAGE, FREQUENCY, PURPOSE, SIDE EFFECTS, AND TO REPORT COMPLICATIONS.] Future Scheduled Test RESPIRATOR Y SYSTEM MANAGEMENT; RN TO ASSESS AND TEACH, FOUNTAIN WORKER/ELECTRICAL MACHINE BUILDER TO OBSERVE AND TEACH RELATED TO ALTERED RESPIRATORY STATUS TO MINIMIZE COMPLICATIONS AND REDUCE HOSPITALIZATION. [code = RESPIRATORY SYSTEM MANAGEMENT; RN TO ASSESS AND TEACH, FOUNTAIN WORKER/ELECTRICAL MACHINE BUILDER TO OBSERVE AND TEACH RELATED TO ALTERED RESPIRATORY STATUS TO MINIMIZE COMPLICATIONS AND REDUCE HOSPITALIZATION.] Future Scheduled Test COPD MANAG EMENT; RN TO ASSESS AND TEACH, FOUNTAIN WORKER/ELECTRICAL MACHINE BUILDER TO OBSERVE AND TEACH SIGNS/SYMPTOMS OF COPD EXACERBATION AND PROVIDE EARLY INTERVENTIONS TO MINIMIZE RISK OF HOSPITALIZATION. RN/FOUNTAIN WORKER/ELECTRICAL MACHINE BUILDER TO INSTRUCT ON SELF-CARE MANAGEMENT INCLUDING BREATHING TECHNIQUES, AIRWAY CLEARANCE, AND PROPER USE OF COPD MEDICATIONS. RN TO ASSESS AND TEACH, FOUNTAIN WORKER/ELECTRICAL MACHINE BUILDER TO OBSERVE AND TEACH PATIENT/CAREGIVER ABILITY TO MONITOR AND RECORD VITAL SIGNS INCLUDING PULSE OXIMETRY AND BLOOD PRESSURE. PULSE OXIMETER AND BP MONITOR TO BE PROVIDED IF NEEDED [code = COPD MANAGEMENT; RN TO ASSESS AND TEACH, FOUNTAIN WORKER/ELECTRICAL MACHINE BUILDER TO OBSERVE AND TEACH SIGNS/SYMPTOMS OF COPD EXACERBATION AND PROVIDE EARLY INTERVENTIONS TO MINIMIZE RISK OF HOSPITALIZATION. RN/FOUNTAIN WORKER/ELECTRICAL MACHINE BUILDER TO INSTRUCT ON SELF-CARE MANAGEMENT INCLUDING BREATHING TECHNIQUES, AIRWAY CLEARANCE, AND PROPER USE OF COPD MEDICATIONS. RN TO ASSESS AND TEACH, FOUNTAIN WORKER/ELECTRICAL MACHINE BUILDER TO OBSERVE AND TEACH PATIENT/CAREGIVER ABILITY TO MONITOR AND RECORD VITAL SIGNS INCLUDING PULSE OXIMETRY AND BLOOD PRESSURE. PULSE OXIMETER AND BP MONITOR TO BE PROVIDED IF NEEDED] Future Scheduled Test OXYGEN THE RAPY; RN/FOUNTAIN WORKER/ELECTRICAL MACHINE BUILDER TO INSTRUCT ON OXYGEN MANAGEMENT INCLUDING: ADMINISTRATION AT 2L/MIN VIA CONTINUOUS/PRN FOR , CARE OF EQUIPMENT AND SAFETY. [code = OXYGEN THERAPY; RN/FOUNTAIN WORKER/ELECTRICAL MACHINE BUILDER TO INSTRUCT ON OXYGEN MANAGEMENT INCLUDING: ADMINISTRATION [...] Scheduled Test PRN VISITS ; NUMBER OF RN/FOUNTAIN WORKER/ELECTRICAL MACHINE BUILDER VISITS: 2 RN/FOUNTAIN WORKER/ELECTRICAL MACHINE BUILDER TO PERFORM: WOUND EVALUATE FOR THE FOLLOWING REASONS: OBSERVATION [code = PRN VISITS; NUMBER OF RN/FOUNTAIN WORKER/ELECTRICAL MACHINE BUILDER VISITS: 2 RN/FOUNTAIN WORKER/ELECTRICAL MACHINE BUILDER TO PERFORM: WOUND EVALUATE FOR THE FOLLOWING REASONS: OBSERVATION] Future Scheduled Test RN/FOUNTAIN WORKER/ELECTRICAL MACHINE BUILDER TO PERFORM/TEACH ARTERIAL ULCER CARE TO RIGHT AND LEFT LEGS IRRIGATE/CLEANSE WITH WOUND CLEANZER APPLY CALCIUM SILVER ALGINATE SECURE WITH 4XR BORDER GAUZE CHANGE DRESSING EVERY 3 DAYS A WEEK FOR TWO WEEKS THEN 2 DAYS A WEEK TILL EOE DATE AND CHANGE PRN FOR DISLODGED DRESSING OR SOILING BY CAREGIVER AND PT IN BETWEEN NURSING VISITS [code = RN/FOUNTAIN WORKER/ELECTRICAL MACHINE BUILDER TO PERFORM/TEACH ARTERIAL ULCER CARE TO RIGHT [...] End Date/Time Encounter Type Admission Type Attending [facility] Care Department Encounter ID Discharge Date Discharge Status Discharge Condition Discharge Reason Percent Goals Met 2025-06-16 00:00:00 2025-06-24 00:00:00 Outpatient GALLO [facility] [id number] 2025-06-24 00:00:00 DISCHARGE TO HOME OR SELF CARE INDEPENDEN T IN THE HOME HH - NON COMPLIANT WITH PLAN OF TREATMENT [id number]
--- OUTSIDE RECORDS SUMMARY | 2025-06-23 19:00 | XMS_ITS | Clinical Summary ---
Author Organization Unknown Care Team Providers Care Press Clipper Name Role Phone STEPHON FRANCHISE BUSINESS CONSULTANT, ALBERTO Unavailable Unavailable SILVA RN, GALLO Unavailable Unavailable KODY PT, KILEY Unavailable Unavailable ARABELLA DURHAMN, JOSE ENRIQUE Unavailable Unavailable SALAZAR SYSTEMS MANAGER, RAMYA Unavailable Unavailabl e ROSSI OT, ROXANE Unavailable Unavailable ROMEL ANGELIQUE/PAUL, MARIEA Unavailable Unavail able Payers Payer Name Policy Type Policy Number Effective Date Expira [facility]ion Date [facility] [id number] Problems Condition Name Condition Details Condition Category [...] 10-30 00:00: 00 11-07 23:59 :00 No [id number] INFECTION Per instruc tions DAILY Per instructio ns DAILY (route: intravenou s) Med Classific ation: Anti-Infe ctive Agents sertraline 100 mg tablet 11-14 00:00: 00 07-05 23:59 :00 No [id number] DEPRESSION 1 tablet DAILY 1 tablet DAILY (route: oral) Med Classific ation: Central Nervous System Agents levothyroxi ne 25 mcg tablet 11-14 00:00: 00 07-05 23:59 :00 No [id number] SUPPLEMENTA L 1 tablet DAILY 1 tablet DAILY (route: oral) Med Classific ation: Endocrine nadolol 40 mg tablet 11-14 00:00: 00 07-05 23:59 :00 No [id number] BP 1 tablet DAILY 1 tablet DAILY (route: oral) Med Classific ation: Cardiovas cular Therapy Agents diltiazem CD 180 mg capsule,ext ended release 24 hr 11-14 00:00: 00 07-05 23:59 :00 No [id number] BP 1 capsule DAILY 1 capsule DAILY (route: oral) Med Classific ation: Cardiovas cular Therapy Agents pantoprazol e 40 mg tablet,matty yed release 11-14 00:00: 00 07-05 23:59 :00 No [id number] STOMACH 1 tablet DAILY 1 tablet DAILY (route: oral) Med Classific ation: Gastroint estinal Therapy Agents famotidine 20 mg tablet 11-14 00:00: 00 07-05 23:59 :00 No [id number] STOMACH Per instruc tions DAILY Per instructio ns DAILY (route: oral) Med Classific ation: Gastroint estinal Therapy Agents sertraline 50 mg tablet 11-14 00:00: 00 07-05 23:59 :00 No [id number] ANXIETY 1 tablet DAILY 1 tablet DAILY (route: oral) Med Classific ation: Central Nervous System Agents gabapentin 100 mg capsule 11-14 00:00: 00 01-09 23:59 :00 No [id number] NERVE PAIN 1 capsule 2 TIMES DAILY 1 capsule 2 TIMES DAILY (route: oral) Med Classific ation: Central Nervous System Agents buspirone 7.5 mg tablet 11-14 00:00: 00 07-05 23:59 :00 No [id number] ANXIETY 1 tablet DAILY 1 tablet DAILY (route: oral) Med Classific ation: Central Nervous System Agents mirtazapine 15 mg tablet 11-14 00:00: 00 07-05 23:59 :00 No [id number] SLEEP 1 tablet 2 TIMES A WEEK 1 tablet 2 TIMES A WEEK (route: oral) Med Classific ation: Central Nervous System Agents cefdinir 300 mg capsule 01-02 00:00: 00 01-03 23:59 :00 No [id number] for cellulits/ infection to leg 1 capsule 2 TIMES DAILY 1 capsule 2 TIMES DAILY (route: oral) Med Classific ation: Anti-Infe ctive Agents Breo Ellipta 100 mcg-25 mcg/dose powder for inhalation 2021-08 00:00: 00 07-05 23:59 :00 No [id number] LUNGS 1 inhalat ion DAILY 1 inhalation DAILY (route: inhalation ) Med Classific ation: Respirato ry Therapy Agents nystatin 100,000 unit/gram topical powder 2023-08 00:00: 00 Yes [id number] UNDER BREAST AND ABDOMEN 1 unit 4 TIMES DAILY 1 unit 4 TIMES DAILY (route: topical) Med Classific ation: Dermatolo gical oxygen gas for inhalation 2023-08 00:00: 00 Yes [id number] SOA 2 Liter O2 - CONTINUOUS 2 Liter O2 - CONTINUOUS (route: inhalation ) Med Classific ation: Medical Supplies and Durable Medical Equipment (DME) bumetanide 1 mg tablet 2023-08 00:00: 00 Yes [id number] WATER PILL 1 tablet DAILY 1 tablet DAILY (route: oral) Med Classific ation: Cardiovas cular Therapy Agents buspirone 7.5 mg tablet 2020-08 00:00: 00 Yes [id number] MOOD 1 tablet 2 TIMES DAILY 1 tablet 2 TIMES DAILY (route: oral) Med Classific ation: Central Nervous System Agents Gemtesa 75 mg tablet 2020-08 00:00: 00 Yes [id number] URINARY 1 tablet DAILY 1 tablet DAILY (route: oral) Med Classific ation: Genitouri nary Therapy levothyroxi ne 25 mcg tablet 2020-08 00:00: 00 Yes [id number] THYROID 1 tablet DAILY 1 tablet DAILY (route: oral) Med Classific ation: Endocrine meloxicam 7.5 mg tablet 2020-08 00:00: 00 02-02 23:59 :00 No [id number] PAIN 1 tablet DAILY 1 tablet DAILY (route: oral) Med Classific ation: Analgesic , Anti-infl ammatory or Antipyret ic mirtazapine 15 mg tablet 2021-08 00:00: 00 Yes [id number] RLS 1 tablet BEDTIME 1 tablet BEDTIME (route: oral) Med Classific ation: Central Nervous System Agents pantoprazol e 40 mg tablet,matty yed release 2020-08 00:00: 00 Yes [id number] GERD 1 tablet BEDTIME 1 tablet BEDTIME (route: oral) Med Classific ation: Gastroint estinal Therapy Agents Pepcid 20 mg tablet 2021-08 00:00: 00 Yes [id number] GERD 1 tablet 2 TIMES DAILY 1 tablet 2 TIMES DAILY (route: oral) Med Classific ation: Gastroint estinal Therapy Agents sertraline 150 mg capsule 2020-08 00:00: 00 Yes [id number] MOOD 1 capsule DAILY 1 capsule DAILY (route: oral) Med Classific ation: Central Nervous System Agents valsartan 160 mg tablet 2021-08 00:00: 00 02-02 23:59 :00 No [id number] HEART 1 tablet DAILY 1 tablet DAILY (route: oral) Med Classific ation: Cardiovas cular Therapy Agents cyclobenzap rine 10 mg tablet 09-10 00:00: 00 02-02 23:59 :00 No [id number] PAIN 1 tablet 3 TIMES DAILY 1 tablet 3 TIMES DAILY (route: oral) Med Classific ation: Locomotor System Aspirin Childrens 81 mg chewable tablet 02-02 00:00: 00 Yes [id number] HEART 1 tablet DAILY 1 tablet DAILY (route: oral) Med Classific ation: Hematolog ical Agents atorvastati n 20 mg tablet 02-02 00:00: 00 Yes [id number] CHOLESTEROL 1 tablet DAILY 1 tablet DAILY (route: oral) Med Classific ation: Cardiovas cular Therapy Agents cetirizine 10 mg tablet 02-02 00:00: 00 Yes [id number] ALLERGIES 1 tablet BEDTIME 1 tablet BEDTIME (route: oral) Med Classific ation: Respirato ry Therapy Agents Eliquis 5 mg tablet 02-02 00:00: 00 Yes [id number] HEART 1 tablet 2 TIMES DAILY 1 tablet 2 TIMES DAILY (route: oral) Med Classific ation: Hematolog ical Agents Jardiance 10 mg tablet 02-02 00:00: 00 Yes [id number] DIABETES 1 tablet DAILY 1 tablet DAILY (route: oral) Med Classific ation: Endocrine metoprolol succinate ER 25 mg tablet,exte nded release 24 hr 02-02 00:00: 00 Yes [id number] HEART 1 tablet DAILY 1 tablet DAILY [...] ALBERTO SZYMANSKI RN TO OBSERVE AND ASSESS, YOKER MACHINE OPERATOR/METAL CEILING BUILDER TO OBSERVE FOR RISK FOR FALLS AND INSTRUCT IN FALL PREVENTION, HOME SAFETY, MEDICATION MANAGEMENT, INFECTION PREVENTION, AND NUTRITION MANAGEMENT. RN/YOKER MACHINE OPERATOR/METAL CEILING BUILDER NURSE MAY PERFORM O2 SATURATION LEVEL ON ADMISSION AND PRN FOR RN TO ASSESS/YOKER MACHINE OPERATOR TO OBSERVE PATIENT, WITH NOTIFICATION TO THE PHYSICIAN IF SATURATION IS 90% IN THE ABSENCE OF MORE SPECIFIC PARAMETERS FROM THE PHYSICIAN. AGENCY MAY PERFORM A RESUMPTION OF CARE VISIT FOLLOWING ANY HOSPITAL ADMISSION. RN/YOKER MACHINE OPERATOR/METAL CEILING BUILDER TO MONITOR CO-MORBID CONDITIONS LISTED ON THE PLAN OF CARE AND ANY NEW CONDITIONS THAT PRESENT THEMSELVES DURING THIS EPISODE TO IDENTIFY CHANGES AND INTERVENE TO MINIMIZE COMPLICATIONS. [code = RN TO OBSERVE, ASSESS, EVALUATE, AND DEVELOP AN INDIVIDUALIZED PLAN OF CARE. AGENCY MAY ACCEPT ORDERS FROM CONSULTING PHYSICIANS ALBERTO SZYMANSKI RN TO OBSERVE AND ASSESS, YOKER MACHINE OPERATOR/METAL CEILING BUILDER TO OBSERVE FOR RISK FOR FALLS AND INSTRUCT IN FALL PREVENTION, HOME SAFETY, MEDICATION MANAGEMENT, INFECTION PREVENTION, AND NUTRITION MANAGEMENT. RN/YOKER MACHINE OPERATOR/METAL CEILING BUILDER NURSE MAY PERFORM O2 SATURATION LEVEL ON ADMISSION AND PRN FOR RN TO ASSESS/YOKER MACHINE OPERATOR TO OBSERVE PATIENT, WITH NOTIFICATION TO THE PHYSICIAN IF SATURATION IS 90% IN THE ABSENCE OF MORE SPECIFIC PARAMETERS FROM THE PHYSICIAN. AGENCY MAY PERFORM A RESUMPTION OF CARE VISIT FOLLOWING ANY HOSPITAL ADMISSION. RN/YOKER MACHINE OPERATOR/METAL CEILING BUILDER TO MONITOR CO-MORBID CONDITIONS LISTED ON THE PLAN OF CARE AND ANY NEW CONDITIONS THAT PRESENT THEMSELVES DURING THIS EPISODE TO IDENTIFY CHANGES AND INTERVENE TO MINIMIZE COMPLICATIONS.] Future Scheduled Test MEDICATION MANAGEMENT; RN/YOKER MACHINE OPERATOR/METAL CEILING BUILDER TO REVIEW MEDICATIONS FOR INTERACTIONS, EFFECTIVENESS OF DRUG THERAPY, AND SIGNS/SYMPTOMS OF ADVERSE REACTIONS. MAY INSTRUCT AND REINFORCE MEDICATION TEACHING RELATED TO THE USE OF MEDICATIONS, DOSAGE, FREQUENCY, PURPOSE, SIDE EFFECTS, AND TO REPORT COMPLICATIONS. [code = MEDICATION MANAGEMENT; RN/YOKER MACHINE OPERATOR/METAL CEILING BUILDER TO REVIEW MEDICATIONS FOR INTERACTIONS, EFFECTIVENESS OF DRUG THERAPY, AND SIGNS/SYMPTOMS OF ADVERSE REACTIONS. MAY INSTRUCT AND REINFORCE MEDICATION TEACHING RELATED TO THE USE OF MEDICATIONS, DOSAGE, FREQUENCY, PURPOSE, SIDE EFFECTS, AND TO REPORT COMPLICATIONS.] Future Scheduled Test RESPIRATOR Y SYSTEM MANAGEMENT; RN TO ASSESS AND TEACH, YOKER MACHINE OPERATOR/METAL CEILING BUILDER TO OBSERVE AND TEACH RELATED TO ALTERED RESPIRATORY STATUS TO MINIMIZE COMPLICATIONS AND REDUCE HOSPITALIZATION. [code = RESPIRATORY SYSTEM MANAGEMENT; RN TO ASSESS AND TEACH, YOKER MACHINE OPERATOR/METAL CEILING BUILDER TO OBSERVE AND TEACH RELATED TO ALTERED RESPIRATORY STATUS TO MINIMIZE COMPLICATIONS AND REDUCE HOSPITALIZATION.] Future Scheduled Test COPD MANAG EMENT; RN TO ASSESS AND TEACH, YOKER MACHINE OPERATOR/METAL CEILING BUILDER TO OBSERVE AND TEACH SIGNS/SYMPTOMS OF COPD EXACERBATION AND PROVIDE EARLY INTERVENTIONS TO MINIMIZE RISK OF HOSPITALIZATION. RN/YOKER MACHINE OPERATOR/METAL CEILING BUILDER TO INSTRUCT ON SELF-CARE MANAGEMENT INCLUDING BREATHING TECHNIQUES, AIRWAY CLEARANCE, AND PROPER USE OF COPD MEDICATIONS. RN TO ASSESS AND TEACH, YOKER MACHINE OPERATOR/METAL CEILING BUILDER TO OBSERVE AND TEACH PATIENT/CAREGIVER ABILITY TO MONITOR AND RECORD VITAL SIGNS INCLUDING PULSE OXIMETRY AND BLOOD PRESSURE. PULSE OXIMETER AND BP MONITOR TO BE PROVIDED IF NEEDED [code = COPD MANAGEMENT; RN TO ASSESS AND TEACH, YOKER MACHINE OPERATOR/METAL CEILING BUILDER TO OBSERVE AND TEACH SIGNS/SYMPTOMS OF COPD EXACERBATION AND PROVIDE EARLY INTERVENTIONS TO MINIMIZE RISK OF HOSPITALIZATION. RN/YOKER MACHINE OPERATOR/METAL CEILING BUILDER TO INSTRUCT ON SELF-CARE MANAGEMENT INCLUDING BREATHING TECHNIQUES, AIRWAY CLEARANCE, AND PROPER USE OF COPD MEDICATIONS. RN TO ASSESS AND TEACH, YOKER MACHINE OPERATOR/METAL CEILING BUILDER TO OBSERVE AND TEACH PATIENT/CAREGIVER ABILITY TO MONITOR AND RECORD VITAL SIGNS INCLUDING PULSE OXIMETRY AND BLOOD PRESSURE. PULSE OXIMETER AND BP MONITOR TO BE PROVIDED IF NEEDED] Future Scheduled Test OXYGEN THE RAPY; RN/YOKER MACHINE OPERATOR/METAL CEILING BUILDER TO INSTRUCT ON OXYGEN MANAGEMENT INCLUDING: ADMINISTRATION AT 2L/MIN VIA CONTINUOUS/PRN FOR , CARE OF EQUIPMENT AND SAFETY. [code = OXYGEN THERAPY; RN/YOKER MACHINE OPERATOR/METAL CEILING BUILDER TO INSTRUCT ON OXYGEN MANAGEMENT INCLUDING: [...] Scheduled Test PRN VISITS ; NUMBER OF RN/YOKER MACHINE OPERATOR/METAL CEILING BUILDER VISITS: 2 RN/YOKER MACHINE OPERATOR/METAL CEILING BUILDER TO PERFORM: WOUND EVALUATE FOR THE FOLLOWING REASONS: OBSERVATION [code = PRN VISITS; NUMBER OF RN/YOKER MACHINE OPERATOR/METAL CEILING BUILDER VISITS: 2 RN/YOKER MACHINE OPERATOR/METAL CEILING BUILDER TO PERFORM: WOUND EVALUATE FOR THE FOLLOWING REASONS: OBSERVATION] Future Scheduled Test RN/YOKER MACHINE OPERATOR/METAL CEILING BUILDER TO PERFORM/TEACH ARTERIAL ULCER CARE TO RIGHT AND LEFT LEGS IRRIGATE/CLEANSE WITH WOUND CLEANZER APPLY CALCIUM SILVER ALGINATE SECURE WITH 4XR BORDER GAUZE CHANGE DRESSING EVERY 3 DAYS A WEEK FOR TWO WEEKS THEN 2 DAYS A WEEK TILL EOE DATE AND CHANGE PRN FOR DISLODGED DRESSING OR SOILING BY CAREGIVER AND PT IN BETWEEN NURSING VISITS [code = RN/YOKER MACHINE OPERATOR/METAL CEILING BUILDER TO PERFORM/TEACH ARTERIAL ULCER CARE TO [...] End Date/Time Encounter Type Admission Type Attending [facility] Care Department Encounter ID Discharge Date Discharge Status Discharge Condition Discharge Reason Percent Goals Met 2025-06-16 00:00:00 2025-06-24 00:00:00 Outpatient GALLO [facility]SE[facility] [id number] 2025-06-24 00:00:00 DISCHARGE TO HOME OR SELF CARE INDEPENDEN T IN THE HOME HH - NON COMPLIANT WITH PLAN OF TREATMENT [id number]
--- OUTSIDE RECORDS SUMMARY | 2025-06-23 19:00 | XMS_ITS | Clinical Summary ---
Author Organization Unknown Care Team Providers Care Senior It Project Manager Name Role Phone STEPHON PROPOSAL REVIEW ANALYST, ALBERTO Unavailable Unavailable SILVA RN, GALLO Unavailable Unavailable KODY PT, KILEY Unavailable Unavailable ARABELLA DURHAMN, JOSE ENRIQUE Unavailable Unavailable SALAZAR JEWEL BEARING POLISHER, RAMYA Unavailable Unavailabl e ROSSI OT, ROXANE Unavailable Unavailable ROMEL ANGELIQUE/PAUL, MARIEA Unavailable Unavail able Payers Payer Name Policy Type Policy Number Effective Date Expira tion Date [facility] [id number] Problems Condition Name Condition Details Condition Category [...] 10-30 00:00: 00 11-07 23:59 :00 No [id number] INFECTION Per instruc tions DAILY Per instructio ns DAILY (route: intravenou s) Med Classific ation: Anti-Infe ctive Agents sertraline 100 mg tablet 11-14 00:00: 00 07-05 23:59 :00 No [id number] DEPRESSION 1 tablet DAILY 1 tablet DAILY (route: oral) Med Classific ation: Central Nervous System Agents levothyroxi ne 25 mcg tablet 11-14 00:00: 00 07-05 23:59 :00 No [id number] SUPPLEMENTA L 1 tablet DAILY 1 tablet DAILY (route: oral) Med Classific ation: Endocrine nadolol 40 mg tablet 11-14 00:00: 00 07-05 23:59 :00 No [id number] BP 1 tablet DAILY 1 tablet DAILY (route: oral) Med Classific ation: Cardiovas cular Therapy Agents diltiazem CD 180 mg capsule,ext ended release 24 hr 11-14 00:00: 00 07-05 23:59 :00 No [id number] BP 1 capsule DAILY 1 capsule DAILY (route: oral) Med Classific ation: Cardiovas cular Therapy Agents pantoprazol e 40 mg tablet,matty yed release 11-14 00:00: 00 07-05 23:59 :00 No [id number] STOMACH 1 tablet DAILY 1 tablet DAILY (route: oral) Med Classific ation: Gastroint estinal Therapy Agents famotidine 20 mg tablet 11-14 00:00: 00 07-05 23:59 :00 No [id number] STOMACH Per instruc tions DAILY Per instructio ns DAILY (route: oral) Med Classific ation: Gastroint estinal Therapy Agents sertraline 50 mg tablet 11-14 00:00: 00 07-05 23:59 :00 No [id number] ANXIETY 1 tablet DAILY 1 tablet DAILY (route: oral) Med Classific ation: Central Nervous System Agents gabapentin 100 mg capsule 11-14 00:00: 00 01-09 23:59 :00 No [id number] NERVE PAIN 1 capsule 2 TIMES DAILY 1 capsule 2 TIMES DAILY (route: oral) Med Classific ation: Central Nervous System Agents buspirone 7.5 mg tablet 11-14 00:00: 00 07-05 23:59 :00 No [id number] ANXIETY 1 tablet DAILY 1 tablet DAILY (route: oral) Med Classific ation: Central Nervous System Agents mirtazapine 15 mg tablet 11-14 00:00: 00 07-05 23:59 :00 No [id number] SLEEP 1 tablet 2 TIMES A WEEK 1 tablet 2 TIMES A WEEK (route: oral) Med Classific ation: Central Nervous System Agents cefdinir 300 mg capsule 01-02 00:00: 00 01-03 23:59 :00 No [id number] for cellulits/ infection to leg 1 capsule 2 TIMES DAILY 1 capsule 2 TIMES DAILY (route: oral) Med Classific ation: Anti-Infe ctive Agents Breo Ellipta 100 mcg-25 mcg/dose powder for inhalation 2021-08 00:00: 00 07-05 23:59 :00 No [id number] LUNGS 1 inhalat ion DAILY 1 inhalation DAILY (route: inhalation ) Med Classific ation: Respirato ry Therapy Agents nystatin 100,000 unit/gram topical powder 2023-08 00:00: 00 Yes [id number] UNDER BREAST AND ABDOMEN 1 unit 4 TIMES DAILY 1 unit 4 TIMES DAILY (route: topical) Med Classific ation: Dermatolo gical oxygen gas for inhalation 2023-08 00:00: 00 Yes [id number] SOA 2 Liter O2 - CONTINUOUS 2 Liter O2 - CONTINUOUS (route: inhalation ) Med Classific ation: Medical Supplies and Durable Medical Equipment (DME) bumetanide 1 mg tablet 2023-08 00:00: 00 Yes [id number] WATER PILL 1 tablet DAILY 1 tablet DAILY (route: oral) Med Classific ation: Cardiovas cular Therapy Agents buspirone 7.5 mg tablet 2020-08 00:00: 00 Yes [id number] MOOD 1 tablet 2 TIMES DAILY 1 tablet 2 TIMES DAILY (route: oral) Med Classific ation: Central Nervous System Agents Gemtesa 75 mg tablet 2020-08 00:00: 00 Yes [id number] URINARY 1 tablet DAILY 1 tablet DAILY (route: oral) Med Classific ation: Genitouri nary Therapy levothyroxi ne 25 mcg tablet 2020-08 00:00: 00 Yes [id number] THYROID 1 tablet DAILY 1 tablet DAILY (route: oral) Med Classific ation: Endocrine meloxicam 7.5 mg tablet 2020-08 00:00: 00 02-02 23:59 :00 No [id number] PAIN 1 tablet DAILY 1 tablet DAILY (route: oral) Med Classific ation: Analgesic , Anti-infl ammatory or Antipyret ic mirtazapine 15 mg tablet 2021-08 00:00: 00 Yes [id number] RLS 1 tablet BEDTIME 1 tablet BEDTIME (route: oral) Med Classific ation: Central Nervous System Agents pantoprazol e 40 mg tablet,matty yed release 2020-08 00:00: 00 Yes [id number] GERD 1 tablet BEDTIME 1 tablet BEDTIME (route: oral) Med Classific ation: Gastroint estinal Therapy Agents Pepcid 20 mg tablet 2021-08 00:00: 00 Yes [id number] GERD 1 tablet 2 TIMES DAILY 1 tablet 2 TIMES DAILY (route: oral) Med Classific ation: Gastroint estinal Therapy Agents sertraline 150 mg capsule 2020-08 00:00: 00 Yes [id number] MOOD 1 capsule DAILY 1 capsule DAILY (route: oral) Med Classific ation: Central Nervous System Agents valsartan 160 mg tablet 2021-08 00:00: 00 02-02 23:59 :00 No [id number] HEART 1 tablet DAILY 1 tablet DAILY (route: oral) Med Classific ation: Cardiovas cular Therapy Agents cyclobenzap rine 10 mg tablet 09-10 00:00: 00 02-02 23:59 :00 No [id number] PAIN 1 tablet 3 TIMES DAILY 1 tablet 3 TIMES DAILY (route: oral) Med Classific ation: Locomotor System Aspirin Childrens 81 mg chewable tablet 02-02 00:00: 00 Yes [id number] HEART 1 tablet DAILY 1 tablet DAILY (route: oral) Med Classific ation: Hematolog ical Agents atorvastati n 20 mg tablet 02-02 00:00: 00 Yes [id number] CHOLESTEROL 1 tablet DAILY 1 tablet DAILY (route: oral) Med Classific ation: Cardiovas cular Therapy Agents cetirizine 10 mg tablet 02-02 00:00: 00 Yes [id number] ALLERGIES 1 tablet BEDTIME 1 tablet BEDTIME (route: oral) Med Classific ation: Respirato ry Therapy Agents Eliquis 5 mg tablet 02-02 00:00: 00 Yes [id number] HEART 1 tablet 2 TIMES DAILY 1 tablet 2 TIMES DAILY (route: oral) Med Classific ation: Hematolog ical Agents Jardiance 10 mg tablet 02-02 00:00: 00 Yes [id number] DIABETES 1 tablet DAILY 1 tablet DAILY (route: oral) Med Classific ation: Endocrine metoprolol succinate ER 25 mg tablet,exte nded release 24 hr 02-02 00:00: 00 Yes [id number] HEART 1 tablet DAILY 1 tablet DAILY [...] ALBERTO SZYMANSKI RN TO OBSERVE AND ASSESS, FISHERIES MANAGEMENT BIOLOGIST/OIL AND GAS WELL TREATMENT OPERATOR TO OBSERVE FOR RISK FOR FALLS AND INSTRUCT IN FALL PREVENTION, HOME SAFETY, MEDICATION MANAGEMENT, INFECTION PREVENTION, AND NUTRITION MANAGEMENT. RN/FISHERIES MANAGEMENT BIOLOGIST/OIL AND GAS WELL TREATMENT OPERATOR NURSE MAY PERFORM O2 SATURATION LEVEL ON ADMISSION AND PRN FOR RN TO ASSESS/FISHERIES MANAGEMENT BIOLOGIST TO OBSERVE PATIENT, WITH NOTIFICATION TO THE PHYSICIAN IF SATURATION IS 90% IN THE ABSENCE OF MORE SPECIFIC PARAMETERS FROM THE PHYSICIAN. AGENCY MAY PERFORM A RESUMPTION OF CARE VISIT FOLLOWING ANY HOSPITAL ADMISSION. RN/FISHERIES MANAGEMENT BIOLOGIST/OIL AND GAS WELL TREATMENT OPERATOR TO MONITOR CO-MORBID CONDITIONS LISTED ON THE PLAN OF CARE AND ANY NEW CONDITIONS THAT PRESENT THEMSELVES DURING THIS EPISODE TO IDENTIFY CHANGES AND INTERVENE TO MINIMIZE COMPLICATIONS. [code = RN TO OBSERVE, ASSESS, EVALUATE, AND DEVELOP AN INDIVIDUALIZED PLAN OF CARE. AGENCY MAY ACCEPT ORDERS FROM CONSULTING PHYSICIANS ALBERTO SZYMANSKI RN TO OBSERVE AND ASSESS, FISHERIES MANAGEMENT BIOLOGIST/OIL AND GAS WELL TREATMENT OPERATOR TO OBSERVE FOR RISK FOR FALLS AND INSTRUCT IN FALL PREVENTION, HOME SAFETY, MEDICATION MANAGEMENT, INFECTION PREVENTION, AND NUTRITION MANAGEMENT. RN/FISHERIES MANAGEMENT BIOLOGIST/OIL AND GAS WELL TREATMENT OPERATOR NURSE MAY PERFORM O2 SATURATION LEVEL ON ADMISSION AND PRN FOR RN TO ASSESS/FISHERIES MANAGEMENT BIOLOGIST TO OBSERVE PATIENT, WITH NOTIFICATION TO THE PHYSICIAN IF SATURATION IS 90% IN THE ABSENCE OF MORE SPECIFIC PARAMETERS FROM THE PHYSICIAN. AGENCY MAY PERFORM A RESUMPTION OF CARE VISIT FOLLOWING ANY HOSPITAL ADMISSION. RN/FISHERIES MANAGEMENT BIOLOGIST/OIL AND GAS WELL TREATMENT OPERATOR TO MONITOR CO-MORBID CONDITIONS LISTED ON THE PLAN OF CARE AND ANY NEW CONDITIONS THAT PRESENT THEMSELVES DURING THIS EPISODE TO IDENTIFY CHANGES AND INTERVENE TO MINIMIZE COMPLICATIONS.] Future Scheduled Test MEDICATION MANAGEMENT; RN/FISHERIES MANAGEMENT BIOLOGIST/OIL AND GAS WELL TREATMENT OPERATOR TO REVIEW MEDICATIONS FOR INTERACTIONS, EFFECTIVENESS OF DRUG THERAPY, AND SIGNS/SYMPTOMS OF ADVERSE REACTIONS. MAY INSTRUCT AND REINFORCE MEDICATION TEACHING RELATED TO THE USE OF MEDICATIONS, DOSAGE, FREQUENCY, PURPOSE, SIDE EFFECTS, AND TO REPORT COMPLICATIONS. [code = MEDICATION MANAGEMENT; RN/FISHERIES MANAGEMENT BIOLOGIST/OIL AND GAS WELL TREATMENT OPERATOR TO REVIEW MEDICATIONS FOR INTERACTIONS, EFFECTIVENESS OF DRUG THERAPY, AND SIGNS/SYMPTOMS OF ADVERSE REACTIONS. MAY INSTRUCT AND REINFORCE MEDICATION TEACHING RELATED TO THE USE OF MEDICATIONS, DOSAGE, FREQUENCY, PURPOSE, SIDE EFFECTS, AND TO REPORT COMPLICATIONS.] Future Scheduled Test RESPIRATOR Y SYSTEM MANAGEMENT; RN TO ASSESS AND TEACH, FISHERIES MANAGEMENT BIOLOGIST/OIL AND GAS WELL TREATMENT OPERATOR TO OBSERVE AND TEACH RELATED TO ALTERED RESPIRATORY STATUS TO MINIMIZE COMPLICATIONS AND REDUCE HOSPITALIZATION. [code = RESPIRATORY SYSTEM MANAGEMENT; RN TO ASSESS AND TEACH, FISHERIES MANAGEMENT BIOLOGIST/OIL AND GAS WELL TREATMENT OPERATOR TO OBSERVE AND TEACH RELATED TO ALTERED RESPIRATORY STATUS TO MINIMIZE COMPLICATIONS AND REDUCE HOSPITALIZATION.] Future Scheduled Test COPD MANAG EMENT; RN TO ASSESS AND TEACH, FISHERIES MANAGEMENT BIOLOGIST/OIL AND GAS WELL TREATMENT OPERATOR TO OBSERVE AND TEACH SIGNS/SYMPTOMS OF COPD EXACERBATION AND PROVIDE EARLY INTERVENTIONS TO MINIMIZE RISK OF HOSPITALIZATION. RN/FISHERIES MANAGEMENT BIOLOGIST/OIL AND GAS WELL TREATMENT OPERATOR TO INSTRUCT ON SELF-CARE MANAGEMENT INCLUDING BREATHING TECHNIQUES, AIRWAY CLEARANCE, AND PROPER USE OF COPD MEDICATIONS. RN TO ASSESS AND TEACH, FISHERIES MANAGEMENT BIOLOGIST/OIL AND GAS WELL TREATMENT OPERATOR TO OBSERVE AND TEACH PATIENT/CAREGIVER ABILITY TO MONITOR AND RECORD VITAL SIGNS INCLUDING PULSE OXIMETRY AND BLOOD PRESSURE. PULSE OXIMETER AND BP MONITOR TO BE PROVIDED IF NEEDED [code = COPD MANAGEMENT; RN TO ASSESS AND TEACH, FISHERIES MANAGEMENT BIOLOGIST/OIL AND GAS WELL TREATMENT OPERATOR TO OBSERVE AND TEACH SIGNS/SYMPTOMS OF COPD EXACERBATION AND PROVIDE EARLY INTERVENTIONS TO MINIMIZE RISK OF HOSPITALIZATION. RN/FISHERIES MANAGEMENT BIOLOGIST/OIL AND GAS WELL TREATMENT OPERATOR TO INSTRUCT ON SELF-CARE MANAGEMENT INCLUDING BREATHING TECHNIQUES, AIRWAY CLEARANCE, AND PROPER USE OF COPD MEDICATIONS. RN TO ASSESS AND TEACH, FISHERIES MANAGEMENT BIOLOGIST/OIL AND GAS WELL TREATMENT OPERATOR TO OBSERVE AND TEACH PATIENT/CAREGIVER ABILITY TO MONITOR AND RECORD VITAL SIGNS INCLUDING PULSE OXIMETRY AND BLOOD PRESSURE. PULSE OXIMETER AND BP MONITOR TO BE PROVIDED IF NEEDED] Future Scheduled Test OXYGEN THE RAPY; RN/FISHERIES MANAGEMENT BIOLOGIST/OIL AND GAS WELL TREATMENT OPERATOR TO INSTRUCT ON OXYGEN MANAGEMENT INCLUDING: ADMINISTRATION AT 2L/MIN VIA CONTINUOUS/PRN FOR , CARE OF EQUIPMENT AND SAFETY. [code = OXYGEN THERAPY; RN/FISHERIES MANAGEMENT BIOLOGIST/OIL AND GAS WELL TREATMENT OPERATOR TO INSTRUCT ON OXYGEN MANAGEMENT INCLUDING: [...] Scheduled Test PRN VISITS ; NUMBER OF RN/FISHERIES MANAGEMENT BIOLOGIST/OIL AND GAS WELL TREATMENT OPERATOR VISITS: 2 RN/FISHERIES MANAGEMENT BIOLOGIST/OIL AND GAS WELL TREATMENT OPERATOR TO PERFORM: WOUND EVALUATE FOR THE FOLLOWING REASONS: OBSERVATION [code = PRN VISITS; NUMBER OF RN/FISHERIES MANAGEMENT BIOLOGIST/OIL AND GAS WELL TREATMENT OPERATOR VISITS: 2 RN/FISHERIES MANAGEMENT BIOLOGIST/OIL AND GAS WELL TREATMENT OPERATOR TO PERFORM: WOUND EVALUATE FOR THE FOLLOWING REASONS: OBSERVATION] Future Scheduled Test RN/FISHERIES MANAGEMENT BIOLOGIST/OIL AND GAS WELL TREATMENT OPERATOR TO PERFORM/TEACH ARTERIAL ULCER CARE TO RIGHT AND LEFT LEGS IRRIGATE/CLEANSE WITH WOUND CLEANZER APPLY CALCIUM SILVER ALGINATE SECURE WITH 4XR BORDER GAUZE CHANGE DRESSING EVERY 3 DAYS A WEEK FOR TWO WEEKS THEN 2 DAYS A WEEK TILL EOE DATE AND CHANGE PRN FOR DISLODGED DRESSING OR SOILING BY CAREGIVER AND PT IN BETWEEN NURSING VISITS [code = RN/FISHERIES MANAGEMENT BIOLOGIST/OIL AND GAS WELL TREATMENT OPERATOR TO PERFORM/TEACH ARTERIAL ULCER CARE TO [...] End Date/Time Encounter Type Admission Type Attending [facility] Care Department Encounter ID Discharge Date Discharge Status Discharge Condition Discharge Reason Percent Goals Met 2025-06-16 00:00:00 2025-06-24 00:00:00 Outpatient GALLO MOSE[facility] [id number] 2025-06-24 00:00:00 DISCHARGE TO HOME OR SELF CARE INDEPENDEN T IN THE HOME HH - NON COMPLIANT WITH PLAN OF TREATMENT 100.00
[2025-06-30 12:00] VITALS: BP 138/70; PULSE 55; RESP 17; O2SAT 99
[2025-06-30] MEDS: SODIUM CHLORIDE 0.9% IV (12:00)
[2025-06-30] MEDS: SODIUM FERRIC GLUCONATE IV (12:00)
--- OUTSIDE RECORDS SUMMARY | 2025-06-30 12:47 | XMS_ITS | Clinical Summary ---
Author Organization [facility] Address [address] [place] [address] Phone Care Team Providers Care Assurance Senior Manager Name Role Phone Unavailable Unavailable Conditions or Problems No information available. Medications No information available. Medications Administered No information available. Allergies, Adverse Reactions, Alerts No information available. Results No information available. Plan of Care No information available. Procedures No information available. Vital Signs No information available. Immunizations No information available. Advance Directives No information available.
--- OUTSIDE RECORDS SUMMARY | 2025-06-30 12:48 | XMS_ITS | Clinical Summary ---
Author Organization [employer] ([place], [place], [place], [place], [place]) Address [address] [place] [address] Care Team Providers Care Basting Cleaner Name Role Phone Ted Matute MD Primary Care Provider [phone] Ted Matute MD Unavailable [phone] Social History Tobacco Use Types Packs/Day Years [...] Risk Screening 08/12/2024 COVID-19 VACCINE (3 - 2024- season) 04/12/202502/2021, 11/15/2020 Influenza Vaccine (#1) 2025 Insurance MEDICAID OF [place] [facility] ADV Care Teams Basting Cleaner Relationship Specialty Start Date End Date Ted Matute MD [address] [facility] [address] [place] [id number] PCP - General Family Medicine 05/20/23 Ted Matute MD [address] [facility] [address] [place] [phone] Referring Physician Family Medicine 05/20/23
--- OUTSIDE RECORDS SUMMARY | 2025-06-30 12:48 | XMS_ITS | Encounter Summary ---
Author Organization [employer] ([place], [place], [place], [place], [place]) Address [address] [place] [address] Care Team Providers Care Aircraft Seat Upholsterer Name Role Phone Ted Matute MD Primary Care Provider + [phone] Ted Matute MD Unavailable [phone] Encounter Details Date Type Department Care Team (Late st Contact Info) Description 09/28/2024 Lab Requisition [facility] [address] [place] [address] Maria Luz Johnson, GENERATING STATION MECHANIC [address] [address] Sepsis, unspecified organism (HCC) Social History Tobacco [...] (HCC) documented in this encounter Care Teams Aircraft Seat Upholsterer Relationship Specialty Start Date End Date Ted Matute MD [address] [facility] [address] [place] [id number] PCP - General Family Medicine 05/20/23 Ted Matute MD [address] [facility] [address] [place] [phone] Referring Physician Family Medicine 05/20/23 documented as of this encounter
--- OUTSIDE RECORDS SUMMARY | 2025-06-30 12:48 | XMS_ITS | Data Portability ---
Author Organization [employer] [facility] Address [address] [place] [address] Assessment No assessment recorded. Plan of Treatment Reminders Order Date Submit Date Provider Last Modified By Organization Details Last Modified Time Details Appointments None recorded. Lab CBC w/ auto diff 2024 025 [facility]), [address] [place], [address], 5 08:12:19 CMP, serum or plasma 2024 025 [facility]), [address] [place], [address], 5 08:12:19 TSH + free T4, serum 2024 025 [facility]), [address] [place], [address], 5 08:12:19 lipid panel, serum 2024 025 [facility]), [address] [place], [address], 5 08:12:20 HbA1c (hemoglobin A1c), blood 2024 025 [facility]), [address] [place], [address], 5 08:12:21 vitamin D, 25-hydroxy, total, serum 2024 025 [facility] [address] [place], [address], 5 08:12:21 cobalamin and folate panel, serum 2024 025 [facility]), [address] [place], [address], 5 08:12:20 CBC w/ auto diff 2023 024 [facility]), [address] [place], [address], 4 13:07:33 CMP, serum or plasma 2023 024 [facility]), [address] [place], [address], 4 13:07:34 TSH + free T4, serum 2023 024 [facility]), [address] [place], [address], 4 13:07:33 BNP (B-type natriuretic peptide), serum or plasma 2023 024 [facility]), [address] [place] [address], [address], 4 13:07:35 lipid panel, serum 2023 024 [facility]), [address] [place], [address], 4 13:07:34 HbA1c (hemoglobin A1c), blood 2023 024 [facility]), [address] [place] [address], [address], 4 13:07:35 iron + TIBC + ferritin, serum 2023 024 [facility]), [address] [place] [address], [address], 4 13:07:32 Referral wound care referral 2024 025 [email or web address] [facility] David [place], [place], [address], 5 14:31:23 Procedures procedure, dressing change (PROC) 2023 024 [email or web address] 1 Not available 4 13:41:38 Surgeries None recorded. Imaging XR, knee, 3 view 2024 025 [email or web address], [address], 5 11:03:39 XR, foot, 3 or more view [address], [address], 5 17:03:27 Medication Orders cetirizine 10 mg tablet 2024 025 [facility], [address] [place] [address], [address], 5 16:17:01 azithromyci n 250 mg tablet 2024 025 [facility], [address] [place] [address], [address], 5 16:26:19 fluconazole 150 mg tablet 2024 025 [facility], [address] [place] [address], [address], 5 16:26:20 cetirizine 10 mg tablet 2024 025 [facility], [address] [place] [address], [address], 12:20:25 buspirone 7.5 mg tablet 2024 025 [facility], [address] [place] [address], [address], 12:35:28 Eliquis 5 mg tablet 2024 025 [facility], [address] [place] [address], [address], 13:20:40 cyclobenzap rine 10 mg tablet 2024 [facility], [address] [place] [address], [address], 12:35:26 bumetanide 1 mg tablet 2024 [facility], [address] [place] [address], [address], 12:35:27 cetirizine 10 mg tablet 2024 025 [facility], [address] [place] [address], [address], 17:16:37 ipratropium 0.5 mg-albutero l 3 mg (2.5 mg base)/3 mL nebulizatio n soln 2024 025 [facility], [address] [place] [address], [address], 14:43:28 mirtazapine 15 mg tablet 2024 025 [facility], [address] [place] [address], [address], 16:55:47 buspirone 7.5 mg tablet 2024 025 [facility], [address] [place] [address], [address], 14:43:26 sertraline 100 mg tablet 2024 025 [facility], [address] [place] [address], [address], 16:55:45 Gemtesa 75 mg tablet 2024 025 [facility], [address] [place] [address], [address], 13:10:17 bumetanide 1 mg tablet 2024 025 [facility], [address] [place] [address], [address], 14:43:25 meloxicam 7.5 mg tablet 2024 025 [facility], [address] [place] [address], [address], 14:43:28 famotidine 20 mg tablet 2024 025 [facility], [address] [place] [address], [address], 14:43:27 pantoprazol e 40 mg tablet,matty yed release 2024 025 [facility], [address] [place] [address], [address], 16:55:47 levothyroxi ne 25 mcg tablet 2024 025 [facility], [address] [place] [address], [address], 16:55:48 cetirizine 10 mg tablet 2024 025 [facility], [address] [place] [address], [address], 5 16:42:07 cyclobenzap rine 10 mg tablet 2024 025 [facility], [address] [place] [address], [address], 16:42:09 ipratropium 0.5 mg-albutero l 3 mg (2.5 mg base)/3 mL nebulizatio n soln 2024 025 [facility], [address] [place] [address], [address], 5 12:08:12 mirtazapine 15 mg tablet 2024 025 [facility], [address] [place] [address], [address], 16:42:02 buspirone 7.5 mg tablet 2024 025 [facility], [address] [place] [address], [address], 16:42:10 sertraline 100 mg tablet 2024 025 [facility], [address] [place] [address], [address], 5 16:42:10 valsartan 160 mg tablet 2024 025 [facility], [address] [place] [address], [address], 5 11:41:58 Gemtesa 75 mg tablet 2024 025 [facility], [address] [place] [address], [address], 5 16:42:06 bumetanide 1 mg tablet 2024 025 [facility], [address] [place] [address], [address], 5 11:49:35 meloxicam 7.5 mg tablet 2024 025 [facility], [address] [place] [address], [address], 5 16:42:10 famotidine 20 mg tablet 2024 025 [facility], [address] [place] [address], [address], 5 16:42:08 pantoprazol e 40 mg tablet,matty yed release 2024 025 [facility], [address] [place] [address], [address], 5 16:42:02 levothyroxi ne 25 mcg tablet 2024 025 [facility], [address] [place] [address], [address], 5 16:42:08 cetirizine 10 mg tablet 2023 024 [facility], [address] [place] [address], [address], 4 14:37:49 mirtazapine 15 mg tablet 2023 024 [facility], [address] [place] [address], [address], 4 14:37:57 buspirone 7.5 mg tablet 2023 024 [facility], [address] [place] [address], [address], 4 14:37:54 sertraline 100 mg tablet 2023 024 [facility], [address] [place] [address], [address], 14:37:51 Gemtesa 75 mg tablet 2023 024 [facility], [address] [place] [address], [address], 14:37:52 valsartan 160 mg tablet [email or web address] [place] [address] Pharmacy, [address] [place] [address], [address], 11:24:03 bumetanide 1 mg tablet 2023 [facility], [address] [place] [address], [address], 14:37:50 meloxicam 7.5 mg tablet 2023 024 [facility], [address] [place] [address], [address], 4 14:37:55 famotidine 20 mg tablet 2023 024 [facility], [address] [place] [address], [address], 4 14:37:56 pantoprazol e 40 mg tablet,matty yed release 2023 024 [facility], [address] [place] [address], [address], 4 14:37:51 levothyroxi ne 25 mcg tablet 2023 024 [facility], [address] [place] [address], [address], 14:37:55 Patient TargetsNo targets recorded. Patient Instructions Encounter Date Encounter Id Patient Instructions Last Modified By Organization Details Last Modified Time 10/29/2024 [id number] preventing osteoporosis: care instructions [email or web address] Not available 10/29/2024 14:18:25 functional assessment screening* Not available 10/29/2024 13:43:09 Reason for Referral Referring Physician: Sparkle Johnson, Family Medicine, Encounter Date: 04/23/2025 Results Created Date Observation Date Name Description Value Unit Range Abnormal Flag Note LastModifiedBy Organization Detail LastModifiedTime 07/30/20 24 07/31/2024 FE+TI BC+FE R iron bind.cap.(TI BC) 282 ug/dL 250-45 0 normal Not Available [facility] ([facility]) [address] [place], [address], 07/31/2024 13:07:32 07/30/20 24 07/31/2024 FE+TI BC+FE R UIBC 249 ug/dL 118-36 9 normal Not Available [facility] ([facility]) [address] [place], [address], 07/31/2024 13:07:32 07/30/20 24 07/31/2024 FE+TI BC+FE R iron 33 ug/dL 27-139 normal Not Available [facility] ([facility]) [address] [place], [address], 07/31/2024 13:07:32 07/30/20 24 07/31/2024 FE+TI BC+FE R iron saturation 12 % 15-55 below low normal Not Available [facility] ([facility]) [address] [place], [address], 07/31/2024 13:07:32 07/30/20 24 07/31/2024 FE+TI BC+FE R ferritin 86 NG/mL 15-150 normal Not Available [facility] ([facility]) [address] [place], [address], 07/31/2024 13:07:32 07/30/20 24 07/31/2024 TSH+F REE T4 TSH 4.670 uIU/m L 0.450- 4.500 above high normal Not Available [facility] ([facility]) [address] [place], [address], 07/31/2024 13:07:33 07/30/20 24 07/31/2024 TSH+F REE T4 T4,free(dire ct) 0.84 NG/dL 0.82-1 .77 normal Not Available [facility] ([facility]) [address] [place], [address], 07/31/2024 13:07:33 07/30/20 24 07/31/2024 CBC WITH DIFFE RENTI AL/PL ATELE T WBC 5.7 x10e3 /uL 3.4-10 .8 normal Not Available [facility] ([facility]) [address] [place], [address], 07/31/2024 13:07:33 07/30/20 24 07/31/2024 CBC WITH DIFFE RENTI AL/PL ATELE T RBC 3.87 x10e6 /uL 3.77-5 .28 normal Not Available [facility] ([facility]) [address] [place], [address], 07/31/2024 13:07:33 07/30/20 24 07/31/2024 CBC WITH DIFFE RENTI AL/PL ATELE T hemoglobin 10.1 g/dL 11.1-1 5.9 below low normal Not Available [facility] ([facility]) [address] [place], [address], 07/31/2024 13:07:33 07/30/20 24 07/31/2024 CBC WITH DIFFE RENTI AL/PL ATELE T hematocrit 32.6 % 34.0-4 6.6 below low normal Not Available [facility] ([facility]) [address] [place], [address], 07/31/2024 13:07:33 07/30/20 24 07/31/2024 CBC WITH DIFFE RENTI AL/PL ATELE T MCV 84 fL 79-97 normal Not Available [facility] ([facility]) [address] [place], [address], 07/31/2024 13:07:33 07/30/20 24 07/31/2024 CBC WITH DIFFE RENTI AL/PL ATELE T MCH 26.1 pg 26.6-3 3.0 below low normal Not Available [facility] ([facility]) [address] [place], [address], 07/31/2024 13:07:33 07/30/20 24 07/31/2024 CBC WITH DIFFE RENTI AL/PL ATELE T MCHC 31.0 g/dL 31.5-3 5.7 below low normal Not Available [facility] ([facility]) [address] [place], [address], 07/31/2024 13:07:33 07/30/20 24 07/31/2024 CBC WITH DIFFE RENTI AL/PL ATELE T RDW 16.4 % 11.7-1 5.4 above high normal Not Available [facility] ([facility]) [address] [place], [address], 07/31/2024 13:07:33 07/30/20 24 07/31/2024 CBC WITH DIFFE RENTI AL/PL ATELE T platelets 147 x10e3 /uL 150-45 0 below low normal Not Available [facility] ([facility]) [address] [place], [address], 07/31/2024 13:07:33 07/30/20 24 07/31/2024 CBC WITH DIFFE RENTI AL/PL ATELE T neutrophils 68 % not estab. normal Not Available [facility] ([facility]) [address] [facility], [place], [address], 07/31/2024 13:07:33 07/30/20 24 07/31/2024 CBC WITH DIFFE RENTI AL/PL ATELE T lymphs 19 % not estab. normal Not Available [facility] ([facility]) [address] [facility], [place], [address], 07/31/2024 13:07:33 07/30/20 24 07/31/2024 CBC WITH DIFFE RENTI AL/PL ATELE T monocytes 6 % not estab. normal Not Available [facility] ([facility]) [address] [facility], [place], [address], 07/31/2024 13:07:33 07/30/20 24 07/31/2024 CBC WITH DIFFE RENTI AL/PL ATELE T eos 6 % not estab. normal Not Available [facility] ([facility]) [address] [facility], [place], [address], 07/31/2024 13:07:33 07/30/20 24 07/31/2024 CBC WITH DIFFE RENTI AL/PL ATELE T basos 1 % not estab. normal Not Available [facility] ([facility]) [address] [facility], [place], [address], 07/31/2024 13:07:33 07/30/20 24 07/31/2024 CBC WITH DIFFE RENTI AL/PL ATELE T immature cells GROCERY CADDY Not Available [facility] ([facility]) [address] [facility], [place], [address], 07/31/2024 13:07:33 07/30/20 24 07/31/2024 CBC WITH DIFFE RENTI AL/PL ATELE T neutrophils (absolute) 3.9 x10e3 /uL 1.4-7. 0 normal Not Available [facility] ([facility]) [address] [facility], [place], [address], 07/31/2024 13:07:33 07/30/20 24 07/31/2024 CBC WITH DIFFE RENTI AL/PL ATELE T lymphs (absolute) 1.1 x10e3 /uL 0.7-3. 1 normal Not Available [facility] ([facility]) [address] [facility], [place], [address], 07/31/2024 13:07:33 07/30/20 24 07/31/2024 CBC WITH DIFFE RENTI AL/PL ATELE T monocytes(ab solute) 0.3 x10e3 /uL 0.1-0. 9 normal Not Available [facility] ([facility]) [address] [facility], [place], [address], 07/31/2024 13:07:33 07/30/20 24 07/31/2024 CBC WITH DIFFE RENTI AL/PL ATELE T eos (absolute) 0.4 x10e3 /uL 0.0-0. 4 normal Not Available [facility] ([facility]) [address] [facility], [place], [address], 07/31/2024 13:07:33 07/30/20 24 07/31/2024 CBC WITH DIFFE RENTI AL/PL ATELE T baso (absolute) 0.0 x10e3 /uL 0.0-0. 2 normal Not Available [facility] ([facility]) [address] [place], [address], 07/31/2024 13:07:33 07/30/20 24 07/31/2024 CBC WITH DIFFE RENTI AL/PL ATELE T immature granulocytes 0 % not estab. Not Available [facility] ([facility]) [address] [facility], [place], [address], 07/31/2024 13:07:33 07/30/20 24 07/31/2024 CBC WITH DIFFE RENTI AL/PL ATELE T immature grans (abs) 0.0 x10e3 /uL 0.0-0. 1 Not Available [facility] ([facility]) [address] [facility], [place], [address], 07/31/2024 13:07:33 07/30/20 24 07/31/2024 CBC WITH DIFFE RENTI AL/PL ATELE T NRBC GROCERY CADDY Not Available [facility] ([facility]) [address] [facility], [place], [address], 07/31/2024 13:07:33 07/30/20 24 07/31/2024 CBC WITH DIFFE RENTI AL/PL ATELE T hematology comments: GROCERY CADDY Not Available [facility] ([facility]) [address] [facility], [place], [address], 07/31/2024 13:07:33 07/30/20 24 07/31/2024 COMP. METAB OLIC PANEL (14) glucose 95 mg/dL 70-99 normal Not Available [facility] ([facility]) [address] [facility], [place], [address], 07/31/2024 13:07:34 07/30/20 24 07/31/2024 COMP. METAB OLIC PANEL (14) BUN 54 mg/dL 8-27 above high normal Not Available [facility] ([facility]) [address] [facility], [place], [address], 07/31/2024 13:07:34 07/30/20 24 07/31/2024 COMP. METAB OLIC PANEL (14) creatinine 1.65 mg/dL 0.57-1 .00 above high normal Not Available [facility] ([facility]) [address] [facility], [place], [address], 07/31/2024 13:07:34 07/30/20 24 07/31/2024 COMP. METAB OLIC PANEL (14) eGFR 31 mL/mi n/1.7 3 >59 below low normal Not Available [facility] ([facility]) [address] [place], [address], 07/31/2024 13:07:34 07/30/20 24 07/31/2024 COMP. METAB OLIC PANEL (14) BUN/creatini ne ratio 33 12-28 above high normal Not Available [facility] ([facility]) [address] [place], [address], 07/31/2024 13:07:34 07/30/20 24 07/31/2024 COMP. METAB OLIC PANEL (14) sodium 141 mmol/ L 134-14 4 normal Not Available [facility] ([facility]) [address] [place], [address], 07/31/2024 13:07:34 07/30/20 24 07/31/2024 COMP. METAB OLIC PANEL (14) potassium 6.0 mmol/ L 3.5-5. 2 above high normal Not Available [facility] ([facility]) [address] [place], [address], 07/31/2024 13:07:34 07/30/20 24 07/31/2024 COMP. METAB OLIC PANEL (14) chloride 110 mmol/ L 96-106 above high normal Not Available [facility] ([facility]) [address] [place], [address], 07/31/2024 13:07:34 07/30/20 24 07/31/2024 COMP. METAB OLIC PANEL (14) carbon dioxide, total 19 mmol/ L 20-29 below low normal Not Available [facility] ([facility]) [address] [place], [address], 07/31/2024 13:07:34 07/30/20 24 07/31/2024 COMP. METAB OLIC PANEL (14) calcium 9.0 mg/dL 8.7-10 .3 normal Not Available [facility] ([facility]) [address] [place], [address], 07/31/2024 13:07:34 07/30/20 24 07/31/2024 COMP. METAB OLIC PANEL (14) protein, total 7.0 g/dL 6.0-8. 5 normal Not Available [facility] ([facility]) [address] [place], [address], 07/31/2024 13:07:34 07/30/20 24 07/31/2024 COMP. METAB OLIC PANEL (14) albumin 4.2 g/dL 3.8-4. 8 normal Not Available [facility] ([facility]) [address] [place], [address], 07/31/2024 13:07:34 07/30/20 24 07/31/2024 COMP. METAB OLIC PANEL (14) globulin, total 2.8 g/dL 1.5-4. 5 Not Available [facility] ([facility]) [address] [facility], [place], [address], 07/31/2024 13:07:34 07/30/20 24 07/31/2024 COMP. METAB OLIC PANEL (14) bilirubin, total 0.2 mg/dL 0.0-1. 2 normal Not Available [facility] ([facility]) [address] [place], [address], 07/31/2024 13:07:34 07/30/20 24 07/31/2024 COMP. METAB OLIC PANEL (14) alkaline phosphatase 80 IU/L 44-121 normal Not Available [facility] ([facility]) [address] [place], [address], 07/31/2024 13:07:34 07/30/20 24 07/31/2024 COMP. METAB OLIC PANEL (14) AST (SGOT) 13 IU/L 0-40 normal Not Available [facility] ([facility]) [address] [place], [address], 07/31/2024 13:07:34 07/30/20 24 07/31/2024 COMP. METAB OLIC PANEL (14) ALT (SGPT) 6 IU/L 0-32 normal Not Available [facility] ([facility]) [address] [facility], [place], [address], 07/31/2024 13:07:34 07/30/20 24 07/31/2024 LIPID PANEL cholesterol, total 145 mg/dL 100-19 9 normal Not Available [facility] ([facility]) [address] [place], [address], 07/31/2024 13:07:34 07/30/20 24 07/31/2024 LIPID PANEL triglyceride s 92 mg/dL 0-149 normal Not Available [facility] ([facility]) [address] [place], [address], 07/31/2024 13:07:34 07/30/20 24 07/31/2024 LIPID PANEL HDL cholesterol 39 mg/dL >39 below low normal Not Available [facility] ([facility]) [address] [place], [address], 07/31/2024 13:07:34 07/30/20 24 07/31/2024 LIPID PANEL VLDL cholesterol dee 17 mg/dL 5-40 Not Available [facility] ([facility]) [address] [place], [address], 07/31/2024 13:07:34 07/30/20 24 07/31/2024 LIPID PANEL LDL chol calc (rust) 89 mg/dL 0-99 Not Available [facility] ([facility]) [address] [place], [address], 07/31/2024 13:07:34 07/30/20 24 07/31/2024 LIPID PANEL LDL calc comment: GROCERY CADDY Not Available [facility] ([facility]) [address] [place], [address], 07/31/2024 13:07:34 07/30/20 24 07/31/2024 HEMOG LOBIN A1C hemoglobin A1C 5.8 % 4.8-5. 6 above high normal Predi abete s: 5.7 - 6.4 Diabe leena: >6.4 Glyce suzanne contr ol for adult s with diabe elena: <7.0 Not Available [facility] ([facility]) [address] [facility], [place], [address], 07/31/2024 13:07:34 07/30/20 24 07/31/2024 B-TYP E NATRI URETI C PEPTI DE B-type natriuretic peptide 79.9 pg/mL 0.0-10 0.0 Sieme ns ADVIA [facility] XP metho dolog y Not Available [facility] ([facility]) [address] [place], [address], 07/31/2024 13:07:35 01/23/20 25 01/23/2025 TSH+F REE T4 TSH 1.470 uIU/m L 0.450- 4.500 normal Not Available [facility] ([facility]) [address] [facility], [place], [address], 01/23/2025 08:12:18 01/23/20 25 01/23/2025 TSH+F REE T4 T4,free(dire ct) 1.02 NG/dL 0.82-1 .77 normal Not Available [facility] ([facility]) [address] [place], [address], 01/23/2025 08:12:18 01/23/20 25 01/23/2025 CBC WITH DIFFE RENTI AL/PL ATELE T WBC 8.2 x10e3 /uL 3.4-10 .8 normal Not Available [facility] ([facility]) [address] [place], [address], 01/23/2025 08:12:19 01/23/2001/23/2025 CBC WITH DIFFE RENTI AL/PL ATELE T RBC 3.19 x10e6 /uL 3.77-5 .28 below low normal Not Available [facility] ([facility]) [address] [place], [address], 01/23/2025 08:12:19 01/23/2001/23/2025 CBC WITH DIFFE RENTI AL/PL ATELE T hemoglobin 8.5 g/dL 11.1-1 5.9 below low normal Not Available [facility] ([facility]) [address] [place], [address], 01/23/2025 08:12:19 01/23/2001/23/2025 CBC WITH DIFFE RENTI AL/PL ATELE T hematocrit 28.2 % 34.0-4 6.6 below low normal Not Available [facility] ([facility]) [address] [place], [address], 01/23/2025 08:12:19 01/23/2001/23/2025 CBC WITH DIFFE RENTI AL/PL ATELE T MCV 88 fL 79-97 normal Not Available [facility] ([facility]) [address] [place], [address], 01/23/2025 08:12:19 01/23/2001/23/2025 CBC WITH DIFFE RENTI AL/PL ATELE T MCH 26.6 pg 26.6-3 3.0 normal Not Available [facility] ([facility]) [address] [place], [address], 01/23/2025 08:12:19 01/23/2001/23/2025 CBC WITH DIFFE RENTI AL/PL ATELE T MCHC 30.1 g/dL 31.5-3 5.7 below low normal Not Available [facility] ([facility]) [address] [place], [address], 01/23/2025 08:12:19 01/23/2001/23/2025 CBC WITH DIFFE RENTI AL/PL ATELE T RDW 14.8 % 11.7-1 5.4 Not Available [facility] ([facility]) [address] [facility], [place], [address], 01/23/2025 08:12:19 01/23/2001/23/2025 CBC WITH DIFFE RENTI AL/PL ATELE T platelets 168 x10e3 /uL 150-45 0 normal Not Available [facility] ([facility]) [address] [facility], [place], [address], 01/23/2025 08:12:19 01/23/2001/23/2025 CBC WITH DIFFE RENTI AL/PL ATELE T neutrophils 78 % not estab. normal Not Available [facility] ([facility]) [address] [facility], [place], [address], 01/23/2025 08:12:19 01/23/2001/23/2025 CBC WITH DIFFE RENTI AL/PL ATELE T lymphs 13 % not estab. normal Not Available [facility] ([facility]) [address] [facility], [place], [address], 01/23/2025 08:12:19 01/23/2001/23/2025 CBC WITH DIFFE RENTI AL/PL ATELE T monocytes 6 % not estab. normal Not Available [facility] ([facility]) [address] [facility], [place], [address], 01/23/2025 08:12:19 01/23/2001/23/2025 CBC WITH DIFFE RENTI AL/PL ATELE T eos 3 % not estab. normal Not Available [facility] ([facility]) [address] [facility], [place], [address], 01/23/2025 08:12:19 01/23/2001/23/2025 CBC WITH DIFFE RENTI AL/PL ATELE T basos 0 % not estab. normal Not Available [facility] ([facility]) [address] [place], [address], 01/23/2025 08:12:19 01/23/2001/23/2025 CBC WITH DIFFE RENTI AL/PL ATELE T immature cells GROCERY CADDY Not Available [facility] ([facility]) [address] [facility], [place], [address], 01/23/2025 08:12:19 01/23/2001/23/2025 CBC WITH DIFFE RENTI AL/PL ATELE T neutrophils (absolute) 6.3 x10e3 /uL 1.4-7. 0 normal Not Available [facility] ([facility]) [address] [facility], [place], [address], 01/23/2025 08:12:19 01/23/2001/23/2025 CBC WITH DIFFE RENTI AL/PL ATELE T lymphs (absolute) 1.1 x10e3 /uL 0.7-3. 1 normal Not Available [facility] ([facility]) [address] [place], [address], 01/23/2025 08:12:19 01/23/2001/23/2025 CBC WITH DIFFE RENTI AL/PL ATELE T monocytes(ab solute) 0.5 x10e3 /uL 0.1-0. 9 normal Not Available [facility] ([facility]) [address] [place], [address], 01/23/2025 08:12:19 01/23/2001/23/2025 CBC WITH DIFFE RENTI AL/PL ATELE T eos (absolute) 0.2 x10e3 /uL 0.0-0. 4 normal Not Available [facility] ([facility]) [address] [place], [address], 01/23/2025 08:12:19 01/23/20 25 01/23/2025 CBC WITH DIFFE RENTI AL/PL ATELE T baso (absolute) 0.0 x10e3 /uL 0.0-0. 2 normal Not Available [facility] ([facility]) [address] [facility], [place], [address], 01/23/2025 08:12:19 01/23/20 25 01/23/2025 CBC WITH DIFFE RENTI AL/PL ATELE T immature granulocytes 0 % not estab. Not Available [facility] ([facility]) [address] [facility], [place], [address], 01/23/2025 08:12:19 01/23/20 25 01/23/2025 CBC WITH DIFFE RENTI AL/PL ATELE T immature grans (abs) 0.0 x10e3 /uL 0.0-0. 1 Not Available [facility] ([facility]) [address] [facility], [place], [address], 01/23/2025 08:12:19 01/23/20 25 01/23/2025 CBC WITH DIFFE RENTI AL/PL ATELE T NRBC GROCERY CADDY Not Available [facility] ([facility]) [address] [facility], [place], [address], 01/23/2025 08:12:19 01/23/20 25 01/23/2025 CBC WITH DIFFE RENTI AL/PL ATELE T hematology comments: GROCERY CADDY Not Available [facility] ([facility]) [address] [facility], [place], [address], 01/23/2025 08:12:19 01/23/20 25 01/23/2025 COMP. METAB OLIC PANEL (14) glucose 93 mg/dL 70-99 normal Not Available [facility] ([facility]) [address] [facility], [place], [address], 01/23/2025 08:12:19 01/23/20 25 01/23/2025 COMP. METAB OLIC PANEL (14) BUN 69 mg/dL 8-27 above high normal Not Available [facility] ([facility]) [address] [place], [address], 01/23/2025 08:12:19 01/23/20 25 01/23/2025 COMP. METAB OLIC PANEL (14) creatinine 3.89 mg/dL 0.57-1 .00 above high normal Not Available [facility] ([facility]) [address] [place], [address], 01/23/2025 08:12:19 01/23/20 25 01/23/2025 COMP. METAB OLIC PANEL (14) eGFR 11 mL/mi n/1.7 3 >59 below low normal Not Available [facility] ([facility]) [address] [facility], [place], [address], 01/23/2025 08:12:19 01/23/20 25 01/23/2025 COMP. METAB OLIC PANEL (14) BUN/creatini ne ratio 18 12-28 normal Not Available [facility] ([facility]) [address] [place], [address], 01/23/2025 08:12:19 01/23/20 25 01/23/2025 COMP. METAB OLIC PANEL (14) sodium 142 mmol/ L 134-14 4 normal Not Available [facility] ([facility]) [address] [place], [address], 01/23/2025 08:12:19 01/23/20 25 01/23/2025 COMP. METAB OLIC PANEL (14) potassium 4.6 mmol/ L 3.5-5. 2 normal Not Available [facility] ([facility]) [address] [place], [address], 01/23/2025 08:12:19 01/23/20 25 01/23/2025 COMP. METAB OLIC PANEL (14) chloride 101 mmol/ L 96-106 normal Not Available [facility] ([facility]) [address] [place], [address], 01/23/2025 08:12:19 01/23/20 25 01/23/2025 COMP. METAB OLIC PANEL (14) carbon dioxide, total 22 mmol/ L 20-29 normal Not Available [facility] ([facility]) [address] [place], [address], 01/23/2025 08:12:19 01/23/20 25 01/23/2025 COMP. METAB OLIC PANEL (14) calcium 8.7 mg/dL 8.7-10 .3 normal Not Available [facility] ([facility]) [address] [place], [address], 01/23/2025 08:12:19 01/23/20 25 01/23/2025 COMP. METAB OLIC PANEL (14) protein, total 6.7 g/dL 6.0-8. 5 normal Not Available [facility] ([facility]) [address] [place], [address], 01/23/2025 08:12:19 01/23/20 25 01/23/2025 COMP. METAB OLIC PANEL (14) albumin 3.9 g/dL 3.8-4. 8 normal Not Available [facility] ([facility]) [address] [place], [address], 01/23/2025 08:12:19 01/23/20 25 01/23/2025 COMP. METAB OLIC PANEL (14) globulin, total 2.8 g/dL 1.5-4. 5 Not Available [facility] ([facility]) [address] [place], [address], 01/23/2025 08:12:19 01/23/20 25 01/23/2025 COMP. METAB OLIC PANEL (14) bilirubin, total 0.3 mg/dL 0.0-1. 2 normal Not Available [facility] ([facility]) [address] [place], [address], 01/23/2025 08:12:19 01/23/20 25 01/23/2025 COMP. METAB OLIC PANEL (14) alkaline phosphatase 80 IU/L 44-121 normal Not Available [facility] ([facility]) [address] [place], [address], 01/23/2025 08:12:19 01/23/20 25 01/23/2025 COMP. METAB OLIC PANEL (14) AST (SGOT) 8 IU/L 0-40 normal Not Available [facility] ([facility]) [address] [place], [address], 01/23/2025 08:12:19 01/23/20 25 01/23/2025 COMP. METAB OLIC PANEL (14) ALT (SGPT) 5 IU/L 0-32 normal Not Available [facility] ([facility]) [address] [place], [address], 01/23/2025 08:12:19 01/23/20 25 01/23/2025 LIPID PANEL cholesterol, total 96 mg/dL 100-19 9 below low normal Not Available [facility] ([facility]) [address] [place], [address], 01/23/2025 08:12:20 01/23/20 25 01/23/2025 LIPID PANEL triglyceride s 90 mg/dL 0-149 normal Not Available [facility] ([facility]) [address] [place], [address], 01/23/2025 08:12:20 01/23/20 25 01/23/2025 LIPID PANEL HDL cholesterol 28 mg/dL >39 below low normal Not Available [facility] ([facility]) [address] [place], [address], 01/23/2025 08:12:20 01/23/20 25 01/23/2025 LIPID PANEL VLDL cholesterol dee 18 mg/dL 5-40 Not Available [facility] ([facility]) [address] [place], [address], 01/23/2025 08:12:20 01/23/20 25 01/23/2025 LIPID PANEL LDL chol calc (rust) 50 mg/dL 0-99 Not Available [facility] ([facility]) [address] [place], [address], 01/23/2025 08:12:20 01/23/20 25 01/23/2025 LIPID PANEL LDL calc comment: GROCERY CADDY Not Available [facility] ([facility]) [address] [facility], [place], [address], 01/23/2025 08:12:20 01/23/20 25 01/23/2025 VITAM IN B12 AND FOLAT E vitamin B12 367 pg/mL 232-12 45 normal Not Available [facility] ([facility]) [address] [facility], [place], [address], 01/23/2025 08:12:20 01/23/2001/23/2025 VITAM IN B12 AND FOLAT E folate (folic acid), serum 4.5 NG/mL >3.0 normal A serum folat e vicente ntrat ion of less than 3.1 ng/mL is consi dered to repre sent clini dee defic iency . Not Available [facility] ([facility]) [address] [facility], [place], [address], 01/23/2025 08:12:20 01/23/2001/23/2025 HEMOG LOBIN A1C hemoglobin A1C 5.6 % 4.8-5. 6 normal Predi abete s: 5.7 - 6.4 Diabe leena: >6.4 Glyce suzanne contr ol for adult s with diabe leena: <7.0 Not Available [facility] ([facility]) [address] [place], [address], 01/23/2025 08:12:21 01/23/20 25 01/23/2025 VITAM IN D, 25-HY DROXY vitamin D, 25-hydroxy 22.0 NG/mL 30.0-1 00.0 below low normal Vitam in D defic iency has been defin ed by the Insti tute of Medic ine and an Endoc rine Socie ty pract ice guide line as a level of serum 25-OH vitam in D less than 20 ng/mL (1,2) . The Endoc rine Socie ty went on to formerly [facility], [facility] er defin e vitam in D insuf ficie ncy as a level betwe en 21 and 29 ng/mL (2). 1. IOM (Inst itute of Medic ine). 2009. Christiano ry refer ence intcuauhtemoc es for calci um and D. Melanie vargas [place]: [facility] Press . 2. Cristiano amador MF, Elyssa poe [place], Veronica off-F errar i BOYD, et al. Evalu ation , treat ment, and preve ntion of vitam in D defic iency : an Endoc rine Socie ty clini dee pract ice guide line. JCEM. 2010; 96(7) :1911 -30. Not Available [facility] ([facility]) [address] [facility], [place], [address], 01/23/2025 08:12:21 07/03/20 24 07/03/2024 XR, chest No observ ation record ed. [address], [place], [address], 10/13/2024 15:26:47 07/04/20 24 07/03/2024 elect christine sosa am No observ ation record ed. [address], [place], [address], 10/13/2024 15:27:04 07/06/20 24 07/03/2024 US, doppl er echoc ardio gram No observ ation record ed. [address], [place], [place], [address], 10/13/2024 15:28:25 10/30/19 25 XR, foot, 3 or more view No observ ation record ed. [address], [place], [address], 11/02/2024 09:44:43 12/21/19 25 12/17/2024 stres s echoc ardio gram No observ ation record ed. [address], [place], [place], [address], 12/23/2024 09:33:30 12/21/19 25 12/17/2024 stres s echoc ardio gram No observ ation record ed. [address], [place], [place], [address], 12/23/2024 09:33:12 12/25/19 25 12/21/2024 stres s echoc ardio gram No observ ation record ed. [email or web address] [facility] [address], [place], [place], [address], 12/25/2024 09:40:14 01/14/20 25 01/13/2025 XR, chest No observ ation record ed. [address], [place], [place], [address], 01/15/2025 10:15:17 01/15/20 25 01/13/2025 elect christine sosa am, routi ne ECG, 12 leads min No observ ation record ed. [address], [place], [place], [address], 01/15/2025 10:15:33 01/15/20 25 01/13/2025 stres s echoc ardio gram No observ ation record ed. [place] [address], [place], [address], 01/15/2025 10:15:45 01/16/20 25 01/14/2025 stres s echoc ardio gram No observ ation record ed. [facility]28 [facility] [address], [place], [place], [address], 01/15/2025 10:16:14 01/16/20 25 01/13/2025 elect rocar diogr am, routi ne ECG, 12 leads min No observ [facility]ion record ed. [facility] [address], [place], [address], 01/18/2025 10:44:21 01/19/20 25 01/15/2025 elect rocar diogr am, routi ne ECG, 12 leads min No observ ation record ed. [email or web address]8 [facility] [address], [place], [place], [address], 01/18/2025 10:41:44 03/05/20 25 03/05/2025 US, renal No observ ation record ed. [email or web address] (Radiology) 9 [facility], [place], [address], 03/16/2025 12:11:52 04/07/20 25 04/07/2025 XR, chest , 2 view No observ ation record ed. [email or web address] [facility] [address], [place], [place], [address], 04/09/2025 11:52:00 04/08/20 25 04/07/2025 elect rocar diogr am, routi ne ECG, 12 leads min No observ ation record ed. [facility]28 [facility] [address], [place], [place], [address], 04/09/2025 13:11:16 04/08/20 25 04/08/2025 US, doppl er echoc ardio gram No observ ation record ed. [email or web address] [facility] [address], [place], [address], 04/09/2025 13:10:28 04/26/20 XR, knee, 3 view No observ ation record ed. [address], [place], [address], 05/03/2025 13:30:05 05/06/2005/05/2025 XR, chest No observ ation record ed. [address], [place], [address], 05/06/2025 17:38:38 06/07/2006/07/2025 XR, chest No observ ation record ed. [address], [place], [address], 06/15/2025 10:17:22 06/08/2006/07/2025 elect christine palomogr am No observ ation record ed. [place] [address], [place], [address], 06/15/2025 10:17:44 06/08/2006/08/2025 imagi ng/di agnos tic resul t No observ ation record ed. [address], [place], [address], 06/15/2025 10:18:41 06/08/2006/08/2025 CT, angio gram, chest , w/ contr ast No observ ation record ed. [place] [address], [place], [address], 06/15/2025 10:19:06 Result Notes None recorded. Problems Name Problem SNOMED Code Status Onset Date Resolution Date Notes Provider Name and Address Organization Details Recorded Time Generalized anxiety disorder 63928600 Active 2023 Rey Wiseman null, [employer] 5 11:02:08 Allergic rhinitis 30131060 Active 2023 Rey Wiseman null, [employer] [facility] 5 11:02:31 Gastroesophage al reflux disease without esophagitis 058894110 Active 2023 Rey Wiseman null, [facility] 5 11:02:05 Edema of lower extremity 949119281 Active 2023 Rey Smileyy null, [facility] 5 11:01:59 Overactive urinary bladder 971328806 Active 2023 Rey Wiseman null, [facility] [facility] 5 11:02:16 Chronic obstructive pulmonary disease 05919155 Active 2023 Rey Wiseman null, [facility] [facility] 5 11:01:51 Hypothyroidism 35181296 Active 2023 Rey Wiseman null, [employer] 5 11:02:10 Pain of multiple joints 07763450 Active 2023 Rey Smileyy null, [facility] [facility] 5 11:02:20 Moderate recurrent major depression 96913289 Active 2023 Rey Smileyy null, [facility] [facility] 5 11:02:13 Essential hypertension 54002227 Active 2023 Rey [place] null, [facility] 5 11:02:02 Ulcer of lower extremity 83646918 Active 2023 Rey Diorlly null, [facility] 5 11:02:26 Dyspnea 026782265 Active 2023 Rey [place] null, [facility] 5 11:01:54 Paroxysmal atrial fibrillation 836796945 Active 2024 W/ RVR Rey gandara, [employer] 5 11:03:05 Chronic kidney disease stage 3 608960827 Active 2024 Rey gandara [employer] 5 11:03:28 Problem Notes None recorded. Procedures Surgical History Date Name Laterality Status Provider Name and Address Organization Details Recorded Time procedure on hip joint completed Rey Wiseman [employer] 12/20/2023 14:59:22 Imaging Results None recorded. Procedure Notes None recorded. Medical Equipment None Reported. Allergies Allergen ID Allergen Name Allergen Category Reaction Reaction Severity Criticality Documentation Date Start Date Code Code System Note Provider Name and Address Organization Details Recorded Time 84097 cephalexi n medicatio n Not available Not available Not available 12/26/2023 2231 RxNorm Rey gandara, [employer] 4 15:56:24 97828 butalbita l medicatio n Not available Not available Not available 12/26/2023 45956 RxNorm Rey gandara, [employer] 4 15:56:35 57696 propoxyph will medicatio n Not available Not available Not available 12/26/2023 8785 RxNorm Rey gandara, [employer] 4 15:56:57 32189 tetracycl ine medicatio n Not available Not available Not available 12/26/2023 16472 RxNorm Rey gandara, [employer] 4 15:57:08 05906 Sudha medicatio n Not available Not available Not available 12/26/2023 46584 6 RxNorm Rey gandara, [employer] 4 15:57:24 14535 Claritin medicatio n Not available Not available Not available 12/26/2023 78229 6 RxNorm Rey gandara, [facility] 15:57:36 02355 Macrobid medicatio n Not available Not available Not available 12/26/2023 34505 1 RxNorm Rey gandara, [facility] 15:57:47 70586 doxycycli ne Not available Not available Not available Not available 12/26/2023 3640 RxNorm Rey gandara, [facility] 15:59:26 26997 pseudoeph edrine Not available Not available Not available Not available 12/26/2023 8896 RxNorm Rey gandara, [employer] 15:59:38 39899 guaifenes in medicatio n Not available Not available Not available 12/26/2023 5032 RxNorm Rey gandara, [employer] 15:59:49 91661 hydrocodo ne Not available Not available Not available Not available 12/26/2023 5489 RxNorm Rey gandara, [employer] 16:00:09 84563 Product containin g penicilli n (product) medicatio n Not available Not available Not available 12/26/2023 13875 8001 SNOMED Rey gandara, [employer] 16:00:16 53873 Substance with sulfonami de structure and antibacte rial mechanism of action (substanc e) medicatio n Not available Not available Not available 12/26/2023 19478 8003 SNOMED Rey gandara, [facility] 16:00:27 63508 iodine medicatio n Not available Not available Not available 12/26/2023 5933 RxNorm Rey gandara, [facility] 16:00:35 45851 Seldane medicatio n Not available Not available Not available 12/26/2023 61722 0 RxNorm Rey gandara, [employer] 4 16:00:44 78410 Midrin medicatio n Not available Not available Not available 12/26/2023 19964 RxNorm Rey gandara, [employer] 4 16:00:51 89746 fluticaso ne Not available Not available Not available Not available 12/26/2023 97282 RxNorm makes arthr itis worse Rey gandara, [employer] 4 16:01:11 91671 codeine medicatio n Not available Not available Not available 12/26/2023 2670 RxNorm nervo us Rey gandara, [employer] 4 16:01:29 06190 mometason e furoate medicatio n Not available Not available Not available 12/26/2023 49453 RxNorm cough and sore throa t Rey gandara, [employer] 4 16:02:04 59723 clindamyc in Not available Not available Not available Not available 12/26/2023 2582 RxNorm GI Rey gandara, [employer] 4 16:02:45 06252 erythromy quan medicatio n Not available Not available Not available 12/26/2023 4053 RxNorm rash Rey gandara, [employer] 4 16:02:58 17265 Singulair medicatio n Not available Not available Not available 12/26/2023 78097 9 RxNorm red face and numbn ess Rey Wiseman [employer], [employer] 4 16:03:16 22989 Motrin medicatio n Not available Not available Not available 12/26/2023 19199 8 RxNorm GI Rey gandara, [employer] 4 16:03:32 94664 Naprosyn medicatio n Not available Not available Not available 12/26/2023 2 RxNorm GI Rey gandara, [facility] 4 16:03:43 14554 Relafen medicatio n Not available Not available Not available 12/26/202398780 4 RxNorm GI Rey gandara, [facility] 4 16:04:04 80052 tramadol medicatio n Not available Not available Not available 12/26/2023 40943 RxNorm dizzi ness Rey gandara, [employer] 4 16:04:17 87635 imipramin e Not available Not available Not available Not available 12/26/2023 5691 RxNorm urina ry reten tion Rey gandara, [facility] 4 16:22:41 68726 lisinopri l medicatio n Not available Not available Not available 12/26/2023 25646 RxNorm cough Rey gandara, [facility] 4 16:22:51 14564 Paxil medicatio n Not available Not available Not available 12/26/2023 57720 8 RxNorm nervo usnes s Rey gandara, [facility] 4 16:23:06 39660 gatifloxa quan medicatio n Not available Not available Not available 12/26/2023 20554 6 RxNorm GI Rey gandara, [employer] 4 16:23:38 77090 fluticaso ne / salmetero l medicatio n Not available Not available Not available 12/26/2023 69926 5 RxNorm nose pain Rey gandara, [facility] 4 16:26:38 93594 Reglan medicatio n Not available Not available Not available 12/26/2023 9230 RxNorm const ipati on Rey gandara, [facility] 17:29:23 22348 clarithro mycin medicatio n Not available Not available Not available 12/26/2023 09079 RxNorm nervo usnes s Rey gandara, [facility] 17:29:44 33885 Zithromax medicatio n Not available Not available Not available 12/26/2023 56388 4 RxNorm Rey gandara, [facility] 17:29:55 80298 Mucinex medicatio n Not available Not available Not available 12/26/2023 25273 7 RxNorm Rey gandara, [facility] 17:30:01 21456 gabapenti n medicatio n Not available Not available Not available 12/26/2023 14551 RxNorm swell ing of legs Rey gandara, [facility] 17:30:19 61196 baclofen medicatio n Not available Not available Not available 12/26/2023 1292 RxNorm unabl e to contr ol bladd er Rey gandara, [employer] 4 17:30:45 48096 allopurin ol medicatio n Not available Not available Not available 12/26/2023 519 RxNorm urina ry incon t Rey gandara, [facility] 4 17:31:45 02887 Colcrys medicatio n Not available Not available Not available 12/26/2023 06873 8 RxNorm Rey gandara, [facility] 17:31:53 95625 Uloric medicatio n Not available Not available Not available 12/26/2023 26265 6 RxNorm Rey gandara, [facility] 17:31:59 89535 probeneci d medicatio n Not available Not available Not available 12/26/2023 8698 RxNorm Rey gandara [facility] [employer] 17:32:07 27907 azithromy quan medicatio n other Not available low 06/25/20252020 67017 RxNorm Not Available [employer] - [employer] - prod 5 11:38:44 00935 colchicin e medicatio n diarrhea Not available low 06/25/20252020 2683 RxNorm Not Available [employer] - [employer] - prod 11:38:44 65088 fexofenad ine medicatio n other Not available low 06/25/20252020 55054 RxNorm Not Available [employer] - [employer] - prod 11:38:[address] medicatio n other Not available high 06/25/20252020 29278 RxNorm face red and numb Not Available [employer] - [employer] - prod 11:38:44 20395 ibuprofen medicatio n Not available Not available low 06/25/20252020 5640 RxNorm unrec ogniz ed react ion (text : GI Intol eranc e, code: [id number]) (from exter nal sourc e) Not Available [employer] - [employer] - prod 5 11:38:44 70447 naproxen medicatio n Not available Not available low 06/25/20252020 7258 RxNorm unrec ogniz ed react ion (text : GI Intol eranc e, code: 51688 [id number]) (from exter nal sourc e) Not Available [employer] - [employer] - prod 5 11:38:44 83772 paroxetin e Not available anxiety Not available low 06/25/20252020 97388 RxNorm Not Available [employer] - [employer] - prod 5 11:38:44 32285 prednison e medicatio n other Not available low 06/25/20252020 8640 RxNorm Not Available [employer] - [employer] - prod 5 11:38:44 71970 metoclopr amide Not available other Not available low 06/25/20252020 6915 RxNorm Const ipati on Not Available [employer] - [employer] - prod 5 11:38:44 48984 nabumeton e medicatio n Not available Not available low 06/25/20252020 59044 RxNorm unrec ogniz ed react ion (text : GI Intol eranc e, code: 95889 [id number]) (from exter nal [place] [facility]) Not Available [facility] - [employer] - prod 5 11:38:44 37956 febuxosta t medicatio n other Not available low 06/25/20252020 80945 RxNorm Weakn ess Not Available [employer] - [employer] - prod 5 11:38:44 62246 fluticaso ne / salmetero l medicatio n Not available Not available Not available 06/25/2025 65310 5 RxNorm Not Available [employer] - [employer] - prod 5 11:39:13 77704 acetamino phen / hydrocodo ne medicatio n Not available Not available Not available 06/25/2025 94784 2 RxNorm Not Available [employer] - [employer] - prod 5 11:39:13 60744 nitrofura ntoin, macrocrys tals / nitrofura ntoin, monohydra te medicatio n Not available Not available Not available 06/25/2025 98326 2 RxNorm Not Available [employer] - [employer] - prod 5 11:39:13 Medications Name Sig Start Date Stop Date Status Note LastModified by Organization Details LastModified Time vit b12 1000mcg tr tab 75ct aba panfilo TAKE ONE TABLET BY MOUTH EVERY DAY 12/19 completed Not Available Not Available Not Available multivitami n tablet Take 1 tablet every day by oral route for 90 days. 2024 active Not Available Not Available Not Avai lable cyclobenzap rine 10 mg tablet TAKE 1 TABLET BY MOUTH 3 TIMES DAILY NEEDED active Not Available Not Available No t Available fluconazole 100 mg tablet TAKE ONE TABLET BY MOUTH ONCE DAILY FOR 7 DAYS -- FINISH ALL MEDICINE -- 12/19 completed Not Available Not Available Not Available atorvastati n 20 mg tablet TAKE ONE TABLET BY MOUTH EVERY DAY active Not Available Not Available No t Available ipratropium 0.5 mg-albutero l 3 mg (2.5 mg base)/3 mL nebulizatio n soln use 1 ampule in nebulizer q 6 hours PRN 2024 active Not Available Not Available Not Avai lable bumetanide 2 mg tablet TAKE ONE TABLET BY MOUTH EVERY DAY active Not Available Not Available No t Available cetirizine 10 mg tablet Take 1 tablet every day by oral route for 90 days. 2024 active Not Available Not Available Not Avai lable azithromyci n 250 mg tablet TAKE 2 TABLETS BY MOUTH ON DAY 1, THEN TAKE 1 TABLET DAILY ON DAYS 2-5 active Not Available Not Available No t Available fluconazole 150 mg tablet TAKE 1 TABLET BY MOUTH today THEN TAKE 1 TABLET BY MOUTH in 3 DAYS active Not Available Not Available No t Available benzonatate 200 mg capsule TAKE ONE CAPSULE BY MOUTH THREE TIMES DAILY NEEDED -SWALLOW WHOLE. DO NOT CRUSH OR CHEW- 12/19 completed Not Available Not Available Not Available Nystop 100,000 unit/gram topical powder 11/16 completed Not Available Not Available Not Available sertraline 100 mg tablet TAKE 1 AND 1/2 TABLETS BY MOUTH EVERY DAY active Not Available Not Available No t Available allopurinol 100 mg tablet TAKE ONE TABLET BY MOUTH EVERY DAY active Not Available Not Available No t Available ciprofloxac in 500 mg tablet TAKE 1 TABLET BY MOUTH TWICE DAILY 04/23 completed Not Available Not Available Not Available triamcinolo ne acetonide 0.1 % topical cream APPLY TOPICALLY TO THE AFFECTED AREA(S) TWICE DAILY 11/16 completed Not Available Not Available Not Available spironolact one 25 mg tablet TAKE ONE TABLET BY MOUTH EVERY DAY active Not Available Not Available No t Available levothyroxi ne 25 mcg tablet TAKE 1 TABLET BY MOUTH EVERY DAY FOR 90 DAYS 2024 active Not Available Not Available Not Avai lable meloxicam 7.5 mg tablet Take 1 tablet every day by oral route as needed for 90 days. 2024 active Not Available Not Available Not Avai lable famotidine 20 mg tablet Take 1 tablet twice a day by oral route for 90 days. 2024 active Not Available Not Available Not Avai lable pantoprazol e 40 mg tablet,matty yed release TAKE 1 TABLET BY MOUTH EVERY DAY FOR 90 DAYS active Not Available Not Available No t Available nystatin 100,000 unit/gram topical cream APPLY TOPICALLY TO THE AFFECTED AREA(S) THREE TIMES DAILY 04/28 completed Not Available Not Available Not Available buspirone 7.5 mg tablet TAKE 1 TABLET BY MOUTH TWICE DAILY active Not Available Not Available No t Available bumetanide 1 mg tablet TAKE 1 TABLET BY MOUTH EVERY DAY active Not Available Not Available No t Available folic acid 1 mg tablet TAKE ONE TABLET BY MOUTH EVERY DAY 12/19 completed Not Available Not Available Not Available mupirocin 2 % topical ointment APPLY A SMALL AMOUNT TO THE AFFECTED AREA BY TOPICAL ROUTE 3 TIMES PER DAY 11/16 completed Not Available Not Available Not Available furosemide 20 mg tablet Take 1 tablet every day by oral route for 90 days. 07/30 completed Not Available Not Available Not Available mirtazapine 15 mg tablet TAKE 1 TABLET BY MOUTH EVERY DAY AT BEDTIME FOR 90 DAYS 2024 active Not Available Not Available Not Avai lable metoprolol succinate ER 25 mg tablet,exte nded release 24 hr TAKE 1 TABLET BY MOUTH EVERY DAY active Not Available Not Available No t Available epinephrine 0.3 mg/0.3 mL injection, auto-inject or as directed active Not Available Not Available No t Available fluticasone 100 mcg-salmete rol 50 mcg/dose blistr powdr for inhalation inhale 1 PUFF by MOUTH twice daily active Not Available Not Available No t Available polyethylen e glycol 3350 17 gram/dose oral powder DISSOLVE 17 GRAMS OF POWDER INTO 4 TO 8 OUNCES OF WATER, JUICE, SODA, COFFEE, OR TEA THEN DRINK EVERY DAY active Not Available Not Available No t Available levofloxaci n 750 mg tablet TAKE ONE TABLET BY MOUTH EVERY OTHER DAY FOR 5 DAYS -- FINISH ALL MEDICINE -- active Not Available Not Available No t Available albuterol sulfate HFA 90 mcg/actuati on aerosol inhaler INHALE 1 PUFF BY MOUTH EVERY 4 TO 6 HOURS NEEDED 12/19 completed Not Available Not Available Not Available Vitamin D2 1,250 mcg (50,000 unit) capsule Take 1 capsule by mouth once a month active Not Available Not Available No t Available cholecalcif richard (vitamin D3) 125 mcg (5,000 unit) capsule TAKE ONE CAPSULE BY MOUTH EVERY DAY 12/19 completed Not Available Not Available Not Available doxycycline hyclate 100 mg tablet TAKE ONE TABLET BY MOUTH TWICE DAILY FOR 7 DAYS -- FINISH ALL MEDICINE -- --TAKE WITH FOOD-- 04/23 completed Not Available Not Available Not Available valsartan 160 mg tablet TAKE ONE TABLET BY MOUTH EVERY DAY FOR 90 DAYS 01/22 completed Not Available Not Available Not Available neomycin-po lymyxin-hyd rocort 3.5 mg-10,000 unit/mL-1 % ear drops,susp instill 4 DROP into affected ear(s) THREE TIMES DAILY DIRECTED 03/31 completed Not Available Not Available Not Available FeroSul 325 mg (65 mg iron) tablet TAKE ONE TABLET BY MOUTH TWICE DAILY 2024 active Not Available Not Available Not Avai lable Eliquis 5 mg tablet TAKE 1 TABLET BY MOUTH TWICE DAILY active Not Available Not Available No t Available Anoro Ellipta 62.5 mcg-25 mcg/actuati on powder for inhalation INHALE 1 PUFF BY MOUTH EVERY DAY active Not Available Not Available No t Available Jardiance 10 mg tablet TAKE ONE TABLET BY MOUTH EVERY DAY active Not Available Not Available No t Available Gemtesa 75 mg tablet Take 1 tablet every day by oral route for 90 days. 2024 active Not Available Not Available Not Avai lable Vitals Date Recorded Body height Heart rate Oxygen saturation Oxygen saturation in Arterial blood by Pulse oximetry Pain severity - 0-10 verbal numeric rating [Score] - Reported Systolic And Diastolic Provider Name and Address Organization Details Last Updated DateTime 5 152.4 cm 81 /min 91 % 91 % 3 112/69 mm[Hg] Rey Wiseman MD - [employer] 5 13:10:51 Date Recorded Body height Heart rate Oxygen saturation Oxygen saturation in Arterial blood by Pulse oximetry Systolic And Diastolic Provider Name and Address Organization Details Last Updated DateTime 5 152.4 cm 62 /min 91 % 91 % 111/67 mm[Hg] Rey Wiseman [employer] 5 11:23:44 Date Recorded Body height Heart rate Oxygen saturation Oxygen saturation in Arterial blood by Pulse oximetry Systolic And Diastolic Provider Name and Address Organization Details Last Updated DateTime 5 152.4 cm 54 /min 92 % 92 % 103/64 mm[Hg] Rey Wiseman [employer] 5 11:18:45 Date Recorded Body height Provider Name an d Address Organization Details Last Updated DateTime 04/23/2025 152.4 cm Rey Wiseman [facility] 04/23/2025 14:38:27 Date Recorded Body mass index (BMI) Body weight Heart rate Oxygen saturation Oxygen saturation in Arterial blood by Pulse oximetry Systolic And Diastolic Provider Name and Address Organization Details Last Updated DateTime 5 32.4 kg/m2 30908.3 3 g 71 /min 86 % 86 % 115/56 mm[Hg] Katie Cruz [employer] 5 14:46:43 Date Recorded Body height Heart rate Oxygen saturation Oxygen saturation in Arterial blood by Pulse oximetry Systolic And Diastolic Provider Name and Address Organization Details Last Updated DateTime 4 152.4 cm 61 /min 97 % 97 % 108/76 mm[Hg] Rey Wiseman [employer] 4 11:46:01 Social History Question Answer Notes LastModified by Organizat ion Details LastModified Time Tobacco Smoking Status Never Smoker Rey gandara [employer] 12/20/2023 14:57:36 Are You Blind Or Do You Have Difficulty Seeing? No [email or web address] Information n ot available 03/31/2024 What Is Your Level Of Caffeine Consumption? None Information not available 12/20/2023 Are You A Caregiver? No [email or web address] Information not available 03/31/2024 In The 14 Days Before Symptom Onset, Have You Had Close Contact With A Laboratory-confirm ed COVID-19 While That Case Was Ill? No Information n ot available 12/20/2023 In The 14 Days Before Symptom Onset, Have You Had Close Contact With A Person Who Is Under Investigation For COVID-19 While That Person Was Ill? No Information not available 12/20/2023 Have You Been To An Area Known To Be High Risk For COVID-19? No Information not available 12/20/2023 Are You Deaf Or Do You Have Serious Difficulty Hearing? No [email or web address] Information not available 03/31/2024 What Type Of Diet Are You Following? REGULAR [email or web address] Information n ot available 03/31/2024 Have There Been Any Changes To Your Family Or Social Situation? No [email or web address] Information no t available 03/31/2024 What Was The Date Of Your Most Recent Tobacco Screening? 04/23/2025 Information not available 04/23/2025 What Is Your Relationship Status? Information not available 12/20/2023 Do You Use Your Seat Belt Or Car Seat Routinely? Yes Information not available 12/20/2023 Are You Sexually Active? No [email or web address] Information not available 03/31/2024 Do You Participate In Social Media? No [email or web address] Information not available 03/31/2024 Has Tobacco Cessation Counseling Been Provided? No [email or web address] Information not available 03/31/2024 Have You Recently Traveled Abroad? No Information not available 12/20/2023 Do You Have Difficulty Walking Or Climbing Stairs? Yes Information not available 03/31/2024 Are You Currently In School? No [email or web address] Information not available 03/31/2024 Do You Have Any Dietary Restrictions? No [email or web address] Information not available 03/31/2024 Sex: Female Functional Status Question Answer Note LastModified by Organizat ion Details LastModified Time Do you use any illicit or recreational drugs? No Information not available 12/20/2023 Do you or have you ever used any other forms of tobacco or nicotine? No [email or web address] Information not available 03/31/2024 What is your level of alcohol consumption? None [email or web address] Information not available 03/31/2024 Are you currently employed? No [email or web address] Information not available 03/31/2024 Do you have transportation difficulties? No Information not available 03/31/2024 Are you able to walk independently without assistance or assistive devices? NOINDWHEEL [email or web address] Information not available 03/31/2024 Do you have difficulty doing errands alone? Yes [email or web address] Information not available 03/31/2024 Are you able to care for yourself independently? Yes [email or web address] Information not available 03/31/2024 Do you have difficulty dressing, bathing, grooming, or toileting? Yes Information not available 03/31/2024 Mental Status Question Answer Note LastModified by Organization D etails LastModified Time Do you have difficulty concentrating, remembering or making decisions? No Information no t available 03/31/2024 Family History Nothing Reported. Medical History Condition Response Hospitalizations N Other Y Emergency room visit since last appointm ent. N Thyroid Problems Y Gynecological History Statement/Question Response Date of Last Pap Smear Most Recent Mammogram Obstetrics History GPAL:G 0 P 0 0 0 0 Immunizations Vaccine Type Date Status Note Provider Name and Address Organization Details Recorded Time zoster recombinant 025 cancelled patient objection Maria Luz Johnson APRN [address] [place] [address], [phone], [facility] [employer] 10/29/2024 13:45:04 pneumococcal polysaccharide PPV23 025 cancelled patient objection Maria Luz Johnson APRN [address] [place] [address], [phone], [facility] [employer] 10/29/2024 13:45:04 COVID-19 vaccine, vector-nr, rS-Ad26, PF, 0.5 mL 021 completed Not Available [facility] 04/23/2025 14:35:02 Past Encounters Encounter ID Performer Location Encounter Start Date Encounter Closed Date Diagnosis/Indication Diagnosis SNOMED-CT Code Diagnosis ICD10 Code Diagnosis IMO Codes Diagnosis Note [id number] Maria Luz Johnson [address] [address] 12/20/2023 14:09:21 12/20/2023 17:08:21 Atopic dermatitis 07681691 L20.9 Dysuria 94117462 R30.0 Fatigue 48231822 R53.83 Hyperlipidemia 96383286 E78.5 Hyperglycemia 00163721 R 73.9 Vitamin D deficiency 347 81335 E55.9 Vitamin B deficiency 479 16763 E53.9 Otitis ext bianca of left ear 2526805949 966952 H60.92 Peripheral vascular disease 726384666 I73.9 Generalize d anxiety disorder 05217114 F41.1 Allergic rhinitis 007429 04 J30.9 Gastroesop hageal reflux disease without esophagitis 973478899 K21.9 Edema of l ower extremity 808358262 R60.0 Overactive urinary bladder 140265270 N32.81 Chronic ob structive pulmonary disease 90713287 J44.9 Hypothyroidism 40715536 E03.9 Pain of mu ltiple joints 11713783 M25.50 Moderate r ecurrent major depression 03125538 F33.1 Essential hypertension 90163220 I10 Acute urin kory tract infection 636688020 N39.0 Body mass index 30+ - obesity 685713898 Z68.36 [id number] [place] [id number] 03/31/2024 11:24:03 03/31/2024 13:44:56 Lower respiratory tract infection 23063690 J22 Generalize d anxiety disorder 31579200 F41.1 Allergic rhinitis 920243 04 J30.9 Gastroesop hageal reflux disease without esophagitis 500866830 K21.9 Edema of l ower extremity 578915336 R60.0 Overactive urinary bladder 162704509 N32.81 Chronic ob structive pulmonary disease 00384305 J44.9 Hypothyroidism 95049432 E03.9 Pain of mu ltiple joints 49343465 M25.50 pt states she can take meloxicam Moderate r ecurrent major depression 09994574 F33.1 Essential hypertension 70127014 I10 Infection of skin 474354 000 L08.9 Peripheral vascular disease 528301371 I73.9 Body mass index 30+ - obesity 008597851 Z68.36 [id number] [place] [id number] 04/28/2024 08:58:15 04/28/2024 10:12:52 Cough 23159832 R05.9 Generalize d anxiety disorder 81823390 F41.1 Allergic rhinitis 485271 04 J30.9 Gastroesop hageal reflux disease without esophagitis 944112263 K21.9 Edema of l ower extremity 447449590 R60.0 Overactive urinary bladder 451393500 N32.81 Hypothyroidism 22178985 E03.9 Pain of mu ltiple joints 88562352 M25.50 pt states she can take meloxicam Moderate r ecurrent major depression 17299299 F33.1 Essential hypertension 52016651 I10 Body mass index 30+ - obesity 136319497 Z68.36 [id number] [place] [address] 07/03/2024 11:03:45 07/03/2024 12:07:48 Dyspnea 957425165 R06.00 Oxygen sat uration below reference range 721563249 R79.81 Body mass index 30+ - obesity 927400768 Z68.36 [id number] [place] [id number] 07/30/2024 10:54:28 07/30/2024 12:44:07 Fatigue 77131055 R53.83 Hyperlipidemia 72870758 E78.5 Iron defic iency anemia 27841748 D50.9 Congestive heart failure 62482992 I50.9 Hypoglycemia 421777631 E 16.2 Generalize d anxiety disorder 25000562 F41.1 Allergic rhinitis 160731 04 J30.9 Gastroesop hageal reflux disease without esophagitis 413712306 K21.9 Overactive urinary bladder 827092597 N32.81 Pain of mu ltiple joints 71102944 M25.50 pt states she can take meloxicam Moderate r ecurrent major depression 31817967 F33.1 Hypothyroidism 11729872 E03.9 Essential hypertension 61727951 I10 Ulcer of l ower extremity 12306782 L97.909 telfa, Kerlix, and EVELIO bandage applied. Body mass index 30+ - obesity 109562433 Z68.36 Dyspnea 874532923 R06.00 Patient's O2 ran out while in office, 2 L given to her out of our oxygen tank. [employer] came to office and changed portable tank for her. [id number] [place] [id number] 10/29/2024 12:53:07 10/29/2024 16:09:16 Adult health examination 588327731 Z00.00 Osteoporos is screening declined 2367240764 34307 Z53.20 Vaccine de clined by patient 4728805154 02 Z28.20 Pain in right foot 30723 06588 48695 M79.671 Congestive heart failure 44669882 I50.9 Generalize d anxiety disorder 00329786 F41.1 Allergic rhinitis 414472 04 J30.9 Low back pain 957865574 M54.50 Gastroesop hageal reflux disease without esophagitis 435845648 K21.9 Overactive urinary bladder 661635235 N32.81 Chronic ob structive pulmonary disease 97615202 J44.9 Hypothyroidism 25670796 E03.9 Pain of mu ltiple joints 38079316 M25.50 pt states she can take meloxicam Moderate r ecurrent major depression 89211165 F33.1 Essential hypertension 99286344 I10 Body mass index 30+ - obesity 416526764 Z68.36 [id number] Maria Luz Johnson [place] [id number] 01/22/2025 10:53:41 01/22/2025 11:44:34 Fatigue 88610451 R53.83 5782346 Mixed hyperlipidemia 267 348759 E78.2 51016 Hyperglycemia 04666883 R 73.9 45453 Vitamin D deficiency 347 08266 E55.9 42357 Cobalamin deficiency 190 464814 E53.8 88562 Loss of taste 61112280 R 43.2 407383 Congestive heart failure 67924300 I50.9 Generalize d anxiety disorder 26506824 F41.1 Allergic rhinitis 265405 04 J30.9 Gastroesop hageal reflux disease without esophagitis 249254288 K21.9 Overactive urinary bladder 660970395 N32.81 Chronic ob structive pulmonary disease 42252433 J44.9 Hypothyroidism 11787852 E03.9 Pain of mu ltiple joints 74991427 M25.50 pt states she can take meloxicam Moderate r ecurrent major depression 33747833 F33.1 Body mass index 30+ - obesity 792841664 Z68.36 715213 Hyperkalemia 23932326 E8 7.5 9805 Pneumonia 273073374 J18. 9 [id number] [place] [id number] 0 03/09/2025 10:53:36 03/09/2025 12:05:12 Congestive heart failure 78075925 I50.9 Generalize d anxiety disorder 90539537 F41.1 Allergic rhinitis 421583 04 J30.9 Low back pain 678225696 M54.50 Thrombocyt openic disorder 038773286 D69.6 95267 Body mass index 30+ - obesity 512373356 Z68.36 246960 [id number] [place] [address] 04/23/2025 14:32:25 04/23/2025 15:43:16 Lower respiratory tract infection 61260139 J22 Candidiasis of vagina 72 525495 B37.31 289480 Allergic rhinitis 248975 04 J30.9 Pain of ri ght knee joint 4564742670 21335 M25.561 832861 Ulcer of l ower extremity 37839742 L97.912 L97.922 70276959 Body mass index 30+ - obesity 784898385 Z68.32 908788 Health Concerns Section Related Observation LastModified by Organization Detai ls LastModified Time None Recorded Concern Status LastModified by Organization Details LastModified Time None Recorded Advance Directives Directive None Recorded Payers Insurance Date Sequence Insurance Name Policy Number Policy Mayorga Covered Member ID Mayorga Member ID Guarantor Name 12/20/2023 1 *SELF PAY* Otis Bliss 06/26/2025 [place] [facility] Lian Bliss [id number] Lian Bliss 06/26/2025 1 [employer] (MEDICARE REPLACEMENT/A DVANTAGE - HMO) Lian Izaiah [id number] Lian Bliss Notes Date Note Type Note Provider Name and Address Organization Details Recorded Time 07/30/2024 text/html pt here today for hospital f/u and medication refills. pt states shes doing well on current medication regime. pt was recently in hospital on 07/03 when she was last seen here. she was in resp distress. went to hospital and was found to have chf. she is supposed to f/u with cardio but forgot when appt is. ordered f/u labs today. pt states that she has a reaction to whatever they were giving her in the hospital for her ulcers on her RLE. the home health nurse has been putting some thing on her leg and she had a reaction to that as well. pt refused the JORDIN boot stating that they break her out. pt states that the home health nurse was very rude and just jerked her bandage off of her leg and it was very painful. pt states that she changed her dsg yesterday and just applied Vaseline and gauze. on exam today, gauze is stuck to the ulcers and had to apple NS to get the gauze off. some of the ulcers started bleeding (lateral side). pt has 7-8 venous status ulcers. rey cleaned ulcers and applied tefla dsg, gauze and evelio wrap. pt O2 also ran out while she was here. states it was a new tank 1.5 hours ago. rey called [facility] and they brought pt a full one here and supposed to deliver her empty one at home. Rey gandara, [employer] [employer] 07/30/2024 13:43:27 10/29/2024 text/html pt here today for AWV and medication refills. pt states shes doing well on medication refills but BLE wounds are getting worse and painful. pt was sent to wound care at [facility] on 10/09/24 however pt states that she was told that her insurance wouldnt cover both wound care and home health. i have never heard that but according to their note i believe they didnt want to bother with pt. i have tried to treat pt BLE wound mult times, i have referred to vascular, wound care, flakita with home health has been treating and they are just not getting better. pt states that they are very painful and she just cannot get any relief. states that she has to sleep with her legs bent upward because she cannot stand for them to touch laying down. on exam, pt has 6 open wounds to RLE ranging from 1 in to 6 in. all with beefy red base. 2 small open wound to LLE with beefy red base. pt also c/o right heel pain. states that in 2020 when she had her right hip sx she got an ulcer that she had to have cleaned out and it never closed.she ultimately got maggots in it and had to have that cleaned out. pt states that it drains daily. on exam, pt dsg is dry but there is a hole in her heel, no drainage with pressure is applied. i will order an xray. i will refer to wound care at another facility to see if they can help pt. Maria Luz Johnson APRN [address] [facility], [place], [phone], [facility] [employer] 10/29/2024 14:00:26 01/22/2025 text/html pt here today for an ER f/u. pt was in ER for hyperkalemia and PNA. pt states that she is feeling better. pt states that one of her meds is making her sleepy during the day. went through pt med list and told pt what meds she should take at night and in am. pt voiced understanding. pt also states that she has a dry mouth and her pepsi doesnt taste the same. states that it is only her pepsi. advised pt to get some sour/lemon candy to see if that helps. if not let me know and we can order a ct head. pt also states that home health has not been there in a week and she is out of supplies to change her leg dsg. i told pt that she needs to call home health and that we can try to get in touch with them today. pt states that someone is supposed to come tomorrow from [place] and change her leg dsg. Maria Luz Johnson APRN [address] [facility], [place], [address], [facility] 01/22/2025 12:46:25 03/09/2025 text/html pt here today for medication refills. pt states shes doing well on current medication regime and has no new complaints today. pt states that she hasnt seen her home health nurse in days and she is out of supplies to dress her leg wounds. rey talked with flakita the home health nurse and states that pt is probably going to get d/c because she refuses everything. pt states that she does not refuse things. states that she simply stated that they were using too much Vaseline on her legs . states that a doctor told her not to put too much one. pt has refused UNNA boots, zinc, and other creams stating that she is allergic. i told the home health nurse to get medihoney and she stated that pt refused. however pt denies and states that she has that at home. on exam, pt has 4 open, non healing wound to RLE that have a red and yellow base. 2 open wounds on LLE that appear to be healing. the wounds do not look infected just not healing. advised pt to wash daily and apply medihoney and wrap. pt states that she needs home health to bring supplies. asked rey to see what is going on with home health. Maria Luz Johnson APRN [address] [place] [address], [place], [address], [facility] [employer] 03/09/2025 15:39:57 04/23/2025 text/html pt here today with c/o sinus symptoms for over a week. states that she is still having vaginal itching and states that she didnt get her medication for that the last time. states that her left neck has been hurting. also states that around a week ago a piece of wood from a dog house feel on her right knee and it is bruised and swollen. states that it hurts when she bears weight. pt states that she does not walk only stands to go to toilet and bed. also states that home health hasnt been to her house in 2 months and she has been dressing her legs herself with paper towels and evelio wraps. i will refill allergy med for pt today. it was not filled. on exam, pt LLL is decreased. i will order abx. pt states that her left neck is stiff. pt does lean to that side and is likely a pulled muscle due to assessment WNL. on exam of right knee it is slightly swollen and bruised and states that it hurts with any movement and palpitation. i will order xray. i did unwrap right leg and pt had evelio wrap and paper towel that had yellow drainage. it was stuck to mult leg wounds. the leg wound appear the same as they typically have, no worse, no better. i explained to pt that the home health had d/c her. pt did not know what that meant so i explained to her. pt states so they dont want to take care of me anymore? so they said i was mean? i told pt that i didnt know and i wasnt there. that she can request her medical records. i told pt that she is going to need to go to wound care. pt states that the wound care at [facility] told her that she needed home health. i will refer to another wound care facility. Maria Luz Johnson APRN [address] [place] [address], [place], [address], [facility] [employer] [employer] 04/23/2025 16:53:01 OBGyn Episode No OBEpisode recorded.
--- OUTSIDE RECORDS SUMMARY | 2025-06-30 12:48 | XMS_ITS | Clinical Summary ---
Author Organization Healthcare Address [address] [place] [address] Care Team Providers Care Treasurer Name Role Phone Ted Matute MD Primary Care Provider [phone] Family History Medical History Relation Name Comments [...] r (1 - 1-dose 75+ series) 02/05/2020 [id number] Vaccine (1 - 20 25- season) 2025 UKY-Influenza Vaccine (#1) 2025 HPV [...] this topic Insurance [place] Care Teams Treasurer Relationship Specialty Start Date End Date Ted Matute MD [facility] [place] [address] [facility] - General 12/23/20
--- OUTSIDE RECORDS SUMMARY | 2025-06-30 12:48 | XMS_ITS | Patient Health Record ---
Author [facility] Address [address] [facility] [address] [place] [id number] Care Team Providers Care Belting Inspector Name Role Phone Josee Matute Primary Care Provider Allergies Allergen (clinical drug ingredient) Drug/Non Drug [...] to contro l bladder Drug Allergy Active Bvupdgfdyi-AIP-Pcfm eine Unknown Drug Allergy Active cephalexin Cephalexin Unknown Drug Allergy Activ e clarithromycin Clarithromycin nervousness Drug Allergy Active Claritin Unknown Drug Allergy Active colchicine Colcrys diarrhea Drug Allergy Active doxycycline Doxycycline Unknown Drug Allergy Act britney erythromycin Erythromycin rash Drug Allergy A ctive gabapentin Gabapentin swelling of legs Drug Allergy Active Gatifloxacin GI Drug Allergy Acti ve acetaminophen / hydrocodone HYDROcodone-Acetami nophen Unknown Drug [...] daily; Duration: 7 days 06/28/2023 Not-Taking Nyamyc 243398 UNIT/GM 1 heri applied topically 3 times [...] tab(s) orally once a day Not-Taking Nystatin 915178 UNIT/GM 1 heri applied topically 2 times [...] Status W/U Status Risk Notes Problem Anemia (655276470) Anemia (D64.9) Active confirmed Problem Peripheral venous insufficiency (39339367) Venous insufficiency (I87.2) Active confirmed Problem Skin ulcer (16457396) Skin ulcer (L98.499) Active confirmed Problem Skin ulcer of calf (249139815) 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) Active confirmed Problem Non-pressure chronic ulcer of unspecified part of right lower leg limited to breakdown of skin (L97.911) Active confirmed Problem Chronic ulcer of skin of lower leg (disorder) (8077516084196771 4) Non-pressure chronic ulcer of unspecified part of left lower leg limited to breakdown of skin (L97.921) Active confirmed Problem Peripheral vascular disease (700904532) Peripheral vascular disease (I73.9) Active confirmed Problem Sciatica (05717374) Sciatica of right side (M54.31) Active confirmed Problem Acquired hypothyroidism (849002616) Acquired hypothyroidism (E03.9) Active confirmed Problem Renal insufficiency (373630937) Renal insufficiency (N28.9) Active confirmed Problem Migraine (20222821) Migraine without status migrainosus, not intractable, unspecified migraine type (G43.909) Active confirmed Problem Herpes zoster without complication (907563448) Herpes zoster without complication (B02.9) Active confirmed Problem Osteoarthritis of knee (422101913) Primary osteoarthritis of both knees (M17.0) Active confirmed Problem Methicillin resistant Staphylococcus aureus infection (758747566) MRSA infection (A49.02) Active confirmed Problem Hypothyroidism (70337630) Hypothyroidism, unspecified type (E03.9) Active confirmed Problem Pulmonary atelectasis (01982339) Pulmonary atelectasis (J98.11) Active confirmed Problem Leg ulcer (03642744) Leg ulcer (L97.909) Active confirmed Problem Migraine variant with headache (disorder) (627929658) Migraine headache (G43.909) Active confirmed Problem Localized, primary osteoarthritis of the pelvic region and thigh (728627764) Primary osteoarthritis of right hip (M16.11) Active confirmed Problem Narcolepsy (67875319) 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) Active confirmed Problem Chronic sinusitis (44618538) Sinusitis, unspecified chronicity, unspecified location (J32.9) Active confirmed Problem Osteoarthritis (029204427) Osteoarthritis, unspecified osteoarthritis type, unspecified site (M19.90) Active confirmed Problem Allergic rhinitis (86716588) Perennial allergic rhinitis, unspecified allergic rhinitis trigger (J30.89) Active confirmed Problem Gingivitis (96783209) Gingivitis (K05.10) Active confirmed Problem Seasonal allergic rhinitis (137021842) Chronic seasonal allergic rhinitis, unspecified trigger (J30.2) Active confirmed Problem Heart failure (91255804) Congestive heart failure, unspecified HF chronicity, unspecified heart failure type (I50.9) Active confirmed Problem Narcolepsy without cataplexy (78283178328350) 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) Active confirmed Problem Drug allergy (557230187) Multiple drug allergies (Z88.9) Active confirmed Problem Arthritis of knee (349321175) Arthritis of knee (M17.10) Active confirmed Problem Pressure injury of right heel, stage 2 (L89.612) Active confirmed Plan Of Treatment No Information Insurance Providers Payer Name Payer Address Payer Phone Subscriber Number Group Number Insured Name Patient Relationship to Insured Coverage Start Date Coverage End Date MEDICARE PART B [address] [address] [place] [id number] RUPESH CURRY Self - patient is the insured MEDICAID [place] [address] [place] [address] [id number] RUPESH CURRY Self - patient is the [...] turbinate 01/08/12 Hospitalization History Reason Date(Month/Year) migraine [facility] ER-nose bleeds 01/09/12 [facility] ER-nose bleed-transferred to , hea rt rate lowered 01/28/12 [facility] ER-Evaluation for DVT's 07/24/12 [facility] ER-mouth swollen [facility]-Pneumonia 02/26 to 03/01/2020
--- OUTSIDE RECORDS SUMMARY | 2025-06-30 12:48 | XMS_ITS | Referral Summary ---
Author Organization [employer] ([place], [place], [place], [place], [place]) Address [address] [place] [address] Care Team Providers Care Beehive Kiln Supervisor Name Role Phone Ted Matute MD Primary Care Provider [phone] Ted Matute MD Unavailable [phone] Social History Tobacco Use Types Packs/Day Years Used Date Smoking Tobacco: Never Assessed Comments Unknown Sex and Gender Information Value Date Recorded Sex Assigned at Not on file Legal Sex Female 3:57 PM CDT Gender Identity Not on file Sexual Orientation Not on file Plan of Treatment Not on file Insurance [place]ICAID OF [place] [facility] Care Teams Beehive Kiln Supervisor Relationship Specialty Start Date End Date Ted Matute MD [address] [place] [address] [place] [address] PCP - General Family Medicine 05/20/23 Ted Matute MD [address] [place] [address] Referring Physician Family Medicine 05/20/23
--- OUTSIDE RECORDS SUMMARY | 2025-06-30 12:49 | XMS_ITS | Clinical Summary ---
Author Organization [facility] Address [address] [place] [address] Care Team Providers Care Cartoon Designer Name Role Phone Lance Santillan MD Primary Care Provider [phone] Allergies Active Allergy Reactions Criticality Noted Date [...] season) 04/12/202502/2021 Medical Devices Implanted Type Area Milk Sampler Device Identifier Shelf Expiration Date Model / Serial / Lot Implant Implant Description:Right hip and ri ght knee Sut Contrl Tiss Stratafix Spiral Pdo Bidir 1 [id number] - [id number] Implanted:Qty : 1 on 12/29/2020 by Seymour Schmid MD at [facility] Implant Right: Hip [employer] OF J AND J [id number] / / [id number] Bone Simplex/P Full Dose 10/Pk - [id number] Implanted:Qty : 3 on 12/29/2020 by Seymour Schmid MD at [facility] Implant Right: Hip AMARJIT ISI [id number] / / Description:Each batch mixed with 3 G vancomycin and 3.6 G tobramycin Stem Fem/Hip Versys Advocate Nonvlign Std/Offst Sz11 120mm - [id number] Implanted:Qty : 1 on 12/29/2020 by Seymour Schmid MD at [facility] Implant Right: Hip [employer] [id number] 05/11/2026 [id number] / / [id number] Hd Fem/Hip [employer] Cocr 07/25tpr 36mm Pls6 Strl - [id number] Implanted:Qty : 1 on 12/29/2020 by Seymour Schmid MD at [facility] Implant Right: Hip [employer] [id number] 01/09/2030 [id number] / / [id number] Liner Hip Nooksack Cnstr Allpoly Std Face 54mm - [id number] Implanted:Qty : 1 on 12/29/2020 by Seymour Schmid MD at [facility] Implant Right: Hip [employer] [id number] / / [id number] Additional Health Concerns Infection Onset Date Last [...] Of Support Discussed With: Patient Care Teams Cartoon Designer Relationship Specialty Start Date End Date Lance Santillan MD [address] [facility] [address] [facility] [place] [id number] PCP - General Adolescent Medicine 12/27/20
[2025-06-30 13:00] VITALS: BP 138/69; PULSE 59; RESP 17
== END 2025-06-30 23:59 | disposition home or self-care (01) ==
LOC: INF 11:30
PROVIDERS: PCP Nurse Practitioner; Visit Provider Internal Medicine Medical Oncology
DX: D64.9 Anemia, unspecified (principal)
CPT/HCPCS: 96365; J2916

== ENCOUNTER 2025-07-07 11:42 | Outpatient (CLI) | payer MEDICARE, SELFPAY ==
--- OUTSIDE RECORDS SUMMARY | 2025-06-23 19:00 | XMS_ITS | Clinical Summary ---
Author Organization Unknown Care Team Providers Care E Commerce Architect Name Role Phone STEPHON DRAFTER GEOPHYSICAL, ALBERTO Unavailable Unavailable SILVA RN, GALLO Unavailable Unavailable KODY PT, KILEY Unavailable Unavailable ARABELLA DURHAMN, JOSE ENRIQUE Unavailable Unavailable SALAZAR SHELTER SUPERVISOR, RAMYA Unavailable Unavailabl e ROSSI OT, ROXANE Unavailable Unavailable ROMEL ANGELIQUE/PAUL, MARIEA Unavailable Unavail able Payers Payer Name Policy Type Policy Number Effective Date Expira tion Date [facility] [id number] Problems Condition Name Condition Details Condition Category Status Onset Date Resolution Date Last Treatment Date Treating Clinician Comments ACUTE AND CHRONIC RESPIRATORY FAILURE WITH HYPOXIA Active 2024-08 00:00: 00 ACUTE AND CHRONIC RESPIRATORY FAILURE WITH HYPERCAPNIA Active 2024-08 00:00: 00 CHRONIC OBSTRUCTIVE PULMONARY DISEASE W (ACUTE) EXACERBATION Active 2024-08 00:00: 00 VENOUS INSUFFICIENC Y (CHRONIC) (PERIPHERAL) Active 2024-08 00:00: 00 NON-PRS CHRONIC ULCER OTH PRT R LOW LEG W FAT LAYER EXPOSED Active 2024-08 00:00: 00 NON-PRS CHRONIC ULCER OTH PRT L LOW LEG W FAT LAYER EXPOSED Active 2024-08 00:00: 00 LYMPHEDEMA, NOT ELSEWHERE CLASSIFIED Active 08-12 00:00: 00 HYPERTENSIVE HEART DISEASE WITH HEART FAILURE Active 08-12 00:00: 00 ACUTE ON CHRONIC SYSTOLIC (CONGESTIVE) HEART FAILURE Active 2024-08 00:00: 00 CHRONIC DIASTOLIC (CONGESTIVE) HEART FAILURE Active 08-12 00:00: 00 UNSPECIFIED ATRIAL FIBRILLATION Active 08-12 00:00: 00 ATHSCL HEART DISEASE OF [place] [facility] ART W UNSP ANG PCTRS Active 08-12 00:00: 00 HYPERLIPIDEM IA, UNSPECIFIED Active 08-12 00:00: 00 GASTRO-ESOPH AGEAL REFLUX DISEASE WITHOUT ESOPHAGITIS Active 08-12 00:00: 00 HYPOTHYROIDI SM, UNSPECIFIED Active 08-12 00:00: 00 DEPRESSION, UNSPECIFIED Active 08-12 00:00: 00 ANXIETY DISORDER, UNSPECIFIED Active 08-12 00:00: 00 UNSPECIFIED OSTEOARTHRIT IS, UNSPECIFIED SITE Active 08-12 00:00: 00 MIGRAINE, UNSP, NOT INTRACTABLE, WITHOUT STATUS MIGRAINOSUS Active 08-12 00:00: 00 DEPENDENCE ON SUPPLEMENTAL OXYGEN Active 2024-08 0 00:00: 00 COMPLIANCE EXAMINER (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 OF ANTICOAGULAN TS Active 08-12 00:00: 00 Allergies, Adverse Reactions, Alerts Allergy [...] Comments Components vancomycin 1,000 mg intravenous injection 3-21 00:00: 00 11-07 23:59 :00 No [id number] INFECTION Per instruc tions DAILY Per instructio ns DAILY (route: intravenou s) Med Classific ation: Anti-Infe ctive Agents sertraline 100 mg tablet 11-14 00:00: 00 07-05 23:59 :00 No [id number] DEPRESSION 1 tablet DAILY 1 tablet DAILY (route: oral) Med Classific ation: Central Nervous System Agents levothyroxi ne 25 mcg tablet 11-14 00:00: 00 07-05 23:59 :00 No [id number] SUPPLEMENTA L 1 tablet DAILY 1 tablet DAILY (route: oral) Med Classific ation: Endocrine nadolol 40 mg tablet 11-14 00:00: 00 07-05 23:59 :00 No [id number] BP 1 tablet DAILY 1 tablet DAILY (route: oral) Med Classific ation: Cardiovas cular Therapy Agents diltiazem CD 180 mg capsule,ext ended release 24 hr 11-14 00:00: 00 07-05 23:59 :00 No [id number] BP 1 capsule DAILY 1 capsule DAILY (route: oral) Med Classific ation: Cardiovas cular Therapy Agents pantoprazol e 40 mg tablet,matty yed release 11-14 00:00: 00 07-05 23:59 :00 No [id number] STOMACH 1 tablet DAILY 1 tablet DAILY (route: oral) Med Classific ation: Gastroint estinal Therapy Agents famotidine 20 mg tablet 11-14 00:00: 00 07-05 23:59 :00 No [id number] STOMACH Per instruc tions DAILY Per instructio ns DAILY (route: oral) Med Classific ation: Gastroint estinal Therapy Agents sertraline 50 mg tablet 11-14 00:00: 00 07-05 23:59 :00 No [id number] ANXIETY 1 tablet DAILY 1 tablet DAILY (route: oral) Med Classific ation: Central Nervous System Agents gabapentin 100 mg capsule 11-14 00:00: 00 01-09 23:59 :00 No [id number] NERVE PAIN 1 capsule 2 TIMES DAILY 1 capsule 2 TIMES DAILY (route: oral) Med Classific ation: Central Nervous System Agents buspirone 7.5 mg tablet 11-14 00:00: 00 07-05 23:59 :00 No [id number] ANXIETY 1 tablet DAILY 1 tablet DAILY (route: oral) Med Classific ation: Central Nervous System Agents mirtazapine 15 mg tablet 11-14 00:00: 00 07-05 23:59 :00 No [id number] SLEEP 1 tablet 2 TIMES A WEEK 1 tablet 2 TIMES A WEEK (route: oral) Med Classific ation: Central Nervous System Agents cefdinir 300 mg capsule 01-02 00:00: 00 01-03 23:59 :00 No [id number] for cellulits/ infection to leg 1 capsule 2 TIMES DAILY 1 capsule 2 TIMES DAILY (route: oral) Med Classific ation: Anti-Infe ctive Agents Breo Ellipta 100 mcg-25 mcg/dose powder for inhalation 2021-08 00:00: 00 07-05 23:59 :00 No [id number] LUNGS 1 inhalat ion DAILY 1 inhalation DAILY (route: inhalation ) Med Classific ation: Respirato ry Therapy Agents nystatin 100,000 unit/gram topical powder 2023-08 00:00: 00 Yes [id number] UNDER BREAST AND ABDOMEN 1 unit 4 TIMES DAILY 1 unit 4 TIMES DAILY (route: topical) Med Classific ation: Dermatolo gical oxygen gas for inhalation 2023-08 00:00: 00 Yes [id number] SOA 2 Liter O2 - CONTINUOUS 2 Liter O2 - CONTINUOUS (route: inhalation ) Med Classific ation: Medical Supplies and Durable Medical Equipment (DME) bumetanide 1 mg tablet 2023-08 2- 00:00: 00 Yes [id number] WATER PILL 1 tablet DAILY 1 tablet DAILY (route: oral) Med Classific ation: Cardiovas cular Therapy Agents buspirone 7.5 mg tablet 2020-08 00:00: 00 Yes [id number] MOOD 1 tablet 2 TIMES DAILY 1 tablet 2 TIMES DAILY (route: oral) Med Classific ation: Central Nervous System Agents Gemtesa 75 mg tablet 2020-08 00:00: 00 Yes [id number] URINARY 1 tablet DAILY 1 tablet DAILY (route: oral) Med Classific ation: Genitouri nary Therapy levothyroxi ne 25 mcg tablet 2020-08 00:00: 00 Yes [id number] THYROID 1 tablet DAILY 1 tablet DAILY (route: oral) Med Classific ation: Endocrine meloxicam 7.5 mg tablet 2020-08 00:00: 00 02-02 23:59 :00 No [id number] PAIN 1 tablet DAILY 1 tablet DAILY (route: oral) Med Classific ation: Analgesic , Anti-infl ammatory or Antipyret ic mirtazapine 15 mg tablet 2021-08 00:00: 00 Yes [id number] RLS 1 tablet BEDTIME 1 tablet BEDTIME (route: oral) Med Classific ation: Central Nervous System Agents pantoprazol e 40 mg tablet,matty yed release 2020-08 00:00: 00 Yes [id number] GERD 1 tablet BEDTIME 1 tablet BEDTIME (route: oral) Med Classific ation: Gastroint estinal Therapy Agents Pepcid 20 mg tablet 2021-08 00:00: 00 Yes [id number] GERD 1 tablet 2 TIMES DAILY 1 tablet 2 TIMES DAILY (route: oral) Med Classific ation: Gastroint estinal Therapy Agents sertraline 150 mg capsule 2020-08 00:00: 00 Yes [id number] MOOD 1 capsule DAILY 1 capsule DAILY (route: oral) Med Classific ation: Central Nervous System Agents valsartan 160 mg tablet 2021-08 00:00: 00 02-02 23:59 :00 No [id number] HEART 1 tablet DAILY 1 tablet DAILY (route: oral) Med Classific ation: Cardiovas cular Therapy Agents cyclobenzap rine 10 mg tablet 09-10 00:00: 00 02-02 23:59 :00 No [id number] PAIN 1 tablet 3 TIMES DAILY 1 tablet 3 TIMES DAILY (route: oral) Med Classific ation: Locomotor System Aspirin Childrens 81 mg chewable tablet 02-02 00:00: 00 Yes [id number] HEART 1 tablet DAILY 1 tablet DAILY (route: oral) Med Classific ation: Hematolog ical Agents atorvastati n 20 mg tablet 02-02 00:00: 00 Yes [id number] CHOLESTEROL 1 tablet DAILY 1 tablet DAILY (route: oral) Med Classific ation: Cardiovas cular Therapy Agents cetirizine 10 mg tablet 02-02 00:00: 00 Yes [id number] ALLERGIES 1 tablet BEDTIME 1 tablet BEDTIME (route: oral) Med Classific ation: Respirato ry Therapy Agents Eliquis 5 mg tablet 02-02 00:00: 00 Yes [id number] HEART 1 tablet 2 TIMES DAILY 1 tablet 2 TIMES DAILY (route: oral) Med Classific ation: Hematolog ical Agents Jardiance 10 mg tablet 02-02 00:00: 00 Yes [id number] DIABETES 1 tablet DAILY 1 tablet DAILY (route: oral) Med Classific ation: Endocrine metoprolol succinate ER 25 mg tablet,exte nded release 24 hr 02-02 00:00: 00 Yes [id number] HEART 1 tablet DAILY 1 tablet DAILY (route: oral) Med Classific ation: Cardiovas cular Therapy Agents allopurinol 100 mg tablet 2024-08 00:00: 00 Yes [id number] GOUT 1 tablet DAILY 1 tablet DAILY (route: oral) Med Classific ation: Gout and Hyperuric emia Therapy ferrous sulfate 325 mg (65 mg iron) tablet 2024-08 00:00: 00 Yes [id number] DEFICIENCY 1 tablet DAILY 1 tablet DAILY (route: oral) Med Classific ation: Electroly te Balance-N utritiona l Products mirtazapine 15 mg tablet 2024-08 00:00: 00 Yes [id number] UNKNOWN 1 tablet BEDTIME 1 tablet BEDTIME (route: oral) Med Classific ation: Central Nervous System Agents Vital Signs Vital Name Observation Time [...] ALBERTO SZYMANSKI RN TO OBSERVE AND ASSESS, BLADDER CLEANER/ORDER PROCESSING MANAGER TO OBSERVE FOR RISK FOR FALLS AND INSTRUCT IN FALL PREVENTION, HOME SAFETY, MEDICATION MANAGEMENT, INFECTION PREVENTION, AND NUTRITION MANAGEMENT. RN/BLADDER CLEANER/ORDER PROCESSING MANAGER NURSE MAY PERFORM O2 SATURATION LEVEL ON ADMISSION AND PRN FOR RN TO ASSESS/BLADDER CLEANER TO OBSERVE PATIENT, WITH NOTIFICATION TO THE PHYSICIAN IF SATURATION IS 90% IN THE ABSENCE OF MORE SPECIFIC PARAMETERS FROM THE PHYSICIAN. AGENCY MAY PERFORM A RESUMPTION OF CARE VISIT FOLLOWING ANY HOSPITAL ADMISSION. RN/BLADDER CLEANER/ORDER PROCESSING MANAGER TO MONITOR CO-MORBID CONDITIONS LISTED ON THE PLAN OF CARE AND ANY NEW CONDITIONS THAT PRESENT THEMSELVES DURING THIS EPISODE TO IDENTIFY CHANGES AND INTERVENE TO MINIMIZE COMPLICATIONS. [code = RN TO OBSERVE, ASSESS, EVALUATE, AND DEVELOP AN INDIVIDUALIZED PLAN OF CARE. AGENCY MAY ACCEPT ORDERS FROM CONSULTING PHYSICIANS ALBERTO SZYMANSKI RN TO OBSERVE AND ASSESS, BLADDER CLEANER/ORDER PROCESSING MANAGER TO OBSERVE FOR RISK FOR FALLS AND INSTRUCT IN FALL PREVENTION, HOME SAFETY, MEDICATION MANAGEMENT, INFECTION PREVENTION, AND NUTRITION MANAGEMENT. RN/BLADDER CLEANER/ORDER PROCESSING MANAGER NURSE MAY PERFORM O2 SATURATION LEVEL ON ADMISSION AND PRN FOR RN TO ASSESS/BLADDER CLEANER TO OBSERVE PATIENT, WITH NOTIFICATION TO THE PHYSICIAN IF SATURATION IS 90% IN THE ABSENCE OF MORE SPECIFIC PARAMETERS FROM THE PHYSICIAN. AGENCY MAY PERFORM A RESUMPTION OF CARE VISIT FOLLOWING ANY HOSPITAL ADMISSION. RN/BLADDER CLEANER/ORDER PROCESSING MANAGER TO MONITOR CO-MORBID CONDITIONS LISTED ON THE PLAN OF CARE AND ANY NEW CONDITIONS THAT PRESENT THEMSELVES DURING THIS EPISODE TO IDENTIFY CHANGES AND INTERVENE TO MINIMIZE COMPLICATIONS.] Future Scheduled Test MEDICATION MANAGEMENT; RN/BLADDER CLEANER/ORDER PROCESSING MANAGER TO REVIEW MEDICATIONS FOR INTERACTIONS, EFFECTIVENESS OF DRUG THERAPY, AND SIGNS/SYMPTOMS OF ADVERSE REACTIONS. MAY INSTRUCT AND REINFORCE MEDICATION TEACHING RELATED TO THE USE OF MEDICATIONS, DOSAGE, FREQUENCY, PURPOSE, SIDE EFFECTS, AND TO REPORT COMPLICATIONS. [code = MEDICATION MANAGEMENT; RN/BLADDER CLEANER/ORDER PROCESSING MANAGER TO REVIEW MEDICATIONS FOR INTERACTIONS, EFFECTIVENESS OF DRUG THERAPY, AND SIGNS/SYMPTOMS OF ADVERSE REACTIONS. MAY INSTRUCT AND REINFORCE MEDICATION TEACHING RELATED TO THE USE OF MEDICATIONS, DOSAGE, FREQUENCY, PURPOSE, SIDE EFFECTS, AND TO REPORT COMPLICATIONS.] Future Scheduled Test RESPIRATOR Y SYSTEM MANAGEMENT; RN TO ASSESS AND TEACH, BLADDER CLEANER/ORDER PROCESSING MANAGER TO OBSERVE AND TEACH RELATED TO ALTERED RESPIRATORY STATUS TO MINIMIZE COMPLICATIONS AND REDUCE HOSPITALIZATION. [code = RESPIRATORY SYSTEM MANAGEMENT; RN TO ASSESS AND TEACH, BLADDER CLEANER/ORDER PROCESSING MANAGER TO OBSERVE AND TEACH RELATED TO ALTERED RESPIRATORY STATUS TO MINIMIZE COMPLICATIONS AND REDUCE HOSPITALIZATION.] Future Scheduled Test COPD MANAG EMENT; RN TO ASSESS AND TEACH, BLADDER CLEANER/ORDER PROCESSING MANAGER TO OBSERVE AND TEACH SIGNS/SYMPTOMS OF COPD EXACERBATION AND PROVIDE EARLY INTERVENTIONS TO MINIMIZE RISK OF HOSPITALIZATION. RN/BLADDER CLEANER/ORDER PROCESSING MANAGER TO INSTRUCT ON SELF-CARE MANAGEMENT INCLUDING BREATHING TECHNIQUES, AIRWAY CLEARANCE, AND PROPER USE OF COPD MEDICATIONS. RN TO ASSESS AND TEACH, BLADDER CLEANER/ORDER PROCESSING MANAGER TO OBSERVE AND TEACH PATIENT/CAREGIVER ABILITY TO MONITOR AND RECORD VITAL SIGNS INCLUDING PULSE OXIMETRY AND BLOOD PRESSURE. PULSE OXIMETER AND BP MONITOR TO BE PROVIDED IF NEEDED [code = COPD MANAGEMENT; RN TO ASSESS AND TEACH, BLADDER CLEANER/ORDER PROCESSING MANAGER TO OBSERVE AND TEACH SIGNS/SYMPTOMS OF COPD EXACERBATION AND PROVIDE EARLY INTERVENTIONS TO MINIMIZE RISK OF HOSPITALIZATION. RN/BLADDER CLEANER/ORDER PROCESSING MANAGER TO INSTRUCT ON SELF-CARE MANAGEMENT INCLUDING BREATHING TECHNIQUES, AIRWAY CLEARANCE, AND PROPER USE OF COPD MEDICATIONS. RN TO ASSESS AND TEACH, BLADDER CLEANER/ORDER PROCESSING MANAGER TO OBSERVE AND TEACH PATIENT/CAREGIVER ABILITY TO MONITOR AND RECORD VITAL SIGNS INCLUDING PULSE OXIMETRY AND BLOOD PRESSURE. PULSE OXIMETER AND BP MONITOR TO BE PROVIDED IF NEEDED] Future Scheduled Test OXYGEN THE RAPY; RN/BLADDER CLEANER/ORDER PROCESSING MANAGER TO INSTRUCT ON OXYGEN MANAGEMENT INCLUDING: ADMINISTRATION AT 2L/MIN VIA CONTINUOUS/PRN FOR , CARE OF EQUIPMENT AND SAFETY. [code = OXYGEN THERAPY; RN/BLADDER CLEANER/ORDER PROCESSING MANAGER TO INSTRUCT ON OXYGEN MANAGEMENT INCLUDING: [...] Scheduled Test PRN VISITS ; NUMBER OF RN/BLADDER CLEANER/ORDER PROCESSING MANAGER VISITS: 2 RN/BLADDER CLEANER/ORDER PROCESSING MANAGER TO PERFORM: WOUND EVALUATE FOR THE FOLLOWING REASONS: OBSERVATION [code = PRN VISITS; NUMBER OF RN/BLADDER CLEANER/ORDER PROCESSING MANAGER VISITS: 2 RN/BLADDER CLEANER/ORDER PROCESSING MANAGER TO PERFORM: WOUND EVALUATE FOR THE FOLLOWING REASONS: OBSERVATION] Future Scheduled Test RN/BLADDER CLEANER/ORDER PROCESSING MANAGER TO PERFORM/TEACH ARTERIAL ULCER CARE TO RIGHT AND LEFT LEGS IRRIGATE/CLEANSE WITH WOUND CLEANZER APPLY CALCIUM SILVER ALGINATE SECURE WITH 4XR BORDER GAUZE CHANGE DRESSING EVERY 3 DAYS A WEEK FOR TWO WEEKS THEN 2 DAYS A WEEK TILL EOE DATE AND CHANGE PRN FOR DISLODGED DRESSING OR SOILING BY CAREGIVER AND PT IN BETWEEN NURSING VISITS [code = RN/BLADDER CLEANER/ORDER PROCESSING MANAGER TO PERFORM/TEACH ARTERIAL ULCER CARE TO RIGHT [...] 2025-06-16 00:00:00 2025-06-24 00:00:00 Outpatient [facility] [id number] 2025-06-24 00:00:00 DISCHARGE TO HOME OR SELF CARE INDEPENDEN T IN THE HOME HH - NON COMPLIANT WITH PLAN OF TREATMENT 100.00
--- OUTSIDE RECORDS SUMMARY | 2025-07-07 11:46 | XMS_ITS | Clinical Summary ---
Author Organization [employer] ([place], [place], [place], [place], [place]) Address [address] [place] [address] Care Team Providers Care Scrap Collector Name Role Phone Ted Matute MD Primary Care Provider [phone] Ted Matute MD Unavailable [phone] Social History Tobacco Use Types Packs/Day Years [...] Vaccine (#1) 2025 Insurance [place]ID OF [place] [facility] Care Teams Scrap Collector Relationship Specialty Start Date End Date Ted Matute MD [address] [facility] [address] [place] [phone] PCP - General Family Medicine 05/20/23 Ted Matute MD [address] [facility] [address] [place] [phone] Referring Physician Family Medicine 05/20/23
--- OUTSIDE RECORDS SUMMARY | 2025-07-07 11:46 | XMS_ITS | Clinical Summary ---
Author Organization Healthcare Address [address] [place] [address] Care Team Providers Care Corporate Manager Name Role Phone Ted Matute MD Primary Care Provider [phone]- [phone] Family History Medical History Relation Name Comments [...] r (1 - 1-dose 75+ series) 02/05/2020 [id number] Vaccine (1 - 20 25- season) 2025 [...] this topic Insurance [place] Care Teams Corporate Manager Relationship Specialty Start Date End Date Ted Matute MD [facility] [place] [address] [facility] - General 12/23/20
--- OUTSIDE RECORDS SUMMARY | 2025-07-07 11:46 | XMS_ITS | Encounter Summary ---
Author Organization [employer] ([place], [place], [place], [place], [place]) Address [address] [place] [address] Care Team Providers Care Manager Credit Risk Name Role Phone Ted Matute MD Primary Care Provider + [phone] Ted Matute MD Unavailable [phone] Encounter Details Date Type Department Care Team (Late st Contact Info) Description 09/28/2024 Lab Requisition [facility] [address] [place] [address] Maria Luz Johnson, PEDIATRIC MEDICAL ASSISTANT [address] [address] Sepsis, unspecified organism (HCC) Social [...] (HCC) documented in this encounter Care Teams Manager Credit Risk Relationship Specialty Start Date End Date Ted Matute MD [address] [facility] [address] [place] [phone] PCP - General Family Medicine 05/20/23 Ted Matute MD [address] [facility] [address] [place] [phone] Referring Physician Family Medicine 05/20/23 documented as of this encounter
--- OUTSIDE RECORDS SUMMARY | 2025-07-07 11:46 | XMS_ITS | Clinical Summary ---
Author Organization [facility] Address [address] [facility] [address] [place] [address] Phone Care Team Providers Care Cutlet Maker Pork Name Role Phone Unavailable Unavailable Conditions or Problems No information available. Medications No information available. Medications Administered No information available. Allergies, Adverse Reactions, Alerts No information available. Results No information available. Plan of Care No information available. Procedures No information available. Vital Signs No information available. Immunizations No information available. Advance Directives No information available.
--- OUTSIDE RECORDS SUMMARY | 2025-07-07 11:46 | XMS_ITS | Patient Health Record ---
[facility] Address [address] [facility] [address] [place] [id number] Care Team Providers Care Appraiser Personal Property Name Role Phone Josee Matute Primary Care [...] to contro l bladder Drug Allergy Active Zvpboyjqmf-QLT-Efqu eine Unknown Drug Allergy Active cephalexin Cephalexin [...] daily; Duration: 7 days 06/28/2023 Not-Taking Nyamyc 815056 UNIT/GM 1 heri applied topically 3 times [...] tab(s) orally once a day Not-Taking Nystatin 265545 UNIT/GM 1 heri applied topically 2 times [...] Status W/U Status Risk Notes Problem Anemia (938041872) Anemia (D64.9) Active confirmed Problem Peripheral venous insufficiency (91319813) Venous insufficiency (I87.2) Active confirmed Problem Skin ulcer (28213753) Skin ulcer (L98.499) Active confirmed Problem Skin ulcer of calf (671090352) 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) Active confirmed Problem Non-pressure chronic ulcer of unspecified part of right lower leg limited to breakdown of skin (L97.911) Active confirmed Problem Chronic ulcer of skin of lower leg (disorder) (0890056587558657 4) Non-pressure chronic ulcer of unspecified part of left lower leg limited to breakdown of skin (L97.921) Active confirmed Problem Peripheral vascular disease (607451502) Peripheral vascular disease (I73.9) Active confirmed Problem Sciatica (86973614) Sciatica of right side (M54.31) Active confirmed Problem Acquired hypothyroidism (549606674) Acquired hypothyroidism (E03.9) Active confirmed Problem Renal insufficiency (985042281) Renal insufficiency (N28.9) Active confirmed Problem Migraine (28972778) Migraine without status migrainosus, not intractable, unspecified migraine type (G43.909) Active confirmed Problem Herpes zoster without complication (473933054) Herpes zoster without complication (B02.9) Active confirmed Problem Osteoarthritis of knee (467407195) Primary osteoarthritis of both knees (M17.0) Active confirmed Problem Methicillin resistant Staphylococcus aureus infection (601571057) MRSA infection (A49.02) Active confirmed Problem Hypothyroidism (13785565) Hypothyroidism, unspecified type (E03.9) Active confirmed Problem Pulmonary atelectasis (24014486) Pulmonary atelectasis (J98.11) Active confirmed Problem Leg ulcer (41318948) Leg ulcer (L97.909) Active confirmed Problem Migraine variant with headache (disorder) (341332289) Migraine headache (G43.909) Active confirmed Problem Localized, primary osteoarthritis of the pelvic region and thigh (544896571) Primary osteoarthritis of right hip (M16.11) Active confirmed Problem Narcolepsy (80387314) 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) Active confirmed Problem Chronic sinusitis (64422819) Sinusitis, unspecified chronicity, unspecified location (J32.9) Active confirmed Problem Osteoarthritis (901862302) Osteoarthritis, unspecified osteoarthritis type, unspecified site (M19.90) Active confirmed Problem Allergic rhinitis (37379537) Perennial allergic rhinitis, unspecified allergic rhinitis trigger (J30.89) Active confirmed Problem Gingivitis (12590597) Gingivitis (K05.10) Active confirmed Problem Seasonal allergic rhinitis (455004855) Chronic seasonal allergic rhinitis, unspecified trigger (J30.2) Active confirmed Problem Heart failure (73605195) Congestive heart failure, unspecified HF chronicity, unspecified heart failure type (I50.9) Active confirmed Problem Narcolepsy without cataplexy (77007920837384) 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) Active confirmed Problem Drug allergy (550956321) Multiple drug allergies (Z88.9) Active confirmed Problem Arthritis of knee (947931837) Arthritis of knee (M17.10) Active confirmed Problem Pressure injury of right heel, stage 2 (L89.612) Active confirmed Plan Of Treatment No Information Insurance Providers Payer Name Payer Address Payer Phone Subscriber Number Group Number Insured Name Patient Relationship to Insured Coverage Start Date Coverage End Date MEDICARE PART B [address] [address] [place] [id number] RUPESH CURRY Self - patient is the insured MEDICAID [id number] [address] [place] [id number] RUPESH CURRY Self - patient is the [...] turbinate 01/08/12 Hospitalization History Reason Date(Month/Year) migraine [facility] ER-nose bleeds 01/09/12 [facility] ER-nose bleed-transferred to , hea rt rate lowered 01/28/12 [facility] ER-Evaluation for DVT's 07/24/12 [facility] ER-mouth swollen [facility]-Pneumonia 02/26 to 03/01/2020
--- OUTSIDE RECORDS SUMMARY | 2025-07-07 11:46 | XMS_ITS | Continuity of Care Document ---
Author Organization [place] - [employer], [facility] Address [address] [place] [phone] Assessment No assessment recorded. Plan of Treatment Reminders Order Date Submit Date Provider Last Modified By Organization Details Last Modified Time Details Appointments FOLLOW UP 30 2024 01:30P M Jackeline Johnson APRN Not available Not available Not available Lab None recorded. Referral wound care referral [address] [facility] [address] David Camara, [place], [address], 05/25/2025 14:31:23 Procedures None recorded. Surgeries None recorded. Imaging XR, knee, 3 view [id number] [place] [address], [address] [place] [address], [phone], 04/27/2025 11:03:39 Medication Orders cetirizin e 10 mg tablet 2024 025 [facility], [address] [place] [address], [id number], 04/23/2025 16:17:01 azithromy quan 250 mg tablet 2024 025 [facility], [address] [place] [address], [id number], 04/23/2025 16:26:19 fluconazo le 150 mg tablet 2024 025 [facility], [address] [place] [address], [id number], 04/23/2025 16:26:20 Patient TargetsNo targets recorded. Patient InstructionsNo instructions recorded. Reason for Referral Referring Physician: Sparkle Johnson, Family Medicine, Encounter Date: 04/23/2025 Results Created Date Observation Date Name Description Value Unit Range Abnormal Flag Note LastModifiedBy Organization Detail LastModifiedTime 04/07/2004/07/2025 XR, chest , 2 view No observ ation record ed. [email or web address] [facility] [address], [place], [address], 04/09/2025 11:52:00 04/08/20 25 04/07/2025 elect christine sosa am, pratik ne ECG, 12 leads min No observ ation record ed. [address], [place], [address], 04/09/2025 13:11:16 04/08/20 25 04/08/2025 US, doppl er echoc ardio gram No observ ation record ed. [address], [place], [address], 04/09/2025 13:10:28 04/26/20 25 XR, knee, 3 view No observ ation record ed. [address], [place], [address], 05/03/2025 13:30:05 05/06/20 25 05/05/2025 XR, chest No observ ation record ed. [address], [place], [address], 05/06/2025 17:38:38 06/07/20 25 06/07/2025 XR, chest No observ ation record ed. [address], [place], [address], 06/15/2025 10:17:22 06/08/2006/07/2025 elect christine palomogr am No observ ation record ed. [address], [place], [place], [address], 06/15/2025 10:17:44 06/08/2006/08/2025 imagi ng/di agnos tic resul t No observ ation record ed. [address], [place], [place], [address], 06/15/2025 10:18:41 06/08/2006/08/2025 CT, angio gram, chest , w/ contr ast No observ ation record ed. [address], [place], [place], [address], 06/15/2025 10:19:06 Result Notes None recorded. Problems Name Problem SNOMED Code Status Onset Date Resolution Date Notes Provider Name and Address Organization Details Recorded Time Generalized anxiety disorder 75669331 Active 2023 Randi gandara, [employer] 5 11:02:08 Allergic rhinitis 63253730 Active 2023 Randi gandara, [employer] 5 11:02:31 Gastroesophage al reflux disease without esophagitis 742543392 Active 2023 Randi gandara, [employer] 5 11:02:05 Edema of lower extremity 760431358 Active 2023 Randi Wiseman [employer], [employer] 5 11:01:59 Overactive urinary bladder 510396951 Active 2023 Randi gandara, [employer] 5 11:02:16 Chronic obstructive pulmonary disease 63178265 Active 2023 Randi gandara, [employer] 5 11:01:51 Hypothyroidism 09926517 Active 2023 Randi gandara, [employer] 5 11:02:10 Pain of multiple joints 48288242 Active 2023 Randi gandara, [employer] 5 11:02:20 Moderate recurrent major depression 38779421 Active 2023 Randi gandara, [employer] 5 11:02:13 Essential hypertension 26325005 Active 2023 Randi Wiseman [employer], [employer] 5 11:02:02 Ulcer of lower extremity 07286025 Active 2023 Randi Wiseman [employer], [employer] 5 11:02:26 Dyspnea 340631854 Active 2023 Randi Wiseman [employer], [employer] 5 11:01:54 Paroxysmal atrial fibrillation 294651072 Active 2024 W/ RVR Randi Wiseman [employer] 5 11:03:05 Chronic kidney disease stage 3 550297575 Active 2024 Randi Wiseman [employer] 5 11:03:28 Problem Notes None recorded. Procedures Surgical History Date Name Laterality Status Provider Name and Address Organization Details Recorded Time procedure on hip joint completed Randi Wiseman [employer]. 12/20/2023 14:59:22 Imaging Results None recorded. Procedure Notes None recorded. Medical Equipment None Reported. Allergies Allergen ID Allergen Name Allergen Category Reaction Reaction Severity Criticality Documentation Date Start Date Code Code System Note Provider Name and Address Organization Details Recorded Time 69302 cephalexi n medicatio n Not available Not available Not available 12/26/2023 2231 RxNorm [employer]i [employer] 4 15:56:24 74451 butalbita l medicatio n Not available Not available Not available 12/26/2023 56965 RxNorm Randi gandara, [employer] 4 15:56:35 84593 propoxyph will medicatio n Not available Not available Not available 12/26/2023 8785 RxNorm Randi gandara, [employer] 4 15:56:57 96592 tetracycl ine medicatio n Not available Not available Not available 12/26/2023 81403 RxNorm Randi gandara, [employer] 15:57:08 79697 Sudha medicatio n Not available Not available Not available 12/26/2023 80706 6 RxNorm Randi gandara, [employer] 15:57:24 39547 Claritin medicatio n Not available Not available Not available 12/26/2023 33967 6 RxNorm Randi gandara, [employer] 4 15:57:36 11284 Macrobid medicatio n Not available Not available Not available 12/26/2023 34544 1 RxNorm Randi gandara, [employer] 4 15:57:47 67781 doxycycli ne Not available Not available Not available Not available 12/26/2023 3640 RxNorm Randi gandara, [employer] 4 15:59:26 11315 pseudoeph edrine Not available Not available Not available Not available 12/26/2023 8896 RxNorm Randi gandara, [employer] 4 15:59:38 24043 guaifenes in medicatio n Not available Not available Not available 12/26/2023 5032 RxNorm Randi gandara, [employer] 4 15:59:49 72605 hydrocodo ne Not available Not available Not available Not available 12/26/2023 5489 RxNorm Randi Wiseman [employer] 16:00:09 10236 Product containin g penicilli n (product) medicatio n Not available Not available Not available 12/26/2023 84510 8001 SNOMED Randi Wiseman [employer], [employer] 16:00:16 48394 Substance with sulfonami de structure and antibacte rial mechanism of action (substanc e) medicatio n Not available Not available Not available 12/26/2023 85181 8003 SNOMED Randi Wiseman [employer], [employer] 16:00:27 88665 iodine medicatio n Not available Not available Not available 12/26/2023 5933 RxNorm Randi Wiseman [employer], [employer] 16:00:35 12520 Seldane medicatio n Not available Not available Not available 12/26/2023 98946 0 RxNorm Randi Wiseman [employer], [employer] 16:00:44 12384 Midrin medicatio n Not available Not available Not available 12/26/2023 72095 RxNorm Randi gandara, [employer] 16:00:51 99700 fluticaso ne Not available Not available Not available Not available 12/26/2023 85459 RxNorm makes arthr itis worse Randi Wiseman [employer], [employer] 16:01:11 72990 codeine medicatio n Not available Not available Not available 12/26/2023 2670 RxNorm nervo us Randi Wiseman [employer], [employer] 16:01:29 31359 mometason e furoate medicatio n Not available Not available Not available 12/26/2023 19988 RxNorm cough and sore throa t Randi Wiseman [employer], [employer] 4 16:02:04 68250 clindamyc in Not available Not available Not available Not available 12/26/2023 2582 RxNorm GI Randi gandara, [employer] 4 16:02:45 03519 erythromy quan medicatio n Not available Not available Not available 12/26/2023 4053 RxNorm rash Randi gandara, [employer] 4 16:02:58 66848 Singulair medicatio n Not available Not available Not available 12/26/2023 53544 9 RxNorm red face and numbn ess Randi gandara, [employer] 4 16:03:16 06620 Motrin medicatio n Not available Not available Not available 12/26/2023 40549 8 RxNorm GI Randi gandara, [employer] 4 16:03:32 52165 Naprosyn medicatio n Not available Not available Not available 12/26/2023 89165 2 RxNorm GI Randi gandara, [employer] 4 16:03:43 59725 Relafen medicatio n Not available Not available Not available 12/26/2023 27619 4 RxNorm GI Randi gandara, [employer] 4 16:04:04 04894 tramadol medicatio n Not available Not available Not available 12/26/2023 59819 RxNorm dizzi ness Randi gandara, [employer] 4 16:04:17 01869 imipramin e Not available Not available Not available Not available 12/26/2023 5691 RxNorm urina ry reten tion Randi gandara, [employer] 4 16:22:41 27382 lisinopri l medicatio n Not available Not available Not available 12/26/2023 53294 RxNorm cough Randi gandara, [employer] 4 16:22:51 24699 Paxil medicatio n Not available Not available Not available 12/26/2023 69395 8 RxNorm nervo pedro s Randi gandara, [employer] 4 16:23:06 61134 gatifloxa quan medicatio n Not available Not available Not available 12/26/2023 04612 6 RxNorm GI Randi gandara, [employer] 4 16:23:38 85623 fluticaso ne / salmetero l medicatio n Not available Not available Not available 12/26/2023 03771 5 RxNorm nose pain Randi gandara, [employer] 4 16:26:38 76369 Reglan medicatio n Not available Not available Not available 12/26/2023 9230 RxNorm const ipati on Randi gandara, [employer] 4 17:29:23 56465 clarithro mycin medicatio n Not available Not available Not available 12/26/2023 68040 RxNorm nervo pedro s Randi gandara, [employer] 4 17:29:44 59403 Zithromax medicatio n Not available Not available Not available 12/26/2023 00755 4 RxNorm Randi gandara, [employer] 4 17:29:55 04067 Mucinex medicatio n Not available Not available Not available 12/26/2023 15941 7 RxNorm Randi gandara, [employer] 4 17:30:01 85267 gabapenti n medicatio n Not available Not available Not available 12/26/2023 58649 RxNorm swell ing of legs Randi gandara, [employer] 4 17:30:19 33446 baclofen medicatio n Not available Not available Not available 12/26/2023 1292 RxNorm unabl e to contr ol bladd er Randi gandara, [employer] 4 17:30:45 96595 allopurin ol medicatio n Not available Not available Not available 12/26/2023 519 RxNorm urina ry incon t Randi gandara, [employer] 4 17:31:45 42479 Colcrys medicatio n Not available Not available Not available 12/26/2023 12485 8 RxNorm Randi gandara, [employer] 17:31:53 08114 Uloric medicatio n Not available Not available Not available 12/26/2023 50222 6 RxNorm Randi gandara, [employer] 17:31:59 02009 probeneci d medicatio n Not available Not available Not available 12/26/2023 8698 RxNorm Randi gandara, [employer] 17:32:07 75819 azithromy quan medicatio n other Not available low 06/25/20252020 38930 RxNorm Not Available [employer] - [employer] - prod 5 11:38:44 61133 colchicin e medicatio n diarrhea Not available low 06/25/20252020 2683 RxNorm Not Available [employer] - [employer] - prod 5 11:38:44 33622 fexofenad ine medicatio n other Not available low 06/25/20252020 41050 RxNorm Not Available [employer] - [employer] - prod 5 11:38:[address] medicatio n other Not available high 06/25/20252020 54510 RxNorm face red and numb Not Available [employer] - prod 5 11:38:44 79424 ibuprofen medicatio n Not available Not available low 06/25/20252020 5640 RxNorm unrec ogniz ed react ion (text : GI Intol eranc e, code: 89708 [id number]) (from exter nal sourc e) Not Available [employer] - prod 5 11:38:44 03989 naproxen medicatio n Not available Not available low 06/25/20252020 7258 RxNorm unrec ogniz ed react ion (text : GI Intol eranc e, code: 07956 4005) (from exter nal sourc e) Not Available [employer] - prod 5 11:38:44 07525 paroxetin e Not available anxiety Not available low 06/25/20252020 27636 RxNorm Not Available [employer] - prod 5 11:38:44 23513 prednison e medicatio n other Not available low 06/25/20252020 8640 RxNorm Not Available [employer] - prod 5 11:38:44 56665 metoclopr amide Not available other Not available low 06/25/20252020 6915 RxNorm Const ipati on Not Available [employer] - prod 5 11:38:44 30083 nabumeton e medicatio n Not available Not available low 06/25/20252020 69235 RxNorm unrec ogniz ed react ion (text : GI Intol eranc e, code: 29055 4005) (from exter nal sourc e) Not Available [employer] - prod 5 11:38:44 81644 febuxosta t medicatio n other Not available low 06/25/20252020 42163 RxNorm Weakn ess Not Available [employer] - prod 5 11:38:44 46001 fluticaso ne / salmetero l medicatio n Not available Not available Not available 06/25/2025 15038 5 RxNorm Not Available [employer] - prod 5 11:39:13 99302 acetamino phen / hydrocodo ne medicatio n Not available Not available Not available 06/25/2025 06702 2 RxNorm Not Available [employer] - prod 11:39:13 76892 nitrofura ntoin, macrocrys tals / nitrofura ntoin, monohydra te medicatio n Not available Not available Not available 06/25/2025 83020 2 RxNorm Not Available [employer] - prod 11:39:13 Medications Name Sig Start Date Stop [...] Avai lable Vitals Date Recorded Body height Provider Name an d Address Organization Details Last Updated DateTime 04/23/2025 152.4 cm Randi Tornado [employer]. 04/23/2025 14:38:27 Date Recorded Body mass index (BMI) Body weight Heart rate Oxygen saturation Systolic And Diastolic Provider Name and Address Organization Details Last Updated DateTime 04/23/2025 32.4 kg/m2 85259.33 g 71 /min 86 % 115/56 mm[Hg] Katie Cruz [employer]. 14:46:43 Social History Question Answer Notes LastModified by Organizat ion Details LastModified Time Tobacco Smoking Status Never Smoker Randi Tornadoankit gandara [employer]. 12/20/2023 14:57:36 Are You Blind Or Do You Have Difficulty Seeing? No [email or web address] Information n ot available 03/31/2024 What Is Your Level Of Caffeine Consumption? None Information not available 12/20/2023 Are You A Caregiver? No Information not available 03/31/2024 In The 14 [...] Do You Have Serious Difficulty Hearing? No [email or web address] Information not available 03/31/2024 What Type Of Diet Are You Following? REGULAR [email or web address] Information n ot available 03/31/2024 Have There Been Any Changes To Your Family Or Social Situation? No [email or web address] Information no t available 03/31/2024 What Was The Date Of Your Most Recent Tobacco Screening? 04/23/2025 Information not available 04/23/2025 What Is Your Relationship Status? Information not available 12/20/2023 Do You Use Your Seat Belt Or Car Seat Routinely? Yes Information not available 12/20/2023 Are You Sexually Active? No [email or web address] Information not available 03/31/2024 Do You Participate In Social Media? No [email or web address] Information not available 03/31/2024 Has Tobacco Cessation Counseling Been Provided? No [email or web address] Information not available 03/31/2024 Have You Recently Traveled Abroad? No Information not available 12/20/2023 Do You Have Difficulty Walking Or Climbing Stairs? Yes Information not available 03/31/2024 Are You Currently In School? No [email or web address] Information not available 03/31/2024 Do You Have Any Dietary Restrictions? No [email or web address] Information not available 03/31/2024 Sex: Female Functional Status Question Answer Note LastModified by Organizat ion Details LastModified Time Do you use any illicit or recreational drugs? No Information not available 12/20/2023 Do you or have you ever used any other forms of tobacco or nicotine? No Information not available 03/31/2024 What is your level of alcohol consumption? None [email or web address] Information not available 03/31/2024 Are you currently employed? No [email or web address] Information not available 03/31/2024 Do you have transportation difficulties? No Information not available 03/31/2024 Are you able to walk independently without assistance or assistive devices? [email or web address] [email or web address] Information not available 03/31/2024 Do you have difficulty doing errands alone? Yes [email or web address] Information not available 03/31/2024 Are you able to care for yourself independently? Yes [email or web address] Information not available 03/31/2024 Do you have difficulty dressing, bathing, grooming, or toileting? Yes [email or web address] Information not available 03/31/2024 Mental Status Question Answer Note LastModified by Organization D etails LastModified Time Do you have difficulty concentrating, remembering or making decisions? No [email or web address] Information no t available 03/31/2024 Family History Nothing Reported. Medical History Condition Response Other Y Emergency room visit since last appointm ent. N Hospitalizations N Thyroid Problems Y Gynecological History Statement/Question Response Date of Last Pap Smear Most Recent Mammogram Obstetrics History GPAL:G 0 P 0 0 0 0 Immunizations Vaccine Type Date Status Note Provider Name and Address Organization Details Recorded Time zoster recombinant 025 cancelled patient objection Maria Luz Johnson APRN [address] [place] [address], [phone], [facility] 10/29/2024 13:45:04 pneumococcal polysaccharide PPV23 025 cancelled patient objection Maria Luz Johnson APRN [address] [place] [address], [phone], [facility] [employer] 10/29/2024 13:45:04 COVID-19 vaccine, vector-nr, rS-Ad26, PF, 0.5 mL 021 completed Not Available [facility] 04/23/2025 14:35:02 Past Encounters Encounter ID Performer Location Encounter Start Date Encounter Closed Date Diagnosis/Indication Diagnosis SNOMED-CT Code Diagnosis ICD10 Code Diagnosis IMO Codes Diagnosis Note [id number] Maria Luz Johnson [address] [address] 04/23/2025 14:32:25 04/23/2025 15:43:16 Lower respiratory tract infection 44047726 J22 Candidiasis of vagina 72 859925 B37.31 497215 Allergic rhinitis 312751 04 J30.9 Pain of ri ght knee joint 6459572947 18990 M25.561 985024 Ulcer of l ower extremity 39541714 L97.912 L97.922 71089672 Body mass index 30+ - obesity 330885519 Z68.32 044962 Health Concerns Section Related Observation LastModified by Organization Detai ls LastModified Time None Recorded Concern Status LastModified by Organization Details LastModified Time None Recorded Payers Encounter Date Sequence Insurance Name Policy Number Policy Mayorga Covered Member ID Mayorga Member ID Guarantor Name 04/23/2025 1 [employer] (MEDICARE REPLACEMENT/A DVANTAGE - HMO) Lian Bliss [id number] Lian Bliss Notes Date Note Type Note Provider Name and Address Organization Details Recorded Time 04/23/2025 text/html pt here today with c/o [...] her legs herself with paper towels and jesse wraps. i will refill allergy med for [...] did unwrap right leg and pt had jesse wrap and paper towel that had yellow [...] pt states that the wound care at [facility] told her that she needed home health. i will refer to another wound care facility. Maria Luz Johnson APRN [address] [facility], [place], [address], [place] - [employer] 04/23/2025 16:53:01 OBGyn Episode No OBEpisode recorded.
--- OUTSIDE RECORDS SUMMARY | 2025-07-07 11:46 | XMS_ITS | Referral Summary ---
Author Organization [employer] ([place], [place], [place], [place], [place]) Address [address] [place] [address] Care Team Providers Care Candle Wrapper Name Role Phone Ted Matute MD Primary Care Provider [phone] Ted Matute MD Unavailable [phone] Social History Tobacco Use Types Packs/Day Years Used Date Smoking Tobacco: Never Assessed Comments Unknown Sex and Gender Information Value Date Recorded Sex Assigned at Not on file Legal Sex Female 3:57 PM CDT Gender Identity Not on file Sexual Orientation Not on file Plan of Treatment Not on file Insurance MEDICAID OF [place] [facility] Care Teams Candle Wrapper Relationship Specialty Start Date End Date Ted Matute MD [address] [place] [phone] PCP - General Family Medicine 05/20/23 Ted Matute MD [address] [place] [address] Referring Physician Family Medicine 05/20/23
--- OUTSIDE RECORDS SUMMARY | 2025-07-07 11:47 | XMS_ITS | Data Portability ---
Author Organization [employer] [facility] Address [address] [place] [address] Assessment No assessment recorded. Plan of Treatment Reminders Order Date Submit Date Provider Last Modified By Organization Details Last Modified Time Details Appointments FOLLOW UP 30 2024 01:30P Dwayne Johnson APRN Not available Not available Not available Lab CBC w/ auto diff 2024 025 [facility] [address] [place], [address], 01/23/2025 08:12:19 CMP, serum or plasma 2024 025 [facility] [address] [place], [address], 01/23/2025 08:12:19 TSH + free T4, serum 2024 025 [place] [facility] [address] [place], [address], 01/23/2025 08:12:19 lipid panel, serum 2024 025 [facility]), [address] [place], [address], 01/23/2025 08:12:20 HbA1c (hemoglob in A1c), blood 2024 025 [facility]), [address] [place], [address], 01/23/2025 08:12:21 vitamin D, 25-hydrox y, total, serum 2024 025 [facility]), [address] [place], [address], 01/23/2025 08:12:21 cobalamin and folate panel, serum 2024 025 [facility]), [address] [place], [address], 01/23/2025 08:12:20 CBC w/ auto diff 2023 024 [facility]), [address] [facility], [place], [address], 07/31/2024 13:07:33 CMP, serum or plasma 2023 024 [place] [facility]), [address] [place], [address], 07/31/2024 13:07:34 TSH + free T4, serum 2023 024 [facility]), [address] [place], [address], 07/31/2024 13:07:33 BNP (B-type natriuret ic peptide), serum or plasma 2023 024 [facility] [facility]), [address] [place], [address], 07/31/2024 13:07:35 lipid panel, serum 2023 024 [place] [facility]), [address] [place], [address], 07/31/2024 13:07:34 HbA1c (hemoglob in A1c), blood 2023 024 [place] [facility]), [address] [place], [address], 07/31/2024 13:07:35 iron + TIBC + ferritin, serum 2023 024 [place] [facility]), [address] [facility], [place], [address], 07/31/2024 13:07:32 Referral wound care referral [address] [facility], [address] [place] [address] David Camara, [place], [address], 05/25/2025 14:31:23 Procedures procedure , dressing change (PROC) 2023 024 Not available 07/30/2024 13:41:38 Surgeries None recorded. Imaging XR, knee, 3 view [address], [address] [place] [address], [address], 04/27/2025 11:03:39 XR, foot, 3 or more view 2024 025 [facility], [address] [place] [address], [address], 10/29/2024 17:03:27 Medication Orders cetirizin e 10 mg tablet 2024 025 [facility], [address] [place] [address], [address], 04/23/2025 16:17:01 azithromy quan 250 mg tablet 2024 025 [facility], [address] [place] [address], [address], 04/23/2025 16:26:19 fluconazo le 150 mg tablet 2024 025 [facility], [address] [place] [address], [address], 04/23/2025 16:26:20 cetirizin e 10 mg tablet 2024 025 [facility], [address] [place] [address], [address], 03/09/2025 12:20:25 buspirone 7.5 mg tablet 2024 025 [facility], [address] [place] [address], [address], 03/09/2025 12:35:28 Eliquis 5 mg tablet 2024 025 [facility], [address] [place] [address], [address], 03/12/2025 13:20:40 cyclobenz aprine 10 mg tablet 2024 025 [facility], [address] [place] [address], [address], 03/09/2025 12:35:26 bumetanid e 1 mg tablet 2024 025 [facility], [address] [place] [address], [address], 03/09/2025 12:35:27 cetirizin e 10 mg tablet 2024 025 [facility], [address] [place] [address], [address], 04/23/2025 17:16:37 ipratropi um 0.5 mg-albute rol 3 mg (2.5 mg base)/3 mL nebulizat ion soln 2024 025 [facility], [address] [place] [address], [address], 01/22/2025 14:43:28 mirtazapi ne 15 mg tablet 2024 025 [facility], [address] [place] [address], [address], 03/18/2025 16:55:47 buspirone 7.5 mg tablet 2024 025 [facility], [address] [place] [address], [address], 01/22/2025 14:43:26 sertralin e 100 mg tablet 2024 025 [facility], [address] [place] [address], [address], 03/18/2025 16:55:45 Gemtesa 75 mg tablet 2024 025 [facility], [address] [place] [address], [address], 02/02/2025 13:10:17 bumetanid e 1 mg tablet 2024 025 [facility], [address] [place] [address], [address], 01/22/2025 14:43:25 meloxicam 7.5 mg tablet 2024 025 [facility], [address] [place] [address], [address], 01/22/2025 14:43:28 famotidin e 20 mg tablet 2024 025 [facility], [address] [place] [address], [address], 01/22/2025 14:43:27 pantopraz ole 40 mg tablet,de layed release 2024 025 [facility], [address] [place] [address], [address], 03/18/2025 16:55:47 levothyro xine 25 mcg tablet 2024 025 [facility], [address] [place] [address], [address], 03/18/2025 16:55:48 cetirizin e 10 mg tablet 2024 025 [facility], [address] [place] [address], [address], 12/07/2024 16:42:07 cyclobenz aprine 10 mg tablet 2024 025 [facility], [address] [place] [address], [address], 12/07/2024 16:42:09 ipratropi um 0.5 mg-albute rol 3 mg (2.5 mg base)/3 mL nebulizat ion soln 2024 025 [facility], [address] [place] [address], [address], 12/26/2024 12:08:12 mirtazapi ne 15 mg tablet 2024 025 [facility], [address] [place] [address], [address], 12/07/2024 16:42:02 buspirone 7.5 mg tablet 2024 025 [facility], [address] [place] [address], [address], 12/07/2024 16:42:10 sertralin e 100 mg tablet 2024 025 [facility], [address] [place] [address], [address], 12/07/2024 16:42:10 valsartan 160 mg tablet 2024 025 [facility], [address] [place] [address], [address], 01/22/2025 11:41:58 Gemtesa 75 mg tablet 2024 025 [facility], [address] [place] [address], [address], 12/07/2024 16:42:06 bumetanid e 1 mg tablet 2024 025 [facility], [address] [place] [address], [address], 12/07/2024 11:49:35 meloxicam 7.5 mg tablet 2024 025 [facility], [address] [place] [address], 78[address], 12/07/2024 16:42:10 famotidin e 20 mg tablet 2024 025 [facility], [address] [place] [address], 80[address], 12/07/2024 16:42:08 pantopraz ole 40 mg tablet,de layed release 2024 025 [facility], [address] [place] [address], [address], 12/07/2024 16:42:02 levothyro xine 25 mcg tablet 2024 025 [facility], [address] [place] [address], [address], 12/07/2024 16:42:08 cetirizin e 10 mg tablet 2023 024 [facility], [address] [place] [address], [address], 08/07/2024 14:37:49 mirtazapi ne 15 mg tablet 2023 024 [facility], [address] [place] [address], [address], 08/07/2024 14:37:57 buspirone 7.5 mg tablet 2023 024 [facility], [address] [place] [address], [address], 08/07/2024 14:37:54 sertralin e 100 mg tablet 2023 024 [facility], [address] [place] [address], [address], 08/07/2024 14:37:51 Gemtesa 75 mg tablet 2023 024 [facility], [address] [place] [address], 311[address], 08/07/2024 14:37:52 valsartan 160 mg tablet [address], [address] [place] [address], [address], 01/22/2025 11:24:03 bumetanid e 1 mg tablet 2023 024 [facility], [address] [place] [address], [address], 08/07/2024 14:37:50 meloxicam 7.5 mg tablet 2023 024 [facility], [address] [place] [address], [address], 08/07/2024 14:37:55 famotidin e 20 mg tablet 2023 024 [facility], [address] [place] [address], [address], 08/07/2024 14:37:56 pantopraz ole 40 mg tablet,de layed release 2023 024 [facility], [address] [place] [address], 35[address], 08/07/2024 14:37:51 levothyro xine 25 mcg tablet 2023 024 [facility], [address] [place] [address], [address], 08/07/2024 14:37:55 Patient TargetsNo targets recorded. Patient Instructions Encounter Date Encounter Id Patient Instructions Last Modified By Organization Details Last Modified Time 10/29/2024 [id number] preventing osteoporosis: care instructions [id number] Not available 10/29/2024 14:18:25 functional assessment screening* Not available 10/29/2024 13:43:09 Reason for Referral Referring Physician: Sparkle Johnson, Family Medicine, Encounter Date: 04/23/2025 Results Created Date Observation Date Name Description Value Unit Range Abnormal Flag Note LastModifiedBy Organization Detail LastModifiedTime 07/30/20 24 07/31/2024 FE+TI BC+FE R iron bind.cap.(TI BC) 282 ug/dL 250-45 0 normal Not Available [facility]) [address] [place], [address], 07/31/2024 13:07:32 07/30/20 24 07/31/2024 FE+TI BC+FE R UIBC 249 ug/dL 118-36 9 normal Not Available [facility] ([facility]) [address] [place], [address], 07/31/2024 13:07:32 07/30/20 24 07/31/2024 FE+TI BC+FE R iron 33 ug/dL 27-139 normal Not Available [facility] ([facility]) [address] [place], [address], 07/31/2024 13:07:32 07/30/20 24 07/31/2024 FE+TI BC+FE R iron saturation 12 % 15-55 below low normal Not Available [facility] ([facility]) [address] [place], [address], 07/31/2024 13:07:32 07/30/20 24 07/31/2024 FE+TI BC+FE R ferritin 86 NG/mL 15-150 normal Not Available [facility] ([facility]) [address] [place], [address], 07/31/2024 13:07:32 07/30/20 24 07/31/2024 TSH+F REE T4 TSH 4.670 uIU/m L 0.450- 4.500 above high normal Not Available [facility] ([facility]) [address] [place], [address], 07/31/2024 13:07:33 07/30/20 24 07/31/2024 TSH+F REE T4 T4,free(dire ct) 0.84 NG/dL 0.82-1 .77 normal Not Available [facility] ([facility]) [address] [place], [address], 07/31/2024 13:07:33 07/30/20 24 07/31/2024 CBC WITH DIFFE RENTI AL/PL ATELE T WBC 5.7 x10e3 /uL 3.4-10 .8 normal Not Available [facility] ([facility]) [address] [place], [address], 07/31/2024 13:07:33 07/30/20 24 07/31/2024 CBC WITH DIFFE RENTI AL/PL ATELE T RBC 3.87 x10e6 /uL 3.77-5 .28 normal Not Available [facility] ([facility]) [address] [place], [address], 07/31/2024 13:07:33 07/30/20 24 07/31/2024 CBC WITH DIFFE RENTI AL/PL ATELE T hemoglobin 10.1 g/dL 11.1-1 5.9 below low normal Not Available [facility] ([facility]) [address] [place], [address], 07/31/2024 13:07:33 07/30/20 24 07/31/2024 CBC WITH DIFFE RENTI AL/PL ATELE T hematocrit 32.6 % 34.0-4 6.6 below low normal Not Available [facility] ([facility]) [address] [facility], [place], [address], 07/31/2024 13:07:33 07/30/20 24 07/31/2024 CBC WITH DIFFE RENTI AL/PL ATELE T MCV 84 fL 79-97 normal Not Available [facility] ([facility]) [address] [facility], [place], [address], 07/31/2024 13:07:33 07/30/20 24 07/31/2024 CBC WITH DIFFE RENTI AL/PL ATELE T MCH 26.1 pg 26.6-3 3.0 below low normal Not Available [facility] ([facility]) [address] [facility], [place], [address], 07/31/2024 13:07:33 07/30/20 24 07/31/2024 CBC WITH DIFFE RENTI AL/PL ATELE T MCHC 31.0 g/dL 31.5-3 5.7 below low normal Not Available [facility] ([facility]) [address] [place], [address], 07/31/2024 13:07:33 07/30/20 24 07/31/2024 CBC WITH DIFFE RENTI AL/PL ATELE T RDW 16.4 % 11.7-1 5.4 above high normal Not Available [facility] ([facility]) [address] [place], [address], 07/31/2024 13:07:33 07/30/20 24 07/31/2024 CBC WITH DIFFE RENTI AL/PL ATELE T platelets 147 x10e3 /uL 150-45 0 below low normal Not Available [facility] ([facility]) [address] [facility], [place], [address], 07/31/2024 13:07:33 07/30/20 24 07/31/2024 CBC WITH DIFFE RENTI AL/PL ATELE T neutrophils 68 % not estab. normal Not Available [facility] ([facility]) [address] [facility], [place], [address], 07/31/2024 13:07:33 07/30/20 24 07/31/2024 CBC WITH DIFFE RENTI AL/PL ATELE T lymphs 19 % not estab. normal Not Available [facility] ([facility]) [address] [facility], [place], [address], 07/31/2024 13:07:33 07/30/20 24 07/31/2024 CBC WITH DIFFE RENTI AL/PL ATELE T monocytes 6 % not estab. normal Not Available [facility] ([facility]) [address] [facility], [place], [address], 07/31/2024 13:07:33 07/30/20 24 07/31/2024 CBC WITH DIFFE RENTI AL/PL ATELE T eos 6 % not estab. normal Not Available [facility] ([facility]) [address] [facility], [place], [address], 07/31/2024 13:07:33 07/30/20 24 07/31/2024 CBC WITH DIFFE RENTI AL/PL ATELE T basos 1 % not estab. normal Not Available [facility] ([facility]) [address] [facility], [place], [address], 07/31/2024 13:07:33 07/30/20 24 07/31/2024 CBC WITH DIFFE RENTI AL/PL ATELE T immature cells BU[place]ET [place]URNER Not Available [facility]) [address] [facility], [place], [address], 07/31/2024 13:07:33 07/30/20 24 07/31/2024 CBC WITH DIFFE RENTI AL/PL ATELE T neutrophils (absolute) 3.9 x10e3 /uL 1.4-7. 0 normal Not Available [facility] ([facility]) [address] [place], [address], 07/31/2024 13:07:33 07/30/20 24 07/31/2024 CBC WITH DIFFE RENTI AL/PL ATELE T lymphs (absolute) 1.1 x10e3 /uL 0.7-3. 1 normal Not Available [facility] ([facility]) [address] [place], [address], 07/31/2024 13:07:33 07/30/20 24 07/31/2024 CBC WITH DIFFE RENTI AL/PL ATELE T monocytes(ab solute) 0.3 x10e3 /uL 0.1-0. 9 normal Not Available [facility] ([facility]) [address] [facility], [place], [address], 07/31/2024 13:07:33 07/30/20 24 07/31/2024 CBC WITH DIFFE RENTI AL/PL ATELE T eos (absolute) 0.4 x10e3 /uL 0.0-0. 4 normal Not Available [facility] ([facility]) [address] [place], [address], 07/31/2024 13:07:33 07/30/20 24 07/31/2024 CBC WITH DIFFE RENTI AL/PL ATELE T baso (absolute) 0.0 x10e3 /uL 0.0-0. 2 normal Not Available [facility] ([facility]) [address] [place], [address], 07/31/2024 13:07:33 07/30/20 24 07/31/2024 CBC WITH DIFFE RENTI AL/PL ATELE T immature granulocytes 0 % not estab. Not Available [facility] ([facility]) [address] [place], [address], 07/31/2024 13:07:33 07/30/20 24 07/31/2024 CBC WITH DIFFE RENTI AL/PL ATELE T immature grans (abs) 0.0 x10e3 /uL 0.0-0. 1 Not Available [facility] ([facility]) [address] [facility], [place], [address], 07/31/2024 13:07:33 07/30/20 24 07/31/2024 CBC WITH DIFFE RENTI AL/PL ATELE T NRBC BUCKET TURNER Not Available [facility] ([facility]) [address] [facility], [place], [address], 07/31/2024 13:07:33 07/30/20 24 07/31/2024 CBC WITH DIFFE RENTI AL/PL ATELE T hematology comments: BUCKET TURNER Not Available [facility]) [address] [facility], [place], [address], 07/31/2024 13:07:33 07/30/20 24 07/31/2024 COMP. METAB OLIC PANEL (14) glucose 95 mg/dL 70-99 normal Not Available [facility] ([facility]) [address] [facility], [place], [address], 07/31/2024 13:07:34 07/30/20 24 07/31/2024 COMP. METAB OLIC PANEL (14) BUN 54 mg/dL 8-27 above high normal Not Available [facility] ([facility]) [address] [facility], [place], [address], 07/31/2024 13:07:34 07/30/20 24 07/31/2024 COMP. METAB OLIC PANEL (14) creatinine 1.65 mg/dL 0.57-1 .00 above high normal Not Available [facility] ([facility]) [address] [facility], [place], [address], 07/31/2024 13:07:34 07/30/20 24 07/31/2024 COMP. METAB OLIC PANEL (14) eGFR 31 mL/mi n/1.7 3 >59 below low normal Not Available [facility] ([facility]) [address] [facility], [place], [address], 07/31/2024 13:07:34 07/30/20 24 07/31/2024 COMP. METAB OLIC PANEL (14) BUN/creatini ne ratio 33 12-28 above high normal Not Available [facility] ([facility]) [address] [facility], [place], [address], 07/31/2024 13:07:34 07/30/20 24 07/31/2024 COMP. METAB OLIC PANEL (14) sodium 141 mmol/ L 134-14 4 normal Not Available [facility] ([facility]) [address] [facility], [place], [address], 07/31/2024 13:07:34 07/30/20 24 07/31/2024 COMP. METAB OLIC PANEL (14) potassium 6.0 mmol/ L 3.5-5. 2 above high normal Not Available [facility] ([facility]) [address] [facility], [place], [address], 07/31/2024 13:07:34 07/30/20 24 07/31/2024 COMP. METAB OLIC PANEL (14) chloride 110 mmol/ L 96-106 above high normal Not Available [facility] ([facility]) [address] [place], [address], 07/31/2024 13:07:34 07/30/20 24 07/31/2024 COMP. METAB OLIC PANEL (14) carbon dioxide, total 19 mmol/ L 20-29 below low normal Not Available [facility] ([facility]) [address] [place], [address], 07/31/2024 13:07:34 07/30/20 24 07/31/2024 COMP. METAB OLIC PANEL (14) calcium 9.0 mg/dL 8.7-10 .3 normal Not Available [facility] ([facility]) [address] [facility], [place], [address], 07/31/2024 13:07:34 07/30/20 24 07/31/2024 COMP. METAB OLIC PANEL (14) protein, total 7.0 g/dL 6.0-8. 5 normal Not Available [facility] ([facility]) [address] [facility], [place], [address], 07/31/2024 13:07:34 07/30/20 24 07/31/2024 COMP. METAB OLIC PANEL (14) albumin 4.2 g/dL 3.8-4. 8 normal Not Available [facility] ([facility]) [address] [facility], [place], [address], 07/31/2024 13:07:34 07/30/20 24 07/31/2024 COMP. METAB OLIC PANEL (14) globulin, total 2.8 g/dL 1.5-4. 5 Not Available [facility] ([facility]) [address] [facility], [place], [address], 07/31/2024 13:07:34 07/30/20 24 07/31/2024 COMP. METAB OLIC PANEL (14) bilirubin, total 0.2 mg/dL 0.0-1. 2 normal Not Available [facility] ([facility]) [address] [facility], [place], [address], 07/31/2024 13:07:34 07/30/20 24 07/31/2024 COMP. METAB OLIC PANEL (14) alkaline phosphatase 80 IU/L 44-121 normal Not Available [facility]) [address] [facility], [place], [address], 07/31/2024 13:07:34 07/30/20 24 07/31/2024 COMP. METAB OLIC PANEL (14) AST (SGOT) 13 IU/L 0-40 normal Not Available [facility] ([facility]) [address] [facility] [place], [address], 07/31/2024 13:07:34 07/30/20 24 07/31/2024 COMP. METAB OLIC PANEL (14) ALT (SGPT) 6 IU/L 0-32 normal Not Available [facility] ([facility]) [address] [facility] [place], [address], 07/31/2024 13:07:34 07/30/20 24 07/31/2024 LIPID PANEL cholesterol, total 145 mg/dL 100-19 9 normal Not Available [facility] ([facility]) [address] [place], [address], 07/31/2024 13:07:34 07/30/20 24 07/31/2024 LIPID PANEL triglyceride s 92 mg/dL 0-149 normal Not Available [facility] ([facility]) [address] [place], [address], 07/31/2024 13:07:34 07/30/20 24 07/31/2024 LIPID PANEL HDL cholesterol 39 mg/dL >39 below low normal Not Available [facility] ([facility]) [address] [place], [address], 07/31/2024 13:07:34 07/30/20 24 07/31/2024 LIPID PANEL VLDL cholesterol dee 17 mg/dL 5-40 Not Available [facility] ([facility]) [address] [place], [address], 07/31/2024 13:07:34 07/30/20 24 07/31/2024 LIPID PANEL LDL chol calc (nih) 89 mg/dL 0-99 Not Available [facility] ([facility]) [address] [place], [address], 07/31/2024 13:07:34 07/30/20 24 07/31/2024 LIPID PANEL LDL calc comment: BUCKET TURNER Not Available [facility] ([facility]) [address] [facility], [place], [address], 07/31/2024 13:07:34 07/30/20 24 07/31/2024 HEMOG LOBIN A1C hemoglobin A1C 5.8 % 4.8-5. 6 above high normal Predi abete s: 5.7 - 6.4 Diabe leena: >6.4 Glyce suzanne contr ol for adult s with diabe leena: <7.0 Not Available [facility] ([facility]) [address] [facility], [place], [address], 07/31/2024 13:07:34 07/30/20 24 07/31/2024 B-TYP E NATRI URETI C PEPTI DE B-type natriuretic peptide 79.9 pg/mL 0.0-10 0.0 Sieme ns [facility] XP metho dolog y Not Available [facility] ([facility]) [address] [place], [address], 07/31/2024 13:07:35 01/23/20 25 01/23/2025 TSH+F REE T4 TSH 1.470 uIU/m L 0.450- 4.500 normal Not Available [facility] ([facility]) [address] [place], [address], 01/23/2025 08:12:18 01/23/20 25 01/23/2025 TSH+F REE T4 T4,free(dire ct) 1.02 NG/dL 0.82-1 .77 normal Not Available [facility] ([facility]) [address] [place], [address], 01/23/2025 08:12:18 01/23/20 25 01/23/2025 CBC WITH DIFFE RENTI AL/PL ATELE T WBC 8.2 x10e3 /uL 3.4-10 .8 normal Not Available [facility] ([facility]) [address] [place], [address], 01/23/2025 08:12:19 01/23/2001/23/2025 CBC WITH DIFFE RENTI AL/PL ATELE T RBC 3.19 x10e6 /uL 3.77-5 .28 below low normal Not Available [facility] ([facility]) [address] [place], [address], 01/23/2025 08:12:19 01/23/2001/23/2025 CBC WITH DIFFE RENTI AL/PL ATELE T hemoglobin 8.5 g/dL 11.1-1 5.9 below low normal Not Available [facility] ([facility]) [address] [place], [address], 01/23/2025 08:12:19 01/23/2001/23/2025 CBC WITH DIFFE RENTI AL/PL ATELE T hematocrit 28.2 % 34.0-4 6.6 below low normal Not Available [facility] ([facility]) [address] [place], [address], 01/23/2025 08:12:19 01/23/2001/23/2025 CBC WITH DIFFE RENTI AL/PL ATELE T MCV 88 fL 79-97 normal Not Available [facility] ([facility]) [address] [place], [address], 01/23/2025 08:12:19 01/23/2001/23/2025 CBC WITH DIFFE RENTI AL/PL ATELE T MCH 26.6 pg 26.6-3 3.0 normal Not Available [facility] ([facility]) [address] [place], [address], 01/23/2025 08:12:19 01/23/2001/23/2025 CBC WITH DIFFE RENTI AL/PL ATELE T MCHC 30.1 g/dL 31.5-3 5.7 below low normal Not Available [facility] ([facility]) [address] [facility], [place], [address], 01/23/2025 08:12:19 01/23/2001/23/2025 CBC WITH DIFFE RENTI AL/PL ATELE T RDW 14.8 % 11.7-1 5.4 Not Available [facility] ([facility]) [address] [facility], [place], [address], 01/23/2025 08:12:19 01/23/2001/23/2025 CBC WITH DIFFE RENTI AL/PL ATELE T platelets 168 x10e3 /uL 150-45 0 normal Not Available [facility] ([facility]) [address] [facility], [place], [address], 01/23/2025 08:12:19 01/23/2001/23/2025 CBC WITH DIFFE RENTI AL/PL ATELE T neutrophils 78 % not estab. normal Not Available [facility] ([facility]) [address] [place], [address], 01/23/2025 08:12:19 01/23/2001/23/2025 CBC WITH DIFFE RENTI AL/PL ATELE T lymphs 13 % not estab. normal Not Available [facility] ([facility]) [address] [place], [address], 01/23/2025 08:12:19 01/23/2001/23/2025 CBC WITH DIFFE RENTI AL/PL ATELE T monocytes 6 % not estab. normal Not Available [facility] ([facility]) [address] [place], [address], 01/23/2025 08:12:19 01/23/2001/23/2025 CBC WITH DIFFE RENTI AL/PL ATELE T eos 3 % not estab. normal Not Available [facility] ([facility]) [address] [place], [address], 01/23/2025 08:12:19 01/23/2001/23/2025 CBC WITH DIFFE RENTI AL/PL ATELE T basos 0 % not estab. normal Not Available [facility] ([facility]) [address] [facility], [place], [address], 01/23/2025 08:12:19 01/23/2001/23/2025 CBC WITH DIFFE RENTI AL/PL ATELE T immature cells BUCKET TURNER Not Available [facility] ([facility]) [address] [facility], [place], [address], 01/23/2025 08:12:19 01/23/2001/23/2025 CBC WITH DIFFE RENTI AL/PL ATELE T neutrophils (absolute) 6.3 x10e3 /uL 1.4-7. 0 normal Not Available [facility] ([facility]) [address] [place], [address], 01/23/2025 08:12:19 01/23/2001/23/2025 CBC WITH DIFFE RENTI AL/PL ATELE T lymphs (absolute) 1.1 x10e3 /uL 0.7-3. 1 normal Not Available [facility] ([facility]) [address] [place], [address], 01/23/2025 08:12:19 01/23/2001/23/2025 CBC WITH DIFFE RENTI AL/PL ATELE T monocytes(ab solute) 0.5 x10e3 /uL 0.1-0. 9 normal Not Available [facility] ([facility]) [address] [place], [address], 01/23/2025 08:12:19 01/23/20 25 01/23/2025 CBC WITH DIFFE RENTI AL/PL ATELE T eos (absolute) 0.2 x10e3 /uL 0.0-0. 4 normal Not Available [facility] ([facility]) [address] [facility], [place], [address], 01/23/2025 08:12:19 01/23/2001/23/2025 CBC WITH DIFFE RENTI AL/PL ATELE T baso (absolute) 0.0 x10e3 /uL 0.0-0. 2 normal Not Available [facility] ([facility]) [address] [facility], [place], [address], 01/23/2025 08:12:19 01/23/2001/23/2025 CBC WITH DIFFE RENTI AL/PL ATELE T immature granulocytes 0 % not estab. Not Available [facility] ([facility]) [address] [facility], [place], [address], 01/23/2025 08:12:19 01/23/2001/23/2025 CBC WITH DIFFE RENTI AL/PL ATELE T immature grans (abs) 0.0 x10e3 /uL 0.0-0. 1 Not Available [facility] ([facility]) [address] [facility], [place], [address], 01/23/2025 08:12:19 01/23/2001/23/2025 CBC WITH DIFFE RENTI AL/PL ATELE T NRBC BUCKET TURNER Not Available [facility] ([facility]) [address] [facility], [place], [address], 01/23/2025 08:12:19 01/23/2001/23/2025 CBC WITH DIFFE RENTI AL/PL ATELE T hematology comments: BUCKET TURNER Not Available [facility] ([facility]) [address] [place], [address], 01/23/2025 08:12:19 01/23/2001/23/2025 COMP. METAB OLIC PANEL (14) glucose 93 mg/dL 70-99 normal Not Available [facility] ([facility]) [address] [place], [address], 01/23/2025 08:12:19 01/23/20 25 01/23/2025 COMP. METAB OLIC PANEL (14) BUN 69 mg/dL 8-27 above high normal Not Available [facility] ([facility]) [address] [place], [address], 01/23/2025 08:12:19 01/23/20 25 01/23/2025 COMP. METAB OLIC PANEL (14) creatinine 3.89 mg/dL 0.57-1 .00 above high normal Not Available [facility] ([facility]) [address] [place], [address], 01/23/2025 08:12:19 01/23/20 25 01/23/2025 COMP. METAB OLIC PANEL (14) eGFR 11 mL/mi n/1.7 3 >59 below low normal Not Available [facility] ([facility]) [address] [place], [address], 01/23/2025 08:12:19 01/23/20 25 01/23/2025 COMP. METAB OLIC PANEL (14) BUN/creatini ne ratio 18 12-28 normal Not Available [facility] ([facility]) [address] [place], [address], 01/23/2025 08:12:19 01/23/20 25 01/23/2025 COMP. METAB OLIC PANEL (14) sodium 142 mmol/ L 134-14 4 normal Not Available [facility] ([facility]) [address] [place], [address], 01/23/2025 08:12:19 01/23/20 25 01/23/2025 COMP. METAB OLIC PANEL (14) potassium 4.6 mmol/ L 3.5-5. 2 normal Not Available [facility] ([facility]) [address] [place], [address], 01/23/2025 08:12:19 01/23/20 25 01/23/2025 COMP. METAB OLIC PANEL (14) chloride 101 mmol/ L 96-106 normal Not Available [facility] ([facility]) [address] [place], [address], 01/23/2025 08:12:19 01/23/20 25 01/23/2025 COMP. METAB OLIC PANEL (14) carbon dioxide, total 22 mmol/ L 20-29 normal Not Available [facility] ([facility]) [address] [place], [address], 01/23/2025 08:12:19 01/23/20 25 01/23/2025 COMP. METAB OLIC PANEL (14) calcium 8.7 mg/dL 8.7-10 .3 normal Not Available [facility] ([facility]) [address] [place], [address], 01/23/2025 08:12:19 01/23/20 25 01/23/2025 COMP. METAB OLIC PANEL (14) protein, total 6.7 g/dL 6.0-8. 5 normal Not Available [facility] ([facility]) [address] [place], [address], 01/23/2025 08:12:19 01/23/20 25 01/23/2025 COMP. METAB OLIC PANEL (14) albumin 3.9 g/dL 3.8-4. 8 normal Not Available [facility] ([facility]) [address] [place], [address], 01/23/2025 08:12:19 01/23/20 25 01/23/2025 COMP. METAB OLIC PANEL (14) globulin, total 2.8 g/dL 1.5-4. 5 Not Available [facility] ([facility]) [address] [place], [address], 01/23/2025 08:12:19 01/23/20 25 01/23/2025 COMP. METAB OLIC PANEL (14) bilirubin, total 0.3 mg/dL 0.0-1. 2 normal Not Available [facility] ([facility]) [address] [place], [address], 01/23/2025 08:12:19 01/23/20 25 01/23/2025 COMP. METAB OLIC PANEL (14) alkaline phosphatase 80 IU/L 44-121 normal Not Available [facility] ([facility]) [address] [place], [address], 01/23/2025 08:12:19 01/23/20 25 01/23/2025 COMP. METAB OLIC PANEL (14) AST (SGOT) 8 IU/L 0-40 normal Not Available [facility] ([facility]) [address] [place], [address], 01/23/2025 08:12:19 01/23/20 25 01/23/2025 COMP. METAB OLIC PANEL (14) ALT (SGPT) 5 IU/L 0-32 normal Not Available [facility] ([facility]) [address] [place], [address], 01/23/2025 08:12:19 01/23/20 25 01/23/2025 LIPID PANEL cholesterol, total 96 mg/dL 100-19 9 below low normal Not Available [facility] ([facility]) [address] [place], [address], 01/23/2025 08:12:20 01/23/20 25 01/23/2025 LIPID PANEL triglyceride s 90 mg/dL 0-149 normal Not Available [facility] ([facility]) [address] [place], [address], 01/23/2025 08:12:20 01/23/20 25 01/23/2025 LIPID PANEL HDL cholesterol 28 mg/dL >39 below low normal Not Available [facility] ([facility]) [address] [place], [address], 01/23/2025 08:12:20 01/23/20 25 01/23/2025 LIPID PANEL VLDL cholesterol dee 18 mg/dL 5-40 Not Available [facility] ([facility]) [address] [facility], [place], [address], 01/23/2025 08:12:20 01/23/20 25 01/23/2025 LIPID PANEL LDL chol calc ([facility]) 50 mg/dL 0-99 Not Available [facility] ([facility]) [address] [facility], [place], [address], 01/23/2025 08:12:20 01/23/20 25 01/23/2025 LIPID PANEL LDL calc comment: BUCKET TURNER Not Available [facility] ([facility]) [address] [facility], [place], [address], 01/23/2025 08:12:20 01/23/20 25 01/23/2025 VITAM IN B12 AND FOLAT E vitamin B12 367 pg/mL 232-12 45 normal Not Available [facility] ([facility]) [address] [facility], [place], [address], 01/23/2025 08:12:20 01/23/20 25 01/23/2025 VITAM IN B12 AND FOLAT E folate (folic acid), serum 4.5 NG/mL >3.0 normal A serum folat e vicente ntrat ion of less than 3.1 ng/mL is consi dered to repre sent clini dee defic iency . Not Available [facility] ([facility]) [address] [facility], [place], [address], 01/23/2025 08:12:20 01/23/20 25 01/23/2025 HEMOG LOBIN A1C hemoglobin A1C 5.6 % 4.8-5. 6 normal Predi abete s: 5.7 - 6.4 Diabe leena: >6.4 Glyce suzanne contr ol for adult s with diabe leena: <7.0 Not Available [facility] ([facility]) [address] [facility], [place], [address], 01/23/2025 08:12:21 01/23/20 25 01/23/2025 VITAM IN [...] Endoc rine Socie ty went on to furth er defin e vitam in D insuf ficie ncy as a level betwe en 21 and 29 ng/mL (2). 1. IOM (Inst itute of Medic ine). 2010. Christiano ry refer ence primitivo es for calci um and D. Melanie vargas [place]: [facility] . 2. Cristiano amador MF, Elyssa poe [place], Veronica off-F errar i BOYD, et al. Evalu ation , treat ment, and preve ntion of vitam in D defic iency : an Endoc rine Socie ty clini dee pract ice guide line. JCEM. 2010; 96(7) :1911 -30. Not Available [facility] ([facility]) [address] [facility], [place], [address], 01/23/2025 08:12:21 07/03/20 24 07/03/2024 XR, chest No observ ation record ed. [email or web address], [place], [address], 10/13/2024 15:26:47 07/04/20 24 07/03/2024 starr sosa am No observ ation record ed. [email or web address], [place], [address], 10/13/2024 15:27:04 07/06/20 24 07/03/2024 US, doppl er echoc ardio gram No observ ation record ed. [facility] [address], [place], [address], 10/13/2024 15:28:25 10/30/19 XR, foot, 3 or more view No observ ation record ed. [email or web address] [address], [place], [address], 11/02/2024 09:44:43 12/21/19 25 12/17/2024 stres s echoc ardio gram No observ ation record ed. [address], [place], [place], [address], 12/23/2024 09:33:30 12/21/19 25 12/17/2024 stres s echoc ardio gram No observ ation record ed. [email or web address] [address], [place], [address], 12/23/2024 09:33:12 12/25/19 25 12/21/2024 stres s echoc ardio gram No observ ation record ed. [email or web address] [facility] [address], [place], [address], 12/25/2024 09:40:14 01/14/20 25 01/13/2025 XR, chest No observ ation record ed. [email or web address] [address], [place], [address], 01/15/2025 10:15:17 01/15/20 25 01/13/2025 starr sosa am, pratik ne ECG, 12 leads min No observ ation record ed. [address], [place], [address], 01/15/2025 10:15:33 01/15/20 25 01/13/2025 stres s echoc ardio gram No observ ation record ed. [email or web address] [facility] [address], [place], [address], 01/15/2025 10:15:45 01/16/20 25 01/14/2025 stres s echoc ardio gram No observ ation record ed. [email or web address] [facility] [address], [place], [place], [address], 01/15/2025 10:16:14 01/16/20 25 01/13/2025 elect rocar diogr am, routi ne ECG, 12 leads min No observ ation record ed. [email or web address] [facility] [address], [place], [place], [address], 01/18/2025 10:44:21 01/19/20 25 01/15/2025 elect rocar diogr am, routi ne ECG, 12 leads min No observ ation record ed. [email or web address] [address], [place], [address], 01/18/2025 10:41:44 03/05/20 25 03/05/2025 US, renal No observ ation record ed. [facility] (Radiology) [address] , [place], [address], 03/16/2025 12:11:52 04/07/20 25 04/07/2025 XR, chest , 2 view No observ ation record ed. [email or web address] [facility] [address], [place], [address], 04/09/2025 11:52:00 04/08/20 25 04/07/2025 elect rocar diogr am, routi ne ECG, 12 leads min No observ ation record ed. [email or web address] [facility] [address], [place], [address], 04/09/2025 13:11:16 04/08/2004/08/2025 US, doppl er echoc ardio gram No observ ation record ed. [email or web address] [facility] [address], [place], [place], [address], 04/09/2025 13:10:28 04/26/20 XR, knee, 3 view No observ ation record ed. [address], [place], [address], 05/03/2025 13:30:05 05/06/2005/05/2025 XR, chest No observ ation record ed. [address], [place], [place], [address], 05/06/2025 17:38:38 06/07/2006/07/2025 XR, chest No observ ation record ed. [address], [place], [place], [address], 06/15/2025 10:17:22 06/08/2006/07/2025 elect christine sosa am No observ ation record ed. [address], [place], [place], [address], 06/15/2025 10:17:44 06/08/2006/08/2025 imagi ng/di agnos tic resul t No observ ation record ed. [address], [place], [place], [address], 06/15/2025 10:18:41 06/08/2006/08/2025 CT, angio gram, chest , w/ contr ast No observ ation record ed. [address], [place], [address], 06/15/2025 10:19:06 Result Notes None recorded. Problems Name Problem SNOMED Code Status Onset Date Resolution Date Notes Provider Name and Address Organization Details Recorded Time Generalized anxiety disorder 06764516 Active 2023 Rey Wiseman [employer], [employer] 5 11:02:08 Allergic rhinitis 28776059 Active 2023 Rey Smileyy null, [employer] 5 11:02:31 Gastroesophage al reflux disease without esophagitis 366746451 Active 2023 Rey [place] null, [employer] 5 11:02:05 Edema of lower extremity 967891993 Active 2023 Rey [place] null, [employer] 5 11:01:59 Overactive urinary bladder 149222441 Active 2023 Rey Smileyy null, [employer] 5 11:02:16 Chronic obstructive pulmonary disease 36891266 Active 2023 Rey [place] null, [employer] 5 11:01:51 Hypothyroidism 18690509 Active 2023 Rey [place] null, [employer] 5 11:02:10 Pain of multiple joints 58236530 Active 2023 Rey [place] null, [employer] 5 11:02:20 Moderate recurrent major depression 40663727 Active 2023 Rey [place] null, [employer] 5 11:02:13 Essential hypertension 54090907 Active 2023 Rey [place] null, [employer] 5 11:02:02 Ulcer of lower extremity 46986347 Active 2023 Rey [place] null, [employer] 5 11:02:26 Dyspnea 241860150 Active 2023 Rey gandara [employer] 5 11:01:54 Paroxysmal atrial fibrillation 524031395 Active 2024 W/ RVR Rey gandara, [employer] 5 11:03:05 Chronic kidney disease stage 3 916643767 Active 2024 [employer] 5 11:03:28 Problem Notes None recorded. Procedures Surgical History Date Name Laterality Status Provider Name and Address Organization Details Recorded Time procedure on hip joint completed Rey Wiseman [employer] 12/20/2023 14:59:22 Imaging Results None recorded. Procedure Notes None recorded. Medical Equipment None Reported. Allergies Allergen ID Allergen Name Allergen Category Reaction Reaction Severity Criticality Documentation Date Start Date Code Code System Note Provider Name and Address Organization Details Recorded Time 61941 cephalexi n medicatio n Not available Not available Not available 12/26/2023 2231 RxNorm Rey gandara, [employer] 4 15:56:24 72389 butalbita l medicatio n Not available Not available Not available 12/26/2023 64965 RxNorm Rey gandara, [employer] 4 15:56:35 04354 propoxyph will medicatio n Not available Not available Not available 12/26/2023 8785 RxNorm Rey gandara, [employer] 4 15:56:57 73231 tetracycl ine medicatio n Not available Not available Not available 12/26/2023 95771 RxNorm Rey gandara, [employer] 4 15:57:08 93905 Sudha medicatio n Not available Not available Not available 12/26/2023 73327 6 RxNorm Rey gandara, [employer] 4 15:57:24 29857 Claritin medicatio n Not available Not available Not available 12/26/2023 68245 6 RxNorm Rey gandara, [employer] 4 15:57:36 02385 Macrobid medicatio n Not available Not available Not available 12/26/2023 37978 1 RxNorm Rey gandara, [employer] 15:57:47 36083 doxycycli ne Not available Not available Not available Not available 12/26/2023 3640 RxNorm Rey Wiseman [employer], [employer] 15:59:26 40192 pseudoeph edrine Not available Not available Not available Not available 12/26/2023 8896 RxNorm Rey Wiseman [employer], [employer] 15:59:38 17310 guaifenes in medicatio n Not available Not available Not available 12/26/2023 5032 RxNorm Rey gandara, [employer] 15:59:49 86849 hydrocodo ne Not available Not available Not available Not available 12/26/2023 5489 RxNorm Rey gandara, [employer] 4 16:00:09 98107 Product containin g penicilli n (product) medicatio n Not available Not available Not available 12/26/2023 13237 8001 SNOMED Rey gandara, [employer] 4 16:00:16 00928 Substance with sulfonami de structure and antibacte rial mechanism of action (substanc e) medicatio n Not available Not available Not available 12/26/2023 23268 8003 SNOMED Rey gandara, [employer] 4 16:00:27 34300 iodine medicatio n Not available Not available Not available 12/26/2023 5933 RxNorm Rey Wisemna [employer], [employer] 4 16:00:35 18000 Seldane medicatio n Not available Not available Not available 12/26/2023 57414 0 RxNorm Rey gandara, [employer] 16:00:44 07919 Midrin medicatio n Not available Not available Not available 12/26/2023 02424 RxNorm Rey gandara, [employer] 16:00:51 48443 fluticaso ne Not available Not available Not available Not available 12/26/2023 80300 RxNorm makes arthr itis worse Rey Wiseman [employer], [employer] 16:01:11 03514 codeine medicatio n Not available Not available Not available 12/26/2023 2670 RxNorm nervo us Rey gandara, [employer] 16:01:29 24481 mometason e furoate medicatio n Not available Not available Not available 12/26/2023 96412 RxNorm cough and sore throa t Rey Wiseman [employer], [employer] 4 16:02:04 19013 clindamyc in Not available Not available Not available Not available 12/26/2023 2582 RxNorm GI Rey gandara, [employer] 16:02:45 65137 erythromy quan medicatio n Not available Not available Not available 12/26/2023 4053 RxNorm rash Rey Wiseman [employer], [employer] 4 16:02:58 55329 Singulair medicatio n Not available Not available Not available 12/26/2023 51166 9 RxNorm red face and numbn ess Rey gandara, [employer] 4 16:03:16 69272 Motrin medicatio n Not available Not available Not available 12/26/2023 81184 8 RxNorm GI Rey gandara, [employer] 4 16:03:32 83844 Naprosyn medicatio n Not available Not available Not available 12/26/2023 2 RxNorm GI Rey gandara, [employer] 4 16:03:43 99727 Relafen medicatio n Not available Not available Not available 12/26/202304032 4 RxNorm GI Rey gandara, [employer] 4 16:04:04 39662 tramadol medicatio n Not available Not available Not available 12/26/2023 04108 RxNorm dizzi ness Rey gandara, [employer] 4 16:04:17 38263 imipramin e Not available Not available Not available Not available 12/26/2023 5691 RxNorm urina ry reten tion Rey gandara, [employer] 4 16:22:41 45058 lisinopri l medicatio n Not available Not available Not available 12/26/2023 20242 RxNorm cough Rey gandara, [employer] 4 16:22:51 90994 Paxil medicatio n Not available Not available Not available 12/26/2023 75500 8 RxNorm nervo usnes s Rey gandara, [employer] 4 16:23:06 22019 gatifloxa quan medicatio n Not available Not available Not available 12/26/2023 53172 6 RxNorm GI Rey gandara, [employer] 4 16:23:38 83030 fluticaso ne / salmetero l medicatio n Not available Not available Not available 12/26/2023 08001 5 RxNorm nose pain Rey gandara, [employer] 4 16:26:38 59467 Reglan medicatio n Not available Not available Not available 12/26/2023 9230 RxNorm const ipati on Rey gandara, [employer] 17:29:23 88670 clarithro mycin medicatio n Not available Not available Not available 12/26/2023 86051 RxNorm nervo usnes s Rey gandara, [employer] 17:29:44 61369 Zithromax medicatio n Not available Not available Not available 12/26/2023 44910 4 RxNorm Rey gandara, [employer] 17:29:55 56042 Mucinex medicatio n Not available Not available Not available 12/26/2023 26731 7 RxNorm Rey gandara, [employer] 17:30:01 56464 gabapenti n medicatio n Not available Not available Not available 12/26/2023 10525 RxNorm swell ing of legs Rey gandara, [employer] 17:30:19 07653 baclofen medicatio n Not available Not available Not available 12/26/2023 1292 RxNorm unabl e to contr ol bladd er Rey gandara, [employer] 4 17:30:45 91054 allopurin ol medicatio n Not available Not available Not available 12/26/2023 519 RxNorm urina ry incon t Rey gandara, [employer] 17:31:45 89686 Colcrys medicatio n Not available Not available Not available 12/26/2023 09929 8 RxNorm Rey gandara, [employer] 17:31:53 90465 Uloric medicatio n Not available Not available Not available 12/26/2023 64228 6 RxNorm Rey gandara, [employer] 4 17:31:59 32601 probeneci d medicatio n Not available Not available Not available 12/26/2023 8698 RxNorm Rey Diorankit gandara, [employer] 4 17:32:07 72574 azithromy quan medicatio n other Not available low 06/25/20252020 82201 RxNorm Not Available [employer] - [employer] - prod 5 11:38:44 95894 colchicin e medicatio n diarrhea Not available low 06/25/20252020 2683 RxNorm Not Available [employer] - [employer] - prod 5 11:38:44 35074 fexofenad ine medicatio n other Not available low 06/25/20252020 77983 RxNorm Not Available [employer] - [employer] - prod 5 11:38:[address] medicatio n other Not available high 06/25/20252020 51355 RxNorm face red and numb Not Available [employer] - [employer] - prod 5 11:38:44 23362 ibuprofen medicatio n Not available Not available low 06/25/20252020 5640 RxNorm unrec ogniz ed react ion (text : GI Intol eranc e, code: [id number]) (from exter nal sourc e) Not Available [employer] - [employer] - prod 5 11:38:44 09953 naproxen medicatio n Not available Not available low 06/25/20252020 7258 RxNorm unrec ogniz ed react ion (text : GI Intol eranc e, code: 19974 4005) (from exter nal sourc e) Not Available [employer] - [employer] - prod 5 11:38:44 78887 paroxetin e Not available anxiety Not available low 06/25/20252020 34985 RxNorm Not Available [employer] - [employer] - prod 5 11:38:44 31947 prednison e medicatio n other Not available low 06/25/20252020 8640 RxNorm Not Available [employer] - [employer] - prod 5 11:38:44 43899 metoclopr amide Not available other Not available low 06/25/20252020 6915 RxNorm Const ipati on Not Available [employer] - [employer] - prod 5 11:38:44 94441 nabumeton e medicatio n Not available Not available low 06/25/20252020 85070 RxNorm unrec ogniz ed react ion (text : GI Intol eranc e, code: 96759 4005) (from exter [facility]) Not Available [employer] - [employer] - prod 5 11:38:44 84367 febuxosta t medicatio n other Not available low 06/25/20252020 09055 RxNorm Weakn ess Not Available [employer] - [employer] - prod 5 11:38:44 53712 fluticaso ne / salmetero l medicatio n Not available Not available Not available 06/25/2025 24657 5 RxNorm Not Available [employer] - [employer] - prod 5 11:39:13 69759 acetamino phen / hydrocodo ne medicatio n Not available Not available Not available 06/25/2025 51126 2 RxNorm Not Available [employer] - [employer] - prod 5 11:39:13 47232 nitrofura ntoin, macrocrys tals / nitrofura ntoin, monohydra te medicatio n Not available Not available Not available 06/25/2025 95350 2 RxNorm Not Available [employer] - External [...] Recorded Body height Heart rate Oxygen saturation Pain severity - 0-10 verbal numeric rating [Score] - Reported Systolic And Diastolic Provider Name and Address Organization Details Last Updated DateTime 10/29/2024 152.4 cm 81 /min 91 % 3 112/69 mm[Hg] Rey Wiseman [place] - [employer] 13:10:51 Date Recorded Body height Heart rate Oxygen saturation Systolic And Diastolic Provider Name and Address Organization Details Last Updated DateTime 01/22/2025 152.4 cm 62 /min 91 % 111/67 mm[Hg] Rey Wiseman [employer] 01/22/2025 11:23:44 Date Recorded Body height Heart rate Oxygen saturation Systolic And Diastolic Provider Name and Address Organization Details Last Updated DateTime 03/09/2025 152.4 cm 54 /min 92 % 103/64 mm[Hg] Rey Wiseman [employer] 03/09/2025 11:18:45 Date Recorded Body height Provider Name an d Address Organization Details Last Updated DateTime 04/23/2025 152.4 cm Rey Wiseman [employer] 04/23/2025 14:38:27 Date Recorded Body mass index (BMI) Body weight Heart rate Oxygen saturation Systolic And Diastolic Provider Name and Address Organization Details Last Updated DateTime 04/23/2025 32.4 kg/m2 23657.33 g 71 /min 86 % 115/56 mm[Hg] Katie Cruz [employer] 14:46:43 Date Recorded Body height Heart rate Oxygen saturation Systolic And Diastolic Provider Name and Address Organization Details Last Updated DateTime 07/30/2024 152.4 cm 61 /min 97 % 108/76 mm[Hg] Rey Wiseman [employer] 07/30/2024 11:46:01 Social History Question Answer Notes LastModified by Organizat ion Details LastModified Time Tobacco Smoking Status Never Smoker Rey [email or web address]. 12/20/2023 14:57:36 Are You Blind Or Do You Have Difficulty Seeing? No [email or web address] Information n ot available 03/31/2024 What Is [...] Do You Have Serious Difficulty Hearing? No [email or web address] Information not available 03/31/2024 What Type Of Diet Are You Following? REGULAR [email or web address] Information n ot available 03/31/2024 Have There Been Any Changes To Your Family Or Social Situation? No [email or web address] Information no t available 03/31/2024 What Was The Date Of Your Most Recent Tobacco Screening? 04/23/2025 Information not available 04/23/2025 What Is Your Relationship Status? Information not available 12/20/2023 Do You Use Your Seat Belt Or Car Seat Routinely? Yes Information not available 12/20/2023 Are You Sexually Active? No [email or web address] Information not available 03/31/2024 Do You Participate In Social Media? No Information not available 03/31/2024 Has Tobacco Cessation Counseling Been Provided? No [email or web address] Information not available 03/31/2024 Have You Recently Traveled Abroad? No Information not available 12/20/2023 Do You Have Difficulty Walking Or Climbing Stairs? Yes [email or web address] Information not available 03/31/2024 Are You Currently In School? No [email or web address] Information not available 03/31/2024 Do You Have Any Dietary Restrictions? No [email or web address] Information not available 03/31/2024 Sex: Female Functional Status Question Answer Note LastModified by [employer] ion Details LastModified Time Do you use any illicit or recreational drugs? No Information not available 12/20/2023 Do you or have you ever used any other forms of tobacco or nicotine? No [email or web address] Information not available 03/31/2024 What is your level of alcohol consumption? None [email or web address] Information not available 03/31/2024 Are you currently employed? No [email or web address] Information not available 03/31/2024 Do you have transportation difficulties? No Information not available 03/31/2024 Are you able to walk independently without assistance or assistive devices? NOINDWHEEL [email or web address] Information not available 03/31/2024 Do you have difficulty doing errands alone? Yes Information not available 03/31/2024 Are you able to care for yourself independently? Yes [email or web address] Information not available 03/31/2024 Do you have difficulty dressing, bathing, grooming, or toileting? Yes [email or web address] Information not available 03/31/2024 Mental Status Question Answer Note LastModified by Organization D etails LastModified Time Do you have difficulty concentrating, remembering or making decisions? No [email or web address] Information no t available 03/31/2024 Family History Nothing Reported. Medical History Condition Response Other Y Hospitalizations N Emergency room visit since last appointm ent. N Thyroid Problems Y Gynecological History Statement/Question Response Date of Last Pap Smear Most Recent Mammogram Obstetrics History GPAL:G 0 P 0 0 0 0 Immunizations Vaccine Type Date Status Note Provider Name and Address Organization Details Recorded Time zoster recombinant 025 cancelled patient objection Maria Luz Johnson APRN [address] [place] [address], [phone], [facility] [employer] 10/29/2024 13:45:04 pneumococcal polysaccharide PPV23 025 cancelled patient objection Maria Luz Johnson APRN [address] [place] [address], [phone], [facility] [employer] [facility] 10/29/2024 13:45:04 COVID-19 vaccine, vector-nr, rS-Ad26, PF, 0.5 mL 021 completed Not Available [facility] 04/23/2025 14:35:02 Past Encounters Encounter ID Performer Location Encounter Start Date Encounter Closed Date Diagnosis/Indication Diagnosis SNOMED-CT Code Diagnosis ICD10 Code Diagnosis IMO Codes Diagnosis Note [id number] Maria Luz Johnson [address] [address] 12/20/2023 14:09:21 12/20/2023 17:08:21 Atopic dermatitis 79905766 L20.9 Dysuria 73912279 R30.0 Fatigue 72538550 R53.83 Hyperlipidemia 83204536 E78.5 Hyperglycemia 22111340 R 73.9 Vitamin D deficiency 347 59880 E55.9 Vitamin B deficiency 479 25760 E53.9 Otitis ext bianca of left ear 0036758421 889429 H60.92 Peripheral vascular disease 790130680 I73.9 Generalize d anxiety disorder 58290795 F41.1 Allergic rhinitis 325849 04 J30.9 Gastroesop hageal reflux disease without esophagitis 063841608 K21.9 Edema of l ower extremity 795959835 R60.0 Overactive urinary bladder 025848544 N32.81 Chronic ob structive pulmonary disease 10260920 J44.9 Hypothyroidism 90863668 E03.9 Pain of mu ltiple joints 31742375 M25.50 Moderate r ecurrent major depression 81557124 F33.1 Essential hypertension 02952327 I10 Acute urin kory tract infection 943912578 N39.0 Body mass index 30+ - obesity 435207302 Z68.36 [id number] [place] [address] 03/31/2024 11:24:03 03/31/2024 13:44:56 Lower respiratory tract infection 10900912 J22 Generalize d anxiety disorder 76463004 F41.1 Allergic rhinitis 651355 04 J30.9 Gastroesop hageal reflux disease without esophagitis 060170327 K21.9 Edema of l ower extremity 947996268 R60.0 Overactive urinary bladder 624880220 N32.81 Chronic ob structive pulmonary disease 84069714 J44.9 Hypothyroidism 61854859 E03.9 Pain of mu ltiple joints 18335763 M25.50 pt states she can take meloxicam Moderate r ecurrent major depression 80413096 F33.1 Essential hypertension 04003350 I10 Infection of skin 651255 000 L08.9 Peripheral vascular disease 860119450 I73.9 Body mass index 30+ - obesity 384835786 Z68.36 [id number] [place] [address] 04/28/2024 08:58:15 04/28/2024 10:12:52 Cough 55012606 R05.9 Generalize d anxiety disorder 91026456 F41.1 Allergic rhinitis 433675 04 J30.9 Gastroesop hageal reflux disease without esophagitis 505572920 K21.9 Edema of l ower extremity 009794110 R60.0 Overactive urinary bladder 075631777 N32.81 Hypothyroidism 30667819 E03.9 Pain of mu ltiple joints 17106500 M25.50 pt states she can take meloxicam Moderate r ecurrent major depression 63508853 F33.1 Essential hypertension 71921612 I10 Body mass index 30+ - obesity 737180468 Z68.36 [id number] Maria Luz Johnson[address] 0 07/03/2024 11:03:45 07/03/2024 12:07:48 Dyspnea 377590306 R06.00 Oxygen sat uration below reference range 036867003 R79.81 Body mass index 30+ - obesity 876544344 Z68.36 [id number] Maria Luz Johnson[address] 0 07/30/2024 10:54:28 07/30/2024 12:44:07 Fatigue 67450340 R53.83 Hyperlipidemia 07813028 E78.5 Iron defic iency anemia 14171438 D50.9 Congestive heart failure 65594846 I50.9 Hypoglycemia 921178608 E 16.2 Generalize d anxiety disorder 72322237 F41.1 Allergic rhinitis 848948 04 J30.9 Gastroesop hageal reflux disease without esophagitis 571479136 K21.9 Overactive urinary bladder 818210141 N32.81 Pain of mu ltiple joints 58912797 M25.50 pt states she can take meloxicam Moderate r ecurrent major depression 40224198 F33.1 Hypothyroidism 51560602 E03.9 Essential hypertension 87668623 I10 Ulcer of l ower extremity 98039395 L97.909 telfa, Kerlix, and EVELIO bandage applied. Body mass index 30+ - obesity 409176121 Z68.36 Dyspnea 114449120 R06.00 Patient's O2 ran out while in office, 2 L given to her out of our oxygen tank. [employer] came to office and changed portable tank for her. [id number] [place] [address] 10/29/2024 12:53:07 10/29/2024 16:09:16 Adult health examination 866533473 Z00.00 Osteoporos is screening declined 6245950914 62689 Z53.20 Vaccine de clined by patient 5872599471 02 Z28.20 Pain in right foot 88563 46123 73090 M79.671 Congestive heart failure 89366838 I50.9 Generalize d anxiety disorder 37590467 F41.1 Allergic rhinitis 564490 04 J30.9 Low back pain 621158403 M54.50 Gastroesop hageal reflux disease without esophagitis 646952977 K21.9 Overactive urinary bladder 035585408 N32.81 Chronic ob structive pulmonary disease 95153444 J44.9 Hypothyroidism 71616378 E03.9 Pain of mu ltiple joints 96469490 M25.50 pt states she can take meloxicam Moderate r ecurrent major depression 61255145 F33.1 Essential hypertension 01814656 I10 Body mass index 30+ - obesity 173723190 Z68.36 [id number] Maria Luz Johnson [place] [id number] 01/22/2025 10:53:41 01/22/2025 11:44:34 Fatigue 53822593 R53.83 0929618 Mixed hyperlipidemia 267 900167 E78.2 12341 Hyperglycemia 04718949 R 73.9 36540 Vitamin D deficiency 347 52206 E55.9 73806 Cobalamin deficiency 190 735614 E53.8 61643 Loss of taste 75956370 R 43.2 835591 Congestive heart failure 32041776 I50.9 Generalize d anxiety disorder 03314423 F41.1 Allergic rhinitis 208559 04 J30.9 Gastroesop hageal reflux disease without esophagitis 561313808 K21.9 Overactive urinary bladder 724572330 N32.81 Chronic ob structive pulmonary disease 57214954 J44.9 Hypothyroidism 47013640 E03.9 Pain of mu ltiple joints 33512446 M25.50 pt states she can take meloxicam Moderate r ecurrent major depression 09867835 F33.1 Body mass index 30+ - obesity 858196728 Z68.36 352776 Hyperkalemia 01796633 E8 7.5 9805 Pneumonia 043383604 J18. 9 5960399723 [id number] [place] [address] 03/09/2025 10:53:36 03/09/2025 12:05:12 Congestive heart failure 80224439 I50.9 Generalize d anxiety disorder 72065123 F41.1 Allergic rhinitis 484911 04 J30.9 Low back pain 065234821 M54.50 Thrombocyt openic disorder 335245073 D69.6 62603 Body mass index 30+ - obesity 525422778 Z68.36 157462 [id number] Maria Luz Johnson [place] [id number] 04/23/2025 14:32:25 04/23/2025 15:43:16 Lower respiratory tract infection 90901526 J22 Candidiasis of vagina 72 217673 B37.31 350965 Allergic rhinitis 682337 04 J30.9 Pain of ri ght knee joint 2932883957 30531 M25.561 228172 Ulcer of l ower extremity 41575012 L97.912 L97.922 97311566 Body mass index 30+ - obesity 128360026 Z68.32 363936 Health Concerns Section Related Observation LastModified by Organization Detai ls LastModified Time None Recorded Concern Status LastModified by Organization Details LastModified Time None Recorded Advance Directives Directive None Recorded Payers Insurance Date Sequence Insurance Name Policy Number Policy Mayorga Covered Member ID Mayorga Member ID Guarantor Name 12/20/2023 1 *SELF PAY* Otis Bliss 06/26/2025 [place] [employer] [employer] [facility] Lian Keenan Bliss [id number] Lian Bliss 06/26/2025 1 WELLC[employer] (MEDICARE REPLACEMENT/A DVANTAGE - HMO) Lian Bliss [id number] Lian Bliss Notes Date Note Type Note [...] her empty one at home. Rey gandara, [employer]. 07/30/2024 13:43:27 10/29/2024 text/html pt here today for AWV and medication refills. pt states shes doing well on medication refills but BLE wounds are getting worse and painful. pt was sent to wound care at [facility] on 10/09/24 however pt states that [...] help pt. Maria Luz Johnson APRN [address] [facility], [place], [address], [employer]. 10/29/2024 14:00:26 01/22/2025 text/html pt here today [...] someone is supposed to come tomorrow from [place] and change her leg dsg. Maria Luz Johnson APRN [address] [facility], [place], [address], [employer]. 01/22/2025 12:46:25 03/09/2025 text/html pt here today [...] what is going on with home health. MariaL uz Johnson APRN [address] [facility], [place], [address], [facility] [employer]. 03/09/2025 15:39:57 04/23/2025 text/html pt here today [...] pt states that the wound care at [facility] told her that she needed home health. i will refer to another wound care facility. Maria Luz Johnson APRN [address] [facility], [place], [address], [facility] [employer] 04/23/2025 16:53:01 OBGyn Episode No OBEpisode recorded.
--- OUTSIDE RECORDS SUMMARY | 2025-07-07 11:47 | XMS_ITS | Clinical Summary ---
Author Organization [facility] Address [address] [place] [address] Care Team Providers Care Die Engraver Name Role Phone Lance Santillan MD Primary Care Provider [phone] Allergies Active Allergy Reactions Criticality Noted Date [...] season) 04/12/202502/2021 Medical Devices Implanted Type Area Chip Separator Device Identifier Shelf Expiration Date Model / Serial / Lot Implant Implant Description:Right hip and ri ght knee Sut Contrl Tiss Stratafix Spiral Pdo Bidir 1 [id number] - [id number] Implanted:Qty : 1 on 12/29/2020 by Seymour Schmid MD at [facility] Implant Right: Hip [employer] DIV OF J AND J [id number] / / Cmt Bone Simplex/P Full Dose 10/Pk - [id number] Implanted:Qty : 3 on 12/29/2020 by Seymour Schmid MD at [facility] Implant Right: Hip AMARJIT ISI [id number] / / Description:Each batch mixed with 3 G vancomycin and 3.6 G tobramycin Stem Fem/Hip Versys Advocate Nonvlign Std/Offst Sz11 120mm - [id number] Implanted:Qty : 1 on 12/29/2020 by Seymour Schmid MD at [facility] Implant Right: Hip [employer] [id number] 05/11/2026 [id number] / / [id number] Hd Fem/Hip Cropsey Cocr 07/25tpr 36mm Pls6 Strl - [id number] Implanted:Qty : 1 on 12/29/2020 by Seymour Schmid MD at [facility] Implant Right: Hip [employer] [id number] 01/09/2030 [id number] / / [id number] Liner Hip Cropsey Cnstr Allpoly Std Face 54mm - [id number] Implanted:Qty : 1 on 12/29/2020 by Seymour Schmid MD at [facility] Implant Right: Hip [employer] [id number] / / [id number] Additional Health Concerns Infection Onset Date Last [...] Of Support Discussed With: Patient Care Teams Die Engraver Relationship Specialty Start Date End Date Lance Santillan MD [address] [facility] [address] [facility] [place] [address] PCP - General Adolescent Medicine 12/27/20
[2025-07-07 12:00] VITALS: BP 148/76; PULSE 69; RESP 19; O2SAT 91
[2025-07-07] MEDS: SODIUM CHLORIDE 0.9% IV (12:00)
[2025-07-07] MEDS: SODIUM FERRIC GLUCONATE IV (12:00)
[2025-07-07 13:15] VITALS: BP 150/89; PULSE 86; RESP 19; O2SAT 92
== END 2025-07-07 23:59 | disposition home or self-care (01) ==
PROVIDERS: PCP Nurse Practitioner; Visit Provider Internal Medicine Medical Oncology
DX: D64.9 Anemia, unspecified (principal)
CPT/HCPCS: 96365; J2916

== ENCOUNTER 2025-07-14 11:17 | Outpatient (CLI) | payer MEDICARE, SELFPAY ==
--- OUTSIDE RECORDS SUMMARY | 2025-07-14 11:23 | XMS_ITS | Clinical Summary ---
Author Organization [facility] Address [address] [facility] [place] [address] Phone Care Team Providers Care Funeral Location Manager Name Role Phone Unavailable Unavailable Conditions or Problems No information available. Medications No information available. Medications Administered No information available. Allergies, Adverse Reactions, Alerts No information available. Results No information available. Plan of Care No information available. Procedures No information available. Vital Signs No information available. Immunizations No information available. Advance Directives No information available.
--- OUTSIDE RECORDS SUMMARY | 2025-07-14 11:24 | XMS_ITS | Clinical Summary ---
Author Organization [facility] Address [address] [place] [address] Care Team Providers Care Baseboard Heating Installer Name Role Phone Lance Santillan MD Primary Care Provider [phone] Allergies Active Allergy Reactions Criticality Noted Date [...] season) 04/12/202502/2021 Medical Devices Implanted Type Area Coffee Supervisor Device Identifier Shelf Expiration Date Model / Serial / Lot Implant Implant Description:Right hip and ri ght knee Sut Contrl Tiss Stratafix Spiral Pdo Bidir 1 [id number] - [id number] Implanted:Qty : 1 on 12/29/2020 by Seymour Schmid MD at Implant Right: Hip [employer] DIV OF J AND J [id number] / / Cmt Bone Simplex/P Full Dose 10/Pk - [id number] Implanted:Qty : 3 on 12/29/2020 by Seymour Schmid MD at Implant Right: Hip AMARJIT ISI [id number] / / Description:Each batch mixed with 3 G vancomycin and 3.6 G tobramycin Stem Fem/Hip Versys Advocate Nonvlign Std/Offst Sz11 120mm - [id number] Implanted:Qty : 1 on 12/29/2020 by Seymour Schmid MD at Implant Right: Hip [employer] [id number] 05/11/2026 [id number] / / [id number] Hd Fem/Hip Fairchance Cocr 07/25tpr 36mm Pls6 Strl - [id number] Implanted:Qty : 1 on 12/29/2020 by Seymour Schmid MD at Implant Right: Hip [employer] [id number] 01/09/2030 [id number] / / [id number] Liner Hip Fairchance Cnstr Allpoly Std Face 54mm - [id number] Implanted:Qty : 1 on 12/29/2020 by Seymour Schmid MD at Implant Right: Hip [employer] [id number] / / [id number] Additional Health Concerns Infection Onset Date Last [...] Of Support Discussed With: Patient Care Teams Baseboard Heating Installer Relationship Specialty Start Date End Date Lance Santillan MD [address] [facility] [address] [facility] [place] [address] PCP - General Adolescent Medicine 12/27/20
--- OUTSIDE RECORDS SUMMARY | 2025-07-14 11:24 | XMS_ITS | Clinical Summary ---
Author Organization [facility] ([place], [place], [place], [place], [place]) Address [address] [place] [address] Care Team Providers Care Field Horticultural Specialty Grower Name Role Phone Ted Matute MD Primary Care Provider [phone] Ted Matute MD Unavailable [phone] Social History Tobacco Use Types Packs/Day Years [...] (#1) 2025 Insurance MEDICAID OF [place] [facility] AD[facility] Care Teams Field Horticultural Specialty Grower Relationship Specialty Start Date End Date Ted Matute MD [address] [facility] [address] [place] [address] PCP - General Family Medicine 05/20/23 Ted Matute MD [address] [facility] [address] [place] [address] Referring Physician Family Medicine 05/20/23
--- OUTSIDE RECORDS SUMMARY | 2025-07-14 11:24 | XMS_ITS | Clinical Summary ---
Author Organization [facility] Address [address] [place] [address] Care Team Providers Care Laundry Housekeeping Aide Name Role Phone Ted Matute MD Primary Care Provider [phone] Family History Medical History Relation Name Comments [...] r (1 - 1-dose 75+ series) 02/05/2020 [id number] Vaccine (1 - 20 25- season) 2025 [...] this topic Insurance [place]ARE Care Teams Laundry Housekeeping Aide Relationship Specialty Start Date End Date Ted Matute MD [facility] [place] [address] [facility] - General 12/23/20
--- OUTSIDE RECORDS SUMMARY | 2025-07-14 11:24 | XMS_ITS | Data Portability ---
Author Organization [facility] [employer] [facility] Address [address] [place] [address] Assessment No assessment recorded. Plan of Treatment Reminders Order Date Submit Date Provider Last Modified By Organization Details Last Modified Time Details Appointments TRANSP ORTATI ON 2024 01:00P M Transporter Not available Not available Not available FOLLOW UP 15 2024 01:30P M Jackeline Johnson [employer]ID TE[employer]ER Not available Not available Not available Lab CBC w/ auto diff [facility]24 [facility] [address] [place], [address], 01/23/2025 08:12:19 CMP, serum or plasma [facility]24 [facility] [address] [place], [address], 01/23/2025 08:12:19 TSH + free T4, serum 2024 025 [facility] [place], [address], 01/23/2025 08:12:19 lipid panel, serum 2024 025 [facility] [address] [place], [address], 01/23/2025 08:12:20 HbA1c (hemog lobin A1c), blood 2024 025 [facility] [address] [place], [address], 01/23/2025 08:12:21 vitami n D, 25-hyd tesfaye, total, serum 2024 025 [facility] [address] [place], [address], 01/23/2025 08:12:21 cobala min and folate panel, serum 2024 025 [facility] [place], [address], 01/23/2025 08:12:20 CBC w/ auto diff 2023 024 [facility]), [address] [place] [address], [address], 07/31/2024 13:07:33 CMP, serum or plasma 2023 024 [facility] [address] [place] [address], [id number], 07/31/2024 13:07:34 TSH + free T4, serum 2023 024 [facility]), [facility] [place], [address], 07/31/2024 13:07:33 BNP (B-typ e natriu retic peptid e), serum or plasma 2023 024 [facility] ([place]), [address] [place] [address], [id number], 07/31/2024 13:07:35 lipid panel, serum 2023 024 [facility]), [address] [place] [address], [address], 07/31/2024 13:07:34 HbA1c (hemog lobin A1c), blood 2023 024 [facility] [address] [place] [address], [address], 07/31/2024 13:07:35 iron + TIBC + ferrit in, serum 2023 024 [facility]), [address], [place], [address], 07/31/2024 13:07:32 Referral wound care referr al [address] [facility], [address] [place] [address] [address], [place], [address], 05/25/2025 14:31:23 Procedures proced ure, dressi ng change (PROC) 2023 024 Not available 07/30/2024 13:41:38 Surgeries None record ed. Imaging XR, knee, 3 view [id number], [address], 04/27/2025 11:03:39 XR, foot, 3 or more view [address], [address], 10/29/2024 17:03:27 Medication Orders cetiri zine 10 mg tablet 2024 025 [facility], [address] [place] [address], [address], 04/23/2025 16:17:01 azithr omycin 250 mg tablet 2024 025 [facility], [address] [place] [address], [address], 04/23/2025 16:26:19 flucon azole 150 mg tablet 2024 025 [facility], [address] [place] [address], [address], 04/23/2025 16:26:20 cetiri zine 10 mg tablet 2024 025 [facility], [address] [place] [address], [address], 03/09/2025 12:20:25 buspir one 7.5 mg tablet 2024 025 [facility], [address] [place] [address], [address], 03/09/2025 12:35:28 Eliqui s 5 mg tablet 2024 025 [facility], [address] [place] [address], [address], 03/12/2025 13:20:40 cyclob enzapr ine 10 mg tablet 2024 025 [facility], [address] [place] [address], [address], 03/09/2025 12:35:26 bumeta nide 1 mg tablet 2024 025 [facility], [address] [place] [address], [address], 03/09/2025 12:35:27 cetiri zine 10 mg tablet 2024 025 [facility], [address] [place] [address], [address], 04/23/2025 17:16:37 ipratr opium 0.5 mg-alb uterol 3 mg (2.5 mg base)/ 3 mL nebuli zation soln 2024 025 [facility], [address] [place] [address], [address], 01/22/2025 14:43:28 mirtaz apine 15 mg tablet 2024 025 [facility], [address] [place] [address], [address], 03/18/2025 16:55:47 buspir one 7.5 mg tablet 2024 025 [facility], [address] [place] [address], [address], 01/22/2025 14:43:26 sertra line 100 mg tablet 2024 025 [facility], [address] [place] [address], [address], 03/18/2025 16:55:45 Gemtes a 75 mg tablet 2024 025 [facility], [address] [place] [address], [address], 02/02/2025 13:10:17 bumeta nide 1 mg tablet 2024 025 [facility], [address] [place] [address], [address], 01/22/2025 14:43:25 meloxi cam 7.5 mg tablet 2024 025 [facility], [address] [place] [address], [address], 01/22/2025 14:43:28 famoti dine 20 mg tablet 2024 025 [facility], [address] [place] [address], [address], 01/22/2025 14:43:27 pantop razole 40 mg tablet ,delay ed releas e 2024 025 [facility], [address] [place] [address], [address], 03/18/2025 16:55:47 levoth yroxin e 25 mcg tablet 2024 025 [facility], [address] [place] [address], [address], 03/18/2025 16:55:48 cetiri zine 10 mg tablet 2024 025 [facility], [address] [place] [address], 46[address], 12/07/2024 16:42:07 cyclob enzapr ine 10 mg tablet 2024 025 [facility], [address] [place] [address], [address], 12/07/2024 16:42:09 ipratr opium 0.5 mg-alb uterol 3 mg (2.5 mg base)/ 3 mL nebuli zation soln 2024 025 [facility], [address] [place] [address], 39[address], 12/26/2024 12:08:12 mirtaz apine 15 mg tablet 2024 025 [facility], [address] [place] [address], [address], 12/07/2024 16:42:02 buspir one 7.5 mg tablet 2024 025 [facility], [address] [place] [address], 60[address], 12/07/2024 16:42:10 sertra line 100 mg tablet 2024 025 [facility], [address] [place] [address], 432[address], 12/07/2024 16:42:10 valsar morris 160 mg tablet 2024 025 [facility], [address] [place] [address], [address], 01/22/2025 11:41:58 Gemtes a 75 mg tablet 2024 025 [facility], [address] [place] [address], 26[address], 12/07/2024 16:42:06 bumeta nide 1 mg tablet 2024 025 [facility], [address] [place] [address], [address], 12/07/2024 11:49:35 meloxi cam 7.5 mg tablet 2024 025 [facility], [address] [place] [address], 540[address], 12/07/2024 16:42:10 famoti dine 20 mg tablet 2024 025 [facility], [address] [place] [address], 77[address], 12/07/2024 16:42:08 pantop razole 40 mg tablet ,delay ed releas e 2024 025 [facility], [address] [place] [address], 632[address], 12/07/2024 16:42:02 levoth yroxin e 25 mcg tablet 2024 025 [facility], [address] [place] [address], 840[address], 12/07/2024 16:42:08 cetiri zine 10 mg tablet 2023 024 [facility], [address] [place] [address], 65[address], 08/07/2024 14:37:49 mirtaz apine 15 mg tablet 2023 024 [facility], [address] [place] [address], 028[address], 08/07/2024 14:37:57 buspir one 7.5 mg tablet 2023 024 [facility], [address] [place] [address], 49[address], 08/07/2024 14:37:54 sertra line 100 mg tablet 2023 024 [facility], [address] [place] [address], 384[address], 08/07/2024 14:37:51 Gemtes a 75 mg tablet 2023 024 [facility], [address] [place] [address], 29906, 08/07/2024 14:37:52 valsar morris 160 mg tablet [email or web address] [facility], [address] [place] [address], 10[address], 01/22/2025 11:24:03 bumeta nide 1 mg tablet 2023 024 [facility], [address] [place] [address], 500[address], 08/07/2024 14:37:50 meloxi cam 7.5 mg tablet 2023 024 [facility], [address] [place] [address], 0[address], 08/07/2024 14:37:55 famoti dine 20 mg tablet 2023 024 [facility], [address] [place] [address], 56065, 08/07/2024 14:37:56 pantop razole 40 mg tablet ,delay ed releas e 2023 024 [facility], [address] [place] [address], 416[address], 08/07/2024 14:37:51 levoth yroxin e 25 mcg tablet 2023 024 [facility], [address] [place] [address], 486[address], 08/07/2024 14:37:55 Patient TargetsNo targets recorded. Patient Instructions Encounter Date Encounter Id Patient Instructions Last Modified By Organization Details Last Modified Time 10/29/2024 [id number] preventing osteoporosis: care instructions [email or web address] Not available 10/29/2024 14:18:25 functional assessment screening* [email or web address] Not available 10/29/2024 13:43:09 Reason for Referral Referring Physician: Sparkle Johnson, Family Medicine, Encounter Date: 04/23/2025 Results Created Date Observation Date Name Description Value Unit Range Abnormal Flag Note LastModifiedBy Organization Detail LastModifiedTime 07/30/20 24 07/31/2024 FE+TI BC+FE R iron bind.cap.(TI BC) 282 ug/dL 250-45 0 normal Not Available [facility] [address] [place], [address], 07/31/2024 13:07:32 07/30/20 24 07/31/2024 FE+TI BC+FE R UIBC 249 ug/dL 118-36 9 normal Not Available [facility] [address] [place], [address], 07/31/2024 13:07:32 07/30/20 24 07/31/2024 FE+TI BC+FE R iron 33 ug/dL 27-139 normal Not Available [facility] [address] [place], [address], 07/31/2024 13:07:32 12/19/07/31/2024 FE+TI BC+FE R iron saturation 12 % 15-55 below low normal Not Available [facility] [address] [place], [address], 07/31/2024 13:07:32 07/30/20 24 07/31/2024 FE+TI BC+FE R ferritin 86 NG/mL 15-150 normal Not Available [facility] [address] [facility], [place], [address], 07/31/2024 13:07:32 07/30/20 24 07/31/2024 TSH+F REE T4 TSH 4.670 uIU/m L 0.450- 4.500 above high normal Not Available [facility] [address] [place], [address], 07/31/2024 13:07:33 07/30/20 24 07/31/2024 TSH+F REE T4 T4,free(dire ct) 0.84 NG/dL 0.82-1 .77 normal Not Available [facility] [address] [place], [address], 07/31/2024 13:07:33 07/30/20 24 07/31/2024 CBC WITH DIFFE RENTI AL/PL ATELE T WBC 5.7 x10e3 /uL 3.4-10 .8 normal Not Available [facility] [address] [place], [address], 07/31/2024 13:07:33 07/30/20 24 07/31/2024 CBC WITH DIFFE RENTI AL/PL ATELE T RBC 3.87 x10e6 /uL 3.77-5 .28 normal Not Available [facility] [address] [place], [address], 07/31/2024 13:07:33 07/30/20 24 07/31/2024 CBC WITH DIFFE RENTI AL/PL ATELE T hemoglobin 10.1 g/dL 11.1-1 5.9 below low normal Not Available [facility] ([facility]) [address] [place], [address], 07/31/2024 13:07:33 07/30/20 24 07/31/2024 CBC WITH DIFFE RENTI AL/PL ATELE T hematocrit 32.6 % 34.0-4 6.6 below low normal Not Available [facility] [address] [place], [address], 07/31/2024 13:07:33 07/30/20 24 07/31/2024 CBC WITH DIFFE RENTI AL/PL ATELE T MCV 84 fL 79-97 normal Not Available [facility] [address] [place], [address], 07/31/2024 13:07:33 07/30/20 24 07/31/2024 CBC WITH DIFFE RENTI AL/PL ATELE T MCH 26.1 pg 26.6-3 3.0 below low normal Not Available [facility] [address] [place], [address], 07/31/2024 13:07:33 07/30/20 24 07/31/2024 CBC WITH DIFFE RENTI AL/PL ATELE T MCHC 31.0 g/dL 31.5-3 5.7 below low normal Not Available [facility] [address] [place], [address], 07/31/2024 13:07:33 07/30/20 24 07/31/2024 CBC WITH DIFFE RENTI AL/PL ATELE T RDW 16.4 % 11.7-1 5.4 above high normal Not Available [facility] [address] [place], [address], 07/31/2024 13:07:33 07/30/20 24 07/31/2024 CBC WITH DIFFE RENTI AL/PL ATELE T platelets 147 x10e3 /uL 150-45 0 below low normal Not Available [facility] [address] [facility], [place], [address], 07/31/2024 13:07:33 07/30/20 24 07/31/2024 CBC WITH DIFFE RENTI AL/PL ATELE T neutrophils 68 % not estab. normal Not Available [facility] [address] [facility], [place], [address], 07/31/2024 13:07:33 07/30/20 24 07/31/2024 CBC WITH DIFFE RENTI AL/PL ATELE T lymphs 19 % not estab. normal Not Available [facility] [address] [facility], [place], [address], 07/31/2024 13:07:33 07/30/20 24 07/31/2024 CBC WITH DIFFE RENTI AL/PL ATELE T monocytes 6 % not estab. normal Not Available [facility] [address] [facility], [place], [address], 07/31/2024 13:07:33 07/30/20 24 07/31/2024 CBC WITH DIFFE RENTI AL/PL ATELE T eos 6 % not estab. normal Not Available [facility] [address] [facility], [place], [address], 07/31/2024 13:07:33 07/30/20 24 07/31/2024 CBC WITH DIFFE RENTI AL/PL ATELE T basos 1 % not estab. normal Not Available [facility] [address] [facility], [place], [address], 07/31/2024 13:07:33 07/30/20 24 07/31/2024 CBC WITH DIFFE RENTI AL/PL ATELE T immature cells VIDEO EDITING INTERN Not Available [facility] [address] [facility], [place], [address], 07/31/2024 13:07:33 07/30/20 24 07/31/2024 CBC WITH DIFFE RENTI AL/PL ATELE T neutrophils (absolute) 3.9 x10e3 /uL 1.4-7. 0 normal Not Available [facility] [address] [place], [address], 07/31/2024 13:07:33 07/30/20 24 07/31/2024 CBC WITH DIFFE RENTI AL/PL ATELE T lymphs (absolute) 1.1 x10e3 /uL 0.7-3. 1 normal Not Available [facility] [address] [facility], [place], [address], 07/31/2024 13:07:33 07/30/20 24 07/31/2024 CBC WITH DIFFE RENTI AL/PL ATELE T monocytes(ab solute) 0.3 x10e3 /uL 0.1-0. 9 normal Not Available [facility] [address] [place], [address], 07/31/2024 13:07:33 07/30/20 24 07/31/2024 CBC WITH DIFFE RENTI AL/PL ATELE T eos (absolute) 0.4 x10e3 /uL 0.0-0. 4 normal Not Available [facility] [address] [place], [address], 07/31/2024 13:07:33 07/30/20 24 07/31/2024 CBC WITH DIFFE RENTI AL/PL ATELE T baso (absolute) 0.0 x10e3 /uL 0.0-0. 2 normal Not Available [facility] [address] [place], [address], 07/31/2024 13:07:33 07/30/20 24 07/31/2024 CBC WITH DIFFE RENTI AL/PL ATELE T immature granulocytes 0 % not estab. Not Available [facility] [address] [facility], [place], [address], 07/31/2024 13:07:33 07/30/20 24 07/31/2024 CBC WITH DIFFE RENTI AL/PL ATELE T immature grans (abs) 0.0 x10e3 /uL 0.0-0. 1 Not Available [facility] [address] [facility], [place], [address], 07/31/2024 13:07:33 07/30/20 24 07/31/2024 CBC WITH DIFFE RENTI AL/PL ATELE T NRBC VIDEO EDITING INTERN Not Available [facility] [address] [facility], [place], [address], 07/31/2024 13:07:33 07/30/20 24 07/31/2024 CBC WITH DIFFE RENTI AL/PL ATELE T hematology comments: VIDEO EDITING INTERN Not Available [facility] [address] [facility], [place], [address], 07/31/2024 13:07:33 07/30/20 24 07/31/2024 COMP. METAB OLIC PANEL (14) glucose 95 mg/dL 70-99 normal Not Available [facility] [address] [facility], [place], [address], 07/31/2024 13:07:34 07/30/20 24 07/31/2024 COMP. METAB OLIC PANEL (14) BUN 54 mg/dL 8-27 above high normal Not Available [facility] [address] [facility], [place], [address], 07/31/2024 13:07:34 07/30/20 24 07/31/2024 COMP. METAB OLIC PANEL (14) creatinine 1.65 mg/dL 0.57-1 .00 above high normal Not Available [facility] [address] [facility], [place], [address], 07/31/2024 13:07:34 07/30/20 24 07/31/2024 COMP. METAB OLIC PANEL (14) eGFR 31 mL/mi n/1.7 3 >59 below low normal Not Available [facility] [address] [facility] [place], [address], 07/31/2024 13:07:34 07/30/20 24 07/31/2024 COMP. METAB OLIC PANEL (14) BUN/creatini ne ratio 33 12-28 above high normal Not Available [facility] [address] [facility] [place], [address], 07/31/2024 13:07:34 07/30/20 24 07/31/2024 COMP. METAB OLIC PANEL (14) sodium 141 mmol/ L 134-14 4 normal Not Available [facility] [address] [facility] [place], [address], 07/31/2024 13:07:34 07/30/20 24 07/31/2024 COMP. METAB OLIC PANEL (14) potassium 6.0 mmol/ L 3.5-5. 2 above high normal Not Available [facility] [address] [place], [address], 07/31/2024 13:07:34 07/30/20 24 07/31/2024 COMP. METAB OLIC PANEL (14) chloride 110 mmol/ L 96-106 above high normal Not Available [facility] [address] [place], [address], 07/31/2024 13:07:34 07/30/20 24 07/31/2024 COMP. METAB OLIC PANEL (14) carbon dioxide, total 19 mmol/ L 20-29 below low normal Not Available [facility] [address] [place], [address], 07/31/2024 13:07:34 07/30/20 24 07/31/2024 COMP. METAB OLIC PANEL (14) calcium 9.0 mg/dL 8.7-10 .3 normal Not Available [facility] [address] [facility] [place], [address], 07/31/2024 13:07:34 07/30/20 24 07/31/2024 COMP. METAB OLIC PANEL (14) protein, total 7.0 g/dL 6.0-8. 5 normal Not Available [facility] [address] [facility] [place], [address], 07/31/2024 13:07:34 07/30/20 24 07/31/2024 COMP. METAB OLIC PANEL (14) albumin 4.2 g/dL 3.8-4. 8 normal Not Available [facility] [address] [facility] [place], [address], 07/31/2024 13:07:34 07/30/20 24 07/31/2024 COMP. METAB OLIC PANEL (14) globulin, total 2.8 g/dL 1.5-4. 5 Not Available [facility] [address] [facility] [place], [address], 07/31/2024 13:07:34 07/30/20 24 07/31/2024 COMP. METAB OLIC PANEL (14) bilirubin, total 0.2 mg/dL 0.0-1. 2 normal Not Available [facility] [address] [facility] [place], [address], 07/31/2024 13:07:34 07/30/20 24 07/31/2024 COMP. METAB OLIC PANEL (14) alkaline phosphatase 80 IU/L 44-121 normal Not Available [facility] [address] [facility] [place], [address], 07/31/2024 13:07:34 07/30/20 24 07/31/2024 COMP. METAB OLIC PANEL (14) AST (SGOT) 13 IU/L 0-40 normal Not Available [facility] [address] [place], [address], 07/31/2024 13:07:34 07/30/20 24 07/31/2024 COMP. METAB OLIC PANEL (14) ALT (SGPT) 6 IU/L 0-32 normal Not Available [facility] [address] [place], [address], 07/31/2024 13:07:34 07/30/20 24 07/31/2024 LIPID PANEL cholesterol, total 145 mg/dL 100-19 9 normal Not Available [facility] [address] [place], [address], 07/31/2024 13:07:34 07/30/20 24 07/31/2024 LIPID PANEL triglyceride s 92 mg/dL 0-149 normal Not Available [facility] [address] [place], [address], 07/31/2024 13:07:34 07/30/20 24 07/31/2024 LIPID PANEL HDL cholesterol 39 mg/dL >39 below low normal Not Available [facility] [address] [place], [address], 07/31/2024 13:07:34 07/30/20 24 07/31/2024 LIPID PANEL VLDL cholesterol dee 17 mg/dL 5-40 Not Available [facility] [address] [place], [address], 07/31/2024 13:07:34 07/30/20 24 07/31/2024 LIPID PANEL LDL chol calc ([facility]) 89 mg/dL 0-99 Not Available [facility] [address] [place], [address], 07/31/2024 13:07:34 07/30/20 24 07/31/2024 LIPID PANEL LDL calc comment: VIDEO EDITING INTERN Not Available [facility] [address] [facility], [place], [address], 07/31/2024 13:07:34 07/30/20 24 07/31/2024 HEMOG LOBIN A1C hemoglobin A1C 5.8 % 4.8-5. 6 above high normal Predi abete s: 5.7 - 6.4 Diabe leena: >6.4 Glyce suzanne contr ol for adult s with diabe leena: <7.0 Not Available [facility] [address] [facility], [place], [address], 07/31/2024 13:07:34 07/30/20 24 07/31/2024 B-TYP E NATRI URETI C PEPTI DE B-type natriuretic peptide 79.9 pg/mL 0.0-10 0.0 Sieme ns [facility] metho dolog y Not Available [facility]) [address] [place], [address], 07/31/2024 13:07:35 01/23/20 25 01/23/2025 TSH+F REE T4 TSH 1.470 uIU/m L 0.450- 4.500 normal Not Available [facility] [address] [place], [address], 01/23/2025 08:12:18 01/23/20 25 01/23/2025 TSH+F REE T4 T4,free(dire ct) 1.02 NG/dL 0.82-1 .77 normal Not Available [facility] [address] [place], [address], 01/23/2025 08:12:18 01/23/20 25 01/23/2025 CBC WITH DIFFE RENTI AL/PL ATELE T WBC 8.2 x10e3 /uL 3.4-10 .8 normal Not Available [facility] [address] [place], [address], 01/23/2025 08:12:19 01/23/2001/23/2025 CBC WITH DIFFE RENTI AL/PL ATELE T RBC 3.19 x10e6 /uL 3.77-5 .28 below low normal Not Available [facility] [address] [place], [address], 01/23/2025 08:12:19 01/23/2001/23/2025 CBC WITH DIFFE RENTI AL/PL ATELE T hemoglobin 8.5 g/dL 11.1-1 5.9 below low normal Not Available [facility] [address] [place], [address], 01/23/2025 08:12:19 01/23/2001/23/2025 CBC WITH DIFFE RENTI AL/PL ATELE T hematocrit 28.2 % 34.0-4 6.6 below low normal Not Available [facility] [address] [place], [address], 01/23/2025 08:12:19 01/23/2001/23/2025 CBC WITH DIFFE RENTI AL/PL ATELE T MCV 88 fL 79-97 normal Not Available [facility] [address] [place], [address], 01/23/2025 08:12:19 01/23/2001/23/2025 CBC WITH DIFFE RENTI AL/PL ATELE T MCH 26.6 pg 26.6-3 3.0 normal Not Available [facility] [address] [place], [address], 01/23/2025 08:12:19 01/23/2001/23/2025 CBC WITH DIFFE RENTI AL/PL ATELE T MCHC 30.1 g/dL 31.5-3 5.7 below low normal Not Available [facility] [address] [facility], [place], [address], 01/23/2025 08:12:19 01/23/2001/23/2025 CBC WITH DIFFE RENTI AL/PL ATELE T RDW 14.8 % 11.7-1 5.4 Not Available [facility] [address] [facility], [place], [address], 01/23/2025 08:12:19 01/23/2001/23/2025 CBC WITH DIFFE RENTI AL/PL ATELE T platelets 168 x10e3 /uL 150-45 0 normal Not Available [facility] [address] [facility], [place], [address], 01/23/2025 08:12:19 01/23/2001/23/2025 CBC WITH DIFFE RENTI AL/PL ATELE T neutrophils 78 % not estab. normal Not Available [facility] [address] [facility], [place], [address], 01/23/2025 08:12:19 01/23/2001/23/2025 CBC WITH DIFFE RENTI AL/PL ATELE T lymphs 13 % not estab. normal Not Available [facility] [address] [facility], [place], [address], 01/23/2025 08:12:19 01/23/2001/23/2025 CBC WITH DIFFE RENTI AL/PL ATELE T monocytes 6 % not estab. normal Not Available [facility] [address] [facility], [place], [address], 01/23/2025 08:12:19 01/23/2001/23/2025 CBC WITH DIFFE RENTI AL/PL ATELE T eos 3 % not estab. normal Not Available [facility] [address] [place], [address], 01/23/2025 08:12:19 01/23/2001/23/2025 CBC WITH DIFFE RENTI AL/PL ATELE T basos 0 % not estab. normal Not Available [facility] [address] [facility], [place], [address], 01/23/2025 08:12:19 01/23/2001/23/2025 CBC WITH DIFFE RENTI AL/PL ATELE T immature cells VIDEO EDITING INTERN Not Available [facility] [address] [place], [address], 01/23/2025 08:12:19 01/23/2001/23/2025 CBC WITH DIFFE RENTI AL/PL ATELE T neutrophils (absolute) 6.3 x10e3 /uL 1.4-7. 0 normal Not Available [facility] [address] [place], [address], 01/23/2025 08:12:19 01/23/2001/23/2025 CBC WITH DIFFE RENTI AL/PL ATELE T lymphs (absolute) 1.1 x10e3 /uL 0.7-3. 1 normal Not Available [facility] [address] [place], [address], 01/23/2025 08:12:19 01/23/2001/23/2025 CBC WITH DIFFE RENTI AL/PL ATELE T monocytes(ab solute) 0.5 x10e3 /uL 0.1-0. 9 normal Not Available [facility] [address] [place], [address], 01/23/2025 08:12:19 01/23/2001/23/2025 CBC WITH DIFFE RENTI AL/PL ATELE T eos (absolute) 0.2 x10e3 /uL 0.0-0. 4 normal Not Available [facility] [address] [facility], [place], [address], 01/23/2025 08:12:19 01/23/2001/23/2025 CBC WITH DIFFE RENTI AL/PL ATELE T baso (absolute) 0.0 x10e3 /uL 0.0-0. 2 normal Not Available [facility] [address] [facility], [place], [address], 01/23/2025 08:12:19 01/23/2001/23/2025 CBC WITH DIFFE RENTI AL/PL ATELE T immature granulocytes 0 % not estab. Not Available [facility] [address] [facility], [place], [address], 01/23/2025 08:12:19 01/23/2001/23/2025 CBC WITH DIFFE RENTI AL/PL ATELE T immature grans (abs) 0.0 x10e3 /uL 0.0-0. 1 Not Available [facility] [address] [facility], [place], [address], 01/23/2025 08:12:19 01/23/2001/23/2025 CBC WITH DIFFE RENTI AL/PL ATELE T NRBC VIDEO EDITING INTERN Not Available [facility] [address] [facility], [place], [address], 01/23/2025 08:12:19 01/23/2001/23/2025 CBC WITH DIFFE RENTI AL/PL ATELE T hematology comments: VIDEO EDITING INTERN Not Available [facility] [address] [facility], [place], [address], 01/23/2025 08:12:19 01/23/2001/23/2025 COMP. METAB OLIC PANEL (14) glucose 93 mg/dL 70-99 normal Not Available [facility] [address] [facility] [place], [address], 01/23/2025 08:12:19 01/23/20 25 01/23/2025 COMP. METAB OLIC PANEL (14) BUN 69 mg/dL 8-27 above high normal Not Available [facility] [address] [facility] [place], [address], 01/23/2025 08:12:19 01/23/20 25 01/23/2025 COMP. METAB OLIC PANEL (14) creatinine 3.89 mg/dL 0.57-1 .00 above high normal Not Available [facility] [address] [facility] [place], [address], 01/23/2025 08:12:19 01/23/20 25 01/23/2025 COMP. METAB OLIC PANEL (14) eGFR 11 mL/mi n/1.7 3 >59 below low normal Not Available [facility] [address] [facility] [place], [address], 01/23/2025 08:12:19 01/23/20 25 01/23/2025 COMP. METAB OLIC PANEL (14) BUN/creatini ne ratio 18 12-28 normal Not Available [facility] [address] [facility] [place], [address], 01/23/2025 08:12:19 01/23/20 25 01/23/2025 COMP. METAB OLIC PANEL (14) sodium 142 mmol/ L 134-14 4 normal Not Available [facility] [address] [facility] [place], [address], 01/23/2025 08:12:19 01/23/20 25 01/23/2025 COMP. METAB OLIC PANEL (14) potassium 4.6 mmol/ L 3.5-5. 2 normal Not Available [facility] [address] [place], [address], 01/23/2025 08:12:19 01/23/20 25 01/23/2025 COMP. METAB OLIC PANEL (14) chloride 101 mmol/ L 96-106 normal Not Available [facility] [address] [place], [address], 01/23/2025 08:12:19 01/23/20 25 01/23/2025 COMP. METAB OLIC PANEL (14) carbon dioxide, total 22 mmol/ L 20-29 normal Not Available [facility] [address] [place], [address], 01/23/2025 08:12:19 01/23/20 25 01/23/2025 COMP. METAB OLIC PANEL (14) calcium 8.7 mg/dL 8.7-10 .3 normal Not Available [facility] [address] [place], [address], 01/23/2025 08:12:19 01/23/20 25 01/23/2025 COMP. METAB OLIC PANEL (14) protein, total 6.7 g/dL 6.0-8. 5 normal Not Available [facility] [address] [facility] [place], [address], 01/23/2025 08:12:19 01/23/20 25 01/23/2025 COMP. METAB OLIC PANEL (14) albumin 3.9 g/dL 3.8-4. 8 normal Not Available [facility] [address] [facility] [place], [address], 01/23/2025 08:12:19 01/23/20 25 01/23/2025 COMP. METAB OLIC PANEL (14) globulin, total 2.8 g/dL 1.5-4. 5 Not Available [facility] [address] [facility] [place], [address], 01/23/2025 08:12:19 01/23/20 25 01/23/2025 COMP. METAB OLIC PANEL (14) bilirubin, total 0.3 mg/dL 0.0-1. 2 normal Not Available [facility] [address] [facility] [place], [address], 01/23/2025 08:12:19 01/23/20 25 01/23/2025 COMP. METAB OLIC PANEL (14) alkaline phosphatase 80 IU/L 44-121 normal Not Available [facility] [address] [facility] [place], [address], 01/23/2025 08:12:19 01/23/20 25 01/23/2025 COMP. METAB OLIC PANEL (14) AST (SGOT) 8 IU/L 0-40 normal Not Available [facility] [address] [place], [address], 01/23/2025 08:12:19 01/23/20 25 01/23/2025 COMP. METAB OLIC PANEL (14) ALT (SGPT) 5 IU/L 0-32 normal Not Available [facility] [address] [place], [address], 01/23/2025 08:12:19 01/23/20 25 01/23/2025 LIPID PANEL cholesterol, total 96 mg/dL 100-19 9 below low normal Not Available [facility] [address] [place], [address], 01/23/2025 08:12:20 01/23/20 25 01/23/2025 LIPID PANEL triglyceride s 90 mg/dL 0-149 normal Not Available [facility] [address] [place], [address], 01/23/2025 08:12:20 01/23/20 25 01/23/2025 LIPID PANEL HDL cholesterol 28 mg/dL >39 below low normal Not Available [facility] [address] [place], [address], 01/23/2025 08:12:20 01/23/20 25 01/23/2025 LIPID PANEL VLDL cholesterol dee 18 mg/dL 5-40 Not Available [facility] [address] [place], [address], 01/23/2025 08:12:20 01/23/20 25 01/23/2025 LIPID PANEL LDL chol calc ([facility]) 50 mg/dL 0-99 Not Available [facility] [address] [facility], [place], [address], 01/23/2025 08:12:20 01/23/20 25 01/23/2025 LIPID PANEL LDL calc comment: VIDEO EDITING INTERN Not Available [facility] [address] [place], [address], 01/23/2025 08:12:20 01/23/20 25 01/23/2025 VITAM IN B12 AND FOLAT E vitamin B12 367 pg/mL 232-12 45 normal Not Available [facility] [address] [place], [address], 01/23/2025 08:12:20 01/23/2001/23/2025 VITAM IN B12 AND FOLAT E folate (folic acid), serum 4.5 NG/mL >3.0 normal A serum folat e vicente ntrat ion of less than 3.1 ng/mL is consi dered to repre sent clini dee defic iency . Not Available [facility] [address] [place], [address], 01/23/2025 08:12:20 01/23/20 25 01/23/2025 HEMOG LOBIN A1C hemoglobin A1C 5.6 % 4.8-5. 6 normal Predi abete s: 5.7 - 6.4 Diabe leena: >6.4 Glyce suzanne contr ol for adult s with diabe leena: <7.0 Not Available [facility] [address] [facility], [place], [address], 01/23/2025 08:12:21 01/23/20 25 01/23/2025 VITAM IN [...] IOM (Inst itute of Medic ine). 2009. Dieta ry refer ence intak es for calci um and D. Melanie vargas [place]: The Natio nal [facility] Press . 2. Cirstiano amador MF, Elyssa poe [place], Veronica off-F errar i BOYD, et al. Evalu ation , treat ment, and preve ntion of vitam in D defic iency : an Endoc rine Socie ty clini dee pract ice guide line. JCEM. 2010; 96(7) :1911 -30. Not Available [facility] [address] [facility], [place], [address], 01/23/2025 08:12:21 07/03/20 24 07/03/2024 XR, chest No observ ation record ed. [address], [place], [address], 10/13/2024 15:26:47 07/04/20 24 07/03/2024 elect christine sosa am No observ ation record ed. [email or web address], [place], [address], 10/13/2024 15:27:04 07/06/20 24 07/03/2024 US, doppl er echoc ardio gram No observ ation record ed. [email or web address] [address], [place], [address], 10/13/2024 15:28:25 10/30/19 XR, foot, 3 or more view No observ ation record ed. [facility] [address], [place], [address], 11/02/2024 09:44:43 12/21/19 25 12/17/2024 stres s echoc ardio gram No observ ation record ed. [facility] [address], [place], [address], 12/23/2024 09:33:30 12/21/19 25 12/17/2024 stres s echoc ardio gram No observ ation record ed. [facility] [address], [place], [address], 12/23/2024 09:33:12 12/25/19 25 12/21/2024 stres s echoc ardio gram No observ ation record ed. [email or web address] [facility] [address], [place], [address], 12/25/2024 09:40:14 01/14/20 25 01/13/2025 XR, chest No observ ation record ed. [facility] [address], [place], [address], 01/15/2025 10:15:17 01/15/20 25 01/13/2025 pratik locke am ne ECG, 12 leads min No observ ation record ed. [facility] [address], [place], [address], 01/15/2025 10:15:33 01/15/20 25 01/13/2025 stres s echoc ardio gram No observ ation record ed. [email or web address] [facility] [address], [place], [address], 01/15/2025 10:15:45 01/16/20 25 01/14/2025 stres s echoc ardio gram No observ ation record ed. [facility] [address], [place], [place], [address], 01/15/2025 10:16:14 01/16/20 25 01/13/2025 elect rocar diogr am, routi ne ECG, 12 leads min No observ ation record ed. formerly [facility] [address], [place], [place], [address], 01/18/2025 10:44:21 01/19/20 25 01/15/2025 elect rocar diogr am, routi ne ECG, 12 leads min No observ ation record ed. [facility] [address], [place], [place], [address], 01/18/2025 10:41:44 03/05/20 25 03/05/2025 US, renal No observ ation record ed. (Radiology) [address], [place], [address], 03/16/2025 12:11:52 04/07/20 25 04/07/2025 XR, chest , 2 view No observ ation record ed. [email or web address] [facility] [address], [place], [address], 04/09/2025 11:52:00 04/08/20 25 04/07/2025 elect rocar diogr am, routi ne ECG, 12 leads min No observ ation record ed. [address], [place], [place], [address], 04/09/2025 13:11:16 04/08/2004/08/2025 US, doppl er echoc ardio gram No observ ation record ed. [address], [place], [place], [address], 04/09/2025 13:10:28 04/26/20 XR, knee, 3 view No observ ation record ed. [address], [place], [address], 05/03/2025 13:30:05 05/06/20 25 05/05/2025 XR, chest No observ ation record ed. [address], [place], [place], [address], 05/06/2025 17:38:38 06/07/2006/07/2025 XR, chest No observ ation record ed. [address], [place], [place], [address], 06/15/2025 10:17:22 06/08/2006/07/2025 elect christine sosa am No observ ation record ed. [address], [place], [place], [address], 06/15/2025 10:17:44 06/08/2006/08/2025 imagi ng/di agnos tic resul t No observ ation record ed. [place] [id number], [place], [place], [address], 06/15/2025 10:18:41 06/08/2006/08/2025 CT, angio gram, chest , w/ contr ast No observ ation record ed. [facility] [address], [place], [place], [address], 06/15/2025 10:19:06 Result Notes None recorded. Problems Name Problem SNOMED Code Status Onset Date Resolution Date Notes Provider Name and Address Organization Details Recorded Time Generalized anxiety disorder 07203298 Active 2023 [place] [employer] 11:02:08 Allergic rhinitis 51234856 Active 2023 [place] null, [employer] 11:02:31 Gastroesophage al reflux disease without esophagitis 885951764 Active 2023 [place] null, [employer] 11:02:05 Edema of lower extremity 189586740 Active 2023 [place] [employer] 11:01:59 Overactive urinary bladder 117502234 Active 2023 [place] null, [employer] 11:02:16 Chronic obstructive pulmonary disease 92977042 Active 2023 [place] null, [employer] 11:01:51 Hypothyroidism 60659431 Active 2023 [place] null, [employer] 5 11:02:10 Pain of multiple joints 20237277 Active 2023 [place] null, [employer] 5 11:02:20 Moderate recurrent major depression 31355756 Active 2023 [place] null, [employer] 5 11:02:13 Essential hypertension 70080138 Active 2023 [place] null, [employer] 5 11:02:02 Ulcer of lower extremity 07612894 Active 2023 Rey gandara, [employer] 11:02:26 Dyspnea 011802896 Active 2023 Rey gandara, [employer] 5 11:01:54 Paroxysmal atrial fibrillation 373714383 Active 2024 W/ RVR Rey gandara, [employer] 11:03:05 Chronic kidney disease stage 3 674170554 Active 2024 Rey gandara, [employer] 11:03:28 Problem Notes None recorded. Procedures Surgical History Date Name Laterality Status Provider Name and Address Organization Details Recorded Time procedure on hip joint completed Rey Wiseman [employer] 12/20/2023 14:59:22 Imaging Results None recorded. Procedure Notes None recorded. Medical Equipment None Reported. Allergies Allergen ID Allergen Name Allergen Category Reaction Reaction Severity Criticality Documentation Date Start Date Code Code System Note Provider Name and Address Organization Details Recorded Time 44605 cephalexi n medicatio n Not available Not available Not available 12/26/2023 2231 RxNorm Rey gandara, [employer] 15:56:24 95932 butalbita l medicatio n Not available Not available Not available 12/26/2023 39440 RxNorm Rey gandara, [employer] 15:56:35 32516 propoxyph will medicatio n Not available Not available Not available 12/26/2023 8785 RxNorm Rey gandara, [employer] 15:56:57 17687 tetracycl ine medicatio n Not available Not available Not available 12/26/2023 20063 RxNorm Rey gandara, [employer] 15:57:08 26413 Sudha medicatio n Not available Not available Not available 12/26/2023 90890 6 RxNorm Rey gandara, [employer] 15:57:24 73202 Claritin medicatio n Not available Not available Not available 12/26/2023 73179 6 RxNorm Rey gandara, [employer] 15:57:36 29228 Macrobid medicatio n Not available Not available Not available 12/26/2023 70331 1 RxNorm Rey gandara, [employer] 15:57:47 31119 doxycycli ne Not available Not available Not available Not available 12/26/2023 3640 RxNorm Rey gandara, [employer] 15:59:26 28471 pseudoeph edrine Not available Not available Not available Not available 12/26/2023 8896 RxNorm Rey gandara, [employer] 15:59:38 09796 guaifenes in medicatio n Not available Not available Not available 12/26/2023 5032 RxNorm Rey gandara, [employer] 15:59:49 32791 hydrocodo ne Not available Not available Not available Not available 12/26/2023 5489 RxNorm Rey gandara, [employer] 16:00:09 25884 Product containin g penicilli n (product) medicatio n Not available Not available Not available 12/26/2023 90070 8001 SNOMED Rey gandara, [employer] 16:00:16 19942 Substance with sulfonami de structure and antibacte rial mechanism of action (substanc e) medicatio n Not available Not available Not available 12/26/2023 76327 8003 SNOMED Rey gandara, [employer] 05/16/202 4 16:00:27 32716 iodine medicatio n Not available Not available Not available 12/26/2023 5933 RxNorm Rey gandara, [employer] 16:00:35 26568 Seldane medicatio n Not available Not available Not available 12/26/2023 89244 0 RxNorm Rey gandara, [employer] 16:00:44 76173 Midrin medicatio n Not available Not available Not available 12/26/2023 89261 RxNorm Rey gandara, [employer] 16:00:51 20787 fluticaso ne Not available Not available Not available Not available 12/26/2023 79325 RxNorm makes arthr itis worse Rey Wiseman [employer] 16:01:11 83501 codeine medicatio n Not available Not available Not available 12/26/2023 2670 RxNorm nervo us Rey gandara, [employer] 16:01:29 67465 mometason e furoate medicatio n Not available Not available Not available 12/26/2023 70795 RxNorm cough and sore throa t Rey gandara, [employer] 16:02:04 58333 clindamyc in Not available Not available Not available Not available 12/26/2023 2582 RxNorm GI Rey gandara, [employer] 16:02:45 68477 erythromy quan medicatio n Not available Not available Not available 12/26/2023 4053 RxNorm rash Rey gandara, [employer] 4 16:02:58 13165 Singulair medicatio n Not available Not available Not available 12/26/2023 99218 9 RxNorm red face and numbn ess Rey Wiseman [employer], [employer] 4 16:03:16 60468 Motrin medicatio n Not available Not available Not available 12/26/202340727 8 RxNorm GI Rey gandara, [employer] 4 16:03:32 76397 Naprosyn medicatio n Not available Not available Not available 12/26/202320291 2 RxNorm GI Rey gandara, [employer] 4 16:03:43 40718 Relafen medicatio n Not available Not available Not available 12/26/2023 51115 4 RxNorm GI eRy gandara, [employer] 4 16:04:04 49774 tramadol medicatio n Not available Not available Not available 12/26/2023 76913 RxNorm dizzi ness Rey gandara, [employer] 4 16:04:17 84963 imipramin e Not available Not available Not available Not available 12/26/2023 5691 RxNorm urina ry reten tion Rey gandara, [employer] 4 16:22:41 35179 lisinopri l medicatio n Not available Not available Not available 12/26/2023 92360 RxNorm cough Rey gandara, [employer] 4 16:22:51 80013 Paxil medicatio n Not available Not available Not available 12/26/2023 48120 8 RxNorm nervo usnes s Rey gandara, [employer] 4 16:23:06 20626 gatifloxa quan medicatio n Not available Not available Not available 12/26/2023 65800 6 RxNorm GI Rey gandara, [employer] 4 16:23:38 98281 fluticaso ne / salmetero l medicatio n Not available Not available Not available 12/26/2023 41506 5 RxNorm nose pain Rey gandara, [employer] 4 16:26:38 15874 Reglan medicatio n Not available Not available Not available 12/26/2023 9230 RxNorm const ipati on Rey gandara, [employer] 17:29:23 67973 clarithro mycin medicatio n Not available Not available Not available 12/26/2023 98318 RxNorm nervo usnes s Rey gandara, [employer] 17:29:44 23666 Zithromax medicatio n Not available Not available Not available 12/26/2023 79244 4 RxNorm Rey gandara, [employer] 17:29:55 20967 Mucinex medicatio n Not available Not available Not available 12/26/2023 72862 7 RxNorm Rey gandara, [employer] 17:30:01 94686 gabapenti n medicatio n Not available Not available Not available 12/26/2023 86574 RxNorm swell ing of legs Rey gandara, [employer] 4 17:30:19 77831 baclofen medicatio n Not available Not available Not available 12/26/2023 1292 RxNorm unabl e to contr ol bladd er Rey gandara, [employer] 4 17:30:45 35486 allopurin ol medicatio n Not available Not available Not available 12/26/2023 519 RxNorm urina ry incon t Rey Wiseman [employer], [employer] 4 17:31:45 11696 Colcrys medicatio n Not available Not available Not available 12/26/2023 63998 8 RxNorm Rey gandara, [employer] 17:31:53 15622 Uloric medicatio n Not available Not available Not available 12/26/2023 83748 6 RxNorm Rey gandara, [employer] 4 17:31:59 70382 probeneci d medicatio n Not available Not available Not available 12/26/2023 8698 RxNorm Rey gandara, [employer] 4 17:32:07 57053 azithromy quan medicatio n other Not available low 06/25/20252020 11018 RxNorm Not Available [employer] - [employer] - prod 5 11:38:44 30977 colchicin e medicatio n diarrhea Not available low 06/25/20252020 2683 RxNorm Not Available [employer] - [employer] - prod 5 11:38:44 44534 fexofenad ine medicatio n other Not available low 06/25/20252020 62482 RxNorm Not Available [employer] - [employer] - prod 5 11:38:[address] medicatio n other Not available high 06/25/20252020 08334 RxNorm face red and numb Not Available [employer] - [employer] - prod 5 11:38:44 88941 ibuprofen medicatio n Not available Not available low 06/25/20252020 5640 RxNorm unrec ogniz ed react ion (text : GI Intol eranc e, code: [id number]) (from exter nal sourc e) Not Available [employer] - [employer] - prod 5 11:38:44 67017 naproxen medicatio n Not available Not available low 06/25/20252020 7258 RxNorm unrec ogniz ed react ion (text : GI Intol eranc e, code: 44602 4005) (from exter nal sourc e) Not Available [employer] - [employer] - prod 5 11:38:44 65003 paroxetin e Not available anxiety Not available low 06/25/20252020 02085 RxNorm Not Available [employer] - [employer] - prod 11:38:44 07267 prednison e medicatio n other Not available low 06/25/20252020 8640 RxNorm Not Available [employer] - prod 5 11:38:44 85207 metoclopr amide Not available other Not available low 06/25/20252020 6915 RxNorm Const ipati on Not Available [employer] - [employer] - prod 11:38:44 93864 nabumeton e medicatio n Not available Not available low 06/25/20252020 87513 RxNorm unrec ogniz ed react ion (text : GI Intol eranc e, code: 16841 [id number]) (from exter nal [facility] e) Not Available [employer] - [employer] - prod 5 11:38:44 65580 febuxosta t medicatio n other Not available low 06/25/20252020 50436 RxNorm Weakn ess Not Available [employer] - [employer] - prod 5 11:38:44 84751 fluticaso ne / salmetero l medicatio n Not available Not available Not available 06/25/2025 95979 5 RxNorm Not Available [employer] - [employer] - prod 5 11:39:13 36773 acetamino phen / hydrocodo ne medicatio n Not available Not available Not available 06/25/2025 12315 2 RxNorm Not Available [employer] - [employer] - prod 5 11:39:13 84906 nitrofura ntoin, macrocrys tals / nitrofura ntoin, monohydra te medicatio n Not available Not available Not available 06/25/2025 19484 2 RxNorm Not Available [employer] - prod 5 11:39:13 Medications [...] 91 % 3 112/69 mm[Hg] Rey Wiseman [employer]. 13:10:51 Date Recorded Body height Heart rate Oxygen saturation Systolic And Diastolic Provider Name and Address Organization Details Last Updated DateTime 01/22/2025 152.4 cm 62 /min 91 % 111/67 mm[Hg] Rey Wiseman [employer]. 01/22/2025 11:23:44 Date Recorded Body height Heart rate Oxygen saturation Systolic And Diastolic Provider Name and Address Organization Details Last Updated DateTime 03/09/2025 152.4 cm 54 /min 92 % 103/64 mm[Hg] Rey Wiseman [employer]. 03/09/2025 11:18:45 Date Recorded Body height Provider Name an d Address Organization Details Last Updated DateTime 04/23/2025 152.4 cm Rey Wiseman [employer] 04/23/2025 14:38:27 Date Recorded Body mass index (BMI) Body weight Heart rate Oxygen saturation Systolic And Diastolic Provider Name and Address Organization Details Last Updated DateTime 04/23/2025 32.4 kg/m2 49740.33 g 71 /min 86 % 115/56 mm[Hg] Katie Cruz [employer]. 14:46:43 Date Recorded Body height Heart rate Oxygen saturation Systolic And Diastolic Provider Name and Address Organization Details Last Updated DateTime 07/30/2024 152.4 cm 61 /min 97 % 108/76 mm[Hg] Rey Wiseman [employer] 07/30/2024 11:46:01 Social History Question Answer Notes LastModified by Organizat ion Details LastModified Time Tobacco Smoking Status Never Smoker Rey gand[employer]Flyzik. 12/20/2023 14:57:36 Are You Blind Or Do You Have Difficulty Seeing? No [email or web address] Information n ot available 03/31/2024 What Is Your Level Of Caffeine Consumption? None Information not available 12/20/2023 Are You A Caregiver? No [email or web address] Information not available 03/31/2024 In The 14 [...] Do You Have Serious Difficulty Hearing? No Information not available 03/31/2024 What Type Of Diet Are You Following? REGULAR [email or web address] Information n ot available 03/31/2024 Have There Been Any Changes To Your Family Or Social Situation? No [email or web address] Information no t available 03/31/2024 What Was The Date Of Your Most Recent Tobacco Screening? 04/23/2025 Information not available 04/23/2025 What Is Your Relationship Status? Information not available 12/20/2023 Do You Use Your Seat Belt Or Car Seat Routinely? Yes Information not available 12/20/2023 Are You Sexually Active? No [email or web address] Information not available 03/31/2024 Do You Participate In Social Media? No [email or web address] Information not available 03/31/2024 Has Tobacco Cessation Counseling Been Provided? No [email or web address] Information not available 03/31/2024 Have You Recently Traveled Abroad? No Information not available 12/20/2023 Do You Have Difficulty Walking Or Climbing Stairs? Yes [email or web address] Information not available 03/31/2024 Are You Currently In School? No [email or web address] Information not available 03/31/2024 Do You Have Any Dietary Restrictions? No Information not available 03/31/2024 Sex: Female Functional Status Question Answer Note LastModified by Organizat ion Details LastModified Time Do you use any illicit or recreational drugs? No Information not available 12/20/2023 Do you or have you ever used any other forms of tobacco or nicotine? No [email or web address] Information not available 03/31/2024 What is your level of alcohol consumption? None [email or web address] Information not available 03/31/2024 Are you currently employed? No [email or web address] Information not available 03/31/2024 Do you have transportation difficulties? No [email or web address] Information not available 03/31/2024 Are you able to walk independently without assistance or assistive devices? [email or web address] Information not available 03/31/2024 Do you have difficulty doing errands alone? Yes [email or web address] Information not available 03/31/2024 Are you able to care for yourself independently? Yes Information not available 03/31/2024 Do you have difficulty dressing, bathing, grooming, or toileting? Yes Information not available 03/31/2024 Mental Status Question Answer Note LastModified by Organization D etails LastModified Time Do you have difficulty concentrating, remembering or making decisions? No [email or web address] Information no t available 03/31/2024 Family History [...] cancelled patient objection Maria Luz Johnson APRN [address] [place] [address], [address], [facility] [employer] 10/29/2024 13:45:04 pneumococcal polysaccharide PPV23 025 cancelled patient objection Maria Luz Johnson APRN [address] [place] [address], [address], [facility] [employer] 10/29/2024 13:45:04 COVID-19 vaccine, vector-nr, rS-Ad26, PF, 0.5 mL 021 completed Not Available [facility] 04/23/2025 14:35:02 Past Encounters Encounter ID Performer Location Encounter Start Date Encounter Closed Date Diagnosis/Indication Diagnosis SNOMED-CT Code Diagnosis ICD10 Code Diagnosis IMO Codes Diagnosis Note [id number] Maria Luz Johnson [address] [address] 12/20/2023 14:09:21 12/20/2023 17:08:21 Atopic dermatitis 43424730 L20.9 Dysuria 75145818 R30.0 Fatigue 06089594 R53.83 Hyperlipidemia 45141970 E78.5 Hyperglycemia 39160012 R 73.9 Vitamin D deficiency 347 23385 E55.9 Vitamin B deficiency 479 15089 E53.9 Otitis ext bianca of left ear 0198123806 554828 H60.92 Peripheral vascular disease 204095749 I73.9 Generalize d anxiety disorder 86232924 F41.1 Allergic rhinitis 093316 04 J30.9 Gastroesop hageal reflux disease without esophagitis 000180952 K21.9 Edema of l ower extremity 483581976 R60.0 Overactive urinary bladder 841767495 N32.81 Chronic ob structive pulmonary disease 42324014 J44.9 Hypothyroidism 91250287 E03.9 Pain of mu ltiple joints 40783232 M25.50 Moderate r ecurrent major depression 55850088 F33.1 Essential hypertension 02840610 I10 Acute urin kory tract infection 196663924 N39.0 Body mass index 30+ - obesity 736733748 Z68.36 [id number] Maria Luz Johnson[address] [address] 03/31/2024 11:24:03 03/31/2024 13:44:56 Lower respiratory tract infection 62684981 J22 Generalize d anxiety disorder 78879009 F41.1 Allergic rhinitis 783584 04 J30.9 Gastroesop hageal reflux disease without esophagitis 944252317 K21.9 Edema of l ower extremity 721160390 R60.0 Overactive urinary bladder 813404179 N32.81 Chronic ob structive pulmonary disease 77590717 J44.9 Hypothyroidism 55051523 E03.9 Pain of mu ltiple joints 05911930 M25.50 pt states she can take meloxicam Moderate r ecurrent major depression 30616023 F33.1 Essential hypertension 87172042 I10 Infection of skin 649741 000 L08.9 Peripheral vascular disease 816225559 I73.9 Body mass index 30+ - obesity 343651577 Z68.36 [id number] Maria Luz Johnson[address] [address] 04/28/2024 08:58:15 04/28/2024 10:12:52 Cough 29191355 R05.9 Generalize d anxiety disorder 29589698 F41.1 Allergic rhinitis 025169 04 J30.9 Gastroesop hageal reflux disease without esophagitis 199205124 K21.9 Edema of l ower extremity 798267268 R60.0 Overactive urinary bladder 732321197 N32.81 Hypothyroidism 20509772 E03.9 Pain of mu ltiple joints 26375864 M25.50 pt states she can take meloxicam Moderate r ecurrent major depression 27183155 F33.1 Essential hypertension 05043667 I10 Body mass index 30+ - obesity 355081808 Z68.36 [id number] [place] [address] 07/03/2024 11:03:45 07/03/2024 12:07:48 Dyspnea 325354828 R06.00 Oxygen sat uration below reference range 797152780 R79.81 Body mass index 30+ - obesity 035447033 Z68.36 [id number] [place] [address] 07/30/2024 10:54:28 07/30/2024 12:44:07 Fatigue 30137174 R53.83 Hyperlipidemia 82961379 E78.5 Iron defic iency anemia 85042298 D50.9 Congestive heart failure 56753113 I50.9 Hypoglycemia 964940875 E 16.2 Generalize d anxiety disorder 90148731 F41.1 Allergic rhinitis 255415 04 J30.9 Gastroesop hageal reflux disease without esophagitis 596852828 K21.9 Overactive urinary bladder 349240893 N32.81 Pain of mu ltiple joints 62533616 M25.50 pt states she can take meloxicam Moderate r ecurrent major depression 98850525 F33.1 Hypothyroidism 17022038 E03.9 Essential hypertension 79696717 I10 Ulcer of l ower extremity 59712070 L97.909 telfa, Kerlix, and EVELIO bandage applied. Body mass index 30+ - obesity 965464126 Z68.36 Dyspnea 888039187 R06.00 Patient's O2 ran out while in office, 2 L given to her out of our oxygen tank. [employer] came to office and changed portable tank for her. [id number] Maria Luz Johnson, [place] [address] 10/29/2024 12:53:07 10/29/2024 16:09:16 Adult health examination 578294242 Z00.00 Osteoporos is screening declined 4552292206 93851 Z53.20 Vaccine de clined by patient 4661603336 02 Z28.20 Pain in right foot 62480 15827 26057 M79.671 Congestive heart failure 77724682 I50.9 Generalize d anxiety disorder 97138280 F41.1 Allergic rhinitis 478916 04 J30.9 Low back pain 903492082 M54.50 Gastroesop hageal reflux disease without esophagitis 519120440 K21.9 Overactive urinary bladder 707185547 N32.81 Chronic ob structive pulmonary disease 97433453 J44.9 Hypothyroidism 86129573 E03.9 Pain of mu ltiple joints 97656038 M25.50 pt states she can take meloxicam Moderate r ecurrent major depression 74034546 F33.1 Essential hypertension 79612021 I10 Body mass index 30+ - obesity 621243412 Z68.36 [id number] Maria Luz Johnson, [place] [phone] 01/22/2025 10:53:41 01/22/2025 11:44:34 Fatigue 61370529 R53.83 1771578 Mixed hyperlipidemia 267 814585 E78.2 11402 Hyperglycemia 64240368 R 73.9 23242 Vitamin D deficiency 347 35097 E55.9 98604 Cobalamin deficiency 190 970251 E53.8 54308 Loss of taste 42716247 R 43.2 228319 Congestive heart failure 06597339 I50.9 Generalize d anxiety disorder 00326033 F41.1 Allergic rhinitis 333700 04 J30.9 Gastroesop hageal reflux disease without esophagitis 861012885 K21.9 Overactive urinary bladder 834608819 N32.81 Chronic ob structive pulmonary disease 76964180 J44.9 Hypothyroidism 30074208 E03.9 Pain of mu ltiple joints 69091123 M25.50 pt states she can take meloxicam Moderate r ecurrent major depression 70203834 F33.1 Body mass index 30+ - obesity 263280062 Z68.36 901405 Hyperkalemia 60950119 E8 7.5 9805 Pneumonia 425352825 J18. 9 5467787954 [id number] [place] [address] 03/09/2025 10:53:36 03/09/2025 12:05:12 Congestive heart failure 14454468 I50.9 Generalize d anxiety disorder 19061099 F41.1 Allergic rhinitis 912003 04 J30.9 Low back pain 887075439 M54.50 Thrombocyt openic disorder 716308110 D69.6 42582 Body mass index 30+ - obesity 921847932 Z68.36 769587 [id number] [place] [address] 04/23/2025 14:32:25 04/23/2025 15:43:16 Lower respiratory tract infection 38023855 J22 Candidiasis of vagina 72 074169 B37.31 428034 Allergic rhinitis 839103 04 J30.9 Pain of ri ght knee joint 9144080482 92083 M25.561 089008 Ulcer of l ower extremity 31967373 L97.912 L97.922 86943287 Body mass index 30+ - obesity 397475229 Z68.32 714578 Health Concerns Section Related Observation LastModified by Organization Detai ls LastModified Time None Recorded Concern Status LastModified by Organization Details LastModified Time None Recorded Advance Directives Directive None Recorded Payers Insurance Date Sequence Insurance Name Policy Number Policy Mayorga Covered Member ID Mayorga Member ID Guarantor Name 12/20/2023 1 *SELF PAY* Otis kris Bliss 06/26/2025 [place] [facility] Lian Keenan Bliss [id number] Lian Bliss 06/26/2025 1 [employer] (MEDICARE REPLACEMENT/A DVANTAGE - HMO) Lian Bliss [id number] Lian Bliss Notes Date Note Type Note [...] her empty one at home. Rey gandara, [employer] 07/30/2024 13:43:27 10/29/2024 text/html pt here today for AWV and medication refills. pt states shes doing well on medication refills but BLE wounds are getting worse and painful. pt was sent to wound care at [facility] on 10/09/24 however pt states that [...] if they can help pt. Maria Luz Johnson, [address] [place], [address], [employer] 10/29/2024 14:00:26 01/22/2025 text/html pt here today [...] someone is supposed to come tomorrow from [place] and change her leg dsg. Maria Luz Johnson APRN [address] [facility], [place], [address], [employer], [employer]. 01/22/2025 12:46:25 03/09/2025 text/html pt here today [...] with home health. Maria Luz Johnson APRN [address] [facility], [place], [address], [facility] [employer] 03/09/2025 15:39:57 04/23/2025 text/html pt here [...] pt states that the wound care at [facility] told her that she needed home health. i will refer to another wound care facility. Maria Luz Johnson APRN [address] [facility], [place], [address], [facility] [employer] 04/23/2025 16:53:01 OBGyn Episode No OBEpisode recorded.
--- OUTSIDE RECORDS SUMMARY | 2025-07-14 11:24 | XMS_ITS | Referral Summary ---
Author Organization [employer] ([place], [place], [place], [place], [place]) Address [address] [place] [address] Care Team Providers Care Roofer Helper Name Role Phone Ted Matute MD Primary Care Provider [phone] Ted Matute MD Unavailable [phone] Social History Tobacco Use Types Packs/Day Years Used Date Smoking Tobacco: Never Assessed Comments Unknown Sex and Gender Information Value Date Recorded Sex Assigned at Not on file Legal Sex Female 3:57 PM CDT Gender Identity Not on file Sexual Orientation Not on file Plan of Treatment Not on file Insurance MEDICAID OF [place] [facility] Care Teams Roofer Helper Relationship Specialty Start Date End Date Ted Matute MD [address] [place] [address] [place] [address] PCP - General Family Medicine 05/20/23 Ted Matute MD [address] [place] [address] [place] [address] Referring Physician Family Medicine 05/20/23
--- OUTSIDE RECORDS SUMMARY | 2025-07-14 11:24 | XMS_ITS | Encounter Summary ---
Author Organization [employer] ([place], [place], [place], [place], [place]) Address [address] [place] [address] Care Team Providers Care Nurse Examiner Name Role Phone Ted Matute MD Primary Care Provider + [phone] Ted Matute MD Unavailable [phone] Encounter Details Date Type Department Care Team (Late st Contact Info) Description 09/28/2024 Lab Requisition [facility] [address] [place] [address] Maria Luz Johnson, [employer] [address] [address] Sepsis, unspecified organism (HCC) Social [...] (HCC) documented in this encounter Care Teams Nurse Examiner Relationship Specialty Start Date End Date Ted Matute MD [address] [facility] [address] [place] [address] PCP - General Family Medicine 05/20/23 Ted Matute MD [address] [facility] [address] [place] [address] Referring Physician Family Medicine 05/20/23 documented as of this encounter
--- OUTSIDE RECORDS SUMMARY | 2025-07-14 11:24 | XMS_ITS | Continuity of Care Document ---
Author Organization [place] - [employer], [facility] Address [address] [place] [phone] Assessment No assessment recorded. Plan of Treatment Reminders Order Date Submit Date Provider Last Modified By Organization Details Last Modified Time Details Appointments TRANSP ORTATI ON 2024 01:00P M Transporter Not available Not available Not available FOLLOW UP 15 2024 01:30P M Jackeline Johnson APRN Not available Not available Not available Lab None record ed. Referral wound care referr al [address] [facility] [address], [place], [address], 05/25/2025 14:31:23 Procedures None record ed. Surgeries None record ed. Imaging XR, knee, 3 view 2024 025 [facility], [address] [place] [address], [phone], 04/27/2025 11:03:39 Medication Orders cetiri zine 10 mg tablet 2024 025 [facility], [address] [place] [address], [id number], 04/23/2025 16:17:01 azithr omycin 250 mg tablet 2024 025 [facility], [address] [place] [address], [id number], 04/23/2025 16:26:19 flucon azole 150 mg tablet 2024 025 [facility], [facility], [place], [address], 04/23/2025 16:26:20 Patient TargetsNo targets recorded. Patient InstructionsNo instructions recorded. Reason for Referral Referring Physician: Sparkle Johnson, Family Medicine, Encounter Date: 04/23/2025 Results Created Date Observation Date Name Description Value Unit Range Abnormal Flag Note LastModifiedBy Organization Detail LastModifiedTime 04/07/2004/07/2025 XR, chest , 2 view No observ ation record ed. [facility] [address], [place], [address], 04/09/2025 11:52:00 04/08/20 25 04/07/2025 elect christine sosa am, routi ne ECG, 12 leads min No observ ation record ed. [facility] [address], [place], [address], 04/09/2025 13:11:16 04/08/20 25 04/08/2025 US, doppl er echoc ardio gram No observ ation record ed. [address], [place], [address], 04/09/2025 13:10:28 04/26/20 25 XR, knee, 3 view No observ ation record ed. [address], [place], [address], 05/03/2025 13:30:05 05/06/20 25 05/05/2025 XR, chest No observ ation record ed. [address], [place], [address], 05/06/2025 17:38:38 06/07/20 25 06/07/2025 XR, chest No observ ation [place] ed. [place] [address], [place], [address], 06/15/2025 10:17:22 06/08/2006/07/2025 starr sosa am No observ ation record ed. [address], [place], [address], 06/15/2025 10:17:44 06/08/2006/08/2025 imagi ng/di agnos tic resul t No observ ation record ed. [address], [place], [address], 06/15/2025 10:18:41 06/08/2006/08/2025 CT, angio gram, chest , w/ contr ast No observ ation record ed. [address], [place], [address], 06/15/2025 10:19:06 Result Notes None recorded. Problems Name Problem SNOMED Code Status Onset Date Resolution Date Notes Provider Name and Address Organization Details Recorded Time Generalized anxiety disorder 11214119 Active 2023 Randi gandara [employer] 5 11:02:08 Allergic rhinitis 23342835 Active 2023 Randi gandara [employer] 5 11:02:31 Gastroesophage al reflux disease without esophagitis 365745221 Active 2023 Randi gandara [employer] 5 11:02:05 Edema of lower extremity 385187683 Active 2023 Randi gandara [employer] 5 11:01:59 Overactive urinary bladder 757190554 Active 2023 Randi gandara [employer] 5 11:02:16 Chronic obstructive pulmonary disease 63892469 Active 2023 Randi gandara, [employer] 5 11:01:51 Hypothyroidism 36636387 Active 2023 Randi gandara, [employer] 5 11:02:10 Pain of multiple joints 71726676 Active 2023 Randi Wiseman [employer], [employer] 5 11:02:20 Moderate recurrent major depression 15551685 Active 2023 Randi Wiseman [employer], [employer] 5 11:02:13 Essential hypertension 06280064 Active 2023 Randi Wiseman [employer], [employer] 5 11:02:02 Ulcer of lower extremity 09382613 Active 2023 Randi Wiseman [employer], [employer] 11:02:26 Dyspnea 442114188 Active 2023 Randi Wiseman [employer], [employer] 5 11:01:54 Paroxysmal atrial fibrillation 146554101 Active 2024 W/ RVR Randi Wiseman [employer], [employer] 5 11:03:05 Chronic kidney disease stage 3 838679812 Active 2024 Randi Wiseman [employer], [employer] 5 11:03:28 Problem Notes None recorded. Procedures Surgical History Date Name Laterality Status Provider Name and Address Organization Details Recorded Time procedure on hip joint completed Randi Wiseman [employer] 12/20/2023 14:59:22 Imaging Results None recorded. Procedure Notes None recorded. Medical Equipment None Reported. Allergies Allergen ID Allergen Name Allergen Category Reaction Reaction Severity Criticality Documentation Date Start Date Code Code System Note Provider Name and Address Organization Details Recorded Time 94296 cephalexi n medicatio n Not available Not available Not available 12/26/2023 2231 RxNorm Randi gandara, [employer] 4 15:56:24 08907 butalbita l medicatio n Not available Not available Not available 12/26/2023 07049 RxNorm Randi gandara, [employer] 4 15:56:35 98182 propoxyph will medicatio n Not available Not available Not available 12/26/2023 8785 RxNorm Randi gandara, [employer] 15:56:57 81521 tetracycl ine medicatio n Not available Not available Not available 12/26/2023 67917 RxNorm Randi gandara, [employer] 4 15:57:08 25901 Sudha medicatio n Not available Not available Not available 12/26/2023 58963 6 RxNorm Randi gandara, [employer] 4 15:57:24 71415 Claritin medicatio n Not available Not available Not available 12/26/2023 08150 6 RxNorm Randi gandara, [employer] 4 15:57:36 18045 Macrobid medicatio n Not available Not available Not available 12/26/2023 17631 1 RxNorm Randi gandara, [employer] 4 15:57:47 98311 doxycycli ne Not available Not available Not available Not available 12/26/2023 3640 RxNorm Randi gandara, [employer] 4 15:59:26 72578 pseudoeph edrine Not available Not available Not available Not available 12/26/2023 8896 RxNorm Randi gandara, [employer] 4 15:59:38 76582 guaifenes in medicatio n Not available Not available Not available 12/26/2023 5032 RxNorm Randi gandara, [employer]. 15:59:49 46280 hydrocodo ne Not available Not available Not available Not available 12/26/2023 5489 RxNorm Randi gandara, [employer] 16:00:09 24421 Product containin g penicilli n (product) medicatio n Not available Not available Not available 12/26/2023 97444 8001 SNOMED Randi gandara, [employer] 16:00:16 88522 Substance with sulfonami de structure and antibacte rial mechanism of action (substanc e) medicatio n Not available Not available Not available 12/26/2023 26474 8003 SNOMED Randi gandara, [employer] 16:00:27 50715 iodine medicatio n Not available Not available Not available 12/26/2023 5933 RxNorm Randi gandara, [employer] 16:00:35 59704 Seldane medicatio n Not available Not available Not available 12/26/2023 43601 0 RxNorm Randi gandara, [employer] 16:00:44 80300 Midrin medicatio n Not available Not available Not available 12/26/2023 45528 RxNorm Randi gandara, [employer] 16:00:51 23884 fluticaso ne Not available Not available Not available Not available 12/26/2023 98114 RxNorm makes arthr itis worse Randi gandara, [employer]. 16:01:11 26037 codeine medicatio n Not available Not available Not available 12/26/2023 2670 RxNorm nervo us Randi gandara, [employer] 16:01:29 58382 mometason e furoate medicatio n Not available Not available Not available 12/26/2023 40759 RxNorm cough and sore throa t Randi gandara, [employer] 4 16:02:04 82710 clindamyc in Not available Not available Not available Not available 12/26/2023 2582 RxNorm GI Randi gandara, [employer] 4 16:02:45 75772 erythromy quan medicatio n Not available Not available Not available 12/26/2023 4053 RxNorm rash Randi gandara, [employer] 16:02:58 75662 Singulair medicatio n Not available Not available Not available 12/26/2023 66064 9 RxNorm red face and numbn ess Randi gandara, [employer] 4 16:03:16 43910 Motrin medicatio n Not available Not available Not available 12/26/2023 71882 8 RxNorm GI Randi gandara, [employer] 4 16:03:32 51311 Naprosyn medicatio n Not available Not available Not available 12/26/202320291 2 RxNorm GI Randi gandara, [employer] 4 16:03:43 45334 Relafen medicatio n Not available Not available Not available 12/26/202379390 4 RxNorm GI Randi gandara, [employer] 4 16:04:04 62948 tramadol medicatio n Not available Not available Not available 12/26/2023 51232 RxNorm dizzi ness Randi Wiseman [employer], [employer] 4 16:04:17 93711 imipramin e Not available Not available Not available Not available 12/26/2023 5691 RxNorm urina ry reten tion Randi gandara, [employer] 4 16:22:41 33516 lisinopri l medicatio n Not available Not available Not available 12/26/2023 25294 RxNorm cough Randi gandara, [employer] 4 16:22:51 46793 Paxil medicatio n Not available Not available Not available 12/26/2023 35041 8 RxNorm nervo usnes s Randi gandara, [employer] 4 16:23:06 25254 gatifloxa quan medicatio n Not available Not available Not available 12/26/2023 52871 6 RxNorm GI Randi gandara, [employer] 16:23:38 67608 fluticaso ne / salmetero l medicatio n Not available Not available Not available 12/26/2023 20567 5 RxNorm nose pain Randi gandara, [employer] 4 16:26:38 82610 Reglan medicatio n Not available Not available Not available 12/26/2023 9230 RxNorm const ipati on Randi gandara, [employer] 17:29:23 55951 clarithro mycin medicatio n Not available Not available Not available 12/26/2023 76458 RxNorm nervo pedro s Randi gandara, [employer] 17:29:44 68122 Zithromax medicatio n Not available Not available Not available 12/26/2023 08801 4 RxNorm Randi gandara, [employer] 4 17:29:55 53788 Mucinex medicatio n Not available Not available Not available 12/26/2023 85649 7 RxNorm Randi gandara, [employer] 17:30:01 76076 gabapenti n medicatio n Not available Not available Not available 12/26/2023 65603 RxNorm swell ing of legs Randi gandara, [employer] 4 17:30:19 00550 baclofen medicatio n Not available Not available Not available 12/26/2023 1292 RxNorm unabl e to contr ol bladd er Randi gandara, [employer] 4 17:30:45 74288 allopurin ol medicatio n Not available Not available Not available 12/26/2023 519 RxNorm urina ry incon t Randi gandara, [employer] 4 17:31:45 24836 Colcrys medicatio n Not available Not available Not available 12/26/2023 63004 8 RxNorm Randi gandara, [employer] 4 17:31:53 31840 Uloric medicatio n Not available Not available Not available 12/26/2023 65603 6 RxNorm Randi gandara, [employer] 4 17:31:59 57365 probeneci d medicatio n Not available Not available Not available 12/26/2023 8698 RxNorm Randi gandara, [employer] 4 17:32:07 67425 azithromy quan medicatio n other Not available low 06/25/20252020 86241 RxNorm Not Available [employer] - prod 5 11:38:44 97339 colchicin e medicatio n diarrhea Not available low 06/25/20252020 2683 RxNorm Not Available [employer] - prod 5 11:38:44 17417 fexofenad ine medicatio n other Not available low 06/25/20252020 61692 RxNorm Not Available [employer] - prod 5 11:38:[address] medicatio n other Not available high 06/25/20252020 54045 RxNorm face red and numb Not Available [employer] - prod 5 11:38:44 94488 ibuprofen medicatio n Not available Not available low 06/25/20252020 5640 RxNorm unrec ogniz ed react ion (text : GI Intol eranc e, code: 90810 4005) (from exter nal sourc e) Not Available [employer] - prod 5 11:38:44 23883 naproxen medicatio n Not available Not available low 06/25/20252020 7258 RxNorm unrec ogniz ed react ion (text : GI Intol eranc e, code: 84557 4005) (from exter nal sourc e) Not Available [employer] - prod 5 11:38:44 16730 paroxetin e Not available anxiety Not available low 06/25/20252020 84276 RxNorm Not Available [employer] - prod 5 11:38:44 70844 prednison e medicatio n other Not available low 06/25/20252020 8640 RxNorm Not Available [employer] - prod 5 11:38:44 17634 metoclopr amide Not available other Not available low 06/25/20252020 6915 RxNorm Const ipati on Not Available [employer] - prod 5 11:38:44 71980 nabumeton e medicatio n Not available Not available low 06/25/20252020 98875 RxNorm unrec ogniz ed react ion (text : GI Intol eranc e, code: 57919 4005) (from exter nal sour e) Not Available [employer] - prod 5 11:38:44 48653 febuxosta t medicatio n other Not available low 06/25/20252020 42822 RxNorm Weakn ess Not Available [employer] - prod 5 11:38:44 27681 fluticaso ne / salmetero l medicatio n Not available Not available Not available 06/25/2025 64649 5 RxNorm Not Available [facility] [employer] - prod 5 11:39:13 66958 acetamino phen / hydrocodo ne medicatio n Not available Not available Not available 06/25/2025 79512 2 RxNorm Not Available [employer] - prod 5 11:39:13 67399 nitrofura ntoin, macrocrys tals / nitrofura ntoin, monohydra te medicatio n Not available Not available Not available 06/25/2025 22102 2 RxNorm Not Available [employer] - External [employer] - [facility] 11:39:13 Medications Name Sig Start Date Stop [...] active Not Available Not Available Not Avai labgail Eliquis 5 mg tablet TAKE 1 TABLET [...] Details Last Updated DateTime 04/23/2025 152.4 cm Rnadi Smileyy [employer] 04/23/2025 14:38:27 Date Recorded Body mass index (BMI) Body weight Heart rate Oxygen saturation Systolic And Diastolic Provider Name and Address Organization Details Last Updated DateTime 04/23/2025 32.4 kg/m2 21608.33 g 71 /min 86 % 115/56 mm[Hg] Katie Montgomeryon [employer] 14:46:43 Social History Question Answer Notes LastModified by Organizat ion Details LastModified Time Tobacco Smoking Status Never Smoker Randi Wiseman nichol [employer] 12/20/2023 14:57:36 Are You Blind Or Do You Have Difficulty Seeing? No [email or web address] Information n ot available 03/31/2024 What Is Your Level Of Caffeine Consumption? None Information not available 12/20/2023 Are You A Caregiver? No [email or web address] Information not available 03/31/2024 In The 14 [...] Do You Have Serious Difficulty Hearing? No [email or web address] Information not available 03/31/2024 What Type Of Diet Are You Following? REGULAR [email or web address] Information n ot available 03/31/2024 Have There Been Any Changes To Your Family Or Social Situation? No [email or web address] Information no t available 03/31/2024 What Was The Date Of Your Most Recent Tobacco Screening? 04/23/2025 Information not available 04/23/2025 What Is Your Relationship Status? Information not available 12/20/2023 Do You Use Your Seat Belt Or Car Seat Routinely? Yes Information not available 12/20/2023 Are You Sexually Active? No [email or web address] Information not available 03/31/2024 Do You Participate In Social Media? No Information not available 03/31/2024 Has Tobacco Cessation Counseling Been Provided? No [email or web address] Information not available 03/31/2024 Have You Recently Traveled Abroad? No Information not available 12/20/2023 Do You Have Difficulty Walking Or Climbing Stairs? Yes [email or web address] Information not available 03/31/2024 Are You Currently In School? No [email or web address] Information not available 03/31/2024 Do You Have Any Dietary Restrictions? No Information not available 03/31/2024 Sex: Female Functional Status Question Answer Note LastModified by Organizat ion Details LastModified Time Do you use any illicit or recreational drugs? No Information not available 12/20/2023 Do you or have you ever used any other forms of tobacco or nicotine? No [email or web address] Information not available 03/31/2024 What is your level of alcohol consumption? None [email or web address] Information not available 03/31/2024 Are you currently employed? No [email or web address] Information not available 03/31/2024 Do you have transportation difficulties? No [email or web address] Information not available 03/31/2024 Are you able to walk independently without assistance or assistive devices? NOINDWHEEL [email or web address] Information not available 03/31/2024 Do you have difficulty doing errands alone? Yes [email or web address] Information not available 03/31/2024 Are you able to care for yourself independently? Yes [email or web address] Information not available 03/31/2024 Do you have difficulty dressing, bathing, grooming, or toileting? Yes [email or web address] Information not available 03/31/2024 Mental Status Question Answer Note LastModified by Organization D etails LastModified Time Do you have difficulty concentrating, remembering or making decisions? No [email or web address] Information no t available 03/31/2024 Family History [...] cancelled patient objection Maria Luz Johnson APRN [address] [place] [address], [phone], [facility] [employer] 10/29/2024 13:45:04 pneumococcal polysaccharide PPV23 025 cancelled patient objection Maria Luz Johnson APRN [address] [place] [address], [phone], [facility] [employer] 10/29/2024 13:45:04 COVID-19 vaccine, vector-nr, rS-Ad26, PF, 0.5 mL 021 completed Not Available [facility] 04/23/2025 14:35:02 Past Encounters Encounter ID Performer Location Encounter Start Date Encounter Closed Date Diagnosis/Indication Diagnosis SNOMED-CT Code Diagnosis ICD10 Code Diagnosis IMO Codes Diagnosis Note [id number] Maria Luz Johnson [address] [phone] 04/23/2025 14:32:25 04/23/2025 15:43:16 Lower respiratory tract infection 70896351 J22 Candidiasis of vagina 72 823655 B37.31 055245 Allergic rhinitis 908133 04 J30.9 Pain of ri ght knee joint 8553694492 58573 M25.561 022690 Ulcer of l ower extremity 08702386 L97.912 L97.922 08648903 Body mass index 30+ - obesity 422380070 Z68.32 368986 Health Concerns Section Related Observation LastModified by Organization Detangeli ls LastModified Time None Recorded Concern Status LastModified by Organization Details LastModified Time None Recorded Payers Encounter Date Sequence Insurance Name Policy Number Policy Mayorga Covered Member ID Mayorga Member ID Guarantor Name 04/23/2025 1 [employer] (MEDICARE REPLACEMENT/A DVANTAGE - HMO) Lian Bliss [id number] Lian Bliss Notes Date Note Type Note [...] pt states that the wound care at [facility] told her that she needed home health. i will refer to another wound care facility. Maria Luz Johnson APRN [address] [place], [address], [facility] [employer] 04/23/2025 16:53:01 OBGyn Episode No OBEpisode recorded.
[2025-07-14] MEDS: SODIUM FERRIC GLUCONATE IV (11:49)
[2025-07-14] MEDS: SODIUM CHLORIDE 0.9% IV (11:49)
[2025-07-14 12:00] VITALS: BP 154/93; PULSE 82; RESP 20; TEMP 36.6; O2SAT 98
[2025-07-14 13:10] VITALS: BP 134/89; PULSE 80
== END 2025-07-14 23:59 | disposition home or self-care (01) ==
LOC: INF 11:18
PROVIDERS: PCP Nurse Practitioner; Visit Provider Internal Medicine Medical Oncology
DX: D64.9 Anemia, unspecified (principal)
CPT/HCPCS: 96365; J2916

== ENCOUNTER 2025-07-21 12:59 | Outpatient (CLI) | payer MEDICARE, SELFPAY ==
[2025-07-21 13:14] VITALS: BP 124/68; PULSE 81; RESP 18; O2SAT 95
[2025-07-21] MEDS: SODIUM FERRIC GLUCONATE IV (13:14)
[2025-07-21] MEDS: SODIUM CHLORIDE 0.9% IV (13:14)
[2025-07-21 14:20] VITALS: BP 128/70; PULSE 71
[2025-07-21] MEDS: SODIUM CHLORIDE 0.9% 10ML FLUSH SYRINGE 10 ML IV (14:20)
== END 2025-07-21 23:59 | disposition home or self-care (01) ==
LOC: INF 13:00
PROVIDERS: PCP Nurse Practitioner; Visit Provider Internal Medicine Medical Oncology
DX: D64.9 Anemia, unspecified (principal)
CPT/HCPCS: 96365; J2916